=== PATIENT | male | born 1960 | race Caucasian/White ===

== ENCOUNTER 2019-06-16 17:49 | Emergency (ER) | payer MEDICAID, SELFPAY ==
[2019-06-16] VITALS (8 sets, daily range): BP systolic 119–148; BP diastolic 68–80; PULSE 65–87; RESP 16–18; TEMP 36.7; O2SAT 94–98; BMI 56.0
--- NOTE | 2019-06-16 17:57 | NURSING ---
NO OLD EKGS
--- NOTE | 2019-06-16 18:21 | EKG12_ITS ---
Test Reason : CP Blood Pressure : / mmHG Vent. Rate : 081 BPM Atrial Rate : 081 BPM P-R Int : 136 ms QRS Dur : 074 ms QT Int : 376 ms P-R-T Axes : 019 025 054 degrees QTc Int : 436 ms Sinus rhythm with Premature atrial complexes with Aberrant conduction Otherwise normal ECG Confirmed by KAVITHA LUCERO, MADELINE ([id number]), editor & co founder ELIEL DUMONT ([id number]) on 06/18/2019 10:07:57 AM Referred By: Satya Boyce Confirmed By:DARCY PLUMMER MD
--- NOTE | 2019-06-16 18:30 | RAD_ITS ---
STUDY: X-RAY CHEST REASON FOR EXAM: Male, 59 years old. Chest pain TECHNIQUE: Frontal view of the chest COMPARISON: None. FINDINGS: Pulmonary vascular prominence is present. There is no dipti edema or consolidation. There are no pleural effusions. There is no pneumothorax. The heart is enlarged. The visualized osseous structures are within normal limits. RAD/Chest 1 View (Portable) IMPRESSION: Pulmonary vascular prominence without dipti edema or consolidation. Cardiomegaly. Electronically Signed: Cayetano Steward, at 19:26 EST Tel , Service support ,
[2019-06-16] MEDS: Nitroglycerin SL (ED/IMG/CATH) 0.4 MG TABLET SUBLINGUAL ×3 (18:37→18:55)
[2019-06-16 18:39] LABS: Absolute Lymphocyte Count 2.32 X10^3/uL (0.83-4.51); Basophil# 0.06 X10^3/uL; Basophil% 0.6 % (0-1); Eosinophil# 0.19 X10^3/uL; Eosinophils% 1.9 % (0-5); Hemoglobin 10.3 g/dL (13.0-16.5); Lymphocyte # 2.32 X10^3/ul (4.0); Lymphocyte % 22.9 % (19-41); Mean Corp Hgb Conc 30.3 g/dL (32-36); Mean Corpuscular Hgb 27.4 pg (27.0-32.0); Mean Corpuscular Volume 90.4 fL (80-94); Mean Platelet Vol. 10.1 fl (6.2-12.0); Monocyte# 0.47 X10^3/uL; Monocyte% 4.6 % (0-10); NRBC Flagged by Analyzer 0 % (0-5); Neutrophil # 7.02 X10^3/uL (2.7-7.7); Neutrophil % 69.5 % (47-70); Platelet Count 250 K/mm3 (150-450); RBC Distribution Width CV 15.6 % (11.6-14.6); RBC Distribution Width SD 50.8 fl (35.1-43.9); Red Blood Count 3.76 M/mm3 (4.6-6.2); White Blood Count 10.1 K/mm3 (4.4-11.0)
[2019-06-16 19:15] LABS: Anion Gap 3 (5-15); BUN 11 mg/dL (7-18); BUN/Creat Ratio 12.1 RATIO (10-20); Chloride 109 mmol/L (98-107); Creatinine, Serum 0.91 mg/dL (0.70-1.30); EST Glomerular Filtration Rate 91 mL/min (>60); Est Glom Filt Rate - Afr Amer 111 mL/min (>60); Estimated Creatinine Clearance 77.91 ml/min; Glucose 85 mg/dL (74-106); Potassium 4.1 mmol/L (3.5-5.1); Sodium Level 139 mmol/L (136-145)
--- NOTE | 2019-06-16 22:17 | ED.DCSUM_ITS ---
- ER Visit Summary Date of Service: 06/16/19 Chief Complaint: Chest pain History of Present Illness: The patient is a 59 M who presents with chest pain that began today. Patient states he was walking when the pain began. Patient states the pain is over the left chest. Patient states he did take a sublingual nitroglycerin which did help however his pain returned after this. Patient states nothing makes it worse. Patient admits to nausea but denies any vomiting. Patient denies any diaphoresis. Patient denies any shortness of breath. Patient does admit to some palpitations. Patient denies any cough or fevers. Patient has a history of hypertension, hypercholesterolemia and coronary artery disease. Patient also has a family history of coronary artery disease. Physical Examination: Vital signs are stable. Patient is afebrile. Patient is in no acute distress. Oral mucosa is pink and moist. Neck is supple. Trachea is midline. There is no JVD noted. Heart was regular rate and rhythm. Lungs are clear and equal bilaterally. Abdomen is soft. Bowel sounds are normal. There is no tenderness. There is no rebound or guarding noted. Skin is warm dry. Cranial nerves II through XII are intact. There are no focal motor or sensory deficits noted. Extremities are intact. There is no calf tenderness or edema. Test Results: EKG showed normal sinus rhythm with a rate of 81. There is occasional PAC and PVC. There are no acute ST or T wave changes. CBC and basic metabolic profile were within normal limits. Troponin was normal. Portable chest x-ray shows mild pulmonary vascular congestion but no acute cardiopulmonary process. A delta troponin was obtained and was normal. Emergency Department Course and Treatment: Patient was advised that this is low risk for acute cardiac event. Patient was instructed to follow-up with his primary care physician and 5 to 7 days. Patient understood and was agreeable with the plan. All questions were answered. Disposition: Discharge home Impression: Chest pain of uncertain etiology This note was generated with [employer] dictation software. It may contain incorrect words, spelling, and punctuation that were not noted in review of the chart prior to signing ED Disposition - Plan for ED Patient: Disposition: Home or Assisted Living Diagnosis: Chest pain of uncertain etiology Instructions: CHEST PAIN, Uncertain Cause Referrals: Satya Boyce DO [Primary Care Provider] - 5-7 Days
== END 2019-06-16 22:47 | disposition home or self-care (01) ==
PROVIDERS: Emergency Provider Emergency Medicine; PCP Family Medicine; Referring Provider Family Medicine
DX: R07.9 Chest pain, unspecified (principal); R11.0 Nausea; I49.1 Atrial premature depolarization; I49.3 Ventricular premature depolarization; E66.9 Obesity, unspecified; I11.0 Hypertensive heart disease with heart failure; I50.9 Heart failure, unspecified; E78.00 Pure hypercholesterolemia, unspecified; I25.10 Atherosclerotic heart disease of native coronary artery without angina pectoris; K57.90 Diverticulosis of intestine, part unspecified, without perforation or abscess without bleeding; Z86.73 Personal history of transient ischemic attack (TIA), and cerebral infarction without residual deficits; Z86.711 Personal history of pulmonary embolism; Z79.82 Long term (current) use of aspirin; Z79.02 Long term (current) use of antithrombotics/antiplatelets; Z79.899 Other long term (current) drug therapy
CPT/HCPCS: 36415; 71045; 80048; 84484; 85025; 93005; 99284; A4216

== ENCOUNTER → 2022-10-24 | Outpatient (REF) | payer MEDICAID, SELFPAY ==
[2022-10-24 09:31] LABS: Erythrocyte Sedimentation Rate 42 mm/hr (0-20)
[2022-10-24 09:33] LABS: Hematocrit 35.1 % (40-54); Hemoglobin 10.5 g/dL (13.0-16.5); Mean Corp Hgb Conc 29.9 g/dL (32-36); Mean Corpuscular Hgb 28.5 pg (27.0-32.0); Mean Corpuscular Volume 95.4 fL (80-94); Mean Platelet Vol. 9.8 fl (6.2-12.0); Platelet Count 274 K/mm3 (150-450); RBC Distribution Width CV 13.6 % (11.6-14.6); RBC Distribution Width SD 47.8 fl (35.1-43.9); Red Blood Count 3.68 M/mm3 (4.6-6.2); White Blood Count 10.2 K/mm3 (4.4-11.0)
[2022-10-24 09:35] LABS: ALB/GLOB Ratio 0.7 RATIO (0.9-2.4); AST(SGOT) 13 U/L (15-37); Alanine Aminotransfer ALT/SGPT 10 U/L (16-61); Albumin, Serum 2.7 g/dL (3.2-5.0); Alkaline Phosphatase 176 U/L (45-117); Anion Gap 6 (5-15); BUN 17 mg/dL (7-18); BUN/Creat Ratio 17.8 RATIO (10-20); Calcium,Total 8.8 mg/dL (8.5-10.1); Chloride 108 mmol/L (98-107); Cholesterol 88 mg/dL (200); Creatinine, Serum 0.96 mg/dL (0.70-1.30); EST Glomerular Filtration Rate 85 mL/min (>60); Est Glom Filt Rate - Afr Amer 103 mL/min (>60); Globulin 4.1 g/dL (2.2-4.2); Glucose 146 mg/dL (74-106); High Density Lipoprotein 36 mg/dL; PSA,Total - Annual Screen 0.29 ng/mL (0.00-4.00); Potassium 4.7 mmol/L (3.5-5.1); Protein, Total 6.8 g/dL (6.4-8.2); Sodium Level 140 mmol/L (136-145); Thyroid Stim Hormone (TSH) 4.23 uIU/mL (0.358-3.74); Triglycerides 127 mg/dL; Very Low Density Lipoprotein 25 mg/dL (5-40)
[2022-10-24 09:43] LABS: Hemoglobin A1c 5.9 % (3.8-5.6)
== END | disposition home or self-care (01) ==
LOC: OLS.ACW300 05:00
PROVIDERS: PCP Family Medicine; Visit Provider Family Medicine
DX: E11.9 Type 2 diabetes mellitus without complications (principal); M54.50 Low back pain, unspecified; R27.9 Unspecified lack of coordination; E78.00 Pure hypercholesterolemia, unspecified; I67.2 Cerebral atherosclerosis; E03.9 Hypothyroidism, unspecified
CPT/HCPCS: 36415; 80053; 80061; 83036; 84153; 84443; 85027; 85652; G0103

== ENCOUNTER → 2023-04-04 | Outpatient (REF) | payer MEDICAID, SELFPAY ==
[2023-04-04 10:36] LABS: T3 Total - Triiodothyronine 0.88 ng/mL (0.6-1.81)
[2023-04-04 10:57] LABS: Thyroid Stim Hormone (TSH) 2.55 uIU/mL (0.358-3.74)
== END | disposition home or self-care (01) ==
LOC: OLS.ACW300 05:00
PROVIDERS: PCP Family Medicine; Visit Provider Family Medicine
DX: E03.9 Hypothyroidism, unspecified (principal)
CPT/HCPCS: 36415; 84436; 84443; 84480

== ENCOUNTER → 2023-08-28 | Outpatient (REF) | payer MEDICAID, SELFPAY ==
[2023-08-28 08:23] LABS: Hematocrit 37.5 % (40-54); Hemoglobin 11.9 g/dL (13.0-16.5); Mean Corp Hgb Conc 31.7 g/dL (32-36); Mean Corpuscular Hgb 30.4 pg (27.0-32.0); Mean Corpuscular Volume 95.9 fL (80-94); Mean Platelet Vol. 9.9 fl (6.2-12.0); Platelet Count 275 K/mm3 (150-450); RBC Distribution Width CV 13.1 % (11.6-14.6); Red Blood Count 3.91 M/mm3 (4.6-6.2); White Blood Count 9.3 K/mm3 (4.4-11.0)
[2023-08-28 08:41] LABS: Vitamin D,25 Hydroxy 11.8 ng/mL
[2023-08-28 09:11] LABS: ALB/GLOB Ratio 0.8 RATIO (0.9-2.4); AST(SGOT) 15 U/L (15-37); Alanine Aminotransfer ALT/SGPT 10 U/L (16-61); Albumin, Serum 3.5 g/dL (3.2-5.0); Alkaline Phosphatase 163 U/L (45-117); Anion Gap 5 (5-15); BUN 12 mg/dL (7-18); BUN/Creat Ratio 11.3 RATIO (10-20); Calcium,Total 9.1 mg/dL (8.5-10.1); Chloride 107 mmol/L (98-107); Cholesterol 102 mg/dL (200); Creatinine, Serum 1.06 mg/dL (0.70-1.30); EST Glomerular Filtration Rate 75 mL/min (>60); Est Glom Filt Rate - Afr Amer 91 mL/min (>60); Globulin 4.4 g/dL (2.2-4.2); Glucose 104 mg/dL (74-106); High Density Lipoprotein 38 mg/dL; Magnesium 2.4 mg/dL (1.6-2.6); Potassium 4.1 mmol/L (3.5-5.1); Protein, Total 7.9 g/dL (6.4-8.2); Sodium Level 138 mmol/L (136-145); Thyroid Stim Hormone (TSH) 3.03 uIU/mL (0.358-3.74); Triglycerides 122 mg/dL; Very Low Density Lipoprotein 24 mg/dL (5-40)
[2023-08-28 09:26] LABS: Hemoglobin A1c 5.3 % (3.8-5.6)
== END | disposition home or self-care (01) ==
LOC: OLS.ACW300 05:00
PROVIDERS: PCP Family Medicine; Visit Provider Family Medicine
DX: E11.9 Type 2 diabetes mellitus without complications (principal); R27.9 Unspecified lack of coordination; E78.00 Pure hypercholesterolemia, unspecified; E03.9 Hypothyroidism, unspecified; I67.2 Cerebral atherosclerosis
CPT/HCPCS: 36415; 80053; 80061; 82306; 83036; 83735; 84443; 85027

== ENCOUNTER → 2023-10-01 | Outpatient (REF) | payer MEDICAID, SELFPAY ==
[2023-10-01 07:59] LABS: T3 Total - Triiodothyronine 1.04 ng/mL (0.6-1.81)
[2023-10-01 08:12] LABS: T4 Total, Thyroxin 7.8 ug/dL (4.5-12.1); Thyroid Stim Hormone (TSH) 3.64 uIU/mL (0.358-3.74)
== END | disposition home or self-care (01) ==
LOC: OLS.ACW300 05:00
PROVIDERS: PCP Family Medicine; Visit Provider Family Medicine
DX: E03.9 Hypothyroidism, unspecified (principal)
CPT/HCPCS: 36415; 84436; 84443; 84480

== ENCOUNTER → 2024-01-05 | Outpatient (REF) | payer MEDICAID, SELFPAY ==
[2024-01-05 10:08] LABS: Thyroid Stim Hormone (TSH) 2.52 uIU/mL (0.358-3.74)
[2024-01-05 11:24] LABS: Hemoglobin A1c 5.4 % (3.8-5.6)
== END | disposition home or self-care (01) ==
LOC: OLS.ACW300 05:00
PROVIDERS: PCP Family Medicine; Visit Provider Family Medicine
DX: E11.9 Type 2 diabetes mellitus without complications (principal); Z79.899 Other long term (current) drug therapy
CPT/HCPCS: 36415; 83036; 84443

== ENCOUNTER → 2024-04-06 | Outpatient (REF) | payer MEDICAID, SELFPAY ==
[2024-04-06 11:17] LABS: Hemoglobin A1c 5.7 % (3.8-5.6)
== END | disposition home or self-care (01) ==
LOC: OLS.ACW300 04:00
PROVIDERS: PCP Family Medicine; Referring Provider Family Medicine; Visit Provider Family Medicine
DX: E11.9 Type 2 diabetes mellitus without complications (principal); Z79.899 Other long term (current) drug therapy
CPT/HCPCS: 36415; 83036

== ENCOUNTER → 2024-05-03 | Outpatient (REF) | payer MEDICAID, SELFPAY ==
[2024-05-03 08:18] LABS: Hematocrit 34.7 % (40-54); Hemoglobin 10.6 g/dL (13.0-16.5); Mean Corp Hgb Conc 30.5 g/dL (32-36); Mean Corpuscular Volume 95.1 fL (80-94); Platelet Count 246 K/mm3 (150-450); RBC Distribution Width CV 13.1 % (11.6-14.6); RBC Distribution Width SD 45.5 fl (35.1-43.9); Red Blood Count 3.65 M/mm3 (4.6-6.2); White Blood Count 8.8 K/mm3 (4.4-11.0)
[2024-05-03 08:59] LABS: T3 Total - Triiodothyronine 1.04 ng/mL (0.6-1.81)
[2024-05-03 09:01] LABS: Anion Gap 7 (5-15); BUN 17 mg/dL (7-18); BUN/Creat Ratio 16.7 RATIO (10-20); Calcium,Total 9.3 mg/dL (8.5-10.1); Chloride 107 mmol/L (98-107); Cholesterol 89 mg/dL (200); Creatinine, Serum 1.02 mg/dL (0.70-1.30); EST Glomerular Filtration Rate 79 mL/min (>60); Est Glom Filt Rate - Afr Amer 95 mL/min (>60); Glucose 121 mg/dL (74-106); High Density Lipoprotein 32 mg/dL; Potassium 4.4 mmol/L (3.5-5.1); Sodium Level 139 mmol/L (136-145); T4 Total, Thyroxin 9.3 ug/dL (4.5-12.1); Triglycerides 151 mg/dL; Very Low Density Lipoprotein 30 mg/dL (5-40)
[2024-05-03 10:00] LABS: Hemoglobin A1c 5.6 % (3.8-5.6)
== END | disposition home or self-care (01) ==
LOC: OLS.ACW300 05:00
PROVIDERS: PCP Family Medicine; Visit Provider Family Medicine
DX: E03.9 Hypothyroidism, unspecified (principal); E11.9 Type 2 diabetes mellitus without complications; R27.9 Unspecified lack of coordination; E78.00 Pure hypercholesterolemia, unspecified; I67.2 Cerebral atherosclerosis; E66.01 Morbid (severe) obesity due to excess calories
CPT/HCPCS: 36415; 80048; 80061; 83036; 84436; 84443; 84480; 85027

== ENCOUNTER → 2024-07-07 05:00 | Outpatient (REF) | payer MEDICAID, SELFPAY ==
[2024-07-07 08:33] LABS: Hemoglobin A1c 5.3 % (3.8-5.6)
== END ==
LOC: OLS.ACW300 05:00
PROVIDERS: PCP Family Medicine; Visit Provider Family Medicine
DX: E11.9 Type 2 diabetes mellitus without complications (principal); R27.9 Unspecified lack of coordination; E78.00 Pure hypercholesterolemia, unspecified; I67.2 Cerebral atherosclerosis; E03.9 Hypothyroidism, unspecified; E66.01 Morbid (severe) obesity due to excess calories
CPT/HCPCS: 36415; 83036

== ENCOUNTER → 2024-07-14 04:00 | Outpatient (REF) | payer MEDICAID, SELFPAY ==
[2024-07-14 07:53] LABS: Hemoglobin A1c 5.6 % (3.8-5.6)
== END ==
LOC: OLS.ACW300 04:00
PROVIDERS: PCP Family Medicine; Referring Provider Family Medicine; Visit Provider Family Medicine
DX: E11.9 Type 2 diabetes mellitus without complications (principal); R27.9 Unspecified lack of coordination; E78.00 Pure hypercholesterolemia, unspecified; I67.2 Cerebral atherosclerosis; E03.9 Hypothyroidism, unspecified; E66.01 Morbid (severe) obesity due to excess calories
CPT/HCPCS: 36415; 83036

== ENCOUNTER → 2024-08-27 | Outpatient (REF) | payer MEDICAID, SELFPAY ==
[2024-08-27 08:48] LABS: Vitamin D,25 Hydroxy 10.8 ng/mL (30-100)
== END | disposition home or self-care (01) ==
LOC: OLS.ACW300 05:00
PROVIDERS: PCP Family Medicine; Visit Provider Family Medicine
DX: Z79.899 Other long term (current) drug therapy (principal); E11.9 Type 2 diabetes mellitus without complications; E03.9 Hypothyroidism, unspecified; E78.00 Pure hypercholesterolemia, unspecified
CPT/HCPCS: 36415; 82306

== ENCOUNTER → 2024-10-04 | Outpatient (REF) | payer MEDICAID, SELFPAY ==
[2024-10-04 10:29] LABS: Hemoglobin A1c 5.7 % (<=5.6)
== END | disposition home or self-care (01) ==
LOC: OLS.ACW100 04:00
PROVIDERS: PCP Family Medicine; Referring Provider Family Medicine; Visit Provider Family Medicine
DX: E11.9 Type 2 diabetes mellitus without complications (principal); Z79.899 Other long term (current) drug therapy
CPT/HCPCS: 36415; 83036

== ENCOUNTER → 2024-11-01 05:00 | Outpatient (REF) | payer MEDICAID, SELFPAY ==
[2024-11-01 08:40] LABS: Hematocrit 37.1 % (40-54); Hemoglobin 11.2 g/dL (13.0-16.5); Mean Corp Hgb Conc 30.2 g/dL (32-36); Mean Corpuscular Hgb 28.7 pg (27.0-32.0); Mean Corpuscular Volume 95.1 fL (80-94); Mean Platelet Vol. 9.9 fl (6.2-12.0); Platelet Count 250 K/mm3 (150-450); RBC Distribution Width CV 13.3 % (11.6-14.6); RBC Distribution Width SD 46.6 fl (35.1-43.9); White Blood Count 9.1 K/mm3 (4.4-11.0)
[2024-11-01 09:34] LABS: Hemoglobin A1c 5.8 % (<=5.6)
[2024-11-01 10:23] LABS: Anion Gap 13 (5-15); BUN 14 mg/dL (4-19); BUN/Creat Ratio 17.1 RATIO (10-20); Calcium,Total 9.4 mg/dL (7.6-11.0); Carbon Dioxide 22.7 mmol/L (21.0-32.0); Chloride 104 mmol/L (98-108); Cholesterol 132 mg/dL (<=200); Creatinine, Serum 0.82 mg/dL (0.70-1.20); EST Glomerular Filtration Rate 99 (>60); Glucose 99 mg/dL (70-99); High Density Lipoprotein 36 mg/dL; Low Density Lipoprotein Calc. 65 mg/dL; Potassium 4.3 mmol/L (3.3-5.1); Sodium Level 140 mmol/L (133-145); T3 Total - Triiodothyronine 0.81 ng/mL (0.80-2.00); Triglycerides 156 mg/dL; Very Low Density Lipoprotein 31 mg/dL (5-40); cholesterol:hdl ratio screen 3.71
== END ==
LOC: OLS.ACW200 05:00
PROVIDERS: PCP Family Medicine; Visit Provider Family Medicine
DX: E11.9 Type 2 diabetes mellitus without complications (principal); E03.9 Hypothyroidism, unspecified; E78.00 Pure hypercholesterolemia, unspecified; E66.01 Morbid (severe) obesity due to excess calories; I67.2 Cerebral atherosclerosis
CPT/HCPCS: 36415; 80048; 80061; 83036; 84436; 84443; 84480; 85027

== ENCOUNTER → 2024-12-06 04:00 | Outpatient (REF) | payer MEDICAID, SELFPAY ==
--- OUTSIDE RECORDS SUMMARY | 2024-12-06 03:38 | XMS RPT_ITS | CCD ---
Author Organization [facility] Care Team Providers Care Curriculum Coordinator Name Role Phone Stecyk, Orest Unavailable Unavailable Stecyk, Orest Unavailable Unavailable Medina, Neelesh Unavailable Unavailable Do Hernandez Unavailable Unavailable Madhun, Zuhayr Unavailable Unavailable Ramirez Trotter Unavailable Unavailable BONYO, HERNADEZ S Unavailable Unavailable ODEBODE, MOJIBADE Unavailable Unavailable ODEBODE, MOJIBADE Unavailable Unavailable TOPARLI, CHARMAINE Unavailable Unavailable BOZORGI, ELENA Unavailable Unavailable HICKEY, RAFY O Unavailable Unavailable SUJEY, KHALEEL Unavailable Unavailable SUJEY, KHALEEL Unavailable Unavailable CECY RICHARDSON Unavailable Unavailable GODALE, LISA Unavailable Unavailable BONYO, HERNADEZ S Unavailable Unavailable Bonyo, Hernadez S Primary Care Provider [phone] BONYO, HERNADEZ S Primary Care Unavailable ESTRELLA HERNANDEZ Admitting Unavailable ESTRELLA HERNANDEZ Attending Unavailable Bonyo, Hernadez S Primary Care Provider [phone] KAR STRICKLAND Attending Unavailable PROVIDER, UNKNOWN Admitting Unavailable ALBERTO HUMPHREYS Primary Care Unavailable Carli DOSatya Primary Care Provider [phone] Satya Boyce DO Primary Care Provider Bonyo, Hernadez S Unavailable Bonyo DO, Satya Criss Primary Care Provider [phone] Bonyo DO, Satya Criss Primary Care Provider BONYO, HERNADEZ CRISS Primary Care Unavailable BONYO, HERNADEZ CRISS Primary Care Unavailable Bonyo DO, Satya Criss Primary Care Provider Bonyo DO, Hernadez S Primary Care Provider [phone] Bonyo DO, Dr. Hernadez Primary Care Provider [phone] Chuy Mariee Attending Provider Unavailabl e Chuy Mariee Referring Provider Unavailfer e Chuy Mariee Attending Unavailable Bonyo, Hernadez Primary Care Unavailable Chuy Mariee Attending Unavailable Bonyo, Hernadez Primary Care Unavailable Chuy Mariee Attending Unavailable Bonyo, Hernadez Primary Care Unavailable Chuy Mariee Referring Unavailable Chuy Mariee Attending Unavailable Bonyo, Hernadez Primary Care Unavailable Chuy Mariee Attending Unavailable Bonyo, Hernadez Primary Care Unavailable Chuy Mariee Referring Unavailable Chuy Mariee Attending Unavailable Bonyo, Hernadez Primary Care Unavailable Chuy Mariee Attending Unavailable Bonyo, Hernadez Primary Care Unavailable Chuy Mariee Attending Unavailable Bonyo, Hernadez Primary Care Unavailable Chuy Mariee Referring Unavailable Allergies Allergy Classification Reported Allergen(s) Allergy Type Date of Onset Reaction(s) Facility (2 sources) ketorolac Drug Allergy 7 [facility] Repository (1 source) nalbuphine Drug Allergy 7 [facility] Repository (3 sources) nalbuphine; Translations: [NALBUPHINE] Drug Allergy 6 [facility] Repository (13 sources) Fish derivative; Translations: [FISH DERIVED] Propensity to adverse reactions to drug (disorder) 7 [facility] Repository (20 sources) Ketorolac; Translations: [KETOROLAC TROMETHAMINE] Drug Allergy 0 [facility] Repository (20 sources) Nalbuphine; Translations: [NALBUPHINE HCL] Drug Allergy 6 Other: See Comments [facility] Other [place] Repository (8 sources) Fish-Derived Products; Translations: [FISH-DERIVED PRODUCTS] Propensity to adverse reactions to drug 6 [facility] [place], [place] (1 source) Ketorolac Drug Allergy [facility] Repository (1 source) Nalbuphine Drug Allergy [facility] Repository (4 sources) Ketorolac Drug Allergy 0 Unknown [place] (4 sources) Nalbuphine Drug Allergy 0 Unknown [place] Medications Current Medications Medication Drug Class(es) Dates Sig (Normalized) Sig (Original) acetaminophen 325 mg oral tablet (20 sources) Start: 06-17-2019 take 650 mg by mouth every four hours as needed for pain, then take 4000 mg by mouth every twenty-four hours as needed for pain 650 mg, Oral, EVERY 4 HOURS PRN, Pain Mild (1-3), Fever, pain, Starting Pauline 06/17/19 at 2307 Maximum dose of acetaminophen is 4000 mg from all sources in 24 hours. Start: 05-07-2019 take 650 mg by mouth every four hours as needed for pain, then take 4000 mg by mouth every twenty-four hours as needed for pain 650 mg, Oral, EVERY 4 HOURS PRN, Pain Mild (1-3), Starting 05/07/19 at 0633 Maximum dose of acetaminophen is 4000 mg from all sources in 24 hours. Start: 03-20-2019 take 650 mg by mouth every four hours as needed for pain, then take 4000 mg by mouth every twenty-four hours as needed for pain 650 mg, Oral, EVERY 4 HOURS PRN, Pain Moderate (4-6), Starting 03/20/19 at 1048 Maximum dose of acetaminophen is 4000 mg from all sources in 24 hours. Start: 03-09-2019 take 650 mg by mouth every four hours as needed for pain, then take 4000 mg by mouth every twenty-four hours as needed for pain 650 mg, Oral, EVERY 4 HOURS PRN, Pain Mild (1-3), Pain Moderate (4-6), Starting 03/09/19 at 0102 Maximum dose of acetaminophen is 4000 mg from all sources in 24 hours. take 2 tablets by [facility] every six hours as needed acetaminophen (TYLENOL) 325 mg tablet Take 650 mg by mouth every 6 hours as needed for Pain or Fever. 0 Active End: 01-27-2020 take 2 tablets by mouth every four hours as needed for pain acetaminophen (TYLENOL) 325 MG tablet Take 650 mg by mouth every 4 hours as needed for Pain 0 01/27/2020 Discontinued (Therapy completed) Comment on above: Take 650 mg by mouth every 6 hours as needed for Pain or Fever. acetaminophen 325 mg / HYDROcodone bitartrate 5 mg oral tablet (4 sources) Opioid Agonist take 1 tablet by mouth every eight hours as needed HYDROcodone-acet aminophen (NORCO) 5-325 mg per tablet Take 1 tablet by mouth every 8 hours as needed for pain. 0 Active Comment on above: Take 1 tablet by elzbieta th every 8 hours as needed for pain. amphetamine aspartate 5 mg / amphetamine sulfate 5 mg / dextroamphetamine saccharate 5 mg / dextroamphetamine sulfate 5 mg oral tablet (20 sources) Central Nervous System Stimulant Start: 9 End: 0 take 1 tablet by mouth twice daily Dextroamphetamin e-Amphetamine 20 MG tablet Active 20 mg PO TWICE A DAY June 16, 2019 1:00am Start: 05-19-2018 End: 2019 take 1 tablet by mouth once daily amphetamine-dextroamphetamine (ADDERALL) 20 MG tablet Indications: Mood disorder (HCC) Take 1 tablet by mouth daily for 7 days.. 7 tablet 0 05/19/2018 2019 Discontinued (LIST CLEANUP) Comment on above: Take 1 tablet by elzbieta th twice daily for 7 days. Take 1 tablet by elzbieta th twice daily for 5 days. aspirin 81 mg chewable tablet (20 sources) Platelet Aggregation Inhibitor, Nonsteroidal Anti-inflammatory Drug Start: 06-18-2019 take 81 mg by mouth once daily 81 mg, Oral, DAILY, First dose on Fri06/18/19 at 0900 Start: 06-16-2019 take 1 tablet by elzbieta th once daily Aspirin 81 MG tablet,chewable Active 81 mg PO DAILY@0800 June 16, 2019 1:00am Start: 05-07-2019 take 81 mg by mouth once daily 81 mg, Oral, DAILY, First dose on Fri05/07/19 at 0900 Start: 03-20-2019 take 81 mg by mouth once daily 81 mg, Oral, DAILY, First dose on 03/20/19 at 1115 Start: 03-09-2019 take 81 mg by mouth once daily 81 mg, Oral, DAILY, First dose on Fri03/09/19 at 0900 Start: 03-08-2019 End: 03-08-2019 aspirin EC tablet 325 mg take 1 tablet by elzbieta th once daily aspirin 81 MG tablet Take 81 mg by mouth daily. 0 Active Comment on above: Take 1 tablet by elzbieta th once daily. Pain;Safety Deficits;Decreased ActivityTolerance;Decreased Strength;Functional Mobility ImpairmentPatient /Caregiver Goals: Go To RehabGoals for Plan of Care:Transfer sit to/from stand with: Modified IndependentAmbulate with: Modified IndependentDistance: 150'Device: Wheeled WalkerAmbulate up and down steps with: Minimal AssistanceNumber of steps: 7Device: Rail;CaneRehab Potential: FairPLAN:Treatment Frequency (times per week): 3 Current admissionTreatment Interventions: Education;Functional MobilityTraining;Strengtheni ngPlan of Care developed with: PatientTREATMENT INTERVENTIONS:Therapy Diagnosis: Ataxic gaitInterventions Provided: Evaluation$ Evaluation-Moderate (35431) Billed Units: 1 unitTotal Treatment Time (minutes): 20FUNCTIONAL G CODE:PT 6 Clicks Score: 19 (06/08/18 1000)Mobility: Walking and Moving Around Current Status (G8978): CK ()Mobility: Walking and Moving Around Goal Status (G8979): CJ ()Based on clinical assessment and the score on the 6 Clicks FunctionalAssessment Tool, the G code and corresponding severity modifiers aredocumented above.SUBJECTIVE:Current Hospital Course: Chart reviewed; Patient admitted s/p fall inwhich his L LE gave out due to pain.Reason for Physical Therapy Consult : fallRelevant Past Medical History: chronic LBP, L SEAMUS, AVN of R hip, CHF, CAD,OK, obesity, HTN, back sxPatient Report: "I had one back surgery and I don't want another. Thefirst one didn't work."Home EnvironmentPatient Lives With: Self/AloneAssistance Available: NoneEntry To Home: Stairs;With RailNumber Of Stairs Into Home: 7Number Of Stairs To Bed/Bath: FlightStairs to Bed/Bath with: Unilateral RailTub/Shower Type: Tub showerLaundry: Go[facility] to [facility] Owned: Cane;Sock Aide;Shower ChairPrior Functional Level: Within Functional LimitsOBJECTIVE:CURRENT FUNCTIONAL STATUS:Current Functional Mobility Assist Level Additional InformationRolling IndependentSupine to Sit IndependentSit to Supine IndependentScooting IndependentSit to Stand Stand By AssistanceStand to Sit Stand By AssistanceBed to ChairToilet/CommodeGait Minimal Assistance Gait Device: Wheeled Walker Gait Distance (feet): 5 stepsStairsCurb StepCar TransferGait Deviations Right Lower Extremity: Step length decreasedGait Deviations Left Lower Extremity: Weight bearing decreased;Stance timedecreased;Heel strike during initial stance decreased;Push-off duringterminal stance decreasedGeneral Gait Deviations: Cecy decreasedActivity Tolerance: Standing ActivityStanding Activity: Walking and transfersStanding Activity Tolerance (in minutes): 1JH-HLM: 5: Standing (1 or more minutes)Please see discipline specific clinical documentation flowsheet forcomplete details for this therapy evaluation/treatment.SUNNY RE: Maryana Wooten PT PATIENT NAME: Natalie Botello SucciDATE: June 08, 2018 : 10:31 AM [facility] CBC and Differentialon 06-07 Abs Baso <0.03 Normal <0.11 [facility] Comment on above: Performed By: #### C BCJUANJOSE BRIONES, MG1 ####[place] [id number] [address] Abs [place] 0.18 k/uL Normal <0.87 [facility] Comment on above: Performed By: #### C BCSADEF CMP, MG1 ####[facility] [phone] Abs Neut 8.80 k/uL High 1.45-7.50 [facility] Comment on above: Performed By: #### C BCANALI, CMP, MG1 ####[place] [address] [address] [phone] Basophils/100 WBC Auto (Bld) 0.1 % [facility] Comment on above: Performed By: #### C BCDIF, CMP, MG1 ####[place] [id number] Eosinophils Auto #/vol (Bld) 10*3/uL Normal <0.46 [facility] Comment on above: Performed By: #### C BCDIF, CMP, MG1 ####[place] [id number] Eosinophils/100 WBC Auto (Bld) 0.0 % Normal [facility] Comment on above: Performed By: #### C BCDIF, CMP, MG1 ####[place] [id number] Erythrocyte distribution width Auto Ratio (RBC) 14.4 % Normal 11.5-15.0 [facility] Comment on above: Performed By: #### C BCDIF, CMP, MG1 ####[place] [id number] Hematocrit Auto Volume Fraction (Bld) 37.9 % Low 39.0-51.0 [facility] Comment on above: Performed By: #### C BCDIF, CMP, MG1 ####[place] [id number] Hemoglobin mass conc (Bld) 12.1 g/dL Low 13.0-17.0 [facility] Comment on above: Performed By: #### C BCDIF, CMP, MG1 ####[place] [id number] Lymphocytes Auto #/vol (Bld) 0.73 10*3/uL Low 1.00-4.00 [facility] Comment on above: Performed By: #### C BCDIF, CMP, MG1 ####[place] [id number] Lymphocytes/100 WBC Auto (Bld) 7.5 % Normal [facility] Comment on above: Performed By: #### C BCDIF, CMP, MG1 ####[place] [id number] MCH Auto Entitic mass (RBC) 28.2 pG Normal 26.0-34.0 [facility] Comment on above: Performed By: #### C BCDIF CMP, MG1 ####[place] [id number] MCHC Auto mass conc (RBC) 31.9 g/dL Normal 30.5-36.0 [facility] Comment on above: Performed By: #### C BCDIF, CMP, MG1 ####[place] [id number] MCV Auto Entitic volume (RBC) 88.3 fL Normal 80.0-100.0 [facility] Comment on above: Performed By: #### C BCDIF CMP, MG1 ####[place] [id number] Monocytes/100 WBC Auto (Bld) 1.9 % Normal [facility] Comment on above: Performed By: #### C BCDIF, CMP, MG1 ####[place] [id number] Neutrophils/100 WBC Auto (Bld) 90.5 % Normal [facility] Comment on above: Performed By: #### C BCDIF, CMP, MG1 ####[place] [id number] NRBCs 0.0 /100 WBC Normal 0 [facility] Comment on above: Performed By: #### C BCDIF, CMP, MG1 ####[place] [id number] Platelet mean volume Auto Entitic volume (Bld) 9.8 fL Normal 9.0-12.7 [facility] Comment on above: Performed By: #### C BCDIF, CMP, MG1 ####[place] [id number] Platelets Auto #/vol (Bld) 326 10*3/uL Normal 150-400 [facility] Comment on above: Performed By: #### C BCDIF, CMP, MG1 ####[address] RBC Auto #/vol (Bld) 4.29 10*6/uL Normal 4.20-6.00 [facility] Comment on above: Performed By: #### C BCDIF, CMP, MG1 ####[place] [id number] WBC Auto #/vol (Bld) 9.72 10*3/uL Normal 3.70-11.00 [facility] Comment on above: Performed By: #### C BCDIF, CMP, MG1 ####[place] [id number] Comp Metabolic Panelon 06-07 Albumin mass conc 4.2 g/dL Normal 3.9-4.9 [facility] Comment on above: Performed By: #### C BCDIF, CMP, MG1 ####[place] [id number] ALP enzyme act/vol 177 U/L High 38-113 [facility] Comment on above: Performed By: #### C BCDIF, CMP, MG1 ####[place] [id number] ALT enzyme act/vol 9 U/L Low 10-54 [facility] Comment on above: Performed By: #### C BCDIF, CMP, MG1 ####[place] [id number] Anion gap 3 molar conc 18 mmol/L Normal 9-18 [facility] Comment on above: Performed By: #### C BCDIF, CMP, MG1 ####[place] [id number] AST enzyme act/vol 18 U/L Normal 14-40 [facility] Comment on above: Performed By: #### C BCDIF, CMP, MG1 ####[place] [id number] Bilirubin mass conc 0.5 mg/dL Normal 0.2-1.3 [facility] Comment on above: Performed By: #### C BCDIF, CMP, MG1 ####[place] [address] [place] [id number] Calcium mass conc 9.4 mg/dL Normal 8.5-10.2 [facility] Comment on above: Performed By: #### C BCDIF, CMP, MG1 ####[place] [address] [place] [id number] Chloride molar conc 99 mmol/L Normal 97-105 [facility] Comment on above: Performed By: #### C BCDIF, CMP, MG1 ####[place] [address] [place] [id number] CO2 molar conc 24 mmol/L Normal 22-30 [facility] Comment on above: Performed By: #### C BCDIF, CMP, MG1 ####[place] [id number] Creatinine mass conc 0.74 mg/dL Normal 0.73-1.22 [facility] Comment on above: Performed By: #### C BCDIF, CMP, MG1 ####[place] [id number] eGFR- Amer. >60 Normal >60 [facility] Comment on above: Performed By: #### C BCDIF, CMP, MG1 ####[place] [id number] GFR/1.73 sq M predicted among non-blacks MDRD vol rate/area (S/P/Bld) mL/min/{1.73_m2} Normal >60 [facility] Comment on above: Result Comment: eGFR (Estimated GFR) Units of measure: mL/min/1.73 meters squaredeGFR is derived from the reexpressed MDRD Study equation using the following parameters: serum creatinine, age, gender and race. The creatinine assay has been calibrated to be traceable to IDMS.An eGFR <60 mL/min/1.73m2 for >3 months is consistent with chronic kidney disease. Refer to KDOQI guidelines for clinical interpretation.In patients with unstable renal function, e.g. those with acute kidney injury, the eGFR may not accurately reflect actual GFR. Performed By: #### C JUANJOSE STEELE, MG1 ####[place] [id number] Glucose mass conc 133 mg/dL High 74-99 [facility] Comment on above: Performed By: #### C BCJUANJOSE BRIONES, MG1 ####[place] [id number] Potassium molar conc 4.6 mmol/L Normal 3.7-5.1 [facility] Comment on above: Performed By: #### C JUANJOSE STEELE, MG1 ####[place] [id number] Protein mass conc 8.0 g/dL Normal 6.3-8.0 [facility] Comment on above: Performed By: #### C BCANALI CMP, MG1 ####[place] [id number] Sodium molar conc 141 mmol/L Normal 136-144 [facility] Comment on above: Performed By: #### C IVETTE CMP, MG1 ####[place] [id number] Urea nitrogen mass conc 18 mg/dL Normal 9-24 [facility] Comment on above: Performed By: #### C BCSADEF, CMP, MG1 ####[place] [id number] ED NOTEon 06-07-2018 ED NOTE HNO ID: [id number] Author: Faith ClearyRn) PIA Rodriguez Service: (none) Author Type: Registered Nurse Type: ED Notes Filed: 06/07/2018 3:08 PM Note Text: Report called to 4D rn all questions answered., pt to be sent upstairs with medics and belongings. [facility] ED NOTE HNO ID: [id number] Author: Faith ClearyRn) Michael RN Service: (none) Author Type: Registered Nurse Type: ED Notes Filed: 06/07/2018 2:59 PM Note Text: Labs were drawn and sent. [facility] ED NOTE HNO ID: [id number] Author: Faith ClearyRn) PIA Rodriguez Service: (none) Author Type: Registered Nurse Type: ED Notes Filed: 06/07/2018 2:59 PM Note Text: Pt refused walker [facility] ED NOTE HNO ID: [id number] thor: Cecily ClearyRn) ARBEN Edmondervice: (none)Author Type: Registered NurseType: ED NotesFiled: 06/07/2018 2:01 PMNote Text:Patient attempted to ambulate with walker. Patient able to stand butstates that he cannot take any steps. Patient states "I don't want thepain to come back". PA notified. [facility] ED NOTE HNO ID: [id number] thor: Anastasiia ClearyRn) Kathy Johnsonice: Emergency MedicineAuthor Type: Registered NurseType: ED NotesFiled: 06/07/2018 1:17 PMNote Text: Pt educated on medication and medicated per MAR. No complaints at thistime. No distress noted, safety maintained. Will continue to monitor. [facility] ED NOTE HNO ID: [id number] thor: Anastasiia Kyle) ARBEN Johnsonervice: Emergency MedicineAuthor Type: Registered NurseType: ED NotesFiled: 06/07/2018 12:09 PMNote Text:Pt arrived via EMS after falling at [facility] and hurting his back. Stateshis leg gave out and now he has shooting pain down his leg. Reportsfalling on his side and then hitting his head after falling. Deniesheadache and head pain just reporting severe back pain. [facility] ED PROV NOTEon 06-07-2018 Protein mass conc HNO ID: [id number] thor: Sky Ramirezice: Emergency MedicineAuthor Type: PhysicianType: ED Provider NotesFiled: 06/08/2018 1:54 PMNote Text:ED Provider NotePatient Name: Natalie NietoGemRN: [id number] DATE: 06/07/18HistoryPatient presents with:Back [id number] white male that presents to the emergency room via [facility] for sciatic pain. The patient states that he has chronic left sciaticpain and [facility] G[facility] out and hefell. The patient states that he did not get injured in the fall. He didstrike his head but there was no loss consciousness. He has no headacheor neck pain. The patient states that he has chronic pain from his leftsciatica and has had to be admitted in the past and sent to rehabilitationfor this. The patient also states that he has avascular necrosis to hisright hip. His left hip is artificial. Pain scale 6/10. Review of systemswere reviewed and patient denies fever, chills, headache, visual changes,neck pain or stiffness, chest pain, shortness of breath, cough, abdominalpain, nausea, vomiting, or diarrhea. Patient denies genitourinarysymptoms, skin rash or neuro deficits. Symptoms not improved with home orOTC medications. No other medical complaints or injuries. No otheraggravating or alleviating symptoms other than described as above.History provided by: Patient and EMS personnelLanguage utility locate technician used: NoPAST MEDICAL HISTORYDiagnosis Date- Arthritis- Chronic lower back pain- Congestive heart failure (HCC)- Coronary artery disease- Depression- Dyslipidemia- Heart attack (HCC) 2006- Obesity- Unspecified essential hypertensionPAST SURGICAL HISTORYProcedure Laterality Date- BACK SURGERY HX- CARDIAC CATHETERIZATION HX- CHOLECYSTECTOMY HX- HERNIA REPAIR HX- JOINT REPLACEMENT HX hip- ORTHOPEDICS SURGERY HX total hip replacement- PAST SURGICAL HISTORY OF 2004 total hip replacement leftFAMILY HISTORYProblem Relation Age of Onset- Ischemic Heart Disease Mother- Ischemic Heart Disease SisterSocial HistorySocial History Main Topics- Smoking status: Never Smoker- Smokeless tobacco: Never Used- Alcohol use No Comment: Sober for 14 yrs- Drug use: No Comment: recovered- Sexual activity: Not CurrentlyALLERGIESAllergen Reactions- Fish Derived Hives- Nubain [Nalbuphine * Feels like hes climbing acosta" per pt- Toradol [Ketorolac * Hives Pt states that he tolerates aspirinReview of SystemsHENT: Negative.Eyes: Negative.Respiratory: Negative.Cardiovascular: Negative.Gastrointestinal: Negative.Genitourinary: Negative.Musculoskeletal: Negative.Skin: Negative.Neurological: Negative.Physical ExamBP 150/74 Pulse 100 Temp (Src) 98.2 (Oral) Resp 20 Ht 5' 5"(1.65m) Wt 311 lb (141.1kg) BMI 51.75 kg/(m2).Physical ExamConstitutional: He is oriented to person, place, and time. Vital signs arenormal. He appears well-developed and well-nourished. He is active.Non-toxic appearance. He does not have a sickly appearance. He does notappear ill. He appears distressed.Morbidly obeseHENT:Head: Normocephalic and atraumatic.Nose: Nose normal.Mouth/Throat: Oropharynx is clear and moist.Eyes: Pupils are equal, round, and reactive to light. Conjunctivae and EOMare normal.Neck: Normal range of motion. Neck supple.Cardiovascular: Normal rate, regular rhythm and normal heart sounds.Pulmonary/Chest: Effort normal and breath sounds normal.Abdominal: Soft. Bowel sounds are normal.Musculoskeletal: Lumbar back: He exhibits decreased range of motion, tenderness (overleft SI joint), pain and spasm. He exhibits no bony tenderness, noswelling, no edema, no deformity, no laceration and normal pulse.Neurological: He is alert and oriented to person, place, and time. Nocranial nerve deficit.Skin: Skin is warm and dry.Psychiatric: He has a normal mood and affect.Nursing note and vitals reviewed.Diagnostic TestingED Labs Ordered and ReviewedCBC + AUTO DIFF (AK,AV,EU,FV,HL,JEFFREY,MM,SP) - Abnormal; Notable for thefollowing: Result Value Ref Range Hemoglobin 12.1 (*) 13.0 - 17.0 g/dL Hematocrit 37.9 (*) 39.0 - 51.0 % Abs Neut (ANC) 8.80 (*) 1.45 - 7.50 k/uL Abs Lymph 0.73 (*) 1.00 - 4.00 k/uL All other components within normal limitsURINALYSIS WITH MICROSCOPIC (AK,AV,EU,FV,HL,JEFFREY,MM,SP)Pro ceduresED Course / Clinical ImpressionMedicationslidocai ne 5 % 2 Patch (LIDODERM) (2 Patches TRANSDERMAL Given 06/07/18 1253)lidocaine patch - REMOVE (not administered)lidocaine - VERIFY PATCH (not administered)diazePAM 5 mg tab(s) (VALIUM) (5 mg ORAL Given 06/07/18 1253)meperidine (PF) 75 mg injection (DEMEROL) (75 mg INTRAMUSCULAR Given06/07/18 1310)NaCl 0.9% 1,000 mL iv bolus (1,000 mL INTRAVENOUS Transferred from ED06/07/18 1600)Sxs improved with the above meds but pt was unwilling to try and ambulatebecause "I don't want the pain to go back up to a ten. You need to admitme, so [facility] can [facility]."Clinical Impressions as of Jun 07 1614Sciatica of left sideIntractable painGait instabilityMorbid obesity (HCC)Elevated alkaline phosphatase levelHyperglycemiaAnemia, unspecified typeMDM / Disposition / PlanCase was discussed with Dr Jonathan Rubio in the ED, Dr Cleary for admission.Sciatica, Avasuclar Necrosis right hip, Chronic Pain, Inability toambulate, Metabolic Abnl considered as differential diagnoses. Managementdecisions include Admit.DispositionThe patient was admitted.Admitted to Regular Nursing Floor.Condition at disposition is stable and improved.SIGNATURE: Dru Oneal (Tori) Kljmhup61/06/19 1621Attending NoteI have personally performed a face to face assessment of the patient andhave reviewed the PA/FILTERS ASSEMBLER note. My rubin findings include:History is 58-year-old male presents via EMS for evaluation of left-sidedsciatica after fall. Patient states his left leg gave out and he fell.Significant injury with fall. Now has left-sided low back pain radiatingdown the posterior thigh.Exam is Heart regular. Lungs clear. Abdomen soft. Left low back painradiating down left posterior thigh. Neurovascularly intact to left lowerextremity.Assessment/Pl an are Pain improved after treatment, but patient will notput weight on his left foot. He is unable to ambulate with a walker.Fall risk. Morbidly obese. Unsteady gait. Discussed medicine.Hospitalized for further evaluation and management of left-sided sciaticawith intractable pain and gait instability with plans for PT evaluationand possible placement to intermediate facility in stable condition.Other additions or changes: NoneSignature: Oswaldo Tiago Rubio, DODate: 06/08/2018Time: 1:51 PMBenelizabethfrench Ordoñez Jimbolauren, DO06/08/18 1354 [facility] HISTORY PHYSICALon 9 HISTORY PHYSICAL HNO ID: [id number] thor: Sandhya Lockwood) CrossService: Critical CareAuthor Type: Nurse PractitionerType: HANDPFiled: 06/07/2018 5:05 PMNote Text:HISTORY AND PHYSICAL EXAMINATION *SERVICE DATE: 06/07/2018SERVICE TIME: 4:17 [facility] CARE PHYSICIAN: Boby Johnston COMPLAINT: S/p fall with back painHPI: This is a 58 year old male who [facility] [employer] Patient states his leg gave out causing him to fall onto hisside. He denies any injuries from his fall. Patient states that he hasconstant sciatic pain on the right that fluctuates in intensity. Today'jovani was so bad that he was unable to bear weight on his right sidecausing him to fall. Patient was unable to walk with walker while in theED and was therefore admitted for PT/OT evaluation and possible SNFplacement. Patient to be admitted to [facility] under Dr. Cleary.PAST MEDICAL HISTORYDiagnosis Date- Arthritis- Chronic lower back pain- Congestive heart failure (HCC)- Coronary artery disease- Depression- Dyslipidemia- Heart attack (HCC) 2006- Obesity- Unspecified essential hypertensionPAST SURGICAL HISTORYProcedure Laterality Date- BACK SURGERY HX- CARDIAC CATHETERIZATION HX- CHOLECYSTECTOMY HX- HERNIA REPAIR HX- JOINT REPLACEMENT HX hip- ORTHOPEDICS SURGERY HX total hip replacement- PAST SURGICAL HISTORY OF 2004 total hip replacement leftFamily History Reviewed Including Cardiac Diseases, Psychiatric Diseases,AND Substance AbuseProblem Relation Age of Onset- Ischemic Heart Disease Mother- Ischemic Heart Disease SisterSocial HistorySubstance Use Topics- Smoking status: Never Smoker- Smokeless tobacco: Never Used- Alcohol use No Comment: Sober for 14 yrsMEDICATIONS: Prior to Admission MedicationsPrescriptions Prior to Admission:atorvastatin (LIPITOR) 40 mg tablet Take 40 mg by mouth once daily. Disp:Rfl: 06/07/2018 at Unknown timenabumetone (RELAFEN) 500 mg tablet Take 500 mg by mouth once daily. Disp:Rfl: 06/07/2018 at Unknown timemelatonin 3 mg tablet Take 5 mg by mouth daily at bedtime. Disp: Rfl:06/06/2018 at Unknown timesenna (SENOKOT) 8.6 mg tab Take 8.6 mg by mouth once daily as needed.Disp: Rfl: 06/06/2018 at Unknown timecholecalciferol (VITAMIN D-3) 2,000 unit tablet Take 2,000 Units by mouthonce daily. Disp: Rfl: 06/07/2018 at Unknown timeDocusate Sodium 100 mg tab Take 100 mg by mouth once daily as needed.Disp: Rfl: 06/07/2018 at Unknown timeclopidogrel (PLAVIX) 75 mg tablet Take 75 mg by mouth once daily. Disp:Rfl: 06/07/2018 at Unknown timelevothyroxine (SYNTHROID) 50 mcg tablet Take 1 tablet by mouth DAILY (6AM). Disp: 90 tablet Rfl: 0 06/07/2018 at Unknown timeesomeprazole (NEXIUM) 40 mg capsule Take 40 mg by mouth once daily. Disp:Rfl: 06/07/2018 at Unknown timeQUEtiapine (SEROQUEL) 100 mg tablet Take 100 mg by mouth daily at bedtime.Disp: Rfl: 06/06/2018 at Unknown timecarvedilol (COREG) 6.25 mg tablet Take 1 tablet by mouth daily withbreakfast Disp: Rfl: 06/07/2018 at Unknown timeaspirin 81 mg chewable tablet Take 1 tablet by mouth once daily. Disp:Rfl: 0 06/07/2018 at Unknown timefurosemide (LASIX) 20 mg tablet Take 1 tablet by mouth once daily. Disp:30 tablet Rfl: 0 06/07/2018 at Unknown timelisinopril 10 mg tablet Take 1 tablet by mouth once daily. Disp: 30 tabletRfl: 0 06/07/2018 at Unknown timecitalopram (CELEXA) 20 mg tablet Take 20 mg by mouth. Disp: Rfl:traMADol (ULTRAM) 50 mg tablet Take 100 mg by mouth. Disp: Rfl:dextroamphetamine-amphet amine (ADDERALL) 20 mg tablet Take 1 tablet bymouth once daily for 30 days. Disp: 30 tablet Rfl: 0pantoprazole DR (PROTONIX) 40 mg tablet Take 1 tablet by mouth DAILY (6AM). Disp: 30 tablet Rfl: 0nitroglycerin sublingual (NITROQUICK) 0.4 mg SL tablet Dissolve 0.4 mgunder the tongue every 5 minutes as needed. Disp: Rfl: 07/18/2016 atJose timeALLERGIESAllergen Reactions- Fish Derived Hives- Nubain [Nalbuphine * Feels like hes climbing acosta" per pt- Toradol [Ketorolac * Hives Pt states that he tolerates aspirinCOMPLETE REVIEW OF SYSTEMS:GENERAL: Negative for fever.SKIN: No rashes.HEENT: No recent change in vision or hearing.NECK: Negative for pain.RESPIRATORY: Negative for cough, wheezing or shortness of breathCARDIOVASCULAR: Negative for chest pain, leg swelling or palpitations.GI: No recent nausea, vomiting or diarrhea.: Negative for incontinence and dysuria.MUSCULOSKELETAL: see HPIPSYCH: Negative for mood disorder.ENDOCRINE: Negative for goiter.NEURO: Negative for tremors or paralysis.ObjectivePHYSICAL EXAM:Patient Vitals for the past 24 hrs: BP Temp Temp src Pulse Resp SpO2 Height Koleik64/06/19 1501 120/67 36.8 ?C (98.2 ?F) Oral 90 18 98 % 165.1 cm (5' 5")(!) 141.1 kg (311 lb)06/07/18 1500 148/76 - - (!) 91 17 98 % - -06/07/18 1146 150/74 36.8 ?C (98.2 ?F) Oral (!) 100 20 97 % 165.1 cm (5'5") (!) 141.1 kg (311 lb)Body mass index is 51.75 kg/m?.PAIN: 6/10 pain to right hip down lateral right legGENERAL: Alert, cooperative.SKIN: small abrasions and scratches throughout bodyHEENT: PERRL, nasal mucosa moist, oropharynx negative.NECK: Supple, no carotid bruit.LUNGS: Clear to auscultation bilaterally.CARDIAC: RRR, normal S1 and S2.ABDOMEN: Soft, nontender, bowel sounds present.EXTREMITIES: No edema. Moves all extremities times 4.PULSES: Radial pulses 2+, DP pulses 2+.NEURO: Alert and oriented x 3, no focal deficits.DATA:Diagnostic tests reviewed for today's visit:Most recent labs and imaging results.Assessment/PlanBack pain- sciatic pain to right hip- unable to walk with walkerPlan:- admit to [facility]- lidoderm patch, tramadol, demerol for pain- consult to PT/OTHTN/ HLD/ hypothyroidism/ CHF/depression/ CAD- continue home medicationsMedication and Non-Pharmacologic VTE Prophylaxis/AnticoagulantsVT E Prophylaxis: VTE prophylaxis appropriateI personally spent 40 minutes directly supervising and providing Level 2Care exclusive of any other billable procedure.SIGNATURE: Sandhya Bashir APRN.CNP PATIENT NAME: Natalie Botello SucciDATE: June 07, 2018 : 4:16 PM PAGER: Normal [facility] HISTORY PHYSICAL HNO ID: [id number] thor: Jt ClearySer: General Internal MedicineAuthor Type: PhysicianType: HANDPFiled: 06/07/2018 7:11 PMNote Text:[facility] - History and PhysicalSUCCNATALIE German HDOB: 1960 AGE: 58 SEX: MMRN: [id number] CSN: [id number] [place] [facility] LOCATION: [address] [place] [address] PHYSICIAN: Jt Cleary M.D.ADMIT DATE: 06/07/2018CHIEF COMPLAINT: Inability to walk.HISTORY OF PRESENT ILLNESS: The patient has morbid obesity and sciaticaand disk disease and he noticed in the last few days, severe painespecially on the right side in the legs without radiation and he isunable to walk by any mean, so he was admitted for that. This happenedat time before at least.CURRENT MEDICATIONS:1. Aspirin 81 daily.2. Lipitor 40 mg daily.3. Coreg 6.25 b.i.d.4. Vitamin D3 of 2000 daily.5. Celexa 20 mg daily.6. Plavix 75 daily.7. Adderall 20 mg daily.8. Lasix 20 mg daily.9. Nexium 40 mg daily.10.Synthroid 50 mcg daily.11.Lisinopril 10 daily.12.Relafen 500 b.i.d.13.Melatonin 5 mg at bedtime.14.Protonix instead of the Nexium, if not available 40 mg daily.15.Seroquel 100 mg at bedtime.16.Tramadol 50 camilo 6 hours p.r.n.PAST MEDICAL AND PAST SURGICAL HISTORY: Morbid obesity, CVA, PE, DVT,CAD, [place], hypertension, hyperlipidemia, sleep apnea, depression,multilevel disk disease of the lumbar spine status post decompression,left hip replacement and other left leg surgery, and hypothyroidism.HABITS: Nonsmoker, no alcohol, no drugs.ALLERGIES: Tramadol and Nubain. He is allergic to fish also.FAMILY HISTORY: Noncontributory.REVIEW OF SYSTEMS: No visual complaints. No hearing complaints.No skin complaints. No chest pain. No shortness of breath. He haschronic back pain, right leg pain, difficulty walking, some edema onand off. No dysuria. The rest of the review of systems is basicallynegative except for depressed mood.PHYSICAL EXAMINATION: The patient is alert, in no acute distress. He ismorbidly obese. His BMI is 51. His vital signs are normal. Neck: Nothyromegaly, color normal. Lungs: Clear. Heart: Regular S1 and S2. Abdomen: Soft, nontender. Extremities: No edema. Neurologic isnonfocal. He has poor balance. He cannot walk, very poor range ofmotion of the lower back.LABORATORY DATA: Hematocrit and hemoglobin are slightly diminished. TheCMP is unremarkable. The most recent A1c is 5.6. The most recent TSHis normal. The urinalysis is unremarkable. The most recent lipidprofile shows slight elevation of the triglycerides.ASSESSMENT:1. Morbid obesity.2. Multilevel degenerative disk disease of the lumbar spine.3. Difficulty walking.4. Sciatica on the right.5. Coronary artery disease, stable.6. History of cerebrovascular accident, stable.PLAN: At this point in time, we will consult the PT/OT and the socialworker and control the pain and consult the bariatric surgery because heis open to the idea.Jt Cleary M.D.[facility] CrawfordsvilleKD:[id number]: 06/07/2018 17:52:51T: 06/07/2018 18:22:10Job #: [id number] [facility] Magnesiumon 06-07-2018 Magnesium mass conc 2.2 mg/dL Normal 1.7-2.3 [facility] Comment on above: Performed By: #### C BCDIF, CMP, MG1 ####[facility] [phone] NURSING PROGon 06-07-2018 Protein mass conc HNO ID: [id number] thor: Tierra (Rn) Harvey, RNService: (none)Author Type: Registered NurseType: Nursing Progress NoteFiled: 06/07/2018 11:05 PMNote Text: Nursing Progress NotePatient Name: Natalie Del ValleRN: [id number] Location: [facility]/[id number]____ Daily Note:1923: Pt refused telemetry, stated he does not want a roommate." Pt. Refused SCD's.This note was completed by: Tierra Gabriel RN [facility] PROGRESSon 06-07-2018 Protein mass conc HNO ID: [id number] Author: Jt Cleary Service: General Internal Medicine Author Type: Physician Type: Progress Notes Filed: 06/07/2018 5:53 PM Note Text: [id number] [facility] SPINE LUMBAR WO CONTRASTon 0 06-07-2018 SPINE LUMBAR WO CONTRAST *FINAL Date of Service: 06/07/2018 02:09 Adm #: [id number] Reading Dr:SHANNAN HILL Signoff Dr: SHANNAN HILL PROCEDURE: SPINE LUMBAR WO CONTRAST - T 3015 REASON FOR EXAM: low back pain RESULT: SPINE LUMBAR WO CONTRAST: 06/07/2018 2:09 AM CLINICAL INDICATION: Low back pain for one day with history of spinal fusion. COMPARISON: None. TECHNIQUE: CT axial images through the lumbar spine without contrast. Post processing sagittal and coronal reconstruction images were also performed. PATIENT RADIATION EXPOSURE DATA: CTDI (mGy): 64.00 mGy DLP (mGy/cm): 1910 mGycm FINDINGS: There is no acute fracture or bony destruction demonstrated. There is anterior wedging of the 11th thoracic vertebral body unchanged when compared with plain films of the lumbosacral spine done on 08/22/2016. Both the L3-4 and the L4-5 disc spaces are decreased in height with vacuum disc phenomenon at both levels, more pronounced at the L4-5 level. The remaining lumbar disc spaces are maintained. A grade 1 spondylolisthesis of L4 on L5 is seen with bilateral spondylolysis at this level noted. There is post operative change consisting of decompressive laminectomy at the L3-4 and the L4-5 levels. There is vacuum disc phenomenon at the T11-12 level. Anterior osteophytes are seen. There is no disc herniation, or canal or foraminal stenosis at this level. At T12-L1, anterior osteophytes are present. At L1-2, there are small anterior osteophytes noted. At L2-3, small anterior osteophytes are present. There is mild bulge of the disc with mild hypertrophy of ligamentum flavum producing mild central canal stenosis. No disc herniation is evident. At L3-4 level, decompressive laminectomy is seen. There is posterior osteophytic lipping of the endplates at this level with degenerative spondyloarthropathy noted bilaterally. The AP diameter of the thecal sac is normal but there is some decrease in the transverse diameter of the thecal sac due to the facet arthrosis and hypertrophy. Right foraminal stenosis is present. At L4-5, the transverse diameter of the thecal sac is quite narrowed due to degenerative spondyloarthropathy. There is also bilateral foraminal stenosis at this level. Bulging of the disc is seen. There has been decompressive laminectomy with the AP dimension of the thecal sac within normal limits. At the L5-S1 level, bilateral foraminal stenosis is present. There is degenerative spondyloarthropathy bilaterally. No central canal stenosis at this level is observed. IMPRESSION: Degenerative disc disease at the L3-4 and L4-5 levels with grade 1 spondylolisthesis of L4 on L5 secondary to bilateral spondylolysis. Status post decompressive laminectomy at L3-4 and L4-5 levels. Bilateral foraminal stenosis at L4-5 and L5-S1 levels with right foraminal stenosis at L3-4. Borderline to mild spinal stenosis at L2-3. There is mild stenosis with decrease in the transverse diameter of the thecal sac at the L3-4 level. There is rather pronounced spinal stenosis at the L4-5 level despite decompressive laminectomy. Bulging of the L4-5 disc is observed. No acute fracture. Preliminary interpretation provided by virtual radiologic. This report has been produced using speech recognition. This exam is available in DICOM format to non-affiliated healthcare facilities on a secure media free searchable basis with prior patient authorization. The patient exposure is reported to a radiation dose index registry. All CT examinations are performed with one or more of the following dose reduction techniques: Automated Exposure Control, Adjustment of mA and/or KV according to patient size, or use of iterative reconstruction techniques. Original Interpreting Physician: SHANNAN HILL M.D. Original Transcribed by/Date: PSCB Jun 07 2018 8:10A Original Electronically Signed by/Date: SHANNAN HILL M.D. Jun 07 2018 8:10A Addendum Interpreting Physician: Addendum Transcribed by/Date: NO ADDENDUM Addendum Electronically Signed by/Date: [facility] Urinalysis with Microscopico n 06-07-2018 Bacteria Present Critically abnormal 0 [facility] Comment on above: Performed By: #### U AWMIC ####[place] [id number] Bilirubin, Urine Small Critically abnormal Negative [facility] Comment on above: Result Comment: Sugg est correlation with clinical findings and serum bilirubin if clinically indicated. Performed By: #### U AWMIC ####[place] [id number] Cast SEE COMMENT Normal 0 [facility] Comment on above: Result Comment: 0 Performed By: #### U AWMIC ####[place] [id number] Clarity Clear Normal Clear [facility] Comment on above: Performed By: #### U AWMIC ####[place] [id number] Color Yellow Normal Yellow [facility] Comment on above: Performed By: #### U AWMIC ####[place] [id number] Glucose Ql (U) Negative Normal Negative [facility] Comment on above: Performed By: #### U AWMIC ####[place] [id number] Hemoglobin/Blood,Ur Negative Normal Negative [facility] Comment on above: Performed By: #### U AWMIC ####[place] [id number] INR Coag RelTime (Bld) 5-10 Critically abnormal 0-3 [facility] Comment on above: Performed By: #### U AWMIC ####[place] [id number] Ketones Ql (U) Trace Critically abnormal Negative [facility] Comment on above: Performed By: #### U AWMIC ####[place] [id number] Leukest Negative Normal [facility] Comment on above: Performed By: #### U AWMIC ####[place] [id number] Mucus Many Normal [facility] Comment on above: Performed By: #### U AWMIC ####[place] [id number] Nitrites Negative Normal [facility] Comment on above: Performed By: #### U AWMIC ####[place] [id number] pH 5.5 Normal 4.5-8.0 [facility] Comment on above: Performed By: #### U AWMIC ####[place] [id number] Protein, Urine Trace Critically abnormal [facility] Comment on above: Performed By: #### U AWMIC ####[place] [id number] Specific [place], Ur >=1.030 Normal 1.005-1 .03 0 [facility] Comment on above: Performed By: #### U AWMIC ####[place] [id number] Urobilinogen 0.2 Normal 0.2-1.0 [facility] Comment on above: Performed By: #### U AWMIC ####[facility] [phone] WBC 0-5 Normal 0-5 [facility] Comment on above: Performed By: #### U AWMIC ####[facility] [phone] MRA HEAD WO CONTRASTon 05-18 MRA HEAD WO CONTRAST Patient 18DOB: 1960ge: 58 yearsGender: MaleOrder Date: 05/16/2018 1:30 AMEXAM: MRA HEAD WO CONTRASTTECHNIQUE: MRA head without contrast. 211 images.INDICATION: Patient is a 58-year-old gentleman with history of CAD,hypertension, hyperlipidemia, STROKE COMPARISON: CTA head May 15, 2018FINDINGS: Superior cervical, petrous, cavernous, and supraclinoidsegments of internal carotid arteries are unremarkable. A1 and D5aohwuuup of anterior cerebral arteries and the anterior communicatingartery are unremarkable. M1 and M2 segments of middle cerebralarteries are unremarkable. Basilar artery, anterior inferior cerebellar arteries, superiorcerebellar arteries, and P1 and P2 segments of posterior cerebralarteries are unremarkable. No aneurysm, tight stenosis, or vascularmalformation.IMPRESS ION: 1. No aneurysm, tight stenosis, or vascular malformation.Interpreted by:KIKO Aponteigned by:Mireya Alex MD05/18/18inal result Normal [facility] MRI BRAIN WO CONTRASTon 05-02 MRI BRAIN WO CONTRAST Patient 816DOB: 1960ge: 58 yearsGender: MaleOrder Date: 05/16/2018 1:30 AMEXAM: MRI BRAIN WO CONTRASTNUMBER OF IMAGES: 198INDICATION: Patient is a 58-year-old gentleman with history of CAD,hypertension, hyperlipidemia, STROKE TECHNIQUE: Multiplanar, multi sequential images of the brain wereobtained without gadolinium administration. COMPARISON: CT head May 15, 2018FINDINGS: The ventricular system appears to be normal in size andconfiguration for patient's age. There are moderate periventricularand deep subcortical white matter T2 FLAIR hyperintensities with nocorresponding diffusion restriction most likely representing chronicmicrovascular ischemic disease. Small old lacunar infarct in the rightcerebellar hemisphere. No intracranial mass lesions are identified.There is no evidence of restricted diffusion to suggest acute/earlysubacute ischemic infarction. The posterior fossa contents and brainstem are unremarkable. The orbital structures, paranasal sinuses, and mastoid air cells areunremarkable.Patent flow-voids are noted within the intracranial vessels and duralvenous sinuses. The calvarium is intact.IMPRESSION: IMPRESSION:1. No evidence for acute intracranial ischemic infarct or hemorrhage.2. Mild to moderate diffuse age-related cerebral atrophy and chronicmicrovascular ischemic disease.3. Small old lacunar infarct of the right cerebellar hemisphere.Interpreted by:KIKO Aponteigned by:Mireya Alex MD05/18/18inal result Normal [facility] Basic Metabolic Panelon - Anion gap 3 molar conc 15 mmol/L Normal 7-16 [facility] Calcium mass conc 9.1 mg/dL Normal 8.6-10.2 [facility] Chloride molar conc 100 mmol/L Normal 98-107 [facility] CO2 molar conc 23 mmol/L Normal 22-29 [facility] Creatinine mass conc 0.7 mg/dL Normal 0.7-1.2 [facility] GFR/1.73 sq M predicted among blacks MDRD vol rate/area (S/P/Bld) mL/min/{1.73_m2} Normal [facility] GFR/1.73 sq M predicted among non-blacks MDRD vol rate/area (S/P/Bld) mL/min/{1.73_m2} Normal >=60 [facility] Comment on above: Result Comment: Manager Interventional amos Kidney Disease: less than 60 ml/min/1.73 sq.m. Kidney Failure: less than 15 ml/min/1.73 sq.m.Results valid for patients 18 years and older. Glucose mass conc 95 mg/dL Normal 74-99 [facility] Potassium molar conc 4.5 mmol/L Normal 3.5-5.0 [facility] Sodium molar conc 138 mmol/L Normal 132-146 [facility] Urea nitrogen mass conc 11 mg/dL Normal 6-20 [facility] Hgb A1Con 05-17-2018 Hemoglobin A1c/Hemoglobin.total mass fraction (Bld) 5.5 % Normal 4.0-5.6 [facility] Basic Metabolic Panelon 05-02 Anion gap 3 molar conc 12 mmol/L Normal 7-16 [facility] Calcium mass conc 9.0 mg/dL Normal 8.6-10.2 [facility] Chloride molar conc 101 mmol/L Normal 98-107 [facility] CO2 molar conc 24 mmol/L Normal 22-29 [facility] Creatinine mass conc 0.7 mg/dL Normal 0.7-1.2 [facility] GFR/1.73 sq M predicted among blacks MDRD vol rate/area (S/P/Bld) mL/min/{1.73_m2} Normal [facility] GFR/1.73 sq M predicted among non-blacks MDRD vol rate/area (S/P/Bld) mL/min/{1.73_m2} Normal >=60 [facility] Comment on above: Result Comment: Manager Interventional amos Kidney Disease: less than 60 ml/min/1.73 sq.m. Kidney Failure: less than 15 ml/min/1.73 sq.m.Results valid for patients 18 years and older. Glucose mass conc 129 mg/dL High 74-99 [facility] Potassium molar conc 4.1 mmol/L Normal 3.5-5.0 [facility] Sodium molar conc 137 mmol/L Normal 132-146 [facility] Urea nitrogen mass conc 10 mg/dL Normal 6-20 [facility] CBC With Platelet and Differ entialon 05-16-2018 Abs Imm Granulocytes 0.04 E9/L Normal [facility] Basophils Auto #/vol (Bld) 0.04 E9/L Normal 0.00-0.20 [facility] Basophils/100 WBC Auto (Bld) 0.5 % Normal 0.0-2.0 [facility] Eosinophils Auto #/vol (Bld) 0.13 E9/L Normal 0.05-0.50 [facility] Eosinophils/100 WBC Auto (Bld) 1.5 % Normal 0.0-6.0 [facility] Erythrocyte distribution width Auto Ratio (RBC) 14.6 fL Normal 11.5-15.0 [facility] Hematocrit Auto Volume Fraction (Bld) 38.9 % Normal 37.0-54.0 [facility] Hemoglobin mass conc (Bld) 11.8 g/dL Low 12.5-16.5 [facility] Imm Granulocytes 0.5 % Normal 0.0-5.0 [facility] Lymphocytes Auto #/vol (Bld) 1.68 E9/L Normal 1.50-4.00 [facility] Lymphocytes/100 WBC Auto (Bld) 19.1 % Low 20.0-42.0 [facility] MCH Auto Entitic mass (RBC) 28.1 pg Normal 26.0-35.0 [facility] MCHC Auto mass conc (RBC) 30.3 % Low 32.0-34.5 [facility] MCV Auto Entitic volume (RBC) 92.6 fL Normal 80.0-99.9 [facility] Monocytes Auto #/vol (Bld) 0.41 E9/L Normal 0.10-0.95 [facility] Monocytes/100 WBC Auto (Bld) 4.7 % Normal 2.0-12.0 [facility] Neutrophils Auto #/vol (Bld) 6.50 E9/L Normal 1.80-7.30 [facility] Neutrophils/100 WBC Auto (Bld) 73.7 % Normal 43.0-80.0 [facility] Platelet mean volume Auto Entitic volume (Bld) 10.2 fL Normal 7.0-12.0 [facility] Platelets Auto #/vol (Bld) 216 E9/L Normal 130-450 [facility] RBC Auto #/vol (Bld) 4.20 E12/L Normal 3.80-5.80 [facility] WBC Auto #/vol (Bld) 8.8 E9/L Normal 4.5-11.5 [facility] Lipid Panelon 05-16-2018 Cholesterol in HDL mass conc 38 mg/dL Normal >40 [facility] Cholesterol in LDL mass conc 53 mg/dL Normal 0-99 [facility] Cholesterol mass conc 115 mg/dL Normal 0-199 [facility] Triglyceride mass conc 122 mg/dL Normal 0-149 [facility] VLDL Cholesterol (Calculated) 24 mg/dL Normal [facility] Urinalysis, with microscopic on 05-16-2018 Bacteria LM.HPF #/area (Urine sed) NONE Normal [facility] RBC Test strip #/vol (U) NONE Normal 0-2 [facility] WBC #/vol (U) NONE Normal 0-5 [facility] Bilirubin Ql (U) Negative Normal Negative [facility] Clarity Nom (U) Clear Normal Clear [facility] Color Nom (U) Yellow Normal Straw/Reynolds ow [facility] Glucose Ql (U) Negative Normal Negative [facility] Hemoglobin Test strip Ql (U) Negative Normal Negative [facility] Ketones Ql (U) Negative Normal Negative [facility] Leukocyte esterase Test strip Ql (U) Negative Normal Negative [facility] Nitrite Test strip Ql (U) Negative Normal Negative [facility] pH Test strip (U) 6.0 [pH] Normal 5.0-9.0 [facility] Protein Test strip Ql (U) Negative Normal Negative [facility] Specific gravity Relative Density (U) 1.015 Normal 1.005-1.03 0 [facility] Urobilinogen Test strip Qn (U) 0.2 {Kalee'U}/dL Normal < 2.0 [facility] CBC With Platelet No Differe ntialon 05-15-2018 Erythrocyte distribution width Auto Ratio (RBC) 14.5 fL Normal 11.5-15.0 [facility] Hematocrit Auto Volume Fraction (Bld) 38.5 % Normal 37.0-54.0 [facility] Hemoglobin mass conc (Bld) 11.8 g/dL Low 12.5-16.5 [facility] MCH Auto Entitic mass (RBC) 27.6 pg Normal 26.0-35.0 [facility] MCHC Auto mass conc (RBC) 30.6 % Low 32.0-34.5 [facility] MCV Auto Entitic volume (RBC) 90.0 fL Normal 80.0-99.9 [facility] Platelet mean volume Auto Entitic volume (Bld) 10.0 fL Normal 7.0-12.0 [facility] Platelets Auto #/vol (Bld) 262 E9/L Normal 130-450 [facility] RBC Auto #/vol (Bld) 4.28 E12/L Normal 3.80-5.80 [facility] WBC Auto #/vol (Bld) 12.4 E9/L High 4.5-11.[address] [facility] [address] BRAIN PERFUSIONon 05-15- 018 CT BRAIN PERFUSION Patient 6DOB: 2Age: 58 yearsGender: MaleOrder Date: 05/15/2018 8:15 PMEXAM: CT BRAIN PERFUSIONTECHNIQUE: After IV contrast administration sequential axial imageswere obtained with continuous acquisition of the areas of interest ofthe brain for generation of color map images for MTT, CBF and CBV andalso for tissue characterization. The study was performed on a CT scanwith dose reduction technique. Low-dose CT acquisition techniqueincluded one of following options; 1 . Automated exposure control, 2.Adjustment of MA and or KV according to patient's size or 3. Use ofiterative reconstruction.INDICATION: Patient is a 58-year-old gentleman with FOCAL NEURODEFICIT, NEW, FIXED OR WORSENING, LESS THAN 3 HOURS COMPARISON: NoneFINDINGS: There is fairly uniform and symmetric mean transit time ,cerebral blood flow and cerebral blood volume of the cerebral andcerebellar hemispheres. No identifiable findings to support ischemiaor infarct.IMPRESSION: 1. No significant findings to indicate ischemia or infarct.Interpreted by:KIKO Aponteigned by:Mireya Alex MD05/15/18Final result Normal [facility] CT HEAD WO CONTRASTon 2017 CT HEAD WO CONTRAST Patient 6DOB: 1960ge: 58 yearsGender: MaleOrder Date: 05/15/2018 8:15 PMEXAM: CT HEAD WO CONTRASTNUMBER OF IMAGES: 33 INDICATION: Patient is a 58-year-old gentleman with history of focalneuro deficit, cva COMPARISON: CT head October 20, 2013TECHNIQUE: Multiple axial images were obtained from base of the skullto the vertex without administration of IV contrast. Sagittal andcoronal reconstructions were performed. The study was performed on [employer] with dose reduction technique. Low-dose CT acquisitiontechnique included one of following options; 1 . Automated exposurecontrol, 2. Adjustment of MA and or KV according to patient's size or3. Use of iterative reconstruction.FINDINGS: The ventricular system is normal in size and shape forpatient's age. Small old lacunar infarct in the right cerebellarhemisphere posteriorly. No intraventricular or intraparenchymal bleed. No abnormal extra-axial fluid collection is seen. There is noevidence for mass or mass effect. Basilar cisterns are patent. Nomidline shift is identified.Visualized orbital structures and paranasal sinuses are grosslyunremarkable. No evidence of an acute osseous injury is identified.IMPRESSION: 1. No identifiable acute intracranial process.Interpreted by:KIKO Aponteigned by:Mireya Alex MD05/15/18inal result Normal [facility] CTA HEAD W CONTRASTon 2017 CTA HEAD W CONTRAST Patient 6DOB: 2Age: 58 yearsGender: MaleOrder Date: 05/15/2018 8:15 PMEXAM: CTA HEADNUMBER OF IMAGES: [id number]: Patient is a 58-year-old gentleman with history of neurodiffusely, concern for STROKE COMPARISON: NoneTECHNIQUE: Contiguous axial images of the head were obtained followingintravenous contrast using standard CT angiographic protocol. Sagittal and coronal 2D images were reconstructed from the axialacquisition. Additional MIP reconstructions were presented to aid inthe interpretation of this exam. This study was performed on [employer] with dose reduction technique. Low-dose CT acquisitiontechnique included one of following options; 1 . Automated exposurecontrol, 2. Adjustment of MA and or KV according to patient's size or3. Use of iterative reconstruction.FINDINGS: Superior cervical, petrous, cavernous, and supraclinoidsegments of internal carotid arteries are unremarkable. A1 and [id number] of anterior cerebral arteries and the anterior communicatingartery are unremarkable. M1 and M2 segments of middle cerebral arteries are unremarkable. Basilar artery, anterior inferior cerebellar arteries, superiorcerebellar arteries, and P1 and P2 segments of posterior cerebralarteries are unremarkable. No aneurysm, tight stenosis, or vascularmalformation.Superio r and inferior sagittal sinuses, transverse and sigmoid sinusesare patent.Non contrast images of the brain show no acute intracranial process.IMPRESSION: 1. No aneurysm, tight stenosis, or vascular malformation.Interpreted by:KIKO Aponteigned by:Mireya Alex MD05/15/18inal result Normal [facility] CTA NECK W CONTRASTon 2017 CTA NECK W CONTRAST Patient 6DOB: 2Age: 58 yearsGender: MaleOrder Date: 05/15/2018 8:15 PMEXAM: CTA NECK W CONTRASTNUMBER OF IMAGES: [id number]: Patient is a 58-year-old gentleman with neuro diffusely,?STROKE COMPARISON: NoneTECHNIQUE: Multiple axial images of the neck were obtained with bolusadministration of IV contrast. Sagittal and coronal 2D reconstructionswere performed. Maximum intensity projections and 3-D surface renderedreconstructions were performed for angiographic evaluation. The studywas performed on a CT scanner with dose reduction technique. Low-doseCT acquisition technique included one of following options; 1 .Automated exposure control, 2. Adjustment of MA and or KV according topatient's size or 3. Use of iterative reconstruction.FINDINGS: Visualized aortic arch and supra-aortic great arteries areunremarkable. Both common carotid arteries are patent with nosignificant plaque deposition, aneurysm or stenosis.Both carotid bifurcation are well demonstrated. Mild to moderateatherosclerotic soft and calcified plaque deposition on the right. Nosignificant plaque deposition on the left.Both internal carotid arteries are patent with no significantstenosis, aneurysm or dissection.Both vertebral arteries are patent. There are symmetric in size. Nosignificant plaque deposition, aneurysm or stenosis.IMPRESSION: CT angiography of the neck showing no evidence of significant stenosisof the major cervical arteries.Interpreted by:KIKO Aponteigned by:Mireya Alex MD05/15/18Final result Normal [facility] Comprehensive Metabolic Pane yoni 05-15-2018 Albumin mass conc 3.9 g/dL Normal 3.5-5.2 [facility] ALP enzyme act/vol 170 U/L High 40-129 [facility] ALT enzyme act/vol 9 U/L Normal 0-40 [facility] Anion gap 3 molar conc 12 mmol/L Normal 7-16 [facility] AST enzyme act/vol 13 U/L Normal 0-39 [facility] Bilirubin mass conc 0.3 mg/dL Normal 0.0-1.2 [facility] Calcium mass conc 8.9 mg/dL Normal 8.6-10.2 [facility] Chloride molar conc 99 mmol/L Normal 98-107 [facility] CO2 molar conc 24 mmol/L Normal 22-29 [facility] Creatinine mass conc 0.7 mg/dL Normal 0.7-1.2 [facility] GFR/1.73 sq M predicted among blacks MDRD vol rate/area (S/P/Bld) mL/min/{1.73_m2} Normal [facility] GFR/1.73 sq M predicted among non-blacks MDRD vol rate/area (S/P/Bld) mL/min/{1.73_m2} Normal >=60 [facility] Comment on above: Result Comment: Manager Interventional amos Kidney Disease: less than 60 ml/min/1.73 sq.m. Kidney Failure: less than 15 ml/min/1.73 sq.m.Results valid for patients 18 years and older. Glucose mass conc 117 mg/dL High 74-99 [facility] Potassium molar conc 4.2 mmol/L Normal 3.5-5.0 [facility] Protein mass conc 7.2 g/dL Normal 6.4-8.3 [facility] Sodium molar conc 135 mmol/L Normal 132-146 [facility] Urea nitrogen mass conc 11 mg/dL Normal 6-20 [facility] METER GLUCOSEon 05-15-2018 Glucose mass conc 102 mg/dL High 74-99 [facility] Partial Thromboplastin Timeo n 05-15-2018 aPTT Coag time (Bld) 29.8 s Normal 24.5-35.1 [facility] Prothrombin Timeon 8 INR Coag RelTime (PPP) 0.9 {INR} Normal [facility] Prothrombin time (PT) Coag time (PPP) 10.9 s Normal 9.3-12.4 [facility] Troponinon 05-15-2018 Troponin I.cardiac mass conc ng/mL Normal 0.00-0.03 [facility] Comment on above: Result Comment: TROP ONIN T BLOOD LEVELS: 0.03 ng/mL Upper Reference Limit0.04 - 0.09 ng/mL Possible myocardial injury >= 0.10 ng/mL Myocardial injury XR CHEST PORTABLEon 05-15-20 18 XR CHEST PORTABLE EXAMINATION: CHEST RADIOGRAPH (SINGLE VIEW AP OR PA)Patient : 1960ge: 58 yearsGender: MaleOrder Date: 05/15/2018 8:45 PMEXAM: XR CHEST PORTABLENUMBER OF IMAGES \\ views: 1INDICATION: stroke like symptoms stroke like symptomsCOMPARISON: 07/24/2014 RESULT: See IMPRESSION. IMPRESSION: Lines, tubes, and devices: None.Lungs and pleura: Bibasilar atelectasis. No consolidation. No lungmass. No pleural effusion. Cardiomediastinal silhouette: Unchanged cardiomediastinal silhouette.Other:Interpreted by:Michael Swanson, DOSigned by:Michael Swanson, DO18Final result Normal [facility] General Medical Progress Not clovis 03-04-2018 Protein mass conc [facility] Patient: NATALIE GERBER [address] MR#: [id number] [place], [place] [address] : 1960 [address] [place]: Dept: PDOC [place] [facility] [id number] General Medical Progress Note Service Dt: 03/04/18 Report#: [id number] Adm Dt: 02/24/18 Dis Dt: General-Medical Progress Note - Patient Visit Reason Visit Reason: PARESTHESIA, DYSPNEA - Chief Complaint Chief Complaint: LUE and facial numbness - Subjective Narrative HPI/ROS: right shoulder pain - Review of Systems All systems: 10 point review of systems negative except for what is stated in HPI - I O/Vital Signs I O/VS: Vital Signs Temp 36.5 C 03/04/18 05:29 Pulse 64 03/04/18 08:44 Resp 16 03/04/18 05:29 BP 142/78 H 03/04/18 08:44 Pulse Ox 97 03/04/18 05:29 Intake Output 03/03/18 03/03/18 03/04/18 11:59 23:59 11:59 Intake Total 260 640 400 Balance 260 640 400 Intake: Oral 260 640 400 - Patient Exam General appearance: alert Limitations: Positive: no limitations Head: Positive: normal inspection Eyes: Positive: normal appearance Pupils: Positive: equal and reactive ENT: Positive: normal exam Neck: Positive: normal inspection Respiratory: Positive: normal lung sounds bilaterally Cardiovascular: Positive: regular rate, normal rhythm, normal heart sounds GI/Abdominal: Positive: soft, nontender, normal bowel sounds Extremities: Positive: negative jordan's sign bilaterally Neurological: Positive: alert Integumentary: Positive: no rash - Lab Diagnostic Data Diagrams: 02/25/18 07:10 02/25/18 07:10 Chemistry: Chemistry (Last 24hrs) 03/04/18 03/03/18 03/03/18 07:39 16:07 11:06 POC Glucose 113 H 105 93 - Medications Meds: Current Medications Acetaminophen (Tylenol) 650 mg PO Q4 PRN PRN Reason: Pain (mild)/Temp above 38.3 C Alprazolam (Xanax) 0.25 mg PO TID PRN PRN Reason: Anxiety Last Admin: 03/03/18 21:31 Dose: 0.25 mg Aspirin (Aspirin, "Baby" (Chewable)) 81 mg PO DAILY [facility] Last Admin: 03/04/18 08:44 Dose: 81 mg Carvedilol (Coreg) 6.25 mg PO DAILY [facility] Last Admin: 03/04/18 08:43 Dose: 6.25 mg Clopidogrel Bisulfate (Plavix) 75 mg PO DAILY [facility] Last Admin: 03/04/18 08:44 Dose: 75 mg Cyanocobalamin (Vitamin B-12) 1,000 mcg PO DAILY [facility] Last Admin: 03/04/18 08:45 Dose: 1,000 mcg Dextrose (Dextrose Syringe) 25 ml IV Q15M PRN PRN Reason: Hypoglycemia Dextrose (Dextrose Syringe) 50 ml IV Q15M PRN PRN Reason: Hypoglycemia Dextrose (Instant Glucose) 37.5 g PO Q15M PRN PRN Reason: Hypoglycemia Enoxaparin Sodium (Lovenox) 40 mg SC DAILY [facility] Last Admin: 03/04/18 08:45 Dose: 40 mg Furosemide (Lasix) 20 mg PO DAILY [facility] Last Admin: 03/04/18 08:45 Dose: 20 mg Gabapentin (Neurontin) 400 mg PO DAILY [facility] Last Admin: 03/04/18 08:49 Dose: 400 mg Glucagon (Glucagon) 1 mg IM Q15M PRN PRN Reason: Hypoglycemia Levothyroxine Sodium (Synthroid) 50 mcg PO QDSYNTH [facility] Last Admin: 03/04/18 05:27 Dose: 50 mcg Lisinopril (Zestril/Prinivil) 5 mg PO DAILY [facility] Last Admin: 03/04/18 08:44 Dose: 5 mg Melatonin (Melatonin) 3 mg PO QHS [facility] Last Admin: 03/03/18 21:30 Dose: 3 mg Metformin HCl (Glucophage Xr) 500 mg PO 0800,1700 [facility] Last Admin: 03/04/18 08:42 Dose: Not Given Methylphenidate HCl (Ritalin) 40 mg PO DAILY [facility] Last Admin: 03/04/18 08:43 Dose: 40 mg Nitroglycerin (Nitrostat) 400 mcg SL Q5M PRN PRN Reason: Chest Pain Ondansetron HCl (Zofran Odt) 4 mg PO Q6 PRN PRN Reason: Nausea/vomiting Oxycodone/Acetaminophen (Percocet) 2 tab PO Q6 PRN PRN Reason: Pain-moderate (4-6/10) Last Admin: 03/04/18 09:35 Dose: 2 tab Pantoprazole Sodium (Protonix) 40 mg PO DAILY [facility] Last Admin: 03/04/18 08:45 Dose: 40 mg Quetiapine Fumarate (Seroquel) 100 mg PO QHS [facility] Last Admin: 03/03/18 21:30 Dose: 100 mg Senna/Docusate Sodium (Senokot-S) 1 tab PO DAILY [facility] Last Admin: 03/04/18 08:45 Dose: 1 tab Simvastatin (Zocor) 40 mg PO QHS [facility] Last Admin: 03/03/18 21:30 Dose: 40 mg Vitamin D (Vitamin D) 2,000 units.intl PO DAILY [facility] Last Admin: 03/04/18 08:44 Dose: 2,000 units.intl Allergies/Adv: Allergies Allergy/AdvReac Type Severity Reaction Status Date / Time ketorolac Allergy Severe Hives Verified 08/02/16 23:25 nalbuphine Allergy Severe Shortness Verified 08/02/16 23:25 of Breath nalbuphine HCl * Allergy Unknown Verified 10/08/16 21:16 [facility] - Assessment/Plan (1) Facial paresthesia Status: Acute (2) Arm paresthesia, left Status: Acute (3) DVT prophylaxis Status: Acute (4) Dyspnea Status: Acute (5) Morbid obesity Status: Acute (6) Diabetes Status: Chronic Qualifiers: Diabetes mellitus type: type 2 Diabetes mellitus prison insulin use: without prison use (7) CHF exacerbation Status: Suspected Qualifiers: Heart failure type: unspecified Qualified Code(s): I50.9 - Heart failure, unspecified (8) Chronic back pain Status: Chronic Qualifiers: Back pain location: back pain in unspecified location Back pain laterality: midline Qualified Code(s): M54.9 - Dorsalgia, unspecified (9) GERD (gastroesophageal reflux disease) Status: Chronic Qualifiers: Esophagitis presence: esophagitis presence not specified Qualified Code(s): K21.9 - Gastro-esophageal reflux disease without esophagitis (10) HLD (hyperlipidemia) Status: Chronic Qualifiers: Hyperlipidemia type: unspecified Qualified Code(s): E78.5 - Hyperlipidemia, unspecified (11) Hypothyroidism Status: Chronic Qualifiers: Hypothyroidism type: acquired Qualified Code(s): E03.9 - Hypothyroidism, unspecified (12) Shoulder pain, right Status: Acute (13) Rotator cuff arthropathy Status: Acute - Comments Impression: 02/24/18 16:38 Parasthesias, etiology uncertain. Many co-morbidities. See orders for 4rx plan. 02/25/18 11:25 Consults appreciated, w/u continues 02/27/18 08:44 Waiting for insurance approval for ecf, discharge delayed for this reason. 02/28/18 09:06 waiting for insurance approval 03/01/18 07:57 Waiting for ecf approval 03/02/18 08:34 xray and Orthopedic consult for right shoulder pain. 03/04/18 10:24 discharge to home, f/u as outpt in [place], [place] - Patient Time (minutes) Time Spent w/Patient: 31 Normal [facility] Glucose, Point of Careon Glucose mass conc 113 mg/dL High 80-110 [facility] Comment on above: Performed By: #### C BC, BMP, TROP, BNP, TSH ####[facility] [place] [address] Glucose mass conc 113 mg/dL High 80-110 [facility] Comment on above: Performed By: #### C BC, BMP, TROP, BNP, TSH ####[facility] [place] [id number] Orthopedic Progress Noteon 1 Protein mass conc [facility] Patient: NATALIE GERBER [address] [facility] MR#: [id number] [place], [place] [address] : 1960 Ord. : Dept: PDOC [place] [facility] [id number] Orthopedic Progress Note Service Dt: 03/04/18 Report#: [id number] Adm Dt: 02/24/18 Dis Dt: Orthopedic Progress Note - Patient Visit Reason Visit Reason: PARESTHESIA, DYSPNEA - Chief Complaint Chief Complaint: LUE and facial numbness - Lab Diagnostic Data Diagrams: 02/25/18 07:10 02/25/18 07:10 Chemistry: Chemistry (Last 24hrs) 03/03/18 03/03/18 16:07 11:06 POC Glucose 105 93 - Medications Meds: Current Medications Acetaminophen (Tylenol) 650 mg PO Q4 PRN PRN Reason: Pain (mild)/Temp above 38.3 C Alprazolam (Xanax) 0.25 mg PO TID PRN PRN Reason: Anxiety Last Admin: 03/03/18 21:31 Dose: 0.25 mg Aspirin (Aspirin, "Baby" (Chewable)) 81 mg PO DAILY [facility] Last Admin: 03/03/18 08:58 Dose: 81 mg Carvedilol (Coreg) 6.25 mg PO DAILY [facility] Last Admin: 03/03/18 08:58 Dose: 6.25 mg Clopidogrel Bisulfate (Plavix) 75 mg PO DAILY [facility] Last Admin: 03/03/18 08:55 Dose: 75 mg Cyanocobalamin (Vitamin B-12) 1,000 mcg PO DAILY [facility] Last Admin: 03/03/18 08:58 Dose: 1,000 mcg Dextrose (Dextrose Syringe) 25 ml IV Q15M PRN PRN Reason: Hypoglycemia Dextrose (Dextrose Syringe) 50 ml IV Q15M PRN PRN Reason: Hypoglycemia Dextrose (Instant Glucose) 37.5 g PO Q15M PRN PRN Reason: Hypoglycemia Enoxaparin Sodium (Lovenox) 40 mg SC DAILY [facility] Last Admin: 03/03/18 08:58 Dose: 40 mg Furosemide (Lasix) 20 mg PO DAILY [facility] Last Admin: 03/03/18 08:58 Dose: 20 mg Gabapentin (Neurontin) 400 mg PO DAILY [facility] Last Admin: 03/03/18 08:55 Dose: 400 mg Glucagon (Glucagon) 1 mg IM Q15M PRN PRN Reason: Hypoglycemia Levothyroxine Sodium (Synthroid) 50 mcg PO QDSYNTH [facility] Last Admin: 03/04/18 05:27 Dose: 50 mcg Lisinopril (Zestril/Prinivil) 5 mg PO DAILY [facility] Last Admin: 03/03/18 09:10 Dose: 5 mg Melatonin (Melatonin) 3 mg PO QHS [facility] Last Admin: 03/03/18 21:30 Dose: 3 mg Metformin HCl (Glucophage Xr) 500 mg PO 0800,1700 [facility] Last Admin: 03/03/18 16:38 Dose: Not Given Methylphenidate HCl (Ritalin) 40 mg PO DAILY [facility] Last Admin: 03/03/18 10:12 Dose: 40 mg Nitroglycerin (Nitrostat) 400 mcg SL Q5M PRN PRN Reason: Chest Pain Ondansetron HCl (Zofran Odt) 4 mg PO Q6 PRN PRN Reason: Nausea/vomiting Oxycodone/Acetaminophen (Percocet) 2 tab PO Q6 PRN PRN Reason: Pain-moderate (4-6/10) Last Admin: 03/04/18 03:24 Dose: 2 tab Pantoprazole Sodium (Protonix) 40 mg PO DAILY [facility] Last Admin: 03/03/18 08:55 Dose: 40 mg Quetiapine Fumarate (Seroquel) 100 mg PO QHS [facility] Last Admin: 03/03/18 21:30 Dose: 100 mg Senna/Docusate Sodium (Senokot-S) 1 tab PO DAILY [facility] Last Admin: 03/03/18 08:58 Dose: 1 tab Simvastatin (Zocor) 40 mg PO QHS [facility] Last Admin: 03/03/18 21:30 Dose: 40 mg Vitamin D (Vitamin D) 2,000 units.intl PO DAILY [facility] Last Admin: 03/03/18 08:56 Dose: 2,000 units.intl Allergies/Adv: Allergies Allergy/AdvReac Type Severity Reaction Status Date / Time ketorolac Allergy Severe Hives Verified 08/02/16 23:25 nalbuphine Allergy Severe Shortness Verified 08/02/16 23:25 of Breath nalbuphine HCl * Allergy Unknown Verified 10/08/16 21:16 [From [facility]] - Comments Impression Comments: 03/04/18 07:31 Patient's complaints regarding her right shoulder unchanged. Pain and stiffness continue. Active and assisted elevation about 90?. Arthrogram consistent with adhesive capsulitis and possibly a small rotator cuff tear. Arthrogram findings reviewed. Recommend against surgical management at this time. Instead, patient would benefit from aggressive physical therapy for treatment of the adhesive capsulitis. Once he regains adequate motion and if pain persists, then one might consider repair of the rotator cuff. I suspect that once the capsulitis is resolved, symptoms will subside and surgery won't be necessary. Plan for discharge soon. Physical therapy as outpatient. Orthopedic follow-up as needed. Normal [facility] Arthrogram Shoulder Righton 03-03-2018 Arthrogram Shoulder [facility] Patient: NATALIE GERBER [address] [facility] MR#: [id number] [place], [place] [address] : 1960 Ord. : Thierno Thakkar MD Dept: Diagnostic Imaging [place] [facility] [id number] DI REPORT Service Dt:03/03/18 Report#: [id number] Adm Dt: 02/24/18 Dis Dt: Comments: STUDY: CR Arthrogram Shoulder Right; 03/03/2018 3:10 pm INDICATION: rotator cuff tear;adhessive capsulitis/tendinitis. COMPARISON: None. ACCESSION NUMBER(S): [id number] ORDERING CLINICIAN: Thierno Thakkar TECHNIQUE: Right shoulder arthrogram. The procedure was explained to the patient in written, informed consent was obtained. Patient was placed supine on the fluoroscopic table. The skin along the anterior aspect of the right shoulder was cleansed with alcohol and locally anesthetized with lidocaine. Order fluoroscopic guidance, a 20 gauge needle was placed into the right glenohumeral joint. Approximately 8 cc of Conray was injected. Following this, the needle was removed. Patient tolerated the procedure without any complication. FINDINGS: There is contrast in the right glenohumeral joint. There are multiple linear channels to the subacromial space consistent with a rotator cuff tear of the supraspinatus tendon. Also note is made of irregularity and deformity of the capsule consistent with adhesive capsulitis. IMPRESSION: 1. Rotator cuff tear with extension of contrast superior to the supraspinatus tendon. 2. Adhesive capsulitis. Dictated by: Mely Chi Electronically Signed by: Mely Chi 03/03/2018 4:02 PM Normal [facility] General Medical Progress Not clovis 03-03-2018 Protein mass conc [facility] Patient: NATALIE GERBER [address] MR#: [id number] [place], [place] [address] : 1960 Ord. : Dept: [place]OC [place] [facility] [id number] General Medical Progress Note Service Dt: 03/03/18 Report#: [id number] Adm Dt: 02/24/18 Dis Dt: 03/04/18 General-Medical Progress Note - Patient Visit Reason Visit Reason: PARESTHESIA, DYSPNEA - Chief Complaint Chief Complaint: LUE and facial numbness - I O/Vital Signs I O/VS: Vital Signs Temp 36.3 C L 03/02/18 22:00 Pulse 66 03/02/18 22:00 Resp 18 03/02/18 22:00 BP 99/55 L 03/02/18 22:00 Pulse Ox 100 03/02/18 22:00 Intake Output 03/02/18 03/02/18 03/03/18 11:59 23:59 11:59 Intake Total 740 Balance 740 Weight 146.5 kg Intake: Oral 740 Other: Height 1.65 m - Lab Diagnostic Data Diagrams: 02/25/18 07:10 02/25/18 07:10 Chemistry: Chemistry (Last 24hrs) 03/02/18 03/02/18 16:16 11:44 POC Glucose 92 91 - Medications Meds: Current Medications Acetaminophen (Tylenol) 650 mg PO Q4 PRN PRN Reason: Pain (mild)/Temp above 38.3 C Alprazolam (Xanax) 0.25 mg PO TID PRN PRN Reason: Anxiety Last Admin: 03/02/18 12:55 Dose: 0.25 mg Aspirin (Aspirin, "Baby" (Chewable)) 81 mg PO DAILY [facility] Last Admin: 03/02/18 08:18 Dose: 81 mg Carvedilol (Coreg) 6.25 mg PO DAILY [facility] Last Admin: 03/02/18 08:18 Dose: 6.25 mg Clopidogrel Bisulfate (Plavix) 75 mg PO DAILY [facility] Last Admin: 03/02/18 08:18 Dose: 75 mg Cyanocobalamin (Vitamin B-12) 1,000 mcg PO DAILY [facility] Last Admin: 03/02/18 08:18 Dose: 1,000 mcg Dextrose (Dextrose Syringe) 25 ml IV Q15M PRN PRN Reason: Hypoglycemia Dextrose (Dextrose Syringe) 50 ml IV Q15M PRN PRN Reason: Hypoglycemia Dextrose (Instant Glucose) 37.5 g PO Q15M PRN PRN Reason: Hypoglycemia Enoxaparin Sodium (Lovenox) 40 mg SC DAILY [facility] Last Admin: 03/02/18 08:18 Dose: 40 mg Furosemide (Lasix) 20 mg PO DAILY [facility] Last Admin: 03/02/18 08:18 Dose: 20 mg Gabapentin (Neurontin) 400 mg PO DAILY [facility] Last Admin: 03/02/18 08:16 Dose: 400 mg Glucagon (Glucagon) 1 mg IM Q15M PRN PRN Reason: Hypoglycemia Levothyroxine Sodium (Synthroid) 50 mcg PO QDSYNTH [facility] Last Admin: 03/02/18 05:19 Dose: 50 mcg Lisinopril (Zestril/Prinivil) 5 mg PO DAILY [facility] Last Admin: 03/02/18 08:24 Dose: 5 mg Melatonin (Melatonin) 3 mg PO QHS [facility] Last Admin: 03/02/18 20:20 Dose: 3 mg Metformin HCl (Glucophage Xr) 500 mg PO 0800,1700 [facility] Last Admin: 03/02/18 17:15 Dose: Not Given Methylphenidate HCl (Ritalin) 40 mg PO DAILY [facility] Last Admin: 03/02/18 10:22 Dose: 40 mg Nitroglycerin (Nitrostat) 400 mcg SL Q5M PRN PRN Reason: Chest Pain Oxycodone/Acetaminophen (Percocet) 2 tab PO Q6 PRN PRN Reason: Pain-moderate (4-6/10) Last Admin: 03/03/18 02:25 Dose: 2 tab Pantoprazole Sodium (Protonix) 40 mg PO DAILY [facility] Last Admin: 03/02/18 08:18 Dose: 40 mg Quetiapine Fumarate (Seroquel) 100 mg PO QHS [facility] Last Admin: 03/02/18 20:20 Dose: 100 mg Senna/Docusate Sodium (Senokot-S) 1 tab PO DAILY [facility] Last Admin: 03/02/18 08:18 Dose: 1 tab Simvastatin (Zocor) 40 mg PO QHS [facility] Last Admin: 03/02/18 20:20 Dose: 40 mg Vitamin D (Vitamin D) 2,000 units.intl PO DAILY [facility] Last Admin: 03/02/18 08:18 Dose: 2,000 units.intl Allergies/Adv: Allergies Allergy/AdvReac Type Severity Reaction Status Date / Time ketorolac Allergy Severe Hives Verified 08/02/16 23:25 nalbuphine Allergy Severe Shortness Verified 08/02/16 23:25 of Breath nalbuphine HCl * Allergy Unknown Verified 10/08/16 21:16 [facility] - Assessment/Plan (1) Shoulder pain, right Status: Acute (2) Diabetes Status: Chronic Qualifiers: Diabetes mellitus type: type 2 Diabetes mellitus prison insulin use: without prison use (3) Paresthesia and pain of left extremity Status: Acute - Comments Impression: 03/03/18 05:42 stable doing well MRI pending today further Tx per MRI results possible discharge see orders Normal [facility] Protein mass conc [facility] Patient: NATALIE GERBER [address] MR#: [id number] [place], [place] [address] : 1960 Ord[address] : Dept: PDOC [place] [facility] [id number] General Medical Progress Note Service Dt: 03/03/18 Report#: [id number] Adm Dt: 02/24/18 Dis Dt: General-Medical Progress Note - Patient Visit Reason Visit Reason: PARESTHESIA, DYSPNEA - Chief Complaint Chief Complaint: LUE and facial numbness - Subjective Narrative HPI/ROS: pt seen chart reviewed talked with RN pt still with shoulder pain percocet helping no new problems MRI ordered by DR THAKKAR pending today - Review of Systems Respiratory: Reports: no symptoms reported. Denies: shortness of breath, SOB with exertion Cardiovascular: Reports: no symptoms, orthopnea. Denies: chest pain, palpitations, dyspnea on exertion Gastrointestinal: Reports: no symptoms (shoulder mildly tender to palpation) Genitourinary: Reports: no symptoms Musculoskeletal: Reports: other (shoulder pain) - I O/Vital Signs I O/VS: Vital Signs Temp 36.3 C L 03/02/18 22:00 Pulse 66 03/02/18 22:00 Resp 18 03/02/18 22:00 BP 99/55 L 03/02/18 22:00 Pulse Ox 100 03/02/18 22:00 Intake Output 03/02/18 03/02/18 03/03/18 11:59 23:59 11:59 Intake Total 740 Balance 740 Weight 146.5 kg Intake: Oral 740 Other: Height 1.65 m - Lab Diagnostic Data Diagrams: 02/25/18 07:10 02/25/18 07:10 Chemistry: Chemistry (Last 24hrs) 03/02/18 03/02/18 16:16 11:44 POC Glucose 92 91 - Medications Meds: Current Medications Acetaminophen (Tylenol) 650 mg PO Q4 PRN PRN Reason: Pain (mild)/Temp above 38.3 C Alprazolam (Xanax) 0.25 mg PO TID PRN PRN Reason: Anxiety Last Admin: 03/02/18 12:55 Dose: 0.25 mg Aspirin (Aspirin, "Baby" (Chewable)) 81 mg PO DAILY [facility] Last Admin: 03/02/18 08:18 Dose: 81 mg Carvedilol (Coreg) 6.25 mg PO DAILY [facility] Last Admin: 03/02/18 08:18 Dose: 6.25 mg Clopidogrel Bisulfate (Plavix) 75 mg PO DAILY [facility] Last Admin: 03/02/18 08:18 Dose: 75 mg Cyanocobalamin (Vitamin B-12) 1,000 mcg PO DAILY [facility] Last Admin: 03/02/18 08:18 Dose: 1,000 mcg Dextrose (Dextrose Syringe) 25 ml IV Q15M PRN PRN Reason: Hypoglycemia Dextrose (Dextrose Syringe) 50 ml IV Q15M PRN PRN Reason: Hypoglycemia Dextrose (Instant Glucose) 37.5 g PO Q15M PRN PRN Reason: Hypoglycemia Enoxaparin Sodium (Lovenox) 40 mg SC DAILY [facility] Last Admin: 03/02/18 08:18 Dose: 40 mg Furosemide (Lasix) 20 mg PO DAILY [facility] Last Admin: 03/02/18 08:18 Dose: 20 mg Gabapentin (Neurontin) 400 mg PO DAILY [facility] Last Admin: 03/02/18 08:16 Dose: 400 mg Glucagon (Glucagon) 1 mg IM Q15M PRN PRN Reason: Hypoglycemia Levothyroxine Sodium (Synthroid) 50 mcg PO QDSYNTH [facility] Last Admin: 03/02/18 05:19 Dose: 50 mcg Lisinopril (Zestril/Prinivil) 5 mg PO DAILY [facility] Last Admin: 03/02/18 08:24 Dose: 5 mg Melatonin (Melatonin) 3 mg PO QHS [facility] Last Admin: 03/02/18 20:20 Dose: 3 mg Metformin HCl (Glucophage Xr) 500 mg PO 0800,1700 [facility] Last Admin: 03/02/18 17:15 Dose: Not Given Methylphenidate HCl (Ritalin) 40 mg PO DAILY [facility] Last Admin: 03/02/18 10:22 Dose: 40 mg Nitroglycerin (Nitrostat) 400 mcg SL Q5M PRN PRN Reason: Chest Pain Oxycodone/Acetaminophen (Percocet) 2 tab PO Q6 PRN PRN Reason: Pain-moderate (4-6/10) Last Admin: 03/03/18 02:25 Dose: 2 tab Pantoprazole Sodium (Protonix) 40 mg PO DAILY [facility] Last Admin: 03/02/18 08:18 Dose: 40 mg Quetiapine Fumarate (Seroquel) 100 mg PO QHS [facility] Last Admin: 03/02/18 20:20 Dose: 100 mg Senna/Docusate Sodium (Senokot-S) 1 tab PO DAILY [facility] Last Admin: 03/02/18 08:18 Dose: 1 tab Simvastatin (Zocor) 40 mg PO QHS [facility] Last Admin: 03/02/18 20:20 Dose: 40 mg Vitamin D (Vitamin D) 2,000 units.intl PO DAILY [facility] Last Admin: 03/02/18 08:18 Dose: 2,000 units.intl Allergies/Adv: Allergies Allergy/AdvReac Type Severity Reaction Status Date / Time ketorolac Allergy Severe Hives Verified 08/02/16 23:25 nalbuphine Allergy Severe Shortness Verified 08/02/16 23:25 of Breath nalbuphine HCl * Allergy Unknown Verified 10/08/16 21:16 [From [facility]] - Assessment/Plan (1) Shoulder pain, right Status: Acute (2) Diabetes Status: Chronic Qualifiers: Diabetes mellitus type: type 2 Diabetes mellitus prison insulin use: without 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 (3) Paresthesia and pain of left extremity Status: Acute - Comments Impression: 03/03/18 05:42 stable doing well MRI pending today further Tx per MRI results possible discharge see orders Normal [facility] Glucose, Point of Careon Glucose mass conc 105 mg/dL Normal 80-110 [facility] Comment on above: Performed By: #### C BC, BMP, TROP, BNP, TSH ####[facility] [place] [address] Glucose mass conc 93 mg/dL Normal 80-110 [facility] Comment on above: Performed By: #### C BC, BMP, TROP, BNP, TSH ####[facility] [place] [address] Consultation Reporton 2017 Consultation Report [facility] Patient: NATALIE GERBER [address] [facility] MR#: [id number] [place], [place] [address] : 1960 Ord[place]: Dept: PDOC [place] [facility] [place] [facility] Consultation Service Dt: 03/02/18 Report#: [id number] Adm Dt: 02/24/18 Dis Dt: Initial Physician Consultation - Consultation Requesting Physician: Filiberto Michel - PCP/Chief Complaint Primary Care Physician: Filiberto Michel Chief Complaint: LUE and facial numbness - Past Medical History Neurological: CVA/Stroke, TIA/Transient Ischemic Attack(s) Other Neurological Hx: TPA 3 TIMES ADMINISTERED ENT/Eye: Eye problem Other ENT/Eye Hx: wears glassess Cardiac: Angioplasty, Coronary Artery Disease/CAD, Cardiac Cath, CHF, Heart Attack ([place]), High Cholesterol, HTN Respiratory: Pulmonary Embolism/PE, Pneumonia Other Respiratory HX: PE in 1998 GI: Abdominal Surgery, Diverticulitis, Gall Bladder Disease, GERD Other GI HX: hernia repair , Male: Enlarged Prostate Musculoskeletal: Arthritis, Back surgery, Degenerative Disc Disease, Degenerative Joint Disease, Hip replacement, left, Osteoarthritis Other Musculoskelatal Hx: laminectomy, L5,L4,L3 FUSED TOGETHER Endocrine: Hypothyroidism Hematologic: Anemia, Clotting Problems Infectious/Other Disease: MRSA Other Infectious or Other Hx: MRSA-1999 - Social History Smoking Status: Never smoker Does Patient Dip or Chew Tobacco: No Alcohol Use: No Use of Substances/Recreational Drugs: No Comment: Lives in [place] [facility] with his . 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 - Family Health History Father Family Member Hx: Stroke, Heart Disease Mother Family Member Hx: Stroke, Heart Disease Sister Family Member Hx: Heart Disease - Allergies Allergies/Adverse Reactions: Allergies ketorolac Allergy (Severe, Verified 08/02/16 23:25) Hives nalbuphine Allergy (Severe, Verified 08/02/16 23:25) Shortness of Breath nalbuphine HCl * [From [facility]] Allergy (Verified 10/08/16 21:16) Unknown - Medications Home Medications: Aspirin [Aspirin, "Baby" (CHEWABLE)] 81 mg PO DAILY 07/14/14 [History Last Taken 08/04/16 10:05 81mg] Carvedilol [Coreg] 6.25 mg PO DAILY 07/14/14 [History Last Taken 08/04/16 10:05 6.25mg] Clopidogrel Bisulfate [Plavix] 75 mg PO DAILY 07/14/14 [History Last Taken 08/04/16 10:05 75mg] Simvastatin [Zocor] 40 mg PO QHS 07/20/15 [History Last Taken 08/03/16 20:30 40mg] Esomeprazole Magnesium [Nexium] 40 mg PO DAILY 07/19/16 [History Last Taken Unknown] Lisinopril [Zestril/Prinivil] 5 mg PO DAILY 08/02/16 [History Last Taken 08/04/16 10:05 10mg] Furosemide 20 mg PO DAILY 11/14/16 [History Last Taken Unknown] Levothyroxine Sodium 50 mcg PO DAILY 11/14/16 [History Last Taken Unknown] Melatonin 3 mg PO QHS 11/14/16 [History Last Taken Unknown] Nitroglycerin 0.4 mg SL Q5M PRN 11/14/16 [History Last Taken Unknown] ALPRAZolam [Xanax] 0.25 mg PO TID PRN 02/24/18 [History Last Taken Unknown] Cholecalciferol (Vitamin D3) [Vitamin D3] 1 cap PO DAILY 02/24/18 [History Last Taken Unknown] Cyanocobalamin [Vitamin B-12] 1,000 mcg PO DAILY 02/24/18 [History Last Taken Unknown] Dextroamphetamine/Amphetamin e [Adderall 20 mg Tablet] 20 mg PO DAILY 02/24/18 [History Last Taken Unknown] Gabapentin 400 mg PO DAILY 02/24/18 [History Last Taken Unknown] Oxycodone HCl/Acetaminophen [Percocet 5-325 mg Tablet] 2 each PO Q6 PRN 02/24/18 [History Last Taken Unknown] QUEtiapine FUMARATE [SEROquel] 100 mg PO QHS 02/24/18 [History Last Taken 02/24/18 20:00] Sennosides/Docusate Sodium [Senna Laxative Tablet] 1 each PO DAILY 02/24/18 [History Last Taken Unknown] Current Medications: Current Medications Acetaminophen (Tylenol) 650 mg PO Q4 PRN PRN Reason: Pain (mild)/Temp above 38.3 C Alprazolam (Xanax) 0.25 mg PO TID PRN PRN Reason: Anxiety Last Admin: 03/01/18 21:05 Dose: 0.25 mg Aspirin (Aspirin, "Baby" (Chewable)) 81 mg PO DAILY [facility] Last Admin: 03/02/18 08:18 Dose: 81 mg Carvedilol (Coreg) 6.25 mg PO DAILY [facility] Last Admin: 03/02/18 08:18 Dose: 6.25 mg Clopidogrel Bisulfate (Plavix) 75 mg PO DAILY [facility] Last Admin: 03/02/18 08:18 Dose: 75 mg Cyanocobalamin (Vitamin B-12) 1,000 mcg PO DAILY [facility] Last Admin: 03/02/18 08:18 Dose: 1,000 mcg Dextrose (Dextrose Syringe) 25 ml IV Q15M PRN PRN Reason: Hypoglycemia Dextrose (Dextrose Syringe) 50 ml IV Q15M PRN PRN Reason: Hypoglycemia Dextrose (Instant Glucose) 37.5 g PO Q15M PRN PRN Reason: Hypoglycemia Enoxaparin Sodium (Lovenox) 40 mg SC DAILY [facility] Last Admin: 03/02/18 08:18 Dose: 40 mg Furosemide (Lasix) 20 mg PO DAILY [facility] Last Admin: 03/02/18 08:18 Dose: 20 mg Gabapentin (Neurontin) 400 mg PO DAILY [facility] Last Admin: 03/02/18 08:16 Dose: 400 mg Glucagon (Glucagon) 1 mg IM Q15M PRN PRN Reason: Hypoglycemia Levothyroxine Sodium (Synthroid) 50 mcg PO QDSYNTH [facility] Last Admin: 03/02/18 05:19 Dose: 50 mcg Lisinopril (Zestril/Prinivil) 5 mg PO DAILY [facility] Last Admin: 03/02/18 08:24 Dose: 5 mg Melatonin (Melatonin) 3 mg PO QHS [facility] Last Admin: 03/01/18 21:09 Dose: 3 mg Metformin HCl (Glucophage Xr) 500 mg PO 0800,1700 [facility] Last Admin: 03/02/18 08:04 Dose: Not Given Methylphenidate HCl (Ritalin) 40 mg PO DAILY [facility] Last Admin: 03/02/18 10:22 Dose: 40 mg Nitroglycerin (Nitrostat) 400 mcg SL Q5M PRN PRN Reason: Chest Pain Oxycodone/Acetaminophen (Percocet) 2 tab PO Q6 PRN PRN Reason: Pain-moderate (4-6/10) Last Admin: 03/02/18 08:16 Dose: 2 tab Pantoprazole Sodium (Protonix) 40 mg PO DAILY [facility] Last Admin: 03/02/18 08:18 Dose: 40 mg Quetiapine Fumarate (Seroquel) 100 mg PO QHS [facility] Last Admin: 03/01/18 21:01 Dose: Not Given Senna/Docusate Sodium (Senokot-S) 1 tab PO DAILY [facility] Last Admin: 03/02/18 08:18 Dose: 1 tab Simvastatin (Zocor) 40 mg PO QHS [facility] Last Admin: 03/01/18 21:01 Dose: 40 mg Vitamin D (Vitamin D) 2,000 units.intl PO DAILY [facility] Last Admin: 03/02/18 08:18 Dose: 2,000 units.intl - Diagnostic Studies Lab Data: Labs (last 24 hrs) 03/01/18 03/01/18 03/01/18 19:36 16:42 11:19 POC Glucose 102 96 82 - Subjective Narrative ROS: Review of Systems completed. - I O/Vital Signs I O/VS: Intake/Output/Wt 02/27/18 02/28/18 03/01/18 03/02/18 23:59 23:59 23:59 23:59 Intake Total 1086 1040 1320 Balance 1086 1040 1320 Weight 146.5 kg Intake: Oral 1086 1040 1320 Other: Height 1.65 m Vital Signs (last 24 hrs) Temp Pulse Resp BP Pulse Ox 03/02/18 08:24 65 127/57 L 03/02/18 08:18 65 127/57 L 03/02/18 05:21 36.8 C 66 18 116/70 93 03/01/18 21:23 70 03/01/18 21:13 36.6 C 68 20 142/92 H 99 03/01/18 14:00 36.2 C L 68 20 107/62 97 Oxygen: Oxygen O2 Sat by Pulse Oximetry 93 Oxygen Delivery Method Room Air - Comments Impression Comments: 03/02/18 11:19 Patient here for evaluation of left arm numbness weakness or dysesthesias radiating all the way up to his face. He has been evaluated for neurologic and vascular issues on that left side. We've been asked to see the patient in regard to right shoulder pain. Patient relates a gradual onset of severe symptoms over the past several months. He believes it began after he fell July 2017 sustaining a right wrist fracture injury. Unclear regard to timing of when shoulder symptoms began. Currently has constant shoulder pain it is worse at night it is worse with movement and he feels very weak. Because of history of stroke and weakness undoubtedly exacerbated by obesity patient has been residing in a nursing facility for approximately 18 months. He has been doing physical therapy for his arm there recently and he describes that as painful denies numbness or tingling in the right hand. He has had no evaluation by an orthopedic surgeon. A neurosurgeon who saw him in [place] so that a CT scan presumably done for his neck showed findings suggestive of a right rotator cuff tear I do not have any information or verification of that. On exam patient is seems comfortable at rest but when he has to move the shoulder immediately winces in pain and holds the right shoulder with his left hand. When distracted he actually will move the arm better than when asked to do specific motions or maneuvers. With the assistance one can flex and abduct 90? with discomfort. External rotation 45?. Patient is able to maintain antigravity flexion abduction and for very brief period of time and even sustain resistance in all planes. Difficult to assess impingement tests are wrist pain with any movement of the shoulder. X-rays 3 views reviewed unremarkable right shoulder. Impression right shoulder pain appears to be 3-6 months duration and per patient getting worse. Patient appears convinced he has a rotator cuff tear he quite possibly could have a small cuff tear but I am doubtful that he has a large tear would recommend MRI for further evaluation of this right shoulder. In the interim motion exercises are encouraged. Based on MRI findings additional recommendations would be made. Happy to see the patient when necessary. From an orthopedic perspective additional evaluation can be done at any time Normal [facility] General Medical Progress Not clovis 03-02-2018 Protein mass conc [facility] Patient: NATALIE GERBER [address] [facility] MR#: [id number] [place], [place] [address] : 1960 Ord. : Dept: PDOC [place] [facility] [id number] General Medical Progress Note Service Dt: 03/02/18 Report#: [id number] Adm Dt: 02/24/18 Dis Dt: General-Medical Progress Note - Patient Visit Reason Visit Reason: PARESTHESIA, DYSPNEA - Chief Complaint Chief Complaint: LUE and facial numbness - Subjective Narrative HPI/ROS: right shoulder pain - Review of Systems All systems: 10 point review of systems negative except for what is stated in HPI - I O/Vital Signs I O/VS: Vital Signs Temp 36.8 C 03/02/18 05:21 Pulse 65 03/02/18 08:24 Resp 18 03/02/18 05:21 BP 127/57 L 03/02/18 08:24 Pulse Ox 93 03/02/18 05:21 Intake Output 03/01/18 03/01/18 03/02/18 11:59 23:59 11:59 Intake Total 360 960 Balance 360 960 Weight 146.5 kg Intake: Oral 360 960 Other: Height 1.65 m - Patient Exam General appearance: obese Limitations: Positive: physical limitation Head: Positive: atraumatic Eyes: Positive: normal appearance Pupils: Positive: equal and reactive ENT: Positive: normal exam Neck: Positive: supple Respiratory: Positive: normal lung sounds bilaterally Cardiovascular: Positive: regular rate, normal rhythm, normal heart sounds GI/Abdominal: Positive: soft, nontender, normal bowel sounds Extremities: Positive: tenderness Neurological: Positive: alert, oriented X3 Integumentary: Positive: no rash - Lab Diagnostic Data Diagrams: 02/25/18 07:10 02/25/18 07:10 Chemistry: Chemistry (Last 24hrs) 03/01/18 03/01/18 03/01/18 19:36 16:42 11:19 POC Glucose 102 96 82 - Medications Meds: Current Medications Acetaminophen (Tylenol) 650 mg PO Q4 PRN PRN Reason: Pain (mild)/Temp above 38.3 C Alprazolam (Xanax) 0.25 mg PO TID PRN PRN Reason: Anxiety Last Admin: 03/01/18 21:05 Dose: 0.25 mg Aspirin (Aspirin, "Baby" (Chewable)) 81 mg PO DAILY [facility] Last Admin: 03/02/18 08:18 Dose: 81 mg Carvedilol (Coreg) 6.25 mg PO DAILY [facility] Last Admin: 03/02/18 08:18 Dose: 6.25 mg Clopidogrel Bisulfate (Plavix) 75 mg PO DAILY [facility] Last Admin: 03/02/18 08:18 Dose: 75 mg Cyanocobalamin (Vitamin B-12) 1,000 mcg PO DAILY [facility] Last Admin: 03/02/18 08:18 Dose: 1,000 mcg Dextrose (Dextrose Syringe) 25 ml IV Q15M PRN PRN Reason: Hypoglycemia Dextrose (Dextrose Syringe) 50 ml IV Q15M PRN PRN Reason: Hypoglycemia Dextrose (Instant Glucose) 37.5 g PO Q15M PRN PRN Reason: Hypoglycemia Enoxaparin Sodium (Lovenox) 40 mg SC DAILY [facility] Last Admin: 03/02/18 08:18 Dose: 40 mg Furosemide (Lasix) 20 mg PO DAILY [facility] Last Admin: 03/02/18 08:18 Dose: 20 mg Gabapentin (Neurontin) 400 mg PO DAILY [facility] Last Admin: 03/02/18 08:16 Dose: 400 mg Glucagon (Glucagon) 1 mg IM Q15M PRN PRN Reason: Hypoglycemia Levothyroxine Sodium (Synthroid) 50 mcg PO QDSYNTH [facility] Last Admin: 03/02/18 05:19 Dose: 50 mcg Lisinopril (Zestril/Prinivil) 5 mg PO DAILY [facility] Last Admin: 03/02/18 08:24 Dose: 5 mg Melatonin (Melatonin) 3 mg PO QHS [facility] Last Admin: 03/01/18 21:09 Dose: 3 mg Metformin HCl (Glucophage Xr) 500 mg PO 0800,1700 [facility] Last Admin: 03/02/18 08:04 Dose: Not Given Methylphenidate HCl (Ritalin) 40 mg PO DAILY [facility] Last Admin: 03/01/18 07:57 Dose: 40 mg Nitroglycerin (Nitrostat) 400 mcg SL Q5M PRN PRN Reason: Chest Pain Oxycodone/Acetaminophen (Percocet) 2 tab PO Q6 PRN PRN Reason: Pain-moderate (4-6/10) Last Admin: 03/02/18 08:16 Dose: 2 tab Pantoprazole Sodium (Protonix) 40 mg PO DAILY [facility] Last Admin: 03/02/18 08:18 Dose: 40 mg Quetiapine Fumarate (Seroquel) 100 mg PO QHS [facility] Last Admin: 03/01/18 21:01 Dose: Not Given Senna/Docusate Sodium (Senokot-S) 1 tab PO DAILY [facility] Last Admin: 03/02/18 08:18 Dose: 1 tab Simvastatin (Zocor) 40 mg PO QHS [facility] Last Admin: 03/01/18 21:01 Dose: 40 mg Vitamin D (Vitamin D) 2,000 units.intl PO DAILY [facility] Last Admin: 03/02/18 08:18 Dose: 2,000 units.intl Allergies/Adv: Allergies Allergy/AdvReac Type Severity Reaction Status Date / Time ketorolac Allergy Severe Hives Verified 08/02/16 23:25 nalbuphine Allergy Severe Shortness Verified 08/02/16 23:25 of Breath nalbuphine HCl * Allergy Unknown Verified 10/08/16 21:16 [From [facility]] - Assessment/Plan (1) Facial paresthesia Status: Acute (2) Arm paresthesia, left Status: Acute (3) DVT prophylaxis Status: Acute (4) Dyspnea Status: Acute (5) Morbid obesity Status: Acute (6) Diabetes Status: Chronic Qualifiers: Diabetes mellitus type: type 2 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: without 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 (7) CHF exacerbation Status: Suspected Qualifiers: Heart failure type: unspecified Qualified Code(s): I50.9 - Heart failure, unspecified (8) Chronic back pain Status: Chronic Qualifiers: Back pain location: back pain in unspecified location Back pain laterality: midline Qualified Code(s): M54.9 - Dorsalgia, unspecified (9) GERD (gastroesophageal reflux disease) Status: Chronic Qualifiers: Esophagitis presence: esophagitis presence not specified Qualified Code(s): K21.9 - Gastro-esophageal reflux disease without esophagitis (10) HLD (hyperlipidemia) Status: Chronic Qualifiers: Hyperlipidemia type: unspecified Qualified Code(s): E78.5 - Hyperlipidemia, unspecified (11) Hypothyroidism Status: Chronic Qualifiers: Hypothyroidism type: acquired Qualified Code(s): E03.9 - Hypothyroidism, unspecified (12) Shoulder pain, right Status: Acute - Comments Impression: 02/24/18 16:38 Parasthesias, etiology uncertain. Many co-morbidities. See orders for 4rx plan. 02/25/18 11:25 Consults appreciated, w/u continues 02/27/18 08:44 Waiting for insurance approval for ecf, discharge delayed for this reason. 02/28/18 09:06 waiting for insurance approval 03/01/18 07:57 Waiting for ecf approval 03/02/18 08:34 xray and Orthopedic consult for right shoulder pain. - Patient Time (minutes) Time Spent w/Patient: 31 Normal [facility] [place] Glucose, Point of Careon Glucose mass conc 92 mg/dL Normal 80-110 [facility] Comment on above: Performed By: #### C BC, BMP, TROP, BNP, TSH ####[facility] [place] [place], [place] [id number] Glucose mass conc 91 mg/dL Normal 80-110 [facility] [place] Comment on above: Performed By: #### C BC, BMP, TROP, BNP, TSH ####[address] [address] Shoulder Right -Min 2 Viewso n 03-02-2018 Shoulder Right -Min 2 Views [facility] Patient: NATALIE GERBER [address] [facility] MR#: [id number] [place], [place] [address] : [address] Filibreto Michel MD Dept: Diagnostic Imaging [place] [facility] [id number] DI REPORT Service Dt:03/02/18 Report#: [id number] Adm Dt: 02/24/18 Dis Dt: Comments: STUDY: CR Shoulder Right -Min 2 Views; 03/02/2018 10:45 am INDICATION: pain. COMPARISON: None. ACCESSION NUMBER(S): [id number] ORDERING CLINICIAN: Filiberto Michel FINDINGS: There are moderate degenerative changes in the glenohumeral joint and mild degenerative changes in the acromioclavicular joint. There is spurring from the inferior acromion. There is no acute fracture or dislocation. No definite aggressive osteolytic or osteoblastic lesion is seen. IMPRESSION: No definite acute findings. See discussion above Dictated by: Miguel Angel Gray Electronically Signed by: Miguel Angel Gray 03/02/2018 1:24 PM Normal [facility] Endocrinology Progress Noteo n 03-01-2018 Protein mass conc [facility] Patient: NATALIE GERBER [address] MR#: [id number] [place], [place] [address] : 1960 [address] .: Dept: PDOC [place] [facility] [place] [facility]- Endocrinology Progress Note Service Dt: 03/01/18 Report#: [id number] Adm Dt: 02/24/18 Dis Dt: Endocrine Progress Note - Patient Visit Reason Visit Reason: PARESTHESIA, DYSPNEA - Chief Complaint Chief Complaint: LUE and facial numbness - Subjective Narrative HPI/ROS: d/w RN pt has been declining the intake of metformin He understands that this is to reduce his insulin resistance and prevent diabetes. He keeps thinking that it will cause him DM. Yet he is asking for a regular diet!!! I will sign off. - I O/Vital Signs I O/VS: Vital Signs Temp 36.0 C L 03/01/18 05:28 Pulse 69 03/01/18 05:28 Resp 20 03/01/18 05:28 BP 107/72 03/01/18 05:28 Pulse Ox 97 03/01/18 05:28 Intake Output 02/28/18 02/28/18 03/01/18 11:59 23:59 11:59 Intake Total 240 800 Balance 240 800 Intake: Oral 240 800 - Lab Diagnostic Data Diagrams: 02/25/18 07:10 02/25/18 07:10 Chemistry: Chemistry (Last 24hrs) 02/28/18 16:48 POC Glucose 95 - Medications Meds: Current Medications Acetaminophen (Tylenol) 650 mg PO Q4 PRN PRN Reason: Pain (mild)/Temp above 38.3 C Alprazolam (Xanax) 0.25 mg PO TID PRN PRN Reason: Anxiety Last Admin: 02/28/18 11:50 Dose: 0.25 mg Aspirin (Aspirin, "Baby" (Chewable)) 81 mg PO DAILY [facility] Last Admin: 02/28/18 08:51 Dose: 81 mg Carvedilol (Coreg) 6.25 mg PO DAILY [facility] Last Admin: 02/28/18 08:31 Dose: Not Given Clopidogrel Bisulfate (Plavix) 75 mg PO DAILY [facility] Last Admin: 02/28/18 08:51 Dose: 75 mg Cyanocobalamin (Vitamin B-12) 1,000 mcg PO DAILY [facility] Last Admin: 02/28/18 08:51 Dose: 1,000 mcg Dextrose (Dextrose Syringe) 25 ml IV Q15M PRN PRN Reason: Hypoglycemia Dextrose (Dextrose Syringe) 50 ml IV Q15M PRN PRN Reason: Hypoglycemia Dextrose (Instant Glucose) 37.5 g PO Q15M PRN PRN Reason: Hypoglycemia Enoxaparin Sodium (Lovenox) 40 mg SC DAILY [facility] Last Admin: 02/28/18 08:49 Dose: 40 mg Furosemide (Lasix) 20 mg PO DAILY [facility] Last Admin: 02/28/18 08:50 Dose: 20 mg Gabapentin (Neurontin) 400 mg PO DAILY [facility] Last Admin: 02/28/18 08:51 Dose: 400 mg Glucagon (Glucagon) 1 mg IM Q15M PRN PRN Reason: Hypoglycemia Levothyroxine Sodium (Synthroid) 50 mcg PO QDSYNTH [facility] Last Admin: 03/01/18 05:22 Dose: 50 mcg Lisinopril (Zestril/Prinivil) 5 mg PO DAILY [facility] Last Admin: 02/28/18 08:32 Dose: Not Given Melatonin (Melatonin) 3 mg PO QHS [facility] Last Admin: 02/28/18 21:22 Dose: 3 mg Metformin HCl (Glucophage Xr) 500 mg PO 0800,1700 [facility] Last Admin: 02/28/18 15:06 Dose: Not Given Methylphenidate HCl (Ritalin) 40 mg PO DAILY [facility] Last Admin: 02/28/18 09:13 Dose: 40 mg Nitroglycerin (Nitrostat) 400 mcg SL Q5M PRN PRN Reason: Chest Pain Oxycodone/Acetaminophen (Percocet) 2 tab PO Q6 PRN PRN Reason: Pain-moderate (4-6/10) Last Admin: 03/01/18 05:22 Dose: 2 tab Pantoprazole Sodium (Protonix) 40 mg PO DAILY [facility] Last Admin: 09/29/18 08:50 Dose: 40 mg Quetiapine Fumarate (Seroquel) 100 mg PO QHS [facility] Last Admin: 02/28/18 21:22 Dose: 100 mg Senna/Docusate Sodium (Senokot-S) 1 tab PO DAILY [facility] Last Admin: 02/28/18 08:50 Dose: 1 tab Simvastatin (Zocor) 40 mg PO QHS [facility] Last Admin: 02/28/18 21:22 Dose: 40 mg Vitamin D (Vitamin D) 2,000 units.intl PO DAILY [facility] Last Admin: 02/28/18 08:50 Dose: 2,000 units.intl Allergies/Adv: Allergies Allergy/AdvReac Type Severity Reaction Status Date / Time ketorolac Allergy Severe Hives Verified 08/02/16 23:25 nalbuphine Allergy Severe Shortness Verified 08/02/16 23:25 of Breath nalbuphine HCl * Allergy Unknown Verified 10/08/16 21:16 [From Carisa] - Comments Impression Comments: 02/25/18 13:08 patient was probably have metabolic syndrome. although i doubt that he has dipti diabetes but he does have insulin resistance due to his truncal obesity. we will do a c-peptide level. we will see when was the last time he had an a1c done. we will continue to monitor his glucose levels via blood draws. he is very much objecting to the fact that i asked him if he has diabetes possible new [id number] of old cva. neurology service will be on consult. thyroid disease. this will be monitored and will do levels to detect adequacy. congestive heart failure and-coronary artery disease. hyperlipidemia. patient is on a statin. hypertension. patient is radha inhibitor and beta-alpha blockade. vitamin d deficiency. will ascertain the adequacy of treatment mental health problems. vitamin b12 deficiency on oral replacement. high bmi. patient was too sensitive to discuss this at this point. intake of PPI. will monitor magnesium levels. 02/26/18 07:48 Prediabetes. Patient C-peptide is pending. A1c is 6.1%. Any A1c between 6.5% and 6.0% is considered to be prediabetes. Will start patient on metformin. hyperlipidemia. patient is on a statin. hypertension. patient is radha inhibitor and beta-alpha blockade. vitamin d deficiency. will ascertain the adequacy of treatment mental health problems. vitamin b12 deficiency on oral replacement. high bmi. patient was too sensitive to discuss this at this point. intake of PPI. will monitor magnesium levels. 02/27/18 06:54 Patient is tolerating metformin well. C-peptide came back, upper normal, consistent with a diagnosis of insulin resistance-metabolic syndrome 02/28/18 06:58 Please see PI for counseling No AE's from metformin Hyperlipidemia, High BMI Insulin resistance. High normal C-peptide. Normal [facility] General Medical Progress Not clovis 03-01-2018 Protein mass conc [facility] Patient: NATALIE GERBER [address] MR#: [id number] [place], [place] [address] : 1960 [address] : Dept: PDOC [place] [facility] [place] [facility] General Medical Progress Note Service Dt: 03/01/18 Report#: [id number] Adm Dt: 02/24/18 Dis Dt: General-Medical Progress Note - Patient Visit Reason Visit Reason: PARESTHESIA, DYSPNEA - Chief Complaint Chief Complaint: LUE and facial numbness - Subjective Narrative HPI/ROS: waiting for ecf - Review of Systems All systems: 10 point review of systems negative except for what is stated in HPI - I O/Vital Signs I O/VS: Vital Signs Temp 36.0 C L 03/01/18 05:28 Pulse 69 03/01/18 05:28 Resp 20 03/01/18 05:28 BP 107/72 03/01/18 05:28 Pulse Ox 97 03/01/18 05:28 Intake Output 02/28/18 02/28/18 03/01/18 11:59 23:59 11:59 Intake Total 240 800 Balance 240 800 Intake: Oral 240 800 - Patient Exam General appearance: anxious, obese Limitations: Positive: no limitations Head: Positive: atraumatic Eyes: Positive: normal appearance Pupils: Positive: equal and reactive ENT: Positive: normal exam Neck: Positive: normal inspection Respiratory: Positive: normal lung sounds bilaterally Cardiovascular: Positive: regular rate, normal rhythm GI/Abdominal: Positive: soft, nontender Extremities: Positive: negative jordan's sign bilaterally, leg edema Neurological: Positive: alert, oriented X3 Integumentary: Positive: no rash - Lab Diagnostic Data Diagrams: 02/25/18 07:10 02/25/18 07:10 Chemistry: Chemistry (Last 24hrs) 02/28/18 16:48 POC Glucose 95 - Medications Meds: Current Medications Acetaminophen (Tylenol) 650 mg PO Q4 PRN PRN Reason: Pain (mild)/Temp above 38.3 C Alprazolam (Xanax) 0.25 mg PO TID PRN PRN Reason: Anxiety Last Admin: 02/28/18 11:50 Dose: 0.25 mg Aspirin (Aspirin, "Baby" (Chewable)) 81 mg PO DAILY [facility] Last Admin: 02/28/18 08:51 Dose: 81 mg Carvedilol (Coreg) 6.25 mg PO DAILY [facility] Last Admin: 02/28/18 08:31 Dose: Not Given Clopidogrel Bisulfate (Plavix) 75 mg PO DAILY [facility] Last Admin: 02/28/18 08:51 Dose: 75 mg Cyanocobalamin (Vitamin B-12) 1,000 mcg PO DAILY [facility] Last Admin: 02/28/18 08:51 Dose: 1,000 mcg Dextrose (Dextrose Syringe) 25 ml IV Q15M PRN PRN Reason: Hypoglycemia Dextrose (Dextrose Syringe) 50 ml IV Q15M PRN PRN Reason: Hypoglycemia Dextrose (Instant Glucose) 37.5 g PO Q15M PRN PRN Reason: Hypoglycemia Enoxaparin Sodium (Lovenox) 40 mg SC DAILY [facility] Last Admin: 02/28/18 08:49 Dose: 40 mg Furosemide (Lasix) 20 mg PO DAILY [facility] Last Admin: 02/28/18 08:50 Dose: 20 mg Gabapentin (Neurontin) 400 mg PO DAILY [facility] Last Admin: 02/28/18 08:51 Dose: 400 mg Glucagon (Glucagon) 1 mg IM Q15M PRN PRN Reason: Hypoglycemia Levothyroxine Sodium (Synthroid) 50 mcg PO QDSYNTH [facility] Last Admin: 03/01/18 05:22 Dose: 50 mcg Lisinopril (Zestril/Prinivil) 5 mg PO DAILY [facility] Last Admin: 02/28/18 08:32 Dose: Not Given Melatonin (Melatonin) 3 mg PO QHS [facility] Last Admin: 02/28/18 21:22 Dose: 3 mg Metformin HCl (Glucophage Xr) 500 mg PO 0800,1700 [facility] Last Admin: 02/28/18 15:06 Dose: Not Given Methylphenidate HCl (Ritalin) 40 mg PO DAILY [facility] Last Admin: 02/28/18 09:13 Dose: 40 mg Nitroglycerin (Nitrostat) 400 mcg SL Q5M PRN PRN Reason: Chest Pain Oxycodone/Acetaminophen (Percocet) 2 tab PO Q6 PRN PRN Reason: Pain-moderate (4-6/10) Last Admin: 03/01/18 05:22 Dose: 2 tab Pantoprazole Sodium (Protonix) 40 mg PO DAILY [facility] Last Admin: 02/28/18 08:50 Dose: 40 mg Quetiapine Fumarate (Seroquel) 100 mg PO QHS [facility] Last Admin: 02/28/18 21:22 Dose: 100 mg Senna/Docusate Sodium (Senokot-S) 1 tab PO DAILY [facility] Last Admin: 02/28/18 08:50 Dose: 1 tab Simvastatin (Zocor) 40 mg PO QHS [facility] Last Admin: 02/28/18 21:22 Dose: 40 mg Vitamin D (Vitamin D) 2,000 units.intl PO DAILY [facility] Last Admin: 02/28/18 08:50 Dose: 2,000 units.intl Allergies/Adv: Allergies Allergy/AdvReac Type Severity Reaction Status Date / Time ketorolac Allergy Severe Hives Verified 08/02/16 23:25 nalbuphine Allergy Severe Shortness Verified 08/02/16 23:25 of Breath nalbuphine HCl * Allergy Unknown Verified 10/08/16 21:16 [From Nubain] - Assessment/Plan (1) Facial paresthesia Status: Acute (2) Arm paresthesia, left Status: Acute (3) DVT prophylaxis Status: Acute (4) Dyspnea Status: Acute (5) Morbid obesity Status: Acute (6) Diabetes Status: Chronic Qualifiers: Diabetes mellitus type: type 2 Diabetes mellitus prison insulin use: without prison use (7) CHF exacerbation Status: Suspected Qualifiers: Heart failure type: unspecified Qualified Code(s): I50.9 - Heart failure, unspecified (8) Chronic back pain Status: Chronic Qualifiers: Back pain location: back pain in unspecified location Back pain laterality: midline Qualified Code(s): M54.9 - Dorsalgia, unspecified (9) GERD (gastroesophageal reflux disease) Status: Chronic Qualifiers: Esophagitis presence: esophagitis presence not specified Qualified Code(s): K21.9 - Gastro-esophageal reflux disease without esophagitis (10) HLD (hyperlipidemia) Status: Chronic Qualifiers: Hyperlipidemia type: unspecified Qualified Code(s): E78.5 - Hyperlipidemia, unspecified (11) Hypothyroidism Status: Chronic Qualifiers: Hypothyroidism type: acquired Qualified Code(s): E03.9 - Hypothyroidism, unspecified - Comments Impression: 02/24/18 16:38 Parasthesias, etiology uncertain. Many co-morbidities. See orders for 4rx plan. 02/25/18 11:25 Consults appreciated, w/u continues 02/27/18 08:44 Waiting for insurance approval for ecf, discharge delayed for this reason. 02/28/18 09:06 waiting for insurance approval 03/01/18 07:57 Waiting for ecf approval Normal [facility] Glucose, Point of Careon Glucose mass conc 102 mg/dL Normal 80-110 [facility] Comment on above: Result Comment: RN/L PN NOTIFIED Performed By: #### C BC, BMP, TROP, BNP, TSH ####[address] [address] Glucose mass conc 96 mg/dL Normal 80-110 [facility] Comment on above: Performed By: #### C BC, BMP, TROP, BNP, TSH ####[address] [address] Glucose mass conc 82 mg/dL Normal 80-110 [facility] Comment on above: Performed By: #### C BC, BMP, TROP, BNP, TSH ####[address] [address] Endocrinology Progress Noteo n 02-28-2018 Protein mass conc [facility] Patient: NATALIE GERBER [address] [facility] MR#: [id number] [place], [place] [address] : 1960 [address]: Dept: PDOC [place] [facility] [place] [id number] Endocrinology Progress Note Service Dt: 02/28/18 Report#: [id number] Adm Dt: 02/24/18 Dis Dt: Endocrine Progress Note - Patient Visit Reason Visit Reason: PARESTHESIA, DYSPNEA - Chief Complaint Chief Complaint: LUE and facial numbness - Subjective Narrative HPI/ROS: Pt feels that we ar enot giving him enough food. I expalined to him that he will need on weight reducing diet so he can prevcet future macrovascular disease events and progressing into diabetes. He continued to ask for food - I O/Vital Signs I O/VS: Vital Signs Temp 36.4 C L 02/28/18 04:53 Pulse 74 02/28/18 04:53 Resp 16 02/28/18 04:53 BP 96/50 L 02/28/18 04:53 Pulse Ox 95 02/28/18 04:53 Intake Output 02/27/18 02/27/18 02/28/18 11:59 23:59 11:59 Intake Total 1086 240 Balance 1086 240 Intake: Oral 1086 240 - Patient Exam General appearance: Positive: alert, in no apparent distress, obese HEENT: Positive: head normal inspection, EOMI Neck: Positive: Supple Respiratory: Negative: wheezes Cardiovascular: Positive: regular rate, normal rhythm, normal heart sounds GI/Abdominal: Positive: nondistended Extremities: Positive: normal inspection Neurological: Positive: alert, oriented X3, right hemiplegia (hemiparesis) Integumentary: Positive: warm Psychiatric exam: Positive: anxious - Lab Diagnostic Data Diagrams: 02/25/18 07:10 02/25/18 07:10 Chemistry: Chemistry (Last 24hrs) 02/27/18 11:59 POC Glucose 91 - Medications Meds: Current Medications Acetaminophen (Tylenol) 650 mg PO Q4 PRN PRN Reason: Pain (mild)/Temp above 38.3 C Alprazolam (Xanax) 0.25 mg PO TID PRN PRN Reason: Anxiety Last Admin: 02/27/18 17:54 Dose: 0.25 mg Aspirin (Aspirin, "Baby" (Chewable)) 81 mg PO DAILY [facility] Last Admin: 02/27/18 09:57 Dose: 81 mg Carvedilol (Coreg) 6.25 mg PO DAILY [facility] Last Admin: 02/27/18 12:28 Dose: Not Given Clopidogrel Bisulfate (Plavix) 75 mg PO DAILY [facility] Last Admin: 02/27/18 09:57 Dose: 75 mg Cyanocobalamin (Vitamin B-12) 1,000 mcg PO DAILY [facility] Last Admin: 02/27/18 09:57 Dose: 1,000 mcg Dextrose (Dextrose Syringe) 25 ml IV Q15M PRN PRN Reason: Hypoglycemia Dextrose (Dextrose Syringe) 50 ml IV Q15M PRN PRN Reason: Hypoglycemia Dextrose (Instant Glucose) 37.5 g PO Q15M PRN PRN Reason: Hypoglycemia Enoxaparin Sodium (Lovenox) 40 mg SC DAILY [facility] Last Admin: 02/27/18 09:55 Dose: 40 mg Furosemide (Lasix) 20 mg PO DAILY [facility] Last Admin: 02/27/18 09:57 Dose: 20 mg Gabapentin (Neurontin) 400 mg PO DAILY [facility] Last Admin: 02/27/18 09:55 Dose: 400 mg Glucagon (Glucagon) 1 mg IM Q15M PRN PRN Reason: Hypoglycemia Levothyroxine Sodium (Synthroid) 50 mcg PO QDSYNTH [facility] Last Admin: 02/28/18 04:50 Dose: 50 mcg Lisinopril (Zestril/Prinivil) 5 mg PO DAILY [facility] Last Admin: 02/27/18 12:28 Dose: Not Given Melatonin (Melatonin) 3 mg PO QHS [facility] Last Admin: 02/27/18 22:35 Dose: 3 mg Metformin HCl (Glucophage Xr) 500 mg PO 0800,1700 [facility] Last Admin: 02/27/18 16:32 Dose: Not Given Methylphenidate HCl (Ritalin) 40 mg PO DAILY [facility] Last Admin: 02/27/18 09:55 Dose: 40 mg Nitroglycerin (Nitrostat) 400 mcg SL Q5M PRN PRN Reason: Chest Pain Oxycodone/Acetaminophen (Percocet) 2 tab PO Q6 PRN PRN Reason: Pain-moderate (4-6/10) Last Admin: 02/28/18 04:49 Dose: 2 tab Pantoprazole Sodium (Protonix) 40 mg PO DAILY [facility] Last Admin: 02/27/18 09:56 Dose: 40 mg Quetiapine Fumarate (Seroquel) 100 mg PO QHS [facility] Last Admin: 02/27/18 22:36 Dose: 100 mg Senna/Docusate Sodium (Senokot-S) 1 tab PO DAILY [facility] Last Admin: 02/27/18 09:56 Dose: 1 tab Simvastatin (Zocor) 40 mg PO QHS [facility] Last Admin: 02/27/18 22:36 Dose: 40 mg Vitamin D (Vitamin D) 2,000 units.intl PO DAILY [facility] Last Admin: 02/27/18 09:57 Dose: 2,000 units.intl Allergies/Adv: Allergies Allergy/AdvReac Type Severity Reaction Status Date / Time ketorolac Allergy Severe Hives Verified 08/02/16 23:25 nalbuphine Allergy Severe Shortness Verified 08/02/16 23:25 of Breath nalbuphine HCl * Allergy Unknown Verified 10/08/16 21:16 [From Carisa] - Comments Impression Comments: 02/25/18 13:08 patient was probably have metabolic syndrome. although i doubt that he has dipti diabetes but he does have insulin resistance due to his truncal obesity. we will do a c-peptide level. we will see when was the last time he had an a1c done. we will continue to monitor his glucose levels via blood draws. he is very much objecting to the fact that i asked him if he has diabetes possible new hga-osryogfxoj-ptayeiinoflb of old cva. neurology service will be on consult. thyroid disease. this will be monitored and will do levels to detect adequacy. congestive heart failure and-coronary artery disease. hyperlipidemia. patient is on a statin. hypertension. patient is radha inhibitor and beta-alpha blockade. vitamin d deficiency. will ascertain the adequacy of treatment mental health problems. vitamin b12 deficiency on oral replacement. high bmi. patient was too sensitive to discuss this at this point. intake of PPI. will monitor magnesium levels. 02/26/18 07:48 Prediabetes. Patient C-peptide is pending. A1c is 6.1%. Any A1c between 6.5% and 6.0% is considered to be prediabetes. Will start patient on metformin. hyperlipidemia. patient is on a statin. hypertension. patient is radha inhibitor and beta-alpha blockade. vitamin d deficiency. will ascertain the adequacy of treatment mental health problems. vitamin b12 deficiency on oral replacement. high bmi. patient was too sensitive to discuss this at this point. intake of PPI. will monitor magnesium levels. 02/27/18 06:54 Patient is tolerating metformin well. C-peptide came back, upper normal, consistent with a diagnosis of insulin resistance-metabolic syndrome 02/28/18 06:58 Please see PI for counseling No AE's from metformin Hyperlipidemia, High BMI Insulin resistance. High normal C-peptide. Normal [facility] General Medical Progress Not clovis 02-28-2018 Protein mass conc [facility] Patient: NATALIE GERBER [address] MR#: [id number] [place], [place] [address] : 1960 [address] .: Dept: PDOC Loc: 9 [id number] General Medical Progress Note Service Dt: 02/28/18 Report#: [id number] Adm Dt: 02/24/18 Dis Dt: General-Medical Progress Note - Patient Visit Reason Visit Reason: PARESTHESIA, DYSPNEA - Chief Complaint Chief Complaint: LUE and facial numbness - Subjective Narrative HPI/ROS: no new c/o - Review of Systems All systems: 10 point review of systems negative except for what is stated in HPI - I O/Vital Signs I O/VS: Vital Signs Temp 36.4 C L 02/28/18 04:53 Pulse 74 02/28/18 08:32 Resp 16 02/28/18 04:53 BP 96/50 L 02/28/18 08:32 Pulse Ox 95 02/28/18 04:53 Intake Output 02/27/18 02/27/18 02/28/18 11:59 23:59 11:59 Intake Total 1086 240 Balance 1086 240 Intake: Oral 1086 240 - Patient Exam General appearance: alert Limitations: Positive: no limitations Head: Positive: normal inspection Eyes: Positive: normal appearance Pupils: Positive: equal and reactive ENT: Positive: normal exam Neck: Positive: supple Respiratory: Positive: normal lung sounds bilaterally Cardiovascular: Positive: regular rate GI/Abdominal: Positive: soft Extremities: Positive: negative jordan's sign bilaterally Neurological: Positive: alert Integumentary: Positive: no rash - Lab Diagnostic Data Diagrams: 02/25/18 07:10 02/25/18 07:10 Chemistry: Chemistry (Last 24hrs) 02/27/18 11:59 POC Glucose 91 - Medications Meds: Current Medications Acetaminophen (Tylenol) 650 mg PO Q4 PRN PRN Reason: Pain (mild)/Temp above 38.3 C Alprazolam (Xanax) 0.25 mg PO TID PRN PRN Reason: Anxiety Last Admin: 02/27/18 17:54 Dose: 0.25 mg Aspirin (Aspirin, "Baby" (Chewable)) 81 mg PO DAILY [facility] Last Admin: 02/28/18 08:51 Dose: 81 mg Carvedilol (Coreg) 6.25 mg PO DAILY [facility] Last Admin: 02/28/18 08:31 Dose: Not Given Clopidogrel Bisulfate (Plavix) 75 mg PO DAILY [facility] Last Admin: 02/28/18 08:51 Dose: 75 mg Cyanocobalamin (Vitamin B-12) 1,000 mcg PO DAILY [facility] Last Admin: 02/28/18 08:51 Dose: 1,000 mcg Dextrose (Dextrose Syringe) 25 ml IV Q15M PRN PRN Reason: Hypoglycemia Dextrose (Dextrose Syringe) 50 ml IV Q15M PRN PRN Reason: Hypoglycemia Dextrose (Instant Glucose) 37.5 g PO Q15M PRN PRN Reason: Hypoglycemia Enoxaparin Sodium (Lovenox) 40 mg SC DAILY [facility] Last Admin: 02/28/18 08:49 Dose: 40 mg Furosemide (Lasix) 20 mg PO DAILY [facility] Last Admin: 02/28/18 08:50 Dose: 20 mg Gabapentin (Neurontin) 400 mg PO DAILY [facility] Last Admin: 02/28/18 08:51 Dose: 400 mg Glucagon (Glucagon) 1 mg IM Q15M PRN PRN Reason: Hypoglycemia Levothyroxine Sodium (Synthroid) 50 mcg PO QDSYNTH [facility] Last Admin: 02/28/18 04:50 Dose: 50 mcg Lisinopril (Zestril/Prinivil) 5 mg PO DAILY [facility] Last Admin: 02/28/18 08:32 Dose: Not Given Melatonin (Melatonin) 3 mg PO QHS [facility] Last Admin: 02/27/18 22:35 Dose: 3 mg Metformin HCl (Glucophage Xr) 500 mg PO 0800,1700 [facility] Last Admin: 02/28/18 08:51 Dose: Not Given Methylphenidate HCl (Ritalin) 40 mg PO DAILY [facility] Last Admin: 02/27/18 09:55 Dose: 40 mg Nitroglycerin (Nitrostat) 400 mcg SL Q5M PRN PRN Reason: Chest Pain Oxycodone/Acetaminophen (Percocet) 2 tab PO Q6 PRN PRN Reason: Pain-moderate (4-6/10) Last Admin: 02/28/18 04:49 Dose: 2 tab Pantoprazole Sodium (Protonix) 40 mg PO DAILY [facility] Last Admin: 02/28/18 08:50 Dose: 40 mg Quetiapine Fumarate (Seroquel) 100 mg PO QHS [facility] Last Admin: 02/27/18 22:36 Dose: 100 mg Senna/Docusate Sodium (Senokot-S) 1 tab PO DAILY [facility] Last Admin: 02/28/18 08:50 Dose: 1 tab Simvastatin (Zocor) 40 mg PO QHS [facility] Last Admin: 02/27/18 22:36 Dose: 40 mg Vitamin D (Vitamin D) 2,000 units.intl PO DAILY [facility] Last Admin: 02/28/18 08:50 Dose: 2,000 units.intl Allergies/Adv: Allergies Allergy/AdvReac Type Severity Reaction Status Date / Time ketorolac Allergy Severe Hives Verified 08/02/16 23:25 nalbuphine Allergy Severe Shortness Verified 08/02/16 23:25 of Breath nalbuphine HCl * Allergy Unknown Verified 10/08/16 21:16 [From [facility]] - Assessment/Plan (1) Facial paresthesia Status: Acute (2) Arm paresthesia, left Status: Acute (3) DVT prophylaxis Status: Acute (4) Dyspnea Status: Acute (5) Morbid obesity Status: Acute (6) Diabetes Status: Chronic Qualifiers: Diabetes mellitus type: type 2 Diabetes mellitus prison insulin use: without prison use (7) CHF exacerbation Status: Suspected Qualifiers: Heart failure type: unspecified Qualified Code(s): I50.9 - Heart failure, unspecified (8) Chronic back pain Status: Chronic Qualifiers: Back pain location: back pain in unspecified location Back pain laterality: midline Qualified Code(s): M54.9 - Dorsalgia, unspecified (9) GERD (gastroesophageal reflux disease) Status: Chronic Qualifiers: Esophagitis presence: esophagitis presence not specified Qualified Code(s): K21.9 - Gastro-esophageal reflux disease without esophagitis (10) HLD (hyperlipidemia) Status: Chronic Qualifiers: Hyperlipidemia type: unspecified Qualified Code(s): E78.5 - Hyperlipidemia, unspecified (11) Hypothyroidism Status: Chronic Qualifiers: Hypothyroidism type: acquired Qualified Code(s): E03.9 - Hypothyroidism, unspecified - Comments Impression: 02/24/18 16:38 Parasthesias, etiology uncertain. Many co-morbidities. See orders for 4rx plan. 02/25/18 11:25 Consults appreciated, w/u continues 02/27/18 08:44 Waiting for insurance approval for ecf, discharge delayed for this reason. 02/28/18 09:06 waiting for insurance approval - Patient Time (minutes) Time Spent w/Patient: 31 Normal [facility] Glucose, Point of Careon Glucose mass conc 95 mg/dL Normal 80-110 [facility] Comment on above: Performed By: #### C BC, BMP, TROP, BNP, TSH ####[facility] [place] [place], [place] [id number] Endocrinology Progress Noteo n 02-27-2018 Protein mass conc [facility] Patient: NATALIE GERBER [address] [facility] MR#: [id number] [place], [place] [address] : 1960 Ord. : Dept: PDOC Loc: [address] [place] [address] Endocrinology Progress Note Service Dt: 02/27/18 Report#: [id number] Adm Dt: 02/24/18 Dis Dt: Endocrine Progress Note - Patient Visit Reason Visit Reason: PARESTHESIA, DYSPNEA - Chief Complaint Chief Complaint: LUE and facial numbness - Subjective Narrative HPI/ROS: Patient is resting - I O/Vital Signs I O/VS: Vital Signs Temp 36.0 C L 02/26/18 21:41 Pulse 75 02/26/18 21:41 Resp 20 02/26/18 21:41 BP 92/42 L 02/26/18 21:41 Pulse Ox 98 02/26/18 21:41 Intake Output 02/26/18 02/26/18 02/27/18 11:59 23:59 11:59 Intake Total 920 Balance 920 Weight 146.5 kg Intake: Oral 920 - Patient Exam General appearance: Positive: in no apparent distress, obese GI/Abdominal: Positive: other (Protuberant abdomen) - Lab Diagnostic Data Diagrams: 02/25/18 07:10 02/25/18 07:10 Chemistry: Chemistry (Last 24hrs) 02/25/18 11:02 C-Peptide 4.8 - Medications Meds: Current Medications Acetaminophen (Tylenol) 650 mg PO Q4 PRN PRN Reason: Pain (mild)/Temp above 38.3 C Alprazolam (Xanax) 0.25 mg PO TID PRN PRN Reason: Anxiety Last Admin: 02/24/18 21:01 Dose: 0.25 mg Aspirin (Aspirin, "Baby" (Chewable)) 81 mg PO DAILY [facility] Last Admin: 02/26/18 09:08 Dose: 81 mg Carvedilol (Coreg) 6.25 mg PO DAILY [facility] Last Admin: 02/26/18 09:08 Dose: 6.25 mg Clopidogrel Bisulfate (Plavix) 75 mg PO DAILY [facility] Last Admin: 02/26/18 09:09 Dose: 75 mg Cyanocobalamin (Vitamin B-12) 1,000 mcg PO DAILY [facility] Last Admin: 02/26/18 09:09 Dose: 1,000 mcg Dextrose (Dextrose Syringe) 25 ml IV Q15M PRN PRN Reason: Hypoglycemia Dextrose (Dextrose Syringe) 50 ml IV Q15M PRN PRN Reason: Hypoglycemia Dextrose (Instant Glucose) 37.5 g PO Q15M PRN PRN Reason: Hypoglycemia Enoxaparin Sodium (Lovenox) 40 mg SC DAILY [facility] Last Admin: 02/26/18 09:09 Dose: 40 mg Furosemide (Lasix) 20 mg PO DAILY [facility] Last Admin: 02/26/18 09:08 Dose: 20 mg Gabapentin (Neurontin) 400 mg PO DAILY [facility] Last Admin: 02/26/18 09:08 Dose: 400 mg Glucagon (Glucagon) 1 mg IM Q15M PRN PRN Reason: Hypoglycemia Levothyroxine Sodium (Synthroid) 50 mcg PO QDSYNTH [facility] Last Admin: 02/26/18 05:03 Dose: 50 mcg Lisinopril (Zestril/Prinivil) 5 mg PO DAILY [facility] Last Admin: 02/26/18 09:08 Dose: 5 mg Melatonin (Melatonin) 3 mg PO QHS [facility] Last Admin: 02/26/18 21:33 Dose: 3 mg Metformin HCl (Glucophage Xr) 500 mg PO 0800,1700 [facility] Last Admin: 02/26/18 17:21 Dose: 500 mg Methylphenidate HCl (Ritalin) 40 mg PO DAILY [facility] Last Admin: 02/26/18 09:08 Dose: 40 mg Nitroglycerin (Nitrostat) 400 mcg SL Q5M PRN PRN Reason: Chest Pain Oxycodone/Acetaminophen (Percocet) 2 tab PO Q6 PRN PRN Reason: Pain-moderate (4-6/10) Last Admin: 02/27/18 04:00 Dose: 2 tab Pantoprazole Sodium (Protonix) 40 mg PO DAILY [facility] Last Admin: 02/26/18 09:08 Dose: 40 mg Quetiapine Fumarate (Seroquel) 100 mg PO DAILY [facility] Last Admin: 02/26/18 09:09 Dose: 100 mg Senna/Docusate Sodium (Senokot-S) 1 tab PO DAILY [facility] Last Admin: 02/26/18 09:09 Dose: 1 tab Simvastatin (Zocor) 40 mg PO QHS [facility] Last Admin: 02/26/18 21:33 Dose: 40 mg Vitamin D (Vitamin D) 2,000 units.intl PO DAILY [facility] Last Admin: 02/26/18 09:09 Dose: 2,000 units.intl Allergies/Adv: Allergies Allergy/AdvReac Type Severity Reaction Status Date / Time ketorolac Allergy Severe Hives Verified 08/02/16 23:25 nalbuphine Allergy Severe Shortness Verified 08/02/16 23:25 of Breath nalbuphine HCl * Allergy Unknown Verified 10/08/16 21:16 [From [facility]] - Comments Impression Comments: 02/25/18 13:08 patient was probably have metabolic syndrome. although i doubt that he has dipti diabetes but he does have insulin resistance due to his truncal obesity. we will do a c-peptide level. we will see when was the last time he had an a1c done. we will continue to monitor his glucose levels via blood draws. he is very much objecting to the fact that i asked him if he has diabetes possible new [id number] of old cva. neurology service will be on consult. thyroid disease. this will be monitored and will do levels to detect adequacy. congestive heart failure and-coronary artery disease. hyperlipidemia. patient is on a statin. hypertension. patient is radha inhibitor and beta-alpha blockade. vitamin d deficiency. will ascertain the adequacy of treatment mental health problems. vitamin b12 deficiency on oral replacement. high bmi. patient was too sensitive to discuss this at this point. intake of PPI. will monitor magnesium levels. 02/26/18 07:48 Prediabetes. Patient C-peptide is pending. A1c is 6.1%. Any A1c between 6.5% and 6.0% is considered to be prediabetes. Will start patient on metformin. hyperlipidemia. patient is on a statin. hypertension. patient is radha inhibitor and beta-alpha blockade. vitamin d deficiency. will ascertain the adequacy of treatment mental health problems. vitamin b12 deficiency on oral replacement. high bmi. patient was too sensitive to discuss this at this point. intake of PPI. will monitor magnesium levels. 02/27/18 06:54 Patient is tolerating metformin well. C-peptide came back, upper normal, consistent with a diagnosis of insulin resistance-metabolic syndrome Normal [facility] General Medical Progress Not clov[place] 02-27-2018 Protein mass conc [facility] Patient: NATALIE GERBER [address] [facility] MR#: [id number] [place], [place] [address] : 1960 Ord[address] Murray: Dept: PDOC Loc: 9W 934-1 General Medical Progress Note Service Dt: 02/27/18 Report#: [id number] Adm Dt: 02/24/18 Dis Dt: General-Medical Progress Note - Patient Visit Reason Visit Reason: PARESTHESIA, DYSPNEA - Chief Complaint Chief Complaint: LUE and facial numbness - Review of Systems All systems: 10 point review of systems negative except for what is stated in HPI - I O/Vital Signs I O/VS: Vital Signs Temp 36.0 C L 02/26/18 21:41 Pulse 75 02/26/18 21:41 Resp 20 02/26/18 21:41 BP 92/42 L 02/26/18 21:41 Pulse Ox 98 02/26/18 21:41 Intake Output 02/26/18 02/26/18 02/27/18 11:59 23:59 11:59 Intake Total 920 Balance 920 Weight 146.5 kg Intake: Oral 920 - Patient Exam General appearance: alert, obese Limitations: Positive: no limitations Head: Positive: atraumatic Eyes: Positive: normal appearance Pupils: Positive: equal and reactive ENT: Positive: normal exam Neck: Positive: supple Respiratory: Positive: normal lung sounds bilaterally Cardiovascular: Positive: regular rate, normal rhythm, normal heart sounds GI/Abdominal: Positive: soft, nontender Extremities: Positive: negative jordan's sign bilaterally Neurological: Positive: alert Integumentary: Positive: no rash - Lab Diagnostic Data Diagrams: 02/25/18 07:10 02/25/18 07:10 Chemistry: Chemistry (Last 24hrs) 02/25/18 11:02 C-Peptide 4.8 - Medications Meds: Current Medications Acetaminophen (Tylenol) 650 mg PO Q4 PRN PRN Reason: Pain (mild)/Temp above 38.3 C Alprazolam (Xanax) 0.25 mg PO TID PRN PRN Reason: Anxiety Last Admin: 02/24/18 21:01 Dose: 0.25 mg Aspirin (Aspirin, "Baby" (Chewable)) 81 mg PO DAILY [facility] Last Admin: 02/26/18 09:08 Dose: 81 mg Carvedilol (Coreg) 6.25 mg PO DAILY [facility] Last Admin: 02/26/18 09:08 Dose: 6.25 mg Clopidogrel Bisulfate (Plavix) 75 mg PO DAILY [facility] Last Admin: 02/26/18 09:09 Dose: 75 mg Cyanocobalamin (Vitamin B-12) 1,000 mcg PO DAILY [facility] Last Admin: 02/26/18 09:09 Dose: 1,000 mcg Dextrose (Dextrose Syringe) 25 ml IV Q15M PRN PRN Reason: Hypoglycemia Dextrose (Dextrose Syringe) 50 ml IV Q15M PRN PRN Reason: Hypoglycemia Dextrose (Instant Glucose) 37.5 g PO Q15M PRN PRN Reason: Hypoglycemia Enoxaparin Sodium (Lovenox) 40 mg SC DAILY [facility] Last Admin: 02/26/18 09:09 Dose: 40 mg Furosemide (Lasix) 20 mg PO DAILY [facility] Last Admin: 02/26/18 09:08 Dose: 20 mg Gabapentin (Neurontin) 400 mg PO DAILY [facility] Last Admin: 02/26/18 09:08 Dose: 400 mg Glucagon (Glucagon) 1 mg IM Q15M PRN PRN Reason: Hypoglycemia Levothyroxine Sodium (Synthroid) 50 mcg PO QDSYNTH [facility] Last Admin: 02/26/18 05:03 Dose: 50 mcg Lisinopril (Zestril/Prinivil) 5 mg PO DAILY [facility] Last Admin: 02/26/18 09:08 Dose: 5 mg Melatonin (Melatonin) 3 mg PO QHS [facility] Last Admin: 02/26/18 21:33 Dose: 3 mg Metformin HCl (Glucophage Xr) 500 mg PO 0800,1700 [facility] Last Admin: 02/26/18 17:21 Dose: 500 mg Methylphenidate HCl (Ritalin) 40 mg PO DAILY [facility] Last Admin: 02/26/18 09:08 Dose: 40 mg Nitroglycerin (Nitrostat) 400 mcg SL Q5M PRN PRN Reason: Chest Pain Oxycodone/Acetaminophen (Percocet) 2 tab PO Q6 PRN PRN Reason: Pain-moderate (4-6/10) Last Admin: 02/27/18 04:00 Dose: 2 tab Pantoprazole Sodium (Protonix) 40 mg PO DAILY [facility] Last Admin: 02/26/18 09:08 Dose: 40 mg Quetiapine Fumarate (Seroquel) 100 mg PO DAILY [facility] Last Admin: 02/26/18 09:09 Dose: 100 mg Senna/Docusate Sodium (Senokot-S) 1 tab PO DAILY [facility] Last Admin: 02/26/18 09:09 Dose: 1 tab Simvastatin (Zocor) 40 mg PO QHS [facility] Last Admin: 02/26/18 21:33 Dose: 40 mg Vitamin D (Vitamin D) 2,000 units.intl PO DAILY [facility] Last Admin: 02/26/18 09:09 Dose: 2,000 units.intl Allergies/Adv: Allergies Allergy/AdvReac Type Severity Reaction Status Date / Time ketorolac Allergy Severe Hives Verified 08/02/16 23:25 nalbuphine Allergy Severe Shortness Verified 08/02/16 23:25 of Breath nalbuphine HCl * Allergy Unknown Verified 10/08/16 21:16 [From [facility]] - Assessment/Plan (1) Facial paresthesia Status: Acute (2) Arm paresthesia, left Status: Acute (3) DVT prophylaxis Status: Acute (4) Dyspnea Status: Acute (5) Morbid obesity Status: Acute (6) Diabetes Status: Chronic Qualifiers: Diabetes mellitus type: type 2 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: without 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 (7) CHF exacerbation Status: Suspected Qualifiers: Heart failure type: unspecified Qualified Code(s): I50.9 - Heart failure, unspecified (8) Chronic back pain Status: Chronic Qualifiers: Back pain location: back pain in unspecified location Back pain laterality: midline Qualified Code(s): M54.9 - Dorsalgia, unspecified (9) GERD (gastroesophageal reflux disease) Status: Chronic Qualifiers: Esophagitis presence: esophagitis presence not specified Qualified Code(s): K21.9 - Gastro-esophageal reflux disease without esophagitis (10) HLD (hyperlipidemia) Status: Chronic Qualifiers: Hyperlipidemia type: unspecified Qualified Code(s): E78.5 - Hyperlipidemia, unspecified (11) Hypothyroidism Status: Chronic Qualifiers: Hypothyroidism type: acquired Qualified Code(s): E03.9 - Hypothyroidism, unspecified - Comments Impression: 02/24/18 16:38 Parasthesias, etiology uncertain. Many co-morbidities. See orders for 4rx plan. 02/25/18 11:25 Consults appreciated, w/u continues 02/27/18 08:44 Waiting for insurance approval for ecf, discharge delayed for this reason. - Patient Time (minutes) Time Spent w/Patient: 31 Normal [facility] Glucose, Point of Careon Glucose mass conc 91 mg/dL Normal 80-110 [facility] Comment on above: Performed By: #### C BC, BMP, TROP, BNP, TSH ####[facility] [place] [address] C-Peptideon 02-26-2018 C-Peptide 4.8 ng/mL Normal 1.1-5.0 [facility] Comment on above: Result Comment: [facility] Site: [place] [address] [place] [address] Performed By: #### C BC, BMP, TROP, BNP, TSH ####[facility] [place] [address] Endocrinology Progress Noteo n 02-26-2018 Protein mass conc [facility] Patient: NATALIE GERBER [address] [facility] MR#: [id number] [place], [place] [address] : 1960 Ord[place] Murray: Dept: PDOC Loc: [facility] Endocrinology Progress Note Service Dt: 02/26/18 Report#: [id number] Adm Dt: 02/24/18 Dis Dt: Endocrine Progress Note - Patient Visit Reason Visit Reason: PARESTHESIA, DYSPNEA - Chief Complaint Chief Complaint: LUE and facial numbness - Subjective Narrative HPI/ROS: Feels better. Has had no complaints today. - I O/Vital Signs I O/VS: Vital Signs Temp 36.0 C L 02/26/18 06:00 Pulse 75 02/26/18 06:00 Resp 18 02/26/18 06:00 BP 108/54 L 02/26/18 06:00 Pulse Ox 97 02/26/18 06:00 Intake Output 02/25/18 02/25/18 02/26/18 11:59 23:59 11:59 Intake Total 830 1490 Balance 830 1490 Weight 146.5 kg Intake: Intake 900 Oral 830 590 - Patient Exam General appearance: Positive: alert, in no apparent distress, obese HEENT: Positive: head normal inspection, EOMI Neck: Positive: Supple Respiratory: Positive: normal lung sounds bilaterally Cardiovascular: Positive: regular rate, normal rhythm GI/Abdominal: Positive: soft, nontender, normal bowel sounds Extremities: Positive: normal inspection Neurological: Positive: alert, oriented X3, right hemiplegia Integumentary: Positive: warm, dry - Lab Diagnostic Data Diagrams: 02/25/18 07:10 02/25/18 07:10 Chemistry: Chemistry (Last 24hrs) 02/25/18 02/25/18 02/25/18 11:02 11:02 07:10 Sodium 140 Potassium 4.3 Chloride 106 Carbon Dioxide 27 Anion Gap 11.3 BUN 13 Creatinine 0.62 Estim Creat Clear Calc 91 L Est GFR ( Amer) >60 Est GFR (Non-Af Amer) >60 Fasting Glucose 105 H Hemoglobin A1c 6.1 Calcium 8.6 Total Bilirubin 0.4 AST 15 ALT 8 Alkaline Phosphatase 109 Total Protein 5.8 L Albumin 3.3 L Triglycerides 266 Cholesterol 131 LDL Cholesterol 50.9 HDL Cholesterol 27.1 Cholesterol/HDL Ratio 4.83 Vitamin B12 Free T4 0.8 Free T3 pg/mL 3.1 02/24/18 11:53 Sodium Potassium Chloride Carbon Dioxide Anion Gap BUN Creatinine Estim Creat Clear Calc Est GFR ( Amer) Est GFR (Non-Af Amer) Fasting Glucose Hemoglobin A1c Calcium Total Bilirubin AST ALT Alkaline Phosphatase Total Protein Albumin Triglycerides Cholesterol LDL Cholesterol HDL Cholesterol Cholesterol/HDL Ratio Vitamin B12 361 Free T4 Free T3 pg/mL - Medications Meds: Current Medications Acetaminophen (Tylenol) 650 mg PO Q4 PRN PRN Reason: Pain (mild)/Temp above 38.3 C Alprazolam (Xanax) 0.25 mg PO TID PRN PRN Reason: Anxiety Last Admin: 02/24/18 21:01 Dose: 0.25 mg Aspirin (Aspirin, "Baby" (Chewable)) 81 mg PO DAILY [facility] Last Admin: 02/25/18 10:39 Dose: 81 mg Carvedilol (Coreg) 6.25 mg PO DAILY [facility] Last Admin: 02/25/18 10:38 Dose: 6.25 mg Clopidogrel Bisulfate (Plavix) 75 mg PO DAILY [facility] Last Admin: 02/25/18 10:39 Dose: 75 mg Cyanocobalamin (Vitamin B-12) 1,000 mcg PO DAILY [facility] Last Admin: 02/25/18 10:38 Dose: 1,000 mcg Dextrose (Dextrose Syringe) 25 ml IV Q15M PRN PRN Reason: Hypoglycemia Dextrose (Dextrose Syringe) 50 ml IV Q15M PRN PRN Reason: Hypoglycemia Dextrose (Instant Glucose) 37.5 g PO Q15M PRN PRN Reason: Hypoglycemia Enoxaparin Sodium (Lovenox) 40 mg SC DAILY [facility] Last Admin: 02/25/18 10:39 Dose: 40 mg Furosemide (Lasix) 20 mg PO DAILY [facility] Last Admin: 02/25/18 10:38 Dose: 20 mg Gabapentin (Neurontin) 400 mg PO DAILY [facility] Last Admin: 02/25/18 10:45 Dose: 400 mg Glucagon (Glucagon) 1 mg IM Q15M PRN PRN Reason: Hypoglycemia Levothyroxine Sodium (Synthroid) 50 mcg PO QDSYNTH [facility] Last Admin: 02/26/18 05:03 Dose: 50 mcg Lisinopril (Zestril/Prinivil) 5 mg PO DAILY [facility] Last Admin: 02/25/18 10:39 Dose: 5 mg Melatonin (Melatonin) 3 mg PO QHS [facility] Last Admin: 02/25/18 21:26 Dose: Not Given Methylphenidate HCl (Ritalin) 40 mg PO DAILY [facility] Last Admin: 02/25/18 10:40 Dose: 40 mg Nitroglycerin (Nitrostat) 400 mcg SL Q5M PRN PRN Reason: Chest Pain Oxycodone/Acetaminophen (Percocet) 2 tab PO Q6 PRN PRN Reason: Pain-moderate (4-6/10) Last Admin: 02/26/18 03:27 Dose: 2 tab Pantoprazole Sodium (Protonix) 40 mg PO DAILY [facility] Last Admin: 02/25/18 10:39 Dose: 40 mg Quetiapine Fumarate (Seroquel) 100 mg PO DAILY [facility] Last Admin: 02/25/18 10:38 Dose: 100 mg Senna/Docusate Sodium (Senokot-S) 1 tab PO DAILY [facility] Last Admin: 02/25/18 10:38 Dose: 1 tab Simvastatin (Zocor) 40 mg PO QHS [facility] Last Admin: 02/25/18 21:29 Dose: 40 mg Vitamin D (Vitamin D) 2,000 units.intl PO DAILY [facility] Last Admin: 02/25/18 10:39 Dose: 2,000 units.intl Allergies/Adv: Allergies Allergy/AdvReac Type Severity Reaction Status Date / Time ketorolac Allergy Severe Hives Verified 08/02/16 23:25 nalbuphine Allergy Severe Shortness Verified 08/02/16 23:25 of Breath nalbuphine HCl * Allergy Unknown Verified 10/08/16 21:16 [From [facility]] - Comments Impression Comments: 02/25/18 13:08 patient was probably have metabolic syndrome. although i doubt that he has dipti diabetes but he does have insulin resistance due to his truncal obesity. we will do a c-peptide level. we will see when was the last time he had an a1c done. we will continue to monitor his glucose levels via blood draws. he is very much objecting to the fact that i asked him if he has diabetes possible new gbm-kwwtxswfgr-[id number] of old cva. neurology service will be on consult. thyroid disease. this will be monitored and will do levels to detect adequacy. congestive heart failure and-coronary artery disease. hyperlipidemia. patient is on a statin. hypertension. patient is radha inhibitor and beta-alpha blockade. vitamin d deficiency. will ascertain the adequacy of treatment mental health problems. vitamin b12 deficiency on oral replacement. high bmi. patient was too sensitive to discuss this at this point. intake of PPI. will monitor magnesium levels. 02/26/18 07:48 Prediabetes. Patient C-peptide is pending. A1c is 6.1%. Any A1c between 6.5% to be considered such. Will start patient on metformin. hyperlipidemia. patient is on a statin. hypertension. patient is radha inhibitor and beta-alpha blockade. vitamin d deficiency. will ascertain the adequacy of treatment mental health problems. vitamin b12 deficiency on oral replacement. high bmi. patient was too sensitive to discuss this at this point. intake of PPI. will monitor magnesium levels. Normal [facility] Neurology Progress Noteon Protein mass conc [facility] Patient: NATALIE GERBER [address] MR#: [id number] [place], [place] [address] : 1960 Ord[address] : Dept: PDOC Loc: 934- Neurology Progress Note Service Dt: 02/26/18 Report#: [id number] Adm Dt: 02/24/18 Dis Dt: Neurology Progress Note - Patient Visit Reason Visit Reason: PARESTHESIA, DYSPNEA - Chief Complaint Chief Complaint: LUE and facial numbness - Subjective Narrative HPI/ROS: Patient seen at bedside. Reports some improvement in the symptoms in his arm and face. Has not been walking much so has not gotten the headache with ambulation. - Review of Systems Constitutional: Reports: no symptoms Eyes: Reports: no symptoms ENT: Reports: no symptoms Respiratory: Reports: no symptoms reported Cardiovascular: Reports: dyspnea on exertion Gastrointestinal: Reports: no symptoms Genitourinary: Reports: no symptoms Integumentary: Reports: no symptoms Neurological: Reports: headache, weakness, numbness Psychiatric: Reports: no symptoms - I O/Vital Signs I O/VS: Intake/Output/Wt 02/23/18 02/24/18 02/25/18 02/26/18 23:59 23:59 23:59 23:59 Intake Total 720 2320 440 Balance 720 2320 440 Weight 146.4 kg 146.5 kg Intake: Intake 900 Oral 720 1420 440 Other: Height 1.65 m Vital Signs (last 24 hrs) Temp Pulse Resp BP Pulse Ox 02/26/18 13:28 36.0 C L 69 18 109/67 95 02/26/18 10:00 35.8 C L 63 16 127/66 98 02/26/18 09:08 75 108/54 L 02/26/18 06:00 36.0 C L 75 18 108/54 L 97 02/25/18 22:00 36.0 C L 75 20 102/48 L 96 02/25/18 16:36 36.5 C 69 20 115/74 99 - Lab Diagnostic Data Diagrams: 02/25/18 07:10 02/25/18 07:10 Labs: Chemistry (last 24 hrs) 02/25/18 02/25/18 11:02 11:02 C-Peptide 4.8 Free T3 pg/mL 3.1 Urines (last 24 hrs) 02/25/18 14:40 Ur Random Creatinine 48.8 Random Alb/Creat Ratio 10.000 Ur Random Microalbumin < 5.0 - Medications Meds: Current Medications Acetaminophen (Tylenol) 650 mg PO Q4 PRN PRN Reason: Pain (mild)/Temp above 38.3 C Alprazolam (Xanax) 0.25 mg PO TID PRN PRN Reason: Anxiety Last Admin: 02/24/18 21:01 Dose: 0.25 mg Aspirin (Aspirin, "Baby" (Chewable)) 81 mg PO DAILY [facility] Last Admin: 02/26/18 09:08 Dose: 81 mg Carvedilol (Coreg) 6.25 mg PO DAILY [facility] Last Admin: 02/26/18 09:08 Dose: 6.25 mg Clopidogrel Bisulfate (Plavix) 75 mg PO DAILY [facility] Last Admin: 02/26/18 09:09 Dose: 75 mg Cyanocobalamin (Vitamin B-12) 1,000 mcg PO DAILY [facility] Last Admin: 02/26/18 09:09 Dose: 1,000 mcg Dextrose (Dextrose Syringe) 25 ml IV Q15M PRN PRN Reason: Hypoglycemia Dextrose (Dextrose Syringe) 50 ml IV Q15M PRN PRN Reason: Hypoglycemia Dextrose (Instant Glucose) 37.5 g PO Q15M PRN PRN Reason: Hypoglycemia Enoxaparin Sodium (Lovenox) 40 mg SC DAILY [facility] Last Admin: 02/26/18 09:09 Dose: 40 mg Furosemide (Lasix) 20 mg PO DAILY [facility] Last Admin: 02/26/18 09:08 Dose: 20 mg Gabapentin (Neurontin) 400 mg PO DAILY [facility] Last Admin: 02/26/18 09:08 Dose: 400 mg Glucagon (Glucagon) 1 mg IM Q15M PRN PRN Reason: Hypoglycemia Levothyroxine Sodium (Synthroid) 50 mcg PO QDSYNTH [facility] Last Admin: 02/26/18 05:03 Dose: 50 mcg Lisinopril (Zestril/Prinivil) 5 mg PO DAILY [facility] Last Admin: 02/26/18 09:08 Dose: 5 mg Melatonin (Melatonin) 3 mg PO QHS [facility] Last Admin: 02/25/18 21:26 Dose: Not Given Metformin HCl (Glucophage Xr) 500 mg PO 0800,1700 [facility] Last Admin: 02/26/18 09:09 Dose: 500 mg Methylphenidate HCl (Ritalin) 40 mg PO DAILY [facility] Last Admin: 02/26/18 09:08 Dose: 40 mg Nitroglycerin (Nitrostat) 400 mcg SL Q5M PRN PRN Reason: Chest Pain Oxycodone/Acetaminophen (Percocet) 2 tab PO Q6 PRN PRN Reason: Pain-moderate (4-6/10) Last Admin: 02/26/18 15:30 Dose: 2 tab Pantoprazole Sodium (Protonix) 40 mg PO DAILY [facility] Last Admin: 02/26/18 09:08 Dose: 40 mg Quetiapine Fumarate (Seroquel) 100 mg PO DAILY [facility] Last Admin: 02/26/18 09:09 Dose: 100 mg Senna/Docusate Sodium (Senokot-S) 1 tab PO DAILY [facility] Last Admin: 02/26/18 09:09 Dose: 1 tab Simvastatin (Zocor) 40 mg PO QHS [facility] Last Admin: 02/25/18 21:29 Dose: 40 mg Vitamin D (Vitamin D) 2,000 units.intl PO DAILY [facility] Last Admin: 02/26/18 09:09 Dose: 2,000 units.intl Allergies/Adv: Allergies Allergy/AdvReac Type Severity Reaction Status Date / Time ketorolac Allergy Severe Hives Verified 08/02/16 23:25 nalbuphine Allergy Severe Shortness Verified 08/02/16 23:25 of Breath nalbuphine HCl * Allergy Unknown Verified 10/08/16 21:16 [From Nubain] - Assessment/Plan (1) Paresthesia Status: Acute Plan: Mr. Gerber is a 57 year old man with multiple vascular risk factors including obesity, HTN, HLD who presented to the hospital with a 1 month history of left arm numbness followed by a 2 week history of left facial numbness and a few day history of episodes of sudden quick headaches and shortness of breath/lightheadedness with exertion. The slow progression of the symptoms is very atypical for stroke and I do not suspect a vascular etiology. The patient has had an extensive work up in the past with multiple hospital admission for previous symptoms (always on the left, typically following a "pop" in his head). The patient does feel this episode is different and the step alicea occurrence of the symptoms is different than previously described. There has been a high suspicion for conversion disorder in the past due to functional elements seen on his exam with negative imaging. However an evaluation for MS had previously been recommended however the patient had refused. Again there are function elements on his exam (spitting of vibration in the forehead, giveway weakness in the arm with direct muscle testing however no pronator drift and normal finger to nose). Given the prior recommendation will obtain the following to complete his work up. Recommendations: -MRI brain w/wo contrast -MRA head w/o contrast -MRI C spine w/wo contrast. Can hold off on the rest of the stroke work up for now. Continue aspirin and plavix. Will continue to follow. Thank you for the consult. 02/24/18 16:09 02/25/18 14:29 No significant change in the symptoms. Awaiting MRI to be performed - recommend for it to be performed as an inpatient if possible. 02/26/18 15:38 Personally reviewed the images of his MRI brain, MRI C spine and MRA head. Discussed results with the patient. Similar to his prior hospitalizations with neurologic symptoms there is no obvious cause for the symptoms. Would have to consider conversion disorder however the patient denies any stressor that may be triggering these episodes. Discussed with the patient that he does have atypical white matter changes on his MRI. There is no obvious white matter change seen on his MRI C spine. Discussed that he could consider seeing an MS specialist to determine if further work up including an LP is indicated. He has refused an LP in the past during prior admissions. He was provided with the names of the two MS specialists in the system. Lastly, his MRI C spine does show moderate canal stenosis at C5-6 and C6-7 which could be part of the reason for the numbness in the left arm. Could consider further evaluation with an EMG of the left upper extremity as an outpatient if the symptoms continue. Ok for discharge. 02/26/18 15:41 - Comments Impression Comments: Mr. Gerber is a 57 year old man with multiple vascular risk factors including obesity, HTN, HLD who presented to the hospital with a 1 month history of left arm numbness followed by a 2 week history of left facial numbness and a few day history of episodes of sudden quick headaches and shortness of breath/lightheadedness with exertion. The slow progression of the symptoms is very atypical for stroke and I do not suspect a vascular etiology. The patient has had an extensive work up in the past with multiple hospital admission for previous symptoms (always on the left, typically following a "pop" in his head). The patient does feel this episode is different and the step alicea occurrence of the symptoms is different than previously described. There has been a high suspicion for conversion disorder in the past due to functional elements seen on his exam with negative imaging. However an evaluation for MS had previously been recommended however the patient had refused. Again there are function elements on his exam (spitting of vibration in the forehead, giveway weakness in the arm with direct muscle testing however no pronator drift and normal finger to nose). Given the prior recommendation will obtain the following to complete his work up. Recommendations: -MRI brain w/wo contrast -MRA head w/o contrast -MRI C spine w/wo contrast. Can hold off on the rest of the stroke work up for now. Continue aspirin and plavix. Will continue to follow. Thank you for the consult. 02/24/18 16:09 - Patient Time (minutes) Time Spent w/Patient: 30 Normal [facility] [place] Albumin/Creatinine Ratio, Ur on 02-25-2018 Albumin/Creatinine Ratio 10.000 mg/g Normal [facility] Comment on above: Order Comment: Comme nt please do today Performed By: #### C BC, BMP, TROP, BNP, TSH ####[facility] [place] [place] [address] Creatinine, Urine Random $ 48.8 mg/dL Normal [facility] [place] Comment on above: Order Comment: Comme nt please do today Performed By: #### C BC, BMP, TROP, BNP, TSH ####[facility] [place] [place] [address] Ur Microalbumin, Random < 5.0 Normal [facility] [place] Comment on above: Order Comment: Comme nt please do today Performed By: #### C BC, BMP, TROP, BNP, TSH ####[facility] [place] [place] [address] Carotid Duplex Scanon 2017 Carotid Duplex Scan [facility] , [address] [place] [address] and Vascular Lab Report Carotid Artery Duplex Ultrasound Patient Name: NATALIE GERBER Study Date: 02/25/2018 Reading Physician: ROSLYN Acuna D.O. MRN/PID: [id number] Referring Physician: JOSE Oakes Accession/Order#: [id number] PCP: Date of : 1960 CC Report to: Do Hernandez DO Gender: M Technologist: Joan Lam Admission Status: Inpatient Technologist 2: Facility Performed: [facility] Location Performed: [facility] Diagnosis/ICD: G45.9 - Transient cerebral ischemic attack, unspecified Indication: Hemiparesis, Hemiplegia Procedure/CPT: 80420 - Cerebrovacular Carotid Duplex scan complete Patient History: Pertinent History: CAD, CVA, Dyspnea, LE Edema and Obesity. CONCLUSIONS: Right Carotid: Findings are consistent with less than 50% stenosis of the right ICA. Right external carotid artery appears patent with no evidence of stenosis. The right vertebral artery is patent with antegrade flow. Right subclavian not interrogated. Left Carotid: Findings are consistent with less than 50% stenosis of the left ICA. Left external carotid artery appears patent with no evidence of stenosis. The left vertebral artery is patent with antegrade flow. Left subclavian not interrogated. Right Plaque Morph: The proximal right internal carotid artery demonstrates intimal thickening and calcified plaque. Left Plaque Morph: The proximal left internal carotid artery demonstrates intimal thickening plaque. Right Left PSV EDV PSV EDV 100 cm/s 18 cm/s CCA P 122 cm/s 30 cm/s 81 cm/s 17 cm/s CCA D 80 cm/s 20 cm/s 69 cm/s 22 cm/s ICA P 74 cm/s 32 cm/s 62 cm/s 21 cm/s ICA D 77 cm/s 26 cm/s 115 cm/s ECA 102 cm/s 79 cm/s Vertebral 64 cm/s Right Left ICA/CCA Ratio 0.9 0.9 ROSLYN Acuna D.O. Final Normal [facility] [place] Complete Blood Count w/diff $$on 02-25-2018 Basophils Auto #/vol (Bld) 0.0 10 /uL Low 0.04-0.9 [facility] Comment on above: Performed By: #### C BC, BMP, TROP, BNP, TSH ####[place] [address] Basophils/100 WBC Auto (Bld) 1 % Normal 0-1 [facility] Comment on above: Performed By: #### C BC, BMP, TROP, BNP, TSH ####[address] [address] Eosinophils Auto #/vol (Bld) 0.2 10 3/uL Normal 0.03-0.6 [facility] Comment on above: Performed By: #### C BC, BMP, TROP, BNP, TSH ####[place] [id number] Eosinophils/100 WBC Auto (Bld) 2 % Normal 0-3 [facility] Comment on above: Performed By: #### C BC, BMP, TROP, BNP, TSH ####[address] [address] Erythrocyte distribution width Auto Ratio (RBC) 14.0 % Normal 11.5-14.5 [facility] Comment on above: Performed By: #### C BC, BMP, TROP, BNP, TSH ####[address] [address] Hematocrit Auto Volume Fraction (Bld) 33.9 % Low 39-50 [facility] [place] Comment on above: Performed By: #### C BC, BMP, TROP, BNP, TSH ####[address] [address] Hemoglobin mass conc (Bld) 10.5 g/dL Low 13.0-17.3 [facility] [place] Comment on above: Performed By: #### C BC, BMP, TROP, BNP, TSH ####[address] [address] Immature Gran# (Auto) 0.1 10 3/uL Normal [facility] Comment on above: Performed By: #### C BC, BMP, TROP, BNP, TSH ####[address] [address] Immature granulocytes #/vol (Bld) 0.9 % Normal 0.0-1.2 [facility] [place] Comment on above: Performed By: #### C BC, BMP, TROP, BNP, TSH ####[address] [address] Lymphocytes Auto #/vol (Bld) 1.4 10 3/uL Normal 1-3.5 [facility] [place] Comment on above: Performed By: #### C BC, BMP, TROP, BNP, TSH ####[address] [address] Lymphocytes/100 WBC Auto (Bld) 22 % Low 24-44 [facility] [place] Comment on above: Performed By: #### C BC, BMP, TROP, BNP, TSH ####[address] [address] MCH Auto Entitic mass (RBC) 27.9 pg Normal 27-34 [facility] [place] Comment on above: Performed By: #### C BC, BMP, TROP, BNP, TSH ####[address] [address] MCH Auto Entitic mass (RBC) 31.0 g/dL Low 33-37 [facility] [place] Comment on above: Performed By: #### C BC, BMP, TROP, BNP, TSH ####[address] [address] MCV Auto Entitic volume (RBC) 89.9 fL Normal 80-100 [facility] [place] Comment on above: Performed By: #### C BC, BMP, TROP, BNP, TSH ####[address] [address] Monocytes Auto #/vol (Bld) 0.4 10 3/uL Normal 0.04-0.9 [facility] Comment on above: Performed By: #### C BC, BMP, TROP, BNP, TSH ####[address] [address] Monocytes/100 WBC Auto (Bld) 7 % Normal 1-8 [facility] [place] Comment on above: Performed By: #### C BC, BMP, TROP, BNP, TSH ####[address] [address] Neutrophils Auto #/vol (Bld) 4.3 10 3/uL Normal 1.8-7.0 [facility] [place] Comment on above: Performed By: #### C BC, BMP, TROP, BNP, TSH ####[address] [address] Neutrophils/100 WBC Auto (Bld) 67 % Normal 42-76 [facility] [place] Comment on above: Performed By: #### C BC, BMP, TROP, BNP, TSH ####[address] [address] Nucleated RBC/100 WBC Ratio (Bld) 0.0 % Normal 0.0-0.2 [facility] [place] Comment on above: Performed By: #### C BC, BMP, TROP, BNP, TSH ####[address] [address] Platelet mean volume Auto Entitic volume (Bld) 9.6 fL Normal 7.4-10.4 [facility] [place] Comment on above: Performed By: #### C BC, BMP, TROP, BNP, TSH ####[address] [address] Platelets Auto #/vol (Bld) 187 10 3/uL Normal 150-400 [facility] [place] Comment on above: Performed By: #### C BC, BMP, TROP, BNP, TSH ####[address] [address] RBC Auto #/vol (Bld) 3.77 10 6/uL Low 4.5-6.0 [facility] Comment on above: Performed By: #### C BC, BMP, TROP, BNP, TSH ####[address] [address] WBC Auto #/vol (Bld) 6.4 10 3/uL Normal 4.0-11.0 [facility] Comment on above: Performed By: #### C BC, BMP, TROP, BNP, TSH ####[address] [address] Comprehensive Metabolic Pane yoni 02-25-2018 Albumin mass conc 3.3 g/dL Low 3.4-5.0 [facility] Comment on above: Performed By: #### C BC, BMP, TROP, BNP, TSH ####[address] [address] ALP enzyme act/vol 109 U/L Normal 33-120 [facility] Comment on above: Result Comment: Plea se note new reference range as of September. Performed By: #### C BC, BMP, TROP, BNP, TSH ####[facility] [place] [place] [address] ALT enzyme act/vol 8 U/L Normal 4-52 [facility] Comment on above: Result Comment: Plea se note new reference range as of September. Performed By: #### C BC, BMP, TROP, BNP, TSH ####[address] [address] Anion gap 3 molar conc 11.3 mmol/L Normal 10-20 [facility] Comment on above: Performed By: #### C BC, BMP, TROP, BNP, TSH ####[address] [address] AST enzyme act/vol 15 U/L Normal 9-39 [facility] Comment on above: Result Comment: Plea se note new reference range as of September. Performed By: #### C BC, BMP, TROP, BNP, TSH ####[facility] [place] [place] [address] Bilirubin Ql (U) 0.4 mg/dL Normal 0.0-1.2 [facility] Comment on above: Performed By: #### C BC, BMP, TROP, BNP, TSH ####[address] [address] Calcium mass conc 8.6 mg/dL Normal 8.6-10.3 [facility] Comment on above: Result Comment: Plea se note new reference range as of September. Performed By: #### C BC, BMP, TROP, BNP, TSH ####[facility] [place] [place] [address] Chloride molar conc 106 mmol/L Normal 98-107 [facility] Comment on above: Performed By: #### C BC, BMP, TROP, BNP, TSH ####[facility] [place] [place] [address] CO2 molar conc 27 mmol/L Normal 21-32 [facility] Comment on above: Performed By: #### C BC, BMP, TROP, BNP, TSH ####[facility] [place] [place] [address] Creatinine mass conc 0.62 mg/dL Normal 0.50-1.30 [facility] Comment on above: Result Comment: Spring burns note new reference range as of September. Performed By: #### C BC, BMP, TROP, BNP, TSH ####[facility] [place] [place] [address] Estimated Creatinine Clearance 91 mL/min Low 94-145 [facility] Comment on above: Performed By: #### C BC, BMP, TROP, BNP, TSH ####[address] [address] GFR () >60 Normal [facility] Comment on above: Performed By: #### C BC, BMP, TROP, BNP, TSH ####[facility] [place] [place] [address] GFR (Non ) >60 Normal [facility] Comment on above: Result Comment: eGFR Units of measure: mL/min/1.73 m 2 Performed By: #### C BC, BMP, TROP, BNP, TSH ####[facility] [place] [place] [address] Glucose mass conc 105 mg/dL High 74-99 [facility] Comment on above: Performed By: #### C BC, BMP, TROP, BNP, TSH ####[facility] [place] [place] [address] Potassium molar conc 4.3 mmol/L Normal 3.5-5.3 [facility] Comment on above: Performed By: #### C BC, BMP, TROP, BNP, TSH ####[facility] [place] [place] [address] Protein mass conc 5.8 g/dL Low 6.4-8.2 [facility] Comment on above: Performed By: #### C BC, BMP, TROP, BNP, TSH ####[address] [address] Sodium molar conc 140 mmol/L Normal 136-145 [facility] Comment on above: Performed By: #### C BC, BMP, TROP, BNP, TSH ####[address] [address] Urea nitrogen mass conc (Bld) 13 mg/dL Normal 6-23 [facility] Comment on above: Result Comment: Spring burns note new reference range as of September. Performed By: #### C BC, BMP, TROP, BNP, TSH ####[address] [address] Consultation Reporton 2017 Consultation Report [facility] Patient: NATALIE GERBER [address] [facility] MR#: [id number] [place], [place] [address] : 1960 [address]: Dept: [facility] Loc: 9W 934-1 Consultation Service Dt: 02/25/18 Report#: [id number] Adm Dt: 02/24/18 Dis Dt: Initial Physician Consultation - Consulting Specialty Consulting Specialty: Cardiology - Consultation Date of Consultation: 02/25/18 Requesting Physician: Filiberto Michel Reason for Consult: LE swelling and MAGAÑA - PCP/Chief Complaint Primary Care Physician: Filiberto Michel Chief Complaint: LUE and facial numbness - History of Present Illness HPI: Lesia is a 57 year old male with super morbid obesity, CAD w/ history of angioplasty, HTN, HLD, Hypothyroidism that presented due to numbness and tingling in his left arm. Primary team and neurology is evaluating the patient for TIA vs stroke. Cardiology is being consulted due to patient complaining of shortness of breath and lightheadedness with ambulation. The patient states he walks 30-40 feet, becomes lightheaded and feels short of breath. He denies chest pain or palpitations. He is not sure when he started to feel this MAGAÑA. He also complains of swelling in his legs, in the morning when he wakes up his legs will be flat but after a few hours they begin to swell up. The swelling always goes down after a couple hours of elevation. The patient also reports an increase in weight overnight from 317 pounds to 322 pounds. - Past Medical History Neurological: CVA/Stroke, TIA/Transient Ischemic Attack(s) Other Neurological Hx: TPA 3 TIMES ADMINISTERED ENT/Eye: Eye problem Other ENT/Eye Hx: wears glassess Cardiac: Angioplasty, Coronary Artery Disease/CAD, Cardiac Cath, CHF, Heart Attack ([place]), High Cholesterol, HTN Respiratory: Pulmonary Embolism/PE, Pneumonia Other Respiratory HX: PE in 1998 GI: Abdominal Surgery, Diverticulitis, Gall Bladder Disease, GERD Other GI HX: hernia repair , Male: Enlarged Prostate Musculoskeletal: Arthritis, Back surgery, Degenerative Disc Disease, Degenerative Joint Disease, Hip replacement, left, Osteoarthritis Other Musculoskelatal Hx: laminectomy, L5,L4,L3 FUSED TOGETHER Endocrine: Hypothyroidism Hematologic: Anemia, Clotting Problems Infectious/Other Disease: MRSA Other Infectious or Other Hx: MRSA-1999 - Social History Smoking Status: Never smoker Does Patient Dip or Chew Tobacco: No Alcohol Use: No Use of Substances/Recreational Drugs: No Comment: Lives [place] with his . 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 - Family Health History Father Family Member Hx: Stroke, Heart Disease Mother Family Member Hx: Stroke, Heart Disease Sister Family Member Hx: Heart Disease - Allergies Allergies/Adverse Reactions: Allergies ketorolac Allergy (Severe, Verified 08/02/16 23:25) Hives nalbuphine Allergy (Severe, Verified 08/02/16 23:25) Shortness of Breath nalbuphine HCl * [From Nubain] Allergy (Verified 10/08/16 21:16) Unknown - Medications Home Medications: Aspirin [Aspirin, "Baby" (CHEWABLE)] 81 mg PO DAILY 07/14/14 [History Last Taken 08/04/16 10:05 81mg] Carvedilol [Coreg] 6.25 mg PO DAILY 07/14/14 [History Last Taken 08/04/16 10:05 6.25mg] Clopidogrel Bisulfate [Plavix] 75 mg PO DAILY 07/14/14 [History Last Taken 08/04/16 10:05 75mg] Simvastatin [Zocor] 40 mg PO QHS 07/20/15 [History Last Taken 08/03/16 20:30 40mg] Esomeprazole Magnesium [Nexium] 40 mg PO DAILY 07/19/16 [History Last Taken Unknown] Lisinopril [Zestril/Prinivil] 5 mg PO DAILY 08/02/16 [History Last Taken 08/04/16 10:05 10mg] Furosemide 20 mg PO DAILY 11/14/16 [History Last Taken Unknown] Levothyroxine Sodium 50 mcg PO DAILY 11/14/16 [History Last Taken Unknown] Melatonin 3 mg PO QHS 11/14/16 [History Last Taken Unknown] Nitroglycerin 0.4 mg SL Q5M PRN 11/14/16 [History Last Taken Unknown] ALPRAZolam [Xanax] 0.25 mg PO TID PRN 02/24/18 [History Last Taken Unknown] Cholecalciferol (Vitamin D3) [Vitamin D3] 1 cap PO DAILY 02/24/18 [History Last Taken Unknown] Cyanocobalamin [Vitamin B-12] 1,000 mcg PO DAILY 02/24/18 [History Last Taken Unknown] Dextroamphetamine/Amphetamin e [Adderall 20 mg Tablet] 20 mg PO DAILY 02/24/18 [History Last Taken Unknown] Gabapentin 400 mg PO DAILY 02/24/18 [History Last Taken Unknown] Oxycodone HCl/Acetaminophen [Percocet 5-325 mg Tablet] 2 each PO Q6 PRN 02/24/18 [History Last Taken Unknown] QUEtiapine FUMARATE [SEROquel] 100 mg PO QHS 02/24/18 [History Last Taken 02/24/18 20:00] Sennosides/Docusate Sodium [Senna Laxative Tablet] 1 each PO DAILY 02/24/18 [History Last Taken Unknown] Aspirin [Aspirin, "Baby" (CHEWABLE)] 81 mg PO DAILY 07/14/14 [History Last Taken 08/04/16 10:05 81mg] Carvedilol [Coreg] 6.25 mg PO DAILY 07/14/14 [History Last Taken 08/04/16 10:05 6.25mg] Clopidogrel Bisulfate [Plavix] 75 mg PO DAILY 07/14/14 [History Last Taken 08/04/16 10:05 75mg] Simvastatin [Zocor] 40 mg PO QHS 07/20/15 [History Last Taken 08/03/16 20:30 40mg] Esomeprazole Magnesium [Nexium] 40 mg PO DAILY 07/19/16 [History Last Taken Unknown] Lisinopril [Zestril/Prinivil] 5 mg PO DAILY 08/02/16 [History Last Taken 08/04/16 10:05 10mg] Furosemide 20 mg PO DAILY 11/14/16 [History Last Taken Unknown] Levothyroxine Sodium 50 mcg PO DAILY 11/14/16 [History Last Taken Unknown] Melatonin 3 mg PO QHS 11/14/16 [History Last Taken Unknown] Nitroglycerin 0.4 mg SL Q5M PRN 11/14/16 [History Last Taken Unknown] ALPRAZolam [Xanax] 0.25 mg PO TID PRN 02/24/18 [History Last Taken Unknown] Cholecalciferol (Vitamin D3) [Vitamin D3] 1 cap PO DAILY 02/24/18 [History Last Taken Unknown] Cyanocobalamin [Vitamin B-12] 1,000 mcg PO DAILY 02/24/18 [History Last Taken Unknown] Dextroamphetamine/Amphetamin e [Adderall 20 mg Tablet] 20 mg PO DAILY 02/24/18 [History Last Taken Unknown] Gabapentin 400 mg PO DAILY 02/24/18 [History Last Taken Unknown] Oxycodone HCl/Acetaminophen [Percocet 5-325 mg Tablet] 2 each PO Q6 PRN 02/24/18 [History Last Taken Unknown] QUEtiapine FUMARATE [SEROquel] 100 mg PO DAILY 02/24/18 [History Last Taken Unknown] Sennosides/Docusate Sodium [Senna Laxative Tablet] 1 each PO DAILY 02/24/18 [History Last Taken Unknown] Current Medications: Current Medications Acetaminophen (Tylenol) 650 mg PO Q4 PRN PRN Reason: Pain (mild)/Temp above 38.3 C Alprazolam (Xanax) 0.25 mg PO TID PRN PRN Reason: Anxiety Last Admin: 02/24/18 21:01 Dose: 0.25 mg Aspirin (Aspirin, "Baby" (Chewable)) 81 mg PO DAILY [facility] Last Admin: 02/27/18 09:57 Dose: 81 mg Carvedilol (Coreg) 6.25 mg PO DAILY [facility] Last Admin: 02/27/18 12:28 Dose: Not Given Clopidogrel Bisulfate (Plavix) 75 mg PO DAILY [facility] Last Admin: 02/27/18 09:57 Dose: 75 mg Cyanocobalamin (Vitamin B-12) 1,000 mcg PO DAILY [facility] Last Admin: 02/27/18 09:57 Dose: 1,000 mcg Dextrose (Dextrose Syringe) 25 ml IV Q15M PRN PRN Reason: Hypoglycemia Dextrose (Dextrose Syringe) 50 ml IV Q15M PRN PRN Reason: Hypoglycemia Dextrose (Instant Glucose) 37.5 g PO Q15M PRN PRN Reason: Hypoglycemia Enoxaparin Sodium (Lovenox) 40 mg SC DAILY [facility] Last Admin: 02/27/18 09:55 Dose: 40 mg Furosemide (Lasix) 20 mg PO DAILY [facility] Last Admin: 02/27/18 09:57 Dose: 20 mg Gabapentin (Neurontin) 400 mg PO DAILY [facility] Last Admin: 02/27/18 09:55 Dose: 400 mg Glucagon (Glucagon) 1 mg IM Q15M PRN PRN Reason: Hypoglycemia Levothyroxine Sodium (Synthroid) 50 mcg PO QDSYNTH [facility] Last Admin: 02/27/18 09:57 Dose: 50 mcg Lisinopril (Zestril/Prinivil) 5 mg PO DAILY [facility] Last Admin: 02/27/18 12:28 Dose: Not Given Melatonin (Melatonin) 3 mg PO QHS [facility] Last Admin: 02/26/18 21:33 Dose: 3 mg Metformin HCl (Glucophage Xr) 500 mg PO 0800,1700 [facility] Last Admin: 02/27/18 09:57 Dose: Not Given Methylphenidate HCl (Ritalin) 40 mg PO DAILY [facility] Last Admin: 02/27/18 09:55 Dose: 40 mg Nitroglycerin (Nitrostat) 400 mcg SL Q5M PRN PRN Reason: Chest Pain Oxycodone/Acetaminophen (Percocet) 2 tab PO Q6 PRN PRN Reason: Pain-moderate (4-6/10) Last Admin: 02/27/18 10:00 Dose: 2 tab Pantoprazole Sodium (Protonix) 40 mg PO DAILY [facility] Last Admin: 02/27/18 09:56 Dose: 40 mg Quetiapine Fumarate (Seroquel) 100 mg PO DAILY [facility] Last Admin: 02/27/18 09:53 Dose: Not Given Senna/Docusate Sodium (Senokot-S) 1 tab PO DAILY [facility] Last Admin: 02/27/18 09:56 Dose: 1 tab Simvastatin (Zocor) 40 mg PO QHS [facility] Last Admin: 02/26/18 21:33 Dose: 40 mg Vitamin D (Vitamin D) 2,000 units.intl PO DAILY [facility] Last Admin: 02/27/18 09:57 Dose: 2,000 units.intl Current Medications Acetaminophen (Tylenol) 650 mg PO Q4 PRN PRN Reason: Pain (mild)/Temp above 38.3 C Alprazolam (Xanax) 0.25 mg PO TID PRN PRN Reason: Anxiety Last Admin: 02/24/18 21:01 Dose: 0.25 mg Aspirin (Aspirin, "Baby" (Chewable)) 81 mg PO DAILY [facility] Last Admin: 02/25/18 10:39 Dose: 81 mg Carvedilol (Coreg) 6.25 mg PO DAILY [facility] Last Admin: 02/25/18 10:38 Dose: 6.25 mg Clopidogrel Bisulfate (Plavix) 75 mg PO DAILY [facility] Last Admin: 02/25/18 10:39 Dose: 75 mg Cyanocobalamin (Vitamin B-12) 1,000 mcg PO DAILY [facility] Last Admin: 02/25/18 10:38 Dose: 1,000 mcg Dextrose (Dextrose Syringe) 25 ml IV Q15M PRN PRN Reason: Hypoglycemia Dextrose (Dextrose Syringe) 50 ml IV Q15M PRN PRN Reason: Hypoglycemia Dextrose (Instant Glucose) 37.5 g PO Q15M PRN PRN Reason: Hypoglycemia Enoxaparin Sodium (Lovenox) 40 mg SC DAILY [facility] Last Admin: 02/25/18 10:39 Dose: 40 mg Furosemide (Lasix) 20 mg PO DAILY [facility] Last Admin: 02/25/18 10:38 Dose: 20 mg Gabapentin (Neurontin) 400 mg PO DAILY [facility] Last Admin: 02/25/18 10:45 Dose: 400 mg Glucagon (Glucagon) 1 mg IM Q15M PRN PRN Reason: Hypoglycemia Levothyroxine Sodium (Synthroid) 50 mcg PO QDSYNTH [facility] Last Admin: 02/25/18 05:47 Dose: 50 mcg Lisinopril (Zestril/Prinivil) 5 mg PO DAILY [facility] Last Admin: 02/25/18 10:39 Dose: 5 mg Melatonin (Melatonin) 3 mg PO QHS [facility] Last Admin: 02/24/18 21:01 Dose: 3 mg Methylphenidate HCl (Ritalin) 40 mg PO DAILY [facility] Last Admin: 02/25/18 10:40 Dose: 40 mg Nitroglycerin (Nitrostat) 400 mcg SL Q5M PRN PRN Reason: Chest Pain Oxycodone/Acetaminophen (Percocet) 2 tab PO Q6 PRN PRN Reason: Pain-moderate (4-6/10) Last Admin: 02/25/18 06:12 Dose: 2 tab Pantoprazole Sodium (Protonix) 40 mg PO DAILY [facility] Last Admin: 02/25/18 10:39 Dose: 40 mg Quetiapine Fumarate (Seroquel) 100 mg PO DAILY [facility] Last Admin: 02/25/18 10:38 Dose: 100 mg Senna/Docusate Sodium (Senokot-S) 1 tab PO DAILY [facility] Last Admin: 02/25/18 10:38 Dose: 1 tab Simvastatin (Zocor) 40 mg PO QHS [facility] Last Admin: 02/24/18 21:01 Dose: 40 mg Vitamin D (Vitamin D) 2,000 units.intl PO DAILY [facility] Last Admin: 02/25/18 10:39 Dose: 2,000 units.intl - Diagnostic Studies Lab Data: Labs (last 24 hrs) 02/27/18 11:59 POC Glucose 91 Labs (last 24 hrs) 02/25/18 02/25/18 02/24/18 11:02 07:10 16:40 WBC 6.4 RBC 3.77 L Hgb 10.5 L Hct 33.9 L MCV 89.9 MCH 27.9 MCHC 31.0 L RDW 14.0 Plt Count 187 MPV 9.6 Immature Gran % (Auto) 0.9 Neut % (Auto) 67 Lymph % (Auto) 22 L [place] % (Auto) 7 Eos % (Auto) 2 Baso % (Auto) 1 Nucleat RBC Rel Count 0.0 Immature Gran # (Auto) 0.1 Neut # (Auto) 4.3 Lymph # (Auto) 1.4 Hays # (Auto) 0.4 Eos # (Auto) 0.2 Baso # (Auto) 0.0 L Differential Method Sodium 140 Potassium 4.3 Chloride 106 Carbon Dioxide 27 Anion Gap 11.3 BUN 13 Creatinine 0.62 Estim Creat Clear Calc 91 L Est GFR ( Amer) >60 Est GFR (Non-Af Amer) >60 POC Glucose 112 H Fasting Glucose 105 H Hemoglobin A1c 6.1 Calcium 8.6 Total Bilirubin 0.4 AST 15 ALT 8 Alkaline Phosphatase 109 Troponin I B-Natriuretic Peptide Total Protein 5.8 L Albumin 3.3 L Triglycerides 266 Cholesterol 131 LDL Cholesterol 50.9 HDL Cholesterol 27.1 Cholesterol/HDL Ratio 4.83 TSH Free T4 0.8 Urine Color Urine Clarity Urine pH Ur Specific [place] Urine Protein Urine Glucose (UA) Urine Ketones Urine Blood Urine Nitrate Urine Bilirubin Urine Urobilinogen Ur Leukocyte Esterase Urine WBC Hyaline Casts Urine Mucus 02/24/18 02/24/18 02/24/18 12:25 11:35 11:35 WBC 6.8 RBC 3.91 L Hgb 10.8 L Hct 35.0 L MCV 89.5 MCH 27.6 MCHC 30.9 L RDW 13.9 Plt Count 193 MPV 9.3 Immature Gran % (Auto) Neut % (Auto) Lymph % (Auto) [place] % (Auto) Eos % (Auto) Baso % (Auto) Nucleat RBC Rel Count Immature Gran # (Auto) Neut # (Auto) Lymph # (Auto) [place] # (Auto) Eos # (Auto) Baso # (Auto) Differential Method Manual Sodium 139 Potassium 4.5 Chloride 106 Carbon Dioxide 29 Anion Gap 8.5 L BUN 15 Creatinine 0.75 Estim Creat Clear Calc No Ht and/or Wt Est GFR ( Amer) >60 Est GFR (Non-Af Amer) >60 POC Glucose Fasting Glucose 91 Hemoglobin A1c Calcium 8.6 Total Bilirubin AST ALT Alkaline Phosphatase Troponin I < 0.020 B-Natriuretic Peptide 35 Total Protein Albumin Triglycerides Cholesterol LDL Cholesterol HDL Cholesterol Cholesterol/HDL Ratio TSH 1.77 Free T4 Urine Color Yellow Urine Clarity Clear Urine pH 5.0 Ur Specific [place] 1.010 Urine Protein Negative Urine Glucose (UA) Negative Urine Ketones Negative Urine Blood Negative Urine Nitrate Negative Urine Bilirubin Negative Urine Urobilinogen Normal Ur Leukocyte Esterase Negative Urine WBC 0 Hyaline Casts 0-5 Urine Mucus Rare - Subjective Narrative ROS: Review of Systems completed. Review of Systems completed. - Review of Systems Constitutional: Denies: chills, fever Respiratory: Reports: shortness of breath, SOB with exertion. Denies: cough, orthopnea, wheezing Cardiovascular: Denies: chest pain, palpitations Gastrointestinal: Denies: abdominal pain, nausea, vomiting Genitourinary Exam M/F: Reports: no symptoms Musculoskeletal: Reports: no symptoms Integumentary: Reports: no symptoms Neurological: Reports: headache, weakness, numbness Psychiatric: Reports: no symptoms Endocrine: Reports: no symptoms reported Hematological/Lymphatic: Reports: no symptoms - I O/Vital Signs I O/VS: Intake/Output/Wt 02/24/18 02/25/18 02/26/18 02/27/18 23:59 23:59 23:59 23:59 Intake Total 720 2320 920 850 Balance 720 2320 920 850 Weight 146.4 kg 146.5 kg Intake: Intake 900 Oral 720 1420 920 850 Other: Height 1.65 m Vital Signs (last 24 hrs) Temp Pulse Resp BP Pulse Ox 02/27/18 14:00 36.0 C L 65 16 131/64 99 02/27/18 10:00 36.1 C L 66 16 96/46 L 98 02/26/18 21:41 36.0 C L 74 20 92/42 L 98 Intake/Output/Wt 02/22/18 02/23/18 02/24/18 02/25/18 23:59 23:59 23:59 23:59 Intake Total 720 830 Balance 720 830 Weight 146.4 kg Intake: Oral 720 830 Other: Height 1.65 m Vital Signs (last 24 hrs) Temp Pulse Resp BP Pulse Ox 02/25/18 10:38 36.3 C L 69 18 121/71 98 02/25/18 10:00 61 02/25/18 06:00 36 C L 69 20 151/80 H 97 02/25/18 02:00 36 C L 67 20 111/68 96 02/24/18 21:57 69 09/25/18 21:44 35.5 C L 68 18 107/60 96 02/24/18 18:00 36.5 C 76 20 113/56 L 98 02/24/18 15:51 36.3 C L 71 18 98 02/24/18 15:00 78 18 124/64 96 02/24/18 14:06 74 18 133/61 96 02/24/18 12:31 72 20 130/68 95 Oxygen: Oxygen O2 Sat by Pulse Oximetry 99 Oxygen Delivery Method Room Air Oxygen O2 Sat by Pulse Oximetry 98 Oxygen Delivery Method Room Air - Physical Exam Constitutional: Positive: alert, in no apparent distress, obese, other HEENT: Positive: head normal inspection, PERRL, EOMI Neck: Positive: Supple, no JVD Respiratory: Positive: other (lung exam limited by obesity but no wheezing, rhonchi or rales were auscultated) Cardiovascular: Positive: regular rate, normal rhythm, other (heart exam is limited by obesity but no murmurs rubs or gallops were auscultated) GI/Abdominal: Positive: soft, nontender, nondistended : Positive: deferred Extremities: Positive: no cellulitis, bilateral pulses positive, negative jordan's sign bilaterally, other (1+ pitting edema mid way to knee bilaterally) Neurological: Positive: alert, oriented X3, CN II-XII intact Integumentary: Positive: warm, dry, intact, normal color Psychiatric: Positive: normal affect, normal mood - Assessment and Plan (1) Hx TIA/stroke w/o resid Status: Chronic (2) HLD (hyperlipidemia) Status: Chronic QualifierTitle: Hyperlipidemia type: unspecified Qualified Code(s): E78.5 - Hyperlipidemia, unspecified (3) Diabetes Status: Chronic QualifierTitle: Diabetes mellitus type: type 2 Diabetes mellitus prison insulin use: without prison use (4) BMI 50.0-59.9, adult Status: Chronic - Comments Impression Comments: 02/25/18 15:18 Patient is a 57 year old with super morbid obesity presents due to numbness and tingling in his left arm and face suspected to be due to TIA vs stroke. Neuro workup in process. Cardiology is on consultation for swelling in legs and [place]. ECHO was done which showed preserved EF of 600-65% and no pericardial effusion. There is slightly elevated RVSP at 40.8 but echo otherwise unremarkable. Patient's swelling is likely dependent edema and his shortness of breath is likely due to obesity and deconditioning and BNP, CXR and echo are negative for heart failure exacerbation. Patient does have early pulmonary hypertension. Recommend sleep study evaluation and patient may benefit from cpap or bipap per pulmonary recommendations. #TIA vs CVA CT of head did show remote R cerebellar infarct MRI/MRA head ordered but patient is unable to fit in the machine carotid ultrasound ordered Neuro on and managing #Super morbid obesity BMI 53.7 likely cause of shortness of breath #Pulmonary hypertension RVSP is 40.8 urged weight loss and recommend pulmonary evaluation for LISA and obesity hypoventilation syndrome #HTN continue home dosed lisinopril, coreg #HLD continue home dosed Zocor LDL is at goal at 51 Consult Note Co-Signature - Attestation Attestation: Saw Patient Agree Additionally: I have seen and evaluated this patient, I personally obtained the rubin critical portions of the consult, I reviewed resident's documentation discussed Pt with resident, I agree with resident's medical decision making as documented in note Patient evaluation date: 02/25/18 Critical Diagnosis (required for teaching note): 02/27/18 14:33 1.) Multifactorial peripheral edema from aobesity, predominantly withou evidence of CHF 2.) Morbid obesity Normal [facility] [place] Consultation Report [facility] Patient: NATALIE GERBER [address] [facility] MR#: [id number] [place], [place] [address] : 1960 Ord. : Dept: [facility]OC [place] [facility] [id number] Consultation Service Dt: 02/25/18 Report#: [id number] Adm Dt: 02/24/18 Dis Dt: Initial Physician Consultation - Consulting Specialty Consulting Specialty: Endocrinology - Consultation Date of Consultation: 02/25/18 Requesting Physician: Filiberto Michel Reason for Consult: possible diabetes or thyroid disease. - PCP/Chief Complaint Primary Care Physician: Filiberto Michel Chief Complaint: LUE and facial numbness - History of Present Illness HPI: the patient has been seen and examined at around 8;00 in the morning. the patient's 57-year-old who is a prison rather than 5 from [place]. the patient has been admitted with worsening of his left facial numbness and left upper extremity numbness as well as weakness. the patient has been complaining of dizziness and easy fatigability over the last 2 or 3 days. he has had headaches. he reports stroke that happened to him what he needed to have tpa. he denies any chest pain. denies shortness of breath. when i asked him if he had diabetes or not he mentioned that he did not have a good workup at [facility] and he was told that he does not have diabetes. actually he was surprised that i have been talking to him about that. past medical history coronary artery [id number] heart failure. hyperlipidemia hypertension history of cva-stroke with tpa and history of pulmonary embolus diverticulitis gallbladder disease gerd history of hernia repair bph arthritis surgery djd status post laminectomy l3-l5 hypothyroidism history also MRSA anemia Family history denies any diabetes in the family. dad of stroke review of systems head denies headaches Eyes denies negative for double vision EN throat negative pulmonary denies shortness of breath cardiovascular denies chest pain gi negative gu negative musculoskeletal positive arthritis neurologic see present illness concerning numbness and weakness. endocrine positive thyroid disease but denies diabetes. skin negative constitutional positive weight gain. social history patient lives at prison. apparently his is also at the same prison. - Past Medical History Neurological: CVA/Stroke, TIA/Transient Ischemic Attack(s) Other Neurological Hx: TPA 3 TIMES ADMINISTERED ENT/Eye: Eye problem Other ENT/Eye Hx: wears glassess Cardiac: Angioplasty, Coronary Artery Disease/CAD, Cardiac Cath, CHF, Heart Attack ([place]), High Cholesterol, HTN Respiratory: Pulmonary Embolism/PE, Pneumonia Other Respiratory HX: PE in 1998 GI: Abdominal Surgery, Diverticulitis, Gall Bladder Disease, GERD Other GI HX: hernia repair , Male: Enlarged Prostate Musculoskeletal: Arthritis, Back surgery, Degenerative Disc Disease, Degenerative Joint Disease, Hip replacement, left, Osteoarthritis Other Musculoskelatal Hx: laminectomy, L5,L4,L3 FUSED TOGETHER Endocrine: Hypothyroidism Hematologic: Anemia, Clotting Problems Infectious/Other Disease: MRSA Other Infectious or Other Hx: MRSA-1999 - Social History Smoking Status: Never smoker Does Patient Dip or Chew Tobacco: No Alcohol Use: No Use of Substances/Recreational Drugs: No Comment: Lives in [facility] with his . 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 - Family Health History Father Family Member Hx: Stroke, Heart Disease Mother Family Member Hx: Stroke, Heart Disease Sister Family Member Hx: Heart Disease - Allergies Allergies/Adverse Reactions: Allergies ketorolac Allergy (Severe, Verified 08/02/16 23:25) Hives nalbuphine Allergy (Severe, Verified 08/02/16 23:25) Shortness of Breath nalbuphine HCl * [From [facility]] Allergy (Verified 10/08/16 21:16) Unknown - Medications Home Medications: Aspirin [Aspirin, "Baby" (CHEWABLE)] 81 mg PO DAILY 07/14/14 [History Last Taken 08/04/16 10:05 81mg] Carvedilol [Coreg] 6.25 mg PO DAILY 07/14/14 [History Last Taken 08/04/16 10:05 6.25mg] Clopidogrel Bisulfate [Plavix] 75 mg PO DAILY 07/14/14 [History Last Taken 08/04/16 10:05 75mg] Simvastatin [Zocor] 40 mg PO QHS 07/20/15 [History Last Taken 08/03/16 20:30 40mg] Esomeprazole Magnesium [Nexium] 40 mg PO DAILY 07/19/16 [History Last Taken Unknown] Lisinopril [Zestril/Prinivil] 5 mg PO DAILY 08/02/16 [History Last Taken 08/04/16 10:05 10mg] Furosemide 20 mg PO DAILY 11/14/16 [History Last Taken Unknown] Levothyroxine Sodium 50 mcg PO DAILY 11/14/16 [History Last Taken Unknown] Melatonin 3 mg PO QHS 11/14/16 [History Last Taken Unknown] Nitroglycerin 0.4 mg SL Q5M PRN 11/14/16 [History Last Taken Unknown] ALPRAZolam [Xanax] 0.25 mg PO TID PRN 02/24/18 [History Last Taken Unknown] Cholecalciferol (Vitamin D3) [Vitamin D3] 1 cap PO DAILY 02/24/18 [History Last Taken Unknown] Cyanocobalamin [Vitamin B-12] 1,000 mcg PO DAILY 02/24/18 [History Last Taken Unknown] Dextroamphetamine/Amphetamin e [Adderall 20 mg Tablet] 20 mg PO DAILY 02/24/18 [History Last Taken Unknown] Gabapentin 400 mg PO DAILY 02/24/18 [History Last Taken Unknown] Oxycodone HCl/Acetaminophen [Percocet 5-325 mg Tablet] 2 each PO Q6 PRN 02/24/18 [History Last Taken Unknown] QUEtiapine FUMARATE [SEROquel] 100 mg PO DAILY 02/24/18 [History Last Taken Unknown] Sennosides/Docusate Sodium [Senna Laxative Tablet] 1 each PO DAILY 02/24/18 [History Last Taken Unknown] Current Medications: Current Medications Acetaminophen (Tylenol) 650 mg PO Q4 PRN PRN Reason: Pain (mild)/Temp above 38.3 C Alprazolam (Xanax) 0.25 mg PO TID PRN PRN Reason: Anxiety Last Admin: 02/24/18 21:01 Dose: 0.25 mg Aspirin (Aspirin, "Baby" (Chewable)) 81 mg PO DAILY [facility] Carvedilol (Coreg) 6.25 mg PO DAILY [facility] Clopidogrel Bisulfate (Plavix) 75 mg PO DAILY [facility] Cyanocobalamin (Vitamin B-12) 1,000 mcg PO DAILY [facility] Dextrose (Dextrose Syringe) 25 ml IV Q15M PRN PRN Reason: Hypoglycemia Dextrose (Dextrose Syringe) 50 ml IV Q15M PRN PRN Reason: Hypoglycemia Dextrose (Instant Glucose) 37.5 g PO Q15M PRN PRN Reason: Hypoglycemia Enoxaparin Sodium (Lovenox) 40 mg SC DAILY [facility] Furosemide (Lasix) 20 mg PO DAILY [facility] Gabapentin (Neurontin) 400 mg PO DAILY [facility] Glucagon (Glucagon) 1 mg IM Q15M PRN PRN Reason: Hypoglycemia Levothyroxine Sodium (Synthroid) 50 mcg PO QDSPENDING SALE TO [facility] Last Admin: 02/25/18 05:47 Dose: 50 mcg Lisinopril (Zestril/Prinivil) 5 mg PO DAILY [facility] Melatonin (Melatonin) 3 mg PO QHS [facility] Last Admin: 02/24/18 21:01 Dose: 3 mg Nitroglycerin (Nitrostat) 400 mcg SL Q5M PRN PRN Reason: Chest Pain Non-Formulary Medication (Dextroamphetamine/Amphetami ne [Adderall 20 Mg Tablet]) 20 mg PO DAILY [facility] Oxycodone/Acetaminophen (Percocet) 2 tab PO Q6 PRN PRN Reason: Pain-moderate (4-6/10) Last Admin: 02/25/18 06:12 Dose: 2 tab Pantoprazole Sodium (Protonix) 40 mg PO DAILY [facility] Quetiapine Fumarate (Seroquel) 100 mg PO DAILY [facility] Senna/Docusate Sodium (Senokot-S) 1 tab PO DAILY [facility] Simvastatin (Zocor) 40 mg PO QHS [facility] Last Admin: 02/24/18 21:01 Dose: 40 mg Vitamin D (Vitamin D) 2,000 units.intl PO DAILY [facility] - Diagnostic Studies Lab Data: Labs (last 24 hrs) 02/25/18 02/24/18 02/24/18 07:10 16:40 12:25 WBC 6.4 RBC 3.77 L Hgb 10.5 L Hct 33.9 L MCV 89.9 MCH 27.9 MCHC 31.0 L RDW 14.0 Plt Count 187 MPV 9.6 Immature Gran % (Auto) 0.9 Neut % (Auto) 67 Lymph % (Auto) 22 L [place] % (Auto) 7 Eos % (Auto) 2 Baso % (Auto) 1 Nucleat RBC Rel Count 0.0 Immature Gran # (Auto) 0.1 Neut # (Auto) 4.3 Lymph # (Auto) 1.4 [place] # (Auto) 0.4 Eos # (Auto) 0.2 Baso # (Auto) 0.0 L Differential Method Sodium 140 Potassium 4.3 Chloride 106 Carbon Dioxide 27 Anion Gap 11.3 BUN 13 Creatinine 0.62 Estim Creat Clear Calc 91 L Est GFR ( Amer) >60 Est GFR (Non-Af Amer) >60 POC Glucose 112 H Fasting Glucose 105 H Calcium 8.6 Total Bilirubin 0.4 AST 15 ALT 8 Alkaline Phosphatase 109 Troponin I B-Natriuretic Peptide Total Protein 5.8 L Albumin 3.3 L Triglycerides 266 Cholesterol 131 LDL Cholesterol 50.9 HDL Cholesterol 27.1 Cholesterol/HDL Ratio 4.83 TSH Urine Color Yellow Urine Clarity Clear Urine pH 5.0 Ur Specific [place] 1.010 Urine Protein Negative Urine Glucose (UA) Negative Urine Ketones Negative Urine Blood Negative Urine Nitrate Negative Urine Bilirubin Negative Urine Urobilinogen Normal Ur Leukocyte Esterase Negative Urine WBC 0 Hyaline Casts 0-5 Urine Mucus Rare 02/24/18 02/24/18 11:35 11:35 WBC 6.8 RBC 3.91 L Hgb 10.8 L Hct 35.0 L MCV 89.5 MCH 27.6 MCHC 30.9 L RDW 13.9 Plt Count 193 MPV 9.3 Immature Gran % (Auto) Neut % (Auto) Lymph % (Auto) [place] % (Auto) Eos % (Auto) Baso % (Auto) Nucleat RBC Rel Count Immature Gran # (Auto) Neut # (Auto) Lymph # (Auto) [place] # (Auto) Eos # (Auto) Baso # (Auto) Differential Method Manual Sodium 139 Potassium 4.5 Chloride 106 Carbon Dioxide 29 Anion Gap 8.5 L BUN 15 Creatinine 0.75 Estim Creat Clear Calc No Ht and/or Wt Est GFR ( Amer) >60 Est GFR (Non-Af Amer) >60 POC Glucose Fasting Glucose 91 Calcium 8.6 Total Bilirubin AST ALT Alkaline Phosphatase Troponin I < 0.020 B-Natriuretic Peptide 35 Total Protein Albumin Triglycerides Cholesterol LDL Cholesterol HDL Cholesterol Cholesterol/HDL Ratio TSH 1.77 Urine Color Urine Clarity Urine pH Ur Specific [place] Urine Protein Urine Glucose (UA) Urine Ketones Urine Blood Urine Nitrate Urine Bilirubin Urine Urobilinogen Ur Leukocyte Esterase Urine WBC Hyaline Casts Urine Mucus - Subjective Narrative ROS: Review of Systems completed. - I O/Vital Signs I O/VS: Intake/Output/Wt 02/22/18 02/23/18 02/24/18 02/25/18 23:59 23:59 23:59 23:59 Intake Total 720 Balance 720 Weight 146.4 kg Intake: Oral 720 Other: Height 1.65 m Vital Signs (last 24 hrs) Temp Pulse Resp BP Pulse Ox 02/25/18 06:00 36 C L 69 20 151/80 H 97 02/25/18 02:00 36 C L 67 20 111/68 96 02/24/18 21:57 69 02/24/18 21:44 35.5 C L 68 18 107/60 96 02/24/18 18:00 36.5 C 76 20 113/56 L 98 02/24/18 15:51 36.3 C L 71 18 98 02/24/18 15:00 78 18 124/64 96 02/24/18 14:06 74 18 133/61 96 02/24/18 12:31 72 20 130/68 95 02/24/18 11:05 36.8 C 72 18 159/90 H 100 Oxygen: Oxygen O2 Sat by Pulse Oximetry 97 Oxygen Delivery Method Room Air - Physical Exam Constitutional: Positive: alert HEENT: Positive: head normal inspection Neck: Positive: no thyromegaly, no bruit Respiratory: Positive: normal lung sounds bilaterally Cardiovascular: Positive: +S1, +S2 GI/Abdominal: Positive: soft, nontender, nondistended Extremities: Positive: leg edema Neurological: Positive: alert, oriented X3, right hemiplegia Integumentary: Positive: warm, dry, no rash Psychiatric: Positive: depressed - Comments Impression Comments: 02/25/18 13:08 patient was probably have metabolic syndrome. although i doubt that he has dipti diabetes but he does have insulin resistance due to his truncal obesity. we will do a c-peptide level. we will see when was the last time he had an a1c done. we will continue to monitor his glucose levels via blood draws. he is very much objecting to the fact that i asked him if he has diabetes possible new akk-vallfitrkx-rvraymedokeu of old cva. neurology service will be on consult. thyroid disease. this will be monitored and will do levels to detect adequacy. congestive heart failure and-coronary artery disease. hyperlipidemia. patient is on a statin. hypertension. patient is radha inhibitor and beta-alpha blockade. vitamin d deficiency. will ascertain the adequacy of treatment mental health problems. vitamin b12 deficiency on oral replacement. high bmi. patient was too sensitive to discuss this at this point. intake of PPI. will monitor magnesium levels. Normal [facility] Free T3on 02-25-2018 T3 free mass conc 3.1 pg/mL Normal 1.8-4.2 [facility] Comment on above: Result Comment: Debra [facility] Site: [facility] - [id number] [place] [address] Performed By: #### C BC, BMP, TROP, BNP, TSH ####[facility] [place] [address] Free T4on 02-25-2018 T4 free mass conc 0.8 ng/dL Normal 0.78-1.48 [facility] Comment on above: Performed By: #### C BC, BMP, TROP, BNP, TSH ####[facility] [place] [place] [address] General Medical Progress Not clovis 02-25-2018 Protein mass conc [facility] Patient: NATALIE GERBER [address] MR#: [id number] [place], [place] [address] : 1960 [address]: Dept: PDOC Loc: [id number] General Medical Progress Note Service Dt: 02/25/18 Report#: [id number] Adm Dt: 02/24/18 Dis Dt: General-Medical Progress Note - Patient Visit Reason Visit Reason: PARESTHESIA, DYSPNEA - Chief Complaint Chief Complaint: LUE and facial numbness - Subjective Narrative HPI/ROS: facial and llu parasthesias, leg edema persists. No new symptoms. - Review of Systems All systems: 10 point review of systems negative except for what is stated in HPI - I O/Vital Signs I O/VS: Vital Signs Temp 36.3 C L 02/25/18 10:38 Pulse 69 02/25/18 10:38 Resp 18 02/25/18 10:38 BP 121/71 02/25/18 10:38 Pulse Ox 98 02/25/18 10:38 Intake Output 02/24/18 02/24/18 02/25/18 11:59 23:59 11:59 Intake Total 720 830 Balance 720 830 Weight 146.4 kg Intake: Oral 720 830 Other: Height 1.65 m 1.65 m - Patient Exam General appearance: anxious, obese Head: Positive: atraumatic Eyes: Positive: normal appearance Pupils: Positive: equal and reactive ENT: Positive: normal exam Neck: Positive: supple Respiratory: Positive: normal lung sounds bilaterally Cardiovascular: Positive: regular rate, normal rhythm, normal heart sounds GI/Abdominal: Positive: soft, nontender, normal bowel sounds Extremities: Positive: negative jordan's sign bilaterally, leg edema Neurological: Positive: alert, oriented X3 Integumentary: Positive: no rash - Lab Diagnostic Data Diagrams: 02/25/18 07:10 02/25/18 07:10 Chemistry: Chemistry (Last 24hrs) 02/25/18 02/24/18 02/24/18 07:10 16:40 11:35 Sodium 140 Potassium 4.3 Chloride 106 Carbon Dioxide 27 Anion Gap 11.3 BUN 13 Creatinine 0.62 Estim Creat Clear Calc 91 L Est GFR ( Amer) >60 Est GFR (Non-Af Amer) >60 POC Glucose 112 H Fasting Glucose 105 H Calcium 8.6 Total Bilirubin 0.4 AST 15 ALT 8 Alkaline Phosphatase 109 Troponin I B-Natriuretic Peptide 35 Total Protein 5.8 L Albumin 3.3 L Triglycerides 266 Cholesterol 131 LDL Cholesterol 50.9 HDL Cholesterol 27.1 Cholesterol/HDL Ratio 4.83 TSH 02/24/18 11:35 Sodium 139 Potassium 4.5 Chloride 106 Carbon Dioxide 29 Anion Gap 8.5 L BUN 15 Creatinine 0.75 Estim Creat Clear Calc No Ht and/or Wt Est GFR ( Amer) >60 Est GFR (Non-Af Amer) >60 POC Glucose Fasting Glucose 91 Calcium 8.6 Total Bilirubin AST ALT Alkaline Phosphatase Troponin I < 0.020 B-Natriuretic Peptide Total Protein Albumin Triglycerides Cholesterol LDL Cholesterol HDL Cholesterol Cholesterol/HDL Ratio TSH 1.77 - Medications Meds: Current Medications Acetaminophen (Tylenol) 650 mg PO Q4 PRN PRN Reason: Pain (mild)/Temp above 38.3 C Alprazolam (Xanax) 0.25 mg PO TID PRN PRN Reason: Anxiety Last Admin: 02/24/18 21:01 Dose: 0.25 mg Aspirin (Aspirin, "Baby" (Chewable)) 81 mg PO DAILY [facility] Last Admin: 02/25/18 10:39 Dose: 81 mg Carvedilol (Coreg) 6.25 mg PO DAILY [facility] Last Admin: 02/25/18 10:38 Dose: 6.25 mg Clopidogrel Bisulfate (Plavix) 75 mg PO DAILY [facility] Last Admin: 02/25/18 10:39 Dose: 75 mg Cyanocobalamin (Vitamin B-12) 1,000 mcg PO DAILY [facility] Last Admin: 02/25/18 10:38 Dose: 1,000 mcg Dextrose (Dextrose Syringe) 25 ml IV Q15M PRN PRN Reason: Hypoglycemia Dextrose (Dextrose Syringe) 50 ml IV Q15M PRN PRN Reason: Hypoglycemia Dextrose (Instant Glucose) 37.5 g PO Q15M PRN PRN Reason: Hypoglycemia Enoxaparin Sodium (Lovenox) 40 mg SC DAILY [facility] Last Admin: 02/25/18 10:39 Dose: 40 mg Furosemide (Lasix) 20 mg PO DAILY [facility] Last Admin: 02/25/18 10:38 Dose: 20 mg Gabapentin (Neurontin) 400 mg PO DAILY [facility] Last Admin: 02/25/18 10:45 Dose: 400 mg Glucagon (Glucagon) 1 mg IM Q15M PRN PRN Reason: Hypoglycemia Levothyroxine Sodium (Synthroid) 50 mcg PO QDSYNTH [facility] Last Admin: 02/25/18 05:47 Dose: 50 mcg Lisinopril (Zestril/Prinivil) 5 mg PO DAILY [facility] Last Admin: 02/25/18 10:39 Dose: 5 mg Melatonin (Melatonin) 3 mg PO QHS [facility] Last Admin: 02/24/18 21:01 Dose: 3 mg Methylphenidate HCl (Ritalin) 40 mg PO DAILY [facility] Last Admin: 02/25/18 10:40 Dose: 40 mg Nitroglycerin (Nitrostat) 400 mcg SL Q5M PRN PRN Reason: Chest Pain Oxycodone/Acetaminophen (Percocet) 2 tab PO Q6 PRN PRN Reason: Pain-moderate (4-6/10) Last Admin: 02/25/18 06:12 Dose: 2 tab Pantoprazole Sodium (Protonix) 40 mg PO DAILY [facility] Last Admin: 02/25/18 10:39 Dose: 40 mg Quetiapine Fumarate (Seroquel) 100 mg PO DAILY [facility] Last Admin: 02/25/18 10:38 Dose: 100 mg Senna/Docusate Sodium (Senokot-S) 1 tab PO DAILY [facility] Last Admin: 02/25/18 10:38 Dose: 1 tab Simvastatin (Zocor) 40 mg PO QHS [facility] Last Admin: 02/24/18 21:01 Dose: 40 mg Vitamin D (Vitamin D) 2,000 units.intl PO DAILY [facility] Last Admin: 02/25/18 10:39 Dose: 2,000 units.intl Allergies/Adv: Allergies Allergy/AdvReac Type Severity Reaction Status Date / Time ketorolac Allergy Severe Hives Verified 08/02/16 23:25 nalbuphine Allergy Severe Shortness Verified 08/02/16 23:25 of Breath nalbuphine HCl * Allergy Unknown Verified 10/08/16 21:16 [From Nubain] - Assessment/Plan (1) Facial paresthesia Status: Acute (2) Arm paresthesia, left Status: Acute (3) DVT prophylaxis Status: Acute (4) Dyspnea Status: Acute (5) Morbid obesity Status: Acute (6) Diabetes Status: Chronic Qualifiers: Diabetes mellitus type: type 2 Diabetes mellitus prison insulin use: without prison use (7) CHF exacerbation Status: Suspected Qualifiers: Heart failure type: unspecified Qualified Code(s): I50.9 - Heart failure, unspecified (8) Chronic back pain Status: Chronic Qualifiers: Back pain location: back pain in unspecified location Back pain laterality: midline Qualified Code(s): M54.9 - Dorsalgia, unspecified (9) GERD (gastroesophageal reflux disease) Status: Chronic Qualifiers: Esophagitis presence: esophagitis presence not specified Qualified Code(s): K21.9 - Gastro-esophageal reflux disease without esophagitis (10) HLD (hyperlipidemia) Status: Chronic Qualifiers: Hyperlipidemia type: unspecified Qualified Code(s): E78.5 - Hyperlipidemia, unspecified (11) Hypothyroidism Status: Chronic Qualifiers: Hypothyroidism type: acquired Qualified Code(s): E03.9 - Hypothyroidism, unspecified - Comments Impression: 02/24/18 16:38 Parasthesias, etiology uncertain. Many co-morbidities. See orders for 4rx plan. 02/25/18 11:25 Consults appreciated, w/u continues - Patient Time (minutes) Time Spent w/Patient: 31 Normal [facility] Hemoglobin A1con 02-25-2018 Hemoglobin A1c/Hemoglobin.total mass fraction (Bld) 6.1 % Normal 4.4-6.3 [facility] Comment on above: Performed By: #### C BC, BMP, TROP, BNP, TSH ####[facility] [place] [address] Lipid Profileon 02-25-2018 Cholesterol in HDL mass conc 27.1 mg/dL Normal 39-96 [facility] Comment on above: Result Comment: Refdianne stahl ranges:Age Very Low Low Normal High0-19y: <35 <40 40-4520-24y: <40 >45>24y: <40 40-60 >60 Performed By: #### C BC, BMP, TROP, BNP, TSH ####[facility] [place] [address] Cholesterol in LDL mass conc 50.9 mg/dL Normal 0-130 [facility] Comment on above: Performed By: #### C BC, BMP, TROP, BNP, TSH ####[facility] [place], [place] [id number] Cholesterol mass conc 131 mg/dL Normal 0-200 [facility] Comment on above: Result Comment: Refe favio range:Age: Desirable Borderline High High0-19y: 0-169 170-199 >=49800-72b: 0-189 190-224 >=225>24y: 0-199 200-239 >=240All ranges based on fasting samples Performed By: #### C BC, BMP, TROP, BNP, TSH ####[facility] [place] [address] Cholesterol.total/Cho lesterol in HDL mass ratio 4.83 {ratio} Normal 0-6.9 [facility] Comment on above: Performed By: #### C BC, BMP, TROP, BNP, TSH ####[facility] [place] [place] [address] Triglycerides, Serum 266 mg/dL Normal 30-150 [facility] Comment on above: Result Comment: Refe favio range:Age Desirable Borderline High Very Hemn1t-49z: 05-33119j-0z: 0-74 75-99 >=76333-53h: 0-89 90-129 >=31049-51w: 0-114 115-149 >=150>24y: 0-149 150-199 200-499 >=500 Performed By: #### C BC, BMP, TROP, BNP, TSH ####[facility] [place] [place] [address] NR MR CERVICAL WO/W CONTRAST on 02-25-2018 NR MR CERVICAL WO/W CONTRAST Patient Name: NATALIE GERBER STUDY: NR MR CERVICAL WO/W CONTRAST; 02/25/2018 8:10 pm INDICATION: stroke. COMPARISON: None. ACCESSION NUMBER(S): [id number] ORDERING CLINICIAN: OREST STECYK TECHNIQUE: Sagittal T1, T2, STIR, axial T1 and axial T2 weighted images were acquired through the cervical spine. Axial and sagittal post-contrast T1 weighted images were also acquired. The patient received 20 mL of MultiHance. FINDINGS: The images are degraded by patient motion. Alignment: There is straightening of the normal cervical lordosis with subtle, grade 1 anterolisthesis of C3 on C4 and retrolisthesis of C5 on C6 and C6 on C7. Vertebrae/Intervertebral Discs: The vertebral bodies demonstrate expected height. There are degenerative endplate signal changes at C5/6 and C6/7 in particular. Loss of disc height and endplate spurring are also most pronounced at C5/6 and C6/7. Cord: The cervical cord is degraded by artifact and patient motion. Within these limitations, there is no definite intrinsic signal abnormality or abnormal enhancement of the cervical cord. C1-C2: The cervicomedullary junction appears unremarkable. There is no central canal stenosis. C2-C3: There is no posterior disc contour abnormality. Facet and uncovertebral joint hypertrophy are demonstrated on the left and there is at least moderate associated neural foraminal stenosis. C3-C4: There is minimal disc bulging with partial effacement of the ventral subarachnoid space. Left greater than right facet and uncovertebral joint hypertrophy contribute to severe left and mild right neural foraminal stenosis. C4-C5: There is subtle disc bulging without significant central canal stenosis. Facet and uncovertebral joint hypertrophy contribute to at least mild neural foraminal stenosis. C5-C6: There is a posterior disc/osteophyte complex effacing the ventral subarachnoid space and contributing to mild central canal stenosis. There is severe neural foraminal stenosis, right greater than left secondary to facet and uncovertebral joint hypertrophy. C6-C7: There is a posterior disc/osteophyte complex contributing to effacement of the ventral subarachnoid space and flattening of the ventral cord as it is draped over its posterior margin. There is moderate central canal stenosis. Facet and uncovertebral joint hypertrophy are demonstrated and there is likely at least moderate, left greater than right neural foraminal narrowing. C7-T1: There is minimal disc bulging without significant central canal stenosis. Uncovertebral joint and facet hypertrophy contribute to moderate neural foraminal narrowing. There is mild disc bulging at T1-2 and T2-3. There is also partial effacement of the posterior right subarachnoid space at T1-2 secondary to facet hypertrophy. The prevertebral and posterior paraspinous soft tissues are within normal limits. IMPRESSION: 1. Limited, motion degraded examination. 2. Multilevel degenerative changes of the cervical spine. Associated central canal stenosis is most pronounced at C6-7 and C5-6. There is also multilevel facet and uncovertebral joint hypertrophy, most pronounced on the left at C2-3 and C3-4. Electronically signed by: DO Teagan CARLTON [facility] ([facility]3] NR MRA HEAD W/O Con 02-26-20 NR MRA HEAD W/O C Patient Name: NATALIE GERBER STUDY: NR MRI BRAIN W/WO CONTRAST; NR MRA HEAD W/O C; 02/25/2018 8:07 pm INDICATION: stroke. MS workup. COMPARISON: Head CT February 24, 2018 and MRI of the brain October 07, 2016. ACCESSION NUMBER(S): [id number]; [id number] ORDERING CLINICIAN: FILIBERTO MICHEL TECHNIQUE: Axial T2, FLAIR, DWI, gradient echo T2 and T1 weighted images of brain were acquired. Post contrast T1 weighted images were acquired after administration of 20 mL MultiHance intravenous contrast administration. Volumetric FLAIR images were also acquired and multiplanar reformats were submitted for review. [id number] MRA of the head was performed. The images were reviewed as source images and maximum intensity projections. FINDINGS: Brain: CSF Spaces: The ventricles, sulci and basal cisterns are within normal limits. Parenchyma: There is no diffusion restriction abnormality to suggest acute infarct. There is again a focus of encephalomalacia in the right cerebellum. There are nonspecific hyperintensities on FLAIR and T2 weighted imaging in the subcortical and periventricular white matter. Overall, allowing for differences in slice positioning, partial volume averaging, and patient motion, the pattern and distribution are similar from the previous examination. There is no mass effect or midline shift. There is no abnormal parenchymal enhancement. Paranasal Sinuses and Mastoids: Visualized paranasal sinuses and mastoid air cells are unremarkable. MRA of head: The images are degraded by patient motion. Anterior circulation: There is expected flow signal in bilateral intracranial internal carotid arteries, bilateral carotid terminals, bilateral proximal anterior and middle cerebral arteries. Posterior circulation: The tiny fenestration previously demonstrated within the proximal basilar artery is less well visualized on this examination due to mild patient motion. Bilateral intracranial vertebral arteries, vertebrobasilar junction, basilar artery and proximal posterior cerebral arteries demonstrate expected flow signal. IMPRESSION: MRI Brain: 1. Redemonstration of nonspecific subcortical and periventricular white matter changes which may be seen with small vessel ischemic disease, demyelinating processes, vasculitis, among others. There is no evidence of acute ischemic injury. There is no enhancement suggestive of active areas of demyelination. 2. Focus of encephalomalacia in the right cerebellum, likely related to remote ischemic injury. MRA: No evidence of major vessel cutoff or significant stenosis on MRA head. Electronically signed by: DO Teagan CARLTON [facility] ([facility]3] NR MRI BRAIN W/WO CONTRASTon 02-25-2018 NR MRI BRAIN W/WO CONTRAST Patient Name: NATALIE GERBER STUDY: NR MRI BRAIN W/WO CONTRAST; NR MRA HEAD W/O C; 02/25/2018 8:07 pm INDICATION: stroke. MS workup. COMPARISON: Head CT February 24, 2018 and MRI of the brain October 07, 2016. ACCESSION NUMBER(S): [id number]; [id number] ORDERING CLINICIAN: FILIBERTO MICHEL TECHNIQUE: Axial T2, FLAIR, DWI, gradient echo T2 and T1 weighted images of brain were acquired. Post contrast T1 weighted images were acquired after administration of 20 mL MultiHance intravenous contrast administration. Volumetric FLAIR images were also acquired and multiplanar reformats were submitted for review. [id number] MRA of the head was performed. The images were reviewed as source images and maximum intensity projections. FINDINGS: Brain: CSF Spaces: The ventricles, sulci and basal cisterns are within normal limits. Parenchyma: There is no diffusion restriction abnormality to suggest acute infarct. There is again a focus of encephalomalacia in the right cerebellum. There are nonspecific hyperintensities on FLAIR and T2 weighted imaging in the subcortical and periventricular white matter. Overall, allowing for differences in slice positioning, partial volume averaging, and patient motion, the pattern and distribution are similar from the previous examination. There is no mass effect or midline shift. There is no abnormal parenchymal enhancement. Paranasal Sinuses and Mastoids: Visualized paranasal sinuses and mastoid air cells are unremarkable. MRA of head: The images are degraded by patient motion. Anterior circulation: There is expected flow signal in bilateral intracranial internal carotid arteries, bilateral carotid terminals, bilateral proximal anterior and middle cerebral arteries. Posterior circulation: The tiny fenestration previously demonstrated within the proximal basilar artery is less well visualized on this examination due to mild patient motion. Bilateral intracranial vertebral arteries, vertebrobasilar junction, basilar artery and proximal posterior cerebral arteries demonstrate expected flow signal. IMPRESSION: MRI Brain: 1. Redemonstration of nonspecific subcortical and periventricular white matter changes which may be seen with small vessel ischemic disease, demyelinating processes, vasculitis, among others. There is no evidence of acute ischemic injury. There is no enhancement suggestive of active areas of demyelination. 2. Focus of encephalomalacia in the right cerebellum, likely related to remote ischemic injury. MRA: No evidence of major vessel cutoff or significant stenosis on MRA head. Electronically signed by: VICKIE MILES, DO Normal [facility]3] Neurology Progress Noteon Protein mass [facility] [place] [facility] Patient: NATALIE GERBER [address] MR#: [id number] [place], [place] [address] : 1960 [address] : Dept: PDOC Loc: 9 [id number] Neurology Progress Note Service Dt: 02/25/18 Report#: [id number] Adm Dt: 02/24/18 Dis Dt: Neurology Progress Note - Patient Visit Reason Visit Reason: PARESTHESIA, DYSPNEA - Chief Complaint Chief Complaint: LUE and facial numbness - Subjective Narrative HPI/ROS: Reports that his symptoms are unchanged. Would like to have his imaging performed as an inpatient however he was unable to fit into the machine. - I O/Vital Signs I O/VS: Intake/Output/Wt 02/22/18 02/23/18 02/24/18 02/25/18 23:59 23:59 23:59 23:59 Intake Total 720 830 Balance 720 830 Weight 146.4 kg Intake: Oral 720 830 Other: Height 1.65 m Vital Signs (last 24 hrs) Temp Pulse Resp BP Pulse Ox 02/25/18 10:38 36.3 C L 69 18 121/71 98 02/25/18 10:00 61 02/25/18 06:00 36 C L 69 20 151/80 H 97 02/25/18 02:00 36 C L 67 20 111/68 96 02/24/18 21:57 69 09/25/18 21:44 35.5 C L 68 18 107/60 96 02/24/18 18:00 36.5 C 76 20 113/56 L 98 02/24/18 15:51 36.3 C L 71 18 98 02/24/18 15:00 78 18 124/64 96 - Objective Narrative Patient Exam: alert, oriented x3, speech fluent, EOMI, no facial asymmetry, no focal weakness. - Lab Diagnostic Data Diagrams: 02/25/18 07:10 02/25/18 07:10 Labs: Hematology (last 24 hrs) 02/25/18 02/24/18 07:10 11:35 WBC 6.4 6.8 RBC 3.77 L 3.91 L Hgb 10.5 L 10.8 L Hct 33.9 L 35.0 L MCV 89.9 89.5 MCH 27.9 27.6 MCHC 31.0 L 30.9 L RDW 14.0 13.9 Plt Count 187 193 MPV 9.6 9.3 Immature Gran % (Auto) 0.9 Neut % (Auto) 67 Lymph % (Auto) 22 L Hays % (Auto) 7 Eos % (Auto) 2 Baso % (Auto) 1 Nucleat RBC Rel Count 0.0 Immature Gran # (Auto) 0.1 Neut # (Auto) 4.3 Lymph # (Auto) 1.4 Hays # (Auto) 0.4 Eos # (Auto) 0.2 Baso # (Auto) 0.0 L Differential Method Manual Chemistry (last 24 hrs) 02/24/18 02/24/18 02/24/18 11:35 11:53 16:40 Sodium 139 Potassium 4.5 Chloride 106 Carbon Dioxide 29 Anion Gap 8.5 L BUN 15 Creatinine 0.75 Estim Creat Clear Calc Est GFR ( Amer) >60 Est GFR (Non-Af Amer) >60 POC Glucose 112 H Fasting Glucose 91 Hemoglobin A1c Calcium 8.6 Total Bilirubin AST ALT Alkaline Phosphatase Troponin I < 0.020 Total Protein Albumin Triglycerides Cholesterol LDL Cholesterol HDL Cholesterol Cholesterol/HDL Ratio Vitamin B12 361 TSH 1.77 Free T4 02/25/18 02/25/18 07:10 11:02 Sodium 140 Potassium 4.3 Chloride 106 Carbon Dioxide 27 Anion Gap 11.3 BUN 13 Creatinine 0.62 Estim Creat Clear Calc 91 L Est GFR ( Amer) >60 Est GFR (Non-Af Amer) >60 POC Glucose Fasting Glucose 105 H Hemoglobin A1c 6.1 Calcium 8.6 Total Bilirubin 0.4 AST 15 ALT 8 Alkaline Phosphatase 109 Troponin I Total Protein 5.8 L Albumin 3.3 L Triglycerides 266 Cholesterol 131 LDL Cholesterol 50.9 HDL Cholesterol 27.1 Cholesterol/HDL Ratio 4.83 Vitamin B12 TSH Free T4 0.8 - Medications Meds: Current Medications Acetaminophen (Tylenol) 650 mg PO Q4 PRN PRN Reason: Pain (mild)/Temp above 38.3 C Alprazolam (Xanax) 0.25 mg PO TID PRN PRN Reason: Anxiety Last Admin: 02/24/18 21:01 Dose: 0.25 mg Aspirin (Aspirin, "Baby" (Chewable)) 81 mg PO DAILY [facility] Last Admin: 02/25/18 10:39 Dose: 81 mg Carvedilol (Coreg) 6.25 mg PO DAILY [facility] Last Admin: 02/25/18 10:38 Dose: 6.25 mg Clopidogrel Bisulfate (Plavix) 75 mg PO DAILY [facility] Last Admin: 02/25/18 10:39 Dose: 75 mg Cyanocobalamin (Vitamin B-12) 1,000 mcg PO DAILY [facility] Last Admin: 02/25/18 10:38 Dose: 1,000 mcg Dextrose (Dextrose Syringe) 25 ml IV Q15M PRN PRN Reason: Hypoglycemia Dextrose (Dextrose Syringe) 50 ml IV Q15M PRN PRN Reason: Hypoglycemia Dextrose (Instant Glucose) 37.5 g PO Q15M PRN PRN Reason: Hypoglycemia Enoxaparin Sodium (Lovenox) 40 mg SC DAILY [facility] Last Admin: 02/25/18 10:39 Dose: 40 mg Furosemide (Lasix) 20 mg PO DAILY [facility] Last Admin: 02/25/18 10:38 Dose: 20 mg Gabapentin (Neurontin) 400 mg PO DAILY [facility] Last Admin: 02/25/18 10:45 Dose: 400 mg Glucagon (Glucagon) 1 mg IM Q15M PRN PRN Reason: Hypoglycemia Levothyroxine Sodium (Synthroid) 50 mcg PO QDSYNTH [facility] Last Admin: 02/25/18 05:47 Dose: 50 mcg Lisinopril (Zestril/Prinivil) 5 mg PO DAILY [facility] Last Admin: 02/25/18 10:39 Dose: 5 mg Melatonin (Melatonin) 3 mg PO QHS [facility] Last Admin: 02/24/18 21:01 Dose: 3 mg Methylphenidate HCl (Ritalin) 40 mg PO DAILY [facility] Last Admin: 02/25/18 10:40 Dose: 40 mg Nitroglycerin (Nitrostat) 400 mcg SL Q5M PRN PRN Reason: Chest Pain Oxycodone/Acetaminophen (Percocet) 2 tab PO Q6 PRN PRN Reason: Pain-moderate (4-6/10) Last Admin: 02/25/18 12:18 Dose: 2 tab Pantoprazole Sodium (Protonix) 40 mg PO DAILY [facility] Last Admin: 02/25/18 10:39 Dose: 40 mg Quetiapine Fumarate (Seroquel) 100 mg PO DAILY [facility] Last Admin: 02/25/18 10:38 Dose: 100 mg Senna/Docusate Sodium (Senokot-S) 1 tab PO DAILY [facility] Last Admin: 02/25/18 10:38 Dose: 1 tab Simvastatin (Zocor) 40 mg PO QHS [facility] Last Admin: 02/24/18 21:01 Dose: 40 mg Vitamin D (Vitamin D) 2,000 units.intl PO DAILY [facility] Last Admin: 02/25/18 10:39 Dose: 2,000 units.intl Allergies/Adv: Allergies Allergy/AdvReac Type Severity Reaction Status Date / Time ketorolac Allergy Severe Hives Verified 08/02/16 23:25 nalbuphine Allergy Severe Shortness Verified 08/02/16 23:25 of Breath nalbuphine HCl * Allergy Unknown Verified 10/08/16 21:16 [From [facility]] - Assessment/Plan (1) Paresthesia Status: Acute Plan: Mr. Gerber is a 57 year old man with multiple vascular risk factors including obesity, HTN, HLD who presented to the hospital with a 1 month history of left arm numbness followed by a 2 week history of left facial numbness and a few day history of episodes of sudden quick headaches and shortness of breath/lightheadedness with exertion. The slow progression of the symptoms is very atypical for stroke and I do not suspect a vascular etiology. The patient has had an extensive work up in the past with multiple hospital admission for previous symptoms (always on the left, typically following a "pop" in his head). The patient does feel this episode is different and the step alicea occurrence of the symptoms is different than previously described. There has been a high suspicion for conversion disorder in the past due to functional elements seen on his exam with negative imaging. However an evaluation for MS had previously been recommended however the patient had refused. Again there are function elements on his exam (spitting of vibration in the forehead, giveway weakness in the arm with direct muscle testing however no pronator drift and normal finger to nose). Given the prior recommendation will obtain the following to complete his work up. Recommendations: -MRI brain w/wo contrast -MRA head w/o contrast -MRI C spine w/wo contrast. Can hold off on the rest of the stroke work up for now. Continue aspirin and plavix. Will continue to follow. Thank you for the consult. 02/24/18 16:09 02/25/18 14:29 No significant change in the symptoms. Awaiting MRI to be performed - recommend for it to be performed as an inpatient if possible. Normal [facility] Vitamin B12on 02-25-2018 Cobalamin (Vitamin B12) mass conc 361 pg/mL Normal 211-911 [facility] Comment on above: Result Comment: Perf [facility] Site: [facility] [id number] [place] [address] Performed By: #### C BC, BMP, TROP, BNP, TSH ####[facility] [place] [address] B-type Natriuretic Peptideon 02-24-2018 Natriuretic peptide B mass conc (Bld) 35 pg/mL Normal 0-100 [facility] Comment on above: Result Comment: Refe rence Intervals:<100 pg/mL - Heart failure [id number] pg/mL - Intermediate probability of acute heartfailure exacerbation. Correlate with clinical context andpatient history.>=300 pg/mL - Heart failure likely. Correlate with clinicalcontext and patient history. Performed By: #### C BC, BMP, TROP, BNP, TSH ####[facility] [place], [place] [id number] Basic Metabolic Panel $$$on 02-24-2018 Anion gap 3 molar conc 8.5 mmol/L Low 10-20 [facility] Comment on above: Performed By: #### C BC, BMP, TROP, BNP, TSH ####[facility] [place] [address] Calcium mass conc 8.6 mg/dL Normal 8.6-10.3 [facility] Comment on above: Result Comment: Spring burns note new reference range as of September. Performed By: #### C BC, BMP, TROP, BNP, TSH ####[address] [address] Chloride molar conc 106 mmol/L Normal 98-107 [facility] Comment on above: Performed By: #### C BC, BMP, TROP, BNP, TSH ####[address] [address] CO2 molar conc 29 mmol/L Normal 21-32 [facility] Comment on above: Performed By: #### C BC, BMP, TROP, BNP, TSH ####[address] [address] Creatinine mass conc 0.75 mg/dL Normal 0.50-1.30 [facility] Comment on above: Result Comment: Spring burns note new reference range as of September. Performed By: #### C BC, BMP, TROP, BNP, TSH ####[facility] [place] [address] GFR () >60 Normal [facility] Comment on above: Performed By: #### C BC, BMP, TROP, BNP, TSH ####[address] [place] [address] GFR (Non ) >60 Normal [facility] Comment on above: Result Comment: eGFR Units of measure: mL/min/1.73 m 2 Performed By: #### C BC, BMP, TROP, BNP, TSH ####[facility] [place] [address] Glucose mass conc 91 mg/dL Normal 74-99 [facility] Comment on above: Performed By: #### C BC, BMP, TROP, BNP, TSH ####[facility] [place] [address] Potassium molar conc 4.5 mmol/L Normal 3.5-5.3 [facility] Comment on above: Performed By: #### C BC, BMP, TROP, BNP, TSH ####[address] [address] Sodium molar conc 139 mmol/L Normal 136-145 [facility] Comment on above: Performed By: #### C BC, BMP, TROP, BNP, TSH ####[address] [address] Urea nitrogen mass conc (Bld) 15 mg/dL Normal 6-23 [facility] Comment on above: Result Comment: Spring burns note new reference range as of September. Performed By: #### C BC, BMP, TROP, BNP, TSH ####[address] [address] Brain or Head without Contra ston 02-24-2018 Brain or Head without Contrast [facility] Patient: NATALIE GERBER [address] [facility] MR#: [id number] [place], [place] [address] : 1960 [address] Koko Whitt MD Dept: Diagnostic Imaging Loc: 1EDA DI REPORT Service Dt:02/24/18 Report#: [id number] Adm Dt: 02/24/18 Dis Dt: Comments: STUDY: CT Brain or Head without Contrast; 02/24/2018 11:30 am INDICATION: altered mental status. COMPARISON: 10/07/2016 ACCESSION NUMBER(S): [id number] ORDERING CLINICIAN: Koko Whitt TECHNIQUE: Noncontrast axial CT scan of head was performed. Angled reformats in brain and bone windows were generated. The images were reviewed in bone, brain, blood and soft tissue windows. FINDINGS: BRAIN PARENCHYMA: The alston-white matter differentiation is preserved. No masses or mass effect seen. Small area of encephalomalacia is seen in the right cerebellar hemisphere, which is unchanged most likely is related to remote infarct. HEMORRHAGE: There is no evidence for hemorrhage. VENTRICLES and EXTRA-AXIAL SPACES: The ventricles, sulci and cisterns are normal in size.. INTRACRANIAL VESSELS: Atherosclerotic calcification. EXTRACRANIAL SOFT TISSUES: Within normal limits. PARANASAL SINUSES/MASTOIDS: Within normal limits. CALVARIUM: No destructive lesion or depressed skull fracture. IMPRESSION: No CT evidence of acute hemorrhage or acute cortical infarct. 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 Dictated by: Luisa Arevalo Electronically Signed by: Luisa Arevalo 02/24/2018 11:49 AM Normal [facility] Chest Single Xray 1 viewon 0 02-24-2018 Chest Single Xray 1 view [facility] Patient: NATALIE GERBER [address] MR#: [id number] [place], [place] [address] : 1960 [address] Koko Whitt MD Dept: Diagnostic Imaging Loc: 1EDA DI REPORT Service Dt:02/24/18 Report#: [id number] Adm Dt: 02/24/18 Dis Dt: Comments: STUDY: CR Chest Single Xray 1 view; 02/24/2018 11:45 am INDICATION: Heart Failure. COMPARISON: 11/14/2016 ACCESSION NUMBER(S): [id number] ORDERING CLINICIAN: Koko Whitt FINDINGS: A single AP portable radiograph of the chest was obtained. The study is limited by the patient's large body habitus and portable x-ray technique. Multiple cardiac monitoring leads are seen over the chest. No focal infiltrate, pleural effusion or pneumothorax is identified. The cardiac silhouette is enlarged. IMPRESSION: No focal infiltrate or pneumothorax is identified. Dictated by: Chuck Arellano Electronically Signed by: Chuck Arellano 02/24/2018 12:52 PM Normal [facility] Complete Blood Count w/diff $$on 02-24-2018 Diff Type Manual Normal [facility] Comment on above: Performed By: #### C BC, BMP, TROP, BNP, TSH ####[address] [address] Erythrocyte distribution width Auto Ratio (RBC) 13.9 % Normal 11.5-14.5 [facility] Comment on above: Performed By: #### C BC, BMP, TROP, BNP, TSH ####[address] [address] Hematocrit Auto Volume Fraction (Bld) 35.0 % Low 39-50 [facility] Comment on above: Performed By: #### C BC, BMP, TROP, BNP, TSH ####[address] [address] Hemoglobin mass conc (Bld) 10.8 g/dL Low 13.0-17.3 [facility] Comment on above: Performed By: #### C BC, BMP, TROP, BNP, TSH ####[address] [address] MCH Auto Entitic mass (RBC) 30.9 g/dL Low 33-37 [facility] Comment on above: Performed By: #### C BC, BMP, TROP, BNP, TSH ####[address] [address] MCH Auto Entitic mass (RBC) 27.6 pg Normal 27-34 [facility] Comment on above: Performed By: #### C BC, BMP, TROP, BNP, TSH ####[address] [address] MCV Auto Entitic volume (RBC) 89.5 fL Normal 80-100 [facility] Comment on above: Performed By: #### C BC, BMP, TROP, BNP, TSH ####[address] [address] Platelet mean volume Auto Entitic volume (Bld) 9.3 fL Normal 7.4-10.4 [facility] Comment on above: Performed By: #### C BC, BMP, TROP, BNP, TSH ####[facility] [place] [address] Platelets Auto #/vol (Bld) 193 10 3/uL Normal 150-400 [facility] Comment on above: Performed By: #### C BC, BMP, TROP, BNP, TSH ####[facility] [place] [address] RBC Auto #/vol (Bld) 3.91 10 6/uL Low 4.5-6.0 [facility] Comment on above: Performed By: #### C BC, BMP, TROP, BNP, TSH ####[address] [address] WBC Auto #/vol (Bld) 6.8 10 3/uL Normal 4.0-11.0 [facility] Comment on above: Performed By: #### C BC, BMP, TROP, BNP, TSH ####[address] [address] Consultation Reporton 2017 Consultation Report [facility] Patient: NATALIE GERBER [address] [facility] MR#: [id number] [place], [place] [address] : 1960 [address]: Dept: PDOC Loc: 9W 934-1 Consultation Service Dt: 02/24/18 Report#: [id number] Adm Dt: 02/24/18 Dis Dt: Initial Physician Consultation - Consulting Specialty Consulting Specialty: Neurology - Consultation Date of Consultation: 02/24/18 Requesting Physician: Filiberto Michel Reason for Consult: Left sided numbness - PCP/Chief Complaint Primary Care Physician: Filiberto Michel Chief Complaint: LUE and facial numbness - History of Present Illness HPI: Mr. Gerber is a 57 year old man with a history of prior episodes of neurologic symptoms of unclear etiology who presented to the ER with multiple complaints. The patient reports that about one month ago he develop numbness in the entire left arm which is a pins and needle type sensation. Then about 2 weeks ago it started to move up his shoulder into his face, V2-3 area. Then he noticed significant itching in the lower part of the face. Then for the last few days every time he walks about 30 feet he will get a sudden sharp pain in his left side of his head followed by shortness of breath and lightheadedness. These symptoms only last seconds and then resolve without him having to sit down. However if he walks another 30 feet then it happens again. He is currently living in a rehab facility due to the need for a rotator cuff surgery on his right shoulder. Reviewed his extensive medical chart. Had has been admitted to the hospital at least once a year and often more than than over the last 5 years for recurrent episodes of left side numbness and/or weakness. These episodes have been described in a similar fashion with a sudden "pop in his head" followed by the left sided numbness/weakness. He has been given TPA twice. Everytime his work up has been negative for stroke. At one point an evaluation for MS with an MRI w/wo contrast was recommend and possiblity an LP however the patient refused. Of note, during these hospitalization there have been functional elements seen on his exam such as splitting of vibration in the forehead and inconsistent weakness. He has been kept on aspirin/plavix since no other etiology has been found. He currently denies any stressful event that could have triggered this current episode. - Past Medical History Neurological: CVA/Stroke, TIA/Transient Ischemic Attack(s) Other Neurological Hx: TPA 3 TIMES ADMINISTERED Other ENT/Eye Hx: wears glassess Cardiac: Angioplasty, Coronary Artery Disease/CAD, Cardiac Cath, CHF, Heart Attack ([place]), High Cholesterol, HTN Respiratory: Pulmonary Embolism/PE, Pneumonia Other Respiratory HX: PE in 1998 GI: Abdominal Surgery, Diverticulitis, Gall Bladder Disease, GERD Other GI HX: hernia repair , Male: Enlarged Prostate Musculoskeletal: Arthritis, Back surgery, Degenerative Disc Disease, Degenerative Joint Disease, Hip replacement, left, Osteoarthritis Other Musculoskelatal Hx: laminectomy, L5,L4,L3 FUSED TOGETHER Endocrine: Hypothyroidism Hematologic: Anemia, Clotting Problems Infectious/Other Disease: MRSA Other Infectious or Other Hx: MRSA-1999 - Social History Smoking Status: Never smoker Does Patient Dip or Chew Tobacco: No Alcohol Use: No Use of Substances/Recreational Drugs: No Comment: Lives in [facility] with his . 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 - Family Health History Father Family Member Hx: Stroke, Heart Disease Mother Family Member Hx: Stroke, Heart Disease Sister Family Member Hx: Heart Disease - Allergies Allergies/Adverse Reactions: Allergies ketorolac Allergy (Severe, Verified 08/02/16 23:25) Hives nalbuphine Allergy (Severe, Verified 08/02/16 23:25) Shortness of Breath nalbuphine HCl * [From [facility]] Allergy (Verified 10/08/16 21:16) Unknown - Medications Home Medications: Aspirin [Aspirin, "Baby" (CHEWABLE)] 81 mg PO DAILY 07/14/14 [History Last Taken 08/04/16 10:05 81mg] Carvedilol [Coreg] 6.25 mg PO DAILY 07/14/14 [History Last Taken 08/04/16 10:05 6.25mg] Clopidogrel Bisulfate [Plavix] 75 mg PO DAILY 07/14/14 [History Last Taken 08/04/16 10:05 75mg] Simvastatin [Zocor] 40 mg PO QHS 07/20/15 [History Last Taken 08/03/16 20:30 40mg] Esomeprazole Magnesium [Nexium] 40 mg PO DAILY 07/19/16 [History Last Taken Unknown] Lisinopril [Zestril/Prinivil] 5 mg PO DAILY 08/02/16 [History Last Taken 08/04/16 10:05 10mg] Furosemide 20 mg PO DAILY 11/14/16 [History Last Taken Unknown] Levothyroxine Sodium 50 mcg PO DAILY 11/14/16 [History Last Taken Unknown] Melatonin 3 mg PO QHS 11/14/16 [History Last Taken Unknown] Nitroglycerin 0.4 mg SL Q5M PRN 11/14/16 [History Last Taken Unknown] ALPRAZolam [Xanax] 0.25 mg PO TID PRN 02/24/18 [History Last Taken Unknown] Cholecalciferol (Vitamin D3) [Vitamin D3] 1 cap PO DAILY 02/24/18 [History Last Taken Unknown] Cyanocobalamin [Vitamin B-12] 1,000 mcg PO DAILY 02/24/18 [History Last Taken Unknown] Dextroamphetamine/Amphetamin e [Adderall 20 mg Tablet] 20 mg PO DAILY 02/24/18 [History Last Taken Unknown] Gabapentin 400 mg PO DAILY 02/24/18 [History Last Taken Unknown] Oxycodone HCl/Acetaminophen [Percocet 5-325 mg Tablet] 2 each PO Q6 PRN 02/24/18 [History Last Taken Unknown] QUEtiapine FUMARATE [SEROquel] 100 mg PO DAILY 02/24/18 [History Last Taken Unknown] Sennosides/Docusate Sodium [Senna Laxative Tablet] 1 each PO DAILY 02/24/18 [History Last Taken Unknown] Current Medications: Current Medications Acetaminophen (Tylenol) 650 mg PO Q4 PRN PRN Reason: Pain (mild)/Temp above 38.3 C Alprazolam (Xanax) 0.25 mg PO TID PRN PRN Reason: Anxiety Aspirin (Aspirin, "Baby" (Chewable)) 81 mg PO DAILY [facility] Carvedilol (Coreg) 6.25 mg PO DAILY [facility] Clopidogrel Bisulfate (Plavix) 75 mg PO DAILY [facility] Cyanocobalamin (Vitamin B-12) 1,000 mcg PO DAILY [facility] Dextrose (Dextrose Syringe) 25 ml IV Q15M PRN PRN Reason: Hypoglycemia Dextrose (Dextrose Syringe) 50 ml IV Q15M PRN PRN Reason: Hypoglycemia Dextrose (Instant Glucose) 37.5 g PO Q15M PRN PRN Reason: Hypoglycemia Enoxaparin Sodium (Lovenox) 40 mg SC DAILY [facility] Furosemide (Lasix) 20 mg PO DAILY [facility] Gabapentin (Neurontin) 400 mg PO DAILY [facility] Glucagon (Glucagon) 1 mg IM Q15M PRN PRN Reason: Hypoglycemia Sodium Chloride (Sodium Chloride 0.9%) 1,000 mls @ 30 mls/hr IV .[id number] [facility] Last Admin: 02/24/18 12:13 Dose: 30 mls/hr Insulin Human Regular (Humulin R (Bkc)) 0 units SC AC [facility] PRN Reason: Protocol Levothyroxine Sodium (Synthroid) 50 mcg PO QDSYNTH [facility] Lisinopril (Zestril/Prinivil) 5 mg PO DAILY [facility] Melatonin (Melatonin) 3 mg PO QHS [facility] Nitroglycerin (Nitrostat) 400 mcg SL Q5M PRN PRN Reason: Chest Pain Non-Formulary Medication (Dextroamphetamine/Amphetami ne [Adderall 20 Mg Tablet]) 20 mg PO DAILY [facility] Non-Formulary Medication (Esomeprazole Magnesium [Nexium]) 40 mg PO DAILY [facility] Ondansetron HCl (Zofran) 4 mg IV Q6 PRN PRN Reason: Nausea Oxycodone/Acetaminophen (Percocet) 2 tab PO Q6 PRN PRN Reason: Pain-moderate (4-6/10) Quetiapine Fumarate (Seroquel) 100 mg PO DAILY [facility] Senna/Docusate Sodium (Senokot-S) 1 tab PO DAILY [facility] Simvastatin (Zocor) 40 mg PO QHS [facility] Vitamin D (Vitamin D) 2,000 units.intl PO DAILY [facility] - Diagnostic Studies Lab Data: Labs (last 24 hrs) 02/24/18 02/24/18 02/24/18 12:25 11:35 11:35 WBC 6.8 RBC 3.91 L Hgb 10.8 L Hct 35.0 L MCV 89.5 MCH 27.6 MCHC 30.9 L RDW 13.9 Plt Count 193 MPV 9.3 Differential Method Manual Sodium 139 Potassium 4.5 Chloride 106 Carbon Dioxide 29 Anion Gap 8.5 L BUN 15 Creatinine 0.75 Estim Creat Clear Calc No Ht and/or Wt Est GFR ( Amer) >60 Est GFR (Non-Af Amer) >60 Fasting Glucose 91 Calcium 8.6 Troponin I < 0.020 B-Natriuretic Peptide 35 Urine Color Yellow Urine Clarity Clear Urine pH 5.0 Ur Specific [place] 1.010 Urine Protein Negative Urine Glucose (UA) Negative Urine Ketones Negative Urine Blood Negative Urine Nitrate Negative Urine Bilirubin Negative Urine Urobilinogen Normal Ur Leukocyte Esterase Negative Urine WBC 0 Hyaline Casts 0-5 Urine Mucus Rare Radiology: I personally reviewed the images of his prior MRI brain, MRA head/neck from 2017. His MRI brain does show subcortical white matter changes a few that are perpendicular to the ventricle and slightly atypical for his age and small white changes from small vessel ischemic disease. 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 - Subjective Narrative ROS: Review of Systems completed. - Review of Systems Constitutional: Reports: no symptoms Eyes: Reports: no symptoms ENT: Reports: no symptoms Respiratory: Reports: shortness of breath, SOB with exertion Cardiovascular: Reports: dyspnea on exertion, edema Gastrointestinal: Reports: no symptoms Genitourinary Exam M/F: Reports: no symptoms Musculoskeletal: Reports: no symptoms Integumentary: Reports: no symptoms Neurological: Reports: headache, numbness, paresthesias Psychiatric: Reports: no symptoms Endocrine: Reports: no symptoms reported Hematological/Lymphatic: Reports: no symptoms Allergic/Immunologic: Reports: no symptoms - I O/Vital Signs I O/VS: Intake/Output/Wt 02/21/18 02/22/18 02/23/18 02/24/18 23:59 23:59 23:59 23:59 Other: Height 1.65 m Vital Signs (last 24 hrs) Temp Pulse Resp BP Pulse Ox 02/24/18 15:00 78 18 124/64 96 02/24/18 14:06 74 18 133/61 96 02/24/18 12:31 72 20 130/68 95 02/24/18 11:05 36.8 C 72 18 159/90 H 100 Oxygen: Oxygen O2 Sat by Pulse Oximetry 96 Oxygen Delivery Method Room Air - Objective Narrative Patient Exam: On general examination, the patient appears well in no acute distress. Heart is regular, rate and rhythm. Lungs are clear to auscultation bilaterally. There is 2+ pitting edema in his legs bilaterally. Normal pedal pulses bilaterally. No carotid bruits. On neurologic examination, the mental status is unremarkable to informal testing. The history is related in quite good detail with no obvious deficit of attention, memory or language. Fund of knowledge is adequate. Orientation is intact to person, place and time. Spontaneous speech is fluent with no paraphasic or aphasic errors. On cranial nerve exam, the pupils are equal, round and reactive to light. Extraocular movements are full, without nystagmus. Visual herring are full to confrontation. The fundi are benign with normal sharp disc margins. There is no bulbofacial weakness or ptosis. The tongue is midline with no wasting or fasciculations. The palate elevates symmetrically. Facial sensations is decreased 50% to light touch and pinprick on the left compared to the right, however there is spitting of vibratory sensation in the forehead (left reported as less than right). Hearing is intact to finger rub bilaterally. Shoulder shrug is 5/5 bilaterally. Neck flexion and extension have full strength. Motor examination reveals normal tone and bulk in the upper and lower extremities bilaterally. There are no fasciculations. There is some give away weakness in the left arm otherwise there is full strength in the proximal and distal muscles of the upper and lower extremities bilaterally. There is no pronator drift seen. Deep tendon reflexes are 2/4 and symmetric throughout the upper and lower extremities bilaterally, including the ankle jerks. Plantar responses are flexor bilaterally. Fine finger movements and rapid alternating movements are done well in both hands. There is no tremor. On coordination testing, dqenqw-irdt-noewne and grsd-fpaq-glny testing are done well bilaterally. Sensory examination reveals decreased pinprick in the left arm compared to the right, normal in the legs. Gait is normal. NIH 1 - Assessment and Plan (1) Paresthesia Status: Acute Plan: Mr. Gerber is a 57 year old man with multiple vascular risk factors including obesity, HTN, HLD who presented to the hospital with a 1 month history of left arm numbness followed by a 2 week history of left facial numbness and a few day history of episodes of sudden quick headaches and shortness of breath/lightheadedness with exertion. The slow progression of the symptoms is very atypical for stroke and I do not suspect a vascular etiology. The patient has had an extensive work up in the past with multiple hospital admission for previous symptoms (always on the left, typically following a "pop" in his head). The patient does feel this episode is different and the step alicea occurrence of the symptoms is different than previously described. There has been a high suspicion for conversion disorder in the past due to functional elements seen on his exam with negative imaging. However an evaluation for MS had previously been recommended however the patient had refused. Again there are function elements on his exam (spitting of vibration in the forehead, giveway weakness in the arm with direct muscle testing however no pronator drift and normal finger to nose). Given the prior recommendation will obtain the following to complete his work up. Recommendations: -MRI brain w/wo contrast -MRA head w/o contrast -MRI C spine w/wo contrast. Can hold off on the rest of the stroke work up for now. Continue aspirin and plavix. Will continue to follow. Thank you for the consult. 02/24/18 16:09 Normal [facility] ED Visit Summaryon 8 ED Visit Summary [facility] Patient: NATALIE GERBER [address] [facility] MR#: [id number] [place] [id number] : 1960 Ord. : Dept: Emergency Department Loc: 1EDA ER Physician Documentation Service Dt: 02/24/18 Report#: [id number] Adm Dt: 02/24/18 Dis Dt: Patient Information - Chief Complaint Initial Complaint: HEADACHE, LIGHT HEADED Chief Complaint: Numbness, Face - Nursing Triage Note Nursing Triage Note: per patient he has had left arm numbness for the past 1.5 months with left facial numbness and itching over the last 2 days and lightheadedness when he walks more than 30 feet for the last day, history of a CVA - Allergies Allergies/Adverse Rxn: Allergies ketorolac Allergy (Severe, Verified 08/02/16 23:25) Hives nalbuphine Allergy (Severe, Verified 08/02/16 23:25) Shortness of Breath nalbuphine HCl * [From Nubain] Allergy (Verified 10/08/16 21:16) Unknown - Narrative HPI/ROS/Exam: 02/24/18 11:40 Patient is a 57-year-old male who's had numbness, tingling and pruritus of his left face for about one week. Last night he noticed some numbness and tingling his left arm as well. He has increasing shortness of breath and reports a 6 pound weight gain and increasing pedal edema. He has a history of congestive heart failure. He denies any chest pain fever chills or cough. He reports decreased exercise tolerance to get short of breath after walking only 40 feet for the past week. Patient reports a mild headache is present now since early this morning. The pain is in the center of his head without radiation. He denies fever chills or neck pain or rash. He's had no recent cough or cold symptoms. Patient has history of remote stroke. He is currently living at the [facility] with his . He is being treated for a right rotator cuff issue. He denies any recent change in medication or diet. - Review of Systems Constitutional: Positive: diaphoresis, fatigue EENTM: Positive: no symptoms reported, see HPI Respiratory: Positive: shortness of breath, SOB with exertion Cardiac (ROS): Positive: see HPI ABD/GI: Positive: no symptoms reported : Positive: no symptoms reported Musculoskeletal: Positive: see HPI Skin: Positive: see HPI Neurological: Positive: see HPI, numbness Endocrine: Positive: no symptoms reported Hematologic/Lymphatic: Positive: no symptoms reported. Negative: easy bleeding, easy bruising Psychiatric: Positive: no symptoms - Physical Exam General appearance: Positive: alert, in no apparent distress HEENT: Positive: head normal inspection, PERRL, EOMI, normal nose exam, mucous membranes moist Neck: Positive: Supple, +2 carotid pulse wo bruit, no thyromegaly, no lymphadenopathy, JVD Respiratory: Positive: normal lung sounds bilaterally, rales. Negative: rhonchi, tachypnea, wheezes Cardiovascular: Positive: regular rate, normal rhythm, normal heart sounds. Negative: +S3 GI/Abdominal: Positive: soft, nontender, distention. Negative: tenderness, guarding, rebound Genitourinary: Positive: deferred Extremities: Positive: normal inspection, full ROM, normal capillary refill, no edema Neurological: Positive: alert, oriented X3, other (Patient reports numbness to the left side of his face from the forehead down to the jaw. He also reports itching in the same area. He reports numbness and tingling which is new in the left arm from the shoulder to the fingers since last night. Patient reports the sensation is decreased when compared to the right side of his face and right arm. No strength deficit, no change in speech, no change in vision, no lack of coordination) Integumentary: Positive: warm, dry, intact Psychiatric: Positive: normal affect, normal mood, other (Normal mentation without memory loss) - Social Medical History Smoking Status: Never smoker Alcohol Use: No Drug Use: No Involved in Unsafe/Hurtful Relationship: No Is Patient Being Hurt at Home or Feeling Unsafe: No Neurological Hx: CVA/Stroke, TIA/Transient Ischemic Attack(s) Other Neuro Hx: TPA 3 TIMES ADMINISTERED Cardiac Hx: Angioplasty, Coronary Artery Disease/CAD, Cardiac Cath, CHF, Heart Attack (OK), High Cholesterol, HTN Hx Heart Failure? How Many Times?: Yes (1 hospitalization this year) Respiratory Hx: Pulmonary Embolism/PE, Pneumonia Other Respiratory Hx: PE in 1998 GI Hx: Abdominal Surgery, Diverticulitis, Gall Bladder Disease, GERD Other GI Hx: hernia repair , Male Hx: Enlarged Prostate Musculoskeletal Hx: Arthritis, Back surgery, Degenerative Disc Disease, Degenerative Joint Disease, Hip replacement, left, Osteoarthritis Other Musculoskelatal Hx: laminectomy, L5,L4,L3 FUSED TOGETHER Endocrine: Hypothyroidism Hematologic Hx: Anemia, Clotting Problems Infectious/Other Disease Hx: MRSA Other Infectious Disease or Other Disease Hx: MRSA-1999 Psych Hx: Depression - Family History Father Family Hx: Stroke, Heart Disease Mother Family Hx: Stroke, Heart Disease Sister Family Hx: Heart Disease - Vital Signs Vitals: Vital Signs Temp Pulse Resp BP Pulse Ox 02/24/18 11:05 36.8 C 72 18 159/90 H 100 - MDM/Admission Progress Note MDM Note: 02/24/18 14:29 A stroke alert was not called. Patient has been symptomatic for more than 18 hours. His stroke score is 0. I've consulted Dr. oliverio bennett and arranged for observation care the further evaluate the causes paresthesias and dyspnea. - Critical Care Time Total Critical Care Time (min): 0 - Radiology Data Radiology results: report reviewed, image reviewed Interpreted by Me: Yes Radiology Impressions: 02/24/18 13:03 CT head IMPRESSION: 1. No CT evidence of acute hemorrhage or acute cortical infarct. 2. Probable remote right cerebellar infarct. Dictated by: Luisa Arevalo Electronically Signed by: Luisa Arevalo 02/24/2018 11:49 AM CXR IMPRESSION: 1. No focal infiltrate or pneumothorax is identified. Dictated by: Chuck Arellano Electronically Signed by: Chuck Arellano 02/24/2018 12:52 PM - EKG Information EKG: EKG Interpreted by Me (SR at 71 bpm, nl axis, nl intervals, no acute ST changes.) ED Physician Disposition - Clinical Impression Clinical Impression: Paresthesia, Dyspnea, Morbid obesity - Disposition Disposition: ADMIT THROUGH THE ED - Discharge Referrals: Filiberto Michel MD [Primary Care Provider] - Normal [facility] Glucose, Point of Careon Glucose mass conc 112 mg/dL High 80-110 [facility] Comment on above: Performed By: #### C BC, BMP, TROP, BNP, TSH ####[facility] [place] [address] History AND Physicalon 02-24 History AND Physical [facility] Patient: NATALIE GERBER [address] MR#: [id number] [place], [place] [address] : 1960 Ord[address] [place]: Dept: PDOC Loc: 9W 934-1 History Physical Service Dt: 02/24/18 Report#: [id number] Adm Dt: 02/24/18 Dis Dt: History and Physical - Admit Order Information Status/Length of Stay: Full Admit, Anticipated Length of Stay >2 Midnights Location: Telemetry Floor - Date of Service Date of Service: 02/24/18 - PCP/Chief Complaint Primary Care Physician: Filiberto Michel Chief Complaint: LUE and facial numbness - Patient Information HPI/ROS/Exam: 57 yo obese male ecf dweller admitted through the ed for left sided facial and left arm parasthesias of [id number] etiology. Symptoms worse today. Also recently has had dyspnea and light headedness associated with ambulation in the ecf. Has many co-morbidities, and is morbidly obese Cardiac: Angioplasty, Coronary Artery Disease/CAD, Cardiac Cath, CHF, Heart Attack (OK), High Cholesterol, HTN Neurological: CVA/Stroke, TIA/Transient Ischemic Attack(s) Other Neurological Hx: TPA 3 TIMES ADMINISTERED ENT/Eye: Eye problem Other ENT/Eye Hx: wears glassess Respiratory: Pulmonary Embolism/PE, Pneumonia Other Respiratory HX: PE in 1998 GI: Abdominal Surgery, Diverticulitis, Gall Bladder Disease, GERD Other GI HX: hernia repair , Male: Enlarged Prostate Musculoskeletal: Arthritis, Back surgery, Degenerative Disc Disease, Degenerative Joint Disease, Hip replacement, left, Osteoarthritis Other Musculoskelatal Hx: laminectomy, L5,L4,L3 FUSED TOGETHER Endocrine: Hypothyroidism Hematologic: Anemia, Clotting Problems Infectious/Other Disease: MRSA Other Infectious or Other Hx: MRSA-1999 - Social History Smoking Status: Never smoker Does Patient Dip or Chew Tobacco: No Alcohol Use: No Use of Substances/Recreational Drugs: No Comment: Lives in [facility] with his . 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 - Family Health History Father Family Member Hx: Stroke, Heart Disease Mother Family Member Hx: Stroke, Heart Disease Sister Family Member Hx: Heart Disease - Allergies Allergies/Adverse Reactions: Allergies ketorolac Allergy (Severe, Verified 08/02/16 23:25) Hives nalbuphine Allergy (Severe, Verified 08/02/16 23:25) Shortness of Breath nalbuphine HCl * [From Nubain] Allergy (Verified 10/08/16 21:16) Unknown - Medications Home Medications: Aspirin [Aspirin, "Baby" (CHEWABLE)] 81 mg PO DAILY 07/14/14 [History Last Taken 08/04/16 10:05 81mg] Carvedilol [Coreg] 6.25 mg PO DAILY 07/14/14 [History Last Taken 08/04/16 10:05 6.25mg] Clopidogrel Bisulfate [Plavix] 75 mg PO DAILY 07/14/14 [History Last Taken 08/04/16 10:05 75mg] Simvastatin [Zocor] 40 mg PO QHS 07/20/15 [History Last Taken 08/03/16 20:30 40mg] Esomeprazole Magnesium [Nexium] 40 mg PO DAILY 07/19/16 [History Last Taken Unknown] Lisinopril [Zestril/Prinivil] 5 mg PO DAILY 08/02/16 [History Last Taken 08/04/16 10:05 10mg] Furosemide 20 mg PO DAILY 11/14/16 [History Last Taken Unknown] Levothyroxine Sodium 50 mcg PO DAILY 11/14/16 [History Last Taken Unknown] Melatonin 3 mg PO QHS 11/14/16 [History Last Taken Unknown] Nitroglycerin 0.4 mg SL Q5M PRN 11/14/16 [History Last Taken Unknown] ALPRAZolam [Xanax] 0.25 mg PO TID PRN 02/24/18 [History Last Taken Unknown] Cholecalciferol (Vitamin D3) [Vitamin D3] 1 cap PO DAILY 02/24/18 [History Last Taken Unknown] Cyanocobalamin [Vitamin B-12] 1,000 mcg PO DAILY 02/24/18 [History Last Taken Unknown] Dextroamphetamine/Amphetamin e [Adderall 20 mg Tablet] 20 mg PO DAILY 02/24/18 [History Last Taken Unknown] Gabapentin 400 mg PO DAILY 02/24/18 [History Last Taken Unknown] Oxycodone HCl/Acetaminophen [Percocet 5-325 mg Tablet] 2 each PO Q6 PRN 02/24/18 [History Last Taken Unknown] QUEtiapine FUMARATE [SEROquel] 100 mg PO DAILY 02/24/18 [History Last Taken Unknown] Sennosides/Docusate Sodium [Senna Laxative Tablet] 1 each PO DAILY 02/24/18 [History Last Taken Unknown] - Diagnostic Studies Lab Data: Labs (last 24 hrs) 02/24/18 02/24/18 02/24/18 12:25 11:35 11:35 WBC 6.8 RBC 3.91 L Hgb 10.8 L Hct 35.0 L MCV 89.5 MCH 27.6 MCHC 30.9 L RDW 13.9 Plt Count 193 MPV 9.3 Differential Method Manual Sodium 139 Potassium 4.5 Chloride 106 Carbon Dioxide 29 Anion Gap 8.5 L BUN 15 Creatinine 0.75 Estim Creat Clear Calc No Ht and/or Wt Est GFR ( Amer) >60 Est GFR (Non-Af Amer) >60 Fasting Glucose 91 Calcium 8.6 Troponin I < 0.020 B-Natriuretic Peptide 35 TSH 1.77 Urine Color Yellow Urine Clarity Clear Urine pH 5.0 Ur Specific [place] 1.010 Urine Protein Negative Urine Glucose (UA) Negative Urine Ketones Negative Urine Blood Negative Urine Nitrate Negative Urine Bilirubin Negative Urine Urobilinogen Normal Ur Leukocyte Esterase Negative Urine WBC 0 Hyaline Casts 0-5 Urine Mucus Rare - Subjective Narrative ROS: Review of Systems completed. - Review of Systems All systems: 10 point review of systems negative except for what is stated in HPI - Vital Signs Vitals: Vital Signs (last response) Temperature 36.3 C L 02/24/18 15:51 Pulse/Heart Rate 71 02/24/18 15:51 Respiratory Rate 18 02/24/18 15:51 Blood Pressure 124/64 02/24/18 15:00 O2 Sat by Pulse Oximetry 98 02/24/18 15:51 - Physical Exam Constitutional: Positive: alert, anxious, obese HEENT: Positive: head normal inspection Neck: Positive: Supple Adenopathy: Positive: No Regional Adenopathy Respiratory: Positive: normal lung sounds bilaterally Cardiovascular: Positive: regular rate, normal rhythm, normal heart sounds GI/Abdominal: Positive: soft, nontender, normal bowel sounds : Positive: deferred Extremities: Positive: negative jordan's sign bilaterally, leg edema Neurological: Positive: alert, oriented X3 Integumentary: Positive: no rash Psychiatric: Positive: anxious - Assessment and Plan (1) Facial paresthesia Status: Acute (2) Arm paresthesia, left Status: Acute (3) DVT prophylaxis Status: Acute (4) Dyspnea Status: Acute (5) Morbid obesity Status: Acute (6) Diabetes Status: Chronic Qualifiers: Diabetes mellitus type: type 2 Diabetes mellitus prison insulin use: without 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 (7) CHF exacerbation Status: Suspected Qualifiers: Heart failure type: unspecified Qualified Code(s): I50.9 - Heart failure, unspecified (8) Chronic back pain Status: Chronic Qualifiers: Back pain location: back pain in unspecified location Back pain laterality: midline Qualified Code(s): M54.9 - Dorsalgia, unspecified (9) GERD (gastroesophageal reflux disease) Status: Chronic Qualifiers: Esophagitis presence: esophagitis presence not specified Qualified Code(s): K21.9 - Gastro-esophageal reflux disease without esophagitis (10) HLD (hyperlipidemia) Status: Chronic Qualifiers: Hyperlipidemia type: unspecified Qualified Code(s): E78.5 - Hyperlipidemia, unspecified (11) Hypothyroidism Status: Chronic Qualifiers: Hypothyroidism type: acquired Qualified Code(s): E03.9 - Hypothyroidism, unspecified - Comments Impression Comments: 02/24/18 16:38 Parasthesias, etiology uncertain. Many co-morbidities. See orders for 4rx plan. - Time Spent With Patient Time With Patient: 62 Review and update is required if H P is greater than twenty-four hours. The patient was examined, the H P was reviewed. __ No Changes __ Changes noted below: Date/Time Attending Physician Normal [facility] History AND Physical [facility] Patient: NATALIE GERBER [address] [facility] MR#: [id number] [place], [place] [address] : 1960 Ord[address] [place]: Dept: PDOC Loc: 9 934-1 History Physical Service Dt: 02/24/18 Report#: [id number] Adm Dt: 02/24/18 Dis Dt: History and Physical - Admit Order Information Status/Length of Stay: Observation <2 Midnights, Place Pt in Routine Location: Telemetry Floor - Date of Service Date of Service: 02/24/18 (0786) - PCP/Chief Complaint Primary Care Physician: Filiberto Michel Chief Complaint: LUE and facial numbness - Patient Information HPI/ROS/Exam: This is a 57-year-old male with a past medical history of hypertension, hyperlipidemia, CAD with OK and angioplasty, CHF, CVA, PE, and hypothyroidism who presents today with left-sided numbness. Patient reports that over the past month he is noted numbness and tingling in his left arm. He reports approximately 2 weeks ago been numbness and tingling started to affect his face and he developed facial itching. Then, over the last 2 days, the patient has developed headache and lightheadedness after walking approximately 30-40 feet. He reports the headache is located at the top of his head to the left side and is 4 out of 10 when it comes on. He reports the headache and light headedness lasts for one minute, then it passes, then he is able to ambulate another 30-40 feet when it happens again. He reports the headache and lightheadedness did not happen at rest. He denies any associated vision changes, unsteadiness, speech difficulties, or weakness. He notes that his chronic shortness of breath with exertion seems to be worse recently and that over the past month he has had increasing bilateral lower extremity edema. He denies any associated chest pain, diaphoresis, or nausea. He reports there has been no change in his chronic back pain. He reports a healthy appetite. He reports he has been voiding and defecating per his norm. He denies any cough or cold symptoms. He denies any medication changes. He reports he has a history of a stroke that he needed life flighted to [facility] for and he received TPA. He denies having a neurologist. He reports he saw commercial decorator in [place], however since he has moved to [facility], he would like to see a new commercial decorator. In the ED lab work, EKG, chest x-ray, and CT head/orbits was performed. Labs revealed chronic anemia with red blood cell count 3.91, hemoglobin 10.8, and hematocrit 35, chemistry essentially negative, urinalysis negative. EKG revealed sinus rhythm, rate 71, nonspecific T-wave changes in lead one and aVL. Chest x-ray and CT head/orbits were negative for any acute process. Patient was given Percocet and IV fluids. He reports he took his aspirin this morning. He is sitting up in bed in no distress. Patient will be admitted to Dr. Michel, who will be following with his care. I was asked to do the initial orders and history and physical exam. Consults have been placed to cardiology and neurology. Cardiac: Angioplasty, Coronary Artery Disease/CAD, Cardiac Cath, CHF, Heart Attack (OK), High Cholesterol, HTN Neurological: CVA/Stroke, TIA/Transient Ischemic Attack(s) Other Neurological Hx: TPA 3 TIMES ADMINISTERED Other ENT/Eye Hx: wears glassess Respiratory: Pulmonary Embolism/PE, Pneumonia Other Respiratory HX: PE in 1998 GI: Abdominal Surgery, Diverticulitis, Gall Bladder Disease, GERD Other GI HX: hernia repair , Male: Enlarged Prostate Musculoskeletal: Arthritis, Back surgery, Degenerative Disc Disease, Degenerative Joint Disease, Hip replacement, left, Osteoarthritis Other Musculoskelatal Hx: laminectomy, L5,L4,L3 FUSED TOGETHER Endocrine: Hypothyroidism Hematologic: Anemia, Clotting Problems Infectious/Other Disease: MRSA Other Infectious or Other Hx: MRSA-1999 - Social History Smoking Status: Never smoker Does Patient Dip or Chew Tobacco: No Alcohol Use: No Use of Substances/Recreational Drugs: No Comment: Lives in [facility] with his . 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 - Family Health History Father Family Member Hx: Stroke, Heart Disease Mother Family Member Hx: Stroke, Heart Disease Sister Family Member Hx: Heart Disease - Allergies Allergies/Adverse Reactions: Allergies ketorolac Allergy (Severe, Verified 08/02/16 23:25) Hives nalbuphine Allergy (Severe, Verified 08/02/16 23:25) Shortness of Breath nalbuphine HCl * [From Nubain] Allergy (Verified 10/08/16 21:16) Unknown - Medications Home Medications: Aspirin [Aspirin, "Baby" (CHEWABLE)] 81 mg PO DAILY 07/14/14 [History Last Taken 08/04/16 10:05 81mg] Carvedilol [Coreg] 6.25 mg PO DAILY 07/14/14 [History Last Taken 08/04/16 10:05 6.25mg] Clopidogrel Bisulfate [Plavix] 75 mg PO DAILY 07/14/14 [History Last Taken 08/04/16 10:05 75mg] Simvastatin [Zocor] 40 mg PO QHS 07/20/15 [History Last Taken 08/03/16 20:30 40mg] Esomeprazole Magnesium [Nexium] 40 mg PO DAILY 07/19/16 [History Last Taken Unknown] Lisinopril [Zestril/Prinivil] 5 mg PO DAILY 08/02/16 [History Last Taken 08/04/16 10:05 10mg] Furosemide 20 mg PO DAILY 11/14/16 [History Last Taken Unknown] Levothyroxine Sodium 50 mcg PO DAILY 11/14/16 [History Last Taken Unknown] Melatonin 3 mg PO QHS 11/14/16 [History Last Taken Unknown] Nitroglycerin 0.4 mg SL Q5M PRN 11/14/16 [History Last Taken Unknown] ALPRAZolam [Xanax] 0.25 mg PO TID PRN 02/24/18 [History Last Taken Unknown] Cholecalciferol (Vitamin D3) [Vitamin D3] 1 cap PO DAILY 02/24/18 [History Last Taken Unknown] Cyanocobalamin [Vitamin B-12] 1,000 mcg PO DAILY 02/24/18 [History Last Taken Unknown] Dextroamphetamine/Amphetamin e [Adderall 20 mg Tablet] 20 mg PO DAILY 02/24/18 [History Last Taken Unknown] Gabapentin 400 mg PO DAILY 02/24/18 [History Last Taken Unknown] Oxycodone HCl/Acetaminophen [Percocet 5-325 mg Tablet] 2 each PO Q6 PRN 02/24/18 [History Last Taken Unknown] QUEtiapine FUMARATE [SEROquel] 100 mg PO DAILY 02/24/18 [History Last Taken Unknown] Sennosides/Docusate Sodium [Senna Laxative Tablet] 1 each PO DAILY 02/24/18 [History Last Taken Unknown] - Diagnostic Studies Lab Data: Labs (last 24 hrs) 02/24/18 02/24/18 02/24/18 12:25 11:35 11:35 WBC 6.8 RBC 3.91 L Hgb 10.8 L Hct 35.0 L MCV 89.5 MCH 27.6 MCHC 30.9 L RDW 13.9 Plt Count 193 MPV 9.3 Differential Method Manual Sodium 139 Potassium 4.5 Chloride 106 Carbon Dioxide 29 Anion Gap 8.5 L BUN 15 Creatinine 0.75 Estim Creat Clear Calc No Ht and/or Wt Est GFR ( Amer) >60 Est GFR (Non-Af Amer) >60 Fasting Glucose 91 Calcium 8.6 Troponin I < 0.020 B-Natriuretic Peptide 35 Urine Color Yellow Urine Clarity Clear Urine pH 5.0 Ur Specific [place] 1.010 Urine Protein Negative Urine Glucose (UA) Negative Urine Ketones Negative Urine Blood Negative Urine Nitrate Negative Urine Bilirubin Negative Urine Urobilinogen Normal Ur Leukocyte Esterase Negative Urine WBC 0 Hyaline Casts 0-5 Urine Mucus Rare EKG: EKG revealed sinus rhythm, rate 71, nonspecific T-wave changes in lead one and aVL. Radiology: CT head/orbits, per radiology impression: No CT evidence of acute hemorrhage or acute cortical infarct. Probable remote right cerebellar and heart. Chest x-ray, per radiology impression: No focal infiltrate or pneumothorax is identified. - Subjective Narrative ROS: Review of Systems completed. - Review of Systems All systems: 10 point review of systems negative except for what is stated in HPI - Vital Signs Vitals: Vital Signs (last response) Temperature 36.8 C 02/24/18 11:05 Pulse/Heart Rate 74 02/24/18 14:06 Respiratory Rate 18 02/24/18 14:06 Blood Pressure 133/61 02/24/18 14:06 O2 Sat by Pulse Oximetry 96 02/24/18 14:06 - Physical Exam Constitutional: Positive: alert, in no apparent distress, obese HEENT: Positive: head normal inspection, EOMI, mucous membranes moist Neck: Positive: no bruit Respiratory: Positive: rales (LLL) Cardiovascular: Positive: regular rate, normal rhythm, normal heart sounds GI/Abdominal: Positive: soft, nontender, nondistended, hypoactive bowel sounds : Positive: deferred Extremities: Positive: no cellulitis, bilateral pulses positive, leg edema (+2 pitting ble), decreased strength (L hand grasp) Neurological: Positive: alert, oriented X3. Negative: right hemiplegia Integumentary: Positive: warm, dry, normal color, rash (small, left cheeck), no pallor or jaundice. Negative: cyanosis, diaphoresis, erythema Psychiatric: Positive: normal affect, normal mood - Assessment and Plan (1) CVA (cerebral vascular accident) Status: Suspected Qualifiers: CVA mechanism: unspecified Qualified Code(s): I63.9 - Cerebral infarction, unspecified Plan: admit to tele obs neuro consult, appreciate recs neuro checks MRI/MRA brain/head echo carotid lipids HgbA1c continue home asa and plavix PT/OT/SS referrals (2) CHF exacerbation Status: Suspected Qualifiers: Heart failure type: unspecified Qualified Code(s): I50.9 - Heart failure, unspecified Plan: appreciate cards recs continue home lasix echo (3) DVT prophylaxis Status: Acute Plan: early and aggressive mobilization scds lovenox NIH Stroke Scale - NIHSS Assessment Time Time Performed: 14:30 - NIH Stroke Scale Level of Consciousness: 0- Alert, Keenly Responsive Ask Month and Patient Age- Must Be Exactly Right: 0- Answers Both Correctly Ask Pt to Open/Close Eyes then Printing Assistant/Release Non-paretic Hand: 0- Performs Both Tasks Correctly Best Gaze- Only Horizontal Movements Tested: 0- Normal Visual Herring Tested by Confrontation: 0- No Visual Loss Facial Palsy- Ask Pt. to Smile Close Eyes/Grimace Symmetry: 0- Normal Symmetrical Movement Rt Arm Motor- Extend Rt Arm Palm Down: 0- No Drift- Holds for Full 10 Seconds Lt Arm Motor- Extend Lt Arm Palm Down: 0- No Drift- Holds for Full 10 Seconds Rt Leg Motor- Extend Rt Leg and Flex at Hip to 30 Degrees: 0- No Drift- Holds for Full 5 Seconds Lt Leg Motor- Extend Lt Leg and Flex at Hip to 30 Degrees: 0- No Drift- Holds for Full 5 Seconds Limb Ataxia-Finger/Nose Heel/Carty Done on Both Sides: 0- Absent Sensory to Pinprick: 1- Pinprick Less Sharp/Dull on Affected Side Best Language-Using Pictures, Naming Items, Reading Sentence: 0- No Aphasia Dysarthia- If not Previously Present, Have Patient Read: 0- Normal Extinction/Inattention: 0- No Abnormality - Total Score NIH Stroke Scale Total Score: 1 Review and update is required if H P is greater than twenty-four hours. The patient was examined, the H P was reviewed. __ No Changes __ Changes noted below: Date/Time Attending Physician [facility] Protime INRon 02-24-2018 INR Coag RelTime (PPP) 0.9 {INR} Normal 0.9-1.1 [facility] [place] Comment on above: Result Comment: Spring burns note new reference range OF 07/01/2017 Performed By: #### P TINR, UR ####[address] [address] Protein mass conc 10.6 sec Normal 9.8-12.7 [facility] [place] Comment on above: Result Comment: Spring burns note new reference range OF 07/01/2017 Performed By: #### P TINR, UR ####[address] [address] Thyroid Stimulating Hormoneo n 02-24-2018 Thyrotropin Qn 1.77 m[IU]/L Normal 0.44-3.98 [facility] [place] Comment on above: Performed By: #### C BC, BMP, TROP, BNP, TSH ####[address] [address] Thyrotropin Qn Normal 0.358-3.74 [facility] [place] Comment on above: Order Comment: Added by laboratory to previous specimen. AT [id number] on to today's blood, if available? Y Performed By: #### C BC, BMP, TROP, BNP, TSH ####[address] [address] Troponin Ion 02-24-2018 Troponin I.cardiac mass conc ng/mL Normal 0.00-0.040 [facility] [place] Comment on above: Performed By: #### C BC, BMP, TROP, BNP, TSH ####[address] [address] Urinalysison 02-24-2018 Bilirubin, Urine Negative Normal Negative [facility] [place] Comment on above: Performed By: #### P TINR, UR ####[address] [address] Clarity Nom (U) Clear Normal [facility] [place] Comment on above: Performed By: #### P TINR, UR ####[address] [address] Color Nom (U) Yellow Normal [facility] [place] Comment on above: Performed By: #### P TINR, UR ####[address] [address] Glucose Ql (U) Negative Normal Negative [facility] [place] Comment on above: Performed By: #### P TINR, UR ####[address] [address] Hemoglobin Test strip Ql (U) Negative Normal Negative [facility] [place] Comment on above: Performed By: #### P TINR, UR ####[address] [address] Hyaline Casts, Urine 0-5 Normal [facility] Comment on above: Performed By: #### P TINR, UR ####[address] [address] Ketones Ql (U) Negative Normal Negative [facility] [place] Comment on above: Performed By: #### P TINR, UR ####[address] [address] Leukocyte esterase Test strip Ql (U) Negative Normal Negative [facility] [place] Comment on above: Performed By: #### P TINR, UR ####[address] [address] Mucus, Urine Rare Normal [facility] [place] Comment on above: Performed By: #### P TINR, UR ####[address] [address] Nitrates, Urine Negative Normal Negative [facility] [place] Comment on above: Performed By: #### P TINR, UR ####[address] [address] pH Test strip (U) 5.0 [pH] Normal 5.0-9.0 [facility] [place] Comment on above: Performed By: #### P TINR, UR ####[facility] [place] [place] [address] Protein, Urine Negative Normal Negative [facility] [place] Comment on above: Performed By: #### P TINR, UR ####[facility] [place] [place] [address] Specific [place], Urine 1.010 Normal 1.000-1.03 0 [facility] [place] Comment on above: Performed By: #### P TINR, UR ####[facility] [place] [place] [address] Urobilinogen, Urine Normal Normal <2.0 [facility] [place] Comment on above: Performed By: #### P TINR, UR ####[facility] [place] [place] [address] WBC, Urine 0 /HPF Normal 0-2 [facility] [place] Comment on above: Performed By: #### P TINR, UR ####[facility] [place] [place] [address] Vital Signs Date Time Vital Sign Value Performing Clinician Facility 01-17-2023 08:50-0400 Body height 165.1 cm [facility] Work Phone: [facility] 01-17-2023 08:50-0400 Body weight 134.26 kg [facility] Work Phone: [facility] 01-17-2023 08:50-0400 Respiratory rate 16 /min [facility] Work Phone: [facility] 01-31-2020 11:33-0400 Body Temperature 96.01 [degF] [facility], [place] 01-31-2020 11:33-0400 BP Diastolic 70 mm[Hg] [facility] , [place] 01-31-2020 11:33-0400 BP Systolic 128 mm[Hg] [facility] , [place] 01-31-2020 11:33-0400 Pulse (Heart Rate) 65 /min [facility] [place] 01-31-2020 11:33-0400 Pulse Oximetry 99 % [facility] [place] 01-31-2020 11:33-0400 Respiratory Rate 17 /min Adrian Bird [facility], [place] 01-27-2020 02:07-0400 BMI (Body Mass Index) 54.78 kg/m2 Adrian Bird [facility], [place] 01-27-2020 02:07-0400 Body weight 149.32 kg [facility] , [place] 01-27-2020 02:07-0400 Height 165.1 cm [facility] , [place] 06-24-2019 07:27-0500 Body temperature 96.6 [degF] [facility] Work Phone: 06-24-2019 07:27-0500 Diastolic blood pressure 76 mm[Hg] Sonia Sweeney MD Work Phone: [facility] Work Phone: 06-24-2019 07:27-0500 Heart rate 73 /min Sonia Sweeney MD Work Phone: [facility] Work Phone: 06-24-2019 07:27-0500 Respiratory rate 20 /min Sonia Sweeney MD Work Phone: [facility] Work Phone: 06-24-2019 07:27-0500 SaO2% (BldA) [Mass fraction] 96 % Sonia Sweeney MD Work Phone: [facility] Work Phone: 06-24-2019 07:27-0500 Systolic blood pressure 147 mm[Hg] Sonai Sweeney MD Work Phone: [facility] Work Phone: 06-17-2019 22:22-0500 Body mass index (BMI) [Ratio] 54.2 kg/m2 Sonia Sweeney MD Work Phone: [facility] Work Phone: 06-17-2019 22:22-0500 Body weight 147.74 kg Sonia Sweeney MD Work Phone: [facility] Work Phone: 06-17-2019 19:15-0500 Body height 165.1 cm S[facility] Sweeney MD [facility] Work Phone: 05-08-2019 11:43-0500 Body Temperature 97.7 [degF] [place] 05-08-2019 11:43-0500 BP Diastolic 50 mm[Hg] [place], [place] 05-08-2019 11:43-0500 BP Systolic 120 mm[Hg] [place] 05-08-2019 11:43-0500 Pulse (Heart Rate) 81 /min [place], [place] 05-08-2019 11:43-0500 Pulse Oximetry 95 % [place] 05-08-2019 11:43-0500 Respiratory Rate 20 /min [place] 05-07-2019 04:49-0500 BMI (Body Mass Index) 52.35 kg/m2 [place] 05-07-2019 04:49-0500 Body weight 142.7 kg [place] 05-06-2019 20:21-0500 Height 165.1 cm [place] 03-25-2019 19:31-0400 Body Temperature 96.91 [degF] [facility] 03-25-2019 19:31-0400 BP Diastolic 91 mm[Hg] [facility] , [place] 03-25-2019 19:31-0400 BP Systolic 146 mm[Hg] [facility] , [place] 03-25-2019 19:31-0400 Pulse (Heart Rate) 72 /min [facility] [place] 03-25-2019 19:31-0400 Pulse Oximetry 98 % [facility] [place] 03-25-2019 19:31-0400 Respiratory Rate 20 /min [facility] [place] 03-20-2019 02:47-0400 BMI (Body Mass Index) 52.59 kg/m2 Adrian Bird [facility], [place] 03-20-2019 02:47-0400 Body weight 143.34 kg [facility] , [place] 03-20-2019 02:47-0400 Height 165.1 cm [facility] , [place] 03-11-2019 16:40-0400 Body Temperature 98.4 [degF] [facility] [place] 03-11-2019 16:40-0400 BP Diastolic 62 mm[Hg] [facility] , [place] 03-11-2019 16:40-0400 BP Systolic 101 mm[Hg] [facility] , [place] 03-11-2019 16:40-0400 Pulse (Heart Rate) 65 /min [facility] 03-11-2019 16:40-0400 Pulse Oximetry 97 % [facility] , [place] 03-11-2019 16:40-0400 Respiratory Rate 16 /min [facility], [place] 03-11-2019 06:04-0400 BMI (Body Mass Index) 53.98 kg/m2 [facility], [place] 03-11-2019 06:04-0400 Body weight 147.14 kg [facility] , [place] 03-08-2019 19:25-0400 Height 165.1 cm [facility] , [place] 02-17-2019 14:06-0400 BP Diastolic 92 mm[Hg] [facility] [place] 02-17-2019 14:06-0400 BP Systolic 146 mm[Hg] [facility] [place] 02-17-2019 14:06-0400 Pulse (Heart Rate) 84 /min [facility] [place] 02-17-2019 14:06-0400 Pulse Oximetry 96 % Brandon Dahl [facility] , [place] 02-17-2019 14:06-0400 Respiratory Rate 20 /min [facility] [place] 02-17-2019 11:02-0400 Body Temperature 97.9 [degF] Brandon [facility], [place] 01-13-2019 07:51-0400 Body Temperature 97.9 [degF] [facility] [place] 01-13-2019 07:51-0400 BP Diastolic 50 mm[Hg] [facility] , [place] 01-13-2019 07:51-0400 BP Systolic 113 mm[Hg] [place], [place] 01-13-2019 07:51-0400 Pulse (Heart Rate) 80 /min [facility], [place] 01-13-2019 07:51-0400 Pulse Oximetry 95 % [facility] , [place] 01-13-2019 07:51-0400 Respiratory Rate 20 /min [facility], [place] 01-12-2019 21:25-0400 BMI (Body Mass Index) 51.92 kg/m2 [facility], [place] 01-12-2019 21:25-0400 Body weight 141.52 kg [place], [place] 01-12-2019 21:25-0400 Height 165.1 cm [place] Encounters Encounter Date Encounter Type Care Provider Facility Start: 11-01-2024 ambulatory Chuy Garcia ity:[place] Start: 11-01-2024 Registered Referred Chyu Ross - [address] Start: 10-04-2024 End: 10-04-[address] Satya Boyce DO Work Phone: [place] Work Phone: Start: 10-04-2024 End: 10-04-2024 Departed Referred Chuy Galeano -[facility] - [address] Start: 10-04-2024 End: 10-04-2024 ambulatory Chuy Josephneema العلي Facility:[place] Start: 08-27-2024 End: 08-27-[address] Satya Boyce DO Work Phone: [place] Work Phone: Start: 08-27-2024 End: 08-27-2024 Departed Referred Chuy Galeano -[facility] - [address] Start: 08-27-2024 End: 08-27-2024 ambulatory Chuy Josephneeam العلي Facility:[place] Start: 07-14-2024 ambulatory Chuy العلي Facil ity:[place] Start: 07-14-2024 Registered Referred Chuy Galeano -[facility] [address] Start: 07-07-2024 ambulatory Chuy Waleska SEVERIANO Facil ity:[place] Start: 07-07-2024 Registered Referred Chuy Galeano -[facility] - [address] Start: 05-03-2024 End: 05-11-2024 Telephone encounter Sami Vance MD Work Phone: [facility] Comment on above: Referral Start: 05-03-2024 End: 05-03-2024 ambulatory Chuy العلي Facility:[place] Start: 04-06-2024 End: 04-06-2024 ambulatory Chuy Josepher SEVERIANO Facility:[place] Start: 01-05-2024 End: 01-05-2024 ambulatory Chuy Waleska العلي Facility:[place] Start: 12-09-2023 Telephone encounter Bibi Wells MD Work Phone: [facility] Comment on above: Appointment Start: 08-28-2023 End: 08-28-2023 ambulatory [place] Work Phone: Start: 08-28-2023 End: 08-28-2023 Departed Referred [place]-[facility] - [address] Start: 04-04-2023 End: 04-04-2023 ambulatory [place] Work Phone: Start: 04-04-2023 End: 04-04-2023 Departed Referred [place] - [address] Start: 01-17-2023 End: 01-17-2023 ambulatory [facility] Facility[facility] Start: 01-17-2023 End: 01-17-2023 Patient encounter procedure [facility] Work Phone: [facility] Comment on above: Chronic left shoulde r pain (Primary Dx) Start: 11-22-2022 Telephone encounter [facility] Work Phone: [facility] Comment on above: Appointment (No Show on 11/22) Start: 11-20-2022 Telephone encounter [facility] Work Phone: [facility] Comment on above: Appointment (11/22 ap pointment reminder) Start: 08-23-2022 End: 08-23-2022 ambulatory HERNADEZ CRISS BONYO Facility:[facility] Start: 08-21-2022 Telephone encounter [facility] Work Phone: [facility] Comment on above: Appointment (08/23 ap pointment reminder) Start: 08-02-2022 Telephone encounter [facility] Work Phone: [facility] Comment on above: Appointment (Schedul e appointment for Lt shoulder referral) Start: 04-12-2022 Telephone encounter Bibi Wells MD Work Phone: [facility] Comment on above: Missed appt letter r eturned Start: 02-26-2022 Chart abstracting Bibi Wells MD Work Phone: [facility] Start: 12-31-2021 Chart Update Hernadez S Bonyo Work Phone: [facility] Work Phone: Start: 12-29-2021 Chart abstracting Lisa solis MA [facility] Start: 12-13-2021 ambulatory Cayetano Fraire er RT(R) [facility] Comment on above: Radiology [place] Start: 12-13-2021 Patient encounter procedure Cayetano Braun RT(R) [facility] Start: 01-26-2020 End: 01-31-2020 Emergency department patient visit Adrina Bird Work Phone: [facility] Comment on above: Chest pain, unspecif ied type (Primary Dx) Start: 06-17-2019 End: 06-24-2019 Emergency department patient visit Sonia Sweeney MD Work Phone: [facility] Comment on above: Sciatica of left patrick e (Primary Dx); Recurrent falls; Mood disorder (HCC) Start: 05-06-2019 End: 05-08-2019 Emergency department patient visit Asha Ochoa Work Phone: [facility] Comment on above: Chest pain, unspecif ied type (Primary Dx) Start: 05-06-2019 End: 05-06-2019 Emergency department patient visit [facility] Start: 03-20-2019 End: 03-26-2019 Emergency department patient visit Adrian Bird Work Phone: [facility] Comment on above: Acute exacerbation o f chronic low back pain (Primary Dx); Left leg pain; Left leg weakness; Frequent falls; Elevated erythrocyte sedimentation rate; Elevated C-reactive protein (CRP) Start: 03-08-2019 End: 03-11-2019 Evaluation and management of inpatient Ja Olguin Work Phone: [facility] Comment on above: 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 (Primary Dx); Chest pain, unspecified type Start: 02-17-2019 End: 02-17-2019 Emergency department patient visit Brandon Dahl Work Phone: [facility] Comment on above: Sciatica of left patrick e (Primary Dx) Start: 01-12-2019 End: 01-13-2019 Emergency department patient visit Erlin Og Work Phone: [facility] Emergency Dept Comment on above: Dyspnea, unspecified type (Primary Dx); Peripheral edema; Suicidal ideation; Depression, unspecified depression type Start: 06-07-2018 End: 06-09-2018 Patient encounter procedure [facility] Start: 06-07-2018 End: 06-07-2018 Patient encounter procedure LISA RODRÍGUEZ Facility:UNKNOWN Start: 05-15-2018 End: 05-19-2018 Patient encounter procedure SATYA BOYCE [facility] Start: 02-24-2018 End: 03-04-2018 Evaluation and management of inpatient Filiberto Michel Facility:[facility] Start: 11-16-2016 End: 11-17-2016 Emergency department patient visit [facility]AR STRICKLAND [facility] Procedures Date Procedure Procedure Detail Performing Clinician Start: 08-27-2024 Vitamin D, 25-hydrox y measurement Dr. Satya Boyce DO Work Phone: Comment on above: Vitamin D StatusDefi ciency: <20 ng/mL (50nmol/L)Insufficiency: 20-30 ng/mL (50-75 nmol/L)Sufficiency: 30-100 ng/mL (75-250 nmol/L)Toxicity: >100 ng/mL (>250 nmol/L) Start: 01-28-2020 Ecg routine ecg w/le ast 12 lds w/i&r Phoo Pwint Nandar Work Phone: Start: 01-28-2020 Blood count complete auto&auto difrntl wbc Hernadezlulu Boyce Work Phone: Start: 01-28-2020 Comprehensive metabolic panel Hernadez Maryam Boyce Work Phone: Start: 01-27-2020 COVID-19 Satya S B onyo Work Phone: Start: 01-27-2020 Assay of troponin quantitative Satya Boyce Work Phone: Start: 01-27-2020 Assay of troponin quantitative Satya Boyce Work Phone: Start: 01-26-2020 Ct angiography chest w/contrast/noncontrast Sofía Miramontes Work Phone: Start: 01-26-2020 Radiologic exam ches t single view Sofía Miramontes Work Phone: Start: 01-26-2020 Fibrin dgradj produc ts d-dimer quantitative Sofía Miramontes Work Phone: Start: 01-26-2020 Assay of troponin quantitative Sofía Miramontes Work Phone: Start: 01-26-2020 Basic metabolic pane l calcium total Sofía Miramontes Work Phone: Start: 01-26-2020 Blood count complete auto&auto difrntl wbc Sofía Miramontes Work Phone: Start: 01-26-2020 Natriuretic peptide Alec Miramontes Work Phone: Start: 01-26-2020 Ecg routine ecg w/le ast 12 lds w/i&r Sofía Miramontes Work Phone: Start: 10-09-2019 Echocardiography Start: 10-09-2019 Lipid 1996 panel - S josephine or Plasma Bibi Wells MD Work Phone: Start: 06-21-2019 Comprehensive metabolic panel Hernadez S Bonyo DO Work Phone: Start: 06-19-2019 Comprehensive metabolic panel Hernadez S Bonyo DO Work Phone: Start: 06-17-2019 Ct cervical spine w/ o contrast material Sonia Sweeney MD Work Phone: Start: 06-17-2019 Ct head/brain w/o co ntrast material Sonia Sweeney MD Work Phone: Start: 06-17-2019 Basic metabolic pane l calcium total Sonia Sweeney MD Work Phone: Start: 05-09-2019 Adult depression scr eening assessment Cayetano Braun RT(R) Start: 05-08-2019 Basic metabolic pane l calcium total Chimezie Amanambu Work Phone: Start: 05-08-2019 Blood count complete auto&auto difrntl wbc Elida Zuluaga Work Phone: Start: 05-07-2019 Assay of troponin quantitative Elida Zuluaga Work Phone: Start: 05-07-2019 Blood count complete automated Elida Zuluaga Work Phone: Start: 05-06-2019 Assay of troponin quantitative Asha Ochoa Work Phone: Start: 05-06-2019 Basic metabolic pane l calcium total Asha Ochoa Work Phone: Start: 05-06-2019 Blood count complete auto&auto difrntl wbc Asha Ochoa Work Phone: Start: 05-06-2019 Hepatic function panel Asha Oteroneema Work Phone: Start: 05-06-2019 Natriuretic peptide Huong ayala Shannaneema Work Phone: Start: 05-06-2019 Ecg routine ecg w/le ast 12 lds w/i&r Asha Ochoa Work Phone: Start: 05-06-2019 Radiologic exam ches t single view Asha Oteroneema Work Phone: Start: 05-04-2019 Electrocardiogram Start: 2019 Mri spinal canal lum bar w/o & w/contr matrl Rey Kevan Work Phone: Start: 2019 Blood count complete auto&auto difrntl wbc Satya Boyce Work Phone: Start: 2019 Comprehensive metabolic panel Satya Boyce Work Phone: Start: 03-21-2019 Blood count complete auto&auto difrntl wbc Satya Boyce Work Phone: Start: 03-21-2019 Comprehensive metabolic panel Satya Boyce Work Phone: Start: 03-21-2019 Drug screen class list a Satya Boyce Work Phone: Start: 03-20-2019 Blood count complete automated Adrian Bird Work Phone: Start: 03-20-2019 Sedimentation rate r bc automated Adrian Bird Work Phone: Start: 03-20-2019 Basic metabolic pane l calcium total Adrian Bird Work Phone: Start: 03-20-2019 C-reactive protein Kevandres Bird Work Phone: Start: 03-09-2019 Assay of troponin quantitative Satya Boyce Work Phone: Start: 03-09-2019 Assay of troponin quantitative Satya Boyce Work Phone: Start: 03-09-2019 Blood count complete auto&auto difrntl wbc Satya Boyce Work Phone: Start: 03-09-2019 Comprehensive metabolic panel Satya Boyce Work Phone: Start: 03-09-2019 Creatine kinase total B darlene Boyce Work Phone: Start: 03-08-2019 Assay of lipase Nav Gomes Work Phone: Start: 03-08-2019 Assay of troponin quantitative Nav Gomes Work Phone: Start: 03-08-2019 Basic metabolic pane l calcium total Nav Gomes Work Phone: Start: 03-08-2019 Blood count complete automated Nav Gomes Work Phone: Start: 03-08-2019 Fibrin dgradj produc ts d-dimer quantitative Nav Gomes Work Phone: Start: 03-08-2019 Natriuretic peptide Alfredo Gomes Work Phone: Start: 03-08-2019 Radiologic exam ches t single view Nav Gomes Work Phone: Start: 03-08-2019 Ecg routine ecg w/le ast 12 lds w/i&r Ja A Gombash Work Phone: Start: 01-13-2019 CANNABINOID, URINE, SCREENING, CRITICAL CARE Lisa Rodríguez Work Phone: Start: 01-13-2019 Drug screen class list a Lisa Rodríguez Work Phone: Start: 01-13-2019 Ct angiography chest w/contrast/noncontrast Lisa Rodríguez Work Phone: Start: 01-12-2019 Radiologic exam ches t single view Erlin R Lenka Work Phone: Start: 01-12-2019 ADD ON LAB TEST Erlin R Lenka Work Phone: Start: 01-12-2019 Assay of ethanol Quenti n R [facility] Work Phone: Start: 01-12-2019 Assay of troponin quantitative Erlin R [employer] Phone: Start: 01-12-2019 Basic metabolic pane l calcium total Erlin R [facility] Work Phone: Start: 01-12-2019 Blood count complete automated Erlin R Lenka Work Phone: Start: 01-12-2019 Fibrin dgradj produc ts d-dimer quantitative Erlin R [facility] Work Phone: Start: 01-12-2019 Natriuretic peptide Que ntin R [facility] Work Phone: Start: 05-20-2018 INITIATE OXYGEN THER APY PROTOCOL HERNADEZ BONYO Start: 05-19-2018 NURSING COMMUNICATION B DARLENE VASQUEZO Start: 05-19-2018 DISCHARGE PATIENT TONIA N BONYO Start: 05-19-2018 Ndl emg 1 xtr w/wo r elated paraspinal areas HERNADEZ BONYO Start: 05-19-2018 INITIATE OXYGEN THER APY PROTOCOL HERNADEZ BONYO Start: 05-18-2018 SUPPLY REQUEST SATYA SIFUENTES Start: 05-18-2018 IP CONSULT TO NEUROLOGY SATYA BONYO Start: 05-18-2018 TRANSFER PATIENT SATYA BONYO Start: 05-18-2018 Mra head w/o contrst material HERNADEZ BONYO Start: 05-18-2018 Mri brain brain stem w/o contrast material SATYA BONYO Start: 05-18-2018 INITIATE OXYGEN THER APY PROTOCOL HERNADEZ BONYO Start: 05-17-2018 INITIATE OXYGEN THER APY PROTOCOL SATYA BONYO Start: 05-17-2018 Basic metabolic pane l calcium total SATYA BONYO Start: 05-17-2018 Hemoglobin glycosylated a1c HERNADEZ BONYO Start: 05-17-2018 SUPPLY REQUEST SATYA LUTZYO Start: 05-16-2018 Complete tthrc echo congenital cardiac anomaly SATYA BONYO Start: 05-16-2018 INITIATE OXYGEN THER APY PROTOCOL HERNADEZ BONYO Start: 05-16-2018 Basic metabolic pane l calcium total SATYA BONYO Start: 05-16-2018 Blood count complete auto&auto difrntl wbc SATYA BONYO Start: 05-16-2018 Lipid panel SATYA BAUTISTA YO Start: 05-16-2018 ELEVATE HEELS OFF OF BED HERNADEZ BONYO Start: 05-16-2018 HEAD OF BED 60 DEGRE ES OR LESS HERNADEZ BONYO Start: 05-16-2018 NURSING COMMUNICATION B DARLENE BONYO Start: 05-16-2018 TURN PATIENT SATYA BAUTISTA YO Start: 05-16-2018 Urnls dip stick/tabl et reagent auto microscopy HERNADEZ BONYO Start: 05-16-2018 DIET CARDIAC SATYA BAUTISTA YO Start: 05-16-2018 INITIATE OXYGEN THER APY PROTOCOL SATYA BONYO Start: 05-16-2018 IP CONSULT TO NEUROLOGY HERNADEZ PEDROO Start: 05-16-2018 Mra neck w/o &w/cont rast material HERNADEZ BONYO Start: 05-16-2018 NEURO CHECKS SATYA BAUTISTA YO Start: 05-16-2018 NURSING SWALLOW ASSESSMENT HERNADEZLULU VASQUEZO Start: 05-16-2018 OT EVAL AND TREAT BENSO N BONYO Start: 05-16-2018 PROVIDE PATIENT EDUC ATION MATERIALS HERNADEZLULU VASQUEZO Start: 05-16-2018 PT EVAL AND TREAT BENSO N BONYO Start: 05-16-2018 REASON FOR NOT SELEC TING ANTILIPEMIC HERNADEZ BONYO Start: 05-16-2018 VITAL SIGNS HERNADEZ MICHELE YO Start: 05-16-2018 VITAL SIGNS - NOTIFY MD SATYA BOYCE Start: 05-16-2018 PATIENT STATUS (FROM ED OR OR/PROCEDURAL) SATYA VASQUEZO Start: 05-16-2018 TELEMETRY MONITORING BE NSON PEDROO Start: 05-15-2018 Ct angiography head w/contrast/noncontrast SATYA BOYCE Start: 05-15-2018 Ct angiography neck w/contrast/noncontrast SATYA BOYCE Start: 05-15-2018 Ct head/brain w/o co ntrast material SATYA BOYCE Start: 05-15-2018 Ct perfusion w/contrast cbf SATYA BOYCE Start: 05-15-2018 IP CONSULT TO CERTIFIED HISTOLOGIC TECHNICIAN AL MEDICINE SATYA BOYCE Start: 05-15-2018 EKG 12-LEAD SATYA BAUTISTA YO Start: 05-15-2018 Radiologic exam ches t single view SATYA BOYCE Start: 05-15-2018 Blood count complete automated SATYA BOYCE Start: 05-15-2018 Comprehensive metabolic panel SATYA BOYCE Start: 05-15-2018 Prothrombin time SATYA BOYCE Start: 05-15-2018 Thromboplastin time partial plasma/whole blood SATYA BOYCE Start: 05-15-2018 TROPONIN SATYA BAUTISTA YO Start: 05-15-2018 POCT GLUCOSE SATYA BAUTISTA YO Start: 05-15-2018 SALINE LOCK IV SATYA Baker ONYO Start: 02-25-2018 Echocardiography Filiberto Orentabatha Start: 11-16-2016 APPLY CONTINUOUS CARDIORESPIRATORY MONITOR KAR STRICKLAND Start: 11-16-2016 Assay of troponin quantitative KAR LAKHWINDERUSEMarsha Start: 11-16-2016 Basic metabolic pane l calcium total KAR LAKHWINDERUSER Start: 11-16-2016 Blood count complete auto&auto difrntl wbc KAR LAKHWINDERUSEMarsha Start: 11-16-2016 Chest x-ray KAR KEY Start: 11-16-2016 DELIVER OXYGEN VIA N KARLA CANNULA KAR KEANEUSER Start: 11-16-2016 Ecg routine ecg w/le ast 12 lds trcg only w/o i&r KAR LAKHWINDERUSER Start: 11-16-2016 Fibrin dgradj produc ts d-dimer qual/semiquan KAR LAKHWINDERUSER Start: 11-16-2016 Hereditary retinal d srdrs gen seq analys 15 gen KAR LAKHWINDERUSER Start: 11-16-2016 INSERT PERIPHERAL IV ACCESS KAR KEANEUSER Start: 09-26-2009 Colonoscopy Cayetano Co oper RT(R) Plan of Treatment Date Care Activity Detail Author Start: 2027 Pneumococcal vaccination Pneum ococcal Vaccine (3 of 3 - PPSV23 or PCV20) [facility] Start: 03-07-2025 DIABETES SCREEN DIABETES SCREEN [facility] Start: 03-07-2025 Diabetes Screening Diabetes Screenin g [facility] Start: 02-26-2025 DIABETES SCREEN DIABETES SCREEN [facility] Start: 12-12-2024 DIABETES SCREEN DIABETES SCREEN [facility] Start: 10-08-2024 Lipid panel [facility] Start: 08-10-2024 LIPID SCREEN LIPID SCREEN [facility] Start: 02-01-2024 COVID-19 Vaccine ( season) COVID-19 Vaccine ( season) [facility] Start: 02-01-2024 Influenza vaccination Influenza Vacc ine (#1) [facility] Start: 06-02-2023 Behavioral Health Screening Behavioral Health Screening [facility] Start: 05-16-2023 Lipid screen [facility] [place] Start: 02-01-2023 Diabetes mellitus screening Diabetes Screening [facility] Start: 01-31-2023 Covid-19 Vaccine ( season) Covid-19 Vaccine ( season) [facility] Start: 01-31-2023 Influenza vaccination C [facility] Start: 06-02-2022 [facility] Start: 2022 RSV Immunization for Adults (1 - Risk 60-74 years 1-dose series) RSV Immunization for Adults (1 - Risk 60-74 years 1-dose series) [facility] Start: 2022 RSV Vaccine (1 - 1-d ose 60+ series) RSV Vaccine (1 - 1-dose 60+ series) [facility] Start: 01-31-2022 Influenza vaccination INFLUENZA (#1) [facility] Start: 07-23-2021 COVID-19 VACCINE (4 - Booster for Pfizer series) COVID-19 VACCINE (4 - Booster for Pfizer series) [facility] Start: 06-02-2021 DEPRESSION ASSESSMENT [facility] Start: 05-17-2021 COVID-19 VACCINE (4 - Booster for Pfizer series) COVID-19 VACCINE (4 - Booster for Pfizer series) [facility] Start: 05-17-2021 Diabetes screen Diabetes screen [facility] [place], Start: 01-27-2021 Creatinine measurement Creatinine Le gina [facility] Start: 01-27-2021 Potassium measurement Potassium Leve l [facility] Search to Phone Start: 11-08-2020 Creatinine measurement Creatinine mo nitoring [place] Start: 11-08-2020 Potassium monitoring Potassium monit [place] Start: 10-08-2020 Hepatitis B surface antibody level LDL Cholesterol [facility] Start: 08-10-2020 Hepatitis B surface antibody level LDL CHOLESTEROL [facility] Start: 06-21-2020 Creatinine monitoring Creatinine mon [facility] Work Phone: Start: 06-21-2020 Potassium monitoring Potassium monit [facility] Work Phone: Start: 05-09-2020 Adult depression scr eening assessment DEPRESSION SCREENING [facility] Start: 05-06-2020 Creatinine monitoring Creatinine mon [place], [place] Start: 05-06-2020 Potassium monitoring Potassium monit [place] Start: 2020 Creatinine monitoring Creatinine mon [place] Start: 2020 Potassium monitoring Pot[place] monit [place] Start: 03-09-2020 Creatinine monitoring Creatinine mon [place] Start: 03-09-2020 Potassium monitoring Pot[place] monit [place] Start: 02-01-2020 Influenza vaccination Flu vaccine (# 1) [place] Start: 01-13-2020 Creatinine monitoring Creatinine mon [place] Start: 01-13-2020 Potassium monitoring Potassium monit [place] Start: 05-16-2019 Lipid panel Lipid screen [place] Start: 05-16-2019 Lipid screen Lipid [place] Start: 01-31-2019 Influenza vaccination Flu vaccine (# 1) [place] Start: 11-17-2017 TSH Qn TSH testing [place] Start: 11-17-2017 TSH testing TSH testing [place] Start: 2017 PROSTATE CANCER SCRE ENING DISCUSSION PROSTATE CANCER SCREENING DISCUSSION [facility] Start: 2017 Prostate specific an tigen measurement Prostate Cancer Screening Discussion [facility] Start: 02-28-2017 PNEUMOCOCCAL (2 - PCV) PNEUMOCOCCAL (2 - PCV) [facility] Start: 02-28-2017 Pneumococcal Vaccine : 50+ Years (2 of 2 - PCV) Pneumococcal Vaccine: 50+ Years (2 of 2 - PCV) [facility] Start: 10-17-2014 COLORECTAL CANCER SCREENING COLORECTAL CANCER SCREENING [facility] Start: 10-17-2014 FECAL OCCULT BLOOD FECAL OCCULT BLOO D [facility] Start: 10-17-2014 Screening for malign ant neoplasm of colon [facility] Start: 2012 Colon cancer screen colonoscopy Colon cancer screen colonoscopy [place] Start: 2012 Screening for malign ant neoplasm of colon Colon cancer screen colonoscopy [place] Start: 2012 Shingles Vaccine (1 of 2) Carty gles Vaccine (1 of 2) [place] Start: 2012 SHINGRIX VACCINE (1 of 2) CARTY GRIX VACCINE (1 of 2) [facility] Start: 2012 Zoster Vaccines (1 of 2) Zoste r Vaccines (1 of 2) [facility] Start: 09-26-2010 Colonoscopy COLONOSCOPY [facility] Start: 09-26-2010 Screening for malign ant neoplasm of colon Colonoscopy [facility] Start: 2007 COLOGUARD (FIT-DNA) COLOGUARD (FIT-D NA) [facility] Start: [address] COLONOGRAPHY [facility] Start: 2007 Screening for malign ant neoplasm of colon [facility] Start: 2007 SIGMOIDOSCOPY SIGMOIDOSCOPY [facility] Start: 1981 DTaP/Tdap/Td vaccine (1 - Tdap) DTaP/Tdap/Td vaccine (1 - Tdap) [place] Start: 1981 DTaP/Tdap/Td Vaccine s (1 - Tdap) DTaP/Tdap/Td Vaccines (1 - Tdap) [facility] Start: 1981 Urine microalbumin profile [facility] Start: 1980 ANNUAL PCP TEAM HYDROPULPER AMOS DISEASE VISIT ANNUAL PCP TEAM CHRONIC DISEASE VISIT [facility] Start: 1980 BP CONTROLLED (<130/80) BP CONTROLLE D (<130/80) [facility] Start: 1980 HEPATITIS C SCREENING [facility] Start: 1980 Hepatitis C screening Hepatitis C [facility] Start: 1980 HIV SCREENING [facility] SCRE[facility]ING [facility] Start: 1980 HIV screening [facility] Screening [facility] Start: 1977 HIV screen [facility] screen [facility] [place] [place] Start: 1977 HIV screening HIV screen [facility] [place] Start: 1974 Depression Monitoring Depression Mon [facility] Start: 1973 DTaP/Tdap/Td vaccine (1 - Tdap) DTaP/Tdap/Td vaccine (1 - Tdap) [place] Start: 1963 MMR Vaccines (1 of 1 - Standard series) MMR Vaccines (1 of 1 - Standard series) [facility] Start: 1962 Echocardiography Echocardiogram [facility] Start: 1962 Hepatitis C screen Hepatitis C scree n [place] Start: 1962 Hepatitis C screening Hepatitis C cherelle noa [place] Start: 1962 HIV screening HIV Screening [facility] Start: 1962 Screening for malign ant neoplasm of colon [facility] Start: 1962 Thyroid stimulating hormone measurement TSH Level [facility] End: 01-13-2019 Add On Lab Test Add On Lab Test Lab Add-On One Time for 1 Occurrences starting 01/13/2019 until 01/13/2019 [place] Comment on above: One Time for 1 Occur rences starting 01/13/2019 until 01/13/2019 End: 05-07-2019 Cardiac Stress Test- W Pharm Cardiac Stress Test- W Pharm Cardiac Services Routine One Time for 1 Occurrences starting 05/07/2019 until 05/07/2019 [place] Comment on above: One Time for 1 Occur rences starting 05/07/2019 until 05/07/2019 End: 01-29-2020 CBC Auto Differential CBC Auto Differential Lab Routine Daily for 2 Days starting 01/28/2020 until 01/29/2020 [place] Comment on above: Daily for 2 Days sta rting 01/28/2020 until 01/29/2020 End: 01-30-2020 CBC Auto Differential CBC Auto Differential Lab Routine Daily for 2 Days starting 01/29/2020 until 01/30/2020 [facility] Comment on above: Daily for 2 Days sta rting 01/29/2020 until 01/30/2020 CBC Auto Differential [facility] [place] Comment on above: Daily until disconti nued starting 06/18/2019, 2 completed End: 03-23-2019 CBC Auto Differential CBC Auto Differential Lab Routine Daily for 2 Days starting 2019 until 03/23/2019 [facility] Comment on above: Daily for 2 Days sta rting 2019 until 03/23/2019 End: 06-22-2019 CBC W Auto Differential panel - Blood CBC Auto Differential Lab Routine Daily for 2 Days starting 06/21/2019 until 06/22/2019 [facility] Work Phone: Comment on above: Daily for 2 Days sta rting 06/21/2019 until 06/22/2019 End: 01-28-2020 Comprehensive metabolic 2000 panel Comprehensive Metabolic Panel Lab Routine Tomorrow AM for 1 Occurrences starting 01/28/2020 until 01/28/2020 [facility] Comment on above: Tomorrow AM for 1 Oc currences starting 01/28/2020 until 01/28/2020 End: 01-29-2020 Comprehensive metabolic 2000 panel Comprehensive Metabolic Panel Lab Routine Tomorrow AM for 1 Occurrences starting 01/29/2020 until 01/29/2020 [facility] Comment on above: Tomorrow AM for 1 Oc currences starting 01/29/2020 until 01/29/2020 Comprehensive metabo lic 2000 panel [facility] Work Phone: Comment on above: Daily until disconti nued starting 06/18/2019, 2 completed End: 06-21-2019 Comprehensive metabolic 2000 panel - Serum or Plasma Comprehensive Metabolic Panel Lab Routine Tomorrow AM for 1 Occurrences starting 06/21/2019 until 06/21/2019 [facility] Work Phone: Comment on above: Tomorrow AM for 1 Oc currences starting 06/21/2019 until 06/21/2019 EKG 12 Lead - Chest Pain EKG 12 Lead - Chest Pain ECG STAT 01/12/2019 9:25 PM EDT [facility] [place] End: 05-07-2019 Nasal Cannula Oxygen Nasal Cannula Oxygen Respiratory Care Routine As Needed until discontinued starting 05/07/2019 [facility] Comment on above: As Needed until disc ontinued starting 05/07/2019 End: 05-07-2019 Troponin x1 Troponin x1 Lab STAT One Time for 1 Occurrences starting 05/07/2019 until 05/07/2019 [facility] Comment on above: One Time for 1 Occur rences starting 05/07/2019 until 05/07/2019 Troponin x1 Troponin x1 Lab STAT 05/07/2019 7:02 AM EST [facility] XR SHOULDER 3V AP/Y VIEW/AXILLARY LEFT (AK) XR SHOULDER 3V AP/Y VIEW/AXILLARY LEFT (AK) Radiology Routine Chronic left shoulder pain Ordered: 01/14/2023 [facility] Work Phone: Comment on above: Ordered: 01/14/2023 [facility] Immunizations Immunization Date Immunization Notes Care Provider Chaz marie 03-08-2019 influenza virus vacc ine, unspecified formulation [facility] 02-29-2016 influenza, high dose seasonal, preservative-free Cayetano Braun RT(R) [facility] 02-29-2016 pneumococcal polysaccharide vaccine, 23 valent Cayetano Branu RT(R) [facility] 02-01-2012 influenza virus vacc ine, whole virus Cayetano Braun RT(R) [facility] Work Phone: 01-31-2011 influenza, seasonal, injectable Cayetano Braun RT(R) [facility] Work Phone: 01-31-2009 influenza virus vacc ine, whole virus Cayetano Braun RT(R) [facility] 01-31-2009 pneumococcal polysaccharide vaccine, 23 valent Cayetano Braun RT(R) [facility] Payers Date Payer Category Payer Self-pay [id number] 2022 Medicaid HMO [facility] MEDICAID ODM [id number] 2021 Medicaid UHC MEDICAID [employer] MEDICAID [id number] 2021-Present [phone] [address] [place] [address] Medicaid [id number] 2021 Medicaid [id number] 2016 Unknown [facility]NA[facility] MEDICAID xxxxxxxxxxx 2016-Present [phone] CLAIMS DEPARTMENT [address] [place] [address] xxxxxxxxxxx [id number] 2016 Medicaid [id number] 1962 Unknown [id number] 1962 Unknown [id number] 1962 Unknown [id number] 1962 Unknown [id number] 1959 Unknown [id number] Unknown [id number] Unknown Unknown [id number] Unknown [id number] Unknown [id number] Unknown [id number] Unknown [id number] Unknown [id number] Unknown [id number] Unknown [id number] Social History Date Type Detail Facility Start: 05-17-2018 End: 06-16-2019 Tobacco smoking status NHIS Never smoker [facility] Start: 05-17-2018 End: 05-21-2022 Alcohol intake No [facility] Work Phone: Start: 12-22-2015 Alcohol Comment [place] Start: 1960 Sex Assigned At Not on file [place] Start: 05-07-2019 End: 05-21-2022 Alcohol intake Current non-drinker of alcohol (finding) [place] Start: 01-30-2020 End: 02-26-2022 Tobacco use and exposure Never used [place] Start: 12-02-2021 End: 12-12-2021 Exposure to SARS-CoV-2 (event) Not sure [place] Start: 12-17-2019 History SDOH Financial 5 [facility] Start: 12-17-2019 History SDOH Food Worry 1 [facility] Start: 12-17-2019 History SDOH Transpo rt Med 2 [facility] Start: 02-26-2022 Tobacco smoking stat us TXIS Ex-smoker [facility] End: 06-02-2000 History of tobacco use Current smoker [facility] End: 06-02-2000 History of tobacco use Cigarette Smoker [facility] Start: 02-26-2022 End: 06-24-2023 Alcohol intake Ex-drinker (finding) [facility] Start: 05-21-2022 End: 01-17-2023 History of Social function [facility] Work Phone: How hard is it for y ou to pay for the very basics like food, housing, medical care, and heating Not hard at all [facility] Work Phone: (I/We) worried whezoie er (my/our) food would run out before (I/we) got money to buy more. Never true [facility] Work Phone: Start: 06-16-2019 End: 06-16-2019 Tobacco smoking status NHIS Unknown if ever smoked [place] Start: 1960 Sex Assigned At Male W [facility] Start: 12-31-2021 End: 09-21-2024 Sex Male (finding) [facility] Clinical Notes 06-22-2019 to 05-18-2024 Telephone Encounter - Inga Garcia MA - 05/18/2024 2:12 PM ESTTelephone Encounter - Inga Garcia MA - 05/18/2024 2:12 PM ESTTelephone Encounter - Inga Garcia MA - 05/11/2024 3:04 PM EST Note Date & Type Note [facility] 05-18-2024 Note Anni called back in. Patient's referral is considered external. We would not be able to schedule him for at least 6 months. Can refer to another GI office. [facility] 05-18-2024 Telephone encounter Note Anni called back in. Patient's referral is considered external. We would not be able to schedule him for at least 6 months. Can refer to another GI office. [facility] 05-18-2024 Miscellaneous Notes Anni called back in. Patient's referral is considered external. We would not be able to schedule him for at least 6 months. Can refer to another GI office. Called and spoke with Anni. I advised her we do not have the referral still. She will update Maria Elena. Message released to patient as written. Patient's further questions if applicable: Maria Elena (Benedicto Sabrina) returned call to check the status of referral for patient. Informed Maria Elena that referral not yet in patient's chart for scheduling. Maria Elena can be reached at [phone] at [address] upon confirmation of referral received. Please advise. Were all questions from office addressed or relayed to the patient from encounter: Yes Name of caller: Maria Elena Contact phone number: [phone] Relationship to Patient: Benedicto Ross- [address] Provider: N/A Practice: [facility]: Chief Complaint/Reason for Call: Maria Elena states that a referral was sent for the patient a week ago from either Dr. Galeano or AFIA Canales and she has been trying to schedule an appointment for him since. Maria Elena states that the would like to receive a call back to discuss the referral and scheduling. Maria Elena states that when you call ask for the 300 [address]. Please advise. Best time of day caller can be reached: Any Patient advised that office/PCP has 24-48 business hours to return their call: No documented in this encounter [facility] 05-11-2024 Note Called and spoke wit ayan Hutton. I advised her we do not have the referral still. She will update Maria Elena. [facility] 05-11-2024 Telephone encounter Note Called and spoke with Anni. I advised her we do not have the referral still. She will update Maria Elena. [facility] 05-10-2024 Telephone encounter Note Message released to patient as written. Patient's further questions if applicable: Maria Elena (Benedicto Ross) returned call to check the status of referral for patient. Informed Maria Elena that referral not yet in patient's chart for scheduling. Maria Elena can be reached at [phone] at [address] upon confirmation of referral received. Please advise. Were all questions from office addressed or relayed to the patient from encounter: Yes [facility] [employer] Search to Phone 05-03-2024 Telephone encounter Note Name of caller: Maria Elena Contact phone number: [phone] Relationship to Patient: Benedicto Ross- [address] Provider: N/A Practice: [facility] [place] [facility]: Chief Complaint/Reason for Call: Maria Elena states that a referral was sent for the patient a week ago from either Dr. Galeano or AFIA Canales and she has been trying to schedule an appointment for him since. Maria Elena states that the would like to receive a call back to discuss the referral and scheduling. Maria Elena states that when you call ask for the 300 unit. Please advise. Best time of day caller can be reached: Any Patient advised that office/PCP has 24-48 business hours to return their call: No [facility] [employer] Search to Phone 12-10-2023 Telephone encounter Note The number listed is ringing in as a fax #. Loraine Song [facility] 12-10-2023 Miscellaneous Notes The number listed is ringing in as a fax #. Loraine Song Annamaria from Central Scheduling left voicemail stating patient would like to schedule appointment. Please call patient at [phone] to schedule appointment. documented in this encounter [facility] 12-09-2023 Telephone encounter Note Annamaria from [facility] left voicemail stating patient would like to schedule appointment. Please call patient at [phone] to schedule appointment. [facility] 11-22-2022 Miscellaneous Notes Called patient about their No Show appointment with the clinic on 11/22. Patient requested to reschedule their appointment. Rescheduled patient to 12/13. documented in this encounter [facility] 11-20-2022 Miscellaneous Notes Called patient to remind them about their appointment with the clinic on 11/22 . Patient confirmed appointment. documented in this encounter [facility] 08-26-2022 Note HNO ID: [id number] Author: Mainor Francisco MD Service: ? Author Type: Physician Type: Progress Notes Filed: 08/26/2022 3:26 PM Note Text: ?I was the supervising attending for this patient at today's clinic.? Mainor Francisco MD [facility] 08-23-2022 Note HNO ID: [id number] Author: Hemanth Kennedy MD Service: ? Author Type: Resident Type: Progress Notes Filed: 08/23/2022 1:01 PM Note Text: Chief complaint: Left rotator cuff tear Natalie Gerber is a 62 year old male who presents for the above. Patient reports a mechanical fall in November 2021. Was admitted to the hospital for cardiac reasons at that time. Has seen orthopedics at the time of admission. MRI was obtained which demonstrated a left supraspinatus tear. Patient lives in a nursing facility and has worked with physical therapy for this rotator cuff tear there. States that it has been a while since he has done physical therapy at his facility. He struggles with pain and limited mobility with his left shoulder. Is prescribed Russell and tramadol by his nursing facility. Pain ranges from 7/10 to 4/10 daily. Reviewed nursing note and current pain scale. PAST MEDICAL HISTORY Diagnosis Date Arthritis Chest pain Chronic lower back pain Congestive heart failure (HCC) Coronary artery disease Depression Dyslipidemia Heart attack (HCC) 2006 Obesity Unspecified essential hypertension PAST SURGICAL HISTORY Procedure Laterality Date BACK SURGERY HX CARDIAC CATHETERIZATION HX CHOLECYSTECTOMY HX HERNIA REPAIR HX JOINT REPLACEMENT HX hip ORTHOPEDICS SURGERY HX total hip replacement PAST SURGICAL HISTORY OF 2005 total hip replacement left FAMILY HISTORY Problem Relation Age of Onset Heart Attack Mother Ischemic Heart Disease Mother Aneurysm Mother Stroke Father Heart Attack Father Heart Attack Sister Ischemic Heart Disease Sister Social History Tobacco Use Smoking status: Former Types: Cigarettes Quit date: 2000 Years since quittin.2 Smokeless tobacco: Never Substance Use Topics Alcohol use: Not Currently Comment: Sober for 14 yrs Drug use: Not Currently Types: Cocaine Comment: Quit 2000 - Rehababilitation Medications: Current Outpatient Medications Medication Sig spironolactone (ALDACTONE) 25 mg tablet Take 25 mg by mouth once daily. lidocaine-menthol 4-1 % ptmd Apply to affected area. tamsulosin (FLOMAX) 0.4 mg Take 0.4 mg by mouth once daily. QUEtiapine (SEROQUEL) 25 mg tablet Take 25 mg by mouth. 3 25mg tablets at bedtime HYDROcodone-acetaminophen (NORCO) 5-325 mg per tablet Take 1 tablet by mouth every 8 hours as needed for pain. Ibuprofen 200 mg cap Take by mouth every 6 hours as needed. carvedilol (COREG) 12.5 mg tablet Take 1 tablet by mouth twice daily with meals for 20 days. dextroamphetamine-amphetamine (ADDERALL) 20 mg tablet Take 1 tablet by mouth twice daily for 5 days. metFORMIN (GLUCOPHAGE) 1,000 mg tablet Take 1 tablet by mouth twice daily with meals for 20 days. senna-docusate (SENNA-S) 8.6-50 mg per tablet Take 1 tablet by mouth twice daily. furosemide (LASIX) 20 mg tablet Take 1 tablet by mouth once daily. clopidogrel (PLAVIX) 75 mg tablet Take 1 tablet by mouth once daily. aspirin 81 mg chewable tablet Take 1 tablet by mouth once daily. pantoprazole DR (PROTONIX) 40 mg tablet Take 1 tablet by mouth DAILY (6 AM). acetaminophen (TYLENOL) 325 mg tablet Take 650 mg by mouth every 6 hours as needed for Pain or Fever. bisacodyl (DULCOLAX) 10 mg supp 10 mg by RECTAL route once daily as needed for Constipation. magnesium hydroxide (MOM) 400 mg/5 mL suspension Take by mouth once daily as needed for Constipation. atorvastatin (LIPITOR) 20 mg tablet Take 1 tablet by mouth once daily. citalopram (CELEXA) 20 mg tablet Take 1 tablet by mouth once daily. isosorbide mononitrate ER (IMDUR) 30 mg 24 hr tablet Take 1 tablet by mouth once daily. levothyroxine (SYNTHROID) 25 mcg tablet Take 1 tablet by mouth DAILY (6 AM). nitroglycerin sublingual (NITROQUICK) 0.4 mg SL tablet Dissolve 0.4 mg under the tongue every 5 minutes as needed. warfarin (COUMADIN) 5 mg tablet Take 1 tablet by mouth daily as directed. (Patient not taking: Reported on 08/23/2022) mineral oil (FLEET MINERAL OIL ENEMA) enema 133 mL by RECTAL route once daily as needed for Constipation. (Patient not taking: Reported on 08/23/2022) QUEtiapine (SEROQUEL) 100 mg tablet Take 1 tablet by mouth daily at bedtime. No current facility-administered medications for this visit. Allergies: ALLERGIES Allergen Reactions Fish Derived Hives Nubain [Nalbuphine * Other: See Comments Feels like hes climbing acosta per pt Toradol [Ketorolac * Hives Pt states that he tolerates aspirin Physical Examination: Resp 20 Ht 5' 5" (1.65m) Wt 296 lb 3.2 oz (134.4kg) BMI 49.29 kg/(m2). Left upper extremity: Left shoulder is atraumatic. No swelling, superficial abrasions, or erythema about the older. Active range of motion limited to 90 degrees of abduction and forward elevation. Pain and weakness with supraspinatus empty can testing. Pain with external rotation against resistance. Pain with passive range of motion past 90 degr (more content not included)... [facility] 08-21-2022 Miscellaneous Notes Called patient to remind them about their appointment with the Clinic on 08/23. Patient confirmed appointment. documented in this encounter [facility] 08-02-2022 Miscellaneous Notes Called patient to schedule an appointment for a left shoulder referral. Scheduled patient for 08/23. documented in this encounter [facility] 04-12-2022 Miscellaneous Notes OK thank you. Lorenza Cooper RN Missed appt letter returned regarding 03/04/2022 appt. Post Office states "Attempted, Return to Sender - Unable to Forward". Also called pt to leave message but phone number not in service. documented in this encounter [facility] 12-13-2021 History of Presen t illness Narrative RADIOLOGY SERVICE PROGRESS NOTE DATE OF SERVICE: December 13, 2021 TIME OF SERVICE: 06:55 EVENT: EXAM/PROCEDURE NOT COMPLETED - DUE TO PT BODY HABITUS UNABLE TO IMAGE FOR STRESS TEST; INJECTED NOT SCANNED ADDITIONAL EVENT DETAILS: 16.5 mCi TC [facility] LAC @06:55 AM SIGNATURE: RT Fredy(R) PATIENT NAME: Natalie Gerber DATE: December 13, 2021 TIME: 7:57 AM PAGER/CONTACT #: documented in this encounter [facility] 12-11-2019 History of Past i llness Narrative Problem Noted Date Resolved Date DERREK (acute kidney injury) 12/11/20192019 CAP (community acquired pneumonia) 12/11/2019 12/14/2019 Chest pain 03/19/2019 03/19/2019 Chest pain 08/08/2014 01/12/2019 Overview: - atypical, negative enzymes, no concerning EKG findings - in setting of appropriately managed CAD by history - previous cath and stress negative - Will go for nuclear scan this am and then can D/C home if Scan is OK MDD (major depressive disord er), recurrent severe, without psychosis 07/30/2013 11/29/2013 Drug overdose 07/09/2013 11/29/2013 Overview: Tramadol 20 tablets Recurrent major depression 06/25/201311/29 Chest pain at rest 07/20/2012 11/29/2013 Suicidal ideation 11/08/2011 11/29/2013 Depression 11/08/2011 11/29/2013 HTN (hypertension) 11/08/2011 11/29/2013 Hypothyroidism 11/08/2011 11/29/2013 Postlaminectomy syndrome, lumbar region 09/04/19 10 11/29/2013 Pain in Joint, Lower Leg, right knee 09/03/2009 11/29/2013 Pain in joint, pelvic region and thigh 6 11/29/2013 documented as of this encounter (statuses as of 12/13/2021) [facility] History of Past illness Narrative* Problem Noted Date Resolved Date DERREK (acute kidney injury) 12/11/20192019 CAP (community acquired pneumonia) 12/11/2019 12/14/2019 Chest pain 03/19/2019 03/19/2019 Chest pain 08/08/2014 01/12/2019 Overview: - atypical, negative enzymes, no concerning EKG findings - in setting of appropriately managed CAD by history - previous cath and stress negative - Will go for nuclear scan this am and then can D/C home if Scan is OK MDD (major depressive disord er), recurrent severe, without psychosis 07/30/2013 11/29/2013 Drug overdose 07/09/2013 11/29/2013 Overview: Tramadol 20 tablets Recurrent major depression 06/25/201311/29 Chest pain at rest 07/20/2012 11/29/2013 Suicidal ideation 11/08/2011 11/29/2013 Depression 11/08/2011 11/29/2013 HTN (hypertension) 11/08/2011 11/29/2013 Hypothyroidism 11/08/2011 11/29/2013 Postlaminectomy syndrome, lumbar region 09/04/19 10 11/29/2013 Pain in Joint, Lower Leg, right knee 09/03/2009 11/29/2013 Pain in joint, pelvic region and thigh 6 11/29/2013 documented as of this encounter (statuses as of 02/26/2022) [facility] History of Past illness Narrative* Problem Noted Date Resolved Date DERREK (acute kidney injury) 12/11/20192019 CAP (community acquired pneumonia) 12/11/2019 12/14/2019 Chest pain 03/19/2019 03/19/2019 Chest pain 08/08/2014 01/12/2019 Overview: - atypical, negative enzymes, no concerning EKG findings - in setting of appropriately managed CAD by history - previous cath and stress negative - Will go for nuclear scan this am and then can D/C home if Scan is OK MDD (major depressive disord er), recurrent severe, without psychosis 07/30/2013 11/29/2013 Drug overdose 07/09/2013 11/29/2013 Overview: Tramadol 20 tablets Recurrent major depression 06/25/201311/29 Chest pain at rest 07/20/2012 11/29/2013 Suicidal ideation 11/08/2011 11/29/2013 Depression 11/08/2011 11/29/2013 HTN (hypertension) 11/08/2011 11/29/2013 Hypothyroidism 11/08/2011 11/29/2013 Postlaminectomy syndrome, lumbar region 09/04/19 10 11/29/2013 Pain in Joint, Lower Leg, right knee 09/03/2009 11/29/2013 Pain in joint, pelvic region and thigh 6 11/29/2013 documented as of this encounter (statuses as of 02/27/2022) [facility] History of Past illness Narrative* Problem Noted Date Resolved Date DERREK (acute kidney injury) 12/11/20192019 CAP (community acquired pneumonia) 12/11/2019 12/14/2019 Chest pain 03/19/2019 03/19/2019 Chest pain 08/08/2014 01/12/2019 Overview: - atypical, negative enzymes, no concerning EKG findings - in setting of appropriately managed CAD by history - previous cath and stress negative - Will go for nuclear scan this am and then can D/C home if Scan is OK MDD (major depressive disord er), recurrent severe, without psychosis 07/30/2013 11/29/2013 Drug overdose 07/09/2013 11/29/2013 Overview: Tramadol 20 tablets Recurrent major depression 06/25/201311/29 Chest pain at rest 07/20/2012 11/29/2013 Suicidal ideation 11/08/2011 11/29/2013 Depression 11/08/2011 11/29/2013 HTN (hypertension) 11/08/2011 11/29/2013 Hypothyroidism 11/08/2011 11/29/2013 Postlaminectomy syndrome, lumbar region 09/04/19 10 11/29/2013 Pain in Joint, Lower Leg, right knee 09/03/2009 11/29/2013 Pain in joint, pelvic region and thigh 6 11/29/2013 documented as of this encounter (statuses as of 04/12/2022) [facility] History of Past illness Narrative* Problem Noted Date Resolved Date DERREK (acute kidney injury) 12/11/20192019 CAP (community acquired pneumonia) 12/11/2019 12/14/2019 Chest pain 03/19/2019 03/19/2019 Chest pain 08/08/2014 01/12/2019 Overview: - atypical, negative enzymes, no concerning EKG findings - in setting of appropriately managed CAD by history - previous cath and stress negative - Will go for nuclear scan this am and then can D/C home if Scan is OK MDD (major depressive disord er), recurrent severe, without psychosis 07/30/2013 11/29/2013 Drug overdose 07/09/2013 11/29/2013 Overview: Tramadol 20 tablets Recurrent major depression 06/25/201311/29 Chest pain at rest 07/20/2012 11/29/2013 Suicidal ideation 11/08/2011 11/29/2013 Depression 11/08/2011 11/29/2013 HTN (hypertension) 11/08/2011 11/29/2013 Hypothyroidism 11/08/2011 11/29/2013 Postlaminectomy syndrome, lumbar region 09/04/19 10 11/29/2013 Pain in Joint, Lower Leg, right knee 09/03/2009 11/29/2013 Pain in joint, pelvic region and thigh 6 11/29/2013 documented as of this encounter (statuses as of 08/02/2022) [facility] History of Past illness Narrative* Problem Noted Date Resolved Date DERREK (acute kidney injury) 12/11/20192019 CAP (community acquired pneumonia) 12/11/2019 12/14/2019 Chest pain 03/19/2019 03/19/2019 Chest pain 08/08/2014 01/12/2019 Overview: - atypical, negative enzymes, no concerning EKG findings - in setting of appropriately managed CAD by history - previous cath and stress negative - Will go for nuclear scan this am and then can D/C home if Scan is OK MDD (major depressive disord er), recurrent severe, without psychosis 07/30/2013 11/29/2013 Drug overdose 07/09/2013 11/29/2013 Overview: Tramadol 20 tablets Recurrent major depression 06/25/201311/29 Chest pain at rest 07/20/2012 11/29/2013 Suicidal ideation 11/08/2011 11/29/2013 Depression 11/08/2011 11/29/2013 HTN (hypertension) 11/08/2011 11/29/2013 Hypothyroidism 11/08/2011 11/29/2013 Postlaminectomy syndrome, lumbar region 09/04/19 10 11/29/2013 Pain in Joint, Lower Leg, right knee 09/03/2009 11/29/2013 Pain in joint, pelvic region and thigh 6 11/29/2013 documented as of this encounter (statuses as of 08/21/2022) [facility] History of Past illness Narrative* Problem Noted Date Resolved Date DERREK (acute kidney injury) 12/11/20192019 CAP (community acquired pneumonia) 12/11/2019 12/14/2019 Chest pain 03/19/2019 03/19/2019 Chest pain 08/08/2014 01/12/2019 Overview: - atypical, negative enzymes, no concerning EKG findings - in setting of appropriately managed CAD by history - previous cath and stress negative - Will go for nuclear scan this am and then can D/C home if Scan is OK MDD (major depressive disord er), recurrent severe, without psychosis 07/30/2013 11/29/2013 Drug overdose 07/09/2013 11/29/2013 Overview: Tramadol 20 tablets Recurrent major depression 06/25/201311/29 Chest pain at rest 07/20/2012 11/29/2013 Suicidal ideation 11/08/2011 11/29/2013 Depression 11/08/2011 11/29/2013 HTN (hypertension) 11/08/2011 11/29/2013 Hypothyroidism 11/08/2011 11/29/2013 Postlaminectomy syndrome, lumbar region 09/04/19 10 11/29/2013 Pain in Joint, Lower Leg, right knee 09/03/2009 11/29/2013 Pain in joint, pelvic region and thigh 6 11/29/2013 documented as of this encounter (statuses as of 11/20/2022) [facility] History of Past illness Narrative* Problem Noted Date Resolved Date DERREK (acute kidney injury) 12/11/20192019 CAP (community acquired pneumonia) 12/11/2019 12/14/2019 Chest pain 03/19/2019 03/19/2019 Chest pain 08/08/2014 01/12/2019 Overview: - atypical, negative enzymes, no concerning EKG findings - in setting of appropriately managed CAD by history - previous cath and stress negative - Will go for nuclear scan this am and then can D/C home if Scan is OK MDD (major depressive disord er), recurrent severe, without psychosis 07/30/2013 11/29/2013 Drug overdose 07/09/2013 11/29/2013 Overview: Tramadol 20 tablets Recurrent major depression 06/25/201311/29 Chest pain at rest 07/20/2012 11/29/2013 Suicidal ideation 11/08/2011 11/29/2013 Depression 11/08/2011 11/29/2013 HTN (hypertension) 11/08/2011 11/29/2013 Hypothyroidism 11/08/2011 11/29/2013 Postlaminectomy syndrome, lumbar region 09/04/19 10 11/29/2013 Pain in Joint, Lower Leg, right knee 09/03/2009 11/29/2013 Pain in joint, pelvic region and thigh 6 11/29/2013 documented as of this encounter (statuses as of 11/22/2022) [facility] History of Past illness Narrative* Problem Noted Date Diagnosed Date Resolved Date DERREK (acute kidney injury) 12/11/2019 CAP (community acquired pneumonia) 12/11/2019 12/14/2019 Chest pain 03/19/2019 03/19/2019 Chest pain 08/08/2014 01/12/2019 Overview: - atypical, negative enzymes, no concerning EKG findings - in setting of appropriately managed CAD by history - previous cath and stress negative - Will go for nuclear scan this am and then can D/C home if Scan is OK MDD (major depressive disord er), recurrent severe, without psychosis 07/30/2013 11/29/2013 Drug overdose 07/09/2013 11/29/2013 Overview: Tramadol 20 tablets Recurrent major depression 06/25/2013 0 11/29/2013 Chest pain at rest 07/20/2012 4 Suicidal ideation 11/08/2011 11/29/2013 Depression 11/08/2011 11/29/2013 HTN (hypertension) 11/08/2011 4 Hypothyroidism 11/08/2011 11/29/2013 Postlaminectomy syndrome, lumbar region 09/03/2009 11/29/2013 Pain in Joint, Lower Leg, right knee 09/03/2009 11/29/2013 Pain in joint, pelvic region and thigh 10/17/2005 11/29/2013 documented as of this encounter (statuses as of 01/21/2023) [facility] History of Present illness Narrative* Lisa Calero MA - 08/15/2019 1:50 PM EDTSummary: old cardiac testing from [facility] Lexiscan EKG Study Date: 08/11/19 Summary: Stress test EKG portion report: Reason for study: Chest pain, TIA 2012, coronary artery disease with OK 2005, pulmonary embolus, hypertension, hyperlipidemia, anemia, chronic pain syndrome, CVA 2016. Stress Protocol: Lexiscan stress protocol: caffeine free at least 12 hours prior to stress. Patient can not walk on treadmill due to poor exercise tolerance . Injected withLexiscan 0.4 mg bolus IV followed by rapid saline bolus then radio pharmaceutical injection IV followed by second rapid saline bolus. Patient was monitored for 3 minutes. Reason for termination of test: End of protocol. No chest pain noted. Transient flushing sensation and shortness of breath due to medication side effect were noted Analysis of stress test data: Rest: Heart rate 97 bpm. Blood pressure mm of Hg EKG: NSR 90 bpm with with nonspecific T wave abnormalities in anterolateral leads. Stress: Peak heart rate 105 bpm, 64 % MPHR, without any significant change in blood pressure Patient remained hemodynamically stable during chemical stress test . EKG: sinus rhythm with no significant ST-T abnormalities. No any significant cardiac arrthymias were noted. Impression: 1. No chest pain noted during chemical stress. 2. EKG is non diagnostic and not helpful for evaluation of ischemia due to sub maximal heart rate response 3. No any significant cardiac arrthymias noted. 5. Please see separate report of nuclear stress test portion. Disclaimer This dictation was created using voice recognition software. Phonetic and/or minor grammatical errors may exist. eSign Date and Time Dhiraj Monae MD Verified/Reviewed by 08/15/19 0542 Lexiscan EKG Study Date: 08/11/19 Summary: Stress test EKG portion report: Reason for study: Chest pain, TIA 2012, coronary artery disease with OK 2005, pulmonary embolus, hypertension, hyperlipidemia, anemia, chronic pain syndrome, CVA 2016. Stress Protocol: Lexiscan stress protocol: caffeine free at least 12 hours prior to stress. Patient can not walk on treadmill due to poor exercise tolerance . Injected withLexiscan 0.4 mg bolus IV followed by rapid saline bolus then radio pharmaceutical injection IV followed by second rapid saline bolus. Patient was monitored for 3 minutes. Reason for termination of test: End of protocol. No chest pain noted. Transient flushing sensation and shortness of breath due to medication side effect were noted Analysis of stress test data: Rest: Heart rate 97 bpm. Blood pressure mm of Hg EKG: NSR 90 bpm with with nonspecific T wave abnormalities in anterolateral leads. Stress: Peak heart rate 105 bpm, 64 % MPHR, without any significant change in blood pressure Patient remained hemodynamically stable during chemical stress test . EKG: sinus rhythm with no significant ST-T abnormalities. No any significant cardiac arrthymias were noted. Impression: 1. No chest pain noted during chemical stress. 2. EKG is non diagnostic and not helpful for evaluation of ischemia due to sub maximal heart rate response 3. No any significant cardiac arrthymias noted. 5. Please see separate report of nuclear stress test portion. Disclaimer This dictation was created using voice recognition software. Phonetic and/or minor grammatical errors may exist. eSign Date and Time Dhiraj Monae MD Verified/Reviewed by 08/15/19 0542 Adult Echocardiogram Report Name: NATALIE GERBER Study Date: 08/11/2019 10:08 Reason For Study: CHEST PAIN, PRESS/TIGHTNESS BSA: 2.4 m2 History: CHF,Chest Pain,Hypertension,CVA or TIA,Pulmonary emboli,CAD Interpretation Summary TECHNICALLY DIFFICULT STUDY D/T PT BODY HABITUS. LVEF 60 to 65% with normal LV diastolic function for patient's age. Echo contrast Definity was used for technically difficult study. Right ventricle is not well visualized. Reduced TAPSE suggests mild to moderate right ventricular dysfunction. No hemodynamically significant valvular aortic stenosis. No aortic regurgitation is present. There is trace mitral regurgitation. There is trace tricuspid regurgitation. Right ventricular systolic pressure is normal. Trace pulmonic valvular regurgitation. There is no pericardial effusion. Left Ventricle: The left ventricle is normal in size. There is normal left ventricular wall thickness. LVEF 60 to 65% with normal LV diastolic function for patient's age. Echo contrast Definity was used for technically difficult study. Left ventricular systolic function is normal. The left ventricular wall motion is normal. Left Atrium/Atrial Septum: The left atrium is borderline dilated. Right Atrium: The right atrium is mildly dilated. Right Ventricle: The right ventricle is not well visualized. Right ventricle is not well visualized. Reduced TAPSE suggests mild to moderate right ventricular dysfunction. Aortic Valve: There is trivial aortic sclerosis.;. The aortic valve is trileaflet. No hemodynamically significant valvular aortic stenosis. No aortic regurgitation is present. Mitral Valve: The mitral valve is grossly normal. There is no mitral valve stenosis. There is trace mitral regurgitation. Tricuspid Valve: The tricuspid valve is not well visualized, but is grossly normal. There is trace tricuspid regurgitation. Right ventricular systolic pressure is normal. Pulmonic Valve: The pulmonic valve is not well visualized. Grossly normal pulmonic valve. Trace pulmonic valvular regurgitation. Arteries: The aortic root is normal size. The pulmonary is not well visualized. Venous: The inferior vena cava is normal in size, with a normal collapsibility index. Pericardium/Pleura: There is no pericardial effusion. MMode/2D Measurements & Calculations MV excursion: Ao root diam: LA/Ao: 1.5 EF (MOD-sp4): 1.6 cm 3.0 cm LVOT diam: 60.6 % Ao root area: 2.2 cm 7.3 cm2 ACS: 2.0 cm LA dimension: 4.4 cm Time Measurements Aortic R-R: 0.69 sec Aortic HR: 87.1 BPM Doppler Measurements & Calculations MV E max gina: MV max PG: MV dec Ao V2 max: 96.2 cm/sec 4.6 mmHg time: 135.0 cm/sec MV A max gina: MV mean P.18 sec Ao max P.0 cm/sec 2.6 mmHg 7.3 mmHg MV E/A: 0.88 MVA(VTI): Ao max PG (full): 2.6 cm2 4.3 mmHg Ao mean P.9 mmHg Ao mean PG (full): 2.0 mmHg Ao V2 VTI: 23.8 cm CLARI(I,A): 2.6 cm2 CLARI(I,D): 2.6 cm2 CLARI(V,A): 2.4 cm2 CLARI(V,D): 2.4 cm2 LV V1 max: CO(Ao): PA max PG: TR max gina: 86.5 cm/sec 15.0 l/min 8.2 mmHg 113.1 cm/sec LV V1 mean: CI(Ao): TR max P.1 cm/sec 6.2 l/min/m2 5.1 mmHg LV V1 VTI: SV(Ao): RVSP(TR): 16.9 cm 172.7 ml 15.1 mmHg SI(Ao): 71.1 ml/m2 CO(LVOT): 5.4 l/min CI(LVOT): 2.2 l/min/m2 SI(LVOT): 25.6 ml/m2 RAP systole: 10.0 mmHg Reviewed/Verified By: Dhiraj Monae 08/11/2019 03:26 PM Ordering Physician: Cecy Harrison Referring Physician: NO PCP GIVEN Performed By: [facility] PATIENT NAME: NATALIE GERBER [address] [place] MEDICAL REC #: [id number] [place] [address] ADMIT DATE: 08/10/19 DISCHARGE DATE: ATTENDING PHY: Lisa Montez DO ECHOCARDIOGRAM [facility] Narrative * Satya Boyce DO - 06/24/2019 10:03 AM EST Addendum dictated documented in this encounterSUM[facility] Work Phone: [phone] History of Present illness Narrative* Dominga Villela DTR - 06/24/2019 7:22 AM EST Nutrition update completed. Chart reviewed. Patient to be monitored and followed by the diet physical therapy technician. * Melvin Hardin RN - 06/24/2019 1:07 AM EST Pt refused lab work. Dr. Boyce notified * Abdoulaye Ricks PT - 06/23/2019 11:47 AM EST Physical Therapy Facility/Department: [facility] Daily Treatment Note NAME: Natalie Gerber : 1960 Date of Service: 06/23/2019 Discharge Recommendations: Subacute/Intermediate Facility Assessment Body structures, Functions, Activity limitations: Decreased functional mobility ;Decreased balance;Decreased strength;Increased pain;Decreased endurance Assessment: pt cooperative and pleasant; amb lmited by pain; pt agreeable and compliant with performing exercises in the chair; pt at high risk for falls; recommend SNF level therapies post acute care. Prognosis: Fair Decision Making: Low Complexity REQUIRES PT FOLLOW UP: Yes Activity Tolerance Activity Tolerance: Patient limited by pain;Patient limited by fatigue;Patient limited by endurance Patient Diagnosis(es): The primary encounter diagnosis was Sciatica of left side. A diagnosis of Recurrent falls was also pertinent to this visit. has a past medical history of Anemia, Anemia, Arthritis, CAD (coronary artery disease), CAD (coronary artery disease), CHF (congestive heart failure) ([facility]), Depression, Diverticulitis, Diverticulosis, GERD (gastroesophageal reflux disease), History of pulmonary embolus (PE), Hyperlipidemia, Hypertension, OK, old, Myocardial infarct (HCC), myocardial infarction, LISA on CPAP, Pain, Pneumonia, Suicide ([facility]), Thyroid disease, and Unspecified cerebral artery occlusion with cerebral infarction. has a past surgical history that includes hip surgery; back surgery; hernia repair; ECHO Compl W Dop Color Flow (02/04/2012); Cardiac catheterization; Cardiac catheterization (05/12/2013); orthopedic surgery; Knee arthroscopy; back surgery; hernia repair; Cholecystectomy; and joint replacement. Restrictions Restrictions/Precautions Restrictions/Precautions: Fall Risk Subjective General Chart Reviewed: Yes Subjective Subjective: pt up in chair; pleasant and cooperative; states he slept in chair due to back pain Pain Screening Patient Currently in Pain: Yes Pain Assessment Patient's Stated Pain Goal: 6 Pain Location: Back;Leg Pain Orientation: Left Vital Signs Patient Currently in Pain: Yes Orientation Orientation Overall Orientation Status: Within Normal Limits Cognition Objective Transfers Sit to Stand: Supervision Stand to sit: Supervision Comment: unable to bear full weight on LLE due to pain Ambulation Ambulation?: Yes Ambulation 1 Surface: level tile Device: Rolling Walker Assistance: Minimal assistance Gait Deviations: Slow Cecy;Decreased step length Distance: 6 steps Comments: decreased stance on LLE due to pain; pt leans with elbows on ww due to LBP Balance Posture: Fair Sitting - Static: Good Sitting - Dynamic: Good Standing - Dynamic: Fair Exercises Hip Flexion: seated flexion Edmundo x10 reps Knee Long Arc Quad: Edmundo x10 reps Ankle Pumps: and ankle circles both directions Edmundo x10 reps Upper Extremity: shoulder flexion and arm circles both directions Edmundo x10 reps AM-PAC Score AM-PAC Inpatient Mobility Raw Score : 16 (06/23/191136) AM-PAC Inpatient T-Scale Score : 40.78 (06/23/191136) Mobility Inpatient CMS 0-100% Score: 54.16 (06/23/191136) Mobility Inpatient CMS G-Code Modifier : CK (06/23/191136) Goals Short term goals Time Frame for Short term goals: 2 weeks Short term goal 1: Bed mobility Indep - NOT ADDRESSED Short term goal 2: Transfers Indep - PROGRESSING Short term goal 3: Gait 50 feet with ww and mod Indep - NOT MET Short term goal 4: 7 steps with rail and supervision - NOT ADDRESSED Patient Goals Patient goals : None given Plan Plan Times per week: 5x/week Plan weeks: 2 weeks Current Treatment Recommendations: Strengthening, Transfer Training, Endurance Training, Balance Training, Gait Training, Home Exercise Program, Safety Education & Training, Functional Mobility Training, Stair training Safety Devices Type of devices: All fall risk precautions in place, Patient at risk for falls, Call light within reach, Gait belt, Left in chair Therapy Time Individual Concurrent Group Co-treatment Time In 1122 Time Out 1132 Minutes 10 Timed Code Treatment Minutes: 10 Minutes(Treatment procedure) Abdoulaye Ricks PT * Satya Boyce DO - 06/22/2019 8:23 AM EST Hospitalist Progress Note Subjective: Admit Date: PCP: SATYA BOYCE DO Advance Directive: No Order Interval History: Chart reviewed and d./w staff Pain remains his main issues Appetite is better Refused labs today DIET GENERAL: Intake/Output Summary (Last 24 hours) at 06/22/2019 0824 Last data filed at 06/21/2019 2207 Gross per 24 hour Intake 740 ml Output 1125 ml Net -385 ml Intake/Output Summary (Last 24 hours) Medications: Current Facility-Administered Medications Medication Dose Route Frequency Provider Last Rate Last Dose methylphenidate (RITALIN) tablet 20 mg 20 mg Oral BID WC Radha Lujan, RN 20 mg at 06/21/19 1710 sodium chloride flush 0.9 % injection 3 mL 3 mL Intravenous Q8H Sonia Sweeney MD 3 mL at 06/22/19 0432 aspirin EC tablet 81 mg 81 mg Oral Daily Hernadez S Bonyo, DO 81 mg at 06/21/19 0836 atorvastatin (LIPITOR) tablet 20 mg 20 mg Oral Nightly Hernadez S Bonyo, DO 20 mg at 06/21/192027 acetaminophen (TYLENOL) tablet 650 mg 650 mg Oral Q4H PRN Hernadez S Bonyo, DO carvedilol (COREG) tablet 6.25 mg 6.25 mg Oral Daily Hernadez S Bonyo, DO 6.25 mg at 06/21/19 0836 citalopram (CELEXA) tablet 20 mg 20 mg Oral Daily Hernadez S Bonyo, DO 20 mg at 06/21/19 0836 clopidogrel (PLAVIX) tablet 75 mg 75 mg Oral Daily Hernadez S Bonyo, DO 75 mg at 06/21/19 0836 furosemide (LASIX) tablet 20 mg 20 mg Oral Daily Hernadez S Bonyo, DO 20 mg at 06/21/19 0837 levothyroxine (SYNTHROID) tablet 25 mcg 25 mcg Oral Daily Hernadez S Bonyo, DO 25 mcg at 06/22/19 0610 pantoprazole (PROTONIX) tablet 40 mg 40 mg Oral QAM AC Hernadez S Bonyo, DO 40 mg at 06/22/19 0437 oxyCODONE (ROXICODONE) immediate release tablet 5 mg 5 mg Oral Q6H PRN Hernadez S Bonyo, DO 5 mg at 06/22/19 0433 QUEtiapine (SEROQUEL) tablet 100 mg 100 mg Oral Nightly Hernadez S Bonyo, DO 100 mg at 06/21/192027 enoxaparin (LOVENOX) injection 40 mg 40 mg Subcutaneous Daily Hernadez S Bonyo, DO 40 mg at 06/21/19 0836 promethazine (PHENERGAN) injection 12.5 mg 12.5 mg Intravenous Q4H PRN Hernadez S Bonyo, DO melatonin tablet 3 mg 3 mg Oral Nightly PRN Hernadez S Bonyo, DO diphenhydrAMINE (BENADRYL) tablet 25 mg 25 mg Oral Q6H PRN Hernadez S Bonyo, DO LABS: CBC with Differential: Lab Results Component Value Date WBC 6.0 06/21/2019 WBC 8.8 05/16/2018 RBC 3.89 06/21/2019 HGB 10.8 06/21/2019 HCT 33.3 06/21/2019 PLT 212 06/21/2019 MCV 85.7 06/21/2019 MCH 27.7 06/21/2019 MCHC 32.3 06/21/2019 RDW 16.3 06/21/2019 NRBC 6 01/06/2013 SEGSPCT 76.7% 09/18/2015 BANDSPCT 1 01/06/2013 METASPCT 3 01/06/2013 LYMPHOPCT 29.4 06/21/2019 MONOPCT 5.1 06/21/2019 MONOPCT 4.7 05/16/2018 BASOPCT 0.8 06/21/2019 BASOPCT 0.5 05/16/2018 MONOSABS 0.3 06/21/2019 MONOSABS 0.41 05/16/2018 LYMPHSABS 1.8 06/21/2019 LYMPHSABS 1.68 05/16/2018 EOSABS 0.2 06/21/2019 EOSABS 0.13 05/16/2018 BASOSABS 0.1 06/21/2019 BASOSABS 0.04 05/16/2018 DIFFTYPE NOT REPORTED 11/30/2013 CMP: Lab Results Component Value Date NA 140 06/21/2019 K 3.6 06/21/2019 CL 106 06/21/2019 CO2 26 06/21/2019 BUN 7 06/21/2019 CREATININE 0.66 06/21/2019 GFRAA >60 05/17/2018 AGRATIO 0.8 09/18/2015 LABGLOM >60 05/17/2018 GLUCOSE 139 06/21/2019 PROT 6.8 06/21/2019 LABALBU 3.4 06/21/2019 LABALBU 3.9 05/15/2018 CALCIUM 8.9 06/21/2019 BILITOT 0.3 06/21/2019 ALKPHOS 154 06/21/2019 AST 22 06/21/2019 ALT 16 06/21/2019 Objective: Vitals: Vitals: 06/22/19 0700 BP: Pulse: 63 Resp: Temp: SpO2: General appearance: alert and cooperative with exam HEENT: PERRL, mucous membranes are moist, neck supple Lungs: Lungs have adv sounds Heart:: Regular rate and rhythm with no murmurs or gallops Abdomen: Soft, non-tender with no guarding or rebound, no palpable masses Extremities: Good ROM all 4 extremities, no edema, distal pulses intact Neurologic: No obvious focal neurologic deficits. Psychologic: Alert and Oriented to Person, Place, and Time Skin: No rashes Assessment: Active Problems: Patient Active Problem List Diagnosis GERD (gastroesophageal reflux disease) Hypertension Osteoarthritis Acute left-sided weakness Hypothyroidism Dyslipidemia Morbid obesity (HCC) Mood disorder (HCC) Chronic back pain Chest pain HTN (hypertension) HLD (hyperlipidemia) Obesity Tobacco abuse MDD (major depressive disorder) Meralgia paresthetica of left side Stroke-like symptoms Anemia Leukocytosis History of stroke AVN (avascular necrosis of bone) (HCC) Back pain Recurrent falls Plan: Depression WITH?SI: patient denies any thoughts of hurting himself or anyone. He was apparently very depressed when his mother in 1994/that is when he ?attemped. IN MY PROFESSION OPINION:PAT IS NOT SUICIDAL Continue current RX Discharge planning: In progress SATYA BOYCE DO * Deb Garay RN - 06/22/2019 4:15 AM EST Pt refused blood draws. * Radha Mathur - 06/21/2019 11:51 AM EST Occupational Therapy Occupational Therapy Initial Assessment Date: 06/21/2019 Patient Name: Natalie Gerber : 1960 Date of Service: 06/21/2019 Discharge Recommendations: Subacute/Intermediate Facility Assessment Performance deficits / Impairments: Decreased functional mobility ;Decreased ADL status;Decreased safe awareness;Decreased balance;Decreased posture;Decreased sensation;Decreased high-level IADLs;Decreased endurance Assessment: OT eval complete, deficits as above. Pt unable to put weight through L LE due to pain, not currently at baseline. Recommend upon d/c to SNF for further therapy to increase independence w/functional tasks and improve safety. Prognosis: Good Decision Making: Low Complexity OT Education: OT Role;Plan of Care;Transfer Training Barriers to Learning: adamant on performing transfer his way, would not allow therapist to move table to position rollator directly in front of pt. REQUIRES OT FOLLOW UP: Yes Activity Tolerance Activity Tolerance: Patient limited by pain Activity Tolerance: unable to bear weight through L LE Safety Devices Safety Devices in place: Yes Type of devices: Gait belt;Call light within reach;Left in bed(seated EOB w/ tray table in front ) Patient Diagnosis(es): The primary encounter diagnosis was Sciatica of left side. A diagnosis of Recurrent falls was also pertinent to this visit. has a past medical history of Anemia, Anemia, Arthritis, CAD (coronary artery disease), CAD (coronary artery disease), CHF (congestive heart failure) ([facility]), Depression, Diverticulitis, Diverticulosis, GERD (gastroesophageal reflux disease), History of pulmonary embolus (PE), Hyperlipidemia, Hypertension, OK, old, Myocardial infarct (HCC), myocardial infarction, LISA on CPAP, Pain, Pneumonia, Suicide ([facility]), Thyroid disease, and Unspecified cerebral artery occlusion with cerebral infarction. has a past surgical history that includes hip surgery; back surgery; hernia repair; ECHO Compl W Dop Color Flow (02/04/2012); Cardiac catheterization; Cardiac catheterization (05/12/2013); orthopedic surgery; Knee arthroscopy; back surgery; hernia repair; Cholecystectomy; and joint replacement. Restrictions Restrictions/Precautions Restrictions/Precautions: Fall Risk Subjective General Chart Reviewed: Yes Patient assessed for rehabilitation services?: Yes Additional Pertinent Hx: CAD, CHF, Obesity, depression, suicide attempt Family / Caregiver Present: No Diagnosis: Pt admitted for recurrent falls. Pt recently d/c from SNF on 06/16/2019, fell in parkinglot of [employer] after L LE giving out on him and hit his head. CT of head and spine (-) for acuteprocess. Subjective Subjective: Pt seated EOB, flat affect, agreable to OT eval. Pt adamant on performing sit to stand his way. Patient Currently in Pain: Yes(5/10 pain in lower back, L butocks, and L LE) Social/Functional History Social/Functional History Lives With: Alone Type of Home: House Home Layout: Two level, Bed/Bath upstairs(4 steps between each floor) Home Access: Stairs to enter with rails Entrance Stairs - Number of Steps: 3 Bathroom Shower/Tub: Tub/Shower unit, Shower chair with back Bathroom Toilet: Standard Home Equipment: 4 wheeled walker(rollator) Receives Help From: Family ADL Assistance: Independent Homemaking Assistance: Independent Homemaking Responsibilities: No Ambulation Assistance: Independent(w/ rollator) Transfer Assistance: Independent Additional Comments: Recently d/c from SNF, have had 2 falls, poor ability to manage at home since d/c. Objective Vision: ((+) badge, (+) clock) Vision Exceptions: Wears glasses at all times Hearing: Within functional limits Orientation Overall Orientation Status: Within Functional Limits Observation/Palpation Posture: Fair Observation: flexes trunk and props forearms on rollator when standing Balance Sitting Balance: Supervision Standing Balance: Stand by assistance(w/ rollator, was unable to put weight through L LE) ADL UE Dressing: Stand by assistance(anticipate) LE Dressing: Stand by assistance(fixed socks seated EOB, Figure 4 to fix R sock, flexed at trunk tofix L sock ) Tone RUE RUE Tone: Normotonic Tone LUE LUE Tone: Normotonic Coordination Movements Are Fluid And Coordinated: Yes((+) serial opposition) Bed mobility Scooting: Supervision(scooted sideways on bed) Comment: not formally assessed, seated EOB Transfers Sit to stand: Stand by assistance(w/ Rollator) Stand to sit: Stand by assistance(w/ Rollator) Transfer Comments: scooted to end of bed and performed sit to stand w/ rollator close but on side. Adamant on doing this way and not letting SOT move tray table out of the way to get rollator in front. Cognition Overall Cognitive Status: WFL((+) president, (+) 911) Perception Overall Perceptual Status: WFL((+) finger to nose) Sensation Overall Sensation Status: Impaired(tingling in L LE per pt chronic issue but worse today then has been) LUE AROM (degrees) LUE AROM : WFL RUE AROM (degrees) RUE AROM : WFL LUE Strength Gross LUE Strength: WNL L Shoulder Flex: 5/5 L Hand General: 4+/5 RUE Strength Gross RUE Strength: WNL R Shoulder Flex: 5/5 R Hand General: 4+/5 Plan Plan Times per week: 3-5x/week Plan weeks: 2 weeks Current Treatment Recommendations: Balance Training, Functional Mobility Training, Endurance Training, Home Management Training, Self-Care / ADL, Patient/Caregiver Education & Training, Safety Education & Training, Strengthening, Pain Management Patient's Occupational Therapy Plan of Care [facility]. Goals and/or treatment plan was established in collaboration with patient/family/other representatives. Plan to be activated only if the patient is admitted or for assessing discharge needs. OutComes Score AM-PAC Daily Activity Inpatient How much help for putting on and taking off regular lower body clothing?: A Little How much help for Bathing?: A Little How much help for Toileting?: A Little How much help for putting on and taking off regular upper body clothing?: A Little How much help for taking care of personal grooming?: A Little How much help for eating meals?: None AM-PAC Inpatient Daily Activity Raw Score: 19 AM-PAC Inpatient ADL T-Scale Score : 40.22 ADL Inpatient CMS 0-100% Score: 42.8 ADL Inpatient CMS G-Code Modifier : CK AM-PAC Score AM-PAC Inpatient Daily Activity Raw Score: 19 (06/21/191131) AM-PAC Inpatient ADL T-Scale Score : 40.22 (06/21/19 113) ADL Inpatient CMS 0-100% Score: 42.8 (06/21/19 113) ADL Inpatient CMS G-Code Modifier : CK (06/21/191131) Goals Short term goals Time Frame for Short term goals: 2 weeks Short term goal 1: Pt will complete grooming task standing at sink w/ modified independent. Short term goal 2: Pt will complete LB dressing w/ modified independent. Short term goal 3: Pt will complete functional transfers w/ modified independent and good safety. Patient Goals Patient goals : none stated Therapy Time Individual Concurrent Group Co-treatment Time In 1048 Time Out 1100 Minutes 12 ESTEFANIA Enamorado * Satya Boyce DO - 06/21/2019 8:37 AM EST Hospitalist Progress Note Subjective: Admit Date: PCP: SATYA BOYCE DO Advance Directive: No Order Interval History: Chart reviewed and d./w staff Pain remains his main issues DIET GENERAL: reg Intake/Output Summary (Last 24 hours) Intake/Output Summary (Last 24 hours) at 06/21/2019 0838 Last data filed at 06/21/2019 0327 Gross per 24 hour Intake 640 ml Output 1875 ml Net -1235 ml Medications: Current Facility-Administered Medications Medication Dose Route Frequency Provider Last Rate Last Dose methylphenidate (RITALIN) tablet 20 mg 20 mg Oral BID Radha Lujan, RN 20 mg at 06/20/19 1636 sodium chloride flush 0.9 % injection 3 mL 3 mL Intravenous Q8H Sonia Sweeney MD 3 mL at 06/20/192143 aspirin EC tablet 81 mg 81 mg Oral Daily Hernadez S Bonyo, DO 81 mg at 06/20/19912 atorvastatin (LIPITOR) tablet 20 mg 20 mg Oral Nightly Hernadez S Bonyo, DO 20 mg at 06/20/192143 acetaminophen (TYLENOL) tablet 650 mg 650 mg Oral Q4H PRN Hernadez S Bonyo, DO carvedilol (COREG) tablet 6.25 mg 6.25 mg Oral Daily Hernadez S Bonyo, DO 6.25 mg at 06/20/19912 citalopram (CELEXA) tablet 20 mg 20 mg Oral Daily Hernadez S Bonyo, DO 20 mg at 06/20/19912 clopidogrel (PLAVIX) tablet 75 mg 75 mg Oral Daily Hernadez S Bonyo, DO 75 mg at 06/20/19912 furosemide (LASIX) tablet 20 mg 20 mg Oral Daily Hernadez S Bonyo, DO 20 mg at 06/20/19912 levothyroxine (SYNTHROID) tablet 25 mcg 25 mcg Oral Daily Hernadez S Bonyo, DO 25 mcg at 06/20/19 045 pantoprazole (PROTONIX) tablet 40 mg 40 mg Oral QAM AC Hernadez S Bonyo, DO 40 mg at 06/20/19 045 oxyCODONE (ROXICODONE) immediate release tablet 5 mg 5 mg Oral Q6H PRN Hernadez S Bonyo, DO 5 mg at 06/21/19 035 QUEtiapine (SEROQUEL) tablet 100 mg 100 mg Oral Nightly Hernadez S Bonyo, DO 100 mg at 06/19/192025 enoxaparin (LOVENOX) injection 40 mg 40 mg Subcutaneous Daily Hernadez S Bonyo, DO 40 mg at 06/20/19912 promethazine (PHENERGAN) injection 12.5 mg 12.5 mg Intravenous Q4H PRN Hernadez S Bonyo, DO melatonin tablet 3 mg 3 mg Oral Nightly PRN Hernadez S Bonyo, DO diphenhydrAMINE (BENADRYL) tablet 25 mg 25 mg Oral Q6H PRN Satya Boyce, DO LABS: CBC with Differential: Lab Results Component Value Date WBC 6.0 06/21/2019 WBC 8.8 05/16/2018 RBC 3.89 06/21/2019 HGB 10.8 06/21/2019 HCT 33.3 06/21/2019 PLT 212 06/21/2019 MCV 85.7 06/21/2019 MCH 27.7 06/21/2019 MCHC 32.3 06/21/2019 RDW 16.3 06/21/2019 NRBC 6 01/06/2013 SEGSPCT 76.7% 09/18/2015 BANDSPCT 1 01/06/2013 METASPCT 3 01/06/2013 LYMPHOPCT 29.4 06/21/2019 MONOPCT 5.1 06/21/2019 MONOPCT 4.7 05/16/2018 BASOPCT 0.8 06/21/2019 BASOPCT 0.5 05/16/2018 MONOSABS 0.3 06/21/2019 MONOSABS 0.41 05/16/2018 LYMPHSABS 1.8 06/21/2019 LYMPHSABS 1.68 05/16/2018 EOSABS 0.2 06/21/2019 EOSABS 0.13 05/16/2018 BASOSABS 0.1 06/21/2019 BASOSABS 0.04 05/16/2018 DIFFTYPE NOT REPORTED 11/30/2013 CMP: Lab Results Component Value Date NA 140 06/21/2019 K 3.6 06/21/2019 CL 106 06/21/2019 CO2 26 06/21/2019 BUN 7 06/21/2019 CREATININE 0.66 06/21/2019 GFRAA >60 05/17/2018 AGRATIO 0.8 09/18/2015 LABGLOM >60 05/17/2018 GLUCOSE 139 06/21/2019 PROT 6.8 06/21/2019 LABALBU 3.4 06/21/2019 LABALBU 3.9 05/15/2018 CALCIUM 8.9 06/21/2019 BILITOT 0.3 06/21/2019 ALKPHOS 154 06/21/2019 AST 22 06/21/2019 ALT 16 06/21/2019 Objective: Vitals: Vitals: 06/21/19 0743 BP: (!) 154/81 Pulse: 71 Resp: 16 Temp: 96.8 F (36 C) SpO2: 96% General appearance: alert and cooperative with exam HEENT: PERRL, mucous membranes are moist, neck supple Lungs: Lungs have adv sounds Heart:: Regular rate and rhythm with no murmurs or gallops Abdomen: Soft, non-tender with no guarding or rebound, no palpable masses Extremities: Good ROM all 4 extremities, no edema, distal pulses intact Neurologic: No obvious focal neurologic deficits. Psychologic: Alert and Oriented to Person, Place, and Time Skin: No rashes Assessment: Active Problems: Patient Active Problem List Diagnosis GERD (gastroesophageal reflux disease) Hypertension Osteoarthritis Acute left-sided weakness Hypothyroidism Dyslipidemia Morbid obesity (HCC) Mood disorder (HCC) Chronic back pain Chest pain HTN (hypertension) HLD (hyperlipidemia) Obesity Tobacco abuse MDD (major depressive disorder) Meralgia paresthetica of left side Stroke-like symptoms Anemia Leukocytosis History of stroke AVN (avascular necrosis of bone) (HCC) Back pain Recurrent falls Plan: Continue current RX Discharge planning: Pending/wants to go to a new facility SATYA BOYCE DO * Deb Garay RN - 06/21/2019 4:06 AM EST Pt refused me change his IV site. He told me his IVs have to be placed by Ultrasound. * Satya Boyce DO - 06/20/2019 11:46 AM EST Hospitalist Progress Note Subjective: Admit Date: PCP: SATYA BOYCE DO Advance Directive: No Order Interval History: Admitted s/p fall at [facility] [address] Chart reviewed and d/w staff Pain/weakness remain his main concerns Refused labs this am DIET GENERAL: reg Intake/Output Summary (Last 24 hours) Intake/Output Summary (Last 24 hours) at 06/20/2019 1147 Last data filed at 06/20/2019 1045 Gross per 24 hour Intake 740 ml Output 1250 ml Net -510 ml Medications: Current Facility-Administered Medications Medication Dose Route Frequency Provider Last Rate Last Dose methylphenidate (RITALIN) tablet 20 mg 20 mg Oral BID Radha Lujan RN 20 mg at 06/20/19912 sodium chloride flush 0.9 % injection 3 mL 3 mL Intravenous Q8H Sonia Sweeney MD 3 mL at 06/19/192026 aspirin EC tablet 81 mg 81 mg Oral Daily Hernadez S Bonyo, DO 81 mg at 06/20/19912 atorvastatin (LIPITOR) tablet 20 mg 20 mg Oral Nightly Hernadez S Bonyo, DO 20 mg at 06/19/192026 acetaminophen (TYLENOL) tablet 650 mg 650 mg Oral Q4H PRN Hernadez S Bonyo, DO carvedilol (COREG) tablet 6.25 mg 6.25 mg Oral Daily Hernadez S Bonyo, DO 6.25 mg at 06/20/19912 citalopram (CELEXA) tablet 20 mg 20 mg Oral Daily Hernadez S Bonyo, DO 20 mg at 06/20/19912 clopidogrel (PLAVIX) tablet 75 mg 75 mg Oral Daily Hernadez S Bonyo, DO 75 mg at 06/20/19912 furosemide (LASIX) tablet 20 mg 20 mg Oral Daily Hernadez S Bonyo, DO 20 mg at 06/20/19912 levothyroxine (SYNTHROID) tablet 25 mcg 25 mcg Oral Daily Hernadez S Bonyo, DO 25 mcg at 06/20/19449 pantoprazole (PROTONIX) tablet 40 mg 40 mg Oral QAM AC Hernadez S Bonyo, DO 40 mg at 06/20/19449 oxyCODONE (ROXICODONE) immediate release tablet 5 mg 5 mg Oral Q6H PRN Hernadez S Bonyo, DO 5 mg at 06/20/19914 QUEtiapine (SEROQUEL) tablet 100 mg 100 mg Oral Nightly Hernadez S Bonyo, DO 100 mg at 06/19/192025 enoxaparin (LOVENOX) injection 40 mg 40 mg Subcutaneous Daily Hernadez S Bonyo, DO 40 mg at 06/20/19912 promethazine (PHENERGAN) injection 12.5 mg 12.5 mg Intravenous Q4H PRN Hernadez S Bonyo, DO melatonin tablet 3 mg 3 mg Oral Nightly PRN Hernadez S Bonyo, DO diphenhydrAMINE (BENADRYL) tablet 25 mg 25 mg Oral Q6H PRN Hernadez S Bonyo, DO LABS: CBC with Differential: Lab Results Component Value Date WBC 5.2 06/19/2019 WBC 8.8 05/16/2018 RBC 3.86 06/19/2019 HGB 10.6 06/19/2019 HCT 33.5 06/19/2019 PLT 217 06/19/2019 MCV 86.8 06/19/2019 MCH 27.6 06/19/2019 MCHC 31.8 06/19/2019 RDW 16.5 06/19/2019 NRBC 6 01/06/2013 SEGSPCT 76.7% 09/18/2015 BANDSPCT 1 01/06/2013 METASPCT 3 01/06/2013 LYMPHOPCT 29.0 06/19/2019 MONOPCT 5.7 06/19/2019 MONOPCT 4.7 05/16/2018 BASOPCT 0.6 06/19/2019 BASOPCT 0.5 05/16/2018 MONOSABS 0.3 06/19/2019 MONOSABS 0.41 05/16/2018 LYMPHSABS 1.5 06/19/2019 LYMPHSABS 1.68 05/16/2018 EOSABS 0.1 06/19/2019 EOSABS 0.13 05/16/2018 BASOSABS 0.0 06/19/2019 BASOSABS 0.04 05/16/2018 DIFFTYPE NOT REPORTED 11/30/2013 CMP: Lab Results Component Value Date NA 139 06/19/2019 K 3.9 06/19/2019 CL 105 06/19/2019 CO2 26 06/19/2019 BUN 9 06/19/2019 CREATININE 0.74 06/19/2019 GFRAA >60 05/17/2018 AGRATIO 0.8 09/18/2015 LABGLOM >60 05/17/2018 GLUCOSE 124 06/19/2019 PROT 7.0 06/19/2019 LABALBU 3.6 06/19/2019 LABALBU 3.9 05/15/2018 CALCIUM 8.4 06/19/2019 BILITOT 0.3 06/19/2019 ALKPHOS 153 06/19/2019 AST 26 06/19/2019 ALT 19 06/19/2019 Objective: Vitals: Vitals: 06/20/19 1137 BP: (!) 151/84 Pulse: 63 Resp: Temp: SpO2: General appearance: alert and cooperative with exam HEENT: PERRL, mucous membranes are moist, neck supple Lungs: Lungs have adv sounds Heart:: Regular rate and rhythm with no murmurs or gallops Abdomen: Soft, non-tender with no guarding or rebound, no palpable masses Extremities: Good ROM all 4 extremities, no edema, distal pulses intact Neurologic: No obvious focal neurologic deficits. Psychologic: Alert and Oriented to Person, Place, and Time Skin: No rashes Assessment: Active Problems: Patient Active Problem List Diagnosis GERD (gastroesophageal reflux disease) Hypertension Osteoarthritis Acute left-sided weakness Hypothyroidism Dyslipidemia Morbid obesity (HCC) Mood disorder (HCC) Chronic back pain Chest pain HTN (hypertension) HLD (hyperlipidemia) Obesity Tobacco abuse MDD (major depressive disorder) Meralgia paresthetica of left side Stroke-like symptoms Anemia Leukocytosis History of stroke AVN (avascular necrosis of bone) (HCC) Back pain Recurrent falls Plan: Continue current RX Discharge planning: Next 24 to 48 hours SATYA BOYCE DO * Deb Garay RN - 06/20/2019 5:12 AM EST Pt refused blood lab draws this morning. * Laura Curry DTR - 06/19/2019 11:36 AM EST Nutrition rescreen completed. Chart reviewed. Patient to be monitored and followed by the diet physical therapy technician. * Satya Boyce DO - 06/19/2019 8:30 AM EST Hospitalist Progress Note Subjective: Admit Date: PCP: SATYA BOYCE DO Advance Directive: No Order Interval History: Admitted s/p fall at [facility] [address] Chart reviewed and d/w staff Continues to c/o 03/11 pain/weakness/inability to walk DIET GENERAL: Intake/Output Summary (Last 24 hours) at 06/19/2019 0832 Last data filed at 06/19/2019 0744 Gross per 24 hour Intake 0 ml Output 1100 ml Net -1100 ml Intake/Output Summary (Last 24 hours) Medications: Current Facility-Administered Medications Medication Dose Route Frequency Provider Last Rate Last Dose methylphenidate (RITALIN) tablet 20 mg 20 mg Oral BID WC Radha Lujan, RN 20 mg at 06/18/19 1613 sodium chloride flush 0.9 % injection 3 mL 3 mL Intravenous Q8H Sonia Sweeney MD 3 mL at 06/18/19 1255 aspirin EC tablet 81 mg 81 mg Oral Daily Hernadez S Bonyo, DO 81 mg at 06/18/19905 atorvastatin (LIPITOR) tablet 20 mg 20 mg Oral Nightly Hernadez S Bonyo, DO 20 mg at 06/18/192050 acetaminophen (TYLENOL) tablet 650 mg 650 mg Oral Q4H PRN Hernadez S Bonyo, DO carvedilol (COREG) tablet 6.25 mg 6.25 mg Oral Daily Hernadez S Bonyo, DO 6.25 mg at 06/18/19905 citalopram (CELEXA) tablet 20 mg 20 mg Oral Daily Hernadez S Bonyo, DO 20 mg at 06/18/19905 clopidogrel (PLAVIX) tablet 75 mg 75 mg Oral Daily Hernadez S Bonyo, DO 75 mg at 06/18/19905 furosemide (LASIX) tablet 20 mg 20 mg Oral Daily Hernadez S Bonyo, DO 20 mg at 06/18/19905 levothyroxine (SYNTHROID) tablet 25 mcg 25 mcg Oral Daily Hernadez S Bonyo, DO 25 mcg at 06/19/19651 pantoprazole (PROTONIX) tablet 40 mg 40 mg Oral QAM AC Hernadez S Bonyo, DO 40 mg at 06/19/19651 oxyCODONE (ROXICODONE) immediate release tablet 5 mg 5 mg Oral Q6H PRN Hernadez S Bonyo, DO 5 mg at 06/19/19 0138 QUEtiapine (SEROQUEL) tablet 100 mg 100 mg Oral Nightly Hernadez S Bonyo, DO 100 mg at 06/18/192050 enoxaparin (LOVENOX) injection 40 mg 40 mg Subcutaneous Daily Hernadez S Bonyo, DO 40 mg at 06/18/19905 promethazine (PHENERGAN) injection 12.5 mg 12.5 mg Intravenous Q4H PRN Hernadez S Bonyo, DO melatonin tablet 3 mg 3 mg Oral Nightly PRN Hernadez S Bonyo, DO diphenhydrAMINE (BENADRYL) tablet 25 mg 25 mg Oral Q6H PRN Satya Boyce, LABS: CBC with Differential: Lab Results Component Value Date WBC 5.2 06/19/2019 WBC 8.8 05/16/2018 RBC 3.86 06/19/2019 HGB 10.6 06/19/2019 HCT 33.5 06/19/2019 PLT 217 06/19/2019 MCV 86.8 06/19/2019 MCH 27.6 06/19/2019 MCHC 31.8 06/19/2019 RDW 16.5 06/19/2019 NRBC 6 01/06/2013 SEGSPCT 76.7% 09/18/2015 BANDSPCT 1 01/06/2013 METASPCT 3 01/06/2013 LYMPHOPCT 29.0 06/19/2019 MONOPCT 5.7 06/19/2019 MONOPCT 4.7 05/16/2018 BASOPCT 0.6 06/19/2019 BASOPCT 0.5 05/16/2018 MONOSABS 0.3 06/19/2019 MONOSABS 0.41 05/16/2018 LYMPHSABS 1.5 06/19/2019 LYMPHSABS 1.68 05/16/2018 EOSABS 0.1 06/19/2019 EOSABS 0.13 05/16/2018 BASOSABS 0.0 06/19/2019 BASOSABS 0.04 05/16/2018 DIFFTYPE NOT REPORTED 11/30/2013 CMP: Lab Results Component Value Date NA 139 06/19/2019 K 3.9 06/19/2019 CL 105 06/19/2019 CO2 26 06/19/2019 BUN 9 06/19/2019 CREATININE 0.74 06/19/2019 GFRAA >60 05/17/2018 AGRATIO 0.8 09/18/2015 LABGLOM >60 05/17/2018 GLUCOSE 124 06/19/2019 PROT 7.0 06/19/2019 LABALBU 3.6 06/19/2019 LABALBU 3.9 05/15/2018 CALCIUM 8.4 06/19/2019 BILITOT 0.3 06/19/2019 ALKPHOS 153 06/19/2019 AST 26 06/19/2019 ALT 19 06/19/2019 Objective: Vitals: Vitals: 06/19/19 0744 BP: 129/60 Pulse: 68 Resp: 16 Temp: 97 F (36.1 C) SpO2: 97% General appearance: alert and cooperative with exam HEENT: PERRL, mucous membranes are moist, neck supple Lungs: Lungs have adv sounds Heart:: Regular rate and rhythm with no murmurs or gallops Abdomen: Soft, non-tender with no guarding or rebound, no palpable masses Extremities: exam limited sec to PAIN Neurologic: No obvious focal neurologic deficits. Psychologic: Alert and Oriented to Person, Place, and Time Skin: No rashes Assessment: Active Problems: Patient Active Problem List Diagnosis GERD (gastroesophageal reflux disease) Hypertension Osteoarthritis Acute left-sided weakness Hypothyroidism Dyslipidemia Morbid obesity (HCC) Mood disorder (HCC) Chronic back pain Chest pain HTN (hypertension) HLD (hyperlipidemia) Obesity Tobacco abuse MDD (major depressive disorder) Meralgia paresthetica of left side Stroke-like symptoms Anemia Leukocytosis History of stroke AVN (avascular necrosis of bone) (HCC) Back pain Recurrent falls Plan: Continue current RX Pain control/increase activity Discharge planning: Pending/complicated SATYA BOYCE DO * Abdoulaye Hill RN - 06/18/2019 10:34 AM EST Pt placed call light; this RN answered as bed alarm was activated. Upon entering room patient stated "turn my bed alarm off" this RN stated he will. Patient stated RN taking too long approximately 5 seconds later as this RN walking around to bed controls. This RN turned bed alarm off, placed alarm back on high setting. Patient stated "turn this damn thing off" became aggressive towards this RN. This RN stated he will contact patients nurse to discuss further with patient, patient became verbally aggressive again. This RN stated he did not appreciate the patients tone and it was not acceptable. Will continue to monitor. * Abdoulaye Ricks PT - 06/18/2019 9:45 AM EST Physical Therapy Facility/Department: [facility] Initial Assessment NAME: Natalie Gerber : 1960 Date of Service: 06/18/2019 Discharge Recommendations: Subacute/Intermediate Facility Assessment Body structures, Functions, Activity limitations: Decreased functional mobility ;Decreased balance;Decreased strength;Increased pain;Decreased endurance Assessment: pt presents with the deficits listed above; pt needs assist with transfers, amb limitedby back and LLE pain; pt with recent frequent falls; pt at high risk for falls; recommend SNF leveltherapies post acute care. Prognosis: Fair Decision Making: Low Complexity REQUIRES PT FOLLOW UP: Yes Activity Tolerance Activity Tolerance: Patient limited by pain;Patient limited by fatigue;Patient limited by endurance Patient Diagnosis(es): The primary encounter diagnosis was Sciatica of left side. A diagnosis of Recurrent falls was also pertinent to this visit. has a past medical history of Anemia, Anemia, Arthritis, CAD (coronary artery disease), CAD (coronary artery disease), CHF (congestive heart failure) ([facility]), Depression, Diverticulitis, Diverticulosis, GERD (gastroesophageal reflux disease), History of pulmonary embolus (PE), Hyperlipidemia, Hypertension, OK, old, Myocardial infarct ([facility]), myocardial infarction, LISA on CPAP, Pain, Pneumonia, Suicide ([facility]), Thyroid disease, and Unspecified cerebral artery occlusion with cerebral infarction. has a past surgical history that includes hip surgery; back surgery; hernia repair; ECHO Compl W Dop Color Flow (02/04/2012); Cardiac catheterization; Cardiac catheterization (05/12/2013); orthopedic surgery; Knee arthroscopy; back surgery; hernia repair; Cholecystectomy; and joint replacement. Restrictions Restrictions/Precautions Restrictions/Precautions: Fall Risk(+bed alarm) Vision/Hearing Subjective General Chart Reviewed: Yes Patient assessed for rehabilitation services?: Yes Diagnosis: Recurrent falls Follows Commands: Within Functional Limits Other (Comment): pt was disch from SNF 06/16 after 6 weeks; pt admitted after falling 2x since disch; c/o LLE sciatica and states his LLE gives out Subjective Subjective: pleasant and cooperative Pain Screening Patient Currently in Pain: Yes Pain Assessment Pain Level: 6 Pain Type: Chronic pain Pain Location: Back;Leg Pain Orientation: Left Vital Signs Patient Currently in Pain: Yes Orientation Orientation Overall Orientation Status: Within Normal Limits Social/Functional History Social/Functional History Lives With: Alone Type of Home: House Home Layout: Two level, Bed/Bath upstairs Home Access: Stairs to enter with rails Entrance Stairs - Number of Steps: 7 Home Equipment: Cane(rollator) ADL Assistance: Independent Homemaking Assistance: Independent Ambulation Assistance: Independent Transfer Assistance: Independent Additional Comments: amb with rollator although has fallen 2x since Wed; states he struggles with ADLs Cognition Objective PROM RLE (degrees) RLE PROM: WFL AROM RLE (degrees) RLE AROM: WFL PROM LLE (degrees) LLE General PROM: Lt knee ext -20 deg in sitting (limited by pain) AROM LLE (degrees) LLE General AROM: Lt knee ext -20 deg in sitting (limited by pain); hip flexion 75% in sitting Strength RLE Strength RLE: WNL Strength LLE Strength LLE: Exception L Hip Flexion: 3-/5 L Knee Extension: 3-/5 L Ankle Dorsiflexion: 4/5 Bed mobility Rolling to Left: Supervision Rolling to Right: Supervision Supine to Sit: Supervision Sit to Supine: Supervision Scooting: Supervision Transfers Sit to Stand: Minimal Assistance Stand to sit: Minimal Assistance Lateral Transfers: Minimal Assistance(2-3 steps toward HOB with rollator) Comment: unable to bear full weight on LLE due to pain Balance Posture: Fair Sitting - Static: Good Sitting - Dynamic: Good Standing - Static: Fair Standing - Dynamic: Fair Plan Plan Times per week: 5x/week Plan weeks: 2 weeks Current Treatment Recommendations: Strengthening, Transfer Training, Endurance Training, Balance Training, Gait Training, Home Exercise Program, Safety Education & Training, Functional Mobility Training, Stair training Safety Devices Type of devices: All fall risk precautions in place, Patient at risk for falls, Left in bed, Bed alarm in place, Call light within reach, Gait belt AM-PAC Score AM-[facility] Inpatient Mobility Raw Score : 13 (06/18/19932) AM-[facility] Inpatient T-Scale Score : 36.74 (06/18/19932) Mobility Inpatient CMS 0-100% Score: 64.91 (06/18/19932) Mobility Inpatient CMS G-Code Modifier : CL (06/18/19932) Goals Short term goals Time Frame for Short term goals: 2 weeks Short term goal 1: Bed mobility Indep Short term goal 2: Transfers Indep Short term goal 3: Gait 50 feet with ww and mod Indep Short term goal 4: 7 steps with rail and supervision Patient Goals Patient goals : None given Therapy Time Individual Concurrent Group Co-treatment Time In 0918 Time Out 0930 Minutes 12 Patient s Physical Therapy Plan of Care supervision is transferred to [facility] Rehab Department Physical Therapist. Abdoulaye Ricks, PT * Radha Lujan, RN - 06/18/2019 4:26 AM EST This RN called to pt's room for pain medications. This RN notified pt that oxycodone is not available to be given until 06 but that tylenol is an available option for pain at this time. This RN informed pt that blood was needed for morning lab work. Pt states "take it from my IV, I cant take this anymore." Pt's IV does not allow blood return and pt informed the blood must be drawn from another site. Pt then states " he needs to up these medications to actually do something." Pt refused blood work this am. Pt informed that Dr. Boyce will be rounding this AM and that he should discuss his concerns with the physician. documented in this encounterSUMMA Work Phone: [phone] Hospital Discharge instructions* Discharge Instr - EDUARDO* Daniela Bowling RN - 06/22/2019 8:23 AM EST Continuity of Care Form Patient Name: Natalie Gerber : 1960 Admit date: 06/17/2019 Discharge date: 06-24-2019 Code Status Order: Prior Advance Directives: Advance Care Flowsheet Documentation Date/Time Healthcare Directive Type of Healthcare Directive Copy in Chart Healthcare Agent Appointed Healthcare Agent's Name Healthcare Agent's Phone Number 06/17/19 [phone] No, patient does not have an advance directive for healthcare treatment -- -- -- -- -- Admitting Physician: Satya Boyce DO PCP: SATYA BOYCE DO Discharging Nurse: Daniela Bowling Discharging Hospital Unit/Room#: 1506/559416 Discharging Unit Emergency Contact: Extended Emergency Contact Information Primary Emergency Contact: Taryn Gerber Address: [address] [place] [address] Relation: Spouse Past Surgical History: Past Surgical History: Procedure Laterality Date BACK SURGERY BACK SURGERY l5,l4,l3 fusion CARDIAC CATHETERIZATION 2006 CARDIAC CATHETERIZATION 05/12/2013 ef 62 CHOLECYSTECTOMY ECHO COMPL W DOP COLOR FLOW 02/04/2012 HERNIA REPAIR HERNIA REPAIR double hernia repair HIP SURGERY left hip replacement JOINT REPLACEMENT lt hip KNEE ARTHROSCOPY ORTHOPEDIC SURGERY Immunization History: Immunization History Administered Date(s) Administered Influenza Virus Vaccine 03/08/2019 Active Problems: Patient Active Problem List Diagnosis Code GERD (gastroesophageal reflux disease) K21.9 Hypertension I10 Osteoarthritis M19.90 Acute left-sided weakness R53.1 Hypothyroidism E03.9 Dyslipidemia E78.5 Morbid obesity (HCC) E66.01 Mood disorder (HCC) F39 Chronic back pain M54.9, G89.29 Chest pain R07.9 HTN (hypertension) I10 HLD (hyperlipidemia) E78.5 Obesity E66.9 Tobacco abuse Z72.0 MDD (major depressive disorder) F32.9 Meralgia paresthetica of left side G57.12 Stroke-like symptoms R29.90 Anemia D64.9 Leukocytosis D72.829 History of stroke Z86.73 AVN (avascular necrosis of bone) (HCC) M87.00 Back pain M54.9 Recurrent falls R29.6 Isolation/Infection: Isolation No Isolation Patient Infection Status None to display Nurse Assessment: Last Vital Signs: BP (!) 147/76 Pulse 73 Temp 96.6 F (35.9 C) (Temporal) Resp 20 Ht 5' 5" (1.651 m) Wt (!) 325 lb 11.2 oz (147.7 kg) SpO2 96% BMI 54.20 kg/m Last documented pain score (0-10 scale): Pain Level: 7 Last Weight: Wt Readings from Last 1 Encounters: 06/17/19 (!) 325 lb 11.2 oz (147.7 kg) Mental Status: alert IV Access: - None Nursing Mobility/ADLs: Walking Assisted Transfer Assisted Bathing Independent Dressing Independent Toileting Independent Feeding Independent Orchid Hand Assisted Med Delivery whole Wound Care Documentation and Therapy: none Elimination: Continence: Bowel: Yes Bladder: Yes Urinary Catheter: None Colostomy/Ileostomy/Ileal Conduit: No Date of Last BM: 06-24-19 Intake/Output Summary (Last 24 hours) at 06/24/2019 1131 Last data filed at 06/24/2019 0527 Gross per 24 hour Intake Output 450 ml Net -450 ml I/O last 3 completed shifts: In: - Out: 450 [Urine:450] Safety Concerns: History of Falls (last 30 days) Impairments/Disabilities: None Nutrition Therapy: Current Nutrition Therapy: - Oral Diet: General Routes of Feeding: Oral Liquids: Thin Liquids Daily Fluid Restriction: no Last Modified Barium Swallow with Video (Video Swallowing Test): not done Treatments at the Time of Hospital Discharge: Respiratory Treatments: none Oxygen Therapy: is not on home oxygen therapy. Ventilator: - No ventilator support Rehab Therapies: Physical Therapy Weight Bearing Status/Restrictions: No weight bearing restirctions Other Medical Equipment (for information only, NOT a DME order): walker Other Treatments: none Patient's personal belongings (please select all that are sent with patient): walker, clotheswalker, clothes RN SIGNATURE: MANAGEMENT/SOCIAL WORK SECTION Inpatient Status Date: OBS Readmission Risk Assessment Score: Readmission Risk Risk of Unplanned Readmission: 20 Discharging to Facility/ Agency Name: [facility] Address:[address] [place] [address] Dialysis Facility (if applicable) Name: Address: Dialysis Schedule: Phone: Fax: Concierge/Migrant Leader signature: ICIAN SECTION Prognosis: fair Condition at Discharge: stable Rehab Potential (if transferring to Rehab): fair Recommended Labs or Other Treatments After Discharge: cbc/cmp Physician Certification: I certify the above information and transfer of Natalie Gerber is necessary for the continuing treatment of the diagnosis listed and that he requires Intermediate Nursing Care for less 30 days. Update Admission H&P: no PHYSICIAN SIGNATURE: documented in this encounterSUMMA Work Phone: Evaluation note* Diagnosis Sciatica of left side- Primary Sciatica Recurrent falls Personal history of fall Mood disorder (HCC) Unspecified episodic mood disorder documented in this encounter [facility] Work Phone: Evaluation note* Diagnosis Chronic left shoulder pain- Primary Pain in joint, shoulder region documented in this encounter [facility] noteNo assessment information availableWMercy Health [facility] Work Phone: Reason for referral (narrative)* Diagnostic Procedure Only (Routine) - Pending Review Specialty Diagnoses / Procedures Referred By Contac t Referred To Contact XR IMAGING Diagnoses Chronic left shoulder pain Procedures XR SHOULDER 3V AP/Y VIEW/AXILLARY LEFT (AK) RADEX SHOULDER COMPLETE MINIMUM 2 VIEWS Chris Burton MD [address] [place] [address] [place] [address] Referral ID Status Reason Start Date Expiration Date Visits Requested Visits Authorized [id number] Pending Review Auto-Generat ed Referral 01/14/2023 02/13/2024 1 1 [facility] for referral (narrative)No reason for referral information availableWMercy Health [facility] Work Phone: Summary Purpose Family History No Family History Records FoundNo Family History Records FoundNo Family History Records FoundNo Family History Records FoundNo Family History Records FoundNo Family History Records FoundNo Family History Records FoundNo Family History Records FoundNo Family History Records FoundNo Family History Records FoundNo Family History Records FoundNo Family History Records FoundNo Family History Records FoundNo Family History Records FoundNo Family History Records FoundNo Family History Records FoundNo Family History Records FoundNo Family History Records Found Advance Directives Documents on File Type Date Recorded Patient Director Of Materials Expl anation Advance Directives and Livin g Will Advance Directives and Livin g Will 09/25/2012 10:39 AM Advance Directives and Livin g Will 10/02/2012 10:47 AM Advance Directives and Livin g Will 02/11/2013 3:20 PM Advance Directives and Livin g Will 02/20/2013 6:43 PM Advance Directives and Livin g Will 02/21/2013 11:14 AM Power of Key Account Executive Latest Code Status on File Code Status Date Activated Date Inactivated Comments Full Code 11/17/2016 3:42 PM 11/20/2016 10:42 PM Full Code 11/17/2016 3:03 PM 11/17/2016 3:42 PM Full Code 09/24/2016 9:24 PM 09/26/2016 2:53 PM Full Code 11/10/2015 1:30 AM 11/13/2015 12:28 PM Full Code 05/23/2014 11:46 PM 05/24/2014 4:14 PM Documents on File Type Date Recorded Patient Director Of Materials Expl anation ACP-Advance Directive ACP-Advance Directive 09/25/2012 10:39 AM ACP-Advance Directive 10/02/2012 10:47 AM ACP-Advance Directive 02/11/2013 3:20 PM ACP-Advance Directive 02/20/2013 6:43 PM ACP-Advance Directive 02/21/2013 11:14 AM ACP-Power of Key Account Executive Documents on File Type Date Recorded Patient Director Of Materials Expl anation Advance Directive(s) Advance Directive(s) 12/11/2021 4:28 PM Advance Directive(s) 12/09/2019 12:52 AM Advance Directive(s) 12/09/2019 10:58 AM Advance Directive(s) 05/09/2019 5:35 PM Advance Directive(s) 05/05/2019 2:41 PM Advance Directive(s) 03/18/2019 9:47 PM Advance Directive(s) 02/17/2019 7:25 PM Advance Directive(s) 01/11/2019 5:03 PM Advance Directive(s) 12/03/2018 2:01 PM Advance Directive(s) 04/22/2018 7:47 PM Advance Directive(s) 01/30/2018 4:22 PM Advance Directive(s) 07/05/2017 8:01 PM Advance Directive(s) 11/15/2016 7:09 PM Advance Directive(s) 07/17/2016 9:22 PM Latest Code Status on File Code Status Date Activated Date Inactivated Comments Full Code 12/11/2021 9:25 PM Full Code Order Discussed With: Patient Full Code 01/11/2019 9:05 PM 01/12/2019 6:55 PM Full Code 12/03/2018 5:28 PM 12/10/2018 7:38 PM Latest Code Status on File Code Status Date Activated Date Inactivated Comments Full Code 12/11/2021 9:25 PM 12/29/2021 9:32 PM Latest Code Status on File Code Status Date Activated Date Inactivated Comments Full Code 12/11/2021 9:25 PM 12/29/2021 9:32 PM Question Answer Comments Full Code Order Discussed With: Patient Code Status History Code Status Date Activated Date Inactivated Comments Full Code 01/11/2019 9:05 PM 01/12/2019 6:55 PM Question Answer Comments Full Code Order Discussed With: Patient Full Code 12/03/2018 5:28 PM 12/10/2018 7:38 PM Question Answer Comments Full Code Order Discussed With: Patient Advance Directive Response Recorded Date/ Time Living Will No June 16 6:14pm Power of Key Account Executive No June 16, 2019 6:14pm Advance Directive Response Recorded Date/ Time Living Will No June 16 7:14pm Power of Key Account Executive No June 16, 2019 7:14pm Date Activated Date Inactivated Comments 12/11/2021 9:25 PM 12/29/2021 9:32 PM Question Answer Comments Full Code Order Discussed With: Patient Date Activated Date Inactivated Comments 01/11/2019 9:05 PM 01/12/2019 6:55 PM Question Answer Comments Full Code Order Discussed With: Patient Date Activated Date Inactivated Comments 12/03/2018 5:28 PM 12/10/2018 7:38 PM Question Answer Comments Full Code Order Discussed With: Patient Hospital Course Note [facility] Patient: NATALIE GERBER [address] MR#: [id number] [place], [place] [address] : 1960 Ord. : Dept: PDOC Loc: 9W 934-1 Discharge Summary Service Dt: 02/26/18 Report#: [id number] Adm Dt: 02/24/18 Dis Dt: Discharge Summary - Principal/Other Diagnoses (1) Facial paresthesia Status: Acute (2) Arm paresthesia, left Status: Acute (3) DVT prophylaxis Status: Acute (4) Dyspnea Status: Acute (5) Morbid obesity Status: Acute (6) Diabetes Status: Chronic Qualifiers: Diabetes mellitus type: type 2 Diabetes mellitus prison insulin use: without 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 (7) CHF exacerbation Status: Suspected Qualifiers: Heart failure type: unspecified Qualified Code(s): I50.9 - Heart failure, unspecified (8) Chronic back pain Status: Chronic Qualifiers: Back pain location: back pain in unspecified location Back pain laterality: midline Qualified Code(s): M54.9 - Dorsalgia, unspecified (9) GERD (gastroesophageal reflux dis (more content not included)... Note HNO ID: [id number]: [facility] General Internal MedicineAuthor Type: Nurse PractitionerType: Discharge SummariesFiled: 06/09/2018 2:23 PMNote Text: DISCHARGE SUMMARYPATIENT NAME: Natalie Gerber Code Status: Not on fileMRN: [id number] Readmission Risk Score: 15 The 30 day readmissions risk score is derived from an internallyvalidated risk model which evaluates patient level characteristics,utilization history, medication orders and lab results up until the day ofdischarge. Patients with a score of 40 or above are considered highestrisk for readmission. Specific patient level drivers will be listed at thebottom of the summary.Admission Information Admission Information ADMIT DATE: 06/07/2018DISCHARGE DATE: 06/09/18[facility] DOCT[facility] AND MEDICAL TEAM:[facility] Doctor: Jt Helton Care Provider: Demetra Johnston Medical Team Members: Treatment Team:Attending Provider: Jt ClearyConsulting: Cecy Rendon CONDITION AT DISCHARGE: StableREASON I WAS (more content not included)... Note Send Summary: Discharge Summ goodwin Providers: Provider RoleProvider Name ReferringFrate, Marquis Brianna Fuentes Benson S Note Recipients: Satya Boyce MD - [id number] [] Discharge: Summary: Admission Date: .12-Dec-2018 16:39:00 Discharge Date: 18-Dec-2018 Admission Reason: back pain, inability to ambulate(1) Final Discharge Diagnoses: Benign essential hypertension, Coronary artery disease, H/O spinal fusion, History of total left hip replacement, Morbid obesity with BMI of 50.0-59.9, adult, Stroke, Procedures: none Condition at Discharge: stable Disposition at Discharge: [facility] Vital Signs: T PRBPSpO2 [id number]/6897% Date/Time12/18 6: 6: 6: 6:007/19 6:00 Range(36C - 36.3C ) (69 - 75 ) (18 - 18 ) (101 - 116 )/ (65 - 68 ) (95% - 97% ) Hospital Course: Mr. Gerber is a 58 y/o with PMH of multilevel Spondylosis, CAD last [facility] 12/01/2018 (clean) hx of [place], hx of PE 99, ADHD, CVA s/p TPA 2013, PE, CHF, GERD, presented to [facility] with worsening Back pain. he (more content not included)... Note Patient: NATALIE GERBER MR N: [id number] Age: 58 years Sex: Male : 1960 Associated Diagnoses: None Author: JUSTIN LUCERO, CONCETTA Hospital Course Hospital Course Admitted from: from home. She was admitted to telemetry. he had he underwent cardiac cath. Cardiac cath showed no significant coronary disease. Patient was a stable condition. He was discharged home. Physical Examination VS/Measurements Vital Signs (last 24 hrs) Last Charted Temp Oral 36.5 degC (DEC 02 04:00) Heart Rate Peripheral 97 bpm (DEC 01 15:00) Resp Rate 20 br/min (DEC 02 04:00) SBP H 149mmHg (DEC 02 06:00) DBP 82 mmHg (DEC 02 06:00) General: Alert and oriented. Respiratory: Lungs are clear to auscultation, Respirations are non-labored, Breath sounds are equal, Symmetrical chest wall expansion. Cardiovascular: Normal rate, Regular rhythm, Good pulses equal in all extremities, No edema. Gastrointestinal: Soft, Non-tender, Non-distended, Normal bowel sounds. Genitourinary: No costov (more content not included)... Note Patient: NATALIE GERBER MR N: [id number] Age: 59 years Sex: Male : 1960 Associated Diagnoses: None Author: ALLEGRA LUCERO CAIO Hospital Course Hospital Course 59-year-old male with inability to ambulate and severe pain on his chronic back. Unclear what causes acute exacerbation. Discussed with patient and it operations analyst. [place] filled out and we are waiting for transfer to intermediate Discharge disposition : ECF Discharge diagnosis : Acute sciatica Chronic lumbar degenerative disease ADHD, super morbid obesity, hypertension, dyslipidemia, degenerative joint disease, hypothyroidism, GERD Associated medical problem : Discharge medications : Home Medications (16) Active amphetamine- dextroamphetamine 10 mg oral tablet 20 mg = 2 tabs, ORAL, BIDWM aspirin 81 mg oral tablet 81 mg = 1 tabs, ORAL, DAILY WITH BREAKFAST CeleXA 20 mg oral tablet 20 mg = 1 tabs, ORAL, DAILY Coreg 6.25 mg oral tablet 6.25 mg = 1 tabs, ORAL, DAILY Lasix 20 mg oral tablet 1 caps, ORAL, SHARRI (more content not included)... Note Send Summary: Discharge [facility] Providers: Provider RoleProvider Name [facility]uy [facility] Satya Alvarado Note Recipients: Satya Boyce MD - [id number] [] Discharge: Summary: Admission Date: .26-Mar-2019 20:58:00 Discharge Date: 27-Mar-2019 Attending Physician at Discharge: Chuy Mc Admission Reason: chest pain Final Discharge Diagnoses: Anemia, Chest pain, Morbid obesity with BMI of 50.0-59.9, adult, Procedures: Low risk cardiac protocol Condition at Discharge: Satisfactory Disposition at Discharge: .Home Vital Signs: T PRBPSpO2 [id number]/7296% Date/Time03/27 8: 8: 8: 8: 8:00 Range(36C - 36.9C ) (69 - 87 ) (16 - 20 ) (116 - 156 )/ (54 - 74 ) (95% - 97% ) Highest temp of 36.9 C was recorded at 03/26 21:00 Hospital Course: Patient admitted for chest pain and ruled out for cardiac causes including cardiac enzymes as well as EKGs and a cardiology consultation. Patient was pain-free and discharge to home. Immuniz (more content not included)... Note Send Summary: Discharge [facility] Providers: Provider RoleProvider Name Servando Becker [facility], Satya Herrera Note Recipients: Satya Boyce MD - [id number] [] Servando Hernández MD Discharge: Summary: Admission Date: .08-Oct-2019 13:30:00 Discharge Date: 12-Oct-2019 Attending Physician at Discharge: Chuy Mc Admission Reason: Chest pain(1) Final Discharge Diagnoses: Benign essential hypertension, Chest pain, Coronary artery disease, H/O spinal fusion, History of cholecystectomy, Morbid obesity with BMI of 50.0-59.9, adult, Potential for self care deficit, Pulmonary embolism, Procedures: none Condition at Discharge: Fair Disposition at Discharge: Intermediate Facility Vital Signs: T PRBPSpO2 [id number]/6597% Date/Time10/11 16: 16: 16: 16: 16:00 Range(36.1C - 36.8C ) (70 - 88 ) (18 - 20 ) (134 - 183 )/ (61 - 80 ) (94% - 97% ) Hospital Course: History of Present Illness: Admission Re (more content not included)... Note PATIENT: NATALIE GERBER SC DICAL RECORD #: [id number] ADMISSION DATE: 01/27/2020 DISCHARGE DATE: 01/31/2020 DATE OF : 1960 AGE: 59 ADMITTING PHYSICIAN: Satya Boyce D.O. ATTENDING PHYSICIAN: Satya Boyce D.O. DICTATING PHYSICIAN: Satya Boyce D.O. DISCHARGE SUMMARY Reason for Admission and Hospital Course: This is a 59-year-old white male with multiple complicated medical problems including chronic back pain secondary to spinal stenosis, who presented from the prison or he is not very clear where he came from with acute onset chest pain. The patient describes chest pain as a pressure like an elephant sitting on his chest. In the ER, cardiac workup was initiated. Because of the patient's comorbidities, the patient was brought to telemetry for further monitoring. We consulted Cardiology. Cardiac enzymes were negative. Cardiology did not think this was cardiac chest pain. The patient, however, remains weak, requiring a placement. We (more content not included)... Discharge Instructions * Instructions* Lisa Rodríguez MD - 01/13/2019 Increase Lasix from 20 mg once daily to 20 mg twice daily for the next 5 days. After 5 days resume usual 20 mg daily dose and instructed otherwise by her family doctor. Continue all other home medications as previously prescribed. Call your doctor in the morning but office staff know you were in the emergency department and did need to be rechecked in the next 1-2 days and person. If worsening or changing shortness of breath, chest pain, dizziness, fever, or any other new or concerning symptoms please return immediately here. * Attachments The following attachments cannot be sent through Care Everywhere. * Edema: Leg and Ankle ([facility]) documented in this encounter* Instructions* Brandon Dahl MD - 02/17/2019 Use your pain medications at home as needed. Expect slow but steady improvement. Call your doctor today to make follow-up appointment. * Attachments The following attachments cannot be sent through Care Everywhere. * Sciatica ([facility]) documented in this encounter* Discharge Instr - Diet* Satya Boyce DO - 03/10/2019 7:55 AM EDT ? Good nutrition is important when healing from an illness, injury, or surgery. Follow any nutrition recommendations given to you during your hospital stay. ? If you were given an oral nutrition supplement while in the hospital, continue to take this supplement at home. You can take it with meals, in-between meals, and/or before bedtime. These supplements can be purchased at most local grocery stores, pharmacies, and chain [employer]-stores. ? If you have any questions about your diet or nutrition, call the hospital and ask for the dietitian. * Discharge Instr - EDUARDO* Yoselin Max RN - 03/10/2019 7:54 AM EDT Continuity of Care Form Patient Name: Natalie Gerber : 1960 Admit date: 03/08/2019 Discharge date: 03/11/2019 Code Status Order: Prior Advance Directives: Advance Care Flowsheet Documentation Date/Time Healthcare Directive Type of Healthcare Directive Copy in Chart Healthcare Agent Appointed Healthcare Agent's Name Healthcare Agent's Phone Number 03/09/19 0018 No, patient does not have an advance directive for healthcare treatment -- -- -- -- -- Admitting Physician: Satya Boyce DO PCP: SATYA BOYCE DO Discharging Nurse: Renetta Max RN Discharging Hospital Unit/Room#: [id number] Discharging Unit Emergency Contact: Extended Emergency Contact Information Primary Emergency Contact: Taryn Gerber Address: [address] [place], [place] [id number] Relation: Spouse Past Surgical History: Past Surgical History: Procedure Laterality Date BACK SURGERY BACK SURGERY l5,l4,l3 fusion CARDIAC CATHETERIZATION 2005 CARDIAC CATHETERIZATION 05/12/2013 ef 62 CHOLECYSTECTOMY ECHO COMPL W DOP COLOR FLOW 02/04/2012 HERNIA REPAIR HERNIA REPAIR double hernia repair HIP SURGERY left hip replacement JOINT REPLACEMENT lt hip KNEE ARTHROSCOPY ORTHOPEDIC SURGERY Immunization History: Immunization History Administered Date(s) Administered Influenza Virus Vaccine 03/08/2019 Active Problems: Patient Active Problem List Diagnosis Code GERD (gastroesophageal reflux disease) K21.9 Hypertension I10 Osteoarthritis M19.90 Acute left-sided weakness R53.1 Hypothyroidism E03.9 Dyslipidemia E78.5 Morbid obesity (HCC) E66.01 Mood disorder (HCC) F39 Chronic back pain M54.9, G89.29 Chest pain R07.9 HTN (hypertension) I10 HLD (hyperlipidemia) E78.5 Obesity E66.9 Tobacco abuse Z72.0 MDD (major depressive disorder) F32.9 Meralgia paresthetica of left side G57.12 Stroke-like symptoms R29.90 Anemia D64.9 Leukocytosis D72.829 History of stroke Z86.73 AVN (avascular necrosis of bone) (HCC) M87.00 Isolation/Infection: Isolation No Isolation Nurse Assessment: Last Vital Signs: BP 113/76 Pulse 73 Temp 97.1 F (36.2 C) (Temporal) Resp 16 Ht 5' 5" (1.651 m) Wt (!) 323 lb 6.2 oz (146.7 kg) SpO2 98% BMI 53.81 kg/m Last documented pain score (0-10 scale): Pain Level: 8 Last Weight: Wt Readings from Last 1 Encounters: 03/10/19 (!) 323 lb 6.2 oz (146.7 kg) Mental Status: oriented and alert IV Access: - None Nursing Mobility/ADLs: Walking Assisted Transfer Assisted Bathing Assisted Dressing Assisted Toileting Assisted Feeding Independent Orchid Hand Independent Med Delivery none Wound Care Documentation and Therapy: Elimination: Continence: Bowel: Yes Bladder: Yes Urinary Catheter: None Colostomy/Ileostomy/Ileal Conduit: No Date of Last BM: 03/11/2019 Intake/Output Summary (Last 24 hours) at 03/10/2019 0754 Last data filed at 03/10/2019 0242 Gross per 24 hour Intake 1080 ml Output 875 ml Net 205 ml I/O last 3 completed shifts: In: 1440 [P.O.:1440] Out: 875 [Urine:875] Safety Concerns: None Impairments/Disabilities: None Nutrition Therapy: Current Nutrition Therapy: - Oral Diet: Cardiac Routes of Feeding: Oral Liquids: Thin Liquids Daily Fluid Restriction: no Last Modified Barium Swallow with Video (Video Swallowing Test): not done Treatments at the Time of Hospital Discharge: Respiratory Treatments: none Oxygen Therapy: is not on home oxygen therapy. Ventilator: - No ventilator support Rehab Therapies: Physical Therapy and Occupational Therapy Weight Bearing Status/Restrictions: No weight bearing restirctions Other Medical Equipment (for information only, NOT a DME order): walker Other Treatments: none Patient's personal belongings (please select all that are sent with patient): Arthur RN SIGNATURE: MANAGEMENT/SOCIAL WORK SECTION Inpatient Status Date: 03/08/2019 Readmission Risk Assessment Score: Readmission Risk Risk of Unplanned Readmission: 14 Discharging to Facility/ Agency Name: [facility] Address:[address] [place] [address] Dialysis Facility (if applicable) Name: Address: Dialysis Schedule: Phone: Fax: Concierge/Migrant Leader signature: ICIAN SECTION Prognosis: fair Condition at Discharge: stable Rehab Potential (if transferring to Rehab): fair Recommended Labs or Other Treatments After Discharge: cbc/cmp Physician Certification: I certify the above information and transfer of Natalie Gerber is necessary for the continuing treatment of the diagnosis listed and that he requires Intermediate Facility for less 30 days. Update Admission H&P: no PHYSICIAN SIGNATURE: documented in this encounter* Discharge Instr - Activity* Satya Boyce DO - 01/31/2020 8:37 AM EDT As tolerated * Discharge Instr - Diet* Satya Boyce DO - 01/31/2020 8:37 AM EDT ? Good nutrition is important when healing from an illness, injury, or surgery. Follow any nutrition recommendations given to you during your hospital stay. ? If you were given an oral nutrition supplement while in the hospital, continue to take this supplement at home. You can take it with meals, in-between meals, and/or before bedtime. These supplements can be purchased at most local grocery stores, pharmacies, and [employer]stores. ? If you have any questions about your diet or nutrition, call the hospital and ask for the dietitian. * Discharge Instr - EDUARDO* Raina Ferro RN - 01/26/2020 8:18 PM EDT Continuity of Care Form Patient Name: Natalie Gerber : 1960 Admit date: 01/26/2020 Discharge date: 01/31/2020 Code Status Order: Prior Advance Directives: Admitting Physician: No admitting provider for patient encounter. PCP: SATYA BOYCE DO Discharging Nurse: Discharging Hospital Unit/Room#: Discharging Unit Emergency Contact: Extended Emergency Contact Information Primary Emergency Contact: Taryn Gerber Address: [address] [place] [address] Relation: Spouse Past Surgical History: Past Surgical History: Procedure Laterality Date BACK SURGERY BACK SURGERY l5,l4,l3 fusion CARDIAC CATHETERIZATION 2005 CARDIAC CATHETERIZATION 05/12/2013 ef 62 CHOLECYSTECTOMY ECHO COMPL W DOP COLOR FLOW 02/04/2012 HERNIA REPAIR HERNIA REPAIR double hernia repair HIP SURGERY left hip replacement JOINT REPLACEMENT lt hip KNEE ARTHROSCOPY ORTHOPEDIC SURGERY Immunization History: Immunization History Administered Date(s) Administered Influenza Virus Vaccine 03/08/2019 Active Problems: Patient Active Problem List Diagnosis Code GERD (gastroesophageal reflux disease) K21.9 Hypertension I10 Osteoarthritis M19.90 Acute left-sided weakness R53.1 Hypothyroidism E03.9 Dyslipidemia E78.5 Morbid obesity (HCC) E66.01 Mood disorder ([facility]) F39 Chronic back pain M54.9, G89.29 Chest pain R07.9 HTN (hypertension) I10 HLD (hyperlipidemia) E78.5 Obesity E66.9 Tobacco abuse Z72.0 MDD (major depressive disorder) F32.9 Meralgia paresthetica of left side G57.12 Stroke-like symptoms R29.90 Anemia D64.9 Leukocytosis D72.829 History of stroke Z86.73 AVN (avascular necrosis of bone) ([facility]) M87.00 Back pain M54.9 Recurrent falls R29.6 Isolation/Infection: Isolation No Isolation Patient Infection Status None to display Nurse Assessment: Last Vital Signs: BP 123/76 Pulse 111 Temp 97.5 F (36.4 C) (Oral) Resp 16 Ht 5' 5" (1.651 m) Wt (!) 142.9 kg (315 lb) SpO2 96% BMI 52.42 kg/m Last documented pain score (0-10 scale): Pain Level: 3 Last Weight: Wt Readings from Last 1 Encounters: 01/26/20 (!) 142.9 kg (315 lb) Mental Status: oriented, alert, coherent, logical, thought processes intact and able to concentrateand follow conversation IV Access: - None Nursing Mobility/ADLs: Walking Assisted Transfer Independent Bathing Independent Dressing Independent Toileting Independent Feeding Independent Orchid Hand Independent Med Delivery whole Wound Care Documentation and Therapy: Elimination: Continence: Bowel: No Bladder: No Urinary Catheter: None Colostomy/Ileostomy/Ileal Conduit: No Date of Last BM: No intake or output data in the 24 hours ending 01/26/20 7765 No intake/output data recorded. Safety Concerns: At Risk for Falls Impairments/Disabilities: None Nutrition Therapy: Current Nutrition Therapy: - Oral Diet: Cardiac Routes of Feeding: Oral Liquids: No Restrictions Daily Fluid Restriction: no Last Modified Barium Swallow with Video (Video Swallowing Test): not done Treatments at the Time of Hospital Discharge: Respiratory Treatments: n/a Oxygen Therapy: is not on home oxygen therapy. Ventilator: - No ventilator support Rehab Therapies: Physical Therapy and Occupational Therapy Weight Bearing Status/Restrictions: No weight bearing restirctions Other Medical Equipment (for information only, NOT a DME order): wheelchair Other Treatments: PT Patient's personal belongings (please select all that are sent with patient): Glasses, Jewelry, cell phone, pants, shirt, shoes, art supplies RN SIGNATURE: CASE MANAGEMENT/SOCIAL WORK SECTION Inpatient Status Date: obs Readmission Risk Assessment Score: Readmission Risk Risk of Unplanned Readmission: 0 Discharging to Facility/ Agency Name: [facility]. Address: [address] [place] [address] [place] [address] Dialysis Facility (if applicable) Name: Address: Dialysis Schedule: Phone: Fax: Concierge/Migrant Leader signature: PHYSICIAN SECTION Prognosis: Fair Condition at Discharge: Stable Rehab Potential (if transferring to Rehab): fair Recommended Labs or Other Treatments After Discharge: cbc/cmp in 5 days Physician Certification: I certify the above information and transfer of Natalie Gerber is necessary for the continuing treatment of the diagnosis listed and that he requires Intermediate Facility for greater 30 days. Update Admission H&P: no PHYSICIAN SIGNATURE: documented in this encounter* Discharge Instr - EDUARDO* Elida Zuluaga MD - 2019 1:49 PM EDT Continuity of Care Form Patient Name: Natalie Gerber : 1960 Admit date: 03/20/2019 Discharge date: Code Status Order: Prior Advance Directives: Advance Care Flowsheet Documentation Date/Time Healthcare Directive Type of Healthcare Directive Copy in Chart Healthcare Agent Appointed Healthcare Agent's Name Healthcare Agent's Phone Number 03/21/19 0255 No, patient does not have an advance directive for healthcare treatment -- -- -- -- -- Admitting Physician: Satya Boyce DO PCP: SATYA BOYCE DO Discharging Nurse: Discharging Hospital Unit/Room#: [id number]/1745B Discharging Unit Phone Number: Emergency Contact: Extended Emergency Contact Information Primary Emergency Contact: Taryn Gerber Address: [address] [place] [address] Relation: Spouse Past Surgical History: Past Surgical History: Procedure Laterality Date BACK SURGERY BACK SURGERY l5,l4,l3 fusion CARDIAC CATHETERIZATION 2005 CARDIAC CATHETERIZATION 05/12/2013 ef 62 CHOLECYSTECTOMY ECHO COMPL W DOP COLOR FLOW 02/04/2012 HERNIA REPAIR HERNIA REPAIR double hernia repair HIP SURGERY left hip replacement JOINT REPLACEMENT lt hip KNEE ARTHROSCOPY ORTHOPEDIC SURGERY Immunization History: Immunization History Administered Date(s) Administered Influenza Virus Vaccine 03/08/2019 Active Problems: Patient Active Problem List Diagnosis Code GERD (gastroesophageal reflux disease) K21.9 Hypertension I10 Osteoarthritis M19.90 Acute left-sided weakness R53.1 Hypothyroidism E03.9 Dyslipidemia E78.5 Morbid obesity (HCC) E66.01 Mood disorder (HCC) F39 Chronic back pain M54.9, G89.29 Chest pain R07.9 HTN (hypertension) I10 HLD (hyperlipidemia) E78.5 Obesity E66.9 Tobacco abuse Z72.0 MDD (major depressive disorder) F32.9 Meralgia paresthetica of left side G57.12 Stroke-like symptoms R29.90 Anemia D64.9 Leukocytosis D72.829 History of stroke Z86.73 AVN (avascular necrosis of bone) (HCC) M87.00 Back pain M54.9 Isolation/Infection: Isolation No Isolation Nurse Assessment: Last Vital Signs: BP 100/68 Pulse 80 Temp 97.1 F (36.2 C) (Temporal) Resp 18 Ht 5' 5" (1.651 m) Wt (!) 316 lb (143.3 kg) SpO2 96% BMI 52.59 kg/m Last documented pain score (0-10 scale): Pain Level: 7 Last Weight: Wt Readings from Last 1 Encounters: 03/20/19 (!) 316 lb (143.3 kg) Mental Status: {IP PT MENTAL STATUS:} IV Access: { EDUARDO IV ACCESS:858559995} Nursing Mobility/ADLs: Walking {CHP DME ADLs:235973360} Transfer {CHP DME ADLs:471375834} Bathing {CHP DME ADLs:781997286} Dressing {CHP DME ADLs:572747825} Toileting {CHP DME ADLs:173774085} Feeding {CHP DME ADLs:587646032} Orchid Hand {CHP DME ADLs:795084885} Med Delivery { EDUARDO MED Delivery:488484150} Wound Care Documentation and Therapy: Elimination: Continence: Bowel: {YES / NO:} Bladder: {YES / NO:} Urinary Catheter: {Urinary Catheter:675712345} Colostomy/Ileostomy/Ileal Conduit: {YES / NO:} Date of Last BM: No intake or output data in the 24 hours ending 03/22/19 1346 No intake/output data recorded. Safety Concerns: { EDUARDO Safety Concerns:943652439} Impairments/Disabilities: { EDUARDO Impairments/Disabilities:341171817} Nutrition Therapy: Current Nutrition Therapy: {[facility] [place] List:146026197} Routes of Feeding: {[facility] DME Other Feedings:076737156} Liquids: {[facility] liquid thickness:08579} Daily Fluid Restriction: {CHP DME Yes amt example:613830671} Last Modified Barium Swallow with Video (Video Swallowing Test): {Done Not Done Date:} Treatments at the Time of Hospital Discharge: Respiratory Treatments: Oxygen Therapy: {Therapy; copd oxygen:81883} Ventilator: { CC Vent List:464177606} Rehab Therapies: {THERAPEUTIC INTERVENTION:9517975014} Weight Bearing Status/Restrictions: {[facility] Weight Bearin} Other Medical Equipment (for information only, NOT a DME order): {EQUIPMENT:907331264} Other Treatments: Patient's personal belongings (please select all that are sent with patient): {[facility] DME Belongings:026603373} RN SIGNATURE: {Esignature:326655667} CASE MANAGEMENT/SOCIAL WORK SECTION Inpatient Status Date: observation Readmission Risk Assessment Score: Readmission Risk Risk of Unplanned Readmission: 19 Discharging to Facility/ Agency Name: [facility] Address:[address] [place] [place] [address] Dialysis Facility (if applicable) Name: Address: Dialysis Schedule: Phone: Fax: Concierge/Migrant Leader signature: at1:47 PM PHYSICIAN SECTION Prognosis: fair Condition at Discharge: stable Rehab Potential (if transferring to Rehab): fair Recommended Labs or Other Treatments After Discharge: cbc/cmp in 5 days Physician Certification: I certify the above information and transfer of Natalie Gerber is necessary for the continuing treatment of the diagnosis listed and that he requires Intermediate Facility for less 30 days. Update Admission H&P: no PHYSICIAN SIGNATURE: * Additional Instructions* Rey Mathur MD - 03/20/2019 documented in this encounter Assessments Diagnosis Dyspnea, unspecified type- Primary Peripheral edema Edema Suicidal ideation Depression, unspecified depression type Diagnosis Sciatica of left side- Primary Sciatica Diagnosis Chronic left-sided low back pain with left-sided sciatica- Primary Chest pain, unspecified type HTN (hypertension) Unspecified essential hypertension Chronic back pain Backache, unspecified HLD (hyperlipidemia) Other and unspecified hyperlipidemia Obesity Obesity, unspecified Tobacco abuse Tobacco use disorder Diagnosis Chest pain, unspecified type- Primary Diagnosis Chest pain, unspecified type Atherosclerosis Generalized and unspecified atherosclerosis Diagnosis Acute exacerbation of chronic low back pain- Primary Left leg pain Pain in limb Left leg weakness Other musculoskeletal symptoms referable to limbs Frequent falls Personal history of fall Elevated erythrocyte sedimentation rate Elevated sedimentation rate Elevated C-reactive protein (CRP) History of Present Illness * Darion Humphrey MD - 03/11/2019 12:10 PM EDT Natalie Gerber is a 58 y.o. male patient. Current Facility-Administered Medications Medication Dose Route Frequency Provider Last Rate Last Dose acetaminophen (TYLENOL) tablet 650 mg 650 mg Oral Q4H PRN Satya Boyce DO amphetamine-dextroamphetamine (ADDERALL) tablet 20 mg 20 mg Oral BID Hernadez S Bonyo, DO Stopped at 03/09/192002 aspirin chewable tablet 81 mg 81 mg Oral Daily Hernadez S Bonyo, DO 81 mg at 03/11/19 0843 atorvastatin (LIPITOR) tablet 20 mg 20 mg Oral Daily Hernadez S Bonyo, DO 20 mg at 03/11/19 0843 citalopram (CELEXA) tablet 20 mg 20 mg Oral Daily Hernadez S Bonyo, DO 20 mg at 03/11/19 0844 clopidogrel (PLAVIX) tablet 75 mg 75 mg Oral BID Hernadez S Bonyo, DO 75 mg at 03/11/19 0843 furosemide (LASIX) tablet 20 mg 20 mg Oral Daily Hernadez S Bonyo, DO 20 mg at 03/11/19 08 levothyroxine (SYNTHROID) tablet 25 mcg 25 mcg Oral Daily Hernadez S Bonyo, DO 25 mcg at 03/10/19 0616 lisinopril (PRINIVIL;ZESTRIL) tablet 2.5 mg 2.5 mg Oral Daily Hernadez S Bonyo, DO 2.5 mg at 844 nitroGLYCERIN (NITROSTAT) SL tablet 0.4 mg 0.4 mg Sublingual Q5 Min PRN Hernadez S Bonyo, DO pantoprazole (PROTONIX) tablet 40 mg 40 mg Oral QAM AC Satya Francisco Bonyo, DO 40 mg at 03/11/19 0844 oxyCODONE (ROXICODONE) immediate release tablet 5 mg 5 mg Oral Q6H PRN Satya Vasquezo, DO 5 mg at 03/11/19 0309 enoxaparin (LOVENOX) injection 40 mg 40 mg Subcutaneous Daily Hernadez S Bonyo, DO 40 mg at 03/11/19 0843 methylphenidate (RITALIN) tablet 10 mg 10 mg Oral BID WC Satya Francisco Bonyo, DO 10 mg at 03/11/19 0843 carvedilol (COREG) tablet 12.5 mg 12.5 mg Oral Daily Darion Humphrey MD 12.5 mg at 03/11/19 0843 Allergies Allergen Reactions Fish-Derived Products Ketorolac Tromethamine Nubain [Nalbuphine Hcl] Nubain [Nalbuphine Hcl] Date 03/11/19 0000 - 03/11/19 2359 Shift [id number] 6011-1735 2249-1825 24 Hour Total INTAKE P.O.(mL/kg/hr) 300(0.3) 0 300 Shift Total(mL/kg) 300(2) 0(0) 300(2) OUTPUT Urine(mL/kg/hr) 300(0.3) 0 300 Shift Total(mL/kg) 300(2) 0(0) 300(2) Weight (kg) 147.1 147.1 147.1 147.1 Subjective: Symptoms: Stable. Diet: Adequate intake. Activity level: Returning to normal. Pain: He reports no pain. Objective: General Appearance: Comfortable and well-appearing. Vital signs: (most recent): Blood pressure (!) 159/86, pulse 70, temperature 97.6 F (36.4 C), temperature source Temporal, resp. rate 18, height 5' 5" (1.651 m), weight (!) 324 lb 6.2 oz (147.1 kg), SpO2 96 %. Vital signs are normal. Output: Producing urine. HEENT: Normal HEENT exam. Lungs: Normal effort and normal respiratory rate. There are decreased breath sounds and rhonchi. Lita. Heart: Normal rate. Regular rhythm. S1 normal and S2 normal. Positive for murmur. No gallop or friction rub. Abdomen: Abdomen is soft. Bowel sounds are normal. There is no abdominal tenderness. There is no mass. Extremities: Decreased range of motion. Pulses: Distal pulses are intact. Neurological: Patient is alert and oriented to person, place and time. Pupils: Pupils are equal, round, and reactive to light. Skin: Warm and dry. Assessment: Condition: In stable condition. Improving. (Active Problems: Chest pain>>Non Cardiac HTN (hypertension)>>Meds HLD (hyperlipidemia)>>>Meds Chronic back pain Obesity Tobacco abuse). Plan: Start/continue incentive spirometry and continue respiratory treatments. Advance diet as tolerated and restricted diet. Administer medications as ordered. (Specialty Problems Cardiology Problems Hypertension >>Meds Reevaluate). SIGNATURE: Darion Humphrey MD,FACC,FASNC,CCDS;[facility] PATIENT NAME: Natalie Gerber DATE: 03/11/2019 PAGER: [phone] * Yoselin Max RN - 03/11/2019 9:20 AM EDT Pt requested prn pain medication. Upon handing medication to the pt, he states " why do all the other nurses give me a white pill and everytime You give it to me its orange?" " I take immediate release oxycodone and this is the long acting." This nurse explained to pt that we have white and orange oxy IR pills. That different manufacturers have different colors. Showed pt the wrapper of the medication and he stated " no, you're giving me the wrong medication" I again tried to explain to the pt its the same medication and he continued to talk over me. Pt stated again " your the only person that has given me an orange pill" . This nurse asked pt to give me the pill back and I would have the pharmacist return with me to verify that I am giving him the correct medication. Pt said "no, Im going to take it". I instructed the pt that if he believes it is the wrong medication he shouldn't take it and I will return with pharmacist.Pt stated " I need to take it because I'm in pain and proceededto swallow the pill.This nurse left the room to seek out pharmacist who was not on unit at this time. Liz PALACIO accompanied me with the package of white and orange pills to show pt the labels and that they are provided by different manufacturers. Pt is satisfied at this time. * Darion Humphrey MD - 03/10/2019 10:02 AM EDT Natalie Gerber is a 58 y.o. male patient. Current Facility-Administered Medications Medication Dose Route Frequency Provider Last Rate Last Dose acetaminophen (TYLENOL) tablet 650 mg 650 mg Oral Q4H PRN Hernadez S Bonyo, DO amphetamine-dextroamphetamine (ADDERALL) tablet 20 mg 20 mg Oral BID Hernadez S Bonyo, DO Stopped at 03/09/192002 aspirin chewable tablet 81 mg 81 mg Oral Daily Hernadez S Bonyo, DO 81 mg at 03/10/19 0850 atorvastatin (LIPITOR) tablet 20 mg 20 mg Oral Daily Satya Francisco Bonyo, DO 20 mg at 03/10/19 0849 citalopram (CELEXA) tablet 20 mg 20 mg Oral Daily Satya Francisco Bonyo, DO 20 mg at 03/10/19 0849 clopidogrel (PLAVIX) tablet 75 mg 75 mg Oral BID Satya Francisco Bonyo, DO 75 mg at 03/10/19 0849 furosemide (LASIX) tablet 20 mg 20 mg Oral Daily Satya Francisco Bonyo, DO 20 mg at 03/10/19 0849 levothyroxine (SYNTHROID) tablet 25 mcg 25 mcg Oral Daily Satya Vasquezo, DO 25 mcg at 03/10/19 0616 lisinopril (PRINIVIL;ZESTRIL) tablet 2.5 mg 2.5 mg Oral Daily Satya Vasquezo, DO 2.5 mg at 849 nitroGLYCERIN (NITROSTAT) SL tablet 0.4 mg 0.4 mg Sublingual Q5 Min PRN Satya Vasquezo, DO pantoprazole (PROTONIX) tablet 40 mg 40 mg Oral QAM AC Satya Vasquezo, DO 40 mg at 03/10/19 0613 oxyCODONE (ROXICODONE) immediate release tablet 5 mg 5 mg Oral Q6H PRN Satya Vasquezo, DO 5 mg at 03/10/19 0848 enoxaparin (LOVENOX) injection 40 mg 40 mg Subcutaneous Daily Satya Vasquezo, DO 40 mg at 03/09/19 0150 methylphenidate (RITALIN) tablet 10 mg 10 mg Oral BID WC Satya Vasquezo, DO 10 mg at 03/10/19 0848 carvedilol (COREG) tablet 12.5 mg 12.5 mg Oral Daily Darion Humphrey MD 12.5 mg at 03/10/19 0850 Allergies Allergen Reactions Fish-Derived Products Ketorolac Tromethamine Nubain [Nalbuphine Hcl] Nubain [Nalbuphine Hcl] Date 03/10/19 0000 - 03/10/192358 Shift [id number] 0790-0595 3266-5715 24 Hour Total INTAKE Shift Total(mL/kg) OUTPUT Urine(mL/kg/hr) 300(0.3) 300 Shift Total(mL/kg) 300(2) 300(2) Weight (kg) 146.7 146.7 146.7 146.7 Subjective: Symptoms: Stable. Diet: Adequate intake. Activity level: Returning to normal. Pain: He reports no pain. Objective: General Appearance: Comfortable and well-appearing. Vital signs: (most recent): Blood pressure 123/64, pulse 69, temperature 97.1 F (36.2 C), temperature source Temporal, resp. rate 20, height 5' 5" (1.651 m), weight (!) 323 lb 6.2 oz (146.7 kg), [id number] %. Vital signs are normal. Output: Producing urine. HEENT: Normal HEENT exam. Lungs: Normal effort and normal respiratory rate. There are decreased breath sounds and rhonchi. Lita. Heart: Normal rate. Regular rhythm. S1 normal and S2 normal. Positive for murmur. No gallop or friction rub. Abdomen: Abdomen is soft. Bowel sounds are normal. There is no abdominal tenderness. There is no mass. Extremities: Decreased range of motion. Pulses: Distal pulses are intact. Neurological: Patient is alert and oriented to person, place and time. Pupils: Pupils are equal, round, and reactive to light. Skin: Warm and dry. Assessment: Condition: In stable condition. Improving. (Active Problems: Chest pain>>Non Cardiac HTN (hypertension)>>Meds HLD (hyperlipidemia)>>>Meds Chronic back pain Obesity Tobacco abuse). Plan: Start/continue incentive spirometry and continue respiratory treatments. Advance diet as tolerated and restricted diet. Administer medications as ordered. (Specialty Problems Cardiology Problems Hypertension >>Meds Reevaluate). SIGNATURE: Darion Humphrey MD,FACC,FASNC,CCDS;[facility] PATIENT NAME: Natalie Gerber DATE: 03/10/2019 PAGER: [phone] * Dominga Villela DTR - 03/10/2019 8:59 AM EDT Nutrition rescreen completed. Chart reviewed. Patient to be monitored and followed by the diet physical therapy technician. * Jyotsna Copeland - 03/09/2019 2:19 PM EDT Physical Therapy Facility/Department: [facility] Initial Assessment NAME: Natalie Gerber : 1960 Date of Service: 03/09/2019 Discharge Recommendations: Continue to assess pending progress, Subacute/Intermediate Facility Assessment Body structures, Functions, Activity limitations: Decreased functional mobility ;Decreased strength;Decreased balance;Increased pain Assessment: Pt presents with increased chronic back pain, which limits functional mobility. Pt requires SBA for bed mobility and Roger for transfers and ambulation. Pt reports increased pain with activity, which decreases participation level. Pt demonstrates good safety awareness. Pending pt progress, recommend further physical therapy at SNF. Pt unable to tolerate 15 hours of therapy per week. Treatment Diagnosis: decreased functional mobility Prognosis: Good Decision Making: Low Complexity REQUIRES PT FOLLOW UP: Yes Activity Tolerance Activity Tolerance: Patient Tolerated treatment well;Patient limited by pain Patient Diagnosis(es): The encounter diagnosis was Chest pain, unspecified type. has a past medical history of Anemia, Anemia, Arthritis, CAD (coronary artery disease), CAD (coronary artery disease), CHF (congestive heart failure) (HCC), Depression, Diverticulitis, Diverticulosis, GERD (gastroesophageal reflux disease), History of pulmonary embolus (PE), Hyperlipidemia, Hypertension, OK, old, Myocardial infarct (HCC), myocardial infarction, LISA on CPAP, Pain, Pneumonia, Suicide (HCC), Thyroid disease, and Unspecified cerebral artery occlusion with cerebral infarction. has a past surgical history that includes hip surgery; back surgery; hernia repair; ECHO Compl W Dop Color Flow (02/04/2012); Cardiac catheterization; Cardiac catheterization (05/12/2013); orthopedic surgery; Knee arthroscopy; back surgery; hernia repair; Cholecystectomy; and joint replacement. Restrictions Restrictions/Precautions Restrictions/Precautions: Fall Risk Required Braces or Orthoses?: No Vision/Hearing Subjective General Chart Reviewed: Yes Patient assessed for rehabilitation services?: Yes Family / Caregiver Present: No Diagnosis: Chest pain Follows Commands: Within Functional Limits Subjective Subjective: Pt found lying in bed, agreeable to PT. Nursing notified. Pain Screening Patient Currently in Pain: Yes Pain Assessment Pain Level: 6 Pain Type: Chronic pain Pain Location: Back Vital Signs Patient Currently in Pain: Yes Orientation Orientation Overall Orientation Status: Within Normal Limits Social/Functional History Social/Functional History Lives With: Alone, Family(homeless- but can stay with uncle- but has no where to sleep) Type of Home: House Home Layout: Two level, Bed/Bath upstairs Home Access: Stairs to enter with rails Bathroom Shower/Tub: Tub/Shower unit Bathroom Toilet: Standard Bathroom Equipment: Grab bars in shower Bathroom Accessibility: Accessible Home Equipment: Rolling walker, Roll About Receives Help From: Family, Other (comment) ADL Assistance: Needs assistance Homemaking Assistance: Needs assistance Meal Prep: Maximal Laundry: Maximal Vacuuming: Maximal Cleaning: Total Gardening: Total Driving: Total Shopping: Other (comment) Transportation Job Titles: Other (comment) Homemaking Responsibilities: No Ambulation Assistance: Needs assistance Transfer Assistance: Needs assistance Active Solder Cream Maker: No Patient's Solder Cream Maker Info: INSURANCE OR FAMILY Education: NA Occupation: On disability Type of occupation: NA Leisure & Hobbies: NA IADL Comments: NEEDS ASSIST WITH ADLS- IADLS- Additional Comments: is ECF but at [facility]- currently as patient - to go to [facility]- he has HARVEY vance Cognition Objective AROM RLE (degrees) RLE AROM: WFL AROM LLE (degrees) LLE AROM : WFL Strength RLE Comment: at least 3/5 grossly Strength LLE Comment: at least 3/5 grossly Tone RLE RLE Tone: (NT) Tone LLE LLE Tone: (NT) Motor Control Gross Motor?: (NT) Sensation Overall Sensation Status: (NT) Bed mobility Rolling to Right: Independent Supine to Sit: Stand by assistance Transfers Sit to Stand: Minimal Assistance Stand to sit: Minimal Assistance Ambulation Ambulation?: Yes More Ambulation?: No Ambulation 1 Surface: level tile Device: Rolling Walker Assistance: Minimal assistance Quality of Gait: antalgic gait pattern Gait Deviations: Slow Cecy;Decreased step length Distance: 15' Stairs/Curb Stairs?: No Balance Sitting - Static: Good Sitting - Dynamic: Good;- Standing - Static: Fair Standing - Dynamic: Fair Exercises Comments: No exercises performed. Plan Plan Times per week: 5 Plan weeks: 2 Current Treatment Recommendations: Strengthening, Gait Training, Stair training, Balance Training, Functional Mobility Training, Endurance Training, Transfer Training Safety Devices Type of devices: Call light within reach, Gait belt, Patient at risk for falls, Left in bed, Nurse notified Restraints Initially in place: No G-Code OutComes Score AM-PAC Score AM-PAC Inpatient Mobility Raw Score : 15 (03/09/191408) AM-PAC Inpatient T-Scale Score : 39.45 (03/09/191408) Mobility Inpatient CMS 0-100% Score: 57.7 (03/09/191408) Mobility Inpatient [facility] G-Code Modifier : CK (03/09/191408) Goals Short term goals Time Frame for Short term goals: 2 weeks Short term goal 1: Independently perform all bed mobility. Short term goal 2: Independently perform all transfers. Short term goal 3: Independently ambulate 30' with least restrictive device. Short term goal 4: Negotiate 5 steps with supervision. Short term goal 5: Independently garbage pick up man object from ground while standing. Patient Goals Patient goals : To go home. Therapy Time Individual Concurrent Group Co-treatment Time In 1357 Time Out 1409 Minutes 12 Patient s Physical Therapy Plan of Care supervision is transferred to [facility] Rehab Department Physical Therapist. Goals and/or treatment plan was established in collaboration with patient/family/other representatives. Jyotsna Copeland, SPT documented in this encounter* Laura Curry DTR - 05/08/2019 11:30 AM EST Nutrition rescreen completed. Chart reviewed. Patient NPO for a procedure. Patient to be monitored and followed by the diet physical therapy technician. * Elida Zuluaga MD - 05/08/2019 10:00 AM EST Hospitalist Progress Note 05/08/2019 10:00 AM Subjective: Admit Date: 05/06/2019 PCP: SATYA BOYCE DO Advance Directive: Prior Interval History: No chest pain. He refused his stress test and wants to go home Diet NPO, After Midnight Intake/Output Summary (Last 24 hours) at 05/08/2019 1000 Last data filed at 05/07/20192051 Gross per 24 hour Intake 310 ml Output 450 ml Net -140 ml Medications: Fish-derived products; Ketorolac tromethamine; Nubain [nalbuphine hcl]; and Nubain [nalbuphine hcl] Current Facility-Administered Medications: sodium chloride flush 0.9 % injection 10 mL, 10 mL, Intravenous, PRN, Elida Zuluaga MD 0.9 % sodium chloride infusion, 500 mL, Intravenous, Continuous PRN, Elida Zuluaga MD albuterol sulfate HFA 108 (90 Base) MCG/ACT inhaler 2 puff, 2 puff, Inhalation, PRN, Elida Zuluaga MD atropine injection 0.5 mg, 0.5 mg, Intravenous, Q5 Min PRN, Elida Zuluaga MD nitroGLYCERIN (NITROSTAT) SL tablet 0.4 mg, 0.4 mg, Sublingual, Q5 Min PRN, Elida Zuluaga MD metoprolol (LOPRESSOR) injection 5 mg, 5 mg, Intravenous, Q5 Min PRN, Eliad Zuluaga MD aminophylline injection 50 mg, 50 mg, Intravenous, PRN, Elida Zuluaga MD acetaminophen (TYLENOL) tablet 650 mg, 650 mg, Oral, Q4H PRN, Elida Zuluaga MD aspirin chewable tablet 81 mg, 81 mg, Oral, Daily, Elida Zuluaga MD, 81 mg at 05/08/19 09 atorvastatin (LIPITOR) tablet 20 mg, 20 mg, Oral, Daily, Elida Zuluaga MD, 20 mg at 05/08/19 09 citalopram (CELEXA) tablet 20 mg, 20 mg, Oral, Daily, Elida Zuluaga MD, 20 mg at 05/08/19908 clopidogrel (PLAVIX) tablet 75 mg, 75 mg, Oral, Daily, Elida Zuluaga MD, 75 mg at 05/08/19908 furosemide (LASIX) tablet 20 mg, 20 mg, Oral, Daily, Elida Zuluaga MD, 20 mg at 05/08/19 09 levothyroxine (SYNTHROID) tablet 25 mcg, 25 mcg, Oral, Daily, Elida Zuluaga MD, 25 mcg at 05/08/19 0614 lisinopril (PRINIVIL;ZESTRIL) tablet 2.5 mg, 2.5 mg, Oral, Daily, Elida Zuluaga MD, 2.5 mg at 05/08/19 09 nitroGLYCERIN (NITROSTAT) SL tablet 0.4 mg, 0.4 mg, Sublingual, Q5 Min PRN, Elida Zuluaga MD pantoprazole (PROTONIX) tablet 40 mg, 40 mg, Oral, QAM AC, Elida Zuluaga MD, 40 mg at 4 oxyCODONE (ROXICODONE) immediate release tablet 5 mg, 5 mg, Oral, Q6H PRN, Elida Zuluaga MD, 5mg at 05/08/19 06 QUEtiapine (SEROQUEL) tablet 100 mg, 100 mg, Oral, Nightly, Elida Zuluaga MD, 100 mg at 05/07/192121 regadenoson (LEXISCAN) injection 0.4 mg, 0.4 mg, Intravenous, ONCE PRN, Elida Zuluaga MD methylphenidate (RITALIN) tablet 20 mg, 20 mg, Oral, BID , Elida Zuluaga MD, 20 mg at 05/08/19 09 carvedilol (COREG) tablet 6.25 mg, 6.25 mg, Oral, BID , Elida Zuluaga MD, 6.25 mg at 05/08/19 09 ondansetron (ZOFRAN) tablet 4 mg, 4 mg, Oral, Q8H PRN, Elida Zuluaga MD, 4 mg at 05/07/19 180 [COMPLETED] Saline lock IV, , , Continuous AND sodium chloride flush 0.9 % injection 3 mL, 3 mL, Intravenous, Q8H, Asha Ochoa DO, 3 mL at 05/07/192121 nitroglycerin (NITRO-BID) 2 % ointment 0.5 inch, 0.5 inch, Topical, 4 times per day, Asha Ochoa DO, 0.5 inch at 05/08/19 0614 LABS: Recent Labs 05/07/19 0705/08/19 0621 WBC 12.2* 10.0 HGB 10.6* 10.5* PLT 240 234 Recent Labs 05/06/19203905/08/19 0621 NA 141 138 K 4.3 4.0 CL 104 106 CO2 26 24 BUN 13 16 CREATININE 0.75 0.82 GLUCOSE 108* 101* No results for input(s): INR in the last 72 hours. Invalid input(s): PT Recent Labs 05/06/19203905/07/19 0702 TROPONINI <0.012 <0.012 Objective: Vitals: Vitals: 05/07/19 1740 05/07/19 1940 05/07/19 2259 05/08/19 0847 BP: 123/79 (!) 143/89 (!) 118/51 Pulse: 83 79 85 77 Resp: 18 18 22 Temp: 97 F (36.1 C) 97.1 F (36.2 C) 97.2 F (36.2 C) TempSrc: Temporal Temporal Temporal SpO2: 97% 97% 95% Weight: Height: General appearance: alert and cooperative with exam HEENT: PERRL, mucous membranes are moist, neck supple Lungs: Lungs are clear with good air exchange bilaterally Heart:: Regular rate and rhythm with no murmurs or gallops Abdomen: Soft, non-tender with no guarding or rebound, no palpable masses Extremities: Good ROM all 4 extremities, no edema, distal pulses intact Neurologic: No obvious focal neurologic deficits. Psychologic: Alert and Oriented to Person, Place, and Time Skin: No rashes Assessment: Active Problems: Chest pain Resolved Problems: * No resolved hospital problems. * Plan: Discharge. Stress test as outpatient Discharge planning: home today ELIDA ZUULAGA MD 05/08/2019 * Stephanie Gayle RN - 05/08/2019 9:40 AM EST Noted pt's transport to department cancelled. [facility] called. Per RN patient is refusing NST. * Jflilliana Yandy Marnie, PT - 05/07/2019 11:09 AM EST Physical Therapy Facility/Department: [facility] Initial Assessment NAME: Natalie Gerber : 1960 Date of Service: 05/07/2019 Discharge Recommendations: Subacute/Intermediate Facility Assessment Body structures, Functions, Activity limitations: Decreased functional mobility ;Decreased strength Assessment: Pt's functional mobility significantly limited by his current pain; unable to ambulate further than 15ft with min assist, likely unable to negotiate stairs for safe homegoing. Pt unsafe to return home alone at this time, rec SNF at disch. Prognosis: Good Decision Making: Low Complexity REQUIRES PT FOLLOW UP: Yes Activity Tolerance Activity Tolerance: Patient limited by pain Patient Diagnosis(es): The encounter diagnosis was Chest pain, unspecified type. has a past medical history of Anemia, Anemia, Arthritis, CAD (coronary artery disease), CAD (coronary artery disease), CHF (congestive heart failure) (HCC), Depression, Diverticulitis, Diverticulosis, GERD (gastroesophageal reflux disease), History of pulmonary embolus (PE), Hyperlipidemia, Hypertension, [place], old, Myocardial infarct (HCC), myocardial infarction, LISA on CPAP, Pain, Pneumonia, Suicide (HCC), Thyroid disease, and Unspecified cerebral artery occlusion with cerebral infarction. has a past surgical history that includes hip surgery; back surgery; hernia repair; ECHO Compl W Dop Color Flow (02/04/2012); Cardiac catheterization; Cardiac catheterization (05/12/2013); orthopedic surgery; Knee arthroscopy; back surgery; hernia repair; Cholecystectomy; and joint replacement. Restrictions Restrictions/Precautions Restrictions/Precautions: Fall Risk Position Activity Restriction Other position/activity restrictions: No bed alarm on at start of eval Vision/Hearing Subjective General Chart Reviewed: Yes Patient assessed for rehabilitation services?: Yes Family / Caregiver Present: No Diagnosis: chest pain Follows Commands: Within Functional Limits Subjective Subjective: Pt sitting up at EOB upon PT arrival. Pt reports he just got discharged from prison without his pain meds and developed increased back pain & chest pain. Pain Screening Patient Currently in Pain: Yes Pain Assessment Pain Assessment: 0-10 Pain Level: 7 Pain Type: Chronic pain Pain Location: Back Vital Signs Patient Currently in Pain: Yes Orientation Orientation Overall Orientation Status: Within Normal Limits Social/Functional History Social/Functional History Lives With: Alone Type of Home: House Home Layout: Two level, Bed/Bath upstairs Home Access: Stairs to enter with rails Entrance Stairs - Number of Steps: 7 Entrance Stairs - Rails: Both Bathroom Shower/Tub: Tub/Shower unit, Shower chair with back Bathroom Equipment: Grab bars in shower Bathroom Accessibility: Accessible Home Equipment: Cane, Sock aid, 4 wheeled walker Receives Help From: Family, Friend(s) ADL Assistance: Needs assistance Homemaking Assistance: Needs assistance Homemaking Responsibilities: Yes Ambulation Assistance: Needs assistance Transfer Assistance: Independent Active Solder Cream Maker: No Patient's Solder Cream Maker Info: Family or insurance provides rides Mode of Transportation: Car, Bus, Van, Family Occupation: On disability Additional Comments: currently at SNF Cognition Objective PROM RLE (degrees) RLE PROM: WFL AROM RLE (degrees) RLE AROM: WNL PROM LLE (degrees) LLE PROM: WFL AROM LLE (degrees) LLE AROM : WNL Strength RLE Comment: functionally 4-/5 Strength LLE Comment: functionally 4-/5 Transfers Stand to sit: Contact guard assistance Bed to Chair: Contact guard assistance Comment: Pt utilizes momentum for sit-->stand transfers Ambulation Ambulation?: Yes Ambulation 1 Surface: level tile Device: Rolling Walker Assistance: Minimal assistance Quality of Gait: hard steppage gait LLE Gait Deviations: Decreased step height;Decreased step length;Slow Cecy Distance: 15ft Comments: Pt utilizes shopping cart style posture, leaning on his forearms on his rollator Balance Posture: Fair Sitting - Static: Good Sitting - Dynamic: Good;- Standing - Static: Fair;+ Standing - Dynamic: Fair Plan Plan Times per week: 2-3 Plan weeks: 2 Current Treatment Recommendations: Strengthening, Functional Mobility Training, Gait Training, Transfer Training Safety Devices Type of devices: All fall risk precautions in place, Gait belt, Patient at risk for falls, Left in bed, Call light within reach(Pt left sitting EOB) G-Code OutComes Score AM-PAC Score AM-PAC Inpatient Mobility Raw Score : 18 (05/07/19 1101) AM-PAC Inpatient T-Scale Score : 43.63 (05/07/19 1101) Mobility Inpatient CMS 0-100% Score: 46.58 (05/07/19 1101) Mobility Inpatient CMS G-Code Modifier : CK (05/07/19 110) Goals Short term goals Time Frame for Short term goals: 2wks Short term goal 1: modif indep with bed mobility Short term goal 2: modif indep with transfers Short term goal 3: Amb x 50ft with device/modif indep Patient Goals Patient goals : To get my pain under control Therapy Time Individual Concurrent Group Co-treatment Time In 1030 Time Out 1047 Minutes 17 Patient s Physical Therapy Plan of Care supervision is transferred to [facility] Rehab Department Physical Therapist. Goals and/or treatment plan was established in collaboration with patient/family/other representatives. Plan to be activated only if patient is admitted or for assessing discharge needs. Yandy Marroquin, PT * Charlotte Sanchez RN - 05/07/2019 7:12 AM EST Patient informed me that he had a fall at home and hit his head and has had a headache since. Dr. Zuluaga notified. * Charlotte Sanchez RN - 05/07/2019 6:[address] Zuluaga for question re Stress Test * Charlotte Sanchez RN - 05/07/2019 5:13 AM EST Left message with Dr. Zuluaga for admission orders. Waiting for call back. documented in this encounter* Debora Santizo RN - 01/31/2020 3:04 PM EDT Pt medicated for c/o pain to low back radiating down L.buttocks/L.leg. pt in no apparent distress. Sitting on edge of bed watching TV. Primary RN Raina Toure RN * Raina Ferro RN - 01/31/2020 1:32 PM EDT Report called to Shy PALACIO at [facility]. Patient to be transferred at 1700. * Raina Ferro RN - 01/31/2020 12:02 PM EDT Attempted to call [facility] to give report. Was placed on hold for an extended period of time. Will attempt again. * Raina Ferro RN - 01/31/2020 11:[address] Boyce patient to be transferred to [facility] today at 1430. He stated to have them call him when he gets there. * Raina Ferro RN - 01/31/2020 9:[address] Boyce patient requesting hard copies of his prescriptions for oxycodone and Ritalin. Patient stated if he waits until he gets to the facility he is going to it will take three days for the doctor to give it to him there. Dr Boyce told this RN that when he gets approval to call and let him know and he will call over there and take care of it. Will notify patient. * Raina Ferro RN - 01/31/2020 7:[address] Boyce on floor to see patient. Notified him that patient had refused his morning labs yesterday,had no morning labs for today scheduled. No new orders received. * Sheyla Merchant PT - 01/30/2020 2:21 PM EDT Physical Therapy Facility/Department[facility] Daily Treatment Note NAME: Natalie Gerber : 1960 Date of Service: 01/30/2020 *N95 mask, goggles, gown and gloves worn by this PT throughout pt encounter* Discharge Recommendations: Subacute/Intermediate Facility Assessment Body structures, Functions, Activity limitations: Decreased functional mobility ;Decreased ADL status;Decreased endurance;Decreased strength;Decreased balance;Increased pain Assessment: pt w/ antalgic gait. Limited by back/LLE pain as well as endurance to activity. High fall risk. Rec SNF. Treatment Diagnosis: chest pain Prognosis: Fair REQUIRES PT FOLLOW UP: Yes Activity Tolerance Activity Tolerance: Patient limited by pain Patient Diagnosis(es): The encounter diagnosis was Chest pain, unspecified type. has a past medical history of Anemia, Anemia, Arthritis, CAD (coronary artery disease), CAD (coronary artery disease), CHF (congestive heart failure) ([facility]), Depression, Diverticulitis, Diverticulosis, GERD (gastroesophageal reflux disease), History of pulmonary embolus (PE), Hyperlipidemia, Hypertension, OK, old, Myocardial infarct ([facility]), myocardial infarction, LISA on CPAP, Pain, Pneumonia, Suicide ([facility]), Thyroid disease, and Unspecified cerebral artery occlusion with cerebral infarction. has a past surgical history that includes hip surgery; back surgery; hernia repair; ECHO Compl W Dop Color Flow (02/04/2012); Cardiac catheterization; Cardiac catheterization (05/12/2013); orthopedic surgery; Knee arthroscopy; back surgery; hernia repair; Cholecystectomy; and joint replacement. Restrictions Restrictions/Precautions Restrictions/Precautions: Fall Risk Required Braces or Orthoses?: No Lower Extremity Weight Bearing Restrictions Right Lower Extremity Weight Bearing: Weight Bearing As Tolerated Left Lower Extremity Weight Bearing: Weight Bearing As Tolerated Subjective General Chart Reviewed: Yes Family / Caregiver Present: No Subjective Subjective: pt seated in chair, agrees to PT. General Comment Comments: Requested for see today per RN Pain Screening Patient Currently in Pain: Yes(11/09 low back to LLE) Vital Signs Patient Currently in Pain: Yes(11/09 low back to LLE) Cognition Cognition Overall Cognitive Status: WFL Objective Transfers Sit to Stand: Contact guard assistance Stand to sit: Minimal Assistance Ambulation Ambulation?: Yes More Ambulation?: No Ambulation 1 Surface: level tile Device: Rollator Assistance: Minimal assistance Quality of Gait: Antalgic gait LLE, forward flexed posture Gait Deviations: Slow Cecy;Decreased step length;Decreased step height Distance: 30' Stairs/Curb Stairs?: No Balance Posture: Fair Sitting - Static: Good Sitting - Dynamic: Good Standing - Static: Fair;+ Standing - Dynamic: Fair AM-PAC Score AM-PAC Inpatient Mobility Raw Score : 13 (01/30/201419) AM-PAC Inpatient T-Scale Score : 36.74 (01/30/201419) Mobility Inpatient CMS 0-100% Score: 64.91 (01/30/201419) Mobility Inpatient CMS G-Code Modifier : CL (01/30/201419) Goals Short term goals Time Frame for Short term goals: 2 Short term goal 1: transfers modified independent - PROGRESSING Short term goal 2: ambulate 150 ft, rollator walker, modified independent - SLOWLY PROGRESSING Patient Goals Patient goals : To be able to walk. Plan Plan Times per week: 3-5x/wk Plan weeks: 2 Current Treatment Recommendations: Strengthening, Transfer Training, Balance Training, Gait Training, Functional Mobility Training, Home Exercise Program Safety Devices Type of devices: All fall risk precautions in place, Call light within reach, Patient at risk for falls, Left in chair, Nurse notified Restraints Initially in place: No Therapy Time Individual Concurrent Group Co-treatment Time In 1402 Time Out 1413 Minutes 11 Sheyla Merchant PT * Elida Zuluaga MD - 01/30/2020 12:57 PM EDT Hospitalist Progress Note 01/30/2020 12:57 PM Subjective: Admit Date: 01/26/2020 PCP: SATYA BOYCE DO Advance Directive: Prior Interval History: No CP. He is awaiting ECF transfer. No new issues DIET CARDIAC; No intake or output data in the 24 hours ending 01/30/20 1257 Medications: Fish-derived products; Ketorolac tromethamine; Nubain [nalbuphine hcl]; and Nubain [nalbuphine hcl] Current Facility-Administered Medications: atorvastatin (LIPITOR) tablet 80 mg, 80 mg, Oral, Nightly, Paulo Sanderson MD, 80 mg at promethazine (PHENERGAN) injection 25 mg, 25 mg, Intramuscular, Once, Hernadez S Bonyo, DO oxyCODONE (ROXICODONE) immediate release tablet 5 mg, 5 mg, Oral, Q4H PRN, Hernadez S Bonyo, DO, 5 mgat 01/30/20 09 nitroGLYCERIN (NITROSTAT) SL tablet 0.4 mg, 0.4 mg, Sublingual, Q5 Min PRN, Hernadez S Bonyo, DO aspirin chewable tablet 81 mg, 81 mg, Oral, Daily, Hernadez S Bonyo, DO, 81 mg at 01/30/20732 clopidogrel (PLAVIX) tablet 75 mg, 75 mg, Oral, Daily, Hernadez S Bonyo, DO, 75 mg at 01/30/20732 citalopram (CELEXA) tablet 20 mg, 20 mg, Oral, Daily, Hernadez S Bonyo, DO, 20 mg at 01/30/20733 levothyroxine (SYNTHROID) tablet 25 mcg, 25 mcg, Oral, Daily, Hernadez S Bonyo, DO, 25 mcg at 01/30/20551 QUEtiapine (SEROQUEL) tablet 100 mg, 100 mg, Oral, Nightly, Hernadez S Bonyo, DO, 100 mg at 01/29/202104 carvedilol (COREG) tablet 25 mg, 25 mg, Oral, BID WC, Hernadez S Bonyo, DO, 25 mg at 01/30/20732 lisinopril (PRINIVIL;ZESTRIL) tablet 20 mg, 20 mg, Oral, Daily, Hernadez S Bonyo, DO, 20 mg at 01/30/20732 furosemide (LASIX) tablet 20 mg, 20 mg, Oral, BID, Hernadez S Bonyo, DO, 20 mg at 01/30/20552 tamsulosin (FLOMAX) capsule 0.4 mg, 0.4 mg, Oral, Nightly, Hernadez S Bonyo, DO, 0.4 mg at 01/29/202104 ibuprofen (ADVIL;MOTRIN) tablet 400 mg, 400 mg, Oral, BID, Hernadez S Bonyo, DO, 400 mg at 01/30/20732 enoxaparin (LOVENOX) injection 40 mg, 40 mg, Subcutaneous, Daily, Hernadez S Bonyo, DO, 40 mg at 01/30/20 0733 pantoprazole (PROTONIX) tablet 40 mg, 40 mg, Oral, QAM AC, Satya Francisco Bonyo, DO, 40 mg at 01/30/20 0552 methylphenidate (RITALIN) tablet 20 mg, 20 mg, Oral, BID WC, Satya Francisco Bonyo, DO, 20 mg at 01/30/20 0733 promethazine (PHENERGAN) injection 12.5 mg, 12.5 mg, Intravenous, Q6H PRN, Satya Francisco Bonyo, DO, 12.5mg at 01/27/20 2100 [COMPLETED] Saline lock IV, , , Continuous AND sodium chloride flush 0.9 % injection 3 mL, 3 mL, Intravenous, Q8H, Satya Francisco Bonyo, DO, 3 mL at 01/30/20 0445 LABS: Recent Labs 01/28/20 0855 WBC 9.7 HGB 10.9* PLT 243 Recent Labs 01/28/20 0853 NA 136 K 3.8 CL 102 CO2 26 BUN 14 CREATININE 0.62 GLUCOSE 127* No results for input(s): INR in the last 72 hours. Invalid input(s): PT No results for input(s): TROPONINI in the last 72 hours. Objective: Vitals: Vitals: 01/29/20 2306 01/30/20 0307 01/30/20 0731 01/30/20 1027 BP: 120/63 (!) 109/55 127/62 120/72 Pulse: 85 73 70 90 Resp: 18 18 15 23 Temp: 98.6 F (37 C) 97.9 F (36.6 C) 97.8 F (36.6 C) 96.5 F (35.8 C) TempSrc: Temporal Temporal Temporal Temporal SpO2: 96% 97% 99% 97% Weight: Height: General appearance: alert and cooperative with exam HEENT: PERRL, mucous membranes are moist, neck supple Lungs: Lungs are clear with good air exchange bilaterally Heart:: Regular rate and rhythm with no murmurs or gallops Abdomen: Soft, non-tender with no guarding or rebound, no palpable masses Extremities: Good ROM all 4 extremities, no edema, distal pulses intact Neurologic: No obvious focal neurologic deficits. Psychologic: Alert and Oriented to Person, Place, and Time Skin: No rashes Assessment: Active Problems: Atherosclerosis Chest pain Resolved Problems: * No resolved hospital problems. * Plan: Discharge planning: pending ELIDA ZULUAGA MD 01/30/2020 * Shayla Hoskins, OT - 01/30/2020 10:44 AM EDT Occupational Therapy Occupational Therapy Initial Assessment Date: 01/30/2020 Patient Name: Natalie Gerber : 1960 Date of Service: 01/30/2020 Discharge Recommendations: Subacute/Intermediate Facility Assessment Performance deficits / Impairments: Decreased functional mobility ;Decreased safe awareness;Decreased balance;Decreased ADL status;Decreased posture;Decreased endurance;Decreased high-level IADLs;Decreased strength Assessment: Pt presents with the above deficits and requires CGA with transfers, min assist with functional mobility, and ADL's. Pt would benefit from continued therapies to maximize potential. Recommend SNF level therapies at discharge. Prognosis: Good Decision Making: Low Complexity REQUIRES OT FOLLOW UP: Yes Activity Tolerance Activity Tolerance: Patient limited by fatigue;Patient limited by pain Safety Devices Safety Devices in place: Yes Type of devices: All fall risk precautions in place;Call light within reach;Gait belt;Patient at risk for falls;Nurse notified;Left in chair Patient Diagnosis(es): The encounter diagnosis was Chest pain, unspecified type. has a past medical history of Anemia, Anemia, Arthritis, CAD (coronary artery disease), CAD (coronary artery disease), CHF (congestive heart failure) ([facility]), Depression, Diverticulitis, Diverticulosis, GERD (gastroesophageal reflux disease), History of pulmonary embolus (PE), Hyperlipidemia, Hypertension, [place], old, Myocardial infarct (HCC), myocardial infarction, LISA on CPAP, Pain, Pneumonia, Suicide (HCC), Thyroid disease, and Unspecified cerebral artery occlusion with cerebral infarction. has a past surgical history that includes hip surgery; back surgery; hernia repair; ECHO Compl W Dop Color Flow (02/04/2012); Cardiac catheterization; Cardiac catheterization (05/12/2013); orthopedic surgery; Knee arthroscopy; back surgery; hernia repair; Cholecystectomy; and joint replacement. Restrictions Restrictions/Precautions Restrictions/Precautions: Fall Risk Required Braces or Orthoses?: No Subjective General Chart Reviewed: Yes Patient assessed for rehabilitation services?: Yes Family / Caregiver Present: No Diagnosis: Chest Pain Subjective Subjective: Pt sitting in chair. Agreeable to OT. General Comment Comments: Pt presents after being d/c'd from [facility] one day prior to admit to [facility]. Patient Currently in Pain: Yes(low back and radiates down Left LE (especially when weight bearing) 3-09/09) Social/Functional History Social/Functional History Lives With: Spouse Type of Home: (Recent d/c from [facility].....states back in May he was staying with his 's uncle who is 80+ y/o and pt doesn't want to stay there bc there are steps he can't do.) Home Equipment: Roll About ADL Assistance: Independent Homemaking Assistance: Needs assistance Meal Prep: Maximal Laundry: Total Vacuuming: Total Cleaning: Total Gardening: Total Yard Work: Total Driving: Total Shopping: Total Ambulation Assistance: Needs assistance(uses rolator) Transfer Assistance: Needs assistance Active Solder Cream Maker: No Occupation: On disability Additional Comments: Per pt, at [facility] he was supervision with ADL's, supervision with transfers and amb with a rollator. Pt states his is a long time resident of [place] x 9 years. (They don'ttake the pt's insurance or he would go there.) Objective Orientation Overall Orientation Status: Within Functional Limits Balance Sitting Balance: Supervision(good) Standing Balance: Minimal assistance(fair -) Standing Balance Comment: Static standing balance while leaning on bilateral forearms on armrests of rollator. Pt stated he used to be able to hold onto the rollator with his hands back in Dec, but his back and left LE have gotten so much worse that he can't stand that straight anymore and has no choice but to leanon his arms. Functional Mobility Functional Mobility Comments: Functional mobility with use of rollator while leaning onto/through bilateral forearms for ambulation with min assist. ADL LE Dressing: (Doff/don bilateral tennis shoes (doesn't tie laces) with supervision.) Tone RUE RUE Tone: Normotonic Tone LUE LUE Tone: Normotonic Transfers Stand Step Transfers: Minimal assistance Sit to stand: Contact guard assistance Stand to sit: Contact guard assistance Transfer Comments: Verbal cues for correct placement of bilateral hands when performing transfers, sequencing, and safety awareness. Pt performed sit to stand transfer from chair as well as from EOB,both with CGA and verbal cues. Vision - Basic Assessment Prior Vision: (Pt wears glasses all the time.) Cognition Overall Cognitive Status: WFL Sensation Overall Sensation Status: ((+) numbness & tingling in bilateral hands, but can detect light touch even though he states it is dull.) LUE AROM (degrees) LUE AROM : WFL RUE AROM (degrees) RUE AROM : WFL LUE Strength Gross LUE Strength: (4/5) RUE Strength Gross RUE Strength: (4/5) Plan Plan Times per week: 3-5x/wk Plan weeks: 2 weeks Current Treatment Recommendations: Strengthening, Endurance Training, Patient/Caregiver Education & Training, Self-Care / ADL, Balance Training, Home Management Training, Functional Mobility Training, Safety Education & Training OutComes Score AM-[facility] Daily Activity Inpatient How much help for putting on and taking off regular lower body clothing?: A Little How much help for Bathing?: A Little How much help for Toileting?: A Little How much help for putting on and taking off regular upper body clothing?: A Little How much help for taking care of personal grooming?: A Little How much help for eating meals?: A Little AM-[facility] Inpatient Daily Activity Raw Score: 18 AM-[facility] Inpatient ADL T-Scale Score : 38.66 ADL Inpatient CMS 0-100% Score: 46.65 ADL Inpatient CMS G-Code Modifier : CK AM-PAC Score AM-[facility] Inpatient Daily Activity Raw Score: 18 (01/30/20 104) AM-[facility] Inpatient ADL T-Scale Score : 38.66 (01/30/201043) ADL Inpatient CMS 0-100% Score: 46.65 (01/30/20 104) ADL Inpatient CMS G-Code Modifier : CK (01/30/201043) Goals Short term goals Time Frame for Short term goals: 2 weeks Short term goal 1: LE dressing with modif indep. Short term goal 2: Toilet transfer with modif indep. Short term goal 3: Static standing balance during bilateral UE task x 3-5 mins with modif indep andgood safety awareness. Short term goal 4: Simulated kitchen mobility with 3-4 item retrieval with modif indep and good safety awareness. Patient Goals Patient goals : None stated. Therapy Time Individual Concurrent Group Co-treatment Time In 1013 Time Out 1027 Minutes 14 Goals and/or treatment plan was established in collaboration with patient/family/other representatives. Patient's Occupational Therapy Plan of Care [facility] This provider wore an N95, face shield, and gloves for the duration of the session with this pt. Shayla Hoskins MS, OTR/L * Raina Ferro RN - 01/30/2020 9:46 AM EDT Patient again refusing morning labs. Refused for this RN to have [facility] come draw his labs with the ultrasound. * Raina Ferro RN - 01/30/2020 7:39 AM EDT Patient refused morning labs to this RN. Stated he is a hard poke and does not want his labs drawn. * Elida Zuluaga MD - 01/29/2020 12:15 PM EDT Hospitalist Progress Note 01/29/2020 12:15 PM Subjective: Admit Date: 01/26/2020 PCP: SATYA BOYCE DO Advance Directive: Prior Interval History: No CP. He is awaiting ECF transfer DIET CARDIAC; Intake/Output Summary (Last 24 hours) at 01/29/2020 1215 Last data filed at 01/28/2020 1349 Gross per 24 hour Intake 100 ml Output Net 100 ml Medications: Fish-derived products; Ketorolac tromethamine; Nubain [nalbuphine hcl]; and Nubain [nalbuphine hcl] Current Facility-Administered Medications: atorvastatin (LIPITOR) tablet 80 mg, 80 mg, Oral, Nightly, Paulo Sanderson MD promethazine (PHENERGAN) injection 25 mg, 25 mg, Intramuscular, Once, Satya Boyce DO oxyCODONE (ROXICODONE) immediate release tablet 5 mg, 5 mg, Oral, Q4H PRN, Hernadez S Bonyo, DO, 5 mgat 01/29/20 0858 nitroGLYCERIN (NITROSTAT) SL tablet 0.4 mg, 0.4 mg, Sublingual, Q5 Min PRN, Hernadez S Bonyo, DO aspirin chewable tablet 81 mg, 81 mg, Oral, Daily, Hernadez S Bonyo, DO, 81 mg at 01/29/20901 clopidogrel (PLAVIX) tablet 75 mg, 75 mg, Oral, Daily, Hernadez S Bonyo, DO, 75 mg at 01/29/20907 citalopram (CELEXA) tablet 20 mg, 20 mg, Oral, Daily, Hernadez S Bonyo, DO, 20 mg at 01/29/20904 levothyroxine (SYNTHROID) tablet 25 mcg, 25 mcg, Oral, Daily, Hernadez S Bonyo, DO, 25 mcg at 01/28/20626 QUEtiapine (SEROQUEL) tablet 100 mg, 100 mg, Oral, Nightly, Hernadez S Bonyo, DO, 100 mg at 01/27/202050 carvedilol (COREG) tablet 25 mg, 25 mg, Oral, BID WC, Hernadez S Bonyo, DO, 25 mg at 01/29/20904 lisinopril (PRINIVIL;ZESTRIL) tablet 20 mg, 20 mg, Oral, Daily, Hernadez S Bonyo, DO, 20 mg at 01/29/20908 furosemide (LASIX) tablet 20 mg, 20 mg, Oral, BID, Hernadez S Bonyo, DO, 20 mg at 01/29/20904 tamsulosin (FLOMAX) capsule 0.4 mg, 0.4 mg, Oral, Nightly, Hernadez S Bonyo, DO, 0.4 mg at 01/29/20907 ibuprofen (ADVIL;MOTRIN) tablet 400 mg, 400 mg, Oral, BID, Hernadez S Bonyo, DO, 400 mg at 01/29/20902 enoxaparin (LOVENOX) injection 40 mg, 40 mg, Subcutaneous, Daily, Hernadez S Bonyo, DO, 40 mg at 01/29/20907 pantoprazole (PROTONIX) tablet 40 mg, 40 mg, Oral, QAM AC, Hernadez S Bonyo, DO, 40 mg at 01/29/20 0905 methylphenidate (RITALIN) tablet 20 mg, 20 mg, Oral, BID WC, Hernadez S Bonyo, DO, 20 mg at 01/29/20 0903 promethazine (PHENERGAN) injection 12.5 mg, 12.5 mg, Intravenous, Q6H PRN, Hernadez S Bonyo, DO, 12.5mg at 01/27/20 2100 [COMPLETED] Saline lock IV, , , Continuous AND sodium chloride flush 0.9 % injection 3 mL, 3 mL, Intravenous, Q8H, Hernadez S Bonyo, DO, 3 mL at 01/29/20 0914 LABS: Recent Labs 01/26/20 21001/28/20 0855 WBC 10.2 9.7 HGB 11.2* 10.9* PLT 286 243 Recent Labs 01/26/20 21001/28/20 0853 NA 138 136 K 3.7 3.8 CL 102 102 CO2 27 26 BUN 11 14 CREATININE 0.60 0.62 GLUCOSE 112* 127* No results for input(s): INR in the last 72 hours. Invalid input(s): PT Recent Labs 01/27/20 0321 01/27/20 0601 TROPONINI <0.012 <0.012 Objective: Vitals: Vitals: 01/28/20 1959 01/28/20 2249 01/29/20 0300 01/29/20 0924 BP: 123/76 112/70 119/65 (!) 144/80 Pulse: 91 79 79 78 Resp: 18 16 18 Temp: 97.3 F (36.3 C) 98.6 F (37 C) 97.9 F (36.6 C) 96.5 F (35.8 C) TempSrc: Temporal Temporal Temporal Temporal SpO2: 96% 99% 99% 98% Weight: Height: General appearance: alert and cooperative with exam HEENT: PERRL, mucous membranes are moist, neck supple Lungs: Lungs are clear with good air exchange bilaterally Heart:: Regular rate and rhythm with no murmurs or gallops Abdomen: Soft, non-tender with no guarding or rebound, no palpable masses Extremities: Good ROM all 4 extremities, no edema, distal pulses intact Neurologic: No obvious focal neurologic deficits. Psychologic: Alert and Oriented to Person, Place, and Time Skin: No rashes Assessment: Active Problems: Atherosclerosis Chest pain Resolved Problems: * No resolved hospital problems. * Plan: Discharge planning: pending ELIDA ZULUAGA MD 01/29/2020 * Raina Ferro RN - 01/28/2020 1:[address] Sanderson patients Heart cath from [facility] from 10/11/19 is on chart. * Raina Ferro RN - 01/28/2020 12:53 PM EDT Left message for Liza the airport utility worker that PT is recommending SNF at discharge. [phone] * Radha Nobles, PT - 01/28/2020 12:46 PM EDT Physical Therapy Facility[facility] Initial Assessment NAME: Natalie Gerber : 1960 Date of Service: 01/28/2020 Discharge Recommendations: Subacute/Intermediate Facility PT Equipment Recommendations Equipment Needed: No Assessment Body structures, Functions, Activity limitations: Decreased functional mobility ;Decreased ADL status;Decreased endurance;Decreased strength;Decreased balance Assessment: Pt. present with impaired mobility. Noted generalized weakness and decreased activity tolerance. Impaired balance and difficulty walking. Fall risk and pt reported multipe falls. Recommend SNF at discharge. Treatment Diagnosis: weakness Prognosis: Fair Decision Making: Low Complexity PT Education: Goals;PT Role;Plan of Care REQUIRES PT FOLLOW UP: Yes Activity Tolerance Activity Tolerance: Patient limited by pain;Patient limited by endurance;Patient limited by fatigue Patient Diagnosis(es): The encounter diagnosis was Chest pain, unspecified type. has a past medical history of Anemia, Anemia, Arthritis, CAD (coronary artery disease), CAD (coronary artery disease), CHF (congestive heart failure) (HCC), Depression, Diverticulitis, Diverticulosis, GERD (gastroesophageal reflux disease), History of pulmonary embolus (PE), Hyperlipidemia, Hypertension, [place], old, Myocardial infarct (HCC), myocardial infarction, LISA on CPAP, Pain, Pneumonia, Suicide (HCC), Thyroid disease, and Unspecified cerebral artery occlusion with cerebral infarction. has a past surgical history that includes hip surgery; back surgery; hernia repair; ECHO Compl W Dop Color Flow (02/04/2012); Cardiac catheterization; Cardiac catheterization (05/12/2013); orthopedic surgery; Knee arthroscopy; back surgery; hernia repair; Cholecystectomy; and joint replacement. Restrictions Restrictions/Precautions Restrictions/Precautions: Fall Risk, Weight Bearing Lower Extremity Weight Bearing Restrictions Right Lower Extremity Weight Bearing: Weight Bearing As Tolerated Left Lower Extremity Weight Bearing: Weight Bearing As Tolerated Vision/Hearing Vision: Within Functional Limits Hearing: Within functional limits Subjective General Chart Reviewed: Yes Patient assessed for rehabilitation services?: Yes Family / Caregiver Present: No Diagnosis: chest pain Follows Commands: Within Functional Limits General Comment Comments: Chest pain, per pt. pain on LLE, limiting his gait. Subjective Subjective: Pt. sitting at EOB, agree with PT treatment. Pain Screening Patient Currently in Pain: Yes Pain Assessment Pain Assessment: 0-10 Pain Level: 7 Pain Location: Leg Pain Orientation: Left Functional Pain Assessment: Prevents or interferes some active activities and ADLs Non-Pharmaceutical Pain Intervention(s): Ambulation/Increased Activity Orientation Orientation Overall Orientation Status: Within Normal Limits Social/Functional History Social/Functional History Lives With: Spouse Type of Home: (States can brianna at uncles but has stairs and he can not do stairs) Home Equipment: Roll About ADL Assistance: Independent Homemaking Assistance: Needs assistance Meal Prep: Maximal Laundry: Total Vacuuming: Total Cleaning: Total Gardening: Total Yard Work: Total Driving: Total Shopping: Total Ambulation Assistance: Needs assistance(uses rolator) Transfer Assistance: Needs assistance Active Solder Cream Maker: No Occupation: On disability Additional Comments: Per pt from SNF, ambulating with supervision with rollator walker. Cognition Cognition Overall Cognitive Status: WNL Objective Observation/Palpation Posture: Fair AROM RLE (degrees) RLE AROM: WFL AROM LLE (degrees) LLE AROM : WFL Strength RLE Comment: 4/5 Strength LLE Comment: 4/5 Tone RLE RLE Tone: Normotonic Motor Control Gross Motor?: WNL Sensation Overall Sensation Status: WFL Bed mobility Comment: NT- pt sitting at EOB Transfers Sit to Stand: Minimal Assistance Stand to sit: Minimal Assistance Comment: from EOB, toilet transfer Ambulation Ambulation?: Yes WB Status: No restriction More Ambulation?: Yes Ambulation 1 Surface: level tile Device: Rollator Assistance: Minimal assistance Quality of Gait: Antalgic gait Gait Deviations: Slow Cecy;Decreased step length;Decreased step height Distance: 25 ft Ambulation 2 Surface - 2: level tile Device 2: Rollator Assistance 2: Minimal assistance Gait Deviations: Slow Cecy;Decreased step length;Decreased step height Distance: 25 ft Stairs/Curb Stairs?: No Balance Posture: Fair Sitting - Static: Good Sitting - Dynamic: Good Standing - Static: Fair;+ Standing - Dynamic: Fair Plan Plan Times per week: 3-5x/wk Plan weeks: 2 Current Treatment Recommendations: Strengthening, Transfer Training, Balance Training, Gait Training, Functional Mobility Training, Home Exercise Program Safety Devices Type of devices: Call light within reach, Gait belt, Left in bed, Nurse notified Restraints Initially in place: No G-Code OutComes Score AM-[facility] Score AM-[facility] Inpatient Mobility Raw Score : 19 (01/28/20 124) [facility] Inpatient T-Scale Score : 45.44 (01/28/20 124) Mobility Inpatient CMS 0-100% Score: 41.77 (01/28/20 124) Mobility Inpatient [facility] G-Code Modifier : CK (01/28/20 124) Goals Short term goals Time Frame for Short term goals: 2 Short term goal 1: transfers modified independent Short term goal 2: ambulate 150 ft, rollator walker, modified independent Patient Goals Patient goals : To be able to walk. Patient s Physical Therapy Plan of Care supervision is transferred to [facility] Rehab Department Physical Therapist. Plan to be activated only if patient is admitted or for assessing discharge needs. Therapy Time Individual Concurrent Group Co-treatment Time In 0847 Time Out 0910 Minutes 23 Timed Code Treatment Minutes: 8 Minutes(FA) Radha Nobles PT,GCS * Raina Ferro, RN - 01/28/2020 10:48 AM EDT 22g left forearm discontinued at this time, was not flushing. * Raina Ferro RN - 01/28/2020 10:02 AM EDT Faxed release of information to [facility] for cath report at this time. * Satya Boyce DO - 01/28/2020 8:08 AM EDT Hospitalist Progress Note Subjective: Admit Date: PCP: SATYA BOYCE DO Advance Directive: No Order Interval History: Data reviewed and discussed with staff. No new acute issues overnight. Patient is complaining of chest pain but only about 2 out of 10. Most of his pains are from his back which is chronic. DIET GENERAL: Regular diet Intake/Output Summary (Last 24 hours) No intake or output data in the 24 hours ending 01/28/20 0809 Medications: Current Facility-Administered Medications Medication Dose Route Frequency Provider Last Rate Last Dose promethazine (PHENERGAN) injection 25 mg 25 mg Intramuscular Once Satya Vasquezo, DO oxyCODONE (ROXICODONE) immediate release tablet 5 mg 5 mg Oral Q4H PRN Satya Francisco Bonyo, DO 5 mg at 01/28/20 0315 nitroGLYCERIN (NITROSTAT) SL tablet 0.4 mg 0.4 mg Sublingual Q5 Min PRN Satya Francisco Bonyo, DO aspirin chewable tablet 81 mg 81 mg Oral Daily Hernadez S Bonyo, DO 81 mg at 01/27/20 1010 clopidogrel (PLAVIX) tablet 75 mg 75 mg Oral Daily Hernadez S Bonyo, DO 75 mg at 01/27/20 1010 citalopram (CELEXA) tablet 20 mg 20 mg Oral Daily Hernadez S Bonyo, DO 20 mg at 01/27/20 1232 levothyroxine (SYNTHROID) tablet 25 mcg 25 mcg Oral Daily Hernadez S Bonyo, DO 25 mcg at 01/28/20 0627 QUEtiapine (SEROQUEL) tablet 100 mg 100 mg Oral Nightly Hernadez S Bonyo, DO 100 mg at 01/27/202050 atorvastatin (LIPITOR) tablet 10 mg 10 mg Oral Daily Hernadez S Bonyo, DO 10 mg at 01/27/202049 carvedilol (COREG) tablet 25 mg 25 mg Oral BID WC Hernadez S Bonyo, DO 25 mg at 01/27/20 1720 lisinopril (PRINIVIL;ZESTRIL) tablet 20 mg 20 mg Oral Daily Hernadez S Bonyo, DO 20 mg at 01/27/20 1010 furosemide (LASIX) tablet 20 mg 20 mg Oral BID Hernadez S Bonyo, DO 20 mg at 01/28/20626 tamsulosin (FLOMAX) capsule 0.4 mg 0.4 mg Oral Nightly Hernadez S Bonyo, DO 0.4 mg at 01/27/202050 ibuprofen (ADVIL;MOTRIN) tablet 400 mg 400 mg Oral BID Hernadez S Bonyo, DO 400 mg at 01/27/202049 enoxaparin (LOVENOX) injection 40 mg 40 mg Subcutaneous Daily Satya Francisco Bonyo, DO 40 mg at 01/27/20 101 pantoprazole (PROTONIX) tablet 40 mg 40 mg Oral QAM AC Hernadez S Bonyo, DO 40 mg at 01/28/20626 methylphenidate (RITALIN) tablet 20 mg 20 mg Oral BID Hernadez S Bonyo, DO 20 mg at 01/27/20 185 promethazine (PHENERGAN) injection 12.5 mg 12.5 mg Intravenous Q6H PRN Satya S Bonyo, DO 12.5 mg at 01/27/20 2100 sodium chloride flush 0.9 % injection 3 mL 3 mL Intravenous Q8H Satya Francisco Bonyo, DO 3 mL at 01/28/200445 LABS: CBC with Differential: Lab Results Component Value Date WBC 10.2 01/26/2020 WBC 8.8 05/16/2018 RBC 4.05 01/26/2020 HGB 11.2 01/26/2020 HCT 34.5 01/26/2020 PLT 286 01/26/2020 MCV 85.2 01/26/2020 MCH 27.8 01/26/2020 MCHC 32.6 01/26/2020 RDW 15.4 01/26/2020 NRBC 6 01/06/2013 SEGSPCT 76.7% 09/18/2015 BANDSPCT 1 01/06/2013 METASPCT 3 01/06/2013 LYMPHOPCT 22.7 01/26/2020 MONOPCT 4.3 01/26/2020 MONOPCT 4.7 05/16/2018 BASOPCT 0.6 01/26/2020 BASOPCT 0.5 05/16/2018 MONOSABS 0.4 01/26/2020 MONOSABS 0.41 05/16/2018 LYMPHSABS 2.3 01/26/2020 LYMPHSABS 1.68 05/16/2018 EOSABS 0.2 01/26/2020 EOSABS 0.13 05/16/2018 BASOSABS 0.1 01/26/2020 BASOSABS 0.04 05/16/2018 DIFFTYPE NOT REPORTED 11/30/2013 CMP: Lab Results Component Value Date NA 138 01/26/2020 K 3.7 01/26/2020 CL 102 01/26/2020 CO2 27 01/26/2020 BUN 11 01/26/2020 CREATININE 0.60 01/26/2020 GFRAA 121 11/09/2019 AGRATIO 1.3 11/09/2019 LABGLOM 100 11/09/2019 GLUCOSE 112 01/26/2020 GLUCOSE 148 11/09/2019 PROT 6.3 11/09/2019 LABALBU 3.6 11/09/2019 CALCIUM 9.0 01/26/2020 BILITOT 0.3 11/09/2019 ALKPHOS 150 11/09/2019 AST 13 11/09/2019 ALT 7 11/09/2019 Objective: Vitals: Vitals: 01/28/20 0645 BP: 118/75 Pulse: 81 Resp: 15 Temp: 97.6 F (36.4 C) SpO2: 96% General appearance: alert and cooperative with exam HEENT: PERRL, mucous membranes are moist, neck supple Lungs: Lungs have adv sounds Heart:: Regular rate and rhythm with no murmurs or gallops Abdomen: Soft, non-tender with no guarding or rebound, no palpable masses Extremities: Good ROM all 4 extremities, no edema, distal pulses intact Neurologic: No obvious focal neurologic deficits. Psychologic: Alert and Oriented to Person, Place, and Time Skin: No rashes Assessment: Active Problems: Patient Active Problem List Diagnosis GERD (gastroesophageal reflux disease) Hypertension Osteoarthritis Acute left-sided weakness Hypothyroidism Dyslipidemia Morbid obesity (HCC) Mood disorder (HCC) Chronic back pain Chest pain HTN (hypertension) HLD (hyperlipidemia) Obesity Tobacco abuse MDD (major depressive disorder) Meralgia paresthetica of left side Stroke-like symptoms Anemia Leukocytosis History of stroke AVN (avascular necrosis of bone) (HCC) Back pain Recurrent falls Plan: Continue current RX Chest pain/awaiting cardiology eval. Severe physical debility/awaiting PT OT. Patient would like to go to a prison in [place]. Discharge planning: Pending/in progress SATYA BOYCE DO * Raina Ferro RN - 01/28/2020 7:52 AM EDT Cardiology consult sent at this time via makeena. * Raina Ferro RN - 01/28/2020 7:48 AM EDT This RN assumed care of patient at 0700. During report, this RN overheard Peggy RN notify Dr Avelar still needs morning labs. Patient a hard poke. Rapid RN requested to come do blood draw. * Debora Santizo RN - 01/27/2020 1:30 PM EDT [facility] Elizabeth ricks * Debora Santizo RN - 01/27/2020 1:22 PM EDT Pt medicated for c/o nausea. No emesis currently. Pt sitting on bedside watching TV. Pt in no apparent distress. Resps nonlabored. Skin pink/warm/dry. Call light in reach documented in this encounter* Elida Zuluaga MD - 03/26/2019 6:24 AM EDT Hospitalist Progress Note 03/26/2019 6:24 AM Subjective: Admit Date: 03/20/2019 PCP: SATYA BOYEC DO Advance Directive: PriorInterval History: No new complaints. He is awaiting [facility] to [facility] DIET GENERAL; No intake or output data in the 24 hours ending 03/26/19 0624 Medications: Fish-derived products; Ketorolac tromethamine; Nubain [nalbuphine hcl]; and Nubain [nalbuphine hcl] Current Facility-Administered Medications: oxyCODONE (ROXICODONE) immediate release tablet 5 mg, 5 mg, Oral, Q6H PRN, Elida Zuluaga MD, 5mg at 03/26/19 0056 methylphenidate (RITALIN) tablet 20 mg, 20 mg, Oral, BID WC, Elida Zuluaga MD, 20 mg at 03/25/19 1710 HYDROmorphone (DILAUDID) injection 1 mg, 1 mg, Intravenous, Once, Juan Jose Arizmendi MD clopidogrel (PLAVIX) tablet 75 mg, 75 mg, Oral, Daily, Hernadez S Bonyo, DO, 75 mg at 03/25/19 0940 nitroGLYCERIN (NITROSTAT) SL tablet 0.4 mg, 0.4 mg, Sublingual, Q5 Min PRN, Hernadez S Bonyo, DO aspirin chewable tablet 81 mg, 81 mg, Oral, Daily, Hernadez S Bonyo, DO, 81 mg at 03/25/19 0941 carvedilol (COREG) tablet 6.25 mg, 6.25 mg, Oral, BID, Hernadez S Bonyo, DO, 6.25 mg at 03/25/192004 furosemide (LASIX) tablet 20 mg, 20 mg, Oral, Daily, Hernadez S Bonyo, DO, 20 mg at 03/25/19 1114 citalopram (CELEXA) tablet 20 mg, 20 mg, Oral, Daily, Hernadez S Bonyo, DO, 20 mg at 03/25/19 0940 atorvastatin (LIPITOR) tablet 20 mg, 20 mg, Oral, Daily, Hernadez S Bonyo, DO, 20 mg at 03/25/192004 levothyroxine (SYNTHROID) tablet 25 mcg, 25 mcg, Oral, Daily, Hernadez S Bonyo, DO, 25 mcg at 03/25/19 0654 lisinopril (PRINIVIL;ZESTRIL) tablet 2.5 mg, 2.5 mg, Oral, Daily, Hernadez S Bonyo, DO, 2.5 mg at 03/25/19 1114 pantoprazole (PROTONIX) tablet 40 mg, 40 mg, Oral, QAM AC, Satya Francisco Bonyo, DO, 40 mg at 03/25/19 0654 acetaminophen (TYLENOL) tablet 650 mg, 650 mg, Oral, Q4H PRN, Satya Francisco Bonyo, DO enoxaparin (LOVENOX) injection 40 mg, 40 mg, Subcutaneous, Daily, Satya Vasquezo DO, 40 mg at 03/20/19 1356 QUEtiapine (SEROQUEL) tablet 100 mg, 100 mg, Oral, Nightly, Satya Vasquezo, DO, 100 mg at 03/25/192004 LABS: No results for input(s): WBC, HGB, PLT in the last 72 hours. No results for input(s): NA, K, CL, CO2, BUN, CREATININE, GLUCOSE in the last 72 hours. No results for input(s): INR in the last 72 hours. Invalid input(s): PT No results for input(s): TROPONINI in the last 72 hours. Objective: Vitals: Vitals: 03/24/19 1945 03/25/19 0938 03/25/19 1059 03/25/19 1931 BP: (!) 114/59 134/87 (!) 146/91 Pulse: 89 77 72 Resp: 20 Temp: 98.2 F (36.8 C) 96.3 F (35.7 C) 96.9 F (36.1 C) TempSrc: Temporal Temporal Temporal SpO2: 95% 98% Weight: Height: General appearance: alert and cooperative with exam HEENT: PERRL, mucous membranes are moist, neck supple Lungs: Lungs are clear with good air exchange bilaterally Heart:: Regular rate and rhythm with no murmurs or gallops Abdomen: Soft, non-tender with no guarding or rebound, no palpable masses Extremities: Good ROM all 4 extremities, no edema, distal pulses intact Neurologic: No obvious focal neurologic deficits. Psychologic: Alert and Oriented to Person, Place, and Time Skin: No rashes Assessment: Active Problems: Back pain Resolved Problems: * No resolved hospital problems. * Plan: Discharge planning: home ELIDA ZULUAGA MD 03/26/2019 * Elida Zuluaga MD - 03/25/2019 7:11 AM EDT Hospitalist Progress Note 03/25/2019 7:11 AM Subjective: Admit Date: 03/20/2019 PCP: SATYA BOYCE DO Advance Directive: PriorInterval History: No new complaints. He is going home with daughter but refusing to leave until he gets a rx for adderral DIET GENERAL; No intake or output data in the 24 hours ending 03/25/19 0711 Medications: Fish-derived products; Ketorolac tromethamine; Nubain [nalbuphine hcl]; and Nubain [nalbuphine hcl] Current Facility-Administered Medications: HYDROmorphone (DILAUDID) injection 1 mg, 1 mg, Intravenous, Once, Juan Jose Arizmendi MD clopidogrel (PLAVIX) tablet 75 mg, 75 mg, Oral, Daily, Satya Boyce DO, 75 mg at 03/24/19 1016 nitroGLYCERIN (NITROSTAT) SL tablet 0.4 mg, 0.4 mg, Sublingual, Q5 Min PRN, Satya Boyce DO aspirin chewable tablet 81 mg, 81 mg, Oral, Daily, Satya Boyce DO, 81 mg at 03/24/19 1016 carvedilol (COREG) tablet 6.25 mg, 6.25 mg, Oral, BID, Satya Boyce, DO, 6.25 mg at 03/24/191950 furosemide (LASIX) tablet 20 mg, 20 mg, Oral, Daily, Satya Boyce DO, 20 mg at 03/24/19 1017 citalopram (CELEXA) tablet 20 mg, 20 mg, Oral, Daily, Satya Boyce DO, 20 mg at 03/24/19 1017 atorvastatin (LIPITOR) tablet 20 mg, 20 mg, Oral, Daily, Satya Boyce DO, 20 mg at 03/24/191950 levothyroxine (SYNTHROID) tablet 25 mcg, 25 mcg, Oral, Daily, Satya Boyce DO, 25 mcg at 03/25/19 0654 lisinopril (PRINIVIL;ZESTRIL) tablet 2.5 mg, 2.5 mg, Oral, Daily, Hernadez S Bonyo, DO, 2.5 mg at 03/24/19 1016 pantoprazole (PROTONIX) tablet 40 mg, 40 mg, Oral, QAM AC, Hernadez S Bonyo, DO, 40 mg at 03/25/19 0654 oxyCODONE (ROXICODONE) immediate release tablet 5 mg, 5 mg, Oral, Q6H PRN, Hernadez S Bonyo, DO, 5 mgat 03/25/19 0655 acetaminophen (TYLENOL) tablet 650 mg, 650 mg, Oral, Q4H PRN, Hernadez S Bonyo, DO enoxaparin (LOVENOX) injection 40 mg, 40 mg, Subcutaneous, Daily, Hernadez S Bonyo, DO, 40 mg at 03/20/19 1356 methylphenidate (RITALIN) tablet 20 mg, 20 mg, Oral, BID WC, Hernadez S Bonyo, DO, 20 mg at 03/24/19 1653 QUEtiapine (SEROQUEL) tablet 100 mg, 100 mg, Oral, Nightly, Hernadez S Bonyo, DO, 100 mg at 03/24/191950 LABS: No results for input(s): WBC, HGB, PLT in the last 72 hours. No results for input(s): NA, K, CL, CO2, BUN, CREATININE, GLUCOSE in the last 72 hours. No results for input(s): INR in the last 72 hours. Invalid input(s): PT No results for input(s): TROPONINI in the last 72 hours. Objective: Vitals: Vitals: 03/23/19 1825 03/23/19 19203/24/19 19303/24/191944 BP: (!) 152/76 124/81 (!) 142/77 Pulse: 77 80 73 Resp: 18 16 Temp: 96.5 F (35.8 C) 97 F (36.1 C) 95.1 F (35.1 C) 98.2 F (36.8 C) TempSrc: Temporal Temporal Temporal SpO2: 95% 95% 97% Weight: Height: General appearance: alert and cooperative with exam HEENT: PERRL, mucous membranes are moist, neck supple Lungs: Lungs are clear with good air exchange bilaterally Heart:: Regular rate and rhythm with no murmurs or gallops Abdomen: Soft, non-tender with no guarding or rebound, no palpable masses Extremities: Good ROM all 4 extremities, no edema, distal pulses intact Neurologic: No obvious focal neurologic deficits. Psychologic: Alert and Oriented to Person, Place, and Time Skin: No rashes Assessment: Active Problems: Back pain Resolved Problems: * No resolved hospital problems. * Plan: Discharge planning: home ELIDA ZULUAGA MD 03/25/2019 * Jessica Ramey, PT - 03/24/2019 11:20 AM EDT Physical Therapy Facility/Department: [facility] Daily Treatment Note NAME: Natalie Gerber : 1960 Date of Service: 03/24/2019 Discharge Recommendations: Continue to assess pending progress, IP Rehab Assessment Body structures, Functions, Activity limitations: Decreased functional mobility ;Decreased strength;Decreased endurance;Decreased safe awareness;Decreased balance Assessment: Pt. has increased pain and his back pain "acts up" after ambulation. His LLE gives him pain as well. Safety is less than optimal with his elbows leaning on the rollator during ambulation,but he is insistent that this is the only way he can get around. He is at risk for falls. He would benefit from IP therapy at discharge. He is not able to navigate the stairs at home, has had multiple falls, and his bed and bath are on the second floor, requiring a total of 19 steps. His resides in a prison. Prognosis: Good;Fair PT Education: PT Role;Plan of Care;Energy Conservation Activity Tolerance Activity Tolerance: Patient limited by pain;Patient limited by fatigue;Patient limited by endurance Patient Diagnosis(es): The primary encounter diagnosis was Acute exacerbation of chronic low back pain. Diagnoses of Left leg pain, Left leg weakness, Frequent falls, Elevated erythrocyte sedimentation rate, and Elevated C-reactive protein (CRP) were also pertinent to this visit. has a past medical history of Anemia, Anemia, Arthritis, CAD (coronary artery disease), CAD (coronary artery disease), CHF (congestive heart failure) (HCC), Depression, Diverticulitis, Diverticulosis, GERD (gastroesophageal reflux disease), History of pulmonary embolus (PE), Hyperlipidemia, Hypertension, [place], old, Myocardial infarct (HCC), myocardial infarction, LISA on CPAP, Pain, Pneumonia, Suicide (HCC), Thyroid disease, and Unspecified cerebral artery occlusion with cerebral infarction. has a past surgical history that includes hip surgery; back surgery; hernia repair; ECHO Compl W Dop Color Flow (02/04/2012); Cardiac catheterization; Cardiac catheterization (05/12/2013); orthopedic surgery; Knee arthroscopy; back surgery; hernia repair; Cholecystectomy; and joint replacement. Restrictions Restrictions/Precautions Restrictions/Precautions: Fall Risk Required Braces or Orthoses?: No Position Activity Restriction Spinal Precautions: No Bending, No Lifting, No Twisting Other position/activity restrictions: unable to stand up tall or lean down and garbage pick up man items due toback pain. He had back surgery in January, but the neurologist wanted a second opinion first. He is going to get that second opinion next month. Subjective General Chart Reviewed: Yes Response To Previous Treatment: Patient with no complaints from previous session. Family / Caregiver Present: No Subjective Subjective: Pt sitting on EOB, awake, alert, and agreeable to PT eval at this time. Pt pleasant affect. General Comment Comments: Willing to ambulate with his rollator with PT. He is not able to ambulate long distances without excruciating back pain. He states he has been unable to navigate the 7 steps to enter his home or the 12 steps to get to his bedroom and bathroom.; Pain Screening Patient Currently in Pain: Yes Pain Assessment Pain Type: Chronic pain Pain Location: Back Pain Orientation: Lower Vital Signs Patient Currently in Pain: Yes Orientation Orientation Overall Orientation Status: Within Normal Limits Cognition Objective Bed mobility Supine to Sit: Supervision Comment: He uses momentum to move around Transfers Sit to Stand: Contact guard assistance Stand to sit: Contact guard assistance Comment: Use of momentum Ambulation Ambulation?: Yes More Ambulation?: No Ambulation 1 Surface: level tile Device: Rollator Assistance: Contact guard assistance Quality of Gait: Fair - Distance: 22 feet x 2 Comments: Bilateral elbows on arms of rollator with hips flexed forward and shoulders flexed forward. He states that his left LE goes out from under him sometimes and he can't control that at all. Hehurries back to the bed to be done with the task, not able to go any farther. During ambulation he sways left and right with each step. Stairs/Curb Stairs?: No AROM RLE (degrees) RLE General AROM: Limited due to pain in back AROM LLE (degrees) LLE General AROM: Limited due to pain in back G-Code OutComes Score AM-PAC Score Goals Short term goals Time Frame for Short term goals: 2 weeks Short term goal 1: Complete transfers mod indep MET Short term goal 2: Complete 100 feet supv ww NOT MET Short term goal 3: Complete 7 steps with supv NOT ATTEMPTED Short term goal 4: Complete dynamic standing balance x 20 seconds supv NOT MET Patient Goals Patient goals : To get stronger Plan Plan Times per week: 3-5 Plan weeks: 2 Current Treatment Recommendations: Strengthening, Functional Mobility Training, IADL Training, Wheelchair Mobility Training, ROM, Transfer Training, Balance Training, Stair training, Endurance Training, Home Exercise Program Safety Devices Type of devices: (sitting at the edge of the bed at end of session. ) Restraints Initially in place: No Therapy Time Individual Concurrent Group Co-treatment Time In 1055 Time Out 1115 Minutes 20 Timed Code Treatment Minutes: 20 Minutes(GT) Jessica Ramey PT * Elida Zuluaga MD - 03/24/2019 6:43 AM EDT Hospitalist Progress Note 03/24/2019 6:43 AM Subjective: Admit Date: 03/20/2019 PCP: SATYA BOYCE DO Advance Directive: PriorInterval History: No new complaints. He is going home with daughter DIET GENERAL; No intake or output data in the 24 hours ending 03/24/19 0643 Medications: Fish-derived products; Ketorolac tromethamine; Nubain [nalbuphine hcl]; and Nubain [nalbuphine hcl] Current Facility-Administered Medications: HYDROmorphone (DILAUDID) injection 1 mg, 1 mg, Intravenous, Once, Juan Jose Arizmendi MD clopidogrel (PLAVIX) tablet 75 mg, 75 mg, Oral, Daily, Satya Boyce DO, 75 mg at 03/23/19 0835 nitroGLYCERIN (NITROSTAT) SL tablet 0.4 mg, 0.4 mg, Sublingual, Q5 Min PRN, Hernadez S Bonyo, DO aspirin chewable tablet 81 mg, 81 mg, Oral, Daily, Hernadez S Bonyo, DO, 81 mg at 03/23/19834 carvedilol (COREG) tablet 6.25 mg, 6.25 mg, Oral, BID, Hernadez S Bonyo, DO, 6.25 mg at 03/23/192055 furosemide (LASIX) tablet 20 mg, 20 mg, Oral, Daily, Hernadez S Bonyo, DO, 20 mg at 03/23/19834 citalopram (CELEXA) tablet 20 mg, 20 mg, Oral, Daily, Hernadez S Bonyo, DO, 20 mg at 03/23/19834 atorvastatin (LIPITOR) tablet 20 mg, 20 mg, Oral, Daily, Hernadez S Bonyo, DO, 20 mg at 03/23/192055 levothyroxine (SYNTHROID) tablet 25 mcg, 25 mcg, Oral, Daily, Hernadez S Bonyo, DO, 25 mcg at 03/23/19626 lisinopril (PRINIVIL;ZESTRIL) tablet 2.5 mg, 2.5 mg, Oral, Daily, Hernadez S Bonyo, DO, 2.5 mg at 03/23/19 0837 pantoprazole (PROTONIX) tablet 40 mg, 40 mg, Oral, QAM AC, Hernadez S Bonyo, DO, 40 mg at 03/23/19 06 oxyCODONE (ROXICODONE) immediate release tablet 5 mg, 5 mg, Oral, Q6H PRN, Hernadez S Bonyo, DO, 5 mgat 03/24/19 0040 acetaminophen (TYLENOL) tablet 650 mg, 650 mg, Oral, Q4H PRN, Hernadez S Bonyo, DO enoxaparin (LOVENOX) injection 40 mg, 40 mg, Subcutaneous, Daily, Hernadez S Bonyo, DO, 40 mg at 03/20/19 1356 methylphenidate (RITALIN) tablet 20 mg, 20 mg, Oral, BID WC, Hernadez S Bonyo, DO, 20 mg at 03/23/19 1601 QUEtiapine (SEROQUEL) tablet 100 mg, 100 mg, Oral, Nightly, Satya Vasquezo, DO, 100 mg at 03/23/192055 LABS: Recent Labs 03/22/19 0603 WBC 7.0 HGB 10.7* PLT 241 Recent Labs 03/22/19 0603 NA 139 K 3.9 CL 107 CO2 26 BUN 8 CREATININE 0.66 GLUCOSE 115* No results for input(s): INR in the last 72 hours. Invalid input(s): PT No results for input(s): TROPONINI in the last 72 hours. Objective: Vitals: Vitals: 03/22/19195703/23/19 0809 03/23/19182403/23/191920 BP: 134/70 (!) 147/67 (!) 152/76 124/81 Pulse: 82 68 77 80 Resp: Temp: 97 F (36.1 C) 96.8 F (36 C) 96.5 F (35.8 C) 97 F (36.1 C) TempSrc: Temporal Temporal Temporal Temporal SpO2: 96% 97% 95% 95% Weight: Height: General appearance: alert and cooperative with exam HEENT: PERRL, mucous membranes are moist, neck supple Lungs: Lungs are clear with good air exchange bilaterally Heart:: Regular rate and rhythm with no murmurs or gallops Abdomen: Soft, non-tender with no guarding or rebound, no palpable masses Extremities: Good ROM all 4 extremities, no edema, distal pulses intact Neurologic: No obvious focal neurologic deficits. Psychologic: Alert and Oriented to Person, Place, and Time Skin: No rashes Assessment: Active Problems: Back pain Resolved Problems: * No resolved hospital problems. * Plan: Discharge planning: home ELIDA ZULUAGA MD 03/24/2019 * Celine Johnston, OT - 03/23/2019 11:36 AM EDT Occupational Therapy Occupational Therapy Initial Assessment Date: 03/23/2019 Patient Name: Natalie Gerber : 1960 Date of Service: 03/23/2019 Discharge Recommendations: Subacute/Intermediate Facility Assessment Performance deficits / Impairments: Decreased functional mobility ;Decreased balance;Decreased ADL status;Decreased endurance;Decreased strength;Decreased posture Assessment: OT eval completed. Pt currently transfers with supv and requires min to moderate assistfor lower body ADLs. Pt with recent discharge home from SNF where he reports he was unable to care for himself and manage the stairs. Pt also admits to falls at home. Recommend SNF level of therapiesat discharge. Prognosis: Good Decision Making: Low Complexity REQUIRES OT FOLLOW UP: Yes Activity Tolerance Activity Tolerance: Patient limited by fatigue Safety Devices Safety Devices in place: Yes Type of devices: All fall risk precautions in place;Gait belt;Patient at risk for falls;Call light within reach(left sitting edge of bed) Restraints Initially in place: No Patient Diagnosis(es): The primary encounter diagnosis was Acute exacerbation of chronic low back pain. Diagnoses of Left leg pain, Left leg weakness, Frequent falls, Elevated erythrocyte sedimentation rate, and Elevated C-reactive protein (CRP) were also pertinent to this visit. has a past medical history of Anemia, Anemia, Arthritis, CAD (coronary artery disease), CAD (coronary artery disease), CHF (congestive heart failure) ([facility]), Depression, Diverticulitis, Diverticulosis, GERD (gastroesophageal reflux disease), History of pulmonary embolus (PE), Hyperlipidemia, Hypertension, OK, old, Myocardial infarct (HCC), myocardial infarction, LISA on CPAP, Pain, Pneumonia, Suicide (HCC), Thyroid disease, and Unspecified cerebral artery occlusion with cerebral infarction. has a past surgical history that includes hip surgery; back surgery; hernia repair; ECHO Compl W Dop Color Flow (02/04/2012); Cardiac catheterization; Cardiac catheterization (05/12/2013); orthopedic surgery; Knee arthroscopy; back surgery; hernia repair; Cholecystectomy; and joint replacement. Restrictions Restrictions/Precautions Restrictions/Precautions: Fall Risk(Pt reports multiple falls at home) Required Braces or Orthoses?: No Subjective General Chart Reviewed: Yes Patient assessed for rehabilitation services?: Yes Family / Caregiver Present: No Diagnosis: Pt admitted with acute on chronic back pain Subjective Subjective: Pt sitting edge of bed. Agreeable to OT. Reports he was recently discharged from SNF but was unable to manage the stairs in his home and was unable to care for himself. Patient Currently in Pain: Yes Pain Assessment Pain Level: 8 Pain Type: Chronic pain Pain Location: Back Pain Orientation: Lower Vital Signs Patient Currently in Pain: Yes Social/Functional History Social/Functional History Lives With: Alone Type of Home: House Home Layout: Two level, Bed/Bath upstairs Home Access: Stairs to enter with rails Entrance Stairs - Number of Steps: 7 Bathroom Shower/Tub: Tub/Shower unit, Shower chair with back Bathroom Toilet: Standard Bathroom Equipment: Shower chair Bathroom Accessibility: Accessible Home Equipment: Cane, Sock aid(Rollator) ADL Assistance: Independent Homemaking Assistance: Independent Homemaking Responsibilities: Yes Ambulation Assistance: Independent Transfer Assistance: Independent Active Solder Cream Maker: No Mode of Transportation: Bus Occupation: Unemployed Additional Comments: Pt notes resides in apartment, 11 steps to access bedroom and bathroom, 7 steps to enter apartment. Pt notes he keeps rollator on first level and cane on second level- notes two falls recently with cane on second level. Notes LLE give out Objective Vision: Within Functional Limits Hearing: Within functional limits Orientation Overall Orientation Status: Within Normal Limits Observation/Palpation Posture: Fair Observation: Flexed forward posture Balance Sitting Balance: Modified independent Standing Balance: Supervision Functional Mobility Functional - Mobility Device: Rolling Walker Activity: To/from bathroom Assist Level: Supervision Functional Mobility Comments: Pt ambulating with bilateral elbows on rollator arms, flexed forward posture, wide base of support, Toilet Transfers Equipment Used: Standard toilet Toilet Transfer: Supervision ADL LE Dressing: Moderate assistance(to don socks) Toileting: Supervision Tone RUE RUE Tone: Normotonic Tone LUE LUE Tone: Normotonic Coordination Movements Are Fluid And Coordinated: Yes Transfers Sit to stand: Supervision Stand to sit: Supervision Cognition Overall Cognitive Status: WNL Sensation Overall Sensation Status: Impaired(Pt reports numbness L hand secondary to previous stroke) LUE AROM (degrees) LUE AROM : WFL RUE AROM (degrees) RUE AROM : WFL LUE Strength LUE Strength Comment: grossly 4-/5 RUE Strength RUE Strength Comment: grossly 4-/5 Plan Plan Times per week: 3-5 times per week Plan weeks: 2 weeks Current Treatment Recommendations: Strengthening, Endurance Training, Patient/Caregiver Education & Training, Self-Care / ADL, Equipment Evaluation, Education, & procurement, Balance Training, Functional Mobility Training, Safety Education & Training [facility] Score [facility] Inpatient Daily Activity Raw Score: 21 (03/23/19 112) AM-[facility] Inpatient ADL T-Scale Score : 44.27 (03/23/19 112) ADL Inpatient CMS 0-100% Score: 32.79 (03/23/191127) ADL Inpatient [facility] G-Code Modifier : CJ (03/23/191127) Goals Short term goals Time Frame for Short term goals: 2 weeks Short term goal 1: Toilet transfer modified indep level Short term goal 2: Lower body ADLs at modified indep level Short term goal 3: Dynamic standing balance X 2-3 mins during functional task at modified indep level Patient Goals Patient goals : pt wants to return to SNF Therapy Time Individual Concurrent Group Co-treatment Time In 1104 Time Out 1119 Minutes 15 Patient's Occupational Therapy Plan of Care supervision is transferred to [facility] Occupational Therapist. Goals and/or treatment plan was established in collaboration with patient/family/other representatives. Celine Johnston OTR/L * Chau Trejo, PIA - 03/23/2019 6:28 AM EDT Pt. Refused blood draw this morning and claimed it was just going to show the same things it alwaysdone. Dr. Boyce notified. Will continue to monitor. * Rey Mathur MD - 2019 7:21 PM EDT Patient apparently refused cervical MRI, which is not needed during this admission and is not urgent. Can be obtained out patient if needed. Patient also stated he does not want any surgery, which isreasonable. Lumbar MRI shows multi-level stenosis in setting of previous surgical decompression. No infection. Patient is working with PT. During our encounter, patient was already improving with pain mgmt and conservative care. A/P: Acute on chronic LBP and radiculopathy in setting of lumbar stenosis: - out patient follow up - PT - pain control - ortho signing off Call or reconsult if needed. Rey Mathur PGY4 * Laura Curry DTR - 2019 10:00 AM EDT Nutrition rescreen completed. Chart reviewed. Patient to be monitored and followed by the diet physical therapy technician. * Juan Jose Arizmendi MD - 2019 9:00 AM EDT At bedside to discuss MRI plans. Patient states that he will cooperate and lie flat for MRI if he receives 1mg dilaudid about 15 min before scan. Currently is on the MRI schedule to be completed today. Will proceed with plans for MRI and re-evaluate plan based on results. Juan Jose Arizmendi MD PGY-1 Orthopaedic Surgery [id number] 2019 .9:02 AM * Satya Boyce DO - 2019 7:10 AM EDT Hospitalist Progress Note Subjective: Admit Date: PCP: SATYA BOYCE DO Advance Directive: No Order Interval History: Chart reviewed and discussed with staff No new acute issues over.sleeping easily aroused. Pain remains the patient's main issues.remains high fall risk DIET GENERAL: reg Intake/Output Summary (Last 24 hours) No intake or output data in the 24 hours ending 03/22/19 0711 Medications: Current Facility-Administered Medications Medication Dose Route Frequency Provider Last Rate Last Dose nitroGLYCERIN (NITROSTAT) SL tablet 0.4 mg 0.4 mg Sublingual Q5 Min PRN Satya Boyce, DO aspirin chewable tablet 81 mg 81 mg Oral Daily Hernadez S Pedroo, DO 81 mg at 03/21/19 09 clopidogrel (PLAVIX) tablet 75 mg 75 mg Oral BID Hernadez S Pedroo, DO 75 mg at 03/21/191955 carvedilol (COREG) tablet 6.25 mg 6.25 mg Oral BID Hernadez S Bonyo, DO 6.25 mg at 03/21/191954 furosemide (LASIX) tablet 20 mg 20 mg Oral Daily Hernadez S Bonyo, DO 20 mg at 03/21/19906 citalopram (CELEXA) tablet 20 mg 20 mg Oral Daily Hernadez S Bonyo, DO 20 mg at 10/20/19 0907 atorvastatin (LIPITOR) tablet 20 mg 20 mg Oral Daily Satya Francisco Bonyo, DO 20 mg at 03/21/191954 levothyroxine (SYNTHROID) tablet 25 mcg 25 mcg Oral Daily Hernadez S Bonyo, DO 25 mcg at 03/22/19 0555 lisinopril (PRINIVIL;ZESTRIL) tablet 2.5 mg 2.5 mg Oral Daily Satya rFancisco Bonyo, DO 2.5 mg at 907 pantoprazole (PROTONIX) tablet 40 mg 40 mg Oral QAM AC Satya Francisco Bonyo, DO 40 mg at 03/22/19 0555 oxyCODONE (ROXICODONE) immediate release tablet 5 mg 5 mg Oral Q6H PRN Satya Vasquezo, DO 5 mg at 03/22/19 0636 acetaminophen (TYLENOL) tablet 650 mg 650 mg Oral Q4H PRN Satya Francisco Bonyo, DO enoxaparin (LOVENOX) injection 40 mg 40 mg Subcutaneous Daily Satya Vasquezo, DO 40 mg at 03/20/19 1356 methylphenidate (RITALIN) tablet 20 mg 20 mg Oral BID WC Satya Francisco Bonyo, DO 20 mg at 03/21/19 1707 QUEtiapine (SEROQUEL) tablet 100 mg 100 mg Oral Nightly Satya Francisco Bonyo, DO 100 mg at 03/21/191955 LABS: CBC with Differential: Lab Results Component Value Date WBC 7.0 2019 WBC 8.8 05/16/2018 RBC 3.81 2019 HGB 10.7 2019 HCT 32.7 2019 PLT 241 2019 MCV 85.9 2019 MCH 28.0 2019 MCHC 32.6 2019 RDW 15.2 2019 NRBC 6 01/06/2013 SEGSPCT 76.7% 09/18/2015 BANDSPCT 1 01/06/2013 METASPCT 3 01/06/2013 LYMPHOPCT 25.8 2019 MONOPCT 5.1 2019 MONOPCT 4.7 05/16/2018 BASOPCT 0.8 2019 BASOPCT 0.5 05/16/2018 MONOSABS 0.4 2019 MONOSABS 0.41 05/16/2018 LYMPHSABS 1.8 2019 LYMPHSABS 1.68 05/16/2018 EOSABS 0.1 2019 EOSABS 0.13 05/16/2018 BASOSABS 0.1 2019 BASOSABS 0.04 05/16/2018 DIFFTYPE NOT REPORTED 11/30/2013 CMP: Lab Results Component Value Date NA 139 03/21/2019 K 4.0 03/21/2019 CL 105 03/21/2019 CO2 25 03/21/2019 BUN 14 03/21/2019 CREATININE 0.71 03/21/2019 GFRAA >60 05/17/2018 AGRATIO 0.8 09/18/2015 LABGLOM >60 05/17/2018 GLUCOSE 102 03/21/2019 PROT 7.1 03/21/2019 LABALBU 3.7 03/21/2019 LABALBU 3.9 05/15/2018 CALCIUM 8.9 03/21/2019 BILITOT 0.4 03/21/2019 ALKPHOS 158 03/21/2019 AST 20 03/21/2019 ALT 17 03/21/2019 Objective: Vitals: Vitals: 03/21/192006 BP: 100/68 Pulse: 80 Resp: 18 Temp: 97.1 F (36.2 C) SpO2: 96% General appearance: alert and cooperative with exam HEENT: PERRL, mucous membranes are moist, neck supple Lungs: Lungs have adv sounds Heart:: Regular rate and rhythm with no murmurs or gallops Abdomen: Soft, non-tender with no guarding or rebound, no palpable masses Extremities: exam limited sec to pain, no edema, distal pulses intact Neurologic: No obvious focal neurologic deficits. Psychologic: Alert and Oriented to Person, Place, and Time Skin: No rashes Assessment: Active Problems: Patient Active Problem List Diagnosis GERD (gastroesophageal reflux disease) Hypertension Osteoarthritis Acute left-sided weakness Hypothyroidism Dyslipidemia Morbid obesity (HCC) Mood disorder (HCC) Chronic back pain Chest pain HTN (hypertension) HLD (hyperlipidemia) Obesity Tobacco abuse MDD (major depressive disorder) Meralgia paresthetica of left side Stroke-like symptoms Anemia Leukocytosis History of stroke AVN (avascular necrosis of bone) (HCC) Back pain Plan: We appreciate ortho inputs Awaiting MRI PT OT Pain control Continue current RX Pending ortho/PT/OT RECOMMENDATIONS Discharge planning: SATYA BOYCE DO * CaseLisa, PT - 03/21/2019 2:32 PM EDT Physical Therapy Facility/Department: [facility] Initial Assessment NAME: Natalie Gerber : 1960 Date of Service: 03/21/2019 Discharge Recommendations: Continue to assess pending progress, IP Rehab PT Equipment Recommendations Equipment Needed: Yes Other: Pt has rollator Assessment Body structures, Functions, Activity limitations: Decreased functional mobility ;Decreased strength;Decreased endurance;Decreased safe awareness;Decreased balance Assessment: Pt tolerated PT eval fair due to pain and weakness. Pt notes back pain and LLE weakness. Pt comleted functional mobility with CGA, use of rollator and demonstrating decrease safety awareness resulting in high fall risk. Implement acute care PT, recommend IP REHAB upon discharge- pt unsafe to return home with multiple falls and unable to access second level with bedroom and bathroom Prognosis: Good Decision Making: Low Complexity PT Education: PT Role;Plan of Care;Energy Conservation REQUIRES PT FOLLOW UP: Yes Activity Tolerance Activity Tolerance: Patient limited by pain;Patient limited by fatigue;Patient limited by endurance Patient Diagnosis(es): The primary encounter diagnosis was Acute exacerbation of chronic low back pain. Diagnoses of Left leg pain, Left leg weakness, Frequent falls, Elevated erythrocyte sedimentation rate, and Elevated C-reactive protein (CRP) were also pertinent to this visit. has a past medical history of Anemia, Anemia, Arthritis, CAD (coronary artery disease), CAD (coronary artery disease), CHF (congestive heart failure) ([facility]), Depression, Diverticulitis, Diverticulosis, GERD (gastroesophageal reflux disease), History of pulmonary embolus (PE), Hyperlipidemia, Hypertension, OK, old, Myocardial infarct (HCC), myocardial infarction, LISA on CPAP, Pain, Pneumonia, Suicide ([facility]), Thyroid disease, and Unspecified cerebral artery occlusion with cerebral infarction. has a past surgical history that includes hip surgery; back surgery; hernia repair; ECHO Compl W Dop Color Flow (02/04/2012); Cardiac catheterization; Cardiac catheterization (05/12/2013); orthopedic surgery; Knee arthroscopy; back surgery; hernia repair; Cholecystectomy; and joint replacement. Restrictions Restrictions/Precautions Restrictions/Precautions: Fall Risk Required Braces or Orthoses?: No Vision/Hearing Vision: Within Functional Limits Hearing: Within functional limits Subjective General Chart Reviewed: Yes Patient assessed for rehabilitation services?: Yes Response To Previous Treatment: Patient with no complaints from previous session. Family / Caregiver Present: No Diagnosis: Back pain, weakness, 2 falls recently at home Follows Commands: Within Functional Limits Other (Comment): Pt rollator present in room General Comment Comments: Pleasant affect Subjective Subjective: Pt sitting on EOB, awake, alert, and agreeable to PT eval at this time. Pt pleasant affect. Pain Screening Patient Currently in Pain: Yes Pain Assessment Pain Assessment: 0-10 Pain Level: 5 Orientation Orientation Overall Orientation Status: Within Normal Limits Social/Functional History Social/Functional History Lives With: Alone Additional Comments: Pt notes resides in apartment, 11 steps to access bedroom and bathroom, 7 steps to enter apartment. Pt notes he keeps rollator on first level and cane on second level- notes two falls recently with cane on second level. Notes LLE give out Objective Observation/Palpation Posture: Fair Observation: Flexed forward posture, AROM RLE (degrees) RLE General AROM: Limited due to pain in back AROM LLE (degrees) LLE General AROM: Limited due to pain in back Tone RLE RLE Tone: Normotonic Tone LLE LLE Tone: Normotonic Sensation Overall Sensation Status: Impaired Bed mobility Rolling to Right: Supervision Supine to Sit: Supervision Sit to Supine: Supervision Comment: Use of momentum Transfers Sit to Stand: Contact guard assistance Stand to sit: Contact guard assistance Comment: Use of momentum Ambulation Ambulation?: Yes More Ambulation?: No Ambulation 1 Surface: level tile Device: Rollator Assistance: Contact guard assistance Quality of Gait: Fair - Distance: 20 feet x 2 Comments: Pt ambulating with bilat elbows on rollator arms, flexed forward posture, wide base of support, reciprocal gait pattern, unsteady, increase lateral translation, pt notes LLE weakness and giving out upon completion Stairs/Curb Stairs?: No Balance Posture: Good Sitting - Static: Good Sitting - Dynamic: Good Standing - Static: Fair Standing - Dynamic: Fair Exercises Comments: Pt educated on benefits of mobility Plan Plan Times per week: 3-5 Plan weeks: 2 Current Treatment Recommendations: Strengthening, Functional Mobility Training, IADL Training, Wheelchair Mobility Training, ROM, Transfer Training, Balance Training, Stair training, Endurance Training, Home Exercise Program Safety Devices Type of devices: Left in bed, Call light within reach Restraints Initially in place: No Goals Short term goals Time Frame for Short term goals: 2 weeks Short term goal 1: Complete transfers mod indep Short term goal 2: Complete 100 feet supv ww Short term goal 3: Complete 7 steps with supv Short term goal 4: Complete dynamic standing balance x 20 seconds supv Patient Goals Patient goals : To get stronger Therapy Time Individual Concurrent Group Co-treatment Time In 1403 Time Out 1423 Minutes 20 Patient s Physical Therapy Plan of Care supervision is transferred to [facility] Re[facility] Department Physical Therapist. Plan to be activated only if patient is admitted or for assessing discharge needs. Lisa Arias PT * Satya Boyce DO - 03/21/2019 12:46 PM EDT Hospitalist Progress Note Subjective: Admit Date: PCP: SATYA BOYCE DO Advance Directive: No Order Interval History: Chart reviewed and discussed with staff No new acute issues over. Pain remains the patient's main issues.remains high fall risk DIET GENERAL: Regular diet Intake/Output Summary (Last 24 hours) No intake or output data in the 24 hours ending 03/21/19 1249 Medications: Current Facility-Administered Medications Medication Dose Route Frequency Provider Last Rate Last Dose nitroGLYCERIN (NITROSTAT) SL tablet 0.4 mg 0.4 mg Sublingual Q5 Min PRN Satya Boyce DO aspirin chewable tablet 81 mg 81 mg Oral Daily Satya Boyce, DO 81 mg at 03/21/19 0906 clopidogrel (PLAVIX) tablet 75 mg 75 mg Oral BID Satya Boyce, DO 75 mg at 03/21/19 0907 carvedilol (COREG) tablet 6.25 mg 6.25 mg Oral BID Hernadez Maryam Boyce, DO 6.25 mg at 03/21/19 0907 furosemide (LASIX) tablet 20 mg 20 mg Oral Daily Satya Boyce, DO 20 mg at 03/21/19 0907 citalopram (CELEXA) tablet 20 mg 20 mg Oral Daily Hernadez S Bonyo, DO 20 mg at 03/21/19 0907 atorvastatin (LIPITOR) tablet 20 mg 20 mg Oral Daily Hernadez S Bonyo, DO 20 mg at 03/20/192005 levothyroxine (SYNTHROID) tablet 25 mcg 25 mcg Oral Daily Hernadez S Bonyo, DO 25 mcg at 03/21/19 0538 lisinopril (PRINIVIL;ZESTRIL) tablet 2.5 mg 2.5 mg Oral Daily Hernadez S Bonyo, DO 2.5 mg at 907 pantoprazole (PROTONIX) tablet 40 mg 40 mg Oral QAM AC Hernadez S Bonyo, DO 40 mg at 03/21/19 0538 oxyCODONE (ROXICODONE) immediate release tablet 5 mg 5 mg Oral Q6H PRN Hernadez S Bonyo, DO 5 mg at 03/21/19 1135 acetaminophen (TYLENOL) tablet 650 mg 650 mg Oral Q4H PRN Hernadez S Bonyo, DO enoxaparin (LOVENOX) injection 40 mg 40 mg Subcutaneous Daily Hernadez S Bonyo, DO 40 mg at 03/20/19 1356 methylphenidate (RITALIN) tablet 20 mg 20 mg Oral BID WC Hernadez S Bonyo, DO 20 mg at 03/21/19 0906 QUEtiapine (SEROQUEL) tablet 100 mg 100 mg Oral Nightly Hernadez S Bonyo, DO 100 mg at 03/20/19 6547 LABS: CBC with Differential: Lab Results Component Value Date WBC 8.8 03/21/2019 WBC 8.8 05/16/2018 RBC 3.93 03/21/2019 HGB 11.0 03/21/2019 HCT 33.5 03/21/2019 PLT 250 03/21/2019 MCV 85.2 03/21/2019 MCH 28.0 03/21/2019 MCHC 32.9 03/21/2019 RDW 15.1 03/21/2019 NRBC 6 01/06/2013 SEGSPCT 76.7% 09/18/2015 BANDSPCT 1 01/06/2013 METASPCT 3 01/06/2013 LYMPHOPCT 20.7 03/21/2019 MONOPCT 5.9 03/21/2019 MONOPCT 4.7 05/16/2018 BASOPCT 0.9 03/21/2019 BASOPCT 0.5 05/16/2018 MONOSABS 0.5 03/21/2019 MONOSABS 0.41 05/16/2018 LYMPHSABS 1.8 03/21/2019 LYMPHSABS 1.68 05/16/2018 EOSABS 0.2 03/21/2019 EOSABS 0.13 05/16/2018 BASOSABS 0.1 03/21/2019 BASOSABS 0.04 05/16/2018 DIFFTYPE NOT REPORTED 11/30/2013 CMP: Lab Results Component Value Date NA 139 03/21/2019 K 4.0 03/21/2019 CL 105 03/21/2019 CO2 25 03/21/2019 BUN 14 03/21/2019 CREATININE 0.71 03/21/2019 GFRAA >60 05/17/2018 AGRATIO 0.8 09/18/2015 LABGLOM >60 05/17/2018 GLUCOSE 102 03/21/2019 PROT 7.1 03/21/2019 LABALBU 3.7 03/21/2019 LABALBU 3.9 05/15/2018 CALCIUM 8.9 03/21/2019 BILITOT 0.4 03/21/2019 ALKPHOS 158 03/21/2019 AST 20 03/21/2019 ALT 17 03/21/2019 Objective: Vitals: Vitals: 03/21/19 0808 BP: (!) 123/55 Pulse: 85 Resp: 20 Temp: 97.1 F (36.2 C) SpO2: 100% General appearance: alert and cooperative with exam HEENT: PERRL, mucous membranes are moist, neck supple Lungs: Lungs have adv sounds Heart:: Regular rate and rhythm with no murmurs or gallops Abdomen: Soft, non-tender with no guarding or rebound, no palpable masses Extremities:limited secondary to pain no edema, distal pulses intact Neurologic: No obvious focal neurologic deficits. Psychologic: Alert and Oriented to Person, Place, and Time Skin: No rashes Assessment: Active Problems: Patient Active Problem List Diagnosis GERD (gastroesophageal reflux disease) Hypertension Osteoarthritis Acute left-sided weakness Hypothyroidism Dyslipidemia Morbid obesity (HCC) Mood disorder (HCC) Chronic back pain Chest pain HTN (hypertension) HLD (hyperlipidemia) Obesity Tobacco abuse MDD (major depressive disorder) Meralgia paresthetica of left side Stroke-like symptoms Anemia Leukocytosis History of stroke AVN (avascular necrosis of bone) (HCC) Back pain Plan: Continue current RX We appreciate although inputs Awaiting MRI PT OT Pain control Discharge planning: pending SATYA BOYCE DO documented in this encounter Health Concerns Infection Onset Date Last Indicated Resolved Time COVID-19 Rule-Out 12/29/2021 12/29/2021 12/29/2021 10:38 AM EDT Chief Complaint and Reason for Visit Chief Complaint LABWORK Chief Complaint PENITENTIARY LAB WOR K Chief Complaint Admit Date PENITENTIARY LAB WORK July 07, 2024 5:00am PENITENTIARY LAB WORK July 14 4:00am PENITENTIARY LAB WORK August 27, 2024 5 :00am Chief Complaint Admit Date PENITENTIARY LAB WORK July 07, 2024 5:00am PENITENTIARY LAB WORK July 14 4:00am PENITENTIARY LAB WORK August 27, 2024 5 :00am PENITENTIARY LAB WORK October 04, 2024 4:00 am Additional Source Comments (unrecognized sect ion and content) No Status Records FoundNo Status Records FoundNo Status Records FoundNo Status Records FoundNo Status Records FoundNo Status Records FoundNo Status Records FoundNo Status Records FoundNo Status Records FoundNo Status Records FoundNo Status Records FoundNo Status Records FoundNo Status Records FoundNo Status Records FoundNo Status Records FoundNo Status Records FoundNo Status Records FoundNo Status Records Found INFORMATION SOURCE (unrecogn ized section and content) DATE CREATED AUTHOR 04/02/2018 [facility] DATE CREATED AUTHOR AUTHOR'S ORGANIZ ATION 05/24/2018 [facility] DATE CREATED AUTHOR AUTHOR'S ORGANIZ ATION 06/11/2018 [facility] DATE CREATED AUTHOR AUTHOR'S ORGANIZ ATION 06/12/2018 [facility] [employer] [facility] DATE CREATED AUTHOR AUTHOR'S ORGANIZ ATION 12/25/2018 [facility] DATE CREATED AUTHOR AUTHOR'S ORGANIZ ATION 03/31/2019 [facility] DATE CREATED AUTHOR AUTHOR'S ORGANIZ ATION 05/07/2019 [facility] DATE CREATED AUTHOR AUTHOR'S ORGANIZ ATION 05/11/2019 [facility] DATE CREATED AUTHOR AUTHOR'S ORGANIZ ATION 08/14/2019 [facility] DATE CREATED AUTHOR AUTHOR'S ORGANIZ ATION 10/18/2019 [facility] DATE CREATED AUTHOR AUTHOR'S ORGANIZ ATION 12/24/2019 [facility] DATE CREATED AUTHOR AUTHOR'S ORGANIZ ATION 01/28/2020 [facility] DATE CREATED AUTHOR AUTHOR'S ORGANIZ ATION 03/18/2020 [facility] DATE CREATED AUTHOR AUTHOR'S ORGANIZ ATION 06/25/2020 [facility] DATE CREATED AUTHOR AUTHOR'S ORGANIZ ATION 01/21/2023 [facility] DATE CREATED AUTHOR AUTHOR'S ORGANIZ ATION 01/06/2024 [facility] DATE CREATED AUTHOR AUTHOR'S ORGANIZ ATION 05/22/2024 [facility] DATE CREATED AUTHOR AUTHOR'S ORGANIZ ATION 11/15/2024 [facility] Reason for Visit (unrecogniz ed section and content) Reason Comments Shortness of Breath patient complains of having SOB while at [facility] today. patinet states that he is normally SOB on exertion but today it was worse. patient took nitro at [facility] but it did not work. patient has hx of CHF and HTN. Reason Comments Back Pain Leg Pain Reason Comments Chest Pain L sided pressure sta rting this afternoon, hx OK. denies SOB/ took three nitro at home which helped briefly but pain is back. Reason Comments Chest Pain pt s/o heavy midster nal CP since yesterday. seen at [facility]. pain was worse today so he came here. pt took 3 nitro at home with relief after #3 with pain from 8 to 6. 324 ASA and 1 additional nitro given en route Reason Comments Chest Pain Patient states mid-s ternal chest pain and left arm pain started around 1 hour ago, patient had taken 3 of his own nitro, patient given 324 baby aspirin in route by squad. Reason Comments Back Pain chronic back pain, h ome pain meds not working. states 12/10 pain Reason Comments Back Pain Pt presents to ED vi a EMS C/O pain d/t sciatica. Pt was at [employer] and fell in the parking lot, pt did strike his head and has small abrasion noted to the top of his head. Denies LOC. Pt takes plavix and ASA. Pt states that he was released from an [facility]CF yesterday where he was using a wheelchair and was DC'ed with walker. Pt states that he wants to return to ECF and does not feel he was ready for DC. Fall Reason Comments Radiology [place] Reason Comments Missed appt letter returned Reason Comments Appointment Schedule appointment for Lt shoulder referral Reason Comments Appointment 08/23 appointment rem evy Reason Comments Appointment 11/22 appointment rem evy Reason Comments Appointment No Show on 11/22 Reason Comments Established Patient Follow Up Pain Reason Comments Appointment Reason Onset Date Comments Referral 05/03/2024 Source Comments (unrecognize d section and content) In the event this informatio n is protected by the Federal Confidentiality of Alcohol and Drug Abuse Patient Records regulations: The Federal rules restrict any use of the information to criminally investigate or prosecute any alcohol or drug abuse patient.[facility] the event this information is protected by the Federal Confidentiality of Alcohol and Drug Abuse Patient Records regulations: The Federal rules restrict any use of the information to criminally investigate or prosecute any alcohol or drug abuse patient.[facility] the event this information is protected by the Federal Confidentiality of Alcohol and Drug Abuse Patient Records regulations: The Federal rules restrict any use of the information to criminally investigate or prosecute any alcohol or drug abuse patient.[facility] the event this information is protected by the Federal Confidentiality of Alcohol and Drug Abuse Patient Records regulations: The Federal rules restrict any use of the information to criminally investigate or prosecute any alcohol or drug abuse patient.[facility] the event this information is protected by the Federal Confidentiality of Alcohol and Drug Abuse Patient Records regulations: The Federal rules restrict any use of the information to criminally investigate or prosecute any alcohol or drug abuse patient.[facility] the event this information is protected by the Federal Confidentiality of Alcohol and Drug Abuse Patient Records regulations: The Federal rules restrict any use of the information to criminally investigate or prosecute any alcohol or drug abuse patient.[facility] the event this information is protected by the Federal Confidentiality of Alcohol and Drug Abuse Patient Records regulations: The Federal rules restrict any use of the information to criminally investigate or prosecute any alcohol or drug abuse patient.[facility] the event this information is protected by the Federal Confidentiality of Alcohol and Drug Abuse Patient Records regulations: The Federal rules restrict any use of the information to criminally investigate or prosecute any alcohol or drug abuse patient.[facility] the event this information is protected by the Federal Confidentiality of Alcohol and Drug Abuse Patient Records regulations: The Federal rules restrict any use of the information to criminally investigate or prosecute any alcohol or drug abuse patient.[facility] the event this information is protected by the Federal Confidentiality of Alcohol and Drug Abuse Patient Records regulations: The Federal rules restrict any use of the information to criminally investigate or prosecute any alcohol or drug abuse patient.[facility] the event this information is protected by the Federal Confidentiality of Alcohol and Drug Abuse Patient Records regulations: The Federal rules restrict any use of the information to criminally investigate or prosecute any alcohol or drug abuse patient.[facility] Care Teams (unrecognized sec tion and content) Team Status: Active Member Role Status Dates Dr. Satya Boyce DO Primary Care Provider Active Team Status: Active Member Role Status Dates Dr. Satya Boyce DO Primary Care Provider Active Start: July 07, 2024 Chuy العلي Attending Provider Active Star t: July 07, 2024 Team Status: Active Member Role Status Dates Dr. Satya Boyce DO Primary Care Provider Active Start: July 14, 2024 Chuy العلي Attending Provider Active Star t: July 14, 2024 Chuy العلي Referring Provider Active Star t: July 14, 2024 Team Status: Inactive Member Role Status Dates Dr. Satya Boyce DO Primary Care Provider Active Start: August 27, 2024 End: August 27, 2024 Chuy العلي Attending Provider Active Star t: August 27, 2024 End: August 27, 2024 Curriculum Coordinator Relationship Specialty Start Date End Date Satya Boyce DO [address] [place] [address] PCP - General Family Practice 04/22/18 Curriculum Coordinator Relationship Specialty Start Date End Date Satya Boyce DO [address] [place] [id number] PCP - General Family Medicine 04/22/18 Curriculum Coordinator Relationship Specialty Start Date End Date Satya Boyce DO [address] [place] [id number] PCP - General Family Medicine 04/22/18 Curriculum Coordinator Relationship Specialty Start Date End Date Satya Boyce DO [address] [place] [address] PCP - General Family Medicine 04/22/18 Curriculum Coordinator Relationship Specialty Start Date End Date Satya Boyce DO [address] [place] [address] PCP - General Family Medicine 04/22/18 Curriculum Coordinator Relationship Specialty Start Date End Date Satya Boyce DO [address] [place] [address] PCP - General Family Medicine 04/22/18 Team Status: Inactive Member Role Status Dates Dr. Satya Boyce DO Primary Care Provider Active Chuy العلي Attending Provider Active Curriculum Coordinator Relationship Specialty Start Date End Date Satya Boyce DO [address] [facility] [address] [place] [address] PCP - General Family Medicine 04/22/18 Curriculum Coordinator Relationship Specialty Start Date End Date Satya Boyce DO [address] [place] [address] PCP - General 04/18/18 Team Status: Inactive Member Role Status Dates Dr. Satya Boyce DO Primary Care Provider Active Start: October 04, 2024 End: October 04, 2024 Chuy العلي Attending Provider Active Star t: October 04, 2024 End: October 04, 2024 Chuy العلي Referring Provider Active Star t: October 04, 2024 End: October 04, 2024 Team Status: Active Member Role Status Dates Dr. Satya Boyce DO Primary Care Provider Active Start: November 01, 2024 Chuy العلي Attending Provider Active Star t: November 01, 2024 Goals (unrecognized section and content) Goals may be documented in a n alternate sectionGoals may be documented in an alternate sectionGoals may be documented in an alternate sectionGoals may be documented in an alternate section FOR RECORDS PERTAINING TO PATIENTS WHO ARE OR HAVE BEEN ENROLLED IN A CHEMICAL DEPENDENCY/SUBSTANCEABUSE PROGRAM, SOME INFORMATION MAY BE OMITTED. This clinical summary was aggregated from multiple sources. Caution should be exercised in using it in the provision of clinical care. This summary normalizes information from multiple sources, and as a consequence, information in this document may materially change the coding, format and clinical context of patient data. In addition, data may be omitted in some cases. CLINICAL DECISIONS SHOULD BE BASED ON THE PRIMARY CLINICAL RECORDS. [facility]. provides no warranty or guarantee of the accuracy or completeness of information in this document.
[2024-12-06 09:45] LABS: Vitamin D,25 Hydroxy 20.6 ng/mL (30-100)
== END ==
LOC: OLS.ACW100 04:00
PROVIDERS: PCP Family Medicine; Referring Provider Family Medicine; Visit Provider Family Medicine
DX: E11.9 Type 2 diabetes mellitus without complications (principal); E78.00 Pure hypercholesterolemia, unspecified; R27.9 Unspecified lack of coordination; I67.2 Cerebral atherosclerosis; E03.9 Hypothyroidism, unspecified; E66.01 Morbid (severe) obesity due to excess calories
CPT/HCPCS: 36415; 82306

== ENCOUNTER → 2025-01-04 05:00 | Outpatient (REF) | payer MEDICAID, SELFPAY ==
--- OUTSIDE RECORDS SUMMARY | 2025-01-04 04:29 | XMS RPT_ITS | CCD ---
Author Organization [facility] Care Team Providers Care Turntable Man Name Role Phone Stecyk, Orest Unavailable Unavailable Stecyk, Orest Unavailable Unavailable Medina, Neelesh Unavailable Unavailable Do Hernandez Unavailable Unavailable Madhun, Zuhayr Unavailable Unavailable Ramirez Trotter Unavailable Unavailable BONYO, HERNADEZ S Unavailable Unavailable ODEBODE, MOJIBADE Unavailable Unavailable ODEBODE, MOJIBADE Unavailable Unavailable TOPARLI, CHARMAINE Unavailable Unavailable BOZORGI, ELENA Unavailable Unavailable HICKEY, RAFY O Unavailable Unavailable SUJEY, KHALEEL Unavailable Unavailable SUJEY, KHALEEL Unavailable Unavailable FLORENCIO HERNANDEZ Unavailable Unavailable GODALE, LISA Unavailable Unavailable BONYO, HERNADEZ S Unavailable Unavailable Bonyo, Hernadez S Primary Care Provider [phone] BONYO, HERNADEZ S Primary Care Unavailable ESTRELLA HERNANDEZ Admitting Unavailable ESTRELLA HERNANDEZ Attending Unavailable Bonyo, Hernadez S Primary Care Provider KAR STRICKLAND Attending Unavailable PROVIDER, UNKNOWN Admitting Unavailable ALBERTO MARQUIS Primary Care Unavailable Carli DOSatya Primary Care Provider [phone] Satya Boyce DO Primary Care Provider Bonyo, Hernadez S Unavailable Bonyo DO, Hernadez Toribio Primary Care Provider Bonyo DO, Hernadez Toribio Primary Care Provider BONYO, HERNADEZ TORIBIO Primary Care Unavailable BONYO, HERNADEZ TORIBIO Primary Care Unavailable Bonyo DO, Hernadez Toribio Primary Care Provider Bonyo DO, Hernadez S Primary Care Provider Bonyo DO, Dr. Hernadez Primary Care Provider Chuy Mariee Attending Provider Unavailabl e Chuy Mariee Referring Provider Unavailabl e Chuy Mariee Attending Unavailable Bonyo, Hernadez Primary Care Unavailable Bonyo, Hernadez Primary Care Unavailable Chuy Mariee Referring Unavailable Chuy Mariee Attending Unavailable Bonyo, Hernadez Primary Care Unavailable Chuy Mariee Attending Unavailable Chuy Mariee Referring Unavailable Bonyo, Hernadez Primary Care Unavailable Chuy Mariee Attending Unavailable Bonyo, Hernadez Primary Care Unavailable Chuy Mariee Attending Unavailable Chuy Mariee Attending Unavailable Chuy Mariee Referring Unavailable Bonyo, Hernadez Primary Care Unavailable Bonyo, Hernadez Primary Care Unavailable Chuy Mariee Attending Unavailable Bonyo, Hernadez Primary Care Unavailable Chuy Mariee Attending Unavailable Bonyo, Hernadez Primary Care Unavailable Chuy Mariee Attending Unavailable Chuy Mariee Referring Unavailable Allergies Allergy Classification Reported Allergen(s) Allergy Type Date of Onset Reaction(s) Facility (2 sources) ketorolac Drug Allergy 7 [facility] Repository (1 source) nalbuphine Drug Allergy 7 [facility] Repository (3 sources) nalbuphine; Translations: [NALBUPHINE] Drug Allergy 6 [facility] Repository (13 sources) Fish derivative; Translations: [FISH DERIVED] Propensity to adverse reactions to drug (disorder) 7 [facility] Repository (20 sources) Ketorolac; Translations: [KETOROLAC TROMETHAMINE] Drug Allergy 0 Hives [facility] Repository (20 sources) Nalbuphine; Translations: [NALBUPHINE HCL] Drug Allergy 6 Other: See Comments [facility] Repository (8 sources) Fish-Derived Products; Translations: [FISH-DERIVED PRODUCTS] Propensity to adverse reactions to drug 6 [place] (1 source) Ketorolac Drug Allergy [facility] [place] Repository (1 source) Nalbuphine Drug Allergy [facility] Repository (4 sources) Ketorolac Drug Allergy 0 Unknown [facility] (4 sources) Nalbuphine Drug Allergy 0 Unknown [facility] Medications Current Medications Medication Drug Class(es) Dates [...] in 24 hours. [facility] 2 [facility] six hours as needed acetaminophen [...] on above: Take 1 tablet by elzbieta every 8 hours as needed for pain. [...] on above: Take 1 tablet by elzbieta twice daily for 7 days. Take 1 tablet by elzbieta twice daily for 5 days. aspirin 81 mg chewable tablet (20 sources) Platelet Aggregation Inhibitor, Nonsteroidal Anti-inflammatory Drug Start: 06-18-2019 take 81 mg by mouth once daily 81 mg, Oral, DAILY, First dose on Fri06/18/19 at 0900 Start: 06-16-2019 take 1 tablet by elzbieta once daily Aspirin 81 MG tablet,chewable Active [...] 81 mg, Oral, DAILY, First dose on 03/09/19 at 0900 Start: 03-08-2019 End: 03-08-2019 aspirin EC tablet 325 mg take 1 tablet by elzbieta th once daily aspirin 81 MG tablet Take 81 mg by mouth daily. 0 Active Comment on above: Take 1 tablet by elzbieta th once daily. atorvastatin 80 mg oral tablet (20 sources) HMG-CoA Reductase Inhibitor Start: 01-28-2020 atorvastatin (LIPITOR) tablet 80 mg Start: 01-27-2020 End: 01-28-2020 take 10 mg by mouth once daily 10 mg, Oral, DAILY, Fir st dose on Pauline 01/27/20 at 1015 Substituted for Simvastatin (ZOCOR). Start: 03-09-2019 End: 01-27-2020 take 1 tablet by mouth once daily atorvastatin (LIPITOR) 20 mg tablet Take 1 tablet by mouth once daily. 30 tablet 0 05/11/2019 Active atorvastatin (LI PITOR) 40 MG tablet Take 20 mg by mouth daily 0 Active take 1 tablet by elzbieta th once daily atorvastatin (LIPITOR) 40 MG tablet Take 40 mg by mouth daily 0 Active Comment on above: Take 1 tablet by elzbieta th once daily. bisacodyl 10 mg rectal suppository (11 sources) Stimulant Laxative take 10 mg rectal route once daily as needed for constipation bisacodyl (DULCOLAX) 10 mg supp 10 mg by RECTAL route once daily as needed for Constipation. 0 Active Comment on above: 10 mg [address] RECTAL rout e once daily as needed for Constipation. citalopram 20 mg oral tablet (20 sources) Serotonin Reuptake Inhibitor Start: 03-09-20 take 1 tablet by mouth once daily Citalopram 20 MG tablet Active 20 mg PO DAILY June 16, 2019 1:00am Comment on above: Take 1 tablet by elzbieta th once daily. clopidogrel 75 mg oral tablet (20 sources) P2Y12 Platelet Inhibitor Start: 03-23-20 take 1 tablet by mouth once daily Clopidogrel 75 MG tablet Active 75 mg PO DAILY June 16, 2019 1:00am Start: 03-20-2019 End: 2019 take 75 mg by mouth twice daily 75 mg, Oral, 2 TIMES D AILY, First dose on 03/20/19 at 1115 Start: 03-09-2019 take 75 mg by mouth twice dinesh y 75 mg, Oral, 2 TIMES DAILY, First dose on Fri03/09/19 at 0130 Comment on above: Take 1 tablet by [facility] once daily. diphenhydrAMINE hydrochloride 25 mg oral tablet (1 source) Histamine-1 Receptor Antagonist Start: 06-17-19 take 25 mg by mouth every six hours as needed 25 mg, Oral, EVERY 6 HOURS PRN, Itching, Starting Pauline 06/17/19 at 2318 docusate sodium 50 mg / sennosides, alf 8.6 mg oral tablet (11 sources) Start: 12-17-19 20 take 1 tablet by mouth twice daily senna-docusate (SENNA-S) 8.6-50 mg per tablet Take 1 tablet by mouth twice daily. 0 12/17/2019 Active Comment on above: Take 1 tablet by [facility] twice daily. 0.4 ml enoxaparin sodium 100 mg/ml prefilled syringe (4 sources) Low Molecular Weight Heparin Start: 01-27-20 inject 40 mg by subcutaneous injection once daily 40 mg, Subcutaneous, DAILY, First dose on Fri01/27/20 at 1015 Start: 06-18-2019 inject 40 mg by subc utaneous injection once daily 40 mg, Subcutaneous, DAILY, First dose on Fri06/18/19 at 0900 Start: 03-20-2019 inject 40 mg by subc utaneous injection once daily 40 mg, Subcutaneous, DAILY, First dose on 03/20/19 at 1115 Start: 03-09-2019 enoxaparin (LO VENOX) injection 40 mg esomeprazole 40 mg delayed release oral capsule (7 sources) Proton Pump Inhibitor Start: 06-16-2019 take 1 capsule by mouth once daily Esomeprazole Magnesium 40 MG capsule Active 40 mg PO DAILY June 16, 2019 1:00am take 40 mg by mouth once daily e someprazole Magnesium (NEXIUM) 40 MG PACK Take 40 mg by mouth daily 0 Active End: 02-17-2019 take 1 capsule by mouth once daily esomeprazole (NEXIUM) 40 MG capsule Take 40 mg by mouth daily. 0 02/17/2019 Discontinued furosemide 40 mg oral tablet (20 sources) Loop Diuretic Start: 01-27-2020 take 20 mg by mouth twice daily 20 mg, Oral, 2 TIMES DAILY, First dose on Pauline 01/27/20 at 1015 Start: 05-07-2019 take 20 mg by mouth once daily 20 mg, Oral, DAILY, First dose on Fri05/07/19 at 0900 Start: 03-20-2019 End: 01-27-2020 take 1 tablet by mouth once daily Furosemide 20 MG tablet Active 20 mg PO DAILY June 16, 2019 1:00am Start: 03-09-2019 take 20 mg by mouth once daily 20 mg, Oral, DAILY, First dose on Fri03/09/19 at 0900 Start: 01-13-2019 End: 01-13-2019 furosemide (LASIX) injection 20 mg take 1 tablet by elzbieta th twice daily furosemide (LASIX) 20 MG tablet Take 20 mg by mouth 2 times daily 0 Active Comment on above: Take 1 tablet by elzbieta th once daily. ibuprofen 200 mg oral tablet (7 sources) Nonsteroidal Anti-inflammatory Drug Start: 01-27-2020 take 400 mg by mouth twice daily 400 mg, Oral, 2 TIMES DAILY, First dose on Pauline 01/27/20 at 1015 Do not crush or chew. Ibuprofen 200 mg cap Take by mouth every 6 hours as needed. 0 Active take 1 tablet by elzbieta th every twelve hours as needed ibuprofen (MOTRIN) 200 mg tablet Take 20 0 mg by mouth twice daily as needed for Pain. 0 Suspended take 1 tablet by mouth twice allyn ly ibuprofen (ADVIL;MOTRIN) 400 MG tablet Take 400 mg by mouth 2 times daily 0 Active Comment on above: Take 200 mg by mouth twice daily as needed for Pain. Take by mouth every 6 hours as needed. levothyroxine sodium 0.025 mg oral tablet (20 sources) l-Thyroxine Start: 03-09-20 take 1 tablet by mouth once daily Levothyroxine 25 MCG tablet Active 25 ug PO DAILY June 16, 2019 1:00am Comment on above: Take 1 tablet by elzbieta th DAILY (6 AM). lidocaine 0.04 mg/mg / menthol 0.01 mg/mg medicated patch (4 sources) Antiarrhythmic, Amide Local Anesthetic lidocaine-menthol 4- 1 % ptmd Apply to affected area. 0 Active Comment on above: Apply to affected ar ea. lisinopril 20 mg oral tablet (16 sources) Angiotensin Converting Enzyme Inhibitor Start: 01-27-20 20 take 20 mg by mouth once daily 20 mg, Oral, DAILY, First dose on Pauline 01/27/20 at 1015 Start: 06-16-2019 End: 01-27-2020 take 1 tablet by mouth once daily Lisinopril 10 MG tablet Active 10 mg PO DAILY June 16, 2019 1:00am Start: 05-07-2019 take 2.5 mg by mouth once dinesh y 2.5 mg, Oral, DAILY, First dose on 05/07/19 at 0900 Start: 03-20-2019 take 2.5 mg by mouth once dinesh y 2.5 mg, Oral, DAILY, First dose on 03/20/19 at 1115 Start: 03-09-2019 take 2.5 mg by mouth once dinesh y 2.5 mg, Oral, DAILY, First dose on 03/09/19 at 0900 take 2.5 mg by mouth once daily lisinopril (PRINIVIL;ZESTRIL) 10 MG tablet Take 2.5 mg by mouth daily 0 Active Comment on above: Take 20 mg by mouth once daily. magnesium hydroxide 80 mg/ml oral suspension (11 sources) magnesium hydrox tereza (MOM) 400 mg/5 mL suspension Take by mouth once daily as needed for Constipation. 0 Active Comment on above: Take by mouth once d aily as needed for Constipation. melatonin 3 mg oral tablet (3 sources) Start: 06-18-2019 take 3 mg by mouth once daily as needed for sleep 3 mg, Oral, NIGHTLY PRN, Sleep, Starting Fri06/18/19 at 2100 End: 02-17-2019 take 1 tablet by mouth once daily melatonin 5 MG TABS tablet Take 5 mg by mouth daily 0 02/17/2019 Discontinued methylphenidate hydrochloride 5 mg oral tablet (8 sources) Central Nervous System Stimulant Start: 01-27-2020 methylphenidate (RITALIN) tablet 20 mg Start: 06-18-2019 methylphenidat e (RITALIN) tablet 20 mg Start: 05-07-2019 methylphenidat e (RITALIN) tablet 20 mg Start: 03-20-2019 End: 03-25-2019 methylphenidate (RITALIN) ta blet 20 mg Start: 03-20-2019 End: 03-20-2019 methylphenidate (RITALIN) ta blet 10 mg Start: 03-09-2019 methylphenidat e (RITALIN) tablet 10 mg mineral oil 1000 mg/ml enema (11 sources) take 133 mL rectal route once daily as needed for constipation mineral oil (FLEET MINERAL OIL ENEMA) enema 133 mL by RECTAL route once daily as needed for constipation. 0 Active Comment on above: 133 mL by RECTAL rou te once daily as needed for Constipation. nitroglycerin 0.4 mg sublingual tablet (20 sources) Nitrate Vasodilator Start: 020 nitroglycerin (NITRO-BID) 2 % ointment 0.5 inch Start: 05-07-2019 nitroglycerin (NITRO-BID) 2 % ointment 0.5 inch Start: 03-09-2019 0.4 mg, Sublin gual, EVERY 5 MIN PRN, Chest pain, Starting Pauline 01/27/[address] 1 tablet under tongue upon chest pain, wait 5 minutes and may repeat up to 3 doses in 15 minutes. Do not crush or break. Comment on above: Dissolve 0.4 mg unde r the tongue every 5 minutes as needed. oxyCODONE hydrochloride 5 mg oral tablet (19 sources) Opioid Agonist Start: 01-26-2020 End: 01-26-2020 oxyCODONE (ROXICODONE) immediate release tablet 5 mg Start: 06-17-2019 End: 07-01-2019 take 1 tablet by mouth every six hours as needed for pain oxyCODONE (ROXICODONE) 5 MG immediate release tablet Indications: Sciatica of left side Take 1 tablet by mouth every 6 hours as needed for Pain for up to 7 days. 28 tablet 0 06/24/2019 07/01/2019 Active Start: 06-16-2019 End: 01-27-2020 take 1 tablet by mouth once daily Oxycodone 5 MG tablet Active 5 mg PO DAILY June 16, 2019 1:00am Start: 03-09-2019 End: 05-07-2019 take 5 mg by mouth every six hours as needed for pain 5 mg, Oral, EVERY 6 HOURS PRN, Pain Moderate (4-6), Starting 03/20/19 at 1048 take 1 tablet by [facility] every four hours as needed for pain oxyCODONE (ROXICODONE) 5 MG immediate release tablet Take 5 mg by mouth every 4 hours as needed for Pain. 0 Active pantoprazole 40 mg delayed release oral tablet (16 sources) Proton Pump Inhibitor Start: 12-18-2019 take 1 tablet by mouth once daily, then take 6 tablets by mouth in the morning pantoprazole DR (PROTONIX) 40 mg tablet Take 1 tablet by mouth DAILY (6 AM). 0 12/18/2019 Active Start: 06-18-2019 take 40 mg by mouth once daily before breakfast 40 mg, Oral, DAILY BEFORE BREAKFAST, First dose on Fri06/18/19 at 0700 Do not crush or break. Substituted for Omeprazole (PRILOSEC). Start: 05-07-2019 take 40 mg by mouth once daily before breakfast 40 mg, Oral, DAILY BEFORE BREAKFAST, First dose on Fri05/07/19 at 0800 Do not crush or break. Substituted for Omeprazole (PRILOSEC). Start: 03-21-2019 take 40 mg by mouth once daily before breakfast 40 mg, Oral, DAILY BEFORE BREAKFAST, First dose on Fri03/21/19 at 0700 Do not crush or break. Substituted for Omeprazole (PRILOSEC). Start: 03-09-2019 take 40 mg by mouth once daily before breakfast 40 mg, Oral, DAILY BEFORE BREAKFAST, First dose on Fri03/09/19 at 0700 Do not crush or break. Substituted for Omeprazole (PRILOSEC). Comment on above: Take 1 tablet by elzbieta th DAILY (6 AM). 1 ml promethazine hydrochloride 25 mg/ml injection (2 sources) Phenothiazine Start: 01-27-2020 promethazine (PHENERGAN) injection 12.5 mg Start: 06-17-2019 inject 12.5 mg by in tramuscular injection every four hours as needed for nausea 12.5 mg, Intravenous, EVERY 4 HOURS PRN, Nausea, Vomiting, Starting Pauline 06/17/19 at 2315 Recommended route is IM. For IV administration, dilute to 10ml with normal saline. Must be administered over at least 10 minutes. QUEtiapine 100 mg oral tablet (20 sources) Atypical Antipsychotic Start: 03-20-2019 take 1 tablet by mouth at bedtime Quetiapine 100 MG tablet Active 100 mg PO AT BEDTIME June 16, 2019 1:00am QUEtiapine (SERO QUEL) 25 mg tablet Take 25 mg by mouth. 3 25mg tablets at bedtime 0 Active End: 03-09-2019 take 1 tablet by mouth once daily QUEtiapine (SEROQUEL) 100 MG tablet Take 100 mg by mouth nightly 0 03/09/2019 Discontinued Comment on above: Take 1 tablet by elzbieta th daily at bedtime. Take 25 mg by mouth. 3 25mg tablets at bedtime regadenoson (LEXISCAN) injection 0.4 mg (1 source) Start: 9 regadenoson (LEXISCAN) injection 0.4 mg simvastatin 20 mg oral tablet (5 sources) HMG-CoA Reductase Inhibitor Start: 0 take 1 tablet by mouth at bedtime Simvastatin 20 MG tablet Active 20 mg PO AT BEDTIME June 16, 2019 1:00am take 1 tablet by mouth once dinesh y simvastatin (ZOCOR) 40 MG tablet Take 40 mg by mouth nightly 0 Active sodium chloride flush 0.9 % injection 3 mL (3 sources) Start: 01-26-2020 sodium chlorid e flush 0.9 % injection 3 mL Start: 05-06-2019 sodium chlorid e flush 0.9 % injection 3 mL Start: 02-17-2019 sodium chlorid e flush 0.9 % injection 3 mL spironolactone 25 mg oral tablet (4 sources) Aldosterone Antagonist take 1 tablet by mouth once daily spironolactone (ALDACTONE) 25 mg tablet Take 25 mg by mouth once daily. 0 Active Comment on above: Take 25 mg by mouth once daily. tamsulosin hydrochloride 0.4 mg oral capsule (6 sources) alpha-Adrenergic Heidi Start: 01-27-20 20 take 0.4 mg by mouth once daily 0.4 mg, Oral, NIGHTLY, First dose on Pauline 01/27/20 at 2100 Do not crush or break. Comment on above: Take 0.4 mg by mouth once daily. warfarin sodium 5 mg oral tablet (10 sources) Vitamin K Antagonist Start: 12-30-19 22 take 1 tablet by mouth once daily warfarin (COUMADIN) 5 mg tablet Take 1 tablet by mouth daily as directed. 20 tablet 0 12/29/2021 Active Comment on above: Take 1 tablet by elzbieta th daily as directed. Completed/Discontinued Medications Medication Drug Class(es) Dates Sig (Normalized) Sig (Original) acetaminophen 325 mg / oxyCODONE hydrochloride 5 mg oral tablet (3 sources) Opioid Agonist Start: 01-12-2019 End: 01-12-2019 oxyCODONE-acetamin ophen (PERCOCET) 5-325 MG per tablet 1 tablet End: 03-09-2019 take 1 tablet by mouth every four hours as needed for pain oxyCODONE-acetaminophen (PERCOCET) 5-325 MG per tablet Take 1 tablet by mouth every 4 hours as needed for Pain. 0 03/09/2019 Discontinued (LIST CLEANUP) carvedilol 12.5 mg oral tablet (20 sources) alpha-Adrenergic Heidi, beta-Adrenergic Heidi Start: 12-29-2021 take 1 tablet by mouth twice daily at mealtime carvedilol (COREG) 12.5 mg tablet Take 1 tablet by mouth twice daily with meals for 20 days. 40 tablet 0 12/29/2021 Active Start: 01-27-2020 take 25 mg by mouth twice daily at mealtime 25 mg, Oral, 2 TIMES DAILY WITH MEALS, First dose on Pauline 01/27/20 at 1015 Administer with food to minimize the risk of orthostatic hypotension Start: 03-10-2019 carvedilol (CO REG) tablet 12.5 mg Start: 03-09-2019 End: 01-27-2020 take 1 tablet by mouth once daily Carvedilol 6.25 MG tablet Active 6.25 mg PO DAILY June 16, 2019 1:00am Start: 05-10-2013 End: 2019 take 6.25 mg by mouth twice daily at mealtime 6.25 mg, Oral, 2 TIMES DAILY, First dose on 03/20/19 at 1115 Administer with food to minimize the risk of orthostatic hypotension Comment on above: Take 25 mg by mouth twice daily with meals. Take 1 tablet by elzbieta twice daily with meals for 20 days. dexamethasone phosphate 10 mg/ml injectable solution (1 source) Corticosteroid Start: 02-17-2019 End: 02-17-2019 dexamethasone (DECADRON) injection 10 mg diazePAM 5 mg oral tablet (1 source) Benzodiazepine Start: 06-17-2019 End: 06-17-2019 diazepam (VALIUM) tablet 5 mg gadobenate dimeglumine (MULTIHANCE) injection 20 mL (1 source) Start: 2019 End: 2019 gadobenate dimeglumine (MULTIHANCE) injection 20 mL 1 ml HYDROmorphone hydrochloride 1 mg/ml cartridge (4 sources) Opioid Agonist Start: 06-17-2019 End: 06-17-2019 HYDROmorphone (DILAUDID) injection 0.5 mg Start: 2019 End: 2019 HYDROmorphone (DILAUDID) inj ection 1 mg Start: 03-20-2019 End: 03-20-2019 HYDROmorphone (DILAUDID) inj ection 1 mg 24 hr isosorbide mononitrate 30 mg extended release oral tablet (9 sources) Nitrate Vasodilator Start: 05-11-2019 take 1 tablet by mouth once daily isosorbide mononitrate ER (IMDUR) 30 mg 24 hr tablet Take 1 tablet by mouth once daily. 30 tablet 0 05/11/2019 Active Comment on above: Take 1 tablet by elzbieta once daily. metFORMIN hydrochloride 1000 mg oral tablet (9 sources) Biguanide Start: 12-29-2021 take 1 tablet by mouth twice daily at mealtime metFORMIN (GLUCOPHAGE) 1,000 mg tablet Take 1 tablet by mouth twice daily with meals for 20 days. 40 tablet 0 12/29/2021 Active Comment on above: Take 1 tablet by elzbieta twice daily with meals for 20 days. 1 ml morphine sulfate 10 mg/ml injection (5 sources) Opioid Agonist Start: 01-26-2020 End: 01-26-2020 morphine injection 4 mg Start: 06-17-2019 End: 06-17-2019 morphine (PF) injection 4 mg Start: 03-08-2019 End: 03-08-2019 morphine (PF) injection 2 mg Start: 02-17-2019 End: 02-17-2019 morphine injection 4 mg Start: 02-17-2019 End: 02-17-2019 morphine injection 4 mg nabumetone 500 mg oral tablet (2 sources) Nonsteroidal Anti-inflammatory Drug End: 02-17-2019 take 1 tablet by mouth once daily nabumetone (RELAFEN) 500 MG tablet Take 500 mg by mouth daily 0 02/17/2019 Discontinued omeprazole 20 mg delayed release oral capsule (6 sources) Proton Pump Inhibitor End: 01-27-2020 take 2 capsules by mouth once daily omeprazole (PRILOSEC) 20 MG delayed release capsule Take 40 mg by mouth daily 0 01/27/2020 Discontinued (Therapy completed) 2 ml ondansetron 2 mg/ml injection (4 sources) Serotonin-3 Receptor Antagonist Start: 01-26-2020 End: 01-26-2020 ondansetron (ZOFRAN) injection 4 mg Start: 05-07-2019 ondansetron (Z OFRAN) tablet 4 mg Start: 05-07-2019 End: 05-07-2019 ondansetron (ZOFRAN) injecti on 4 mg Start: 01-12-2019 End: 01-12-2019 ondansetron (ZOFRAN) injecti on 4 mg traMADol hydrochloride 50 mg oral tablet (6 sources) Opioid Agonist Start: 03-11-2019 End: 04-10-2019 take 2 tablets by mouth every six hours as needed for pain traMADol (ULTRAM) 50 MG tablet Indications: Chronic left-sided low back pain with left-sided sciatica Take 2 tablets by mouth every 6 hours as needed for Pain for up to 30 days. 120 tablet 0 03/11/2019 2019 Discontinued (LIST CLEANUP) End: 06-24-2019 take 1 tablet by mouth every six hours as needed for pain traMADol (ULTRAM) 50 MG tablet Take 50 mg by mouth every 6 hours as needed for Pain. Breakthrough pain 0 06/24/2019 Discontinued (Stop Taking at Discharge) End: 03-09-2019 take 2 tablets by mouth every six hours as needed for pain traMADol (ULTRAM) 50 MG tablet Take 100 mg by mouth every 6 hours as needed for Pain. 0 03/09/2019 Discontinued (LIST CLEANUP) 24 hr verapamil hydrochloride 120 mg extended release oral capsule (2 sources) Calcium Channel Heidi End: 05-07-2019 take 1 capsule by mouth twice daily verapamil (VERELAN) 120 MG extended release capsule Take 120 mg by mouth 2 times daily 0 05/07/2019 Discontinued (LIST CLEANUP) Problems Active Problems Problem Classification Problem Date Documented Date Episodic/Chronic Congestive heart failure; nonhypertensive (12 sources) Heart failure, unspecified; Translations: [Congestive heart failure] Onset: 03-19-2019 12-13-2019 Chronic Coronary atherosclerosis and other heart disease (20 sources) Coronary arteriosclerosis in [place] artery; Translations: [Old myocardial infarction] Onset: 11-08-2011 Resolved: 03-09-2019 05-16-2018 Chronic Deficiency and other anemia (2 sources) Anemia, unspecified; Translations: [Anemia, unspecified] Onset: 06-07-2018 Episodic Diabetes mellitus without complication (2 sources) Type 2 diabetes mellitus without complications; Translations: [Type 2 diabetes mellitus without complications] Onset: 11-03-2024 Chronic Diabetes mellitus without complication (1 source) Hyperglycemia, unspecified; Translations: [Hyperglycemia, unspecified] Onset: 06-07-2018 Episodic Diseases of white blood cells (8 sources) Leukocytosis; Translations: [Elevated white blood cell count, unspecified] Onset: 05-16-2018 05-16-2018 Chronic Disorders of lipid metabolism (20 sources) Hyperlipidemia; Translations: [Dyslipidemia] Onset: 05-12-2013 05-16-2018 Chronic Esophageal disorders (8 sources) Gastroesophageal reflux disease; Translations: [Gastro-esophageal reflux disease without esophagitis] Onset: 11-10-2015 05-16-2018 Chronic Essential hypertension (20 sources) Hypertensive disorder; Translations: [Essential (primary) hypertension] Onset: 11-08-2011 Resolved: 11-29-2013 05-16-2018 Chronic Miscellaneous mental health disorders (20 sources) Factitious disorder; Translations: [Factitious disorder imposed on self, unspecified] Onset: 12-07-2015 12-07-2015 Chronic Mood disorders (20 sources) Unspecified mood [affective] disorder; Translations: [Major depressive disorder] Onset: 11-08-2011 Resolved: 11-29-2013 05-16-2018 Chronic Nonspecific chest pain (20 sources) Chest pain; Translations: [Chest pain, unspecified] Onset: 07-20-2012 Resolved: 03-19-2019 04-20-2018 Episodic Osteoarthritis (8 sources) Osteoarthritis; Translations: [Unspecified osteoarthritis, unspecified site] Onset: 11-10-2015 05-16-2018 Chronic Other aftercare (1 source) [facility]PC (current) use of antithrombotics/antipl atelets; Translations: [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/ANTIPLATL ETS] Onset: 05-11-2019 Episodic Other aftercare (1 source) 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; Translations: [ASSISTED CURRENT USE OF ASPIRIN] Onset: 05-11-2019 Episodic Other aftercare (1 source) 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; Translations: [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 CURRENT DRUG THERAPY] Onset: 05-11-2019 Episodic Other and ill-defined cerebrovascular disease (2 sources) Cerebral atherosclerosis; Translations: [Cerebral atherosclerosis] Onset: 11-03-2024 Chronic Other bone disease and musculoskeletal deformities (8 sources) Avascular necrosis of bone; Translations: [Idiopathic aseptic necrosis of unspecified bone] Onset: 05-16-2018 05-16-2018 Chronic Other circulatory disease (1 source) Personal history of transient ischemic attack (TIA), and cerebral infarction without residual deficits; Translations: [PERS HX TIA AND CI NO RESID DEFICIT] Onset: 05-11-2019 Episodic Other connective tissue disease (1 source) Unspecified symptoms and signs involving the nervous system; Translations: [Unspecified symptoms and signs involving the nervous system] Onset: 05-16-2018 Episodic Other connective tissue disease (2 sources) Recurrent falls ; Translations: [Recurrent falls] Onset: 06-17-2019 06-17-2019 Other liver diseases (1 source) Abnormal levels of other serum enzymes; Translations: [Abnormal levels of other serum enzymes] Onset: 06-07-2018 Episodic Other lower respiratory disease (1 source) Dyspnea; Translations: [Dyspnea, unspecified type] Episodic Other nervous system disorders (2 sources) Other chronic pain; Translations: [Other chronic pain] Onset: 05-16-2018 Chronic Other nervous system disorders (2 sources) Meralgia paresthetica of left leg; Translations: [Meralgia paresthetica, left lower limb] Onset: 11-17-2016 11-17-2016 Chronic Other nervous system disorders (11 sources) Chronic pain; Translations: [Other chronic pain] Onset: 08-08-2014 05-12-2019 Chronic Other nervous system disorders (20 sources) Unable to walk; Translations: [Difficulty in walking, not elsewhere classified] Onset: 06-09-2018 06-09-2018 Chronic Other nervous system disorders (1 source) Unsteadiness on feet; Translations: [Unsteadiness on feet] Onset: 06-07-2018 Episodic Other nervous system disorders (2 sources) Unspecified lack of coordination; Translations: [Unspecified lack of coordination] Onset: 11-03-2024 Episodic Other nervous system disorders (6 sources) Meralgia paresthetica of left leg; Translations: [Meralgia paresthetica of left side] Onset: 11-17-2016 11-17-2016 Other non-traumatic joint disorders (1 source) Chronic pain of left upper limb; Translations: [Pain in left shoulder] 01-14-2023 Episodic Other non-traumatic joint disorders (1 source) Pain in left shoulder; Translations: [Chronic left shoulder pain] Onset: 01-17-2023 Episodic Other nutritional; endocrine; and metabolic disorders (4 sources) Morbid (severe) obesity due to excess calories; Translations: [Morbid (severe) obesity due to excess calories] Onset: 06-07-2018 Chronic Other nutritional; endocrine; and metabolic disorders (8 sources) Morbid obesity; Translations: [Morbid (severe) obesity due to excess calories] Onset: 09-24-2016 05-16-2018 Chronic Other nutritional; endocrine; and metabolic disorders (9 sources) Obesity; Translations: [Obesity, unspecified] Onset: 05-12-2013 03-09-2019 Chronic Other nutritional; endocrine; and metabolic disorders (11 sources) Body mass index 40+ - severely obese; Translations: [Morbid (severe) obesity due to excess calories] Onset: 07-12-2017 12-13-2019 Chronic Other screening for suspected conditions (not mental disorders or infectious disease) (1 source) Elevated C-reactive protein; Translations: [Elevated C-reactive protein (CRP)] Paralysis (2 sources) Left hemiparesis; Translations: [Acute left-sided weakness] Onset: 09-24-2016 05-16-2018 Chronic Paralysis (1 source) Weakness of left leg; Translations: [Left leg weakness] Peripheral and visceral atherosclerosis (3 sources) Arteriosclerotic vascular disease; Translations: [Unspecified atherosclerosis] Onset: 01-28-2020 01-28-2020 Chronic Residual codes; unclassified (7 sources) Tobacco user; Translations: [Tobacco abuse] Onset: 05-12-2013 03-09-2019 Chronic Residual codes; unclassified (1 source) Peripheral edema; Translations: [Peripheral edema] Episodic Residual codes; unclassified (1 source) Pain, unspecified; Translations: [Pain, unspecified] Onset: 06-07-2018 Substance-related disorders (11 sources) Continuous opioid dependence; Translations: [Opioid dependence, uncomplicated] Onset: 08-08-2014 05-12-2019 Chronic Thyroid disorders (20 sources) Hypothyroidism; Translations: [Hypothyroidism, unspecified] Onset: 11-08-2011 Resolved: 11-29-2013 05-16-2018 Chronic Transient cerebral ischemia (11 sources) Transient cerebral ischemia; Translations: [Transient cerebral ischemic attack, unspecified] Onset: 05-09-2019 12-17-2019 Chronic Unclassified (3 sources) Low back pain / M54.5(ICD-10) Onset: 06-07-2018 Unclassified (1 source) Other chronic pain / G89.29(ICD-10) Onset: 06-07-2018 Unclassified (1 source) Other problems related to lifestyle / Z72.89(ICD-10) Onset: 06-07-2018 Unclassified (1 source) Established Patient Onset: 08-23-2022 Past or Other Problems Problem Classification Problem Date Documented Date Episodic/Chronic Acute and unspecified renal failure (11 sources) Acute renal failure syndrome; Translations: [Acute kidney failure, unspecified] Onset: 12-11-2019 Resolved: 12-13-2019 12-15-2021 Episodic Deficiency and other anemia (8 sources) Anemia; Translations: [Anemia, unspecified] Onset: 05-16-2018 05-16-2018 Episodic Fracture of upper limb (11 sources) Closed Colles' fracture; Translations: [Colles' fracture of right radius, initial encounter for closed fracture] Onset: 07-11-2017 07-11-2017 Episodic Malaise and fatigue (11 sources) Asthenia; Translations: [Weakness] Onset: 02-17-2019 02-22-2019 Episodic Other aftercare (1 source) Encounter for therapeutic drug level monitoring; Translations: [Encounter for therapeutic drug level monitoring] Onset: 04-28-2024 Episodic Other circulatory disease (8 sources) History of cerebrovascular accident; Translations: [Personal history of transient ischemic attack (TIA), and cerebral infarction without residual deficits] Onset: 05-16-2018 05-16-2018 Episodic Other connective tissue disease (8 sources) Neurological symptom; Translations: [Unspecified symptoms and signs involving the nervous system] Onset: 05-15-2018 05-15-2018 Episodic Other connective tissue disease (6 sources) Muscle weakness; Translations: [Weakness] Onset: 09-24-2016 05-16-2018 Episodic Other connective tissue disease (1 source) Pain in left lower limb; Translations: [Left leg pain] Episodic Other connective tissue disease (3 sources) Recurrent falls ; Translations: [Repeated falls] Onset: 06-17-2019 Episodic Other hematologic conditions (1 source) ESR raised; Translations: [Elevated erythrocyte sedimentation rate] Episodic Other nervous system disorders (11 sources) Paresthesia; Translations: [Paresthesia of skin] Onset: 09-01-2016 09-01-2016 Episodic Other nervous system disorders (11 sources) Numbness of upper limb; Translations: [Anesthesia of skin] Onset: 01-29-2018 01-30-2018 Episodic Other non-traumatic joint disorders (1 source) Arthralgia of the pelvic region and thigh; Translations: [Pain in unspecified hip] Onset: 10-17-2005 Resolved: 11-29-2013 11-29-2013 Episodic Other non-traumatic joint disorders (1 source) Pain in lower limb; Translations: [Pain in unspecified knee] Onset: 09-03-2009 Resolved: 11-29-2013 11-29-2013 Episodic Pneumonia (except that caused by tuberculosis or sexually transmitted disease) (1 source) Community acquired pneumonia; Translations: [Pneumonia, unspecified organism] Onset: 12-11-2019 Resolved: 12-14-2019 12-14-2019 Episodic Poisoning by other medications and drugs (1 source) Poisoning by unspecified drugs, medicaments and biological substances, accidental (unintentional), initial encounter; Translations: [Poisoning by unspecified drug or medicinal substance] Onset: 07-09-2013 Resolved: 11-29-2013 05-28-2021 Episodic Residual codes; unclassified (8 sources) Chronic back pain ; Translations: [Chronic back pain] Onset: 05-10-2013 05-16-2018 Episodic Residual codes; unclassified (2 sources) Tobacco user; Translations: [Tobacco use] Onset: 05-12-2013 03-09-2019 Episodic Skin and subcutaneous tissue infections (11 sources) Cellulitis; Translations: [Cellulitis, unspecified] Onset: 12-11-2019 12-14-2019 Episodic Spondylosis; intervertebral disc disorders; other back problems (1 source) Lumbar post-laminectomy syndrome; Translations: [Postlaminectomy syndrome, not elsewhere classified] Onset: 09-03-2009 Resolved: 11-29-2013 11-29-2013 Chronic Spondylosis; intervertebral disc disorders; other back problems (20 sources) Lumbago with sciatica, left side; Translations: [Sciatica, left side] Onset: 07-20-2012 03-20-2019 Episodic Suicide and intentional self-inflicted injury (2 sources) Suicidal thoughts; Translations: [Suicidal ideations] Onset: 11-08-2011 Resolved: 11-29-2013 11-29-2013 Episodic Viral infection (11 sources) Disease caused by 2019-nCoV; Translations: [COVID-19] Onset: 12-10-2019 12-14-2019 Episodic Results Test Name Value Interpretation Reference Range Facility Anion gap in Serum or Plasma Ordered By: Chuy Galeano on 11-01-2024 Anion gap [Moles/Vol] 13 mmol/L 5-15 [facility] BUN/creatinine ratioOrdered By: Chuy Galeano on 11-01-2024 Urea nitrogen/Creatinine [Mass ratio] 17.1 mg/mg 10- [facility] Calculated very low density lipoprotein (VLDL) cholesterol measurementOrdered By: Chuy Galeano on 11-01-2024 Calculated very low density lipoprotein (VLDL) cholesterol measurement 31 mg/dL -40 [facility] Carbon dioxide, total [Moles /volume] in Central venous bloodOrdered By: Chuy Galeano on 11-01-2024 CO2 [Moles/Vol] 22.7 mmol/L 21.0-32.0 [facility] Chloride assayOrdered By: Pavan Galeano on 11-01-2024 Chloride [Moles/Vol] 104 mmol/L 98-108 [facility] [place] Erythrocyte distribution wid th ratioOrdered By: Chuy Galeano on 11-01-2024 Erythrocyte distribution width (RBC) [Ratio] 13.3 % 11.6-14.6 [facility] Erythrocyte distribution wid th standard deviationOrdered By: Chuy Galeano on 11-01-2024 Erythrocyte distribution width (RBC) [Ratio] 46.6 fl High 35.1-43.9 [facility] Glomerular filtration rate ( GFR) estimation/1.73 sq m using serum, plasma, or whole bOrdered By: Chuy Galeano on 11-01-2024 GFR/1.73 sq M.predicted among non-blacks MDRD (S/P/Bld) [Vol rate/Area] 99 mL/min/{1.73_m2} >60 [facility] Comment on above: mL/min/1.73m2 CKD-EP I Creatinine Equation (2020) Hematocrit Auto (Bld) [Volum e fraction]Ordered By: Chuy Galeano on 11-01-2024 Hematocrit (Bld) [Volume fraction] 37.1 % Low 40-54 [facility] Hemoglobin A1c percentageOrd ered By: Chuy Galeano on 11-01-2024 HbA1c (Bld) [Mass fraction] 5.8 % High <5.7 [facility] Comment on above: Normal < 5.7 % Predi abetic 5.7 - 6.4 % Diabetic >or= 6.5 % Please note range changes. Hemoglobin measurementOrdere d By: Chuy Galeano on 11-01-2024 Hemoglobin (Bld) [Mass/Vol] 11.2 g/dL Low 13.0-16.5 [facility] LDL calc ser/plasOrdered By: Chuy Galeano on 11-01-2024 Cholesterol in LDL [Mass/Vol] 65 mg/dL [facility] Comment on above: Pbmptkwyvf=791-629 m g/dL & Higher Oaap=643 mg/dL or greater MCV (mean corpuscular volume ) determinationOrdered By: Chuy Galeano on 11-01-2024 MCV (RBC) [Entitic vol] 95.1 fL High 80-94 [facility] Mean corpuscular hemoglobin (MCH) determinationOrdered By: Chuy Galeano on 11-01-2024 MCH (RBC) [Entitic mass] 28.7 pg 27.0-32.0 [facility] Mean corpuscular hemoglobin concentration (MCHC) determinationOrdered By: Chuy Galeano on 11-01-2024 MCHC (RBC) [Mass/Vol] 30.2 g/dL Low 32-36 [facility] Mean platelet volume determi nationOrdered By: Chuy Galeano on 11-01-2024 Platelet mean volume (Bld) [Entitic vol] 9.9 fL 6.2-12.0 [facility] Platelet countOrdered By: Pavan Galeano on 11-01-2024 Platelets (Bld) [#/Vol] 250 10*3/uL 150-450 [facility] Potassium measurement (mass/ volume)Ordered By: Chuy Galeano on 11-01-2024 Potassium (Unsp spec) [Mass/Vol] 4.3 mmol/L 3.3-5.1 [facility] RBC Auto (Bld) [#/Vol]Ordere d By: Chuy Galeano on 11-01-2024 RBC (Bld) [#/Vol] 3.90 10*6/uL Low 4.6-6.2 [facility] Screening total cholesterol/ high density lipoprotein (HDL) cholesterol ratioOrdered By: Chuy Galeano on 11-01-2024 Cholesterol.total/Cho lesterol in HDL [Mass ratio] 3.71 {ratio} [facility] Serum creatinine measurement (mass/volume)Ordered By: Chuy Galeano on 11-01-2024 Creatinine [Mass/Vol] 0.82 mg/dL 0.70-1.20 [facility] Serum glucose measurement (m ass/volume)Ordered By: Chuy Galeano on 11-01-2024 Glucose [Mass/Vol] 99 mg/dL 70-99 [facility] Serum or plasma calcium douglas urement (mass/volume)Ordered By: Chuy Galeano on 11-01-2024 Calcium [Mass/Vol] 9.4 mg/dL 7.6-11.0 [facility] Serum or plasma cholesterol in HDL measurement (mass/volume)Ordered By: Chuy Galeano on 11-01-2024 Cholesterol in HDL [Mass/Vol] 36 mg/dL Low >40 [facility] Comment on above: National Cholesterol Education Program (NCEP) guidelines:<40 mg/dL: Low HDL-cholesterol (major risk factor for CHD)>= 60 mg/dL: High HDL-cholesterol (negative risk factor for CHD)HDL-cholesterol is affected by a number of factors, e.g. smoking, exercise, hormones, sex and age. Serum or plasma cholesterol measurement (mass/volume)Ordered By: Chuy Galeano on 11-01-2024 Cholesterol [Mass/Vol] 132 mg/dL <201 [facility] Comment on above: Cholesterol level, D esirable <200 mg/dLBorderline high cholesterol 200-239 mg/dLHigh cholesterol >=240 mg/dLRecommendations of the NCEP Adult Treatment Panel for the following risk-cutoff thresholds for the [place] population. Serum or plasma triiodothyro nine (T3) measurement (mass/volume)Ordered By: Chuy Galeano on 11-01-2024 T3 [Mass/Vol] 0.81 ng/mL 0.80-2.00 [facility] Serum or plasma urea nitroge n measurement (mass/volume)Ordered By: Chuy Galeano on 11-01-2024 Urea nitrogen [Mass/Vol] 14 mg/dL 4-19 [facility] Sodium levelOrdered By: Taras Galeano on 11-01-2024 Sodium [Moles/Vol] 140 mmol/L 133-145 [facility] TSH DL <= 0.005 mIU/L QnOrde red By: Chuy Galeano on 11-01-2024 TSH Qn 2.430 uIU/mL 0.300-4.20 0 [facility] ThyroxineOrdered By: Chuy Galeano on 11-01-2024 T4 [Mass/Vol] 7.0 ug/dL 4.5-12.1 [facility] Triglycerides measurementOrd ered By: Chuy Galeano on 11-01-2024 Triglyceride [Mass/Vol] 156 mg/dL <199 [facility] Comment on above: The drugs N-Acetylcy steine and Metamizole may falsely depress this assay. Normal range: <150 mg/dLBorderline High: 150-199 mg/dLHigh: 200-499 mg/dLVery High: >500 mg/dL White blood cell (WBC) count Ordered By: Chuy Galeano on 11-01-2024 WBC (Bld) [#/Vol] 9.1 10*3/uL 4.4-11.0 [facility] Hemoglobin A1c percentageOrd ered By: Chuy Galeano on 10-04-2024 HbA1c (Bld) [Mass fraction] 5.7 % <5.7 [facility] Comment on above: Normal < 5.7 % Predi abetic 5.7 - 6.4 % Diabetic >or= 6.5 % Please note range changes. Vitamin D, 25-hydroxyOrdered By: Chuy Galeano on 08-27-2024 Vitamin D 25-Hydroxy 10.8 ng/mL Low 30-100 [facility] Comment on above: Vitamin D StatusDefi ciency: <20 ng/mL (50nmol/L)Insufficiency: 20-30 ng/mL (50-75 nmol/L)Sufficiency: 30-100 ng/mL (75-250 nmol/L)Toxicity: >100 ng/mL (>250 nmol/L) Hemoglobin A1c percentageOrd ered By: Chuy Galeano on 07-14-2024 HbA1c (Bld) [Mass fraction] 5.6 % 3.8-5.6 [facility] Comment on above: Normal < 5.7 % Predi abetic 5.7 - 6.4 % Diabetic >or= 6.5 % Please note range changes. Hemoglobin A1c percentageOrd ered By: Chuy Galeano on 07-07-2024 HbA1c (Bld) [Mass fraction] 5.3 % 3.8-5.6 [facility] Comment on above: Normal < 5.7 % Predi abetic 5.7 - 6.4 % Diabetic >or= 6.5 % Please note range changes. 05-10-2024 36 Message released to patient as written. Patient's further questions if applicable: Maria Elena (Benedicto Ross) returned call to check the status of referral for patient. Informed Maria Elena that referral not yet in patient's chart for scheduling. Maria Elena can be reached at [phone] at [address] upon confirmation of referral received. Please advise. Were all questions from office addressed or relayed to the patient from encounter: Yes [facility] 3605-03-2024 36 Name of caller: Micah trujillo Contact phone number: [phone] Relationship to Patient: Benedicto Ross- [address] Provider: N/A [place] [facility] [place] Chief Complaint/Reason for Call: Marai Elena states that a referral was sent [...] business hours to return their call: No [facility] (CARMO[facility]) CLINTNATALIE German ([id number]) 1960 Date Time Provider Department 12/09/23 BIBI STEELE CARPOLLY During your visit today, we recorded the following information about you: Rita Estrada 12/09/2023 8:24 AM Signed Annamaria from [facility] left voicemail stating patient would like to schedule appointment. Please call patient at [phone] to schedule appointment. Loraine Song 12/10/2023 10:44 AM Signed The number listed is ringing in as a fax #. Vivien Ramos 12/26/2023 3:04 PM Signed Anni from [facility] called to schedule patient appt. Please call [phone] to schedule. Jeanine Bowling 12/26/2023 3:18 PM Signed I called [facility] back and they sent me to [address] and no one answered, she said to try back.Shaina Pyle 01/05/2024 8:10 AM Signed Called Anni, no answer Loraine Bernabe 01/06/2024 8:10 AM Signed No answer! Loraine Song Allergies As of Date: 12/09/2023 Noted Allergy Reaction FISH DERIVED 08/31/2016 4 - Hives NUBAIN (NALBUPHINE HCL) 12/09/2005 14 - Other: See Comments Comments: "Feels like hes climbing acosta" per pt TORADOL (KETOROLAC TROMETHAMINE) 06/08/2009 4 - Shakila Comments: Pt states that he tolerates aspirin Date Reviewed: 01/17/2023 Reviewed by: Dennis Laureano Tech - Fully Assessed Reason for Visit: Appointment [[id number]] Prescriptions as of 01/06/2024 - spironolactone (ALDACTONE) 25 mg tablet Take 25 mg by mouth once daily. - lidocaine-menthol 4-1 % ptmd Apply to affected area. - tamsulosin (FLOMAX) 0.4 mg Take 0.4 mg by mouth once daily. - QUEtiapine (SEROQUEL) 25 mg tablet Take 25 mg by mouth. 3 25mg tablets at bedtime - HYDROcodone-acetaminophen (NORCO) 5-325 mg per tablet Take 1 tablet by mouth every 8 hours as needed for pain. - Ibuprofen 200 mg cap Take by mouth every 6 hours as needed. - carvedilol (COREG) 12.5 mg tablet Take 1 tablet by mouth twice daily with meals for 20 days. - dextroamphetamine-amphetamin e (ADDERALL) 20 mg tablet Take 1 tablet by mouth twice daily for 5 days. - warfarin (COUMADIN) 5 mg tablet Take 1 tablet by mouth daily as directed. - metFORMIN (GLUCOPHAGE) 1,000 mg tablet Take 1 tablet by mouth twice daily with meals for 20 days. - senna-docusate (SENNA-S) 8.6-50 mg per tablet Take 1 tablet by mouth twice daily. - furosemide (LASIX) 20 mg tablet Take 1 tablet by mouth once daily. - clopidogrel (PLAVIX) 75 mg tablet Take 1 tablet by mouth once daily. - aspirin 81 mg chewable tablet Take 1 tablet by mouth once daily. - pantoprazole DR (PROTONIX) 40 mg tablet Take 1 tablet by mouth DAILY (6 AM). - acetaminophen (TYLENOL) 325 mg tablet Take 650 mg by mouth every 6 hours as needed for Pain or Fever. - bisacodyl (DULCOLAX) 10 mg supp 10 mg by RECTAL route once daily as needed for Constipation. - magnesium hydroxide (MOM) 400 mg/5 mL suspension Take by mouth once daily as needed for Constipation. - mineral oil (FLEET MINERAL OIL ENEMA) enema 133 mL by RECTAL route once daily as needed for constipation. - atorvastatin (LIPITOR) 20 mg tablet Take 1 tablet by mouth once daily. - citalopram (CELEXA) 20 mg tablet Take 1 tablet by mouth once daily. - isosorbide mononitrate ER (IMDUR) 30 mg 24 hr tablet Take 1 tablet by mouth once daily. - QUEtiapine (SEROQUEL) 100 mg tablet Take 1 tablet by mouth daily at bedtime. - levothyroxine (SYNTHROID) 25 mcg tablet Take 1 tablet by mouth DAILY (6 AM). - nitroglycerin sublingual (NITROQUICK) 0.4 mg SL tablet Dissolve 0.4 mg under the tongue every 5 minutes as needed. Meds Comments as of 01/16/2018: Patient uses pharmacy at the facility. Problem List As Of Date 12/09/2023 Noted Resolved Pain in joint, pelvic region and thigh [M25.559]10/17/2005 11/29/2013 Postlaminectomy syndrome, lumbar region [M96.1] 09/03/2009 11/29/2013 Pain in Joint, Lower Leg, right knee [M25.569] 09/03/2009 11/29/2013 Suicidal ideation [R45.851] 11/08/2011 11/29/2013 Depression [F32.A] 11/08/2011 11/29/2013 HTN (hypertension) [I10] 11/08/2011 11/29/2013 Hypothyroidism [E03.9] 11/08/2011 11/29/2013 CAD (coronary artery disease) [I25.10] 11/08/2011 Chest pain at rest [R07.9] 07/20/2012 11/29/2013 Back pain [M54.9] 07/20/2012 Recurrent major depression (HCC) [F33.9] 06/25/2013 11/29/2013 Drug overdose [T50.901A] 07/09/2013 11/29/2013 MDD (major depressive disorder), recurrent eryn*07/30/2013 11/29/2013 Chest pain [R07.9] 08/08/2014 01/12/2019 HTN (hypertension) [I10] 08/08/2014 Hypothyroid [E03.9] 08/08/2014 Chronic pain [G89.29] 08/08/2014 Opiate dependence, continuous (HCC) [F11.20] 08/08/2014 Factitious disorder [F68.10] 12/07/2015 Mixed hyperlipidemia [E78.2] 07/13/2016 Paresthesia of left arm and leg [R20.2] 09/01/2016 Fracture, Colles, right, closed [S52.531A] 07/11/2017 (more content not included)... Normal [facility] Basophil percentageOrdered B y: Chuy Galeano on 08-28-2023 Bilirubin [Mass/Vol] 0.30 mg/dL 0.20-1.00 [facility] Comment on above: For patients on eltr ombopag therapy, use of [facility] [place] TBIL is not recommended. Chloride [Moles/Vol] 107 mmol/L 98-107 [facility] Cholesterol [Mass/Vol] 102 mg/dL <200 [facility] Comment on above: <200 mg/dL Desirable 200-240 mg/dL Borderline >240 mg/dL High Risk Glucose [Mass/Vol] 104 mg/dL 74-106 [facility] Comment on above: Fasting Glucose resu lt from 100 to 125 mg/dL suggests IMPAIRED HOMEOSTASIS per A.D.A. criteria. Hemoglobin (Bld) [Mass/Vol] 11.9 g/dL 13.0-16.5 [facility] Potassium [Moles/Vol] 4.1 mmol/L 3.5-5.1 [facility] Protein [Mass/Vol] 7.9 g/dL 6.4-8.2 [facility] Sodium [Moles/Vol] 138 mmol/L 136-145 [facility] Triglyceride [Mass/Vol] 122 mg/dL <199 [facility] Comment on above: The drugs N-Acetylcy steine and Metamizole may falsely depress this assay.Serum Triglycerides Reference Interval Normal <150 mg/dL Borderline high 150 - 199 mg/dL High 200 - 499 mg/dL Very High > or = 500 mg/dL WBC (Bld) [#/Vol] 9.3 10*3/uL 4.4-11.0 [facility] Determination of erythrocyte mean corpuscular volume (MCV)Ordered By: Chuy Galeano on 08-28-2023 MCV (RBC) [Entitic vol] 95.9 fL 80-94 [facility] Erythrocyte distribution wid th ratioOrdered By: Chuy Galeano on 08-28-2023 Erythrocyte distribution width (RBC) [Ratio] 13.1 % 11.6-14.6 [facility] Erythrocyte distribution wid th standard deviationOrdered By: Chuy Galeano on 08-28-2023 Erythrocyte distribution width (RBC) [Entitic vol] 46.0 fL 35.1-43.9 [facility] Hematocrit Auto (Bld) [Volum e fraction]Ordered By: Chuy Galeano on 08-28-2023 Hematocrit (Bld) [Volume fraction] 37.5 % 40-54 [facility] - Chemistry and C hemistry - challengeOrdered By: Chuy Galeano on 08-28-2023 Albumin/Globulin [Mass ratio] 0.8 {ratio} 0.9-2.4 [facility] ALP [Catalytic activity/Vol] 163 U/L 45-117 [facility] ALT [Catalytic activity/Vol] 10 U/L 16-61 [facility] Cholesterol in HDL [Mass/Vol] 38 mg/dL >40 [facility] Comment on above: The drugs N-Acetylcy steine and Metamizole may falsely depress this assay. Reference Range HDL <40 mg/dL Low HDL Cholesterol HDL >or= 60 mg/dL High HDL Cholesterol Cholesterol in LDL [Mass/Vol] 40 mg/dL 0-130 [facility] CO2 [Moles/Vol] 26.0 mmol/L 21.0-32.0 [facility] Globulin (S) [Mass/Vol] 4.4 g/dL 2.2-4.2 [facility] Magnesium [Mass/Vol] 2.4 mg/dL 1.6-2.6 [facility] Urea nitrogen/Creatinine [Mass ratio] 11.3 mg/mg 10-20 [facility] - Hematology and Cell countsOrdered By: Chuy Galeano on 08-28-2023 MCH (RBC) [Entitic mass] 30.4 pg 27.0-32.0 [facility] MCHC (RBC) [Mass/Vol] 31.7 g/dL 32-36 [facility] Platelet mean volume (Bld) [Entitic vol] 9.9 fL 6.2-12.0 [facility] Platelets (Bld) [#/Vol] 275 10*3/uL 150-450 [facility] No Panel InformationOrdered By: Chuy Gaelano on 08-28-2023 Estimated GFR (MDRD) Amer 91 mL/min >60 [facility] Comment on above: GFR Calc Estimated GFR (MDRD) Non-Af Amer 75 mL/min >60 [facility] Comment on above: Non- GFR Calc Vitamin D 25-Hydroxy 11.8 ng/mL [facility] Comment on above: Vitamin D 25(OH) Sta tus Range Deficiency <20 ng/mL (50nmol/L) Insufficiency 20 - 30 ng/mL (50 - 75 nmol/L) Sufficiency 30 - 100 ng/mL (75 - 250 nmol/L) Toxicity >100 ng/mL (>250 nmol/L) VLDL Cholesterol 24 mg/dL 5-40 [facility] RBC Auto (Bld) [#/Vol]Ordere d By: Chuy Galeano on 08-28-2023 RBC (Bld) [#/Vol] 3.91 10*6/uL 4.6-6.2 [facility] Serum or plasma calcium douglas urement (mass/volume)Ordered By: Chuy Galeano on 08-28-2023 Calcium [Mass/Vol] 9.1 mg/dL 8.5-10.1 [facility] Serum or plasma creatinine m easurement (mass/volume)Ordered By: Chuy Galeano on 08-28-2023 Creatinine [Mass/Vol] 1.06 mg/dL 0.70-1.30 [facility] Comment on above: The validity of the calculated GFR & GFRAA in patients over 70 years has not been determined. Clinical correlation is essential. Serum or plasma thyroid stim ulating hormone (TSH) measurement (units/volume)Ordered By: Chuy Galeano on 08-28-2023 TSH Qn 3.03 uIU/mL 0.358-3.74 [facility] Serum or plasma urea nitroge n measurement (mass/volume)Ordered By: Chuy Galeano on 08-28-2023 Urea nitrogen [Mass/Vol] 12 mg/dL 7-18 [facility] Thin prep Papanicolaou smear with manual screeningOrdered By: Chuy Galeano on 08-28-2023 Thin prep Papanicolaou smear with manual screening 3.5 g/dL 3.2-5.0 [facility] Thin prep Papanicolaou smear with manual screening 15 U/L 15-37 [facility] Thin prep Papanicolaou smear with manual screening 5 5-15 [facility] Whole blood hemoglobin A1c/t otal hemoglobin ratio (mass fraction)Ordered By: Chuy Galeano on 08-28-2023 HbA1c (Bld) [Mass fraction] 5.3 % 3.8-5.6 [facility] Comment on above: Normal < 5.7 % Predi abetic 5.7 - 6.4 % Diabetic >or= 6.5 % Please note range changes. Laboratory - Chemistry and C hemistry - challengeOrdered By: Chuy Galeano on 04-04-2023 T4 [Mass/Vol] 8.0 ug/dL 4.5-12.1 [facility] No Panel InformationOrdered By: Chuy Galeano on 04-04-2023 Thyroid Stimulating Hormone (TSH) 2.55 uIU/mL 0.358-3.74 [facility] Total Triiodothyronine 0.88 ng/mL 0.6-1.81 [facility] CNOVon 01-17-2023 CNOV Office Visit ([facility] ) NATALIE GERBER ([id number]) 1960 M Date Time Provider Department 01/17/23 9:15 AM [facility] During your visit today, we recorded the following information about you: Respiration Weight Height 16/minute 134.3 kg 1.651 m Referring Provider: SELF [200] Allergies As of Date: 01/17/2023 Noted Allergy Reaction FISH DERIVED 08/31/2016 4 - Hives NUBAIN (NALBUPHINE HCL) 12/09/2005 14 - Other: See Comments Comments: "Feels like hes climbing acosta" per pt TORADOL (KETOROLAC TROMETHAMINE) 06/08/2009 4 - Hives Comments: Pt states that he tolerates aspirin Date Reviewed: 01/17/2023 Reviewed by: Dennis Laureano Tech - Fully Assessed Reason for Visit: Established Patient [175] Follow Up [171] Pain [78] Primary Visit Diagnosis:Chronic left shoulder pain [M25.512, G89.29] Order(s):XR SHOULDER 3V AP/Y VIEW/AXILLARY LEFT (AK) [[id number]] Order #: [id number] Prescriptions as of 01/21/2023 - spironolactone (ALDACTONE) 25 mg tablet Take 25 mg by mouth once daily. - lidocaine-menthol 4-1 % ptmd Apply to affected area. - tamsulosin (FLOMAX) 0.4 mg Take 0.4 mg by mouth once daily. - QUEtiapine (SEROQUEL) 25 mg tablet Take 25 mg by mouth. 3 25mg tablets at bedtime - HYDROcodone-acetaminophen (NORCO) 5-325 mg per tablet Take 1 tablet by mouth every 8 hours as needed for pain. - Ibuprofen 200 mg cap Take by mouth every 6 hours as needed. - carvedilol (COREG) 12.5 mg tablet Take 1 tablet by mouth twice daily with meals for 20 days. - dextroamphetamine-amphetamin e (ADDERALL) 20 mg tablet Take 1 tablet by mouth twice daily for 5 days. - warfarin (COUMADIN) 5 mg tablet Take 1 tablet by mouth daily as directed. - metFORMIN (GLUCOPHAGE) 1,000 mg tablet Take 1 tablet by mouth twice daily with meals for 20 days. - senna-docusate (SENNA-S) 8.6-50 mg per tablet Take 1 tablet by mouth twice daily. - furosemide (LASIX) 20 mg tablet Take 1 tablet by mouth once daily. - clopidogrel (PLAVIX) 75 mg tablet Take 1 tablet by mouth once daily. - aspirin 81 mg chewable tablet Take 1 tablet by mouth once daily. - pantoprazole DR (PROTONIX) 40 mg tablet Take 1 tablet by mouth DAILY (6 AM). - acetaminophen (TYLENOL) 325 mg tablet Take 650 mg by mouth every 6 hours as needed for Pain or Fever. - bisacodyl (DULCOLAX) 10 mg supp 10 mg by RECTAL route once daily as needed for Constipation. - magnesium hydroxide (MOM) 400 mg/5 mL suspension Take by mouth once daily as needed for Constipation. - mineral oil (FLEET MINERAL OIL ENEMA) enema 133 mL by RECTAL route once daily as needed for constipation. - atorvastatin (LIPITOR) 20 mg tablet Take 1 tablet by mouth once daily. - citalopram (CELEXA) 20 mg tablet Take 1 tablet by mouth once daily. - isosorbide mononitrate ER (IMDUR) 30 mg 24 hr tablet Take 1 tablet by mouth once daily. - QUEtiapine (SEROQUEL) 100 mg tablet Take 1 tablet by mouth daily at bedtime. - levothyroxine (SYNTHROID) 25 mcg tablet Take 1 tablet by mouth DAILY (6 AM). - nitroglycerin sublingual (NITROQUICK) 0.4 mg SL tablet Dissolve 0.4 mg under the tongue every 5 minutes as needed. Meds Comments as of 01/16/2018: Patient uses pharmacy at the facility. Problem List As Of Date 01/17/2023 Noted Resolved Pain in joint, pelvic region and thigh [M25.559]10/17/2005 11/29/2013 Postlaminectomy syndrome, lumbar region [M96.1] 09/03/2009 11/29/2013 Pain in Joint, Lower Leg, right knee [M25.569] 09/03/2009 11/29/2013 Suicidal ideation [R45.851] 11/08/2011 11/29/2013 Depression [F32.A] 11/08/2011 11/29/2013 HTN (hypertension) [I10] 11/08/2011 11/29/2013 Hypothyroidism [E03.9] 11/08/2011 11/29/2013 CAD (coronary artery disease) [I25.10] 11/08/2011 Chest pain at rest [R07.9] 07/20/2012 11/29/2013 Back pain [M54.9] 07/20/2012 Recurrent major depression (HCC) [F33.9] 06/25/2013 11/29/2013 Drug overdose [T50.901A] 07/09/2013 11/29/2013 MDD (major depressive disorder), recurrent eryn*07/30/2013 11/29/2013 Chest pain [R07.9] 08/08/2014 01/12/2019 HTN (hypertension) [I10] 08/08/2014 Hypothyroid [E03.9] 08/08/2014 Chronic pain [G89.29] 08/08/2014 Opiate dependence, continuous (HCC) [F11.20] 08/08/2014 Factitious disorder [F68.10] 12/07/2015 Mixed hyperlipidemia [E78.2] 07/13/2016 Paresthesia of left arm and leg [R20.2] 09/01/2016 Fracture, Colles, right, closed [S52.531A] 07/11/2017 Obesity, Class III, BMI >= 40 (morbid obesity) *07/12/2017 Left arm numbness [R20.0] 01/29/2018 Sciatica [M54.30] 06/07/2018 Inability to ambulate due to multiple joints [R*06/09/2018 Inability to ambulate due to hip [R26.2] 12/03/2018 Weakness [R53.1] 02/17/2019 Congestive heart failure (HCC) [I50.9] 03/19/2019 Chest pain [R07.9] 03/19/2019 03/19/2019 TIA (transient ischemic attack) [G45.9] 05/09/2019 Conversion disorder [F44.9] 05/10/2019 COVID-19 [U07.1] (more content not included)... Normal [facility] 11-22-2022 [facility] ([facility]) NATALIE GERBER ([id number]) 1960 M Date Time Provider Department 11/22/22 [facility] During your visit today, we recorded the following information about you: Lg Chinchilla 11/22/2022 1:02 PM Signed Called patient about their No Show appointment with the clinic on 11/22. Patient requested to reschedule their appointment. Rescheduled patient to 12/13. Allergies As of Date: 11/22/2022 Noted Allergy Reaction FISH DERIVED 08/31/2016 4 - Hivvenkata NUBAIN (NALBUPHINE HCL) 12/09/2005 14 - Other: See Comments Comments: "Feels like hes climbing acosta" per pt TORADOL (KETOROLAC TROMETHAMINE) 06/08/2009 4 - Shakila Comments: Pt states that he tolerates aspirin Date Reviewed: 08/23/2022 Reviewed by: Hemanth Kennedy MD - Fully Assessed Reason for Visit: Appointment [186] Cmt: No Show on 11/22 Prescriptions as of 11/22/2022 - spironolactone (ALDACTONE) 25 mg tablet Take 25 mg by mouth once daily. - lidocaine-menthol 4-1 % ptmd Apply to affected area. - tamsulosin (FLOMAX) 0.4 mg Take 0.4 mg by mouth once daily. - QUEtiapine (SEROQUEL) 25 mg tablet Take 25 mg by mouth. 3 25mg tablets at bedtime - HYDROcodone-acetaminophen (NORCO) 5-325 mg per tablet Take 1 tablet by mouth every 8 hours as needed for pain. - Ibuprofen 200 mg cap Take by mouth every 6 hours as needed. - carvedilol (COREG) 12.5 mg tablet Take 1 tablet by mouth twice daily with meals for 20 days. - dextroamphetamine-amphetamin e (ADDERALL) 20 mg tablet Take 1 tablet by mouth twice daily for 5 days. - warfarin (COUMADIN) 5 mg tablet Take 1 tablet by mouth daily as directed. - metFORMIN (GLUCOPHAGE) 1,000 mg tablet Take 1 tablet by mouth twice daily with meals for 20 days. - senna-docusate (SENNA-S) 8.6-50 mg per tablet Take 1 tablet by mouth twice daily. - furosemide (LASIX) 20 mg tablet Take 1 tablet by mouth once daily. - clopidogrel (PLAVIX) 75 mg tablet Take 1 tablet by mouth once daily. - aspirin 81 mg chewable tablet Take 1 tablet by mouth once daily. - pantoprazole DR (PROTONIX) 40 mg tablet Take 1 tablet by mouth DAILY (6 AM). - acetaminophen (TYLENOL) 325 mg tablet Take 650 mg by mouth every 6 hours as needed for Pain or Fever. - bisacodyl (DULCOLAX) 10 mg supp 10 mg by RECTAL route once daily as needed for Constipation. - magnesium hydroxide (MOM) 400 mg/5 mL suspension Take by mouth once daily as needed for Constipation. - mineral oil (FLEET MINERAL OIL ENEMA) enema 133 mL by RECTAL route once daily as needed for Constipation. - atorvastatin (LIPITOR) 20 mg tablet Take 1 tablet by mouth once daily. - citalopram (CELEXA) 20 mg tablet Take 1 tablet by mouth once daily. - isosorbide mononitrate ER (IMDUR) 30 mg 24 hr tablet Take 1 tablet by mouth once daily. - QUEtiapine (SEROQUEL) 100 mg tablet Take 1 tablet by mouth daily at bedtime. - levothyroxine (SYNTHROID) 25 mcg tablet Take 1 tablet by mouth DAILY (6 AM). - nitroglycerin sublingual (NITROQUICK) 0.4 mg SL tablet Dissolve 0.4 mg under the tongue every 5 minutes as needed. Meds Comments as of 01/16/2018: Patient uses pharmacy at the facility. Problem List As Of Date 11/22/2022 Noted Resolved Pain in joint, pelvic region and thigh [M25.559]10/17/2005 11/29/2013 Postlaminectomy syndrome, lumbar region [M96.1] 09/03/2009 11/29/2013 Pain in Joint, Lower Leg, right knee [M25.569] 09/03/2009 11/29/2013 Suicidal ideation [R45.851] 11/08/2011 11/29/2013 Depression [F32.A] 11/08/2011 11/29/2013 HTN (hypertension) [I10] 11/08/2011 11/29/2013 Hypothyroidism [E03.9] 11/08/2011 11/29/2013 CAD (coronary artery disease) [I25.10] 11/08/2011 Chest pain at rest [R07.9] 07/20/2012 11/29/2013 Back pain [M54.9] 07/20/2012 Recurrent major depression (HCC) [F33.9] 06/25/2013 11/29/2013 Drug overdose [T50.901A] 07/09/2013 11/29/2013 MDD (major depressive disorder), recurrent eryn*07/30/2013 11/29/2013 Chest pain [R07.9] 08/08/2014 01/12/2019 HTN (hypertension) [I10] 08/08/2014 Hypothyroid [E03.9] 08/08/2014 Chronic pain [G89.29] 08/08/2014 Opiate dependence, continuous (HCC) [F11.20] 08/08/2014 Factitious disorder [F68.10] 12/07/2015 Mixed hyperlipidemia [E78.2] 07/13/2016 Paresthesia of left arm and leg [R20.2] 09/01/2016 Fracture, Colles, right, closed [S52.531A] 07/11/2017 Obesity, Class III, BMI >= 40 (morbid obesity) *07/12/2017 Left arm numbness [R20.0] 01/29/2018 Sciatica [M54.30] 06/07/2018 Inability to ambulate due to multiple joints [R*06/09/2018 Inability to ambulate due to hip [R26.2] 12/03/2018 Weakness [R53.1] 02/17/2019 Congestive heart failure (HCC) [I50.9] 03/19/2019 Chest pain [R07.9] 03/19/2019 03/19/2019 TIA (transient ischemic attack) [G45.9] 05/09/2019 Conversion disorder [F44.9] 05/10/2019 COVID-19 [U07.1] 12/10/2019 DERREK (acute kidney injury) (HCC) [N17.9] 12/11/2019 (more content not included)... Normal [facility] CNPNon 11-20-2022 [facility] Telephone ([facility]) NATALIE GERBER ([id number]) 1960 M Date Time Provider Department 11/20/22 [facility] During your visit today, we recorded the following information about you: Lg Chinchilla 11/20/2022 2:07 PM Signed Called patient to remind them about their appointment with the clinic on 11/22 . Patient confirmed appointment. Allergies As of Date: 11/20/2022 Noted Allergy Reaction FISH DERIVED 08/31/2016 4 - Hives NUBAIN (NALBUPHINE HCL) 12/09/2005 14 - Other: See Comments Comments: "Feels like hes climbing acosta" per pt TORADOL (KETOROLAC TROMETHAMINE) 06/08/2009 4 - Hives Comments: Pt states that he tolerates aspirin Date Reviewed: 08/23/2022 Reviewed by: Hemanth Kennedy MD - Fully Assessed Reason for Visit: Appointment [186] Cmt: 11/22 appointment reminder Prescriptions as of 11/20/2022 - spironolactone (ALDACTONE) 25 mg tablet Take 25 mg by mouth once daily. - lidocaine-menthol 4-1 % ptmd Apply to affected area. - tamsulosin (FLOMAX) 0.4 mg Take 0.4 mg by mouth once daily. - QUEtiapine (SEROQUEL) 25 mg tablet Take 25 mg by mouth. 3 25mg tablets at bedtime - HYDROcodone-acetaminophen (NORCO) 5-325 mg per tablet Take 1 tablet by mouth every 8 hours as needed for pain. - Ibuprofen 200 mg cap Take by mouth every 6 hours as needed. - carvedilol (COREG) 12.5 mg tablet Take 1 tablet by mouth twice daily with meals for 20 days. - dextroamphetamine-amphetamin e (ADDERALL) 20 mg tablet Take 1 tablet by mouth twice daily for 5 days. - warfarin (COUMADIN) 5 mg tablet Take 1 tablet by mouth daily as directed. - metFORMIN (GLUCOPHAGE) 1,000 mg tablet Take 1 tablet by mouth twice daily with meals for 20 days. - senna-docusate (SENNA-S) 8.6-50 mg per tablet Take 1 tablet by mouth twice daily. - furosemide (LASIX) 20 mg tablet Take 1 tablet by mouth once daily. - clopidogrel (PLAVIX) 75 mg tablet Take 1 tablet by mouth once daily. - aspirin 81 mg chewable tablet Take 1 tablet by mouth once daily. - pantoprazole DR (PROTONIX) 40 mg tablet Take 1 tablet by mouth DAILY (6 AM). - acetaminophen (TYLENOL) 325 mg tablet Take 650 mg by mouth every 6 hours as needed for Pain or Fever. - bisacodyl (DULCOLAX) 10 mg supp 10 mg by RECTAL route once daily as needed for Constipation. - magnesium hydroxide (MOM) 400 mg/5 mL suspension Take by mouth once daily as needed for Constipation. - mineral oil (FLEET MINERAL OIL ENEMA) enema 133 mL by RECTAL route once daily as needed for Constipation. - atorvastatin (LIPITOR) 20 mg tablet Take 1 tablet by mouth once daily. - citalopram (CELEXA) 20 mg tablet Take 1 tablet by mouth once daily. - isosorbide mononitrate ER (IMDUR) 30 mg 24 hr tablet Take 1 tablet by mouth once daily. - QUEtiapine (SEROQUEL) 100 mg tablet Take 1 tablet by mouth daily at bedtime. - levothyroxine (SYNTHROID) 25 mcg tablet Take 1 tablet by mouth DAILY (6 AM). - nitroglycerin sublingual (NITROQUICK) 0.4 mg SL tablet Dissolve 0.4 mg under the tongue every 5 minutes as needed. Meds Comments as of 01/16/2018: Patient uses pharmacy at the facility. Problem List As Of Date 11/20/2022 Noted Resolved Pain in joint, pelvic region and thigh [M25.559]10/17/2005 11/29/2013 Postlaminectomy syndrome, lumbar region [M96.1] 09/03/2009 11/29/2013 Pain in Joint, Lower Leg, right knee [M25.569] 09/03/2009 11/29/2013 Suicidal ideation [R45.851] 11/08/2011 11/29/2013 Depression [F32.A] 11/08/2011 11/29/2013 HTN (hypertension) [I10] 11/08/2011 11/29/2013 Hypothyroidism [E03.9] 11/08/2011 11/29/2013 CAD (coronary artery disease) [I25.10] 11/08/2011 Chest pain at rest [R07.9] 07/20/2012 11/29/2013 Back pain [M54.9] 07/20/2012 Recurrent major depression (HCC) [F33.9] 06/25/2013 11/29/2013 Drug overdose [T50.901A] 07/09/2013 11/29/2013 MDD (major depressive disorder), recurrent eryn*07/30/2013 11/29/2013 Chest pain [R07.9] 08/08/2014 01/12/2019 HTN (hypertension) [I10] 08/08/2014 Hypothyroid [E03.9] 08/08/2014 Chronic pain [G89.29] 08/08/2014 Opiate dependence, continuous (HCC) [F11.20] 08/08/2014 Factitious disorder [F68.10] 12/07/2015 Mixed hyperlipidemia [E78.2] 07/13/2016 Paresthesia of left arm and leg [R20.2] 09/01/2016 Fracture, Colles, right, closed [S52.531A] 07/11/2017 Obesity, Class III, BMI >= 40 (morbid obesity) *07/12/2017 Left arm numbness [R20.0] 01/29/2018 Sciatica [M54.30] 06/07/2018 Inability to ambulate due to multiple joints [R*06/09/2018 Inability to ambulate due to hip [R26.2] 12/03/2018 Weakness [R53.1] 02/17/2019 Congestive heart failure (HCC) [I50.9] 03/19/2019 Chest pain [R07.9] 03/19/2019 03/19/2019 TIA (transient ischemic attack) [G45.9] 05/09/2019 Conversion disorder [F44.9] 05/10/2019 COVID-19 [U07.1] 12/10/2019 DERREK (acute kidney injury) (HCC) [N17.9] 12/11/2019 12/13/2019 Cellulitis [L03.90] (more content not included)... Normal [facility] CNOVon 08-23-2022 CNOV Office Visit ([facility] ) CLINTNATALIE German ([id number]) 1960 M Date Time Provider Department 08/23/22 9:15 AM [facility] During your visit today, we recorded the following information about you: Respiration Weight Height 20/minute 134.4 kg 1.651 m Hemanth Kennedy MD 08/23/2022 1:01 PM Signed Chief complaint: Left rotator cuff tear Natalie [...] mobility with his left shoulder. Is prescribed [place] and tramadol by his nursing facility. Pain [...] total hip replacement PAST SURGICAL HISTORY OF 2004 total hip replacement left FAMILY HISTORY Problem [...] twice daily with meals for 20 days. dextroamphetamine-amphetamin e (ADDERALL) 20 mg tablet Take 1 tablet [...] Other: See Comments Feels like hes climbing acosta" per pt Toradol [Ketorolac * Hives Pt states that he tolerates aspirin Physical Examination: Resp 20 Ht 5' 5" (1.65m) Wt 296 lb 3.2 oz (134.4kg) BMI 49.29 kg/(m2). Left upper extremity: Left shoulder is atraumatic. No swelling, superficial abrasions, or erythema about t (more content not included)... Normal [facility] CNPNon 08-21-2022 CNPN Telephone ([facility]) NATALIE GERBER ([id number]) 1960 M Date Time Provider Department 08/21/22 [facility] During your visit today, we recorded the following information about you: Lg Chinchilla 08/21/2022 1:17 PM Signed Called patient to remind them about their appointment with the Clinic on 08/23. Patient confirmed appointment. Allergies As of Date: 08/21/2022 Noted Allergy Reaction FISH DERIVED 08/31/2016 4 - Kadiees NUBAIN (NALBUPHINE HCL) 12/09/2005 14 - Other: See Comments Comments: "Feels like hes climbing acosta" per pt TORADOL (KETOROLAC TROMETHAMINE) 06/08/2009 4 - Shakila Comments: Pt states that he tolerates aspirin Date Reviewed: 12/29/2021 Reviewed by: Charbel Medrano RN - Fully Assessed Reason for Visit: Appointment [186] Cmt: 08/23 appointment reminder Prescriptions as of 08/21/2022 - carvedilol (COREG) 12.5 mg tablet Take 1 tablet by mouth twice daily with meals for 20 days. - dextroamphetamine-amphetamin e (ADDERALL) 20 mg tablet Take 1 tablet by mouth twice daily for 5 days. - warfarin (COUMADIN) 5 mg tablet Take 1 tablet by mouth daily as directed. - metFORMIN (GLUCOPHAGE) 1,000 mg tablet Take 1 tablet by mouth twice daily with meals for 20 days. - senna-docusate (SENNA-S) 8.6-50 mg per tablet Take 1 tablet by mouth twice daily. - furosemide (LASIX) 20 mg tablet Take 1 tablet by mouth once daily. - clopidogrel (PLAVIX) 75 mg tablet Take 1 tablet by mouth once daily. - aspirin 81 mg chewable tablet Take 1 tablet by mouth once daily. - pantoprazole DR (PROTONIX) 40 mg tablet Take 1 tablet by mouth DAILY (6 AM). - acetaminophen (TYLENOL) 325 mg tablet Take 650 mg by mouth every 6 hours as needed for Pain or Fever. - bisacodyl (DULCOLAX) 10 mg supp 10 mg by RECTAL route once daily as needed for Constipation. - magnesium hydroxide (FROST MILK OF MAGNESIA) 400 mg/5 mL suspension Take by mouth once daily as needed for Constipation. - mineral oil (FLEET MINERAL OIL ENEMA) enema 133 mL by RECTAL route once daily as needed for Constipation. - atorvastatin (LIPITOR) 20 mg tablet Take 1 tablet by mouth once daily. - citalopram (CELEXA) 20 mg tablet Take 1 tablet by mouth once daily. - isosorbide mononitrate ER (IMDUR) 30 mg 24 hr tablet Take 1 tablet by mouth once daily. - QUEtiapine (SEROQUEL) 100 mg tablet Take 1 tablet by mouth daily at bedtime. - levothyroxine (SYNTHROID) 25 mcg tablet Take 1 tablet by mouth DAILY (6 AM). - nitroglycerin sublingual (NITROQUICK) 0.4 mg SL tablet Dissolve 0.4 mg under the tongue every 5 minutes as needed. Meds Comments as of 01/16/2018: Patient uses pharmacy at the facility. Problem List As Of Date 08/21/2022 Noted Resolved Pain in joint, pelvic region and thigh [M25.559]10/17/2005 11/29/2013 Postlaminectomy syndrome, lumbar region [M96.1] 09/03/2009 11/29/2013 Pain in Joint, Lower Leg, right knee [M25.569] 09/03/2009 11/29/2013 Suicidal ideation [R45.851] 11/08/2011 11/29/2013 Depression [F32.A] 11/08/2011 11/29/2013 HTN (hypertension) [I10] 11/08/2011 11/29/2013 Hypothyroidism [E03.9] 11/08/2011 11/29/2013 CAD (coronary artery disease) [I25.10] 11/08/2011 Chest pain at rest [R07.9] 07/20/2012 11/29/2013 Back pain [M54.9] 07/20/2012 Recurrent major depression (HCC) [F33.9] 06/25/2013 11/29/2013 Drug overdose [T50.901A] 07/09/2013 11/29/2013 MDD (major depressive disorder), recurrent eryn*07/30/2013 11/29/2013 Chest pain [R07.9] 08/08/2014 01/12/2019 HTN (hypertension) [I10] 08/08/2014 Hypothyroid [E03.9] 08/08/2014 Chronic pain [G89.29] 08/08/2014 Opiate dependence, continuous (HCC) [F11.20] 08/08/2014 Factitious disorder [F68.10] 12/07/2015 Mixed hyperlipidemia [E78.2] 07/13/2016 Paresthesia of left arm and leg [R20.2] 09/01/2016 Fracture, Colles, right, closed [S52.531A] 07/11/2017 Obesity, Class III, BMI >= 40 (morbid obesity) *07/12/2017 Left arm numbness [R20.0] 01/29/2018 Sciatica [M54.30] 06/07/2018 Inability to ambulate due to multiple joints [R*06/09/2018 Inability to ambulate due to hip [R26.2] 12/03/2018 Weakness [R53.1] 02/17/2019 Congestive heart failure (HCC) [I50.9] 03/19/2019 Chest pain [R07.9] 03/19/2019 03/19/2019 TIA (transient ischemic attack) [G45.9] 05/09/2019 Conversion disorder [F44.9] 05/10/2019 COVID-19 [U07.1] 12/10/2019 DERREK (acute kidney injury) (HCC) [N17.9] 12/11/2019 12/13/2019 Cellulitis [L03.90] 12/11/2019 CAP (community acquired pneumonia) [J18.9] 12/11/2019 12/14/2019 Chest pain [R07.9] 12/11/2021 Acute renal failure (ARF) (HCC) [N17.9] 12/15/2021 Encounter Status:Closed by LG CHINCHILLA on 08/21/22 [facility]ricel 08-02-2022 CNPN Telephone ([facility]) NATALIE GERBER ([id number]) 1960 M Date Time Provider Department 08/02/22 [facility] During your visit today, we recorded the following information about you: Lg Chinchilla 08/02/2022 2:11 PM Signed Called patient to schedule an appointment for a left shoulder referral. Scheduled patient for 08/23. Allergies As of Date: 08/02/2022 Noted Allergy Reaction FISH DERIVED 08/31/2016 4 - Kadiees NUBAIN (NALBUPHINE HCL) 12/09/2005 14 - Other: See Comments Comments: "Feels like hes climbing acosta" per pt TORADOL (KETOROLAC TROMETHAMINE) 06/08/2009 4 - Shakila Comments: Pt states that he tolerates aspirin Date Reviewed: 12/29/2021 Reviewed by: Charbel Medrano, RN - Fully Assessed Reason for Visit: Appointment [186] Cmt: Schedule appointment for Lt shoulder referral Prescriptions as of 08/02/2022 - carvedilol (COREG) 12.5 mg tablet Take 1 tablet by mouth twice daily with meals for 20 days. - dextroamphetamine-amphetamin e (ADDERALL) 20 mg tablet Take 1 tablet by mouth twice daily for 5 days. - warfarin (COUMADIN) 5 mg tablet Take 1 tablet by mouth daily as directed. - metFORMIN (GLUCOPHAGE) 1,000 mg tablet Take 1 tablet by mouth twice daily with meals for 20 days. - senna-docusate (SENNA-S) 8.6-50 mg per tablet Take 1 tablet by mouth twice daily. - furosemide (LASIX) 20 mg tablet Take 1 tablet by mouth once daily. - clopidogrel (PLAVIX) 75 mg tablet Take 1 tablet by mouth once daily. - aspirin 81 mg chewable tablet Take 1 tablet by mouth once daily. - pantoprazole DR (PROTONIX) 40 mg tablet Take 1 tablet by mouth DAILY (6 AM). - acetaminophen (TYLENOL) 325 mg tablet Take 650 mg by mouth every 6 hours as needed for Pain or Fever. - bisacodyl (DULCOLAX) 10 mg supp 10 mg by RECTAL route once daily as needed for Constipation. - magnesium hydroxide (FROST MILK OF MAGNESIA) 400 mg/5 mL suspension Take by mouth once daily as needed for Constipation. - mineral oil (FLEET MINERAL OIL ENEMA) enema 133 mL by RECTAL route once daily as needed for Constipation. - atorvastatin (LIPITOR) 20 mg tablet Take 1 tablet by mouth once daily. - citalopram (CELEXA) 20 mg tablet Take 1 tablet by mouth once daily. - isosorbide mononitrate ER (IMDUR) 30 mg 24 hr tablet Take 1 tablet by mouth once daily. - QUEtiapine (SEROQUEL) 100 mg tablet Take 1 tablet by mouth daily at bedtime. - levothyroxine (SYNTHROID) 25 mcg tablet Take 1 tablet by mouth DAILY (6 AM). - nitroglycerin sublingual (NITROQUICK) 0.4 mg SL tablet Dissolve 0.4 mg under the tongue every 5 minutes as needed. Meds Comments as of 01/16/2018: Patient uses pharmacy at the facility. Problem List As Of Date 08/02/2022 Noted Resolved Pain in joint, pelvic region and thigh [M25.559]10/17/2005 11/29/2013 Postlaminectomy syndrome, lumbar region [M96.1] 09/03/2009 11/29/2013 Pain in Joint, Lower Leg, right knee [M25.569] 09/03/2009 11/29/2013 Suicidal ideation [R45.851] 11/08/2011 11/29/2013 Depression [F32.A] 11/08/2011 11/29/2013 HTN (hypertension) [I10] 11/08/2011 11/29/2013 Hypothyroidism [E03.9] 11/08/2011 11/29/2013 CAD (coronary artery disease) [I25.10] 11/08/2011 Chest pain at rest [R07.9] 07/20/2012 11/29/2013 Back pain [M54.9] 07/20/2012 Recurrent major depression (HCC) [F33.9] 06/25/2013 11/29/2013 Drug overdose [T50.901A] 07/09/2013 11/29/2013 MDD (major depressive disorder), recurrent eryn*07/30/2013 11/29/2013 Chest pain [R07.9] 08/08/2014 01/12/2019 HTN (hypertension) [I10] 08/08/2014 Hypothyroid [E03.9] 08/08/2014 Chronic pain [G89.29] 08/08/2014 Opiate dependence, continuous (HCC) [F11.20] 08/08/2014 Factitious disorder [F68.10] 12/07/2015 Mixed hyperlipidemia [E78.2] 07/13/2016 Paresthesia of left arm and leg [R20.2] 09/01/2016 Fracture, Colles, right, closed [S52.851A] 07/11/2017 Obesity, Class III, BMI >= 40 (morbid obesity) *07/12/2017 Left arm numbness [R20.0] 01/29/2018 Sciatica [M54.30] 06/07/2018 Inability to ambulate due to multiple joints [R*06/09/2018 Inability to ambulate due to hip [R26.2] 12/03/2018 Weakness [R53.1] 02/17/2019 Congestive heart failure (HCC) [I50.9] 03/19/2019 Chest pain [R07.9] 03/19/2019 03/19/2019 TIA (transient ischemic attack) [G45.9] 05/09/2019 Conversion disorder [F44.9] 05/10/2019 COVID-19 [U07.1] 12/10/2019 DERREK (acute kidney injury) (HCC) [N17.9] 12/11/2019 12/13/2019 Cellulitis [L03.90] 12/11/2019 CAP (community acquired pneumonia) [J18.9] 12/11/2019 12/14/2019 Chest pain [R07.9] 12/11/2021 Acute renal failure (ARF) (HCC) [N17.9] 12/15/2021 Encounter Status:Closed by LG CHINCHILLA on 08/02/22 [facility] Laboratory - Microbiology an d Antimicrobial susceptibilityon 12-29-2021 SARS-CoV-2 (COVID-19) RNA TESSA+probe Ql (Unsp spec) [facility] Work Phone: EKG 12 [place] 01-29-2020 Kenny, [facility] Incoming Cardiology Results From [facility] - 01/29/2020 11:54 AM EDT [facility] Test Date: 2020-01-28 Pat Name: Natalie Gerber Department: 1ACDU Room: Gender: M Director Epidemiology: AT : 1960 Requested By: DANIELLE SANDERSON Order Number: [id number] Reading MD: Dc Cohen Measurements Intervals [place] Rate: 84 P: 37 ND: 137 QRS: 39 QRSD: 88 T: 89 QT: 383 QTc: 453 Interpretive Statements Sinus rhythm Borderline T wave abnormalities Electronically Signed On 01-29-2020 11:53:34 EDT by Dc Cohen [facility] Test Date: 2020-01-28 Pat Name: Natalie Gerber Department: 1ACDU Room: Gender: M Director Epidemiology: AT : 1960 Requested By: DANIELLE SANDERSON Order Number: [id number] Reading MD: Dc Reid Intervals [place] Rate: 84 P: 37 ND: 137 QRS: 39 QRSD: 88 T: 89 QT: 383 QTc: 453 Interpretive Statements Sinus rhythm Borderline T wave abnormalities Electronically Signed On 01-29-2020 11:53:34 EDT by Dc Cohen [place] CBC Auto Differentialon 01-01 Absolute Baso # 0.1 10*3/uL 0 - 0.2 10*3/uL [place] Absolute Neut # 7.4 10*3/uL High 1.8 - 7 10*3/uL [place] Basophils/100 WBC (Bld) 0.6 % 0 - 2 % [place] Eosinophils (Bld) [#/Vol] 0.1 10*3/uL 0 - 0.5 10*3/uL [place] Eosinophils/100 WBC (Bld) 1.5 % 1 - 6 % [place] Erythrocyte distribution width (RBC) [Ratio] 15.8 % High 11.5 - 14.5 % [place] Granulocytes/100 WBC (Bld) 75.8 % 40 - 80 % [place] Hematocrit (Bld) [Volume fraction] 33.5 % Low 40 - 52 % [place] Hemoglobin (Bld) [Mass/Vol] 10.9 g/dL Low 13 - 18 g/dL [place] Interpretation and review of laboratory results Abnormal [place] Lymphocytes (Bld) [#/Vol] 1.7 10*3/uL 1 - 4.3 10*3/uL [place] Lymphocytes/100 WBC (Bld) 17.7 % Low 20 - 40 % [place] MCH (RBC) [Entitic mass] 27.6 pg 26 - 34 pg [place] MCHC (RBC) [Mass/Vol] 32.6 % 32 - 36 % [place] MCV (RBC) [Entitic vol] 84.8 fL 80 - 98 fL [place] Monocytes (Bld) [#/Vol] 0.4 10*3/uL 0 - 0.8 10*3/uL [place] Monocytes/100 WBC (Bld) 4.4 % 2 - 10 % [place] Platelet mean volume (Bld) [Entitic vol] 7.6 fL 7.4 - 10.4 fL [place] Platelets (Bld) [#/Vol] 243 10*3/uL 140 - 440 10*3/uL [place] RBC (Bld) [#/Vol] 3.94 10*6/uL Low 4.4 - 5.9 10*6/uL [place] WBC (Bld) [#/Vol] 9.7 10*3/uL 3.6 - 10.7 10*3/uL [place] Test Performed by [facility], [address] [place] [id number] [place] Comp Metabolic Panelon 01-27 ALP [Catalytic activity/Vol] 154 U/L High 38-126 [facility] Comment on above: Performed By: #### H EMOG, DDI2, BMP3, LIPA4, TROPN, BNP3 #### [address] [place], [place] ALT [Catalytic activity/Vol] 11 U/L Normal 0-49 [facility] Comment on above: Result Comment: The ALT test is performed by an updated assay method. Please note that the reference intervals have been changed and are now sex specific. Performed By: #### H EMOG, DDI2, BMP3, LIPA4, TROPN, BNP3 #### [address] [place], [place] Anion gap [Moles/Vol] 9 Normal [facility] Comment on above: Performed By: #### H EMOG, DDI2, BMP3, LIPA4, TROPN, BNP3 #### [address] [place], [place] AST [Catalytic activity/Vol] 25 U/L Normal 15-46 [facility] Comment on above: Performed By: #### H EMOG, DDI2, BMP3, LIPA4, TROPN, BNP3 #### [address] [place], [place] Bilirubin [Mass/Vol] 0.4 mg/dL Normal 0.2-1.3 [facility] Comment on above: Performed By: #### H EMOG, DDI2, BMP3, LIPA4, TROPN, BNP3 #### [address] [place], [place] Calcium [Mass/Vol] 8.9 mg/dL Normal 8.4-10.4 [facility] Comment on above: Performed By: #### H EMOG, DDI2, BMP3, LIPA4, TROPN, BNP3 #### [address] [place], [place] CO2 [Moles/Vol] 26 mmol/L Normal 22-30 [facility] Comment on above: Performed By: #### H EMOG, DDI2, BMP3, LIPA4, TROPN, BNP3 #### [address] [place], [place] Creatinine [Mass/Vol] 0.62 mg/dL Normal 0.52-1.25 [facility] Comment on above: Performed By: #### H EMOG, DDI2, BMP3, LIPA4, TROPN, BNP3 #### [facility] [address] [place] [address] GFR/1.73 sq M predicted among blacks MDRD (S/P/Bld) [Vol rate/Area] mL/min/{1.73_m2} Normal >60 [facility] Comment on above: Performed By: #### H EMOG, DDI2, BMP3, LIPA4, TROPN, BNP3 #### [facility] [address] [place] [address] GFR/1.73 sq M predicted among non-blacks MDRD (S/P/Bld) [Vol rate/Area] mL/min/{1.73_m2} Normal >60 [facility] Comment on above: Result Comment: KDIG O guidelines provide the following GFR categories: Stage GFR(ml/min/1.73 m2) Terms G1 >=90 Normal or high G2 60-89 Mildly decreased* G3a 45-59 Mildly to moderately decreased G3b 30-44 Moderately to severely decreased G4 15-29 Severely decreased G5 <15 Kidney failure *Relative to young adult level. In the absence of evidence of kidney damage, neither GFR category G1 nor G2 fulfill the criteria for CKD. The CKD-EPI equation is validated in individuals 18 years of age and older. Currently the best equation for estimating glomerular filtration rate (GFR) from serum creatinine in children is the Bedside Mack equation. It is less accurate in patients with extremes of muscle mass, restriction of dietary protein, ingestion of creatine, extra-renal metabolism of creatinine, or treatment with medications that affect renal tubular creatinine secretion. Performed By: #### H EMOG, DDI2, BMP3, LIPA4, TROPN, BNP3 #### [facility] [address] [place] [address] Glucose [Mass/Vol] 127 mg/dL High 70-100 [facility] Comment on above: Performed By: #### H EMOG, DDI2, BMP3, LIPA4, TROPN, BNP3 #### [facility] [address] [place] [address] Protein [Mass/Vol] 7.4 g/dL Normal 6.3-8.2 [facility] Comment on above: Performed By: #### H EMOG, DDI2, BMP3, LIPA4, TROPN, BNP3 #### [address] [place], [place] Urea nitrogen [Mass/Vol] 14 mg/dL Normal 7-20 [facility] Comment on above: Performed By: #### H EMOG, DDI2, BMP3, LIPA4, TROPN, BNP3 #### [address] [place], [place] Potassium [Moles/Vol] 3.8 mmol/L Normal 3.5-5.1 [facility] Comment on above: Performed By: #### H EMOG, DDI2, BMP3, LIPA4, TROPN, BNP3 #### [address] [place], [place] Albumin [Mass/Vol] 3.9 g/dL Normal 3.5-5.0 [facility] Comment on above: Performed By: #### H EMOG, DDI2, BMP3, LIPA4, TROPN, BNP3 #### [address] [place], [place] Chloride [Moles/Vol] 102 mmol/L Normal 98-107 [facility] Comment on above: Performed By: #### H EMOG, DDI2, BMP3, LIPA4, TROPN, BNP3 #### [address] [place], [place] Sodium [Moles/Vol] 136 mmol/L Normal 135-145 [facility] Comment on above: Performed By: #### H EMOG, DDI2, BMP3, LIPA4, TROPN, BNP3 #### [address] [place], [place] Comprehensive Metabolic Pane [place] 01-28-2020 Albumin [Mass/Vol] 3.9 g/dL 3.5 - 5 g/dL [place] ALP [Catalytic activity/Vol] 154 U/L High 38 - 126 U/L [place] ALT [Catalytic activity/Vol] 11 U/L 0 - 49 U/L [place] Comment on above: The ALT test is perf ormed by an updated assay method. Please note that the reference intervals have been changed and are now sex specific. Anion gap [Moles/Vol] 9 mmol/L [place] AST [Catalytic activity/Vol] 25 U/L 15 - 46 U/L [place] Bilirubin Ql (U) 0.4 mg/dL 0.2 - 1.3 mg/dL [place] Calcium [Mass/Vol] 8.9 mg/dL 8.4 - 10. 4 mg/dL [place] Chloride [Moles/Vol] 102 mmol/L 98 - 10 7 mmol/L [place] CO2 [Moles/Vol] 26 mmol/L 22 - 30 mmol/L [place] Creatinine [Mass/Vol] 0.62 mg/dL 0.52 - 1.25 mg/dL [place] EGFR IF NonAfrican [place] >90.0 >60 mL/min [place] Comment on above: KDIGO guidelines pro vide the following GFR categories: Stage GFR(ml/min/1.73 m2) Terms G1 >=90 Normal or high G2 60-89 Mildly decreased* G3a 45-59 Mildly to moderately decreased G3b 30-44 Moderately to severely decreased G4 15-29 Severely decreased G5 <15 Kidney failure *Relative to young adult level. In the absence of evidence of kidney damage, neither GFR category G1 nor G2 fulfill the criteria for CKD. The CKD-EPI equation is validated in individuals 18 years of age and older. Currently the best equation for estimating glomerular filtration rate (GFR) from serum creatinine in children is the Bedside Mack equation. It is less accurate in patients with extremes of muscle mass, restriction of dietary protein, ingestion of creatine, extra-renal metabolism of creatinine, or treatment with medications that affect renal tubular creatinine secretion. GFR/1.73 sq M predicted among blacks MDRD (S/P/Bld) [Vol rate/Area] mL/min/{1.73_m2} >60 mL/min [place] Glucose [Mass/Vol] 127 mg/dL High 70 - 100 mg/dL [place] Interpretation and review of laboratory results Abnormal [place] Potassium [Moles/Vol] 3.8 mmol/L 3.5 - 5.1 mmol/L [place] Protein [Mass/Vol] 7.4 g/dL 6.3 - 8.2 g/dL [place] Sodium [Moles/Vol] 136 mmol/L 135 - 145 mmol/L [place] Urea nitrogen [Mass/Vol] 14 mg/dL 7 - 20 mg/dL [place] Test Performed by [id number] [place] [address] Hemogram w/ Autodiffon 01-27 Abs Baso Cnt 0.1 10*3/uL Normal 0.0-0.2 [facility] Comment on above: Performed By: #### H EMOG, DDI2, BMP3, LIPA4, TROPN, BNP3 #### [address] Abs Neutrophile Cnt 7.4 10*3/uL High 1.8-7.0 [facility] Comment on above: Performed By: #### H EMOG, DDI2, BMP3, LIPA4, TROPN, BNP3 #### [address] Basophils/100 WBC (Bld) 0.6 % Normal 0.0-2.0 [facility] Comment on above: Performed By: #### H EMOG, DDI2, BMP3, LIPA4, TROPN, BNP3 #### [address] Eosinophils (Bld) [#/Vol] 0.1 10*3/uL Normal 0.0-0.5 [facility] Comment on above: Performed By: #### H EMOG, DDI2, BMP3, LIPA4, TROPN, BNP3 #### [address] Eosinophils/100 WBC (Bld) 1.5 % Normal 1.0-6.0 [facility] Comment on above: Performed By: #### H EMOG, DDI2, BMP3, LIPA4, TROPN, BNP3 #### [address] [place], [place] Erythrocyte distribution width (RBC) [Ratio] 15.8 % High 11.5-14.5 [facility] Comment on above: Performed By: #### H EMOG, DDI2, BMP3, LIPA4, TROPN, BNP3 #### [address] [address] [place], [place] Granulocytes/100 WBC (Bld) 75.8 % Normal 40.0-80.0 [facility] Comment on above: Performed By: #### H EMOG, DDI2, BMP3, LIPA4, TROPN, BNP3 #### [address] [address] [place], [place] Hematocrit (Bld) [Volume fraction] 33.5 % Low 40.0-52.0 [facility] Comment on above: Performed By: #### H EMOG, DDI2, BMP3, LIPA4, TROPN, BNP3 #### [address] [place] Hemoglobin (Bld) [Mass/Vol] 10.9 g/dL Low 13.0-18.0 [facility] Comment on above: Performed By: #### H EMOG, DDI2, BMP3, LIPA4, TROPN, BNP3 #### [address] [place], [place] Lymphocytes (Bld) [#/Vol] 1.7 10*3/uL Normal 1.0-4.3 [facility] Comment on above: Performed By: #### H EMOG, DDI2, BMP3, LIPA4, TROPN, BNP3 #### [address] Lymphocytes/100 WBC (Bld) 17.7 % Low 20.0-40.0 [facility] Comment on above: Performed By: #### H EMOG, DDI2, BMP3, LIPA4, TROPN, BNP3 #### [address] MCH (RBC) [Entitic mass] 27.6 pg Normal 26.0-34.0 [facility] Comment on above: Performed By: #### H EMOG, DDI2, BMP3, LIPA4, TROPN, BNP3 #### [address] MCHC (RBC) [Mass/Vol] 32.6 % Normal 32.0-36.0 [facility] Comment on above: Performed By: #### H EMOG, DDI2, BMP3, LIPA4, TROPN, BNP3 #### [address] MCV (RBC) [Entitic vol] 84.8 fL Normal 80.0-98.0 [facility] Comment on above: Performed By: #### H EMOG, DDI2, BMP3, LIPA4, TROPN, BNP3 #### [address] Monocytes (Bld) [#/Vol] 0.4 10*3/uL Normal 0.0-0.8 [facility] Comment on above: Performed By: #### H EMOG, DDI2, BMP3, LIPA4, TROPN, BNP3 #### [address] Monocytes/100 WBC (Bld) 4.4 % Normal 2.0-10.0 [facility] Comment on above: Performed By: #### H EMOG, DDI2, BMP3, LIPA4, TROPN, BNP3 #### [address] Platelet mean volume (Bld) [Entitic vol] 7.6 fL Normal 7.4-10.4 [facility] Comment on above: Performed By: #### H EMOG, DDI2, BMP3, LIPA4, TROPN, BNP3 #### [address] Platelets (Bld) [#/Vol] 243 10*3/uL Normal 140-440 [facility] Comment on above: Performed By: #### H EMOG, DDI2, BMP3, LIPA4, TROPN, BNP3 #### [facility] [address] [place], [place] RBC (Bld) [#/Vol] 3.94 10*6/uL Low 4.40-5.90 [facility] Comment on above: Performed By: #### H EMOG, DDI2, BMP3, LIPA4, TROPN, BNP3 #### [address] [place], [place] WBC (Bld) [#/Vol] 9.7 10*3/uL Normal 3.6-10.7 [facility] Comment on above: Performed By: #### H EMOG, DDI2, BMP3, LIPA4, TROPN, BNP3 #### [address] [place], [place] COVID-19on 01-27-2020 SARS-CoV-2 Not Detected Expected Result: Not Detected _ Real-time, RT-PCR performed on the AG&P System by the [facility] Micro[facility] Service. Negative results do not preclude SARS-CoV-2 infection and should not be used as the sole basis for treatment or other patient management decisions. This assay was developed by [employer] and distributed under an Emergency Use Authorization (EUA) granted by the FDA for the qualitative detection of SARS-CoV-2 nucleic acid. Results were determined from a pool consisting of specimens from additional patients. This test was modified, and its performance characteristics, showing minimal loss of sensitivity, have been validated by the [facility]biology Service. Approval is pending review by the U. S. Food and Drug Administration. If symptoms are severe and persist, testing a new specimen may be warranted. Additionally, IgG testing may be considered for patients more than 7-10 days post onset of symptoms. [employer] Test Performed by [facility], [facility] [place] [address] Specimen Source Comment:Nasopharyngeal Swab [facility] LEIGH ANN CTA Chest W WO (PE study)on 01-27-2020 Patient Name: NATALIE GERBER ---CT--- Exam Date/Time 01/27/2020 00:08:34 EDT Exam CTA Chest w/ + w/o Contrast Ordering Physician DAVID ZULETA Accession Number [id number] CPT4 Codes 29743 (), Q9967 (CT ISOVUE 370MG/[id number]) Reason For Exam chest pain, SOB, hx of PE Report Clinical indication: Prior history of pulmonary embolism. Chest pain and shortness of breath. Atrial fibrillation. COMPARISON: 01/13/2019, 10/03/2016 and 08/16/2014 Contrast: 75 mL Isovue-370 intravenously Radiation dose: DLP [address] was performed with rapid bolus intravenous administration of contrast material. Axial and coronal reformatted images were evaluated. I performed 3-D reconstruction at the workstation. Pulmonary arterial opacification density is less than ideal but is similar to the most recent previous exam. There are no focal filling defects noted within the central opacified pulmonary arterial system. Evaluation of the more peripheral branches is limited by the suboptimal pulmonary arterial density. No pathologically enlarged mediastinal or hilar lymph nodes are identified. No mediastinal masses are identified. Aorta is normal in size and the lumen enhances uniformly. Heart is not enlarged. There is no pericardial effusion. The lungs contain no focal pulmonary infiltrates. No pleural effusions are present. No focal masses are identified within the visualized portions of the liver and spleen and the visualized portions of the adrenal glands appear normal in size. Multilevel bridging endplate osteophytes are noted in the spine. Impression: No CT evidence of pulmonary embolism. Report Dictated on --- Final --- Dictated: 01/27/2020 0:51 am Dictating Physician: MD GLASS DIANE Signed Date and Time: 01/27/2020 0:59 am Signed by: MD GLASS DIANE Transcribed Date and Time: 01/27/2020 0:51 [place] [facility], [facility] In[facility] Results From [facility] - 01/27/2020 1:00 AM EDT Patient Name: NATALIE GERBER ---CT--- Exam Date/Time 01/27/2020 00:08:34 EDT Exam CTA Chest w/ + w/o Contrast Ordering Physician DAVID ZULETA Accession Number [id number] CPT4 Codes 03506 (), Q9967 (CT ISOVUE 370MG/[id number]) Reason For Exam chest pain, SOB, hx of PE Report Clinical indication: Prior history of pulmonary embolism. Chest pain and shortness of breath. Atrial fibrillation. COMPARISON: 01/13/2019, 10/03/2016 and 08/16/2014 Contrast: 75 mL Isovue-370 intravenously Radiation dose: DLP [address] was performed with rapid bolus intravenous administration of contrast material. Axial and coronal reformatted images were evaluated. I performed 3-D reconstruction at the workstation. Pulmonary arterial opacification density is less than ideal but is similar to the most recent previous exam. There are no focal filling defects noted within the central opacified pulmonary arterial system. Evaluation of the more peripheral branches is limited by the suboptimal pulmonary arterial density. No pathologically enlarged mediastinal or hilar lymph nodes are identified. No mediastinal masses are identified. Aorta is normal in size and the lumen enhances uniformly. Heart is not enlarged. There is no pericardial effusion. The lungs contain no focal pulmonary infiltrates. No pleural effusions are present. No focal masses are identified within the visualized portions of the liver and spleen and the visualized portions of the adrenal glands appear normal in size. Multilevel bridging endplate osteophytes are noted in the spine. Impression: No CT evidence of pulmonary embolism. Report Dictated on --- Final --- Dictated: 01/27/2020 0:51 am Dictating Physician: MD GLASS DIANE Signed Date and Time: 01/27/2020 0:59 am Signed by: MD GLASS DIANE Transcribed Date and Time: 01/27/2020 0:51 [place] CTA Chest w/ + w/o Contrasto n 01-27-2020 CTA Chest w/ + w/o Contrast Patient Name: NATALIE GERBER [facility]: [id number] CT Exam Date/Time 01/27/2020 00:08:34 EDT Exam CTA Chest w/ + w/o Contrast Ordering Physician DAVID ZULETA Accession Number [id number] CPT4 Codes 75129 (), Q9967 (CT ISOVUE [id number]) Reason For Exam chest pain, SOB, hx of PE Report Clinical indication: Prior history of pulmonary embolism. Chest pain and shortness of breath. Atrial fibrillation. COMPARISON: 01/13/2019, 10/03/2016 and 08/16/2014 Contrast: 75 mL Isovue-370 intravenously Radiation dose: DLP [address] was performed with rapid bolus intravenous administration of contrast material. Axial and coronal reformatted images were evaluated. I performed 3-D reconstruction at the workstation. Pulmonary arterial opacification density is less than ideal but is similar to the most recent previous exam. There are no focal filling defects noted within the central opacified pulmonary arterial system. Evaluation of the more peripheral branches is limited by the suboptimal pulmonary arterial density. No pathologically enlarged mediastinal or hilar lymph nodes are identified. No mediastinal masses are identified. Aorta is normal in size and the lumen enhances uniformly. Heart is not enlarged. There is no pericardial effusion. The lungs contain no focal pulmonary infiltrates. No pleural effusions are present. No focal masses are identified within the visualized portions of the liver and spleen and the visualized portions of the adrenal glands appear normal in size. Multilevel bridging endplate osteophytes are noted in the spine. Impression: No CT evidence of pulmonary embolism. Report Dictated on Final Dictated: 01/27/2020 0:51 am Dictating Physician: MD GLASS DIANE Signed Date and Time: 01/27/2020 0:59 am Signed by: MD GLASS DIANE Transcribed Date and Time: 01/27/2020 0:51 Normal [facility] EKG 12 Lead - Chest Painon 0 01-27-2020 [facility] Test Date: 2020-01-26 Pat Name: Natalie Gerber Department: [facility] [place]: [facility] Gender: M Director Epidemiology: NIKOLAS : 1960 Requested By: DAVID ZULETA Order Number: [id number] Reading MD: Phan Quijano Measurements Intervals [place] Rate: 90 P: 30 ND: 149 QRS: 23 QRSD: 85 T: 80 QT: 366 QTc: 448 Interpretive Statements Sinus rhythm Multiple premature complexes, vent & supraven Abnormal R-wave progression, early transition Nonspecific T abnormalities, lateral leads Electronically Signed On 01-27-2020 10:23:06 EDT by [facility] From [facility] - 01/27/2020 10:24 AM EDT [facility] Test Date: 2020-01-26 Pat Name: Natalie Gerber Department: [facility] [place]: [facility] Gender: M Director Epidemiology: NIKOLAS : 1960 Requested By: DAVID ZULETA Order Number: [id number] Reading MD: Phan Quijano Measurements Intervals [place] Rate: 90 P: 30 ND: 149 QRS: 23 QRSD: 85 T: 80 QT: 366 QTc: 448 Interpretive Statements Sinus rhythm Multiple premature complexes, vent & supraven Abnormal R-wave progression, early transition Nonspecific T abnormalities, lateral leads Electronically Signed On 01-27-2020 10:23:06 EDT by Phan Quijano [facility] [id number] 01-27-2020 SARS-CoV-2 SARS-CoV-2 --> Statu s: F Not Detected Expected Result: Not Detected _ Real-time, RT-PCR performed on the AG&P System by the [facility] Microbiology Service. Negative results do not preclude SARS-CoV-2 infection and should not be used as the sole basis for treatment or other patient management decisions. This assay was developed by [employer] and distributed under an Emergency Use Authorization (EUA) granted by the FDA for the qualitative detection of SARS-CoV-2 nucleic acid. Results were determined from a pool consisting of specimens from additional patients. This test was modified, and its performance characteristics, showing minimal loss of sensitivity, have been validated by the [facility] Microbiology Service. Approval is pending review by the U. S. Food and Drug Administration. If symptoms are severe and persist, testing a new specimen may be warranted. Additionally, IgG testing may be considered for patients more than 7-10 days post onset of symptoms. Expected Result: Not Detected _ Real-time, RT-PCR performed on the AG&P System by the [facility] Microbiology Service. Negative results do not preclude SARS-CoV-2 infection and should not be used as the sole basis for treatment or other patient management decisions. This assay was developed by [employer] and distributed under an Emergency Use Authorization (EUA) granted by the FDA for the qualitative detection of SARS-CoV-2 nucleic acid. Results were determined from a pool consisting of specimens from additional patients. This test was modified, and its performance characteristics, showing minimal loss of sensitivity, have been validated by the [facility] Microbiology Service. Approval is pending review by the U. S. Food and Drug Administration. If symptoms are severe and persist, testing a new specimen may be warranted. Additionally, IgG testing may be considered for patients more than 7-10 days post onset of symptoms. Normal [facility] Comment on above: Order Comment: Speci men Source Comment:Nasopharyngeal Swab Performed By: #### H EMOG, DDI2, BMP3, LIPA4, TROPN, BNP3 #### [address] [place], [place] Troponinon 01-27-2020 Troponin I.cardiac [Mass/Vol] ng/mL 0 - 0.034 ng/mL [place], [place] Comment on above: . Test Performed by [facility], [address] [place] [address] Troponin I.cardiac [Mass/Vol] ng/mL 0 - 0.034 ng/mL [place], [place] Comment on above: . Test Performed by [id number] [place] [address] Troponin Ion 01-27-2020 Troponin I.cardiac [Mass/Vol] ng/mL Normal 0.000-0.03 4 [facility] Comment on above: Result Comment: . Performed By: #### H EMOG, DDI2, BMP3, LIPA4, TROPN, BNP3 #### [address] [place], [place] Basic Metabolic Panelon - Urea nitrogen [Mass/Vol] 11 mg/dL Normal 7-20 [facility] Comment on above: Performed By: #### H EMOG, DDI2, BMP3, LIPA4, TROPN, BNP3 #### [address] [address] [place], [place] Anion gap [Moles/Vol] 9 Normal [facility] Comment on above: Performed By: #### H EMOG, DDI2, BMP3, LIPA4, TROPN, BNP3 #### [address] [place], [place] Calcium [Mass/Vol] 9.0 mg/dL Normal 8.4-10.4 [facility] Comment on above: Performed By: #### H EMOG, DDI2, BMP3, LIPA4, TROPN, BNP3 #### [address] [place], [place] CO2 [Moles/Vol] 27 mmol/L Normal 22-30 [facility] Comment on above: Performed By: #### H EMOG, DDI2, BMP3, LIPA4, TROPN, BNP3 #### [address] [address] [place], [place] Glucose [Mass/Vol] 112 mg/dL High 70-100 [facility] Comment on above: Performed By: #### H EMOG, DDI2, BMP3, LIPA4, TROPN, BNP3 #### [address] [place], [place] Creatinine [Mass/Vol] 0.60 mg/dL Normal 0.52-1.25 [facility] Comment on above: Performed By: #### H EMOG, DDI2, BMP3, LIPA4, TROPN, BNP3 #### [address] [place], [place] GFR/1.73 sq M predicted among blacks MDRD (S/P/Bld) [Vol rate/Area] mL/min/{1.73_m2} Normal >60 [facility] Comment on above: Performed By: #### H EMOG, DDI2, BMP3, LIPA4, TROPN, BNP3 #### [address] [address] [place], [place] GFR/1.73 sq M predicted among non-blacks MDRD (S/P/Bld) [Vol rate/Area] mL/min/{1.73_m2} Normal >60 [facility] Comment on above: Result Comment: KDIG O guidelines provide the following GFR categories: Stage GFR(ml/min/1.73 m2) Terms G1 >=90 Normal or high G2 60-89 Mildly decreased* G3a 45-59 Mildly to moderately decreased G3b 30-44 Moderately to severely decreased G4 15-29 Severely decreased G5 <15 Kidney failure *Relative to young adult level. In the absence of evidence of kidney damage, neither GFR category G1 nor G2 fulfill the criteria for CKD. The CKD-EPI equation is validated in individuals 18 years of age and older. Currently the best equation for estimating glomerular filtration rate (GFR) from serum creatinine in children is the Bedside Mack equation. It is less accurate in patients with extremes of muscle mass, restriction of dietary protein, ingestion of creatine, extra-renal metabolism of creatinine, or treatment with medications that affect renal tubular creatinine secretion. Performed By: #### H EMOG, DDI2, BMP3, LIPA4, TROPN, BNP3 #### [address] Chloride [Moles/Vol] 102 mmol/L Normal 98-107 [facility] Comment on above: Performed By: #### H EMOG, DDI2, BMP3, LIPA4, TROPN, BNP3 #### [address] [address] [place], [place] Potassium [Moles/Vol] 3.7 mmol/L Normal 3.5-5.1 [facility] Comment on above: Performed By: #### H EMOG, DDI2, BMP3, LIPA4, TROPN, BNP3 #### [address] Sodium [Moles/Vol] 138 mmol/L Normal 135-145 [facility] Comment on above: Performed By: #### H EMOG, DDI2, BMP3, LIPA4, TROPN, BNP3 #### [address] Anion gap [Moles/Vol] 9 mmol/L [facility], [place] Calcium [Mass/Vol] 9.0 mg/dL 8.4 - 10. 4 mg/dL [facility], [place] Chloride [Moles/Vol] 102 mmol/L 98 - 10 7 mmol/L [facility], [place] CO2 [Moles/Vol] 27 mmol/L 22 - 30 mmol/L [place], [place] Creatinine [Mass/Vol] 0.6 mg/dL 0.52 - 1.25 mg/dL [place], [place] EGFR IF NonAfrican Djib[place]ian >90.0 >60 mL/min [place], [place] Comment on above: KDIGO guidelines pro vide the following GFR categories: Stage GFR(ml/min/1.73 m2) Terms G1 >=90 Normal or high G2 60-89 Mildly decreased* G3a 45-59 Mildly to moderately decreased G3b 30-44 Moderately to severely decreased G4 15-29 Severely decreased G5 <15 Kidney failure *Relative to young adult level. In the absence of evidence of kidney damage, neither GFR category G1 nor G2 fulfill the criteria for CKD. The CKD-EPI equation is validated in individuals 18 years of age and older. Currently the best equation for estimating glomerular filtration rate (GFR) from serum creatinine in children is the Bedside Mack equation. It is less accurate in patients with extremes of muscle mass, restriction of dietary protein, ingestion of creatine, extra-renal metabolism of creatinine, or treatment with medications that affect renal tubular creatinine secretion. GFR/1.73 sq M predicted among blacks MDRD (S/P/Bld) [Vol rate/Area] mL/min/{1.73_m2} >60 mL/min [place], [place] Glucose [Mass/Vol] 112 mg/dL High 70 - 100 mg/dL [place] Potassium [Moles/Vol] 3.7 mmol/L 3.5 - 5.1 mmol/L [place] Sodium [Moles/Vol] 138 mmol/L 135 - 145 mmol/L [place] Urea nitrogen [Mass/Vol] 11 mg/dL 7 - 20 mg/dL [place] Brain Natriuretic Peptideon 01-26-2020 Natriuretic peptide B (Bld) [Mass/Vol] 160 pg/mL High 0 - 125 pg/mL [place], [place] CR Chest Portableon 01-26-20 20 CR Chest Portable Patient Name: NATALIE GERBER Diagnostic Radiology Exam Date/Time 01/26/2020 22:10:39 EDT Exam CR Chest Portable Ordering Physician DAVID ZULETA Accession Number [id number] CPT4 Codes 62246 () Reason For Exam SOB Report CHEST X-RAY AP CLINICAL INDICATION: Shortness of breath AP radiograph of the chest was obtained. COMPARISON: 05/06/2019 FINDINGS: The cardiac silhouette is enlarged with pulmonary venous congestion. There is calcific atheromatous disease of the thoracic aorta. Hazy alveolar opacification and smooth interstitial thickening most consistent with pulmonary edema. Otherwise no focal consolidation or opacification is seen within the lungs. No pleural effusion or pneumothorax is identified. Degenerative changes of the thoracic spine are noted. IMPRESSION: Findings suggestive of pulmonary edema/fluid overload. Report Dictated on Final Dictated: 01/26/2020 9:56 pm Dictating Physician: MD HAND JASON Signed Date and Time: 01/26/2020 9:57 pm Signed by: MD HAND JASON Transcribed Date and Time: 01/26/2020 9:56 Normal [facility] D-Dimer, Innovanceon 020 D-Dimer, Innovance 0.94 mg/L High 0.00-0.50 [facility] Comment on above: Result Comment: Inno aguiar D-Dimer values of <0.50 mg/L FEU can be used in combination with a pre-test probability model (e.g. Well's) to exclude pulmonary embolism (PE) disease, as well as an aid in the diagnosis of deep vein thrombosis (DVT). Performed By: #### H EMOG, DDI2, BMP3, LIPA4, TROPN, BNP3 #### [address] [id number] D-Dimer, Quantitativeon 01-01 D-Dimer, Quant 0.94 mg/L High 0 - 0.5 mg/L [facility] Comment on above: Innovance D-Dimer va lues of <0.50 mg/L FEU can be used in combination with a pre-test probability model (e.g. Well's) to exclude pulmonary embolism (PE) disease, as well as an aid in the diagnosis of deep vein thrombosis (DVT). Interpretation and review of laboratory results Abnormal [facility] [facility] Test Performed by [facility], [address] [place] [id number] [facility], [place] ED Provider Noteon 0 ED Provider Note I independently perf ormed a history and physical on Natalie Gerber. All diagnostic, treatment, and disposition decisions were made by myself in conjunction with the advanced practice provider/resident. Brief History of Present Illness: Patient presented for evaluation of chest pain. Started in the middle of his chest. It states that is similar to his previous experience with chest pain. Usually treated with nitroglycerin by himself. Was helped a little bit but usually it causes the pain to go away but the pain persisted. The patient came to the hospital for further evaluation. EMS gave the patient aspirin 81 mg ?4. The patient denies any nausea vomiting, abdominal pain, leg pain, leg redness, leg swelling. Notes that he previous had leg swelling but it is improving. He had some shortness of breath associated with his chest pain as well. Focused Physical Examination: Triage vitals signs indicate no hypotension, tachycardia, tachypnea, hypoxia, or fever. Regular rate and rythm without murmur. Lungs clear to auscultation bilaterally without increased work of breathing. abdomen is soft. Mildly obese abdomen. Nonpitting edema lower extremities. Emergency Department Course and Medical Decision Making: Patient presents for evaluation of chest pain. The patient was treated with nitroglycerin paste, Zofran and pain medicine. Interpretation of Diagnostic Laboratory Studies and Tests: troponin negative. BNP normal. CBC anemia 11.2. BMP had normal range Na, K, Cl, CO2, Anion Gap, and Ca. Glucose hyperglycemic. Renal function normal BUN and Cr. d-dimer 0.94. Chest x-ray showed possible vascular overload. CT chest performed for d-dimer chest pain showed no acute abnormality. No pulmonary embolism. Interpretation twelve-lead EKG 2045 regular rhythm at 90 bpm. Premature ventricular complex noted.ND interval normal. QRS complex narrow. QTC normal. No ST segment elevations or depressions. Flat T waves anterior and lateral leads. Good R-wave progression through precordial leads. Interpretation of this EKG myself in the absence of a mobile ui designer is normal sinus rhythm with premature ventricular complexes with ST-T wave abnormalities concerning for possible anterior lateral ischemia. Given his complaint of chest pain the patient will be admitted to hospital for further cardiac monitoring and workup. For further details of Natalie Gerber's emergency department encounter, please see documentation by advanced practice provider/resident David Zuleta NP. Comment: Please note this report has been produced using speech recognition software and may contain errors related to that system including errors in grammar, punctuation, and spelling, as well as words and phrases that may be inappropriate. If there are any questions or concerns please feel free to contact the dictating provider for clarification. Matilda Bird MD 01/27/20 0141 [facility] ED Provider Note [facility] Patient: Natalie Gerber : 1960 Date of Evaluation: 01/26/2020 ED Provider: David Zuleta APRN - JENNIFER Chief Complaint Chief Complaint Patient presents with ? Chest Pain Patient states mid-sternal chest pain and left arm pain started around 1 hour ago, patient had taken 3 of his own nitro, patient given 324 baby aspirin in route by squad. WADE Gerber is a 59 y.o. male who presents to the emergency department for evaluation of midsternal chest pain that radiates down his left arm. Patient states this pain is constant. It started approximately 1 hour prior to arrival. States he took nitroglycerin and between each nitroglycerin had intermittent relief. After his third nitroglycerin when the pain returned there was a train starter nearby so he walked to their truck and asked them to bring him to the emergency room. He states that he was given 324 mg baby aspirin. Patient states that he has a history of myocardial infarction. States this feels similar to his previous myocardial infarctions. He describes this pain as a sharp, heavy, pressure. Denies any exertional component. Denies any other aggravating factors. Does endorse shortness of breath. Patient denies fevers, chills, cough, hemoptysis, nausea, vomiting, diarrhea, dysuria, hematuria, blood in stool. States chronically edematous lower extremities. ROS: REVIEW OF SYSTEMS GENERAL: Negative weakness, negative fatigue, te-moak malaise, negative chills, negative fever, negative night sweats, negative allergies. INTEGUMENTARY: Negative rash, negative jaundice. NEUROLOGIC: Negative headaches, negative syncope, negative seizures, negative weakness, negative tremor, negative light headed, negative dizziness. EYES: Negative visual changes, negative diplopia, negative impaired vision. EARS: Negative tinnitus, negative hearing changes, negative ear pain, negative drainage. NOSE AND THROAT: Negative postnasal drip, negative sore throat. CARDIOVASCULAR: Positive chest pain, endorse this dyspnea on exertion, negative palpitations, negative edema. RESPIRATORY:Negative wheezing, Stridor, cough, chest tightness, endorses shortness of breath. GASTROINTESTINAL: Negative nausea, negative vomiting, negative hematemesis, negative abdominal pain, negative diarrhea, negative constipation. GENITOURINARY: Negative frequency, negative urgency, negative dysuria, negative incontinence, negative difficult urination, negative hematuria. MUSCULOSKELETAL: Negative myalgia, negative joint pain, negative stiffness, negative weakness, negative back pain, negative neck pain. At least 8 systems reviewed and otherwise acutely negative except as in the OSAGE. Past History Past Medical History: Diagnosis Date ? Anemia ? Anemia ? Arthritis ? CAD (coronary artery disease) Cath 05/2013 No disease, EF 60% ? CAD (coronary artery disease) ? CHF (congestive heart failure) (HCC) ? Depression ? Diverticulitis ? Diverticulosis ? GERD (gastroesophageal reflux disease) ? History of pulmonary embolus (PE) ? Hyperlipidemia ? Hypertension ? WI, old 2005, no stent placement ? Myocardial infarct (HCC) 2005 ? myocardial infarction ? LISA on CPAP diagnosed in 09/2013 ? Pain ? Pneumonia ? Suicide (HCC) attempted in 2007- hospitalized ? Thyroid disease ? Unspecified cerebral artery occlusion with cerebral infarction Past Surgical History: Procedure Laterality Date ? BACK SURGERY ? BACK SURGERY l5,l4,l3 fusion ? CARDIAC CATHETERIZATION 2005 ? CARDIAC CATHETERIZATION 05/12/2013 ef 60 ? CHOLECYSTECTOMY ? ECHO COMPL W DOP COLOR FLOW 02/04/2012 ? HERNIA REPAIR ? HERNIA REPAIR double hernia repair ? HIP SURGERY left hip replacement ? JOINT REPLACEMENT lt hip ? KNEE ARTHROSCOPY ? ORTHOPEDIC SURGERY Social History Socioeconomic History ? Marital status: Spouse name: None ? Number of children: None ? Years of education: None ? Highest education level: None Occupational History ? None Social Needs ? Financial resource strain: None ? Food insecurity Worry: None Inability: None ? Transportation needs Medical: None Non-medical: None Tobacco Use ? Smoking status: Never Smoker ? Smokeless tobacco: Never Used Substance and Sexual Activity ? Alcohol use: No Comment: sober 17 yrs ? Drug use: No ? Sexual activity: Never Lifestyle ? Physical activity Days per week: None Minutes per session: None ? Stress: None Relationships ? Social connections Talks on phone: None Gets together: None Attends protestant service: None Active member of club or organization: None Attends meetings of clubs or organizations: None Relationship status: None ? Intimate partner violence Fear of current or ex partner: None Emotionally abused: None Physically abused: None Forced sexual activity: None Other Topics Concern ? None Social History Narrative Merged History Encounter Medications/Allergies Current Discharge Medication List CONTINUE these medications which have NOT CHANGED Details oxyCODONE (ROXICODONE) 5 MG immediate release tablet Take 5 mg by mouth every 4 hours as needed for Pain. simvastatin (ZOCOR) 40 MG tablet Take 40 mg by mouth nightly carvedilol (COREG) 25 MG tablet Take 25 mg by mouth 2 times daily (with meals) lisinopril (PRINIVIL;ZESTRIL) 20 MG tablet Take 20 mg by mouth daily furosemide (LASIX) 20 MG tablet Take 20 mg by mouth 2 times daily esomeprazole Magnesium (NEXIUM) 40 MG PACK Take 40 mg by mouth daily tamsulosin (FLOMAX) 0.4 MG capsule Take 0.4 mg by mouth nightly ibuprofen (ADVIL;MOTRIN) 400 MG tablet Take 400 mg by mouth 2 times daily QUEtiapine (SEROQUEL) 100 MG tablet Take 1 tablet by mouth nightly Qty: 60 tablet, Refills: 3 levothyroxine (SYNTHROID) 25 MCG tablet Take 25 mcg by mouth Daily citalopram (CELEXA) 20 MG tablet Take 20 mg by mouth daily clopidogrel (PLAVIX) 75 MG tablet Take 75 mg by mouth daily aspirin 81 MG tablet Take 81 mg by mouth daily. nitroGLYCERIN (NITROSTAT) 0.[address] 0.4 mg under the tongue every 5 minutes as needed. Allergies Allergen Reactions ? Fish-Derived Products ? Ketorolac Tromethamine ? Nubain [Nalbuphine Hcl] ? Nubain [Nalbuphine Hcl] Physical Exam ED Triage Vitals [01/26/202033] BP Temp Temp Source Pulse Resp SpO2 Height Weight 124/80 97.5 ?F (36.4 ?C) Oral 75 16 96 % 5' 5" (1.651 m) (!) 315 lb (142.9 kg) GENERAL APPEARANCE: Awake and alert. Cooperative. No acute distress. Nontoxic in appearance. HEAD: Normocephalic. Atraumatic. EYES: Sclera anicteric. ENT: Tolerates saliva. No trismus. NECK: Supple. Trachea midline. CARDIO: Tachycardic but regular rhythm.. Radial pulse 2+. LUNGS: Respirations unlabored. CTAB. ABDOMEN: Soft. Non-distended. Non-tender. EXTREMITIES: No acute deformities. SKIN: Warm and dry. NEUROLOGICAL: No gross facial drooping. Moves all 4 extremities spontaneously. PSYCHIATRIC: Normal mood. Diagnostics Labs: Results for orders placed or performed during the hospital encounter of 01/26/20 Basic Metabolic Panel Result Value Ref Range Sodium 138 135 - 145 mmol/L Potassium 3.7 3.5 - 5.1 mmol/L Chloride 102 98 - 107 mmol/L CO2 27 22 - 30 mmol/L Anion Gap 9 NA Glucose 112 (H) 70 - 100 mg/dL BUN 11 7 - 20 mg/dL CREATININE 0.60 0.52 - 1.25 mg/dL eGFR >90.0 >60 mL/min EGFR IF NonAfrican Djiboutian >90.0 >60 mL/min Calcium 9.0 8.4 - 10.4 mg/dL Brain Natriuretic Peptide Result Value Ref Range NT Pro-BNP 160 (H) 0 - 125 pg/mL Hemogram (CBC) w/Auto Diff Result Value Ref Range WBC 10.2 3.6 - 10.7 10*3/uL RBC 4.05 (L) 4.40 - 5.90 10*6/uL Hemoglobin 11.2 (L) 13.0 - 18.0 g/dL Hematocrit 34.5 (L) 40.0 - 52.0 % MCV 85.2 80.0 - 98.0 fL MCH 27.8 26.0 - 34.0 pg MCHC 32.6 32.0 - 36.0 % RDW 15.4 (H) 11.5 - 14.5 % Platelets 286 140 - 440 10*3/uL MPV 8.0 7.4 - 10.4 fL Granulocytes % 70.7 40.0 - 80.0 % Lymphocyte % 22.7 20.0 - 40.0 % Monocytes 4.3 2.0 - 10.0 % Eosinophils 1.7 1.0 - 6.0 % Basophils 0.6 0.0 - 2.0 % Absolute Neut # 7.2 (H) 1.8 - 7.0 10*3/uL Absolute Lymph # 2.3 1.0 - 4.3 10*3/uL Absolute Lamb # 0.4 0.0 - 0.8 10*3/uL Absolute Eos # 0.2 0.0 - 0.5 10*3/uL Absolute Baso # 0.1 0.0 - 0.2 10*3/uL Troponin x1 Result Value Ref Range Troponin I <0.012 0.000 - 0.034 ng/mL D-Dimer, Quantitative Result Value Ref Range D-Dimer, Quant 0.94 (H) 0.00 - 0.50 mg/L Troponin Result Value Ref Range Troponin I <0.012 0.000 - 0.034 ng/mL Radiographs: Cta Chest W Wo (pe Study) Result Date: 01/27/2020 Patient Name: NATALIE GERBER ---CT--- Exam Date/Time 01/27/2020 00:08:34 EDT Exam CTA Chest w/ + w/o Contrast Ordering Physician DAVID ZULETA Accession Number [id number] CPT4 Codes 05276 (), Q9967 (CT ISOVUE 370MG/ML&[id number]&ML&1) Reason For Exam chest pain, SOB, hx of PE Report Clinical indication: Prior history of pulmonary embolism. Chest pain and shortness of breath. Atrial fibrillation. COMPARISON: 01/13/2019, 10/03/2016 and 08/16/2014 Contrast: 75 mL Isovue-370 intravenously Radiation dose: DLP [address] was performed with rapid bolus intravenous administration of contrast material. Axial and coronal reformatted images were evaluated. I performed 3-D reconstruction at the workstation. Pulmonary arterial opacification density is less than ideal but is similar to the most recent previous exam. There are no focal filling defects noted within the central opacified pulmonary arterial system. Evaluation of the more peripheral branches is limited by the suboptimal pulmonary arterial density. No pathologically enlarged mediastinal or hilar lymph nodes are identified. No mediastinal massesare identified. Aorta is normal in size and the lumen enhances uniformly.Heart is not enlarged. There is no pericardial effusion. The lungs contain no focal pulmonary infiltrates. No pleural effusions are present. No focal masses are identified within the visualized portions of the liver and spleen and the visualized portions of the adrenal glands appear normal in size. Multilevel bridging endplate osteophytes are noted in the spine. Impression: No CT evidence of pulmonary embolism. Report Dictated on --- Final --- Dictated: 01/27/2020 0:51 am Dictating Physician: MD GLASS DIANE Signed Date and Time: 01/27/2020 0:59 am Signed by: MD GLASS DIANE Transcribed Date and Time: 01/27/2020 0:51 Xr Chest Portable Result Date: 01/26/2020 Patient Name: NATALIE GERBER ---Diagnostic Radiology--- Exam Date/Time 01/26/2020 22:10:39 EDT Exam CR Chest Portable Ordering Physician DAVID ZULETA Accession Number [id number] CPT4 Codes 80326 () Reason For Exam SOB Report CHEST X-RAY AP CLINICAL INDICATION: Shortness of breath AP radiograph of the chest was obtained. COMPARISON: 05/06/2019 FINDINGS: The cardiac silhouette is enlarged with pulmonary venous congestion. There is calcific atheromatous disease of the thoracic aorta. Hazy alveolar opacificationand smooth interstitial thickening most consistent with pulmonary edema. Otherwise no focal consolidation or opacification is seen within the lungs. No pleural effusion or pneumothorax is identified. Degenerative changes of the thoracic spine are noted. IMPRESSION: Findings suggestive of pulmonary edema/fluid overload. Report Dictated on --- Final --- Dictated: 01/26/2020 9:56 pm Dictating Physician: MD HAND JASON Signed Date and Time: 01/26/2020 9:57 pm Signed by: MD HAND JASON Transcribed Date and Time: 01/26/2020 9:56 Heart Score for chest pain patients: History: [] Slightly suspicious 0 [] Moderately suspicious +1 [x] Highly suspicious +2 ? Middle or left-sided ? Heaviness ? Initiated by exertion, emotion, or cold ? Radiation ? Relief of symptoms with Nitroglycerin 0 = 0 of the risk factors +1 = 1 or 2 of the risk factors +2 = 3 or more of risk factors EKG: [x] Normal 0 [] Non-specific disturbance +1 [] Significant ST deviation +2 Age: [] <45 = 0 [x] 45-65 = +1 [] >65 = +2 Risk factors: DM, Hyperlipidemia, HTN, Obesity, CAD, HIV, Smoking, Cocaine, Family History, [] No risk factors 0 [] 1 or 2 risk factors +1 [x] 3+ risk factors +2 Troponin: [x] Normal 0 [] 1-3X normal +1 [] >3X normal +2 HEART SCORE TOTAL = 5 Scores 0-3: 0.9-1.7% risk of adverse cardiac event. Scores 4-6: 12-16.6% risk of adverse cardiac event. Scores ?7: 50-65% risk of adverse cardiac event. A MACE (Major Adverse Cardiac Event) was defined as all-cause mortality, myocardial infarction, or coronary revascularization. ED Course and MDM In brief, Natalie Gerber is a 59 y.o. male who presented to the emergency department With the above mentioned concerns. Nursing notes have been reviewed. Reviewed and are note that patient's last provocative testing was May 2018. Had an echo with bubble study. Ejection fraction of 65%. No wall motion abnormalities noted. Patient does have a history of pulmonary embolism and is not on anticoagulation. Given his shortness of breath and tachycardia with chest pain and a have considered pulmonary embolism in my differential as well as ACS, congestive heart failure, ammonia, aortic pathology. I will obtain a d-dimer to determine further workup regarding patient's tachycardia and shortness of breath. Upon arrival patient was placed on the cardiac cath lab radiology technologist and an EKG was obtained. Please see the attending not for interpretation of the EKG. Chest x-ray results: IMPRESSION: Findings suggestive of pulmonary edema/fluid overload. All imaging was interpreted by radiology. Labs: Significant for a glucose of 112. BNP of 160. No leukocytosis. Red blood cell of 4.05. Hemoglobin of 11.2 and hematocrit of 34.5. Normal platelets. Normal troponin. D-dimer of 0.94. Given the elevated d-dimer I obtained a CTA PE study. Results as follows: Impression: No CT evidence of pulmonary embolism. Impression: No CT evidence of pulmonary embolism. The patients pain/nausea was treated with Zofran, Phenergan, morphine and oxycodone. Reevaluation improved. All test results were discussed with the patient and questions were answered. Heart Score of: 5 Discussed the risks below with patient. Scores 0-3: 0.9-1.7% risk of adverse cardiac event. Scores 4-6: 12-16.6% risk of adverse cardiac event. Scores ?7: 50-65% risk of adverse cardiac event. A MACE (Major Adverse Cardiac Event) was defined as all-cause mortality, myocardial infarction, or coronary revascularization. Given patient's heart score of 5 with no recent provocative testing and ongoing chest pain and shortness of breath do feel that patient will require admission for further cardiac workup. Patient is agreeable to this. Patient's PCP excess patient for admission. ED Medication Orders (From admission, onward) Start Ordered Status Ordering Provider 01/27/20 0130 01/27/20 0126 promethazine (PHENERGAN) injection 25 mg ONCE Last JUL action: Not Given - by ROXANNE CRESPO on 01/27/20 at 0142 MATILDA BIRD-ZULMA 01/26/20 2330 01/26/20 2315 oxyCODONE (ROXICODONE) immediate release tablet 5 mg ONCE Last JUL action: Given - by ROXANNE CRESPO on 01/26/20 at 2327 DAVID ZULETA 01/26/20204401/26/202038 sodium chloride flush 0.9 % injection 3 mL EVERY 8 HOURS Last JUL action: Given - by ROXANNE CRESPO on 01/26/20 at 2108 DAVID ZULETA 01/26/20204401/26/202038 nitroglycerin (NITRO-BID) 2 % ointment 0.5 inch ONCE Last JUL action: Given - by ROXANNE CRESPO on 01/26/20 at 2106 DAVID ZULETA 01/26/20204401/26/202038 morphine injection 4 mg ONCE Last JUL action: Given - by ROXANNE CRESPO on 01/26/20 at 2105 DAVID ZULETA 01/26/20204401/26/202038 ondansetron (ZOFRAN) injection 4 mg ONCE Last JUL action: Given - by ROXANNE CRESPO on 01/26/20 at 2105 DAVID ZULETA Final Impression 1. Chest pain, unspecified type DISPOSITION Admitted 01/27/2020 12:59:22 AM (Please note that portions of this note may have been completed with a voice recognition program. Efforts were made to edit the dictations but occasionally words are mis-transcribed.) David Zuleta, [employer] DEVEL[employer] David Zuleta, [employer] - [employer] DEVELOPER 01/27/20 0450 Normal [facility] Hemogram (CBC) w/Auto Diffon 01-26-2020 Absolute Baso # 0.1 10*3/uL 0 - 0.2 10*3/uL [place] Absolute Neut # 7.2 10*3/uL High 1.8 - 7 10*3/uL [place] Basophils/100 WBC (Bld) 0.6 % 0 - 2 % [place] Eosinophils (Bld) [#/Vol] 0.2 10*3/uL 0 - 0.5 10*3/uL [place] Eosinophils/100 WBC (Bld) 1.7 % 1 - 6 % [place] Erythrocyte distribution width (RBC) [Ratio] 15.4 % High 11.5 - 14.5 % [place] Granulocytes/100 WBC (Bld) 70.7 % 40 - 80 % [place] Hematocrit (Bld) [Volume fraction] 34.5 % Low 40 - 52 % [place] Hemoglobin (Bld) [Mass/Vol] 11.2 g/dL Low 13 - 18 g/dL [place] Interpretation and review of laboratory results Abnormal [place] Lymphocytes (Bld) [#/Vol] 2.3 10*3/uL 1 - 4.3 10*3/uL [place] Lymphocytes/100 WBC (Bld) 22.7 % 20 - 40 % [place] MCH (RBC) [Entitic mass] 27.8 pg 26 - 34 pg [place] MCHC (RBC) [Mass/Vol] 32.6 % 32 - 36 % [place] MCV (RBC) [Entitic vol] 85.2 fL 80 - 98 fL [place] Monocytes (Bld) [#/Vol] 0.4 10*3/uL 0 - 0.8 10*3/uL [place] Monocytes/100 WBC (Bld) 4.3 % 2 - 10 % [place] Platelet mean volume (Bld) [Entitic vol] 8.0 fL 7.4 - 10.4 fL [place] Platelets (Bld) [#/Vol] 286 10*3/uL 140 - 440 10*3/uL [place] RBC (Bld) [#/Vol] 4.05 10*6/uL Low 4.4 - 5.9 10*6/uL [place] WBC (Bld) [#/Vol] 10.2 10*3/uL 3.6 - 10.7 10*3/uL [place] Test Performed by [facility], [address] [place] [id number] [place] [address] Hemogram w/ Autodiffon 01-25 Abs Baso Cnt 0.1 10*3/uL Normal 0.0-0.2 [facility] Comment on above: Performed By: #### H EMOG, DDI2, BMP3, LIPA4, TROPN, BNP3 #### [address] [id number] Abs Neutrophile Cnt 7.2 10*3/uL High 1.8-7.0 [facility] Comment on above: Performed By: #### H EMOG, DDI2, BMP3, LIPA4, TROPN, BNP3 #### [address] [address] Basophils/100 WBC (Bld) 0.6 % Normal 0.0-2.0 [facility] Comment on above: Performed By: #### H EMOG, DDI2, BMP3, LIPA4, TROPN, BNP3 #### [address] [address] Eosinophils (Bld) [#/Vol] 0.2 10*3/uL Normal 0.0-0.5 [facility] Comment on above: Performed By: #### H EMOG, DDI2, BMP3, LIPA4, TROPN, BNP3 #### [address] Eosinophils/100 WBC (Bld) 1.7 % Normal 1.0-6.0 [facility] Comment on above: Performed By: #### H EMOG, DDI2, BMP3, LIPA4, TROPN, BNP3 #### [address] Erythrocyte distribution width (RBC) [Ratio] 15.4 % High 11.5-14.5 [facility] Comment on above: Performed By: #### H EMOG, DDI2, BMP3, LIPA4, TROPN, BNP3 #### [address] Granulocytes/100 WBC (Bld) 70.7 % Normal 40.0-80.0 [facility] Comment on above: Performed By: #### H EMOG, DDI2, BMP3, LIPA4, TROPN, BNP3 #### [address] Hematocrit (Bld) [Volume fraction] 34.5 % Low 40.0-52.0 [facility] Comment on above: Performed By: #### H EMOG, DDI2, BMP3, LIPA4, TROPN, BNP3 #### [address] Hemoglobin (Bld) [Mass/Vol] 11.2 g/dL Low 13.0-18.0 [facility] Comment on above: Performed By: #### H EMOG, DDI2, BMP3, LIPA4, TROPN, BNP3 #### [address] Lymphocytes (Bld) [#/Vol] 2.3 10*3/uL Normal 1.0-4.3 [facility] Comment on above: Performed By: #### H EMOG, DDI2, BMP3, LIPA4, TROPN, BNP3 #### [address] Lymphocytes/100 WBC (Bld) 22.7 % Normal 20.0-40.0 [facility] Comment on above: Performed By: #### H EMOG, DDI2, BMP3, LIPA4, TROPN, BNP3 #### [address] MCH (RBC) [Entitic mass] 27.8 pg Normal 26.0-34.0 [facility] Comment on above: Performed By: #### H EMOG, DDI2, BMP3, LIPA4, TROPN, BNP3 #### [address] MCHC (RBC) [Mass/Vol] 32.6 % Normal 32.0-36.0 [facility] Comment on above: Performed By: #### H EMOG, DDI2, BMP3, LIPA4, TROPN, BNP3 #### [address] MCV (RBC) [Entitic vol] 85.2 fL Normal 80.0-98.0 [facility] Comment on above: Performed By: #### H EMOG, DDI2, BMP3, LIPA4, TROPN, BNP3 #### [address] Monocytes (Bld) [#/Vol] 0.4 10*3/uL Normal 0.0-0.8 [facility] Comment on above: Performed By: #### H EMOG, DDI2, BMP3, LIPA4, TROPN, BNP3 #### [address] Monocytes/100 WBC (Bld) 4.3 % Normal 2.0-10.0 [facility] Comment on above: Performed By: #### H EMOG, DDI2, BMP3, LIPA4, TROPN, BNP3 #### [address] Platelet mean volume (Bld) [Entitic vol] 8.0 fL Normal 7.4-10.4 [facility] Comment on above: Performed By: #### H EMOG, DDI2, BMP3, LIPA4, TROPN, BNP3 #### [place] [address] [address] [place], [place] Platelets (Bld) [#/Vol] 286 10*3/uL Normal 140-440 [facility] Comment on above: Performed By: #### H EMOG, DDI2, BMP3, LIPA4, TROPN, BNP3 #### [place] [address] [place], [place] RBC (Bld) [#/Vol] 4.05 10*6/uL Low 4.40-5.90 [facility] Comment on above: Performed By: #### H EMOG, DDI2, BMP3, LIPA4, TROPN, BNP3 #### [address] WBC (Bld) [#/Vol] 10.2 10*3/uL Normal 3.6-10.7 [facility] Comment on above: Performed By: #### H EMOG, DDI2, BMP3, LIPA4, TROPN, BNP3 #### [place] [address] [place], [place] NT pro BNPon 01-26-2020 Natriuretic peptide B (Bld) [Mass/Vol] 160 pg/mL High 0-125 [facility] Comment on above: Performed By: #### H EMOG, DDI2, BMP3, LIPA4, TROPN, BNP3 #### [place] [address] [place], [place] Otheron 01-26-2020 Interpretation and review of laboratory results Abnormal [place] Test Performed by [facility], [address] [place] [address] [place] Troponin Ion 01-26-2020 Troponin I.cardiac [Mass/Vol] ng/mL Normal 0.000-0.03 4 [facility] Comment on above: Result Comment: . Performed By: #### H EMOG, DDI2, BMP3, LIPA4, TROPN, BNP3 #### [place] [address] [place] [address] Troponin x1on 01-26-2020 Troponin I.cardiac [Mass/Vol] ng/mL 0 - 0.034 ng/mL [place] Comment on above: . XR CHEST PORTABLEon 01-26-20 Patient Name: NATALIE GERBER ---Diagnostic Radiology--- Exam Date/Time 01/26/2020 22:10:39 EDT Exam CR Chest Portable Ordering Physician DAVID ZULETA Accession Number [id number] CPT4 Codes 30965 () Reason For Exam SOB Report CHEST X-RAY AP CLINICAL INDICATION: Shortness of breath AP radiograph of the chest was obtained. COMPARISON: 05/06/2019 FINDINGS: The cardiac silhouette is enlarged with pulmonary venous congestion. There is calcific atheromatous disease of the thoracic aorta. Hazy alveolar opacification and smooth interstitial thickening most consistent with pulmonary edema. Otherwise no focal consolidation or opacification is seen within the lungs. No pleural effusion or pneumothorax is identified. Degenerative changes of the thoracic spine are noted. IMPRESSION: Findings suggestive of pulmonary edema/fluid overload. Report Dictated on --- Final --- Dictated: 01/26/2020 9:56 pm Dictating Physician: MD HAND JASON Signed Date and Time: 01/26/2020 9:57 pm Signed by: MD HAND JASON Transcribed Date and Time: 01/26/2020 9:56 [place] Incoming Radiology Results From [facility] - 01/26/2020 10:10 PM EDT Patient Name: NATALIE GERBER ---Diagnostic Radiology--- Exam Date/Time 01/26/2020 22:10:39 EDT Exam CR Chest Portable Ordering Physician DAVID ZULETA Accession Number [id number] CPT4 Codes 38554 () Reason For Exam SOB Report CHEST X-RAY AP CLINICAL INDICATION: Shortness of breath AP radiograph of the chest was obtained. COMPARISON: 05/06/2019 FINDINGS: The cardiac silhouette is enlarged with pulmonary venous congestion. There is calcific atheromatous disease of the thoracic aorta. Hazy alveolar opacification and smooth interstitial thickening most consistent with pulmonary edema. Otherwise no focal consolidation or opacification is seen within the lungs. No pleural effusion or pneumothorax is identified. Degenerative changes of the thoracic spine are noted. IMPRESSION: Findings suggestive of pulmonary edema/fluid overload. Report Dictated on --- Final --- Dictated: 01/26/2020 9:56 pm Dictating Physician: MD HAND JASON Signed Date and Time: 01/26/2020 9:57 pm Signed by: MD HAND JASON Transcribed Date and Time: 01/26/2020 9:56 [place] CRPon 12-11-2019 CRP [Mass/Vol] 16.8 mg/dL High 0.0-0.8 [facility] Comment on above: Performed By: #### T ROP #### [place] [address] Comprehensive Metabolic Pane [place] 12-11-2019 Albumin [Mass/Vol] 3.3 g/dL Low 3.9-4.9 [facility] Comment on above: Performed By: #### T ROP #### [place] [address] ALP [Catalytic activity/Vol] 124 U/L High 38-113 [facility] Comment on above: Performed By: #### T ROP #### [place] [address] ALT [Catalytic activity/Vol] 37 U/L Normal 10-54 [facility] Comment on above: Performed By: #### T ROP #### [place] [address] Anion gap [Moles/Vol] 10 mmol/L Normal 9-18 [facility] Comment on above: Performed By: #### T ROP #### [place] [address] AST [Catalytic activity/Vol] 115 U/L High 14-40 [facility] Comment on above: Performed By: #### T ROP #### [place] [address] Bilirubin [Mass/Vol] 0.3 mg/dL Normal 0.2-1.3 [facility] Comment on above: Performed By: #### T ROP #### [facility] [address] [place], [place] [address] Calcium [Mass/Vol] 8.0 mg/dL Low 8.5-10.2 [facility] Comment on above: Performed By: #### T ROP #### [facility] [address] [place], [place] [address] Chloride [Moles/Vol] 103 mmol/L Normal 97-105 [facility] Comment on above: Performed By: #### T ROP #### [facility] [address] [place], [place] [address] CO2 Blood 24 mmol/L Normal 22-30 [facility] Comment on above: Performed By: #### T ROP #### [facility] [address] [place] [address] Creatinine [Mass/Vol] 0.53 mg/dL Low 0.73-1.22 [facility] Comment on above: Performed By: #### T ROP #### [facility] [address] [place] [address] Glucose [Mass/Vol] 125 mg/dL High 74-99 [facility] Comment on above: Result Comment: The [place] Diabetes Association (ADA) provides guidance for cutoff values for fasting glucose and random glucose. The ADA defines fasting as no caloric intake for at least 8 hours.Fasting plasma glucose results between 100 to 125 mg/dL indicate increased risk for diabetes (prediabetes). Fasting plasma glucose results greater than or equal to 126 mg/dL meet the criteria for diagnosis of diabetes. In the absence of unequivocal hyperglycemia, results should be confirmed by repeat testing. In a patient with classic symptoms of hyperglycemia or hyperglycemic crisis, random plasma glucose results greater than or equal to 200 mg/dL meet the criteria for diagnosis of diabetes. Reference: Standards of Medical Care in Diabetes 2016; [place] [employer]. Diabetes Care. 2016;39(Suppl 1). Performed By: #### T ROP #### [facility] [address] [place], [place] [address] Potassium [Moles/Vol] 4.4 mmol/L Normal 3.7-5.1 [facility] Comment on above: Performed By: #### T ROP #### [facility] [address] [place], [place] [address] Protein [Mass/Vol] 5.9 g/dL Low 6.3-8.0 [facility] Comment on above: Performed By: #### T ROP #### [facility] [address] [place], [place] [address] Sodium [Moles/Vol] 137 mmol/L Normal 136-144 [facility] Comment on above: Performed By: #### T ROP #### [address] [address] Urea nitrogen [Mass/Vol] 20 mg/dL Normal 9-24 [facility] Comment on above: Performed By: #### T ROP #### [place] [id number] Legionella Ag, Urineon 12-10 Legionella Ag, Urine Test performed at [facility] Presumptive negative for L. pneumophilia serogroup 1 antigen in urine, suggesting no recent or current infection. Infection due to Legionella cannot be ruled out since other serogroups and species may cause disease, antigen may not be present in urine in early infection, and the level of antigen present in the urine may be below the detection limit of the test. Normal [facility] Comment on above: Performed By: #### G LMET #### [place] [id number] MDRD GFRon 12-11-2019 GFR/1.73 sq M predicted among non-blacks MDRD (S/P/Bld) [Vol rate/Area] mL/min/{1.73_m2} Normal >60mL/min/ 1.73m2 [facility] Comment on above: Result Comment: If t he patient is , multiply the result by 1.210. Performed By: #### U RIN2 #### [address] [address] Procalcitoninon 12-11-2019 Procalcitonin 0.40 ng/mL High 0.00-0.08 [facility] Comment on above: Result Comment: Used as an aid in the diagnosis and management of severe sepsis and septic shock. Based on studies in ICU patients, procalcitonin levels > 2.00 ng/mL represent an elevated risk of severe sepsis and/or septic shock, while levels <0.50 ng/mL represent a low risk of severe sepsis and/or septic shock. However, levels < 0.50 ng/mL do not exclude infection, as localized infections or systemic infections in early stages (<6 hours) can be associated with low concentrations. Levels between 0.50 and 2.00 ng/mL should be interpreted in the clinical context of the patient, as a variety of non-infectious conditions such as bob, trauma, surgery, and severe cardiogenic shock can cause procalcitonin elevations. Performed By: #### T ROP #### [place] [address] Basic Metabolic Panelon 07- 0-2020 Anion gap [Moles/Vol] 18 mmol/L Normal 9-18 [facility] Comment on above: Performed By: #### E RTRP #### [place] [address] Calcium [Mass/Vol] 8.1 mg/dL Low 8.5-10.2 [facility] Comment on above: Performed By: #### E RTRP #### [facility] [address] [place] [address] Chloride [Moles/Vol] 98 mmol/L Normal 97-105 [facility] Comment on above: Performed By: #### E RTRP #### [facility] [address] [place] [address] CO2 Blood 19 mmol/L Low 22-30 [facility] Comment on above: Performed By: #### E RTRP #### [facility] [address] [place] [address] Creatinine [Mass/Vol] 1.97 mg/dL High 0.73-1.22 [facility] Comment on above: Performed By: #### E RTRP #### [facility] [address] [place] [address] Glucose [Mass/Vol] 117 mg/dL High 74-99 [facility] Comment on above: Result Comment: The [place] Diabetes Association (ADA) provides guidance for cutoff values for fasting glucose and random glucose. The ADA defines fasting as no caloric intake for at least 8 hours.Fasting plasma glucose results between 100 to 125 mg/dL indicate increased risk for diabetes (prediabetes). Fasting plasma glucose results greater than or equal to 126 mg/dL meet the criteria for diagnosis of diabetes. In the absence of unequivocal hyperglycemia, results should be confirmed by repeat testing. In a patient with classic symptoms of hyperglycemia or hyperglycemic crisis, random plasma glucose results greater than or equal to 200 mg/dL meet the criteria for diagnosis of diabetes. Reference: Standards of Medical Care in Diabetes 2016; [place] [employer]. Diabetes Care. 2016;39(Suppl 1). Performed By: #### E RTRP #### [address] [address] Potassium [Moles/Vol] 4.8 mmol/L Normal 3.7-5.1 [facility] Comment on above: Performed By: #### E RTRP #### [address] [address] Sodium [Moles/Vol] 135 mmol/L Low 136-144 [facility] Comment on above: Performed By: #### E RTRP #### [address] [address] Urea nitrogen [Mass/Vol] 46 mg/dL High 9-24 [facility] Comment on above: Performed By: #### E RTRP #### [address] [address] CPKon 12-10-2019 CK [Catalytic activity/Vol] 5117 U/L High 51-298 [facility] Comment on above: Performed By: #### T ROP #### [address] [address] CK [Catalytic activity/Vol] 7809 U/L High 51-298 [facility] Comment on above: Performed By: #### T ROP #### [address] [address] Creatinine, Urineon 12-10-19 20 Creatinine, Urine 107.4 mg/dL Normal 46.8-314.5 [facility] Comment on above: Performed By: #### T ROP #### [address] [address] Creatinine, Urine 193.3 mg/dL Normal 46.8-314.5 [facility] Comment on above: Performed By: #### E RTRP #### [facility] [address] [place], [place] [address] Cult Bloodon 12-10-2019 Cult Blood Test performed at [facility] No growth Normal [facility] Comment on above: Performed By: #### G LMET #### [facility] [address] [id number] D-Dimer Quantitativeon 12-09 D-Dimer, Quant. 1140 ng/mL(FEU) Critically high <500 [facility] Comment on above: Result Comment: 500 ng/mL FEU is the D-dimer cutoff to exclude DVT (deep vein thrombosis)and PE (pulmonary embolism)in patients with a low pre-test probability. Supplemental Comment: In patients over 50 years with a low Pre-test probability for DVT and/or PE, an age-adjusted D-dimer cutoff can be calculated as [age X 10] ng/mL FEU. For example, a patient of 88 years would have an age-adjusted D-dimer of 880 ng/mL FEU. For patients with a suspected DVT, a D-dimer level below 500 ng/mL FEU has a negative predictive value of >=99.0%, a sensitivity of >=97.0% and a specificity of >=35.8%. Performed By: #### E RTRP #### [address] [address] Ferritinon 12-10-2019 Ferritin [Mass/Vol] 193.0 ng/mL Normal 30.3-565.7 [facility] Comment on above: Result Comment: Susan ents taking a biotin dose of up to 5 mg/day should refrain from taking biotin for 4 hours prior to sample collection. Patients taking a biotin dose of 5 to 10 mg/day should refrain from taking biotin for 8 hours prior to sample collection. Patients taking a biotin dose > 10 mg/day should consult with their physician or the laboratory prior to having a sample taken. Clinicians should consider biotin interference as a source of error, when clinically suspicious of the laboratory result. Performed By: #### T ROP #### [address] [place], [place] [address] Hemogramon 12-10-2019 Erythrocyte distribution width (RBC) [Ratio] 14.5 % High 11.6-14.4 [facility] Comment on above: Performed By: #### E RTRP #### [facility] [address] [place] [address] Hematocrit (Bld) [Volume fraction] 30.3 % Low 40.1-51.0 [facility] Comment on above: Performed By: #### E RTRP #### [facility] [address] [place] [address] Hemoglobin (Bld) [Mass/Vol] 9.5 g/dL Low 13.7-17.5 [facility] Comment on above: Performed By: #### E RTRP #### [facility] [address] [place] [address] MCH (RBC) [Entitic mass] 28.2 pg Normal 25.7-32.2 [facility] Comment on above: Performed By: #### E RTRP #### [facility] [address] [place] [address] MCHC (RBC) [Mass/Vol] 31.4 % Low 32.3-36.5 [facility] Comment on above: Performed By: #### E RTRP #### [facility] [address] [place] [address] MCV (RBC) [Entitic vol] 89.9 fL Normal 83.2-95.6 [facility] Comment on above: Performed By: #### E RTRP #### [facility] [address] [place] [address] Platelet mean volume (Bld) [Entitic vol] 10.1 fL Normal 8.7-12.0 [facility] Comment on above: Performed By: #### E RTRP #### [facility] [address] [place] [address] Platelets (Bld) [#/Vol] 227 thou/cmm Normal 141-365 [facility] Comment on above: Performed By: #### E RTRP #### [facility] [address] [place] [address] RBC (Bld) [#/Vol] 3.37 mil/cmm Low 4.63-6.08 [facility] Comment on above: Performed By: #### E RTRP #### [facility] [address] [place] [address] RDW SD 47.3 fl High 36.1-45.8 [facility] Comment on above: Performed By: #### E RTRP #### [place] [address] WBC (Bld) [#/Vol] 15.94 thou/cmm High 4.23-9.07 [facility] Comment on above: Performed By: #### E RTRP #### [place] [address] Lactic Acidon 12-10-2019 Lactate [Moles/Vol] 1.3 mmol/L Normal 0.5-2.2 [facility] Comment on above: Performed By: #### E RTRP #### [place] [address] MRSA Screenon 12-10-2019 MRSA DNA TESSA+probe Ql (Unsp spec) Test performed at [facility] ORGANISM: *Methicillin Resist S.aureus (ID: 1) MRSA Nasal Colonization Present Normal [facility] Comment on above: Performed By: #### G LMET #### [place] [address] Sodium,Urineon 12-10-2019 Sodium (U) [Moles/Vol] 36.0 mmol/L Normal 14.0-216.0 [facility] Comment on above: Performed By: #### T ROP #### [place] [address] Sodium (U) [Moles/Vol] 49.0 mmol/L Normal 14.0-216.0 [facility] Comment on above: Performed By: #### E RTRP #### [place] [address] Strep pneumoniae Agon 2019 Strep pneumoniae Ag Test performed at [facility] Negative for Streptococcus pneumoniae antigen. Presumptive negative for pneumococcal pneumonia, suggesting no current or recent pneumococcal infection. Infection due to S. pneumoniae cannot be ruled out since the antigen present in the sample may be below the detection limit of the test. Normal [facility] Comment on above: Performed By: #### G LMET #### [facility] [address] [place], [place] [address] Triglyceride Bloodon 020 Triglyceride [Mass/Vol] 443 mg/dL High 0-149 [facility] Comment on above: Result Comment: Trig lycerides < 150 mg/dL, Normal Triglycerides 150 to 199 mg/dL, Borderline high Triglycerides 200 to 499 mg/dL, High Triglycerides > 499 mg/dL, Very high Performed By: #### T ROP #### [address] [address] Activated PTTon 12-09-2019 aPTT Coag (Bld) [Time] 25.2 s Normal 23.0-32.4 [facility] Comment on above: Result Comment: Unfr actionated Heparin Therapeutic Ranges: Standard Heparin Nomogram: 53 to 78 seconds (anti-Xa level of 0.3 to 0.7 U/mL) Low Dose/ACS Nomogram: 49 to 67 seconds (anti-Xa level of 0.2 to 0.5 U/mL) Stroke Treatment Nomogram: 49 to 67 seconds (anti-Xa level of 0.2 to 0.5 U/mL) Note: The APTT therapeutic range has been determined for the current lot of laboratory APTT reagent in use throughout the [facility]. Performed By: #### U RIN2 #### [facility] [address] [place], [place] [address] Blood Gas Arterialon 020 Base Excess -6.5 mmol/L Low -3.0-3.0 [facility] Comment on above: Performed By: #### E RTRP #### [facility] [address] [place], [place] [address] HCO3 (Bld) [Moles/Vol] 20.9 mmol/L Low 21.0-28.0 [facility] Comment on above: Performed By: #### E RTRP #### [address] [place] [address] PCO2 Arterial 53.5 mm Hg High 35.0-45.0 [facility] Comment on above: Performed By: #### E RTRP #### [facility] [address] [place], [place] [address] pH Arterial 7.216 Low 7.350-7.45 0 [facility] Comment on above: Performed By: #### E RTRP #### [facility] [address] [place], [place] [address] PO2 Arterial 75.9 mm Hg Low 83.0-108.0 [facility] Comment on above: Performed By: #### E RTRP #### [facility] [address] [place] [address] CPKon 12-09-2019 CK [Catalytic activity/Vol] 4221 U/L High 51-298 [facility] Comment on above: Performed By: #### U RIN2 #### [facility] [address] [place] [address] [address] ABD/PEL WO IVCONon 2019 CT ABD/PEL WO IVCON Final Report DATE OF EXAM: Dec 09 2019 9:15PM [facility] 0531 - CT ABD/PEL WO IVCON / PROCEDURE REASON: Infection, abdomen-pelvis Physician Interpretation CT OF ABDOMEN AND PELVIS WITHOUT CONTRAST CLINICAL HISTORY: Infection, abdomen-pelvis, Nausea, vomiting, ABD PAIN TECHNIQUE: Routine helical scanning of the abdomen and pelvis. Contrast: IV contrast: None. Oral: None. CT Radiation dose: Integrated Dose-length product (DLP) for this visit = [address] Dose Reduction Employed: Automatic exposure control. COMPARISON: 04/22/2018 CT of abdomen and pelvis RESULT: Lower chest: Moderate dependent atelectasis/infiltrates with air bronchograms at the bilateral lung bases. No significant pleural effusion. Peritoneum/mesentery: There is no free intraperitoneal air or significant free fluid. Liver: Normal. Biliary: Cholecystectomy changes. Spleen: Normal. Pancreas: Normal. Kidneys/urinary: Normal. Adrenals: Normal. GI tract: NG tube in place with distal segment within the proximal stomach. Mild sigmoid colonic diverticulosis without acute diverticulitis. No dilated bowel or bowel wall inflammatory changes. Normal appendix in the right lower quadrant. Lymph nodes: No adenopathy. Vasculature: Minimal atherosclerotic changes involving the distal aorta and bilateral iliac artery branches. Pelvis: No mass or fluid collection. Mildly dilated urinary bladder. Bones/soft tissue: Small fat-containing ventral hernia slightly superior to the umbilicus and slightly left of midline. No bowel loop involvement or inflammatory change. In retrospect this can be faintly seen on the 04/22/2018 CT scan. Edematous changes now noted in the subcutaneous fatty tissues of the left lateral abdominal wall. No fluid collection or gas bubble in this area. Degenerative changes at multiple lumbar disc levels. Left total hip prosthesis. IMPRESSION: 1. Moderate bibasilar airspace opacities with air bronchograms concerning for multifocal infection. These infiltrates are difficult to visualize on the earlier portable chest x-ray secondary to patient's large body habitus. 2. Minimal colonic diverticulosis without acute inflammation. 3. No acute findings in the abdomen and pelvis. 4. Edematous changes within the partially included left lateral abdominal wall subcutaneous fatty tissues. This could be related to cellulitis. The skin surface was not completely included for evaluation. Gill Box Fixer[facility] Transcribe Date/Time: Dec 09 2019 9:18P Dictated by : JAYDEN MORENO MD This examination was interpreted and the report reviewed and electronically signed by: JAYDEN MORENO MD on Dec 09 2019 9:29PM EST Normal [facility] CT BRAIN WO IVCONon 12-09-19 CT BRAIN WO IVCON Final Report DATE OF EXAM: Dec 09 2019 9:09PM [facility] 0504 - CT BRAIN WO IVCON / PROCEDURE REASON: Ataxia, stroke suspected Physician Interpretation EXAMINATION: CT BRAIN WO IVCON CLINICAL HISTORY: Ataxia, stroke suspected TECHNIQUE: Routine CT of the brain without IV contrast. CT Dose-Length Product (DLP): [address] Dose Reduction Employed: Automated exposure control(AEC) and iterative recon COMPARISON: 05/09/2019 RESULT: Parenchyma: Scattered small foci of low attenuation are present within white matter which is a nonspecific finding but likely represents mild microvascular ischemia. 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 No evidence of large territory acute infarction, acute intraparenchymal hemorrhage, or parenchymal mass lesion. Extra-axial: The ventricles are within normal limits of size and configuration for age. No evidence of acute extra-axial hemorrhage, other extra-axial fluid collection, or extra-axial mass lesion. Mass Effect: No significant mass effect. Other: The calvarium is intact. The visualized portions of the paranasal sinuses and mastoid air cells are clear. The visualized portions of the orbits are within normal limits. The patient is intubated. IMPRESSION: No evidence of an acute intracranial process. Chronic changes as above, unchanged from prior exam. Gill Box Fixer: [facility] Transcribe Date/Time: Dec 09 2019 9:16P Dictated by : DC ALCANTARA MD This examination was interpreted and the report reviewed and electronically signed by: DC ALCANTARA MD on Dec 09 2019 9:23PM EST Normal [facility] Comprehensive Metabolic Pane wilton 12-09-2019 Albumin [Mass/Vol] 4.2 g/dL Normal 3.9-4.9 [facility] Comment on above: Performed By: #### U RIN2 #### [address] [address] ALP [Catalytic activity/Vol] 144 U/L High 38-113 [facility] Comment on above: Performed By: #### U RIN2 #### [facility] [address] [place], [place] [address] ALT [Catalytic activity/Vol] 13 U/L Normal 10-54 [facility] Comment on above: Performed By: #### U RIN2 #### [facility] [address] [place], [place] [address] Anion gap [Moles/Vol] 19 mmol/L High 9-18 [facility] Comment on above: Performed By: #### U RIN2 #### [facility] [address] [place], [place] [address] AST [Catalytic activity/Vol] 52 U/L High 14-40 [facility] Comment on above: Performed By: #### U RIN2 #### [address] [address] Bilirubin [Mass/Vol] 0.7 mg/dL Normal 0.2-1.3 [facility] Comment on above: Performed By: #### U RIN2 #### [address] [address] Calcium [Mass/Vol] 8.8 mg/dL Normal 8.5-10.2 [facility] Comment on above: Performed By: #### U RIN2 #### [facility] [address] [place], [place] [address] Chloride [Moles/Vol] 99 mmol/L Normal 97-105 [facility] Comment on above: Performed By: #### U RIN2 #### [facility] [address] [place], [place] [address] CO2 Blood 21 mmol/L Low 22-30 [facility] Comment on above: Performed By: #### U RIN2 #### [facility] [address] [place], [place] [address] Creatinine [Mass/Vol] 3.28 mg/dL High 0.73-1.22 [facility] Comment on above: Performed By: #### U RIN2 #### [facility] [address] [place], [place] [address] Glucose [Mass/Vol] 127 mg/dL High 74-99 [facility] Comment on above: Result Comment: The [place] Diabetes Association (ADA) provides guidance for cutoff values for fasting glucose and random glucose. The ADA defines fasting as no caloric intake for at least 8 hours.Fasting plasma glucose results between 100 to 125 mg/dL indicate increased risk for diabetes (prediabetes). Fasting plasma glucose results greater than or equal to 126 mg/dL meet the criteria for diagnosis of diabetes. In the absence of unequivocal hyperglycemia, results should be confirmed by repeat testing. In a patient with classic symptoms of hyperglycemia or hyperglycemic crisis, random plasma glucose results greater than or equal to 200 mg/dL meet the criteria for diagnosis of diabetes. Reference: Standards of Medical Care in Diabetes 2016; [place] [employer] Association. Diabetes Care. 2016;39(Suppl 1). Performed By: #### U RIN2 #### [facility] [address] [place], [place] [address] Potassium [Moles/Vol] 5.0 mmol/L Normal 3.7-5.1 [facility] Comment on above: Performed By: #### U RIN2 #### [facility] [address] [place], [place] [address] Protein [Mass/Vol] 7.3 g/dL Normal 6.3-8.0 [facility] Comment on above: Performed By: #### U RIN2 #### [facility] [address] [place] [address] Sodium [Moles/Vol] 139 mmol/L Normal 136-144 [facility] Comment on above: Performed By: #### U RIN2 #### [facility] [address] [place] [address] Urea nitrogen [Mass/Vol] 38 mg/dL High 9-24 [facility] Comment on above: Performed By: #### U RIN2 #### [place] [address] Cult and Smr Respiratoryon 0 12-09-2019 Cult and Smr Respiratory Test performed at [facility] Normal oropharyngeal brett present. No organisms seen Moderate Polymorphonuclear leukocytes Few Mononuclear cells Normal [facility] Comment on above: Performed By: #### T ROP #### [place] [address] Glucose Meteron 12-09-2019 Glucose [Mass/Vol] 135 mg/dL High 70-99 [facility] Comment on above: Performed By: #### E RTRP #### [place] [address] Hemogram/Diffon 12-09-2019 Abs Immature Grans 0.12 thou/cmm High 0.00-0.05 [facility] Comment on above: Performed By: #### E RTRP #### [place] [address] Abs Neut (ANC) 15.53 thou/cmm High 1.78-5.38 [facility] Comment on above: Performed By: #### E RTRP #### [place] [address] Abs. Baso 0.03 thou/cmm Normal 0.01-0.08 [facility] Comment on above: Result Comment: Smea r scanned; tech agrees with automated differential Performed By: #### E RTRP #### [place] [address] Abs. Lamb 0.85 thou/cmm High 0.30-0.82 [facility] Comment on above: Performed By: #### E RTRP #### [facility] [address] [place], [place] [address] Basophils/100 WBC (Bld) 0.2 % Normal [facility] Comment on above: Performed By: #### E RTRP #### [facility] [address] [place], [place] [address] Eosinophils (Bld) [#/Vol] 0.00 thou/cmm Low 0.04-0.54 [facility] Comment on above: Performed By: #### E RTRP #### [facility] [address] [place], [place] [address] Eosinophils/100 WBC (Bld) 0.0 % Normal [facility] Comment on above: Performed By: #### E RTRP #### [address] [address] Immature Grans 0.70 % Normal [facility] Comment on above: Performed By: #### E RTRP #### [facility] [address] [place], [place] [address] Lymphocytes (Bld) [#/Vol] 0.87 thou/cmm Normal 0.84-2.85 [facility] Comment on above: Performed By: #### E RTRP #### [facility] [address] [place], [place] [address] Lymphocytes/100 WBC (Bld) 5.0 % Normal [facility] Comment on above: Performed By: #### E RTRP #### [facility] [address] [place], [place] [address] Monocytes/100 WBC (Bld) 4.9 % Normal [facility] Comment on above: Performed By: #### E RTRP #### [facility] [address] [place], [place] [address] Seg Neutrophil 89.2 % Normal [facility] Comment on above: Performed By: #### E RTRP #### [facility] [address] [place], [place] [address] Erythrocyte distribution width (RBC) [Ratio] 14.5 % High 11.6-14.4 [facility] Comment on above: Performed By: #### E RTRP #### [facility] [address] [place], [place] [address] Hematocrit (Bld) [Volume fraction] 31.4 % Low 40.1-51.0 [facility] Comment on above: Performed By: #### E RTRP #### [facility] [address] [place], [place] [address] Hemoglobin (Bld) [Mass/Vol] 9.6 g/dL Low 13.7-17.5 [facility] Comment on above: Performed By: #### E RTRP #### [facility] [address] [place] [address] MCH (RBC) [Entitic mass] 27.4 pg Normal 25.7-32.2 [facility] Comment on above: Performed By: #### E RTRP #### [facility] [address] [place] [address] MCHC (RBC) [Mass/Vol] 30.6 % Low 32.3-36.5 [facility] Comment on above: Performed By: #### E RTRP #### [facility] [address] [place] [address] MCV (RBC) [Entitic vol] 89.5 fL Normal 83.2-95.6 [facility] Comment on above: Performed By: #### E RTRP #### [facility] [address] [place] [address] Platelet mean volume (Bld) [Entitic vol] 10.3 fL Normal 8.7-12.0 [facility] Comment on above: Performed By: #### E RTRP #### [facility] [address] [place], [place] [address] Platelets (Bld) [#/Vol] 276 thou/cmm Normal 141-365 [facility] Comment on above: Performed By: #### E RTRP #### [facility] [address] [place], [place] [address] RBC (Bld) [#/Vol] 3.51 mil/cmm Low 4.63-6.08 [facility] Comment on above: Performed By: #### E RTRP #### [facility] [address] [place] [address] RDW SD 46.0 fl High 36.1-45.8 [facility] Comment on above: Performed By: #### E RTRP #### [facility] [address] [place], [place] [address] WBC (Bld) [#/Vol] 17.41 thou/cmm High 4.23-9.07 [facility] Comment on above: Performed By: #### E RTRP #### [facility] [address] [place] [address] Lactic Acidon 12-09-2019 Lactate [Moles/Vol] 3.2 mmol/L High 0.5-2.2 [facility] Comment on above: Performed By: #### E RTRP #### [facility] [address] [place] [address] Lipase Bloodon 12-09-2019 Lipase Blood 7 U/L Low 16-61 [facility] Comment on above: Performed By: #### U RIN2 #### [facility] [address] [place], [place] [address] Magnesium Bloodon 12-09-2019 Magnesium [Mass/Vol] 2.2 mg/dL Normal 1.7-2.3 [facility] Comment on above: Performed By: #### U RIN2 #### [facility] [address] [place] [address] Protimeon 12-09-2019 INR Coag (PPP) [Relative time] 0.98 {INR} Normal 0.90-1.30 [facility] Comment on above: Result Comment: Michelle min K Antagonist (VKA) Therapeutic Range: INR 2 to 3 (Target INR of 2.5) Note: For patients treated with VKA drugs, such as warfarin, the [place] [employer] 2012 Guideline recommends a therapeutic INR range of 2 to 3 (target INR of 2.5). This recommendation includes high-risk patients with antiphospholipid syndrome with previous arterial or venous thromboembolism, current-generation mechanical or bioprosthetic aortic heart valve replacement. Note: Patients with mechanical aortic valve replacement and additional risk factors for thromboembolic events (atrial fibrillation, previous thromboembolism, LV dysfunction, hypercoagulable conditions) or an older generation mechanical AVR (i.e., ball in-Cage) or any mechanical MVR should have a INR therapeutic range of 2.5 to 3.5 target INR of 3). Aida GLASGOW, et al. Chest 2012; 141:7S-47S Hayder CASTRO et al. [facility] 2017; 70: 252-289 Performed By: #### E RTRP #### [address] [address] PT Coag (PPP) [Time] 10.6 s Normal 9.7-13.0 [facility] Comment on above: Performed By: #### E RTRP #### [address] [address] Rapid, COVID 19on 12-09-2019 Rapid, COVID 19 Positive Abnormal Negative [facility] Comment on above: Result Comment: This test has been authorized by the FDA under an Emergency Use Authorization (EUA). Performed By: #### E RTRP #### [address] [address] Troponin T, High Sens.on Troponin T, High Sens. 30 ng/L High 0-11 [facility] Comment on above: Result Comment: Susan ents taking a biotin dose of up to 5 mg/day should refrain from taking biotin for 4 hours prior to sample collection. Patients taking a biotin dose of 5 to 10 mg/day should refrain from taking biotin for 8 hours prior to sample collection. Patients taking a biotin dose > 10 mg/day should consult with their physician or the laboratory prior to having a sample taken. Clinicians should consider biotin interference as a source of error, when clinically suspicious of the laboratory result. Performed By: #### U RIN2 #### [address] [address] Troponin T, High Sens. 29 ng/L High 0-11 [facility] Comment on above: Result Comment: Susan ents taking a biotin dose of up to 5 mg/day should refrain from taking biotin for 4 hours prior to sample collection. Patients taking a biotin dose of 5 to 10 mg/day should refrain from taking biotin for 8 hours prior to sample collection. Patients taking a biotin dose > 10 mg/day should consult with their physician or the laboratory prior to having a sample taken. Clinicians should consider biotin interference as a source of error, when clinically suspicious of the laboratory result. Performed By: #### E RTRP #### [facility] [address] [place] [address] Urinalysis Routineon 020 Bacteria LM.HPF (Urine sed) [#/Area] NONE Normal None [facility] Comment on above: Performed By: #### E RTRP #### [facility] [address] [place] [address] Ep Cells Urine 0.1 /hpf Normal 0.0-5.0 [facility] Comment on above: Performed By: #### E RTRP #### [place] [address] Hyaline Cast 0.3 /lpf Normal 0.0-1.0 [facility] Comment on above: Performed By: #### E RTRP #### [facility] [address] [place] [address] RBC LM.HPF (Urine sed) [#/Area] 1.8 /[HPF] Normal 0.0-5.0 [facility] Comment on above: Performed By: #### E RTRP #### [place] [address] WBC LM.HPF (Urine sed) [#/Area] 0.1 /[HPF] Normal 0.0-5.0 [facility] Comment on above: Performed By: #### E RTRP #### [facility] [address] [place] [address] Appearance (U) CLEAR Normal [facility] Comment on above: Performed By: #### E RTRP #### [facility] [address] [place] [address] Bilirubin (U) [Mass/Vol] Negative Normal Negative [facility] Comment on above: Performed By: #### E RTRP #### [facility] [address] [place] [address] Color (U) YELLOW Normal [facility] Comment on above: Performed By: #### E RTRP #### [facility] [address] [place], [place] [address] Glucose Ql (U) Negative Normal Negative [facility] Comment on above: Performed By: #### E RTRP #### [facility] [address] [place], [place] [address] Hemoglobin,Urine Negative Normal Negative [facility] Comment on above: Performed By: #### E RTRP #### [facility] [address] [place] [address] Ketone Urine Negative Normal Negative [facility] Comment on above: Performed By: #### E RTRP #### [facility] [address] [place] [address] Leukocytes Esterase Negative Normal Negative [facility] Comment on above: Performed By: #### E RTRP #### [place] [address] Nitrites Urine Negative Normal Negative [facility] Comment on above: Performed By: #### E RTRP #### [facility] [address] [place] [address] pH (U) 6.0 [pH] Normal 5.0-8.0 [facility] Comment on above: Performed By: #### E RTRP #### [facility] [address] [place] [address] Protein (U) [Mass/Vol] Negative Normal Negative [facility] Comment on above: Performed By: #### E RTRP #### [place] [address] Specific [place], Ur 1.004 Normal 1.005-1 .03 0 [facility] Comment on above: Performed By: #### E RTRP #### [facility] [address] [place] [address] Urobilinogen,Ur 0.2 EU/dL Normal 0.2-1.0 [facility] Comment on above: Performed By: #### E RTRP #### [facility] [address] [place] [address] Urine Drug Screenon 12-09-19 20 Urine Alcohol <11 Normal 0-11 [facility] Comment on above: Performed By: #### U RIN2 #### [facility] [address] [place], [place] [address] Urine Amphetamine Negative Normal NEGATIVE [facility] Comment on above: Performed By: #### U RIN2 #### [facility] [address] [place], [place] [address] Urine Barbiturates Negative Normal NEGATIVE [facility] Comment on above: Performed By: #### U RIN2 #### [facility] [address] [place], [place] [address] Urine Benzodiazepine Negative Normal NEGATIVE [facility] Comment on above: Performed By: #### U RIN2 #### [facility] [address] [place], [place] [address] Urine Cocaine Metab Negative Normal NEGATIVE [facility] Comment on above: Performed By: #### U RIN2 #### [facility] [address] [place], [place] [address] Urine Opiates Negative Normal NEGATIVE [facility] Comment on above: Performed By: #### U RIN2 #### [facility] [address] [place], [place] [address] Urine Oxycodone Negative Normal NEGATIVE [facility] Comment on above: Performed By: #### U RIN2 #### [facility] [address] [place], [place] [address] Urine PCP Negative Normal NEGATIVE [facility] Comment on above: Result Comment: Test Cutoff Unit Amphetamines 1000 ng/mL Barbiturates 200 ng/mL Benzodiazepines 200 ng/mL Cannabinoids 50 ng/mL Cocaine 300 ng/mL Opiates 300 ng/mL Oxycodone 100 ng/mL Phencyclidine 25 ng/mL Reference Range: Negative at cutoff threshold Immunoassay screen only. Cross reactivity with other substances can occur with immunoassay screening. Detection of any drug(s) in this urine toxicology panel is presumptive only. These tests are for medical purposes only and should not be used for compliance monitoring, legal, or forensic use. In clinical settings, confirmatory testing is at the practitioner?s discretion.1 If clinically indicated, confirmation by high specificity, quantitative methodology may be requested on the same specimen through the laboratory at ([phone]) if contacted within 48 hours of initial 1. Substance Abuse and Mental Health Services Administration (2012). Clinical Drug Testing in Primary Care Technical Assistance Publication Series 32. Department of Health and Human Services, [place], p.10. Performed By: #### U RIN2 #### [facility] [address] [place], [place] [address] Urine THC Negative Normal NEGATIVE [facility] Comment on above: Performed By: #### U RIN2 #### [facility] [address] [place], [place] [address] Venous Blood Gason 0 Base Excess -5.6 mEq/L Low -3.0-3.0 [facility] Comment on above: Performed By: #### E RTRP #### [facility] [address] [place] [address] HCO3 (Bld) [Moles/Vol] 20.8 mmol/L Low 21.0-30.0 [facility] Comment on above: Performed By: #### E RTRP #### [facility] [address] [place] [address] PCO2 Venous 48.1 mm Hg Normal 40.6-60.0 [facility] Comment on above: Performed By: #### E RTRP #### [facility] [address] [place] [address] pH Venous 7.260 Low 7.320-7.43 0 [facility] Comment on above: Performed By: #### E RTRP #### [facility] [address] [place], [place] [address] PO2 Venous 44.6 mm Hg High 15.9-37.5 [facility] Comment on above: Performed By: #### E RTRP #### [facility] [address] [place] [address] XR CHEST 1V FRONTALon 2019 XR CHEST 1V FRONTAL Final Report DATE OF EXAM: Dec 09 2019 8:49PM [id number] - XR CHEST 1V FRONTAL / PROCEDURE REASON: Shortness of breath Physician Interpretation EXAMINATION: CHEST RADIOGRAPH (SINGLE VIEW AP OR PA) CLINICAL HISTORY: Shortness of breath MQ: XC1_5 Comparison: 12/09/2019 at 11:40 AM RESULT: Lines, tubes, and devices: There has been placement of an endotracheal tube whose tip is 5 cm above the deondre. There has been placement of a esophagogastric tube whose tip is below the left hemidiaphragm. Lungs and pleura: There has been development of diffuse pulmonary edema since the previous exam. Cardiomediastinal silhouette: Stable Other: . IMPRESSION: New diffuse pulmonary edema. Support lines as discussed. Gill Box Fixer: SHIRA Transcribe Date/Time: Dec 09 2019 8:50P Dictated by : SAKSHI DUARTE MD This examination was interpreted and the report reviewed and electronically signed by: SAKSHI DUARTE MD on Dec 09 2019 8:51PM EST Normal [facility] XR CHEST 1V FRONTAL PORTon 0 12-09-2019 XR CHEST 1V FRONTAL PORT Final Report DATE OF EXAM: Dec 09 2019 1:55PM [id number] - XR CHEST 1V FRONTAL PORT / PROCEDURE REASON: Shortness of breath Physician Interpretation EXAMINATION: CHEST RADIOGRAPH (PORTABLE SINGLE VIEW AP) Exam Date/Time: 12/09/2019 1:55 PM CLINICAL HISTORY: Shortness of breath MQ: XCPR_5 Comparison: 03/18/2019 RESULT: Lines, tubes, and devices: None. Lungs and pleura: Lungs are clear of active infiltrates. Cardiomediastinal silhouette: Stable cardiomediastinal silhouette. Other: . IMPRESSION: No acute process is seen. Gill Box Fixer: SHIRA Transcribe Date/Time: Dec 09 2019 1:57P Dictated by : SAKSHI DUARTE MD This examination was interpreted and the report reviewed and electronically signed by: SAKSHI DUARTE MD on Dec 09 2019 1:58PM EST Normal [facility] Daily Progress Note-Cardiolo gyon 10-12-2019 Daily Progress Note-Cardiology Service: Cardiology Subjective Data: NATALIE GERBER is a 59 year old Male who is Hospital Day # 5. Additional Information: He feels okay this morning. His chest pain has resolved. Objective Data: Objective Information: T PRBPSpO2 [id number]/6695% Date/Time10/11 4:005 4: 4:005 4: 4:00 Range(35.7C - 36.6C ) (63 - 77 ) (17 - 20 ) (128 - 178 )/ (60 - 89 ) (94% - 98% ) Pain reported at 10/10 20:00: 4 = Moderate Physical Exam: Constitutional: Well developed, awake/alert/oriented Eyes: Conjunctiva normal Head/Neck: No carotid bruits, no thyromegaly Respiratory/Thorax: Lungs are clear to auscultation Cardiovascular: Regular, rate and rhythm, no murmurs present. No S3 or S4. Gastrointestinal: Markedly obese. No apparent tenderness. Genitourinary: Deferred Extremities: Right pedal pulse present right groin site looks fine with no significant hematoma. Neurological: No focal deficits Psychological: Mood is normal Skin: Warm and dry, no lesions, no rashes Radiology Results: Results: Conclusion: CONCLUSIONS: 1. Luminal irregularities in left main Luminal irregularities in LAD Luminal irregularities in left circumflex Luminal irregularitiesin small nondominant RCA Left dominant coronary artery system LVEDP 25 mmHg with no significant gradient across aortic valve EF 65% based on echocardiogram. ____ CPT Codes: Left Heart Cath Coronary angio w/wo ventriculography (LHC)-31369; Moderate Sedation Services initial 15 minutes patient >5 years-41085; Moderate Sedation Services 1st additional 15 minutes patient >5 years-459[address]; Moderate Sedation Services 2nd additional 15 minutes patient >5 years-10893; Moderate Sedation Services 3rd additional 15 minutes patient >5 years-25391; Moderate Sedation Services 4th additional 15 minutes patient >5 years-57487; Moderate Sedation Services 5th additional 15 minutes patient >5 years-83273; Complicated/Unusual Procedure-MOD22 ICD 10 Codes: I20.0-Unstable angina [id number] Servando Hernández MD Performing Physician cc Report to: [id number] Amrit Sullivan MD, [facility] cc Report to: x cc Report to: x Final Cardiac Catheterization Lab Procedures [Oct 11 2019 3:18PM] Assessment and Plan: Assessment: 1. Chest pain. Cardiac catheterization showed essentially normal coronary arteries. The patient is cleared for discharge for outpatient evaluation and follow-up. His groin site looks fine with no significant hematoma. Electronic Signatures: Amrit Sullivan) (Signed 12-Oct-2019 07:39) Authored: Service, Subjective Data, Objective Data, Assessment and Plan, Signature/Cosignature/Attest ation Last Updated: 12-Oct-2019 07:39 by Amrit Sullivan) Normal [facility] Daily Progress Note-General Internal Medicineon 10-11-2019 Daily Progress Note-General Internal Medicine Service: General Internal Medicine Subjective Data: NATALIE GERBER is a 59 year old Male who is Hospital Day # 4. Objective Data: Objective Information: T PRBPSpO2 [id number]/8194% Date/Time10/10 12: 12: 12: 12: 12:00 Range(35.7C - 36.4C ) (63 - 79 ) (17 - 20 ) (120 - 154 )/ (56 - 81 ) (94% - 97% ) Pain reported at 10/10 10:42: 4 = Moderate T PRBPSpO2 [id number]/8194% Date/Time10/10 12: 12: 12: 12: 12:00 Range(35.7C - 36.4C ) (63 - 79 ) (17 - 20 ) (120 - 154 )/ (56 - 81 ) (94% - 97% ) Physical Exam: Constitutional: Obese, awake/alert/oriented x3, no distress, alert and cooperative Eyes: PERRL, EOMI, clear sclera ENMT: mucous membranes moist, no apparent injury, no lesions seen Head/Neck: Neck supple, no apparent injury, thyroid without mass or tenderness, No JVD, trachea midline, no bruits Respiratory/Thorax: CTAB, no wheeze or rhonchi Cardiovascular: Regular rate and rhythm Gastrointestinal: Nondistended, soft, non-tender, no rebound tenderness or guarding, no masses palpable, no organomegaly, +BS, no bruits Genitourinary: Deferred Musculoskeletal: ROM intact, no joint swelling, normal strength Extremities: +1 dependent edema bilaterally Neurological: alert and oriented x3, intact senses, motor, response and reflexes, normal strength Breast: No masses, tenderness, no discharge or discoloration Lymphatic: No significant lymphadenopathy Psychological: Appropriate mood and behavior Skin: Warm and dry, no lesions, no rashes Medication: Medications: Continuous Medications ---- No continuous medications are active Scheduled Medications ---- 1. Aspirin Enteric Coated: 81 mg Oral Daily 2. Carvedilol: 12.5 mg Oral 2 Times a Day 3. Citalopram (CELEXA): 20 mg Oral Daily 4. Clopidogrel: 75 mg Oral Daily 5. Furosemide: 20 mg Oral Daily 6. Levothyroxine: 25 microgram(s) Oral Daily 7. Lisinopril: 10 mg Oral Daily 8. Methylphenidate: 20 mg Oral 2 Times a Day 9. Pantoprazole: 40 mg Oral Daily 10. Perflutren Lipid Microsphere (Activated) 1.3 mL / NaCL 0.9% T.V. 10 mL Injectable: 0.5 mL IntraVenous Push Once 11. QUEtiapine: 100 mg Oral At Bedtime 12. Simvastatin: 40 mg Oral At Bedtime PRN Medications ---- 1. Acetaminophen: 650 mg Oral Every 4 Hours 2. hydrALAZINE (APRESOLINE) Injectable: 10 mg IntraVenous Push Every 6 Hours 3. Morphine Injectable: 4 mg IntraVenous Push Every 5 Minutes 4. Nitroglycerin SubLingual: 0.4 mg SubLingual Every 5 Minutes 5. oxyCODONE Immediate Release: 5 mg Oral Every 6 Hours Conditional Medication Orders ---- 1. Perflutren Lipid Microsphere (Activated) 1.3 mL / NaCL 0.9% T.V. 10 mL Injectable: 0.5 mL IntraVenous Push Once Recent Lab Results: Results: CBC: 10/08/2019 14:24 \\ Hgb / \\ 11.4 L / WBC Plt 9.8 267 / Hct \\ / 38.0 L \\ RBC: 4.18 L MCV: 91 Neutrophil %: 73.9 BMP: 10/08/2019 13:56 NA+ Cl- BUN / 136 101 15 / ---- Glucose 112 H K+ HCO3- Creat \\ 4.1 26 0.64 \\ Calcium : 9.7 Anion Gap : 13 Coagulation: 10/08/2019 13:56 PT / 10.7 / -------< INR < 1.0 PTT\\ \\ I have reviewed these laboratory results: Lipid Panel 09-Oct-2019 05:25:00 ResultValue Cholesterol, Serum 130 . AGE DESIRABLE BORDERLINE HIGH HIGH 0-19 Y 0 - 169 170 - 199 >/= 200 20-24 Y 0 - 189 190 - 224 >/= 225 >24 Y 0 - 199 200 - 239 >/= 240 All ranges are based on fasting samp HDL Cholesterol, Serum 31.8 . AGE VERY LOW LOW NORMAL HIGH 0-19 Y < 35 < 40 40-45 ---- 20-24 Y ---- < 40 >45 ---- >24 Y ---- < 40 40-60 >60 . A Cholesterol/HDL Ratio 4.1 REF VALUES DESIRABLE < 3.4 HIGH RISK > 5.0 LDL, Level 73 . NEAR BORD AGE DESIRABLE OPTIMAL HIGH HIGH VERY HIGH 0-19 Y 0 - 109 --- 110-129 >/= 130 ---- 20-24 Y 0 - 119 --- 120-159 >/= 160 ---- >24 Y 0 - VLDL, Serum 25 Triglycerides, Serum 124 . AGE DESIRABLE BORDERLINE HIGH HIGH VERY HIGH 0 D-90 D 19 - 174 ---- ---- ---- 91 D- 9 Y 0 - 74 75 - 99 >/= 100 ---- 10-19 Y 0 - 89 90 - 129 >/= 130 ---- Hemoglobin A1C, Level 09-Oct-2019 05:25:00 ResultValue Estimated Average Glucose 131 Hemoglobin A1C, Level 6.2 Diagnosis of Diabetes-Adults Non-Diabetic: < or = 5.6% Increased risk for developing diabetes: 5.7-6.4% Diagnostic of diabetes: > or = 6.5% . Monitoring of Diabetes Age (y) Therapeutic Goal (%) Adults: >1 Troponin I, Serum Trending View [id number] 19:53:00 08-Oct-2019 16:45:00 Troponin I, Serum<0.02 <0.02 Coronavirus 2019 by PCR 08-Oct-2019 17:20:00 ResultValue Lab Comment: Called- RB to [facility], 10/08/2019 18:51 Fluid Source Nasal, Nasopharyngeal Coronavirus 2019,PCR NOT DETECTED Reference Range: Not Detected This assay is designed to detect the RdRp gene of SARS-CoV-2 via nucleic acid amplification. A Not Detected result does not preclude COVID-19 infection since the adequacy of sample collection and/or lo I have reviewed these laboratory results: Complete Blood Count 10-Oct-2019 10:57:00 ResultValue Lab Comment: pt refused morning labs White Blood Cell Count 8.2 Nucleated Erythrocyte Count 0.0 Red Blood Cell Count 4.13 L HGB 11.2 L HCT 37.8 L MCV 92 MCHC 29.6 L PLT 229 RDW-CV 14.9 H Comprehensive Metabolic Panel 10-Oct-2019 10:57:00 ResultValue Lab Comment: pt refused morning labs Glucose, Serum 133 H NA 138 K 4.2 CL 108 H Bicarbonate, Serum 27 Anion Gap, Serum 7 L BUN 10 CREAT 0.62 GFR-Non >60 GFR- >60 Calcium, Serum 8.8 ALB 3.8 ALKP 145 H T Pro 6.6 T Bili 0.4 Alanine Aminotransferase, Serum 8 L Aspartate Transaminase, Serum 12 Lipid Panel 09-Oct-2019 05:25:00 ResultValue Cholesterol, Serum 130 . AGE DESIRABLE BORDERLINE HIGH HIGH 0-19 Y 0 - 169 170 - 199 >/= 200 20-24 Y 0 - 189 190 - 224 >/= 225 >24 Y 0 - 199 200 - 239 >/= 240 All ranges are based on fasting samp HDL Cholesterol, Serum 31.8 . AGE VERY LOW LOW NORMAL HIGH 0-19 Y < 35 < 40 40-45 ---- 20-24 Y ---- < 40 >45 ---- >24 Y ---- < 40 40-60 >60 . A Cholesterol/HDL Ratio 4.1 REF VALUES DESIRABLE < 3.4 HIGH RISK > 5.0 LDL, Level 73 . NEAR BORD AGE DESIRABLE OPTIMAL HIGH HIGH VERY HIGH 0-19 Y 0 - 109 --- 110-129 >/= 130 ---- 20-24 Y 0 - 119 --- 120-159 >/= 160 ---- >24 Y 0 - VLDL, Serum 25 Triglycerides, Serum 124 . AGE DESIRABLE BORDERLINE HIGH HIGH VERY HIGH 0 D-90 D 19 - 174 ---- ---- ---- 91 D- 9 Y 0 - 74 75 - 99 >/= 100 ---- 10-19 Y 0 - 89 90 - 129 >/= 130 ---- Hemoglobin A1C, Level 09-Oct-2019 05:25:00 ResultValue Estimated Average Glucose 131 Hemoglobin A1C, Level 6.2 Diagnosis of Diabetes-Adults Non-Diabetic: < or = 5.6% Increased risk for developing diabetes: 5.7-6.4% Diagnostic of diabetes: > or = 6.5% . Monitoring of Diabetes Age (y) Therapeutic Goal (%) Adults: >1 I have reviewed these laboratory results: Complete Blood Count 10-Oct-2019 10:57:00 ResultValue Lab Comment: pt refused morning labs White Blood Cell Count 8.2 Nucleated Erythrocyte Count 0.0 Red Blood Cell Count 4.13 L HGB 11.2 L HCT 37.8 L MCV 92 MCHC 29.6 L PLT 229 RDW-CV 14.9 H Comprehensive Metabolic Panel 10-Oct-2019 10:57:00 ResultValue Lab Comment: pt refused morning labs Glucose, Serum 133 H NA 138 K 4.2 CL 108 H Bicarbonate, Serum 27 Anion Gap, Serum 7 L BUN 10 CREAT 0.62 GFR-Non >60 GFR- >60 Calcium, Serum 8.8 ALB 3.8 ALKP 145 H T Pro 6.6 T Bili 0.4 Alanine Aminotransferase, Serum 8 L Aspartate Transaminase, Serum 12 Assessment and Plan: Additional Dx: Chest pain: Entered Date: 06-Jun-2018 14:15 Chest pain: Entered Date: 29-Dec-2015 04:55 Stroke-like episode: Entered Date: 13-Jul-2015 22:21 History of cholecystectomy: Entered Date: 12-Jul-2015 01:19 Status post bilateral hernia repair: Entered Date: 12-Jul-2015 01:18 History of total left hip replacement: Entered Date: 12-Jul-2015 01:18 H/O spinal fusion: Entered Date: 12-Jul-2015 01:18 Potential for self care deficit: Entered Date: 12-Jul-2015 00:21 Morbid obesity with BMI of 50.0-59.9, adult: Entered Date: 12-Jul-2015 00:20 Chest pain: Entered Date: 06-Aug-2013 14:53 Medical History: Benign essential hypertension: Entered Date: 06-Jun-2018 11:32 Stroke: Entered Date: 15-Nov-2015 16:06 Coronary artery disease: Entered Date: 15-Nov-2015 16:05 Diverticulitis: Entered Date: 15-Nov-2015 16:04 Anemia: Entered Date: 15-Nov-2015 16:04 Pulmonary embolism: Entered Date: 15-Nov-2015 16:04 Surg History: H/O spinal fusion: Entered Date: 12-Jul-2015 01:20 Status post bilateral hernia repair: Entered Date: 12-Jul-2015 01:20 S/P right knee arthroscopy: Entered Date: 12-Jul-2015 01:20 History of total left hip arthroplasty: Entered Date: 12-Jul-2015 01:19 History of cholecystectomy: Entered Date: 12-Jul-2015 01:19 Chronic: Cellulitis of leg: Entered Date: 17-May-2010 21:20 Other Dx/Proc: Stroke: Entered Date: 19-Nov-2011 13:52 Abdominal pain: Entered Date: 03-Oct-2011 11:46 Left heart catheterization: Entered Date: 10-Aug-2009 11:31 Unstable angina/chest pain: Entered Date: 08-Aug-2009 21:29 Chest pain: Entered Date: 08-Aug-2009 17:35 Assessment: 59 year old male with lengthy medical history including [place], CVA, PE, uncontrolled hypertension, obesity; presents to ER with reported chest pain. Review of record patient with cardiac catheterization at [facility] in November 2018, no stents placed. He was discharged from a SNF yesterday due to lack of insurance coverage. Admits since being discharged he has had to move about and care for himself more, likely exacerbating his chest discomfort. Impression 1: Chest Pain Plan for Impression 1: Cardiology Consult, appreciate input Trend Troponin & EKG ASA 324mg given in ED ASA 81mg QD & Plavix Echocardiogram Lipid & HA1c in am Impression 2: Hypertension Plan for Impression 2: Resume home regimen: - Lisinopril 10mg QD - Coreg 6.25mg QD Hydralazine 10mg IV as needed Impression 3: Dyslipidemia Plan for Impression 3: Lipid panel in am Continue Simvastatin 40mg QD Impression 4: Hx of CVA Plan for Impression 4: Resume Plavix 75mg QD Impression 5: Chronic Back Pain Plan for Impression 5: Resume home Percocet Impression 6: Decreased Ambulation Plan for Impression 6: Utilizes rollator PT/OT Reports was scheduled for Lumbar surgery, postponed due to Covid19 Social Work consult for discharge planning Impression 7: Recent SNF Exposure Plan for Impression 7: Covid-19 pending Covid Precautions Plan for Impression 8: Patient fully evaluated on October 08. Patient having symptoms consistent with possible angina. Coreg has been increased from 6.25-12 and half milligrams twice daily because of chest pain and hypertension. Cardiology consultation is pending. Patient is significant deconditioned and will probably require further snf. Plan for Impression 9: Patient fully evaluated on October 09. Still having intermittent chest pain despite medication adjustments. Cardiac catheterization is planned for tomorrow. Plan for Impression 10: Patient fully evaluated on October 10. Patient status post cardiac catheterization without significant need for angioplasty. Continue to monitor overnight with possible discharge to rehab tomorrow. Chest pain is improved Electronic Signatures: Chuy Mc) (Signed 11-Oct-2019 17:12) Authored: Service, Subjective Data, Objective Data, Assessment and Plan, Signature/Cosignature/Attest ation Last Updated: 11-Oct-2019 17:12 by Chuy Mc) Normal [facility] Left Heart Catheterizationon 10-11-2019 Left Heart Catheterization [facility], [facility], [address], [place], [place] [address] Cardiovascular Catheterization Report Patient Name: NATALIE Bah [id number] [facility] Betty GERBER Physician: Study Date: 10/11/2019 Verifying Physician: [id number] Servando Hernández MD MRN/PID: [id number] Marine Drafter: Accession/Order#: [id number] Fellow: Date of : 1960 Fellow: Gender: M Referring Physician: Amrit Sullivan MD, [facility] Admit Date: Referring Physician: rahul Surgeon: Referring Physician: x Study: Left Heart Catheterization Indications: NATALIE GERBER is a 60 year old male who presents with dyslipidemia, hypertension and obesity. New onset angina <=2 months, with a chest pain assessment of typical angina. Study performed as an urgent cath procedure. Appropriate Use Criteria: Unstable angina with high risk score; AUC score = 9. Medical History: Stress test performed: No. CTA performed: No. Agatston accessed: No. LVEF Assessed: Yes. LVEF = 65%. Procedure Description Comments: Informed consent was obtained. Patient was brought to the [facility] and prepped and draped in usual fashion. Under moderate sedation and after giving 2% local lidocaine, will try to obtain a right radial access. However, given by the use of ultrasound because of the very small size of the radial artery, we had to switch approach to right femoral. 2% local lidocaine was given in the right groin and using micropuncture technique we obtain access in the right femoral artery. Using 5 [place] JL4 and JR4 catheters, coronary angiography and left heart catheterization were performed. Manual pressure was used to obtain hemostasis in the right groin access site. Report was given to Dr. Sullivan Patient tolerated the procedure well and transferred to the recovery area for further care and monitoring. Coronary Angiography: The coronary circulation is left dominant. Coronary Angiography Comments: Luminal irregularities in left main Luminal irregularities in LAD Luminal irregularities in left circumflex Luminal irregularities in small nondominant RCA Left dominant coronary artery system LVEDP 25 mmHg with no significant gradient across aortic valve EF 65% based on echocardiogram. Coronary Interventions: Hemo Personnel: + +--- + Name Duty + +--- + Servando Hernández MD PROC 1 + +--- + Margarette Schwarz RN PROC SCRUB 1 + +--- + Gerard Perdomo RN PROC CIRC 1 + +--- + Van Sanford RN PROC RECORD 1 + +--- + Sedation Time: + +-- + Sedation Start/End Times Time + +-- + Start 10/11/2019 14:06:10 + +-- + End 10/11/2019 14:47:17 + +-- + Equipment Used: + +------ + Date/Time Description + +------ + 10/11/2019 2:00:54 PM {Diag Wire} [facility] Inire J Wire 0.035" 210 cm - Qty: 1 Each Part #: [id number] + +------ + 10/11/2019 2:00:59 PM {6 Namibian Sheaths} [employer]o 6F cherry gutiérrez (C-[id number]) - Qty: 1 Each Part #: [id number] + +------ + 10/11/2019 2:15:48 PM {Misc} [employer] Femoral Angio Pack 0 - Qty: 1 Each Part #: [id number] + +------ + 10/11/2019 2:15:51 PM {Misc} [employer] Adult Nasal O2 Cannula w/ capnography - Qty: 1 Each Part #: [id number] + +------ + 10/11/2019 2:32:05 PM {5 [place]ian Sheaths} [employer] [place] 5F sheath 10 cm ( L-[id number]) - Qty: 1 Each Part #: [id number] + +------ + 10/11/2019 2:32:10 PM {Misc} [employer] Micropuncture kit 4 FR - Qty: 1 Each Part #: [id number] + +------ + 10/11/2019 2:46:35 PM {5F Expo} Sc[employer]ed EXPO 5F FL4 - Qty: 1 Each Part #: [id number] + +------ + 10/11/2019 2:46:47 PM {5F Expo} Sc[employer]ed EXPO 5F FR4 - Qty: 1 Each Part #: [id number] + +------ + Fluoroscopy Time: + + --------+ X-Ray Summary Fluoro Time: 2.40 min + + --------+ +---------+--------+ Contrast: Dose: +---------+--------+ Isovue: 40.00 ml +---------+--------+ Hemodynamic Pressures: +----+ +-- -------+ +------- ------+------+---------+ Site Date Time Phase Systolic Diastolic ED Mean mmHg Name mmHg mmHg mmHg +----+ +-- -------+ +------- ------+------+---------+ LV 10/11/2019 2:39:04 O2 REST 130 9 25 PM +----+ +-- -------+ +------- ------+------+---------+ LV 10/11/2019 2:39:13 O2 REST 123 10 25 PM +----+ +-- -------+ +------- ------+------+---------+ LVp 10/11/2019 2:39:23 O2 REST 117 18 28 PM +----+ +-- -------+ +------- ------+------+---------+ AOp 10/11/2019 2:39:29 O2 REST 131 83 104 PM +----+ +-- -------+ +------- ------+------+---------+ AO 10/11/2019 2:39:31 O2 REST 137 84 108 PM +----+ +-- -------+ +------- ------+------+---------+ Oxygen Saturation %: + + + Sample Site HB (g/100ml) + + + SYS ART 11.2 + + + SYS CLAIRE 11.2 + + + PUL ART 11.2 + + + PUL CLAIRE 11.2 + + + Complications: No in-lab complications observed. Cardiac Cath Transition of Care Summary: Post Procedure Diagnosis: Nonobstructive coronary artery disease. Blood Loss: Estimated blood loss during the procedure was 5 cc mls. Specimens Removed: Number of specimen(s) removed: none. Recommendations: Maximize medical therapy. Agressive risk factor modification efforts. Lipid lowering agent or Statin therapy. Medical management of coronary artery disease. Aspirin therapy. CONCLUSIONS: 1. Luminal irregularities in left main Luminal irregularities in LAD Luminal irregularities in left circumflex Luminal irregularities in small nondominant RCA Left dominant coronary artery system LVEDP 25 mmHg with no significant gradient across aortic valve EF 65% based on echocardiogram. CPT Codes: Left Heart Cath Coronary angio w/wo ventriculography (LHC)-50762; Moderate Sedation Services initial 15 minutes patient >5 years-20220; Moderate Sedation Services 1st additional 15 minutes patient >5 years-67815; Moderate Sedation Services 2nd additional 15 minutes patient >5 years-66792; Moderate Sedation Services 3rd additional 15 minutes patient >5 years-06204; Moderate Sedation Services 4th additional 15 minutes patient >5 years-39910; Moderate Sedation Services 5th additional 15 minutes patient >5 years-47091; Complicated/Unusual Procedure-MOD22 ICD 10 Codes: I20.0-Unstable angina [id number] Servando Hernández MD Performing Physician cc Report to: [id number] Amrit Sullivan MD, [facility] cc Report to: x cc Report to: x Final Normal [facility] CBCon 10-10-2019 Erythrocyte distribution width (RBC) [Ratio] 14.9 % High 11.5 - 14.5 [facility] Comment on above: Order Comment: pt re fused morning labs Performed By: #### C BC ####[facility] [place] [address] Hematocrit (Bld) [Volume fraction] 37.8 % Low 41.0 - 52.0 [facility] Comment on above: Order Comment: pt re fused morning labs Performed By: #### C BC ####[facility] [place] [address] Hemoglobin (Bld) [Mass/Vol] 11.2 g/dL Low 13.5 - 17.5 [facility] Comment on above: Order Comment: pt re fused morning labs Performed By: #### C BC ####[facility] [place] [address] MCHC (RBC) [Mass/Vol] 29.6 g/dL Low 32.0 - 36.0 [facility] Comment on above: Order Comment: pt re fused morning labs Performed By: #### C BC ####[facility] [place] [address] MCV (RBC) [Entitic vol] 92 fL Normal 80 - 100 [facility] Comment on above: Order Comment: pt re fused morning labs Performed By: #### C BC ####[facility] [place] [address] Nucleated RBC/100 WBC (Bld) [Ratio] 0.0 /100 WBC Normal 0.0 - 0.0 [facility] Comment on above: Order Comment: pt re fused morning labs Performed By: #### C BC ####[facility] [place] [address] Platelets (Bld) [#/Vol] 229 10*3/uL Normal 150 - 450 [facility] Comment on above: Order Comment: pt re fused morning labs Performed By: #### C BC ####[facility] [place] [address] RBC (Bld) [#/Vol] 4.13 x10E12/L Low 4.50 - 5.90 [facility] Comment on above: Order Comment: pt re fused morning labs Performed By: #### C BC ####[facility] [place] [address] WBC (Bld) [#/Vol] 8.2 10*3/uL Normal 4.4 - 11.3 [facility] Comment on above: Order Comment: pt re fused morning labs Performed By: #### C BC ####[address] [address] COMPREHENSIVE PANELon 2019 Albumin [Mass/Vol] 3.8 g/dL Normal 3.4 - 5.0 [facility] Comment on above: Order Comment: pt re fused morning labs Performed By: #### C MP ####[facility] [place] [address] ALP [Catalytic activity/Vol] 145 U/L High 33 - 120 [facility] Comment on above: Order Comment: pt re fused morning labs Performed By: #### C MP ####[facility] [place] [address] ALT [Catalytic activity/Vol] 8 U/L Low 10 - 52 [facility] Comment on above: Order Comment: pt re fused morning labs Result Comment: Susan ents treated with Sulfasalazine may generate falsely decreased results for ALT. Performed By: #### C MP ####[facility] [place] [address] Anion gap [Moles/Vol] 7 mmol/L Low 10 - 20 [facility] Comment on above: Order Comment: pt re fused morning labs Performed By: #### C MP ####[facility] [place] [address] AST [Catalytic activity/Vol] 12 U/L Normal 9 - 39 [facility] Comment on above: Order Comment: pt re fused morning labs Performed By: #### C MP ####[address] [place] [address] Bilirubin [Mass/Vol] 0.4 mg/dL Normal 0.0 - 1.2 [facility] Comment on above: Order Comment: pt re fused morning labs Performed By: #### C MP ####[address] [place] [address] Calcium [Mass/Vol] 8.8 mg/dL Normal 8.6 - 10.3 [facility] Comment on above: Order Comment: pt re fused morning labs Performed By: #### C MP ####[address] [place] [address] Chloride [Moles/Vol] 108 mmol/L High 98 - 107 [facility] Comment on above: Order Comment: pt re fused morning labs Performed By: #### C MP ####[address] [address] Creatinine [Mass/Vol] 0.62 mg/dL Normal 0.50 - 1.30 [facility] Comment on above: Order Comment: pt re fused morning labs Performed By: #### C MP ####[address] [place] [address] GFR- AM. >60 Normal >60 [facility] Comment on above: Order Comment: pt re fused morning labs Result Comment: CALC ULATIONS OF ESTIMATED GFR ARE PERFORMED USING THE MDRD STUDY EQUATION FOR THE IDMS-TRACEABLE CREATININE METHODS. CLIN CHEM 2007;53:766-72 Performed By: #### C MP ####[address] [place] [address] GFR-NON AM. >60 Normal >60 [facility] Comment on above: Order Comment: pt re fused morning labs Performed By: #### C MP ####[address] [place] [address] Glucose [Mass/Vol] 133 mg/dL High 74 - 99 [facility] Comment on above: Order Comment: pt re fused morning labs Performed By: #### C MP ####[address] [place] [address] HCO3 (Bld) [Moles/Vol] 27 mmol/L Normal 21 - 32 [facility] Comment on above: Order Comment: pt re fused morning labs Performed By: #### C MP ####[facility] [place] [address] Potassium [Moles/Vol] 4.2 mmol/L Normal 3.5 - 5.3 [facility] Comment on above: Order Comment: pt re fused morning labs Performed By: #### C MP ####[address] [address] Protein [Mass/Vol] 6.6 g/dL Normal 6.4 - 8.2 [facility] Comment on above: Order Comment: pt re fused morning labs Performed By: #### C MP ####[address] [address] Sodium [Moles/Vol] 138 mmol/L Normal 136 - 145 [facility] Comment on above: Order Comment: pt re fused morning labs Performed By: #### C MP ####[address] [address] Urea nitrogen [Mass/Vol] 10 mg/dL Normal 6 - 23 [facility] Comment on above: Order Comment: pt re fused morning labs Performed By: #### C MP ####[address] [address] Consult-Cardiologyon 020 Consult-Cardiology Service: Service: Cardiology Consult: Consult requested by (Attending Name): Dr. Uziel Mc Reason: chest pain History of Present Illness: HPI: NATALIE GERBER is a 59 year old Male who presents for chest pain. The patient's chest discomfort as a constant pressure-like sensation over the left anterior chest area. Initially it was associated with shortness of breath. It does not radiate. It is not positional. It is not pleuritic. He has cardiac history according to the patient is significant that he presented 2008 to [facility] with a myocardial infarction. He had cardiac catheterization. It was recommended that he have medical therapy. He underwent cardiac catheterization here at [facility] in 2014. At that time he was noted to have mild coronary artery disease. He did have a 50% stenosis in a nondominant right coronary artery. There was mild disease in the left system. He has had multiple evaluations in other hospitals. However at this time we cannot access the system to review all the records. Cardiac risk factors include a history of hypertension. He denies history of diabetes. No smoking history. Strong family history of premature coronary artery disease involving multiple family members including mother father and sister. He reports high cholesterol levels and takes cholesterol medications. He has had a cholecystectomy. He has chronic back pain. Recently discharged from a rehab center. He tells me he is scheduled for back surgery. Review Family/Social History and ROS: Social History: Smoking Status: never smoker Constitutional: POSITIVE: Malaise Eyes: NEGATIVE: Vision Loss/ Change ENMT: NEGATIVE: Nasal Discharge Respiratory: POSITIVE: Shortness of Breath Cardiac: POSITIVE: Chest Pain, Dyspnea on Exertion; NEGATIVE: Orthopnea, Palpitations, Syncope Gastrointestinal: NEGATIVE: Nausea, Vomiting Genitourinary: NEGATIVE: Hematuria Musculoskeletal: COMMENTS: Chronic back pain Neurological: NEGATIVE: Dizziness, Confusion Psychiatric: POSITIVE: Anxiety; NEGATIVE: Mood Changes Skin: NEGATIVE: Rash All Other Systems: All other systems reviewed and are negative Allergies: Nubain: Anxiety, Hives/Urticaria Toradol IV/IM: Hives/Urticaria Fish: Hives/Urticaria Objective: Objective Information: T PRBPSpO2 [id number]/7096% Date/Time10/09 8: 8: 8: 8: 8:00 Range(35.8C - 36.9C ) (75 - 91 ) (18 - 20 ) (95 - 178 )/ (57 - 93 ) (96% - 98% ) Highest temp of 36.9 C was recorded at 10/09 0:00 Physical Exam: Constitutional: Well developed, awake/alert/oriented Eyes: Conjunctiva normal Head/Neck: No carotid bruits, no thyromegaly Respiratory/Thorax: Lungs are clear to auscultation Cardiovascular: Regular, rate and rhythm, no murmurs present. No S3 or S4. Gastrointestinal: Markedly obese. No apparent tenderness. Genitourinary: Deferred Extremities: Neurolyse edema. Pulses are difficult to palpate. Neurological: No focal deficits Psychological: Mood is normal Skin: Warm and dry, no lesions, no rashes Medications: Medications: Continuous Medications ---- No continuous medications are active Scheduled Medications ---- 1. Aspirin Enteric Coated: 81 mg Oral Daily 2. Carvedilol: 12.5 mg Oral 2 Times a Day 3. Citalopram (CELEXA): 20 mg Oral Daily 4. Clopidogrel: 75 mg Oral Daily 5. Furosemide: 20 mg Oral Daily 6. Levothyroxine: 25 microgram(s) Oral Daily 7. Lisinopril: 10 mg Oral Daily 8. Methylphenidate: 20 mg Oral 2 Times a Day 9. Pantoprazole: 40 mg Oral Daily 10. Perflutren Lipid Microsphere (Activated) 1.3 mL / NaCL 0.9% T.V. 10 mL Injectable: 0.5 mL IntraVenous Push Once 11. QUEtiapine: 100 mg Oral At Bedtime 12. Simvastatin: 40 mg Oral At Bedtime PRN Medications ---- 1. Acetaminophen: 650 mg Oral Every 4 Hours 2. hydrALAZINE (APRESOLINE) Injectable: 10 mg IntraVenous Push Every 6 Hours 3. Morphine Injectable: 4 mg IntraVenous Push Every 5 Minutes 4. Nitroglycerin SubLingual: 0.4 mg SubLingual Every 5 Minutes 5. oxyCODONE Immediate Release: 5 mg Oral Every 6 Hours Conditional Medication Orders ---- 1. Perflutren Lipid Microsphere (Activated) 1.3 mL / NaCL 0.9% T.V. 10 mL Injectable: 0.5 mL IntraVenous Push Once Recent Lab Results: Results: I have reviewed these laboratory results: Lipid Panel 09-Oct-2019 05:25:00 ResultValue Cholesterol, Serum 130 . AGE DESIRABLE BORDERLINE HIGH HIGH 0-19 Y 0 - 169 170 - 199 >/= 200 20-24 Y 0 - 189 190 - 224 >/= 225 >24 Y 0 - 199 200 - 239 >/= 240 All ranges are based on [facility] HDL Cholesterol, Serum 31.8 . AGE VERY LOW LOW NORMAL HIGH 0-19 Y < 35 < 40 40-45 ---- 20-24 Y ---- < 40 >45 ---- >24 Y ---- < 40 40-60 >60 . A Cholesterol/HDL Ratio 4.1 REF VALUES DESIRABLE < 3.4 HIGH RISK > 5.0 LDL, Level 73 . NEAR BORD AGE DESIRABLE OPTIMAL HIGH HIGH VERY HIGH 0-19 Y 0 - 109 --- 110-129 >/= 130 ---- 20-24 Y 0 - 119 --- 120-159 >/= 160 ---- >24 Y 0 - VLDL, Serum 25 Triglycerides, Serum 124 . AGE DESIRABLE BORDERLINE HIGH HIGH VERY HIGH 0 D-90 D 19 - 174 ---- ---- ---- 91 D- 9 Y 0 - 74 75 - 99 >/= 100 ---- 10-19 Y 0 - 89 90 - 129 >/= 130 ---- Troponin I, Serum Trending View [id number] 19:53:00 08-Oct-2019 16:45:00 08-Oct-2019 13:56:00 Troponin I, Serum<0.02 <0.02 <0.02 Complete Blood Count + Differential 08-Oct-2019 14:24:00 ResultValue White Blood Cell Count 9.8 Nucleated Erythrocyte Count 0.0 Red Blood Cell Count 4.18 L HGB 11.4 L HCT 38.0 L MCV 91 MCHC 30.0 L PLT 267 RDW-CV 14.7 H Neutrophil % 73.9 Immature Granulocytes % 0.7 Lymphocyte % 18.4 Monocyte % 4.7 Eosinophil % 1.8 Basophil % 0.5 Neutrophil Count 7.24 Lymphocyte Count 1.80 Monocyte Count 0.46 Eosinophil Count 0.18 Basophil Count 0.05 Brain Natriuretic Peptide 08-Oct-2019 14:24:00 ResultValue Brain Natriuretic Peptide 19 Basic Metabolic Panel 08-Oct-2019 13:56:00 ResultValue Glucose, Serum 112 H NA 136 K 4.1 CL 101 Bicarbonate, Serum 26 Anion Gap, Serum 13 BUN 15 CREAT 0.64 GFR-Non >60 GFR- >60 Calcium, Serum 9.7 Radiology Results: Results: Conclusion: CONCLUSIONS: 1. The left ventricular systolic function is normal with a 65-70% estimated ejection fraction. 2. Spectral Doppler shows an abnormal pattern of left ventricular diastolic filling. 3. Mild left ventricular hypertrophy. 4. Mild diastolic dysfunction. 5. Mild thickening of the pericardium. 6. Definity study confirms normal left ventricular function without wall motion abnormalities. QUANTITATIVE DATA SUMMARY: 2D MEASUREMENTS: Normal Ranges: LAs: 4.31 cm (2.7-4.0cm) IVSd: 1.20 cm (0.6-1.1cm) LVPWd: 0.93 cm (0.6-1.1cm) LVIDd: 4.95 cm (3.9-5.9cm) LVIDs: 3.18 cm LV Mass Index: 80.1 g/m2 LV % FS 35.8 % M-MODE MEASUREMENTS: Normal Ranges: Ao Root: 2.80 cm (2.0-3.7cm) LAs: 4.88 cm (2.7-4.0cm) LV SYSTOLIC FUNCTION BY 2D PLANIMETRY (MOD): Normal Ranges: EF-A4C View: 83.1 % (>55%) EF-A2C View: 75.6 % EF-Biplane: 78.6 % LV DIASTOLIC FUNCTION: Normal Ranges: MV Peak E: 0.70 m/s (0.7-1.2 m/s) MV Peak A: 0.83 m/s (0.42-0.7 m/s) E/A Ratio: 0.84 (1.0-2.2) MV e' 0.06 m/s (>8.0) MV A Dur: 80.74 msec E/e' Ratio: 10.80 (<8.0) MV DT: 189 msec (150-240 msec) MITRAL VALVE: Normal Ranges: MV DT: 189 msec (150-240msec) AORTIC VALVE: Normal Ranges: AoV Vmax: 1.42 m/s (<1.7m/s) AoV Peak P.1 mmHg (<20mmHg) LVOT Max Gina: 0.99 m/s (<1.1m/s) LVOT VTI: 18.59 cm LVOT Diameter: 2.26 cm (1.8-2.4cm) AoV Area,Vmax: 2.80 cm2 (2.5-4.5cm2) RIGHT VENTRICLE: RV s' 0.13 m/s PULMONIC VALVE: Normal Ranges: PV Max Gina: 1.3 m/s (0.6-0.9m/s) PV Max P.0 mmHg [id number] Amrit Sullivan MD, [facility] Electronically signed on 10/10/2019 at 8:32:43 AM Final Echocardiogram [Oct 10 2019 8:32AM] Assessment: 1. Chest pain. Unclear etiology. Coronary artery disease documented by cardiac catheterization in 2015. And ongoing chest pain. We will plan cardiac catheterization tomorrow since imaging studies may be very difficult on this patient. 2. Hypertension. Blood pressures are improved on current medical therapy. Consult Signoff: Consult Order ID: [id number] Electronic Signatures: Amrit Sullivan () (Signed 10-Oct-2019 08:56) Authored: Service, History of Present Illness, Review Family/Social History and ROS, Allergies, Objective, Assessment/Recommendations, Signature/Cosignature/Attest ation Last Updated: 10-Oct-2019 08:56 by Amrit Sullivan) [facility] Daily Progress Note-General Internal Medicineon 10-10-2019 Daily Progress Note-General Internal Medicine Service: General Internal Medicine Subjective Data: NATALIE GERBER is a 59 year old Male who is Hospital Day # 3. Objective Data: Objective Information: T PRBPSpO2 [id number]/7997% Date/Time10/10 11: 12: 12 12: 12:00 Range(35.6C - 36.9C ) (67 - 91 ) (18 - 20 ) (95 - 178 )/ (57 - 93 ) (96% - 98% ) Highest temp of 36.9 C was recorded at 10/09 0:00 Pain reported at 10/09 15:06: 8 = Severe T PRBPSpO2 [id number]/7997% Date/Time10/10 11: 12: 12: 12: 12:00 Range(35.6C - 36.9C ) (67 - 91 ) (18 - 20 ) (95 - 178 )/ (57 - 93 ) (96% - 98% ) Highest temp of 36.9 C was recorded at 10/09 0:00 Physical Exam: Constitutional: Obese, awake/alert/oriented x3, no distress, alert and cooperative Eyes: PERRL, EOMI, clear sclera ENMT: mucous membranes moist, no apparent injury, no lesions seen Head/Neck: Neck supple, no apparent injury, thyroid without mass or tenderness, No JVD, trachea midline, no bruits Respiratory/Thorax: CTAB, no wheeze or rhonchi Cardiovascular: Regular rate and rhythm Genitourinary: Deferred Musculoskeletal: ROM intact, no joint swelling, normal strength Extremities: +1 dependent edema bilaterally Skin: Warm and dry, no lesions, no rashes Medication: Medications: Continuous Medications ---- No continuous medications are active Scheduled Medications ---- 1. Aspirin Enteric Coated: 81 mg Oral Daily 2. Carvedilol: 12.5 mg Oral 2 Times a Day 3. Citalopram (CELEXA): 20 mg Oral Daily 4. Clopidogrel: 75 mg Oral Daily 5. Furosemide: 20 mg Oral Daily 6. Levothyroxine: 25 microgram(s) Oral Daily 7. Lisinopril: 10 mg Oral Daily 8. Methylphenidate: 20 mg Oral 2 Times a Day 9. Pantoprazole: 40 mg Oral Daily 10. Perflutren Lipid Microsphere (Activated) 1.3 mL / NaCL 0.9% T.V. 10 mL Injectable: 0.5 mL IntraVenous Push Once 11. QUEtiapine: 100 mg Oral At Bedtime 12. Simvastatin: 40 mg Oral At Bedtime PRN Medications ---- 1. Acetaminophen: 650 mg Oral Every 4 Hours 2. hydrALAZINE (APRESOLINE) Injectable: 10 mg IntraVenous Push Every 6 Hours 3. Morphine Injectable: 4 mg IntraVenous Push Every 5 Minutes 4. Nitroglycerin SubLingual: 0.4 mg SubLingual Every 5 Minutes 5. oxyCODONE Immediate Release: 5 mg Oral Every 6 Hours Conditional Medication Orders ---- 1. Perflutren Lipid Microsphere (Activated) 1.3 mL / NaCL 0.9% T.V. 10 mL Injectable: 0.5 mL IntraVenous Push Once Recent Lab Results: Results: CBC: 10/08/2019 14:24 \\ Hgb / \\ 11.4 L / WBC Plt 9.8 267 / Hct \\ / 38.0 L \\ RBC: 4.18 L MCV: 91 Neutrophil %: 73.9 BMP: 10/08/2019 13:56 NA+ Cl- BUN / 136 101 15 / ---- Glucose 112 H K+ HCO3- Creat \\ 4.1 26 0.64 \\ Calcium : 9.7 Anion Gap : 13 Coagulation: 10/08/2019 13:56 PT / 10.7 / -------< INR < 1.0 PTT\\ \\ I have reviewed these laboratory results: Lipid Panel 09-Oct-2019 05:25:00 ResultValue Cholesterol, Serum 130 . AGE DESIRABLE BORDERLINE HIGH HIGH 0-19 Y 0 - 169 170 - 199 >/= 200 20-24 Y 0 - 189 190 - 224 >/= 225 >24 Y 0 - 199 200 - 239 >/= 240 All ranges are based on fasting [facility] HDL Cholesterol, Serum 31.8 . AGE VERY LOW LOW NORMAL HIGH 0-19 Y < 35 < 40 40-45 ---- 20-24 Y ---- < 40 >45 ---- >24 Y ---- < 40 40-60 >60 . A Cholesterol/HDL Ratio 4.1 REF VALUES DESIRABLE < 3.4 HIGH RISK > 5.0 LDL, Level 73 . NEAR BORD AGE DESIRABLE OPTIMAL HIGH HIGH VERY HIGH 0-19 Y 0 - 109 --- 110-129 >/= 130 ---- 20-24 Y 0 - 119 --- 120-159 >/= 160 ---- >24 Y 0 - VLDL, Serum 25 Triglycerides, Serum 124 . AGE DESIRABLE BORDERLINE HIGH HIGH VERY HIGH 0 D-90 D 19 - 174 ---- ---- ---- 91 D- 9 Y 0 - 74 75 - 99 >/= 100 ---- 10-19 Y 0 - 89 90 - 129 >/= 130 ---- Hemoglobin A1C, Level 09-Oct-2019 05:25:00 ResultValue Estimated Average Glucose 131 Hemoglobin A1C, Level 6.2 Diagnosis of Diabetes-Adults Non-Diabetic: < or = 5.6% Increased risk for developing diabetes: 5.7-6.4% Diagnostic of diabetes: > or = 6.5% . Monitoring of Diabetes Age (y) Therapeutic Goal (%) Adults: >1 Troponin I, Serum Trending View [id number] 19:53:00 08-Oct-2019 16:45:00 Troponin I, Serum<0.02 <0.02 Coronavirus 2019 by PCR 08-Oct-2019 17:20:00 ResultValue Lab Comment: Called- RB to [place] [id number], 10/08/2019 18:51 Fluid Source Nasal, Nasopharyngeal Coronavirus 2019,PCR NOT DETECTED Reference Range: Not Detected This assay is designed to detect the RdRp gene of SARS-CoV-2 via nucleic acid amplification. A Not Detected result does not preclude COVID-19 infection since the adequacy of sample collection and/or lo I have reviewed these laboratory results: Complete Blood Count 10-Oct-2019 10:57:00 ResultValue Lab Comment: pt refused morning labs White Blood Cell Count 8.2 Nucleated Erythrocyte Count 0.0 Red Blood Cell Count 4.13 L HGB 11.2 L HCT 37.8 L MCV 92 MCHC 29.6 L PLT 229 RDW-CV 14.9 H Comprehensive Metabolic Panel 10-Oct-2019 10:57:00 ResultValue Lab Comment: pt refused morning labs Glucose, Serum 133 H NA 138 K 4.2 CL 108 H Bicarbonate, Serum 27 Anion Gap, Serum 7 L BUN 10 CREAT 0.62 GFR-Non >60 GFR- >60 Calcium, Serum 8.8 ALB 3.8 ALKP 145 H T Pro 6.6 T Bili 0.4 Alanine Aminotransferase, Serum 8 L Aspartate Transaminase, Serum 12 Lipid Panel 09-Oct-2019 05:25:00 ResultValue Cholesterol, Serum 130 . AGE DESIRABLE BORDERLINE HIGH HIGH 0-19 Y 0 - 169 170 - 199 >/= 200 20-24 Y 0 - 189 190 - 224 >/= 225 >24 Y 0 - 199 200 - 239 >/= 240 All ranges are based on [facility] HDL Cholesterol, Serum 31.8 . AGE VERY LOW LOW NORMAL HIGH 0-19 Y < 35 < 40 40-45 ---- 20-24 Y ---- < 40 >45 ---- >24 Y ---- < 40 40-60 >60 . A Cholesterol/HDL Ratio 4.1 REF VALUES DESIRABLE < 3.4 HIGH RISK > 5.0 LDL, Level 73 . NEAR BORD AGE DESIRABLE OPTIMAL HIGH HIGH VERY HIGH 0-19 Y 0 - 109 --- 110-129 >/= 130 ---- 20-24 Y 0 - 119 --- 120-159 >/= 160 ---- >24 Y 0 - VLDL, Serum 25 Triglycerides, Serum 124 . AGE DESIRABLE BORDERLINE HIGH HIGH VERY HIGH 0 D-90 D 19 - 174 ---- ---- ---- 91 D- 9 Y 0 - 74 75 - 99 >/= 100 ---- 10-19 Y 0 - 89 90 - 129 >/= 130 ---- Hemoglobin A1C, Level 09-Oct-2019 05:25:00 ResultValue Estimated Average Glucose 131 Hemoglobin A1C, Level 6.2 Diagnosis of Diabetes-Adults Non-Diabetic: < or = 5.6% Increased risk for developing diabetes: 5.7-6.4% Diagnostic of diabetes: > or = 6.5% . Monitoring of Diabetes Age (y) Therapeutic Goal (%) Adults: >1 Assessment and Plan: Additional Dx: Chest pain: Entered Date: 06-Jun-2018 14:15 Chest pain: Entered Date: 29-Dec-2015 04:55 Stroke-like episode: Entered Date: 13-Jul-2015 22:21 History of cholecystectomy: Entered Date: 12-Jul-2015 01:19 Status post bilateral hernia repair: Entered Date: 12-Jul-2015 01:18 History of total left hip replacement: Entered Date: 12-Jul-2015 01:18 H/O spinal fusion: Entered Date: 12-Jul-2015 01:18 Potential for self care deficit: Entered Date: 12-Jul-2015 00:21 Morbid obesity with BMI of 50.0-59.9, adult: Entered Date: 12-Jul-2015 00:20 Chest pain: Entered Date: 06-Aug-2013 14:53 Medical History: Benign essential hypertension: Entered Date: 06-Jun-2018 11:32 Stroke: Entered Date: 15-Nov-2015 16:06 Coronary artery disease: Entered Date: 15-Nov-2015 16:05 Diverticulitis: Entered Date: 15-Nov-2015 16:04 Anemia: Entered Date: 15-Nov-2015 16:04 Pulmonary embolism: Entered Date: 15-Nov-2015 16:04 Surg History: H/O spinal fusion: Entered Date: 12-Jul-2015 01:20 Status post bilateral hernia repair: Entered Date: 12-Jul-2015 01:20 S/P right knee arthroscopy: Entered Date: 12-Jul-2015 01:20 History of total left hip arthroplasty: Entered Date: 12-Jul-2015 01:19 History of cholecystectomy: Entered Date: 12-Jul-2015 01:19 Chronic: Cellulitis of leg: Entered Date: 17-May-2010 21:20 Other Dx/Proc: Stroke: Entered Date: 19-Nov-2011 13:52 Abdominal pain: Entered Date: 03-Oct-2011 11:46 Left heart catheterization: Entered Date: 10-Aug-2009 11:31 Unstable angina/chest pain: Entered Date: 08-Aug-2009 21:29 Chest pain: Entered Date: 08-Aug-2009 17:35 Assessment: 59 year old male with lengthy medical history including WI, CVA, PE, uncontrolled hypertension, obesity; presents to ER with reported chest pain. Review of record patient with cardiac catheterization at [facility] in November 2018, no stents placed. He was discharged from a SNF yesterday due to lack of insurance coverage. Admits since being discharged he has had to move about and care for himself more, likely exacerbating his chest discomfort. Impression 1: Chest Pain Plan for Impression 1: Cardiology Consult, appreciate input Trend Troponin & EKG ASA 324mg given in ED ASA 81mg QD & Plavix Echocardiogram Lipid & HA1c in am Impression 2: Hypertension Plan for Impression 2: Resume home regimen: - Lisinopril 10mg QD - Coreg 6.25mg QD Hydralazine 10mg IV as needed Impression 3: Dyslipidemia Plan for Impression 3: Lipid panel in am Continue Simvastatin 40mg QD Impression 4: Hx of CVA Plan for Impression 4: Resume Plavix 75mg QD Impression 5: Chronic Back Pain Plan for Impression 5: Resume home Percocet Impression 6: Decreased Ambulation Plan for Impression 6: Utilizes rollator PT/OT Reports was scheduled for Lumbar surgery, postponed due to Covid19 Social Work consult for discharge planning Impression 7: Recent SNF Exposure Plan for Impression 7: Covid-19 pending Covid Precautions Plan for Impression 8: Patient fully evaluated on October 08. Patient having symptoms consistent with possible angina. Coreg has been increased from 6.25-12 and half milligrams twice daily because of chest pain and hypertension. Cardiology consultation is pending. Patient is significant deconditioned and will probably require further snf. Plan for Impression 9: Patient fully evaluated on October 09. Still having intermittent chest pain despite medication adjustments. Cardiac catheterization is planned for tomorrow. Electronic Signatures: Chuy Mc) (Signed 10-Oct-2019 15:55) Authored: Service, Subjective Data, Objective Data, Assessment and Plan, Signature/Cosignature/Attest ation Last Updated: 10-Oct-2019 15:55 by Chuy Mc) Normal [facility] Daily Progress Note-General Internal Medicineon 10-09-2019 Daily Progress Note-General Internal Medicine Service: General Internal Medicine Subjective Data: NATALIE GERBER is a 59 year old Male who is Hospital Day # 2. Objective Data: Objective Information: T PRBPSpO2 [id number]% Date/Time10/08 16: 16: 16: 16: 16:00 Range(35.8C - 36.7C ) (86 - 136 ) (18 - 21 ) (111 - 225 )/ (56 - 89 ) (95% - 98% ) Pain reported at 10/08 14:05: 7 = Severe T PRBPSpO2 [id number]/8997% Date/Time10/08 16: 16: 16:005 16:005 16:00 Range(35.8C - 36.7C ) (86 - 136 ) (18 - 21 ) (111 - 225 )/ (56 - 89 ) (95% - 98% ) Weights 10/07 20:52: Weight in kg (Weight (kg)) 147.5 10/07 20:52: Weight in lbs ((lbs)) 325.1 10/07 20:52: BMI (kg/m2) (BMI (kg/m2)) 54.112 Physical Exam: Constitutional: Obese, awake/alert/oriented x3, no distress, alert and cooperative Eyes: PERRL, EOMI, clear sclera ENMT: mucous membranes moist, no apparent injury, no lesions seen Head/Neck: Neck supple, no apparent injury, thyroid without mass or tenderness, No JVD, trachea midline, no bruits Respiratory/Thorax: CTAB, no wheeze or rhonchi Cardiovascular: Regular rate and rhythm Genitourinary: Deferred Musculoskeletal: ROM intact, no joint swelling, normal strength Extremities: +1 dependent edema bilaterally Skin: Warm and dry, no lesions, no rashes Medication: Medications: Continuous Medications ---- No continuous medications are active Scheduled Medications ---- 1. Aspirin Enteric Coated: 81 mg Oral Daily 2. Carvedilol: 12.5 mg Oral 2 Times a Day 3. Citalopram (CELEXA): 20 mg Oral Daily 4. Clopidogrel: 75 mg Oral Daily 5. Furosemide: 20 mg Oral Daily 6. Levothyroxine: 25 microgram(s) Oral Daily 7. Lisinopril: 10 mg Oral Daily 8. Methylphenidate: 20 mg Oral 2 Times a Day 9. Pantoprazole: 40 mg Oral Daily 10. Perflutren Lipid Microsphere (Activated) 1.3 mL / NaCL 0.9% T.V. 10 mL Injectable: 0.5 mL IntraVenous Push Once 11. QUEtiapine: 100 mg Oral At Bedtime 12. Simvastatin: 40 mg Oral At Bedtime PRN Medications ---- 1. Acetaminophen: 650 mg Oral Every 4 Hours 2. hydrALAZINE (APRESOLINE) Injectable: 10 mg IntraVenous Push Every 6 Hours 3. Morphine Injectable: 4 mg IntraVenous Push Every 5 Minutes 4. Nitroglycerin SubLingual: 0.4 mg SubLingual Every 5 Minutes 5. oxyCODONE Immediate Release: 5 mg Oral Every 6 Hours Conditional Medication Orders ---- 1. Perflutren Lipid Microsphere (Activated) 1.3 mL / NaCL 0.9% T.V. 10 mL Injectable: 0.5 mL IntraVenous Push Once Recent Lab Results: Results: CBC: 10/08/2019 14:24 \\ Hgb / \\ 11.4 L / WBC Plt 9.8 267 / Hct \\ / 38.0 L \\ RBC: 4.18 L MCV: 91 Neutrophil %: 73.9 BMP: 10/08/2019 13:56 NA+ Cl- BUN / 136 101 15 / ---- Glucose 112 H K+ HCO3- Creat \\ 4.1 26 0.64 \\ Calcium : 9.7 Anion Gap : 13 Coagulation: 10/08/2019 13:56 PT / 10.7 / -------< INR < 1.0 PTT\\ \\ I have reviewed these laboratory results: Lipid Panel 09-Oct-2019 05:25:00 ResultValue Cholesterol, Serum 130 . AGE DESIRABLE BORDERLINE HIGH HIGH 0-19 Y 0 - 169 170 - 199 >/= 200 20-24 Y 0 - 189 190 - 224 >/= 225 >24 Y 0 - 199 200 - 239 >/= 240 All ranges are based on fasting [facility] HDL Cholesterol, Serum 31.8 . AGE VERY LOW LOW NORMAL HIGH 0-19 Y < 35 < 40 40-45 ---- 20-24 Y ---- < 40 >45 ---- >24 Y ---- < 40 40-60 >60 . A Cholesterol/HDL Ratio 4.1 REF VALUES DESIRABLE < 3.4 HIGH RISK > 5.0 LDL, Level 73 . NEAR BORD AGE DESIRABLE OPTIMAL HIGH HIGH VERY HIGH 0-19 Y 0 - 109 --- 110-129 >/= 130 ---- 20-24 Y 0 - 119 --- 120-159 >/= 160 ---- >24 Y 0 - VLDL, Serum 25 Triglycerides, Serum 124 . AGE DESIRABLE BORDERLINE HIGH HIGH VERY HIGH 0 D-90 D 19 - 174 ---- ---- ---- 91 D- 9 Y 0 - 74 75 - 99 >/= 100 ---- 10-19 Y 0 - 89 90 - 129 >/= 130 ---- Hemoglobin A1C, Level 09-Oct-2019 05:25:00 ResultValue Estimated Average Glucose 131 Hemoglobin A1C, Level 6.2 Diagnosis of Diabetes-Adults Non-Diabetic: < or = 5.6% Increased risk for developing diabetes: 5.7-6.4% Diagnostic of diabetes: > or = 6.5% . Monitoring of Diabetes Age (y) Therapeutic Goal (%) Adults: >1 Troponin I, Serum Trending View [id number] 19:53:00 08-Oct-2019 16:45:00 Troponin I, Serum<0.02 <0.02 Coronavirus 2019 by PCR 08-Oct-2019 17:20:00 ResultValue Lab Comment: Called- RB to [facility], 10/08/2019 18:51 Fluid Source Nasal, Nasopharyngeal Coronavirus 2019,PCR NOT DETECTED Reference Range: Not Detected This assay is designed to detect the RdRp gene of SARS-CoV-2 via nucleic acid amplification. A Not Detected result does not preclude COVID-19 infection since the adequacy of sample collection and/or lo Assessment and Plan: Additional Dx: Chest pain: Entered Date: 06-Jun-2018 14:15 Chest pain: Entered Date: 29-Dec-2015 04:55 Stroke-like episode: Entered Date: 13-Jul-2015 22:21 History of cholecystectomy: Entered Date: 12-Jul-2015 01:19 Status post bilateral hernia repair: Entered Date: 12-Jul-2015 01:18 History of total left hip replacement: Entered Date: 12-Jul-2015 01:18 H/O spinal fusion: Entered Date: 12-Jul-2015 01:18 Potential for self care deficit: Entered Date: 12-Jul-2015 00:21 Morbid obesity with BMI of 50.0-59.9, adult: Entered Date: 12-Jul-2015 00:20 Chest pain: Entered Date: 06-Aug-2013 14:53 Medical History: Benign essential hypertension: Entered Date: 06-Jun-2018 11:32 Stroke: Entered Date: 15-Nov-2015 16:06 Coronary artery disease: Entered Date: 15-Nov-2015 16:05 Diverticulitis: Entered Date: 15-Nov-2015 16:04 Anemia: Entered Date: 15-Nov-2015 16:04 Pulmonary embolism: Entered Date: 15-Nov-2015 16:04 Surg History: H/O spinal fusion: Entered Date: 12-Jul-2015 01:20 Status post bilateral hernia repair: Entered Date: 12-Jul-2015 01:20 S/P right knee arthroscopy: Entered Date: 12-Jul-2015 01:20 History of total left hip arthroplasty: Entered Date: 12-Jul-2015 01:19 History of cholecystectomy: Entered Date: 12-Jul-2015 01:19 Chronic: Cellulitis of leg: Entered Date: 17-May-2010 21:20 Other Dx/Proc: Stroke: Entered Date: 19-Nov-2011 13:52 Abdominal pain: Entered Date: 03-Oct-2011 11:46 Left heart catheterization: Entered Date: 10-Aug-2009 11:31 Unstable angina/chest pain: Entered Date: 08-Aug-2009 21:29 Chest pain: Entered Date: 08-Aug-2009 17:35 Assessment: 59 year old male with lengthy medical history including WI, CVA, PE, uncontrolled hypertension, obesity; presents to ER with reported chest pain. Review of record patient with cardiac catheterization at [facility] in November 2018, no stents placed. He was discharged from a SNF yesterday due to lack of insurance coverage. Admits since being discharged he has had to move about and care for himself more, likely exacerbating his chest discomfort. Impression 1: Chest Pain Plan for Impression 1: Cardiology Consult, appreciate input Trend Troponin & EKG ASA 324mg given in ED ASA 81mg QD & Plavix Echocardiogram Lipid & HA1c in am Impression 2: Hypertension Plan for Impression 2: Resume home regimen: - Lisinopril 10mg QD - Coreg 6.25mg QD Hydralazine 10mg IV as needed Impression 3: Dyslipidemia Plan for Impression 3: Lipid panel in am Continue Simvastatin 40mg QD Impression 4: Hx of CVA Plan for Impression 4: Resume Plavix 75mg QD Impression 5: Chronic Back Pain Plan for Impression 5: Resume home Percocet Impression 6: Decreased Ambulation Plan for Impression 6: Utilizes rollator PT/OT Reports was scheduled for Lumbar surgery, postponed due to Covid19 Social Work consult for discharge planning Impression 7: Recent SNF Exposure Plan for Impression 7: Covid-19 pending Covid Precautions Plan for Impression 8: Patient fully evaluated on October 08. Patient having symptoms consistent with possible angina. Coreg has been increased from 6.25-12 and half milligrams twice daily because of chest pain and hypertension. Cardiology consultation is pending. Patient is significant deconditioned and will probably require further snf. Electronic Signatures: Chuy Mc) (Signed 09-Oct-2019 17:07) Authored: Service, Subjective Data, Objective Data, Assessment and Plan, Signature/Cosignature/Attest ation Last Updated: 09-Oct-2019 17:07 by Chuy Mc) [facility] Discharge Planning [id number] 0 10-09-2019 Discharge Planning Note2 Discharge Planning: Needs Prior to Discharge (ex. Home Care Orders, IV/O2 prescriptions) none at this time Discharge Barriers (ex. 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 Reviewed demographics, phone number, insurance, and RX coverage. Pt lives with his daughter and states his is in a detention. Pt denies the uses rollator and cane. Pt is not able to drive that his daughter takes him as needed where he needs to go. Pt not utilizing any [facility] agencies. Pt is able to obtain his home meds without difficulty and denies any questions. Pt states his daughter will take him home when discharged. Pt will make his own f/u appointment. Pt feels he will have the help he needs after discharge at home. Denies home oxygen. States he was just discharged from [facility] in [place] and had to leave d/t insurance wouldn't pay anymore. Pt states he needs to have back surgery but d/t the covid restriction with elective surgery it was placed on hold. Jesi MAJOR, RN, [facility] 10/12/2019 1048 PCN: Met with patient to discuss SNF preferences. His preferences are 1. [facility] 2. [facility] 3. [facility]. Requested DEVELOPMENT REPRESENTATIVE to make referrals in allscripts. Waiting on acceptance. MONI Galvan update: Per response in allscripts, [facility] is reviewing because patient was issued a 30 day notice for non-payment from their [facility] facility. Met with patient to get other preferences. DEVELOPMENT REPRESENTATIVE sending referrals to: 1. [facility] 2. [facility] 3. [facility] Waiting on responses. MONI Galvan 10/12/19 1100 DEVELOPMENT REPRESENTATIVE: sent referral to [facility], [facility], and [facility]. Gabbi [facility] Navigation Specialist 1320: sent referral to [facility] emergency department in [place], [facility] 10/12/2019 SOCIAL WORK NOTE SW met with pt appears to be a difficult placement. Pt came to hospital from his dtr's home, tells sw that he had to come in as his dtr works and he has had to take care of himself and he has much back pain which cause his chest pain. Prior to going to dtr's, pt was at a detention called [facility] while waiting for back surgery at [facility]. The surgery was cancelled due to Covid, so pt stayed at [facility] over the skilled time and his [employer] declined payment for two weeks as the detention only had skilled auth and the ecf did not tell pt. Pt has a bill there which he can not pay so cannot return there. Pt could go to dtrs but feels he will return due to the same situation of having to do everything for himself. GRISEL explains that many facilities have declined, possible due to non payment at [facility]. Sw explained he may need to go to anywhere we can find a bed. Pt's is at [facility], , when asked, pt said he tried to get in there in the past but was declined. SW informed that we would try again, pt agreed. SW called their admissions to discuss, admissions is gone for the day and will not get the referral until tomorrow. SW left a call back name and number requesting a call back. Pt denies any criminal history or problem with drugs or alcohol. SW to follow to assist in placment. Rose Marie Nelson ELEMENT SETTER, SPEECH PATHOLOGIST ASSISTANT-S 10/12/2019 1600 PCN: Per SW, patient's is at [facility]. Referral sent in allscripts. Waiting on response. MONI Galvan update: [facility] can accept. They are starting precert. [facility] has not waived prior authorization. MONI Galvan 844 PCN: Precert expedited to [facility]. MONI Galvan 10/13/19 1529 DEVELOPMENT REPRESENTATIVE: [facility] has precert. Alcon Velázquez Specialist 10/13/2019 1554 PCN: DC written and 1730 transport scheduled for patient to go to [facility]. Facility notified by DEVELOPMENT REPRESENTATIVE in allscripts MONI Galvan 10/13/19 1609 DEVELOPMENT REPRESENTATIVE: 7000 is complete and gold form is attached. Alcon Velázquez Specialist Assessment: Discharge Planning Assessment [id number] Primary Contact Name and Numberjamel [phone](1) Stated Reason for Admissionchest pain(1) [place] (1) Lives Withadult child(ce); daughter in daughter's home(2) Living Arrangementshouse(2) Resource/Environmental Concernsnone(1) Anticipated Transition [place](1) Services Anticipated at Transitionnon(1) Discharge Documentation: Discharge/Transfer Date/[id number] 18:05 Discharge Modewheelchair Discharged Accompanied ByPhysician flight attendant/inflight manager Transportation [facility]ulance Phsysician's ambulette attendant Valuables/Medications/Belong ings Returnedyes Belongings Commentsent with patient [facility] Electronic Signatures: Estrella Peoples (PCN) (Signed 13-Oct-2019 15:55) Authored: Discharge Planning Note2 Jesi Vazquez (RN) (Signed 09-Oct-2019 18:12) Authored: Discharge Planning Note2 Gabbi Boyer (COOR) (Signed 13-Oct-2019 16:09) Authored: Discharge Planning Note2 Joan Myers (RN) (Signed 13-Oct-2019 18:55) Authored: Discharge Planning Note2 Rose Marie Nelson (GRISEL) (Signed 12-Oct-2019 15:56) Authored: Discharge Planning Note2 Last Updated: 13-Oct-2019 18:55 by Joan Myers (RN) References: 1. Data Referenced From Patient Profile - Adult v2 08-Oct-2019 20:52 2. Data Referenced From "OT Evaluation v2-occupational therapy" 09-Oct-2019 13:30 Normal [facility] Discharge [id number] Discharge Profile2 Discharge Orders: Anticipated Discharge Date: Anticipated Discharge [id number] Problem List: Additional Dx: Chest pain: Catalog Name: Chest pain, unspecified Chest pain: Catalog Name: Chest pain, unspecified Stroke-like episode: Catalog Name: Cerebral infarction, unspecified History of cholecystectomy: Catalog Name: Acquired absence of other specified parts of digestive tract Status post bilateral hernia repair: Catalog Name: Status post ventricular assist device History of total left hip replacement: Catalog Name: Presence of left artificial hip joint H/O spinal fusion: Catalog Name: Arthrodesis status Potential for self care deficit: Catalog Name: Other specified personal risk factors, not elsewhere classified Morbid obesity with BMI of 50.0-59.9, adult: Catalog Name: Morbid (severe) obesity due to excess calories Chest pain: Catalog Name: Chest pain Medical History: Benign essential hypertension: Catalog Name: Essential (primary) hypertension Stroke: Catalog Name: Cerebral infarction, unspecified Coronary artery disease: Catalog Name: Atherosclerotic heart disease of [place] coronary artery without angina pectoris Diverticulitis: Catalog Name: Diverticulitis of intestine, part unspecified, without perforation or abscess without bleeding Anemia: Catalog Name: Anemia, unspecified Pulmonary embolism: Catalog Name: Other pulmonary embolism without acute cor pulmonale Surg History: H/O spinal fusion: Catalog Name: Arthrodesis status Status post bilateral hernia repair: Catalog Name: Status post ventricular assist device S/P right knee arthroscopy: Catalog Name: Status post ventricular assist device History of total left hip arthroplasty: Catalog Name: Presence of left artificial hip joint History of cholecystectomy: Catalog Name: Acquired absence of other specified parts of digestive tract Prelim Disch Dx: Abnormal sensation of upper extremity: Catalog Name: Unspecified disturbances of skin sensation Abnormal sensation of lower extremity: Catalog Name: Unspecified disturbances of skin sensation Chest pain: Catalog Name: Chest pain, unspecified Stroke: Catalog Name: Cerebral infarction, unspecified Depression: Catalog Name: Major depressive disorder, single episode, unspecified Chronic back pain: Catalog Name: Dorsalgia, unspecified Hypertension: Catalog Name: Essential (primary) hypertension Atypical chest pain: Catalog Name: Atypical chest pain Chest pain: Catalog Name: Chest pain Syncope (disorder): Catalog Name: Syncope Chronic: Cellulitis of leg: Catalog Name: Cellulitis of leg Other Dx/Proc: Stroke: Catalog Name: Stroke, Description: Stroke Abdominal pain: Catalog Name: Abdominal pain, Description: Abdominal pain Left heart catheterization: Catalog Name: Left heart catheterization, Description: Left heart catheterization Unstable angina/chest pain: Catalog Name: Unstable angina/chest pain, Description: Unstable angina/chest pain Chest pain: Catalog Name: Chest pain, Description: Chest pain Significant Events: Left Knee: Past Surgical History hernia surgery: Past Surgical History back surgery, left hip surgery, gallbladder: Past Surgical History TIA: Past Medical History CVA w/ TPA: Past Medical History diverticulitis: Past Medical History TIA: Past Medical History Mild CAD, but no h/o WI: Past Medical History Diastolic CHF: Past Medical History diverticulitis: Past Medical History cellulitis of both lower legs: Past Medical History chf, htn, mi,, bph: Past Medical History total hip left: Past Medical History mi: Past Medical History Hypertension (HTN): Past Medical History, CHF., Back Surgery., Vascular Necrosis., High chol., Asthma., Depression Family spokesperson: Other, NONE PROVIDED pneumo vac: Immunizations flu shot 2016: Immunizations Contact Information: Contacts, [facility] Providers: Provider RoleProvider Name Amrit Serrano Benson S AttendingMandat, Thomas DNAR: DNAR Statusnone Activity: activity as tolerated. May shower. May return to school/work Instructions: May drive. Diet: Dietlow cholesterol Heart Failure: Patient Instructions: - CALL 911 IF YOU HAVE ANY OF THE SIGNS AND SYMPTOMS OF HEART FAILURE: 1. Chest pain 2. Significant Shortness of breath 3. Fainting. - Notify your physician immediately if you have shortness of breath; weight gain of 3 lbs. or more; fatigue and loss of energy; swelling of lower extremities or abdomen; dizziness or fainting; change of appetite; and frequent coughing. - Patient received Living With Heart Failure book. - Daily weight on the same scale, same time after voiding and before eating. - Maintain daily weight log. Activity: - Balance activity with rest, gradually increase your activity as tolerated. - Exercise as prescribed by your physician. LVEF % at Discharge: Left Ventricular Ejection Fraction %[facility] Heart Failure Appointment: Follow up phone call will be placed to patient on: 09-Oct-2019 (Call must be placed within 72 hours of discharge). Provider follow up with on: 09-Oct-2019. Gold Form Orders: Care Recommendation: I recommend that INPATIENT care is required at:Skilled Estimated StayConvalescent stay < 30 days PrognosisGood Rehab Potential/FunctionImprove Provider CertificationI certify that inpatient care is required at the level recommended above. To the best of my knowledge, all information provided about the individual is a true and accurate reflection of the individual's condition. Therapy Orders: Occupational Therapy OrdersEval and Treat ([facility]) Physical Therapy OrdersEval and Treat ([facility]) Provider Follow Up: Physician To Follow at Skilled/RehabAttending Physician at Skilled/Rehab Provider FINAL REVIEW of Orders: Final Review: Final Review of Medication Reconciliation and Orders Completedby Physician Reviewing ProviderChuy Mc MD at 12-Oct-2019 09:06:08 Gold Form - Nursing Summary: Special Treatments/Procedures (in past 14 days): Chemotherapyno Dialysisno IV Medicationno Oxygen Therapyno Transfusionsno Feverno Radiationno Ventilatorno Tracheostomyno Suctioningno Nutrition: Nutritional Statusfeeds self Sensory/Comfort: Visionadequate Hearingadequate Speechclear Elimination: Bladdercontinent Bowelcontinent Last Bowel [id number] Toiletingindependent Safety: Siderailsyes Siderails Number/Reasonx2 for mobility Restraintsno Sitterno Fall Riskweakness, severe sciatica Medication/Hygiene/Mobility: Medication Administrationassist Bathingindependent Dressingsupervision only Bed Mobilityassist Wheelchairindependent Transferssupervision only Ambulationpersons/equipment Skin comment: Skin commentright groin cath dressing dry and intact Electronic Signatures: Lucia, Joan (RN) (Signed 13-Oct-2019 16:45) Authored: Gold Form - Nursing Summary Chuy Mc) (Signed 12-Oct-2019 09:06) Authored: Discharge Orders, Heart Failure, Gold Form Orders, Provider FINAL REVIEW of Orders, Gold Form - Data Center Architect Summary Last Updated: 13-Oct-2019 16:45 by Joan Myers (GABO) Normal [facility] HEMOGLOBIN A1Con 10-09-2019 HbA1c (Bld) [Mass fraction] 6.2 % Normal [facility] Comment on above: Result Comment: Diag nosis of Diabetes-Adults Non-Diabetic: < or = 5.6% Increased risk for developing diabetes: 5.7-6.4% Diagnostic of diabetes: > or = 6.5% . Monitoring of Diabetes Age (y) Therapeutic Goal (%) Adults: >18 <7.0 Pediatrics: 13-18 <7.5 7-12 <8.0 0- 6 7.5-8.5 [place] [employer]. Diabetes Care 33(S1), Jun 2009. Performed By: #### H BA1E ####[facility] [place] [address] HbA1c (Bld) [Mass fraction] 131 MG/DL Normal [facility] Comment on above: Performed By: #### H BA1E ####[facility] [place] [address] LIPID PANEL (CORONARY RISK 2 )on 10-09-2019 Cholesterol [Mass/Vol] 130 mg/dL Normal 0 - 199 [facility] Comment on above: Result Comment: . AGE DESIRABLE BORDERLINE HIGH HIGH 0-19 Y 0 - 169 170 - 199 >/= 200 20-24 Y 0 - 189 190 - 224 >/= 225 >24 Y 0 - 199 200 - 239 >/= 240 All ranges are based on fasting samples. Specific therapeutic targets will vary based on patient-specific cardiac risk. . Pediatric guidelines reference:Pediatrics 2011, 128(S5). Adult guidelines reference: NCEP ATPIII Guidelines, JUDI 2001, 258:2486-97 . Venipuncture immediately after or during the administration of Metamizole may lead to falsely low results. Testing should be performed immediately prior to Metamizole dosing. Performed By: #### L IPID ####[facility] [place] [address] Cholesterol in HDL [Mass/Vol] 31.8 mg/dL Abnormal [facility] Comment on above: Result Comment: . AGE VERY LOW LOW NORMAL HIGH 0-19 Y < 35 < 40 40-45 ---- 20-24 Y ---- < 40 >45 ---- >24 Y ---- < 40 40-60 >60 . Performed By: #### L IPID ####[facility] [place] [address] Cholesterol in LDL [Mass/Vol] 73 mg/dL Normal 0 - 99 [facility] Comment on above: Result Comment: . NEAR BORD AGE DESIRABLE OPTIMAL HIGH HIGH VERY HIGH 0-19 Y 0 - 109 --- 110-129 >/= 130 ---- 20-24 Y 0 - 119 --- 120-159 >/= 160 ---- >24 Y 0 - 99 100-129 130-159 160-189 >/=190 . Performed By: #### L IPID ####[facility] [place] [address] Cholesterol in VLDL [Mass/Vol] 25 mg/dL Normal 0 - 40 [facility] Comment on above: Performed By: #### L IPID ####[facility] [place] [address] Cholesterol.total/Cho lesterol in HDL [Mass ratio] 4.1 {ratio} Normal [facility] Comment on above: Result Comment: REF VALUES DESIRABLE < 3.4 HIGH RISK > 5.0 Performed By: #### L IPID ####[facility] [place] [address] Triglyceride [Mass/Vol] 124 mg/dL Normal 0 - 149 [facility] Comment on above: Result Comment: . AGE DESIRABLE BORDERLINE HIGH HIGH VERY HIGH 0 D-90 D 19 - 174 ---- ---- ---- 91 D- 9 Y 0 - 74 75 - 99 >/= 100 ---- 10-19 Y 0 - 89 90 - 129 >/= 130 ---- 20-24 Y 0 - 114 115 - 149 >/= 150 ---- >24 Y 0 - 149 150 - 199 200- 499 >/= 500 . Venipuncture immediately after or during the administration of Metamizole may lead to falsely low results. Testing should be performed immediately prior to Metamizole dosing. Performed By: #### L IPID ####[facility] [place] [address] Admission Risk Screen - Adul ton 10-08-2019 Admission Risk Screen - Adult Allergies: Allergies: Nubain: Anxiety, Hives/Urticaria Toradol IV/IM: Hives/Urticaria Fish: Hives/Urticaria Patient Verification: New W ID Band Applied in my Departmentyes Patient Identity Verified Bypatient ID Band FULL Name, include Middle, spelling matches patient's ID used for verificationyes ID Band Matches Patient ID used for Verficationyes ID Band MRN Matches EMR MRNyes Visitor Restriction: Coronavirus Visitor Restriction: Reasonable restrictions to in-person visitors will be observed due to current coronavirus pandemic. Travel History: COVID-19 Screening Completedno exposure or symptoms(1) Advance Directive: Advance Directive/DNRno (2) Advance Directive Information Givenpatient/family declined Falls Screen: Type of Assessmentadmission Moderate Risk Factorspatient care equipment (scds, ivs, chest tubes, schulte, etc), nursing judgment (specify) High Risk Factorsrecent falls Risk for Injury Associated with Fallnone Fall Risk Conclusionhigh falls risk with low risk for associated injury [place] Safety InterventionsWDL *orient to call system *instruct to call for assistance before getting out of bed *non-slip footwear when patient is out of bed *call st in reach *personal items and telephone in reach *physically safe environment (no spills or clutter) *bed in lowest position with wheels locked *appropriate side rails in place *room/bathroom lighting operational, light cord in reach *appropriate signage on door Fall and Injury Risk Interventionssupervised toileting (mandatory for all high risk patients), exit (bed/chair) alarms (mandatory for all high risk patients), educate patient/family for risk for injury (fractures and bleeding) Family Violence Screen: Are you or have you been threatened or abused physically, emotionally, or sexually by anyoneno Has anyone ever threatened to hurt your family or your petsno Does anyone try to keep you from having/contacting other friends or doing things outside your homeno Do you feel UNSAFE going back to the place where you are livingno Do you feel anyone has exploited or taken advantage of you financially or of your personal propertyno Clinical assessment: Are there any apparent signs of injuries/behaviors that could be related to abuse/neglectno Social Service Consult for abuse/neglect needed this visitno Functional Screen: Functional Screen: In the recent/past 2-4 weeks, patient or family have noticedno issues that require a speech/language consult at this time [facility]- Basic Mobility/Daily Activity: Patient baseline bedboundno Turning from your back to your side while in a flat bed without using bedrailsa little Moving from lying on your back to sitting on the side of a flat bed without using bedrailsnone Moving to and from bed to chair (including a wheelchair)none Standing up from a chair using your arms (e.g. wheelchair or bedside chair) none To walk in hospital roomnone Climbing 3-5 steps with railingtotal [facility] Basic Mobility- Total Score20 Putting on and taking off regular lower body clothingnone Bathing (including washing, rinsing, drying)none Putting on and taking off regular upper body clothingnone Toileting, which includes using toilet, bedpan or urinalnone Taking care of personal grooming such as brushing teethnone Eating Mealsnone [facility] Daily Activity- Total Score24 Learning Assessment (Patient): Patient is Able to be Assessed for Learningyes Factors Influencing Readiness to Learninterest in learning Factors that Impact Ability to Learnvisual problems Devices/Methods Used to Communicateglasses Learning Preferencesverbal instruction Cultural Considerationsnone Developmental Considerationsnone Jehovah'S Witness Considerationsnone Learning Assessment (Other Learner): Other learner availableno Suicide/Depression Screen: During the past month, have you often been bothered by feeling down, depressed or hopelessno During the past month, have you often had little interest or pleasure in doing thingsno Have you had any thoughts of harming yourselfno Have you had any thoughts of harming anyone elseno (1) Adult Nutrition Screen: Have you recently lost weight without tryingno Have you been eating poorly because of a decreased appetiteno Malnutrition Screening Tool Score0 Malnutrition Screening Tool RiskMST = 0 or 1 Not at risk. Eating well with little or no weight loss Nutrition Consult needed this visitno Can Patient Participate in Room Serviceyes Patient requires Paper Dishes/Plastic Utensilsno Pain Screen: Pain Scalenumerical 0-10 Pain Scale Educationteaching provided Current Pain Level6 = Moderate Acceptable Pain Level0 = None Expression of Pain (nonverbal)none Chronic Painyes Usual Pain Rating at Rest3 Usual Pain Rating with Activity3 Chronic Back pain locationback Factors that Relieve Painmedications... Medications that Relieve Painoxycodone compounds (eg Percocet, Percodan) Spiritual Screen: Are there any cultural, spiritual, protestant practices/values/needs that are important for us to knowno Do you want a visit/item from [facility] Would you like your Charter Coach Driver/Mail Carrier And Clerk notifiedno CAGE: Is this an injured patient at a Trauma Center ([facility]/[place]): no (2) Vaccinations: Vaccination - Influenza Vaccination Screen: Is it flu season (between and September 12)No Vaccination - Pneumonia Vaccination Screen: Patient has received a previous pneumonia vaccine:yes Martin: Skin - Martin Scale: Martin: Sensory Perception (response to environment)(4) no impairment Martin: Moisture (degree skin exposed to moisture)(3) occasionally moist Martin: Activity (ability to walk)(3) walks occasionally Martin: Mobility (amount/control of body movement)(3) slightly limited Martin: Nutrition (quality of food intake)(4) excellent Martin: Friction and Shear(3) no apparent problem Martin: Score20 Significant Indicatiors: Significant Indicators: Complete Pressure Injury: Pressure Injury Present on Admissionno Electronic Signatures: Akanksha Garzon) (Signed 08-Oct-2019 20:52) Authored: Admission Risk Screens, Vaccinations, Martin, Pressure Injury Last Updated: 08-Oct-2019 20:52 by Akanksha Garzon (ICNDY) References: 1. Data Referenced From "Triage - ED" 08-Oct-2019 13:41 2. Data Referenced From Risk Screen - Adult Emergency" 08-Oct-2019 16:41 Normal [facility] BASIC METABOLIC PANELon 05-0 Anion gap [Moles/Vol] 13 mmol/L Normal 10 - 20 [facility] Comment on above: Performed By: #### B MP ####[facility] [place] [address] Calcium [Mass/Vol] 9.7 mg/dL Normal 8.6 - 10.3 [facility] Comment on above: Performed By: #### B MP ####[id number] [place] [address] Chloride [Moles/Vol] 101 mmol/L Normal 98 - 107 [facility] Comment on above: Performed By: #### B MP ####[address] [address] Creatinine [Mass/Vol] 0.64 mg/dL Normal 0.50 - 1.30 [facility] Comment on above: Performed By: #### B MP ####[address] [address] GFR- AM. >60 Normal >60 [facility] Comment on above: Result Comment: CALC ULATIONS OF ESTIMATED GFR ARE PERFORMED USING THE MDRD STUDY EQUATION FOR THE IDMS-TRACEABLE CREATININE METHODS. CLIN CHEM 2007;53:766-72 Performed By: #### B MP ####[address] [address] GFR-NON AM. >60 Normal >60 [facility] Comment on above: Performed By: #### B MP ####[facility] [place] [address] Glucose [Mass/Vol] 112 mg/dL High 74 - 99 [facility] Comment on above: Performed By: #### B MP ####[address] [address] HCO3 (Bld) [Moles/Vol] 26 mmol/L Normal 21 - 32 [facility] Comment on above: Performed By: #### B MP ####[address] [address] Potassium [Moles/Vol] 4.1 mmol/L Normal 3.5 - 5.3 [facility] Comment on above: Result Comment: MILD HEMOLYSIS DETECTED. The result may be falsely elevated due to hemolysis or other interferents. Clinical correlation is recommended. Repeat testing may be considered. Performed By: #### B MP ####[id number] [place] [address] Sodium [Moles/Vol] 136 mmol/L Normal 136 - 145 [facility] Comment on above: Performed By: #### B MP ####[facility] [place] [id number] Urea nitrogen [Mass/Vol] 15 mg/dL Normal 6 - 23 [facility] Comment on above: Performed By: #### B MP ####[address] [address] BNPon 10-08-2019 Natriuretic peptide B (Bld) [Mass/Vol] 19 pg/mL Normal 0 - 99 [facility] Comment on above: Result Comment: . <1 00 pg/mL - Heart failure unlikely 100-299 pg/mL - Intermediate probability of acute heart . failure exacerbation. Correlate with clinical . context and patient history. >=300 pg/mL - Heart Failure likely. Correlate with clinical . context and patient history. BNP testing is performed using different testing methodology at [facility] than at other [facility]. Direct result comparisons should only be made within the same method. Performed By: #### B NP2 ####[facility] [place], [place] [id number] Natriuretic peptide B (Bld) [Mass/Vol] Canceled Normal [facility] Comment on above: Order Comment: TEST BNP WAS CANCELLED, 10/08/2019 14:15 SPECIMEN CLOTTED.PLEASE RESUBMIT. Result Comment: . <1 00 pg/mL - Heart failure unlikely 100-299 pg/mL - Intermediate probability of acute heart . failure exacerbation. Correlate with clinical . context and patient history. >=300 pg/mL - Heart Failure likely. Correlate with clinical . context and patient history. BNP testing is performed using different testing methodology at [facility] than at other [facility]. Direct result comparisons should only be made within the same method. Performed By: #### B NP2 ####[facility] [place] [address] CBC AND DIFFERENTIALon 10-07 % AUTOMATED IMMATURE GRAN 0.7 % Normal 0.0 - 0.9 [facility] Comment on above: Result Comment: Lina ture Granulocyte Count (IG) includes promyelocytes, myelocytes and metamyelocytes but does not include bands. Percent differential counts (%) should be interpreted in the context of the absolute cell counts (cells/L). Performed By: #### C BCDF ####[address] [address] Basophils (Bld) [#/Vol] 0.05 10*3/uL Normal 0.00 - 0.10 [facility] Comment on above: Performed By: #### C BCDF ####[address] [address] Basophils/100 WBC (Bld) 0.5 % Normal 0.0 - 2.0 [facility] Comment on above: Performed By: #### C BCDF ####[address] [address] Eosinophils (Bld) [#/Vol] 0.18 10*3/uL Normal 0.00 - 0.70 [facility] Comment on above: Performed By: #### C BCDF ####[address] [address] Eosinophils/100 WBC (Bld) 1.8 % Normal 0.0 - 6.0 [facility] Comment on above: Performed By: #### C BCDF ####[address] [address] Erythrocyte distribution width (RBC) [Ratio] 14.7 % High 11.5 - 14.5 [facility] Comment on above: Performed By: #### C BCDF ####[address] [address] Hematocrit (Bld) [Volume fraction] 38.0 % Low 41.0 - 52.0 [facility] Comment on above: Performed By: #### C BCDF ####[address] [address] Hemoglobin (Bld) [Mass/Vol] 11.4 g/dL Low 13.5 - 17.5 [facility] Comment on above: Performed By: #### C BCDF ####[address] [address] Lymphocytes (Bld) [#/Vol] 1.80 10*3/uL Normal 1.20 - 4.80 [facility] Comment on above: Performed By: #### C BCDF ####[facility] [place], [place] [address], [place] [address] Lymphocytes/100 WBC (Bld) 18.4 % Normal 13.0 - 44.0 [facility] Comment on above: Performed By: #### C BCDF ####[address] [place] [address] MCHC (RBC) [Mass/Vol] 30.0 g/dL Low 32.0 - 36.0 [facility] Comment on above: Performed By: #### C BCDF ####[address] [place] [address] MCV (RBC) [Entitic vol] 91 fL Normal 80 - 100 [facility] Comment on above: Performed By: #### C BCDF ####[address] [place] [address] Monocytes (Bld) [#/Vol] 0.46 10*3/uL Normal 0.10 - 1.00 [facility] Comment on above: Performed By: #### C BCDF ####[address] [place] [address] Monocytes/100 WBC (Bld) 4.7 % Normal 2.0 - 10.0 [facility] Comment on above: Performed By: #### C BCDF ####[address] [place] [address] Neutrophils (Bld) [#/Vol] 7.24 10*3/uL Normal 1.20 - 7.70 [facility] Comment on above: Performed By: #### C BCDF ####[address] [place] [address] Neutrophils/100 WBC (Bld) 73.9 % Normal 40.0 - 80.0 [facility] Comment on above: Performed By: #### C BCDF ####[address] [place] [address] Nucleated RBC/100 WBC (Bld) [Ratio] 0.0 /100 WBC Normal 0.0 - 0.0 [facility] Comment on above: Performed By: #### C BCDF ####[facility] [place] [address], [place] [address] Platelets (Bld) [#/Vol] 267 10*3/uL Normal 150 - 450 [facility] Comment on above: Performed By: #### C BCDF ####[address] [place] [address] RBC (Bld) [#/Vol] 4.18 x10E12/L Low 4.50 - 5.90 [facility] Comment on above: Performed By: #### C BCDF ####[address] [place] [address] WBC (Bld) [#/Vol] 9.8 10*3/uL Normal 4.4 - 11.3 [facility] Comment on above: Performed By: #### C BCDF ####[address] [place] [address] % AUTOMATED IMMATURE GRAN Canceled Normal [facility] Comment on above: Order Comment: TEST CBC AND DIFFERENTIAL WAS CANCELLED, 10/08/2019 14:13 SPECIMENCLOTTED.PLEASE RESUBMIT. Result Comment: Lina ture Granulocyte Count (IG) includes promyelocytes, myelocytes and metamyelocytes but does not include bands. Percent differential counts (%) should be interpreted in the context of the absolute cell counts (cells/L). Performed By: #### C BCDF ####[address] [place] [address] Basophils (Bld) [#/Vol] Canceled Normal [facility] Comment on above: Order Comment: TEST CBC AND DIFFERENTIAL WAS CANCELLED, 10/08/2019 14:13 SPECIMENCLOTTED.PLEASE RESUBMIT. Performed By: #### C BCDF ####[address] [place] [address] Basophils/100 WBC (Bld) Canceled Normal [facility] Comment on above: Order Comment: TEST CBC AND DIFFERENTIAL WAS CANCELLED, 10/08/2019 14:13 SPECIMENCLOTTED.PLEASE RESUBMIT. Performed By: #### C BCDF ####[address] [place] [address] DIFFERENTIAL Canceled Normal [facility] Comment on above: Order Comment: TEST CBC AND DIFFERENTIAL WAS CANCELLED, 10/08/2019 14:13 SPECIMENCLOTTED.PLEASE RESUBMIT. Performed By: #### C BCDF ####[address] [place] [address] Eosinophils (Bld) [#/Vol] Canceled Normal [facility] Comment on above: Order Comment: TEST CBC AND DIFFERENTIAL WAS CANCELLED, 10/08/2019 14:13 SPECIMENCLOTTED.PLEASE RESUBMIT. Performed By: #### C BCDF ####[address] [place] [address] Eosinophils/100 WBC (Bld) Canceled Normal [facility] Comment on above: Order Comment: TEST CBC AND DIFFERENTIAL WAS CANCELLED, 10/08/2019 14:13 SPECIMENCLOTTED.PLEASE RESUBMIT. Performed By: #### C BCDF ####[address] [place] [address] Erythrocyte distribution width (RBC) [Ratio] Canceled Normal [facility] Comment on above: Order Comment: TEST CBC AND DIFFERENTIAL WAS CANCELLED, 10/08/2019 14:13 SPECIMENCLOTTED.PLEASE RESUBMIT. Performed By: #### C BCDF ####[address] [place] [address] Hematocrit (Bld) [Volume fraction] Canceled Normal [facility] Comment on above: Order Comment: TEST CBC AND DIFFERENTIAL WAS CANCELLED, 10/08/2019 14:13 SPECIMENCLOTTED.PLEASE RESUBMIT. Performed By: #### C BCDF ####[address] [place] [address] Hemoglobin (Bld) [Mass/Vol] Canceled Normal [facility] Comment on above: Order Comment: TEST CBC AND DIFFERENTIAL WAS CANCELLED, 10/08/2019 14:13 SPECIMENCLOTTED.PLEASE RESUBMIT. Performed By: #### C BCDF ####[address] [place] [address] Lymphocytes (Bld) [#/Vol] Canceled Normal [facility] Comment on above: Order Comment: TEST CBC AND DIFFERENTIAL WAS CANCELLED, 10/08/2019 14:13 SPECIMENCLOTTED.PLEASE RESUBMIT. Performed By: #### C BCDF ####[address] [address] MCHC (RBC) [Mass/Vol] Canceled Normal [facility] Comment on above: Order Comment: TEST CBC AND DIFFERENTIAL WAS CANCELLED, 10/08/2019 14:13 SPECIMENCLOTTED.PLEASE RESUBMIT. Performed By: #### C BCDF ####[address] [address] MCV (RBC) [Entitic vol] Canceled Normal [facility] Comment on above: Order Comment: TEST CBC AND DIFFERENTIAL WAS CANCELLED, 10/08/2019 14:13 SPECIMENCLOTTED.PLEASE RESUBMIT. Performed By: #### C BCDF ####[address] [address] Monocytes (Bld) [#/Vol] Canceled Normal [facility] Comment on above: Order Comment: TEST CBC AND DIFFERENTIAL WAS CANCELLED, 10/08/2019 14:13 SPECIMENCLOTTED.PLEASE RESUBMIT. Performed By: #### C BCDF ####[address] [address] Neutrophils (Bld) [#/Vol] Canceled Normal [facility] Comment on above: Order Comment: TEST CBC AND DIFFERENTIAL WAS CANCELLED, 10/08/2019 14:13 SPECIMENCLOTTED.PLEASE RESUBMIT. Performed By: #### C BCDF ####[address] [address] Neutrophils/100 WBC (Bld) Canceled Normal [facility] Comment on above: Order Comment: TEST CBC AND DIFFERENTIAL WAS CANCELLED, 10/08/2019 14:13 SPECIMENCLOTTED.PLEASE RESUBMIT. Performed By: #### C BCDF ####[address] [address] Nucleated RBC/100 WBC (Bld) [Ratio] Canceled Normal [facility] Comment on above: Order Comment: TEST CBC AND DIFFERENTIAL WAS CANCELLED, 10/08/2019 14:13 SPECIMENCLOTTED.PLEASE RESUBMIT. Performed By: #### C BCDF ####[facility] [place] [address] Platelets (Bld) [#/Vol] Canceled Normal [facility] Comment on above: Order Comment: TEST CBC AND DIFFERENTIAL WAS CANCELLED, 10/08/2019 14:13 SPECIMENCLOTTED.PLEASE RESUBMIT. Performed By: #### C BCDF ####[facility] [place] [address] RBC (Bld) [#/Vol] Canceled Normal [facility] Comment on above: Order Comment: TEST CBC AND DIFFERENTIAL WAS CANCELLED, 10/08/2019 14:13 SPECIMENCLOTTED.PLEASE RESUBMIT. Performed By: #### C BCDF ####[facility] [place] [address], [place] [address] WBC (Bld) [#/Vol] Canceled Normal [facility] Comment on above: Order Comment: TEST CBC AND DIFFERENTIAL WAS CANCELLED, 10/08/2019 14:13 SPECIMENCLOTTED.PLEASE RESUBMIT. Performed By: #### C BCDF ####[facility] [place] [address] CHEST 1 VIEWon 10-08-2019 CHEST 1 VIEW Patient Name: NATALIE GERBER STUDY: CHEST 1 VIEW; 10/08/2019 2:10 pm INDICATION: Chest Pain. COMPARISON: 03/26/2019 ACCESSION NUMBER(S): [id number] ORDERING CLINICIAN: VERONICA SAMSON FINDINGS: The heart and mediastinum are normal. The lungs are clear. No infiltrates or pleural effusion. No congestive heart failure or pneumothorax. IMPRESSION: Negative examination. Electronically signed by: JORGE NAVA MD Normal [facility] CORONAVIRUS 2019 BY PCRon CORONAVIRUS 2019,PCR NOT DETECTED Normal Not Detected [facility] Comment on above: Order Comment: Bruna PLASCENCIA to BARNHO1, 10/08/2019 18:51 Result Comment: This assay is designed to detect the RdRp gene of SARS-CoV-2 via nucleic acid amplification. A Not Detected result does not preclude COVID-19 infection since the adequacy of sample collection and/or low viral burden may result in presence of viral nucleic acids below the clinical sensitivity of this test method. Fact sheet for providers: www.fda.gov/media/277776/download Fact sheet for patients: www.fda.gov/media/871912/download This test has received FDA Emergency Use Authorization (EUA) and has been verified by [facility]. This test is only authorized for the duration of time that circumstances exist to justify the authorization of the emergency use of in vitro diagnostic tests for the detection of SARS-CoV-2 virus and/or diagnosis of COVID-19 infection under section 564(b)(1) of the Act, 21 U.S.C. 360bbb-3(b)(1), unless the authorization is terminated or revoked sooner. [facility] is certified under CLIA-88 as qualified to perform high complexity testing. Testing is performed in the [facility] laboratory located at [address] [place] [address]. Latosha [place]IA [place] [address], 10/08/2019 18:51 Performed By: #### C OV19 ####[place] [address] Lab Specimen Source Nasal, Nasopharyngeal Normal [facility] Comment on above: Order Comment: Bruna [place]ASCENCIA to [place] [address], 10/08/2019 18:51 Performed By: #### C OV19 ####[place] [address] Clinical Event Noteon 2019 Clinical Event Note Event: Details: Patient fully evaluated in the emergency room. Patient having chest pain that she says is similar to his prior heart attack. Cardiology consultation is obtained and cardiology risk orders are present. Patient did have recent exposure to a facility added where there was COVID 19 patients. And patient to have COVID testing performed. Patient to have COVID isolation. Electronic Signatures: Chuy Mc) (Signed 08-Oct-2019 17:19) Authored: Event Last Updated: 08-Oct-2019 17:19 by Chuy Mc) Normal [facility] History and Physicalon 10-07 History and Physical History of Present Illness: Admission Reason: Chest pain HPI: NATALIE GERBER is a 59 year old Male presenting to the ER with chest pain. Reports earlier this morning he developed left sided chest, left upper arm numbness and diaphoresis. He took 2 nitro at home which he states usually helps his chest pain. His discomfort was unchanged, thus he took a 3rd nitro. His pain persisted and he was prompted to ED. In the ED, BP uncontrolled 215/88. Labs grossly normal, Troponin negative. Chest xray negative for acute He was treated with ASA 324mg, Nitro, Hydralazine, Morphine and Zofran. He had mild improvement in hypertension and chest discomfort. EKG unavailable in ED. On exam, patient appears comfortable but reports still with chest pain and feels 'off'. He reports he was discharged from [facility] ([place] yesterday. Patient reports Covid-19 spread throughout the facility but he tested negative a few weeks ago. Covid-19 test result currently pending. He stayed at his daughters home last night. He admits he has had to exert himself much more since discharge than he is accustomed to. He suggests his chest pain started this morning because he was walking about the house more than his normal. He utilizes a rollator. Also reports markedly worse lower extremity edema. Past Medical History - CAD - CVA with TPA - Pulmonary Embolism - HTN - HLD - Anemia - Obesity - Hypothyroidism Past Surgical History - Left Total Hip Replacement - Left Knee Arthroscopy - Cholecystectomy - Lumbar Fusion Comorbidities: Comorbid Conditionshypertension Allergies: Nubain: Anxiety, Hives/Urticaria Toradol IV/IM: Hives/Urticaria Fish: Hives/Urticaria Medications Prior to Admission: Home meds have been reviewed, but review is not yet complete aspirin 81 mg oral delayed release tablet: 1 tab(s) orally once a day Lasix 20 mg oral tablet: 1 tab(s) orally once a day Plavix 75 mg oral tablet: 1 tab(s) orally once a day nitroglycerin: 0.4 milligram(s) sublingual every 5 minutes, As Needed Seroquel 100 mg oral tablet: 1 tab(s) orally once a day (at bedtime) Nexium 40 mg oral delayed release capsule: 1 cap(s) orally 2 times a day Celexa 20 mg oral tablet: 1 tab(s) orally once a day lisinopril 10 mg oral tablet: 1 tab(s) orally once a day carvedilol 6.25 mg oral tablet: 1 tab(s) orally once a day simvastatin 40 mg oral tablet: 1 tab(s) orally once (at bedtime) levothyroxine 25 mcg (0.025 mg) oral tablet: 1 tab(s) orally once a day Adderall 20 mg oral tablet: 1 tab(s) orally 2 times a day oxyCODONE 5 mg oral tablet: 1 tab(s) orally every 6 hours. Review of Systems: Constitutional: NEGATIVE: Fever, Chills, Anorexia, Weight Loss, Malaise Eyes: NEGATIVE: Blurry Vision, Drainage, Diploplia, Redness, Vision Loss/ Change ENMT: NEGATIVE: Nasal Discharge, Nasal Congestion, Ear Pain, Mouth Pain, Throat Pain Respiratory: POSITIVE: Shortness of Breath; NEGATIVE: Dry Cough, Productive Cough, Hemoptysis, Wheezing Cardiac: POSITIVE: Chest Pain, Dyspnea on Exertion; NEGATIVE: Orthopnea, Palpitations, Syncope Gastrointestinal: NEGATIVE: Nausea, Vomiting, Diarrhea, Constipation, Abdominal Pain Genitourinary: NEGATIVE: Discharge, Dysuria, Flank Pain, Frequency, Hematuria Musculoskeletal: POSITIVE: Swelling; NEGATIVE: Decreased ROM, Pain Neurological: NEGATIVE: Dizziness, Confusion, Headache, Seizures, Syncope Skin: NEGATIVE: Mass, Pain, Pruritus, Rash, Ulcer Objective: Objective Information: T PRBPSpO2 [id number]% Date/Time10/07 16: 16: 16: 16: 16:52 Range(36.2C - 36.8C ) (92 - 95 ) (18 - 22 ) (101 - 215 )/ (77 - 104 ) (96% - 97% ) Pain reported at 10/07 16:52: 3 = Mild Physical Exam Constitutional: Obese, awake/alert/oriented x3, no distress, alert and cooperative Respiratory/Thorax: CTAB, no wheeze or rhonchi Cardiovascular: Regular rate and rhythm Genitourinary: Deferred Musculoskeletal: ROM intact, no joint swelling, normal strength Extremities: +1 dependent edema bilaterally Skin: Warm and dry, no lesions, no rashes Medications Medications: Continuous Medications ---- No continuous medications are active Scheduled Medications ---- No scheduled medications are active PRN Medications ---- 1. Acetaminophen: 650 mg Oral Every 4 Hours 2. Morphine Injectable: 4 mg IntraVenous Push Every 5 Minutes 3. Nitroglycerin SubLingual: 0.4 mg SubLingual Every 5 Minutes Conditional Medication Orders ---- 1. Perflutren Lipid Microsphere (Activated) 1.3 mL / NaCL 0.9% T.V. 10 mL Injectable: 0.5 mL IntraVenous Push Once Recent Lab Results Results: CBC: 10/08/2019 14:24 \\ Hgb / \\ 11.4 L / WBC Plt 9.8 267 / Hct \\ / 38.0 L \\ RBC: 4.18 L MCV: 91 Neutrophil %: 73.9 BMP: 10/08/2019 13:56 NA+ Cl- BUN / 136 101 15 / ---- Glucose 112 H K+ HCO3- Creat \\ 4.1 26 0.64 \\ Calcium : 9.7 Anion Gap : 13 Coagulation: 10/08/2019 13:56 PT / 10.7 / -------< INR < 1.0 PTT\\ \\ Radiology Results Results: Impression: Negative examination. Xray Chest 1 View [Oct 08 2019 2:15PM] Assessment and Plan: Assessment: 59 year old male with lengthy medical history including WI, CVA, PE, uncontrolled hypertension, obesity; presents to ER with reported chest pain. Review of record patient with cardiac catheterization at [facility] in November 2018, no stents placed. He was discharged from a SNF yesterday due to lack of insurance coverage. Admits since being discharged he has had to move about and care for himself more, likely exacerbating his chest discomfort. Impression 1: Chest Pain Plan for Impression 1: Cardiology Consult, appreciate input Trend Troponin & EKG ASA 324mg given in ED ASA 81mg QD & Plavix Echocardiogram Lipid & HA1c in am Impression 2: Hypertension Plan for Impression 2: Resume home regimen: - Lisinopril 10mg QD - Coreg 6.25mg QD Hydralazine 10mg IV as needed Impression 3: Dyslipidemia Plan for Impression 3: Lipid panel in am Continue Simvastatin 40mg QD Impression 4: Hx of CVA Plan for Impression 4: Resume Plavix 75mg QD Impression 5: Chronic Back Pain Plan for Impression 5: Resume home Percocet Impression 6: Decreased Ambulation Plan for Impression 6: Utilizes rollator PT/OT Reports was scheduled for Lumbar surgery, postponed due to Covid19 Social Work consult for discharge planning Impression 7: Recent SNF Exposure Plan for Impression 7: Covid-19 pending Covid Precautions Signatures/Attestation/Certi fication: Note Completion Attending Provider Inpatient Certification StatementObservation patient/other outpatient visits Electronic Signatures for Addendum Section: Chuy Mc) (Signed Addendum 09-Oct-2019 17:02) Patient fully evaluated on October 07. Patient with unstable angina cardiac work-up in progress. Cardiology consult and echocardiogram ordered. Patient significant deconditioned and physical Occupational Therapy assessments. Electronic Signatures: Haley Miller (PAC) (Signed 08-Oct-2019 17:52) Authored: History of Present Illness, Comorbidities, Allergies, Medications Prior to Admission, Review of Systems, Objective, Assessment and Plan, Signatures/Attestation/Certi fication Last Updated: 09-Oct-2019 17:02 by Chuy Mc) Normal [facility] PT/INRon 10-08-2019 INR Coag (PPP) [Relative time] 1.0 {INR} Normal 0.9 - 1.1 [facility] Comment on above: Performed By: #### P TINR ####[facility] [place] [address] PT Coag (PPP) [Time] 10.7 s Normal 9.7 - 12.7 [facility] Comment on above: Performed By: #### P TINR ####[facility] [place] [address] Patient Profile - Adult v2on 10-08-2019 Patient Profile - Adult v2 Profile: Initial Info: How to be AddressedGucho(1) Spoken Language PreferredEnglish (1) Source of Informationpatient Are you currently using the Personal Electronic Health Record or MYUHCAREno (1) Are you interested in learning more about MYCARE for the management of your healthdeclined Stated Reason for Admissionchest pain Primary Contact Name and Numberdebbie [phone] Limitations on Visitors/Phone Callsnone Wants Family/Rep Notified of Admissionyes, primary contact Notify PCPnotify PCP Informed of Patient Visiting Rightsyes Temporary Family Living Arrangements (While Hospitalized)none needed Arrived From[facility] Employment Statusretired Current or Previous Servicenone Patient Belongingsremains with patient Patient Belongings Remaining with [employer]/credit card; cell phone/electronics; 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; 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 aids; clothing Medications Brought to Hospitalno History of MDROno General Health: Weight in kg147.5 kilogram(s) Weight in evs144.1 pound(s) Height in feet5 feet Height in inches5 inch(es) Height in cm165.1 centimeter(s) BMI (kg/m2)54.112 square meter Weight Methodactual (measured) Scale Typestanding Height Methodstated RSP Based Care: How would you like to participate in your careget back pain ;under control What is the number one concern for you during this hospitalizationchest pain and back pain stop hurting What is the most important thing we can do to support you during this hospitalizationpain control Is there anything we need to know to best care for youno Major Change/Loss/Stressor/Fearsde nies Substance: Current or Former Substance Use never: Cigarette/Tobacco(2), e-Cigarette/Vaping(2) YES: Alcohol(2), Street Drugs(2) Health Mgmt: Symptoms/Conditions Managed at Homecardiovascular; chronic pain; neurological; respiratory; musculoskeletal; gastrointestinal Cardiovascular Symptoms/Conditionsmyocardia l infarction Cardiovascular Management Strategiesmedication therapy Cardiovascular Managementmanaged Gastrointestinal Management Strategiesmedication therapy Gastrointestinal Managementmanaged Gastrointestinal Symptoms/Conditions Commentdouble hernia repair Musculoskeletal Symptoms/Conditionsmobility limited Musculoskeletal Management Strategiesmedication therapy; 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 Musculoskeletal Managementmanaged Musculoskeletal Symptoms/Conditions CommentL4-L5 laminectomy, chronic back pain Neurological Symptoms/Conditionsstroke Neurological Management Strategiesmedication therapy Neurological Managementmanaged Neurological Symptoms/Conditions Commenttia Chronic Pain Locationback Chronic Pain Aggravating Factorsmovement Chronic Pain Management Strategiesmedication therapy Chronic Pain Managementmanaged Chronic Pain Symptoms/Conditions Commentneeds surgery Respiratory Management Strategiesmedication therapy Respiratory Managementmanaged Respiratory Symptoms/Conditions CommentPE, pneumonia Barriers to Managing Healthnone Relationship/Environ: Primary Source of Support/Comfortspouse; child(ce) Lives Withspouse Living Arrangementshouse Significant Exposurenone Resource/Environmental Concernsnone Anticipated Transition [place] Services Anticipated at Transitionnone Significant IndicatorsComplete Information Review: Allergies, Home Meds and Significant Events have been Reviewed and Verified with Patient/Familyyes ALLERGY, INTOLERANCE, ADVERSE EVENT: Allergies: Nubain: Drug, Anxiety, Hives/Urticaria, Active Toradol IV/IM: Drug, Hives/Urticaria, Active Fish: Food, Hives/Urticaria, Active Electronic Signatures: Akanksha Garzon) (Signed 08-Oct-2019 22:08) Authored: Profile, Additional Information Last Updated: 08-Oct-2019 22:08 by Akanksha Garzon (CINDY) References: 1. Data Referenced From Patient Profile - Adult v2 27-Mar-2019 00:09 2. Data Referenced From Risk Screen - Adult Emergency" 08-Oct-2019 16:41 Normal [facility] Provider Note - ED v2on 05-0 Provider Note - ED v2 Provider Note - ED v2: Chart Review: ED NOTES ED NOTES: Patient is a 59-year-old male with multiple comorbidities including CHF, coronary artery disease, hypertension, stroke and remote history of PE in 1998 presenting with chest pain. Patient states around 8 AM this morning started to have some discomfort in his chest and aching in his left arm. About an hour prior to arrival the symptoms significantly worsen so he came to the emergency room. He does not have associated shortness of breath. Patient describes the discomfort as aching and pressure. Patient took 3 nitroglycerin at home with some minor relief after the third tablet. Patient is on Plavix and daily 81 mg aspirin. He does have chronic dyspnea on exertion but states this is unchanged. He is chronic peripheral edema which is also unchanged. Patient is minimally ambulatory at baseline and uses a Rollator. He denies any associated vomiting but has reported nausea. No diaphoresis. No other complaints at this time. Gen.: No weight loss, fatigue, anorexia, insomnia, fever. Eyes: No vision loss, double vision, drainage, eye pain. ENT: No pharyngitis, dry mouth. Cardiac: + chest pain, No palpitations, syncope, near syncope. Pulmonary: No shortness of breath, cough, hemoptysis. Heme/lymph: No swollen glands, fever, bleeding. GI: + Nausea No abdominal pain, change in bowel habits, melena, hematemesis, hematochezia, vomiting, diarrhea. : No discharge, dysuria, frequency, urgency, hematuria. Musculoskeletal: + peripheral edema No limb pain, joint pain, joint swelling. Skin: No rashes. Psych: No depression, anxiety, suicidality, homicidality. Review of systems is otherwise negative unless stated above or in history of present illness. Physical Exam: Appearance: Alert, oriented , cooperative, in no acute distress. Well nourished & well hydrated. Skin: Intact, dry skin, no lesions, rash, petechiae or purpura. Eyes: PERRLA, EOMs intact, Conjunctiva pink with no redness or exudates. Cornea & anterior chamber are clear, Eyelids without lesions. No scleral icterus. ENT: Hearing grossly intact. External auditory canals patent, Nares patent, mucus membranes moist. Dentition without lesions. Pharynx clear, uvula midline. Neck: Supple, without meningismus. Thyroid not palpable. Trachea at midline. No lymphadenopathy. Pulmonary: Clear bilaterally with good chest wall excursion. Breath sounds are diminished secondary to body habitus. No rales, rhonchi or wheezing. No accessory muscle use or stridor. No crackles appreciated Cardiac: Normal S1, S2 without murmur, rub, gallop or extrasystole. No JVD, Carotids without bruits. Abdomen: Soft, nontender, active bowel sounds. No palpable organomegaly. No rebound or guarding. No CVA tenderness. Genitourinary: Exam deferred. Musculoskeletal: Full range of motion. no pain, edema, or deformity. Pulses full and equal. No cyanosis, clubbing,. 2+ bilateral pitting edema of the lower extremities up to the mid tibia. Neurological: Cranial nerves II through XII are grossly intact, finger-nose touch is normal, normal sensation, no weakness, no focal findings identified. Psychiatric: Appropriate mood and affect. Anxious EKG Normal sinus rhythm at a rate of 99 Normal axis Normal intervals Normal ST segments Repeat EKG at 1647 Continue normal sinus rhythm with no dynamic changes HISTORY OF PRESENTING ILLNESS NATALIE is a 59 year old Male and was seen by me at 08-Oct-2019 13:40 for a chief complaint of chest pain (Pt presents to ED via [facility] with CC of CP. Per pt, CP began while at rest at 0800 today, Pt took 3 SL nitro without relief at home. CP radiates to LUE, described as pressure, ache. Pt with hx of WI without stents, is on plavix/ ASA. Pt with associated nausea. Pt [facility] from [facility] to room 31 where EKG perofrmed)(1). Triage Information: Most recent Vital Sign Value Date Temp (F): 98.2 10-08-2019 13:41 Temp (C): 36.8 10-08-2019 13:41 Heart Rate (beats/min): 95 10-08-2019 13:41 Respirations (breaths/min): 20 10-08-2019 13:41 SpO2 (%): 97 10-08-2019 13:41 BP Systolic (mm Hg): 101 10-08-2019 13:41 BP Diastolic (mm Hg): 77 10-08-2019 13:41 PAST MEDICAL HISTORY ATTESTATION: I have reviewed and confirmed nurse's/medic's notes for patient's medications, allergies, medical history, and surgical history ALLERGIES/INTOLERANCES: Allergy Allergen: Nubain Type: Drug Reaction: Anxiety Hives/Urticaria Allergen: Toradol IV/IM Type: Drug Reaction: Hives/Urticaria Allergen: Fish Type: Food Reaction: Hives/Urticaria HEALTH HISTORY: Medical History Name:Pulmonary embolism Code:I26.99 Name:Anemia Code:D64.9 Name:Diverticulitis Code:K57.92 Name:Coronary artery disease Code:I25.10 Name:Stroke Code:I63.9 Name:Benign essential hypertension Code:I10 Social History Name:Malingering Code:Z76.5 OUTPATIENT MEDICATIONS: Home Medications Review Status for Reconciliation: Incomplete Med Status: Incomplete Medication History Drug Name: aspirin 81 mg oral delayed release tablet Instructions: 1 tab(s) orally once a day Drug Name: Lasix 20 mg oral tablet Instructions: 1 tab(s) orally once a day Drug Name: Plavix 75 mg oral tablet Instructions: 1 tab(s) orally once a day Drug Name: nitroglycerin Instructions: 0.4 milligram(s) sublingual every 5 minutes, As Needed Drug Name: Seroquel 100 mg oral tablet Instructions: 1 tab(s) orally once a day (at bedtime) Drug Name: Nexium 40 mg oral delayed release capsule Instructions: 1 cap(s) orally 2 times a day Drug Name: Celexa 20 mg oral tablet Instructions: 1 tab(s) orally once a day Drug Name: lisinopril 10 mg oral tablet Instructions: 1 tab(s) orally once a day Drug Name: carvedilol 6.25 mg oral tablet Instructions: 1 tab(s) orally once a day Drug Name: simvastatin 40 mg oral tablet Instructions: 1 tab(s) orally once (at bedtime) Drug Name: levothyroxine 25 mcg (0.025 mg) oral tablet Instructions: 1 tab(s) orally once a day Drug Name: Adderall 20 mg oral tablet Instructions: 1 tab(s) orally 2 times a day Drug Name: oxyCODONE 5 mg oral tablet Instructions: 1 tab(s) orally every 6 hours SIGNIFICANT EVENTS: Clinical Events Description:Surgical Procedure Additional Notes:EGD Description:Surgical Procedure Additional Notes:EGD with bx Immunizations Description:flu shot 2015 Description:pneumo vac Other Description:Family spokesperson Additional Notes:NONE PROVIDED Past Medical History Description:Hypertension (HTN) Additional Notes:CHF., Back Surgery., Vascular Necrosis., High chol., Asthma., Depression Description:mi Description:total hip left Description:chf, htn, mi,, bph Description:cellulitis of both lower legs Description:diverticulitis Description:Diastolic CHF Description:Mild CAD, but no h/o WI Description:TIA Description:diverticulitis Description:CVA w/ TPA Description:TIA Past Surgical History Description:back surgery, left hip surgery, gallbladder Description:hernia surgery Description:Left Knee RESULTS/VITAL SIGNS RESULTS: Recent Lab Results: I have reviewed these laboratory results: Complete Blood Count + Differential 08-Oct-2019 14:24:00 ResultValue White Blood Cell Count 9.8 Nucleated Erythrocyte Count 0.0 Red Blood Cell Count 4.18 L HGB 11.4 L HCT 38.0 L MCV 91 MCHC 30.0 L PLT 267 RDW-CV 14.7 H Neutrophil % 73.9 Immature Granulocytes % 0.7 Lymphocyte % 18.4 Monocyte % 4.7 Eosinophil % 1.8 Basophil % 0.5 Neutrophil Count 7.24 Lymphocyte Count 1.80 Monocyte Count 0.46 Eosinophil Count 0.18 Basophil Count 0.05 Brain Natriuretic Peptide 08-Oct-2019 14:24:00 ResultValue Brain Natriuretic Peptide 19 Basic Metabolic Panel 08-Oct-2019 13:56:00 ResultValue Glucose, Serum 112 H NA 136 K 4.1 CL 101 Bicarbonate, Serum 26 Anion Gap, Serum 13 BUN 15 CREAT 0.64 GFR-Non >60 GFR- >60 Calcium, Serum 9.7 PT + INR, Plasma 08-Oct-2019 13:56:00 ResultValue Prothrombin Time, Plasma 10.7 International Normalized Ratio, Plasma 1.0 Troponin I, Serum 08-Oct-2019 13:56:00 ResultValue Troponin I, Serum <0.02 Radiology Results: Impression: Negative examination. Xray Chest 1 View [Oct 08 2019 2:15PM] VITAL SIGNS: T PRBP SpO2O2(LPM) %FiO2 Method 08-Oct-2019 17:29:[id number] 97 room air, no respiratory support 08-Oct-2019 16:52:[id number]/92 96 room air, no respiratory support 08-Oct-2019 16:19:[id number]/78 97 room air, no respiratory support 08-Oct-2019 15:10:00-6209106/96 08-Oct-2019 14:58:00-7206410/88 97 room air, no respiratory support 08-Oct-2019 14:28:00-82886/97 08-Oct-2019 14:19:00-2560077/104 97 room air, no respiratory support 08-Oct-2019 13:41:[id number]/77 97 room air, no respiratory support 08-Oct-2019 13:35:[id number]/77 97 room air, no respiratory support MEDICAL DECISION MAKING/ED COURSE MDM/ED COURSE: Patient is evaluated for chest pain. He is given nitro trial and his pain goes down from an 8 to a 3 after the 3 nitro. He is significantly hypertensive in the emergency room and we did order hydralazine for that. He does have multiple cardiac risk factors and history of coronary artery disease. Patient be admitted for further chest pain evaluation and trending of troponins. He does not have any dynamic process on his chest x-ray and a normal proBNP. His troponin is negative in the emergency room. Does not have a significant electrolyte abnormalities. He does have a very slight anemia of 11.4. Dr. Mc'maryam discussed the patient realized that he was recently discharged from nursing facility with known coronavirus cases. He did request that patient be tested for coronavirus and admitted to [facility] floor. He is concerned that the patient shortness of breath might be COVID infection. Patient is agreeable this plan. He is hemodynamically stable in the emergency room. CLINICAL IMPRESSION Diagnosis/Annotation: ED Dx Name:Chest pain Code:R07.9 Name:Hypertension Code:I10 Dispostion: hospitalized Admit to: Telemetry. Admitting Considerations: ATTESTATION CRITICAL CARE TIME Is this a critically ill patient: no Electronic Signatures: Veronica Samson) (Signed 08-Oct-2019 17:38) Authored: Provider Note - ED v2 Last Updated: 08-Oct-2019 17:38 by Veronica Samson) References: 1. Data Referenced From "Triage - ED" 08-Oct-2019 13:41 Normal [facility] Risk Screen - Adult Emergenc yon 10-08-2019 Risk Screen - Adult Emergency Preferred Language: Preferred Language: Preferred Language for Discussing Health Care (patient/designee)[place] Advanced Directives: Advance Directive/DNRno Family Violence Adult: Abuse Screen: Are you or have you been threatened or abused physically, emotionally, or sexually by anyoneno Learning Assessment (Patient): Learning Assessment (Patient): Patient is Able to be Assessed for Learningyes Factors Influencing Readiness to Learninterest in learning Factors that Impact Ability to Learnnone Devices/Methods Used to Communicateglasses Learning Preferencesindividual instruction Cultural Considerationsnone Developmental Considerationsnone Jehovah'S Witness ConsiderationsChristian Learning Assessment (Other Learner): Learning Assessment (Other Learner): Other learner availableno Pressure Injury/TB/Substance: Pressure Injury: Pressure Injury Present on Admissionno Do you have a coughno Substance Use Current or Former Historynever: Cigarette/Tobacco, e-Cigarette/Vaping YES: Alcohol, Street Drugs Alcohol Usehistory of abuse 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 Drug Usehistory of abuse Street Drug/Medication/ Inhalant Use 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 Admission Risk Screen: Significant IndicatorsComplete CAGE: CAGE: Is this an injured patient at a Trauma Center ([facility]/[place]): no Electronic Signatures: Jewell López (RN) (Signed 08-Oct-2019 16:42) Authored: Preferred Language, Advanced Directives, Family Violence Adult, Learning Assessment (Patient), Learning Assessment (Other Learner), Pressure Injury/TB/Substance, CAGE Last Updated: 08-Oct-2019 16:42 by Jewell López (RN) Normal [facility] TROPONIN Ion 10-08-2019 Troponin I.cardiac [Mass/Vol] ng/mL Normal 0.00 - 0.03 [facility] Comment on above: Result Comment: LESS THAN 0.04 NG/ML: NEGATIVE REPEAT TESTING IN THREE TO SIX HOURS IF CLINICALLY INDICATED. 0.04 - 0.5 NG/ML: CONSISTENT WITH POSSIBLE CARDIAC DAMAGE AND POSSIBLE INCREASED CLINICAL RISK. SERIAL MEASUREMENTS MAY HELP ASSESS EXTENT OF MYOCARDIAL DAMAGE. >0.5 NG/ML: CONSISTENT WITH CARDIAC DAMAGE, INCREASED CLINICAL RISK AND MYOCARDIAL INFARCTION. SERIAL MEASUREMENTS MAY HELP ASSESS EXTENT OF MYOCARDIAL DAMAGE. . Note: Troponin I testing is performed using different testing methodology at [facility] than at other [facility]. Direct result comparisons should only be made within the same method. Performed By: #### T ROP2 ####[facility] [place] [address] Troponin I.cardiac [Mass/Vol] ng/mL Normal 0.00 - 0.03 [facility] Comment on above: Result Comment: LESS THAN 0.04 NG/ML: NEGATIVE REPEAT TESTING IN THREE TO SIX HOURS IF CLINICALLY INDICATED. 0.04 - 0.5 NG/ML: CONSISTENT WITH POSSIBLE CARDIAC DAMAGE AND POSSIBLE INCREASED CLINICAL RISK. SERIAL MEASUREMENTS MAY HELP ASSESS EXTENT OF MYOCARDIAL DAMAGE. >0.5 NG/ML: CONSISTENT WITH CARDIAC DAMAGE, INCREASED CLINICAL RISK AND MYOCARDIAL INFARCTION. SERIAL MEASUREMENTS MAY HELP ASSESS EXTENT OF MYOCARDIAL DAMAGE. . Note: Troponin I testing is performed using different testing methodology at [facility] than at other [facility]. Direct result comparisons should only be made within the same method. Performed By: #### T ROP2 ####[facility] [place] [address] Troponin I.cardiac [Mass/Vol] ng/mL Normal 0.00 - 0.03 [facility] Comment on above: Result Comment: LESS THAN 0.04 NG/ML: NEGATIVE REPEAT TESTING IN THREE TO SIX HOURS IF CLINICALLY INDICATED. 0.04 - 0.5 NG/ML: CONSISTENT WITH POSSIBLE CARDIAC DAMAGE AND POSSIBLE INCREASED CLINICAL RISK. SERIAL MEASUREMENTS MAY HELP ASSESS EXTENT OF MYOCARDIAL DAMAGE. >0.5 NG/ML: CONSISTENT WITH CARDIAC DAMAGE, INCREASED CLINICAL RISK AND MYOCARDIAL INFARCTION. SERIAL MEASUREMENTS MAY HELP ASSESS EXTENT OF MYOCARDIAL DAMAGE. . Note: Troponin I testing is performed using different testing methodology at [facility] than at other [facility]. Direct result comparisons should only be made within the same method. Performed By: #### T ROP2 ####[facility] [place] [address] Triage - EDon 10-08-2019 Triage - ED Chart Review: CHIEF COMPLAINT NATALIE GERBER is a Male patient with a chief complaint of chest pain (Pt presents to ED via hospital lobby with CC of CP. Per pt, CP began while at rest at 0800 today, Pt took 3 SL nitro without relief at home. CP radiates to LUE, described as pressure, ache. Pt with hx of WI without stents, is on plavix/ ASA. Pt with associated nausea. Pt wheeled from hospital lobby to room 31 where EKG perofrmed). Triage Date/Time: 08-Oct-2019 13:41 Pain Rating (0-10): 8 = Severe Pain location: L chest/LUE Vital Signs: Temperature: 98.2F ( 36.8C) Blood Pressure: 101/77 Mean: Heart Rate: 95 Respiratory Rate: 20 Pulse Oximetry: 97% on room air, no respiratory support. Height: 5 feet 5.00 inches. 165.1 CM Weight: 313.7 pounds. Calculated 142.3 kg. Calculated BMI (kg/m2): 52.204 Calculated BSA (m2) 2.55 [place] Coma Scale: Best Eye Response: (E4) spontaneous Best Motor Response: (M6) obeys commands Best Verbal Response: (V5) oriented Celia Score: 15 Mask applied: no Patient has homicidal thoughts: no BRI: 2 Risk Screens Suicide Risk Screen In the Past Month: Have you wished you were or wished you could go to sleep and not wake up no In the Past Month: Have you had any actual thoughts of killing yourself no In Your Lifetime: Have you ever done anything, started to do anything, or prepared to do anything to end your life no Ascencio Fall Scale Screening Has the patient fallen before (or is the patient in the ED as a result of a fall) has not had a fall Does the patient have an impaired gait does not have impaired gait Is the patient cognitively impaired not cognitively impaired Interventions: Ascencio Fall Interventions: *patient oriented to surroundings and call system, * patient/family falls education completed and documented, *patients fall status communicated during bedside handoff, *whiteboard updated, *mode of toileting discussed with patient, *bed in low position with brakes locked, *call light in reach, * non-skid footwear PAIN Pain Scale Used: CHEY Pain Rating (0-10): 8 = Severe ARRIVAL INFORMATION Means of Arrival: wheelchair Mode of Arrival: private vehicle Arrival From: home Accompanied By: self PRIMARY ASSESSMENT ABCD Normal Findings: airway open and patent, breathing normal, circulation normal and alert and oriented PAST MEDICAL HISTORY Immunization History: Last Known Tetanus Immunization: Unknown TRAVEL HISTORY Travel History Coronavirus Screening: no exposure or symptoms Travel Exposure History: NO travel to International locations in the past 30 days Past Medical History: Past Medical History Reviewedyes Electronic Signatures: Jewell López (GABO) (Signed 08-Oct-2019 13:47) Authored: Triage, Past Medical History Last Updated: 08-Oct-2019 13:47 by Jewell López (GABO) Normal [facility] CT HEAD OR BRAIN W/O CONTRAS Ton 08-13-2019 CT HEAD OR BRAIN W/O CONTRAST ORIGINAL CT HEAD OR BRAIN W/O CONTRAST Clinical Statement: pain; trauma patient/headache/injury to occipital area, on blood thinners; history of TIA and stroke in 2017. TECHNIQUE: Axial CT images from skull base to vertex without IV contrast. This exam was performed according to our departmental dose optimization program, and includes the following measures where applicable: automated exposure control, adjustment of the mAs and/or kVp according to patient size and/or exam, and an iterative reconstruction algorithm. COMPARISON: 09/14/2016 FINDINGS: There is no intracranial hemorrhage, mass, mass effect or abnormal extra-axial fluid collection. No CT evidence for acute infarction. The density in the larger dural venous sinuses is grossly normal. The ventricles are not significantly enlarged. Patchy white matter changes visualized. There is a chronic lacunar type infarct in the RIGHT cerebellum, unchanged Atherosclerotic calcifications are present in the cavernous carotid arteries. The skull base and calvarium demonstrate no abnormality. The included paranasal sinuses and mastoid air cells are clear. IMPRESSION: 1. No intracranial hemorrhage. No mass effect. 2. Mild microvascular angiopathy I have personally reviewed the images of this examination and agree with the resident's findings and interpretation. Interpreted By: Phan Adams MD Preliminary Report By: Radha Giang MD Electronically Signed By: Phan Adams MD Dictated Date: 08/12/2019 10:57:48 PM Prelim Date: 08/12/2019 11:01:42 PM Sign Date: 08/12/2019 11:13:24 PM Ordering Provider:[facility] [place] [place] BNP (POC)on 08-10-2019 Natriuretic peptide B (Bld) [Mass/Vol] 2 pg/mL [facility] [place] Comment on above: Performed By: #### B NPPOC #### [facility] [address] [place], [place] [address] Natriuretic peptide B (Bld) [Mass/Vol] 12 pg/mL Normal <=99 [facility] [place] Comment on above: Performed By: #### B NPPOC #### [facility] [address] [place], [place] [address] CBC (POC)on 08-10-2019 Basophils (Bld) [#/Vol] 0.02 10 3/mcL Normal 0.00-0.27 [facility]) Comment on above: Performed By: #### C MP, GFR #### [address] [address] Basophils/100 WBC (Bld) 0.2 % Normal 0.0-2.5 [facility] [place] Comment on above: Performed By: #### C MP, GFR #### [address] [address] Eosinophils (Bld) [#/Vol] 0.13 10 3/mcL Normal 0.00-0.65 [facility] [place] Comment on above: Performed By: #### C MP, GFR #### [address] [address] Eosinophils/100 WBC (Bld) 1.5 % Normal 0.0-6.0 [facility] [place] Comment on above: Performed By: #### C MP, GFR #### [address] [address] Erythrocyte distribution width (RBC) [Ratio] 14.5 % Normal 11.5-15.5 [facility] [place] Comment on above: Performed By: #### C MP, GFR #### [address] [address] Hematocrit (Bld) [Volume fraction] 35.6 % Low 40.0-52.0 [facility] [place] Comment on above: Performed By: #### C MP, GFR #### [address] [address] Hemoglobin (Bld) [Mass/Vol] 11.1 G/dL Low 13.0-17.5 [facility] [place] Comment on above: Performed By: #### C MP, GFR #### [address] [address] Imm Granulocyte, Absolute (POC) 0.02 10 3/mcL [facility] [place] Comment on above: Performed By: #### C MP, GFR #### [address] [address] Immature granulocytes (Bld) [#/Vol] 0.2 % Normal [facility] [place] Comment on above: Performed By: #### C MP, GFR #### [address] [address] Lymphocytes (Bld) [#/Vol] 1.98 10 3/mcL Normal 0.90-4.32 [facility] [place] Comment on above: Performed By: #### C MP, GFR #### [address] [address] Lymphocytes/100 WBC (Bld) 22.1 % Normal 20.0-40.0 [facility] [place] Comment on above: Performed By: #### C MP, GFR #### [address] [address] MCH (RBC) [Entitic mass] 26.9 pg Low 27.0-33.0 [facility] [place] Comment on above: Performed By: #### C MP, GFR #### [address] [address] MCHC (RBC) [Mass/Vol] 31.2 G/dL Low 32.0-36.0 [facility] ([place]) Comment on above: Performed By: #### C MP, GFR #### [address] [address] MCV (RBC) [Entitic vol] 86.4 fL Normal 81.0-100.0 [facility] [place] Comment on above: Performed By: #### C MP, GFR #### [address] [address] Monocytes (Bld) [#/Vol] 0.39 10 3/mcL Normal 0.09-1.40 [facility] [place] Comment on above: Performed By: #### C MP, GFR #### [address] [address] Monocytes/100 WBC (Bld) 4.4 % Normal 2.0-13.0 [facility] [place] Comment on above: Performed By: #### C MP, GFR #### [address] [address] Neutrophils (Bld) [#/Vol] 6.41 10 3/mcL Normal 2.25-8.10 [facility] [place] Comment on above: Performed By: #### C MP, GFR #### [address] [address] Neutrophils/100 WBC (Bld) 71.6 % Normal 50.0-75.0 [facility] [place]) Comment on above: Performed By: #### C MP, GFR #### [address] [address] Performing Instrument - POCT SYSMEX [facility] [place] Comment on above: Performed By: #### C MP, GFR #### [address] [address] Platelet mean volume (Bld) [Entitic vol] 9.1 fL Normal 6.4-10.5 [facility] [place] Comment on above: Performed By: #### C MP, GFR #### [address] [address] Platelets (Bld) [#/Vol] 246 10 3/mcL Normal 150-450 [facility] [place] Comment on above: Performed By: #### C MP, GFR #### [place] [phone] RBC (Bld) [#/Vol] 4.12 10 6/mcL Low 4.50-6.00 [facility] ([place]) Comment on above: Performed By: #### C MP, GFR #### [address] [address] WBC (Bld) [#/Vol] 8.95 10 3/mcL Normal 4.50-10.80 [facility] ([place]) Comment on above: Performed By: #### C MP, GFR #### [place] [id number] PRO (POC)on 08-10-2019 Performing Instrument - POCT SIG ELITE [facility] ([place] Comment on above: Performed By: #### P ROPOC #### [facility] [address] [place], [place] [address] PT Coag (PPP) [Time] s Low 9.0-14.6 [facility] ([place]) Comment on above: Result Comment: Prot ann results may be affected by some antibiotics (i.e. Ciprofloxacin, Azithromycin, Bactrim) which may potentiate the action of oral anticoagulants, with further increases in Protime/INR. Performed By: #### P ROPOC #### [facility] [address] [place], [place] [address] PT International Ratio (POC) <0.9 [facility] ([place]) Comment on above: Result Comment: The [place] [employer] (CHEST, 1991, 102:312S-25S) recommended therapeutic range for oral anticoagulant therapy is: LOW RISK: Prophylaxis of venous thrombosis INR: 2.0-3.0 Treatment of pulmonary embolism 2.0-3.0 Prevention of systemic embolism 2.0-3.0 HIGH RISK: Mechanical prosthetic valves 2.5-3.5 Performed By: #### P ROPOC #### [facility] [address] [place], [place] [address] RENAL12 (POC)on 08-10-2019 Albumin [Mass/Vol] 3.7 G/dL Normal 3.2-4.8 [facility] ([place]) Comment on above: Performed By: #### C MP, GFR #### [address] [address] Calcium [Mass/Vol] 9.0 mg/dL Normal 8.4-10.1 [facility] ([place]) Comment on above: Performed By: #### C MP, GFR #### [address] [address] Chloride [Moles/Vol] 104 mmol/L Normal 98-110 [facility] ([place]) Comment on above: Performed By: #### C MP, GFR #### [address] [address] CO2 [Moles/Vol] 28 mmol/L Normal 22-32 [facility] ([place]) Comment on above: Performed By: #### C MP, GFR #### [address] [address] Creatinine [Mass/Vol] 0.90 mg/dL Normal 0.60-1.40 [facility] ([place]) Comment on above: Performed By: #### C MP, GFR #### [address] [address] Est GFR (POC) >60 [facility] ([place] Comment on above: Result Comment: Chronic Kidney Disease: Less than 60 mL/min/1.73 square meters End Stage Renal Disease: Less than 15 mL/min/1.73 square meters Performed By: #### C MP, GFR #### [address] [address] Est GFR Non- (POC) >60 [facility] ([place]) Comment on above: Result Comment: Chronic Kidney Disease: Less than 60 mL/min/1.73 square meters End Stage Renal Disease: Less than 15 mL/min/1.73 square meters Performed By: #### C MP, GFR #### [place] [address] Glucose [Mass/Vol] 101 mg/dL Normal 70-110 [facility] ([place]) Comment on above: Performed By: #### C MP, GFR #### [place] [phone] Lactate [Moles/Vol] 2.1 mmol/L High 0.2-2.0 [facility] ([place]) Comment on above: Performed By: #### C MP, GFR #### [place] [phone] Magnesium [Mass/Vol] 2.0 mg/dL Normal 1.6-2.4 [facility] ([place]) Comment on above: Performed By: #### C MP, GFR #### [place] [address] Performing Instrument - POCT CARLINE Normal [facility] ([place]) Comment on above: Performed By: #### C MP, GFR #### [address] [address] Phosphorus Level (POC) 3.3 mg/dL Normal 2.5-4.5 [facility] ([place]) Comment on above: Performed By: #### C MP, GFR #### [address] [address] Potassium [Moles/Vol] 4.0 mmol/L Normal 3.5-5.0 [facility] ([place]) Comment on above: Performed By: #### C MP, GFR #### [address] [address] Sodium [Moles/Vol] 138 mmol/L Normal 136-145 [facility] ([place]) Comment on above: Performed By: #### C MP, GFR #### [address] [address] Urea nitrogen [Mass/Vol] 10.0 mg/dL Normal 8.0-22.0 [facility] ([place]) Comment on above: Performed By: #### C MP, GFR #### [address] [address] TROP (POC)on 08-10-2019 Performing Instrument - POCT TRIAGE1 [facility] ([place]) Comment on above: Performed By: #### T ROPPOC #### [facility] [address] [place], [place] [address] Troponin I.cardiac [Mass/Vol] ng/mL Normal <=0.05 [facility] ([place]) Comment on above: Result Comment: Trop onin I reference ranges: <0.05 ng/mL Negative and non-diagnostic. >=0.05 ng/mL Consistent with cardiac damage, increased clinical risk and possibility of myocardial infarction. Serial measurements, a rise & fall in test results, clinical history, appropriate symptoms and/or ECG changes may help assess possibility of WI. *Other non-acute coronary syndrome conditions such as CHF, myocarditis, pulmonary emboli, sepsis and cardiac surgery could result in myocardial damage and increased troponin levels. Performed By: #### T ROPPOC #### [facility] [address] [place], [place] [address] XR CHEST 1 VIEWon 08-10-2019 XR CHEST 1 VIEW ORIGINAL XR CHEST 1 VIEW CLINICAL STATEMENT: chest pain COMPARISON: 09/30/2016 FINDINGS: Evaluation is to created secondary to patient's lordotic positioning, portable technique and patient body habitus. The cardiomediastinal contours are normal when accounting for portable technique and positioning. Visualization of the lower lobes is obscured secondary to positioning. There is no visualized consolidation, vascular congestion, large pleural effusion, or pneumothorax. Osseous structures demonstrate no acute abnormalities. IMPRESSION: No acute radiographic findings. Suboptimally visualized lung bases. If there is concern for a lower lobe consolidation. 2 view chest radiograph is recommended. I have personally reviewed the images of this examination and agree with the resident's findings and interpretation. Interpreted By: Phan Adams MD Preliminary Report By: Radha Giang MD Electronically Signed By: Phan Adams MD Dictated Date: 08/10/2019 9:16:55 PM Prelim Date: 08/10/2019 9:20:19 PM Sign Date: 08/10/2019 9:27:31 PM Ordering Provider:Wenceslao Greene [facility] ([place]) CBC Auto DifferentialOrdered By: Satya Boyce on 06-21-2019 Absolute Baso # 0.1 10*3/uL 0 - 0.2 10*3/uL [facility] Work Phone: [phone] Absolute Neut # 3.7 10*3/uL 1.8 - 7 10*3/uL [facility] Work Phone: [phone] Basophils/100 WBC (Bld) 0.8 % 0 - 2 % [facility] Work Phone: [phone] Eosinophils (Bld) [#/Vol] 0.2 10*3/uL 0 - 0.5 10*3/uL [facility] Work Phone: [phone] Eosinophils/100 WBC (Bld) 2.6 % 1 - 6 % [facility] Work Phone: [phone] Erythrocyte distribution width (RBC) [Ratio] 16.3 % High 11.5 - 14.5 % [facility] Work Phone: ) 222 Granulocytes/100 WBC (Bld) 62.1 % 40 - 80 % [facility] Work Phone: [phone] 222 Hematocrit (Bld) [Volume fraction] 33.3 % Low 40 - 52 % [facility] Work Phone: [phone] Hemoglobin (Bld) [Mass/Vol] 10.8 g/dL Low 13 - 18 g/dL [facility] Work Phone: [phone] Interpretation and review of laboratory results Abnormal [facility] Work Phone: [phone] 222 Lymphocytes (Bld) [#/Vol] 1.8 10*3/uL 1 - 4.3 10*3/uL [facility] Work Phone: [phone] Lymphocytes/100 WBC (Bld) 29.4 % 20 - 40 % [facility] Work Phone: [phone] MCH (RBC) [Entitic mass] 27.7 pg 26 - 34 pg [facility] Work Phone: [phone] MCHC 32.3 % 32 - 36 % [facility] Work Phone: [phone] MCV (RBC) [Entitic vol] 85.7 fL 80 - 98 fL [facility] Work Phone: [phone] Monocytes (Bld) [#/Vol] 0.3 10*3/uL 0 - 0.8 10*3/uL [facility] Work Phone: [phone] Monocytes/100 WBC (Bld) 5.1 % 2 - 10 % [facility] Work Phone: [phone] Platelet mean volume (Bld) [Entitic vol] 8.0 fL 7.4 - 10.4 fL [facility] Work Phone: [phone] Platelets (Bld) [#/Vol] 212 10*3/uL 140 - 440 10*3/uL [facility] Work Phone: [phone] RBC (Bld) [#/Vol] 3.89 10*6/uL Low 4.4 - 5.9 10*6/uL [facility] Work Phone: [phone] WBC (Bld) [#/Vol] 6.0 10*3/uL 3.6 - 10.7 10*3/uL [facility] Work Phone: [phone] Test Performed by [facility], [address] [place] [address] [id number] [address] [facility] Work Phone: [phone] Comp Metabolic Panelon 06-21 ALP [Catalytic activity/Vol] 154 U/L High 38-126 [facility] Comment on above: Performed By: #### H EMOG, DDI2, BMP3, LIPA4, TROPN, BNP3 #### [facility] [place] [address] [place] [phone] ALT [Catalytic activity/Vol] 16 U/L Normal 13-69 [facility] Comment on above: Performed By: #### H EMOG, DDI2, BMP3, LIPA4, TROPN, BNP3 #### [place] [address] [place], [place] Calcium [Mass/Vol] 8.9 mg/dL Normal 8.4-10.4 [facility] Comment on above: Performed By: #### H EMOG, DDI2, BMP3, LIPA4, TROPN, BNP3 #### [place] [address] [place], [place] Glucose [Mass/Vol] 139 mg/dL High 70-100 [facility] Comment on above: Performed By: #### H EMOG, DDI2, BMP3, LIPA4, TROPN, BNP3 #### [place] [address] [place], [place] Protein [Mass/Vol] 6.8 g/dL Normal 6.3-8.2 [facility] Comment on above: Performed By: #### H EMOG, DDI2, BMP3, LIPA4, TROPN, BNP3 #### [place] [address] [place], [place] Urea nitrogen [Mass/Vol] 7 mg/dL Normal 7-20 [facility] Comment on above: Performed By: #### H EMOG, DDI2, BMP3, LIPA4, TROPN, BNP3 #### [address] Anion gap [Moles/Vol] 9 Normal [facility] Comment on above: Performed By: #### H EMOG, DDI2, BMP3, LIPA4, TROPN, BNP3 #### [place] [address] [place], [place] GFR/1.73 sq M predicted among non-blacks MDRD (S/P/Bld) [Vol rate/Area] mL/min/{1.73_m2} Normal >60 [facility] Comment on above: Result Comment: Sour ce- MDRD equation with creatinine calibration to IDMS(NKDEP) eGFR not recommended for drug dose adjustment Performed By: #### H EMOG, DDI2, BMP3, LIPA4, TROPN, BNP3 #### [place] [address] [place], [place] Chloride [Moles/Vol] 106 mmol/L Normal 98-107 [facility] Comment on above: Performed By: #### H EMOG, DDI2, BMP3, LIPA4, TROPN, BNP3 #### [place] [address] [place], [place] Potassium [Moles/Vol] 3.6 mmol/L Normal 3.5-5.1 [facility] Comment on above: Performed By: #### H EMOG, DDI2, BMP3, LIPA4, TROPN, BNP3 #### [place] [address] [place], [place] Sodium [Moles/Vol] 140 mmol/L Normal 135-145 [facility] Comment on above: Performed By: #### H EMOG, DDI2, BMP3, LIPA4, TROPN, BNP3 #### [place] [address] [place], [place] Albumin [Mass/Vol] 3.4 g/dL Low 3.5-5.0 [facility] Comment on above: Performed By: #### H EMOG, DDI2, BMP3, LIPA4, TROPN, BNP3 #### [place] [address] [place], [place] Comp Metabolic PanelOrdered By: Satya Boyce on 06-21-2019 AST [Catalytic activity/Vol] 22 U/L Normal 15-46 [facility] Work Phone: Comment on above: Performed By: #### H EMOG, DDI2, BMP3, LIPA4, TROPN, BNP3 #### [place] [address] [place], [place] Bilirubin [Mass/Vol] 0.3 mg/dL Normal 0.2-1.3 [facility] Work Phone: Comment on above: Performed By: #### H EMOG, DDI2, BMP3, LIPA4, TROPN, BNP3 #### [place] [address] [place], [place] CO2 [Moles/Vol] 26 mmol/L Normal 22-30 [facility] Work Phone: [phone] Comment on above: Performed By: #### H EMOG, DDI2, BMP3, LIPA4, TROPN, BNP3 #### [facility] [address] [place] [phone] Creatinine [Mass/Vol] 0.66 mg/dL Normal 0.52-1.25 [facility] Work Phone: [phone] Comment on above: Performed By: #### H EMOG, DDI2, BMP3, LIPA4, TROPN, BNP3 #### [facility] [place] [address] GFR/1.73 sq M.predicted among blacks MDRD (S/P/Bld) [Vol rate/Area] mL/min/{1.73_m2} Normal >[facility] Work Phone: [phone] Comment on above: Performed By: #### H EMOG, DDI2, BMP3, LIPA4, TROPN, BNP3 #### [facility] [address] [place] [phone] Comprehensive Metabolic Pane lOrdered By: Satya Boyce on 06-21-2019 Albumin [Mass/Vol] 3.4 g/dL Low 3.5 - 5 g/dL [facility] [facility] Work Phone: [phone] ALP [Catalytic activity/Vol] 154 U/L High 38 - 126 U/L [facility] Work Phone: [phone] ALT [Catalytic activity/Vol] 16 U/L 13 - 69 U/L [facility] Work Phone: [phone] Anion gap [Moles/Vol] 9 mmol/L [facility] Work Phone: [phone] Calcium [Mass/Vol] 8.9 mg/dL 8.4 - 10. 4 mg/dL [facility] Work Phone: [phone] Chloride [Moles/Vol] 106 mmol/L 98 - 10 7 mmol/L [facility] Work Phone: [phone] EGFR IF NonAfrican Djib[place]ian >60.0 >60 mL/min [facility] Work Phone: [phone] Comment on above: Source- MDRD equatio n with creatinine calibration to IDMS(NKDEP) eGFR not recommended for drug dose adjustment Glucose [Mass/Vol] 139 mg/dL High 70 - 100 mg/dL [facility] Work Phone: Interpretation and review of laboratory results Abnormal [facility] Work Phone: Potassium [Moles/Vol] 3.6 mmol/L 3.5 - 5.1 mmol/L [facility] Work Phone: Protein [Mass/Vol] 6.8 g/dL 6.3 - 8.2 g/dL [facility] Work Phone: Sodium [Moles/Vol] 140 mmol/L 135 - 145 mmol/L [facility] Work Phone: Urea nitrogen [Mass/Vol] 7 mg/dL 7 - 20 mg/dL [facility] Work Phone: Test Performed by [facility], [address] [place] [id number] [facility] Work Phone: Hemogram w/ Autodiffon 06-21 Abs Baso Cnt 0.1 10*3/uL Normal 0.0-0.2 [facility] Comment on above: Performed By: #### H EMOG, DDI2, BMP3, LIPA4, TROPN, BNP3 #### [address] [id number] Abs Neutrophile Cnt 3.7 10*3/uL Normal 1.8-7.0 [facility] Comment on above: Performed By: #### H EMOG, DDI2, BMP3, LIPA4, TROPN, BNP3 #### [address] [id number] Basophils/100 WBC (Bld) 0.8 % Normal 0.0-2.0 [facility] Comment on above: Performed By: #### H EMOG, DDI2, BMP3, LIPA4, TROPN, BNP3 #### [address] [id number] Eosinophils (Bld) [#/Vol] 0.2 10*3/uL Normal 0.0-0.5 [facility] Comment on above: Performed By: #### H EMOG, DDI2, BMP3, LIPA4, TROPN, BNP3 #### [address] Eosinophils/100 WBC (Bld) 2.6 % Normal 1.0-6.0 [facility] Comment on above: Performed By: #### H EMOG, DDI2, BMP3, LIPA4, TROPN, BNP3 #### [address] Erythrocyte distribution width (RBC) [Ratio] 16.3 % High 11.5-14.5 [facility] Comment on above: Performed By: #### H EMOG, DDI2, BMP3, LIPA4, TROPN, BNP3 #### [address] Granulocytes/100 WBC (Bld) 62.1 % Normal 40.0-80.0 [facility] Comment on above: Performed By: #### H EMOG, DDI2, BMP3, LIPA4, TROPN, BNP3 #### [address] Hematocrit (Bld) [Volume fraction] 33.3 % Low 40.0-52.0 [facility] Comment on above: Performed By: #### H EMOG, DDI2, BMP3, LIPA4, TROPN, BNP3 #### [address] [address] [place], [place] Hemoglobin (Bld) [Mass/Vol] 10.8 g/dL Low 13.0-18.0 [facility] Comment on above: Performed By: #### H EMOG, DDI2, BMP3, LIPA4, TROPN, BNP3 #### [address] Lymphocytes (Bld) [#/Vol] 1.8 10*3/uL Normal 1.0-4.3 [facility] Comment on above: Performed By: #### H EMOG, DDI2, BMP3, LIPA4, TROPN, BNP3 #### [address] Lymphocytes/100 WBC (Bld) 29.4 % Normal 20.0-40.0 [facility] Comment on above: Performed By: #### H EMOG, DDI2, BMP3, LIPA4, TROPN, BNP3 #### [address] MCH (RBC) [Entitic mass] 27.7 pg Normal 26.0-34.0 [facility] Comment on above: Performed By: #### H EMOG, DDI2, BMP3, LIPA4, TROPN, BNP3 #### [address] MCHC (RBC) [Mass/Vol] 32.3 % Normal 32.0-36.0 [facility] Comment on above: Performed By: #### H EMOG, DDI2, BMP3, LIPA4, TROPN, BNP3 #### [address] MCV (RBC) [Entitic vol] 85.7 fL Normal 80.0-98.0 [facility] Comment on above: Performed By: #### H EMOG, DDI2, BMP3, LIPA4, TROPN, BNP3 #### [address] Monocytes (Bld) [#/Vol] 0.3 10*3/uL Normal 0.0-0.8 [facility] Comment on above: Performed By: #### H EMOG, DDI2, BMP3, LIPA4, TROPN, BNP3 #### [address] Monocytes/100 WBC (Bld) 5.1 % Normal 2.0-10.0 [facility] Comment on above: Performed By: #### H EMOG, DDI2, BMP3, LIPA4, TROPN, BNP3 #### [address] Platelet mean volume (Bld) [Entitic vol] 8.0 fL Normal 7.4-10.4 [facility] Comment on above: Performed By: #### H EMOG, DDI2, BMP3, LIPA4, TROPN, BNP3 #### [address] [address] [place], [place] Platelets (Bld) [#/Vol] 212 10*3/uL Normal 140-440 [facility] Comment on above: Performed By: #### H EMOG, DDI2, BMP3, LIPA4, TROPN, BNP3 #### [facility] [address] [place], [place] RBC (Bld) [#/Vol] 3.89 10*6/uL Low 4.40-5.90 [facility] Comment on above: Performed By: #### H EMOG, DDI2, BMP3, LIPA4, TROPN, BNP3 #### [address] [address] [place], [place] WBC (Bld) [#/Vol] 6.0 10*3/uL Normal 3.6-10.7 [facility] Comment on above: Performed By: #### H EMOG, DDI2, BMP3, LIPA4, TROPN, BNP3 #### [address] [address] [place], [place] CBC Auto DifferentialOrdered By: Satya Boyce on 06-19-2019 Absolute Baso # 0.0 10*3/uL 0 - 0.2 10*3/uL [facility] Work Phone: Absolute Neut # 3.3 10*3/uL 1.8 - 7 10*3/uL [facility] Work Phone: Basophils/100 WBC (Bld) 0.6 % 0 - 2 % [facility] Work Phone: Eosinophils (Bld) [#/Vol] 0.1 10*3/uL 0 - 0.5 10*3/uL [facility] Work Phone: Eosinophils/100 WBC (Bld) 2.1 % 1 - 6 % [facility] Work Phone: Erythrocyte distribution width (RBC) [Ratio] 16.5 % High 11.5 - 14.5 % [facility] Work Phone: [phone] Granulocytes/100 WBC (Bld) 62.6 % 40 - 80 % [facility] Work Phone: [phone] Hematocrit (Bld) [Volume fraction] 33.5 % Low 40 - 52 % [facility] Work Phone: [phone] Hemoglobin (Bld) [Mass/Vol] 10.6 g/dL Low 13 - 18 g/dL [facility] Work Phone: [phone] Interpretation and review of laboratory results Abnormal [facility] Work Phone: [phone] Lymphocytes (Bld) [#/Vol] 1.5 10*3/uL 1 - 4.3 10*3/uL [facility] Work Phone: [phone] Lymphocytes/100 WBC (Bld) 29.0 % 20 - 40 % [facility] Work Phone: [phone] MCH (RBC) [Entitic mass] 27.6 pg 26 - 34 pg [facility] Work Phone: [phone] MCHC 31.8 % Low 32 - 36 % [facility] Work Phone: [phone] MCV (RBC) [Entitic vol] 86.8 fL 80 - 98 fL [facility] Work Phone: [phone] Monocytes (Bld) [#/Vol] 0.3 10*3/uL 0 - 0.8 10*3/uL [facility] Work Phone: [phone] Monocytes/100 WBC (Bld) 5.7 % 2 - 10 % [facility] Work Phone: [phone] Platelet mean volume (Bld) [Entitic vol] 8.1 fL 7.4 - 10.4 fL [facility] Work Phone: [phone] Platelets (Bld) [#/Vol] 217 10*3/uL 140 - 440 10*3/uL [facility] Work Phone: [phone] RBC (Bld) [#/Vol] 3.86 10*6/uL Low 4.4 - 5.9 10*6/uL [facility] Work Phone: [phone] WBC (Bld) [#/Vol] 5.2 10*3/uL 3.6 - 10.7 10*3/uL [facility] Work Phone: Test Performed by [facility], [address] [place] [address] [facility] Work Phone: Comp Metabolic Panelon 06-19 ALP [Catalytic activity/Vol] 153 U/L High 38-126 [facility] Comment on above: Performed By: #### H EMOG, DDI2, BMP3, LIPA4, TROPN, BNP3 #### [address] [address] [address], [place] ALT [Catalytic activity/Vol] 19 U/L Normal 13-69 [facility] Comment on above: Performed By: #### H EMOG, DDI2, BMP3, LIPA4, TROPN, BNP3 #### [address] AST [Catalytic activity/Vol] 26 U/L Normal 15-46 [facility] Comment on above: Performed By: #### H EMOG, DDI2, BMP3, LIPA4, TROPN, BNP3 #### [address] [address] [place], [place] Bilirubin [Mass/Vol] 0.3 mg/dL Normal 0.2-1.3 [facility] Comment on above: Performed By: #### H EMOG, DDI2, BMP3, LIPA4, TROPN, BNP3 #### [address] [address] [place], [place] Calcium [Mass/Vol] 8.4 mg/dL Normal 8.4-10.4 [facility] Comment on above: Performed By: #### H EMOG, DDI2, BMP3, LIPA4, TROPN, BNP3 #### [address] [address] [place], [place] Glucose [Mass/Vol] 124 mg/dL High 70-100 [facility] Comment on above: Performed By: #### H EMOG, DDI2, BMP3, LIPA4, TROPN, BNP3 #### [address] [address] [place], [place] Protein [Mass/Vol] 7.0 g/dL Normal 6.3-8.2 [facility] Comment on above: Performed By: #### H EMOG, DDI2, BMP3, LIPA4, TROPN, BNP3 #### [address] [address] [place], [place] Urea nitrogen [Mass/Vol] 9 mg/dL Normal 7-20 [facility] Comment on above: Performed By: #### H EMOG, DDI2, BMP3, LIPA4, TROPN, BNP3 #### [address] [address] [place], [place] Anion gap [Moles/Vol] 8 Normal [facility] Comment on above: Performed By: #### H EMOG, DDI2, BMP3, LIPA4, TROPN, BNP3 #### [address] [address] [place], [place] CO2 [Moles/Vol] 26 mmol/L Normal 22-30 [facility] Comment on above: Performed By: #### H EMOG, DDI2, BMP3, LIPA4, TROPN, BNP3 #### [address] [address] [place], [place] Creatinine [Mass/Vol] 0.74 mg/dL Normal 0.52-1.25 [facility] Comment on above: Performed By: #### H EMOG, DDI2, BMP3, LIPA4, TROPN, BNP3 #### [address] [address] [place], [place] GFR/1.73 sq M predicted among blacks MDRD (S/P/Bld) [Vol rate/Area] mL/min/{1.73_m2} Normal >60 [facility] Comment on above: Performed By: #### H EMOG, DDI2, BMP3, LIPA4, TROPN, BNP3 #### [address] [address] [place], [place] GFR/1.73 sq M predicted among non-blacks MDRD (S/P/Bld) [Vol rate/Area] mL/min/{1.73_m2} Normal >60 [facility] Comment on above: Result Comment: Sour ce- MDRD equation with creatinine calibration to IDMS(NKDEP) eGFR not recommended for drug dose adjustment Performed By: #### H EMOG, DDI2, BMP3, LIPA4, TROPN, BNP3 #### [address] [address] [place], [place] Albumin [Mass/Vol] 3.6 g/dL Normal 3.5-5.0 [facility] Comment on above: Performed By: #### H EMOG, DDI2, BMP3, LIPA4, TROPN, BNP3 #### [address] [address] [place], [place] Potassium [Moles/Vol] 3.9 mmol/L Normal 3.5-5.1 [facility] Comment on above: Performed By: #### H EMOG, DDI2, BMP3, LIPA4, TROPN, BNP3 #### [address] [address] [place], [place] Sodium [Moles/Vol] 139 mmol/L Normal 135-145 [facility] Comment on above: Performed By: #### H EMOG, DDI2, BMP3, LIPA4, TROPN, BNP3 #### [address] [address] [place], [place] Chloride [Moles/Vol] 105 mmol/L Normal 98-107 [facility] Comment on above: Performed By: #### H EMOG, DDI2, BMP3, LIPA4, TROPN, BNP3 #### [address] [address] [place], [place] Comprehensive Metabolic Pane lOrdered By: Satya Boyce on 06-19-2019 Albumin [Mass/Vol] 3.6 g/dL 3.5 - 5 g/dL [facility] Work Phone: ALP [Catalytic activity/Vol] 153 U/L High 38 - 126 U/L [facility] Work Phone: ALT [Catalytic activity/Vol] 19 U/L 13 - 69 U/L [facility] Work Phone: Anion gap [Moles/Vol] 8 mmol/L [facility] Work Phone: AST [Catalytic activity/Vol] 26 U/L 15 - 46 U/L [facility] Work Phone: [phone] Bilirubin [Mass/Vol] 0.3 mg/dL 0.2 - 1 .3 mg/dL [facility] Work Phone: [phone] Calcium [Mass/Vol] 8.4 mg/dL 8.4 - 10. 4 mg/dL [facility] Work Phone: [phone] Chloride [Moles/Vol] 105 mmol/L 98 - 10 7 mmol/L [facility] Work Phone: [phone] CO2 [Moles/Vol] 26 mmol/L 22 - 30 mmol/L [facility] Work Phone: [phone] Creatinine [Mass/Vol] 0.74 mg/dL 0.52 - 1.25 mg/dL [facility] Work Phone: [phone] EGFR IF NonAfrican [place]iboutian >60.0 >60 mL/min [facility] Work Phone: [phone] Comment on above: Source- MDRD equatio n with creatinine calibration to IDMS(NKDEP) eGFR not recommended for drug dose adjustment GFR/1.73 sq M.predicted among blacks MDRD (S/P/Bld) [Vol rate/Area] mL/min/{1.73_m2} >60 mL/min [facility] Work Phone: [phone] Glucose [Mass/Vol] 124 mg/dL High 70 - 100 mg/dL [facility] Work Phone: [phone] Interpretation and review of laboratory results Abnormal [facility] Work Phone: [phone] Potassium [Moles/Vol] 3.9 mmol/L 3.5 - 5.1 mmol/L [facility] Work Phone: [phone] Protein [Mass/Vol] 7.0 g/dL 6.3 - 8.2 g/dL [facility] Work Phone: [phone] Sodium [Moles/Vol] 139 mmol/L 135 - 145 mmol/L [facility] Work Phone: [phone] Urea nitrogen [Mass/Vol] 9 mg/dL 7 - 20 mg/dL [facility] Work Phone: [phone] Test Performed by [facility], [address] [place] [id number] [facility] Work Phone: Hemogram w/ Autodiffon 06-19 Abs Baso Cnt 0.0 10*3/uL Normal 0.0-0.2 [facility] Comment on above: Performed By: #### H EMOG, DDI2, BMP3, LIPA4, TROPN, BNP3 #### [address] [address] [place], [place] Abs Neutrophile Cnt 3.3 10*3/uL Normal 1.8-7.0 [facility] Comment on above: Performed By: #### H EMOG, DDI2, BMP3, LIPA4, TROPN, BNP3 #### [address] [address] [place], [place] Basophils/100 WBC (Bld) 0.6 % Normal 0.0-2.0 [facility] Comment on above: Performed By: #### H EMOG, DDI2, BMP3, LIPA4, TROPN, BNP3 #### [address] [address] [place], [place] Eosinophils (Bld) [#/Vol] 0.1 10*3/uL Normal 0.0-0.5 [facility] Comment on above: Performed By: #### H EMOG, DDI2, BMP3, LIPA4, TROPN, BNP3 #### [address] [address] [place], [place] Eosinophils/100 WBC (Bld) 2.1 % Normal 1.0-6.0 [facility] Comment on above: Performed By: #### H EMOG, DDI2, BMP3, LIPA4, TROPN, BNP3 #### [address] Erythrocyte distribution width (RBC) [Ratio] 16.5 % High 11.5-14.5 [facility] Comment on above: Performed By: #### H EMOG, DDI2, BMP3, LIPA4, TROPN, BNP3 #### [address] Granulocytes/100 WBC (Bld) 62.6 % Normal 40.0-80.0 [facility] Comment on above: Performed By: #### H EMOG, DDI2, BMP3, LIPA4, TROPN, BNP3 #### [address] Hematocrit (Bld) [Volume fraction] 33.5 % Low 40.0-52.0 [facility] Comment on above: Performed By: #### H EMOG, DDI2, BMP3, LIPA4, TROPN, BNP3 #### [address] Hemoglobin (Bld) [Mass/Vol] 10.6 g/dL Low 13.0-18.0 [facility] Comment on above: Performed By: #### H EMOG, DDI2, BMP3, LIPA4, TROPN, BNP3 #### [address] Lymphocytes (Bld) [#/Vol] 1.5 10*3/uL Normal 1.0-4.3 [facility] Comment on above: Performed By: #### H EMOG, DDI2, BMP3, LIPA4, TROPN, BNP3 #### [address] Lymphocytes/100 WBC (Bld) 29.0 % Normal 20.0-40.0 [facility] Comment on above: Performed By: #### H EMOG, DDI2, BMP3, LIPA4, TROPN, BNP3 #### [address] MCH (RBC) [Entitic mass] 27.6 pg Normal 26.0-34.0 [facility] Comment on above: Performed By: #### H EMOG, DDI2, BMP3, LIPA4, TROPN, BNP3 #### [address] MCHC (RBC) [Mass/Vol] 31.8 % Low 32.0-36.0 [facility] Comment on above: Performed By: #### H EMOG, DDI2, BMP3, LIPA4, TROPN, BNP3 #### [address] [address] [place], [place] MCV (RBC) [Entitic vol] 86.8 fL Normal 80.0-98.0 [facility] Comment on above: Performed By: #### H EMOG, DDI2, BMP3, LIPA4, TROPN, BNP3 #### [address] [address] [place], [place] Monocytes (Bld) [#/Vol] 0.3 10*3/uL Normal 0.0-0.8 [facility] Comment on above: Performed By: #### H EMOG, DDI2, BMP3, LIPA4, TROPN, BNP3 #### [address] [address] [place], [place] Monocytes/100 WBC (Bld) 5.7 % Normal 2.0-10.0 [facility] Comment on above: Performed By: #### H EMOG, DDI2, BMP3, LIPA4, TROPN, BNP3 #### [address] [address] [place], [place] Platelet mean volume (Bld) [Entitic vol] 8.1 fL Normal 7.4-10.4 [facility] Comment on above: Performed By: #### H EMOG, DDI2, BMP3, LIPA4, TROPN, BNP3 #### [address] [address] [place], [place] Platelets (Bld) [#/Vol] 217 10*3/uL Normal 140-440 [facility] Comment on above: Performed By: #### H EMOG, DDI2, BMP3, LIPA4, TROPN, BNP3 #### [address] [address] [place], [place] RBC (Bld) [#/Vol] 3.86 10*6/uL Low 4.40-5.90 [facility] Comment on above: Performed By: #### H EMOG, DDI2, BMP3, LIPA4, TROPN, BNP3 #### [address] [address] [place], [place] WBC (Bld) [#/Vol] 5.2 10*3/uL Normal 3.6-10.7 [facility] Comment on above: Performed By: #### H EMOG, DDI2, BMP3, LIPA4, TROPN, BNP3 #### [address] APTTon 06-17-2019 aPTT Coag (Bld) [Time] 25.9 s Normal 20.0-30.5 [facility] Comment on above: Result Comment: NOTE : The therapeutic time for Heparin anticoagulation, based on Xa activity inhibition, is an APTT of 46-80 seconds. Performed By: #### H EMOG, DDI2, BMP3, LIPA4, TROPN, BNP3 #### [address] APTTOrdered By: Arian ernst on 06-17-2019 aPTT Coag (Bld) [Time] 25.9 s 20 - 30.5 s [facility] Work Phone: Comment on above: NOTE: The therapeuti c time for Heparin anticoagulation, based on Xa activity inhibition, is an APTT of 46-80 seconds. Test Performed by [facility], [address] [place] [address] [facility] Work Phone: Basic Metabolic Panelon 06-02 Anion gap [Moles/Vol] 8 Normal [facility] Comment on above: Performed By: #### H EMOG, DDI2, BMP3, LIPA4, TROPN, BNP3 #### [address] [address] [place], [place] Calcium [Mass/Vol] 8.9 mg/dL Normal 8.4-10.4 [facility] Comment on above: Performed By: #### H EMOG, DDI2, BMP3, LIPA4, TROPN, BNP3 #### [address] CO2 [Moles/Vol] 25 mmol/L Normal 22-30 [facility] Comment on above: Performed By: #### H EMOG, DDI2, BMP3, LIPA4, TROPN, BNP3 #### [address] Creatinine [Mass/Vol] 0.67 mg/dL Normal 0.52-1.25 [facility] Comment on above: Performed By: #### H EMOG, DDI2, BMP3, LIPA4, TROPN, BNP3 #### [address] GFR/1.73 sq M predicted among blacks MDRD (S/P/Bld) [Vol rate/Area] mL/min/{1.73_m2} Normal >60 [facility] Comment on above: Performed By: #### H EMOG, DDI2, BMP3, LIPA4, TROPN, BNP3 #### [address] GFR/1.73 sq M predicted among non-blacks MDRD (S/P/Bld) [Vol rate/Area] mL/min/{1.73_m2} Normal >60 [facility] Comment on above: Result Comment: Sour ce- MDRD equation with creatinine calibration to IDMS(NKDEP) eGFR not recommended for drug dose adjustment Performed By: #### H EMOG, DDI2, BMP3, LIPA4, TROPN, BNP3 #### [address] Glucose [Mass/Vol] 101 mg/dL High 70-100 [facility] Comment on above: Performed By: #### H EMOG, DDI2, BMP3, LIPA4, TROPN, BNP3 #### [address] Urea nitrogen [Mass/Vol] 9 mg/dL Normal 7-20 [facility] Comment on above: Performed By: #### H EMOG, DDI2, BMP3, LIPA4, TROPN, BNP3 #### [address] Chloride [Moles/Vol] 103 mmol/L Normal 98-107 [facility] Comment on above: Performed By: #### H EMOG, DDI2, BMP3, LIPA4, TROPN, BNP3 #### [facility] [address] [place], [place] Potassium [Moles/Vol] 4.0 mmol/L Normal 3.5-5.1 [facility] Comment on above: Performed By: #### H EMOG, DDI2, BMP3, LIPA4, TROPN, BNP3 #### [facility] [address] [place], [place] Sodium [Moles/Vol] 136 mmol/L Normal 135-145 [facility] Comment on above: Performed By: #### H EMOG, DDI2, BMP3, LIPA4, TROPN, BNP3 #### [facility] [address] [place], [place] Basic Metabolic PanelOrdered By: Arian Dimas on 06-17-2019 Anion gap [Moles/Vol] 8 mmol/L [facility] Work Phone: Calcium [Mass/Vol] 8.9 mg/dL 8.4 - 10. 4 mg/dL [facility] Work Phone: Chloride [Moles/Vol] 103 mmol/L 98 - 10 7 mmol/L [facility] Work Phone: CO2 [Moles/Vol] 25 mmol/L 22 - 30 mmol/L [facility] Work Phone: Creatinine [Mass/Vol] 0.67 mg/dL 0.52 - 1.25 mg/dL [facility] Work Phone: EGFR IF NonAfrican [place]ib[place]ian >60.0 >60 mL/min [facility] Work Phone: Comment on above: Source- MDRD equatio n with creatinine calibration to IDMS(NKDEP) eGFR not recommended for drug dose adjustment GFR/1.73 sq M.predicted among blacks MDRD (S/P/Bld) [Vol rate/Area] mL/min/{1.73_m2} >60 mL/min [facility] Work Phone: Glucose [Mass/Vol] 101 mg/dL High 70 - 100 mg/dL [facility] Work Phone: Interpretation and review of laboratory results Abnormal [facility] Work Phone: Potassium [Moles/Vol] 4.0 mmol/L 3.5 - 5.1 mmol/L [facility] Work Phone: Sodium [Moles/Vol] 136 mmol/L 135 - 145 mmol/L [facility] Work Phone: Urea nitrogen [Mass/Vol] 9 mg/dL 7 - 20 mg/dL [facility] Work Phone: Test Performed by [address] [address] [facility] Work Phone: CT Cervical Spine WO Contras tOrdered By: Arian Dimas on 06-17-2019 Patient Name: NATALIE GERBER ---CT--- Exam Date/Time 06/17/2019 20:40:[address] Spine Cervical w/o Contrast Ordering Physician MD DIMAS KIMBERLY Accession Number [id number] CPT4 Codes 22375 () Reason For Exam fall Report CT CERVICAL SPINE WITHOUT CONTRAST: INDICATION: Neck pain after fall COMPARISON: None. Axial scans of the cervical spine performed from the skull base to the thoracic inlet, with sagittal and coronal reconstructions. On the sagittal reconstruction images, there is straightening of the cervical lordosis. Multilevel disc space narrowing is present, most notably at C5-6 and C6-7 with marginal spurring and bilateral foraminal encroachment without nerve root impingement at C5-C6. There is no evidence of fracture or subluxation in the cervical spine. The prevertebral soft-tissues are normal. The craniocervical junction and C1-2 junction appear normal. The odontoid is intact. 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 Report Dictated on --- Final --- Dictated: 06/17/2019 8:45 pm Dictating Physician: DO COLEMAN ALFRED Signed Date and Time: 06/17/2019 8:47 pm Signed by: DO COLEMAN ALFRED Transcribed Date and Time: 06/17/2019 8:45 [facility] Work Phone: [place], [facility] Incoming Radiology Results From [facility] - 06/17/2019 8:48 PM EST Patient Name: NATALIE GERBER ---CT--- Exam Date/Time 06/17/2019 20:40:[address] Spine Cervical w/o Contrast Ordering Physician MD DIMAS KIMBERLY Accession Number [id number] CPT4 Codes 44735 () Reason For Exam fall Report CT CERVICAL SPINE WITHOUT CONTRAST: INDICATION: Neck pain after fall COMPARISON: None. Axial scans of the cervical spine performed from the skull base to the thoracic inlet, with sagittal and coronal reconstructions. On the sagittal reconstruction images, there is straightening of the cervical lordosis. Multilevel disc space narrowing is present, most notably at C5-6 and C6-7 with marginal spurring and bilateral foraminal encroachment without nerve root impingement at C5-C6. There is no evidence of fracture or subluxation in the cervical spine. The prevertebral soft-tissues are normal. The craniocervical junction and C1-2 junction appear normal. The odontoid is intact. 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 Report Dictated on --- Final --- Dictated: 06/17/2019 8:45 pm Dictating Physician: DO COLEMAN ALFRED Signed Date and Time: 06/17/2019 8:47 pm Signed by: DO COLEMAN ALFRED Transcribed Date and Time: 06/17/2019 8:45 [facility] Work Phone: CT Head WO ContrastOrdered B y: Arian Dimas on 06-17-2019 Patient Name: NATALIE GERBER ---CT--- Exam Date/Time 06/17/2019 20:39:[address] Head or Brain w/o Contrast Ordering Physician MD DIMAS KIMBERLY Accession Number [id number] CPT4 Codes 11909 () Reason For Exam head trauma, +plavix Report CT HEAD WITHOUT CONTRAST: INDICATION: Fall, striking head, transient alteration of awareness COMPARISON: None. Unenhanced CT images of the head from skull base to vertex were obtained. The images are reviewed in the axial, sagittal and coronal planes. The ventricles and sulci are within normal limits for the patient's age. There is no evidence of hemorrhage, mass or large acute infarct. There is no mass or significant shift of the midline structures. There are no extraaxial or posterior fossa masses or fluid collections. The hypothalamic and parasellar regions are unremarkable. The paranasal sinuses are clear. IMPRESSION: Negative CT examination of the brain. Report Dictated on --- Final --- Dictated: 06/17/2019 8:43 pm Dictating Physician: DO COLEMAN ALFRED Signed Date and Time: 06/17/2019 8:44 pm Signed by: DO COLEMAN ALFRED Transcribed Date and Time: 06/17/2019 8:43 [facility] Work Phone: [facility] From [facility] - 06/17/2019 8:46 PM EST Patient Name: NATALIE GERBER ---CT--- Exam Date/Time 06/17/2019 20:39:[address] Head or Brain w/o Contrast Ordering Physician MD WING ARIAN Accession Number [id number] CPT4 Codes 21769 () Reason For Exam head trauma, +plavix Report CT HEAD WITHOUT CONTRAST: INDICATION: Fall, striking head, transient alteration of awareness COMPARISON: None. Unenhanced CT images of the head from skull base to vertex were obtained. The images are reviewed in the axial, sagittal and coronal planes. The ventricles and sulci are within normal limits for the patient's age. There is no evidence of hemorrhage, mass or large acute infarct. There is no mass or significant shift of the midline structures. There are no extraaxial or posterior fossa masses or fluid collections. The hypothalamic and parasellar regions are unremarkable. The paranasal sinuses are clear. IMPRESSION: Negative CT examination of the brain. Report Dictated on --- Final --- Dictated: 06/17/2019 8:43 pm Dictating Physician: DO COLEMAN ALFRED Signed Date and Time: 06/17/2019 8:44 pm Signed by: DO COLEMAN ALFRED Transcribed Date and Time: 06/17/2019 8:43 [facility] Work Phone: CT Head or Brain w/o Contras ton 06-17-2019 CT Head or Brain w/o Contrast Patient Name: NATALIE GERBER CT Exam Date/Time 06/17/2019 20:39:[address] Head or Brain w/o Contrast Ordering Physician MD DIMAS KIMBERLY Accession Number [id number] CPT4 Codes 41549 () Reason For Exam head trauma, +plavix Report CT HEAD WITHOUT CONTRAST: INDICATION: Fall, striking head, transient alteration of awareness COMPARISON: None. Unenhanced CT images of the head from skull base to vertex were obtained. The images are reviewed in the axial, sagittal and coronal planes. The ventricles and sulci are within normal limits for the patient's age. There is no evidence of hemorrhage, mass or large acute infarct. There is no mass or significant shift of the midline structures. There are no extraaxial or posterior fossa masses or fluid collections. The hypothalamic and parasellar regions are unremarkable. The paranasal sinuses are clear. IMPRESSION: Negative CT examination of the brain. Report Dictated on Final Dictated: 06/17/2019 8:43 pm Dictating Physician: DO COLEMAN ALFRED Signed Date and Time: 06/17/2019 8:44 pm Signed by: DO COLEMAN ALFRED Transcribed Date and Time: 06/17/2019 8:43 Normal [facility] CT Spine Cervical w/o Contra ston 06-17-2019 CT Spine Cervical w/o Contrast Patient Name: NATALIE GERBER CT Exam Date/Time 06/17/2019 20:40:[address] Spine Cervical w/o Contrast Ordering Physician MD DIMAS KIMBERLY Accession Number [id number] CPT4 Codes 88215 () Reason For Exam fall Report CT CERVICAL SPINE WITHOUT CONTRAST: INDICATION: Neck pain after fall COMPARISON: None. Axial scans of the cervical spine performed from the skull base to the thoracic inlet, with sagittal and coronal reconstructions. On the sagittal reconstruction images, there is straightening of the cervical lordosis. Multilevel disc space narrowing is present, most notably at C5-6 and C6-7 with marginal spurring and bilateral foraminal encroachment without nerve root impingement at C5-C6. There is no evidence of fracture or subluxation in the cervical spine. The prevertebral soft-tissues are normal. The craniocervical junction and C1-2 junction appear normal. The odontoid is intact. 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 Report Dictated on Final Dictated: 06/17/2019 8:45 pm Dictating Physician: DO COLEMAN ALFRED Signed Date and Time: 06/17/2019 8:47 pm Signed by: DO COLEMAN ALFRED Transcribed Date and Time: 06/17/2019 8:45 Normal [facility] Hemogramon 06-17-2019 Erythrocyte distribution width (RBC) [Ratio] 16.6 % High 11.5-14.5 [facility] Comment on above: Performed By: #### H EMOG, DDI2, BMP3, LIPA4, TROPN, BNP3 #### [address] Hematocrit (Bld) [Volume fraction] 33.4 % Low 40.0-52.0 [facility] Comment on above: Performed By: #### H EMOG, DDI2, BMP3, LIPA4, TROPN, BNP3 #### [address] Hemoglobin (Bld) [Mass/Vol] 10.6 g/dL Low 13.0-18.0 [facility] Comment on above: Performed By: #### H EMOG, DDI2, BMP3, LIPA4, TROPN, BNP3 #### [address] MCH (RBC) [Entitic mass] 27.2 pg Normal 26.0-34.0 [facility] Comment on above: Performed By: #### H EMOG, DDI2, BMP3, LIPA4, TROPN, BNP3 #### [address] MCHC (RBC) [Mass/Vol] 31.8 % Low 32.0-36.0 [facility] Comment on above: Performed By: #### H EMOG, DDI2, BMP3, LIPA4, TROPN, BNP3 #### [address] MCV (RBC) [Entitic vol] 85.6 fL Normal 80.0-98.0 [facility] Comment on above: Performed By: #### H EMOG, DDI2, BMP3, LIPA4, TROPN, BNP3 #### [address] Platelet mean volume (Bld) [Entitic vol] 7.8 fL Normal 7.4-10.4 [facility] Comment on above: Performed By: #### H EMOG, DDI2, BMP3, LIPA4, TROPN, BNP3 #### [address] Platelets (Bld) [#/Vol] 242 10*3/uL Normal 140-440 [facility] Comment on above: Performed By: #### H EMOG, DDI2, BMP3, LIPA4, TROPN, BNP3 #### [address] RBC (Bld) [#/Vol] 3.91 10*6/uL Low 4.40-5.90 [facility] Comment on above: Performed By: #### H EMOG, DDI2, BMP3, LIPA4, TROPN, BNP3 #### [address] WBC (Bld) [#/Vol] 8.0 10*3/uL Normal 3.6-10.7 [facility] Comment on above: Performed By: #### H EMOG, DDI2, BMP3, LIPA4, TROPN, BNP3 #### [address] [place] [address] Hemogram (CBC)Ordered By: Sloan Dimas on 06-17-2019 Erythrocyte distribution width (RBC) [Ratio] 16.6 % High 11.5 - 14.5 % [facility] Work Phone: [phone] Hematocrit (Bld) [Volume fraction] 33.4 % Low 40 - 52 % [facility] Work Phone: [phone] Hemoglobin (Bld) [Mass/Vol] 10.6 g/dL Low 13 - 18 g/dL [facility] Work Phone: [phone] Interpretation and review of laboratory results Abnormal [facility] Work Phone: [phone] MCH (RBC) [Entitic mass] 27.2 pg 26 - 34 pg [facility] Work Phone: [phone] MCHC 31.8 % Low 32 - 36 % [facility] Work Phone: [phone] MCV (RBC) [Entitic vol] 85.6 fL 80 - 98 fL [facility] Work Phone: [phone] Platelet mean volume (Bld) [Entitic vol] 7.8 fL 7.4 - 10.4 fL [facility] Work Phone: [phone] Platelets (Bld) [#/Vol] 242 10*3/uL 140 - 440 10*3/uL [facility] Work Phone: [phone] RBC (Bld) [#/Vol] 3.91 10*6/uL Low 4.4 - 5.9 10*6/uL [facility] Work Phone: [phone] WBC (Bld) [#/Vol] 8.0 10*3/uL 3.6 - 10.7 10*3/uL [facility] Work Phone: [phone] Test Performed by [facility] [place], [address] [place] [id number] [address] Work Phone: [phone] Prothrombin Timeon 0 INR Coag (PPP) [Relative time] 1.0 Normal 0.9-1.1 [facility] [place] Comment on above: Result Comment: Doe mmended Anticoagulant Therapy: SEE BELOW ----- INR of 2.0 - 3.0 : - Prophylaxis of Venous Thrombosis (high-risk surgery) - Treatment of Venous Thrombosis - Treatment of Pulmonary Embolism (Includes tissue heart valves, Acute Myocardial Infarction to prevent systemic embolism, Valvular Heart Disease, and Atrial Fibrillation) ----- INR of 2.5 - 3.5 : - Mechanical Prosthetic Valves (high risk) - If oral anticoagulant therapy is used to prevent Myocardial Infarction Performed By: #### H EMOG, DDI2, BMP3, LIPA4, TROPN, BNP3 #### [address] [id number] PT Coag (PPP) [Time] 10.2 s Normal 9.0-12.0 [facility] Comment on above: Result Comment: . Performed By: #### H EMOG, DDI2, BMP3, LIPA4, TROPN, BNP3 #### [address] [id number] Protime-INROrdered By: Sonya Dimas on 06-17-2019 INR Coag (PPP) [Relative time] 1.0 {INR} [facility] Work Phone: Comment on above: Recommended Anticoag ulant Therapy: SEE BELOW ----- INR of 2.0 - 3.0 : - Prophylaxis of Venous Thrombosis (high-risk surgery) - Treatment of Venous Thrombosis - Treatment of Pulmonary Embolism (Includes tissue heart valves, Acute Myocardial Infarction to prevent systemic embolism, Valvular Heart Disease, and Atrial Fibrillation) ----- INR of 2.5 - 3.5 : - Mechanical Prosthetic Valves (high risk) - If oral anticoagulant therapy is used to prevent Myocardial Infarction PT Coag (PPP) [Time] 10.2 s 9 - [address] [facility] Work Phone: Comment on above: . Test Performed by [facility], [address] [place] [address] [facility] Work Phone: Glucose Meteron 05-10-2019 Glucose [Mass/Vol] 124 mg/dL High 70-99 [facility] Comment on above: Result Comment: GABO Trujillo OTIFIED Performed By: #### G FR #### [address] [address] Activated PTTon 05-09-2019 aPTT Coag (Bld) [Time] 26.9 s Normal 23.0-32.4 [facility] Comment on above: Result Comment: Unfr actionated Heparin Therapeutic Ranges: Standard Heparin Nomogram: 53 to 78 seconds (anti-Xa level of 0.3 to 0.7 U/mL) Low Dose/ACS Nomogram: 49 to 67 seconds (anti-Xa level of 0.2 to 0.5 U/mL) Stroke Treatment Nomogram: 49 to 67 seconds (anti-Xa level of 0.2 to 0.5 U/mL) Note: The APTT therapeutic range has been determined for the current lot of laboratory APTT reagent in use throughout the [facility]. Performed By: #### E RTRP #### [address] [address] Basic Panelon 05-09-2019 Creatinine [Mass/Vol] 0.61 mg/dL Low 0.67-1.17 [facility] Comment on above: Performed By: #### G FR #### [address] [address] Glucose [Mass/Vol] 103 mg/dL High 70-99 [facility] Comment on above: Performed By: #### G FR #### [address] [address] Anion gap [Moles/Vol] 8 mmol/L Normal 8-16 [facility] Comment on above: Performed By: #### G FR #### [address] [address] Calcium [Mass/Vol] 8.6 mg/dL Normal 8.5-10.1 [facility] Comment on above: Performed By: #### G FR #### [address] [address] CO2 [Moles/Vol] 29 mmol/L Normal 21-32 [facility] Comment on above: Performed By: #### G FR #### [address] [address] Urea nitrogen [Mass/Vol] 8 mg/dL Normal 7-18 [facility] Comment on above: Performed By: #### G FR #### [facility] [address] [place], [place] [address] Chloride [Moles/Vol] 104 mmol/L Normal 98-107 [facility] Comment on above: Performed By: #### G FR #### [facility] [address] [place], [place] [address] Potassium [Moles/Vol] 4.1 mmol/L Normal 3.5-5.1 [facility] Comment on above: Performed By: #### G FR #### [facility] [address] [place], [place] [address] Sodium [Moles/Vol] 137 mmol/L Normal 136-145 [facility] Comment on above: Performed By: #### G FR #### [facility] [address] [place], [place] [address] CT BRAIN ATTACK WO IVCONon 1 07-10-2018 CT BRAIN ATTACK WO IVCON * * *Final Report* * * DATE OF EXAM: May 09 2019 4:25PM [facility] 0502 - CT BRAIN ATTACK WO IVCON / PROCEDURE REASON: Focal neuro deficit, new, fixed, or worsening, 4.5 to 24 hours, NIHSS < 6, strok * * * * Physician Interpretation * * * * EXAMINATION: CT BRAIN ATTACK WO IVCON CLINICAL HISTORY: Left-sided weakness Brain attack. TECHNIQUE: Routine CT of the brain without IV contrast. MQ: CTBA_4 CT Dose-Length Product (DLP): 846 mGy*cm CT Dose Reduction Employed: Iterative recon COMPARISON: CT brain 02/17/2019 RESULT: Acute ischemic change: None. ASPECT Score = 10 Hemorrhage: No evidence of acute intracranial hemorrhage. ECASS Hemorrhagic Transformation Score = Not Applicable Mass Lesion / Mass Effect: There is no evidence of an intracranial mass or extraaxial fluid collection. No significant mass effect. Chronic change: Scattered patchy foci of low attenuation are present within white matter which is a nonspecific finding but likely represents mild microvascular ischemia. Small remote infarct right cerebellar hemisphere. Parenchyma: There is no significant volume loss. The brain parenchyma is otherwise within normal limits for age. Ventricles: Normal caliber and morphology. Other: The visualized calvarium, skull base, orbits and extracranial soft tissues are normal. IMPRESSION: 1. No acute intracranial abnormality is seen. No evidence of acute territorial infarct or hemorrhage. 2. Mild chronic changes as above CRITICAL TEST/RESULTS: Notification initiated at [address] Cunha on 05/09/2019 at 1632 hours. CR_1 Gill Box Fixer: SHIRA Transcribe Date/Time: May 09 2019 4:29P Dictated by : DMITRY LUCIA MD This examination was interpreted and the report reviewed and electronically signed by: DMITRY LUCIA MD on May 09 2019 4:34PM EST CRITICAL!! Critically high [facility] CTA HEAD W IVCONon 9 CTA HEAD W IVCON * * *Final Report* * * DATE OF EXAM: May 09 2019 6:57PM [facility] 0022 - CTA HEAD W IVCON / PROCEDURE REASON: Focal neuro deficit, new, fixed, or worsening, 4.5 to 24 hours, NIHSS < 6, strok * * * * Physician Interpretation * * * * EXAMINATION: CTA HEAD W IVCON, CTA NECK W IVCON CLINICAL HISTORY: Left-sided weakness; possible stroke TECHNIQUE: Spiral high resolution axial images were obtained through the head, neck and superior mediastinum following bolus administration of intravenous contrast for CT angiography. 3D maximum intensity projection images were created, reviewed and archived . MQ: CTAHN_4 Contrast: 100 mL Omnipaque 350 IV Dose-Length Product (DLP): 632 mGy*cm. CT Dose Reduction Employed: Automated exposure control(AEC) and iterative recon COMPARISON: CT brain done earlier today RESULT: The study is somewhat degraded by patient body habitus. In particular the origin of the great vessels and the proximal carotids and vertebrals are obscured by very large body habitus. BRAIN: Evaluation of the individual slices of the CTA demonstrates no evidence of an acute stroke. ASPECT Score = 10 Hemorrhage: No evidence of acute intracranial hemorrhage. ECASS hemorrhagic transformation score: Not Applicable Spot Sign Presence: Not Applicable Spot Sign Number: Not Applicable NECK: Soft tissues: The soft tissue planes are maintained throughout. No evidence of a soft tissue mass in the neck or superior mediastinum. No significant lymphadenopathy is seen. Spine: Alignment is normal. Moderate degenerative changes are present. Lung apices: The visualized lung apices are clear. CT ARTERIOGRAM: Extracranial Circulation: Aortic Arch: There is a normal branching pattern from the aortic arch.. There is no significant stenosis in the proximal brachiocephalic vessels. Carotid Stenosis: Right Common: No significant stenosis. Right Internal Carotid Plaque: No significant plaque formation. Right Internal Carotid Stenosis (% by NASCET Criteria): 0% There is a medialized/retropharyngeal course of the right internal carotid artery. Left Common: No significant stenosis. Left Internal Carotid Plaque: No significant plaque formation. Left Internal Carotid Stenosis (% by NASCET Criteria): 0% There is a medial/retropharyngeal course of the left internal carotid artery. Cervical Vertebral Arteries: Patency: Bilateral Dominance: Codominant Intracranial Circulation: Anterior Circulation: The distal internal carotid arteries, bilateral MCA and ISIS vessels are patent and unremarkable. No evidence of aneurysm or AV malformation. The major dural venous sinuses appear to be patent. No enhancing abnormalities are seen within the brain parenchyma. Vertebrobasilar Circulation: Distal vertebral arteries and the basilar artery are patent and unremarkable. Bilateral posterior cerebral arteries arise normally and are patent. IMPRESSION: CT ANGIOGRAPHY OF THE BRAIN: 1. Unremarkable [place]. No high-grade stenosis or proximal occlusion CT ANGIOGRAPHY OF THE NECK: 1. No flow-limiting stenosis is seen of the carotids or vertebrals. Incidental findings as above. [facility] Transcribe Date/Time: May 09 2019 7:10P Dictated by : DMITRY LUCIA MD This examination was interpreted and the report reviewed and electronically signed by: DMITRY LUCIA MD on May 09 2019 7:23PM EST Normal [facility] CTA NECK W IVCONon 12-08-201 9 CTA NECK W IVCON * * *Final Report* * * DATE OF EXAM: May 09 2019 6:57PM [facility] 0024 - CTA NECK W IVCON / PROCEDURE REASON: Focal neuro deficit, new, fixed, or worsening, 4.5 to 24 hours, NIHSS < 6, strok * * * * Physician Interpretation * * * * EXAMINATION: CTA HEAD W IVCON, CTA NECK W IVCON CLINICAL HISTORY: Left-sided weakness; possible stroke TECHNIQUE: Spiral high resolution axial images were obtained through the head, neck and superior mediastinum following bolus administration of intravenous contrast for CT angiography. 3D maximum intensity projection images were created, reviewed and archived . MQ: CTAHN_4 Contrast: 100 mL Omnipaque 350 IV Dose-Length Product (DLP): 632 mGy*cm. CT Dose Reduction Employed: Automated exposure control(AEC) and iterative recon COMPARISON: CT brain done earlier today RESULT: The study is somewhat degraded by patient body habitus. In particular the origin of the great vessels and the proximal carotids and vertebrals are obscured by very large body habitus. BRAIN: Evaluation of the individual slices of the CTA demonstrates no evidence of an acute stroke. ASPECT Score = 10 Hemorrhage: No evidence of acute intracranial hemorrhage. ECASS hemorrhagic transformation score: Not Applicable Spot Sign Presence: Not Applicable Spot Sign Number: Not Applicable NECK: Soft tissues: The soft tissue planes are maintained throughout. No evidence of a soft tissue mass in the neck or superior mediastinum. No significant lymphadenopathy is seen. Spine: Alignment is normal. Moderate degenerative changes are present. Lung apices: The visualized lung apices are clear. CT ARTERIOGRAM: Extracranial Circulation: Aortic Arch: There is a normal branching pattern from the aortic arch.. There is no significant stenosis in the proximal brachiocephalic vessels. Carotid Stenosis: Right Common: No significant stenosis. Right Internal Carotid Plaque: No significant plaque formation. Right Internal Carotid Stenosis (% by NASCET Criteria): 0% There is a medialized/retropharyngeal course of the right internal carotid artery. Left Common: No significant stenosis. Left Internal Carotid Plaque: No significant plaque formation. Left Internal Carotid Stenosis (% by NASCET Criteria): 0% There is a medial/retropharyngeal course of the left internal carotid artery. Cervical Vertebral Arteries: Patency: Bilateral Dominance: Codominant Intracranial Circulation: Anterior Circulation: The distal internal carotid arteries, bilateral MCA and ISIS vessels are patent and unremarkable. No evidence of aneurysm or AV malformation. The major dural venous sinuses appear to be patent. No enhancing abnormalities are seen within the brain parenchyma. Vertebrobasilar Circulation: Distal vertebral arteries and the basilar artery are patent and unremarkable. Bilateral posterior cerebral arteries arise normally and are patent. IMPRESSION: CT ANGIOGRAPHY OF THE BRAIN: 1. Unremarkable [place]. No high-grade stenosis or proximal occlusion CT ANGIOGRAPHY OF THE NECK: 1. No flow-limiting stenosis is seen of the carotids or vertebrals. Incidental findings as above. Gill Box Fixer: SHIRA Transcribe Date/Time: May 09 2019 7:10P Dictated by : DMITRY LUCIA MD This examination was interpreted and the report reviewed and electronically signed by: DMITRY LUCIA MD on May 09 2019 7:23PM EST Normal [facility] Troponin Ion 05-09-2019 Troponin I.cardiac [Mass/Vol] ng/mL Normal 0.015-0.04 5 [facility] Comment on above: Performed By: #### G FR #### [place] [address] Hemogramon 05-09-2019 Erythrocyte distribution width (RBC) [Ratio] see below Normal 11.6-14.4 [facility] Comment on above: Result Comment: DISR EGARD RESULTS- SAMPLE INTEGRITY QUESTIONABLE CORRECTED: Previous result = 14.6, verified at 16:27 on 05/09/19. Performed By: #### G FR #### [place] [address] Hematocrit (Bld) [Volume fraction] see below Normal 40.1-51.0 [facility] Comment on above: Result Comment: DISR EGARD RESULTS- SAMPLE INTEGRITY QUESTIONABLE CORRECTED: Previous result = 35.1, verified at 16:27 on 05/09/19. Performed By: #### G FR #### [place] [address] Hemoglobin (Bld) [Mass/Vol] see below Normal 13.7-17.5 [facility] Comment on above: Result Comment: DISR EGARD RESULTS- SAMPLE INTEGRITY QUESTIONABLE CORRECTED: Previous result = 10.9, verified at 16:27 on 05/09/19. Performed By: #### G FR #### [place] [address] MCH (RBC) [Entitic mass] see below Normal 25.7-32.2 [facility] Comment on above: Result Comment: DISR EGARD RESULTS- SAMPLE INTEGRITY QUESTIONABLE CORRECTED: Previous result = 27.9, verified at 16:27 on 05/09/19. Performed By: #### G FR #### [place] [address] MCHC (RBC) [Mass/Vol] see below Normal 32.3-36.5 [facility] Comment on above: Result Comment: DISR EGARD RESULTS- SAMPLE INTEGRITY QUESTIONABLE CORRECTED: Previous result = 31.1, verified at 16:27 on 05/09/19. Performed By: #### G FR #### [facility] [address] [place] [address] MCV (RBC) [Entitic vol] see below Normal 83.2-95.6 [facility] Comment on above: Result Comment: DISR EGARD RESULTS- SAMPLE INTEGRITY QUESTIONABLE CORRECTED: Previous result = 89.8, verified at 16:27 on 05/09/19. Performed By: #### G FR #### [facility] [address] [place] [id number] Platelet mean volume (Bld) [Entitic vol] see below Normal 8.7-12.0 [facility] Comment on above: Result Comment: DISR EGARD RESULTS- SAMPLE INTEGRITY QUESTIONABLE CORRECTED: Previous result = 10.6, verified at 16:27 on 05/09/19. Performed By: #### G FR #### [place] [address] Platelets (Bld) [#/Vol] see below Normal 141-365 [facility] Comment on above: Result Comment: DISR EGARD RESULTS- SAMPLE INTEGRITY QUESTIONABLE CORRECTED: Previous result = 218, verified at 16:27 on 05/09/19. Performed By: #### G FR #### [place] [id number] RBC (Bld) [#/Vol] see below Normal 4.63-6.08 [facility] Comment on above: Result Comment: DISR EGARD RESULTS- SAMPLE INTEGRITY QUESTIONABLE CORRECTED: Previous result = 3.91, verified at 16:27 on 05/09/19. Performed By: #### G FR #### [address] [address] RDW SD see below Normal 36.1-45.8 [facility] Comment on above: Result Comment: DISR EGARD RESULTS- SAMPLE INTEGRITY QUESTIONABLE CORRECTED: Previous result = 47.7, verified at 16:27 on 05/09/19. Performed By: #### G FR #### [place] [id number] WBC (Bld) [#/Vol] see below Normal 4.23-9.07 [facility] Comment on above: Result Comment: DISR EGARD RESULTS- SAMPLE INTEGRITY QUESTIONABLE CORRECTED: Previous result = 8.73, verified at 16:27 on 05/09/19. Performed By: #### G FR #### [place] [address] Hemogram/Diffon 05-09-2019 Abs Immature Grans 0.05 thou/cmm Normal 0.00-0.05 [facility] Comment on above: Performed By: #### E RTRP #### [place] [address] Abs Neut (ANC) 5.92 thou/cmm High 1.78-5.38 [facility] Comment on above: Performed By: #### E RTRP #### [place] [place] [address] Abs. Baso 0.03 thou/cmm Normal 0.01-0.08 [facility] Comment on above: Performed By: #### E RTRP #### [place] [address] Abs. Lamb 0.42 thou/cmm Normal 0.30-0.82 [facility] Comment on above: Performed By: #### E RTRP #### [place] [address] Basophils/100 WBC (Bld) 0.4 % Normal [facility] Comment on above: Performed By: #### E RTRP #### [place] [address] Eosinophils (Bld) [#/Vol] 0.21 thou/cmm Normal 0.04-0.54 [facility] Comment on above: Performed By: #### E RTRP #### [place] [address] Eosinophils/100 WBC (Bld) 2.6 % Normal [facility] Comment on above: Performed By: #### E RTRP #### [place] [address] Erythrocyte distribution width (RBC) [Ratio] 14.6 % High 11.6-14.4 [facility] Comment on above: Performed By: #### E RTRP #### [facility] [address] [place] [address] Hematocrit (Bld) [Volume fraction] 33.6 % Low 40.1-51.0 [facility] Comment on above: Performed By: #### E RTRP #### [facility] [address] [place] [address] Hemoglobin (Bld) [Mass/Vol] 10.0 g/dL Low 13.7-17.5 [facility] Comment on above: Performed By: #### E RTRP #### [facility] [address] [place] [address] Immature Grans 0.60 % Normal [facility] Comment on above: Performed By: #### E RTRP #### [place] [address] Lymphocytes (Bld) [#/Vol] 1.47 thou/cmm Normal 0.84-2.85 [facility] Comment on above: Performed By: #### E RTRP #### [place] [address] Lymphocytes/100 WBC (Bld) 18.1 % Normal [facility] Comment on above: Performed By: #### E RTRP #### [facility] [address] [place] [address] MCH (RBC) [Entitic mass] 26.5 pg Normal 25.7-32.2 [facility] Comment on above: Performed By: #### E RTRP #### [facility] [address] [place] [address] MCHC (RBC) [Mass/Vol] 29.8 % Low 32.3-36.5 [facility] Comment on above: Performed By: #### E RTRP #### [place] [address] MCV (RBC) [Entitic vol] 89.1 fL Normal 83.2-95.6 [facility] Comment on above: Performed By: #### E RTRP #### [facility] [address] [place], [place] [address] Monocytes/100 WBC (Bld) 5.2 % Normal [facility] Comment on above: Performed By: #### E RTRP #### [facility] [address] [place], [place] [address] Platelet mean volume (Bld) [Entitic vol] 9.4 fL Normal 8.7-12.0 [facility] Comment on above: Performed By: #### E RTRP #### [facility] [address] [place], [place] [address] Platelets (Bld) [#/Vol] 235 thou/cmm Normal 141-365 [facility] Comment on above: Performed By: #### E RTRP #### [facility] [address] [place], [place] [address] RBC (Bld) [#/Vol] 3.77 mil/cmm Low 4.63-6.08 [facility] Comment on above: Performed By: #### E RTRP #### [facility] [address] [place], [place] [address] RDW SD 47.0 fl High 36.1-45.8 [facility] Comment on above: Performed By: #### E RTRP #### [facility] [address] [place], [place] [address] Seg Neutrophil 73.1 % Normal [facility] Comment on above: Performed By: #### E RTRP #### [facility] [address] [place], [place] [address] WBC (Bld) [#/Vol] 8.10 thou/cmm Normal 4.23-9.07 [facility] Comment on above: Performed By: #### E RTRP #### [facility] [address] [place], [place] [address] MDRD GFRon 05-09-2019 GFR/1.73 sq M predicted among non-blacks MDRD (S/P/Bld) [Vol rate/Area] mL/min/{1.73_m2} Normal >60mL/min/ 1.73m2 [facility] Comment on above: Result Comment: If t he patient is , multiply the result by 1.210. Performed By: #### G FR #### [facility] [address] [place], [place] [address] Protimeon 05-09-2019 INR Coag (PPP) [Relative time] 0.95 {INR} Normal 0.90-1.30 [facility] Comment on above: Result Comment: Michelle min K Antagonist (VKA) Therapeutic Range: INR 2 to 3 (Target INR of 2.5) Note: For patients treated with VKA drugs, such as warfarin, the [place] [employer] 2012 Guideline recommends a therapeutic INR range of 2 to 3 (target INR of 2.5). This recommendation includes high-risk patients with antiphospholipid syndrome with previous arterial or venous thromboembolism, current-generation mechanical or bioprosthetic aortic heart valve replacement. Note: Patients with mechanical aortic valve replacement and additional risk factors for thromboembolic events (atrial fibrillation, previous thromboembolism, LV dysfunction, hypercoagulable conditions) or an older generation mechanical AVR (i.e., ball in-Cage) or any mechanical MVR should have a INR therapeutic range of 2.5 to 3.5 target INR of 3). Aida GH, et al. Chest 2012; 141:7S-47S Hayder RA, et al. [facility] 2017; 70: 252-289 Performed By: #### E RTRP #### [facility] [address] [place], [place] [address] PT Coag (PPP) [Time] 10.3 s Normal 9.7-13.0 [facility] Comment on above: Performed By: #### E RTRP #### [facility] [address] [place], [place] [address] INR Coag (PPP) [Relative time] see below Normal 0.90-1.30 [facility] Comment on above: Result Comment: DISR EGARD RESULTS- SAMPLE INTEGRITY QUESTIONABLE CORRECTED: Previous result = 1.03, verified at 17:05 on 05/09/19. Vitamin K Antagonist (VKA) Therapeutic Range: INR 2 to 3 (Target INR of 2.5) Note: For patients treated with VKA drugs, such as warfarin, the [place] [employer] 2012 Guideline recommends a therapeutic INR range of 2 to 3 (target INR of 2.5). This recommendation includes high-risk patients with antiphospholipid syndrome with previous arterial or venous thromboembolism, current-generation mechanical or bioprosthetic aortic heart valve replacement. Note: Patients with mechanical aortic valve replacement and additional risk factors for thromboembolic events (atrial fibrillation, previous thromboembolism, LV dysfunction, hypercoagulable conditions) or an older generation mechanical AVR (i.e., ball in-Cage) or any mechanical MVR should have a INR therapeutic range of 2.5 to 3.5 target INR of 3). Aida GH, et al. Chest 2012; 141:7S-47S Hayder RA et al. [facility] 2017; 70: 252-289 Performed By: #### G FR #### [place] [address] PT Coag (PPP) [Time] see below Normal 9.7-13.0 [facility] Comment on above: Result Comment: DISR MAGDI RESULTS- SAMPLE INTEGRITY QUESTIONABLE CORRECTED: Previous result = 11.1, verified at 17:05 on 05/09/19. Performed By: #### G FR #### [place] [address] Basic Metabolic Panelon 12-0 Anion gap [Moles/Vol] 8 Normal [facility] Comment on above: Performed By: #### H EMOG, DDI2, BMP3, LIPA4, TROPN, BNP3 #### [address] Calcium [Mass/Vol] 8.5 mg/dL Normal 8.4-10.4 [facility] Comment on above: Performed By: #### H EMOG, DDI2, BMP3, LIPA4, TROPN, BNP3 #### [facility] [address] [place], [place] CO2 [Moles/Vol] 24 mmol/L Normal 22-30 [facility] Comment on above: Performed By: #### H EMOG, DDI2, BMP3, LIPA4, TROPN, BNP3 #### [facility] [address] [place] [address] Creatinine [Mass/Vol] 0.82 mg/dL Normal 0.52-1.25 [facility] Comment on above: Performed By: #### H EMOG, DDI2, BMP3, LIPA4, TROPN, BNP3 #### [facility] [address] [place] [address] GFR/1.73 sq M predicted among blacks MDRD (S/P/Bld) [Vol rate/Area] mL/min/{1.73_m2} Normal >60 [facility] Comment on above: Performed By: #### H EMOG, DDI2, BMP3, LIPA4, TROPN, BNP3 #### [place] [address] [place], [place] GFR/1.73 sq M predicted among non-blacks MDRD (S/P/Bld) [Vol rate/Area] mL/min/{1.73_m2} Normal >60 [facility] Comment on above: Result Comment: Sour ce- MDRD equation with creatinine calibration to IDMS(NKDEP) eGFR not recommended for drug dose adjustment Performed By: #### H EMOG, DDI2, BMP3, LIPA4, TROPN, BNP3 #### [address] Glucose [Mass/Vol] 101 mg/dL High 70-100 [facility] Comment on above: Performed By: #### H EMOG, DDI2, BMP3, LIPA4, TROPN, BNP3 #### [place] [address] [place], [place] Urea nitrogen [Mass/Vol] 16 mg/dL Normal 7-20 [facility] Comment on above: Performed By: #### H EMOG, DDI2, BMP3, LIPA4, TROPN, BNP3 #### [place] [address] [place], [place] Chloride [Moles/Vol] 106 mmol/L Normal 98-107 [facility] Comment on above: Performed By: #### H EMOG, DDI2, BMP3, LIPA4, TROPN, BNP3 #### [address] Potassium [Moles/Vol] 4.0 mmol/L Normal 3.5-5.1 [facility] Comment on above: Performed By: #### H EMOG, DDI2, BMP3, LIPA4, TROPN, BNP3 #### [address] [address] Sodium [Moles/Vol] 138 mmol/L Normal 135-145 [facility] Comment on above: Performed By: #### H EMOG, DDI2, BMP3, LIPA4, TROPN, BNP3 #### [facility] [address] [place] [address] Anion gap [Moles/Vol] 8 mmol/L [place], [place] Calcium [Mass/Vol] 8.5 mg/dL 8.4 - 10. 4 mg/dL [place] Chloride [Moles/Vol] 106 mmol/L 98 - 10 7 mmol/L [place] CO2 [Moles/Vol] 24 mmol/L 22 - 30 mmol/L [place] Creatinine [Mass/Vol] 0.82 mg/dL 0.52 - 1.25 mg/dL [place] EGFR IF NonAfrican [place] >60.0 >60 mL/min [place] Comment on above: Source- MDRD equatio n with creatinine calibration to IDMS(NKDEP) eGFR not recommended for drug dose adjustment GFR/1.73 sq M predicted among blacks MDRD (S/P/Bld) [Vol rate/Area] mL/min/{1.73_m2} >60 mL/min [place] Glucose [Mass/Vol] 101 mg/dL High 70 - 100 mg/dL [place] Interpretation and review of laboratory results Abnormal [place] Potassium [Moles/Vol] 4.0 mmol/L 3.5 - 5.1 mmol/L [facility], [place] Sodium [Moles/Vol] 138 mmol/L 135 - 145 mmol/L [place] Urea nitrogen [Mass/Vol] 16 mg/dL 7 - 20 mg/dL [place] Test Performed by [facility], [address] [place] [address] [place] CBC Auto Differentialon 12-0 Absolute Baso # 0.1 10*3/uL 0 - 0.2 10*3/uL [place] Absolute Neut # 7.8 10*3/uL High 1.8 - 7 10*3/uL [place] Basophils/100 WBC (Bld) 0.5 % 0 - 2 % [place] Eosinophils (Bld) [#/Vol] 0.2 10*3/uL 0 - 0.5 10*3/uL [place] Eosinophils/100 WBC (Bld) 2.0 % 1 - 6 % [place] Erythrocyte distribution width (RBC) [Ratio] 15.1 % High 11.5 - 14.5 % [place] Granulocytes/100 WBC (Bld) 77.9 % 40 - 80 % [place] Hematocrit (Bld) [Volume fraction] 32.3 % Low 40 - 52 % [place] Hemoglobin (Bld) [Mass/Vol] 10.5 g/dL Low 13 - 18 g/dL [place] Interpretation and review of laboratory results Abnormal [place] Lymphocytes (Bld) [#/Vol] 1.4 10*3/uL 1 - 4.3 10*3/uL [place] Lymphocytes/100 WBC (Bld) 13.9 % Low 20 - 40 % [place] MCH (RBC) [Entitic mass] 27.2 pg 26 - 34 pg [place] MCHC (RBC) [Mass/Vol] 32.4 % 32 - 36 % [place] MCV (RBC) [Entitic vol] 84.0 fL 80 - 98 fL [place] Monocytes (Bld) [#/Vol] 0.6 10*3/uL 0 - 0.8 10*3/uL [place] Monocytes/100 WBC (Bld) 5.7 % 2 - 10 % [place] Platelet mean volume (Bld) [Entitic vol] 7.3 fL Low 7.4 - 10.4 fL [place] Platelets (Bld) [#/Vol] 234 10*3/uL 140 - 440 10*3/uL [place] RBC (Bld) [#/Vol] 3.85 10*6/uL Low 4.4 - 5.9 10*6/uL [place] WBC (Bld) [#/Vol] 10.0 10*3/uL 3.6 - 10.7 10*3/uL [place] Test Performed by [facility], [address] [place] [id number] [place] [address] Hemogram w/ Autodiffon 05-08 Abs Baso Cnt 0.1 10*3/uL Normal 0.0-0.2 [facility] Comment on above: Performed By: #### H EMOG, DDI2, BMP3, LIPA4, TROPN, BNP3 #### [address] Abs Neutrophile Cnt 7.8 10*3/uL High 1.8-7.0 [facility] Comment on above: Performed By: #### H EMOG, DDI2, BMP3, LIPA4, TROPN, BNP3 #### [address] [address] Basophils/100 WBC (Bld) 0.5 % Normal 0.0-2.0 [facility] Comment on above: Performed By: #### H EMOG, DDI2, BMP3, LIPA4, TROPN, BNP3 #### [address] [address] Eosinophils (Bld) [#/Vol] 0.2 10*3/uL Normal 0.0-0.5 [facility] Comment on above: Performed By: #### H EMOG, DDI2, BMP3, LIPA4, TROPN, BNP3 #### [address] [address] Eosinophils/100 WBC (Bld) 2.0 % Normal 1.0-6.0 [facility] Comment on above: Performed By: #### H EMOG, DDI2, BMP3, LIPA4, TROPN, BNP3 #### [address] [place], [place] Erythrocyte distribution width (RBC) [Ratio] 15.1 % High 11.5-14.5 [facility] Comment on above: Performed By: #### H EMOG, DDI2, BMP3, LIPA4, TROPN, BNP3 #### [address] Granulocytes/100 WBC (Bld) 77.9 % Normal 40.0-80.0 [facility] Comment on above: Performed By: #### H EMOG, DDI2, BMP3, LIPA4, TROPN, BNP3 #### [address] Hematocrit (Bld) [Volume fraction] 32.3 % Low 40.0-52.0 [facility] Comment on above: Performed By: #### H EMOG, DDI2, BMP3, LIPA4, TROPN, BNP3 #### [address] Hemoglobin (Bld) [Mass/Vol] 10.5 g/dL Low 13.0-18.0 [facility] Comment on above: Performed By: #### H EMOG, DDI2, BMP3, LIPA4, TROPN, BNP3 #### [address] Lymphocytes (Bld) [#/Vol] 1.4 10*3/uL Normal 1.0-4.3 [facility] Comment on above: Performed By: #### H EMOG, DDI2, BMP3, LIPA4, TROPN, BNP3 #### [address] Lymphocytes/100 WBC (Bld) 13.9 % Low 20.0-40.0 [facility] Comment on above: Performed By: #### H EMOG, DDI2, BMP3, LIPA4, TROPN, BNP3 #### [address] MCH (RBC) [Entitic mass] 27.2 pg Normal 26.0-34.0 [facility] Comment on above: Performed By: #### H EMOG, DDI2, BMP3, LIPA4, TROPN, BNP3 #### [address] MCHC (RBC) [Mass/Vol] 32.4 % Normal 32.0-36.0 [facility] Comment on above: Performed By: #### H EMOG, DDI2, BMP3, LIPA4, TROPN, BNP3 #### [address] MCV (RBC) [Entitic vol] 84.0 fL Normal 80.0-98.0 [facility] Comment on above: Performed By: #### H EMOG, DDI2, BMP3, LIPA4, TROPN, BNP3 #### [address] Monocytes (Bld) [#/Vol] 0.6 10*3/uL Normal 0.0-0.8 [facility] Comment on above: Performed By: #### H EMOG, DDI2, BMP3, LIPA4, TROPN, BNP3 #### [address] Monocytes/100 WBC (Bld) 5.7 % Normal 2.0-10.0 [facility] Comment on above: Performed By: #### H EMOG, DDI2, BMP3, LIPA4, TROPN, BNP3 #### [address] Platelet mean volume (Bld) [Entitic vol] 7.3 fL Low 7.4-10.4 [facility] Comment on above: Performed By: #### H EMOG, DDI2, BMP3, LIPA4, TROPN, BNP3 #### [address] Platelets (Bld) [#/Vol] 234 10*3/uL Normal 140-440 [facility] Comment on above: Performed By: #### H EMOG, DDI2, BMP3, LIPA4, TROPN, BNP3 #### [facility] [address] [place], [place] RBC (Bld) [#/Vol] 3.85 10*6/uL Low 4.40-5.90 [facility] Comment on above: Performed By: #### H EMOG, DDI2, BMP3, LIPA4, TROPN, BNP3 #### [place] [address] [address] [place], [place] WBC (Bld) [#/Vol] 10.0 10*3/uL Normal 3.6-10.7 [facility] Comment on above: Performed By: #### H EMOG, DDI2, BMP3, LIPA4, TROPN, BNP3 #### [place] [address] [address] [place], [place] Basic Metabolic Panelon Anion gap [Moles/Vol] 11 Normal [facility] Comment on above: Performed By: #### H EMOG, DDI2, BMP3, LIPA4, TROPN, BNP3 #### [place] [address] [address] [place], [place] GFR/1.73 sq M predicted among non-blacks MDRD (S/P/Bld) [Vol rate/Area] mL/min/{1.73_m2} Normal >60 [facility] Comment on above: Result Comment: Sour ce- MDRD equation with creatinine calibration to IDMS(NKDEP) eGFR not recommended for drug dose adjustment Performed By: #### H EMOG, DDI2, BMP3, LIPA4, TROPN, BNP3 #### [facility] [address] [place], [place] CBCon 05-07-2019 Erythrocyte distribution width (RBC) [Ratio] 15.8 % High 11.5 - 14.5 % [place] Hematocrit (Bld) [Volume fraction] 33.1 % Low 40 - 52 % [place] Hemoglobin (Bld) [Mass/Vol] 10.6 g/dL Low 13 - 18 g/dL [place] Interpretation and review of laboratory results Abnormal [place] MCH (RBC) [Entitic mass] 26.9 pg 26 - 34 pg [place] MCHC (RBC) [Mass/Vol] 32.1 % 32 - 36 % [place] MCV (RBC) [Entitic vol] 83.9 fL 80 - 98 fL [place] Platelet mean volume (Bld) [Entitic vol] 7.7 fL 7.4 - 10.4 fL [place] Platelets (Bld) [#/Vol] 240 10*3/uL 140 - 440 10*3/uL [place] RBC (Bld) [#/Vol] 3.94 10*6/uL Low 4.4 - 5.9 10*6/uL [place] WBC (Bld) [#/Vol] 12.2 10*3/uL High 3.6 - 10.7 10*3/uL [place] Test Performed by [facility], [address] [place] [id number] [place] [address] EKG 12 Lead - Chest Painon 1 07-08-2018 [facility] Incoming Cardiology Results From [facility] - 05/07/2019 9:33 AM EST [facility] Test Date: 2019-05-06 Pat Name: Natalie Buzz Department: [facility] Room: [facility] Gender: M Director Epidemiology: JOSE R/YUMI : 1960 Requested By: ASHA SINGH Order Number: [id number] Reading MD: Miguel Angel Omer Measurements Intervals [place] Rate: 71 P: 27 ND: 155 QRS: 23 QRSD: 85 T: 88 QT: 409 QTc: 445 Interpretive Statements Sinus rhythm Low voltage, precordial leads Abnormal R-wave progression, early transition Electronically Signed On 05-07-2019 9:32:55 EST by Miguel Angel Omer [facility] Test Date: 2019-05-06 Pat Name: Natalie Buzz Department: [facility] Room: 1522 Gender: M Director Epidemiology: JOSE R/YUMI : 1960 Requested By: ASHA SINGH Order Number: [id number] Reading MD: Miguel Angel Omer Measurements Intervals [place] Rate: 71 P: 27 ND: 155 QRS: 23 QRSD: 85 T: 88 QT: 409 QTc: 445 Interpretive Statements Sinus rhythm Low voltage, precordial leads Abnormal R-wave progression, early transition Electronically Signed On 05-07-2019 9:32:55 EST by Miguel Angel Omer [facility] [place], [place] Hemogramon 05-07-2019 Erythrocyte distribution width (RBC) [Ratio] 15.8 % High 11.5-14.5 [facility] Comment on above: Performed By: #### H EMOG, DDI2, BMP3, LIPA4, TROPN, BNP3 #### [address] Hematocrit (Bld) [Volume fraction] 33.1 % Low 40.0-52.0 [facility] Comment on above: Performed By: #### H EMOG, DDI2, BMP3, LIPA4, TROPN, BNP3 #### [address] Hemoglobin (Bld) [Mass/Vol] 10.6 g/dL Low 13.0-18.0 [facility] Comment on above: Performed By: #### H EMOG, DDI2, BMP3, LIPA4, TROPN, BNP3 #### [address] MCH (RBC) [Entitic mass] 26.9 pg Normal 26.0-34.0 [facility] Comment on above: Performed By: #### H EMOG, DDI2, BMP3, LIPA4, TROPN, BNP3 #### [address] MCHC (RBC) [Mass/Vol] 32.1 % Normal 32.0-36.0 [facility] Comment on above: Performed By: #### H EMOG, DDI2, BMP3, LIPA4, TROPN, BNP3 #### [address] MCV (RBC) [Entitic vol] 83.9 fL Normal 80.0-98.0 [facility] Comment on above: Performed By: #### H EMOG, DDI2, BMP3, LIPA4, TROPN, BNP3 #### [address] Platelet mean volume (Bld) [Entitic vol] 7.7 fL Normal 7.4-10.4 [facility] Comment on above: Performed By: #### H EMOG, DDI2, BMP3, LIPA4, TROPN, BNP3 #### [place] [address] [place], [place] Platelets (Bld) [#/Vol] 240 10*3/uL Normal 140-440 [facility] Comment on above: Performed By: #### H EMOG, DDI2, BMP3, LIPA4, TROPN, BNP3 #### [address] RBC (Bld) [#/Vol] 3.94 10*6/uL Low 4.40-5.90 [facility] Comment on above: Performed By: #### H EMOG, DDI2, BMP3, LIPA4, TROPN, BNP3 #### [address] WBC (Bld) [#/Vol] 12.2 10*3/uL High 3.6-10.7 [facility] Comment on above: Performed By: #### H EMOG, DDI2, BMP3, LIPA4, TROPN, BNP3 #### [place] [address] [place], [place] Hepatic Functionon 9 Bilirubin [Mass/Vol] 0.7 mg/dL Normal 0.2-1.3 [facility] Comment on above: Performed By: #### H EMOG, DDI2, BMP3, LIPA4, TROPN, BNP3 #### [address] NT pro BNPon 05-07-2019 Natriuretic peptide B (Bld) [Mass/Vol] 51 pg/mL Normal 0-125 [facility] Comment on above: Performed By: #### H EMOG, DDI2, BMP3, LIPA4, TROPN, BNP3 #### [address] Troponinon 05-07-2019 Troponin I.cardiac [Mass/Vol] ng/mL 0 - 0.034 ng/mL [place] Comment on above: . Test Performed by [facility], [address] [place] [address] [place] Troponin Ion 05-07-2019 Troponin I.cardiac [Mass/Vol] ng/mL Normal 0.000-0.03 4 [facility] Comment on above: Result Comment: . Performed By: #### H EMOG, DDI2, BMP3, LIPA4, TROPN, BNP3 #### [address] Troponin I.cardiac [Mass/Vol] ng/mL Normal 0.000-0.03 4 [facility] Comment on above: Result Comment: . Performed By: #### H EMOG, DDI2, BMP3, LIPA4, TROPN, BNP3 #### [address] Basic Metabolic Panelon Potassium [Moles/Vol] 4.3 mmol/L Normal 3.5-5.1 [facility] Comment on above: Performed By: #### H EMOG, DDI2, BMP3, LIPA4, TROPN, BNP3 #### [address] Chloride [Moles/Vol] 104 mmol/L Normal 98-107 [facility] Comment on above: Performed By: #### H EMOG, DDI2, BMP3, LIPA4, TROPN, BNP3 #### [address] Sodium [Moles/Vol] 141 mmol/L Normal 135-145 [facility] Comment on above: Performed By: #### H EMOG, DDI2, BMP3, LIPA4, TROPN, BNP3 #### [address] Calcium [Mass/Vol] 9.4 mg/dL Normal 8.4-10.4 [place] Comment on above: Performed By: #### H EMOG, DDI2, BMP3, LIPA4, TROPN, BNP3 #### [place] [address] [place], [place] CO2 [Moles/Vol] 26 mmol/L Normal 22-30 [place] Comment on above: Performed By: #### H EMOG, DDI2, BMP3, LIPA4, TROPN, BNP3 #### [address] Creatinine [Mass/Vol] 0.75 mg/dL Normal 0.52-1.25 [place] Comment on above: Performed By: #### H EMOG, DDI2, BMP3, LIPA4, TROPN, BNP3 #### [address] GFR/1.73 sq M predicted among blacks MDRD (S/P/Bld) [Vol rate/Area] mL/min/{1.73_m2} Normal >60 [place] Comment on above: Performed By: #### H EMOG, DDI2, BMP3, LIPA4, TROPN, BNP3 #### [address] Glucose [Mass/Vol] 108 mg/dL High 70-100 [place] Comment on above: Performed By: #### H EMOG, DDI2, BMP3, LIPA4, TROPN, BNP3 #### [address] Urea nitrogen [Mass/Vol] 13 mg/dL Normal 7-20 [place] Comment on above: Performed By: #### H EMOG, DDI2, BMP3, LIPA4, TROPN, BNP3 #### [place] [address] [place], [place] Anion gap [Moles/Vol] 11 mmol/L [place] Chloride [Moles/Vol] 104 mmol/L 98 - 10 7 mmol/L [place] EGFR IF NonAfrican [place] >60.0 >60 mL/min [place] Comment on above: Source- MDRD equatio n with creatinine calibration to IDUT(NKDEP) eGFR not recommended for drug dose adjustment Potassium [Moles/Vol] 4.3 mmol/L 3.5 - 5.1 mmol/L [place] Sodium [Moles/Vol] 141 mmol/L 135 - 145 mmol/L [place] Brain Natriuretic Peptideon 05-06-2019 Natriuretic peptide B (Bld) [Mass/Vol] 51 pg/mL 0 - 125 pg/mL [place] CR Chest Portableon 05-06-20 19 CR Chest Portable Patient Name: NATALIE GERBER Diagnostic Radiology Exam Date/Time 05/06/2019 20:57:29 EST Exam CR Chest Portable Ordering Physician MD SAMANTHA, [facility] Accession Number [id number] CPT4 Codes 65917 () Reason For Exam CP Report CLINICAL INFORMATION: Chest pain. CHEST X-RAY, PORTABLE, 2025: An AP portable view is compared to the prior examination of 03/08/2019. The examination is underpenetrated secondary to body habitus. There is no abnormality of the mediastinum or cardiac silhouette. No pleural effusion, vascular congestion, focal consolidation or pneumothorax is seen. IMPRESSION: Underpenetrated examination. No evidence of acute cardiopulmonary process or significant interval change. Report Dictated on Final Dictated: 05/06/2019 9:12 pm Dictating Physician: MD SYLVESTER HARLAN Signed Date and Time: 05/06/2019 9:13 pm Signed by: MD SYLVESTER HARLAN Transcribed Date and Time: 05/06/2019 9:12 Normal [facility] Hemogram (CBC) w/Auto Diffon 05-06-2019 Absolute Baso # 0.1 10*3/uL 0 - 0.2 10*3/uL [place] Absolute Neut # 8.4 10*3/uL High 1.8 - 7 10*3/uL [place] Basophils/100 WBC (Bld) 1.2 % 0 - 2 % [place] Eosinophils (Bld) [#/Vol] 0.2 10*3/uL 0 - 0.5 10*3/uL [place] Eosinophils/100 WBC (Bld) 1.4 % 1 - 6 % [place] Erythrocyte distribution width (RBC) [Ratio] 15.6 % High 11.5 - 14.5 % [place] Granulocytes/100 WBC (Bld) 75.0 % 40 - 80 % [place] Hematocrit (Bld) [Volume fraction] 35.9 % Low 40 - 52 % [place] Hemoglobin (Bld) [Mass/Vol] 11.5 g/dL Low 13 - 18 g/dL [place] Interpretation and review of laboratory results Abnormal [place] Lymphocytes (Bld) [#/Vol] 2.0 10*3/uL 1 - 4.3 10*3/uL [place] Lymphocytes/100 WBC (Bld) 17.6 % Low 20 - 40 % [place] MCH (RBC) [Entitic mass] 27.2 pg 26 - 34 pg [place] MCHC (RBC) [Mass/Vol] 32.1 % 32 - 36 % [place] MCV (RBC) [Entitic vol] 84.8 fL 80 - 98 fL [place] Monocytes (Bld) [#/Vol] 0.5 10*3/uL 0 - 0.8 10*3/uL [place] Monocytes/100 WBC (Bld) 4.8 % 2 - 10 % [place] Platelet mean volume (Bld) [Entitic vol] 7.7 fL 7.4 - 10.4 fL [place] Platelets (Bld) [#/Vol] 286 10*3/uL 140 - 440 10*3/uL [place] RBC (Bld) [#/Vol] 4.24 10*6/uL Low 4.4 - 5.9 10*6/uL [place] WBC (Bld) [#/Vol] 11.1 10*3/uL High 3.6 - 10.7 10*3/uL [place] Test Performed by [facility], [address] [place] [id number] [place] [address] Hemogram w/ Autodiffon 05-06 Abs Baso Cnt 0.1 10*3/uL Normal 0.0-0.2 [facility] Comment on above: Performed By: #### H EMOG, DDI2, BMP3, LIPA4, TROPN, BNP3 #### [address] Abs Neutrophile Cnt 8.4 10*3/uL High 1.8-7.0 [facility] Comment on above: Performed By: #### H EMOG, DDI2, BMP3, LIPA4, TROPN, BNP3 #### [address] Basophils/100 WBC (Bld) 1.2 % Normal 0.0-2.0 [facility] Comment on above: Performed By: #### H EMOG, DDI2, BMP3, LIPA4, TROPN, BNP3 #### [address] Eosinophils (Bld) [#/Vol] 0.2 10*3/uL Normal 0.0-0.5 [facility] Comment on above: Performed By: #### H EMOG, DDI2, BMP3, LIPA4, TROPN, BNP3 #### [address] Eosinophils/100 WBC (Bld) 1.4 % Normal 1.0-6.0 [facility] Comment on above: Performed By: #### H EMOG, DDI2, BMP3, LIPA4, TROPN, BNP3 #### [address] Erythrocyte distribution width (RBC) [Ratio] 15.6 % High 11.5-14.5 [facility] Comment on above: Performed By: #### H EMOG, DDI2, BMP3, LIPA4, TROPN, BNP3 #### [address] [place], [place] Granulocytes/100 WBC (Bld) 75.0 % Normal 40.0-80.0 [facility] Comment on above: Performed By: #### H EMOG, DDI2, BMP3, LIPA4, TROPN, BNP3 #### [address] Hematocrit (Bld) [Volume fraction] 35.9 % Low 40.0-52.0 [facility] Comment on above: Performed By: #### H EMOG, DDI2, BMP3, LIPA4, TROPN, BNP3 #### [address] Hemoglobin (Bld) [Mass/Vol] 11.5 g/dL Low 13.0-18.0 [facility] Comment on above: Performed By: #### H EMOG, DDI2, BMP3, LIPA4, TROPN, BNP3 #### [address] Lymphocytes (Bld) [#/Vol] 2.0 10*3/uL Normal 1.0-4.3 [facility] Comment on above: Performed By: #### H EMOG, DDI2, BMP3, LIPA4, TROPN, BNP3 #### [address] Lymphocytes/100 WBC (Bld) 17.6 % Low 20.0-40.0 [facility] Comment on above: Performed By: #### H EMOG, DDI2, BMP3, LIPA4, TROPN, BNP3 #### [address] MCH (RBC) [Entitic mass] 27.2 pg Normal 26.0-34.0 [facility] Comment on above: Performed By: #### H EMOG, DDI2, BMP3, LIPA4, TROPN, BNP3 #### [address] MCHC (RBC) [Mass/Vol] 32.1 % Normal 32.0-36.0 [facility] Comment on above: Performed By: #### H EMOG, DDI2, BMP3, LIPA4, TROPN, BNP3 #### [address] MCV (RBC) [Entitic vol] 84.8 fL Normal 80.0-98.0 [facility] Comment on above: Performed By: #### H EMOG, DDI2, BMP3, LIPA4, TROPN, BNP3 #### [address] Monocytes (Bld) [#/Vol] 0.5 10*3/uL Normal 0.0-0.8 [facility] Comment on above: Performed By: #### H EMOG, DDI2, BMP3, LIPA4, TROPN, BNP3 #### [address] Monocytes/100 WBC (Bld) 4.8 % Normal 2.0-10.0 [facility] Comment on above: Performed By: #### H EMOG, DDI2, BMP3, LIPA4, TROPN, BNP3 #### [address] Platelet mean volume (Bld) [Entitic vol] 7.7 fL Normal 7.4-10.4 [facility] Comment on above: Performed By: #### H EMOG, DDI2, BMP3, LIPA4, TROPN, BNP3 #### [address] Platelets (Bld) [#/Vol] 286 10*3/uL Normal 140-440 [facility] Comment on above: Performed By: #### H EMOG, DDI2, BMP3, LIPA4, TROPN, BNP3 #### [address] RBC (Bld) [#/Vol] 4.24 10*6/uL Low 4.40-5.90 [facility] Comment on above: Performed By: #### H EMOG, DDI2, BMP3, LIPA4, TROPN, BNP3 #### [address] [place], [place] WBC (Bld) [#/Vol] 11.1 10*3/uL High 3.6-10.7 [facility] Comment on above: Performed By: #### H EMOG, DDI2, BMP3, LIPA4, TROPN, BNP3 #### [address] Hepatic Functionon 9 Albumin [Mass/Vol] 4.4 g/dL Normal 3.5-5.0 [facility] Comment on above: Performed By: #### H EMOG, DDI2, BMP3, LIPA4, TROPN, BNP3 #### [address] [place], [place] ALP [Catalytic activity/Vol] 136 U/L High 38-126 [place] Comment on above: Performed By: #### H EMOG, DDI2, BMP3, LIPA4, TROPN, BNP3 #### [address] [place], [place] ALT [Catalytic activity/Vol] 15 U/L Normal 13-69 [place] Comment on above: Performed By: #### H EMOG, DDI2, BMP3, LIPA4, TROPN, BNP3 #### [address] [place], [place] AST [Catalytic activity/Vol] 34 U/L Normal 15-46 [place] Comment on above: Performed By: #### H EMOG, DDI2, BMP3, LIPA4, TROPN, BNP3 #### [address] [address] [place], [place] Bilirubin.direct [Mass/Vol] 0.0 mg/dL Normal 0.0-0.3 [place] Comment on above: Performed By: #### H EMOG, DDI2, BMP3, LIPA4, TROPN, BNP3 #### [address] [place] [address] Protein [Mass/Vol] 8.5 g/dL High 6.3-8.2 [place] Comment on above: Performed By: #### H EMOG, DDI2, BMP3, LIPA4, TROPN, BNP3 #### [address] [address] [place] [address] Hepatic Function Panelon Albumin [Mass/Vol] 4.4 g/dL 3.5 - 5 g/dL [place] Bilirubin Ql (U) 0.7 mg/dL 0.2 - 1.3 mg/dL [place] Otheron 05-06-2019 Test Performed by [id number] [place] [address] Interpretation and review of laboratory results Abnormal [place] Test Performed by [id number] [place] [address] Troponin x1on 05-06-2019 Troponin I.cardiac [Mass/Vol] ng/mL 0 - 0.034 ng/mL [place] Comment on above: . XR CHEST PORTABLEon 05-06-20 19 [facility] Incoming Radiology Results From [facility] - 05/06/2019 9:15 PM EST Patient Name: NATALIE GERBER ---Diagnostic Radiology--- Exam Date/Time 05/06/2019 20:57:29 EST Exam CR Chest Portable Ordering Physician MD SAMANTHA, [facility] Accession Number [id number] CPT4 Codes 02527 () Reason For Exam CP Report CLINICAL INFORMATION: Chest pain. CHEST X-RAY, PORTABLE, 2025: An AP portable view is compared to the prior examination of 03/08/2019. The examination is underpenetrated secondary to body habitus. There is no abnormality of the mediastinum or cardiac silhouette. No pleural effusion, vascular congestion, focal consolidation or pneumothorax is seen. IMPRESSION: Underpenetrated examination. No evidence of acute cardiopulmonary process or significant interval change. Report Dictated on --- Final --- Dictated: 05/06/2019 9:12 pm Dictating Physician: MD SYLVESTER HARLAN Signed Date and Time: 05/06/2019 9:13 pm Signed by: MD SYLVESTER HARLAN Transcribed Date and Time: 05/06/2019 9:12 [place] Patient Name: NATALIE GERBER ---Diagnostic Radiology--- Exam Date/Time 05/06/2019 20:57:29 EST Exam CR Chest Portable Ordering Physician MD SAMANTHA, [facility] Accession Number [id number] CPT4 Codes 32680 () Reason For Exam CP Report CLINICAL INFORMATION: Chest pain. CHEST X-RAY, PORTABLE, 2025: An AP portable view is compared to the prior examination of 03/08/2019. The examination is underpenetrated secondary to body habitus. There is no abnormality of the mediastinum or cardiac silhouette. No pleural effusion, vascular congestion, focal consolidation or pneumothorax is seen. IMPRESSION: Underpenetrated examination. No evidence of acute cardiopulmonary process or significant interval change. Report Dictated on --- Final --- Dictated: 05/06/2019 9:12 pm Dictating Physician: MD SYLVESTER HARLAN Signed Date and Time: 05/06/2019 9:13 pm Signed by: MD SYLVESTER HARLAN Transcribed Date and Time: 05/06/2019 9:12 [place] XR Chest 2 view-PA & LATon 1 07-07-2018 XR Chest 2 view-PA & LAT CHEST: CLINICAL INDICATION: Chest pain TECHNIQUE: PA and Lateral COMPARISON: 09/23/2016 FINDINGS: The heart demonstrates normal size. Calcification of the thoracic aorta is noted. The lungs are clear. There is no evidence for pleural effusion. Degenerative change of the thoracic spine is noted. IMPRESSION: No acute abnormality. Report Dictated on Authenticated by: Matilda Nash On: 05/06/2019 01:44 Read by: MATILDA NASH MD Date: 05/06/2019 01:44 Normal [facility] HS TROPONIN Ton 05-05-2019 Troponin T.cardiac [Mass/Vol] Normal 0-4 [facility] Comment on above: Result Comment: 6 LESS THAN Sex Specific Reference Range: Male (0-22), Female (0-14) Change(Delta) >=5 is significant Troponin Baseline and Serial elevation for significant change(delta)should be interpreted in conjunction with clinical presentation, history, signs and symptoms, ECG and biomarker concentrations. Troponin elevation can be seen in several other non-infarct conditions. Chronic troponin elevations can be detected in clinically stable patients with heart failure, cardiomyopathy, renal failure, diabetes, etc. Elevated troponin can also occur in myocarditis, heart contusion, PE, drug induced cardiotoxicity, etc. Samples should NOT be taken from patients receiving high dose biotin (> 5mg) doses until 8 hours following last biotin administration. Performed By: #### H STROP #### [address] [address] Result Comment: 0 Performed at [address] [address] CBC with Diffon 05-04-2019 AB IMMATURE NEUT 0.07 K/UL Normal 0.0-0.1 [facility] Comment on above: Performed By: #### C BCD #### [address] [address] ABS BASO 0.06 K/UL Normal 0.00-0.22 [facility] Comment on above: Performed By: #### C BCD #### [address] [address] ABS EOS 0.17 K/UL Normal 0-0.45 [facility] Comment on above: Performed By: #### C BCD #### [facility] [address] [address] ABS NEUTROPHILS 7.42 K/UL Normal 1.8-7.7 [facility] Comment on above: Performed By: #### C BCD #### [facility] [address] [address] ABS.NEUT.CALCULATED Normal [facility] Comment on above: Result Comment: 7.42 Performed at [address] [address] Performed By: #### C BCD #### [facility] [address] [address] Basophils/100 WBC (Bld) 0.60 % Normal 0-1 [facility] Comment on above: Performed By: #### C BCD #### [facility] [address] [place] [address] DIFF TYPE AUTO DIFF Normal [facility] Comment on above: Performed By: #### C BCD #### [address] [place] [address] Eosinophils/100 WBC (Bld) 1.60 % Normal 0-3 [facility] Comment on above: Performed By: #### C BCD #### [address] [address] [place] [address] Erythrocyte distribution width (RBC) [Ratio] 14.4 % Normal 11.7-15.0 [facility] Comment on above: Performed By: #### C BCD #### [address] [address] [place] [address] Hematocrit (Bld) [Volume fraction] 38.6 % Low 41-50 [facility] Comment on above: Performed By: #### C BCD #### [address] [address] [place] [address] Hemoglobin (Bld) [Mass/Vol] 11.8 g/dL Low 13.5-16.5 [facility] Comment on above: Performed By: #### C BCD #### [address] [place] [address] Lymphocytes (Bld) [#/Vol] 2.29 10*3/uL Normal 1.2-3.2 [facility] Comment on above: Performed By: #### C BCD #### [address] [address] [place] [address] Lymphocytes/100 WBC (Bld) 21.90 % Normal 20-40 [facility] Comment on above: Performed By: #### C BCD #### [address] [address] [place] [address] MCH (RBC) [Entitic mass] 27.1 pg Normal 26-34 [facility] Comment on above: Performed By: #### C BCD #### [address] [address] [place] [address] MCHC (RBC) [Mass/Vol] 30.6 % Low 31-37 [facility] Comment on above: Performed By: #### C BCD #### [facility] [address] [place] [address] MCV (RBC) [Entitic vol] 88.5 fL Normal 80-100 [facility] Comment on above: Performed By: #### C BCD #### [facility] [address] [place] [place] [address] MEAN PLT VOL 9.8 CU Normal 7.0-12.6 [facility] Comment on above: Performed By: #### C BCD #### [facility] [address] [address] [place] [address] Monocytes (Bld) [#/Vol] 0.46 10*3/uL Normal 0-0.8 [facility] Comment on above: Performed By: #### C BCD #### [address] [address] [place] [address] Monocytes/100 WBC (Bld) 4.40 % Normal 0-8 [facility] Comment on above: Performed By: #### C BCD #### [facility] [address] [place] [address] Neutrophils/100 WBC (Bld) 70.80 % High 50-70 [facility] Comment on above: Performed By: #### C BCD #### [address] [place] [address] Neutrophils/100 WBC (Bld) 0.70 % Normal 0.0-1.0 [facility] Comment on above: Performed By: #### C BCD #### [facility] [address] [place] [address] NRBC'S 0 /100 WBC Normal 0 [facility] Comment on above: Performed By: #### C BCD #### [facility] [address] [address] [place] [address] Platelets (Bld) [#/Vol] 272 10*3/uL Normal 150-450 [facility] Comment on above: Performed By: #### C BCD #### [facility] [address] [place] [address] RBC (Bld) [#/Vol] 4.36 M/UL Low 4.5-5.5 [facility] Comment on above: Performed By: #### C BCD #### [address] [address] [place] [address] RDW-SD 46.0 FL Normal 37.0-54.0 [facility] Comment on above: Performed By: #### C BCD #### [address] [address] WBC (Bld) [#/Vol] 10.5 10*3/uL Normal 4.5-11.0 [facility] Comment on above: Performed By: #### C BCD #### [address] [address] CHEST 2 VIEWon 05-04-2019 CHEST 2 VIEW *FINAL Date of Service: 05/04/2019 21:06 Adm #: [id number] Reading Dr:YULY JACKSON Signoff Dr: YULY JACKSON PROCEDURE: CHEST 2 VIEW - WXR 0020 REASON FOR EXAM: cp RESULT: Clinical Data: Chest pain. Number of films: Two-view radiographs of the chest were obtained . Comparison: None. The heart and mediastinum are normal. The lungs are clear. No pleural effusions are seen. Degenerative changes involve the thoracic spine. Impression: No cardiopulmonary disease. [id number] This report has been produced using speech recognition. Original Interpreting Physician: YULY JACKSON M.D. Original Transcribed [facility]/Date[facility] May 04 2019 9:22P Original Electronically Signed by/Date: YULY JACKSON M.D. May 04 2019 9:22P Addendum Interpreting Physician: Addendum Transcribed by/Date: NO ADDENDUM Addendum Electronically Signed by/Date: Normal [facility] COMPREHENSIVE METABOLIC PANE [place] 05-04-2019 Albumin [Mass/Vol] 4.2 g/dL Normal 3.5-5.0 [facility] Comment on above: Performed By: #### C DISTRICT SUPERVISOR #### [address] [address] Albumin/Globulin [Mass ratio] 1.1 {ratio} Low 1.5-3.0 [facility] Comment on above: Performed By: #### C DISTRICT SUPERVISOR #### [facility] [place] [address] [place] [address] ALP [Catalytic activity/Vol] 166 U/L High 35-125 [facility] Comment on above: Performed By: #### C DISTRICT SUPERVISOR #### Main Laboratory [facility] [place] [address] [place] [address] ALT [Catalytic activity/Vol] 5 U/L Normal 5-40 [facility] Comment on above: Performed By: #### C DISTRICT SUPERVISOR #### [facility] [place] [address] [place] [address] Anion gap [Moles/Vol] 14 mmol/L Normal 0-19 [facility] Comment on above: Performed By: #### C DISTRICT SUPERVISOR #### [facility] [place] [address] [place] [address] AST [Catalytic activity/Vol] 13 U/L Normal 5-40 [facility] Comment on above: Performed By: #### C DISTRICT SUPERVISOR #### [facility] [address] [place] [address] [place] [address] Bilirubin [Mass/Vol] 0.4 mg/dL Normal 0.1-1.2 [facility] Comment on above: Performed By: #### C DISTRICT SUPERVISOR #### [facility] [place] [address] [place] [address] Calcium [Mass/Vol] 9.4 mg/dL Normal 8.5-10.4 [facility] Comment on above: Performed By: #### C DISTRICT SUPERVISOR #### Main Laboratory [facility] [place], [facility] [address] [place] [address] Chloride [Moles/Vol] 96 mmol/L Low 97-107 [facility] Comment on above: Performed By: #### C DISTRICT SUPERVISOR #### Main Laboratory [facility] [place], [facility] [address] [place] [address] CO2 [Moles/Vol] 24 mmol/L Normal 24-31 [facility] Comment on above: Performed By: #### C DISTRICT SUPERVISOR #### Main Laboratory [facility] [place], [facility] [address] [place] [address] Creatinine [Mass/Vol] 0.8 mg/dL Normal 0.4-1.6 [facility] Comment on above: Performed By: #### C DISTRICT SUPERVISOR #### [address] [address] GFR/1.73 sq M.predicted MDRD (S/P/Bld) [Vol rate/Area] Normal [facility] Comment on above: Result Comment: 106 GFR ml/min/1.73m2 Stage ----- 90 1 60-89 2 30-59 3 15-29 4 <15 5 For -Americans, multiply EGFR result by 1.210 Calculation not validated for patients under 18 years of age. Performed at [address] [place] [address] Performed By: #### C DISTRICT SUPERVISOR #### [address] [address] Globulin (S) [Mass/Vol] 3.8 g/dL High 1.9-3.7 [facility] Comment on above: Performed By: #### C DISTRICT SUPERVISOR #### [address] [address] Glucose [Mass/Vol] 102 mg/dL High 65-99 [facility] Comment on above: Performed By: #### C DISTRICT SUPERVISOR #### [address] [address] Potassium [Moles/Vol] 3.8 mmol/L Normal 3.4-5.1 [facility] Comment on above: Performed By: #### C DISTRICT SUPERVISOR #### [address] [address] Protein [Mass/Vol] 8.0 g/dL High 5.9-7.9 [facility] Comment on above: Performed By: #### C DISTRICT SUPERVISOR #### [address] [address] Sodium [Moles/Vol] 134 mmol/L Normal 133-145 [facility] Comment on above: Performed By: #### C DISTRICT SUPERVISOR #### [address] [address] Urea nitrogen [Mass/Vol] 10 mg/dL Normal 8-25 [facility] Comment on above: Performed By: #### C DISTRICT SUPERVISOR #### [facility] [address] [address] Urea nitrogen/Creatinine [Mass ratio] 12.5 RATIO Normal 8-21 [facility] Comment on above: Performed By: #### C DISTRICT SUPERVISOR #### [facility] [address] [address] HS TROPONIN Ton 05-04-2019 Troponin T.cardiac [Mass/Vol] Normal <15 [facility] Comment on above: Result Comment: No p revious result Performed at [address] [address] Performed By: #### H STROP #### [facility] [address] [address] Result Comment: 6 LESS THAN Sex Specific Reference Range: Male (0-22), Female (0-14) Change(Delta) >=5 is significant Troponin Baseline and Serial elevation for significant change(delta)should be interpreted in conjunction with clinical presentation, history, signs and symptoms, ECG and biomarker concentrations. Troponin elevation can be seen in several other non-infarct conditions. Chronic troponin elevations can be detected in clinically stable patients with heart failure, cardiomyopathy, renal failure, diabetes, etc. Elevated troponin can also occur in myocarditis, heart contusion, PE, drug induced cardiotoxicity, etc. Samples should NOT be taken from patients receiving high dose biotin (> 5mg) doses until 8 hours following last biotin administration. LIPASE PSon 05-04-2019 LIPASE PS Low 16-63 [facility] Comment on above: Result Comment: 12 Performed at [address] [address] Performed By: #### L IPS #### [facility] [address] [address] [place]-Referral Informati onon 03-30-2019 [place]-Referral Information Patient: NATALIE GERBER Age: 59 years Sex: Male : 1960 Associated Diagnoses: None Author: ALLEGRA LUCERO, CAIO [place] - Referral Information Patient Information Pt referred to: Residential Facility Attending Physician Info: Dr. Barlow Observation Date: 03/27/19 Medical Information Principal Diagnosis: Intractable Back Pain Surgeries: na Most Recent Height/Length Measured: 165.10cm 03/27/2019 23:38 Height/Length Dosin.10cm 03/27/2019 23:38 Weight Measured: 142.1kg 03/27/2019 23:38 Weight Dosin.1kg 03/27/2019 23:38 BMI Measured: 52.13kg/m2 03/27/2019 23:38 Contributing Values Height/Length Measured: 165.10cm 03/27/2019 23:38 Weight Measured: 142.1kg 03/27/2019 23:38 Additional Orders (Note: Medication orders need to be entered by provider as electronic Rx) Diet at Discharge: House Diet Therapies and Treatment Physical Therapy: Yes Physical Therapy Frequency: Twice daily Weight Bearing Status Lower: Full Weight Bearing Left, Full Weight Bearing Right Weight Bearing Status Upper: Full Weight Bearing Left, Full Weight Bearing Right Occupational Therapy: Yes Occupational Therapy Frequency: Twice daily Speech Therapy: No Oxygen Orders: RA; O2@2-5LNC prn. Cultures, Skin, Wound Care No qualifying data available. Certification Certify inpatient required at: Skilled level Potential for returning to the community: Convalescent stay less than 30 days Prognosis: Fair Rehab Potential / Function: Improve Other Hospital/ECF Admissions past 60d: Yes Recent Admission Location: [facility] I certify that inpatient care is required at the level recommended. To the best of my knowledge, all information provided about the individual is a true and accurate reflection of the individual's condition. Normal [facility] Nursing Clinical Noteon 10-2 Nursing Clinical Note 1910:Bedside repor t received from day shift RN. Pt to be transported to [facility] in [facility] P/U scheduled for 1929. Will continue to monitor Normal [facility] Nursing Clinical Note 1500: absorbed pat ient from [place] patient is a&ox3 in stable condition patient complains of chronic back pain assessment complete lungs sounds clear, bowel sounds present patient will be discharged to [facility] safety maintained 1620: report called to GABO Arredondo at [facility] patient will be picked up at 1930. Normal [facility] Nursing Clinical Note 0845: Pt sitting u p at side of bed having breakfast. Pt awake and alert x3. Pt states he is in 12/09 pain to lower back and left hand and informed this nurse that his pain medications are due at 0915. Pt has no other complaints. Assessment completed at this time. Medications tolerated well. Call light in reach. Will monitor. 0936: Pt medicated per prn orders for pain at this time for back pain and left hand pain 12/09. Normal [facility] Utilization Review Noteon Utilization Review Note Pending authoriztion. awaiting for placement. Normal [facility] [place]-Referral Informati onon 03-29-2019 [place]-Referral Information Patient: NATALIE GERBER Age: 59 years Sex: Male : 1960 Associated Diagnoses: None Author: MALCOLM BARLOW MD [place] - Referral Information Patient InformationPt referred to: Residential Facility Attending Physician Info: Dr. Barlow Observation Date: 03/27/19 Medical InformationPrincipal Diagnosis: Intractable Back Pain Surgeries: na Most Recent Height/Length Measured: 165.10cm 03/27/2019 23:38 Height/Length Dosin.10cm 03/27/2019 23:38 Weight Measured: 142.1kg 03/27/2019 23:38 Weight Dosin.1kg 03/27/2019 23:38 BMI Measured: 52.13kg/m2 03/27/2019 23:38 Contributing Values Height/Length Measured: 165.10cm 03/27/2019 23:38 Weight Measured: 142.1kg 03/27/2019 23:38 Additional Orders (Note: Medication orders need to be entered by provider as electronic Rx)Diet at Discharge: House Diet Therapies and TreatmentPhysical Therapy: Yes Physical Therapy Frequency: Twice daily Weight Bearing Status Lower: Full Weight Bearing Left, Full Weight Bearing Right Weight Bearing Status Upper: Full Weight Bearing Left, Full Weight Bearing Right Occupational Therapy: Yes Occupational Therapy Frequency: Twice daily Speech Therapy: No Oxygen Orders: RA; O2@2-5LNC prn. Cultures, Skin, Wound CareNo qualifying data available. CertificationCertify inpatient required at: Skilled level Potential for returning to the community: Convalescent stay less than 30 days Prognosis: Fair Rehab Potential / Function: Improve Other Hospital/ECF Admissions past 60d: Yes [facility] is required at the level recommended. To the best of my knowledge, all information provided about the individual is a true and accurate reflection of the individual's condition. Normal [facility] Nursing Clinical Noteon 03-03 Nursing Clinical Note 1920: Bedside repo rt received from day shift RN. Pt sitting on side of bed watching TV. Pt c/o pain and discomfort, pt reminded when pain meds due. All other needs met at this time. Will continue to monitor. Normal [facility] PLATELET ONLYon 03-29-2019 DxH Actions See Notes Abnormal [facility] Comment on above: Order Comment: PLT c ount on Day 2 after initiation of Heparin or Lovenox, Notify Physician if PLT Count less than 100,000 Result Comment: Chec k for Clot. Scan Slide.Confirm WBC/PLT est. SNV Performed By: #### 1 69632, 701311, 000510, 888614, 412107, [id number] #### [facility] [address] [place], [place] [id number] Day Care Teacher: Duran Marcus MD Platelets (Bld) [#/Vol] 247 X 1000 Normal 150-450 [facility] Comment on above: Order Comment: PLT c ount on Day 2 after initiation of Heparin or Lovenox, Notify Physician if PLT Count less than 100,000 Performed By: #### 1 05455, 590439, 880321, 501981, 552978, 2681080 #### [facility] [address] [place], [place] [address] Day Care Teacher: Duran Marcus MD Progress Note-Physicianon Progress Note-Physician Patient: NATALIE GERBER Age: 59 years Sex: Male : 1960 Associated Diagnoses: None Author: MALCOLM BARLOW MD SUBJECTIVE: 59-year-old male with chronic back pain comes for an acute exacerbation. Patient states the pain is at 6 out of 10 but he sitting up. Doing a bit better with steroids and the current pain regimen VITAL SIGN: TEMPERATURE 36.4 BP 123/79 PULSE 78 PULSE OX 99 RESPIRATORY RATE GENERAL: alert and oriented, breathing comfortably CV: S1 S2 RRR, no murmur CHEST: clear to auscultation, no wheezing or adventicious lung sounds LOWER EXTREMITY : warm, dorsalis pedis pulses palpable ABDOMEN: soft,nontender, positive bowel sounds NEURO: cranial nerves intact, normal speech, using all four extremities LABS: k 4.0, cre 0.8, wbc 10, hb 12 RADIOLOGY: CT lumbar spine: IMPRESSION No acute compression deformity or malalignment. Diffuse degenerative spondylosis. There is multilevel degenerative disc disease and vacuum disc phenomenon. There is also bilateral facet arthropathy. ASSESSMENT/PLAN: 59-year-old male with inability to ambulate and severe pain on his chronic back. Unclear what causes acute exacerbation. Discussed with patient and dynamiter. We will continue patient on current pain regimen We will attempt to look for a place where he can stay until he can get his back looked at by neurosurgery and a final decision can be made about surgery. [place] filled out and we are waiting for transfer to snf DIAGNOSES: Acute sciatica Chronic lumbar degenerative disease ADHD, super morbid obesity, hypertension, dyslipidemia, degenerative joint disease, hypothyroidism, ]GERD Normal [facility] Utilization Review Noteon Utilization Review Note Patient admitted with back pain and difficulty ambulating. Has DJD of spine with siatica. Is scheduled for back surgery in April. Recently discharge from nursing facility in [place] and has been living with his brother in [place]. However, pt is having difficulty ambulating due to pain and would like to return to a nursing facility until surgery. Patient is on po pain meds for his pain. D/C plan at this time is possible d/c to nursing facility. PT/OT eval ordered. Barrier to d/c: Awaiting PT/OT evals. Patient remains only on PO meds for treatment - does not meet IP LOC. Cont to await PT/OT eval for further POC. CONTINUE TO WAIT FOR PRECERT FROM [facility] IN [place]. DOES NOT MEET IN PT CRITERIA - REMAIN OBS. Normal [facility] AUTO DIFFon 03-28-2019 Basophils (Bld) [#/Vol] 0.07 x1000 Normal 0.00-0.20 [facility] Comment on above: Performed By: #### 1 94167, 788693, 361098, 794859, 535588, 0295853 #### [facility] [address] [place] [address] Day Care Teacher: Duran Marcus MD Basos % 0.7 % Normal [facility] Comment on above: Performed By: #### 1 89294, 437866, 904907, 399901, 465179, 3711685 #### [facility] [address] [place] [address] Day Care Teacher: Duran Marcus MD Eos Count 0.17 x1000 Normal 0.00-0.50 [facility] Comment on above: Performed By: #### 1 45277, 387849, 257744, 363700, 385913, 3147909 #### [facility] [address] [place] [address] Day Care Teacher: Duran Marcus MD Eosinophils/100 WBC (Bld) 1.8 % Normal [facility] Comment on above: Performed By: #### 1 69860, 011590, 401598, 155950, 089559, 4777723 #### [facility] [address] [place] [address] Day Care Teacher: Duran Marcus MD Lymphocytes (Bld) [#/Vol] 2.14 x1000 Normal 1.20-4.80 [facility] Comment on above: Performed By: #### 1 84083, 019030, 807352, 242360, 129013, 3219163 #### [facility] [address] [place] [address] Day Care Teacher: Duran Marcus MD Lymphocytes/100 WBC (Bld) 21.9 % Normal [facility] Comment on above: Performed By: #### 1 17759, 863228, 480782, 633038, 759980, 9716362 #### [facility] [address] [place] [address] Day Care Teacher: Duran Marcus MD Lamb Count 0.50 x1000 Normal 0.10-1.00 [facility] Comment on above: Performed By: #### 1 19100, 079226, 138627, 315836, 541662, 9608558 #### [facility] [address] [place] [address] Day Care Teacher: Duran Marcus MD Monocytes/100 WBC (Bld) 5.1 % Normal [facility] Comment on above: Performed By: #### 1 40255, 365337, 951439, 985834, 157348, 5115557 #### [facility] [address] [place] [address] Day Care Teacher: Duran Marcus MD Neutrophils (Bld) [#/Vol] 6.89 x1000 Normal 1.40-8.80 [facility] Comment on above: Performed By: #### 1 04429, 108642, 041154, 934091, 564703, 5837786 #### [facility] [address] [place] [address] Day Care Teacher: Duran Marucs MD Neutrophils/100 WBC (Bld) 70.6 % Normal [facility] Comment on above: Performed By: #### 1 39619, 024685, 302741, 306290, 739232, 1875404 #### [facility] [address] [place] [address] Day Care Teacher: Duran Marcus MD BASIC METABOLIC PANELon 03-03 Anion gap [Moles/Vol] Canceled Normal [facility] Comment on above: Order Comment: TEST BASIC METABOLIC PANEL WAS CANCELLED, 03/28/2019 04:30 ?Cancel Reason:Patient Discharged. Performed By: #### B MP ####[facility] [place] [address], [place] [address] Calcium [Mass/Vol] Canceled Normal [facility] Comment on above: Order Comment: TEST BASIC METABOLIC PANEL WAS CANCELLED, 03/28/2019 04:30 ?Cancel Reason:Patient Discharged. Performed By: #### B MP ####[address] [place] [address] Chloride [Moles/Vol] Canceled Normal [facility] Comment on above: Order Comment: TEST BASIC METABOLIC PANEL WAS CANCELLED, 03/28/2019 04:30 ?Cancel Reason:Patient Discharged. Performed By: #### B MP ####[address] [place] [address] Creatinine [Mass/Vol] Canceled Normal [facility] Comment on above: Order Comment: TEST BASIC METABOLIC PANEL WAS CANCELLED, 03/28/2019 04:30 ?Cancel Reason:Patient Discharged. Performed By: #### B MP ####[address] [place] [address] GFR- AM. Canceled Normal [facility] Comment on above: Order Comment: TEST BASIC METABOLIC PANEL WAS CANCELLED, 03/28/2019 04:30 ?Cancel Reason:Patient Discharged. Result Comment: CALC ULATIONS OF ESTIMATED GFR ARE PERFORMED USING THE MDRD STUDY EQUATION FOR THE IDMS-TRACEABLE CREATININE METHODS. CLIN CHEM 2007;53:766-72 Performed By: #### B MP ####[address] [place] [address] GFR-NON AM. Canceled Normal [facility] Comment on above: Order Comment: TEST BASIC METABOLIC PANEL WAS CANCELLED, 03/28/2019 04:30 ?Cancel Reason:Patient Discharged. Performed By: #### B MP ####[address] [place] [address] Glucose [Mass/Vol] Canceled Normal [facility] Comment on above: Order Comment: TEST BASIC METABOLIC PANEL WAS CANCELLED, 03/28/2019 04:30 ?Cancel Reason:Patient Discharged. Performed By: #### B MP ####[id number] [place] [address] HCO3 (Bld) [Moles/Vol] Canceled Normal [facility] Comment on above: Order Comment: TEST BASIC METABOLIC PANEL WAS CANCELLED, 03/28/2019 04:30 ?Cancel Reason:Patient Discharged. Performed By: #### B MP ####[facility] [place] [address] Potassium [Moles/Vol] Canceled Normal [facility] Comment on above: Order Comment: TEST BASIC METABOLIC PANEL WAS CANCELLED, 03/28/2019 04:30 ?Cancel Reason:Patient Discharged. Performed By: #### B MP ####[address] [place] [address] Sodium [Moles/Vol] Canceled Normal [facility] Comment on above: Order Comment: TEST BASIC METABOLIC PANEL WAS CANCELLED, 03/28/2019 04:30 ?Cancel Reason:Patient Discharged. Performed By: #### B MP ####[address] [place] [address] Urea nitrogen [Mass/Vol] Canceled Normal [facility] Comment on above: Order Comment: TEST BASIC METABOLIC PANEL WAS CANCELLED, 03/28/2019 04:30 ?Cancel Reason:Patient Discharged. Performed By: #### B MP ####[address] [place] [address] CBCon 03-28-2019 Erythrocyte distribution width (RBC) [Ratio] Canceled Normal [facility] Comment on above: Order Comment: TEST CBC WAS CANCELLED, 03/28/2019 04:30 ?Cancel Reason: Patient Discharged. Performed By: #### C BC ####[address] [place] [address] Hematocrit (Bld) [Volume fraction] Canceled Normal [facility] Comment on above: Order Comment: TEST CBC WAS CANCELLED, 03/28/2019 04:30 ?Cancel Reason: Patient Discharged. Performed By: #### C BC ####[facility] [place] [address] [place] [address] Hemoglobin (Bld) [Mass/Vol] Canceled Normal [facility] Comment on above: Order Comment: TEST CBC WAS CANCELLED, 03/28/2019 04:30 ?Cancel Reason: Patient Discharged. Performed By: #### C BC ####[address] [address] MCHC (RBC) [Mass/Vol] Canceled Normal [facility] Comment on above: Order Comment: TEST CBC WAS CANCELLED, 03/28/2019 04:30 ?Cancel Reason: Patient Discharged. Performed By: #### C BC ####[address] [address] MCV (RBC) [Entitic vol] Canceled Normal [facility] Comment on above: Order Comment: TEST CBC WAS CANCELLED, 03/28/2019 04:30 ?Cancel Reason: Patient Discharged. Performed By: #### C BC ####[address] [address] Nucleated RBC/100 WBC (Bld) [Ratio] Canceled Normal [facility] Comment on above: Order Comment: TEST CBC WAS CANCELLED, 03/28/2019 04:30 ?Cancel Reason: Patient Discharged. Performed By: #### C BC ####[address] [address] Platelets (Bld) [#/Vol] Canceled Normal [facility] Comment on above: Order Comment: TEST CBC WAS CANCELLED, 03/28/2019 04:30 ?Cancel Reason: Patient Discharged. Performed By: #### C BC ####[address] [address] RBC (Bld) [#/Vol] Canceled Normal [facility] Comment on above: Order Comment: TEST CBC WAS CANCELLED, 03/28/2019 04:30 ?Cancel Reason: Patient Discharged. Performed By: #### C BC ####[address] [address] WBC (Bld) [#/Vol] Canceled Normal [facility] Comment on above: Order Comment: TEST CBC WAS CANCELLED, 03/28/2019 04:30 ?Cancel Reason: Patient Discharged. Performed By: #### C BC ####[address] [place] [address] COMPMETAon 03-28-2019 Albumin/Globulin [Mass ratio] 0.7 {ratio} Normal [facility] Comment on above: Performed By: #### 1 92111, 403707, 480883, 636622, 932565, 3561394 #### [facility] [address] [place] [address] Day Care Teacher: Duran Marcus MD GFR AA >60 Normal [facility] Comment on above: Result Comment: Afri can [place] GFR Calc Medical judgement is necessary to interpret GFR. The calculated GFR may not accurately reflect renal status in patients >70 years, women, acutely ill hospitalized patients and patients with acute renal failure or known renal disease. The MDRD GFR formula is valid only for adults greater than 18 years of age. Note: Creatinine clearance (not GFR) should be used for drug dosing. Performed By: #### 1 72377, 341944, 634223, 393354, 711745, 6124630 #### [facility] [address] [place] [id number] Day Care Teacher: Duran Marcus MD GFR/1.73 sq M predicted among non-blacks MDRD (S/P/Bld) [Vol rate/Area] mL/min/{1.73_m2} Normal [facility] Comment on above: Result Comment: Non GFR Calc Medical judgement is necessary to interpret GFR. The calculated GFR may not accurately reflect renal status in patients >70 years, women, acutely ill hospitalized patients and patients with acute renal failure or known renal disease. The MDRD GFR formula is valid only for adults greater than 18 years of age. Note: Creatinine clearance (not GFR) should be used for drug dosing. Performed By: #### 1 91708, 528285, 366950, 205765, 102278, 2699468 #### [facility] [address] [place] [address] Day Care Teacher: Duran Marcus MD Osmolality [Osmolality] 276 mOsm/kg Normal 275-295 [facility] Comment on above: Performed By: #### 1 90325, 182359, 529732, 673761, 348308, 2805622 #### [facility] [address] [place] [address] Day Care Teacher: Duran Marcus MD Urea nitrogen/Creatinine [Mass ratio] 15.2 mg/mg Normal [facility] Comment on above: Performed By: #### 1 25557, 983287, 407431, 285413, 245838, 2696278 #### [facility] [address] [place] [address] Day Care Teacher: Duran Marcus MD Albumin [Mass/Vol] 3.2 g/dL Low 3.4-5.0 [facility] Comment on above: Performed By: #### 1 52956, 879268, 962355, 921044, 538966, 3462135 #### [facility] [address] [place] [address] Day Care Teacher: Duran Marcus MD Alk Phos 152 unit/L High 45-117 [facility] Comment on above: Performed By: #### 1 25379, 075207, 503082, 468959, 627569, 3406945 #### [facility] [address] [place] [address] Day Care Teacher: Duran Marcus MD Bilirubin [Mass/Vol] 0.46 mg/dL Normal 0.20-1.00 [facility] Comment on above: Performed By: #### 1 22312, 326069, 456206, 306529, 752167, 0156807 #### [facility] [address] [place] [address] Day Care Teacher: Duran Marcus MD Calcium [Mass/Vol] 9.0 mg/dL Normal 8.5-10.5 [facility] Comment on above: Performed By: #### 1 19533, 326440, 032969, 639462, 407719, 5617275 #### [facility] [address] [place] [address] Day Care Teacher: Duran Marcus MD Chloride [Moles/Vol] 104 mmol/L Normal 100-109 [facility] Comment on above: Performed By: #### 1 87590, 095440, 448962, 253432, 831033, 3461939 #### [facility] [address] [place] [address] Day Care Teacher: Duran Marcus MD CO2, venous 27.3 mmol/L Normal 21.0-32.0 [facility] Comment on above: Performed By: #### 1 70629, 587523, 796391, 573143, 284309, 7308002 #### [facility] [address] [place] [address] Day Care Teacher: Duran Marcus MD Creatinine [Mass/Vol] 0.9 mg/dL Normal 0.7-1.3 [facility] Comment on above: Performed By: #### 1 30615, 726078, 072891, 775242, 282769, 2055485 #### [facility] [address] [place] [address] Day Care Teacher: Duran Marcus MD Globulin (S) [Mass/Vol] 4.4 g/dL Normal [facility] Comment on above: Performed By: #### 1 45936, 156641, 063797, 920406, 220432, 7604081 #### [facility] [address] [place] [address] Day Care Teacher: Duran Marcus MD Glucose [Mass/Vol] 95 mg/dL Normal 72-100 [facility] Comment on above: Result Comment: Stacie puncture should occur prior to sulfasalazine administration due to the potential for falsely depressed results. Venipuncture should occur prior to sulfapyridine administration due to the potential falsely elevated results. Baseline assay values before administration of sulfasalazine and sulfapyridine therapy would not be affected. Performed By: #### 1 75627, 323369, 586077, 456602, 597595, 2994311 #### [facility] [address] [place] [address] Day Care Teacher: Duran Marcus MD GOT 14 unit/L Low 15-37 [facility] Comment on above: Result Comment: Stacie puncture should occur prior to sulfasalazine and/or sulfapyridine administration due to the potential for falsely depressed results. Baseline assay values before administration of sulfasalazine and sulfapyridine therapy would not be affected. Performed By: #### 1 55477, 032294, 211637, 045869, 767476, 3670738 #### [facility] [address] [place], [place] [address] Day Care Teacher: Duran Marcus MD GPT 12 unit/L Low 16-61 [facility] Comment on above: Result Comment: Stacie puncture should occur prior to sulfasalazine and/or sulfapyridine administration due to the potential for falsely depressed results. Baseline assay values before administration of sulfasalazine and sulfapyridine therapy would not be affected. Performed By: #### 1 89570, 642266, 483430, 328986, 613287, 5849810 #### [facility] [address] [place] [address] Day Care Teacher: Duran Macrus MD Potassium [Moles/Vol] 4.0 mmol/L Normal 3.5-5.1 [facility] Comment on above: Performed By: #### 1 48479, 100146, 982076, 671770, 735893, 4195715 #### [facility] [address] [place] [address] Day Care Teacher: Duran Marcus MD Protein [Mass/Vol] 7.6 g/dL Normal 6.0-8.5 [facility] Comment on above: Performed By: #### 1 29086, 657082, 789709, 934115, 028503, 7359862 #### [facility] [address] [place] [address] Day Care Teacher: Duran Marcus MD Sodium [Moles/Vol] 138 mmol/L Normal 135-145 [facility] Comment on above: Performed By: #### 1 79234, 256555, 203659, 776793, 739828, 1588525 #### [facility] [address] [place] [address] Day Care Teacher: Duran Marcus MD Urea nitrogen [Mass/Vol] 13 mg/dL Normal 10-20 [facility] Comment on above: Performed By: #### 1 99112, 652939, 359754, 603089, 313618, 6806585 #### [facility] [address] [place] [address] Day Care Teacher: Duran Marcus MD ED Physician Reporton 2018 ED Physician Report Patient: SHIV GERBER Age: 59 years Sex: Male : 1960 Associated Diagnoses: Sciatica; Intractable back pain; Chronic back pain Author: GREG EDWARD MD Basic Information Time seen: Immediately upon arrival. History source: Patient. Arrival mode: Private vehicle. History limitation: None. History of Present Illness The patient presents with lumbar pain. The onset was just prior to arrival. The course/duration of symptoms is constant. Type of injury:. The location where the incident occurred was at home. Radiating pain: left lower extremity. The character of symptoms is sharp. The degree at onset was severe. The degree at present is severe. There are exacerbating factors including movement and bending over. The relieving factor is none. Prior episodes: frequent. Therapy today: none. Associated symptoms: none. Pt with chronic back pain presents to ED complaining of left lower back pain radiating down left leg consistent with his previous symptoms. Pt states he has been unable to walk today d/t the pain in his left leg. He states he fell 3 times up the stairs and injured his left shoulder as a result. The patient states the only thing that works for him is 2mg of dilaudid. He denies any other complaints. He is requesting to go back to his [facility] home in [place].. Review of Systems Constitutional symptoms: No fever, no chills. Skin symptoms: No jaundice, no rash. Eye symptoms: No recent vision problems, no pain, no blurred vision. ENMT symptoms: No ear pain, no sore throat, no nasal congestion. Respiratory symptoms: No shortness of breath, no orthopnea, no cough. Cardiovascular symptoms: No chest pain, no palpitations, no syncope. Gastrointestinal symptoms: No abdominal pain, no nausea, no vomiting, no diarrhea, no constipation. Genitourinary symptoms: No dysuria, no hematuria. Musculoskeletal symptoms: Back pain, Muscle pain, Joint pain. Psychiatric symptoms: No anxiety, no depression. Neurologic symptoms No headache, no dizziness, no altered level of consciousness. Health Status Allergies: Allergic Reactions (All) Severity Not Documented Fish Oil- No reactions were documented. Nubain- No reactions were documented. Toradol- No reactions were documented.. Past Medical/ Family/ Social History Medical history: Past medical history reviewed.. Surgical history: Reviewed as documented in chart. Family history: Reviewed as documented in chart. Social history: Not significant. Physical Examination Vital Signs Vital Signs 03/27/2019 19:28 EDT Temperature Oral 36.6 degC NORMAL Peripheral Pulse Rate 84 bpm NORMAL Respiratory Rate 18 br/min NORMAL Systolic Blood Pressure 133 mmHg NORMAL Diastolic Blood Pressure 50 mmHg LOW SpO2 97 % NORMAL Oxygen Therapy Room air Weight Measured Type of Scale Patient Stated Weight Height/Length Dosing 165.10 cm Patient Stated Weight 140.9 kg . General: Alert. Skin: Warm, dry, no rash. Head: Normocephalic, atraumatic. Neck: Supple, trachea midline. Eye: Pupils are equal, round and reactive to light, extraocular movements are intact. Ears, nose, mouth and throat: Oral mucosa moist. Cardiovascular: Regular rate and rhythm, No murmur, No edema. Respiratory: Lungs are clear to auscultation, respirations are non-labored, breath sounds are equal. Gastrointestinal: Soft, Nontender, Non distended, Normal bowel sounds. Back: decreased ROM 2/2 pain. Tenderness to lumbar paraspinal region on left. No midline vertebral tenderness. Good circulation/senation/movemen t distal b/l lower extremities. Pt would not let me assess straight leg raise.. Musculoskeletal: Normal ROM, normal strength. Psychiatric: Cooperative. Neurological Alert and oriented to person, place, time, and situation, No focal neurological deficit observed, normal sensory observed, normal motor observed, normal speech observed. Medical Decision Making Notes: CT LUMBAR W/O CONTRAST 03/27/19 20:31:00 CT LUMBAR SPINE WITHOUT IV CONTRAST CLINICAL STATEMENT: TRAUMA. TECHNOLOGIST NOTES: WHAT SYMPTOMS ARE YOU EXPERIENCING? - LEFT LEG PAIN, BACK PAIN TECHNIQUE: Multiple-row detector helical CT examination of the lumbar spine without IV contrast. Axial, sagittal, and coronal reconstructed images. This exam was performed according to our departmental dose optimization program, and includes the following measures where applicable: automated exposure control, adjustment of the mAs and/or kVp according to patient size and/or exam, and an iterative reconstruction algorithm. COMPARISON: None. FINDINGS: There is no evidence of acute fracture or subluxation. There is a slight left convex curvature of the lumbar spine.. Vertebral body heights are maintained. No aggressive osseous lesions are identified. There is multilevel degenerative disc disease and vacuum disc phenomenon. There is also bilateral facet arthropathy. There are L4 laminectomies. There is no significant abnormality visible within the spinal canal. The paraspinal soft tissues and retroperitoneal structures demonstrate no acute abnormality. There is a left hip arthroplasty. IMPRESSION No acute compression deformity or malalignment. Diffuse degenerative spondylosis. There is multilevel degenerative disc disease and vacuum disc phenomenon. There is also bilateral facet arthropathy. Electronically signed by: Hitesh Mario MD 03/27/2019 8:22 PM CDT Signed By: HITESH MARIO MD SHOULDER LEFT 2 VIEWS 03/27/19 20:32:00 CLINICAL INDICATION: INJURY. Shoulder pain post trauma. TECHNIQUE: 3 view(s) were obtained of the left shoulder. COMPARISON: None. FINDINGS: No acute displaced fracture is identified of the shoulder. Alignment appears anatomic. Osteoarthritis. Surrounding soft tissues are unremarkable. IMPRESSION: No evidence of acute bony injury to the shoulder. Electronically signed by: Dc Hood MD 03/27/2019 8:02 PM CDT Signed By: DC HOOD MD. Reexamination/ Reevaluation Time: 03/28/2019 22:30:00 . Notes: Pt states he feels only a little better (Pain is 7/10). He was resting comfortably and did not appear to be in any distress. I discussed with pt continuing outpatient care, though he states he cannot go back as he feels the pain is debihiltating and he cannot take care of himself. The patient states he feels he needs to go back to detention. The will be placed under observation with case management evaluation in the AM. The patient agrees with this plan. The patient had acute exacerbation of his chronic radicular lumbar pain. The CT showed his chronic disease. He had no red flags for acute cord compression.. Impression and Plan Diagnosis Sciatica (FIR73-NW M54.30, Working, Medical) Intractable back pain (WTV74-BZ M54.9, Working, Medical) Chronic back pain (EQU19-LU M54.9, Working, Medical) Plan Condition: Improved. Disposition: Admit time 03/27/2019 22:31:00, Place in Observation Unit, MEGAN MONROE MD. Counseled: Patient, Regarding diagnosis, Regarding diagnostic results, Regarding treatment plan, Regarding prescription, Patient indicated understanding of instructions. Normal [facility] ED Progress Noteon 9 ED Progress Note pt. presents to RA 3 with complaints of left hip pain that travels into his leg. pt. states that he has a history of sciatica ojn the left side and is supposed to see a surgeon about taking care of his chronic pain. pt. states that his percocet weren't working at home and he usually gets dilaudid and muscle relaxers. pt. VSS. Will continue to monitor. 2307-report called to Sylvie on 1d. pt. left in stable condition via wheelchair. safety maintained. Normal [facility] HEMOon 03-28-2019 DIFF? No [facility] Comment on above: Performed By: #### 1 [id number], 659288, 697795, 179558, 895814, [id number] #### [facility] [address] [place] [address] Day Care Teacher: Duran Marcus MD Erythrocyte distribution width (RBC) [Ratio] 15.5 % High 11.5-14.5 [facility] Comment on above: Performed By: #### 1 83595, 470873, 259240, 357685, 888884, [id number] #### [facility] [address] [place] [address] Day Care Teacher: Duran Marcus MD Hematocrit (Bld) [Volume fraction] 35.2 % Low 41.0-52.0 [facility] Comment on above: Performed By: #### 1 69541, 473959, 188626, 837642, 015985, [id number] #### [facility] [address] [place] [address] Day Care Teacher: Duran Marcus MD Hemoglobin (Bld) [Mass/Vol] 11.4 g/dL Low 13.5-17.5 [facility] Comment on above: Performed By: #### 1 23979, 584835, 114612, 370165, 901773, [id number] #### [facility] [address] [place] [address] Day Care Teacher: Duran Marcus MD MCH (RBC) [Entitic mass] 27.8 pg Normal 27.0-34.0 [facility] Comment on above: Performed By: #### 1 18116, 914697, 970531, 837169, 964326, [id number] #### [facility] [address] [place] [address] Day Care Teacher: Duran Marcus MD MCHC (RBC) [Mass/Vol] 32.5 g/dL Normal 32.0-37.0 [facility] Comment on above: Performed By: #### 1 17071, 694014, 911992, 092856, 986454, [id number] #### [facility] [address] [place] [address] Day Care Teacher: Duran Marcus MD MCV (RBC) [Entitic vol] 85.5 fL Normal 80.0-100.0 [facility] Comment on above: Performed By: #### 1 00409, 262243, 855446, 089525, 464803, [id number] #### [facility] [address] [place] [address] Day Care Teacher: Duran Marcus MD Nucleated RBC (Bld) [#/Vol] 0 /100WBC Normal [facility] Comment on above: Performed By: #### 1 02861, 398911, 008784, 598120, 768627, 2733983 #### [facility] [address] [place] [address] Day Care Teacher: Duran Marcus MD Platelet mean volume (Bld) [Entitic vol] 7.3 fL Low 7.4-10.4 [facility] Comment on above: Performed By: #### 1 78265, 859143, 265222, 309625, 123888, [id number] #### [facility] [address] [place] [address] Day Care Teacher: Duran Marcus MD Platelets (Bld) [#/Vol] 275 x1000 Normal 150-450 [facility] Comment on above: Performed By: #### 1 38210, 249139, 053859, 421705, 683189, 4735370 #### [facility] [address] [place] [address] Day Care Teacher: Duran Marcus MD RBC (Bld) [#/Vol] 4.12 x10 Low 4.70-6.[address] [facility] Comment on above: Result Comment: Note : RBC morphology is normal unless otherwise stated. Evaluation performed only if differential is requested. Performed By: #### 1 22652, 754044, 559046, 828808, 354736, [id number] #### [facility] [address] [place] [address] Day Care Teacher: Duran Marcus MD WBC (Bld) [#/Vol] 9.8 10*3/uL Normal [facility] Comment on above: Performed By: #### 1 36652, 882978, 905389, 022331, 457352, 9083212 #### [facility] [address] [place] [address] Day Care Teacher: Duran Marcus MD WBC (Bld) [#/Vol] 9.8 x10 Normal 4.5-11.[address] [facility] Comment on above: Performed By: #### 1 42673, 969329, 651132, 735353, 320772, [id number] #### [facility] [address] [place] [address] Day Care Teacher: Duran Marcus MD History and Physicalon 03-28 History and Physical Patient: VICKI GERBER Age: 59 years Sex: Male : 1960 Associated Diagnoses: None Author: MABEL LUCERO, [facility] Chief Complaint Inability to walk History of Present Illness This is a 59-year-old male presented to the emergency room for evaluation of back pain and inability to walk. The patient resides at the detention in [place], he is morbidly obese. He presented for evaluation of worsening low back pain and left lower leg pain sharp severe limiting his movement, pain worse with movement and bending over. Denies any fever chills nausea vomiting dizziness or diarrhea. The patient was staying at the detention in [place] but was discharged about a week ago, came to stay with his brother here in [place]. He is awaiting back surgery at the end of April and the hope that it would improve his condition. However, it has been difficult for him to manage unassisted. He would like to go back to the detention until he gets his surgery done Histories Past Medical History: ADHD, super morbid obesity, hypertension, dyslipidemia, degenerative joint disease, hypothyroidism, GERD Family History: Father: Stroke.. Mother: Aneurysm....; Stroke.. Sister: Heart attack.... Social History Social & Psychosocial Habits Alcohol 11/30/2015 Risk Assessment: Denies Alcohol Use Home/Environment 08/06/2016 Lives with: Alone *Living Situation Prior to Admission Home/Independent Home equipment: Walker/Cane Monitoring Equipment in home None *Special Services and Community Resources Prior to Admission None *Mobility Assistance Prior to Admission Total A Home Barriers None *Will patient require additional/new services upon discharge No Nutrition/Health 08/06/2016 Type of diet: Low carbohydrate, Low cholesterol, Low fat Appetite Good Feeding Assistance Independent *Unintentional weight change > 15 lbs in the last 2 months No Substance Abuse 08/05/2016 Risk Assessment: Denies Substance Abuse Tobacco 11/30/2015 Use: Never smoker Domestic Concerns 08/06/2016 Feels highly stressed: No *Requesting to speak to someone regarding stress No Emotional Support Available No . Health Status Allergies (3) Active Reaction Fish Oil None Documented Nubain None Documented Toradol None Documented .Current medications: Home Meds (ST) Home Medications (16) Active Adderall 20 mg oral tablet 20 mg = 1 tabs, ORAL, DAILY aspirin 81 mg oral tablet 81 mg = 1 tabs, ORAL, DAILY WITH BREAKFAST CeleXA 20 mg oral tablet 20 mg = 1 tabs, ORAL, DAILY Coreg 6.25 mg oral tablet 6.25 mg = 1 tabs, ORAL, DAILY Lasix 20 mg oral tablet 1 caps, ORAL, DAILY levothyroxine 25 mcg (0.025 mg) oral tablet 25 mcg = 1 tabs, ORAL, DAILY Lidoderm 5% topical film 1 patches, Topical, DAILY Lipitor 20 mg oral tablet 20 mg = 1 tabs, ORAL, QHS Nitrostat 0.4 mg sublingual tablet 0.4 mg = 1 tabs, PRN, Sublingual, Q5MIN omeprazole 40 mg oral delayed release capsule 40 mg = 1 caps, ORAL, DAILY oxyCODONE 5 mg oral tablet (IR) 5 mg = 1 tabs, PRN, ORAL, [id number] Plavix 75 mg oral tablet 75 mg = 1 tabs, ORAL, DAILY SEROquel 100 mg oral tablet 100 mg = 1 tabs, ORAL, QHS Ultram 50 mg oral tablet 50 mg = 1 tabs, PRN, ORAL, [id number] verapamil 120 mg/12 hours oral tablet, extended release 120 mg = 1 tabs, ORAL, BID Zestril 2.5 mg oral tablet 2.5 mg = 1 tabs, ORAL, DAILY Review of Systems Constitutional: Negative except as documented in history of present illness. Eye: Negative except as documented in history of present illness. Ear/Nose/Mouth/Throat: Negative except as documented in history of present illness. Respiratory: Negative except as documented in history of present illness. Cardiovascular: Negative except as documented in history of present illness. Gastrointestinal: Negative except as documented in history of present illness. Genitourinary: Negative except as documented in history of present illness. Hematology/Lymphatics: Negative except as documented in history of present illness. Endocrine: Negative except as documented in history of present illness. Immunologic: Negative except as documented in history of present illness. Musculoskeletal: Negative except as documented in history of present illness. Integumentary: Negative except as documented in history of present illness. Neurologic: Negative except as documented in history of present illness. Psychiatric: Negative except as documented in history of present illness. All Other ROS: ROS reviewed as documented in chart. Physical Examination VS/Measurements Vital Signs (last 24 hrs) Last Charted Temp Oral 36.6 degC (MAR 27 19:28) Heart Rate Peripheral 75 bpm (MAR 27 23:00) Resp Rate 16 br/min (MAR 27:) SBP 128 mmHg (MAR 27:00) DBP 65 mmHg (MAR 27:) General: Alert and oriented, Super morbidly obese. Eye: Pupils are equal, round and reactive to light, Extraocular movements are intact. HENT: Normocephalic. Neck: Supple. Respiratory: Lungs are clear to auscultation, Respirations are non-labored, Breath sounds are equal, Symmetrical chest wall expansion. Cardiovascular: Normal rate, Regular rhythm. Gastrointestinal: Soft, Non-tender, Non-distended, Normal bowel sounds. Genitourinary: No costovertebral angle tenderness. Lymphatics: No lymphadenopathy neck, axilla, groin. Musculoskeletal: Normal range of motion, Normal strength, No tenderness, No swelling. Integumentary: Warm, Dry. Neurologic: Alert, Oriented, Normal sensory, Normal motor function, No focal deficits, Cranial Nerves II-XII are grossly intact. Cognition and Speech: Oriented, Speech clear and coherent. Psychiatric: Cooperative, Appropriate mood & affect, Normal judgment, Non-suicidal. Review / Management Results review: General Labs () CBCWD WBC: 9.8 x10 RBC: 4.12 x10 HGB: 11.4 g/dL Low (03/27/19) HCT: 35.2 % Low (03/27/19) MCV: 85.5 fL (03/27/19) MCH: 27.8 pg (03/27/19) MCHC: 32.5 g/dL (03/27/19) RDW: 15.5 High (03/27/19) Platelet: 275 x1000 (03/27/19) MPV: 7.3 fL Low (03/27/19) CMP BUN: 13 mg/dL (03/27/19) Na: 138 mmol/L (03/27/19) K: 4 mmol/L (03/27/19) Chloride: 104 mmol/L (03/27/19) CO2, venous: 27.3 mmol/L (03/27/19) Glucose: 95 mg/dL (03/27/19) Creatinine: 0.9 mg/dL (03/27/19) Total Protein: 7.6 g/dL (03/27/19) Calcium: 9 mg/dL (03/27/19) Bilirubin, Total: 0.46 mg/dL (03/27/19) Alk Phos: 152 unit/L High (03/27/19) GOT: 14 unit/L Low (03/27/19) GPT: 12 unit/L Low (03/27/19) ALB: 3.2 g/dL Low (03/27/19). Impression and Plan Degenerative joint disease with sciatica of the left leg and ambulatory dysfunction ADHD, super morbid obesity, hypertension, dyslipidemia, degenerative joint disease, hypothyroidism, GERD Plan: Patient will be admitted to the hospital I will order Tylenol and continue his oxycodone and Ultram for pain PT OT evaluation and treatment, the patient will need to go back to his detention until he receives back surgery at the end of April, will consult social service/case management Lovenox and SCDs for DVT prophylaxis Normal [facility] Nursing Clinical Noteon 10-2 7-2019 Nursing Clinical Note 1015: Pt safe and stable at this time. head to toe assessment completed and charted in iview. morning medications administered. awaiting further orders. will continue to monitor and maintain safety precautions. Normal [facility] Progress Note-Physicianon Progress Note-Physician Patient: NATALIE GERBER Age: 59 years Sex: Male : 1960 Associated Diagnoses: None Author: MALCOLM BARLOW MD SUBJECTIVE: 59-year-old male with chronic back pain comes for an acute exacerbation. Patient states the pain is at 6 out of 10 but he sitting up. He does not have an IV. He has multiple medical problems and a long history of back problems and is scheduled for another opinion at [facility] in a week or 2 VITAL SIGN: TEMPERATURE 36.4 BP 118/72 PULSE 74 PULSE OX 99 RESPIRATORY RATE GENERAL: alert and oriented, breathing comfortably CV: S1 S2 RRR, no murmur CHEST: clear to auscultation, no wheezing or adventicious lung sounds LOWER EXTREMITY : warm, dorsalis pedis pulses palpable ABDOMEN: soft,nontender, positive bowel sounds NEURO: cranial nerves intact, normal speech, using all four extremities LABS: k 4.0, cre 0.8, wbc 10, hb 12 RADIOLOGY: CT lumbar spine: IMPRESSION No acute compression deformity or malalignment. Diffuse degenerative spondylosis. There is multilevel degenerative disc disease and vacuum disc phenomenon. There is also bilateral facet arthropathy. ASSESSMENT/PLAN: 59-year-old male with inability to ambulate and severe pain on his chronic back. Unclear what causes acute exacerbation. Discussed with patient and dynamiter. Will increase pain meds add steroids and muscle relaxers. We will attempt to look for a place where he can stay until he can get his back looked at by neurosurgery and a final decision can be made about surgery. DIAGNOSES: Acute sciatica Chronic lumbar degenerative disease ADHD, super morbid obesity, hypertension, dyslipidemia, degenerative joint disease, hypothyroidism, ]GERD Normal [facility] Admission Risk Screen - Adul ton 03-27-2019 Admission Risk Screen - Adult Allergies: Allergies: Nubain: Anxiety, Hives/Urticaria Toradol IV/IM: Hives/Urticaria Fish: Hives/Urticaria Patient Verification: New W ID Band Applied in my Departmentno Type of ID Patient is WearingW wristband, but not applied here Patient Transferred from Other Facility ([facility], [facility],etc)no Patient Identity Verified Bypatient ID Band FULL Name, include Middle, spelling matches patient's ID used for verificationyes ID Band Matches Patient ID used for Verficationyes ID Band MRN Matches EMR MRNyes Advance Directive: Advance Directive/DNRno (1) Advance Directive Information Givenpatient/family declined Falls Screen: Type of Assessmentadmission Moderate Risk Factorspatient care equipment (scds, ivs, chest tubes, schulte, etc) High Risk Factorsrecent falls Risk for Injury Associated with Fallcoagulation blood thinners (Coumadin, heparin gtt), coagulopathy Fall Risk Conclusionhigh falls risk with risk for associated injury [place] Safety InterventionsWDL *orient to call system *instruct to call for assistance before getting out of bed *non-slip footwear when patient is out of bed *call st in reach *personal items and telephone in reach *physically safe environment (no spills or clutter) *bed in lowest position with wheels locked *appropriate side rails in place *room/bathroom lighting operational, light cord in reach *appropriate signage on door Fall and Injury Risk Interventionssupervised toileting (mandatory for all high risk patients), exit (bed/chair) alarms (mandatory for all high risk patients), bed alarm - zero scale to ensure bed alarm operation, chair alarm, collaborate with team for PT/OT consult/ambulatory aids, educate pt/family, educate patient/family for risk for injury (fractures and bleeding), do not leave patient unattended while in the bathroom Family Violence Screen: Are you or have you been threatened or abused physically, emotionally, or sexually by anyoneno Do you feel UNSAFE going back to the place where you are livingno Clinical assessment: Are there any apparent signs of injuries/behaviors that could be related to abuse/neglectno Social Service Consult for abuse/neglect needed this visitno Functional Screen: Functional Screen: In the recent/past 2-4 weeks, patient or family have noticedno issues that require a speech/language consult at this time AM-PAC- Basic Mobility/Daily Activity: Patient baseline bedboundno Turning from your back to your side while in a flat bed without using bedrailsnone Moving from lying on your back to sitting on the side of a flat bed without using bedrailsnone Moving to and from bed to chair (including a wheelchair)none Standing up from a chair using your arms (e.g. wheelchair or bedside chair) none To walk in hospital roomnone Climbing 3-5 steps with railinga derrek AM-[facility] Basic Mobility- Total Score23 Putting on and taking off regular lower body clothingnone Bathing (including washing, rinsing, drying)none Putting on and taking off regular upper body clothingnone Toileting, which includes using toilet, bedpan or urinalnone Taking care of personal grooming such as brushing teethnone Eating Mealsnone AM-[facility] Daily Activity- Total Score24 Learning Assessment (Patient): Patient is Able to be Assessed for Learningyes Factors Influencing Readiness to Learnacuteness of illness Factors that Impact Ability to Learnnone Devices/Methods Used to Communicateglasses Learning Preferencesverbal instruction Cultural Considerationsnone Developmental Considerationsnone Jehovah'S Witness Considerationsnone Learning Assessment (Other Learner): Other learner availableno Suicide/Depression Screen: During the past month, have you often been bothered by feeling down, depressed or hopelessno During the past month, have you often had little interest or pleasure in doing thingsno Have you had any thoughts of harming yourselfno Have you had any thoughts of harming anyone elseno (2) Adult Nutrition Screen: Have you recently lost weight without tryingno Have you been eating poorly because of a decreased appetiteno Malnutrition Screening Tool Score0 Malnutrition Screening Tool RiskMST = 0 or 1 Not at risk. Eating well with little or no weight loss Nutrition Consult needed this visitno Can Patient Participate in Room Serviceyes Patient requires Paper Dishes/Plastic Utensilsno Pain Screen: Pain Scalenumerical 0-10 Pain Scale Educationteaching provided Current Pain Level4 = Moderate Acceptable Pain Level0 = None Expression of Pain (nonverbal)verbalization Chronic Painno Spiritual Screen: Are there any cultural, spiritual, protestant practices/values/needs that are important for us to knowno Do you want a visit/item from [facility] Would you like your Charter Coach Driver/Mail Carrier And Clerk notifiedno CAGE: Is this an injured patient at a Trauma Center ([facility]/[place]): no (1) Vaccinations: Vaccination - Influenza Vaccination Screen: Is it flu season (between and September 29)Yes Screening for identified contraindications to influenza vaccinationpatient already received vaccine this season Vaccination - Pneumonia Vaccination Screen: Patient has received a previous pneumonia vaccine:yes Martin: Skin - Martin Scale: Martin: Sensory Perception (response to environment)(4) no impairment Martin: Moisture (degree skin exposed to moisture)(4) rarely moist Martin: Activity (ability to walk)(4) walks frequently Martin: Mobility (amount/control of body movement)(4) no limitation Martin: Nutrition (quality of food intake)(3) adequate Martin: Friction and Shear(3) no apparent problem Martin: Score22 Significant Indicatiors: Significant Indicators: Complete Pressure Injury: Pressure Injury Present on Admissionno Electronic Signatures: Stephanie Valente (RN) (Signed 27-Mar-2019 00:09) Authored: Admission Risk Screens, Vaccinations, Martin, Pressure Injury Last Updated: 27-Mar-2019 00:09 by Stephanie Valente (RN) References: 1. Data Referenced From Risk Screen - Adult Emergency" 26-Mar-2019 23:47 2. Data Referenced From "Triage - ED" 26-Mar-2019 21:37 Normal [facility] BASIC METABOLIC PANELon 10- Anion gap [Moles/Vol] 14 mmol/L Normal 10 - 20 [facility] Comment on above: Performed By: #### B MP ####[facility] [place] [address] Calcium [Mass/Vol] 9.0 mg/dL Normal 8.6 - 10.3 [facility] Comment on above: Performed By: #### B MP ####[facility] [place] [address] Chloride [Moles/Vol] 104 mmol/L Normal 98 - 107 [facility] Comment on above: Performed By: #### B MP ####[facility] [place] [address] Creatinine [Mass/Vol] 0.76 mg/dL Normal 0.50 - 1.30 [facility] Comment on above: Performed By: #### B MP ####[address] [address] GFR- AM. >60 Normal >60 [facility] Comment on above: Result Comment: CALC ULATIONS OF ESTIMATED GFR ARE PERFORMED USING THE MDRD STUDY EQUATION FOR THE IDMS-TRACEABLE CREATININE METHODS. CLIN CHEM 2007;53:766-72 Performed By: #### B MP ####[address] [address] GFR-NON AM. >60 Normal >60 [facility] Comment on above: Performed By: #### B MP ####[address] [address] Glucose [Mass/Vol] 100 mg/dL High 74 - 99 [facility] Comment on above: Performed By: #### B MP ####[address] [address] HCO3 (Bld) [Moles/Vol] 24 mmol/L Normal 21 - 32 [facility] Comment on above: Performed By: #### B MP ####[address] [address] Potassium [Moles/Vol] 4.2 mmol/L Normal 3.5 - 5.3 [facility] Comment on above: Performed By: #### B MP ####[address] [address] Sodium [Moles/Vol] 138 mmol/L Normal 136 - 145 [facility] Comment on above: Performed By: #### B MP ####[address] [address] Urea nitrogen [Mass/Vol] 10 mg/dL Normal 6 - 23 [facility] Comment on above: Performed By: #### B MP ####[address] [address] BNPon 03-27-2019 Natriuretic peptide B (Bld) [Mass/Vol] 20 pg/mL Normal 0 - 99 [facility] Comment on above: Result Comment: . <1 00 pg/mL - Heart failure unlikely 100-299 pg/mL - Intermediate probability of acute heart . failure exacerbation. Correlate with clinical . context and patient history. >=300 pg/mL - Heart Failure likely. Correlate with clinical . context and patient history. BNP testing is performed using different testing methodology at [facility] than at other [facility]. Direct result comparisons should only be made within the same method. Performed By: #### B NP2 ####[address] [address] CBCon 03-27-2019 Erythrocyte distribution width (RBC) [Ratio] 14.5 % Normal 11.5 - 14.5 [facility] Comment on above: Performed By: #### C BC ####[address] [address] Hematocrit (Bld) [Volume fraction] 35.4 % Low 41.0 - 52.0 [facility] Comment on above: Performed By: #### C BC ####[address] [address] Hemoglobin (Bld) [Mass/Vol] 10.3 g/dL Low 13.5 - 17.5 [facility] Comment on above: Performed By: #### C BC ####[address] [address] MCHC (RBC) [Mass/Vol] 29.1 g/dL Low 32.0 - 36.0 [facility] Comment on above: Performed By: #### C BC ####[address] [address] MCV (RBC) [Entitic vol] 93 fL Normal 80 - 100 [facility] Comment on above: Performed By: #### C BC ####[address] [address] Nucleated RBC/100 WBC (Bld) [Ratio] 0.0 /100 WBC Normal 0.0 - 0.0 [facility] Comment on above: Performed By: #### C BC ####[address] [address] Platelets (Bld) [#/Vol] 255 10*3/uL Normal 150 - 450 [facility] Comment on above: Performed By: #### C BC ####[address] [address] RBC (Bld) [#/Vol] 3.81 x10E12/L Low 4.50 - 5.90 [facility] Comment on above: Performed By: #### C BC ####[address] [address] WBC (Bld) [#/Vol] 9.2 10*3/uL Normal 4.4 - 11.3 [facility] Comment on above: Performed By: #### C BC ####[address] [address] COMPREHENSIVE PANELon 2018 Albumin [Mass/Vol] 4.1 g/dL Normal 3.4 - 5.0 [facility] Comment on above: Performed By: #### C MP ####[address] [address] ALP [Catalytic activity/Vol] 135 U/L High 33 - 120 [facility] Comment on above: Performed By: #### C MP ####[address] [address] ALT [Catalytic activity/Vol] 8 U/L Low 10 - 52 [facility] Comment on above: Result Comment: Susan ents treated with Sulfasalazine may generate falsely decreased results for ALT. Performed By: #### C MP ####[address] [address] Anion gap [Moles/Vol] 12 mmol/L Normal 10 - 20 [facility] Comment on above: Performed By: #### C MP ####[address] [address] AST [Catalytic activity/Vol] 19 U/L Normal 9 - 39 [facility] Comment on above: Result Comment: MILD HEMOLYSIS DETECTED. The result may be falsely elevated due to hemolysis or other interferents. Clinical correlation is recommended. Repeat testing may be considered. Performed By: #### C MP ####[address] [address] Bilirubin [Mass/Vol] 0.5 mg/dL Normal 0.0 - 1.2 [facility] Comment on above: Performed By: #### C MP ####[address] [address] Calcium [Mass/Vol] 8.8 mg/dL Normal 8.6 - 10.3 [facility] Comment on above: Performed By: #### C MP ####[address] [address] Chloride [Moles/Vol] 103 mmol/L Normal 98 - 107 [facility] Comment on above: Performed By: #### C MP ####[address] [address] Creatinine [Mass/Vol] 0.77 mg/dL Normal 0.50 - 1.30 [facility] Comment on above: Performed By: #### C MP ####[address] [address] GFR- AM. >60 Normal >60 [facility] Comment on above: Result Comment: CALC ULATIONS OF ESTIMATED GFR ARE PERFORMED USING THE MDRD STUDY EQUATION FOR THE IDMS-TRACEABLE CREATININE METHODS. CLIN CHEM 2007;53:766-72 Performed By: #### C MP ####[address] [address] GFR-NON AM. >60 Normal >60 [facility] Comment on above: Performed By: #### C MP ####[address] [address] Glucose [Mass/Vol] 100 mg/dL High 74 - 99 [facility] Comment on above: Performed By: #### C MP ####[address] [address] HCO3 (Bld) [Moles/Vol] 24 mmol/L Normal 21 - 32 [facility] Comment on above: Performed By: #### C MP ####[address] [address] Potassium [Moles/Vol] 4.9 mmol/L Normal 3.5 - 5.3 [facility] Comment on above: Result Comment: MILD HEMOLYSIS DETECTED. The result may be falsely elevated due to hemolysis or other interferents. Clinical correlation is recommended. Repeat testing may be considered. Performed By: #### C MP ####[address] [place] [address] Protein [Mass/Vol] 7.5 g/dL Normal 6.4 - 8.2 [facility] Comment on above: Performed By: #### C MP ####[facility] [place] [address] Sodium [Moles/Vol] 134 mmol/L Low 136 - 145 [facility] Comment on above: Performed By: #### C MP ####[facility] [place] [address] Urea nitrogen [Mass/Vol] 9 mg/dL Normal 6 - 23 [facility] Comment on above: Performed By: #### C MP ####[facility] [place] [address] LUMBAR WO CONTRASTon 03-03 CT LUMBAR WO CONTRAST CT LUMBAR SPINE WI THOUT IV CONTRAST CLINICAL STATEMENT: TRAUMA. TECHNOLOGIST NOTES: WHAT SYMPTOMS ARE YOU EXPERIENCING? - LEFT LEG PAIN, BACK PAIN TECHNIQUE: Multiple-row detector helical CT examination of the lumbar spine without IV contrast. Axial, sagittal, and coronal reconstructed images. This exam was performed according to our departmental dose optimization program, and includes the following measures where applicable: automated exposure control, adjustment of the mAs and/or kVp according to patient size and/or exam, and an iterative reconstruction algorithm. COMPARISON: None. FINDINGS: There is no evidence of acute fracture or subluxation. There is a slight left convex curvature of the lumbar spine.. Vertebral body heights are maintained. No aggressive osseous lesions are identified. There is multilevel degenerative disc disease and vacuum disc phenomenon. There is also bilateral facet arthropathy. There are L4 laminectomies. There is no significant abnormality visible within the spinal canal. The paraspinal soft tissues and retroperitoneal structures demonstrate no acute abnormality. There is a left hip arthroplasty. IMPRESSION No acute compression deformity or malalignment. Diffuse degenerative spondylosis. There is multilevel degenerative disc disease and vacuum disc phenomenon. There is also bilateral facet arthropathy. Electronically signed by: Hitesh Mario MD 03/27/2019 8:22 PM CDT Technologist: BUCK OCHOA Dictated By: HITESH MARIO MD Signed By: HITESH MARIO MD Signed Out: 03/27/19 21:22:48 Normal [facility] Consult-Cardiologyon 019 Consult-Cardiology Service: Service: Cardiology Consult: Reason: Chest pain History of Present Illness: HPI: NATALIE GERBER is a 59 year old Male admitted with chest pain which developed while riding on his scooter at the store. He is currently not interested in talking to me at all about the symptoms he presented with actually. He is extermely irate about the fact that he has not received his usual Adderall or Ritalin for rx of his ADD. He states he has to take his medication in a timely manner. Objectively, his presenting ECG did not show any acute ST-T changes. Troponin was negative. He has no h/o CAD. In fact, he has had 3 normal cardiac catheterizations. Most recently, in early November of this year, he was admitted at [facility] and underwent a cath with Dr. Ferrer which again showed normal coronary arteries. His PMH is significant for HTN, HLD, CVA in 2016, PE in 1998, hypothyroidism, chronic back pain, anemia, and ADD. Past Medical/Surgical History: Medical History: Benign essential hypertension: Stroke: Diverticulitis: Anemia: Pulmonary embolism: Surg History: H/O spinal fusion: Status post bilateral hernia repair: S/P right knee arthroscopy: History of total left hip arthroplasty: History of cholecystectomy: Review Family/Social History and ROS: Constitutional: NEGATIVE: Fever, Chills, Weight Loss Eyes: NEGATIVE: Blurry Vision, Diploplia ENMT: NEGATIVE: Nasal Congestion Respiratory: NEGATIVE: Productive Cough, Hemoptysis, Wheezing Cardiac: NEGATIVE: Orthopnea, Syncope Gastrointestinal: NEGATIVE: Nausea, Vomiting, Diarrhea Musculoskeletal: NEGATIVE: Swelling, Weakness Hematologic/Lymph: NEGATIVE: Bruising, Easy Bleeding Allergies: Nubain: Anxiety, Hives/Urticaria Toradol IV/IM: Hives/Urticaria Fish: Hives/Urticaria Objective: Objective Information: T PRBPSpO2 [id number]/5496% Date/Time03/27 4: 4: 4: 4: 4:00 Range(36.5C - 36.9C ) (69 - 87 ) (16 - 20 ) (116 - 153 )/ (54 - 74 ) (95% - 97% ) Highest temp of 36.9 C was recorded at 03/26 21:00 Physical Exam: Constitutional: Well developed, awake/alert/oriented x3, agitated, upset Eyes: PERRL, EOMI, clear sclera ENMT: mucous membranes moist, no apparent injury, no lesions seen Head/Neck: Neck supple, no apparent injury, thyroid without mass or tenderness, No JVD, trachea midline, no bruits Respiratory/Thorax: Patent airways, CTAB, normal breath sounds with good chest expansion, thorax symmetric Cardiovascular: Regular, rate and rhythm, no murmurs, normal S 1and S 2 Gastrointestinal: Nondistended, soft, non-tender, no rebound tenderness or guarding, no masses palpable, no organomegaly, +BS, no bruits Extremities: no cyanosis edema, contusions or wounds, no clubbing Skin: Warm and dry, no lesions, no rashes Medications: Medications: ALTERNATIVE MEDICINES: 1. Melatonin: 5 mg Oral At Bedtime PRN CARDIOVASCULAR AGENTS: 1. Lisinopril: 10 mg Oral Daily 2. Carvedilol: 6.25 mg Oral 2 Times a Day 3. Furosemide: 20 mg Oral Daily CENTRAL NERVOUS SYSTEM AGENTS: 1. Acetaminophen: 650 mg Oral Every 4 Hours PRN 2. Aspirin Enteric Coated: 81 mg Oral Daily 3. oxyCODONE Immediate Release: 5 mg Oral Every 6 Hours PRN 4. traMADol: 50 mg Oral Every 6 Hours PRN 5. Ondansetron Injectable: 4 mg IntraVenous Push Every 6 Hours PRN 6. Methylphenidate: 20 mg Oral 2 Times a Day COAGULATION MODIFIERS: 1. Heparin SubCutaneous: 7500 unit(s) SubCutaneous Every 8 Hours 2. Clopidogrel: 75 mg Oral Daily GASTROINTESTINAL AGENTS: 1. Pantoprazole: 40 mg Oral 2 Times a Day HORMONES/HORMONE MODIFIERS: 1. Levothyroxine: 25 microgram(s) Oral Daily METABOLIC AGENTS: 1. Simvastatin: 40 mg Oral At Bedtime PSYCHOTHERAPEUTIC AGENTS: 1. Citalopram (CELEXA): 20 mg Oral Daily 2. QUEtiapine: 100 mg Oral At Bedtime Recent Lab Results: Results: I have reviewed these laboratory results: Troponin I, Serum Trending View [id number] 04:45:00 27-Mar-2019 01:25:00 26-Mar-2019 21:33:00 Troponin I, Serum<0.02 <0.02 <0.02 Complete Blood Count + Differential 26-Mar-2019 21:33:00 ResultValue White Blood Cell Count 11.3 Nucleated Erythrocyte Count 0.0 Red Blood Cell Count 4.02 L HGB 10.9 L HCT 36.4 L MCV 91 MCHC 29.9 L PLT 294 RDW-CV 14.4 Neutrophil % 75.9 Immature Granulocytes % 0.6 Lymphocyte % 17.4 Monocyte % 3.9 Eosinophil % 1.8 Basophil % 0.4 Neutrophil Count 8.58 H Lymphocyte Count 1.97 Monocyte Count 0.44 Eosinophil Count 0.20 Basophil Count 0.04 Comprehensive Metabolic Panel 26-Mar-2019 21:33:00 ResultValue Glucose, Serum 100 H NA 134 L K 4.9 CL 103 Bicarbonate, Serum 24 Anion Gap, Serum 12 BUN 9 CREAT 0.77 GFR-Non >60 GFR- >60 Calcium, Serum 8.8 ALB 4.1 ALKP 135 H T Pro 7.5 T Bili 0.5 Alanine Aminotransferase, Serum 8 L Aspartate Transaminase, Serum 19 Brain Natriuretic Peptide 26-Mar-2019 00:28:00 ResultValue Brain Natriuretic Peptide 20 Radiology Results: Results: 59 year old male admitted with chest pain which is atypical for angina. He has multiple cardiac risk factors but has had 3 cardiac catheterizations in the past, including November 2018 with normal coronaries. His cardiac w/u here is negative, including normal troponins x 3. At present, the patient is very upset about the fact that he is not receiving his Adderall since being in the hospital and that is his primary concern and will be passed on to the primary team. Certainly from my standpoint it would be ok for him to resume it. No further cardiac w/u planned at this time. Electronic Signatures: Zee Ayala) (Signed 27-Mar-2019 09:33) Authored: Service, History of Present Illness, Past Medical/Surgical History, Review Family/Social History and ROS, Allergies, Objective, Signature/Cosignature/Attest ation Last Updated: 27-Mar-2019 09:33 by Zee Ayala) Normal [facility] Discharge [id number] 10-26-2 019 Discharge Profile2 Discharge Orders: Anticipated Discharge Date: Anticipated Discharge [id number] Problem List: Additional Dx: Chest pain: Catalog Name: Chest pain, unspecified Chest pain: Catalog Name: Chest pain, unspecified Stroke-like episode: Catalog Name: Cerebral infarction, unspecified History of cholecystectomy: Catalog Name: Acquired absence of other specified parts of digestive tract Status post bilateral hernia repair: Catalog Name: Status post ventricular assist device History of total left hip replacement: Catalog Name: Presence of left artificial hip joint H/O spinal fusion: Catalog Name: Arthrodesis status Potential for self care deficit: Catalog Name: Other specified personal risk factors, not elsewhere classified Morbid obesity with BMI of 50.0-59.9, adult: Catalog Name: Morbid (severe) obesity due to excess calories Chest pain: Catalog Name: Chest pain Medical History: Benign essential hypertension: Catalog Name: Essential (primary) hypertension Stroke: Catalog Name: Cerebral infarction, unspecified Coronary artery disease: Catalog Name: Atherosclerotic heart disease of [place] coronary artery without angina pectoris Diverticulitis: Catalog Name: Diverticulitis of intestine, part unspecified, without perforation or abscess without bleeding Anemia: Catalog Name: Anemia, unspecified Pulmonary embolism: Catalog Name: Other pulmonary embolism without acute cor pulmonale Surg History: H/O spinal fusion: Catalog Name: Arthrodesis status Status post bilateral hernia repair: Catalog Name: Status post ventricular assist device S/P right knee arthroscopy: Catalog Name: Status post ventricular assist device History of total left hip arthroplasty: Catalog Name: Presence of left artificial hip joint History of cholecystectomy: Catalog Name: Acquired absence of other specified parts of digestive tract Prelim Disch Dx: Abnormal sensation of upper extremity: Catalog Name: Unspecified disturbances of skin sensation Abnormal sensation of lower extremity: Catalog Name: Unspecified disturbances of skin sensation Chest pain: Catalog Name: Chest pain, unspecified Stroke: Catalog Name: Cerebral infarction, unspecified Depression: Catalog Name: Major depressive disorder, single episode, unspecified Chronic back pain: Catalog Name: Dorsalgia, unspecified Hypertension: Catalog Name: Essential (primary) hypertension Atypical chest pain: Catalog Name: Atypical chest pain Chest pain: Catalog Name: Chest pain Syncope (disorder): Catalog Name: Syncope Chronic: Cellulitis of leg: Catalog Name: Cellulitis of leg Other Dx/Proc: Stroke: Catalog Name: Stroke, Description: Stroke Abdominal pain: Catalog Name: Abdominal pain, Description: Abdominal pain Left heart catheterization: Catalog Name: Left heart catheterization, Description: Left heart catheterization Unstable angina/chest pain: Catalog Name: Unstable angina/chest pain, Description: Unstable angina/chest pain Chest pain: Catalog Name: Chest pain, Description: Chest pain Heart Failure: Patient Instructions: - CALL 911 IF YOU HAVE ANY OF THE SIGNS AND SYMPTOMS OF HEART FAILURE: 1. Chest pain 2. Significant Shortness of breath 3. Fainting. - Notify your physician immediately if you have shortness of breath; weight gain of 3 lbs. or more; fatigue and loss of energy; swelling of lower extremities or abdomen; dizziness or fainting; change of appetite; and frequent coughing. - Patient received Living With Heart Failure book. - Daily weight on the same scale, same time after voiding and before eating. - Maintain daily weight log. Activity: - Balance activity with rest, gradually increase your activity as tolerated. - Exercise as prescribed by your physician. LVEF % at Discharge: Left Ventricular Ejection Fraction %[id number] Heart Failure Appointment: Follow up phone call will be placed to patient on: 27-Mar-2019 (Call must be placed within 72 hours of discharge). Provider follow up with on: 27-Mar-2019. Provider FINAL REVIEW of Orders: Final Review: Final Review of Medication Reconciliation and Orders Completedby Physician Reviewing ProviderThomas MD Alexandro at 27-Mar-2019 12:38:45 Electronic Signatures: Chuy Mc) (Signed 27-Mar-2019 12:38) Authored: Discharge Orders, Heart Failure, Provider FINAL REVIEW of Orders, Gold Form - Data Center Architect Summary Last Updated: 27-Mar-2019 12:38 by Chuy Mc) Normal [facility] EMR ADDONon 03-27-2019 ADDON CONFIRMATION REQUEST REC'D Normal [facility] Comment on above: Performed By: #### E MRAD ####[facility] [place] [address] HEMOGLOBIN A1Con 03-27-2019 HbA1c (d) [Mass fraction] 6.1 % Normal [facility] Comment on above: Result Comment: Diag nosis of Diabetes-Adults Non-Diabetic: < or = 5.6% Increased risk for developing diabetes: 5.7-6.4% Diagnostic of diabetes: > or = 6.5% . Monitoring of Diabetes Age (y) Therapeutic Goal (%) Adults: >18 <7.0 Pediatrics: 13-18 <7.5 7-12 <8.0 0- 6 7.5-8.5 [place] [employer]. Diabetes Care 33(S1), Jun 2009. Performed By: #### H BA1E ####[facility] [place] [address] HbA1c (Bld) [Mass fraction] 128 MG/DL Normal [facility] Comment on above: Performed By: #### H BA1E ####[facility] [place] [address] History and Physicalon 03-27 History and Physical History of Present Illness: HPI: NATALIE Botello is a 59 year old Male with PMH of HTN, HLD, multiple Cardiac Caths (most recent 12/01/18 without stenosis), CHF (EF 60-65%), PE (1998), CVA (2016), anemia, chronic back pain, depression, hypothyroidism, ADHD, and GERD who presented with chest pain. The pain started on Friday afternoon when he was on a scooter at [facility]. His chest pain was 8/10 and improved to 5.5/10 after 3 NTG. The pain radiates down his left arm and he feels like spiders are crawling down his left arm. The chest pain was associated with nausea and diaphoresis. He also complains of SOB with b/l leg swelling for the last 2 days. He states he has had a prior [place] before but has never had stenting or open heart surgery. He denies weight gain, fever, and hematuria. A 10 point ROS was performed with the patient denying any complaints at this time aside from those listed in the HPI above. In the ER he was afebrile, HR 87, RR 20, 153/74, and 95% on room air. Hgb 10.9, alk phos 135, Trop < 0.02. CXR showed cardiomegaly with mild pulm venous congestion. EKG showed no acute changes. Comorbidities: Comorbid Conditionshypertension Allergies: Nubain: Anxiety, Hives/Urticaria Toradol IV/IM: Hives/Urticaria Fish: Hives/Urticaria Medications Prior to Admission: aspirin 81 mg oral delayed release tablet: 1 tab(s) orally once a day Lasix 20 mg oral tablet: 1 tab(s) orally once a day Plavix 75 mg oral tablet: 1 tab(s) orally once a day nitroglycerin: 0.4 milligram(s) sublingual every 5 minutes, As Needed Seroquel 100 mg oral tablet: 1 tab(s) orally once a day (at bedtime) Nexium 40 mg oral delayed release capsule: 1 cap(s) orally 2 times a day Celexa 20 mg oral tablet: 1 tab(s) orally once a day lisinopril 10 mg oral tablet: 1 tab(s) orally once a day carvedilol 6.25 mg oral tablet: 1 tab(s) orally once a day simvastatin 40 mg oral tablet: 1 tab(s) orally once (at bedtime) levothyroxine 25 mcg (0.025 mg) oral tablet: 1 tab(s) orally once a day Adderall 20 mg oral tablet: 1 tab(s) orally 2 times a day oxyCODONE 5 mg oral tablet: 1 tab(s) orally every 4 hours, As needed, Pain - Severe (7-10) traMADol 50 mg oral tablet: 2 tab(s) orally every 6 hours, As Needed - Use as Directed 3 times a day (with meals) per Corrective Scale (Mild) - for pain. Objective: Objective Information: T PRBPSpO2 [id number]/6595% Date/Time03/26 21: 22: 22: 22: 22:00 Range(36.9C - 36.9C ) (81 - 87 ) (18 - 20 ) (138 - 153 )/ (65 - 74 ) (95% - 95% ) Highest temp of 36.9 C was recorded at 03/26 21:00 Pain reported at 03/26 21:37: 5 = Moderate Physical Exam: GENERAL: Alert, oriented, and in no distress. Obese HEAD: Normocephalic, atraumatic. EYES: Extraocular muscles intact. ENT: No nasal discharge, mucous membranes moist and pink. NECK: Atraumatic, no meningismus. CARDIOVASCULAR: Chest pain is not reproducible. Regular rate and rhythm, no murmur, gallop or rubs. RESPIRATORY: Lungs are clear with good air exchange in all lung alonso, no wheezes, rales, or rhonchi. ABDOMEN: Soft, nontender, nondistended, no hepatosplenomegaly, no masses, no pulsations. Bowels sounds are normoactive. EXTREMITIES: No peripheral edema, no calf tenderness. SKIN: Warm and dry with no rash or lesions. NEUROLOGICAL: Cranial nerves intact, no gross motor or sensory deficits Medications: Medications: Continuous Medications ---- No continuous medications are active Scheduled Medications ---- 1. Aspirin Enteric Coated: 81 mg Oral Daily 2. Carvedilol: 6.25 mg Oral 2 Times a Day 3. Citalopram (CELEXA): 20 mg Oral Daily 4. Clopidogrel: 75 mg Oral Daily 5. Furosemide: 20 mg Oral Daily 6. Levothyroxine: 25 microgram(s) Oral Daily 7. Lisinopril: 10 mg Oral Daily 8. Methylphenidate: 5 mg Oral 2 Times a Day 9. Pantoprazole: 40 mg Oral 2 Times a Day 10. QUEtiapine: 100 mg Oral At Bedtime 11. Simvastatin: 40 mg Oral At Bedtime PRN Medications ---- 1. oxyCODONE Immediate Release: 5 mg Oral Every 6 Hours 2. traMADol: 50 mg Oral Every 6 Hours Recent Lab Results: Results: I have reviewed these laboratory results: Complete Blood Count + Differential 26-Mar-2019 21:33:00 ResultValue White Blood Cell Count 11.3 Nucleated Erythrocyte Count 0.0 Red Blood Cell Count 4.02 L HGB 10.9 L HCT 36.4 L MCV 91 MCHC 29.9 L PLT 294 RDW-CV 14.4 Neutrophil % 75.9 Immature Granulocytes % 0.6 Lymphocyte % 17.4 Monocyte % 3.9 Eosinophil % 1.8 Basophil % 0.4 Neutrophil Count 8.58 H Lymphocyte Count 1.97 Monocyte Count 0.44 Eosinophil Count 0.20 Basophil Count 0.04 Comprehensive Metabolic Panel 26-Mar-2019 21:33:00 ResultValue Glucose, Serum 100 H NA 134 L K 4.9 CL 103 Bicarbonate, Serum 24 Anion Gap, Serum 12 BUN 9 CREAT 0.77 GFR-Non >60 GFR- >60 Calcium, Serum 8.8 ALB 4.1 ALKP 135 H T Pro 7.5 T Bili 0.5 Alanine Aminotransferase, Serum 8 L Aspartate Transaminase, Serum 19 PT + INR, Plasma 26-Mar-2019 21:33:00 ResultValue Prothrombin Time, Plasma 11.2 International Normalized Ratio, Plasma 1.0 Troponin I, Serum 26-Mar-2019 21:33:00 ResultValue Troponin I, Serum <0.02 Brain Natriuretic Peptide 26-Mar-2019 00:28:00 ResultValue Brain Natriuretic Peptide 20 Radiology Results: Results: Impression: Cardiomegaly with mild pulmonary venous congestion Xray Chest 2 View PA + Lateral [Mar 26 2019 9:57PM] Assessment and Plan: Assessment: NATALIE Botello is a 59 year old Male with PMH of HTN, HLD, multiple Cardiac Caths (most recent 12/01/18 without stenosis), CHF (EF 60-65%), PE (1998), CVA (2016), anemia, chronic back pain, depression, hypothyroidism, ADHD, and GERD who was admitted for chest pain. Cardio on consult. #Chest pain, R/O ACS #Diastolic CHF exacerbation #HLD #HTN #Prior CVA -Unlikely to represent ACS with negative cardiac cath on 12/01/18 -Cardio on consult, pt requesting Dr. Ferrer who did his last cath -Trops and EKG trended -CXR showed cardiomegaly with mild pulm venous congestion -Last ECHO 02/25/18 EF 60-65% -BNP normal -Lipids 02/25/18 TG 266, TC 131, LDL 50.9, HDL 27.1 -Hemoglobin A1C ordered -Resuming home Aspirin, Plavix, Coreg, Lisinopril 10, Zocor 40, Lasix 20 QD -Unsure why pt is on both aspirin and plavix, likely related to TIA and CVA -NPO after midnight #Hypothyroidism -Resuming home Synthroid 25 mcg #Depression/Anxiety -Resuming home Seroquel, Celexa #Anemia -2013 workup suggested iron deficiency anemia #GERD -Resuming home PPI #Chronic back pain #H/O malingering -Resuming home Ultram and Oxy #ADHD -Pt requesting Ritalin since we don't carry adderall #DVT prophylaxis -Heparin SQ Signatures/Attestation/Certi fication: Note Completion: Attending AttestationI saw and evaluated the patient. I personally obtained the rubin and critical portions of the history and physical exam or was physically present for rubin and critical portions performed by the resident/fellow. I reviewed the resident/fellows documentation and discussed the patient with the resident/fellow. I agree with the resident/fellows medical decision making as documented in the note. I personally evaluated the patient [id number] Comments/ Additional Findings Patient fully evaluated with resident team. Agree with resident note. Attending Provider Inpatient Certification StatementI certify this patients need for inpatient care based on the above documentation including; the order to admit as inpatient, the anticipated length of stay, diagnosis, problem list and plan of care, and discharge plan. Electronic Signatures: Dashawn Fierro (DO (Resident)) (Signed 27-Mar-2019 01:21) Authored: History of Present Illness, Comorbidities, Allergies, Medications Prior to Admission, Objective, Assessment and Plan, Signatures/Attestation/Certi fication Chuy Mc) (Signed 27-Mar-2019 12:17) Authored: Signatures/Attestation/Certi fication Co-Signer: History of Present Illness, Comorbidities, Allergies, Medications Prior to Admission, Objective, Assessment and Plan, Signatures/Attestation/Certi fication Last Updated: 27-Mar-2019 12:17 by Chuy Mc) Normal [facility] PT/INRon 03-27-2019 INR Coag (PPP) [Relative time] 1.0 {INR} Normal 0.9 - 1.1 [facility] Comment on above: Performed By: #### P TINR #### [facility] [address] [place] [address] PT Coag (PPP) [Time] 11.2 s Normal 9.7 - 12.7 [facility] Comment on above: Performed By: #### P TINR #### [facility] [address] [place] [address] Patient Profile - Adult v2on 03-27-2019 Patient Profile - Adult v2 Profile: Initial Info: How to be AddressedGucho(1) Spoken Language PreferredEnglish (2) Are you currently using the Personal Electronic Health Record or Pie DigitalNanigansno (1) Are you interested in learning more about [facility] for the management of your healthdeclined Stated Reason for Admissionchest pain Wants Family/Rep Notified of Admissionno Notify PCPdo not notify PCP Informed of Patient Visiting Rightsyes [facility] Patient Belongingsremains with patient Patient Belongings Remaining with Patientclothing; medication(s); antunez/credit card; vision aids Medications Brought to Hospitalyes Medication Dispositionbedside General Health: Weight in kg141.8 kilogram(s) Weight in zek127.7 pound(s) Height in feet5 feet Height in inches0.5 inch(es) Height in cm153.6 centimeter(s) BMI (kg/m2)60.102 square meter Weight Methodactual (measured) Scale Typestanding Height Methodstated Equipment Currently Used at [place], quad/straight RSP Based Care: How would you like to participate in your mick/a What is the number one concern for you during this hospitalizationchest pain relief What is the most important thing we can do to support you during this hospitalizationn/a Is there anything we need to know to best care for youno Substance: Current or Former Substance Use never: Cigarette/Tobacco(1), e-Cigarette/Vaping(1), Alcohol(1), Street Drugs(1) Health Mgmt: Symptoms/Conditions Managed at [place] Relationship/Environ: Primary Source of Support/Comfortfriend Lives Withalone Living Arrangementsapartment Resource/Environmental Concernsnone Anticipated Transition [place] Services Anticipated at Transitionnone Significant IndicatorsComplete Information Review: Allergies, Home Meds and Significant Events have been Reviewed and Verified with Patient/Familyyes ALLERGY, INTOLERANCE, ADVERSE EVENT: Allergies: Nubain: Drug, Anxiety, Hives/Urticaria, Active Toradol IV/IM: Drug, Hives/Urticaria, Active Fish: Food, Hives/Urticaria, Active Electronic Signatures: Stephanie Valente (GABO) (Signed 27-Mar-2019 00:15) Authored: Profile, Additional Information Last Updated: 27-Mar-2019 00:15 by Stephanie Valente (GABO) References: 1. Data Referenced From Patient Profile - Adult v2 13-Dec-2018 03:09 2. Data Referenced From "Triage - ED" 26-Mar-2019 21:37 Normal [facility] Risk Screen - Adult Emergenc yon 03-27-2019 Risk Screen - Adult Emergency Preferred Language: Preferred Language: Preferred Language for Discussing Health Care (patient/designee)[place] Advanced Directives: Advance Directive/DNRno Family Violence Adult: Abuse Screen: Are you or have you been threatened or abused physically, emotionally, or sexually by anyoneno Learning Assessment (Patient): Learning Assessment (Patient): Patient is Able to be Assessed for Learningyes Factors Influencing Readiness to Learnpain Factors that Impact Ability to Learnnone Devices/Methods Used to Communicatenone Learning Preferencesverbal instruction Cultural Considerationsnone Developmental Considerationsnone Jehovah'S Witness Considerationsnone Learning Assessment (Other Learner): Learning Assessment (Other Learner): Other learner availableno Pressure Injury/TB/Substance: Pressure Injury: Do you have a coughno Admission Risk Screen: Significant IndicatorsComplete CAGE: CAGE: Is this an injured patient at a Trauma Center ([facility]/[place]): no Electronic Signatures: Kevin Patton (GABO) (Signed 26-Mar-2019 23:50) Authored: Preferred Language, Advanced Directives, Family Violence Adult, Learning Assessment (Patient), Learning Assessment (Other Learner), Pressure Injury/TB/Substance, CAGE Last Updated: 26-Mar-2019 23:50 by Kevin Patton (GABO) Normal [facility] TROPONIN Ion 03-27-2019 Troponin I.cardiac [Mass/Vol] ng/mL Normal 0.00 - 0.03 [facility] Comment on above: Result Comment: LESS THAN 0.04 NG/ML: NEGATIVE REPEAT TESTING IN THREE TO SIX HOURS IF CLINICALLY INDICATED. 0.04 - 0.5 NG/ML: CONSISTENT WITH POSSIBLE CARDIAC DAMAGE AND POSSIBLE INCREASED CLINICAL RISK. SERIAL MEASUREMENTS MAY HELP ASSESS EXTENT OF MYOCARDIAL DAMAGE. >0.5 NG/ML: CONSISTENT WITH CARDIAC DAMAGE, INCREASED CLINICAL RISK AND MYOCARDIAL INFARCTION. SERIAL MEASUREMENTS MAY HELP ASSESS EXTENT OF MYOCARDIAL DAMAGE. . Note: Troponin I testing is performed using different testing methodology at [facility] than at other [facility]. Direct result comparisons should only be made within the same method. Performed By: #### T ROP2 ####[facility] [place] [address] Troponin I.cardiac [Mass/Vol] ng/mL Normal 0.00 - 0.03 [facility] Comment on above: Result Comment: LESS THAN 0.04 NG/ML: NEGATIVE REPEAT TESTING IN THREE TO SIX HOURS IF CLINICALLY INDICATED. 0.04 - 0.5 NG/ML: CONSISTENT WITH POSSIBLE CARDIAC DAMAGE AND POSSIBLE INCREASED CLINICAL RISK. SERIAL MEASUREMENTS MAY HELP ASSESS EXTENT OF MYOCARDIAL DAMAGE. >0.5 NG/ML: CONSISTENT WITH CARDIAC DAMAGE, INCREASED CLINICAL RISK AND MYOCARDIAL INFARCTION. SERIAL MEASUREMENTS MAY HELP ASSESS EXTENT OF MYOCARDIAL DAMAGE. . Note: Troponin I testing is performed using different testing methodology at [facility] than at other [facility]. Direct result comparisons should only be made within the same method. Performed By: #### T ROP2 ####[facility] [place] [id number] Troponin I.cardiac [Mass/Vol] Canceled Normal [facility] Comment on above: Order Comment: TEST TROPONIN I WAS CANCELLED, 03/26/2019 00:04 ?Cancel Reason: Cancelled. Result Comment: LESS THAN 0.04 NG/ML: NEGATIVE REPEAT TESTING IN THREE TO SIX HOURS IF CLINICALLY INDICATED. 0.04 - 0.5 NG/ML: CONSISTENT WITH POSSIBLE CARDIAC DAMAGE AND POSSIBLE INCREASED CLINICAL RISK. SERIAL MEASUREMENTS MAY HELP ASSESS EXTENT OF MYOCARDIAL DAMAGE. >0.5 NG/ML: CONSISTENT WITH CARDIAC DAMAGE, INCREASED CLINICAL RISK AND MYOCARDIAL INFARCTION. SERIAL MEASUREMENTS MAY HELP ASSESS EXTENT OF MYOCARDIAL DAMAGE. . Note: Troponin I testing is performed using different testing methodology at [facility] than at other [facility]. Direct result comparisons should only be made within the same method. Performed By: #### T ROP2 ####[facility] [place] [address] Order Comment: TEST TROPONIN I WAS CANCELLED, 03/26/2019 03:04 ?Cancel Reason: Cancelled. Troponin I.cardiac [Mass/Vol] ng/mL Normal 0.00 - 0.03 [facility] Comment on above: Result Comment: LESS THAN 0.04 NG/ML: NEGATIVE REPEAT TESTING IN THREE TO SIX HOURS IF CLINICALLY INDICATED. 0.04 - 0.5 NG/ML: CONSISTENT WITH POSSIBLE CARDIAC DAMAGE AND POSSIBLE INCREASED CLINICAL RISK. SERIAL MEASUREMENTS MAY HELP ASSESS EXTENT OF MYOCARDIAL DAMAGE. >0.5 NG/ML: CONSISTENT WITH CARDIAC DAMAGE, INCREASED CLINICAL RISK AND MYOCARDIAL INFARCTION. SERIAL MEASUREMENTS MAY HELP ASSESS EXTENT OF MYOCARDIAL DAMAGE. . Note: Troponin I testing is performed using different testing methodology at [facility] than at other [facility]. Direct result comparisons should only be made within the same method. Performed By: #### T ROP2 ####[address] [place] [address] URINALYSISon 03-27-2019 Appearance (U) CLEAR Normal CLEAR [facility] Comment on above: Performed By: #### U A ####[address] [place] [address] Bilirubin (U) [Mass/Vol] Negative Normal NEGATIVE [facility] Comment on above: Performed By: #### U A ####[address] [place] [address] BLOOD Negative Normal NEGATIVE [facility] Comment on above: Performed By: #### U A ####[address] [place] [address] Color (U) YELLOW Normal STRAW,YELL OW [facility] Comment on above: Performed By: #### U A ####[address] [place] [address] Glucose [Mass/Vol] Negative Normal NEGATIVE [facility] Comment on above: Performed By: #### U A ####[address] [place] [address] Ketones Ql (U) Negative Normal NEGATIVE [facility] Comment on above: Performed By: #### U A ####[address] [place] [address] Leukocyte esterase Test strip Ql (U) Negative Normal NEGATIVE [facility] Comment on above: Performed By: #### U A ####[address] [place] [address] Nitrite Ql (U) Negative Normal NEGATIVE [facility] Comment on above: Performed By: #### U A ####[address] [place] [address] pH (Bld) 5.0 Normal 5.0 - 8.0 [facility] Comment on above: Performed By: #### U A ####[address] [place] [address] Protein (U) [Mass/Vol] Negative Normal NEGATIVE [facility] Comment on above: Performed By: #### U A ####[facility] [place] [address] Specific gravity (U) [Rel density] 1.017 Normal 1.005 - 1.035 [facility] Comment on above: Performed By: #### U A ####[facility] [place] [address] Urobilinogen Qn (U) <2.0 Normal 0.0 - 1.9 [facility] Comment on above: Performed By: #### U A ####[facility] [place] [address] XR SHOULDER LEFT 2 VIEWSon 1 XR SHOULDER LEFT 2 VIEWS CLINICAL INDICATION: INJURY. Shoulder pain post trauma. TECHNIQUE: 3 view(s) were obtained of the left shoulder. COMPARISON: None. FINDINGS: No acute displaced fracture is identified of the shoulder. Alignment appears anatomic. Osteoarthritis. Surrounding soft tissues are unremarkable. IMPRESSION: No evidence of acute bony injury to the shoulder. Electronically signed by: Dc Hood MD 03/27/2019 8:02 PM CDT Technologist: AM Dictated By: DC HOOD MD Signed By: DC HOOD MD Signed Out: 03/27/19 21:02:55 Normal [facility] CBC AND DIFFERENTIALon 03-26 % AUTOMATED IMMATURE GRAN 0.6 % Normal 0.0 - 0.9 [facility] Comment on above: Result Comment: Perc ent differential counts (%) should be interpreted in the context of the absolute cell counts (cells/L). Performed By: #### C BCDF #### [facility] [address] [place] [address] Basophils (Bld) [#/Vol] 0.04 10*3/uL Normal 0.00 - 0.10 [facility] Comment on above: Performed By: #### C BCDF #### [facility] [address] [place] [address] Basophils/100 WBC (Bld) 0.4 % Normal 0.0 - 2.0 [facility] Comment on above: Performed By: #### C BCDF #### [facility] [address] [place] [address] Eosinophils (Bld) [#/Vol] 0.20 10*3/uL Normal 0.00 - 0.70 [facility] Comment on above: Performed By: #### C BCDF #### [facility] [address] [place] [address] Eosinophils/100 WBC (Bld) 1.8 % Normal 0.0 - 6.0 [facility] Comment on above: Performed By: #### C BCDF #### [address] [place] [address] Erythrocyte distribution width (RBC) [Ratio] 14.4 % Normal 11.5 - 14.5 [facility] Comment on above: Performed By: #### C BCDF #### [address] [place] [address] Hematocrit (Bld) [Volume fraction] 36.4 % Low 41.0 - 52.0 [facility] Comment on above: Performed By: #### C BCDF #### [address] [place] [address] Hemoglobin (Bld) [Mass/Vol] 10.9 g/dL Low 13.5 - 17.5 [facility] Comment on above: Performed By: #### C BCDF #### [address] [place] [address] Lymphocytes (Bld) [#/Vol] 1.97 10*3/uL Normal 1.20 - 4.80 [facility] Comment on above: Performed By: #### C BCDF #### [facility] [address] [place] [address] Lymphocytes/100 WBC (Bld) 17.4 % Normal 13.0 - 44.0 [facility] Comment on above: Performed By: #### C BCDF #### [facility] [address] [place] [address] MCHC (RBC) [Mass/Vol] 29.9 g/dL Low 32.0 - 36.0 [facility] Comment on above: Performed By: #### C BCDF #### [place] [address] [place] [address] MCV (RBC) [Entitic vol] 91 fL Normal 80 - 100 [facility] Comment on above: Performed By: #### C BCDF #### [address] [place] [address] Monocytes (Bld) [#/Vol] 0.44 10*3/uL Normal 0.10 - 1.00 [facility] Comment on above: Performed By: #### C BCDF #### [address] [place] [address] Monocytes/100 WBC (Bld) 3.9 % Normal 2.0 - 10.0 [facility] Comment on above: Performed By: #### C BCDF #### [address] [place] [address] Neutrophils (Bld) [#/Vol] 8.58 10*3/uL High 1.20 - 7.70 [facility] Comment on above: Performed By: #### C BCDF #### [address] [place] [address] Neutrophils/100 WBC (Bld) 75.9 % Normal 40.0 - 80.0 [facility] Comment on above: Performed By: #### C BCDF #### [address] [address] Nucleated RBC/100 WBC (Bld) [Ratio] 0.0 /100 WBC Normal 0.0 - 0.0 [facility] Comment on above: Performed By: #### C BCDF #### [address] [address] Platelets (Bld) [#/Vol] 294 10*3/uL Normal 150 - 450 [facility] Comment on above: Performed By: #### C BCDF #### [address] [place] [address] RBC (Bld) [#/Vol] 4.02 x10E12/L Low 4.50 - 5.90 [facility] Comment on above: Performed By: #### C BCDF #### [address] [address] WBC (Bld) [#/Vol] 11.3 10*3/uL Normal 4.4 - 11.3 [facility] Comment on above: Performed By: #### C BCDF #### [facility] [address] [place] [address] CHEST 2 VIEW PA AND LATon CHEST 2 VIEW PA AND LAT Patient Name: NATALIE GERBER STUDY: TH CHEST 2 VIEW PA AND LAT; 03/26/2019 9:51 pm INDICATION: chest pain. COMPARISON: 06/15/2018 ACCESSION NUMBER(S): [id number] ORDERING CLINICIAN: DULCE MEAD FINDINGS: CARDIOMEDIASTINAL SILHOUETTE: Cardiomediastinal silhouette is enlarged with mild pulmonary venous congestion LUNGS: Lungs are clear. There is no confluent airspace disease or effusion. ABDOMEN: No remarkable upper abdominal findings. BONES: No acute osseous changes. IMPRESSION: Cardiomegaly with mild pulmonary venous congestion Electronically signed by: SIMONA ALCANTARA MD Normal [facility] Provider Note - ED v2on 03-03 Provider Note - ED v2 Provider Note - ED v2: Chart Review: ED NOTES ED NOTES: HPI: The pt is a 59 y/o male presenting to the ED with chest pain. He admits to 5.5/10 current left sided chest pain with tingling in the left side of his jaw and left upper extremity for the last hour. He admits the pain began suddenly while he was on a scooter at [facility] this evening and admits to taking 3 NTG, bringing his pain down from an 8/10 to the current 5.5/10. He admits to a hx of this pain stating his last episode of chest pain was 4 months ago. He also admits to associated nausea and admits to increased SOB at rest with lower extremity swelling for the last 2 days. He denies any headaches, vision changes, neck pain, cough, back pain, abdominal pain, vomiting, bowel changes, fever or chills. PMH: HTN, HLD, CAD, [place] (2005), CHF, PE (1998), CVA (2017), TIA, anemia, chronic back pain PSH: Back surgery, left hip replacement, hernia repair Sochx: No drugs, tobacco, alcohol FamHx: Reviewed and noncontributory All: Allergies to Nubain, Toradol, Review of Systems: 10 point review of systems negative except pertinent positives and negatives as listed in HPI Physical Exam: Vital signs and nursing note reviewed General: Appears well, no acute distress, alert. Morbidly obese Head: Head atraumatic; normocephalic Eyes: Normal inspection; no icterus ENT: Mucosa moist without lesion Neck: Normal inspection, no meningeal signs Resp: Normal breath sounds, no wheezes or crackles; No respiratory distress Chest Wall: No chest wall tenderness or deformities Heart: Heart rate and rhythm regular; No Murmurs Abdomen: Soft, Non-tender; No distention, guarding, rigidity, or rebound MSK: Normal appearance; Moves all extremities; No LE edema Neuro: Alert; moves all extremities Psych: Mood and Affect normal Skin: Color appropriate; warm; Dry EKG shows sinus rhythm at 81 bpm. No axis deviation, T-wave inversions, or ectopy. MDM: Pt presents with chest pain. He admits to current 5.5/10 left sided chest pain radiating to the left side of his jaw and left upper extremity for the last hour. He admits to taking 3 NTG, bringing his pain down from an 8/10 to 5.5/10. On exam the pt was alert, oriented, in NAD, and was obese. There was no palpable chest wall tenderness. A cardiac workup was ordered including a CBC, CMP, PT/INR, delta troponin, and CXR to rule out cardiac process vs CHF flare. Pt agreeable with plan of care. Labs returned showing pt's HGB 10.9, HCT 36.4, and NA 134. Troponin was negative. CXR shows cardiomegaly with mild pulmonary venous congestion. HEART score of 4 was given for age and known CAD with a prior WI. On reevaluation, pt is resting in bed still complaining of chest pain. Pt was updated on findings and results. ADMIT: Given pt's presentation, hx of CAD with a prior WI, and sustained chest pain, pt will be admitted to the hospital. Case is discussed with Dr. Mc, who agreed to admit patient as an observation to floor. Pt updated and agreeable. HISTORY OF PRESENTING ILLNESS NATALIE is a 59 year old Male and was seen by me at 26-Mar-2019 21:02. Triage Information: Most recent Vital Sign Value Date Temp (F): 98.4 10-25-2019 21:37 Temp (C): 36.9 03-26-2019 21:37 Heart Rate (beats/min): 87 03-26-2019 21:37 Respirations (breaths/min): 20 03-26-2019 21:37 SpO2 (%): 95 03-26-2019 21:37 BP Systolic (mm Hg): 153 03-26-2019 21:37 BP Diastolic (mm Hg): 74 03-26-2019 21:37 PAST MEDICAL HISTORY ATTESTATION: I have reviewed and confirmed nurse's/medic's notes for patient's medications, allergies, medical history, and surgical history ALLERGIES/INTOLERANCES: Allergy Allergen: Nubain Type: Drug Reaction: Anxiety Hives/Urticaria Allergen: Toradol IV/IM Type: Drug Reaction: Hives/Urticaria Allergen: Fish Type: Food Reaction: Hives/Urticaria HEALTH HISTORY: Medical History Name:Pulmonary embolism Code:I26.99 Name:Anemia Code:D64.9 Name:Diverticulitis Code:K57.92 Name:Coronary artery disease Code:I25.10 Name:Stroke Code:I63.9 Name:Benign essential hypertension Code:I10 Social History Name:Malingering Code:Z76.5 OUTPATIENT MEDICATIONS: Home Medications Review Status for Reconciliation: Complete Med Status: Patient Currently Takes Medications Drug Name: aspirin 81 mg oral delayed release tablet Instructions: 1 tab(s) orally once a day Drug Name: Lasix 20 mg oral tablet Instructions: 1 tab(s) orally once a day Drug Name: Plavix 75 mg oral tablet Instructions: 1 tab(s) orally once a day Drug Name: nitroglycerin Instructions: 0.4 milligram(s) sublingual every 5 minutes, As Needed Drug Name: Seroquel 100 mg oral tablet Instructions: 1 tab(s) orally once a day (at bedtime) Drug Name: Nexium 40 mg oral delayed release capsule Instructions: 1 cap(s) orally 2 times a day Drug Name: Celexa 20 mg oral tablet Instructions: 1 tab(s) orally once a day Drug Name: lisinopril 10 mg oral tablet Instructions: 1 tab(s) orally once a day Drug Name: carvedilol 6.25 mg oral tablet Instructions: 1 tab(s) orally once a day Drug Name: simvastatin 40 mg oral tablet Instructions: 1 tab(s) orally once (at bedtime) Drug Name: levothyroxine 25 mcg (0.025 mg) oral tablet Instructions: 1 tab(s) orally once a day Drug Name: Adderall 20 mg oral tablet Instructions: 1 tab(s) orally 2 times a day Drug Name: oxyCODONE 5 mg oral tablet Instructions: 1 tab(s) orally every 4 hours, As needed, Pain - Severe (7-10) Drug Name: traMADol 50 mg oral tablet Instructions: 2 tab(s) orally every 6 hours, As Needed - Use as Directed 3 times a day (with meals) per Corrective Scale (Mild) - for pain SIGNIFICANT EVENTS: Clinical Events Description:Surgical Procedure Additional Notes:EGD Description:Surgical Procedure Additional Notes:EGD with bx Immunizations Description:flu shot 2015 Description:pneumo vac Other Description:Family spokesperson Additional Notes:NONE PROVIDED Past Medical History Description:Hypertension (HTN) Additional Notes:CHF., Back Surgery., Vascular Necrosis., High chol., Asthma., Depression Description:mi Description:total hip left Description:chf, htn, mi,, bph Description:cellulitis of both lower legs Description:diverticulitis Description:Diastolic CHF Description:Mild CAD, but no h/o WI Description:TIA Description:diverticulitis Description:CVA w/ TPA Description:TIA Past Surgical History Description:back surgery, left hip surgery, gallbladder Description:hernia surgery Description:Left Knee RESULTS/VITAL SIGNS RESULTS: Recent Lab Results: I have reviewed these laboratory results: Complete Blood Count + Differential 26-Mar-2019 21:33:00 ResultValue White Blood Cell Count 11.3 Nucleated Erythrocyte Count 0.0 Red Blood Cell Count 4.02 L HGB 10.9 L HCT 36.4 L MCV 91 MCHC 29.9 L PLT 294 RDW-CV 14.4 Neutrophil % 75.9 Immature Granulocytes % 0.6 Lymphocyte % 17.4 Monocyte % 3.9 Eosinophil % 1.8 Basophil % 0.4 Neutrophil Count 8.58 H Lymphocyte Count 1.97 Monocyte Count 0.44 Eosinophil Count 0.20 Basophil Count 0.04 Comprehensive Metabolic Panel 26-Mar-2019 21:33:00 ResultValue Glucose, Serum 100 H NA 134 L K 4.9 CL 103 Bicarbonate, Serum 24 Anion Gap, Serum 12 BUN 9 CREAT 0.77 GFR-Non >60 GFR- >60 Calcium, Serum 8.8 ALB 4.1 ALKP 135 H T Pro 7.5 T Bili 0.5 Alanine Aminotransferase, Serum 8 L Aspartate Transaminase, Serum 19 PT + INR, Plasma 26-Mar-2019 21:33:00 ResultValue Prothrombin Time, Plasma 11.2 International Normalized Ratio, Plasma 1.0 Troponin I, Serum 26-Mar-2019 21:33:00 ResultValue Troponin I, Serum <0.02 Radiology Results: Impression: Cardiomegaly with mild pulmonary venous congestion Xray Chest 2 View PA + Lateral [Mar 26 2019 9:57PM] VITAL SIGNS: T PRBP SpO2O2(LPM) %FiO2 Method 26-Mar-2019 21:37:[id number]/74 95 room air, no respiratory support 26-Mar-2019 21:00:[id number]/74 95 room air, no respiratory support CLINICAL DECISION SUPPORT HEART SCORE HEART History: Moderately suspicious HEART ECG: Normal HEART Age: > 45 and < 65 HEART Risk Factors: Greater than or = to 3 risk factors or history of atherosclerotic diease HEART Troponin: Less than or = 1x the normal limit TOTAL HEART SCORE: 4 CLINICAL IMPRESSION Diagnosis/Annotation: ED Dx Name:Chest pain Code:R07.9 Dispostion: hospitalized Admit to: Observation. Admitting Considerations: ATTESTATION Scribe Name: Uziel Paul Scribing on Behalf of: Dulce Mead ATTENDING SCRIBE ATTESTATION STATEMENT I, Dulce Mead DO, attests all medical record entries made by the scribe were under my direction and personally dictated by me. I have reviewed the chart and agree that the record accurately reflects my performance of the history, physical, and assessment plan. I have also personally directed, reviewed, and agree with disposition instructions. Comments/Additional Findings: Scribed by Uziel Paul This note is prepared by the scribe acting for Dulce Mead. All medical record entries made by the scribe were at my direction and personally dictated by me. I have reviewed the chart and agree that the record accurately reflects my personal performance of the history, physical exam, assessment, plan, and diagnosis. I have also personally directed, reviewed, and agree with the discharge instructions. Dulce Mead DO CRITICAL CARE TIME Is this a critically ill patient: no Electronic Signatures: Dulce Mead () (Signed 27-Mar-2019 01:19) Authored: Provider Note - ED v2 Dipti Paul (Rolandoibe) (Entered 26-Mar-2019 21:26) Entered: Provider Note - ED v2 Last Updated: 27-Mar-2019 01:19 by Dulce Mead () [facility] Triage - EDon 03-26-2019 Triage - ED Quick Triage: The patient and/or guardian verbally acknowledges placement for services into the following (when Urgent Care Service hours are operating):emergency department Chart Review: CHIEF COMPLAINT NATALIE GERBER is a Male patient with a chief complaint of chest pain (59 y/o male brought in by ems from [facility] with complaint of chest pain that started 1 hour prior to arrival. Patient states he was riding on a scooter through [facility] when pain started. Patient states he took 4 s/l ntg prior to es arrival with some relief. EMS initiated iv access, gave 324mg of asa prior to arrival. Patient c/o increasing sob, swelling to bilateral LE as well as tingling to left arm and mild nausea.). Onset of the Complaint: 26-Mar-2019 Triage Date/Time: 26-Mar-2019 21:00 Pain Rating (0-10): 5 = Moderate Acceptable Pain Level (0-10): 0 Pain location: chest Vital Signs: Temperature: 98.4F ( 36.9C) taken forehead Blood Pressure: 153/74 Mean: Heart Rate: 87 Respiratory Rate: 20 Pulse Oximetry: 95% on room air, no respiratory support. Height: 5 feet 5.00 inches. 165.1 CM Weight: 313.0 pounds. Calculated 141.9 kg. (stated) Calculated BMI (kg/m2): 52.058 Calculated BSA (m2) 2.55 [place] Coma Scale: Best Eye Response: (E4) spontaneous Best Motor Response: (M6) obeys commands Best Verbal Response: (V5) oriented Celia Score: 15 [place] Assessment Qualifiers: patient not sedated/intubated Cough lasting greater than 3 weeks: no Patient immunocompromised related to: N/A Travel outside of [facility]: no Allergies: yes Patient has homicidal thoughts: no BRI: 3 Symptoms Are POSITIVE For: dyspnea, nausea, numbness, pain and tingling Symptoms Are Negative For: anxiety, chills, diaphoresis, headache, loss of consciousness and weakness Activity At Onset: Physical activity Chest Pain Location-Left: upper chest Chest Pain Location-Right: upper chest Risk Screens Suicide Risk Screen In the Past Month: Have you wished you were or wished you could go to sleep and not wake up no In the Past Month: Have you had any actual thoughts of killing yourself no In Your Lifetime: Have you ever done anything, started to do anything, or prepared to do anything to end your life no Ascencio Fall Scale Screening Has the patient fallen before (or is the patient in the ED as a result of a fall) has had a fall Does the patient have an impaired gait has impaired gait Is the patient cognitively impaired not cognitively impaired Ascencio Fall Scale History of falling (immediate or previous) yes (25) Secondary Diagnosis yes (15) Intravenous Therapy/ Heparin/Saline Lock yes (20) Gait/Transferring normal/bedrest/wheelchair (0) Ambulatory Aids crutches/walker/cane (15) Mental Status oriented to own ability (0) Ascencio Fall Risk Score: 75 Interventions: High Risk > 45 interventions: bed in low position with brakes locked and side rails up, bedside table within reach, call light provided to patient, complete hourly rounding on patient for safety, patient oriented to surroundings, falls risk band applied to patient, if able, patient will ambulate with assistance, medications reviewed for potential side effects and care planning, mode of toileting discussed with patient, patients environment free of clutter and patient/family education completed PAIN Pain Scale Used: CHEY Pain Rating (0-10): 5 = Moderate Acceptable Pain Level (0-10): 0 ARRIVAL INFORMATION Means of Arrival: stretcher Mode of Arrival: ambulance Unit: 5 Agency: [facility] ([facility]) Accompanied By: property insurance agent Language: Spoken Language Preferred: Cook Islander Reading Language Preferred: [place] Islander Oncology Coordinator Requested: no cream dipper was requested MDRO: History of MDRO: no Present on Arrival: Device Present on Arrival to ED: yes Vascular Access Device: yes Type: peripheral IV Urine Device: none Peripheral IV WDL: WDL Peripheral IV Insertion Date: 26-Mar-2019 Peripheral IV Present on Admission: present on admission Peripheral IV Location: hand Peripheral IV Site Maintenance: transparent semipermeable dressing Peripheral IV Size: 20 gauge Peripheral IV Patency: blood return, able to obtain and flushed without difficulty TREATMENT PRIOR TO ARRIVAL Treatment Prior to Arrival: Prior to arrival in the Emergency Department NATALIE GERBER had treatment conducted by EMS which included the following; EKG, medications, saline lock and see ambulance record. EMS REPORTED VITAL SIGNS Blood Pressure: 140/78 Mean: Heart Rate: 84 Respiratory Rate: 20 Pulse Oximetry: 96% Medications Administrated: Aspirin 324 mg. Patient took 4 s/l ntg tabs prior to ems arrival. Patient states he was at the pharmacy at [facility] and the Pharmacist advised him to that the 4 tablet and he did so, . PRIMARY ASSESSMENT NATALIE GERBER's primary assessment is Within Normal Limits. The airway is open and patent. Breathing spontaneous and unlabored with clear breath sounds bilaterally. Circulation is normal with good peripheral pulses. Skin is warm and dry and color is normal for race. PAST MEDICAL HISTORY Immunization History: Last Known Tetanus Immunization: Unknown TRAVEL HISTORY Travel Exposure History: NO travel to International locations in the past 30 days Past Medical History: Past Medical History Reviewedyes Electronic Signatures: Kevin Patton (RN) (Signed 26-Mar-2019 23:47) Authored: Triage, Past Medical History Last Updated: 26-Mar-2019 23:47 by Kevin Patton (RN) Normal [facility] CBC Auto Differentialon 03-03 Absolute Baso # 0.1 10*3/uL 0 - 0.2 10*3/uL [place] Absolute Neut # 4.7 10*3/uL 1.8 - 7 10*3/uL [place] Basophils/100 WBC (Bld) 0.8 % 0 - 2 % [place] Eosinophils (Bld) [#/Vol] 0.1 10*3/uL 0 - 0.5 10*3/uL [place] Eosinophils/100 WBC (Bld) 1.9 % 1 - 6 % [place] Erythrocyte distribution width (RBC) [Ratio] 15.2 % High 11.5 - 14.5 % [place] Granulocytes/100 WBC (Bld) 66.4 % 40 - 80 % [place] Hematocrit (Bld) [Volume fraction] 32.7 % Low 40 - 52 % [place] Hemoglobin (Bld) [Mass/Vol] 10.7 g/dL Low 13 - 18 g/dL [place] Interpretation and review of laboratory results Abnormal [place] Lymphocytes (Bld) [#/Vol] 1.8 10*3/uL 1 - 4.3 10*3/uL [place] Lymphocytes/100 WBC (Bld) 25.8 % 20 - 40 % [place] MCH (RBC) [Entitic mass] 28.0 pg 26 - 34 pg [place] MCHC (RBC) [Mass/Vol] 32.6 % 32 - 36 % [place] MCV (RBC) [Entitic vol] 85.9 fL 80 - 98 fL [place] Monocytes (Bld) [#/Vol] 0.4 10*3/uL 0 - 0.8 10*3/uL [place] Monocytes/100 WBC (Bld) 5.1 % 2 - 10 % [place] Platelet mean volume (Bld) [Entitic vol] 7.9 fL 7.4 - 10.4 fL [place] Platelets (Bld) [#/Vol] 241 10*3/uL 140 - 440 10*3/uL [place] RBC (Bld) [#/Vol] 3.81 10*6/uL Low 4.4 - 5.9 10*6/uL [place] WBC (Bld) [#/Vol] 7.0 10*3/uL 3.6 - 10.7 10*3/uL [place] Test Performed by [facility], [address] [place] [id number] [place], [place] Comp Metabolic Panelon 03-22 ALP [Catalytic activity/Vol] 149 U/L High 38-126 [facility] Comment on above: Performed By: #### H EMOG, DDI2, BMP3, LIPA4, TROPN, BNP3 #### [facility] [address] [place] [address] ALT [Catalytic activity/Vol] 17 U/L Normal 13-69 [facility] Comment on above: Performed By: #### H EMOG, DDI2, BMP3, LIPA4, TROPN, BNP3 #### [facility] [address], [place] Anion gap [Moles/Vol] 6 Normal [facility] Comment on above: Performed By: #### H EMOG, DDI2, BMP3, LIPA4, TROPN, BNP3 #### [place] [address], [place] AST [Catalytic activity/Vol] 35 U/L Normal 15-46 [facility] Comment on above: Performed By: #### H EMOG, DDI2, BMP3, LIPA4, TROPN, BNP3 #### [place] [address] [place], [place] Bilirubin [Mass/Vol] 0.2 mg/dL Normal 0.2-1.3 [facility] Comment on above: Performed By: #### H EMOG, DDI2, BMP3, LIPA4, TROPN, BNP3 #### [place] [address], [place] Calcium [Mass/Vol] 8.9 mg/dL Normal 8.4-10.4 [facility] Comment on above: Performed By: #### H EMOG, DDI2, BMP3, LIPA4, TROPN, BNP3 #### [place] [address] [place], [place] CO2 [Moles/Vol] 26 mmol/L Normal 22-30 [facility] Comment on above: Performed By: #### H EMOG, DDI2, BMP3, LIPA4, TROPN, BNP3 #### [place] [address] [place], [place] Glucose [Mass/Vol] 115 mg/dL High 70-100 [facility] Comment on above: Performed By: #### H EMOG, DDI2, BMP3, LIPA4, TROPN, BNP3 #### [place] [address] [place], [place] Protein [Mass/Vol] 6.7 g/dL Normal 6.3-8.2 [facility] Comment on above: Performed By: #### H EMOG, DDI2, BMP3, LIPA4, TROPN, BNP3 #### [place] [address] [place], [place] Urea nitrogen [Mass/Vol] 8 mg/dL Normal 7-20 [facility] Comment on above: Performed By: #### H EMOG, DDI2, BMP3, LIPA4, TROPN, BNP3 #### [address] Creatinine [Mass/Vol] 0.66 mg/dL Normal 0.52-1.25 [facility] Comment on above: Performed By: #### H EMOG, DDI2, BMP3, LIPA4, TROPN, BNP3 #### [address] GFR/1.73 sq M predicted among blacks MDRD (S/P/Bld) [Vol rate/Area] mL/min/{1.73_m2} Normal >60 [facility] Comment on above: Performed By: #### H EMOG, DDI2, BMP3, LIPA4, TROPN, BNP3 #### [place] [address] [place], [place] GFR/1.73 sq M predicted among non-blacks MDRD (S/P/Bld) [Vol rate/Area] mL/min/{1.73_m2} Normal >60 [facility] Comment on above: Result Comment: Sour ce- MDRD equation with creatinine calibration to IDMS(NKDEP) eGFR not recommended for drug dose adjustment Performed By: #### H EMOG, DDI2, BMP3, LIPA4, TROPN, BNP3 #### [place] [address] [place], [place] Albumin [Mass/Vol] 3.4 g/dL Low 3.5-5.0 [facility] Comment on above: Performed By: #### H EMOG, DDI2, BMP3, LIPA4, TROPN, BNP3 #### [place] [address] [place], [place] Chloride [Moles/Vol] 107 mmol/L Normal 98-107 [facility] Comment on above: Performed By: #### H EMOG, DDI2, BMP3, LIPA4, TROPN, BNP3 #### [place] [address] [place] [address] Potassium [Moles/Vol] 3.9 mmol/L Normal 3.5-5.1 [facility] Comment on above: Performed By: #### H EMOG, DDI2, BMP3, LIPA4, TROPN, BNP3 #### [address] Sodium [Moles/Vol] 139 mmol/L Normal 135-145 [facility] Comment on above: Performed By: #### H EMOG, DDI2, BMP3, LIPA4, TROPN, BNP3 #### [place] [address] [place], [place] Comprehensive Metabolic Pane [place] 2019 Albumin [Mass/Vol] 3.4 g/dL Low 3.5 - 5 g/dL [place] ALP [Catalytic activity/Vol] 149 U/L High 38 - 126 U/L [place] ALT [Catalytic activity/Vol] 17 U/L 13 - 69 U/L [place] Anion gap [Moles/Vol] 6 mmol/L [place] AST [Catalytic activity/Vol] 35 U/L 15 - 46 U/L [place] Bilirubin Ql (U) 0.2 mg/dL 0.2 - 1.3 mg/dL [place] Calcium [Mass/Vol] 8.9 mg/dL 8.4 - 10. 4 mg/dL [place] Chloride [Moles/Vol] 107 mmol/L 98 - 10 7 mmol/L [place] CO2 [Moles/Vol] 26 mmol/L 22 - 30 mmol/L [place] Creatinine [Mass/Vol] 0.66 mg/dL 0.52 - 1.25 mg/dL [place] EGFR IF NonAfrican [place] >60.0 >60 mL/min [place] Comment on above: Source- MDRD equatio n with creatinine calibration to IDMS(NKDEP) eGFR not recommended for drug dose adjustment GFR/1.73 sq M predicted among blacks MDRD (S/P/Bld) [Vol rate/Area] mL/min/{1.73_m2} >60 mL/min [place] Glucose [Mass/Vol] 115 mg/dL High 70 - 100 mg/dL [place] Interpretation and review of laboratory results Abnormal [place] Potassium [Moles/Vol] 3.9 mmol/L 3.5 - 5.1 mmol/L [place] Protein [Mass/Vol] 6.7 g/dL 6.3 - 8.2 g/dL [place] Sodium [Moles/Vol] 139 mmol/L 135 - 145 mmol/L [place] Urea nitrogen [Mass/Vol] 8 mg/dL 7 - 20 mg/dL [place] Test Performed by [id number] [place] [address] Hemogram w/ Autodiffon 03-22 Abs Baso Cnt 0.1 10*3/uL Normal 0.0-0.2 [facility] Comment on above: Performed By: #### H EMOG, DDI2, BMP3, LIPA4, TROPN, BNP3 #### [address] [id number] Abs Neutrophile Cnt 4.7 10*3/uL Normal 1.8-7.0 [facility] Comment on above: Performed By: #### H EMOG, DDI2, BMP3, LIPA4, TROPN, BNP3 #### [address] [id number] Basophils/100 WBC (Bld) 0.8 % Normal 0.0-2.0 [facility] Comment on above: Performed By: #### H EMOG, DDI2, BMP3, LIPA4, TROPN, BNP3 #### [address] Eosinophils (Bld) [#/Vol] 0.1 10*3/uL Normal 0.0-0.5 [facility] Comment on above: Performed By: #### H EMOG, DDI2, BMP3, LIPA4, TROPN, BNP3 #### [address] Eosinophils/100 WBC (Bld) 1.9 % Normal 1.0-6.0 [facility] Comment on above: Performed By: #### H EMOG, DDI2, BMP3, LIPA4, TROPN, BNP3 #### [address] Erythrocyte distribution width (RBC) [Ratio] 15.2 % High 11.5-14.5 [facility] Comment on above: Performed By: #### H EMOG, DDI2, BMP3, LIPA4, TROPN, BNP3 #### [address] Granulocytes/100 WBC (Bld) 66.4 % Normal 40.0-80.0 [facility] Comment on above: Performed By: #### H EMOG, DDI2, BMP3, LIPA4, TROPN, BNP3 #### [address] Hematocrit (Bld) [Volume fraction] 32.7 % Low 40.0-52.0 [facility] Comment on above: Performed By: #### H EMOG, DDI2, BMP3, LIPA4, TROPN, BNP3 #### [address] Hemoglobin (Bld) [Mass/Vol] 10.7 g/dL Low 13.0-18.0 [facility] Comment on above: Performed By: #### H EMOG, DDI2, BMP3, LIPA4, TROPN, BNP3 #### [address] Lymphocytes (Bld) [#/Vol] 1.8 10*3/uL Normal 1.0-4.3 [facility] Comment on above: Performed By: #### H EMOG, DDI2, BMP3, LIPA4, TROPN, BNP3 #### [place] [address] [place], [place] Lymphocytes/100 WBC (Bld) 25.8 % Normal 20.0-40.0 [facility] Comment on above: Performed By: #### H EMOG, DDI2, BMP3, LIPA4, TROPN, BNP3 #### [address] MCH (RBC) [Entitic mass] 28.0 pg Normal 26.0-34.0 [facility] Comment on above: Performed By: #### H EMOG, DDI2, BMP3, LIPA4, TROPN, BNP3 #### [address] MCHC (RBC) [Mass/Vol] 32.6 % Normal 32.0-36.0 [facility] Comment on above: Performed By: #### H EMOG, DDI2, BMP3, LIPA4, TROPN, BNP3 #### [address] MCV (RBC) [Entitic vol] 85.9 fL Normal 80.0-98.0 [facility] Comment on above: Performed By: #### H EMOG, DDI2, BMP3, LIPA4, TROPN, BNP3 #### [address] Monocytes (Bld) [#/Vol] 0.4 10*3/uL Normal 0.0-0.8 [facility] Comment on above: Performed By: #### H EMOG, DDI2, BMP3, LIPA4, TROPN, BNP3 #### [address] Monocytes/100 WBC (Bld) 5.1 % Normal 2.0-10.0 [facility] Comment on above: Performed By: #### H EMOG, DDI2, BMP3, LIPA4, TROPN, BNP3 #### [address] Platelet mean volume (Bld) [Entitic vol] 7.9 fL Normal 7.4-10.4 [facility] Comment on above: Performed By: #### H EMOG, DDI2, BMP3, LIPA4, TROPN, BNP3 #### [facility] [address], [place] Platelets (Bld) [#/Vol] 241 10*3/uL Normal 140-440 [facility] Comment on above: Performed By: #### H EMOG, DDI2, BMP3, LIPA4, TROPN, BNP3 #### [facility] [address], [place] RBC (Bld) [#/Vol] 3.81 10*6/uL Low 4.40-5.90 [facility] Comment on above: Performed By: #### H EMOG, DDI2, BMP3, LIPA4, TROPN, BNP3 #### [place] [address] [place], [place] WBC (Bld) [#/Vol] 7.0 10*3/uL Normal 3.6-10.7 [facility] Comment on above: Performed By: #### H EMOG, DDI2, BMP3, LIPA4, TROPN, BNP3 #### [place] [address], [place] MRI LUMBAR SPINE W JERED [place] 2019 [facility], [facility] Incoming Radiology Results From [facility] - 2019 7:28 PM EDT Patient Name: NATALIE GERBER ---MRI--- Exam Date/Time 2019 16:30:29 EDT Exam MRI Spine Lumbar w/ + w/o Contrast Ordering Physician MD JACOB, SUNNY FERNÁNDEZ Accession Number [id number] CPT4 Codes 29061 () Reason For Exam left leg weakness, elevated esr/crp Report EXAM TYPE: MRI Spine Lumbar w/ + w/o Contrast EXAM DATE AND TIME: 2019 4:30 PM EDT INDICATION: Left leg weakness, elevated ESR and CRP, back pain COMPARISON: MRI lumbar spine on 02/27/2012 TECHNIQUE: MR imaging of the lumbar spine was performed with and without intravenous contrast (20 ml of Multihance). Multisequence sequences are motion degraded. FINDINGS: The last fully formed disc is considered L5-S1. Changes of posterior decompression with laminectomies at L3-L4 and L4-L5. Associated posterior paraspinal muscular atrophy and scarring. No associated posterior paraspinal fluid collection. There is normal lumbar lordosis. No subluxation. Vertebral body heights are maintained. Degenerative endplate changes are present throughout the lumbar spine, most significant at L3-L4 and L4-L5. There is fluid signal within the disc at L4-L5 and to a lesser degree posteriorly at L3-L4 without significant associated enhancement of this time. Mild edematous endplate changes are also present at L4-L5. Findings can be seen with both degenerative change and with osteomyelitis/discitis. Multilevel disc desiccation throughout the lumbar spine. Loss of disc height at L3-L4 and to a lesser degree at L4-L5. L1 hemangioma. The conus terminates at the L1 level. The distal cord is normal in size and signal characteristics. There is normal distribution of the nerve roots of the cauda equina. No abnormal cord or intrathecal enhancement. No definite visualized epidural fluid collection within the limits of motion artifact. T11-T12: No disc herniation. No spinal canal or foraminal narrowing. T12-L1: No disc herniation. No spinal canal or foraminal narrowing. L1-L2: No disc herniation. No spinal canal or foraminal narrowing. L2-L3: Mild disc osteophyte complex. Prominent dorsal epidural fat. Moderate spinal canal narrowing. Bilateral facet hypertrophy. Mild bilateral foraminal narrowing. Left foraminal disc protrusion. Findings have progressed since prior. L3-L4: Mild disc osteophyte complex. Bilateral facet hypertrophy. Narrowing of lateral recesses. Moderate spinal canal narrowing. Moderate to severe bilateral foraminal narrowing. Small right foraminal disc protrusion. Findings have progressed since prior. L4-L5: Mild disc osteophyte complex with central disc protrusion. Severe bilateral facet hypertrophy. Trefoil configuration of the spinal canal. Severe spinal canal narrowing. Effacement lateral recesses. Severe bilateral foraminal narrowing with bilateral foraminal disc extrusion. Findings have progressed since prior. L5-S1: No disc herniation. Severe bilateral facet hypertrophy. Narrowing of lateral recesses. Severe bilateral foraminal narrowing. IMPRESSION: 1. Surgical changes of posterior decompression at L3-L4 and L4-L5. 2. Fluid signal within the discs at L4-L5 and to a lesser degree at L3-L4. No associated enhancement. Mild edematous endplate changes at L4-L5. Findings are equivocal for early osteomyelitis/discitis versus degenerative changes. 3. Spinal canal narrowing at L4-L5.. Moderate spinal canal narrowing at L3-L4 and L2-L3. 4. Severe bilateral foraminal narrowing at L4-L5 and L5-S1. Moderate to severe bilateral foraminal narrowing at L3-L4. 5. Otherwise, multilevel degenerative changes of the lumbar spine as described. 6. No definite visualized epidural fluid collection within the limits of motion artifact. Report Dictated on --- Final --- Dictated: 2019 7:16 pm Dictating Physician: MD MEDEIROS NEIL Signed Date and Time: 2019 7:27 pm Signed by: MD MEDEIROS NEIL Transcribed Date and Time: 2019 7:16 [place], [place] Patient Name: NATALIE GERBER ---MRI--- Exam Date/Time 2019 16:30:29 EDT Exam MRI Spine Lumbar w/ + w/o Contrast Ordering Physician MD JACOB, SUNNY FERNÁNDEZ Accession Number [id number] CPT4 Codes 05137 () Reason For Exam left leg weakness, elevated esr/crp Report EXAM TYPE: MRI Spine Lumbar w/ + w/o Contrast EXAM DATE AND TIME: 2019 4:30 PM EDT INDICATION: Left leg weakness, elevated ESR and CRP, back pain COMPARISON: MRI lumbar spine on 02/27/2012 TECHNIQUE: MR imaging of the lumbar spine was performed with and without intravenous contrast (20 ml of Multihance). Multisequence sequences are motion degraded. FINDINGS: The last fully formed disc is considered L5-S1. Changes of posterior decompression with laminectomies at L3-L4 and L4-L5. Associated posterior paraspinal muscular atrophy and scarring. No associated posterior paraspinal fluid collection. There is normal lumbar lordosis. No subluxation. Vertebral body heights are maintained. Degenerative endplate changes are present throughout the lumbar spine, most significant at L3-L4 and L4-L5. There is fluid signal within the disc at L4-L5 and to a lesser degree posteriorly at L3-L4 without significant associated enhancement of this time. Mild edematous endplate changes are also present at L4-L5. Findings can be seen with both degenerative change and with osteomyelitis/discitis. Multilevel disc desiccation throughout the lumbar spine. Loss of disc height at L3-L4 and to a lesser degree at L4-L5. L1 hemangioma. The conus terminates at the L1 level. The distal cord is normal in size and signal characteristics. There is normal distribution of the nerve roots of the cauda equina. No abnormal cord or intrathecal enhancement. No definite visualized epidural fluid collection within the limits of motion artifact. T11-T12: No disc herniation. No spinal canal or foraminal narrowing. T12-L1: No disc herniation. No spinal canal or foraminal narrowing. L1-L2: No disc herniation. No spinal canal or foraminal narrowing. L2-L3: Mild disc osteophyte complex. Prominent dorsal epidural fat. Moderate spinal canal narrowing. Bilateral facet hypertrophy. Mild bilateral foraminal narrowing. Left foraminal disc protrusion. Findings have progressed since prior. L3-L4: Mild disc osteophyte complex. Bilateral facet hypertrophy. Narrowing of lateral recesses. Moderate spinal canal narrowing. Moderate to severe bilateral foraminal narrowing. Small right foraminal disc protrusion. Findings have progressed since prior. L4-L5: Mild disc osteophyte complex with central disc protrusion. Severe bilateral facet hypertrophy. Trefoil configuration of the spinal canal. Severe spinal canal narrowing. Effacement lateral recesses. Severe bilateral foraminal narrowing with bilateral foraminal disc extrusion. Findings have progressed since prior. L5-S1: No disc herniation. Severe bilateral facet hypertrophy. Narrowing of lateral recesses. Severe bilateral foraminal narrowing. IMPRESSION: 1. Surgical changes of posterior decompression at L3-L4 and L4-L5. 2. Fluid signal within the discs at L4-L5 and to a lesser degree at L3-L4. No associated enhancement. Mild edematous endplate changes at L4-L5. Findings are equivocal for early osteomyelitis/discitis versus degenerative changes. 3. Spinal canal narrowing at L4-L5.. Moderate spinal canal narrowing at L3-L4 and L2-L3. 4. Severe bilateral foraminal narrowing at L4-L5 and L5-S1. Moderate to severe bilateral foraminal narrowing at L3-L4. 5. Otherwise, multilevel degenerative changes of the lumbar spine as described. 6. No definite visualized epidural fluid collection within the limits of motion artifact. Report Dictated on --- Final --- Dictated: 2019 7:16 pm Dictating Physician: MD MEDEIROS NEIL Signed Date and Time: 2019 7:27 pm Signed by: MD MEDEIROS NEIL Transcribed Date and Time: 2019 7:16 [place] MRI Spine Lumbar w/ + w/o Co ntraston 2019 MRI Spine Lumbar w/ + w/o Contrast Patient Name: NATALIE GERBER MRI Exam Date/Time 2019 16:30:29 EDT Exam MRI Spine Lumbar w/ + w/o Contrast Ordering Physician MD JACOB, SUNNY FERNÁNDEZ Accession Number [id number] CPT4 Codes 63565 () Reason For Exam left leg weakness, elevated esr/crp Report EXAM TYPE: MRI Spine Lumbar w/ + w/o Contrast EXAM DATE AND TIME: 2019 4:30 PM EDT INDICATION: Left leg weakness, elevated ESR and CRP, back pain COMPARISON: MRI lumbar spine on 02/27/2012 TECHNIQUE: MR imaging of the lumbar spine was performed with and without intravenous contrast (20 ml of Multihance). Multisequence sequences are motion degraded. FINDINGS: The last fully formed disc is considered L5-S1. Changes of posterior decompression with laminectomies at L3-L4 and L4-L5. Associated posterior paraspinal muscular atrophy and scarring. No associated posterior paraspinal fluid collection. There is normal lumbar lordosis. No subluxation. Vertebral body heights are maintained. Degenerative endplate changes are present throughout the lumbar spine, most significant at L3-L4 and L4-L5. There is fluid signal within the disc at L4-L5 and to a lesser degree posteriorly at L3-L4 without significant associated enhancement of this time. Mild edematous endplate changes are also present at L4-L5. Findings can be seen with both degenerative change and with osteomyelitis/discitis. Multilevel disc desiccation throughout the lumbar spine. Loss of disc height at L3-L4 and to a lesser degree at L4-L5. L1 hemangioma. The conus terminates at the L1 level. The distal cord is normal in size and signal characteristics. There is normal distribution of the nerve roots of the cauda equina. No abnormal cord or intrathecal enhancement. No definite visualized epidural fluid collection within the limits of motion artifact. T11-T12: No disc herniation. No spinal canal or foraminal narrowing. T12-L1: No disc herniation. No spinal canal or foraminal narrowing. L1-L2: No disc herniation. No spinal canal or foraminal narrowing. L2-L3: Mild disc osteophyte complex. Prominent dorsal epidural fat. Moderate spinal canal narrowing. Bilateral facet hypertrophy. Mild bilateral foraminal narrowing. Left foraminal disc protrusion. Findings have progressed since prior. L3-L4: Mild disc osteophyte complex. Bilateral facet hypertrophy. Narrowing of lateral recesses. Moderate spinal canal narrowing. Moderate to severe bilateral foraminal narrowing. Small right foraminal disc protrusion. Findings have progressed since prior. L4-L5: Mild disc osteophyte complex with central disc protrusion. Severe bilateral facet hypertrophy. Trefoil configuration of the spinal canal. Severe spinal canal narrowing. Effacement lateral recesses. Severe bilateral foraminal narrowing with bilateral foraminal disc extrusion. Findings have progressed since prior. L5-S1: No disc herniation. Severe bilateral facet hypertrophy. Narrowing of lateral recesses. Severe bilateral foraminal narrowing. IMPRESSION: 1. Surgical changes of posterior decompression at L3-L4 and L4-L5. 2. Fluid signal within the discs at L4-L5 and to a lesser degree at L3-L4. No associated enhancement. Mild edematous endplate changes at L4-L5. Findings are equivocal for early osteomyelitis/discitis versus degenerative changes. 3. Spinal canal narrowing at L4-L5.. Moderate spinal canal narrowing at L3-L4 and L2-L3. 4. Severe bilateral foraminal narrowing at L4-L5 and L5-S1. Moderate to severe bilateral foraminal narrowing at L3-L4. 5. Otherwise, multilevel degenerative changes of the lumbar spine as described. 6. No definite visualized epidural fluid collection within the limits of motion artifact. Report Dictated on Final Dictated: 2019 7:16 pm Dictating Physician: MD MEDEIROS NEIL Signed Date and Time: 2019 7:27 pm Signed by: MD MEDEIROS NEIL Transcribed Date and Time: 2019 7:16 Normal [facility] CBC Auto Differentialon 10-2 Absolute Baso # 0.1 10*3/uL 0 - 0.2 10*3/uL [place] Absolute Neut # 6.2 10*3/uL 1.8 - 7 10*3/uL [place] Basophils/100 WBC (Bld) 0.9 % 0 - 2 % [place] Eosinophils (Bld) [#/Vol] 0.2 10*3/uL 0 - 0.5 10*3/uL [place] Eosinophils/100 WBC (Bld) 1.8 % 1 - 6 % [place] Erythrocyte distribution width (RBC) [Ratio] 15.1 % High 11.5 - 14.5 % [place] Granulocytes/100 WBC (Bld) 70.7 % 40 - 80 % [place] Hematocrit (Bld) [Volume fraction] 33.5 % Low 40 - 52 % [place] Hemoglobin (Bld) [Mass/Vol] 11.0 g/dL Low 13 - 18 g/dL [place] Interpretation and review of laboratory results Abnormal [place] Lymphocytes (Bld) [#/Vol] 1.8 10*3/uL 1 - 4.3 10*3/uL [place] Lymphocytes/100 WBC (Bld) 20.7 % 20 - 40 % [place] MCH (RBC) [Entitic mass] 28.0 pg 26 - 34 pg [place] MCHC (RBC) [Mass/Vol] 32.9 % 32 - 36 % [place] MCV (RBC) [Entitic vol] 85.2 fL 80 - 98 fL [place] Monocytes (Bld) [#/Vol] 0.5 10*3/uL 0 - 0.8 10*3/uL [place] Monocytes/100 WBC (Bld) 5.9 % 2 - 10 % [place] Platelet mean volume (Bld) [Entitic vol] 7.9 fL 7.4 - 10.4 fL [place] Platelets (Bld) [#/Vol] 250 10*3/uL 140 - 440 10*3/uL [place] RBC (Bld) [#/Vol] 3.93 10*6/uL Low 4.4 - 5.9 10*6/uL [place] WBC (Bld) [#/Vol] 8.8 10*3/uL 3.6 - 10.7 10*3/uL [place] Test Performed by [facility], [address] [place] [id number] [place] [address] Comp Metabolic Panelon 03-21 ALP [Catalytic activity/Vol] 158 U/L High 38-126 [facility] Comment on above: Performed By: #### H EMOG, DDI2, BMP3, LIPA4, TROPN, BNP3 #### [address] [address] [place] [id number] ALT [Catalytic activity/Vol] 17 U/L Normal 13-69 [facility] Comment on above: Performed By: #### H EMOG, DDI2, BMP3, LIPA4, TROPN, BNP3 #### [address] [phone] Calcium [Mass/Vol] 8.9 mg/dL Normal 8.4-10.4 [facility] Comment on above: Performed By: #### H EMOG, DDI2, BMP3, LIPA4, TROPN, BNP3 #### [address] [phone] Glucose [Mass/Vol] 102 mg/dL High 70-100 [facility] Comment on above: Performed By: #### H EMOG, DDI2, BMP3, LIPA4, TROPN, BNP3 #### [address] [phone] Protein [Mass/Vol] 7.1 g/dL Normal 6.3-8.2 [facility] Comment on above: Performed By: #### H EMOG, DDI2, BMP3, LIPA4, TROPN, BNP3 #### [address] [address] [place], [place] Urea nitrogen [Mass/Vol] 14 mg/dL Normal 7-20 [facility] Comment on above: Performed By: #### H EMOG, DDI2, BMP3, LIPA4, TROPN, BNP3 #### [address] [address] [address], [place] Anion gap [Moles/Vol] 9 Normal [facility] Comment on above: Performed By: #### H EMOG, DDI2, BMP3, LIPA4, TROPN, BNP3 #### [address] [address] [place], [place] AST [Catalytic activity/Vol] 20 U/L Normal 15-46 [facility] Comment on above: Performed By: #### H EMOG, DDI2, BMP3, LIPA4, TROPN, BNP3 #### [address] [address] [place], [place] Bilirubin [Mass/Vol] 0.4 mg/dL Normal 0.2-1.3 [facility] Comment on above: Performed By: #### H EMOG, DDI2, BMP3, LIPA4, TROPN, BNP3 #### [address] [address] [address], [place] CO2 [Moles/Vol] 25 mmol/L Normal 22-30 [facility] Comment on above: Performed By: #### H EMOG, DDI2, BMP3, LIPA4, TROPN, BNP3 #### [address] [address] [address], [place] Creatinine [Mass/Vol] 0.71 mg/dL Normal 0.52-1.25 [facility] Comment on above: Performed By: #### H EMOG, DDI2, BMP3, LIPA4, TROPN, BNP3 #### [address] [address] [place], [place] GFR/1.73 sq M predicted among blacks MDRD (S/P/Bld) [Vol rate/Area] mL/min/{1.73_m2} Normal >60 [facility] Comment on above: Performed By: #### H EMOG, DDI2, BMP3, LIPA4, TROPN, BNP3 #### [address] [address] [place], [place] GFR/1.73 sq M predicted among non-blacks MDRD (S/P/Bld) [Vol rate/Area] mL/min/{1.73_m2} Normal >60 [facility] Comment on above: Result Comment: Sour ce- MDRD equation with creatinine calibration to IDMS(NKDEP) eGFR not recommended for drug dose adjustment Performed By: #### H EMOG, DDI2, BMP3, LIPA4, TROPN, BNP3 #### [address] Chloride [Moles/Vol] 105 mmol/L Normal 98-107 [facility] Comment on above: Performed By: #### H EMOG, DDI2, BMP3, LIPA4, TROPN, BNP3 #### [address] Potassium [Moles/Vol] 4.0 mmol/L Normal 3.5-5.1 [facility] Comment on above: Performed By: #### H EMOG, DDI2, BMP3, LIPA4, TROPN, BNP3 #### [address] Sodium [Moles/Vol] 139 mmol/L Normal 135-145 [facility] Comment on above: Performed By: #### H EMOG, DDI2, BMP3, LIPA4, TROPN, BNP3 #### [address] Albumin [Mass/Vol] 3.7 g/dL Normal 3.5-5.0 [facility] Comment on above: Performed By: #### H EMOG, DDI2, BMP3, LIPA4, TROPN, BNP3 #### [address] Comprehensive Metabolic Pane [place] 03-21-2019 Albumin [Mass/Vol] 3.7 g/dL 3.5 - 5 g/dL [place] ALP [Catalytic activity/Vol] 158 U/L High 38 - 126 U/L [place] ALT [Catalytic activity/Vol] 17 U/L 13 - 69 U/L [place] Anion gap [Moles/Vol] 9 mmol/L [place] AST [Catalytic activity/Vol] 20 U/L 15 - 46 U/L [place] Bilirubin Ql (U) 0.4 mg/dL 0.2 - 1.3 mg/dL [place] Calcium [Mass/Vol] 8.9 mg/dL 8.4 - 10. 4 mg/dL [place] Chloride [Moles/Vol] 105 mmol/L 98 - 10 7 mmol/L [place] CO2 [Moles/Vol] 25 mmol/L 22 - 30 mmol/L [place] Creatinine [Mass/Vol] 0.71 mg/dL 0.52 - 1.25 mg/dL [place] EGFR IF NonAfrican [place] >60.0 >60 mL/min [place] Comment on above: Source- MDRD equatio n with creatinine calibration to IDMS(NKDEP) eGFR not recommended for drug dose adjustment GFR/1.73 sq M predicted among blacks MDRD (S/P/Bld) [Vol rate/Area] mL/min/{1.73_m2} >60 mL/min [place] Glucose [Mass/Vol] 102 mg/dL High 70 - 100 mg/dL [place] Interpretation and review of laboratory results Abnormal [place] Potassium [Moles/Vol] 4.0 mmol/L 3.5 - 5.1 mmol/L [place] Protein [Mass/Vol] 7.1 g/dL 6.3 - 8.2 g/dL [place] Sodium [Moles/Vol] 139 mmol/L 135 - 145 mmol/L [place] Urea nitrogen [Mass/Vol] 14 mg/dL 7 - 20 mg/dL [place] Test Performed by [facility], [address] [place] [id number] [place] Drugs of Abuseon 03-21-2019 Phencyclidine (PCP), Ur Negative Normal [facility] Comment on above: Result Comment: The expected value for all of the drugs listed above is Negative. The following drugs or drug groups have been screened for by Immunoassay at the following thresholds: Amphetamine class (1000 ng/mL), Barbiturates (200 ng/mL), Benzodiazepines (200 ng/mL), Cocaine (300 ng/mL), Methadone (300 ng/mL), Opiates (300 ng/mL), Oxycodone (100 ng/mL), and PCP (25 ng/mL). NOTE: These results are for medical treatment only. Analysis performed using non-forensic procedures. POSITIVE results are NOT confirmed by a more specific alternative method unless requested. If confirmation is needed, request confirmation under separate order. Performed By: #### H EMOG, DDI2, BMP3, LIPA4, TROPN, BNP3 #### [facility] [address] [place], [place] Cocaine, Ur Negative Normal [facility] Comment on above: Performed By: #### H EMOG, DDI2, BMP3, LIPA4, TROPN, BNP3 #### [facility] [address] [place], [place] Methadone, Ur Negative Normal [facility] Comment on above: Performed By: #### H EMOG, DDI2, BMP3, LIPA4, TROPN, BNP3 #### [facility] [address] [place], [place] Opiates, Ur Positive Normal [facility] Comment on above: Performed By: #### H EMOG, DDI2, BMP3, LIPA4, TROPN, BNP3 #### [facility] [address] [place], [place] Amphetamines, Ur Positive Normal [facility] Comment on above: Performed By: #### H EMOG, DDI2, BMP3, LIPA4, TROPN, BNP3 #### [facility] [address] [place], [place] Barbiturates, Ur Negative Normal [facility] Comment on above: Performed By: #### H EMOG, DDI2, BMP3, LIPA4, TROPN, BNP3 #### [address] [address] [address], [place] Benzodiazepines, Ur Negative Normal [facility] Comment on above: Performed By: #### H EMOG, DDI2, BMP3, LIPA4, TROPN, BNP3 #### [address] [address] [address], [place] Oxycodone/Oxymorphine ,Ur Positive Normal [facility] Comment on above: Performed By: #### H EMOG, DDI2, BMP3, LIPA4, TROPN, BNP3 #### [address] Hemogram w/ Autodiffon 03-21 Abs Baso Cnt 0.1 10*3/uL Normal 0.0-0.2 [facility] Comment on above: Performed By: #### H EMOG, DDI2, BMP3, LIPA4, TROPN, BNP3 #### [address] [address] [address] [place], [place] Abs Neutrophile Cnt 6.2 10*3/uL Normal 1.8-7.0 [facility] Comment on above: Performed By: #### H EMOG, DDI2, BMP3, LIPA4, TROPN, BNP3 #### [address] [address] [address], [place] Basophils/100 WBC (Bld) 0.9 % Normal 0.0-2.0 [facility] Comment on above: Performed By: #### H EMOG, DDI2, BMP3, LIPA4, TROPN, BNP3 #### [address] Eosinophils (Bld) [#/Vol] 0.2 10*3/uL Normal 0.0-0.5 [facility] Comment on above: Performed By: #### H EMOG, DDI2, BMP3, LIPA4, TROPN, BNP3 #### [address] Eosinophils/100 WBC (Bld) 1.8 % Normal 1.0-6.0 [facility] Comment on above: Performed By: #### H EMOG, DDI2, BMP3, LIPA4, TROPN, BNP3 #### [address] Erythrocyte distribution width (RBC) [Ratio] 15.1 % High 11.5-14.5 [facility] Comment on above: Performed By: #### H EMOG, DDI2, BMP3, LIPA4, TROPN, BNP3 #### [address] Granulocytes/100 WBC (Bld) 70.7 % Normal 40.0-80.0 [facility] Comment on above: Performed By: #### H EMOG, DDI2, BMP3, LIPA4, TROPN, BNP3 #### [address] Hematocrit (Bld) [Volume fraction] 33.5 % Low 40.0-52.0 [facility] Comment on above: Performed By: #### H EMOG, DDI2, BMP3, LIPA4, TROPN, BNP3 #### [address] Hemoglobin (Bld) [Mass/Vol] 11.0 g/dL Low 13.0-18.0 [facility] Comment on above: Performed By: #### H EMOG, DDI2, BMP3, LIPA4, TROPN, BNP3 #### [address] Lymphocytes (Bld) [#/Vol] 1.8 10*3/uL Normal 1.0-4.3 [facility] Comment on above: Performed By: #### H EMOG, DDI2, BMP3, LIPA4, TROPN, BNP3 #### [address] Lymphocytes/100 WBC (Bld) 20.7 % Normal 20.0-40.0 [facility] Comment on above: Performed By: #### H EMOG, DDI2, BMP3, LIPA4, TROPN, BNP3 #### [address] [address] [address], [place] MCH (RBC) [Entitic mass] 28.0 pg Normal 26.0-34.0 [facility] Comment on above: Performed By: #### H EMOG, DDI2, BMP3, LIPA4, TROPN, BNP3 #### [address] MCHC (RBC) [Mass/Vol] 32.9 % Normal 32.0-36.0 [facility] Comment on above: Performed By: #### H EMOG, DDI2, BMP3, LIPA4, TROPN, BNP3 #### [address] MCV (RBC) [Entitic vol] 85.2 fL Normal 80.0-98.0 [facility] Comment on above: Performed By: #### H EMOG, DDI2, BMP3, LIPA4, TROPN, BNP3 #### [address] Monocytes (Bld) [#/Vol] 0.5 10*3/uL Normal 0.0-0.8 [facility] Comment on above: Performed By: #### H EMOG, DDI2, BMP3, LIPA4, TROPN, BNP3 #### [address] Monocytes/100 WBC (Bld) 5.9 % Normal 2.0-10.0 [facility] Comment on above: Performed By: #### H EMOG, DDI2, BMP3, LIPA4, TROPN, BNP3 #### [address] Platelet mean volume (Bld) [Entitic vol] 7.9 fL Normal 7.4-10.4 [facility] Comment on above: Performed By: #### H EMOG, DDI2, BMP3, LIPA4, TROPN, BNP3 #### [address] Platelets (Bld) [#/Vol] 250 10*3/uL Normal 140-440 [facility] Comment on above: Performed By: #### H EMOG, DDI2, BMP3, LIPA4, TROPN, BNP3 #### [facility] [address] [place] [address] RBC (Bld) [#/Vol] 3.93 10*6/uL Low 4.40-5.90 [facility] Comment on above: Performed By: #### H EMOG, DDI2, BMP3, LIPA4, TROPN, BNP3 #### [facility] [address] [place] [address] WBC (Bld) [#/Vol] 8.8 10*3/uL Normal 3.6-10.7 [facility] Comment on above: Performed By: #### H EMOG, DDI2, BMP3, LIPA4, TROPN, BNP3 #### [address] [address] URINE DRUG SCREENon 03-21-20 19 Amphetamines, urine Positive [facility] [place] Barbit[place]ates, Ur Negative [facility] [place] Benzodiazepine Ur Qual Negative [facility] [place] Cocaine Metabolites, Ur Negative [facility] [place] Meth[place]one, Urine Negative [facility] [place] Opiates, Urine Positive [facility] [place] Oxy[place] Screen, Ur Positive [facility] [place] PCP, Urine Negative [facility] [place] Comment on above: The expected value f or all of the drugs listed above is Negative. The following drugs or drug groups have been screened for by Immunoassay at the following thresholds: Amphetamine class (1000 ng/mL), Barbiturates (200 ng/mL), Benzodiazepines (200 ng/mL), Cocaine (300 ng/mL), Methadone (300 ng/mL), Opiates (300 ng/mL), Oxycodone (100 ng/mL), and PCP (25 ng/mL). NOTE: These results are for medical treatment only. Analysis performed using non-forensic procedures. POSITIVE results are NOT confirmed by a more specific alternative method unless requested. If confirmation is needed, request confirmation under separate order. Test Performed by [facility], [address] [place], [place] [address] [address] [facility], [place] Basic Metabolic Panelon 10- Calcium [Mass/Vol] 8.2 mg/dL Low 8.4-10.4 [facility] Comment on above: Performed By: #### H EMOG, DDI2, BMP3, LIPA4, TROPN, BNP3 #### [facility] [address] [place], [place] Glucose [Mass/Vol] 100 mg/dL Normal 70-100 [facility] Comment on above: Performed By: #### H EMOG, DDI2, BMP3, LIPA4, TROPN, BNP3 #### [place] [address] [address] [place], [place] Anion gap [Moles/Vol] 7 Normal [facility] Comment on above: Performed By: #### H EMOG, DDI2, BMP3, LIPA4, TROPN, BNP3 #### [place] [address] [place], [place] CO2 [Moles/Vol] 24 mmol/L Normal 22-30 [facility] Comment on above: Performed By: #### H EMOG, DDI2, BMP3, LIPA4, TROPN, BNP3 #### [place] [place], [place] Creatinine [Mass/Vol] 0.62 mg/dL Normal 0.52-1.25 [facility] Comment on above: Performed By: #### H EMOG, DDI2, BMP3, LIPA4, TROPN, BNP3 #### [place] [address] [address] [place], [place] GFR/1.73 sq M predicted among blacks MDRD (S/P/Bld) [Vol rate/Area] mL/min/{1.73_m2} Normal >60 [facility] Comment on above: Performed By: #### H EMOG, DDI2, BMP3, LIPA4, TROPN, BNP3 #### [place] [address] [address] [place], [place] GFR/1.73 sq M predicted among non-blacks MDRD (S/P/Bld) [Vol rate/Area] mL/min/{1.73_m2} Normal >60 [facility] Comment on above: Result Comment: Sour ce- MDRD equation with creatinine calibration to IDMS(NKDEP) eGFR not recommended for drug dose adjustment Performed By: #### H EMOG, DDI2, BMP3, LIPA4, TROPN, BNP3 #### [place] [address] [address] [place], [place] Urea nitrogen [Mass/Vol] 11 mg/dL Normal 7-20 [facility] Comment on above: Performed By: #### H EMOG, DDI2, BMP3, LIPA4, TROPN, BNP3 #### [place] [place], [place] Chloride [Moles/Vol] 108 mmol/L High 98-107 [facility] Comment on above: Performed By: #### H EMOG, DDI2, BMP3, LIPA4, TROPN, BNP3 #### [place] [place], [place] Potassium [Moles/Vol] 3.3 mmol/L Low 3.5-5.1 [facility] Comment on above: Performed By: #### H EMOG, DDI2, BMP3, LIPA4, TROPN, BNP3 #### [place] [address] [place], [place] Sodium [Moles/Vol] 139 mmol/L Normal 135-145 [facility] Comment on above: Performed By: #### H EMOG, DDI2, BMP3, LIPA4, TROPN, BNP3 #### [place] [address] [place], [place] Anion gap [Moles/Vol] 7 mmol/L [facility], [place] Calcium [Mass/Vol] 8.2 mg/dL Low 8.4 - 10. 4 mg/dL [facility], [place] Chloride [Moles/Vol] 108 mmol/L High 98 - 10 7 mmol/L [place] CO2 [Moles/Vol] 24 mmol/L 22 - 30 mmol/L [place] Creatinine [Mass/Vol] 0.62 mg/dL 0.52 - 1.25 mg/dL [place] EGFR IF NonAfrican [place]ian >60.0 >60 mL/min [place] Comment on above: Source- MDRD equatio n with creatinine calibration to IDMS(NKDEP) eGFR not recommended for drug dose adjustment GFR/1.73 sq M predicted among blacks MDRD (S/P/Bld) [Vol rate/Area] mL/min/{1.73_m2} >60 mL/min [place] Glucose [Mass/Vol] 100 mg/dL 70 - 100 mg/dL [place] Potassium [Moles/Vol] 3.3 mmol/L Low 3.5 - 5.1 mmol/L [place] Sodium [Moles/Vol] 139 mmol/L 135 - 145 mmol/L [place] Urea nitrogen [Mass/Vol] 11 mg/dL 7 - 20 mg/dL [place] C-Reactive Proteinon CRP [Mass/Vol] 40.7 mg/L High 0.0-6.0 [facility] Comment on above: Result Comment: . Performed By: #### H EMOG, DDI2, BMP3, LIPA4, TROPN, BNP3 #### [facility] [address] [place], [place] CRP [Mass/Vol] 40.7 mg/L High 0 - 6 mg/L [place] Comment on above: . Hemogramon 03-20-2019 Erythrocyte distribution width (RBC) [Ratio] 15.5 % High 11.5-14.5 [facility] Comment on above: Performed By: #### H EMOG, DDI2, BMP3, LIPA4, TROPN, BNP3 #### [facility] [address] [place], [place] Hematocrit (Bld) [Volume fraction] 33.2 % Low 40.0-52.0 [facility] Comment on above: Performed By: #### H EMOG, DDI2, BMP3, LIPA4, TROPN, BNP3 #### [facility] [address] [place], [place] Hemoglobin (Bld) [Mass/Vol] 10.8 g/dL Low 13.0-18.0 [facility] Comment on above: Performed By: #### H EMOG, DDI2, BMP3, LIPA4, TROPN, BNP3 #### [address] MCH (RBC) [Entitic mass] 27.7 pg Normal 26.0-34.0 [facility] Comment on above: Performed By: #### H EMOG, DDI2, BMP3, LIPA4, TROPN, BNP3 #### [place] [address] [place], [place] MCHC (RBC) [Mass/Vol] 32.7 % Normal 32.0-36.0 [facility] Comment on above: Performed By: #### H EMOG, DDI2, BMP3, LIPA4, TROPN, BNP3 #### [address] MCV (RBC) [Entitic vol] 84.8 fL Normal 80.0-98.0 [facility] Comment on above: Performed By: #### H EMOG, DDI2, BMP3, LIPA4, TROPN, BNP3 #### [address] Platelet mean volume (Bld) [Entitic vol] 7.8 fL Normal 7.4-10.4 [facility] Comment on above: Performed By: #### H EMOG, DDI2, BMP3, LIPA4, TROPN, BNP3 #### [address] Platelets (Bld) [#/Vol] 269 10*3/uL Normal 140-440 [facility] Comment on above: Performed By: #### H EMOG, DDI2, BMP3, LIPA4, TROPN, BNP3 #### [address] RBC (Bld) [#/Vol] 3.91 10*6/uL Low 4.40-5.90 [facility] Comment on above: Performed By: #### H EMOG, DDI2, BMP3, LIPA4, TROPN, BNP3 #### [facility] [address] [place] [address] WBC (Bld) [#/Vol] 8.9 10*3/uL Normal 3.6-10.7 [facility] Comment on above: Performed By: #### H EMOG, DDI2, BMP3, LIPA4, TROPN, BNP3 #### [facility] [address] [place] [address] Hemogram (CBC)on 03-20-2019 Erythrocyte distribution width (RBC) [Ratio] 15.5 % High 11.5 - 14.5 % [place] Hematocrit (Bld) [Volume fraction] 33.2 % Low 40 - 52 % [place] Hemoglobin (Bld) [Mass/Vol] 10.8 g/dL Low 13 - 18 g/dL [place] Interpretation and review of laboratory results Abnormal [place] MCH (RBC) [Entitic mass] 27.7 pg 26 - 34 pg [place] MCHC (RBC) [Mass/Vol] 32.7 % 32 - 36 % [place] MCV (RBC) [Entitic vol] 84.8 fL 80 - 98 fL [place] Platelet mean volume (Bld) [Entitic vol] 7.8 fL 7.4 - 10.4 fL [place] Platelets (Bld) [#/Vol] 269 10*3/uL 140 - 440 10*3/uL [place] RBC (Bld) [#/Vol] 3.91 10*6/uL Low 4.4 - 5.9 10*6/uL [place] WBC (Bld) [#/Vol] 8.9 10*3/uL 3.6 - 10.7 10*3/uL [place] Test Performed by [facility], [address] [place] [address] [place] Otheron 03-20-2019 Interpretation and review of laboratory results Abnormal [place] Test Performed by [facility], [address] [place] [address] [place] Sed Rateon 03-20-2019 Sed Rate 45 mm/h High 0-10 [place] Comment on above: Performed By: #### H EMOG, DDI2, BMP3, LIPA4, TROPN, BNP3 #### [facility] [address] [place] [address] Sedimentation Rateon 019 Interpretation and review of laboratory results Abnormal [place] Test Performed by [facility], [address] [place] [address] [place] Comprehensive Panelon 2018 ALP [Catalytic activity/Vol] 177 U/L High 45-117 [facility] Comment on above: Performed By: #### P BNP #### [address] [address] Bilirubin [Mass/Vol] 0.4 mg/dL Normal 0.2-1.0 [facility] Comment on above: Performed By: #### P BNP #### [address] [address] Protein [Mass/Vol] 8.3 g/dL High 6.4-8.2 [facility] Comment on above: Performed By: #### P BNP #### [address] [address] ALT [Catalytic activity/Vol] 12 U/L Normal 12-78 [facility] Comment on above: Performed By: #### P BNP #### [address] [address] AST [Catalytic activity/Vol] 12 U/L Low 15-37 [facility] Comment on above: Performed By: #### P BNP #### [facility] [address] [place], [place] [address] Creatinine [Mass/Vol] 0.77 mg/dL Normal 0.67-1.17 [facility] Comment on above: Performed By: #### P BNP #### [address] [address] Albumin [Mass/Vol] 3.7 g/dL Normal 3.4-5.0 [facility] Comment on above: Performed By: #### P BNP #### [facility] [address] [place], [place] [address] Anion gap [Moles/Vol] 11 mmol/L Normal 8-16 [facility] Comment on above: Performed By: #### P BNP #### [facility] [address] [place], [place] [address] Calcium [Mass/Vol] 8.8 mg/dL Normal 8.5-10.1 [facility] Comment on above: Performed By: #### P BNP #### [facility] [address] [place], [place] [address] CO2 [Moles/Vol] 27 mmol/L Normal 21-32 [facility] Comment on above: Performed By: #### P BNP #### [facility] [address] [place], [place] [address] Glucose [Mass/Vol] 103 mg/dL High 70-99 [facility] Comment on above: Performed By: #### P BNP #### [facility] [address] [place], [place] [address] Urea nitrogen [Mass/Vol] 11 mg/dL Normal 7-18 [facility] Comment on above: Performed By: #### P BNP #### [facility] [address] [place], [place] [address] Chloride [Moles/Vol] 104 mmol/L Normal 98-107 [facility] Comment on above: Performed By: #### P BNP #### [facility] [address] [place], [place] [address] Potassium [Moles/Vol] 3.7 mmol/L Normal 3.5-5.1 [facility] Comment on above: Performed By: #### P BNP #### [facility] [address] [place], [place] [address] Sodium [Moles/Vol] 138 mmol/L Normal 136-145 [facility] Comment on above: Performed By: #### P BNP #### [address] [address] [facility] Troponin Ion 03-19-2019 Troponin I.cardiac [Mass/Vol] ng/mL Normal 0.015-0.04 5 [facility] Comment on above: Performed By: #### P BNP #### [facility] [address] [place] [address] MDRD GFRon 03-19-2019 GFR/1.73 sq M predicted among non-blacks MDRD (S/P/Bld) [Vol rate/Area] mL/min/{1.73_m2} Normal >60mL/min/ 1.73m2 [facility] Comment on above: Result Comment: If t he patient is , multiply the result by 1.210. Performed By: #### P BNP #### [place] [address] Magnesium Bloodon 03-19-2019 Magnesium [Mass/Vol] 2.1 mg/dL Normal 1.6-2.6 [facility] Comment on above: Performed By: #### P BNP #### [place] [address] Troponin Ion 03-19-2019 Troponin I.cardiac [Mass/Vol] ng/mL Normal 0.015-0.[address] [place] [address] Comment on above: Performed By: #### G FR #### [place] [address] Troponin I.cardiac [Mass/Vol] ng/mL Normal 0.015-0.[address] [place] [address] Comment on above: Performed By: #### P BNP #### [place] [address] XR CHEST 2V FRONTAL/LATon XR CHEST 2V FRONTAL/LAT * * *Final Report* * * DATE OF EXAM: Mar 18 2019 10:11PM AKX [id number] - XR CHEST 2V FRONTAL/LAT / PROCEDURE REASON: Chest pain * * * * Physician Interpretation * * * * EXAMINATION: CHEST RADIOGRAPH (2 VIEW FRONTAL & LATERAL) CLINICAL HISTORY: Chest pain MQ: XC2_5 Comparison: 01/11/2019 RESULT: Lines, tubes, and devices: None. Lungs and pleura: No consolidation. No lung mass. No pleural effusion. Cardiomediastinal silhouette: Normal cardiomediastinal silhouette. Other: Mild thoracic spondylosis. IMPRESSION: No acute radiographic abnormality. Gill Box Fixer: PSCB Transcribe Date/Time: Mar 18 2019 10:23P Dictated by : MAYRA COPE MD This examination was interpreted and the report reviewed and electronically signed by: MAYRA COPE MD on Mar 18 2019 10:23PM EST Normal [facility] Hemogramon 03-18-2019 Erythrocyte distribution width (RBC) [Ratio] 14.4 % Normal 11.6-14.4 [facility] Comment on above: Performed By: #### P BNP #### [facility] [address] [place] [address] Hematocrit (Bld) [Volume fraction] 38.5 % Low 40.1-51.0 [facility] Comment on above: Performed By: #### P BNP #### [place] [address] Hemoglobin (Bld) [Mass/Vol] 11.5 g/dL Low 13.7-17.5 [facility] Comment on above: Performed By: #### P BNP #### [place] [address] MCH (RBC) [Entitic mass] 27.2 pg Normal 25.7-32.2 [facility] Comment on above: Performed By: #### P BNP #### [place] [address] MCHC (RBC) [Mass/Vol] 29.9 % Low 32.3-36.5 [facility] Comment on above: Performed By: #### P BNP #### [place] [address] MCV (RBC) [Entitic vol] 91.0 fL Normal 83.2-95.6 [facility] Comment on above: Performed By: #### P BNP #### [place] [address] Platelet mean volume (Bld) [Entitic vol] 9.7 fL Normal 8.7-12.0 [facility] Comment on above: Performed By: #### P BNP #### [facility] [address] [place], [place] [address] Platelets (Bld) [#/Vol] 262 thou/cmm Normal 141-365 [facility] Comment on above: Performed By: #### P BNP #### [facility] [address] [place], [place] [address] RBC (Bld) [#/Vol] 4.23 mil/cmm Low 4.63-6.08 [facility] Comment on above: Performed By: #### P BNP #### [facility] [address] [place], [place] [address] RDW SD 47.8 fl High 36.1-45.8 [facility] Comment on above: Performed By: #### P BNP #### [facility] [address] [place], [place] [address] WBC (Bld) [#/Vol] 12.68 thou/cmm High 4.23-9.07 [facility] Comment on above: Performed By: #### P BNP #### [facility] [address] [place], [place] [address] CBC Auto Differentialon 10-0 Absolute Baso # 0.1 10*3/uL 0 - 0.2 10*3/uL [place] Absolute Neut # 5.3 10*3/uL 1.8 - 7 10*3/uL [place] Basophils/100 WBC (Bld) 1.3 % 0 - 2 % [place] Eosinophils (Bld) [#/Vol] 0.1 10*3/uL 0 - 0.5 10*3/uL [place] Eosinophils/100 WBC (Bld) 1.8 % 1 - 6 % [place] Erythrocyte distribution width (RBC) [Ratio] 15.0 % High 11.5 - 14.5 % [place] Granulocytes/100 WBC (Bld) 71.3 % 40 - 80 % [place] Hematocrit (Bld) [Volume fraction] 31.9 % Low 40 - 52 % [place] Hemoglobin (Bld) [Mass/Vol] 10.7 g/dL Low 13 - 18 g/dL [place] Lymphocytes (Bld) [#/Vol] 1.6 10*3/uL 1 - 4.3 10*3/uL [place] Lymphocytes/100 WBC (Bld) 21.6 % 20 - 40 % [place] MCH (RBC) [Entitic mass] 28.3 pg 26 - 34 pg [place] MCHC (RBC) [Mass/Vol] 33.5 % 32 - 36 % [place] MCV (RBC) [Entitic vol] 84.6 fL 80 - 98 fL [place] Monocytes (Bld) [#/Vol] 0.3 10*3/uL 0 - 0.8 10*3/uL [place] Monocytes/100 WBC (Bld) 4.0 % 2 - 10 % [place] Platelet mean volume (Bld) [Entitic vol] 7.6 fL 7.4 - 10.4 fL [place] Platelets (Bld) [#/Vol] 230 10*3/uL 140 - 440 10*3/uL [place] RBC (Bld) [#/Vol] 3.77 10*6/uL Low 4.4 - 5.9 10*6/uL [place] WBC (Bld) [#/Vol] 7.4 10*3/uL 3.6 - 10.7 10*3/uL [place] Test Performed by [facility], [address] [place] [address] [place] CKon 03-09-2019 CK [Catalytic activity/Vol] 138 U/L Normal 30-170 [facility] Comment on above: Performed By: #### H EMDF, CMP3, CK3, TROPN #### [address] [address] Total CK 138 U/L 30 - 170 U/L [place] Comp Metabolic Panelon 03-09 ALT [Catalytic activity/Vol] 14 U/L Normal 13-69 [place] Comment on above: Performed By: #### H EMDF, CMP3, CK3, TROPN #### [facility] [address] [place], [place] Calcium [Mass/Vol] 9.1 mg/dL Normal 8.4-10.4 [place] Comment on above: Performed By: #### H EMDF, CMP3, CK3, TROPN #### [place] [address] [place], [place] Glucose [Mass/Vol] 102 mg/dL High 70-100 [place] Comment on above: Performed By: #### H EMDF, CMP3, CK3, TROPN #### [place] [address] [place], [place] ALP [Catalytic activity/Vol] 164 U/L High 38-126 [place] Comment on above: Performed By: #### H EMDF, CMP3, CK3, TROPN #### [place] [address] [place], [place] Anion gap [Moles/Vol] 8 Normal [facility] Comment on above: Performed By: #### H EMDF, CMP3, CK3, TROPN #### [place] [address] [address] [place], [place] AST [Catalytic activity/Vol] 30 U/L Normal 15-46 [place] Comment on above: Performed By: #### H EMDF, CMP3, CK3, TROPN #### [place] [address] [place], [place] Bilirubin [Mass/Vol] 0.5 mg/dL Normal 0.2-1.3 [facility] Comment on above: Performed By: #### H EMDF, CMP3, CK3, TROPN #### [place] [address] [address] [place], [place] CO2 [Moles/Vol] 27 mmol/L Normal 22-30 [place] Comment on above: Performed By: #### H EMDF, CMP3, CK3, TROPN #### [place] [address] [place] [address] Creatinine [Mass/Vol] 0.76 mg/dL Normal 0.52-1.25 [place] Comment on above: Performed By: #### H EMDF, CMP3, CK3, TROPN #### [facility] [address] [place] [address] GFR/1.73 sq M predicted among blacks MDRD (S/P/Bld) [Vol rate/Area] mL/min/{1.73_m2} Normal >60 [place] Comment on above: Performed By: #### H EMDF, CMP3, CK3, TROPN #### [place] [address] [place] [address] GFR/1.73 sq M predicted among non-blacks MDRD (S/P/Bld) [Vol rate/Area] mL/min/{1.73_m2} Normal >60 [facility] Comment on above: Result Comment: Sour ce- MDRD equation with creatinine calibration to IDMS(NKDEP) eGFR not recommended for drug dose adjustment Performed By: #### H EMDF, CMP3, CK3, TROPN #### [place] [address] [place] [address] Protein [Mass/Vol] 7.1 g/dL Normal 6.3-8.2 [place] Comment on above: Performed By: #### H EMDF, CMP3, CK3, TROPN #### [place] [address] [place] [address] Urea nitrogen [Mass/Vol] 13 mg/dL Normal 7-20 [place] Comment on above: Performed By: #### H EMDF, CMP3, CK3, TROPN #### [facility] [place] [address] [place] [address] Chloride [Moles/Vol] 105 mmol/L Normal 98-107 [place] Comment on above: Performed By: #### H EMDF, CMP3, CK3, TROPN #### [place] [address] [place] [address] Potassium [Moles/Vol] 3.8 mmol/L Normal 3.5-5.1 [place] Comment on above: Performed By: #### H EMDF, CMP3, CK3, TROPN #### [facility] [address] [place], [place] Sodium [Moles/Vol] 141 mmol/L Normal 135-145 [place] Comment on above: Performed By: #### H EMDF, CMP3, CK3, TROPN #### [facility] [address] [place], [place] Albumin [Mass/Vol] 3.7 g/dL Normal 3.5-5.0 [place] Comment on above: Performed By: #### H EMDF, CMP3, CK3, TROPN #### [facility] [address] [place], [place] Comprehensive Metabolic Pane [place] 03-09-2019 Anion gap [Moles/Vol] 8 mmol/L [place] Bilirubin Ql (U) 0.5 mg/dL 0.2 - 1.3 mg/dL [place] EGFR IF NonAfrican [place] >60.0 >60 mL/min [place] Comment on above: Source- MDRD equatio n with creatinine calibration to IDMS(NKDEP) eGFR not recommended for drug dose adjustment EKG 12 Lead[place] 03-09-2019 Kenny, [facility] Incoming Cardiology Results From [facility] - 03/09/2019 6:48 PM EDT [facility] Test Date: 2019-03-08 Pat Name: Natalie Gerber Department: 01 Room: 1533 Gender: M Director Epidemiology: MJ : 1960 Requested By: Order Number: [id number] Dimas MD: Marcos Burgos Measurements Intervals [place] Rate: 92 P: 40 ND: 140 QRS: 40 QRSD: 89 T: 91 QT: 364 QTc: 451 Interpretive Statements Sinus rhythm Abnormal R-wave progression, early transition Borderline T wave abnormalities Electronically Signed On 03-09-2019 18:47:18 EDT by Marcos Burgos [facility] Test Date: 2019-03-08 Pat Name: Natalie Gerber Department: 01 Room: 1533 Gender: M Director Epidemiology: IVONNE : 1960 Requested By: Order Number: [id number] Dimas MD: Marcos Burgos Measurements Intervals [place] Rate: 92 P: 40 ND: 140 QRS: 40 QRSD: 89 T: 91 QT: 364 QTc: 451 Interpretive Statements Sinus rhythm Abnormal R-wave progression, early transition Borderline T wave abnormalities Electronically Signed On 03-09-2019 18:47:18 EDT by Marcos uBrgos [facility] [place], [place] Hemogram w/ Autodiffon 03-09 Abs Baso Cnt 0.1 10*3/uL Normal 0.0-0.2 [facility] Comment on above: Performed By: #### H EMDF, CMP3, CK3, TROPN #### [facility] [address] [place] [address] Abs Neutrophile Cnt 5.3 10*3/uL Normal 1.8-7.0 [facility] Comment on above: Performed By: #### H EMDF, CMP3, CK3, TROPN #### [facility] [address] [place] [address] Basophils/100 WBC (Bld) 1.3 % Normal 0.0-2.0 [facility] Comment on above: Performed By: #### H EMDF, CMP3, CK3, TROPN #### [facility] [address] [place] [address] Eosinophils (Bld) [#/Vol] 0.1 10*3/uL Normal 0.0-0.5 [facility] Comment on above: Performed By: #### H EMDF, CMP3, CK3, TROPN #### [facility] [address] [place] [address] Eosinophils/100 WBC (Bld) 1.8 % Normal 1.0-6.0 [facility] Comment on above: Performed By: #### H EMDF, CMP3, CK3, TROPN #### [place] [address] [place] [address] Erythrocyte distribution width (RBC) [Ratio] 15.0 % High 11.5-14.5 [facility] Comment on above: Performed By: #### H EMDF, CMP3, CK3, TROPN #### [place] [address] [address] [place], [place] Granulocytes/100 WBC (Bld) 71.3 % Normal 40.0-80.0 [facility] Comment on above: Performed By: #### H EMDF, CMP3, CK3, TROPN #### [place] [address] [address] [place], [place] Hematocrit (Bld) [Volume fraction] 31.9 % Low 40.0-52.0 [facility] Comment on above: Performed By: #### H EMDF, CMP3, CK3, TROPN #### [place] [address] [place], [place] Hemoglobin (Bld) [Mass/Vol] 10.7 g/dL Low 13.0-18.0 [facility] Comment on above: Performed By: #### H EMDF, CMP3, CK3, TROPN #### [place] [address] [address] [place] Lymphocytes (Bld) [#/Vol] 1.6 10*3/uL Normal 1.0-4.3 [facility] Comment on above: Performed By: #### H EMDF, CMP3, CK3, TROPN #### [address] Lymphocytes/100 WBC (Bld) 21.6 % Normal 20.0-40.0 [facility] Comment on above: Performed By: #### H EMDF, CMP3, CK3, TROPN #### [place] [address] [address] [place] MCH (RBC) [Entitic mass] 28.3 pg Normal 26.0-34.0 [facility] Comment on above: Performed By: #### H EMDF, CMP3, CK3, TROPN #### [address] [facility] (RBC) [Mass/Vol] 33.5 % Normal 32.0-36.0 [facility] Comment on above: Performed By: #### H EMDF, CMP3, CK3, TROPN #### [address] [address] [address] [place], [place] MCV (RBC) [Entitic vol] 84.6 fL Normal 80.0-98.0 [facility] Comment on above: Performed By: #### H EMDF, CMP3, CK3, TROPN #### [address] [address] [address] [place], [place] Monocytes (Bld) [#/Vol] 0.3 10*3/uL Normal 0.0-0.8 [facility] Comment on above: Performed By: #### H EMDF, CMP3, CK3, TROPN #### [address] [address] [address] [place], [place] Monocytes/100 WBC (Bld) 4.0 % Normal 2.0-10.0 [facility] Comment on above: Performed By: #### H EMDF, CMP3, CK3, TROPN #### [address] [address] [address] [place], [place] Platelet mean volume (Bld) [Entitic vol] 7.6 fL Normal 7.4-10.4 [facility] Comment on above: Performed By: #### H EMDF, CMP3, CK3, TROPN #### [address] [address] [address] [place], [place] Platelets (Bld) [#/Vol] 230 10*3/uL Normal 140-440 [facility] Comment on above: Performed By: #### H EMDF, CMP3, CK3, TROPN #### [address] [address] [address] [place], [place] RBC (Bld) [#/Vol] 3.77 10*6/uL Low 4.40-5.90 [facility] Comment on above: Performed By: #### H EMDF, CMP3, CK3, TROPN #### [address] [address] [place], [place] WBC (Bld) [#/Vol] 7.4 10*3/uL Normal 3.6-10.7 [facility] Comment on above: Performed By: #### H EMDF, CMP3, CK3, TROPN #### [address] Otheron 03-09-2019 Test Performed by [facility], [address] [place] [id number] [place] [address] Interpretation and review of laboratory results Abnormal [place] Troponinon 03-09-2019 Troponin I.cardiac [Mass/Vol] ng/mL 0 - 0.034 ng/mL [place] Comment on above: . Test Performed by [facility], [address] [place] [id number] [place] [address] Troponin I.cardiac [Mass/Vol] ng/mL 0 - 0.034 ng/mL [place] Comment on above: . Troponin Ion 03-09-2019 Troponin I.cardiac [Mass/Vol] ng/mL Normal 0.000-0.03 4 [facility] Comment on above: Result Comment: . Performed By: #### H EMOG, DDI2, BMP3, LIPA4, TROPN, BNP3 #### [address] Troponin I.cardiac [Mass/Vol] ng/mL Normal 0.000-0.03 4 [facility] Comment on above: Result Comment: . Performed By: #### H EMOG, DDI2, BMP3, LIPA4, TROPN, BNP3 #### [address] Basic Metabolic Panelon Calcium [Mass/Vol] 9.2 mg/dL Normal 8.4-10.4 [facility] Comment on above: Performed By: #### H EMOG, DDI2, BMP3, LIPA4, TROPN, BNP3 #### [address] Glucose [Mass/Vol] 118 mg/dL High 70-100 [facility] Comment on above: Performed By: #### H EMOG, DDI2, BMP3, LIPA4, TROPN, BNP3 #### [address] [address] [address] [place], [place] Urea nitrogen [Mass/Vol] 12 mg/dL Normal 7-20 [facility] Comment on above: Performed By: #### H EMOG, DDI2, BMP3, LIPA4, TROPN, BNP3 #### [address] [address] [place], [place] Anion gap [Moles/Vol] 10 Normal [facility] Comment on above: Performed By: #### H EMOG, DDI2, BMP3, LIPA4, TROPN, BNP3 #### [address] [address] [place], [place] CO2 [Moles/Vol] 24 mmol/L Normal 22-30 [facility] Comment on above: Performed By: #### H EMOG, DDI2, BMP3, LIPA4, TROPN, BNP3 #### [address] [address] [place], [place] Creatinine [Mass/Vol] 0.75 mg/dL Normal 0.52-1.25 [facility] Comment on above: Performed By: #### H EMOG, DDI2, BMP3, LIPA4, TROPN, BNP3 #### [address] [address] [place], [place] GFR/1.73 sq M predicted among blacks MDRD (S/P/Bld) [Vol rate/Area] mL/min/{1.73_m2} Normal >60 [facility] Comment on above: Performed By: #### H EMOG, DDI2, BMP3, LIPA4, TROPN, BNP3 #### [address] [address] [place], [place] GFR/1.73 sq M predicted among non-blacks MDRD (S/P/Bld) [Vol rate/Area] mL/min/{1.73_m2} Normal >60 [facility] Comment on above: Result Comment: Sour ce- MDRD equation with creatinine calibration to IDMS(NKDEP) eGFR not recommended for drug dose adjustment Performed By: #### H EMOG, DDI2, BMP3, LIPA4, TROPN, BNP3 #### [facility] [address] [place] [address] Potassium [Moles/Vol] 3.7 mmol/L Normal 3.5-5.1 [facility] Comment on above: Performed By: #### H EMOG, DDI2, BMP3, LIPA4, TROPN, BNP3 #### [facility] [address] [place] [address] Chloride [Moles/Vol] 105 mmol/L Normal 98-107 [facility] Comment on above: Performed By: #### H EMOG, DDI2, BMP3, LIPA4, TROPN, BNP3 #### [facility] [address] [place], [place] Sodium [Moles/Vol] 138 mmol/L Normal 135-145 [facility] Comment on above: Performed By: #### H EMOG, DDI2, BMP3, LIPA4, TROPN, BNP3 #### [facility] [address] [place], [place] Anion gap [Moles/Vol] 10 mmol/L [place], [place] Calcium [Mass/Vol] 9.2 mg/dL 8.4 - 10. 4 mg/dL [place] Chloride [Moles/Vol] 105 mmol/L 98 - 10 7 mmol/L [place] CO2 [Moles/Vol] 24 mmol/L 22 - 30 mmol/L [place] Creatinine [Mass/Vol] 0.75 mg/dL 0.52 - 1.25 mg/dL [place] EGFR IF NonAfrican [place] >60.0 >60 mL/min [place] Comment on above: Source- MDRD equatio n with creatinine calibration to IDMS(NKDEP) eGFR not recommended for drug dose adjustment GFR/1.73 sq M predicted among blacks MDRD (S/P/Bld) [Vol rate/Area] mL/min/{1.73_m2} >60 mL/min [place] Glucose [Mass/Vol] 118 mg/dL High 70 - 100 mg/dL [place] Interpretation and review of laboratory results Abnormal [place] Potassium [Moles/Vol] 3.7 mmol/L 3.5 - 5.1 mmol/L [place] Sodium [Moles/Vol] 138 mmol/L 135 - 145 mmol/L [place] Urea nitrogen [Mass/Vol] 12 mg/dL 7 - 20 mg/dL [place] Brain Natriuretic Peptideon 03-08-2019 Natriuretic peptide B (Bld) [Mass/Vol] 58 pg/mL 0 - 125 pg/mL [place] CR Chest Portableon 03-08-20 19 CR Chest Portable Patient Name: NATALIE GERBER Diagnostic Radiology Exam Date/Time 03/08/2019 20:35:26 EDT Exam CR Chest Portable Ordering Physician DO KUMAR DALJEET Accession Number [id number] CPT4 Codes 97565 () Reason For Exam chest pain Report SINGLE FRONTAL VIEW OF THE CHEST CLINICAL INDICATION: chest pain TECHNIQUE: Single frontal view of the chest COMPARISON: 01/12/2019 FINDINGS: Lungs are clear. No pleural effusion or pneumothorax. No vascular congestion. Heart size mildly enlarged. IMPRESSION: 1. No acute finding. Report Dictated on Final Dictated: 03/08/2019 8:25 pm Dictating Physician: MD VALENCIA JOHN R Signed Date and Time: 03/08/2019 8:25 pm Signed by: MD VALENCIA JOHN R Transcribed Date and Time: 03/08/2019 8:25 Normal [facility] D-Dimer, Innovanceon 019 D-Dimer, Innovance 0.50 mg/L Normal 0.00-0.50 [facility] Comment on above: Result Comment: Inno aguiar D-Dimer values of <0.50 mg/L FEU can be used in combination with a pre-test probability model (e.g. Well's) to exclude pulmonary embolism (PE) disease, as well as an aid in the diagnosis of deep vein thrombosis (DVT). Performed By: #### H EMOG, DDI2, BMP3, LIPA4, TROPN, BNP3 #### [address] D-Dimer, Quantitativeon D-Dimer, Quant 0.5 mg/L 0 - 0.5 mg/L [place] Comment on above: Innovance D-Dimer va lues of <0.50 mg/L FEU can be used in combination with a pre-test probability model (e.g. Well's) to exclude pulmonary embolism (PE) disease, as well as an aid in the diagnosis of deep vein thrombosis (DVT). Test Performed by [address] [address] [place] Hemogramon 03-08-2019 Erythrocyte distribution width (RBC) [Ratio] 15.3 % High 11.5-14.5 [facility] Comment on above: Performed By: #### H EMOG, DDI2, BMP3, LIPA4, TROPN, BNP3 #### [address] Hematocrit (Bld) [Volume fraction] 33.3 % Low 40.0-52.0 [facility] Comment on above: Performed By: #### H EMOG, DDI2, BMP3, LIPA4, TROPN, BNP3 #### [address] Hemoglobin (Bld) [Mass/Vol] 10.9 g/dL Low 13.0-18.0 [facility] Comment on above: Performed By: #### H EMOG, DDI2, BMP3, LIPA4, TROPN, BNP3 #### [address] MCH (RBC) [Entitic mass] 27.9 pg Normal 26.0-34.0 [facility] Comment on above: Performed By: #### H EMOG, DDI2, BMP3, LIPA4, TROPN, BNP3 #### [address] MCHC (RBC) [Mass/Vol] 32.9 % Normal 32.0-36.0 [facility] Comment on above: Performed By: #### H EMOG, DDI2, BMP3, LIPA4, TROPN, BNP3 #### [address] [address] [address] [place], [place] MCV (RBC) [Entitic vol] 84.8 fL Normal 80.0-98.0 [facility] Comment on above: Performed By: #### H EMOG, DDI2, BMP3, LIPA4, TROPN, BNP3 #### [address] [address] [place], [place] Platelet mean volume (Bld) [Entitic vol] 7.7 fL Normal 7.4-10.4 [facility] Comment on above: Performed By: #### H EMOG, DDI2, BMP3, LIPA4, TROPN, BNP3 #### [address] Platelets (Bld) [#/Vol] 244 10*3/uL Normal 140-440 [facility] Comment on above: Performed By: #### H EMOG, DDI2, BMP3, LIPA4, TROPN, BNP3 #### [address] [address] [place], [place] RBC (Bld) [#/Vol] 3.92 10*6/uL Low 4.40-5.90 [facility] Comment on above: Performed By: #### H EMOG, DDI2, BMP3, LIPA4, TROPN, BNP3 #### [address] [address] [place], [place] WBC (Bld) [#/Vol] 9.8 10*3/uL Normal 3.6-10.7 [facility] Comment on above: Performed By: #### H EMOG, DDI2, BMP3, LIPA4, TROPN, BNP3 #### [address] Hemogram (CBC)on 03-08-2019 Erythrocyte distribution width (RBC) [Ratio] 15.3 % High 11.5 - 14.5 % [place] Hematocrit (Bld) [Volume fraction] 33.3 % Low 40 - 52 % [place] Hemoglobin (Bld) [Mass/Vol] 10.9 g/dL Low 13 - 18 g/dL [place] Interpretation and review of laboratory results Abnormal [place] MCH (RBC) [Entitic mass] 27.9 pg 26 - 34 pg [place] MCHC (RBC) [Mass/Vol] 32.9 % 32 - 36 % [place], [place] MCV (RBC) [Entitic vol] 84.8 fL 80 - 98 fL [place] Platelet mean volume (Bld) [Entitic vol] 7.7 fL 7.4 - 10.4 fL [place] Platelets (Bld) [#/Vol] 244 10*3/uL 140 - 440 10*3/uL [place] RBC (Bld) [#/Vol] 3.92 10*6/uL Low 4.4 - 5.9 10*6/uL [place] WBC (Bld) [#/Vol] 9.8 10*3/uL 3.6 - 10.7 10*3/uL [place] Test Performed by [facility], [address] [place] [address] Lipaseon 03-08-2019 Lipase [Catalytic activity/Vol] 28 U/L Normal 23-300 [facility] Comment on above: Performed By: #### H EMOG, DDI2, BMP3, LIPA4, TROPN, BNP3 #### [address] [id number] Lipase [Catalytic activity/Vol] 28 U/L 23 - 300 U/L [place] NT pro BNPon 03-08-2019 Natriuretic peptide B (Bld) [Mass/Vol] 58 pg/mL Normal 0-125 [facility] Comment on above: Performed By: #### H EMOG, DDI2, BMP3, LIPA4, TROPN, BNP3 #### [facility] [address] [place] [address] Otheron 03-08-2019 Test Performed by [facility], [address] [place] [address] Test Performed by [facility], [address] [place] [address] [place] Troponin Ion 03-08-2019 Troponin I.cardiac [Mass/Vol] ng/mL Normal 0.000-0.03 4 [facility] Comment on above: Result Comment: . Performed By: #### H EMOG, DDI2, BMP3, LIPA4, TROPN, BNP3 #### [facility] [address] [place] [address] Troponin x1on 03-08-2019 Troponin I.cardiac [Mass/Vol] ng/mL 0 - 0.034 ng/mL [place] Comment on above: . XR CHEST PORTABLEon 03-08-20 19 [facility] Incoming Radiology Results From [facility] - 03/08/2019 8:36 PM EDT Patient Name: NATALIE GERBER ---Diagnostic Radiology--- Exam Date/Time 03/08/2019 20:35:26 EDT Exam CR Chest Portable Ordering Physician DO KUMAR DALJEET Accession Number [id number] CPT4 Codes 96881 () Reason For Exam chest pain Report SINGLE FRONTAL VIEW OF THE CHEST CLINICAL INDICATION: chest pain TECHNIQUE: Single frontal view of the chest COMPARISON: 01/12/2019 FINDINGS: Lungs are clear. No pleural effusion or pneumothorax. No vascular congestion. Heart size mildly enlarged. IMPRESSION: 1. No acute finding. Report Dictated on --- Final --- Dictated: 03/08/2019 8:25 pm Dictating Physician: MD VALENCIA JOHN R Signed Date and Time: 03/08/2019 8:25 pm Signed by: MD VALENCIA JOHN R Transcribed Date and Time: 03/08/2019 8:25 [place] Patient Name: NATALIE GERBER ---Diagnostic Radiology--- Exam Date/Time 03/08/2019 20:35:26 EDT Exam CR Chest Portable Ordering Physician DO KUMAR DALJEET Accession Number [id number] CPT4 Codes 93214 () Reason For Exam chest pain Report SINGLE FRONTAL VIEW OF THE CHEST CLINICAL INDICATION: chest pain TECHNIQUE: Single frontal view of the chest COMPARISON: 01/12/2019 FINDINGS: Lungs are clear. No pleural effusion or pneumothorax. No vascular congestion. Heart size mildly enlarged. IMPRESSION: 1. No acute finding. Report Dictated on --- Final --- Dictated: 03/08/2019 8:25 pm Dictating Physician: MD VALENCIA JOHN R Signed Date and Time: 03/08/2019 8:25 pm Signed by: MD VALENCIA JOHN R Transcribed Date and Time: 03/08/2019 8:25 [place] Hemogram/Diffon 02-20-2019 Abs Immature Grans 0.12 thou/cmm High 0.00-0.05 [facility] Comment on above: Performed By: #### P BNP #### [place] [address] Abs Neut (ANC) 6.57 thou/cmm High 1.78-5.38 [facility] Comment on above: Performed By: #### P BNP #### [place] [address] Abs. Baso 0.04 thou/cmm Normal 0.01-0.08 [facility] Comment on above: Performed By: #### P BNP #### [place] [address] Abs. Lamb 0.53 thou/cmm Normal 0.30-0.82 [facility] Comment on above: Performed By: #### P BNP #### [place] [address] Basophils/100 WBC (Bld) 0.4 % Normal [facility] Comment on above: Performed By: #### P BNP #### [place] [address] Eosinophils (Bld) [#/Vol] 0.10 thou/cmm Normal 0.04-0.54 [facility] Comment on above: Performed By: #### P BNP #### [place] [id number] Eosinophils/100 WBC (Bld) 1.0 % Normal [facility] Comment on above: Performed By: #### P BNP #### [facility] [address] [place] [address] Erythrocyte distribution width (RBC) [Ratio] 14.4 % Normal 11.6-14.4 [facility] Comment on above: Performed By: #### P BNP #### [facility] [address] [place] [address] Hematocrit (Bld) [Volume fraction] 36.9 % Low 40.1-51.0 [facility] Comment on above: Performed By: #### P BNP #### [facility] [address] [place] [address] Hemoglobin (Bld) [Mass/Vol] 11.1 g/dL Low 13.7-17.5 [facility] Comment on above: Performed By: #### P BNP #### [facility] [address] [place] [address] Immature Grans 1.20 % Normal [facility] Comment on above: Performed By: #### P BNP #### [place] [address] Lymphocytes (Bld) [#/Vol] 2.45 thou/cmm Normal 0.84-2.85 [facility] Comment on above: Performed By: #### P BNP #### [place] [address] Lymphocytes/100 WBC (Bld) 25.0 % Normal [facility] Comment on above: Performed By: #### P BNP #### [facility] [address] [place] [address] MCH (RBC) [Entitic mass] 27.5 pg Normal 25.7-32.2 [facility] Comment on above: Performed By: #### P BNP #### [facility] [address] [place] [address] MCHC (RBC) [Mass/Vol] 30.1 % Low 32.3-36.5 [facility] Comment on above: Performed By: #### P BNP #### [facility] [address] [place] [address] MCV (RBC) [Entitic vol] 91.3 fL Normal 83.2-95.6 [facility] Comment on above: Performed By: #### P BNP #### [facility] [address] [place] [address] Monocytes/100 WBC (Bld) 5.4 % Normal [facility] Comment on above: Performed By: #### P BNP #### [facility] [address] [place] [address] Platelet mean volume (Bld) [Entitic vol] 9.7 fL Normal 8.7-12.0 [facility] Comment on above: Performed By: #### P BNP #### [facility] [address] [place] [address] Platelets (Bld) [#/Vol] 276 thou/cmm Normal 141-365 [facility] Comment on above: Performed By: #### P BNP #### [facility] [address] [place] [address] RBC (Bld) [#/Vol] 4.04 mil/cmm Low 4.63-6.08 [facility] Comment on above: Performed By: #### P BNP #### [facility] [address] [place] [address] RDW SD 47.8 fl High 36.1-45.8 [facility] Comment on above: Performed By: #### P BNP #### [facility] [address] [place] [address] Seg Neutrophil 67.0 % Normal [facility] Comment on above: Performed By: #### P BNP #### [facility] [address] [place] [address] WBC (Bld) [#/Vol] 9.80 thou/cmm High 4.23-9.07 [facility] Comment on above: Performed By: #### P BNP #### [place] [address] Comprehensive Panelon 2018 ALP [Catalytic activity/Vol] 144 U/L High 45-117 [facility] Comment on above: Performed By: #### P 14 #### [facility] [address] [place], [place] [address] Protein [Mass/Vol] 6.8 g/dL Normal 6.4-8.2 [facility] Comment on above: Performed By: #### P 14 #### [facility] [address] [place], [place] [address] Bilirubin [Mass/Vol] 0.4 mg/dL Normal 0.2-1.0 [facility] Comment on above: Performed By: #### P 14 #### [facility] [address] [place], [place] [address] Creatinine [Mass/Vol] 0.54 mg/dL Low 0.67-1.17 [facility] Comment on above: Performed By: #### P 14 #### [facility] [address] [place], [place] [address] ALT [Catalytic activity/Vol] 13 U/L Normal 12-78 [facility] Comment on above: Performed By: #### P 14 #### [facility] [address] [place], [place] [address] AST [Catalytic activity/Vol] 17 U/L Normal 15-37 [facility] Comment on above: Performed By: #### P 14 #### [facility] [address] [place], [place] [address] Albumin [Mass/Vol] 2.8 g/dL Low 3.4-5.0 [facility] Comment on above: Performed By: #### P 14 #### [facility] [address] [place], [place] [address] Anion gap [Moles/Vol] 12 mmol/L Normal 8-16 [facility] Comment on above: Performed By: #### P 14 #### [facility] [address] [place], [place] [address] CO2 [Moles/Vol] 25 mmol/L Normal 21-32 [facility] Comment on above: Performed By: #### P 14 #### [facility] [address] [place], [place] [address] Glucose [Mass/Vol] 219 mg/dL High 70-99 [facility] Comment on above: Performed By: #### P 14 #### [facility] [address] [place], [place] [address] Urea nitrogen [Mass/Vol] 10 mg/dL Normal 7-18 [facility] Comment on above: Performed By: #### P 14 #### [facility] [address] [place], [place] [address] Calcium [Mass/Vol] 8.7 mg/dL Normal 8.5-10.1 [facility] Comment on above: Performed By: #### P 14 #### [facility] [address] [place], [place] [address] Chloride [Moles/Vol] 105 mmol/L Normal 98-107 [facility] Comment on above: Performed By: #### P 14 #### [facility] [address] [place], [place] [address] Potassium [Moles/Vol] 3.8 mmol/L Normal 3.5-5.1 [facility] Comment on above: Performed By: #### P 14 #### [facility] [address] [place], [place] [address] Sodium [Moles/Vol] 138 mmol/L Normal 136-145 [facility] Comment on above: Performed By: #### P 14 #### [facility] [address] [place], [place] [address] Glucose Meteron 02-18-2019 Glucose [Mass/Vol] 205 mg/dL High 70-99 [facility] Comment on above: Result Comment: GABO VERA Performed By: #### G LMET #### [facility] [address] [place], [place] [address] Hemogramon 02-18-2019 Erythrocyte distribution width (RBC) [Ratio] 13.8 % Normal 11.6-14.4 [facility] Comment on above: Performed By: #### P 14 #### [facility] [address] [place], [place] [address] Hematocrit (Bld) [Volume fraction] 34.1 % Low 40.1-51.0 [facility] Comment on above: Performed By: #### P 14 #### [facility] [address] [place] [address] Hemoglobin (Bld) [Mass/Vol] 10.5 g/dL Low 13.7-17.5 [facility] Comment on above: Performed By: #### P 14 #### [facility] [address] [place] [address] MCH (RBC) [Entitic mass] 27.9 pg Normal 25.7-32.2 [facility] Comment on above: Performed By: #### P 14 #### [facility] [address] [place] [address] MCHC (RBC) [Mass/Vol] 30.8 % Low 32.3-36.5 [facility] Comment on above: Performed By: #### P 14 #### [facility] [address] [place] [address] MCV (RBC) [Entitic vol] 90.7 fL Normal 83.2-95.6 [facility] Comment on above: Performed By: #### P 14 #### [facility] [address] [place] [address] Platelet mean volume (Bld) [Entitic vol] 9.6 fL Normal 8.7-12.0 [facility] Comment on above: Performed By: #### P 14 #### [facility] [address] [place] [address] Platelets (Bld) [#/Vol] 276 thou/cmm Normal 141-365 [facility] Comment on above: Performed By: #### P 14 #### [facility] [address] [place] [address] RBC (Bld) [#/Vol] 3.76 mil/cmm Low 4.63-6.08 [facility] Comment on above: Performed By: #### P 14 #### [facility] [address] [place] [address] RDW SD 45.9 fl High 36.1-45.8 [facility] Comment on above: Performed By: #### P 14 #### [facility] [address] [place] [address] WBC (Bld) [#/Vol] 13.44 thou/cmm High 4.23-9.07 [facility] Comment on above: Performed By: #### P 14 #### [facility] [address] [place], [place] [address] Hgb A1con 02-18-2019 HbA1c (Bld) [Mass fraction] 5.9 % Normal 4.2-6.3 [facility] Comment on above: Result Comment: Meth od is National Glycohemoglobin Standardization Program (NGSP) compliant. Performed By: #### P BNP #### [facility] [address] [place], [place] [address] HbA1c (Bld) [Mass fraction] 123 mg/dl Normal [facility] Comment on above: Performed By: #### P BNP #### [address] [address] Lipid Profileon 02-18-2019 Cholesterol in HDL [Mass/Vol] 40 mg/dL Normal >40 [facility] Comment on above: Performed By: #### P BNP #### [address] [address] Cholesterol in LDL [Mass/Vol] 55 mg/dL Normal [facility] Comment on above: Result Comment: No C AD and with fewer than 2 CAD risk factors <160 mg/dL No CAD but with 2 or more CAD risk factors <130 mg/dL Definite CAD or other atherosclerotic disease <100 mg/dL Performed By: #### P BNP #### [address] [address] Cholesterol in LDL/Cholesterol in HDL [Mass ratio] 1.4 Normal 1.1-4.8 [facility] Comment on above: Result Comment: LDL, VLDL,LDL/HDL, Invalid if Triglyceride >400 Performed By: #### P BNP #### [facility] [address] [place], [place] [address] Cholesterol.total/Cho lesterol in HDL [Mass ratio] 2.9 {ratio} Normal 2.1-7.3 [facility] Comment on above: Performed By: #### P BNP #### [address] [address] Cholesterol [Mass/Vol] 116 mg/dL Normal 0-199 [facility] Comment on above: Result Comment: <200 Desirable 200-240 Borderline >240 High Performed By: #### P BNP #### [facility] [address] [place] [address] Cholesterol in VLDL [Mass/Vol] 21 mg/dL Normal <50 Desired [facility] Comment on above: Performed By: #### P BNP #### [facility] [address] [place] [id number] Triglyceride [Mass/Vol] 104 mg/dL Normal 0-149 [facility] Comment on above: Result Comment: < 20 0 Desirable Result invalid if not a fasting specimen. Performed By: #### P BNP #### [facility] [address] [place] [id number] MDRD GFRon 02-18-2019 GFR/1.73 sq M predicted among non-blacks MDRD (S/P/Bld) [Vol rate/Area] mL/min/{1.73_m2} Normal >60mL/min/ 1.73m2 [facility] Comment on above: Result Comment: If t he patient is , multiply the result by 1.210. Performed By: #### P 14 #### [facility] [address] [place] [address] Magnesium Bloodon 02-18-2019 Magnesium [Mass/Vol] 2.2 mg/dL Normal 1.6-2.6 [facility] Comment on above: Performed By: #### P 14 #### [facility] [address] [place] [address] Phosphorus Bloodon 9 Phosphate [Mass/Vol] 2.4 mg/dL Low 2.5-4.9 [facility] [facility] Comment on above: Performed By: #### P 14 #### [facility] [address] [place] [address] Activated PTTon 02-17-2019 aPTT Coag (Bld) [Time] 26.2 s Normal 23.0-32.4 [facility] Comment on above: Result Comment: Unfr actionated Heparin Therapeutic Ranges: Standard Heparin Nomogram: 53 to 78 seconds (anti-Xa level of 0.3 to 0.7 U/mL) Low Dose/ACS Nomogram: 49 to 67 seconds (anti-Xa level of 0.2 to 0.5 U/mL) Stroke Treatment Nomogram: 49 to 67 seconds (anti-Xa level of 0.2 to 0.5 U/mL) Note: The APTT therapeutic range has been determined for the current lot of laboratory APTT reagent in use throughout the [facility]. Performed By: #### P 14 #### [facility] [address] [address] Basic Panelon 02-17-2019 Creatinine [Mass/Vol] 0.62 mg/dL Low 0.67-1.17 [facility] Comment on above: Performed By: #### P 14 #### [facility] [address] [address] Urea nitrogen [Mass/Vol] 9 mg/dL Normal 7-18 [facility] Comment on above: Performed By: #### P 14 #### [place] [address] Anion gap [Moles/Vol] 16 mmol/L Normal 8-16 [facility] Comment on above: Performed By: #### P 14 #### [place] [address] Calcium [Mass/Vol] 9.0 mg/dL Normal 8.5-10.1 [facility] Comment on above: Performed By: #### P 14 #### [place] [address] CO2 [Moles/Vol] 23 mmol/L Normal 21-32 [facility] Comment on above: Performed By: #### P 14 #### [facility] [address] [place], [place] [address] Glucose [Mass/Vol] 175 mg/dL High 70-99 [facility] Comment on above: Performed By: #### P 14 #### [facility] [address] [place], [place] [address] Chloride [Moles/Vol] 102 mmol/L Normal 98-107 [facility] Comment on above: Performed By: #### P 14 #### [place] [address] Potassium [Moles/Vol] 4.3 mmol/L Normal 3.5-5.1 [facility] Comment on above: Performed By: #### P 14 #### [facility] [address] [place], [place] [address] Sodium [Moles/Vol] 137 mmol/L Normal 136-145 [facility] Comment on above: Performed By: #### P 14 #### [facility] [address] [place], [place] [address] CT BRAIN ATTACK WO IVCONon 0 02-17-2019 CT BRAIN ATTACK WO IVCON * * *Final Report* * * DATE OF EXAM: Feb 17 2019 6:07PM [facility] 0502 - CT BRAIN ATTACK WO IVCON / PROCEDURE REASON: Focal neuro deficit, new, fixed, or worsening, 4.5 to 24 hours, NIHSS 6 or great * * * * Physician Interpretation * * * * EXAMINATION: CT BRAIN ATTACK WO IVCON CLINICAL HISTORY: The patient presents with acute onset of left-sided weakness. Brain attack. TECHNIQUE: Routine CT of the brain without IV contrast. MQ: CTBA_4 CT Dose-Length Product (DLP): 796 mGy*cm CT Dose Reduction Employed: Iterative recon COMPARISON: 01/28/2018 RESULT: Acute ischemic change: None. ASPECT Score = 10 Hemorrhage: No evidence of acute intracranial hemorrhage. ECASS Hemorrhagic Transformation Score = Not Applicable Mass Lesion / Mass Effect: There is no evidence of an intracranial mass or extraaxial fluid collection. No significant mass effect. Chronic change: Scattered patchy foci of low attenuation are present within white matter which is a nonspecific finding but likely represents mild microvascular ischemia. Small chronic right cerebellar infarct. Parenchyma: There is no significant volume loss. The brain parenchyma is otherwise within normal limits for age. Ventricles: Normal caliber and morphology. Other: The visualized calvarium, skull base, orbits and extracranial soft tissues are normal. IMPRESSION: Negative for intracranial hemorrhage. No CT features of acute or evolving territorial infarct at this time. Minimal chronic microvascular ischemic change throughout the supratentorial white matter Small chronic right cerebellar infarct. CRITICAL TEST/RESULTS: Notification initiated at [address] Banuelos on 02/17/2019 at 1816 hours. CR_1 Gill Box Fixer: SHIRA Transcribe Date/Time: Feb 17 2019 6:13P Dictated by : AUGUSTINE BUNN MD This examination was interpreted and the report reviewed and electronically signed by: AUGUSTINE BUNN MD on Feb 17 2019 6:20PM EST CRITICAL!! Normal [facility] Troponin Ion 02-17-2019 Troponin I.cardiac [Mass/Vol] ng/mL Normal 0.015-0.04 5 [facility] Comment on above: Performed By: #### P 14 #### [facility] [address] [place] [address] Hemogramon 02-17-2019 Erythrocyte distribution width (RBC) [Ratio] 14.2 % Normal 11.6-14.4 [facility] Comment on above: Performed By: #### P 14 #### [facility] [address] [place] [address] Hematocrit (Bld) [Volume fraction] 37.6 % Low 40.1-51.0 [facility] Comment on above: Performed By: #### P 14 #### [facility] [address] [place] [address] Hemoglobin (Bld) [Mass/Vol] 11.5 g/dL Low 13.7-17.5 [facility] Comment on above: Performed By: #### P 14 #### [facility] [address] [place] [address] MCH (RBC) [Entitic mass] 27.7 pg Normal 25.7-32.2 [facility] Comment on above: Performed By: #### P 14 #### [facility] [address] [place] [address] MCHC (RBC) [Mass/Vol] 30.6 % Low 32.3-36.5 [facility] Comment on above: Performed By: #### P 14 #### [facility] [address] [place] [address] MCV (RBC) [Entitic vol] 90.6 fL Normal 83.2-95.6 [facility] Comment on above: Performed By: #### P 14 #### [facility] [address] [place] [address] Platelet mean volume (Bld) [Entitic vol] 9.9 fL Normal 8.7-12.0 [facility] Comment on above: Performed By: #### P 14 #### [facility] [address] [place], [place] [address] Platelets (Bld) [#/Vol] 301 thou/cmm Normal 141-365 [facility] Comment on above: Performed By: #### P 14 #### [facility] [address] [place] [id number] RBC (Bld) [#/Vol] 4.15 mil/cmm Low 4.63-6.08 [facility] Comment on above: Performed By: #### P 14 #### [facility] [address] [place] [address] RDW SD 47.1 fl High 36.1-45.8 [facility] Comment on above: Performed By: #### P 14 #### [facility] [address] [place] [id number] WBC (Bld) [#/Vol] 11.84 thou/cmm High 4.23-9.07 [facility] Comment on above: Performed By: #### P 14 #### [facility] [address] [place] [address] Protimeon 02-17-2019 INR Coag (PPP) [Relative time] 0.94 {INR} Normal 0.90-1.30 [facility] Comment on above: Result Comment: Michelle min K Antagonist (VKA) Therapeutic Range: INR 2 to 3 (Target INR of 2.5) Note: For patients treated with VKA drugs, such as warfarin, the [place] [employer] 2012 Guideline recommends a therapeutic INR range of 2 to 3 (target INR of 2.5). This recommendation includes high-risk patients with antiphospholipid syndrome with previous arterial or venous thromboembolism, current-generation mechanical or bioprosthetic aortic heart valve replacement. VKA Therapeutic Range for some Mechanical Valve Replacement: INR 2.5 to 3.5 (Target INR of 3) Note: Patients with mechanical aortic valve replacement and additional risk factors for thromboembolic events (atrial fibrillation, previous thromboembolism, LV dysfunction, hypercoagulable conditions) or an older generation mechanical AVR (i.e., ball in-Cage) or any mechanical MVR should have a INR therapeutic range of 2.5 to 3.5 target INR of 3). Aida GH, et al. Chest 2012; 141:7S-47S Hayder RA et al. [facility] 2017; 70: 252-289 Performed By: #### P 14 #### [facility] [address] [place] [address] PT Coag (PPP) [Time] 10.2 s Normal 9.7-13.0 [facility] Comment on above: Performed By: #### P 14 #### [place] [address] .Auto Diffon 01-18-2019 Ammonia (P) [Mass/Vol] 0.30 10 3/mcL Normal 0.09-1.40 [facility] Comment on above: Performed By: #### C BC, ADIFF, ANEU, GFR, BMP #### [address] [address] Basophils (Bld) [#/Vol] 0.10 10 3/mcL Normal 0.00-0.27 [facility] Comment on above: Performed By: #### C BC, ADIFF, ANEU, GFR, BMP #### [address] [address] Basophils/100 WBC (Bld) 1.0 % Normal 0.0-2.5 [facility] Comment on above: Performed By: #### C BC, ADIFF, ANEU, GFR, BMP #### [address] [address] Eosinophils (Bld) [#/Vol] 0.10 10 3/mcL Normal 0.00-0.65 [facility] Comment on above: Performed By: #### C BC, ADIFF, ANEU, GFR, BMP #### [address] [address] Eosinophils/100 WBC (Bld) 2.2 % Normal 0.0-6.0 [facility] Comment on above: Performed By: #### C BC, ADIFF, ANEU, GFR, BMP #### [address] [address] Lymphocytes (Bld) [#/Vol] 1.50 10 3/mcL Normal 0.90-4.32 [facility] Comment on above: Performed By: #### C BC, ADIFF, ANEU, GFR, BMP #### [address] [address] Lymphocytes/100 WBC (Bld) 24.5 % Normal 20.0-40.0 [facility] Comment on above: Performed By: #### C BC, ADIFF, ANEU, GFR, BMP #### [address] [address] Monocytes/100 WBC (Bld) 5.3 % Normal 2.0-13.0 [facility] Comment on above: Performed By: #### C BC, ADIFF, ANEU, GFR, BMP #### [address] [address] Neutrophils/100 WBC (Bld) 67.0 % Normal 50.0-75.0 [facility] [place] Comment on above: Performed By: #### C BC, ADIFF, ANEU, GFR, BMP #### [address] [address] .GFRon 01-18-2019 GFR Non- >60 Normal [facility] [place] Comment on above: Result Comment: GFR Population mean for , Non- Americans Ages 20-29 = 116 mL/min/1.73 sq.m. Ages 30-39 = 107 mL/min/1.73 sq.m. Ages 40-49 = 99 mL/min/1.73 sq.m. Ages 50-59 = 93 mL/min/1.73 sq.m. Ages 60-69 = 85 mL/min/1.73 sq.m. Ages 70+ = 75 mL/min/1.73 sq.m. Chronic Kidney Disease: Less than 60 mL/min/1.73 square meters End Stage Renal Disease: Less than 15 mL/min/1.73 square meters Performed By: #### C BC, ADIFF, ANEU, GFR, BMP #### [address] [address] GFR >60 Normal [facility] ([place]) Comment on above: Result Comment: GFR Population mean for , Non- Americans Ages 20-29 = 116 mL/min/1.73 sq.m. Ages 30-39 = 107 mL/min/1.73 sq.m. Ages 40-49 = 99 mL/min/1.73 sq.m. Ages 50-59 = 93 mL/min/1.73 sq.m. Ages 60-69 = 85 mL/min/1.73 sq.m. Ages 70+ = 75 mL/min/1.73 sq.m. Chronic Kidney Disease: Less than 60 mL/min/1.73 square meters End Stage Renal Disease: Less than 15 mL/min/1.73 square meters Performed By: #### C BC, ADIFF, ANEU, GFR, BMP #### [address] [address] .NEUABSon 01-18-2019 Neutrophils (Bld) [#/Vol] 4.10 10 3/mcL Normal 2.25-8.10 [facility] [place] Comment on above: Performed By: #### C BC, ADIFF, ANEU, GFR, BMP #### [address] 01-18-2019 Potassium [Moles/Vol] 4.6 mmol/L Normal 3.5-5.0 [facility] ([place]) Comment on above: Result Comment: Spec imen slightly hemolyzed. Results may be falsely elevated. Performed By: #### C BC, ADIFF, ANEU, GFR, BMP #### [address] [address] Calcium [Mass/Vol] 8.9 mg/dL Normal 8.4-10.1 [facility] ([place]) Comment on above: Performed By: #### C BC, ADIFF, ANEU, GFR, BMP #### [address] [address] Chloride [Moles/Vol] 106 mmol/L Normal 98-110 [facility] ([place]) Comment on above: Performed By: #### C BC, ADIFF, ANEU, GFR, BMP #### [address] [address] CO2 [Moles/Vol] 26 mmol/L Normal 22-32 [facility] [place] Comment on above: Performed By: #### C BC, ADIFF, ANEU, GFR, BMP #### [address] [address] Creatinine [Mass/Vol] 0.69 mg/dL Normal 0.60-1.40 [facility] ([place]) Comment on above: Performed By: #### C BC, ADIFF, ANEU, GFR, BMP #### [place] [id number] Electrolyte Balance 9.0 mEq/L Normal 4.0-15.0 [facility] ([place]) Comment on above: Performed By: #### C BC, ADIFF, ANEU, GFR, BMP #### [place] [id number] Glucose [Mass/Vol] 101 mg/dL Normal 70-110 [facility] ([place]) Comment on above: Performed By: #### C BC, ADIFF, ANEU, GFR, BMP #### [place] [address] Sodium [Moles/Vol] 141 mmol/L Normal 136-145 [facility] ([place]) Comment on above: Performed By: #### C BC, ADIFF, ANEU, GFR, BMP #### [place] [id number] Urea nitrogen [Mass/Vol] 10.0 mg/dL Normal 8.0-22.0 [facility] [place] Comment on above: Performed By: #### C BC, ADIFF, ANEU, GFR, BMP #### [place] [phone] Urea nitrogen/Creatinine [Mass ratio] 14.5 ratio Normal 10.0-22.0 [facility] [place] Comment on above: Performed By: #### C BC, ADIFF, ANEU, GFR, BMP #### [address] [address] CBCon 08-19-2019 Erythrocyte distribution width (RBC) [Ratio] 14.7 % Normal 11.5-15.5 [facility] [place] Comment on above: Performed By: #### C BC, ADIFF, ANEU, GFR, BMP #### [place] [address] Hematocrit (Bld) [Volume fraction] 35.0 % Low 40.0-52.0 [facility] [place] Comment on above: Performed By: #### C BC, ADIFF, ANEU, GFR, BMP #### [place] [address] Hemoglobin (Bld) [Mass/Vol] 11.4 G/dL Low 13.0-17.5 [facility] [place] Comment on above: Performed By: #### C BC, ADIFF, ANEU, GFR, BMP #### [place] [address] MCH (RBC) [Entitic mass] 28.6 pg Normal 27.0-33.0 [facility] [place] Comment on above: Performed By: #### C BC, ADIFF, ANEU, GFR, BMP #### [place] [phone] MCHC (RBC) [Mass/Vol] 32.6 G/dL Normal 32.0-36.0 [facility] ([place]) Comment on above: Performed By: #### C BC, ADIFF, ANEU, GFR, BMP #### [place] [phone] MCV (RBC) [Entitic vol] 87.8 fL Normal 81.0-100.0 [facility] [place] Comment on above: Performed By: #### C BC, ADIFF, ANEU, GFR, BMP #### [place] [address] Platelet mean volume (Bld) [Entitic vol] 7.3 fL Normal 6.4-10.5 [facility] [place] Comment on above: Performed By: #### C BC, ADIFF, ANEU, GFR, BMP #### [address] [address] Platelets (Bld) [#/Vol] 214 10 3/mcL Normal 150-450 [facility] [place] Comment on above: Performed By: #### C BC, ADIFF, ANEU, GFR, BMP #### [place] [address] RBC (Bld) [#/Vol] 3.99 10 6/mcL Low 4.50-6.00 [facility] ([place]) Comment on above: Performed By: #### C BC, ADIFF, ANEU, GFR, BMP #### [address] [address] WBC (Bld) [#/Vol] 6.20 10 3/mcL Normal 4.50-10.80 [facility] ([place]) Comment on above: Performed By: #### C BC, ADIFF, ANEU, GFR, BMP #### [address] [address] .GFRon 01-17-2019 GFR >60 Normal [facility] ([place]) Comment on above: Result Comment: GFR Population mean for , Non- Americans Ages 20-29 = 116 mL/min/1.73 sq.m. Ages 30-39 = 107 mL/min/1.73 sq.m. Ages 40-49 = 99 mL/min/1.73 sq.m. Ages 50-59 = 93 mL/min/1.73 sq.m. Ages 60-69 = 85 mL/min/1.73 sq.m. Ages 70+ = 75 mL/min/1.73 sq.m. Chronic Kidney Disease: Less than 60 mL/min/1.73 square meters End Stage Renal Disease: Less than 15 mL/min/1.73 square meters Performed By: #### C MP, GFR #### [address] [address] GFR Non- >60 Normal [facility] [place] Comment on above: Result Comment: GFR Population mean for , Non- Americans Ages 20-29 = 116 mL/min/1.73 sq.m. Ages 30-39 = 107 mL/min/1.73 sq.m. Ages 40-49 = 99 mL/min/1.73 sq.m. Ages 50-59 = 93 mL/min/1.73 sq.m. Ages 60-69 = 85 mL/min/1.73 sq.m. Ages 70+ = 75 mL/min/1.73 sq.m. Chronic Kidney Disease: Less than 60 mL/min/1.73 square meters End Stage Renal Disease: Less than 15 mL/min/1.73 square meters Performed By: #### C MP, GFR #### [address] [address] [facility] Albumin/Globulin [Mass ratio] 0.8 {ratio} Low 0.9-1.6 [facility] [place] Comment on above: Performed By: #### C MP, GFR #### [address] [address] ALP [Catalytic activity/Vol] 164 U/L High 38-126 [facility] ([place] Comment on above: Performed By: #### C MP, GFR #### [address] [address] Bili Total 0.7 mg/dL Normal 0.2-1.2 [facility] [place] Comment on above: Performed By: #### C MP, GFR #### [address] [address] Creatinine [Mass/Vol] 0.67 mg/dL Normal 0.60-1.40 [facility] ([place]) Comment on above: Performed By: #### C MP, GFR #### [address] [address] Globulin (S) [Mass/Vol] 4.2 G/dL High 1.5-3.8 [facility] [place] Comment on above: Performed By: #### C MP, GFR #### [address] [address] Protein [Mass/Vol] 7.5 G/dL Normal 6.0-8.5 [facility] ([place]) Comment on above: Performed By: #### C MP, GFR #### [address] [address] Urea nitrogen/Creatinine [Mass ratio] 16.4 ratio Normal 10.0-22.0 [facility] [place] Comment on above: Performed By: #### C MP, GFR #### [address] [address] Albumin [Mass/Vol] 3.3 G/dL Normal 3.2-4.8 [facility] ([place]) Comment on above: Performed By: #### C MP, GFR #### [address] [address] ALT [Catalytic activity/Vol] 13 U/L Normal 12-55 [facility] [place] Comment on above: Performed By: #### C MP, GFR #### [place] [phone] AST [Catalytic activity/Vol] 14 U/L Normal 8-34 [facility] [place] Comment on above: Performed By: #### C MP, GFR #### [place] [id number] Calcium [Mass/Vol] 9.1 mg/dL Normal 8.4-10.1 [facility] ([place]) Comment on above: Performed By: #### C MP, GFR #### [address] [address] Chloride [Moles/Vol] 102 mmol/L Normal 98-110 [facility] ([place] Comment on above: Performed By: #### C MP, GFR #### [address] [address] CO2 [Moles/Vol] 31 mmol/L Normal 22-32 [facility] [place] Comment on above: Performed By: #### C MP, GFR #### [address] [address] Electrolyte Balance 5.0 mEq/L Normal 4.0-15.0 [facility] ([place]) Comment on above: Performed By: #### C MP, GFR #### [place] [phone] Glucose [Mass/Vol] 112 mg/dL High 70-110 [facility] ([place]) Comment on above: Performed By: #### C MP, GFR #### [address] [address] Potassium [Moles/Vol] 3.8 mmol/L Normal 3.5-5.0 [facility] ([place]) Comment on above: Performed By: #### C MP, GFR #### [address] [address] Sodium [Moles/Vol] 138 mmol/L Normal 136-145 [facility] ([place]) Comment on above: Performed By: #### C MP, GFR #### [address] [address] Urea nitrogen [Mass/Vol] 11.0 mg/dL Normal 8.0-22.0 [facility] [place] Comment on above: Performed By: #### C MP, GFR #### [address] [address] CTA Chest W WO (PE study)on 01-13-2019 Patient Name: NATALIE GERBER ---CT--- Exam Date/Time 01/13/2019 00:57:20 EDT Exam CTA Chest w/ + w/o Contrast Ordering Physician MD THOMPSON HEATHER ROSE Accession Number [id number] CPT4 Codes 40918 (), Q9967 (CT ISOVUE 370MG/[id number]&[id number]) Reason For Exam shortness of breath hx PE Report Clinical indication: Shortness of breath COMPARISON: CTA chest 10/03/2016 Contrast: 75 mL Isovue-370 intravenously Radiation dose: DLP [address] was performed with rapid bolus intravenous administration of contrast material. Axial and coronal reformatted images were evaluated. I performed 3-D reconstruction at the workstation. Bolus density and the pulmonary artery is marginally adequate. There are no focal filling defects noted within the opacified pulmonary arterial system. No abrupt termination is noted in the contrast column within the pulmonary arteries. No pathologically enlarged mediastinal or hilar lymph nodes are identified. No mediastinal masses are identified. Aorta is normal in size and the lumen enhances uniformly. The lungs contain no focal pulmonary infiltrates. No pleural effusions are present. No focal masses are identified within the visualized portions of the liver and spleen and the visualized portions of the adrenal glands appear normal in size. Multilevel bridging endplate osteophytes are noted through the thoracic spine. Impression: No CT evidence of pulmonary embolism. Report Dictated on Workstation: [id number] --- Final --- Dictated: 01/13/2019 1:02 am Dictating Physician: MD GLASS DIANE Signed Date and Time: 01/13/2019 1:07 am Signed by: MD GLASS DIANE Transcribed Date and Time: 01/13/2019 1:02 [place], [place] Incoming Radiology Results From [facility] - 01/13/2019 1:08 AM EDT Patient Name: NATALIE GERBER ---CT--- Exam Date/Time 01/13/2019 00:57:20 EDT Exam CTA Chest w/ + w/o Contrast Ordering Physician MD THOMPSON HEATHER ROSE Accession Number [id number] CPT4 Codes 69829 (), Q9967 (CT ISOVUE 370MG/ML&[id number]&[id number]) Reason For Exam shortness of breath hx PE Report Clinical indication: Shortness of breath COMPARISON: CTA chest 10/03/2016 Contrast: 75 mL Isovue-370 intravenously Radiation dose: DLP [address] was performed with rapid bolus intravenous administration of contrast material. Axial and coronal reformatted images were evaluated. I performed 3-D reconstruction at the workstation. Bolus density and the pulmonary artery is marginally adequate. There are no focal filling defects noted within the opacified pulmonary arterial system. No abrupt termination is noted in the contrast column within the pulmonary arteries. No pathologically enlarged mediastinal or hilar lymph nodes are identified. No mediastinal masses are identified. Aorta is normal in size and the lumen enhances uniformly. The lungs contain no focal pulmonary infiltrates. No pleural effusions are present. No focal masses are identified within the visualized portions of the liver and spleen and the visualized portions of the adrenal glands appear normal in size. Multilevel bridging endplate osteophytes are noted through the thoracic spine. Impression: No CT evidence of pulmonary embolism. Report Dictated on Workstation: [id number] --- Final --- Dictated: 01/13/2019 1:02 am Dictating Physician: MD GLASS DIANE Signed Date and Time: 01/13/2019 1:07 am Signed by: MD GLASS DIANE Transcribed Date and Time: 01/13/2019 1:02 [place] Cannabinoid, Urine, Screenin g, Critical Careon 01-13-2019 THC Negative [place], [place] Comment on above: Threshold= 50 ng/mL Test Performed by [facility], [address] [place] [address] D-Dimer, Quantitativeon 12-31 D-Dimer, Quant 0.7 mg/L High 0 - 0.5 mg/L [place] Comment on above: [employer] D-Dimer va lues of <0.50 mg/L FEU can be used in combination with a pre-test probability model (e.g. Well's) to exclude pulmonary embolism (PE) disease, as well as an aid in the diagnosis of deep vein thrombosis (DVT). Interpretation and review of laboratory results Abnormal [place] Test Performed by [facility], [address] [place] [id number] [place] [address] Ethanolon 01-13-2019 Ethanol Lvl <0.010 0 - 0.01 g/dL [place] Comment on above: NOTE: This result is for medical treatment only. Analysis performed using non-forensic procedures. Test Performed by [facility], [address] [place] [id number] Per resident [place], [place] Urine Drug Screenon 01-14-20 19 Amphetamines, urine Positive [facility], [place] Barbiturates, Ur Negative [facility] [place], [place] Benzodiazepine Ur Qual Negative [facility] [place] Cocaine Metabolites, Ur Negative [facility]- [place], [place] Methadone, Urine Negative [facility] [place] Opiates, Urine Positive [facility], [place] Oxycodone Screen, Ur Positive [facility] [place] PCP, Urine Negative [facility], [place] Comment on above: The expected value f or all of the drugs listed above is Negative. The following drugs or drug groups have been screened for by Immunoassay at the following thresholds: Amphetamine class (1000 ng/mL), Barbiturates (200 ng/mL), Benzodiazepines (200 ng/mL), Cocaine (300 ng/mL), Methadone (300 ng/mL), Opiates (300 ng/mL), Oxycodone (100 ng/mL), and PCP (25 ng/mL). NOTE: These results are for medical treatment only. Analysis performed using non-forensic procedures. POSITIVE results are NOT confirmed by a more specific alternative method unless requested. If confirmation is needed, request confirmation under separate order. Test Performed by [place] [address] [address] [place] [address] [place], [place] Add On Lab Teston 01-12-2019 Sodium [Moles/Vol] Accepted [place], [place] Comment on above: Specimen available & acceptable for analysis. Test Performed by [place] [address] [place] [address] [place] Basic Metabolic Panelon 12-31 Anion gap [Moles/Vol] 10 mmol/L [place] Calcium [Mass/Vol] 8.8 mg/dL 8.4 - 10. 4 mg/dL [place] Chloride [Moles/Vol] 102 mmol/L 98 - 10 7 mmol/L [place] CO2 [Moles/Vol] 29 mmol/L 22 - 30 mmol/L [place] Creatinine [Mass/Vol] 0.71 mg/dL 0.52 - 1.25 mg/dL [place] EGFR IF NonAfrican [place] >60.0 >60 mL/min [place] Comment on above: Source- MDRD equatio n with creatinine calibration to IDMS(NKDEP) eGFR not recommended for drug dose adjustment GFR/1.73 sq M predicted among blacks MDRD (S/P/Bld) [Vol rate/Area] mL/min/{1.73_m2} >60 mL/min [place] Glucose [Mass/Vol] 111 mg/dL High 70 - 100 mg/dL [place] Interpretation and review of laboratory results Abnormal [place] Potassium [Moles/Vol] 3.8 mmol/L 3.5 - 5.1 mmol/L [place] Sodium [Moles/Vol] 141 mmol/L 135 - 145 mmol/L [place] Urea nitrogen [Mass/Vol] 11 mg/dL 7 - 20 mg/dL [place] Test Performed by [facility], [facility] [place] [address] [place] Brain Natriuretic Peptideon 01-12-2019 Natriuretic peptide B (Bld) [Mass/Vol] 47 pg/mL 0 - 125 pg/mL [place] Hemogram (CBC)on 01-12-2019 Erythrocyte distribution width (RBC) [Ratio] 14.8 % High 11.5 - 14.5 % [place] Hematocrit (Bld) [Volume fraction] 33.7 % Low 40 - 52 % [place] Hemoglobin (Bld) [Mass/Vol] 11.3 g/dL Low 13 - 18 g/dL [place] Interpretation and review of laboratory results Abnormal [place] MCH (RBC) [Entitic mass] 29.2 pg 26 - 34 pg [place] MCHC (RBC) [Mass/Vol] 33.6 % 32 - 36 % [place] MCV (RBC) [Entitic vol] 87.0 fL 80 - 98 fL [place] Platelet mean volume (Bld) [Entitic vol] 7.6 fL 7.4 - 10.4 fL [place] Platelets (Bld) [#/Vol] 267 10*3/uL 140 - 440 10*3/uL [place] RBC (Bld) [#/Vol] 3.87 10*6/uL Low 4.4 - 5.9 10*6/uL [place] WBC (Bld) [#/Vol] 8.8 10*3/uL 3.6 - 10.7 10*3/uL [place] Test Performed by [address] [place] [address] [place] Otheron 01-12-2019 Test Performed by [facility], [address] [place] [address] [place] Troponin Ion 01-12-2019 Troponin I.cardiac [Mass/Vol] ng/mL Normal 0.015-0.04 5 [facility] Comment on above: Performed By: #### T ROP #### [facility] [address] [place], [place] [address] Troponin x1on 01-12-2019 Troponin I.cardiac [Mass/Vol] ng/mL 0 - 0.034 ng/mL [place] Comment on above: < 0.034 = negative 0.034 0.120 = indeterminate > 0.120 = positive XR CHEST PORTABLEon 01-13-20 19 [facility] Incoming Radiology Results From [facility] - 01/12/2019 10:16 PM EDT Patient Name: NATALIE GERBER ---Diagnostic Radiology--- Exam Date/Time 01/12/2019 22:08:51 EDT Exam CR Chest Portable Ordering Physician ASAF DURAN Accession Number [id number] CPT4 Codes 77123 () Reason For Exam SOB Report Clinical Indications: Shortness of breath Views: 1 Comparisons: 04/18/2018 Heart: Size within normal limits. Mediastinum: Unremarkable. Lungs: No evidence of infiltrate, effusion or acute interstitial process. Osseous and soft tissue structures: Generally intact. Impression: No radiographic evidence of active cardiopulmonary process. . Report Dictated on --- Final --- Dictated: 01/12/2019 10:14 pm Dictating Physician: MD MATA RUSSELL Signed Date and Time: 01/12/2019 10:15 pm Signed by: MD MATA RUSSELL Transcribed Date and Time: 01/12/2019 10:14 [place] Patient Name: NATALIE GERBER ---Diagnostic Radiology--- Exam Date/Time 01/12/2019 22:08:51 EDT Exam CR Chest Portable Ordering Physician ASAF DURAN Accession Number [id number] CPT4 Codes 59264 () Reason For Exam SOB Report Clinical Indications: Shortness of breath Views: 1 Comparisons: 04/18/2018 Heart: Size within normal limits. Mediastinum: Unremarkable. Lungs: No evidence of infiltrate, effusion or acute interstitial process. Osseous and soft tissue structures: Generally intact. Impression: No radiographic evidence of active cardiopulmonary process. . Report Dictated on --- Final --- Dictated: 01/12/2019 10:14 pm Dictating Physician: MD MATA RUSSELL Signed Date and Time: 01/12/2019 10:15 pm Signed by: MD MATA RUSSELL Transcribed Date and Time: 01/12/2019 10:14 [facility] Panel 2018 Creatinine [Mass/Vol] 0.65 mg/dL Low 0.67-1.17 [facility] Comment on above: Performed By: #### P 14 #### [facility] [address] [place], [place] [address] ALP [Catalytic activity/Vol] 170 U/L High 45-117 [facility] Comment on above: Performed By: #### P 14 #### [facility] [address] [place], [place] [address] Bilirubin [Mass/Vol] 0.3 mg/dL Normal 0.2-1.0 [facility] Comment on above: Performed By: #### P 14 #### [facility] [address] [place], [place] [address] Protein [Mass/Vol] 7.5 g/dL Normal 6.4-8.2 [facility] Comment on above: Performed By: #### P 14 #### [facility] [address] [place], [place] [address] ALT [Catalytic activity/Vol] 11 U/L Low 12-78 [facility] Comment on above: Performed By: #### P 14 #### [facility] [address] [place], [place] [address] AST [Catalytic activity/Vol] 11 U/L Low 15-37 [facility] Comment on above: Performed By: #### P 14 #### [facility] [address] [place], [place] [address] Glucose [Mass/Vol] 106 mg/dL High 70-99 [facility] Comment on above: Performed By: #### P 14 #### [facility] [address] [place], [place] [address] Albumin [Mass/Vol] 3.4 g/dL Normal 3.4-5.0 [facility] Comment on above: Performed By: #### P 14 #### [facility] [address] [place], [place] [address] Anion gap [Moles/Vol] 11 mmol/L Normal 8-16 [facility] Comment on above: Performed By: #### P 14 #### [facility] [address] [place], [place] [address] Calcium [Mass/Vol] 8.8 mg/dL Normal 8.5-10.1 [facility] Comment on above: Performed By: #### P 14 #### [facility] [address] [place], [place] [address] CO2 [Moles/Vol] 27 mmol/L Normal 21-32 [facility] Comment on above: Performed By: #### P 14 #### [facility] [address] [place], [place] [address] Urea nitrogen [Mass/Vol] 9 mg/dL Normal 7-18 [facility] Comment on above: Performed By: #### P 14 #### [facility] [address] [place], [place] [address] Chloride [Moles/Vol] 104 mmol/L Normal 98-107 [facility] Comment on above: Performed By: #### P 14 #### [facility] [address] [place], [place] [address] Potassium [Moles/Vol] 3.5 mmol/L Normal 3.5-5.1 [facility] Comment on above: Performed By: #### P 14 #### [facility] [address] [place], [place] [address] Sodium [Moles/Vol] 138 mmol/L Normal 136-145 [facility] Comment on above: Performed By: #### P 14 #### [facility] [address] [place], [place] [address] [facility]U Troponin Ion 01-11-2019 Troponin I.cardiac [Mass/Vol] ng/mL Normal 0.015-0.04 5 [facility] Comment on above: Performed By: #### E RTRP #### [facility] [address] [place] [address] Troponin I.cardiac [Mass/Vol] ng/mL Normal 0.015-0.04 5 [facility] Comment on above: Performed By: #### E RTRP #### [place] [address] Hemogram/Diffon 01-11-2019 Abs Immature Grans 0.06 thou/cmm High 0.00-0.05 [facility] Comment on above: Performed By: #### C BCD1 #### [place] [address] Abs Neut (ANC) 7.14 thou/cmm High 1.78-5.38 [facility] Comment on above: Performed By: #### C BCD1 #### [place] [address] Abs. Baso 0.05 thou/cmm Normal 0.01-0.08 [facility] Comment on above: Performed By: #### C BCD1 #### [place] [address] Abs. Lamb 0.34 thou/cmm Normal 0.30-0.82 [facility] Comment on above: Performed By: #### C BCD1 #### [place] [address] Basophils/100 WBC (Bld) 0.5 % Normal [facility] Comment on above: Performed By: #### C BCD1 #### [place] [address] Eosinophils (Bld) [#/Vol] 0.15 thou/cmm Normal 0.04-0.54 [facility] Comment on above: Performed By: #### C BCD1 #### [place] [address] Eosinophils/100 WBC (Bld) 1.6 % Normal [facility] Comment on above: Performed By: #### C BCD1 #### [facility] [address] [place] [address] Erythrocyte distribution width (RBC) [Ratio] 13.7 % Normal 11.6-14.4 [facility] Comment on above: Performed By: #### C BCD1 #### [facility] [address] [place] [address] Hematocrit (Bld) [Volume fraction] 35.9 % Low 40.1-51.0 [facility] Comment on above: Performed By: #### C BCD1 #### [facility] [address] [place] [address] Hemoglobin (Bld) [Mass/Vol] 11.0 g/dL Low 13.7-17.5 [facility] Comment on above: Performed By: #### C BCD1 #### [place] [address] Immature Grans 0.60 % Normal [facility] Comment on above: Performed By: #### C BCD1 #### [facility] [address] [place] [address] Lymphocytes (Bld) [#/Vol] 1.64 thou/cmm Normal 0.84-2.85 [facility] Comment on above: Performed By: #### C BCD1 #### [place] [address] Lymphocytes/100 WBC (Bld) 17.5 % Normal [facility] Comment on above: Performed By: #### C BCD1 #### [facility] [address] [place] [address] MCH (RBC) [Entitic mass] 27.8 pg Normal 25.7-32.2 [facility] Comment on above: Performed By: #### C BCD1 #### [facility] [address] [place] [address] MCHC (RBC) [Mass/Vol] 30.6 % Low 32.3-36.5 [facility] Comment on above: Performed By: #### C BCD1 #### [place] [address] MCV (RBC) [Entitic vol] 90.9 fL Normal 83.2-95.6 [facility] Comment on above: Performed By: #### C BCD1 #### [facility] [address] [place] [address] Monocytes/100 WBC (Bld) 3.6 % Normal [facility] Comment on above: Performed By: #### C BCD1 #### [facility] [address] [place] [address] Platelet mean volume (Bld) [Entitic vol] 9.8 fL Normal 8.7-12.0 [facility] Comment on above: Performed By: #### C BCD1 #### [facility] [address] [place] [address] Platelets (Bld) [#/Vol] 259 thou/cmm Normal 141-365 [facility] Comment on above: Performed By: #### C BCD1 #### [facility] [address] [place] [address] RBC (Bld) [#/Vol] 3.95 mil/cmm Low 4.63-6.08 [facility] Comment on above: Performed By: #### C BCD1 #### [facility] [address] [place] [address] RDW SD 45.1 fl Normal 36.1-45.8 [facility] Comment on above: Performed By: #### C BCD1 #### [facility] [address] [place] [address] Seg Neutrophil 76.2 % Normal [facility] Comment on above: Performed By: #### C BCD1 #### [facility] [address] [place] [address] WBC (Bld) [#/Vol] 9.37 thou/cmm High 4.23-9.07 [facility] Comment on above: Performed By: #### C BCD1 #### [facility] [address] [place] [address] MDRD GFRon 01-11-2019 GFR/1.73 sq M predicted among non-blacks MDRD (S/P/Bld) [Vol rate/Area] mL/min/{1.73_m2} Normal >60mL/min/ 1.73m2 [facility] Comment on above: Result Comment: If t he patient is , multiply the result by 1.210. Performed By: #### G FR #### [place] [address] N-terminal Pro-BNPon 019 Natriuretic peptide B (Bld) [Mass/Vol] 146 pg/mL Normal [facility] Comment on above: Result Comment: Note new reference range: Normal Reference Range: Patients <75 yrs old <125pg/ml Patients >=75 yrs old <450 pg/ml Performed By: #### P BNP #### [place] [address] Urinalysis Routineon 019 Hyaline Cast 0.0-2 Normal 0.0-1.0 [facility] Comment on above: Performed By: #### U RIN2 #### [place] [address] Mucus Threads FEW Abnormal None [facility] Comment on above: Performed By: #### U RIN2 #### [place] [address] Bacteria LM.HPF (Urine sed) [#/Area] NONE Normal None [facility] Comment on above: Performed By: #### U RIN2 #### [place] [address] Ep Cells Urine 3.7 /hpf Normal 0.0-5.0 [facility] Comment on above: Performed By: #### U RIN2 #### [place] [address] RBC LM.HPF (Urine sed) [#/Area] 0.8 /[HPF] Normal 0.0-5.0 [facility] Comment on above: Performed By: #### U RIN2 #### [place] [address] WBC LM.HPF (Urine sed) [#/Area] 1.2 /[HPF] Normal 0.0-5.0 [facility] Comment on above: Performed By: #### U RIN2 #### [facility] [address] [place] [address] Appearance (U) CLEAR Normal [facility] Comment on above: Performed By: #### U RIN2 #### [facility] [address] [place] [address] Bilirubin (U) [Mass/Vol] Negative Normal Negative [facility] Comment on above: Performed By: #### U RIN2 #### [facility] [address] [place] [address] Color (U) YELLOW Normal [facility] Comment on above: Performed By: #### U RIN2 #### [facility] [address] [place] [address] Glucose Ql (U) Negative Normal Negative [facility] Comment on above: Performed By: #### U RIN2 #### [place] [address] Hemoglobin,Urine Negative Normal Negative [facility] Comment on above: Performed By: #### U RIN2 #### [facility] [address] [place] [address] Ketone Urine Negative Normal Negative [facility] Comment on above: Performed By: #### U RIN2 #### [facility] [address] [place] [address] Leukocytes Esterase Negative Normal Negative [facility] Comment on above: Performed By: #### U RIN2 #### [facility] [address] [place] [address] Nitrites Urine Negative Normal Negative [facility] Comment on above: Performed By: #### U RIN2 #### [facility] [address] [place] [address] pH (U) 6.0 [pH] Normal 5.0-8.0 [facility] Comment on above: Performed By: #### U RIN2 #### [facility] [address] [place] [address] Protein (U) [Mass/Vol] TRACE Abnormal Negative [facility] Comment on above: Performed By: #### U RIN2 #### [facility] [address] [place], [place] [address] Specific [place], Ur 1.013 Normal 1.005-1 .03 0 [facility] Comment on above: Performed By: #### U RIN2 #### [facility] [address] [place], [place] [address] Urobilinogen,Ur 1.0 EU/dL Normal 0.2-1.0 [facility] Comment on above: Performed By: #### U RIN2 #### [facility] [address] [place], [place] [address] Daily Progress Note-Medicine on 12-18-2018 Daily Progress Note-Medicine Service: Medicine Subjective Data: NATALIE GERBER is a 58 year old Male who is Hospital Day # 7. Patient continues to have pain in his back. no other new complains appetite and bowel movements are ok waiting on precert for him to go to rehab. Objective Data: Objective Information: T PRBPSpO2 [id number]/6897% Date/Time12/18 6: 6: 6: 6: 6:00 Range(36C - 36.9C ) (69 - 75 ) (18 - 18 ) (101 - 116 )/ (65 - 74 ) (95% - 97% ) Highest temp of 36.9 C was recorded at 12/17 15:37 Pain reported at 12/18 9:19: 7 = Severe Pain reported at 12/18 9:19: 7 = Severe Physical Exam: Constitutional: General: Alert and oriented x 3. Skin: No rash or ulceration HEENT: no pallor, no icterus. no tonsillar enlargement Cardiac: Regular rate and rhythm. S1 + S2+ Lungs: clear to auscultation. good air entry, no use of accessory muscles, breath sounds normal. no rales no wheezing Abdomen: Soft, non-tender, non-distended, Bowel Sound present EXT: No lower extremity edema, pedal pulses 2 + bilateral. Neurologic: No focal deficits. CN 2 - 12 intact. Psych: Normal, no anxiety or depression. no delusions/ hallucination Medication: Medications: Continuous Medications ---- No continuous medications are active Scheduled Medications ---- 1. Amphetamine - Dextroamphetamine: 30 mg Oral Daily 2. Aspirin Enteric Coated: 81 mg Oral Daily 3. Carvedilol: 6.25 mg Oral Daily 4. Citalopram (CELEXA): 20 mg Oral Daily 5. Clopidogrel: 75 mg Oral Daily 6. Enoxaparin SubCutaneous: 60 mg SubCutaneous Every 12 Hours 7. Furosemide: 20 mg Oral Daily 8. Levothyroxine: 50 microgram(s) Oral Daily 9. Lisinopril: 20 mg Oral Daily 10. Pantoprazole: 40 mg Oral Daily 11. QUEtiapine: 100 mg Oral At Bedtime 12. Simvastatin: 40 mg Oral At Bedtime PRN Medications ---- 1. Acetaminophen: 650 mg Oral Every 4 Hours 2. Nitroglycerin SubLingual: 0.4 mg SubLingual Every 5 Minutes 3. oxyCODONE Immediate Release: 5 mg Oral Every 4 Hours 4. traMADol: 100 mg Oral Every 6 Hours Radiology Results: Results: Impression: 1. Mild-severe multilevel spondylosis which can be better evaluated with MRI as clinically indicated. 2. No evidence of traumatic malalignment or fracture. CT L Spine without Contrast [Dec 12 2018 9:32PM] Impression: 1. Mild-severe multilevel spondylosis which can be better evaluated with MRI as clinically indicated. 2. No evidence of traumatic malalignment or fracture. CT T Spine without Contrast [Dec 12 2018 9:32PM] Assessment and Plan: Assessment: Mr. Gerber is a 58 y/o with PMH of Spondylosis, CAD last [facility] 12/01/2018 (clean) hx of WI, hx of PE 99, ADHD, CVA s/p TPA 2014, PE, CHF, GERD, presented to [facility] with worsening Back pain. 1. MULTILEVEL SPONDYLOSIS, MILD TO SEVERE, worsening back pain -s/p three vertebrae fusion and laminectomy - plan for another surgery on 01/01 - PT/ OT - c/w pain medication - continues to have significant pain 2. Bipolar disorder - continue Seroquel 100 mg HS, Celexa 20 mg QD 4. CHF: - continue lasix 20 mg QD - c/w Lisinopril - no acute exacerbation - c/w coreg 5. ADHD- - continue adderall 30 mg QD - escitalopram and seroquel 6. GERD- - continue PPI 7. CAD: s/p remote WI, PE, and last [facility] was clean - c/w plavix, ASA and BB - c/w simvastatin 8. DVT prophylaxis- 60 mg Lovenox subcutaneous PPX DVT: on subcut heparin PPX GI: on PPI Disposition : PT/OT , waiting for precert before DC to [place] Code status: Full Code Electronic Signatures: Brianna Duncan) (Signed 18-Dec-2018 09:47) Authored: Service, Subjective Data, Objective Data, Assessment and Plan, Signature/Cosignature/Attest ation Last Updated: 18-Dec-2018 09:47 by Brianna Duncan) [facility] Daily Progress Note-Medicine on 12-17-2018 Daily Progress Note-Medicine Service: Medicine Subjective Data: NATALIE GERBER is a 58 year old Male who is Hospital Day # 6. @ doing well, awaiting placement. Objective Data: Objective Information: T PRBPSpO2 [id number]/7498% Date/Time12/17 6: 6: 6: 6: 6:10 Range(35.6C - 36.5C ) (74 - 82 ) (18 - 20 ) (104 - 134 )/ (62 - 74 ) (98% - 98% ) Pain reported at 12/16 18:00: 5 = Moderate Pain reported at 12/17 8:28: 7 = Severe Physical Exam: Constitutional: Constitutional: Well developed, awake/alert/oriented x3, no distress, alert and cooperative Eyes: PERRL, EOMI, clear sclera ENMT: mucous membranes moist, no apparent injury, no lesions seen Head/Neck: Neck supple, no apparent injury, thyroid without mass or tenderness, No JVD, trachea midline, no bruits Respiratory/Thorax: Patent airways, CTAB, normal breath sounds with good chest expansion, thorax symmetric Cardiovascular: heart sounds distant 2/2 body habitus Regular, rate and rhythm, no murmurs, 2+ equal pulses of the extremities Gastrointestinal: Nondistended, soft, non-tender, no rebound tenderness or guarding, no masses palpable, no organomegaly, +BS, no bruits Musculoskeletal: ROM intact, no joint swelling, normal strength Extremities: positive straight leg test in LLE Neurological: alert and oriented x3, intact senses, motor, response and reflexes, normal strength Psychological: Appropriate mood and behavior Skin: Warm and dry, no lesions, no rashes Assessment and Plan: Assessment: Mr. Gerber is a 58 y/o with PMH of HDL, CAD last [facility] 12/01/2018 (clean) hx of WI, hx of PE 99, ADD, CVA s/p TPA 2014, PE, HfpEF, GERD, presented to [facility] with worsening Back pain. 1. increase in chronic back pain: - follow up at [facility], had 3 fusion and scehduled to have another one on 01/01/2019. - no indication for MRI, - Spine floow, evaluate the images and his back is stable to work with PT. - continue home pain medication, - PT/OT eval, 2. Bipolar disorder- continue Seroquel 100 mg HS, celexa 20 mg QD 4. HFpEF: - continue lasix 20 mg QD - c/w Lisinopril - no acute exacerbation - c/w coreg 5. ADHD- continue adderall 30 mg QD escitalopram quitepine. 6. GERD- continue PPI 7. CAD: s/p remote WI, PE, and last LHC was clean - c/w plavix, ASA and BB - c/w simvastatin 8. DVT prophylaxis- 60 mg Lovenox subcutaneous PPX DVT: on subQ heparin PPX GI: on PPI Electrolytes: as needed Diet: Regular IVF: no IVF Access: PIV Dispo: PT/OT Code status: Full Code Shanon Fitzgerald M.D. General Internal Medicine [facility] (8a - 8p) p. [id number] (8p - 8a) Electronic Signatures: Shanon Fitzgerald) (Signed 17-Dec-2018 11:24) Authored: Service, Subjective Data, Objective Data, Assessment and Plan, Signature/Cosignature/Attest ation Last Updated: 17-Dec-2018 11:24 by Shanon Fitzgerald) [facility] 12-16-2018 Erythrocyte distribution width (RBC) [Ratio] Canceled [facility] Comment on above: Order Comment: TEST CBC WAS CANCELLED, 12/16/2018 20:39 NO SPECIMEN RECEIVED IN LAB. Performed By: #### C BC ####[id number] [place] [address] Hematocrit (Bld) [Volume fraction] Canceled [facility] Comment on above: Order Comment: TEST CBC WAS CANCELLED, 12/16/2018 20:39 NO SPECIMEN RECEIVED IN LAB. Performed By: #### C BC ####[id number] [place] [address] Hemoglobin (Bld) [Mass/Vol] Canceled [facility] Comment on above: Order Comment: TEST CBC WAS CANCELLED, 12/16/2018 20:39 NO SPECIMEN RECEIVED IN LAB. Performed By: #### C BC ####[id number] [place] [address] MCHC (RBC) [Mass/Vol] Canceled [facility] Comment on above: Order Comment: TEST CBC WAS CANCELLED, 12/16/2018 20:39 NO SPECIMEN RECEIVED IN LAB. Performed By: #### C BC ####[id number] [place] [address] MCV (RBC) [Entitic vol] Canceled [facility] Comment on above: Order Comment: TEST CBC WAS CANCELLED, 12/16/2018 20:39 NO SPECIMEN RECEIVED IN LAB. Performed By: #### C BC ####[id number] [place] [address] Nucleated RBC/100 WBC (Bld) [Ratio] Canceled [facility] Comment on above: Order Comment: TEST CBC WAS CANCELLED, 12/16/2018 20:39 NO SPECIMEN RECEIVED IN LAB. Performed By: #### C BC ####[id number] [place] [address] Platelets (Bld) [#/Vol] Canceled [facility] Comment on above: Order Comment: TEST CBC WAS CANCELLED, 12/16/2018 20:39 NO SPECIMEN RECEIVED IN LAB. Performed By: #### C BC ####[id number] [place] [address] RBC (Bld) [#/Vol] Canceled [facility] Comment on above: Order Comment: TEST CBC WAS CANCELLED, 12/16/2018 20:39 NO SPECIMEN RECEIVED IN LAB. Performed By: #### C BC ####[id number] [place] [address] WBC (Bld) [#/Vol] Canceled [facility] Comment on above: Order Comment: TEST CBC WAS CANCELLED, 12/16/2018 20:39 NO SPECIMEN RECEIVED IN LAB. Performed By: #### C BC ####[id number] [place] [address] Daily Progress Note-Medicine on 12-16-2018 Daily Progress Note-Medicine Service: Medicine Subjective Data: NATALIE GERBER is a 58 year old Male who is Hospital Day # 5. @ doing well, has no complaint @ awaiting placement. Objective Data: Objective Information: T PRBPSpO2 [id number]/6397% Date/Time12/16 6: 6: 6: 6: 6:15 Range(36.2C - 36.3C ) (73 - 82 ) (18 - 18 ) (102 - 127 )/ (63 - 76 ) (97% - 98% ) Pain reported at 12/16 3:35: sleeping Pain reported at 12/16 6:31: 6 = Moderate Physical Exam: Constitutional: Constitutional: Well developed, awake/alert/oriented x3, no distress, alert and cooperative Eyes: PERRL, EOMI, clear sclera ENMT: mucous membranes moist, no apparent injury, no lesions seen Head/Neck: Neck supple, no apparent injury, thyroid without mass or tenderness, No JVD, trachea midline, no bruits Respiratory/Thorax: Patent airways, CTAB, normal breath sounds with good chest expansion, thorax symmetric Cardiovascular: heart sounds distant 2/2 body habitus Regular, rate and rhythm, no murmurs, 2+ equal pulses of the extremities Gastrointestinal: Nondistended, soft, non-tender, no rebound tenderness or guarding, no masses palpable, no organomegaly, +BS, no bruits Musculoskeletal: ROM intact, no joint swelling, normal strength Extremities: positive straight leg test in LLE Neurological: alert and oriented x3, intact senses, motor, response and reflexes, normal strength Psychological: Appropriate mood and behavior Skin: Warm and dry, no lesions, no rashes Assessment and Plan: Assessment: Mr. Gerber is a 58 y/o with PMH of HDL, CAD last [facility] 12/01/2018 (clean) hx of WI, hx of PE 99, ADD, CVA s/p TPA 2014, PE, HfpEF, GERD, presented to [facility] with worsening Back pain. 1. increase in chronic back pain: - follow up at [facility], had 3 fusion and scehduled to have another one on 01/01/2019. - no indication for MRI, - Spine floow, evaluate the images and his back is stable to work with PT. - continue home pain medication, - PT/OT eval, 2. Bipolar disorder- continue Seroquel 100 mg HS, celexa 20 mg QD 4. HFpEF: - continue lasix 20 mg QD - c/w Lisinopril - no acute exacerbation - c/w coreg 5. ADHD- continue adderall 30 mg QD escitalopram quitepine. 6. GERD- continue PPI 7. CAD: s/p remote WI, PE, and last LHC was clean - c/w plavix, ASA and BB - c/w simvastatin 8. DVT prophylaxis- 60 mg Lovenox subcutaneous PPX DVT: on subQ heparin PPX GI: on PPI Electrolytes: as needed Diet: Regular IVF: no IVF Access: PIV Dispo: PT/OT Code status: Full Code Shanon Fitzgerald M.D. General Internal Medicine [facility] (8a - 8p) p. [phone] (8p - 8a) Electronic Signatures: Shanon Fitzgerald) (Signed 16-Dec-2018 09:02) Authored: Service, Subjective Data, Objective Data, Assessment and Plan, Signature/Cosignature/Attest ation Last Updated: 16-Dec-2018 09:02 by Shanon Fitzgerald) [facility] RENAL FUNCTION PANELon 12-16 Albumin [Mass/Vol] Canceled [facility] Comment on above: Order Comment: TEST RENAL FUNCTION PANEL WAS CANCELLED, 12/16/2018 20:39 NO SPECIMENRECEIVED IN LAB. Performed By: #### R ENAL ####[id number] [place] [address] Anion gap [Moles/Vol] Canceled [facility] Comment on above: Order Comment: TEST RENAL FUNCTION PANEL WAS CANCELLED, 12/16/2018 20:39 NO SPECIMENRECEIVED IN LAB. Performed By: #### R ENAL ####[id number] [place] [address] Calcium [Mass/Vol] Canceled [facility] Comment on above: Order Comment: TEST RENAL FUNCTION PANEL WAS CANCELLED, 12/16/2018 20:39 NO SPECIMENRECEIVED IN LAB. Performed By: #### R ENAL ####[id number] [place] [address] Chloride [Moles/Vol] Canceled [facility] Comment on above: Order Comment: TEST RENAL FUNCTION PANEL WAS CANCELLED, 12/16/2018 20:39 NO SPECIMENRECEIVED IN LAB. Performed By: #### R ENAL ####[id number] [place] [address] Creatinine [Mass/Vol] Canceled [facility] Comment on above: Order Comment: TEST RENAL FUNCTION PANEL WAS CANCELLED, 12/16/2018 20:39 NO SPECIMENRECEIVED IN LAB. Performed By: #### R ENAL ####[id number] [place] [address] GFR- AM. Canceled [facility] Comment on above: Order Comment: TEST RENAL FUNCTION PANEL WAS CANCELLED, 12/16/2018 20:39 NO SPECIMENRECEIVED IN LAB. Result Comment: CALC ULATIONS OF ESTIMATED GFR ARE PERFORMED USING THE MDRD STUDY EQUATION FOR THE IDMS-TRACEABLE CREATININE METHODS. CLIN CHEM 2007;53:766-72 Performed By: #### R ENAL ####[id number] [place] [address] GFR-NON AM. Canceled [facility] Comment on above: Order Comment: TEST RENAL FUNCTION PANEL WAS CANCELLED, 12/16/2018 20:39 NO SPECIMENRECEIVED IN LAB. Performed By: #### R ENAL ####[id number] [place] [address] Glucose [Mass/Vol] Canceled [facility] Comment on above: Order Comment: TEST RENAL FUNCTION PANEL WAS CANCELLED, 12/16/2018 20:39 NO SPECIMENRECEIVED IN LAB. Performed By: #### R ENAL ####[id number] [place] [address] HCO3 (Bld) [Moles/Vol] Canceled [facility] Comment on above: Order Comment: TEST RENAL FUNCTION PANEL WAS CANCELLED, 12/16/2018 20:39 NO SPECIMENRECEIVED IN LAB. Performed By: #### R ENAL ####[id number] [place] [address] Phosphate [Mass/Vol] Canceled [facility] Comment on above: Order Comment: TEST RENAL FUNCTION PANEL WAS CANCELLED, 12/16/2018 20:39 NO SPECIMENRECEIVED IN LAB. Result Comment: The performance characteristics of phosphorus testing in heparinized plasma have been validated by the individual laboratory site where testing is performed. Testing on heparinized plasma is not approved by the FDA; however, such approval is not necessary. Performed By: #### R ENAL ####[id number] [place] [address] Potassium [Moles/Vol] Canceled [facility] Comment on above: Order Comment: TEST RENAL FUNCTION PANEL WAS CANCELLED, 12/16/2018 20:39 NO SPECIMENRECEIVED IN LAB. Performed By: #### R ENAL ####[id number] [place] [address] Sodium [Moles/Vol] Canceled [facility] Comment on above: Order Comment: TEST RENAL FUNCTION PANEL WAS CANCELLED, 12/16/2018 20:39 NO SPECIMENRECEIVED IN LAB. Performed By: #### R ENAL ####[id number] [place] [address] Urea nitrogen [Mass/Vol] Canceled [facility] Comment on above: Order Comment: TEST RENAL FUNCTION PANEL WAS CANCELLED, 12/16/2018 20:39 NO SPECIMENRECEIVED IN LAB. Performed By: #### R ENAL ####[id number] [place] [address] Daily Progress Note-Medicine on 12-15-2018 Daily Progress Note-Medicine Service: Medicine Subjective Data: NATALIE GERBER is a 58 year old Male who is Hospital Day # 4. @ doing well has no complaint @ awaiting pt/ot. Objective Data: Objective Information: T PRBPSpO2 [id number]/6899% Date/Time12/15 6: 6: 6: 6: 6:10 Range(36.1C - 36.8C ) (73 - 83 ) (18 - 20 ) (112 - 135 )/ (60 - 83 ) (96% - 100% ) Pain reported at 12/14 18:00: 5 = Moderate Pain reported at 12/14 17:09: 7 = Severe Physical Exam: Constitutional: Constitutional: Well developed, awake/alert/oriented x3, no distress, alert and cooperative Eyes: PERRL, EOMI, clear sclera ENMT: mucous membranes moist, no apparent injury, no lesions seen Head/Neck: Neck supple, no apparent injury, thyroid without mass or tenderness, No JVD, trachea midline, no bruits Respiratory/Thorax: Patent airways, CTAB, normal breath sounds with good chest expansion, thorax symmetric Cardiovascular: heart sounds distant 2/2 body habitus Regular, rate and rhythm, no murmurs, 2+ equal pulses of the extremities Gastrointestinal: Nondistended, soft, non-tender, no rebound tenderness or guarding, no masses palpable, no organomegaly, +BS, no bruits Musculoskeletal: ROM intact, no joint swelling, normal strength Extremities: positive straight leg test in LLE Neurological: alert and oriented x3, intact senses, motor, response and reflexes, normal strength Psychological: Appropriate mood and behavior Skin: Warm and dry, no lesions, no rashes Assessment and Plan: Assessment: Mr. Gerber is a 58 y/o with PMH of HDL, CAD last LHC 12/01/2018 (clean) hx of WI, hx of PE 99, ADD, CVA s/p TPA 2014, PE, HfpEF, GERD, presented to [facility] with worsening Back pain. 1. increase in chronic back pain: - follow up at [facility], had 3 fusion and scehduled to have another one on 01/01/2019. - no indication for MRI, - continue home pain medication, - PT/OT eval, 2. Bipolar disorder- continue Seroquel 100 mg HS, celexa 20 mg QD 4. HFpEF: - continue lasix 20 mg QD - c/w Lisinopril - no acute exacerbation - c/w coreg 5. ADHD- continue adderall 30 mg QD escitalopram quitepine. 6. GERD- continue PPI 7. CAD: s/p remote WI, PE, and last LHC was clean - c/w plavix, ASA and BB - c/w simvastatin 8. DVT prophylaxis- 60 mg Lovenox subcutaneous PPX DVT: on subQ heparin PPX GI: on PPI Electrolytes: as needed Diet: Regular IVF: no IVF Access: PIV Dispo: PT/OT Code status: Full Code Shanon Fitzgerald M.D. [facility]. [phone] (8p - 8a) Electronic Signatures: Shanon Fitzgerald) (Signed 15-Dec-2018 07:25) Authored: Service, Subjective Data, Objective Data, Assessment and Plan, Signature/Cosignature/Attest ation Last Updated: 15-Dec-2018 07:25 by Shanon Fitzgerald) [facility] Discharge [id number] Discharge Profile2 Discharge Orders: Anticipated Discharge Date: Anticipated Discharge [id number] Anticipated Discharge Time11:46 Problem List: Additional Dx: H/O spinal fusion: Catalog Name: Arthrodesis status Potential for self care deficit: Catalog Name: Other specified personal risk factors, not elsewhere classified DNAR: DNAR Statusnone Activity: activity as tolerated. May shower. May return to school/work Instructions: May drive. Diet: Dietregular Call Provider If (Homegoing Patients): 3 or more loose, watery bowel movements in 24 hours (diarrhea). Heart Failure: Patient Instructions: - CALL 911 IF YOU HAVE ANY OF THE SIGNS AND SYMPTOMS OF HEART FAILURE: 1. Chest pain 2. Significant Shortness of breath 3. Fainting. - Notify your physician immediately if you have shortness of breath; weight gain of 3 lbs. or more; fatigue and loss of energy; swelling of lower extremities or abdomen; dizziness or fainting; change of appetite; and frequent coughing. - Patient received Living With Heart Failure book. - Daily weight on the same scale, same time after voiding and before eating. - Maintain daily weight log. Activity: - Balance activity with rest, gradually increase your activity as tolerated. - Exercise as prescribed by your physician. LVEF % at Discharge: Left Ventricular Ejection Fraction %normal in 07/2016 Heart Failure Appointment: Follow up phone call will be placed to patient on: 18-Dec-2018 (Call must be placed within 72 hours of discharge). Provider follow up with PCP on: 18-Dec-2018. Hospital Course (Home Care/Gold Form): Hospital Course: Hospital Course: include significant abnormal lab values This is a 58 year old male that presents to the ED for increase in chronic back pain and inability to ambulate at home as he has stairs and is not able to navigate the stairs at home. He was discharged from a SNF 2-3 weeks ago where he was getting rehab and using walker to ambulate. He was sent home with cane and does not feel the cane is sufficient. Patient complains of Sciatica in Left lower back that radiates down left buttock to calf. This is not new, however he states pain is worse and he cannot weight bear on LLE. Patient has ortho appointment 01/01/19 for evaluation of spinal surgery. He denies any recent trauma or fall, denies new numbness/tingling, difficulty urinating, constipation, chest pain, SOB, cough, fever, chills, or diarrhea . Infectious Disease: PPD Statusnot given MRSAno VREno C. Diffno Other Resistant Organismno Gold Form Orders: Care Recommendation: I recommend that INPATIENT care is required at:Skilled Estimated StayConvalescent stay < 30 days PrognosisGood Rehab Potential/FunctionImprove Provider CertificationI certify that inpatient care is required at the level recommended above. To the best of my knowledge, all information provided about the individual is a true and accurate reflection of the individual's condition. Therapy Orders: Occupational Therapy OrdersEval and Treat ([facility]) daily Physical Therapy OrdersEval and Treat ([facility]) daily Provider Follow Up: Physician To Follow at Skilled/RehabAttending Physician at Skilled/Rehab Brianna Duncan MD Provider FINAL REVIEW of Orders: Final Review: Final Review of Medication Reconciliation and Orders Completedby Physician Reviewing ProviderArjun Bernard MD at 18-Dec-2018 16:17:20 Gold Form - Nursing Summary: Special Treatments/Procedures (in past 14 days): Chemotherapyno Dialysisno IV Medicationno Oxygen Therapyno Transfusionsno Feverno Radiationno Ventilatorno Tracheostomyno Suctioningno Nutrition: Nutritional Statusfeeds self Sensory/Comfort: Visionadequate Hearingadequate Speechclear Elimination: Bladdercontinent Bowelcontinent Last Bowel [id number] Toiletingtoilet Safety: Siderailsno Restraintsno Sitterno Fall Riskprevious falls, weakness Medication/Hygiene/Mobility: Medication Administrationassist Bathingassist Dressingassist Bed Mobilityassist Wheelchairassist Transfersassist Ambulationassist Electronic Signatures: Arjun Bernard) (Signed 18-Dec-2018 16:19) Authored: Discharge Orders, Provider FINAL REVIEW of Orders Brianna Duncan) (Signed 18-Dec-2018 16:23) Authored: Discharge Orders, Heart Failure, Gold Form Orders, Provider FINAL REVIEW of Orders Shanon Fitzgerald) (Signed 15-Dec-2018 11:47) Authored: Discharge Orders, Hospital Course (Home Care/Gold Form), Gold Form Orders, Provider FINAL REVIEW of Orders, Gold Form - Data Center Architect Summary Jigna Vera (STAFF N) (Signed 18-Dec-2018 17:35) Authored: Discharge Orders, Gold Form - Nursing Summary Last Updated: 18-Dec-2018 17:35 by Jigna Vera (STAFF N) [facility] Daily Progress Note-Medicine on 12-14-2018 Daily Progress Note-Medicine Service: Medicine Subjective Data: NATALIE GERBER is a 58 year old Male who is Hospital Day # 3. @ doing about the same awaiting PT/OT. Objective Data: Objective Information: T PRBPSpO2 [id number]% Date/Time12/14 6: 8: 6: 8:15 6:12 Range(35.9C - 37C ) (78 - 86 ) (18 - 20 ) (88 - 119 )/ (45 - 83 ) (97% - 100% ) Highest temp of 37 C was recorded at 12/14 6:12 Pain reported at 12/14 9:30: 5 = Moderate Pain reported at 12/14 10:42: 6 = Moderate Physical Exam: Constitutional: Constitutional: Well developed, awake/alert/oriented x3, no distress, alert and cooperative Eyes: PERRL, EOMI, clear sclera ENMT: mucous membranes moist, no apparent injury, no lesions seen Head/Neck: Neck supple, no apparent injury, thyroid without mass or tenderness, No JVD, trachea midline, no bruits Respiratory/Thorax: Patent airways, CTAB, normal breath sounds with good chest expansion, thorax symmetric Cardiovascular: heart sounds distant 2/2 body habitus Regular, rate and rhythm, no murmurs, 2+ equal pulses of the extremities Gastrointestinal: Nondistended, soft, non-tender, no rebound tenderness or guarding, no masses palpable, no organomegaly, +BS, no bruits Musculoskeletal: ROM intact, no joint swelling, normal strength Extremities: positive straight leg test in LLE Neurological: alert and oriented x3, intact senses, motor, response and reflexes, normal strength Psychological: Appropriate mood and behavior Skin: Warm and dry, no lesions, no rashes Medication: Medications: Continuous Medications ---- No continuous medications are active Scheduled Medications ---- 1. Amphetamine - Dextroamphetamine: 30 mg Oral Daily 2. Aspirin Enteric Coated: 81 mg Oral Daily 3. Carvedilol: 6.25 mg Oral Daily 4. Citalopram (CELEXA): 20 mg Oral Daily 5. Clopidogrel: 75 mg Oral Daily 6. Enoxaparin SubCutaneous: 60 mg SubCutaneous Every 12 Hours 7. Furosemide: 20 mg Oral Daily 8. Levothyroxine: 50 microgram(s) Oral Daily 9. Lisinopril: 20 mg Oral Daily 10. Pantoprazole: 40 mg Oral Daily 11. QUEtiapine: 100 mg Oral At Bedtime 12. Simvastatin: 40 mg Oral At Bedtime PRN Medications ---- 1. Acetaminophen: 650 mg Oral Every 4 Hours 2. Nitroglycerin SubLingual: 0.4 mg SubLingual Every 5 Minutes 3. oxyCODONE Immediate Release: 5 mg Oral Every 4 Hours 4. traMADol: 100 mg Oral Every 6 Hours Recent Lab Results: Results: I have reviewed these laboratory results: Basic Metabolic Panel 13-Dec-2018 09:05:00 ResultValue Glucose, Serum 110 H NA 136 K 4.1 CL 102 Bicarbonate, Serum 24 Anion Gap, Serum 14 BUN 19 CREAT 0.66 GFR-Non >60 GFR- >60 Calcium, Serum 9.1 Complete Blood Count 13-Dec-2018 09:05:00 ResultValue White Blood Cell Count 8.2 Nucleated Erythrocyte Count 0.0 Red Blood Cell Count 4.20 L HGB 11.7 L HCT 39.9 L MCV 95 MCHC 29.3 L PLT 214 RDW-CV 13.9 Complete Blood Count + Differential 12-Dec-2018 19:51:00 ResultValue White Blood Cell Count 12.4 H Nucleated Erythrocyte Count 0.0 Red Blood Cell Count 4.31 L HGB 12.4 L HCT 37.0 L MCV 86 MCHC 33.5 PLT 268 RDW-CV 14.1 Neutrophil % 73.8 Immature Granulocytes % 0.6 Lymphocyte % 17.9 Monocyte % 6.4 Eosinophil % 1.0 Basophil % 0.3 Neutrophil Count 9.18 H Lymphocyte Count 2.22 Monocyte Count 0.80 Eosinophil Count 0.12 Basophil Count 0.04 Comprehensive Metabolic Panel 12-Dec-2018 18:11:00 ResultValue Glucose, Serum 122 H NA 136 K 4.4 CL 100 Bicarbonate, Serum 23 Anion Gap, Serum 17 BUN 24 H CREAT 1.03 GFR-Non >60 GFR- >60 Calcium, Serum 9.7 ALB 4.1 ALKP 143 H T Pro 7.2 T Bili 0.5 Alanine Aminotransferase, Serum 15 Aspartate Transaminase, Serum 15 Assessment and Plan: Assessment: Mr. Gerber is a 58 y/o with PMH of HDL, CAD last C 12/01/2018 (clean) hx of WI, hx of PE 99, ADD, CVA s/p TPA 2014, PE, HfpEF, GERD, presented to [facility] with worsening Back pain. 1. increase in chronic back pain: - follow up at [facility], had 3 fusion and scehduled to have another one on 01/01/2019. - no indication for MRI, - continue home pain medication, - PT/OT eval, 2. Bipolar disorder- continue Seroquel 100 mg HS, celexa 20 mg QD 4. HFpEF: - continue lasix 20 mg QD - c/w Lisinopril - no acute exacerbation - c/w coreg 5. ADHD- continue adderall 30 mg QD escitalopram quitepine. 6. GERD- continue PPI 7. CAD: s/p remote WI, PE, and last LHC was clean - c/w plavix, ASA and BB - c/w simvastatin 8. DVT prophylaxis- 60 mg Lovenox subcutaneous PPX DVT: on subQ heparin PPX GI: on PPI Electrolytes: as needed Diet: Regular IVF: no IVF Access: PIV Dispo: PT/OT Code status: Full Code Shanon Fitzgerald M.D. General Internal [facility] ([facility] - [facility]p) p. [phone] (8p - 8a) Electronic Signatures: Shanon Fitzgerald) (Signed 14-Dec-2018 11:01) Authored: Service, Subjective Data, Objective Data, Assessment and Plan, Signature/Cosignature/Attest ation Last Updated: 14-Dec-2018 11:01 by Shanon Fitzgerald) [facility] Admission Risk Screen - Adul ton 12-13-2018 Admission Risk Screen - Adult Allergies: Allergies: Nubain: Anxiety, Hives/Urticaria Toradol IV/IM: Hives/Urticaria Fish: Hives/Urticaria Patient Verification: New W ID Band Applied in my Departmentno Type of ID Patient is WearingW wristband, but not applied here Patient Transferred from Other Facility ([facility], [facility],etc)no from ED Patient Identity Verified Bypatient ID Band FULL Name, include Middle, spelling matches patient's ID used for verificationyes ID Band Matches Patient ID used for Verficationyes ID Band MRN Matches EMR MRNyes Advance Directive: Advance Directive Medicalno (1) Advance Directive Information Givenpatient/family declined (1) Falls Screen: Type of Assessmentadmission Moderate Risk Factorspatient care equipment (scds, ivs, chest tubes, schulte, etc) High Risk Factorsgait instability Risk for Injury Associated with Fallnone Fall Risk Conclusionhigh falls risk with low risk for associated injury [place] Safety InterventionsWDL *orient to call system *instruct to call for assistance before getting out of bed *non-slip footwear when patient is out of bed *call st in reach *personal items and telephone in reach *physically safe environment (no spills or clutter) *bed in lowest position with wheels locked *appropriate side rails in place *room/bathroom lighting operational, light cord in reach *appropriate signage on door Fall and Injury Risk Interventionssupervised toileting (mandatory for all high risk patients), exit (bed/chair) alarms (mandatory for all high risk patients) Family Violence Screen: Are you or have you been threatened or abused physically, emotionally, or sexually by anyoneno Do you feel UNSAFE going back to the place where you are livingno Clinical assessment: Are there any apparent signs of injuries/behaviors that could be related to abuse/neglectno Social Service Consult for abuse/neglect needed this visitno Functional screen: Functional Screen: In the recent/past 2-4 weeks, patient or family have noticedno issues that require a rehabilitation consult at this time Learning Assessment (Patient): Patient is Able to be Assessed for Learningyes Factors Influencing Readiness to Learnpain Factors that Impact Ability to Learnnone Devices/Methods Used to Communicateglasses Learning Preferencesverbal instruction Cultural Considerationsnone Developmental Considerationsnone Jehovah'S Witness Considerationsnone Learning Assessment (Other Learner): Other learner availableno Suicide/Depression Screen: During the past month, have you often been bothered by feeling down, depressed or hopelessno During the past month, have you often had little interest or pleasure in doing thingsno Have you had any thoughts of harming yourselfno Have you had any thoughts of harming anyone elseno (2) Adult Nutrition Screen: Have you recently lost weight without tryingno Have you been eating poorly because of a decreased appetiteno Malnutrition Screening Tool Score0 Malnutrition Screening Tool RiskMST = 0 or 1 Not at risk. Eating well with little or no weight loss Nutrition Consult needed this visitno Can Patient Participate in Room Serviceyes Patient requires Paper Dishes/Plastic Utensilsno Pain Screen: Pain Scalenumerical 0-10 Pain Scale Educationteaching provided Current Pain Level5 = Moderate Acceptable Pain Level3 = Mild Expression of Pain (nonverbal)verbalization Chronic Painyes Chronic Back pain locationback Spiritual Screen: Are there any cultural, spiritual, protestant practices/values/needs that are important for us to knowno CAGE: Is this an injured patient at a Trauma Center ([facility]/[place]): no (1) Vaccinations: Vaccination - Influenza Vaccination Screen: Is it flu season (between and September 29)No Vaccination - Pneumonia Vaccination Screen: Patient has received a previous pneumonia vaccine:no/unknown... Immunocompetent persons with underlying chronic conditions or reside in link trainer mechanic care facilitieschronic heart disease (excluding hypertension) Persons with Functional or Anatomic Asplenianone of these conditions Immunocompromised Personsnone of these conditions Pneumonia vaccine NOT indicated due to:patient/caregiver refusal at this time Martin: Skin - Martin Scale: Martin: Sensory Perception (response to environment)(4) no impairment Martin: Moisture (degree skin exposed to moisture)(4) rarely moist Martin: Activity (ability to walk)(1) bedfast Martin: Mobility (amount/control of body movement)(3) slightly limited Martin: Nutrition (quality of food intake)(3) adequate Martin: Friction and Shear(3) no apparent problem Martin: Score18 Skin Intervention Orders (Nursing orders will be generated)elevate heels, up in chair < 1 hr intervals, turn side to side every 2 hrs, assess for therapeutic equipment, assess pressure points, hygiene care, toilet/ADL every 2 hrs awake, toilet/ADL every 4 hrs asleep, educate prevent/treat pressure ulcer Significant Indicatiors: Significant Indicators: Complete Pressure Injury: Pressure Injury Present on Admissionno Electronic Signatures: Pilar Campuzano (RN) (Signed 13-Dec-2018 03:08) Authored: Admission Risk Screens, Vaccinations, Martin, Pressure Injury Last Updated: 13-Dec-2018 03:08 by Pilar Campuzano (RN) References: 1. Data Referenced From Risk Screen - Adult Emergency" 12/12/2018 4:54 PM 2. Data Referenced From "Triage - ED" 12/12/2018 4:47 PM [facility] BASIC METABOLIC PANELon 11-30 Anion gap [Moles/Vol] 14 mmol/L Normal 10 - 20 [facility] Comment on above: Performed By: #### B MP ####[id number] [place] [address] Calcium [Mass/Vol] 9.1 mg/dL Normal 8.6 - 10.6 [facility] Comment on above: Performed By: #### B MP ####[id number] [place] [address] Chloride [Moles/Vol] 102 mmol/L Normal 98 - 107 [facility] Comment on above: Performed By: #### B MP ####[id number] [place] [address] Creatinine [Mass/Vol] 0.66 mg/dL Normal 0.50 - 1.30 [facility] Comment on above: Performed By: #### B MP ####[id number] [place] [address] GFR- AM. >60 Normal >60 [facility] Comment on above: Result Comment: CALC ULATIONS OF ESTIMATED GFR ARE PERFORMED USING THE MDRD STUDY EQUATION FOR THE IDMS-TRACEABLE CREATININE METHODS. CLIN CHEM 2007;53:766-72 Performed By: #### B MP ####[id number] [place] [address] GFR-NON AM. >60 Normal >60 [facility] Comment on above: Performed By: #### B MP ####[id number] [place] [address] Glucose [Mass/Vol] 110 mg/dL High 74 - 99 [facility] Comment on above: Performed By: #### B MP ####[id number] [place] [address] HCO3 (Bld) [Moles/Vol] 24 mmol/L Normal 21 - 32 [facility] Comment on above: Performed By: #### B MP ####[id number] [place] [address] Potassium [Moles/Vol] 4.1 mmol/L Normal 3.5 - 5.3 [facility] Comment on above: Performed By: #### B MP ####[id number] [place] [address] Sodium [Moles/Vol] 136 mmol/L Normal 136 - 145 [facility] Comment on above: Performed By: #### B MP ####[id number] [place] [address] Urea nitrogen [Mass/Vol] 19 mg/dL Normal 6 - 23 [facility] Comment on above: Performed By: #### B MP ####[id number] [place] [address] CBCon 12-13-2018 Erythrocyte distribution width (RBC) [Ratio] 13.9 % Normal 11.5 - 14.5 [facility] Comment on above: Performed By: #### C BC ####[id number] [place] [address] Hematocrit (Bld) [Volume fraction] 39.9 % Low 41.0 - 52.0 [facility] Comment on above: Performed By: #### C BC ####[id number] [place] [address] Hemoglobin (Bld) [Mass/Vol] 11.7 g/dL Low 13.5 - 17.5 [facility] Comment on above: Performed By: #### C BC ####[id number] [place] [address] MCHC (RBC) [Mass/Vol] 29.3 g/dL Low 32.0 - 36.0 [facility] Comment on above: Performed By: #### C BC ####[id number] [place] [address] MCV (RBC) [Entitic vol] 95 fL Normal 80 - 100 [facility] Comment on above: Performed By: #### C BC ####[id number] [place] [address] Nucleated RBC/100 WBC (Bld) [Ratio] 0.0 /100 WBC Normal 0.0-0.0 [facility] Comment on above: Performed By: #### C BC ####[id number] [place] [address] Platelets (Bld) [#/Vol] 214 10*3/uL Normal 150 - 450 [facility] Comment on above: Performed By: #### C BC ####[id number] [place] [address] RBC (Bld) [#/Vol] 4.20 x10E12/L Low 4.50 - 5.90 [facility] Comment on above: Performed By: #### C BC ####[id number] [place] [address] WBC (Bld) [#/Vol] 8.2 10*3/uL Normal 4.4 - 11.3 [facility] Comment on above: Performed By: #### C BC ####[id number] [place] [address] Daily Progress Note-Medicine on 12-13-2018 Daily Progress Note-Medicine Service: Medicine Subjective Data: NATALIE GERBER is a 58 year old Male who is Hospital Day # 2. @ doing ok, has surgery scheduled on the . @ Pt/OT ordered. Objective Data: Objective Information: T PRBPSpO2 [id number]% Date/Time12/13 6: 6: 6: 6: 6:25 Range(36C - 36.6C ) (84 - 92 ) (18 - 20 ) (107 - 147 )/ (71 - 115 ) (92% - 97% ) Pain reported at 12/13 1:20: sleeping Pain reported at 12/13 10:17: 7 = Severe Physical Exam: Constitutional: Constitutional: Well developed, awake/alert/oriented x3, no distress, alert and cooperative Eyes: PERRL, EOMI, clear sclera ENMT: mucous membranes moist, no apparent injury, no lesions seen Head/Neck: Neck supple, no apparent injury, thyroid without mass or tenderness, No JVD, trachea midline, no bruits Respiratory/Thorax: Patent airways, CTAB, normal breath sounds with good chest expansion, thorax symmetric Cardiovascular: heart sounds distant 2/2 body habitus Regular, rate and rhythm, no murmurs, 2+ equal pulses of the extremities Gastrointestinal: Nondistended, soft, non-tender, no rebound tenderness or guarding, no masses palpable, no organomegaly, +BS, no bruits Musculoskeletal: ROM intact, no joint swelling, normal strength Extremities: positive straight leg test in LLE Neurological: alert and oriented x3, intact senses, motor, response and reflexes, normal strength Psychological: Appropriate mood and behavior Skin: Warm and dry, no lesions, no rashes Medication: Medications: Continuous Medications ---- No continuous medications are active Scheduled Medications ---- 1. Amphetamine - Dextroamphetamine: 30 mg Oral Daily 2. Aspirin Enteric Coated: 81 mg Oral Daily 3. Carvedilol: 6.25 mg Oral Daily 4. Citalopram (CELEXA): 20 mg Oral Daily 5. Clopidogrel: 75 mg Oral Daily 6. Enoxaparin SubCutaneous: 60 mg SubCutaneous Every 12 Hours 7. Furosemide: 20 mg Oral Daily 8. Levothyroxine: 50 microgram(s) Oral Daily 9. Lisinopril: 20 mg Oral Daily 10. Pantoprazole: 40 mg Oral Daily 11. QUEtiapine: 100 mg Oral At Bedtime 12. Simvastatin: 40 mg Oral At Bedtime PRN Medications ---- 1. Acetaminophen: 650 mg Oral Every 4 Hours 2. Nitroglycerin SubLingual: 0.4 mg SubLingual Every 5 Minutes 3. oxyCODONE Immediate Release: 5 mg Oral Every 4 Hours 4. traMADol: 100 mg Oral Every 6 Hours Recent Lab Results: Results: I have reviewed these laboratory results: Basic Metabolic Panel 13-Dec-2018 09:05:00 ResultValue Glucose, Serum 110 H NA 136 K 4.1 CL 102 Bicarbonate, Serum 24 Anion Gap, Serum 14 BUN 19 CREAT 0.66 GFR-Non >60 GFR- >60 Calcium, Serum 9.1 Complete Blood Count 13-Dec-2018 09:05:00 ResultValue White Blood Cell Count 8.2 Nucleated Erythrocyte Count 0.0 Red Blood Cell Count 4.20 L HGB 11.7 L HCT 39.9 L MCV 95 MCHC 29.3 L PLT 214 RDW-CV 13.9 Complete Blood Count + Differential 12-Dec-2018 19:51:00 ResultValue White Blood Cell Count 12.4 H Nucleated Erythrocyte Count 0.0 Red Blood Cell Count 4.31 L HGB 12.4 L HCT 37.0 L MCV 86 MCHC 33.5 PLT 268 RDW-CV 14.1 Neutrophil % 73.8 Immature Granulocytes % 0.6 Lymphocyte % 17.9 Monocyte % 6.4 Eosinophil % 1.0 Basophil % 0.3 Neutrophil Count 9.18 H Lymphocyte Count 2.22 Monocyte Count 0.80 Eosinophil Count 0.12 Basophil Count 0.04 Comprehensive Metabolic Panel 12-Dec-2018 18:11:00 ResultValue Glucose, Serum 122 H NA 136 K 4.4 CL 100 Bicarbonate, Serum 23 Anion Gap, Serum 17 BUN 24 H CREAT 1.03 GFR-Non >60 GFR- >60 Calcium, Serum 9.7 ALB 4.1 ALKP 143 H T Pro 7.2 T Bili 0.5 Alanine Aminotransferase, Serum 15 Aspartate Transaminase, Serum 15 Coagulation Screen 12-Dec-2018 18:11:00 ResultValue Prothrombin Time, Plasma 11.7 International Normalized Ratio, Plasma 1.1 Activated Partial Thromboplastin Time 32 Radiology Results: Results: Impression: 1. Mild-severe multilevel spondylosis which can be better evaluated with MRI as clinically indicated. 2. No evidence of traumatic malalignment or fracture. CT L Spine without Contrast [Dec 12 2018 9:32PM] Impression: 1. Mild-severe multilevel spondylosis which can be better evaluated with MRI as clinically indicated. 2. No evidence of traumatic malalignment or fracture. CT T Spine without Contrast [Dec 12 2018 9:32PM] Impression: [Multilevel discogenic degenerative change of the thoracolumbar spine, most significant over the L3-L4 and L4-L5 interspace. No evidence of traumatic malalignment or fracture.] CT L Spine without Contrast [Dec 12 2018 8:55PM] Impression: [Multilevel discogenic degenerative change of the thoracolumbar spine, most significant over the L3-L4 and L4-L5 interspace. No evidence of traumatic malalignment or fracture.] CT T Spine without Contrast [Dec 12 2018 8:55PM] Assessment and Plan: Assessment: Mr. Gerber is a 58 y/o with PMH of HDL, CAD last [facility] 12/01/2018 (clean) hx of WI, hx of PE 99, ADD, CVA s/p TPA 2014, PE, HfpEF, GERD, presented to [facility] with worsening Back pain. 1. increase in chronic back pain: - follow up at [facility], had 3 fusion and scehduled to have another one on 01/01/2019. - no indication for MRI, - continue home pain medication, - PT/OT eval, 2. Bipolar disorder- continue Seroquel 100 mg HS, celexa 20 mg QD 4. HFpEF: - continue lasix 20 mg QD - c/w Lisinopril - no acute exacerbation - c/w coreg 5. ADHD- continue adderall 30 mg QD escitalopram quitepine. 6. GERD- continue PPI 7. CAD: s/p remote WI, PE, and last [facility] was clean - c/w plavix, ASA and BB - c/w simvastatin 8. DVT prophylaxis- 60 mg Lovenox subcutaneous PPX DVT: on subQ heparin PPX GI: on PPI Electrolytes: as needed Diet: Regular IVF: no IVF Access: PIV Dispo: PT/OT Code status: Full Code Shanon Fitzgerald M.D. General Internal Medicine [facility] (8a - 8p) p. [id number] (8p - 8a) Electronic Signatures: Shanon Fitzgerald) (Signed 13-Dec-2018 11:55) Authored: Service, Subjective Data, Objective Data, Assessment and Plan, Signature/Cosignature/Attest ation Last Updated: 13-Dec-2018 11:55 by Shanon Fitzgerald) Normal [facility] Discharge Planning Noteon Discharge Planning Note Patient Learning: Factors that Impact Ability to Learnnone(1) Other Factors: Functional Screen: In the recent/past 2-4 weeks, patient or family have noticedno issues that require a rehabilitation consult at this time(1) Discharge Planning: Discharge Planning: Admission Note: 12/12/18 23:10 Pt comes from home after recent discharge from SNF. He was admitted with increased back pain and pain in his left leg. Pt has an appointment for spinal surgery work-up in December. He is c/o 5/10 pain a this time. VSS. Awaiting MD orders. Pilar Campuzano RN. 12/14/18 Supervisor Cell Maintenance Note Met with patient regarding discharge planning and home going needs. Per patient, they live at home with his brother. Patient states their primary support person during hospitalization is Jarrod Gerber [phone]. Patient states they are independent with ADL's and uses cane with ambulation. Denies a history of falls. Denies current home care, or need for home care. Patient states they feel safe at home. Denies transportation/social work/financial needs. Denies any spiritual/cultural/religous considerations regarding discharge planning. Denies supplemental home O2. Patient states they are able to afford/obtain medications. Patient uses [facility] for prescriptions. Patient's PCP is Dr. Boyce. Verified patient's address and contact information. Anticipate patient to go to [place] 01/01. patient pending PT /OT eval. Patient states if rec'd SNF he would like to go to [facility]. Will continue to follow and will update accordingly. Isidro Bergeron RNexhibit specialist Coordinator pager# [phone] 12/15/18 12:00pm Patient Community Engagement Leader Note: Navigator met with patient to discuss snf preference. [facility] and (any of the other [facility] facilities) has decline to allow patient to return d/t behavioral issues during last admission. Patient is aware and have preference 1. [facility] [place] 2. [facility] [place] 3. [facility] [place]. Pending review/acceptance. Navigator will continue to follow. (Katie Heaton, Patient Community Engagement Leader) 12/16/18 3:30pm Patient Community Engagement Leader Note: [facility] and [facility] have declined. [facility] will do onsite visit in AM(12/17) before making their final decision. Navigator will update and continue to follow. (Katie Heaton Patient Community Engagement Leader) 12/17/18 12:30pm Patient Community Engagement Leader Note: Navigator received message via [facility] facility([facility]) able to accept. Liaison will do onsite visit this afternoon. Navigator requested facility to begin precert process. Navigator will continue to follow. (Katie Heaton, Patient Community Engagement Leader) DC note 12-18-18 4515 Patient DC to [facility]. Report called to Noem[facility]. Patient given copy of DC instructions. Jigna Vera RN Final Disposition/Discharge: Disposition/Discharge Information: Discharge/Transfer Information: Discharge/Transfer Date/[id number] 17:50 Discharge Modewheelchair Transportation Methodtransportation service Valuables/Medications/Belong ings [facility] Electronic Signatures: Isidro Bergeron (RN) (Signed 14-Dec-2018 17:28) Authored: Discharge Planning Note Pilar Campuzano (RN) (Signed 13-Dec-2018 03:26) Authored: Discharge Planning Note Jigna Vera (STAFF N) (Signed 18-Dec-2018 18:06) Authored: Discharge Planning Note, Final Disposition/Discharge Katie Heaton (PCN) (Signed 17-Dec-2018 12:57) Authored: Discharge Planning Note Last Updated: 18-Dec-2018 18:06 by Jigna Vera (STAFF N) References: 1. Data Referenced From Admission Risk Screen - Adult" 12/13/2018 3:05 AM [facility] History and Physicalon 12-13 History and Physical History of Present Illness: Admission Reason: back pain, inability to ambulate HPI: This is a 58 year old male that presents to the ED for increase in chronic back pain and inability to ambulate at home as he has stairs and is not able to navigate the stairs at home. He was discharged from a SNF 2-3 weeks ago where he was getting rehab and using walker to ambulate. He was sent home with cane and does not feel the cane is sufficient. Patient complains of Sciatica in Left lower back that radiates down left buttock to calf. This is not new, however he states pain is worse and he cannot weight bear on LLE. Patient has ortho appointment 01/01/19 for evaluation of spinal surgery. He denies any recent trauma or fall, denies new numbness/tingling, difficulty urinating, constipation, chest pain, SOB, cough, fever, chills, or diarrhea . Medical History Chest pain s/p cardiac cath 12/01/18, History of CVA with TPA, GERD, Shoulder pain, Hypothyroidism, High blood pressure, Bipolar disorder, ADHD, Morbid obesity, PE Procedure history: Left Heart Catheterization, left ventriculogram. on 12/01/2018 Total Hip Replacement LEFT BACK SX 2010 HERNIA REPAIR. Cholecystectomy Home medications Adderall 30 mg oral tablet 30 mg = 1 tabs, ORAL, DAILY amphetamine-dextroamphetamin e 10 mg oral tablet 30 mg = 3 tabs, ORAL, DAILY aspirin 81 mg oral tablet 81 mg = 1 tabs, ORAL, DAILY WITH BREAKFAST CeleXA 20 mg oral tablet 20 mg = 1 tabs, ORAL, DAILY Coreg 6.25 mg oral tablet 12.5 mg = 2 tabs, ORAL, BIDWM Lasix 20 mg oral tablet 1 caps, ORAL, DAILY NexIUM 40 mg oral delayed release capsule 40 mg = 1 caps, ORAL, DAILY Nitrostat 0.4 mg sublingual tablet 0.4 mg = 1 tabs, PRN, Sublingual, Q5MIN Plavix 75 mg oral tablet 75 mg = 1 tabs, ORAL, DAILY SEROquel 100 mg oral tablet 100 mg = 1 tabs, ORAL, QHS simvastatin 40 mg oral tablet 40 mg = 1 tabs, ORAL, QHS Synthroid 50 mcg (0.05 mg) oral tablet 50 mcg = 1 tabs, ORAL, DAILY BEFORE traMADol 50 mg oral tablet 100 mg = 2 tabs, PRN, ORAL, [id number] Zestril 20 mg oral tablet 20 mg = 1 tabs, ORAL, DAILY Result Detail Heart & Vascular Studies: Cardiac Catheterization-Report Exam Date:12/01/2018 13:41:00Report Date:12/01/2018 13:43:00 [facility] Provider: Status:FInterpreting Physician: Cardiac Catheterization-Report - Freetext Note * Patient: NATALIE GERBER Age: 58 years Sex: Male : 1960 Associated Diagnoses: None Author: DEVYN FERRER MD Indication: 58-year-old man presenting with chest pain suspicious for angina. Urgent heart catheterization was therefore recommended. Procedure: After informed consent was obtained, patient was brought to the cardiac Edging Machine Feeder. He is prepped and draped in usual sterile fashion. We attempted to access the right radial artery. Unable to cannulate the right radial vessel. We therefore moved onto the femoral approach. 2% Xylocaine solution was infiltrated in the right femoral area. A 6 [place] vascular sheath was inserted into the right femoral artery using Seldinger technique with no difficulty. Diagnostic coronary angiography was performed using a JL 3.5 cath image the left coronary artery and a JR4 catheter to image the right coronary artery. The JR4 catheter was used to perform left heart catheterization. Patient tolerated the procedure well and there were no complications. Following the procedure, the vascular sheath was removed and hemostasis obtained using an Angio-Seal device. Patient was transferred to the recovery area in stable condition peer Findings: Left main normal LAD normal Circumflex large dominant and normal RCA small nondominant and angiographically normal Left heart catheterization densities an LVEDP of 27 mmHg. Left ventricular angiography shows normal LV function. No mitral regurgitation and no gradient across aortic valve upon pullback. Summary: 1. Angiographically normal coronary arteries. 2. Normal LV function. Comorbidities: Comorbid Conditionshypertension Allergies: Nubain: Anxiety, Hives/Urticaria Toradol IV/IM: Hives/Urticaria Fish: Hives/Urticaria Medications Prior to Admission: Outpatient Meds have been reviewed. listed below HPI. Review of Systems: Constitutional: NEGATIVE: Fever, Chills, Anorexia, Weight Loss, Malaise Eyes: NEGATIVE: Blurry Vision, Drainage, Diploplia, Redness, Vision Loss/ Change ENMT: NEGATIVE: Nasal Discharge, Nasal Congestion, Ear Pain, Mouth Pain, Throat Pain Respiratory: NEGATIVE: Dry Cough, Productive Cough, Hemoptysis, Wheezing, Shortness of Breath Cardiac: NEGATIVE: Chest Pain, Dyspnea on Exertion, Orthopnea, Palpitations, Syncope Gastrointestinal: NEGATIVE: Nausea, Vomiting, Diarrhea, Constipation, Abdominal Pain Genitourinary: NEGATIVE: Discharge, Dysuria, Flank Pain, Frequency, Hematuria Musculoskeletal: POSITIVE: Decreased ROM, Pain, Weakness; NEGATIVE: Swelling, Stiffness Neurological: NEGATIVE: Dizziness, Confusion, Headache, Seizures, Syncope Psychiatric: NEGATIVE: Mood Changes, Anxiety, Hallucinations, Sleep Changes, Suicidal Ideas Skin: NEGATIVE: Mass, Pain, Pruritus, Rash, Ulcer Endocrine: NEGATIVE: Heat Intolerance, Cold Intolerance, Sweat, Polyuria, Thirst Hematologic/Lymph: NEGATIVE: Anemia, Bruising, Easy Bleeding, Night Sweats, Petechiae Allergic/Immunologic: NEGATIVE: Anaphylaxis, Itchy/ Teary Eyes, Itching, Sneezing, Swelling Objective: Objective Information: T PRBPSpO2 [id number]% Date/Time12/12 21: 21: 21: 21: 21:30 Range(36.5C - 36.6C ) (84 - 90 ) (18 - 20 ) (107 - 147 )/ (77 - 115 ) (96% - 97% ) Pain reported at 12/12 19:57: 7 = Severe T PRBPSpO2 [id number]% Date/Time12/12 21: 21: 21: 21: 21:30 Range(36.5C - 36.6C ) (84 - 90 ) (18 - 20 ) (107 - 147 )/ (77 - 115 ) (96% - 97% ) Pain reported at 12/12 19:57: 7 = Severe Weights 12/12 16:47: Weight in lbs ((lbs)) 315 12/12 16:47: Weight in kg (Weight (kg)) 142.8 12/12 16:47: BMI (kg/m2) (BMI (kg/m2)) 52.388 Physical Exam: Constitutional: Well developed, awake/alert/oriented x3, no distress, alert and cooperative Eyes: PERRL, EOMI, clear sclera ENMT: mucous membranes moist, no apparent injury, no lesions seen Head/Neck: Neck supple, no apparent injury, thyroid without mass or tenderness, No JVD, trachea midline, no bruits Respiratory/Thorax: Patent airways, CTAB, normal breath sounds with good chest expansion, thorax symmetric Cardiovascular: heart sounds distant 2/2 body habitus Regular, rate and rhythm, no murmurs, 2+ equal pulses of the extremities Gastrointestinal: Nondistended, soft, non-tender, no rebound tenderness or guarding, no masses palpable, no organomegaly, +BS, no bruits Musculoskeletal: ROM intact, no joint swelling, normal strength Extremities: positive straight leg test in LLE Neurological: alert and oriented x3, intact senses, motor, response and reflexes, normal strength Psychological: Appropriate mood and behavior Skin: Warm and dry, no lesions, no rashes Medications: Medications: Continuous Medications ---- No continuous medications are active Scheduled Medications ---- 1. Amphetamine - Dextroamphetamine: 30 mg Oral Daily 2. Aspirin Enteric Coated: 81 mg Oral Daily 3. Carvedilol: 6.25 mg Oral Daily 4. Citalopram (CELEXA): 20 mg Oral Daily 5. Clopidogrel: 75 mg Oral Daily 6. Furosemide: 20 mg Oral Daily 7. Levothyroxine: 50 microgram(s) Oral Daily 8. Lisinopril: 20 mg Oral Daily 9. Pantoprazole: 40 mg Oral Daily 10. QUEtiapine: 100 mg Oral At Bedtime 11. Simvastatin: 40 mg Oral At Bedtime PRN Medications ---- 1. Nitroglycerin SubLingual: 0.4 mg SubLingual Every 5 Minutes 2. traMADol: 100 mg Oral Every 6 Hours Recent Lab Results: Results: CBC: 12/12/2018 19:51 \\ Hgb / \\ 12.4 L / WBC Plt 12.4 H 268 / Hct \\ / 37.0 L \\ RBC: 4.31 L MCV: 86 Neutrophil %: 73.8 CMP: 12/12/2018 18:11 NA+ Cl- BUN / 136 100 24 H / ---- Glucose 122 H K+ HCO3- Creat \\ 4.4 23 1.03 \\ \\ T Bili / \\ 0.5 / AST x ---- x ALT null x ---- x 15 / Alk P \\ / 143 H \\ Calcium : 9.7 Anion Gap : 17 Albumin : 4.1 T Protein : 7.2 Coagulation: 12/12/2018 18:11 PT / 11.7 / -------< INR < 1.1 PTT\\ 32 \\ I have reviewed these laboratory results: Complete Blood Count + Differential 12-Dec-2018 19:51:00 ResultValue White Blood Cell Count 12.4 H Nucleated Erythrocyte Count 0.0 Red Blood Cell Count 4.31 L HGB 12.4 L HCT 37.0 L MCV 86 MCHC 33.5 PLT 268 RDW-CV 14.1 Neutrophil % 73.8 Immature Granulocytes % 0.6 Lymphocyte % 17.9 Monocyte % 6.4 Eosinophil % 1.0 Basophil % 0.3 Neutrophil Count 9.18 H Lymphocyte Count 2.22 Monocyte Count 0.80 Eosinophil Count 0.12 Basophil Count 0.04 Comprehensive Metabolic Panel 12-Dec-2018 18:11:00 ResultValue Glucose, Serum 122 H NA 136 K 4.4 CL 100 Bicarbonate, Serum 23 Anion Gap, Serum 17 BUN 24 H CREAT 1.03 GFR-Non >60 GFR- >60 Calcium, Serum 9.7 ALB 4.1 ALKP 143 H T Pro 7.2 T Bili 0.5 Alanine Aminotransferase, Serum 15 Aspartate Transaminase, Serum 15 Coagulation Screen 12-Dec-2018 18:11:00 ResultValue Prothrombin Time, Plasma 11.7 International Normalized Ratio, Plasma 1.1 Activated Partial Thromboplastin Time 32 Radiology Results: Results: No Results have been selected. Please select Results from the Available Results list before marking as Reviewed. Impression: 1. Mild-severe multilevel spondylosis which can be better evaluated with MRI as clinically indicated. 2. No evidence of traumatic malalignment or fracture. CT L Spine without Contrast [Dec 12 2018 9:32PM] Impression: 1. Mild-severe multilevel spondylosis which can be better evaluated with MRI as clinically indicated. 2. No evidence of traumatic malalignment or fracture. CT T Spine without Contrast [Dec 12 2018 9:32PM] Impression: [Multilevel discogenic degenerative change of the thoracolumbar spine, most significant over the L3-L4 and L4-L5 interspace. No evidence of traumatic malalignment or fracture.] CT L Spine without Contrast [Dec 12 2018 8:55PM] Impression: [Multilevel discogenic degenerative change of the thoracolumbar spine, most significant over the L3-L4 and L4-L5 interspace. No evidence of traumatic malalignment or fracture.] CT T Spine without Contrast [Dec 12 2018 8:55PM] Assessment and Plan: Assessment: Assessment & Plan 1. increase in chronic back pain- ongoing, consider MRI, consider neuro vs ortho consult, continue home pain medication, PT/OT eval, consult SW for discharge planning may need to go to rehab 2. inability to ambulate- pt can walk but cannot navigate stairs at home, PT/OT eval 3. Bipolar disorder- continue Seroquel 100 mg HS, celexa 20 mg QD 4. HTN- continue lasix 20 mg QD 5. ADHD- continue adderall 30 mg QD 6. GERD- continue PPI 7. FEN- low sodium 8. DVT prophylaxis- 60 mg Lovenox subcutaneous Signatures/Attestation/Certi fication: Note Completion: Provider/Team Pager #[phone] Attending Only - Shared Visit with Advanced Practice ProviderThis is a shared visit. I have reviewed the Advanced Practice Providers encounter note, approve the Advanced Practice Providers documentation, and provide the following additional information from my personal encounter. Comments/ Additional Findings Discussed patient with BEN. Agree with plan of care. Briefly this is a 58 yo male that presents with essentially chronic back pain which has been gradually getting worse until presentation to this hospital. Discharged 2-3 weeks ago from a SNF and now has difficulty with ambulation. History of back surgery reported in 2009. Also as stated has an appointment to see an orthopedics or neurosurgeon for evaluation for future spinal surgery. Reviewed vitals, labs and imaging pertaining to this patient. Can consider MRI in AM non-emergently as well as either neurosurgery or orthopedic surgery (whoever is nascar pit crew person for spinal surgery coverage) to evaluate patient however doubt would recommend an inpatient procedure. PT/OT/SW/CC involved in patient care. As this is a worsening of a chronic condition, I have placed patient in observation status. May consider change if there is something acute that will be done to address patient's presenting problems. ADM Certification: Attending Provider Inpatient Certification StatementObservation patient/other outpatient visits Electronic Signatures: Mikey Desai (DO) (Signed 13-Dec-2018 02:52) Authored: Signatures/Attestation/Certi fication Nevaeh Thurman (CIVIL ENGINEERING DESIGN DRAFTSPERSON-PHP WORD[employer] DEVELOPER) (Signed 12-Dec-2018 23:31) Authored: History of Present Illness, Comorbidities, Allergies, Medications Prior to Admission, Review of Systems, Objective, Assessment and Plan, Signatures/Attestation/Certi fication Last Updated: 13-Dec-2018 02:52 by Mikey Desai () [facility] Patient Profile - Adult v2on 12-13-2018 Patient Profile - Adult v2 Profile: Initial Info: How to be AddressedGucho Spoken Language PreferredEnglish (1) Are you currently using the Personal Electronic Health Record or [employer] Wireless Internetno Stated Reason for Admissionmy left leg was hurting and I couldn't walk on it Arrived Fromemergency department Patient Belongingsremains with patient Patient Belongings Remaining with Patientclothing; cell phone/electronics Medications Brought to Hospitalno General Health: Weight in kg144.2 kilogram(s) Weight in tft628.9 pound(s) Height in cm165.1 centimeter(s) BMI (kg/m2)52.901 square meter Weight Methodactual (measured) Scale Typebed Height Methodstated [facility] Based Care: How would you like to participate in your carecommunication What is the number one concern for you during this hospitalizationgetting better What is the most important thing we can do to support you during this hospitalizationgetting better Is there anything we need to know to best care for youno Substance: Current or Former Substance Use never: Cigarette/Tobacco(2), e-Cigarette/Vaping(2), Alcohol(2), Street Drugs(2) Health Mgmt: Symptoms/Conditions Managed at Homecardiovascular Cardiovascular Symptoms/Conditionshypertens ion Cardiovascular Management Strategiesmedication therapy Cardiovascular Managementmanaged Relationship/Environ: Primary Source of Support/Comfortspouse Lives Withalone Living Arrangementshouse Resource/Environmental Concernsnone Anticipated Transition [place] with help/services Services Anticipated at Transitionrehabilitation services Significant IndicatorsComplete Information Review: Allergies, Home Meds and Significant Events have been Reviewed and Verified with Patient/Familyyes ALLERGY, INTOLERANCE, ADVERSE EVENT: Allergies: Nubain: Drug, Anxiety, Hives/Urticaria, Active Toradol IV/IM: Drug, Hives/Urticaria, Active Fish: Food, Hives/Urticaria, Active Electronic Signatures: Pilar Campuzano) (Signed 13-Dec-2018 03:19) Authored: Profile, Additional Information Last Updated: 13-Dec-2018 03:19 by Pilar Campuzano (GABO) References: 1. Data Referenced From "Triage - ED" 12/11/2018 8:55 PM 2. Data Referenced From Risk Screen - Adult Emergency" 12/12/2018 4:54 PM [facility] CBC AND DIFFERENTIALon 12-12 % AUTOMATED IMMATURE GRAN 0.6 % Normal 0.0 - 0.9 [facility] Comment on above: Result Comment: Perc ent differential counts (%) should be interpreted in the context of the absolute cell counts (cells/L). Performed By: #### C BCDF #### [facility] [address] [place] [address] Basophils (Bld) [#/Vol] 0.04 10*3/uL Normal 0.00 - 0.10 [facility] Comment on above: Performed By: #### C BCDF #### [facility] [address] [place] [address] Basophils/100 WBC (Bld) 0.3 % Normal 0.0 - 2.0 [facility] Comment on above: Performed By: #### C BCDF #### [facility] [address] [place] [address] Eosinophils (Bld) [#/Vol] 0.12 10*3/uL Normal 0.00 - 0.70 [facility] Comment on above: Performed By: #### C BCDF #### [facility] [address] [place] [address] Eosinophils/100 WBC (Bld) 1.0 % Normal 0.0 - 6.0 [facility] Comment on above: Performed By: #### C BCDF #### [facility] [address] [place] [address] Erythrocyte distribution width (RBC) [Ratio] 14.1 % Normal 11.5 - 14.5 [facility] Comment on above: Performed By: #### C BCDF #### [facility] [address] [place] [address] Hematocrit (Bld) [Volume fraction] 37.0 % Low 41.0 - 52.0 [facility] Comment on above: Performed By: #### C BCDF #### [facility] [address] [place] [address] Hemoglobin (Bld) [Mass/Vol] 12.4 g/dL Low 13.5 - 17.5 [facility] Comment on above: Performed By: #### C BCDF #### [facility] [address] [place] [address] Lymphocytes (Bld) [#/Vol] 2.22 10*3/uL Normal 1.20 - 4.80 [facility] Comment on above: Performed By: #### C BCDF #### [facility] [address] [place] [address] Lymphocytes/100 WBC (Bld) 17.9 % Normal 13.0 - 44.0 [facility] Comment on above: Performed By: #### C BCDF #### [facility] [address] [place] [address] MCHC (RBC) [Mass/Vol] 33.5 g/dL Normal 32.0 - 36.0 [facility] Comment on above: Performed By: #### C BCDF #### [facility] [address] [place] [address] MCV (RBC) [Entitic vol] 86 fL Normal 80 - 100 [facility] Comment on above: Performed By: #### C BCDF #### [facility] [address] [place] [address] Monocytes (Bld) [#/Vol] 0.80 10*3/uL Normal 0.10 - 1.00 [facility] Comment on above: Performed By: #### C BCDF #### [facility] [address] [place] [address] Monocytes/100 WBC (Bld) 6.4 % Normal 2.0 - 10.0 [facility] Comment on above: Performed By: #### C BCDF #### [facility] [address] [place] [address] Neutrophils (Bld) [#/Vol] 9.18 10*3/uL High 1.20 - 7.70 [facility] Comment on above: Performed By: #### C BCDF #### [facility] [address] [place] [address] Neutrophils/100 WBC (Bld) 73.8 % Normal 40.0 - 80.0 [facility] Comment on above: Performed By: #### C BCDF #### [facility] [address] [place] [address] Nucleated RBC/100 WBC (Bld) [Ratio] 0.0 /100 WBC Normal 0.0-0.0 [facility] Comment on above: Performed By: #### C BCDF #### [facility] [address] [place] [address] Platelets (Bld) [#/Vol] 268 10*3/uL Normal 150 - 450 [facility] Comment on above: Performed By: #### C BCDF #### [facility] [address] [place] [address] RBC (Bld) [#/Vol] 4.31 x10E12/L Low 4.50 - 5.90 [facility] Comment on above: Performed By: #### C BCDF #### [facility] [address] [place] [address] WBC (Bld) [#/Vol] 12.4 10*3/uL High 4.4 - 11.3 [facility] Comment on above: Performed By: #### C BCDF #### [facility] [address] [place] [address] % AUTOMATED IMMATURE GRAN Canceled [facility] Comment on above: Order Comment: TEST CBC AND DIFFERENTIAL WAS CANCELLED, 12/12/2018 18:52 SPECIMEN CLOTTED.PLEASE RESUBMIT. Result Comment: Perc ent differential counts (%) should be interpreted in the context of the absolute cell counts (cells/L). Performed By: #### C BCDF #### [facility] [address] [place] [address] Basophils (Bld) [#/Vol] Canceled [facility] Comment on above: Order Comment: TEST CBC AND DIFFERENTIAL WAS CANCELLED, 12/12/2018 18:52 SPECIMEN CLOTTED.PLEASE RESUBMIT. Performed By: #### C BCDF #### [facility] [address] [place] [address] Basophils/100 WBC (Bld) Canceled [facility] Comment on above: Order Comment: TEST CBC AND DIFFERENTIAL WAS CANCELLED, 12/12/2018 18:52 SPECIMEN CLOTTED.PLEASE RESUBMIT. Performed By: #### C BCDF #### [facility] [address] [place] [address] DIFFERENTIAL Canceled [facility] Comment on above: Order Comment: TEST CBC AND DIFFERENTIAL WAS CANCELLED, 12/12/2018 18:52 SPECIMEN CLOTTED.PLEASE RESUBMIT. Performed By: #### C BCDF #### [facility] [address] [place] [address] Eosinophils (Bld) [#/Vol] Canceled [facility] Comment on above: Order Comment: TEST CBC AND DIFFERENTIAL WAS CANCELLED, 12/12/2018 18:52 SPECIMEN CLOTTED.PLEASE RESUBMIT. Performed By: #### C BCDF #### [facility] [address] [place] [address] Eosinophils/100 WBC (Bld) Canceled [facility] Comment on above: Order Comment: TEST CBC AND DIFFERENTIAL WAS CANCELLED, 12/12/2018 18:52 SPECIMEN CLOTTED.PLEASE RESUBMIT. Performed By: #### C BCDF #### [facility] [address] [place] [address] Erythrocyte distribution width (RBC) [Ratio] Canceled [facility] Comment on above: Order Comment: TEST CBC AND DIFFERENTIAL WAS CANCELLED, 12/12/2018 18:52 SPECIMEN CLOTTED.PLEASE RESUBMIT. Performed By: #### C BCDF #### [facility] [address] [place] [address] Hematocrit (Bld) [Volume fraction] Canceled [facility] Comment on above: Order Comment: TEST CBC AND DIFFERENTIAL WAS CANCELLED, 12/12/2018 18:52 SPECIMEN CLOTTED.PLEASE RESUBMIT. Performed By: #### C BCDF #### [facility] [address] [place] [address] Hemoglobin (Bld) [Mass/Vol] Canceled [facility] Comment on above: Order Comment: TEST CBC AND DIFFERENTIAL WAS CANCELLED, 12/12/2018 18:52 SPECIMEN CLOTTED.PLEASE RESUBMIT. Performed By: #### C BCDF #### [facility] [address] [place] [address] Lymphocytes (Bld) [#/Vol] Canceled [facility] Comment on above: Order Comment: TEST CBC AND DIFFERENTIAL WAS CANCELLED, 12/12/2018 18:52 SPECIMEN CLOTTED.PLEASE RESUBMIT. Performed By: #### C BCDF #### [facility] [address] [place] [address] MCHC (RBC) [Mass/Vol] Canceled [facility] Comment on above: Order Comment: TEST CBC AND DIFFERENTIAL WAS CANCELLED, 12/12/2018 18:52 SPECIMEN CLOTTED.PLEASE RESUBMIT. Performed By: #### C BCDF #### [facility] [address] [place] [address] MCV (RBC) [Entitic vol] Canceled [facility] Comment on above: Order Comment: TEST CBC AND DIFFERENTIAL WAS CANCELLED, 12/12/2018 18:52 SPECIMEN CLOTTED.PLEASE RESUBMIT. Performed By: #### C BCDF #### [facility] [address] [place] [address] Monocytes (Bld) [#/Vol] Canceled [facility] Comment on above: Order Comment: TEST CBC AND DIFFERENTIAL WAS CANCELLED, 12/12/2018 18:52 SPECIMEN CLOTTED.PLEASE RESUBMIT. Performed By: #### C BCDF #### [facility] [address] [place] [address] Neutrophils (Bld) [#/Vol] Canceled [facility] Comment on above: Order Comment: TEST CBC AND DIFFERENTIAL WAS CANCELLED, 12/12/2018 18:52 SPECIMEN CLOTTED.PLEASE RESUBMIT. Performed By: #### C BCDF #### [facility] [address] [place] [address] Neutrophils/100 WBC (Bld) Canceled [facility] Comment on above: Order Comment: TEST CBC AND DIFFERENTIAL WAS CANCELLED, 12/12/2018 18:52 SPECIMEN CLOTTED.PLEASE RESUBMIT. Performed By: #### C BCDF #### [facility] [address] [place] [address] Nucleated RBC/100 WBC (Bld) [Ratio] Canceled [facility] Comment on above: Order Comment: TEST CBC AND DIFFERENTIAL WAS CANCELLED, 12/12/2018 18:52 SPECIMEN CLOTTED.PLEASE RESUBMIT. Performed By: #### C BCDF #### [facility] [address] [place] [address] Platelets (Bld) [#/Vol] Canceled [facility] Comment on above: Order Comment: TEST CBC AND DIFFERENTIAL WAS CANCELLED, 12/12/2018 18:52 SPECIMEN CLOTTED.PLEASE RESUBMIT. Performed By: #### C BCDF #### [facility] [address] [place] [address] RBC (Bld) [#/Vol] Canceled [facility] Comment on above: Order Comment: TEST CBC AND DIFFERENTIAL WAS CANCELLED, 12/12/2018 18:52 SPECIMEN CLOTTED.PLEASE RESUBMIT. Performed By: #### C BCDF #### [facility] [address] [place] [address] WBC (Bld) [#/Vol] Canceled [facility] Comment on above: Order Comment: TEST CBC AND DIFFERENTIAL WAS CANCELLED, 12/12/2018 18:52 SPECIMEN CLOTTED.PLEASE RESUBMIT. Performed By: #### C BCDF #### [facility] [address] [place] [address] COAGULATION SCREENon 019 aPTT Coag (Bld) [Time] 32 s Normal 28 - 38 [facility] Comment on above: Result Comment: THE APTT IS NO LONGER USED FOR MONITORING UNFRACTIONATED HEPARIN THERAPY. FOR MONITORING HEPARIN THERAPY, USE THE HEPARIN ASSAY. Performed By: #### C OAGS #### [facility] [address] [place] [address] INR Coag (PPP) [Relative time] 1.1 {INR} Normal 0.9 - 1.1 [facility] Comment on above: Performed By: #### C OAGS #### [facility] [address] [place] [address] PT Coag (PPP) [Time] 11.7 s Normal 9.7 - 12.7 [facility] Comment on above: Performed By: #### C OAGS #### [facility] [address] [place] [address] COMPREHENSIVE PANELon 2018 Albumin [Mass/Vol] 4.1 g/dL Normal 3.4 - 5.0 [facility] Comment on above: Performed By: #### C MP #### [facility] [address] [place] [address] ALP [Catalytic activity/Vol] 143 U/L High 33 - 120 [facility] Comment on above: Performed By: #### C MP #### [facility] [address] [place] [address] ALT [Catalytic activity/Vol] 15 U/L Normal 10 - 52 [facility] Comment on above: Result Comment: Susan ents treated with Sulfasalazine may generate falsely decreased results for ALT. Performed By: #### C MP #### [facility] [address] [place] [address] Anion gap [Moles/Vol] 17 mmol/L Normal 10 - 20 [facility] Comment on above: Performed By: #### C MP #### [facility] [address] [place] [address] AST [Catalytic activity/Vol] 15 U/L Normal 9 - 39 [facility] Comment on above: Performed By: #### C MP #### [facility] [address] [place] [address] Bilirubin [Mass/Vol] 0.5 mg/dL Normal 0.0 - 1.2 [facility] Comment on above: Performed By: #### C MP #### [facility] [address] [place] [address] Calcium [Mass/Vol] 9.7 mg/dL Normal 8.6 - 10.6 [facility] Comment on above: Performed By: #### C MP #### [facility] [address] [place] [address] Chloride [Moles/Vol] 100 mmol/L Normal 98 - 107 [facility] Comment on above: Performed By: #### C MP #### [facility] [address] [place] [address] Creatinine [Mass/Vol] 1.03 mg/dL Normal 0.50 - 1.30 [facility] Comment on above: Performed By: #### C MP #### [facility] [address] [place] [address] GFR- AM. >60 Normal >60 [facility] Comment on above: Result Comment: CALC ULATIONS OF ESTIMATED GFR ARE PERFORMED USING THE MDRD STUDY EQUATION FOR THE IDMS-TRACEABLE CREATININE METHODS. CLIN CHEM 2007;53:766-72 Performed By: #### C MP #### [facility] [address] [place] [address] GFR-NON AM. >60 Normal >60 [facility] Comment on above: Performed By: #### C MP #### [facility] [address] [place] [address] Glucose [Mass/Vol] 122 mg/dL High 74 - 99 [facility] Comment on above: Performed By: #### C MP #### [facility] [address] [place] [address] HCO3 (Bld) [Moles/Vol] 23 mmol/L Normal 21 - 32 [facility] Comment on above: Performed By: #### C MP #### [facility] [address] [place] [address] Potassium [Moles/Vol] 4.4 mmol/L Normal 3.5 - 5.3 [facility] Comment on above: Performed By: #### C MP #### [facility] [address] [place] [address] Protein [Mass/Vol] 7.2 g/dL Normal 6.4 - 8.2 [facility] Comment on above: Performed By: #### C MP #### [facility] [address] [place] [address] Sodium [Moles/Vol] 136 mmol/L Normal 136 - 145 [facility] Comment on above: Performed By: #### C MP #### [place] [address] [place] [address] Urea nitrogen [Mass/Vol] 24 mg/dL High 6 - 23 [facility] Comment on above: Performed By: #### C MP #### [facility] [address] [place] [address] L-SPINE WO CONTRASTon 12-12-[address] L-SPINE WO CONTRAST Patient Name: NATALIE GERBER STUDY: CT T-SPINE WO CONTRAST; CT L-SPINE WO CONTRAST; 12/12/2018 8:26 pm; 12/12/2018 8:38 pm INDICATION: severe back pain. can't walk. hx of spinal fusion from OSH. scheduled for repair of fusion in [place]: Yes. COMPARISON: None. ACCESSION NUMBER(S): [id number]; [id number] ORDERING CLINICIAN: JOHNIE AYALA TECHNIQUE: Axial CT images of the thoracic and lumbar spine are obtained. Axial, coronal and sagittal reconstructions are submitted for review. FINDINGS: Alignment: There is subtle dextroscoliosis of thoracic spine, bilateral L4 pars interarticularis defects with no significant no significant anterior spondylolisthesis of L4 on L5, and right hip arthroplasty. Vertebrae/Intervertebral Discs: There is mild-severe multilevel spondylosis most severe at L3-L4, L4-L5, and L5-S1. There is prior L4 laminectomy. The spondylosis can be better evaluated with MRI as clinically indicated. Otherwise: ALIGNMENT: Normal. VERTEBRAE: No acute fracture. PREVERTEBRAL SOFT TISSUES: No prevertebral soft tissue swelling. There is mild posterior subcutaneous stranding. IMPRESSION: 1. Mild-severe multilevel spondylosis which can be better evaluated with MRI as clinically indicated. 2. No evidence of traumatic malalignment or fracture. I personally reviewed the images/study and I agree with the findings as stated. This study was interpreted at [facility] [place], [place], [place]. Electronically signed by: KALIZZIE SANCHEZ MD [facility] NR CT T-SPINE WO CONTRASTon 12-12-[address] T-SPINE WO CONTRAST Patient Name: NATALIE GERBER STUDY: CT T-SPINE WO CONTRAST; CT L-SPINE WO CONTRAST; 12/12/2018 8:26 pm; 12/12/2018 8:38 pm INDICATION: severe back pain. can't walk. hx of spinal fusion from OSH. scheduled for repair of fusion in [place]: Yes. COMPARISON: None. ACCESSION NUMBER(S): [id number]; [id number] ORDERING CLINICIAN: JOHNIE AYALA TECHNIQUE: Axial CT images of the thoracic and lumbar spine are obtained. Axial, coronal and sagittal reconstructions are submitted for review. FINDINGS: Alignment: There is subtle dextroscoliosis of thoracic spine, bilateral L4 pars interarticularis defects with no significant no significant anterior spondylolisthesis of L4 on L5, and right hip arthroplasty. Vertebrae/Intervertebral Discs: There is mild-severe multilevel spondylosis most severe at L3-L4, L4-L5, and L5-S1. There is prior L4 laminectomy. The spondylosis can be better evaluated with MRI as clinically indicated. Otherwise: ALIGNMENT: Normal. VERTEBRAE: No acute fracture. PREVERTEBRAL SOFT TISSUES: No prevertebral soft tissue swelling. There is mild posterior subcutaneous stranding. IMPRESSION: 1. Mild-severe multilevel spondylosis which can be better evaluated with MRI as clinically indicated. 2. No evidence of traumatic malalignment or fracture. I personally reviewed the images/study and I agree with the findings as stated. This study was interpreted at [facility] [place], [place], [place]. Electronically signed by: MARY SANCHEZ MD [facility] Provider Note - ED Care Ni sitionon 12-12-2018 Provider Note - ED Care Transition ED Care Transition: Chart Review: ED NOTES ED NOTES: I received signout on this patient from a previous emergency medicine provider. The patient had CT scans of the T and L spine which did not show any acute changes. However, the patient is unable to ambulate given leg and back pain and would likely benefit from admission for physical therapy and possible placement in rehabilitation. He was accepted to the medicine service. CLINICAL IMPRESSION Diagnosis/Annotation: ED Dx Name:Unable to walk Code:R26.2 Name:Back pain Code:M54.9 Dispostion: hospitalized ATTESTATION Attestation: I saw and evaluated the patient. I personally obtained the rubin and critical portions of the history and physical exam or was physically present for rubin and critical portions performed by the resident/fellow. I reviewed the resident/fellows documentation and discussed the patient with the resident/fellow. I agree with the resident/fellows medical decision making as documented in the residents note Comments/Additional Findings: see my previous note for documentation agree with plan CRITICAL CARE TIME Is this a critically ill patient: no Electronic Signatures: Bobby Almanzar (Resident)) (Signed 12-Dec-2018 21:14) Authored: ED Care Transition Annamaria Terry) (Signed 16-Dec-2018 13:17) Authored: ED Care Transition Co-Signer: ED Care Transition Last Updated: 16-Dec-2018 13:17 by Annamaria Terry) [facility] Provider Note - ED v2on 11-30 Provider Note - ED v2 Provider Note - ED v2: Chart Review: ED NOTES ED NOTES: CC: Back pain/fall HPI: 58 yo man with pmh of CVA, STEMI, PE, CHF, and back pain s/p laminectomy with failed fusion presents today with 1 fall yesterday and 2 falls today 2/2 to pts back pain radiating down LLE with some weakness. Weakness of bilateral lower extremities, left more than right, secondary to his pain but able to ambulate with some difficulty. He denies any head injury, LOC, fever, chills, bowel/bladder incontinence, or saddle anesthesia. He does state that he has some nausea that is worsened with by his pain. He states that this same course of events happened roughly 4 months ago and ended with him admitted to detention for four months with discharge 3 weeks ago. States that he has a planned revision of his laminectomy and fusion on Jan [address] [place] [address] Sergio Marquis. ROS: No fever, chills, headache, CP, SOB, vomiting, diarrhea, Abd pain, dysuria, frequency, bowel/bladder incontinence, focal numbness. PMH: CVA, chronic back pain, STEMI, PE, CHF PSH: laminectomy, left hip arthroplasty, inguinal hernia repair, cholecystectomy Meds: reviewed pts list FH: noncontributory SH: lives at home alone. Denies etoh or recreational drug usage All: toradal, Nubain Vitals: 36.8C, 88HR, 20RR, 147/115 BP, 97% o2 Physical Exam: Gen: Obese man in NAD but uncomfortable appearing HEENT: NCAT with picked scabs on scalp, EOMI, PERRLA, anicteric sclera, MMM Neck: supple, full ROM Cardiac: distant heart sounds but RRR Pulm: distant sounds but sound clear to auscultation in anterior alonso GI: soft, obese, NTND, no guarding rebound Extrem: 2+ radial pulses bilaterally, 1+ peripheral edema pretibially and on bilateral upper forearms. Ecchymosis over left elbow without TTP, abrasions to bilateral knees without TTP Back: Pt unable to lean forward in bed to assess secondary to pain Neuro: alert and oriented x3, cn2-12 grossly intact, 5/5 strength in proximal and distal upper extremities. 5/5 dorsaflexion and plantar flexion in RLE. 4/5 dorsiflexion and plantar flexion in LLE. Proximal lower extrem strength not tested 2/2 to pts inability to tolerate pain. Symmetric and full sensation in extremities bilaterally. Psych: Appropriate mood and affect Assessment: 58 yo man with sig pmhx of back pain requiring surgical laminectomy and fusion which has failed who was recently admitted to detention 2/2 to his inability to care for himself with his back pain. Presenting today with same complaint. No red flags related to fever, focal weakness/numbness in lower extremities, bowel/bladder incontinence, or saddle anesthesia. Will perform imaging to rule out cauda equine or displacement of surgical equipment but unlikely to yield anything not found on previous imaging. Likely to need inpatient management 2/2 to inability to ambulate and care for himself. Will likely need neurosurg/ortho eval for whether surgical treatment is needed but will defer until after ED workup is completed and pt is admitted. Plan: - Coag, CBC, CMP -CT L/T spine w/o con -LR bolus -Dilaudid, Zofran, for pain and nausea -Lasix for pts CHF per his request Labs: Ordered per EMR. Significant values noted in ED COURSE / MDM. Imaging: Ordered per EMR. Radiologys impression reviewed prior to disposition. Patient was signed out to the [facility] ED resident for continued management. Final disposition is pending. Anticipate admission to medicine service for inability to ambulate at this time with surgical consult as needed. Johnie Ayala MD, MPH Emergency Medicine, PGY-3 [facility] Patient case was discussed with the attending physician, who also saw and evaluated the patient. Patient and/or patient access service representative was counseled regarding contents of "ED COURSE / MDM," impression and plan. All questions answered. If the patient was still in the ED as a patient when my ED shift ended the patient was turned over to the [facility] resident or attending physician. Portions of the note may have been dictated by speech recognition. HISTORY OF PRESENTING ILLNESS NATALIE is a 58 year old Male and was seen by me at 12-Dec-2018 16:48 for a chief complaint of (back pain , radiates to left leg, hist sciatica. lengthy pmhx includes mi, cvax2, chf, laminectomy. scheduled for december procedure on spine.)(1). Triage Information: Most recent Vital Sign Value Date Temp (F): 97.8 12-12-2018 16:47 Temp (C): 36.6 12-12-2018 16:47 Heart Rate (beats/min): 88 12-12-2018 16:47 Respirations (breaths/min): 20 12-12-2018 16:47 SpO2 (%): 97 12-12-2018 16:47 BP Systolic (mm Hg): 147 12-12-2018 16:47 BP Diastolic (mm Hg): 115 12-12-2018 16:47 PAST MEDICAL HISTORY ATTESTATION: I have reviewed and confirmed nurse's/medic's notes for patient's medications, allergies, medical history, and surgical history ALLERGIES/INTOLERANCES: Allergy Allergen: Nubain Type: Drug Reaction: Anxiety Hives/Urticaria Allergen: Toradol IV/IM Type: Drug Reaction: Hives/Urticaria Allergen: Fish Type: Food Reaction: Hives/Urticaria HEALTH HISTORY: Medical History Name:Pulmonary embolism Code:I26.99 Name:Anemia Code:D64.9 Name:Diverticulitis Code:K57.92 Name:Coronary artery disease Code:I25.10 Name:Stroke Code:I63.9 Name:Benign essential hypertension Code:I10 Social History Name:Malingering Code:Z76.5 OUTPATIENT MEDICATIONS: Home Medications Review Status for Reconciliation: Not Done Med Status: Patient Currently Takes Medications Drug Name: aspirin 81 mg oral delayed release tablet Instructions: 1 tab(s) orally once a day Drug Name: Lasix 20 mg oral tablet Instructions: 1 tab(s) orally once a day Drug Name: Plavix 75 mg oral tablet Instructions: 1 tab(s) orally once a day Drug Name: nitroglycerin Instructions: 0.4 milligram(s) sublingual every 5 minutes, As Needed Drug Name: Seroquel 100 mg oral tablet Instructions: 1 tab(s) orally once a day (at bedtime) Drug Name: Nexium 40 mg oral delayed release capsule Instructions: 1 cap(s) orally 2 times a day Drug Name: Adderall 20 mg oral tablet Instructions: 1 tab(s) orally 2 times a day Drug Name: Celexa 20 mg oral tablet Instructions: 1 tab(s) orally once a day Drug Name: lisinopril 10 mg oral tablet Instructions: 1 tab(s) orally once a day Drug Name: carvedilol 6.25 mg oral tablet Instructions: 1 tab(s) orally once a day Drug Name: traMADol 50 mg oral tablet Instructions: 2 tab(s) orally every 6 hours, As Needed - Use as Directed 3 times a day (with meals) per Corrective Scale (Mild) - for pain Drug Name: simvastatin 40 mg oral tablet Instructions: 1 tab(s) orally once (at bedtime) Drug Name: levothyroxine 25 mcg (0.025 mg) oral tablet Instructions: 1 tab(s) orally once a day SIGNIFICANT EVENTS: Clinical Events Description:Surgical Procedure Additional Notes:EGD Description:Surgical Procedure Additional Notes:EGD with bx Immunizations Description:flu shot 2015 Description:pneumo vac Other Description:Family spokesperson Additional Notes:NONE PROVIDED Past Medical History Description:Hypertension (HTN) Additional Notes:CHF., Back Surgery., Vascular Necrosis., High chol., Asthma., Depression Description:mi Description:total hip left Description:chf, htn, mi,, bph Description:cellulitis of both lower legs Description:diverticulitis Description:Diastolic CHF Description:Mild CAD, but no h/o [place] Description:TIA Description:diverticulitis Description:CVA w/ TPA Description:TIA Past Surgical History Description:back surgery, left hip surgery, gallbladder Description:hernia surgery Description:Left Knee RESULTS/VITAL SIGNS RESULTS: Recent Lab Results: I have reviewed these laboratory results: Complete Blood Count + Differential 12-Dec-2018 19:51:00 ResultValue White Blood Cell Count 12.4 H Nucleated Erythrocyte Count 0.0 Red Blood Cell Count 4.31 L HGB 12.4 L HCT 37.0 L MCV 86 MCHC 33.5 PLT 268 RDW-CV 14.1 Neutrophil % 73.8 Immature Granulocytes % 0.6 Lymphocyte % 17.9 Monocyte % 6.4 Eosinophil % 1.0 Basophil % 0.3 Neutrophil Count 9.18 H Lymphocyte Count 2.22 Monocyte Count 0.80 Eosinophil Count 0.12 Basophil Count 0.04 Comprehensive Metabolic Panel 12-Dec-2018 18:11:00 ResultValue Glucose, Serum 122 H NA 136 K 4.4 CL 100 Bicarbonate, Serum 23 Anion Gap, Serum 17 BUN 24 H CREAT 1.03 GFR-Non >60 GFR- >60 Calcium, Serum 9.7 ALB 4.1 ALKP 143 H T Pro 7.2 T Bili 0.5 Alanine Aminotransferase, Serum 15 Aspartate Transaminase, Serum 15 Coagulation Screen 12-Dec-2018 18:11:00 ResultValue Prothrombin Time, Plasma 11.7 International Normalized Ratio, Plasma 1.1 Activated Partial Thromboplastin Time 32 Radiology Results: Impression: 1. Mild-severe multilevel spondylosis which can be better evaluated with MRI as clinically indicated. 2. No evidence of traumatic malalignment or fracture. CT L Spine without Contrast [Dec 12 2018 9:32PM] Impression: 1. Mild-severe multilevel spondylosis which can be better evaluated with MRI as clinically indicated. 2. No evidence of traumatic malalignment or fracture. CT T Spine without Contrast [Dec 12 2018 9:32PM] Impression: [Multilevel discogenic degenerative change of the thoracolumbar spine, most significant over the L3-L4 and L4-L5 interspace. No evidence of traumatic malalignment or fracture.] CT L Spine without Contrast [Dec 12 2018 8:55PM] Impression: [Multilevel discogenic degenerative change of the thoracolumbar spine, most significant over the L3-L4 and L4-L5 interspace. No evidence of traumatic malalignment or fracture.] CT T Spine without Contrast [Dec 12 2018 8:55PM] VITAL SIGNS: T PRBP SpO2O2(LPM) %FiO2 Method 13-Dec-2018 06:25:[id number] 92 room air, no respiratory support 12-Dec-2018 23:46:[id number]/75 94 room air, no respiratory support 12-Dec-2018 21:30:[id number]/90 96 room air, no respiratory support 12-Dec-2018 18:24:[id number]/77 96 room air, no respiratory support 12-Dec-2018 16:47:[id number]/115 97 room air, no respiratory support CLINICAL IMPRESSION Diagnosis/Annotation: ED Dx Name:Unable to walk Code:R26.2 Name:Back pain Code:M54.9 Dispostion: HANDOFF Signed Out to Incoming Provider: resident Condition on Disposition: stable ATTESTATION Attestation: I saw and evaluated the patient. I personally obtained the rubin and critical portions of the history and physical exam or was physically present for rubin and critical portions performed by the resident/fellow. I reviewed the resident/fellows documentation and discussed the patient with the resident/fellow. I agree with the resident/fellows medical decision making as documented in the resident/fellows note with the exception/addition of the following Comments/Additional Findings: Patient with a history of spinal fusion has failed increasing symptoms scheduled for surgery in a few weeks I just cant wait that long now having increased falls - fell two times today - notes increased LLE weakness and numbness only able to ambulate short distances denies any head trauma with these falls no bowel or bladder complaints no fevers had a similar presentation several months ago - was admitted to a SNF for about 4 months just discharged about 3 weeks ago "but I cant manage" notes he has revision planned in [place] on Jan [address] Sergio Marquis PMHX: CVA, chronic back pain, CAD, history of PE Meds: not on blood thinners Soc Hx: lives independently currently PE awake alert appears uncomfortable but oriented x 3 PERRl supple nl respiratory effort RRR soft NT obese soft NT LUE with bruising over left elbow abrasions to bilateral knees +edema bilaterally, symmetric see resident neuro documentation Med Decision Making [] check CT of spine to see if any acute fractures/new hardware issues [] check basic labs [] analgesia for pain [] home medication Reassessment #1 [] no acute surgical findings on spine imaging but clearly he is failing at home will admit for case management, spine consult, PT CRITICAL CARE TIME Is this a critically ill patient: no Electronic Signatures: Johnie yAala (Resident)) (Signed 13-Dec-2018 09:40) Authored: Provider Note - ED v2 Annamaria Terry) (Signed 16-Dec-2018 12:47) Authored: Provider Note - ED v2 Co-Signer: Provider Note - ED v2 Last Updated: 16-Dec-2018 12:47 by Annamaria Terry) References: 1. Data Referenced From "Triage - ED" 12/12/2018 04:47 PM [facility] Risk Screen - Adult Emergenc yon 12-12-2018 Risk Screen - Adult Emergency Preferred Language: Preferred Language: Preferred Language for Discussing Health Care (patient/designee)[place] Advanced Directives: Advance Directive Medicalno Advance Directive Information Givenpatient/family declined Family Violence Adult: Abuse Screen: Are you or have you been threatened or abused physically, emotionally, or sexually by anyoneno Learning Assessment (Patient): Learning Assessment (Patient): Patient is Able to be Assessed for Learningyes Factors Influencing Readiness to Learnacuteness of illness Factors that Impact Ability to Learnnone Devices/Methods Used to Communicatenone Learning Preferencesaudio Cultural Considerationsnone Developmental Considerationsnone Jehovah'S Witness Considerationsnone Learning Assessment (Other Learner): Learning Assessment (Other Learner): Other learner availableno Pressure Injury/TB/Substance: Pressure Injury: Pressure Injury Present on Admissionno Do you have a coughno Substance Use Current or Former Historynever: Cigarette/Tobacco, e-Cigarette/Vaping, Alcohol, Street Drugs Admission Risk Screen: Significant IndicatorsComplete CAGE: CAGE: Is this an injured patient at a Trauma Center ([facility]/[place]): no Electronic Signatures: Nereida Atkinson (RN) (Signed 12-Dec-2018 16:55) Authored: Preferred Language, Advanced Directives, Family Violence Adult, Learning Assessment (Patient), Learning Assessment (Other Learner), Pressure Injury/TB/Substance, CAGE Last Updated: 12-Dec-2018 16:55 by Nereida Atkinson (RN) [facility] Triage - EDon 12-12-2018 Triage - ED Quick Triage: The patient and/or guardian verbally acknowledges placement for services into the following (when Urgent Care Service hours are operating):emergency department Risk Screens: Ascencio Fall Scale Scoring Reference [email or web address] Chart Review: CHIEF COMPLAINT NATALIE GERBER is a Male patient with a chief complaint of (back pain , radiates to left leg, hist sciatica. lengthy pmhx includes mi, cvax2, chf, laminectomy. scheduled for december procedure on spine.). Triage Date/Time: 12-Dec-2018 16:47 Pain Rating (0-10): 10 = Severe Pain location: back, left leg Vital Signs: Temperature: 97.8F ( 36.6C) taken temporal Blood Pressure: 147/115 Mean: Heart Rate: 88 Respiratory Rate: 20 Pulse Oximetry: 97% on room air, no respiratory support. Height: 5 feet 5.00 inches. 165.1 CM Weight: 315.0 pounds. Calculated 142.8 kg. Calculated BMI (kg/m2): 52.388 Calculated BSA (m2) 2.56 Cough lasting greater than 3 weeks: no Travel outside of [place]: no Allergies: yes Mask applied: no Patient has homicidal thoughts: no BRI: 3 Risk Screens Suicide Risk Screen In the Past Month: Have you wished you were or wished you could go to sleep and not wake up no In the Past Month: Have you had any actual thoughts of killing yourself no In Your Lifetime: Have you ever done anything, started to do anything, or prepared to do anything to end your life no Ascencio Fall Scale Screening Has the patient fallen before (or is the patient in the ED as a result of a fall) has had a fall Does the patient have an impaired gait has impaired gait Is the patient cognitively impaired not cognitively impaired Ascencio Fall Scale History of falling (immediate or previous) yes (25) Secondary Diagnosis yes (15) Intravenous Therapy/ Heparin/Saline Lock yes (20) Gait/Transferring normal/bedrest/wheelchair (0) Ambulatory Aids crutches/walker/cane (15) Mental Status oriented to own ability (0) Ascencio Fall Risk Score: 75 Interventions: High Risk > 45 interventions: bed in low position with brakes locked and side rails up, bedside table within reach, call light provided to patient, complete hourly rounding on patient for safety, patient oriented to surroundings, falls risk band applied to patient, if able, patient will ambulate with assistance, medications reviewed for potential side effects and care planning, patient/family education completed, patients fall status communicated during handoff, patient accompanied to diagnostic/treatment areas, nonslip footwear placed on patient, mode of toileting discussed with patient and patients environment free of clutter PAIN Pain Scale Used: CHEY Pain Rating (0-10): 10 = Severe Past Medical History: Past Medical History Reviewedyes Left Knee: Past Surgical History, Active hernia surgery: Past Surgical History, Active back surgery, left hip surgery, gallbladder: Past Surgical History, Active TIA: Past Medical History, Active CVA w/ TPA: Past Medical History, Active diverticulitis: Past Medical History, Active TIA: Past Medical History, Active Mild CAD, but no h/o [place]: Past Medical History, Active Diastolic CHF: Past Medical History, Active diverticulitis: Past Medical History, Active cellulitis of both lower legs: Past Medical History, Active chf, htn, mi,, bph: Past Medical History, Active total hip left: Past Medical History, Active mi: Past Medical History, Active Hypertension (HTN): Past Medical History, CHF., Back Surgery., Vascular Necrosis., High chol., Asthma., Depression, Active Family spokesperson: Other, NONE PROVIDED, Active pneumo vac: Immunizations, Active flu shot 2016: Immunizations, Active Electronic Signatures: Nereida Atkinson (GABO) (Signed 12-Dec-2018 16:52) Authored: Triage, Past Medical History Last Updated: 12-Dec-2018 16:52 by Nereida Atkinson) [facility] Provider Note - ED v2on 11-30 Provider Note - ED v2 Provider Note - ED v2: Chart Review: ED NOTES ED NOTES: This patient presents emergency department today with chief complaint of back pain. Patient states he has chronic back pain. He states he had an L34 and 5 fusion. He is currently scheduled for a redo of his back surgery as it has failed. This is scheduled in early December at [facility]. He states the pain tonight is going down his left leg and he is unable to bear weight. His home medication is tramadol. He is just asking for does some medicine here. The patient denies any incontinence. He denies any saddle numbness. HISTORY OF PRESENTING ILLNESS NATALIE is a 58 year old Male and was seen by me at 11-Dec-2018 21:12 for a chief complaint of back pain . Other complaints include: Pt has c/o low back pain, recurrent, which became worse @ 1999. Pt is scheduled for surgery soon, but was unable to take the pain. Pt states the pain radiates down his back into his left leg. Rates pain 10/10. VSS.(1). The historian is the patient. Triage Information: Most recent Vital Sign Value Date Temp (F): 97.7 12-11-2018 20:55 Temp (C): 36.5 12-11-2018 20:55 Heart Rate (beats/min): 108 12-11-2018 20:55 Respirations (breaths/min): 20 12-11-2018 20:55 SpO2 (%): 99 12-11-2018 20:55 BP Systolic (mm Hg): 172 12-11-2018 20:55 BP Diastolic (mm Hg): 87 12-11-2018 20:55 PAST MEDICAL HISTORY ATTESTATION: I have reviewed and confirmed nurse's/medic's notes for patient's medications, allergies, medical history, and surgical history PSYCHOSOCIAL SCREENING: NO: concerns for safety at home, feelings of depression, feels like hurting others and feels like hurting self CURRENT OR FORMER SUBSTANCE USE: NO: Cigarette/Tobacco, e-Cigarette/Vaping, Alcohol and Street Drugs ALLERGIES/INTOLERANCES: Allergy Allergen: Nubain Type: Drug Reaction: Anxiety Hives/Urticaria Allergen: Toradol IV/IM Type: Drug Reaction: Hives/Urticaria Allergen: Fish Type: Food Reaction: Hives/Urticaria HEALTH HISTORY: Medical History Name:Pulmonary embolism Code:I26.99 Name:Anemia Code:D64.9 Name:Diverticulitis Code:K57.92 Name:Coronary artery disease Code:I25.10 Name:Stroke Code:I63.9 Name:Benign essential hypertension Code:I10 Social History Name:Malingering Code:Z76.5 OUTPATIENT MEDICATIONS: Home Medications Review Status for Reconciliation: Complete Med Status: Patient Currently Takes Medications Drug Name: aspirin 81 mg oral delayed release tablet Instructions: 1 tab(s) orally once a day Drug Name: Lasix 20 mg oral tablet Instructions: 1 tab(s) orally once a day Drug Name: Plavix 75 mg oral tablet Instructions: 1 tab(s) orally once a day Drug Name: nitroglycerin Instructions: 0.4 milligram(s) sublingual every 5 minutes, As Needed Drug Name: Seroquel 100 mg oral tablet Instructions: 1 tab(s) orally once a day (at bedtime) Drug Name: fentaNYL 75 mcg/hr transdermal film, extended release Instructions: 1 patch transdermal every 72 hours Drug Name: Nexium 40 mg oral delayed release capsule Instructions: 1 cap(s) orally 2 times a day Drug Name: Adderall 20 mg oral tablet Instructions: 1 tab(s) orally 2 times a day Drug Name: Celexa 20 mg oral tablet Instructions: 1 tab(s) orally once a day Drug Name: lisinopril 10 mg oral tablet Instructions: 1 tab(s) orally once a day Drug Name: carvedilol 6.25 mg oral tablet Instructions: 1 tab(s) orally once a day Drug Name: traMADol 50 mg oral tablet Instructions: 2 tab(s) orally every 6 hours, As Needed - Use as Directed 3 times a day (with meals) per Corrective Scale (Mild) - for pain Drug Name: simvastatin 40 mg oral tablet Instructions: 1 tab(s) orally once (at bedtime) Drug Name: levothyroxine 25 mcg (0.025 mg) oral tablet Instructions: 1 tab(s) orally once a day Drug Name: Medrol Dosepak 4 mg oral tablet Instructions: As per dosepak directions Drug Name: tiZANidine 4 mg oral tablet Instructions: 1 tab(s) orally every 6 hours, As Needed muscle pain/spasm SIGNIFICANT EVENTS: Clinical Events Description:Surgical Procedure Additional Notes:EGD Description:Surgical Procedure Additional Notes:EGD with bx Immunizations Description:flu shot 2015 Description:pneumo vac Other Description:Family spokesperson Additional Notes:NONE PROVIDED Past Medical History Description:Hypertension (HTN) Additional Notes:CHF., Back Surgery., Vascular Necrosis., High chol., Asthma., Depression Description:mi Description:total hip left Description:chf, htn, mi,, bph Description:cellulitis of both lower legs Description:diverticulitis Description:Diastolic CHF Description:Mild CAD, but no h/o [place] Description:TIA Description:diverticulitis Description:CVA w/ TPA Description:TIA Past Surgical History Description:back surgery, left hip surgery, gallbladder Description:hernia surgery Description:Left Knee REVIEW OF SYSTEMS MUSCULOSKELETAL: POSITIVE for: back pain All other systems reviewed and are negative PHYSICAL EXAM CONSTITUTIONAL: Well appearing, well nourished, awake, alert, oriented to person, place, time/situation and in no apparent distress. CARDIOVASCULAR: Normal rate, regular rhythm. Heart sounds S1, S2. No murmurs, rubs or gallops. PMI non-displaced. RESPIRATORY: Breath sounds clear and equal bilaterally. MUSCULOSKELETAL: Pt has tenderness on palpation over lower lumbar paraspinous L>R. Pt was able to ambulate independently. NEUROLOGICAL: Alert and oriented, no focal deficits, no motor or sensory deficits. RESULTS/VITAL SIGNS VITAL SIGNS: T PRBP SpO2O2(LPM) %FiO2 Method 11-Dec-2018 21:51:[id number] 97 room air, no respiratory support 11-Dec-2018 20:55:[id number]/87 99 room air, no respiratory support 11-Dec-2018 20:49:[id number]/87 99 room air, no respiratory support MEDICAL DECISION MAKING/ED COURSE MDM/ED COURSE: This patient was interviewed and examined. The patient's OARRS report was reviewed. I discussed with the patient the plan of care for here in the emergency department, as well as home-going. I discussed the discharge plan. The patient's return to the emergency department for further problems or concerns. CLINICAL IMPRESSION Diagnosis/Annotation: ED Dx Name:Left lumbar radiculopathy Code:M54.16 Name:Acute exacerbation of chronic low back pain Code:M54.5 Dispostion: discharged Type: home Condition on Disposition: stable ATTESTATION Attestation: Supervising physician on site, available for consultation, non-participatory in the evaluation of the care of this patient. CRITICAL CARE TIME Is this a critically ill patient: no Electronic Signatures: Dulce Mead () (Signed 12-Dec-2018 04:39) Co-Signer: Provider Note - ED v2 Shara Mayen (PAC) (Signed 12-Dec-2018 02:32) Authored: Provider Note - ED v2 Last Updated: 12-Dec-2018 04:39 by Dulce Mead () [facility] Risk Screen - Adult Emergenc yon 12-11-2018 Risk Screen - Adult Emergency Preferred Language: Preferred Language: Preferred Language for Discussing Health Care (patient/designee)[place] Advanced Directives: Advance Directive Medicalno Advance Directive Information Givenpatient/family declined Family Violence Adult: Abuse Screen: Are you or have you been threatened or abused physically, emotionally, or sexually by anyoneno Learning Assessment (Patient): Learning Assessment (Patient): Patient is Able to be Assessed for Learningyes Factors Influencing Readiness to Learnacuteness of illness Factors that Impact Ability to Learnnone Devices/Methods Used to Communicatenone Learning Preferencesindividual instruction Cultural Considerationsnone Developmental Considerationsnone Jehovah'S Witness Considerationsnone Learning Assessment (Other Learner): Learning Assessment (Other Learner): Other learner availableno Pressure Injury/TB/Substance: Pressure Injury: Pressure Injury Present on Admissionno Do you have a coughno Substance Use Current or Former Historynever: Cigarette/Tobacco, e-Cigarette/Vaping, Alcohol, Street Drugs Admission Risk Screen: Significant IndicatorsComplete CAGE: CAGE: Is this an injured patient at a Trauma Center ([facility] [facility]/[place]): no Electronic Signatures: Reza Nicole (RN) (Signed 11-Dec-2018 21:10) Authored: Preferred Language, Advanced Directives, Family Violence Adult, Learning Assessment (Patient), Learning Assessment (Other Learner), Pressure Injury/TB/Substance, CAGE Last Updated: 11-Dec-2018 21:10 by Reza Nicole (GABO) Normal [facility] Triage - EDon 12-11-2018 Triage - ED Quick Triage: The patient and/or guardian verbally acknowledges placement for services into the following (when Urgent Care Service hours are operating):emergency department Chart Review: CHIEF COMPLAINT NATALIE GERBER is a Male patient with a chief complaint of back pain. Onset of the Complaint: 11-Dec-2018 20:00 Other Complaints: Pt has c/o low back pain, recurrent, which became worse @ 1999. Pt is scheduled for surgery soon, but was unable to take the pain. Pt states the pain radiates down his back into his left leg. Rates pain 10/10. VSS. Triage Date/Time: 11-Dec-2018 20:49 Pain Rating (0-10): 10 = Severe Acceptable Pain Level (0-10): 0 Pain location: low back Vital Signs: Temperature: 97.7F ( 36.5C) taken temporal Blood Pressure: 172/87 Mean: Heart Rate: 108 Respiratory Rate: 20 Pulse Oximetry: 99% on room air, no respiratory support. Height: 5 feet 5.00 inches. 165.1 CM Weight: 315.0 pounds. Calculated 142.8 kg. (stated) Calculated BMI (kg/m2): 52.388 Calculated BSA (m2) 2.56 Cough lasting greater than 3 weeks: no Patient immunocompromised related to: N/A Travel outside of [place]: no Allergies: yes Patient has homicidal thoughts: no BRI: 3 Symptom Notes: . Symptoms Are POSITIVE For: difficulty bending, difficulty walking, numbness and tingling. Symptoms Are Negative For: bruising, flank pain, headache, hematuria, muscle cramps and neck pain. Mechanism Of Pain/Injury: no known injury Risk Screens Suicide Risk Screen In the Past Month: Have you wished you were or wished you could go to sleep and not wake up no In the Past Month: Have you had any actual thoughts of killing yourself no In Your Lifetime: Have you ever done anything, started to do anything, or prepared to do anything to end your life no Ascencio Fall Scale Screening Has the patient fallen before (or is the patient in the ED as a result of a fall) has not had a fall Does the patient have an impaired gait has impaired gait Is the patient cognitively impaired not cognitively impaired Ascencio Fall Scale History of falling (immediate or previous) no (0) Secondary Diagnosis no (0) Intravenous Therapy/ Heparin/Saline Lock no (0 Gait/Transferring impaired (20) Ambulatory Aids crutches/walker/cane (15) Mental Status oriented to own ability (0) Ascencio Fall Risk Score: 35 Interventions: Moderate Risk 25 - 44 interventions: bed in low position with brakes locked and side rails up, bedside table within reach, call light provided to patient, complete hourly rounding on patient for safety, falls risk band applied to patient, medications reviewed for potential side effects and care planning, mode of toileting discussed with patient, nonslip footwear placed on patient, patient accompanied to diagnostic/treatment areas, patients environment free of clutter, patients fall status communicated during handoff, patient/family education completed and patient oriented to surroundings PAIN Pain Scale Used: CHEY Pain Assessment: lower, back, yes (down left leg) and sharp Pain Rating (0-10): 10 = Severe Acceptable Pain Level (0-10): 0 ARRIVAL INFORMATION Means of Arrival: stretcher Mode of Arrival: ambulance Unit: 5 Agency: [facility] ([facility]) Arrival From: home Accompanied By: self and property insurance agent Language: Spoken Language Preferred: [place] Islander Reading Language Preferred: [place] Oncology Coordinator Requested: no cream dipper was requested MDRO: History of MDRO: no Present on Arrival: Device Present on Arrival to ED: no Pressure Ulcer Present on Arrival to ED: no TREATMENT PRIOR TO ARRIVAL Treatment Prior to Arrival: Prior to arrival in the Emergency Department NATALIE GERBER had treatment conducted by EMS which included the following; see ambulance record. PRIMARY ASSESSMENT ABCD Normal Findings: airway open and patent, breathing normal, circulation normal and alert and oriented PAST MEDICAL HISTORY Immunization History: Last Known Tetanus Immunization: Unknown (flu+/pneumonia+) TRAVEL HISTORY Travel Exposure History: NO travel to International locations in the past 30 days Past Medical History: Past Medical History Reviewedyes Electronic Signatures: Reza Nicole) (Signed 11-Dec-2018 21:07) Authored: Triage, Past Medical History Last Updated: 11-Dec-2018 21:07 by Reza Nicole (RN) Normal [facility] Utilization Review Noteon Utilization Review Note OBS LOC 11/30. CARDIOLOGY PLANNING CARD CATH. PENDING CARD CATH RESULTS. PER LELA/HARVEY, CLEARED BY CARDIOLOGY. SHE ANTICIPATES NITRO GTT BE D/C'D, AND PT DISCHARGE TONIGHT. EMAIL TO ED CM TO F/U. Noted that staff nurse wrote change to INPT LOC. ED CM not involved in this decision. INPT LOC VALID Unable to notifiy thru the [employer] portal, faxed [employer] FAX: DENIED INPT ADMIT OF 12/01/18 ID# [id number]... P2P AVAIL PH# [phone] # [id number] [employer] FAX; APPRVED 1 INPT DAY POST P2P DENIAL OVERTURNED, D/C DATE NOTED AUTH# [id number] Normal [facility] Nursing Clinical Noteon Nursing Clinical Note Dr Mcelroy in to see patient, orders obtained for discharge and one dose of dilaudid. Intact IV removed after medications given. Patient unable to obtain ride. Call placed to [facility] provide a ride, closed for holiday. Lyft initiated with supervisor typesetting approval. Normal [facility] Nursing Clinical Note PT RETURNED FORM Kaleigh WHITLEY. PT UNABLE TO HAVE MRI DONE SECONDARY TO HIS SIZE. RIGHT GROIN CATH SITE HEIDI D/I NO HEMATOMA OR BLEEDING. Normal [facility] Progress Note-Physicianon Progress Note-Physician Patient: NATALIE GERBER Age: 58 years Sex: Male : 1960 Associated Diagnoses: None Author: YVROSE LUCERO, NEREIDA [facility] IMPRESSION: 1. Chest pain 2. CAD 3. Hx of CVA s/p tpa 4. Hypertension 5. Hx of PE 6. Obesity, morbid PLAN: 1. Reviewed cath results with patient; no significant blockage; no more chest pain 2. He continues to have left shoulder and neck discomfort; probably musculoskeletal or from cervical spine 3. Increase carvedilol and lisinopril for hypertension 4. OK to discharge from CV standpoint INTERVAL HISTORY: up in bed; still c/o neck and shoulder discomfort MEDS: reviewed from Provider Home Page PHYSICAL EXAM: Vital Signs (last 24 hrs) Last Charted Temp Oral 36.5 degC (DEC 02 04:00) Heart Rate Peripheral 97 bpm (DEC 01 15:00) Resp Rate 20 br/min (DEC 02:00) SBP H 149mmHg (DEC 02 06:00) DBP 82 mmHg (DEC 02:00) General: Stable, with no apparent distress. Neck: JVP 7cm @ 45deg. No carotid bruits. CV: RRR no MRG; Normal S1S2; non-sustained, non-displaced PMI. Lungs: CTAx2. Abdomen: Benign. Extremities: No clubbing, cyanosis, or edema. Intact peripheral pulses. I/O's and DAILY WEIGHTS Default ECG/Telemetry: NSR with nonspecific ST changes No qualifying data available. Electronically Co-Signed by: NEREIDA FRANCES MD on 12/02/2018 07:36 EDT Normal [facility] Provider Note - ED v2on 07-0 Provider Note - ED v2 Provider Note - ED v2: Chart Review: ED NOTES ED NOTES: CC: Back pain HPI: 58 year old male with history of chronic back pain presents to the ED with complaints of a flare of his usual back pain this evening. He states that he has a surgery scheduled for early December but he notes having pain that was not relieved as usual by his Tramadol prescription. Patient denies any new injury or exacerbation of his back; He also denies any numbness, tingling, abdominal pain, chest pain, or shortness of breath, however he reports that he has not had a bowel movement within the past 2 days. PMH/ PSH/ SocialHx/ FamHx reviewed in summary screen on EMR ROS: negative except as noted in HPI PHYSICAL EXAM Appearance: Alert and oriented, cooperative, in no acute distress. Obese, appears to be in mild discomfort Eyes: EOMs intact, pupils equal, conjunctiva pink with no redness or exudate. ENT: Mucus membranes moist. Pharynx clear. Uvula midline. Neck: Supple, without meningismus. No lymphadenopathy. Pulmonary: Clear bilaterally. No accessory muscle use or stridor. No respiratory distress. Symmetric chest rise. Cardiac: Regular rate and rhythm, no murmurs noted Abdomen: Soft, nontender. No rebound or guarding. No peritoneal signs. Musculoskeletal: nontender, full ROM, 2+ pulses, no edema noted Neurological: moves all 4 extremities spontaneously, no sensory deficits, CN grossly intact Skin: No rash. No diaphoresis. Psychiatric: Appropriate mood and affect. ED Course: The patient was seen and evaluated for complaints of exacerbation of his chronic lower back pain. He denies any new injury or symptoms. The patient was administered 1mg IV Dilaudid; patient reports relief of his symptoms. 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 The patient is well appearing on discharge, expresses understanding and is agreeable with plan for disposition. HISTORY OF PRESENTING ILLNESS NATALIE is a 58 year old Male and was seen by me at 02-Dec-2018 19:10 for a chief complaint of back pain (pt with chronic back problems scheduled for back surgery in December but today c/o intermittent left arm tingling and lower left back pain radiating down left leg)(1). Triage Information: Most recent Vital Sign Value Date Temp (F): 97.3 12-02-2018 18:09 Temp (C): 36.3 12-02-2018 18:09 Heart Rate (beats/min): 88 12-02-2018 18:09 Respirations (breaths/min): 20 12-02-2018 18:09 SpO2 (%): 98 12-02-2018 18:09 BP Systolic (mm Hg): 135 12-02-2018 18:09 BP Diastolic (mm Hg): 93 12-02-2018 18:09 PAST MEDICAL HISTORY ATTESTATION: I have reviewed and confirmed nurse's/medic's notes for patient's medications, allergies, medical history, and surgical history ALLERGIES/INTOLERANCES: Allergy Allergen: Nubain Type: Drug Reaction: Anxiety Hives/Urticaria Allergen: Toradol IV/IM Type: Drug Reaction: Hives/Urticaria Allergen: Fish Type: Food Reaction: Hives/Urticaria HEALTH HISTORY: Medical History Name:Pulmonary embolism Code:I26.99 Name:Anemia Code:D64.9 Name:Diverticulitis Code:K57.92 Name:Coronary artery disease Code:I25.10 Name:Stroke Code:I63.9 Name:Benign essential hypertension Code:I10 Social History Name:Malingering Code:Z76.5 OUTPATIENT MEDICATIONS: Home Medications Review Status for Reconciliation: N/A Med Status: Patient Currently Takes Medications Drug Name: aspirin 81 mg oral delayed release tablet Instructions: 1 tab(s) orally once a day Drug Name: Lasix 20 mg oral tablet Instructions: 1 tab(s) orally once a day Drug Name: Plavix 75 mg oral tablet Instructions: 1 tab(s) orally once a day Drug Name: nitroglycerin Instructions: 0.4 milligram(s) sublingual every 5 minutes, As Needed Drug Name: Seroquel 100 mg oral tablet Instructions: 1 tab(s) orally once a day (at bedtime) Drug Name: fentaNYL 75 mcg/hr transdermal film, extended release Instructions: 1 patch transdermal every 72 hours Drug Name: Nexium 40 mg oral delayed release capsule Instructions: 1 cap(s) orally 2 times a day Drug Name: Adderall 20 mg oral tablet Instructions: 1 tab(s) orally 2 times a day Drug Name: Celexa 20 mg oral tablet Instructions: 1 tab(s) orally once a day Drug Name: lisinopril 10 mg oral tablet Instructions: 1 tab(s) orally once a day Drug Name: carvedilol 6.25 mg oral tablet Instructions: 1 tab(s) orally once a day Drug Name: traMADol 50 mg oral tablet Instructions: 2 tab(s) orally every 6 hours, As Needed - Use as Directed 3 times a day (with meals) per Corrective Scale (Mild) - for pain Drug Name: simvastatin 40 mg oral tablet Instructions: 1 tab(s) orally once (at bedtime) Drug Name: levothyroxine 25 mcg (0.025 mg) oral tablet Instructions: 1 tab(s) orally once a day SIGNIFICANT EVENTS: Clinical Events Description:Surgical Procedure Additional Notes:EGD Description:Surgical Procedure Additional Notes:EGD with bx Immunizations Description:flu shot 2016 Description:pneumo vac Other Description:Family spokesperson Additional Notes:NONE PROVIDED Past Medical History Description:Hypertension (HTN) Additional Notes:CHF., Back Surgery., Vascular Necrosis., High chol., Asthma., Depression Description:mi Description:total hip left Description:chf, htn, mi,, bph Description:cellulitis of both lower legs Description:diverticulitis Description:Diastolic CHF Description:Mild CAD, but no h/o WI Description:TIA Description:diverticulitis Description:CVA w/ TPA Description:TIA Past Surgical History Description:back surgery, left hip surgery, gallbladder Description:hernia surgery Description:Left Knee RESULTS/VITAL SIGNS VITAL SIGNS: T PRBP SpO2O2(LPM) %FiO2 Method 02-Dec-2018 18:09:[id number]/93 98 room air, no respiratory support CLINICAL IMPRESSION Diagnosis/Annotation: ED Dx Name:Chronic back pain Code:M54.9 Dispostion: discharged Type: home Condition on Disposition: improved ATTESTATION Scribe Name: Junior Vera Scribing on Behalf of: Alberto Mendoza MD ATTENDING SCRIBE ATTESTATION STATEMENT I, Alberto Mendoza MD, attests all medical record entries made by the scribe were under my direction and personally dictated by me. I have reviewed the chart and agree that the record accurately reflects my performance of the history, physical, and assessment plan. I have also personally directed, reviewed, and agree with disposition instructions. Comments/Additional Findings: Scribed by Junior Vera This note is prepared by the scribe acting as Scribe for Alberto Mendoza All medical record entries made by the Scribe were at my direction and personally dictated by me. I have reviewed the chart and agree that the record accurately reflects my personal performance of the history, physical exam, assessment, plan, and diagnosis. I have also personally directed, reviewed, and agree with the discharge instructions. Alberto Mendoza CRITICAL CARE TIME Is this a critically ill patient: no Electronic Signatures: Rah Vera (Scribe) (Entered 02-Dec-2018 19:59) Entered: Provider Note - ED v2 Alberto Mendoza) (Signed 03-Dec-2018 03:39) Authored: Provider Note - ED v2 Last Updated: 03-Dec-2018 03:39 by Alberto Mendoza) References: 1. Data Referenced From "Triage - ED" 12/02/2018 06:09 PM Normal [facility] Risk Screen - Adult Emergenc yon 12-02-2018 Risk Screen - Adult Emergency Preferred Language: Preferred Language: Preferred Language for Discussing Health Care (patient/designee)[place]er Advanced Directives: Advance Directive Medicalno Family Violence Adult: Abuse Screen: Are you or have you been threatened or abused physically, emotionally, or sexually by anyoneno Learning Assessment (Patient): Learning Assessment (Patient): Patient is Able to be Assessed for Learningyes Factors Influencing Readiness to Learnacuteness of illness Factors that Impact Ability to Learnvisual problems Devices/Methods Used to Communicateglasses Learning Preferencesverbal instruction; written material Cultural Considerationsnone Developmental Considerationsnone Jehovah'S Witness Considerationsnone Learning Assessment (Other Learner): Learning Assessment (Other Learner): Other learner availableno Pressure Injury/TB/Substance: Pressure Injury: Pressure Injury Present on Admissionno Do you have a coughno Substance Use Current or Former Historynever: Cigarette/Tobacco, e-Cigarette/Vaping, Alcohol, Street Drugs Admission Risk Screen: Significant IndicatorsComplete CAGE: CAGE: Is this an injured patient at a Trauma Center ([facility]/[place]): no Electronic Signatures: Savanna Cameron (GABO) (Signed 02-Dec-2018 20:52) Authored: Preferred Language, Advanced Directives, Family Violence Adult, Learning Assessment (Patient), Learning Assessment (Other Learner), Pressure Injury/TB/Substance, CAGE Last Updated: 02-Dec-2018 20:52 by Savanna Cameron (GABO) Normal [facility] Triage - EDon 12-02-2018 Triage - ED Chart Review: CHIEF COMPLAINT NATALIE GERBER is a Male patient with a chief complaint of back pain (pt with chronic back problems scheduled for back surgery in December but today c/o intermittent left arm tingling and lower left back pain radiating down left leg). Triage Date/Time: 02-Dec-2018 18:09 Pain Rating (0-10): 10 = Severe Vital Signs: Temperature: 97.3F ( 36.3C) taken forehead Blood Pressure: 135/ Mean: Heart Rate: 88 Respiratory Rate: 20 Pulse Oximetry: 98% on room air, no respiratory support. Weight: 318.0 pounds. Calculated 144.2 kg. (stated) Cough lasting greater than 3 weeks: no Travel outside of [facility]: no Allergies: yes Mask applied: no Patient has homicidal thoughts: no BRI: 3 Symptom Notes: . Symptoms Are POSITIVE For: difficulty bending, difficulty walking, numbness and tingling. Symptoms Are Negative For: bruising, flank pain, headache, hematuria, muscle cramps and neck pain. Mechanism Of Pain/Injury: no known injury Risk Screens Suicide Risk Screen In the Past Month: Have you wished you were or wished you could go to sleep and not wake up no In the Past Month: Have you had any actual thoughts of killing yourself no In Your Lifetime: Have you ever done anything, started to do anything, or prepared to do anything to end your life no Ascencio Fall Scale Screening Has the patient fallen before (or is the patient in the ED as a result of a fall) has not had a fall Does the patient have an impaired gait has impaired gait Is the patient cognitively impaired not cognitively impaired Ascencio Fall Scale History of falling (immediate or previous) no (0) Secondary Diagnosis no (0) Intravenous Therapy/ Heparin/Saline Lock no (0 Gait/Transferring normal/bedrest/wheelchair (0) Ambulatory Aids none/bedrest/nurse assist (0) Mental Status oriented to own ability (0) Ascencio Fall Risk Score: 0 Interventions: Low Risk 0 - 24 interventions: bed in low position with brakes locked and side rails up PAIN Pain Scale Used: CHEY Pain Rating (0-10): 10 = Severe Past Medical History: Past Medical History Reviewedyes Electronic Signatures: Mary Molina (GABO) (Signed 02-Dec-2018 18:14) Authored: Triage, Past Medical History Last Updated: 02-Dec-2018 18:14 by Mary Molina (GABO) Normal [facility] AUTO DIFFon 12-01-2018 Basophils (Bld) [#/Vol] 0.05 x1000 Normal 0.00-0.20 [facility] Comment on above: Performed By: #### 1 [id number], [id number], [id number] ####[facility] [address] [place] [address] Medical Director: Duran Marcus MD Basos % 0.6 % Normal [facility] Comment on above: Performed By: #### 1 32474, [id number], [id number] ####[facility] [address] [place] [address] Medical Director: Duran Marcus MD Eos Count 0.11 x1000 Normal 0.00-0.50 [facility] Comment on above: Performed By: #### 1 74265, [id number], [id number] ####[facility] [address] [place] [address] Medical Director: Duran Marcus MD Eosinophils/100 WBC (Bld) 1.3 % Normal [facility] Comment on above: Performed By: #### 1 83036, [id number], [id number] ####[facility] [address] [place] [address] Medical Director: Duran Marcus MD Lymphocytes (Bld) [#/Vol] 2.43 x1000 Normal 1.20-4.80 [facility] Comment on above: Performed By: #### 1 96608, 159720, [id number] ####[facility] [address] [place] [address] Medical Director: Duran Marcus MD Lymphocytes/100 WBC (Bld) 27.2 % Normal [facility] Comment on above: Performed By: #### 1 26181, 615720, [id number] ####[facility] [address] [place] [address] Medical Director: Duran Marcus MD Lamb Count 0.47 x1000 Normal 0.10-1.00 [facility] Comment on above: Performed By: #### 1 49146, 827585, [id number] ####[facility] [address] [place] [address] Medical Director: Duran Marcus MD Monocytes/100 WBC (Bld) 5.2 % Normal [facility] Comment on above: Performed By: #### 1 51416, 412247, [id number] ####[facility] [address] [place] [address] Medical Director: Duran Marcus MD Neutrophils (Bld) [#/Vol] 5.88 x1000 Normal 1.40-8.80 [facility] Comment on above: Performed By: #### 1 71182, 047624, [id number] ####[facility] [address] [place] [address] Medical Director: Duran Marcus MD Neutrophils/100 WBC (Bld) 65.7 % Normal [facility] Comment on above: Performed By: #### 1 40691, 261889, [id number] ####[facility] [address] [place] [address] Medical Director: Duran Marcus MD BASICMETn 12-01-2018 GFR AA >60 Normal [facility] Comment on above: Result Comment: Afri can [place]ib[place]ian GFR Calc Medical judgement is necessary to interpret GFR. The calculated GFR may not accurately reflect renal status in patients >70 years, women, acutely ill hospitalized patients and patients with acute renal failure or known renal disease. The MDRD GFR formula is valid only for adults greater than 18 years of age. Note: Creatinine clearance (not GFR) should be used for drug dosing. Performed By: #### 1 69964, [id number], [id number] ####[facility] [address] [place], [place] [id number]) [phone] Director: Duran Marcus MD GFR/1.73 sq M predicted among non-blacks MDRD (S/P/Bld) [Vol rate/Area] mL/min/{1.73_m2} Normal [facility] Comment on above: Result Comment: Non GFR Calc Medical judgement is necessary to interpret GFR. The calculated GFR may not accurately reflect renal status in patients >70 years, women, acutely ill hospitalized patients and patients with acute renal failure or known renal disease. The MDRD GFR formula is valid only for adults greater than 18 years of age. Note: Creatinine clearance (not GFR) should be used for drug dosing. Performed By: #### 1 82724, 096189, [id number] ####[facility] [address] [place] [address] Medical Director: Duran Marcus MD Osmolality [Osmolality] 274 mOsm/kg Low 275-295 [facility] Comment on above: Performed By: #### 1 , [id number], [id number] ####[facility] [address] [place] [address] Medical Director: Duran Marcus MD Urea nitrogen/Creatinine [Mass ratio] 12.9 mg/mg Normal [facility] Comment on above: Performed By: #### 1 , 000896, [id number] ####[facility] [address] [place] [id number] Medical Director: Duran Marcus MD Calcium [Mass/Vol] 8.5 mg/dL Normal 8.5-10.5 [facility] Comment on above: Performed By: #### 1 64930, 404916, [id number] ####[facility] [address] [place] [address] Medical Director: Duran Marcus MD Chloride [Moles/Vol] 104 mmol/L Normal 100-109 [facility] Comment on above: Performed By: #### 1 03060, 756571, [id number] ####[facility] [address] [place] [address] Medical Director: Duran Marcus MD CO2, venous 29.0 mmol/L Normal 21.0-32.0 [facility] Comment on above: Performed By: #### 1 42530, 775551, [id number] ####[facility] [address] [place] [address] Medical Director: Duran Marcus MD Creatinine [Mass/Vol] 0.9 mg/dL Normal 0.7-1.3 [facility] Comment on above: Performed By: #### 1 28945, [id number], [id number] ####[facility] [address] [place] [address] Medical Director: Duran Marcus MD Glucose [Mass/Vol] 108 mg/dL High 72-100 [facility] Comment on above: Result Comment: Stacie puncture should occur prior to sulfasalazine administration due to the potential for falsely depressed results. Venipuncture should occur prior to sulfapyridine administration due to the potential falsely elevated results. Baseline assay values before administration of sulfasalazine and sulfapyridine therapy would not be affected. Performed By: #### 1 93744, 894100, [id number] ####[facility] [address] [place], [place] [id number]) [phone] Director: Duran Marcus MD Potassium [Moles/Vol] 3.7 mmol/L Normal 3.5-5.1 [facility] Comment on above: Performed By: #### 1 45006, [id number], [id number] ####[facility] [address] [place] [address] Medical Director: Duran Marcus MD Sodium [Moles/Vol] 137 mmol/L Normal 135-145 [facility] Comment on above: Performed By: #### 1 92647, [id number], [id number] ####[facility] [address] [place] [address] Medical Director: Duran Marcus MD Urea nitrogen [Mass/Vol] 11 mg/dL Normal 10-20 [facility] Comment on above: Performed By: #### 1 11999, [id number], [id number] ####[facility] [address] [place] [address] Medical Director: Duran Marcus MD Cardiac Catheterization-Repo rton 12-01-2018 Cardiac Catheterization-[facility] Patient: NATALIE GERBER Age: 58 years Sex: Male : 1960 Associated Diagnoses: None Author: DEVYN FERRER MD Indication: 58-year-old man presenting with chest pain suspicious for angina. Urgent heart catheterization was therefore recommended. Procedure: After informed consent was obtained, patient was brought to the cardiac Edging Machine Feeder. He is prepped and draped in usual sterile fashion. We attempted to access the right radial artery. Unable to cannulate the right radial vessel. We therefore moved onto the femoral approach. 2% Xylocaine solution was infiltrated in the right femoral area. A 6 [place]ian vascular sheath was inserted into the right femoral artery using Seldinger technique with no difficulty. Diagnostic coronary angiography was performed using a JL 3.5 cath image the left coronary artery and a JR4 catheter to image the right coronary artery. The JR4 catheter was used to perform left heart catheterization. Patient tolerated the procedure well and there were no complications. Following the procedure, the vascular sheath was removed and hemostasis obtained using an Angio-Seal device. Patient was transferred to the recovery area in stable condition peer Findings: Left main normal LAD normal Circumflex large dominant and normal RCA small nondominant and angiographically normal Left heart catheterization densities an LVEDP of 27 mmHg. Left ventricular angiography shows normal LV function. No mitral regurgitation and no gradient across aortic valve upon pullback. Summary: 1. Angiographically normal coronary arteries. 2. Normal LV function. Normal [facility] Consult Reporton 12-01-2018 Consult Report Patient: SHIV GERBER Age: 58 years Sex: Male : 1960 Associated Diagnoses: None Author: YVROSE LUCERO, [facility] IMPRESSION: 1. Unstable angina 2. CAD 3. Hx of CVA s/p tpa 4. Hypertension 5. Hx of PE 6. Obesity, morbid PLAN: 1. Sx concerning for angina; and has new ST depression in high lateral leads; still requiring IV nitro; recommend cardiac catheteriation; patient agreeable 2. ECHO CC: chest pain HPI: 58-year-old gentleman presents the ER for evaluation of substernal chest discomfort. [place] like a brick was on the center of his chest. It is a pressure tightness. Also some discomfort in his left shoulder and up the left side of his neck. He has no history of coronary artery disease. Heart catheterization many years ago [place]. He also has a history of stroke for which he got thrombolytics. He is a detention for 5 months due to his sciatica. He is . He does get out of the detention. [facility] and he started get this chest discomfort while walking around MEDS: reviewed from Provider Home Page PMH: As noted above FMH: Noncontributory SOCIAL: No tobacco or alcohol use ROS: Constitutional: Negative unless noted in HPI Eyes: Negative unless noted in HPI EMNT: Negative unless noted in HPI CV: As noted in HPI Pulm: Negative unless noted in HPI GI: Negative unless noted in HPI : Negative unless noted in HPI Heme: Negative unless noted in HPI Endo: Negative unless noted in HPI Neuro: Negative unless noted in HPI PHYSICAL EXAM: Vital Signs (last 24 hrs) Last Charted Temp Oral 36.6 degC (DEC 01 04:00) Heart Rate Peripheral 85 bpm (NOV 30 23:00) Resp Rate 15 br/min (DEC 01 06:00) SBP 137 mmHg (DEC 01:00) DBP 63 mmHg (DEC 01 06:00) Weight 140.8 kg (DEC 01 04:00) Height 165.10 cm (NOV 30 21:40) BMI 49.53 (NOV 30:40) General: Stable, with no apparent distress. Neck: JVP 7cm @ 45deg. No carotid bruits. CV: RRR no MRG; Normal S1S2; non-sustained, non-displaced PMI. Lungs: CTAx2. Abdomen: Benign. Extremities: No clubbing, cyanosis, or edema. Intact peripheral pulses. ECG/Telemetry: NSR with new ST depression Last 24 Hours Chemistry BUN 11 mg/dL 12/01/18 Na 137 mmol/L 12/01/18 K 3.7 mmol/L 12/01/18 Chloride 104 mmol/L 12/01/18 CO2, venous 29.0 mmol/L 12/01/18 Creatinine 0.9 mg/dL 12/01/18 Total Protein 7.7 g/dL 11/30/18 Calcium 8.5 mg/dL 12/01/18 Bilirubin, Total 0.36 mg/dL 11/30/18 Alk Phos 191 unit/L 11/30/18 GOT 14 unit/L 11/30/18 GPT 10 unit/L 11/30/18 BUN/Creat Ratio 12.9 12/01/18 Calculated Osmolality 274 mOsm/kg 12/01/18 Globulin 4.2 g/dL 11/30/18 A/G Ratio 0.8 11/30/18 ALB 3.5 g/dL 11/30/18 TROPONIN <0.015 ng/mL 12/01/18 B-type Natriuretic Peptide 7 pg/mL 11/30/18 Glomerular Filtration Rate >60 mL/min/1.73m? 12/01/18 Glucose 108 mg/dL 12/01/18 GFR AA >60 12/01/18 Estimated Creatinine Clearance 79.72 mL/min 12/01/18 Coagulation Protime Patient 11.4 seconds 11/30/18 INR 1.0 11/30/18 APTT Patient 26.9 seconds 11/30/18 Hematology WBC 8.9 x10 RBC 4.44 x10 HGB 12.6 g/dL 12/01/18 HCT 38.9 % 12/01/18 MCV 87.6 fL 12/01/18 MCH 28.5 pg 12/01/18 MCHC 32.5 g/dL 12/01/18 RDW 14.6 12/01/18 Platelet 264 x1000 12/01/18 MPV 7.4 fL 12/01/18 Lymph % 27.2 % 12/01/18 Lamb % 5.2 % 12/01/18 Neutrophil % 65.7 % 12/01/18 Eosin % 1.3 % 12/01/18 Basos % 0.6 % 12/01/18 Lymph Count 2.43 x1000 12/01/18 Lamb Count 0.47 x1000 12/01/18 Neutrophil Count (ANC) 5.88 x1000 12/01/18 Eos Count 0.11 x1000 12/01/18 Baso Count 0.05 x1000 12/01/18 Nucleated RBC 0 /100WBC 12/01/18 Normal [facility] ED Progress Noteon 9 ED Progress Note PT ARRIVES VIA [facility] TO EX 27 WITH C/O LEFT MIDSTERNAL CHEST PRESSURE RADIATING INTO LEFT ARM AND TINGLING INTO LEFT SHOULDER AND LEFT SIDE OF FACE. PT DENIES SOB. PT STATES HE WAS AT [employer] WHEN CHEST PAIN STARTED AND TOOK 2 OF HIS NITRO. PT ALSO C/O NAUSEA, DENIES VOMITING OR DIARRHEA. PT WITH HX OF WI. #20G IV LEFT AC ESTABLISHED BY SQUCOLLEEN. 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 EKG COMPLETE. WILL CONTINUE TO MONITOR. 1910 PT MEDICATED PER ORDER. WILL CONTINUE TO MONITOR. 2050 PT MEDICATED, NITRO GTT INITIATED PER ORDER. WILL CONTINUE TO MONITOR. 2119 REPORT CALLED TO G[facility]O [facility]. PT TO BE TRANSPORTED TO [facility] VIA CART. Normal [facility] HEMOon 12-01-2018 DIFF? No Normal [facility] Comment on above: Performed By: #### 1 79721, [id number], [id number] ####[facility] [address] [place] [address] Medical Director: Duran Marcus MD Erythrocyte distribution width (RBC) [Ratio] 14.6 % High 11.5-14.5 [facility] Comment on above: Performed By: #### 1 09117, 755293, [id number] ####[facility] [address] [place] [address] Medical Director: Duran Marcus MD Hematocrit (Bld) [Volume fraction] 38.9 % Low 41.0-52.0 [facility] Comment on above: Performed By: #### 1 38278, 892206, [id number] ####[facility] [address] [place] [address] Medical Director: Duran Marcus MD Hemoglobin (Bld) [Mass/Vol] 12.6 g/dL Low 13.5-17.5 [facility] Comment on above: Performed By: #### 1 , 673621, [id number] ####[facility] [address] [place] [address] Medical Director: Duran Marcus MD MCH (RBC) [Entitic mass] 28.5 pg Normal 27.0-34.0 [facility] Comment on above: Performed By: #### 1 , 227984, [id number] ####[facility] [address] [place], [place] [id number] Medical Director: Duran Marcus MD MCHC (RBC) [Mass/Vol] 32.5 g/dL Normal 32.0-37.0 [facility] Comment on above: Performed By: #### 1 , 834254, [id number] ####[facility] [address] [place] [address] Medical Director: Duran Marcus MD MCV (RBC) [Entitic vol] 87.6 fL Normal 80.0-100.0 [facility] Comment on above: Performed By: #### 1 , 136116, [id number] ####[facility] [address] [place] [address] Medical Director: Duran Marcus MD Nucleated RBC (Bld) [#/Vol] 0 /100WBC Normal [facility] Comment on above: Performed By: #### 1 , [id number], [id number] ####[facility] [address] [place] [address] Medical Director: Duran Marcus MD Platelet mean volume (Bld) [Entitic vol] 7.4 fL Normal 7.4-10.4 [facility] Comment on above: Performed By: #### 1 72757, [id number], [id number] ####[facility] [address] [place] [address] Medical Director: Duran Marcus MD Platelets (Bld) [#/Vol] 264 x1000 Normal 150-450 [facility] Comment on above: Performed By: #### 1 99976, 685988, [id number] ####[facility] [address] [place] [address] Medical Director: Duran Marcus MD RBC (Bld) [#/Vol] 4.44 x10 Low 4.70-6.[address] [facility] Comment on above: Result Comment: Note : RBC morphology is normal unless otherwise stated. Evaluation performed only if differential is requested. Performed By: #### 1 27335, 136430, [id number] ####[facility] [address] [place] [address] Medical Director: Duran Marcus MD WBC (Bld) [#/Vol] 8.9 10*3/uL Normal [facility] Comment on above: Performed By: #### 1 98859, 488453, [id number] ####[facility] [address] [place] [address] Medical Director: Duran Marcus MD WBC (Bld) [#/Vol] 8.9 x10 Normal 4.5-11.[address] [facility] Comment on above: Performed By: #### 1 18295, 945285, [id number] ####[facility] [address] [place] [address] Medical Director: Duran Marcus MD History and Physicalon 12-01 History and Physical Patient: VICKI GERBER Age: 58 years Sex: Male : 1960 Associated Diagnoses: None Author: JUSTIN LUCERO, [facility] Basic Information Source of history: Self. Present at bedside: Family member. Referral source: Self. History limitation: Clinical condition. Chief Complaint -chest pain History of Present Illness Review of Systems Constitutional: Negative except as documented in history of present illness. Eye: Negative except as documented in history of present illness. Ear/Nose/Mouth/Throat: Negative except as documented in history of present illness. Respiratory: No shortness of breath, No cough, No sputum production. Cardiovascular: Chest pain, No palpitations, No peripheral edema, No syncope. Gastrointestinal: No nausea, No vomiting, No diarrhea, No constipation, No heartburn, No abdominal pain. Genitourinary: No dysuria, No hematuria. Hematology/Lymphatics: No bruising tendency, No bleeding tendency. Endocrine: No excessive thirst, No cold intolerance. Immunologic: Not immunocompromised, No recurrent fevers, No recurrent infections. Integumentary: No rash, No abrasions, No breakdown, No dryness. Neurologic: Alert and oriented X4, No abnormal balance, No confusion. Psychiatric: No anxiety, No depression, No fritz, Not suicidal. Health Status Allergies (3) Active Reaction Fish Oil None Documented Nubain None Documented Toradol None Documented Histories Past Medical History: No qualifying data available Family History: Stroke.. Mother Father Aneurysm.... Mother Heart attack.... Sister Procedure history: Left Heart Catheterization, left ventriculogram. ([id number]) on 12/01/2018 at 58 Years. Total Hip Replacement. (13692). Comments: 11/30/2018 21:39 SREE Johnson RN, Lisa LEFT BACK SX. HERNIA REPAIR. Cholecystectomy; (48036). Social History Social & Psychosocial Habits Alcohol 11/30/2015 Risk Assessment: Denies Alcohol Use Home/Environment 08/06/2016 Lives with: Alone *Living Situation Prior to Admission Home/Independent Home equipment: Walker/Cane Monitoring Equipment in home None *Special Services and Community Resources Prior to Admission None *Mobility Assistance Prior to Admission Total A Home Barriers None *Will patient require additional/new services upon discharge No Nutrition/Health 08/06/2016 Type of diet: Low carbohydrate, Low cholesterol, Low fat Appetite Good Feeding Assistance Independent *Unintentional weight change > 15 lbs in the last 2 months No Substance Abuse 08/05/2016 Risk Assessment: Denies Substance Abuse Tobacco 11/30/2015 Use: Never smoker Domestic Concerns 08/06/2016 Feels highly stressed: No *Requesting to speak to someone regarding stress No Emotional Support Available No . Physical Examination VS/Measurements Vital Signs (last 24 hrs) Last Charted Temp Oral 37 degC (DEC 01 12:00) Heart Rate Peripheral 98 bpm (DEC 01 14:30) Resp Rate 18 br/min (DEC 01 14:30) SBP H 157mmHg (DEC 01 14:30) DBP 90 mmHg (DEC 01 14:30) Weight 140.8 kg (DEC 01 04:00) Height 165.10 cm (NOV 30 21:40) BMI 49.53 (NOV 30 21:40) General: Alert and oriented, No acute distress. Respiratory: Lungs are clear to auscultation, Respirations are non-labored, Breath sounds are equal, Symmetrical chest wall expansion. Cardiovascular: Normal rate, Regular rhythm, No murmur, No gallop, Good pulses equal in all extremities, Normal peripheral perfusion, No edema. Gastrointestinal: Non-tender, Non-distended, Normal bowel sounds, No organomegaly. Genitourinary: No costovertebral angle tenderness. Lymphatics: No lymphadenopathy neck, axilla, groin. Integumentary: Warm, Dry, Smolan, Not intact. Neurologic: Alert, Oriented, Normal sensory, Normal motor function, No focal deficits, Cranial Nerves II-XII are grossly intact, Normal deep tendon reflexes. Psychiatric: Cooperative, Appropriate mood & affect, Normal judgment, Non-suicidal. Review / Management Results review: CBCWD WBC: 8.9 x10 RBC: 4.44 x10 HGB: 12.6 g/dL Low (12/01/18) HCT: 38.9 % Low (12/01/18) MCV: 87.6 fL (12/01/18) MCH: 28.5 pg (12/01/18) MCHC: 32.5 g/dL (12/01/18) RDW: 14.6 High (12/01/18) Platelet: 264 x1000 (12/01/18) MPV: 7.4 fL (12/01/18) CMP BUN: 11 mg/dL (12/01/18) Na: 137 mmol/L (12/01/18) K: 3.7 mmol/L (12/01/18) Chloride: 104 mmol/L (12/01/18) CO2, venous: 29 mmol/L (12/01/18) Glucose: 108 mg/dL High (12/01/18) Creatinine: 0.9 mg/dL (12/01/18) Total Protein: 7.7 g/dL (11/30/18) Calcium: 8.5 mg/dL (12/01/18) Bilirubin, Total: 0.36 mg/dL (11/30/18) Alk Phos: 191 unit/L High (11/30/18) GOT: 14 unit/L Low (11/30/18) GPT: 10 unit/L Low (11/30/18) ALB: 3.5 g/dL (11/30/18) Gen Labs TROPONIN: <0.015 (12/01/18) B-type Natriuretic Peptide: 7 pg/mL (11/30/18) Protime Patient: 11.4 seconds (11/30/18) INR: 1 (11/30/18). Radiology results reviewed Home Medications (13) Active Adderall 30 mg oral tablet 30 mg = 1 tabs, ORAL, DAILY aspirin 81 mg oral tablet 81 mg = 1 tabs, ORAL, DAILY WITH BREAKFAST CeleXA 20 mg oral tablet 20 mg = 1 tabs, ORAL, DAILY Coreg 6.25 mg oral tablet 6.25 mg = 1 tabs, ORAL, DAILY Lasix 20 mg oral tablet 1 caps, ORAL, DAILY NexIUM 40 mg oral delayed release capsule 40 mg = 1 caps, ORAL, DAILY Nitrostat 0.4 mg sublingual tablet 0.4 mg = 1 tabs, PRN, Sublingual, Q5MIN Plavix 75 mg oral tablet 75 mg = 1 tabs, ORAL, DAILY SEROquel 100 mg oral tablet 100 mg = 1 tabs, ORAL, QHS simvastatin 40 mg oral tablet 40 mg = 1 tabs, ORAL, QHS Synthroid 50 mcg (0.05 mg) oral tablet 50 mcg = 1 tabs, ORAL, DAILY BEFORE BREAKFAST traMADol 50 mg oral tablet 100 mg = 2 tabs, PRN, ORAL, [id number] Zestril 10 mg oral tablet 10 mg = 1 tabs, ORAL, DAILY Medications (26) Active Scheduled: (13) AMPHETAMINE-DEXTROAMPHETAMIN E 10MG TAB 30 mg 3 tabs, ORAL, DAILY ASPIRIN EC 81MG TAB 81 mg 1 tabs, ORAL, DAILY WITH BREAKFAST ATORVASTATIN 20MG TAB 20 mg 1 tabs, ORAL, QHS CARVEDILOL 6.25MG TAB 6.25 mg 1 tabs, ORAL, DAILY CITALOPRAM 20MG TAB 20 mg 1 tabs, ORAL, DAILY CLOPIDOGREL 75MG TAB 75 mg 1 tabs, ORAL, DAILY FUROSEMIDE 20MG TABLET 20 mg 1 tabs, ORAL, DAILY BEFORE BREAKFAST LEVOTHYROXINE 50MCG TABLET 50 mcg 1 tabs, ORAL, DAILY BEFORE BREAKFAST LISINOPRIL 10MG TABLET 10 mg 1 tabs, ORAL, DAILY PANTOPRAZOLE 40MG TAB 40 mg 1 tabs, ORAL, DAILY QUETIAPINE 100MG TAB 100 mg 1 tabs, ORAL, QHS SODIUM CHLORIDE SYR/VIAL 10ML 3 mL, IV Push, [id number] SODIUM CHLORIDE SYR/VIAL 10ML 3 mL, IV Push, [id number] Continuous: (4) NITROGLYCERIN IN D5W 50 mg [9.9 mcg/min] + Premix 250 mL 250 mL, IV, 2.97 mL/hr SODIUM CHLORIDE 0.9% 1,000 mL 1,000 mL, IV, 100 mL/hr SODIUM CHLORIDE 0.9% 1,000 mL 1,000 mL, IV, 80 mL/hr SODIUM CHLORIDE 0.9% 250 mL 250 mL, IV, 999 mL/hr PRN: (9) ACETAMINOPHEN 325 MG TAB 650 mg 2 tabs, ORAL, [id number] ACETAMINOPHEN 325 MG TAB 650 mg 2 tabs, ORAL, [id number] ATROPINE 0.1MG/1ML 10ML SYRINGE 1 mg 10 mL, IV Push, PRN NITROGLYCERIN 0.4MG SL TABLET 0.4 mg 1 tabs, Sublingual, Q5MIN ONDANSETRON=ZOFRAN INJ 4 mg 2 mL, IV Push, [id number] SODIUM CHLORIDE SYR/VIAL 10ML 3 mL, IV Push, PRN SODIUM CHLORIDE SYR/VIAL 10ML 3 mL, IV Push, PRN TramADOL 50MG TABLET 100 mg 2 tabs, ORAL, [id number] ZOLPIDEM 2.5MG/ 0.5 TABLET 2.5 mg 1 EA, ORAL, QHS/[id number] Impression and Plan - Normal [facility] History and Physical Patient: VICKI GERBER Age: 58 years Sex: Male : 1960 Associated Diagnoses: None Author: CONCETTA MCELROY MD INTER[facility] Basic Information Source of history: Self. Present at bedside: Family member. Referral source: Self. History limitation: Clinical condition. Chief Complaint -chest pain History of Present Illness Patient presented emergency room, and the chest pain. The pain was mainstem and the like a brick on his chest. Associated with the chest pressure. He had a heart catheterization many years ago in [place]. He has a history of stroke for which she got thrombosis. He is a detention for sciatica. He is very worried he is a store he started having chest pain. Review of Systems Constitutional: Negative except as documented in history of present illness. Eye: Negative except as documented in history of present illness. Ear/Nose/Mouth/Throat: Negative except as documented in history of present illness. Respiratory: No shortness of breath, No cough, No sputum production. Cardiovascular: Negative, No chest pain, No palpitations, No peripheral edema, No syncope. Gastrointestinal: No nausea, No vomiting, No diarrhea, No constipation, No heartburn, No abdominal pain. Genitourinary: No dysuria, No hematuria. Hematology/Lymphatics: No bruising tendency, No bleeding tendency. Endocrine: No excessive thirst, No cold intolerance. Immunologic: Not immunocompromised, No recurrent fevers, No recurrent infections. Integumentary: No rash, No abrasions, No breakdown, No dryness. Neurologic: Alert and oriented X4, No abnormal balance, No confusion. Psychiatric: No anxiety, No depression, No fritz, Not suicidal. Health Status Allergies (3) Active Reaction Fish Oil None Documented Nubain None Documented Toradol None Documented Histories Past Medical History: No qualifying data available , High blood pressure CAD Morbid obesity Sciatica, Hypothyroidism Dyslipidemia. ADHD Depression. Family History: Stroke.. Mother Father Aneurysm.... Mother Heart attack.... Sister Procedure history: Left Heart Catheterization, left ventriculogram. ([id number]) on 12/01/2018 at 58 Years. Total Hip Replacement. (13832). Comments: 11/30/2018 21:39 ROMELIAT - Elizabeth PALACIO, Lisa LEFT BACK SX. HERNIA REPAIR. Cholecystectomy; (91018). Social History Social & Psychosocial Habits Alcohol 11/30/2015 Risk Assessment: Denies Alcohol Use Home/Environment 08/06/2016 Lives with: Alone *Living Situation Prior to Admission Home/Independent Home equipment: Walker/Cane Monitoring Equipment in home None *Special Services and Community Resources Prior to Admission None *Mobility Assistance Prior to Admission Total A Home Barriers None *Will patient require additional/new services upon discharge No Nutrition/Health 08/06/2016 Type of diet: Low carbohydrate, Low cholesterol, Low fat Appetite Good Feeding Assistance Independent *Unintentional weight change > 15 lbs in the last 2 months No Substance Abuse 08/05/2016 Risk Assessment: Denies Substance Abuse Tobacco 11/30/2015 Use: Never smoker Domestic Concerns 08/06/2016 Feels highly stressed: No *Requesting to speak to someone regarding stress No Emotional Support Available No . Physical Examination VS/Measurements Vital Signs (last 24 hrs) Last Charted Temp Oral 37 degC (DEC 01 12:00) Heart Rate Peripheral 97 bpm (DEC 01 15:00) Resp Rate H 21br/min (DEC 01 15:00) SBP H 157mmHg (DEC 01 14:30) DBP 90 mmHg (DEC 01 14:30) Weight 140.8 kg (DEC 01 04:00) Height 165.10 cm (NOV 30 21:40) BMI 49.53 (NOV 30 21:40) General: Alert and oriented, No acute distress. Respiratory: Lungs are clear to auscultation, Respirations are non-labored, Breath sounds are equal, Symmetrical chest wall expansion. Cardiovascular: Normal rate, Regular rhythm, No murmur, No gallop, Good pulses equal in all extremities, Normal peripheral perfusion, No edema. Gastrointestinal: Non-tender, Non-distended, Normal bowel sounds, No organomegaly. Genitourinary: No costovertebral angle tenderness. Lymphatics: No lymphadenopathy neck, axilla, groin. Integumentary: Warm, Dry, Smolan, Not intact. Neurologic: Alert, Oriented, Normal sensory, Normal motor function, No focal deficits, Cranial Nerves II-XII are grossly intact, Normal deep tendon reflexes. Psychiatric: Cooperative, Appropriate mood & affect, Normal judgment, Non-suicidal. Review / Management Results review: CBCWD WBC: 8.9 x10 RBC: 4.44 x10 HGB: 12.6 g/dL Low (12/01/18) HCT: 38.9 % Low (12/01/18) MCV: 87.6 fL (12/01/18) MCH: 28.5 pg (12/01/18) MCHC: 32.5 g/dL (12/01/18) RDW: 14.6 High (12/01/18) Platelet: 264 x1000 (12/01/18) MPV: 7.4 fL (12/01/18) CMP BUN: 11 mg/dL (12/01/18) Na: 137 mmol/L (12/01/18) K: 3.7 mmol/L (12/01/18) Chloride: 104 mmol/L (12/01/18) CO2, venous: 29 mmol/L (12/01/18) Glucose: 108 mg/dL High (12/01/18) Creatinine: 0.9 mg/dL (12/01/18) Total Protein: 7.7 g/dL (11/30/18) Calcium: 8.5 mg/dL (12/01/18) Bilirubin, Total: 0.36 mg/dL (11/30/18) Alk Phos: 191 unit/L High (11/30/18) GOT: 14 unit/L Low (11/30/18) GPT: 10 unit/L Low (11/30/18) ALB: 3.5 g/dL (11/30/18) Gen Labs TROPONIN: <0.015 (12/01/18) B-type Natriuretic Peptide: 7 pg/mL (11/30/18) Protime Patient: 11.4 seconds (11/30/18) INR: 1 (11/30/18). Radiology results reviewed Home Medications (13) Active Adderall 30 mg oral tablet 30 mg = 1 tabs, ORAL, DAILY aspirin 81 mg oral tablet 81 mg = 1 tabs, ORAL, DAILY WITH BREAKFAST CeleXA 20 mg oral tablet 20 mg = 1 tabs, ORAL, DAILY Coreg 6.25 mg oral tablet 6.25 mg = 1 tabs, ORAL, DAILY Lasix 20 mg oral tablet 1 caps, ORAL, DAILY NexIUM 40 mg oral delayed release capsule 40 mg = 1 caps, ORAL, DAILY Nitrostat 0.4 mg sublingual tablet 0.4 mg = 1 tabs, PRN, Sublingual, Q5MIN Plavix 75 mg oral tablet 75 mg = 1 tabs, ORAL, DAILY SEROquel 100 mg oral tablet 100 mg = 1 tabs, ORAL, QHS simvastatin 40 mg oral tablet 40 mg = 1 tabs, ORAL, QHS Synthroid 50 mcg (0.05 mg) oral tablet 50 mcg = 1 tabs, ORAL, DAILY BEFORE BREAKFAST traMADol 50 mg oral tablet 100 mg = 2 tabs, PRN, ORAL, [id number] Zestril 10 mg oral tablet 10 mg = 1 tabs, ORAL, DAILY Medications (26) Active Scheduled: (13) AMPHETAMINE-DEXTROAMPHETAMIN E 10MG TAB 30 mg 3 tabs, ORAL, DAILY ASPIRIN EC 81MG TAB 81 mg 1 tabs, ORAL, DAILY WITH BREAKFAST ATORVASTATIN 20MG TAB 20 mg 1 tabs, ORAL, QHS CARVEDILOL 6.25MG TAB 6.25 mg 1 tabs, ORAL, DAILY CITALOPRAM 20MG TAB 20 mg 1 tabs, ORAL, DAILY CLOPIDOGREL 75MG TAB 75 mg 1 tabs, ORAL, DAILY FUROSEMIDE 20MG TABLET 20 mg 1 tabs, ORAL, DAILY BEFORE BREAKFAST LEVOTHYROXINE 50MCG TABLET 50 mcg 1 tabs, ORAL, DAILY BEFORE BREAKFAST LISINOPRIL 10MG TABLET 10 mg 1 tabs, ORAL, DAILY PANTOPRAZOLE 40MG TAB 40 mg 1 tabs, ORAL, DAILY QUETIAPINE 100MG TAB 100 mg 1 tabs, ORAL, QHS SODIUM CHLORIDE SYR/VIAL 10ML 3 mL, IV Push, [id number] SODIUM CHLORIDE SYR/VIAL 10ML 3 mL, IV Push, [id number] Continuous: (4) NITROGLYCERIN IN D5W 50 mg [9.9 mcg/min] + Premix 250 mL 250 mL, IV, 2.97 mL/hr SODIUM CHLORIDE 0.9% 1,000 mL 1,000 mL, IV, 100 mL/hr SODIUM CHLORIDE 0.9% 1,000 mL 1,000 mL, IV, 80 mL/hr SODIUM CHLORIDE 0.9% 250 mL 250 mL, IV, 999 mL/hr PRN: (9) ACETAMINOPHEN 325 MG TAB 650 mg 2 tabs, ORAL, [id number] ACETAMINOPHEN 325 MG TAB 650 mg 2 tabs, ORAL, [id number] ATROPINE 0.1MG/1ML 10ML SYRINGE 1 mg 10 mL, IV Push, PRN NITROGLYCERIN 0.4MG SL TABLET 0.4 mg 1 tabs, Sublingual, Q5MIN ONDANSETRON=ZOFRAN INJ 4 mg 2 mL, IV Push, [id number] SODIUM CHLORIDE SYR/VIAL 10ML 3 mL, IV Push, PRN SODIUM CHLORIDE SYR/VIAL 10ML 3 mL, IV Push, PRN TramADOL 50MG TABLET 100 mg 2 tabs, ORAL, [id number] ZOLPIDEM 2.5MG/ 0.5 TABLET 2.5 mg 1 EA, ORAL, QHS/[id number] Impression and Plan -1. Unstable angina. Patient on undergo cardiac catheter today. Continue beta heidi, aspirin, Plavix 2. History of stroke and an aspirin and Plavix. Morbid obesity advisable diet and exercise 4. GERD. Continue PPI. 5. Hypothyroidism. Continue Synthroid. 6. Depression continue Seroquel and citalopram [employer] Normal [facility] Nursing Clinical Noteon 070 Nursing Clinical Note 0800 Pt sitting in bed, assessment as charted. EKG sinus tach. Reports shoulder pain, occasional numbness to left side of face. Nitro infusing. Scabs noted all over body, pt reports yady a leader tier, appears without infection. at bedside, plan for cardiac cath this afternoon, Pt updated. All needs addressed. 1240 Pt to cardiac catheterization technologist, belongings secured. Report at bedside. 1340 Return from cardiac catheterization technologist, bedrest maintained. Right groin site intact, no drainage, pulse palpable. Pt reports continued shoulder pain and facial numbness. 1640 Discussed plan of care w. Dr. Mcelroy, Sebastian for floor transfer, MRI, carotid duplex and neuro consult ordered. Normal [facility] Nursing Clinical Note Received handoff r eport from ED RN. Pt brought to floor via cart. Pt transferred from cart to bed with assist of cane. See [facility]. Pt connected to b/p cuff/ cardiac cath lab radiology technologist. and pulse ox. Called Dr Mcelroy and obtained orders. Normal [facility] TROPONINon 12-01-2018 Troponin I.cardiac [Mass/Vol] ng/mL Normal 0.000-0.09 9 [facility] Comment on above: Order Comment: First Troponin will be drawn STAT, Report abnormal results to Attending Result Comment: This test is a quantitative determination of cardiac troponin I. High levels of serum biotin may interfere with this test. Performed By: #### 1 [id number] ####[facility] [address] [place] [address] Medical Director: Duran Marcus MD Troponin I.cardiac [Mass/Vol] ng/mL Normal 0.000-0.09 9 [facility] Comment on above: Order Comment: First Troponin will be drawn STAT, Report abnormal results to Attending Result Comment: This test is a quantitative determination of cardiac troponin I. High levels of serum biotin may interfere with this test. Performed By: #### 1 [id number] ####[facility] [id number] [place] [address] Medical Director: Duran Marcus MD Vascular Lab Reporton 2018 Vascular Lab Report PRELIMINARY VASCULAR REPORT Carotid duplex completed No hemodynamically significant stenosis bilateral internal carotid arteries. REPORT TO FOLLOW Normal [facility] APTTon 11-30-2018 aPTT Coag (Bld) [Time] 26.9 s Low 28.0-38.0 [facility] Comment on above: Performed By: #### 1 09659, 901874, 677103, 201741, 474754, [id number] #### [facility] [address] [place] [address] Day Care Teacher: Duran Marcus MD AUTO DIFFon 11-30-2018 Basophils (Bld) [#/Vol] 0.08 x1000 Normal 0.00-0.20 [facility] Comment on above: Performed By: #### 1 83806, 685857, 707363, 412208, 142857, 5708711 #### [facility] [address] [place] [address] Day Care Teacher: Duran Marcus MD Basos % 0.8 % Normal [facility] Comment on above: Performed By: #### 1 79359, 327734, 488081, 222315, 544895, 8279613 #### [facility] [address] [place] [address] Day Care Teacher: Duran Marcus MD Eos Count 0.11 x1000 Normal 0.00-0.50 [facility] Comment on above: Performed By: #### 1 85852, 973813, 999240, 899516, 192713, 0939454 #### [facility] [address] [place] [address] Day Care Teacher: Duran Marcus MD Eosinophils/100 WBC (Bld) 1.1 % Normal [facility] Comment on above: Performed By: #### 1 79077, 835243, 211884, 649140, 200608, 7516750 #### [facility] [address] [place] [address] Day Care Teacher: Duran Marcus MD Lymphocytes (Bld) [#/Vol] 1.79 x1000 Normal 1.20-4.80 [facility] Comment on above: Performed By: #### 1 04761, 001321, 422345, 066462, 785398, 1556601 #### [facility] [address] [place] [address] Day Care Teacher: Duran Marcus MD Lymphocytes/100 WBC (Bld) 17.6 % Normal [facility] Comment on above: Performed By: #### 1 10566, 081574, 199915, 247067, 093374, 8031210 #### [facility] [address] [place] [address] Day Care Teacher: Duran Marcus MD Lamb Count 0.41 x1000 Normal 0.10-1.00 [facility] Comment on above: Performed By: #### 1 36110, 013401, 961674, 051147, 500173, 6994173 #### [facility] [address] [place] [address] Day Care Teacher: Duran Marcus MD Monocytes/100 WBC (Bld) 4.0 % Normal [facility] Comment on above: Performed By: #### 1 48553, 230159, 038140, 337221, 686147, 8899312 #### [facility] [address] [place] [address] Day Care Teacher: Duran Marcus MD Neutrophils (Bld) [#/Vol] 7.78 x1000 Normal 1.40-8.80 [facility] Comment on above: Performed By: #### 1 15719, 001173, 709570, 627228, 941426, 2337945 #### [facility] [address] [place] [address] Day Care Teacher: Duran Marcus MD Neutrophils/100 WBC (Bld) 76.4 % Normal [facility] Comment on above: Performed By: #### 1 29964, 813378, 769745, 692209, 491558, 3040119 #### [facility] [address] [place] [address] Day Care Teacher: Duran Marcus MD B TYPE PEPon 11-30-2018 Natriuretic peptide B (Bld) [Mass/Vol] 7 pg/mL Normal 0-100 [facility] Comment on above: Performed By: #### 3 [id number] ####[facility] [address] [place] [address] Medical Director: Duran Marcus MD COMPMETAon 11-30-2018 Albumin/Globulin [Mass ratio] 0.8 {ratio} Normal [facility] Comment on above: Performed By: #### 1 32333, 091460, 895526, 993349, 463380, 2756560 #### [facility] [address] [place] [address] Day Care Teacher: Duran Marcus MD GFR AA >60 Normal [facility] Comment on above: Result Comment: Afri can Djib[place]ian GFR Calc Medical judgement is necessary to interpret GFR. The calculated GFR may not accurately reflect renal status in patients >70 years, women, acutely ill hospitalized patients and patients with acute renal failure or known renal disease. The MDRD GFR formula is valid only for adults greater than 18 years of age. Note: Creatinine clearance (not GFR) should be used for drug dosing. Performed By: #### 1 15303, 156633, 724535, 222366, 470123, 5143990 #### [facility] [address] [place] [address] Day Care Teacher: Duran Marcus MD GFR/1.73 sq M predicted among non-blacks MDRD (S/P/Bld) [Vol rate/Area] mL/min/{1.73_m2} Normal [facility] Comment on above: Result Comment: Non GFR Calc Medical judgement is necessary to interpret GFR. The calculated GFR may not accurately reflect renal status in patients >70 years, women, acutely ill hospitalized patients and patients with acute renal failure or known renal disease. The MDRD GFR formula is valid only for adults greater than 18 years of age. Note: Creatinine clearance (not GFR) should be used for drug dosing. Performed By: #### 1 39233, 421396, 997160, 468286, 613825, 5530084 #### [facility] [address] [place] [address] Day Care Teacher: Duran Marcus MD Globulin (S) [Mass/Vol] 4.2 g/dL Normal [facility] Comment on above: Performed By: #### 1 33570, 942010, 685503, 291459, 578903, 2071585 #### [facility] [address] [place] [address] Day Care Teacher: Duran Marcus MD Osmolality [Osmolality] 273 mOsm/kg Low 275-295 [facility] Comment on above: Performed By: #### 1 95118, 974501, 394048, 194276, 453766, 1074361 #### [facility] [address] [place] [address] Day Care Teacher: Duran Marcus MD Urea nitrogen/Creatinine [Mass ratio] 12.4 mg/mg Normal [facility] Comment on above: Performed By: #### 1 03533, 149122, 094651, 772538, 391578, 3605255 #### [facility] [address] [place] [address] Day Care Teacher: Duran Marcus MD Albumin [Mass/Vol] 3.5 g/dL Normal 3.4-5.0 [facility] Comment on above: Performed By: #### 1 81715, 329388, 358153, 955417, 358312, 7181583 #### [facility] [address] [place] [address] Day Care Teacher: Duran Marcus MD Alk Phos 191 unit/L High 45-117 [facility] Comment on above: Performed By: #### 1 23893, 312843, 999874, 439584, 154696, 3817054 #### [facility] [address] [place] [address] Day Care Teacher: Duran Marcus MD Bilirubin [Mass/Vol] 0.36 mg/dL Normal 0.20-1.00 [facility] Comment on above: Performed By: #### 1 38341, 752259, 344873, 267210, 135734, 5099616 #### [facility] [address] [place] [address] Day Care Teacher: Duran Marcus MD Calcium [Mass/Vol] 8.4 mg/dL Low 8.5-10.5 [facility] Comment on above: Performed By: #### 1 43013, 056421, 360642, 658596, 799773, 1845680 #### [facility] [address] [place] [address] Day Care Teacher: Duran Marcus MD Chloride [Moles/Vol] 105 mmol/L Normal 100-109 [facility] Comment on above: Performed By: #### 1 42482, 338119, 402383, 643736, 994591, 7254462 #### [facility] [address] [place] [address] Day Care Teacher: Duran Marcus MD CO2, venous 24.5 mmol/L Normal 21.0-32.0 [facility] Comment on above: Performed By: #### 1 13640, 485601, 913782, 137098, 646597, 7612609 #### [facility] [address] [place] [address] Day Care Teacher: Duran Marcus MD Creatinine [Mass/Vol] 0.8 mg/dL Normal 0.7-1.3 [facility] Comment on above: Performed By: #### 1 87960, 758427, 649098, 832093, 495904, 1019359 #### [facility] [address] [place] [address] Day Care Teacher: Duran Marcus MD Glucose [Mass/Vol] 104 mg/dL High 72-100 [facility] Comment on above: Result Comment: Stacie puncture should occur prior to sulfasalazine administration due to the potential for falsely depressed results. Venipuncture should occur prior to sulfapyridine administration due to the potential falsely elevated results. Baseline assay values before administration of sulfasalazine and sulfapyridine therapy would not be affected. Performed By: #### 1 40768, 240821, 318753, 431412, 254479, 7761671 #### [facility] [address] [place] [address] Day Care Teacher: Duran Marcus MD GOT 14 unit/L Low 15-37 [facility] Comment on above: Result Comment: Stacie puncture should occur prior to sulfasalazine and/or sulfapyridine administration due to the potential for falsely depressed results. Baseline assay values before administration of sulfasalazine and sulfapyridine therapy would not be affected. Performed By: #### 1 86888, 085588, 606676, 592733, 001813, 9197139 #### [facility] [address] [place] [address] Day Care Teacher: Duran Marcus MD GPT 10 unit/L Low 16-61 [facility] Comment on above: Result Comment: Stacie puncture should occur prior to sulfasalazine and/or sulfapyridine administration due to the potential for falsely depressed results. Baseline assay values before administration of sulfasalazine and sulfapyridine therapy would not be affected. Performed By: #### 1 82457, 170800, 821973, 027060, 014304, 2487706 #### [facility] [address] [place] [address] Day Care Teacher: Duran Marcus MD Potassium [Moles/Vol] 3.9 mmol/L Normal 3.5-5.1 [facility] Comment on above: Performed By: #### 1 50961, 551390, 666922, 872570, 338394, 8231802 #### [facility] [address] [place] [address] Day Care Teacher: Duran Marcus MD Protein [Mass/Vol] 7.7 g/dL Normal 6.0-8.5 [facility] Comment on above: Performed By: #### 1 53248, 236408, 304951, 936562, 178958, 8655416 #### [facility] [address] [place] [address] Day Care Teacher: Duran Marcus MD Sodium [Moles/Vol] 137 mmol/L Normal 135-145 [facility] Comment on above: Performed By: #### 1 26474, 843041, 261976, 755078, 666347, 5406773 #### [facility] [address] [place] [address] Day Care Teacher: Duran Marcus MD Urea nitrogen [Mass/Vol] 10 mg/dL Normal 10-20 [facility] Comment on above: Performed By: #### 1 23157, 769419, 599462, 909509, 148218, 7991178 #### [facility] [address] [place] [address] Day Care Teacher: Duran Marcus MD ED Physician Reporton 2018 ED Physician Report Patient: SHIV GERBER Age: 58 years Sex: Male : 1960 Associated Diagnoses: Chest pain; History of coronary artery disease Author: JAYDEN CONLEY DO Basic Information Time seen: No qualifying data available. . History source: Patient, EMS. Arrival mode: Ambulance. History limitation: None. History of Present Illness The patient presents with chest pain. The course/duration of symptoms is improving. Location: Left chest. Radiating pain: left side of the neck. left shoulder. The character of symptoms is pressure and achy. The degree at onset was 6 /10. The degree at present is 4.5 /10. The relieving factor is nitroglycerin. Risk factors consist of coronary artery disease. Prior episodes: last myocardial infarction was 2005. Therapy today Nitroglycerin and Aspirin. Associated symptoms: shortness of breath, diaphoresis and chest pain. This is a 58 y/o male, with a history of WI and CHF, presenting to the ED via EMS for L sided CP. Per squad pt was diaphoretic and experiencing CP when he called squ. En route squad gave pt 1 NTG and 1 324mg ASA with relief. Pt was not diaphoretic en route . Squad notes a wheeze that is normal for pt and a slight ST abnormality. Pt rates his CP at onset a 6/10, took 1 NTG with relief to a 2/10. The pain flared up and pt took another NTG with relief. Pain came back a 3rd time prompting pt to call squad. At present pt rates pain 4.5/10. Pt describes pain as a left sided chest pressure and ache that radiates up through his shoulder to his neck. Pt notes SOB only with exertion. Pt's last WI was in 2005. However, he was seen a few years ago for CHF. Pt is anticoagulated on Plavix. No pain radiation to back. No other complaints voiced at this time.. Review of Systems Constitutional symptoms: No fever, no chills. Skin symptoms: No rash, Eye symptoms: Vision unchanged. ENMT symptoms: No sore throat, no nasal congestion. Respiratory symptoms: No shortness of breath, no cough. Cardiovascular symptoms: Chest pain, No palpitations, Gastrointestinal symptoms: No abdominal pain, no nausea, no vomiting. Genitourinary symptoms: No dysuria, Musculoskeletal symptoms: No back pain, no Joint pain. Neurologic symptoms No headache, Additional review of systems information: All other systems reviewed and otherwise negative. Health Status Allergies: Allergic Reactions (All) Severity Not Documented Fish Oil- No reactions were documented. Nubain- No reactions were documented. Toradol- No reactions were documented.. Medications: (Selected) Prescriptions Prescribed Synthroid 50 mcg (0.05 mg) oral tablet: 50 mcg, 1 tabs, ORAL, DAILY BEFORE BREAKFAST, 30 tabs, 0 Refill(s) Documented Medications Documented Adderall 20 mg oral tablet: 20 mg, 1 tabs, ORAL, DAILY, 0 Refill(s) CeleXA 20 mg oral tablet: 20 mg, 1 tabs, ORAL, DAILY, 30 tabs, 0 Refill(s) Coreg 6.25 mg oral tablet: 6.25 mg, 1 tabs, ORAL, DAILY, 180 tabs, 0 Refill(s) Lasix 20 mg oral tablet: 1 caps, ORAL, DAILY, 1 tabs, 0 Refill(s) NexIUM 40 mg oral delayed release capsule: 40 mg, 1 caps, ORAL, DAILY, 30 caps, 0 Refill(s) Nitrostat 0.4 mg sublingual tablet: 0.4 mg, 1 tabs, Sublingual, Q5MIN, If chest pain not relieved in 5 minutes after first dose, seek immediate medical attention, PRN: as needed for chest pain, 0 Refill(s) Plavix 75 mg oral tablet: 75 mg, 1 tabs, ORAL, DAILY, 30 tabs, 0 Refill(s) SEROquel 100 mg oral tablet: 100 mg, 1 tabs, ORAL, QHS, 270 tabs, 0 Refill(s) Zestril 10 mg oral tablet: 10 mg, 1 tabs, ORAL, DAILY, 0 Refill(s) aspirin 81 mg oral tablet: 81 mg, 1 tabs, ORAL, DAILY WITH BREAKFAST, 30 tabs, 0 Refill(s) fentaNYL 50 mcg/hr transdermal film, extended release: 1 patches, Topical, [id number], 0 Refill(s) simvastatin 40 mg oral tablet: 40 mg, 1 tabs, ORAL, QHS, 30 tabs, 0 Refill(s) traMADol 50 mg oral tablet: 100 mg, 2 tabs, ORAL, [id number], PRN: as needed for pain, 0 Refill(s), per nurse's notes. Past Medical/ Family/ Social History Medical history: Reviewed and Noncontributory. Surgical history: Reviewed and Noncontributory. Family history: Stroke.. Mother Father Aneurysm.... Mother Heart attack.... Sister , Reviewed as documented in chart. Problem list: Active Problems (3) At risk for falls CVA (cerebral vascular accident) Impaired activities of daily living , per nurse's notes. Physical Examination Vital Signs Vital Signs 11/30/2018 17:08 EDT Temperature Oral 36.6 degC NORMAL Peripheral Pulse Rate 95 bpm NORMAL Respiratory Rate 20 br/min NORMAL Systolic Blood Pressure 121 mmHg NORMAL Diastolic Blood Pressure 71 mmHg NORMAL SpO2 100 % NORMAL SpO2 99 % NORMAL Oxygen Flow Rate 4 L/min Oxygen Therapy Nasal cannula Oxygen Therapy Room air Weight Measured Type of Scale Patient Stated Weight Height/Length Dosing 165.10 cm Patient Stated Weight 144.2 kg . Per nurse's notes. General: Alert, no acute distress. Skin: Warm, dry, no rash. Head: Normocephalic, atraumatic. Neck: Supple, trachea midline. Eye: Normal conjunctiva, vision unchanged. Ears, nose, mouth and throat: Oral mucosa moist. Cardiovascular: Regular rate and rhythm, No murmur, Normal peripheral perfusion, No edema. Respiratory: Lungs are clear to auscultation, respirations are non-labored, breath sounds are equal. Gastrointestinal: Soft, Nontender, Non distended, Obese. Back: Normal range of motion, Normal alignment. Musculoskeletal: Normal ROM, normal strength. Neurological Alert and oriented to person, place, time, and situation, No focal neurological deficit observed, normal motor observed, normal speech observed. Medical Decision Making Documents reviewed: Emergency department nurses' notes, flowsheet, emergency department records, prior records. Electrocardiogram: Time 11/30/2018 17:12:00, rate 96, normal sinus rhythm, QRS 72ms. QTc 429ms. No STEMI. Nonspecific T-wave flattening. Results review: Lab results : Laboratory 11/30/2018 18:34 EDT Estimated Creatinine Clearance 89.69 mL/min 11/30/2018 17:46 EDT BUN 10 mg/dL NORMAL Na 137 mmol/L NORMAL K 3.9 mmol/L NORMAL Chloride 105 mmol/L NORMAL CO2, venous 24.5 mmol/L NORMAL Glucose 104 mg/dL HI Creatinine 0.8 mg/dL NORMAL Total Protein 7.7 g/dL NORMAL Calcium 8.4 mg/dL LOW Bilirubin, Total 0.36 mg/dL NORMAL Alk Phos 191 unit/L HI GOT 14 unit/L LOW GPT 10 unit/L LOW BUN/Creat Ratio 12.4 NA Calculated Osmolality 273 mOsm/kg LOW Globulin 4.2 g/dL NA A/G Ratio 0.8 NA ALB 3.5 g/dL NORMAL TROPONIN <0.015 ng/mL NORMAL B-type Natriuretic Peptide 7 pg/mL NORMAL Glomerular Filtration Rate >60 mL/min/1.73m? NA GFR AA >60 NA Protime Patient 11.4 seconds NORMAL INR 1.0 NA APTT Patient 26.9 seconds LOW WBC 10.2 x10 RBC 4.12 x10 HGB 11.9 g/dL LOW HCT 36.0 % LOW MCV 87.5 fL NORMAL MCH 29.0 pg NORMAL MCHC 33.2 g/dL NORMAL RDW 14.3 NORMAL Platelet 254 x1000 NORMAL MPV 7.4 fL NORMAL Nucleated RBC 0 /100WBC NA Lymph % 17.6 % NA Basos % 0.8 % NA Lymph Count 1.79 x1000 NORMAL Lamb Count 0.41 x1000 NORMAL Neutrophil Count (ANC) 7.78 x1000 NORMAL Eos Count 0.11 x1000 NORMAL Baso Count 0.08 x1000 NORMAL . Radiology results: CHEST PORTABLE 11/30/18 17:54:39 PROCEDURE: XR CHEST PORTABLE TECHNIQUE: Chest radiograph single view. HISTORY: CHEST PAIN COMPARISONS: 10/11/2016 . FINDINGS: Heart: Normal. Mediastinum/Vessels: Normal. Lungs/Pleural space: Normal. Bony thorax: No acute osseous abnormality. Life support devices: None. IMPRESSION: No acute cardiopulmonary abnormality. This document is electronically signed by Jey Newsome MD., November 30 2018 06:50:15 PM ET Signed By: JEY NEWSOME MD. Cardiac work-up initiated. D-dimer is normal. His pain did improve with nitroglycerin. Therefore he was started on a nitroglycerin infusion. Was given Zofran for nausea. Case discussed with Dr. Parekh and Dr. Mcelroy. Recommend admission to the intensive care unit on a nitroglycerin infusion. Repeat EKG is reviewed. Repeat exam is improved. Patient was admitted to the ICU for close hemodynamic monitoring, cardiology consulted. Dr. Parekh recommended a dose of Lovenox treatment dose to cover for ACS. Patient consents to Lovenox and understands there is risk of bleeding. He was given Protonix empirically. Denies history of bleeding. Reexamination/ Reevaluation Vital signs results included from flowsheet : Vital Signs 11/30/2018 19:00 EDT Heart Rate Monitored 92 bpm NORMAL Peripheral Pulse Rate 89 bpm NORMAL Respiratory Rate 14 br/min NORMAL Systolic Blood Pressure 147 mmHg HI Diastolic Blood Pressure 81 mmHg NORMAL Mean Arterial Pressure, Cuff 97 mmHg SpO2 98 % NORMAL Oxygen Flow Rate 2 L/min Oxygen Therapy Nasal cannula per nurse's notes Notes: Discussed today's findings, in addition to providing specific details for the plan of care and counseling regarding the diagnosis, prognosis, and need for observation admission. All questions were answered.. Impression and Plan Diagnosis Chest pain (ALR84-HC R07.9, Admitting, Emergency medicine, Medical) History of coronary artery disease (RYM28-QD Z86.79, Admitting, Emergency medicine, Medical) Plan Condition: Stable. Disposition: Admit time 11/30/2018 19:56:00, Place in Observation Unit, CONCETTA MCELROY MD, Pt is being admitted to outpatient with observation services, critical care unit. Counseled: Patient, Regarding diagnosis, Regarding diagnostic results, Regarding treatment plan, Patient indicated understanding of instructions. Notes: Matilda German, deshaun for and in the presence of Dr. Jayden Conley DO. Rolandoibe Signature: Mae King, 11/30/2018 17:32 , I personally performed the services described in the documentation, reviewed and edited the documentation which was dictated to the scribe in my presence, and it accurately records my words and actions.. Normal [facility] ED Pre-Arrival Formon 2018 ED Pre-Arrival Form Pre-Arrival Summary Name: MARLEY, Current Date: 11/30/2018 17:08:43 EDT Gender: Date of : Age: Pre-Arrival Type: EMS ETA: 11/30/2018 17:28:00 EDT Primary Care Physician: Presenting Problem: Pre-Arrival User: Wendy Cuello RN Referring Source: Location: [address] [place] [address] Emergency Department [address] [place] [address] Notes: Vital Signs: Doctor Call Back: DNR Status: Miscellaneous Issues: Normal [facility] HEMOon 11-30-2018 DIFF? No Normal [facility] Comment on above: Performed By: #### 1 28779, 793535, 211437, 061864, 750877, [id number] #### [facility] [address] [place] [address] Day Care Teacher: Duran Marcus MD Erythrocyte distribution width (RBC) [Ratio] 14.3 % Normal 11.5-14.5 [facility] Comment on above: Performed By: #### 1 81192, 142723, 819821, 660525, 578964, 8328297 #### [facility] [address] [place] [address] Day Care Teacher: Duran Marcus MD Hematocrit (Bld) [Volume fraction] 36.0 % Low 41.0-52.0 [facility] Comment on above: Performed By: #### 1 77311, 756251, 390387, 131190, 711413, 2478492 #### [facility] [address] [place] [address] Day Care Teacher: Duran Marcus MD Hemoglobin (Bld) [Mass/Vol] 11.9 g/dL Low 13.5-17.5 [facility] Comment on above: Performed By: #### 1 10432, 059173, 538485, 980440, 047856, 5288958 #### [facility] [address] [place] [address] Day Care Teacher: Duran Marcus MD MCH (RBC) [Entitic mass] 29.0 pg Normal 27.0-34.0 [facility] Comment on above: Performed By: #### 1 84469, 869477, 388537, 429121, 886716, 9392214 #### [facility] [address] [place], [place] [address] Day Care Teacher: Duran Marcus MD MCHC (RBC) [Mass/Vol] 33.2 g/dL Normal 32.0-37.0 [facility] Comment on above: Performed By: #### 1 51951, 308137, 613493, 061411, 425286, 1714548 #### [facility] [address] [place], [place] [address] Day Care Teacher: Duran Marcus MD MCV (RBC) [Entitic vol] 87.5 fL Normal 80.0-100.0 [facility] Comment on above: Performed By: #### 1 99879, 387181, 515217, 897817, 081024, 0212531 #### [facility] [address] [place] [address] Day Care Teacher: Duran Marcus MD Nucleated RBC (Bld) [#/Vol] 0 /100WBC Normal [facility] Comment on above: Performed By: #### 1 43934, 349969, 801162, 240175, 446856, 9486605 #### [facility] [address] [place] [address] Day Care Teacher: Duran Marcus MD Platelet mean volume (Bld) [Entitic vol] 7.4 fL Normal 7.4-10.4 [facility] Comment on above: Performed By: #### 1 90779, 406873, 534860, 244260, 506757, 5211168 #### [facility] [address] [place] [address] Day Care Teacher: Duran Marcus MD Platelets (Bld) [#/Vol] 254 x1000 Normal 150-450 [facility] Comment on above: Performed By: #### 1 10540, 268668, 364399, 412348, 651151, 0484873 #### [facility] [address] [place] [address] Day Care Teacher: Duran Marcus MD RBC (Bld) [#/Vol] 4.12 x10 Low 4.70-6.[address] [facility] Comment on above: Result Comment: Note : RBC morphology is normal unless otherwise stated. Evaluation performed only if differential is requested. Performed By: #### 1 88496, 682742, 245834, 146192, 372492, 4017444 #### [facility] [address] [place] [address] Day Care Teacher: Duran Marcus MD WBC (Bld) [#/Vol] 10.2 x10 Normal 4.5-11.[address] [facility] Comment on above: Performed By: #### 1 30152, 912926, 082797, 923922, 432410, 1748408 #### [facility] [address] [place] [address] Day Care Teacher: Duran Marcus MD WBC (Bld) [#/Vol] 10.2 10*3/uL [facility] Comment on above: Performed By: #### 1 75527, 047521, 445818, 976835, 199555, 2764117 #### [facility] [address] [place] [address] Day Care Teacher: Duran Marcus MD PT INRon 11-30-2018 INR Coag (PPP) [Relative time] 1.0 {INR} Normal [facility] Comment on above: Result Comment: Norm al reference range for INR on patients not on anticoagulant therapy: 0.9-1.1. General therapeutic range for patients on anticoagulant therapy: 2.0-3.5. Performed By: #### 1 86164, 572254, 114162, 128843, 165200, 5700653 #### [facility] [address] [place] [address] Day Care Teacher: Duran Marcus MD Protime Patient 11.4 seconds Normal 9.7-12.[address] [facility] Comment on above: Performed By: #### 1 72236, 343078, 521748, 322085, 440359, 0394584 #### [facility] [address] [place], [place] [address] Day Care Teacher: Duran Marcus MD TROPONINon 11-30-2018 Troponin I.cardiac [Mass/Vol] ng/mL Normal 0.000-0.09 9 [facility] Comment on above: Result Comment: This test is a quantitative determination of cardiac troponin I. High levels of serum biotin may interfere with this test. Performed By: #### 1 91819, 995579, 884569, 650999, 412324, 2692559 #### [facility] [address] [place] [address] Day Care Teacher: Duran Marcus MD XR CHEST PORTABLEon 12-01-19 19 XR CHEST PORTABLE PROCEDURE: XR CHEST PORTABLE TECHNIQUE: Chest radiograph single view. HISTORY: CHEST PAIN COMPARISONS: 10/11/2016 . FINDINGS: Heart: Normal. Mediastinum/Vessels: Normal. Lungs/Pleural space: Normal. Bony thorax: No acute osseous abnormality. Life support devices: None. IMPRESSION: No acute cardiopulmonary abnormality. This document is electronically signed by Jey Newsome MD., November 30 2018 06:50:15 PM ET Technologist: MD CORAZON Dictated By: JEY NEWSOME MD Signed By: JEY NEWSOME MD Signed Out: 11/30/18 18:49:50 Normal [facility] CASE MANAGEMon 06-09-2018 CASE MANAGEM HNO ID: [id number] thor: Isabelle (Rn) Rosa M RNService: (none)Author Type: Registered NurseType: Care Mgt Progress NoteFiled: 06/09/2018 2:35 PMNote Text:CARE MANAGEMENT DISCHARGE NOTESERVICE DATE: 06/09/2018SERVICE TIME: 2:30pm LOS: 1 dayAdmission Date: 06/07/2018DISCHARGE ARRANGEMENT (list agency and phone number)[facility] facility: Was an expedited discharge program used? NoProvider: Claudia QHFUSSREF ASSESSMENT:Caregiver is ready, willing and able to meet the patient's needs asrecommended by the inter-professional team? YesPatient's transition needs and plan for meeting these needs: transfer toSNFDoes the patient have an acute stroke diagnosis, or has the patient had astroke during this admission? NoHANDOFF COMMUNICATION:summary of care, discharge instructions, nurse to nurse reportTRANSPORTATION ARRANGEMENTS:Mode of Transportation: AmbuletteTransportation Agency and Phone #: Cristobal Delgado [phone] .Date of Trip: 06/09/2018Type of Service: WheelchairIs Patient Medicaid Pending: NoDiscussion of financial coverage occurred with Patient .Lubrication Supervisor Location: 06/09/2018Destination: [facility] Care Management Responsibility: NoneEstimated Charge: NAApproving Farm Mechanic Apprentice: NAADDITIONAL CONTACT RESOURCES:Pt. will be discharged today. DC instructions faxed to [facility] prepared for transfer. Pt. is aware that transport time will beat 6pm by wheelchair.SIGNATURE: Isabelle Mederos RN PATIENT NAME: Natalie NietoiDATE: June 09, 2018 : 2:31 PM PAGER/CONTACT #: Isabelle Mederos [phone] [facility] Protein mass conc HNO ID: [id number] thor: Isabelle ClearyRn) Kathy Mederosice: (none)Author Type: Registered NurseType: Care Mgt Progress NoteFiled: 06/09/2018 12:00 PMNote Text:CARE MANAGEMENT PROGRESS NOTESERVICE DATE: 06/09/2018SERVICE TIME: 12noon LOS: 1 dayPrecert pending for transfer to [facility].SIGNATURE: Isabelle Mederos RN PATIENT NAME: Natalie NietoiDATE: June 09, 2018 : 12:00 PM PAGER/CONTACT #: Isabelle Mederos [phone] [facility] CONSULT PROGon 06-09-2018 Protein mass conc HNO ID: [id number] thor: Lisbet Lockwood) DonnieService: General SurgeryAuthor Type: Nurse PractitionerType: Consult Progress NoteFiled: 06/09/2018 2:10 PMNote Text:General surgery quick consult noteDr David consulted for bariatric surgery evaluation.Met with patient at bedside. States he is motivated to lose weight. 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 He hastried to lose weight in the last year and as a result of dietarymodifications, he has lost 50-60lbs.Discussed bariatric surgery program with patient.Gave him my card with number for bariatric surgery navigator. Instructedhim to call navigator to initiate process for bariatric surgery referraland answered questions.General surgery to sign off. Thank you for your consult. Will discuss withDr Hernandez.Lisbet Fields, MSN, [facility] HospitalPhone: [phone]/192:10 PM [facility] NURSING PROGon 06-09-2018 Protein mass conc HNO ID: [id number] thor: Maribell ClearyRn) ARBEN Aparicioervice: (none)Author Type: Registered NurseType: Nursing Progress NoteFiled: 06/09/2018 6:20 PMNote Text: Nursing Progress NotePatient Name: Natalie NietoiMRN: [id number] Location: [address] Daily Note:Patient discharged to [facility], transported by Kris in stable condition. All personal belongings sent. Report calledto Jesi at facility.This note was completed by: Maribell Aparicio RN [facility] PROGRESSon 06-09-2018 Protein mass conc HNO ID: [id number] thor: Jt Pearsone: General Internal MedicineAuthor Type: PhysicianType: Progress NotesFiled: 06/09/2018 8:01 AMNote Text:PROGRESS NOTE - INTERNAL MEDICINEPATIENT NAME: Natalie Del ValleRN: [id number] DATE: 06/09/2018SERVICE TIME: 7:55 AMADMITTING PHYSICIAN: Jt ClearyINTERLIZA HISTORY OF PRESENT ILLNESS: NO NEW CO.PHYSICAL EXAM:Patient Vitals for the past 24 hrs: BP Temp Temp src Pulse Resp SpO2 Rkiegj14/08/19 0721 125/57 36.5 ?C (97.7 ?F) Oral 62 18 97 % -06/09/18 0600 - - - - - - (!) 141.1 kg (311 lb)06/08/18 2300 122/63 36.6 ?C (97.8 ?F) Oral 68 18 - -06/08/18 1500 120/54 36.2 ?C (97.2 ?F) Oral 78 18 97 % -Body mass index is 51.75 kg/m?.GENERAL: Alert, no distress, cooperative, Morbidly ObeseSKIN: Skin color, texture, turgor normal. No rashes or lesions.OROPHARYNX: negativeNECK: no jugulovenous distention, no carotid bruits, carotid pulse normalcontour, supple, no thyromegalyLUNGS: Lungs clear to auscultation. Good diaphragmatic excursion.CARDIAC: Normal S1 and S2; no rubs, murmurs, or gallopsABDOMEN: Abdomen soft, non-tender. BS normal. No masses or organomegaly.EXTREMETIES: Extremities normal. No deformities, edema, clubbing or skindiscoloration., No ulcersNEURO: Alert, oriented X 3, Cranial nerves II-XII intact, NON FOCAL.PULSES: 2+ radial, 2+ carotidDATA:Diagnostic tests reviewed for today's visit:Most recent studies.PROBLEM LIST:ACTIVE PROBLEM LISTCad (Coronary Artery Disease)Back PainHtn (Hypertension)ObesityHypothy roidChronic PainOpiate Dependence, Continuous (Hcc)Factitious DisorderMixed HyperlipidemiaParesthesia of Left Arm and LegFracture, Colles, Right, ClosedObesity, Class III, BMI >= 40 (morbid obesity) E66.01Left Arm NumbnessSciaticaASSESSMENT AND PLAN: MORBID OBESITY/R SCIATICA/DIFFICULTY WALKING/DDD LSSPINE.PT RECOMMENDED REHAB IN SNF.WILL DC PER PT CHOICE.SIGNATURE: CLYDE TaborATE: June 09, 2018TIME: 7:55 AM [facility] CASE MANAGEMon 06-08-2018 Protein mass conc HNO ID: [id number] thor: ARBEN Campbell Rnervice: (none)Author Type: Registered NurseType: Alcon Mgt Progress NoteFiled: 06/08/2018 2:58 PMNote Text:CARE MANAGEMENT PROGRESS NOTESERVICE DATE: 06/08/2018SERVICE TIME: 2:45pm LOS: 1 dayObservation letter given to pt. on 06/08/18Informed pt. that [facility] can accept and they will start precertSIGNATURE: Isabelle Mederos RN PATIENT NAME: Natalie Tate: June 08, 2018 : 2:53 PM PAGER/CONTACT #: Isabelle Mederos [phone] [facility] Protein mass conc HNO ID: [id number] thor: Kathy Campbell Rnice: (none)Author Type: Registered NurseType: Alcon Mgt Progress NoteFiled: 06/08/2018 10:10 AMNote Text:CARE MANAGEMENT PROGRESS NOTESERVICE DATE: 06/08/2018SERVICE TIME: 10:00am LOS: 1 dayUnable to complete assessment, PT working with pt.SIGNATURE: Isabelle Mederos RN PATIENT NAME: Natalie Tate: June 08, 2018 : 10:09 AM PAGER/CONTACT #: Isabelle Mederos, [phone] [facility] CASE MGT INIT Eugenia 2018 CASE MGT INIT MIKAELA HNO ID: [id number] thor: Isabelle (Rn) Rosa M, RNService: (none)Author Type: Registered NurseType: Care Mgt Initial AssessmentFiled: 06/08/2018 1:24 PMNote Text:CARE MANAGEMENT: ASSESSMENT AND DISCHARGE PLANSERVICE DATE: 06/08/2018SERVICE TIME: 10:00amPRIQUAIL RUN [facility] PHYSICIAN:JACKIE Johnstonhone: [phone] STATUS: ObservationMEDICAL:Patient/R epresentative Stated Goals:To improve my functional statusHealth Insurance: [facility] MEDICAIDCaresourceHeal Issues Impacting Discharge Plan: Chronic morbid obesity, sciatica,CVA, PE, DVT, CAD, [place], depressionLast Admission Date: Previous admit date: 11/24/2013Is this Within the Past 30 days? No and Last admit 04/22/18Advance Directive:Current Advance Directive: NoneCare Farm Mechanic Apprentice Attempted to Assist with AD Completion: YesAction: Education Provided;Patient UnwillingHealth Literacy:1. How often do you need to have someone help you when you readinstructions, pamphlets, or other written material from your doctor orpharmacy? Never - 12. How confident are you filling out medical forms by yourself? Extremely- 1If Patient scores > 3 on either question, the following interventions wereput into place:Patient did not score > 3FUNCTIONAL AND COGNITIVE/BEHAVIORALPRIOR TO ADMISSION:Baseline Mental Status: Alert AND Oriented, Person, Place , Time andSituationFunctional Status: IndependentDoes Patient Currently Receive Any Community Services or Home Care? NoneEquipment Prior to Admission: Cane - StraightTub bench/chairHas the Patient Been in a Residential Facility in the Past 30 days?was [facility] approximately 4 weeks agoSOCIAL:Living Arrangement: HomeLives With: AloneFinancial Resources: RetiredPrimary Contact: Extended Emergency Contact InformationPrimary Emergency Contact: Xena Gerber Tgqckpqj: SpouseSupportive: is a resident at [facility] Important Patient Contacts: NoneCaregiver Assessment:Caregiver is ready, willing and able to meet the patient's needs asrecommended by the inter-professional team? TBDPatient's transition needs and plan for meeting these needs: TBDDoes the patient have an acute stroke diagnosis, or has the patient had astroke during this admission? NoMedication Adherence:I am convinced of the importance of my prescription medication: Agreecompletely - 0I worry that my prescription medication will do more harm than good to meDisagree completely - 0I feel financially burdened by my [id number] expenses for myprescription medication: Disagree completely - 0Patient is categorized as low risk < 2Are you interested in bedside delivery of your medications? YesFood Concerns:In the Last Month, Have You had Trouble Getting Food? No trouble gettingfoodDuring the Last Month, Have You Worried Whether Your Food Would Run OutBefore You Had Enough Money to Buy More? NoIs the Patient Psychosocially Complex? NoASSESSMENT AND PLAN:Medical Needs: 2 or more chronic diseasesPsychosocial Needs: NoneFREEDOM OF CHOICE EXPLAINED:Yes pt.POTENTIAL TRANSITION PLANSSkilled Nursing Facility/Intermediate Care FacilityMet with pt. at bedside. Pt. lives alone, was driving and had beenfairly independent. Has limited supports, is a resident at .Pt. recently discharged from , no home care set up on discharge. Pt.is agreeable to SNF placement. He states [facility] can not accept leonarddue to his insurance. List provided to pt. [facility] and [facility]. Referrals sent. HARVEY denis.SIGNATURE: Isabelle Mederos RN PATIENT NAME: Natalie Botello SucciDATE: June 08, 2018 : 1:18 PM PAGER/CONTACT #: Isabelle Mederos [phone] [facility] CONSULTon 06-08-2018 CONSULT HNO ID: [id number] thor: Gerry Morgan (Pa)ervice: Pain ManagementAuthor Type: Physician AssistantType: ConsultsFiled: 06/08/2018 5:30 PMNote Text:INPATIENT chronic PAIN MGMT consultPatient Name: Natalie Del ValleRN: [id number] DATE: June 08, 2018SERVICE TIME: 5:00 PMPRIMARY SERVICE: Dr. ClearyConrl by Dr. Cleary for intractable back painINTERVAL HPI: Is the patient having any pain? Yes LOCATION: lumbarPAIN SCALE: 5 on a scale of 0-10PAIN CHARACTER: achingFREQUENCY: (How often does the pain occur?) occurs [id number] WM morbid obese cc low back pain radiating down back of left to leftknee for last 3 daysAdmitted for inability to walkPERTINENT ROS:denies fever, chills, diarrhea, constipation, nausea, vomiting, CP, SOB,weakness, numbness, tingling or loss of bladder bowel controlDenies muscle tightnessAll other reviewed and negative other than HPI.PAST MEDICAL HISTORYDiagnosis Date- Arthritis- Chronic lower back pain- Congestive heart failure (HCC)- Coronary artery disease- Depression- Dyslipidemia- Heart attack (HCC) 2005- Obesity- Unspecified essential hypertensionPAST SURGICAL HISTORYProcedure Laterality Date- BACK SURGERY HX- CARDIAC CATHETERIZATION HX- CHOLECYSTECTOMY HX- HERNIA REPAIR HX- JOINT REPLACEMENT HX hip- ORTHOPEDICS SURGERY HX total hip replacement- PAST SURGICAL HISTORY OF 2004 total hip replacement leftFAMILY HISTORYProblem Relation Age of Onset- Ischemic Heart Disease Mother- Ischemic Heart Disease SisterSocial History Marital status: Spouse name: Years of education: Number of children:Occupational HistoryOccupation Employer CommentnoneSocial History Main Topics Smoking status: Never Smoker Smokeless tobacco: Never Used Alcohol use: No Comment: Sober for 14 yrs Drug use: No Comment: recovered Sexual activity: Not CurrentlySocial History Narrative Lives at home alone Ambulates with caneMEDICATIONS:Current hospital medications:carvedilol 12.5 mg tab(s) (COREG) 12.5 mg ORAL BID w MEALScyclobenzaprine 10 mg tab(s) (FLEXERIL) 10 mg ORAL TID PRNmorphine 2 mg injection 2 mg INTRAVENOUS q 3 H PRNlidocaine 5 % 2 Patch (LIDODERM) 2 Patch TRANSDERMAL DAILYlidocaine patch - REMOVE OTHER AT BEDTIMElidocaine - VERIFY PATCH OTHER q 8 Hatorvastatin 40 mg tab(s) (LIPITOR) 40 mg ORAL DAILYlisinopril 10 mg tab(s) (ZESTRIL, PRINIVIL) 10 mg ORAL DAILYQUEtiapine 100 mg tab(s) (SEROquel) 100 mg ORAL AT BEDTIMEdocusate sodium 100 mg cap(s) (COLACE) 100 mg ORAL DAILY PRNsenna-docusate 8.6-50 mg 1 tablet (SENNA-S) 1 tablet ORAL DAILY PRNfurosemide 20 mg tab(s) (LASIX) 20 mg ORAL DAILYnabumetone 500 mg tab(s) (RELAFEN) 500 mg ORAL DAILY WITH BREAKFASTmelatonin tab(s) 5 mg 5 mg ORAL AT BEDTIMEaspirin 81 mg chewable tab(s) 81 mg ORAL DAILYclopidogrel 75 mg tab(s) (PLAVIX) [address] 40 mg tab(s) (PROTONIX) 40 mg ORAL DAILY (6 AM)citalopram 20 mg tab(s) (CeleXA) 20 mg ORAL DAILYlevothyroxine 50 mcg tab(s) (SYNTHROID) 50 mcg ORAL DAILY (6 AM)cholecalciferol 2,000 Units tab(s) (VITAMIN D3) 2,000 Units ORAL DAILYNaCl 0.9% 3-5 mL 3-5 mL INTRAVENOUS q 12 Hondansetron 4 mg tab(s) (ZOFRAN) 4 mg ORAL q 6 H PRNondansetron (PF) 4 mg injection (ZOFRAN) 4 mg INTRAVENOUS q 6 H PRNdextroamphetamine-ampheta mine 20 mg tab(s) (ADDERALL) 20 mg ORAL DAILYtraMADol 100 mg tab(s) (ULTRAM) 100 mg ORAL q 6 H PRNPHYSICAL EXAM:Blood pressure 120/54, pulse 78, temperature 36.2 ?C (97.2 ?F),temperature source Oral, resp. rate 18, height 165.1 cm (5' 5"), weight(!) 141.6 kg (312 lb 2.7 oz), SpO2 97 %.There is no height or weight on file to calculate BMI.GENERAL: Morbidly Obese, Alert, Mild Distress, CooperativeSKIN: Skin color, texture, turgor normal. No rashes or lesions.HEAD/SINUSES: No significant findingsEYES: PERRLA, EOMIHeart: RRR without murmur, gallop, or rubs. No ectopyLungs: lungs clear to auscultation no wheezing or rhonchiAbdomen: Abdomen soft, non-tender. Bowel sounds normal. No masses,organomegalyEXTREMITI ES: Extremities normal, no deformities, edema, clubbing or skindiscoloration.NEURO: Motor intact with RLE >LLE and Sensory intact bilateralBack Pos lumbar tendernessSLR pos LeftDATA:Diagnostic tests reviewed for today's visit:Most recent labsGlucose (mg/dL)Date Value06/07/2018 133 Potassium (mmol/L)Date Value06/07/2018 4.6 Sodium (mmol/L)Date Value06/07/2018 141 Chloride (mmol/L)Date Value06/07/2018 99 CO2 (mmol/L)Date Value06/07/2018 24 Creatinine (mg/dL)Date Value06/07/2018 0.74 BUN (mg/dL)Date Value06/07/2018 18 Anion Gap (mmol/L)Date Value06/07/2018 18 Calcium (mg/dL)Date Value06/07/2018 9.4 WBC (k/uL)Date Value06/07/2018 9.72RBC (m/uL)Date Value06/07/2018 4.29Hemoglobin (g/dL)Date Value06/07/2018 12.1 (L)Hematocrit (%)Date Value06/07/2018 37.9 (L)MCV (fL)Date Value06/07/2018 88.3MCH (pG)Date Value06/07/2018 28.2MCHC (g/dL)Date Value06/07/2018 31.9RDW-CV (%)Date Value06/07/2018 14.4Platelet Count (k/uL)Date Value06/07/2018 326MPV (fL)Date Value06/07/2018 9.8ASSESSMENT AND PLAN:58 year old WM cc low back pain with radiation down back of left with legto the left knee for last 2 daysAdmitted yesterday due to inability to walkMRI lumbar spineShows disc fragment on left at L4-5 and bilateral foraminal stenosis atL4-5 and L5-S1And spondylolisthesisCurrently on tramadol 100mg q 6hrs, Relafen 500mg in am, iv morphine forbtp, lidoderm patch and flexeril 10mg tid prnPos blood thinner PlavixHistory of lumbar fusion laminectomy 2011ImpressionLumbar radiculopathyLumbar foraminal stenosisLumbar post laminectomy syndromeHistory of lumbar fusionMorbid obesityPlanContinue with PT and OTPatient is neurologically intactContinue tramadol, lidoderm patch, iv morphine for btp onlyWill change flexeril to 5mg tid prn for muscles spasmsWill add neurontin 300mg i tab po tidIncrease Relafen to 500mg bidWill followIf pain worsens will consider spine consultSIGNATURE: KASIA CalixCDATE: June 08, 2018TIME: 5:00 PM [facility] PROGRESSon 06-08-2018 Protein mass conc HNO ID: [id number] Author: Lisbet Fields Service: General Internal Medicine Author Type: Nurse Practitioner Type: Progress Notes Filed: 06/10/2018 5:15 PM Note Text: [facility] Protein mass conc HNO ID: [id number] thor: Jt ClearySermarue: General Internal MedicineAuthor Type: PhysicianType: Progress NotesFiled: 06/08/2018 7:27 AMNote Text:PROGRESS NOTE - INTERNAL MEDICINEPATIENT NAME: Natalie Del ValleRN: [id number] DATE: 06/08/2018SERVICE TIME: 7:26 AMADMITTING PHYSICIAN: Jt ClearyINTERLIZA HISTORY OF PRESENT ILLNESS: CANNOT WALK.LBP.PHYSICAL EXAM:Patient Vitals for the past 24 hrs: BP Temp Temp src Pulse Resp SpO2 Height Fdaqmj37/07/19 0600 - - - - - - - (!) 141.6 kg (312 lb 2.7 oz)06/08/18 0300 148/81 36.3 ?C (97.4 ?F) Oral 82 18 96 % - -06/07/18 2300 132/66 36.8 ?C (98.3 ?F) Oral 106 18 94 % - -06/07/18 1501 120/67 36.8 ?C (98.2 ?F) Oral 90 18 98 % 165.1 cm (5' 5")(!) 141.1 kg (311 lb)06/07/18 1500 148/76 - - (!) 91 17 98 % - -06/07/18 1146 150/74 36.8 ?C (98.2 ?F) Oral (!) 100 20 97 % 165.1 cm (5'5") (!) 141.1 kg (311 lb)Body mass index is 51.95 kg/m?.GENERAL: Alert, no distress, cooperative, Morbidly ObeseSKIN: Skin color, texture, turgor normal. No rashes or lesions.OROPHARYNX: negativeNECK: no jugulovenous distention, no carotid bruits, carotid pulse normalcontour, supple, no thyromegalyLUNGS: Lungs clear to auscultation. Good diaphragmatic excursion.CARDIAC: Normal S1 and S2; no rubs, murmurs, or gallopsABDOMEN: Abdomen soft, non-tender. BS normal. No masses or organomegaly.EXTREMETIES: Extremities normal. No deformities, edema, clubbing or skindiscoloration., No ulcersNEURO: Alert, oriented X 3, Cranial nerves II-XII intact, NON FOCALPULSES: 2+ radial, 2+ carotidDATA:Diagnostic tests reviewed for today's visit:Most recent studies.PROBLEM LIST:ACTIVE PROBLEM LISTCad (Coronary Artery Disease)Back PainHtn (Hypertension)ObesityHypothy roidChronic PainOpiate Dependence, Continuous (Hcc)Factitious DisorderMixed HyperlipidemiaParesthesia of Left Arm and LegFracture, Colles, Right, ClosedObesity, Class III, BMI >= 40 (morbid obesity) E66.01Left Arm NumbnessSciaticaASSESSMENT AND PLAN: MORBID OBESITY/HTN/DIFFICULTY WALKING.PT.PAINCONTROL.INCRE ASE BB.SIGNATURE: Jt Cleary MDDATE: Bibi 7, 2019TIME: 7:26 AM Normal [facility] THERAPY NTon 06-08-2018 THERAPY NT HNO ID: [id number] thor: Maryana (Pt) Emersone: Physical TherapyAuthor Type: Physical TherapistType: Therapy (PT/OT/Speech/Resp)Filed: 06/08/2018 10:36 AMNote Text:Physical Therapy EvaluationSERVICE DATE: 06/08/2018SERVICE TIME: 1000 to 1020ROOM: [id number] Discharge Disposition: Subacute/SNFJustification For Post Acute Needs: Anticipate that patient will requiredaily (5x/wk) skilled therapy in a post-acute facility setting at the timeof acute hospital discharge;May not tolerate higher intensityprograming;Living the community premorbidly;Anticipated communitydischargeAnticipate d Discharge Needs: UndeterminedRecommended Discharge Equipment: To Be DeterminedPT Recommendations to Nursing: To bathroom;Transfer to/from chair;OOB forMeals;With assist of 1 personDevice: Wheeled WalkerPT 6 Clicks Score: 19Precautions/Activity Restrictions: Fall RiskASSESSMENT :Patient presents with pain which originates in his low back and radiatesdown the back of his leg to his foot. As a result, he is unable to bearweight on his L LE for ambulation or stair negotiation. Patient has ahistory of back sx and chronic LBP and reports he has seen pain managementin the past. He was recently in a SNF for a similar issue and wasdischarged home independent. Patient reports he has never had anyoutpatient PT for his back pain. At present, patient will require skilledPT in a SNF as he is unable to function given the pain he is experiencing. However, if pain is better controlled (pain management consult placed) Naersh not anticipate the need for skilled care. Will continue to follow andupdate recommendations as appropriate.Patient Disposition at Start of Session: Supine in Bed;Call St in ReachPatient Disposition at End of Session: Supine in Bed;Call St in ReachTolerance Limited By PainPhysical Therapy Problem List: Pain;Safety Deficits;Decreased ActivityTolerance;Decreased Strength;Functional Mobility ImpairmentPatient /Caregiver Goals: Go To RehabGoals for Plan of Care:Transfer sit to/from stand with: Modified IndependentAmbulate with: Modified IndependentDistance: 150'Device: Wheeled WalkerAmbulate up and down steps with: Minimal AssistanceNumber of steps: 7Device: Rail;CaneRehab Potential: FairPLAN:Treatment Frequency (times per week): 3 Current admissionTreatment Interventions: Education;Functional MobilityTraining;Strengtheni ngPlan of Care developed with: PatientTREATMENT INTERVENTIONS:Therapy Diagnosis: Ataxic gaitInterventions Provided: Evaluation$ Evaluation-Moderate (69432) Billed Units: 1 unitTotal Treatment Time (minutes): [...] L SEAMUS, AVN of R hip, CHF, CAD,[place], obesity, HTN, back sxPatient Report: "I had one back surgery and I don't want another. Thefirst one didn't work."Home EnvironmentPatient Lives With: Self/AloneAssistance Available: NoneEntry To Home: Stairs;With RailNumber Of Stairs Into Home: 7Number Of Stairs To Bed/Bath: FlightStairs to Bed/Bath with: Unilateral RailTub/Shower Type: Tub showerLaundry: Goes to [facility]Kess[facility] Owned: Cane;Sock Aide;Shower ChairPrior Functional Level: Within [...] documentation flowsheet forcomplete details for this therapy evaluation/treatment.SIGNATU RE: Maryana Wooten PT PATIENT NAME: Natalie NietoiDATE: June 08, 2018 : 10:31 AM Normal [facility] CBC and Differentialon 06-07 Abs Baso <0.03 Normal <0.11 [facility] Comment on above: Performed By: #### C BCDIF, CMP, MG1 ####[place] [id number] Abs Lamb 0.18 k/uL Normal <0.87 [facility] Comment on above: Performed By: #### C BCDIF, CMP, MG1 ####[place] [id number] Abs Neut 8.80 k/uL High 1.45-7.50 [facility] Comment on above: Performed By: #### C BCDIF, CMP, MG1 ####[place] [id number] Basophils/100 WBC Auto (Bld) 0.1 % [facility] Comment on above: Performed By: #### C BCDIF, CMP, MG1 ####[place] [id number] Eosinophils Auto #/vol (Bld) 10*3/uL Normal <0.46 [facility] Comment on above: Performed By: #### C BCDIF, CMP, MG1 ####[place] [id number] Eosinophils/100 WBC Auto (Bld) 0.0 % [facility] Comment on above: Performed By: #### C BCDIF, CMP, MG1 ####[place] [id number] Erythrocyte distribution width Auto Ratio (RBC) 14.4 % Normal 11.5-15.0 [facility] Comment on above: Performed By: #### C BCDIF, CMP, MG1 ####[place] [id number] Hematocrit Auto Volume Fraction (Bld) 37.9 % Low 39.0-51.0 [facility] Comment on above: Performed By: #### C BCDIF, CMP, MG1 ####[place] [id number] Hemoglobin mass conc (Bld) 12.1 g/dL Low 13.0-17.0 [facility] Comment on above: Performed By: #### C BCDIF, CMP, MG1 ####[place] [id number] Lymphocytes Auto #/vol (Bld) 0.73 10*3/uL Low 1.00-4.00 [facility] Comment on above: Performed By: #### C BCDIF, CMP, MG1 ####[place] [id number] Lymphocytes/100 WBC Auto (Bld) 7.5 % Normal [facility] Comment on above: Performed By: #### C BCDIF, CMP, MG1 ####[place] [id number] MCH Auto Entitic mass (RBC) 28.2 pG Normal 26.0-34.0 [facility] Comment on above: Performed By: #### C BCDIF, CMP, MG1 ####[place] [id number] MCHC Auto mass conc (RBC) 31.9 g/dL Normal 30.5-36.0 [facility] Comment on above: Performed By: #### C BCDIF, CMP, MG1 ####[place] [id number] MCV Auto Entitic volume (RBC) 88.3 fL Normal 80.0-100.0 [facility] Comment on above: Performed By: #### C BCDIF, CMP, MG1 ####[place] [id number] Monocytes/100 WBC Auto (Bld) 1.9 % Normal [facility] Comment on above: Performed By: #### C BCDIF, CMP, MG1 ####[place] [id number] Neutrophils/100 WBC Auto (Bld) 90.5 % Normal [facility] Comment on above: Performed By: #### C BCDIF, CMP, MG1 ####[place] [id number] NRBCs 0.0 /100 WBC Normal 0 [facility] Comment on above: Performed By: #### C BCDIF, CMP, MG1 ####[place] [id number] Platelet mean volume Auto Entitic volume (Bld) 9.8 fL Normal 9.0-12.7 [facility] Comment on above: Performed By: #### C BCDIF, CMP, MG1 ####[place] [id number] Platelets Auto #/vol (Bld) 326 10*3/uL Normal 150-400 [facility] Comment on above: Performed By: #### C BCDIF, CMP, MG1 ####[place] [id number] RBC Auto #/vol (Bld) 4.29 10*6/uL Normal 4.20-6.00 [facility] Comment on above: Performed By: #### C BCDIF, CMP, MG1 ####[place] [id number] WBC Auto #/vol (Bld) 9.72 10*3/uL Normal 3.70-11.00 [facility] Comment on above: Performed By: #### C BCDIF, CMP, MG1 ####[place] [address] Comp Metabolic Panelon 06-07 Albumin mass conc 4.2 g/dL Normal 3.9-4.9 [facility] Comment on above: Performed By: #### C BCDIF, CMP, MG1 ####[place] [address] ALP enzyme act/vol 177 U/L High 38-113 [facility] Comment on above: Performed By: #### C BCDIF, CMP, MG1 ####[place] [id number] ALT enzyme act/vol 9 U/L Low 10-54 [facility] Comment on above: Performed By: #### C BCDIF, CMP, MG1 ####[place] [id number] Anion gap 3 molar conc 18 mmol/L Normal 9-18 [facility] Comment on above: Performed By: #### C BCDIF, CMP, MG1 ####[address] AST enzyme act/vol 18 U/L Normal 14-40 [facility] Comment on above: Performed By: #### C BCDIF, CMP, MG1 ####[address] Bilirubin mass conc 0.5 mg/dL Normal 0.2-1.3 [facility] Comment on above: Performed By: #### C BCDIF, CMP, MG1 ####[address] Calcium mass conc 9.4 mg/dL Normal 8.5-10.2 [facility] Comment on above: Performed By: #### C BCDIF, CMP, MG1 ####[address] Chloride molar conc 99 mmol/L Normal 97-105 [facility] Comment on above: Performed By: #### C BCDIF, CMP, MG1 ####[place] [address] CO2 molar conc 24 mmol/L Normal 22-30 [facility] Comment on above: Performed By: #### C BCDIF, CMP, MG1 ####[address] Creatinine mass conc 0.74 mg/dL Normal 0.73-1.22 [facility] Comment on above: Performed By: #### C BCDIF, CMP, MG1 ####[address] eGFR- Amer. >60 Normal >60 [facility] Comment on above: Performed By: #### C BCDIF, JUANJOSE, MG1 ####[address] GFR/1.73 sq M predicted among non-blacks MDRD vol rate/area (S/P/Bld) mL/min/{1.73_m2} Normal >60 [facility] Comment on above: Result Comment: [...] reflect actual GFR. Performed By: #### C BCDIF, CMP, MG1 ####[place] [address] Glucose mass conc 133 mg/dL High 74-99 [facility] Comment on above: Performed By: #### C BCDIF, CMP, MG1 ####[address] Potassium molar conc 4.6 mmol/L Normal 3.7-5.1 [facility] Comment on above: Performed By: #### C BCDIF, CMP, MG1 ####[place] [address] [place] [id number] Protein mass conc 8.0 g/dL Normal 6.3-8.0 [facility] Comment on above: Performed By: #### C BCDIF, CMP, MG1 ####[place] [address] [place] [id number] Sodium molar conc 141 mmol/L Normal 136-144 [facility] Comment on above: Performed By: #### C BCDIF, CMP, MG1 ####[place] [address] [place] [id number] Urea nitrogen mass conc 18 mg/dL Normal 9-24 [facility] Comment on above: Performed By: #### C BCDIF, CMP, MG1 ####[place] [address] [place] [id number] ED NOTEon 06-07-2018 ED NOTE HNO ID: [id number] Author: Faith ClearyRn) GABO Rodriguez Service: (none) Author Type: Registered Nurse Type: ED Notes Filed: 06/07/2018 3:08 PM Note Text: Report called to 4D rn all questions answered., pt to be sent upstairs with medics and belongings. [facility] ED NOTE HNO ID: [id number] Author: Faith ClearyRn) Michael RN Service: (none) Author Type: Registered Nurse Type: ED Notes Filed: 06/07/2018 2:59 PM Note Text: Labs were drawn and sent. [facility] ED NOTE HNO ID: [id number] Author: Faith ClearyRn) GABO Rodriguez Service: (none) Author Type: Registered Nurse Type: ED Notes Filed: 06/07/2018 2:59 PM Note Text: Pt refused walker [facility] ED NOTE HNO ID: [id number] thor: Cecily ClearyRn) ARBEN Edmondervice: (none)Author Type: Registered NurseType: ED NotesFiled: 06/07/2018 2:01 PMNote Text:Patient attempted to ambulate with walker. Patient able to stand butstates that he cannot take any steps. Patient states "I don't want thepain to come back". PA notified. [facility] ED NOTE HNO ID: [id number] thor: Anastasiia (Rn) Kathy Johnsonice: Emergency MedicineAuthor Type: Registered NurseType: ED NotesFiled: 06/07/2018 1:17 PMNote Text: Pt educated on medication and medicated per MAR. No complaints at thistime. No distress noted, safety maintained. Will continue to monitor. [facility] ED NOTE HNO ID: [id number] thor: Anastasiia (Gabo) ARBEN Johnsonervice: Emergency MedicineAuthor Type: Registered NurseType: ED NotesFiled: 06/07/2018 12:09 PMNote Text:Pt arrived via EMS after falling at [facility] and hurting his back. Stateshis leg gave out and now he has shooting pain down his leg. Reportsfalling on his side and then hitting his head after falling. Deniesheadache and head pain just reporting severe back pain. [facility] ED PROV NOTEon 06-07-2018 Protein mass conc HNO ID: [id number] thor: Maurilio Ramirezrvice: Emergency MedicineAuthor Type: PhysicianType: ED Provider NotesFiled: 06/08/2018 1:54 PMNote Text:ED Provider NotePatient Name: Natalie Del ValleRN: [id number] DATE: 06/07/18HistoryPatient presents with:Back [id number]-[id number] white male that presents to the emergency room via [facility] for sciatic pain. The patient states that he has chronic left sciaticpain and that he was at [facility] today and his left leg Giving out [...] above.History provided by: Patient and EMS personnelLanguage cream dipper used: NoPAST MEDICAL HISTORYDiagnosis Date- Arthritis- Chronic [...] admitme, so I can go to the detention for rehab."Clinical Impressions as of Jun 07 [...] is stable and improved.SIGNATURE: Dru Oneal (Tori) Nywpflb96/06/19 1621Attending NoteI have personally performed a face to face assessment of the patient andhave reviewed the PA/BOAT HAND note. My rubin findings include:History is 58-year-old [...] plans for PT evaluationand possible placement to snf facility in stable condition.Other additions or changes: NoneSignature: Oswaldo Rubio, DODate: 06/08/2018Time: 1:51 PMBenleland Rubio, DO06/08/18 1354 Normal [facility] HISTORY PHYSICALon 9 HISTORY PHYSICAL HNO ID: [id number] thor: Sandhya Lockwood) CrossService: Critical CareAuthor Type: Nurse PractitionerType: HANDPFiled: 06/07/2018 5:05 PMNote Text:HISTORY AND PHYSICAL EXAMINATION *SERVICE DATE: 06/07/2018SERVICE TIME: 4:17 PMPRIMARY CARE PHYSICIAN: Satya Boyce, DOSubjectiveCHI COMPLAINT: S/p fall with back painHPI: This [...] possible SNFplacement. Patient [facility] be [facility] under Dr. Cleary.PAST MEDICAL HISTORYDiagnosis Date- [...] 5 minutes as needed. Disp: Rfl: 07/18/2016 atUnknown timeALLERGIESAllergen Reactions- Fish Derived Hives- Nubain [Nalbuphine [...] Temp Temp src Pulse Resp SpO2 Height Ltfsnl91/06/19 1501 120/67 36.8 ?C (98.2 ?F) Oral [...] unable to walk with walkerPlan:- admit to F- lidoderm patch, tramadol, demerol for pain- consult to PT/OTHTN/ HLD/ hypothyroidism/ CHF/depression/ CAD- continue home medicationsMedication and Non-Pharmacologic VTE Prophylaxis/AnticoagulantsVT E Prophylaxis: VTE prophylaxis appropriateI personally spent 40 minutes directly supervising and providing Level 2Care exclusive of any other billable procedure.SIGNATURE: Sandhya Bashir APRN.[employer]ELOPER PATIENT NAME: Natalie NietoiDATE: June 07, 2018 : 4:16 PM PAGER: Normal [facility] HISTORY PHYSICAL HNO ID: [id number] thor: Jt Michelle: General Internal MedicineAuthor Type: PhysicianType: HANDPFiled: 06/07/2018 7:11 PMNote Text:[facility] - History and PhysicalSUNATALIE READ HDOB: 1960 AGE: 58 SEX: MMRN: [id number] CSN: [id number] [place] [facility] LOCATION: [address] [place] [address] PHYSICIAN: Jt Cleary M.D.ADMIT DATE: 06/07/2018CHIEF COMPLAINT: [...] SURGICAL HISTORY: Morbid obesity, CVA, PE, DVT,CAD, [place], hypertension, hyperlipidemia, sleep apnea, depression,multilevel disk disease [...] because heis open to the idea.Jt Cleary M.D.Family [facility] CenterKD:[id number]: 06/07/2018 17:52:51T: 06/07/2018 18:22:10Job #: [id number] Normal [facility] Magnesiumon 06-07-2018 Magnesium mass conc 2.2 mg/dL Normal 1.7-2.3 [facility] Comment on above: Performed By: #### C BCDIF, CMP, MG1 ####[facility] [phone] NURSING PROGon 06-07-2018 Protein mass conc HNO ID: [id number] thor: Tierra (Rn) ARBEN Gabrielervice: (none)Author Type: Registered NurseType: Nursing Progress NoteFiled: 06/07/2018 11:05 PMNote Text: Nursing Progress NotePatient Name: Natalie Del ValleRN: [id number] Location: [facility]/[id number]____ Daily Note:1923: Pt refused telemetry, stated he does not want a roommate." Pt. Refused SCD's.This note was completed by: Tierra Gabriel RN [facility] PROGRESSon 06-07-2018 Protein mass conc HNO ID: [id number] Author: Jt Cleary Service: General Internal Medicine Author Type: Physician Type: Progress Notes Filed: 06/07/2018 5:53 PM Note Text: [id number] [facility] SPINE LUMBAR WO CONTRASTon 0 06-07-2018 SPINE LUMBAR WO CONTRAST *FINAL Date of Service: 06/07/2018 02:09 Adm #: [id number] Reading Dr:SHANNAN HILL Signoff Dr: SHANNAN HILL PROCEDURE: SPINE LUMBAR WO CONTRAST - WCT 3015 REASON FOR EXAM: low back pain [...] No acute fracture. Preliminary interpretation provided by [employer]. This report has been produced using speech [...] Physician: SHANNAN HILL M.D. Original Transcribed by/Date: [facility] Jun 07 2018 8:10A Original Electronically Signed by/Date: SHANNAN HILL M.D. Jun 07 2018 8:10A Addendum Interpreting Physician: Addendum Transcribed by/Date: NO ADDENDUM Addendum Electronically Signed by/Date: [facility] Urinalysis with Microscopico n 06-07-2018 Bacteria Present Critically abnormal 0 [facility] Comment on above: Performed By: #### U AWMIC ####[place] [id number] Bilirubin, Urine Small Critically abnormal Negative [facility] Comment on above: Result Comment: Sugg est correlation with clinical findings and serum bilirubin if clinically indicated. Performed By: #### U AWMIC ####[place] 30849-363-2018 Cast SEE COMMENT Normal 0 [facility] Comment on above: Result Comment: 0 Performed By: #### U AWMIC ####[place] 308[address]-363-2018 Clarity Clear Normal Clear [facility] Comment on above: Performed By: #### U AWMIC ####[place] [address]-363-2018 Color Yellow Normal Yellow [facility] Comment on above: Performed By: #### U AWMIC ####[place] [id number] Glucose Ql (U) Negative Normal Negative [facility] Comment on above: Performed By: #### U AWMIC ####[place] [id number] Hemoglobin/Blood,Ur Negative Normal Negative [facility] Comment on above: Performed By: #### U AWMIC ####[place] [id number] INR Coag RelTime (Bld) 5-10 Critically abnormal 0-3 [facility] Comment on above: Performed By: #### U AWMIC ####[place] [id number] Ketones Ql (U) Trace Critically abnormal Negative [facility] Comment on above: Performed By: #### U AWMIC ####[place] [id number] Leukest Negative Normal Negative [facility] Comment on above: Performed By: #### U AWMIC ####[place] [id number] Mucus Many Normal [facility] Comment on above: Performed By: #### U AWMIC ####[place] [id number] Nitrites Negative Normal Negative [facility] Comment on above: Performed By: #### U AWMIC ####[place] [id number] pH 5.5 Normal 4.5-8.0 [facility] Comment on above: Performed By: #### U AWMIC ####[place] [id number] Protein, Urine Trace Critically abnormal Negative [facility] Comment on above: Performed By: #### U AWMIC ####[place] [id number] Specific [place], Ur >=1.030 Normal 1.005-1 .03 0 [facility] Comment on above: Performed By: #### U AWMIC ####[place] [id number] Urobilinogen 0.2 Normal 0.2-1.0 [facility] Comment on above: Performed By: #### U AWMIC ####[place] [id number] WBC 0-5 Normal 0-5 [facility] Comment on above: Performed By: #### U AWMIC ####[place] [id number] MRA HEAD WO CONTRASTon 05-18 MRA HEAD WO CONTRAST Patient 16DOB: 2Age: 58 yearsGender: MaleOrder Date: 05/16/2018 1:30 AMEXAM: MRA HEAD WO CONTRASTTECHNIQUE: MRA head without contrast. 211 images.INDICATION: Patient is a 58-year-old gentleman with history of CAD,hypertension, hyperlipidemia, STROKE COMPARISON: CTA head May 15, 2018FINDINGS: Superior cervical, petrous, cavernous, and supraclinoidsegments of internal carotid arteries are unremarkable. A1 and I7cgbmbhlc of anterior cerebral arteries and the anterior communicatingartery are unremarkable. M1 and M2 segments of middle cerebralarteries are unremarkable. Basilar artery, anterior inferior cerebellar arteries, superiorcerebellar arteries, and P1 and P2 segments of posterior cerebralarteries are unremarkable. No aneurysm, tight stenosis, or vascularmalformation.IMPRESS ION: 1. No aneurysm, tight stenosis, or vascular malformation.Interpreted by:KIKO Aponteigned by:Mireya Alex MD05/18/18inal result Normal [facility] MRI BRAIN WO CONTRASTon 12- MRI BRAIN WO CONTRAST Patient 816DOB: 2Age: 58 yearsGender: MaleOrder Date: 05/16/2018 1:30 AMEXAM: [...] right cerebellar hemisphere.Interpreted by:KIKO Aponteigned by:Mireya Alex MD05/18/inal result Normal [facility] Basic Metabolic Panelon 05-02 Anion gap 3 molar conc 15 mmol/L Normal - [place] [facility] Calcium mass conc 9.1 mg/dL Normal 8.6-10.2 [facility] Chloride molar conc 100 mmol/L Normal 98-107 [facility] CO2 molar conc 23 mmol/L Normal - [facility] Creatinine mass conc 0.7 mg/dL Normal 0.7-1.2 [facility] GFR/1.73 sq M predicted among blacks MDRD vol rate/area (S/P/Bld) mL/min/{1.73_m2} Normal [facility] GFR/1.73 sq M predicted among non-blacks MDRD vol rate/area (S/P/Bld) mL/min/{1.73_m2} Normal >=60 [facility] Comment on above: Result Comment: Field Operations Supervisor michelle Kidney Disease: less than 60 ml/min/1.73 sq.m. Kidney Failure: less than 15 ml/min/1.73 sq.m.Results valid for patients 18 years and older. Glucose mass conc 95 mg/dL Normal 74-99 [facility] Potassium molar conc 4.5 mmol/L Normal 3.5-5.0 [facility] Sodium molar conc 138 mmol/L Normal 132-146 [facility] Urea nitrogen mass conc 11 mg/dL Normal - [facility] Hgb A1Con 05-17-2018 Hemoglobin A1c/Hemoglobin.total mass fraction (Bld) 5.5 % Normal 4.0-5.6 [facility] Basic Metabolic Panelon 05-02 Anion gap 3 molar conc 12 mmol/L Normal - [facility] Calcium mass conc 9.0 mg/dL Normal 8.6-10.2 [facility] Chloride molar conc 101 mmol/L Normal 98-107 [facility] CO2 molar conc 24 mmol/L Normal 22- [facility] Creatinine mass conc 0.7 mg/dL Normal 0.7-1.2 [facility] GFR/1.73 sq M predicted among blacks MDRD vol rate/area (S/P/Bld) mL/min/{1.73_m2} Normal [facility] GFR/1.73 sq M predicted among non-blacks MDRD vol rate/area (S/P/Bld) mL/min/{1.73_m2} Normal >=60 [facility] Comment on above: Result Comment: Field Operations Supervisor michelle Kidney Disease: less than 60 ml/min/1.73 sq.m. Kidney Failure: less than 15 ml/min/1.73 sq.m.Results valid for patients 18 years and older. Glucose mass conc 129 mg/dL High 74-99 [facility] Potassium molar conc 4.1 mmol/L Normal 3.5-5.0 [facility] Sodium molar conc 137 mmol/L Normal 132-146 [facility] Urea nitrogen mass conc 10 mg/dL Normal 6-20 [facility] CBC With Platelet and Differ entialon 05-16-2018 Abs Imm Granulocytes 0.04 E9/L Normal [facility] Basophils Auto #/vol (Bld) 0.04 E9/L Normal 0.00-0.20 [facility] Basophils/100 WBC Auto (Bld) 0.5 % Normal 0.0-2.0 [facility] Eosinophils Auto #/vol (Bld) 0.13 E9/L Normal 0.05-0.50 [facility] Eosinophils/100 WBC Auto (Bld) 1.5 % Normal 0.0-6.0 [facility] Erythrocyte distribution width Auto Ratio (RBC) 14.6 fL Normal 11.5-15.0 [facility] Hematocrit Auto Volume Fraction (Bld) 38.9 % Normal 37.0-54.0 [facility] Hemoglobin mass conc (Bld) 11.8 g/dL Low 12.5-16.5 [facility] Imm Granulocytes 0.5 % Normal 0.0-5.0 [facility] Lymphocytes Auto #/vol (Bld) 1.68 E9/L Normal 1.50-4.00 [facility] Lymphocytes/100 WBC Auto (Bld) 19.1 % Low 20.0-42.0 [facility] MCH Auto Entitic mass (RBC) 28.1 pg Normal 26.0-35.0 [facility] MCHC Auto mass conc (RBC) 30.3 % Low 32.0-34.5 [facility] MCV Auto Entitic volume (RBC) 92.6 fL Normal 80.0-99.9 [facility] Monocytes Auto #/vol (Bld) 0.41 E9/L Normal 0.10-0.95 [facility] Monocytes/100 WBC Auto (Bld) 4.7 % Normal 2.0-12.0 [facility] Neutrophils Auto #/vol (Bld) 6.50 E9/L Normal 1.80-7.30 [facility] Neutrophils/100 WBC Auto (Bld) 73.7 % Normal 43.0-80.0 [facility] Platelet mean volume Auto Entitic volume (Bld) 10.2 fL Normal 7.0-12.0 [facility] Platelets Auto #/vol (Bld) 216 E9/L Normal 130-450 [facility] RBC Auto #/vol (Bld) 4.20 E12/L Normal 3.80-5.80 [facility] WBC Auto #/vol (Bld) 8.8 E9/L Normal 4.5-11.5 [facility] Lipid Panelon 05-16-2018 Cholesterol in HDL mass conc 38 mg/dL Normal >40 [facility] Cholesterol in LDL mass conc 53 mg/dL Normal 0-99 [facility] Cholesterol mass conc 115 mg/dL Normal 0-199 [facility] Triglyceride mass conc 122 mg/dL Normal 0-149 [facility] VLDL Cholesterol (Calculated) 24 mg/dL Normal [facility] Urinalysis, with microscopic on 05-16-2018 Bacteria LM.HPF #/area (Urine sed) NONE Normal [facility] RBC Test strip #/vol (U) NONE Normal 0-2 [facility] WBC #/vol (U) NONE Normal 0-5 [facility] Bilirubin Ql (U) Negative Normal Negative [facility] Clarity Nom (U) Clear Normal Clear [facility] Color Nom (U) Yellow Normal Straw/Morton ow [facility] Glucose Ql (U) Negative Normal Negative [facility] Hemoglobin Test strip Ql (U) Negative Normal Negative [facility] Ketones Ql (U) Negative Normal Negative [facility] Leukocyte esterase Test strip Ql (U) Negative Normal Negative [facility] Nitrite Test strip Ql (U) Negative Normal Negative [facility] pH Test strip (U) 6.0 [pH] Normal 5.0-9.0 [facility] Protein Test strip Ql (U) Negative Normal Negative [facility] Specific gravity Relative Density (U) 1.015 Normal 1.005-1.03 0 [facility] Urobilinogen Test strip Qn (U) 0.2 {Kalee'U}/dL Normal < 2.0 [facility] CBC With Platelet No Differe radameson 05-15-2018 Erythrocyte distribution width Auto Ratio (RBC) 14.5 fL Normal 11.5-15.0 [facility] Hematocrit Auto Volume Fraction (Bld) 38.5 % Normal 37.0-54.0 [facility] Hemoglobin mass conc (Bld) 11.8 g/dL Low 12.5-16.5 [facility] MCH Auto Entitic mass (RBC) 27.6 pg Normal 26.0-35.0 [facility] MCHC Auto mass conc (RBC) 30.6 % Low 32.0-34.5 [facility] MCV Auto Entitic volume (RBC) 90.0 fL Normal 80.0-99.9 [facility] Platelet mean volume Auto Entitic volume (Bld) 10.0 fL Normal 7.0-12.0 [facility] Platelets Auto #/vol (Bld) 262 E9/L Normal 130-450 [facility] RBC Auto #/vol (Bld) 4.28 E12/L Normal 3.80-5.80 [facility] WBC Auto #/vol (Bld) 12.4 E9/L High 4.5-11.[address] [facility] [address] BRAIN PERFUSIONon 018 CT BRAIN PERFUSION Patient 6DOB: 1960ge: 58 yearsGender: MaleOrder Date: [...] ischemia or infarct.Interpreted by:KIKO Aponteigned by:Mireya Alex MD05/15/18inal result Normal [facility] CT HEAD WO CONTRASTon 2017 CT [...] were performed. The study was performed on CTscanner with dose reduction technique. Low-dose CT acquisitiontechnique [...] by:KIKO Aponteigned by:Mireya Alex MD05/15/18inal result Normal [facility] CTA HEAD W CONTRASTon 2017 CTA [...] this exam. This study was performed on [employer] with dose reduction technique. Low-dose CT acquisitiontechnique included one of following options; 1 . Automated exposurecontrol, 2. Adjustment of MA and or KV according to patient's size or3. Use of iterative reconstruction.FINDINGS: Superior cervical, petrous, cavernous, and supraclinoidsegments of internal carotid arteries are unremarkable. A1 and [id number] of anterior cerebral arteries and the anterior [...] or vascular malformation.Interpreted by:KIKO Aponteigned by:Mireya Alex MD05/15/18Final result Normal [facility] CTA NECK W CONTRASTon 2017 CTA [...] by:KIKO Aponteigned by:Mireya Alex MD05/15/18Final result Normal [facility] Comprehensive Metabolic Pane wilton 05-15-2018 Albumin mass conc 3.9 g/dL Normal 3.5-5.2 [facility] ALP enzyme act/vol 170 U/L High 40-129 [facility] ALT enzyme act/vol 9 U/L Normal 0-40 [facility] Anion gap 3 molar conc 12 mmol/L Normal 7-16 [facility] AST enzyme act/vol 13 U/L Normal 0-39 [facility] Bilirubin mass conc 0.3 mg/dL Normal 0.0-1.2 [facility] Calcium mass conc 8.9 mg/dL Normal 8.6-10.2 [facility] Chloride molar conc 99 mmol/L Normal 98-107 [facility] CO2 molar conc 24 mmol/L Normal 22-29 [facility] Creatinine mass conc 0.7 mg/dL Normal 0.7-1.2 [facility] GFR/1.73 sq M predicted among blacks MDRD vol rate/area (S/P/Bld) mL/min/{1.73_m2} Normal [facility] GFR/1.73 sq M predicted among non-blacks MDRD vol rate/area (S/P/Bld) mL/min/{1.73_m2} Normal >=60 [facility] Comment on above: Result Comment: Field Operations Supervisor michelle Kidney Disease: less than 60 ml/min/1.73 sq.m. Kidney Failure: less than 15 ml/min/1.73 sq.m.Results valid for patients 18 years and older. Glucose mass conc 117 mg/dL High 74-99 [facility] Potassium molar conc 4.2 mmol/L Normal 3.5-5.0 [facility] Protein mass conc 7.2 g/dL Normal 6.4-8.3 [facility] Sodium molar conc 135 mmol/L Normal 132-146 [facility] Urea nitrogen mass conc 11 mg/dL Normal 6-20 [facility] METER GLUCOSEon 05-15-2018 Glucose mass conc 102 mg/dL High 74-99 [facility] Partial Thromboplastin Timeo n 05-15-2018 aPTT Coag time (Bld) 29.8 s Normal 24.5-35.1 [facility] Prothrombin Timeon 8 INR Coag RelTime (PPP) 0.9 {INR} Normal [facility] Prothrombin time (PT) Coag time (PPP) 10.9 s Normal 9.3-12.4 [facility] Troponinon 05-15-2018 Troponin I.cardiac mass conc ng/mL Normal 0.00-0.03 [facility] Comment on above: Result Comment: TROP [...] silhouette: Unchanged cardiomediastinal silhouette.Other:Interpreted by:Michael Swanson, DOSigned by:Micahel Swanson, DO05/15/18Final result Normal [facility] General Medical Progress Not clovis 03-04-2018 Protein mass conc [facility] Patient: NATALIE GERBER [address] [facility] MR#: [id number] [place], [place] [address] : 1960 Ord[address] Murray: Dept: PDOC Loc: [facility] 617-1 General Medical Progress Note Service Dt: 03/04/18 Report#: [id number] Adm Dt: 02/24/18 Dis Dt: General-Medical Progress [...] nontender, normal bowel sounds Extremities: Positive: negative jrodan's sign bilaterally Neurological: Positive: alert Integumentary: Positive: [...] (Aspirin, "Baby" (Chewable)) 81 mg PO DAILY [facility] Last Admin: 03/04/18 08:44 Dose: 81 mg Carvedilol (Coreg) 6.25 mg PO DAILY [facility] Last Admin: 03/04/18 08:43 Dose: 6.25 mg Clopidogrel Bisulfate (Plavix) 75 mg PO DAILY [facility] Last Admin: 03/04/18 08:44 Dose: 75 mg Cyanocobalamin (Vitamin B-12) 1,000 mcg PO DAILY [facility] Last Admin: 03/04/18 08:45 Dose: 1,000 mcg Dextrose (Dextrose Syringe) 25 ml IV Q15M PRN PRN Reason: Hypoglycemia Dextrose (Dextrose Syringe) 50 ml IV Q15M PRN PRN Reason: Hypoglycemia Dextrose (Instant Glucose) 37.5 g PO Q15M PRN PRN Reason: Hypoglycemia Enoxaparin Sodium (Lovenox) 40 mg SC DAILY [facility] Last Admin: 03/04/18 08:45 Dose: 40 mg Furosemide (Lasix) 20 mg PO DAILY [facility] Last Admin: 03/04/18 08:45 Dose: 20 mg Gabapentin (Neurontin) 400 mg PO DAILY [facility] Last Admin: 03/04/18 08:49 Dose: 400 mg Glucagon (Glucagon) 1 mg IM Q15M PRN PRN Reason: Hypoglycemia Levothyroxine Sodium (Synthroid) 50 mcg PO QDSYNTH [facility] Last Admin: 03/04/18 05:27 Dose: 50 mcg Lisinopril (Zestril/Prinivil) 5 mg PO DAILY [facility] Last Admin: 03/04/18 08:44 Dose: 5 mg Melatonin (Melatonin) 3 mg PO QHS [facility] Last Admin: 03/03/18 21:30 Dose: 3 mg Metformin HCl (Glucophage Xr) 500 mg PO 0800,1700 [facility] Last Admin: 03/04/18 08:42 Dose: Not Given Methylphenidate HCl (Ritalin) 40 mg PO DAILY [facility] Last Admin: 03/04/18 08:43 Dose: 40 mg Nitroglycerin (Nitrostat) 400 mcg SL Q5M PRN PRN Reason: Chest Pain Ondansetron HCl (Zofran Odt) 4 mg PO Q6 PRN PRN Reason: Nausea/vomiting Oxycodone/Acetaminophen (Percocet) 2 tab PO Q6 PRN PRN Reason: Pain-moderate (4-6/10) Last Admin: 03/04/18 09:35 Dose: 2 tab Pantoprazole Sodium (Protonix) 40 mg PO DAILY [facility] Last Admin: 03/04/18 08:45 Dose: 40 mg Quetiapine Fumarate (Seroquel) 100 mg PO QHS [facility] Last Admin: 03/03/18 21:30 Dose: 100 mg Senna/Docusate Sodium (Senokot-S) 1 tab PO DAILY [facility] Last Admin: 03/04/18 08:45 Dose: 1 tab Simvastatin (Zocor) 40 mg PO QHS [facility] Last Admin: 03/03/18 21:30 Dose: 40 mg Vitamin D (Vitamin D) 2,000 units.intl PO DAILY [facility] Last Admin: 03/04/18 08:44 Dose: 2,000 [...] Diabetes mellitus type: type 2 Diabetes mellitus usp insulin use: without link trainer mechanic use (7) CHF exacerbation Status: Suspected Qualifiers: [...] discharge to home, f/u as outpt in [place], [place] - Patient Time (minutes) Time Spent w/Patient: [address] [facility] Glucose, Point of Careon Glucose mass conc 113 mg/dL High 80-110 [facility] Comment on above: Performed By: #### C BC, BMP, TROP, BNP, TSH ####[facility] [place], [place] [id number] Glucose mass conc 113 mg/dL High 80-110 [facility] Comment on above: Performed By: #### C BC, BMP, TROP, BNP, TSH ####[facility] [place], [place] [id number] Orthopedic Progress Noteon 1 Protein mass conc [facility] Patient: NATALIE GERBER [address] [facility] MR#: [id number] [place], [place] [address] : 1960 OrdM[place] Murray: Dept: PDOC Loc: [address] [place] [address] Orthopedic Progress Note Service Dt: 03/04/18 Report#: [id number] Adm Dt: 02/24/18 Dis Dt: Orthopedic Progress [...] (Aspirin, "Baby" (Chewable)) 81 mg PO DAILY [facility] Last Admin: 03/03/18 08:58 Dose: 81 mg Carvedilol (Coreg) 6.25 mg PO DAILY [facility] Last Admin: 03/03/18 08:58 Dose: 6.25 mg Clopidogrel Bisulfate (Plavix) 75 mg PO DAILY [facility] Last Admin: 03/03/18 08:55 Dose: 75 mg Cyanocobalamin (Vitamin B-12) 1,000 mcg PO DAILY [facility] Last Admin: 03/03/18 08:58 Dose: 1,000 mcg Dextrose (Dextrose Syringe) 25 ml IV Q15M PRN PRN Reason: Hypoglycemia Dextrose (Dextrose Syringe) 50 ml IV Q15M PRN PRN Reason: Hypoglycemia Dextrose (Instant Glucose) 37.5 g PO Q15M PRN PRN Reason: Hypoglycemia Enoxaparin Sodium (Lovenox) 40 mg SC DAILY [facility] Last Admin: 03/03/18 08:58 Dose: 40 mg Furosemide (Lasix) 20 mg PO DAILY [facility] Last Admin: 03/03/18 08:58 Dose: 20 mg Gabapentin (Neurontin) 400 mg PO DAILY [facility] Last Admin: 03/03/18 08:55 Dose: 400 mg Glucagon (Glucagon) 1 mg IM Q15M PRN PRN Reason: Hypoglycemia Levothyroxine Sodium (Synthroid) 50 mcg PO QDSYNTH [facility] Last Admin: 03/04/18 05:27 Dose: 50 mcg Lisinopril (Zestril/Prinivil) 5 mg PO DAILY [facility] Last Admin: 03/03/18 09:10 Dose: 5 mg Melatonin (Melatonin) 3 mg PO QHS [facility] Last Admin: 03/03/18 21:30 Dose: 3 mg Metformin HCl (Glucophage Xr) 500 mg PO 0800,1700 [facility] Last Admin: 03/03/18 16:38 Dose: Not Given Methylphenidate HCl (Ritalin) 40 mg PO DAILY [facility] Last Admin: 03/03/18 10:12 Dose: 40 mg Nitroglycerin (Nitrostat) 400 mcg SL Q5M PRN PRN Reason: Chest Pain Ondansetron HCl (Zofran Odt) 4 mg PO Q6 PRN PRN Reason: Nausea/vomiting Oxycodone/Acetaminophen (Percocet) 2 tab PO Q6 PRN PRN Reason: Pain-moderate (4-6/10) Last Admin: 03/04/18 03:24 Dose: 2 tab Pantoprazole Sodium (Protonix) 40 mg PO DAILY [facility] Last Admin: 03/03/18 08:55 Dose: 40 mg Quetiapine Fumarate (Seroquel) 100 mg PO QHS [facility] Last Admin: 03/03/18 21:30 Dose: 100 mg Senna/Docusate Sodium (Senokot-S) 1 tab PO DAILY [facility] Last Admin: 03/03/18 08:58 Dose: 1 tab Simvastatin (Zocor) 40 mg PO QHS [facility] Last Admin: 03/03/18 21:30 Dose: 40 mg Vitamin D (Vitamin D) 2,000 units.intl PO DAILY [facility] Last Admin: 03/03/18 08:56 Dose: 2,000 units.intl Allergies/Adv: Allergies Allergy/AdvReac Type Severity Reaction Status Date / Time ketorolac Allergy Severe Hives Verified 08/02/16 23:25 nalbuphine Allergy Severe Shortness Verified 08/02/16 23:25 of Breath nalbuphine HCl * Allergy Unknown Verified 10/08/16 21:16 [From Nubain] - Comments Impression Comments: 03/04/18 07:31 Patient's [...] as outpatient. Orthopedic follow-up as needed. Normal [facility] Arthrogram Shoulder Righton 03-03-2018 Arthrogram Shoulder Right [facility] Patient: NATALIE GERBER [address] [facility] MR#: [id number] [place], [place] [address] : 1960 Ord. : Thierno Borja MD Dept: Diagnostic Imaging Loc: E 617-1 DI REPORT Service Dt:03/03/18 Report#: [id number] Adm Dt: 02/24/18 Dis Dt: Comments: STUDY: CR Arthrogram Shoulder Right; 03/03/2018 3:10 pm INDICATION: rotator cuff tear;adhessive capsulitis/tendinitis. COMPARISON: None. ACCESSION NUMBER(S): [id number] ORDERING CLINICIAN: Thierno Borja TECHNIQUE: Right shoulder arthrogram. The procedure was [...] by: Mely Chi 03/03/2018 4:[address] [facility] General Medical Progress Not clovis 03-03-2018 Protein mass conc [facility] Patient: NATALIE GERBER [address] [facility] MR#: [id number] [place], [place] [address] : 1960 OrdMilt[address] Murray: Dept: PDOC Loc: [facility] 617- General Medical Progress Note Service Dt: 03/03/18 Report#: [id number] Adm Dt: 02/24/18 Dis Dt: 03/04/18 General-Medical [...] (Aspirin, "Baby" (Chewable)) 81 mg PO DAILY [facility] Last Admin: 03/02/18 08:18 Dose: 81 mg Carvedilol (Coreg) 6.25 mg PO DAILY [facility] Last Admin: 03/02/18 08:18 Dose: 6.25 mg Clopidogrel Bisulfate (Plavix) 75 mg PO DAILY [facility] Last Admin: 03/02/18 08:18 Dose: 75 mg Cyanocobalamin (Vitamin B-12) 1,000 mcg PO DAILY [facility] Last Admin: 03/02/18 08:18 Dose: 1,000 mcg Dextrose (Dextrose Syringe) 25 ml IV Q15M PRN PRN Reason: Hypoglycemia Dextrose (Dextrose Syringe) 50 ml IV Q15M PRN PRN Reason: Hypoglycemia Dextrose (Instant Glucose) 37.5 g PO Q15M PRN PRN Reason: Hypoglycemia Enoxaparin Sodium (Lovenox) 40 mg SC DAILY [facility] Last Admin: 03/02/18 08:18 Dose: 40 mg Furosemide (Lasix) 20 mg PO DAILY [facility] Last Admin: 03/02/18 08:18 Dose: 20 mg Gabapentin (Neurontin) 400 mg PO DAILY [facility] Last Admin: 03/02/18 08:16 Dose: 400 mg Glucagon (Glucagon) 1 mg IM Q15M PRN PRN Reason: Hypoglycemia Levothyroxine Sodium (Synthroid) 50 mcg PO QDSYNTH [facility] Last Admin: 03/02/18 05:19 Dose: 50 mcg Lisinopril (Zestril/Prinivil) 5 mg PO DAILY [facility] Last Admin: 03/02/18 08:24 Dose: 5 mg Melatonin (Melatonin) 3 mg PO QHS [facility] Last Admin: 03/02/18 20:20 Dose: 3 mg Metformin HCl (Glucophage Xr) 500 mg PO 0800,1700 [facility] Last Admin: 03/02/18 17:15 Dose: Not Given Methylphenidate HCl (Ritalin) 40 mg PO DAILY [facility] Last Admin: 03/02/18 10:22 Dose: 40 mg Nitroglycerin (Nitrostat) 400 mcg SL Q5M PRN PRN Reason: Chest Pain Oxycodone/Acetaminophen (Percocet) 2 tab PO Q6 PRN PRN Reason: Pain-moderate (4-6/10) Last Admin: 03/03/18 02:25 Dose: 2 tab Pantoprazole Sodium (Protonix) 40 mg PO DAILY [facility] Last Admin: 03/02/18 08:18 Dose: 40 mg Quetiapine Fumarate (Seroquel) 100 mg PO QHS [facility] Last Admin: 03/02/18 20:20 Dose: 100 mg Senna/Docusate Sodium (Senokot-S) 1 tab PO DAILY [facility] Last Admin: 03/02/18 08:18 Dose: 1 tab Simvastatin (Zocor) 40 mg PO QHS [facility] Last Admin: 03/02/18 20:20 Dose: 40 mg Vitamin D (Vitamin D) 2,000 units.intl PO DAILY [facility] Last Admin: 03/02/18 08:18 Dose: 2,000 [...] Diabetes mellitus type: type 2 Diabetes mellitus usp insulin use: without 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 Protein mass conc [facility] Patient: NATALIE GERBER [address] MR#: [id number] [place], [place] [address] : 1960 Ord[address] : Dept: PDOC Loc: [facility] 617-1 General Medical Progress Note Service Dt: 03/03/18 Report#: [id number] Adm Dt: 02/24/18 Dis Dt: General-Medical Progress Note - Patient Visit Reason Visit Reason: PARESTHESIA, DYSPNEA - Chief Complaint Chief Complaint: LUE and facial numbness - Subjective Narrative HPI/ROS: pt seen chart reviewed talked with RN pt still with shoulder pain percocet helping no new problems MRI ordered by DR BORJA pending today - Review of Systems Respiratory: [...] (Aspirin, "Baby" (Chewable)) 81 mg PO DAILY [facility] Last Admin: 03/02/18 08:18 Dose: 81 mg Carvedilol (Coreg) 6.25 mg PO DAILY [facility] Last Admin: 03/02/18 08:18 Dose: 6.25 mg Clopidogrel Bisulfate (Plavix) 75 mg PO DAILY [facility] Last Admin: 03/02/18 08:18 Dose: 75 mg Cyanocobalamin (Vitamin B-12) 1,000 mcg PO DAILY [facility] Last Admin: 03/02/18 08:18 Dose: 1,000 mcg Dextrose (Dextrose Syringe) 25 ml IV Q15M PRN PRN Reason: Hypoglycemia Dextrose (Dextrose Syringe) 50 ml IV Q15M PRN PRN Reason: Hypoglycemia Dextrose (Instant Glucose) 37.5 g PO Q15M PRN PRN Reason: Hypoglycemia Enoxaparin Sodium (Lovenox) 40 mg SC DAILY [facility] Last Admin: 03/02/18 08:18 Dose: 40 mg Furosemide (Lasix) 20 mg PO DAILY [facility] Last Admin: 03/02/18 08:18 Dose: 20 mg Gabapentin (Neurontin) 400 mg PO DAILY [facility] Last Admin: 03/02/18 08:16 Dose: 400 mg Glucagon (Glucagon) 1 mg IM Q15M PRN PRN Reason: Hypoglycemia Levothyroxine Sodium (Synthroid) 50 mcg PO QDSYNTH [facility] Last Admin: 03/02/18 05:19 Dose: 50 mcg Lisinopril (Zestril/Prinivil) 5 mg PO DAILY [facility] Last Admin: 03/02/18 08:24 Dose: 5 mg Melatonin (Melatonin) 3 mg PO QHS [facility] Last Admin: 03/02/18 20:20 Dose: 3 mg Metformin HCl (Glucophage Xr) 500 mg PO 0800,1700 [facility] Last Admin: 03/02/18 17:15 Dose: Not Given Methylphenidate HCl (Ritalin) 40 mg PO DAILY [facility] Last Admin: 03/02/18 10:22 Dose: 40 mg Nitroglycerin (Nitrostat) 400 mcg SL Q5M PRN PRN Reason: Chest Pain Oxycodone/Acetaminophen (Percocet) 2 tab PO Q6 PRN PRN Reason: Pain-moderate (4-6/10) Last Admin: 03/03/18 02:25 Dose: 2 tab Pantoprazole Sodium (Protonix) 40 mg PO DAILY [facility] Last Admin: 03/02/18 08:18 Dose: 40 mg Quetiapine Fumarate (Seroquel) 100 mg PO QHS [facility] Last Admin: 03/02/18 20:20 Dose: 100 mg Senna/Docusate Sodium (Senokot-S) 1 tab PO DAILY [facility] Last Admin: 03/02/18 08:18 Dose: 1 tab Simvastatin (Zocor) 40 mg PO QHS [facility] Last Admin: 03/02/18 20:20 Dose: 40 mg Vitamin D (Vitamin D) 2,000 units.intl PO DAILY [facility] Last Admin: 03/02/18 08:18 Dose: 2,000 [...] Diabetes mellitus type: type 2 Diabetes mellitus usp insulin use: without usp use (3) Paresthesia and pain of left extremity Status: Acute - Comments Impression: 03/03/18 05:42 stable doing well MRI pending today further Tx per MRI results possible discharge see orders Normal [facility] Glucose, Point of Careon Glucose mass conc 105 mg/dL Normal 80-110 [facility] Comment on above: Performed By: #### C BC, BMP, TROP, BNP, TSH ####[place] [id number] [place] [address] Glucose mass conc 93 mg/dL Normal 80-[address] [facility] [facility] Comment on above: Performed By: #### C BC, BMP, TROP, BNP, TSH ####[address] [address] Consultation Reporton 2017 Consultation Report [facility] Patient: NATALIE GERBER [address] [facility] MR#: [id number] [place], [place] [address] : 1960 Ord[address] [place]: Dept: PDOC Loc: [facility] [id number] Consultation Service Dt: 03/02/18 Report#: [id number] Adm Dt: 02/24/18 Dis Dt: Initial Physician Consultation - Consultation Requesting Physician: Marisela Michel - PCP/Chief Complaint Primary Care Physician: Marisela Michel Chief Complaint: LUE and facial numbness - Past Medical History Neurological: CVA/Stroke, TIA/Transient Ischemic Attack(s) Other Neurological Hx: TPA 3 TIMES ADMINISTERED ENT/Eye: Eye problem Other ENT/Eye Hx: wears glassess Cardiac: Angioplasty, Coronary Artery Disease/CAD, Cardiac Cath, CHF, Heart Attack ([place]), High Cholesterol, HTN Respiratory: Pulmonary Embolism/PE, Pneumonia [...] of Substances/Recreational Drugs: No Comment: Lives in [facility] with his . 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 - Family Health [...] (Aspirin, "Baby" (Chewable)) 81 mg PO DAILY [facility] Last Admin: 03/02/18 08:18 Dose: 81 mg Carvedilol (Coreg) 6.25 mg PO DAILY [facility] Last Admin: 03/02/18 08:18 Dose: 6.25 mg Clopidogrel Bisulfate (Plavix) 75 mg PO DAILY [facility] Last Admin: 03/02/18 08:18 Dose: 75 mg Cyanocobalamin (Vitamin B-12) 1,000 mcg PO DAILY [facility] Last Admin: 03/02/18 08:18 Dose: 1,000 mcg Dextrose (Dextrose Syringe) 25 ml IV Q15M PRN PRN Reason: Hypoglycemia Dextrose (Dextrose Syringe) 50 ml IV Q15M PRN PRN Reason: Hypoglycemia Dextrose (Instant Glucose) 37.5 g PO Q15M PRN PRN Reason: Hypoglycemia Enoxaparin Sodium (Lovenox) 40 mg SC DAILY [facility] Last Admin: 03/02/18 08:18 Dose: 40 mg Furosemide (Lasix) 20 mg PO DAILY [facility] Last Admin: 03/02/18 08:18 Dose: 20 mg Gabapentin (Neurontin) 400 mg PO DAILY [facility] Last Admin: 03/02/18 08:16 Dose: 400 mg Glucagon (Glucagon) 1 mg IM Q15M PRN PRN Reason: Hypoglycemia Levothyroxine Sodium (Synthroid) 50 mcg PO QDSYNTH [facility] Last Admin: 03/02/18 05:19 Dose: 50 mcg Lisinopril (Zestril/Prinivil) 5 mg PO DAILY [facility] Last Admin: 03/02/18 08:24 Dose: 5 mg Melatonin (Melatonin) 3 mg PO QHS [facility] Last Admin: 03/01/18 21:09 Dose: 3 mg Metformin HCl (Glucophage Xr) 500 mg PO 0800,1700 [facility] Last Admin: 03/02/18 08:04 Dose: Not Given Methylphenidate HCl (Ritalin) 40 mg PO DAILY [facility] Last Admin: 03/02/18 10:22 Dose: 40 mg Nitroglycerin (Nitrostat) 400 mcg SL Q5M PRN PRN Reason: Chest Pain Oxycodone/Acetaminophen (Percocet) 2 tab PO Q6 PRN PRN Reason: Pain-moderate (4-6/10) Last Admin: 03/02/18 08:16 Dose: 2 tab Pantoprazole Sodium (Protonix) 40 mg PO DAILY [facility] Last Admin: 03/02/18 08:18 Dose: 40 mg Quetiapine Fumarate (Seroquel) 100 mg PO QHS [facility] Last Admin: 03/01/18 21:01 Dose: Not Given Senna/Docusate Sodium (Senokot-S) 1 tab PO DAILY [facility] Last Admin: 03/02/18 08:18 Dose: 1 tab Simvastatin (Zocor) 40 mg PO QHS [facility] Last Admin: 03/01/18 21:01 Dose: 40 mg Vitamin D (Vitamin D) 2,000 units.intl PO DAILY [facility] Last Admin: 03/02/18 08:18 Dose: 2,000 [...] surgeon. A neurosurgeon who saw him in [place] so that a CT scan presumably done [...] can be done at any time Normal [facility] General Medical Progress Not clovis 03-02-2018 Protein mass conc [facility] Patient: NATALIE GERBER [address] [facility] MR#: [id number] [place], [place] [address] : 1960 Ord. : Dept: PDOC Loc: [facility] [id number] General Medical Progress Note Service Dt: 03/02/18 Report#: [id number] Adm Dt: 02/24/18 Dis Dt: General-Medical Progress [...] (Aspirin, "Baby" (Chewable)) 81 mg PO DAILY [facility] Last Admin: 03/02/18 08:18 Dose: 81 mg Carvedilol (Coreg) 6.25 mg PO DAILY [facility] Last Admin: 03/02/18 08:18 Dose: 6.25 mg Clopidogrel Bisulfate (Plavix) 75 mg PO DAILY [facility] Last Admin: 03/02/18 08:18 Dose: 75 mg Cyanocobalamin (Vitamin B-12) 1,000 mcg PO DAILY [facility] Last Admin: 03/02/18 08:18 Dose: 1,000 mcg Dextrose (Dextrose Syringe) 25 ml IV Q15M PRN PRN Reason: Hypoglycemia Dextrose (Dextrose Syringe) 50 ml IV Q15M PRN PRN Reason: Hypoglycemia Dextrose (Instant Glucose) 37.5 g PO Q15M PRN PRN Reason: Hypoglycemia Enoxaparin Sodium (Lovenox) 40 mg SC DAILY [facility] Last Admin: 03/02/18 08:18 Dose: 40 mg Furosemide (Lasix) 20 mg PO DAILY [facility] Last Admin: 03/02/18 08:18 Dose: 20 mg Gabapentin (Neurontin) 400 mg PO DAILY [facility] Last Admin: 03/02/18 08:16 Dose: 400 mg Glucagon (Glucagon) 1 mg IM Q15M PRN PRN Reason: Hypoglycemia Levothyroxine Sodium (Synthroid) 50 mcg PO QDSYNTH [facility] Last Admin: 03/02/18 05:19 Dose: 50 mcg Lisinopril (Zestril/Prinivil) 5 mg PO DAILY [facility] Last Admin: 03/02/18 08:24 Dose: 5 mg Melatonin (Melatonin) 3 mg PO QHS [facility] Last Admin: 03/01/18 21:09 Dose: 3 mg Metformin HCl (Glucophage Xr) 500 mg PO 0800,1700 [facility] Last Admin: 03/02/18 08:04 Dose: Not Given Methylphenidate HCl (Ritalin) 40 mg PO DAILY [facility] Last Admin: 03/01/18 07:57 Dose: 40 mg Nitroglycerin (Nitrostat) 400 mcg SL Q5M PRN PRN Reason: Chest Pain Oxycodone/Acetaminophen (Percocet) 2 tab PO Q6 PRN PRN Reason: Pain-moderate (4-6/10) Last Admin: 03/02/18 08:16 Dose: 2 tab Pantoprazole Sodium (Protonix) 40 mg PO DAILY [facility] Last Admin: 03/02/18 08:18 Dose: 40 mg Quetiapine Fumarate (Seroquel) 100 mg PO QHS [facility] Last Admin: 03/01/18 21:01 Dose: Not Given Senna/Docusate Sodium (Senokot-S) 1 tab PO DAILY [facility] Last Admin: 03/02/18 08:18 Dose: 1 tab Simvastatin (Zocor) 40 mg PO QHS [facility] Last Admin: 03/01/18 21:01 Dose: 40 mg Vitamin D (Vitamin D) 2,000 units.intl PO DAILY [facility] Last Admin: 03/02/18 08:18 Dose: 2,000 [...] Diabetes mellitus type: type 2 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 Glucose, Point of Careon Glucose mass conc 92 mg/dL Normal 80-110 [facility] Comment on above: Performed By: #### C BC, BMP, TROP, BNP, TSH ####[facility] [place], [place] [id number] Glucose mass conc 91 mg/dL Normal 80-110 [facility] Comment on above: Performed By: #### C BC, BMP, TROP, BNP, TSH ####[facility] [place], [place] [id number] Shoulder Right -Min 2 Viewso n 03-02-2018 Shoulder Right -Min 2 Views [facility] Patient: NATALIE GERBER MR#: [id number] [place], [place] [address] : [address] Marisela Michel MD Dept: Diagnostic Imaging Loc: [address] [place] [address]- DI REPORT Service Dt:03/02/18 Report#: [id number] Adm Dt: 02/24/18 Dis Dt: Comments: STUDY: CR Shoulder Right -Min 2 Views; 03/02/2018 10:45 am INDICATION: pain. COMPARISON: None. ACCESSION NUMBER(S): [id number] ORDERING CLINICIAN: Marisela Michel FINDINGS: There are moderate degenerative changes [...] Miguel Angel Gray 03/02/2018 1:[address] [facility] Endocrinology Progress Noteo n 03-01-2018 Protein mass conc [facility] Patient: NATALIE GERBER MR#: [id number] [place], [place] [address] : 1960 Ord. : Dept: PDOC Loc: [facility] [id number] Endocrinology Progress Note Service Dt: 03/01/18 Report#: [id number] Adm Dt: 02/24/18 Dis Dt: Endocrine Progress [...] (Aspirin, "Baby" (Chewable)) 81 mg PO DAILY [facility] Last Admin: 02/28/18 08:51 Dose: 81 mg Carvedilol (Coreg) 6.25 mg PO DAILY [facility] Last Admin: 02/28/18 08:31 Dose: Not Given Clopidogrel Bisulfate (Plavix) 75 mg PO DAILY [facility] Last Admin: 02/28/18 08:51 Dose: 75 mg Cyanocobalamin (Vitamin B-12) 1,000 mcg PO DAILY [facility] Last Admin: 02/28/18 08:51 Dose: 1,000 mcg Dextrose (Dextrose Syringe) 25 ml IV Q15M PRN PRN Reason: Hypoglycemia Dextrose (Dextrose Syringe) 50 ml IV Q15M PRN PRN Reason: Hypoglycemia Dextrose (Instant Glucose) 37.5 g PO Q15M PRN PRN Reason: Hypoglycemia Enoxaparin Sodium (Lovenox) 40 mg SC DAILY [facility] Last Admin: 02/28/18 08:49 Dose: 40 mg Furosemide (Lasix) 20 mg PO DAILY [facility] Last Admin: 02/28/18 08:50 Dose: 20 mg Gabapentin (Neurontin) 400 mg PO DAILY [facility] Last Admin: 02/28/18 08:51 Dose: 400 mg Glucagon (Glucagon) 1 mg IM Q15M PRN PRN Reason: Hypoglycemia Levothyroxine Sodium (Synthroid) 50 mcg PO QDSYNTH [facility] Last Admin: 03/01/18 05:22 Dose: 50 mcg Lisinopril (Zestril/Prinivil) 5 mg PO DAILY [facility] Last Admin: 02/28/18 08:32 Dose: Not Given Melatonin (Melatonin) 3 mg PO QHS [facility] Last Admin: 02/28/18 21:22 Dose: 3 mg Metformin HCl (Glucophage Xr) 500 mg PO 0800,1700 [facility] Last Admin: 02/28/18 15:06 Dose: Not Given Methylphenidate HCl (Ritalin) 40 mg PO DAILY [facility] Last Admin: 02/28/18 09:13 Dose: 40 mg Nitroglycerin (Nitrostat) 400 mcg SL Q5M PRN PRN Reason: Chest Pain Oxycodone/Acetaminophen (Percocet) 2 tab PO Q6 PRN PRN Reason: Pain-moderate (4-6/10) Last Admin: 03/01/18 05:22 Dose: 2 tab Pantoprazole Sodium (Protonix) 40 mg PO DAILY [facility] Last Admin: 02/28/18 08:50 Dose: 40 mg Quetiapine Fumarate (Seroquel) 100 mg PO QHS [facility] Last Admin: 02/28/18 21:22 Dose: 100 mg Senna/Docusate Sodium (Senokot-S) 1 tab PO DAILY [facility] Last Admin: 02/28/18 08:50 Dose: 1 tab Simvastatin (Zocor) 40 mg PO QHS [facility] Last Admin: 02/28/18 21:22 Dose: 40 mg Vitamin D (Vitamin D) 2,000 units.intl PO DAILY [facility] Last Admin: 02/28/18 08:50 Dose: 2,000 units.intl Allergies/Adv: Allergies Allergy/AdvReac Type Severity Reaction Status Date / Time ketorolac Allergy Severe Hives Verified 08/02/16 23:25 nalbuphine Allergy Severe Shortness Verified 08/02/16 23:25 of Breath nalbuphine HCl * Allergy Unknown Verified 10/08/16 21:16 [From Nubain] - Comments Impression Comments: 02/25/18 13:08 patient [...] him if he has diabetes possible new [id number] of old cva. neurology service will be [...] BMI Insulin resistance. High normal C-peptide. Normal [facility] General Medical Progress Not clovis 03-01-2018 Protein mass conc [facility] Patient: NATALIE GERBER [address] [facility] MR#: [id number] [place], [place] [address] : 1960 Ord. : Dept: PDOC Loc: [address] [place] [address] General Medical Progress Note Service Dt: 03/01/18 Report#: [id number] Adm Dt: 02/24/18 Dis Dt: General-Medical Progress [...] mg Carvedilol (Coreg) 6.25 mg PO DAILY [facility] Last Admin: 02/28/18 08:31 Dose: Not Given Clopidogrel Bisulfate (Plavix) 75 mg PO DAILY [facility] Last Admin: 02/28/18 08:51 Dose: 75 mg Cyanocobalamin (Vitamin B-12) 1,000 mcg PO DAILY [facility] Last Admin: 02/28/18 08:51 Dose: 1,000 mcg Dextrose (Dextrose Syringe) 25 ml IV Q15M PRN PRN Reason: Hypoglycemia Dextrose (Dextrose Syringe) 50 ml IV Q15M PRN PRN Reason: Hypoglycemia Dextrose (Instant Glucose) 37.5 g PO Q15M PRN PRN Reason: Hypoglycemia Enoxaparin Sodium (Lovenox) 40 mg SC DAILY [facility] Last Admin: 02/28/18 08:49 Dose: 40 mg Furosemide (Lasix) 20 mg PO DAILY [facility] Last Admin: 02/28/18 08:50 Dose: 20 mg Gabapentin (Neurontin) 400 mg PO DAILY [facility] Last Admin: 02/28/18 08:51 Dose: 400 mg Glucagon (Glucagon) 1 mg IM Q15M PRN PRN Reason: Hypoglycemia Levothyroxine Sodium (Synthroid) 50 mcg PO QDSYNTH [facility] Last Admin: 03/01/18 05:22 Dose: 50 mcg Lisinopril (Zestril/Prinivil) 5 mg PO DAILY [facility] Last Admin: 02/28/18 08:32 Dose: Not Given Melatonin (Melatonin) 3 mg PO QHS [facility] Last Admin: 02/28/18 21:22 Dose: 3 mg Metformin HCl (Glucophage Xr) 500 mg PO 0800,1700 [facility] Last Admin: 02/28/18 15:06 Dose: Not Given Methylphenidate HCl (Ritalin) 40 mg PO DAILY [facility] Last Admin: 02/28/18 09:13 Dose: 40 mg Nitroglycerin (Nitrostat) 400 mcg SL Q5M PRN PRN Reason: Chest Pain Oxycodone/Acetaminophen (Percocet) 2 tab PO Q6 PRN PRN Reason: Pain-moderate (4-6/10) Last Admin: 03/01/18 05:22 Dose: 2 tab Pantoprazole Sodium (Protonix) 40 mg PO DAILY [facility] Last Admin: 02/28/18 08:50 Dose: 40 mg Quetiapine Fumarate (Seroquel) 100 mg PO QHS [facility] Last Admin: 02/28/18 21:22 Dose: 100 mg Senna/Docusate Sodium (Senokot-S) 1 tab PO DAILY [facility] Last Admin: 02/28/18 08:50 Dose: 1 tab Simvastatin (Zocor) 40 mg PO QHS [facility] Last Admin: 02/28/18 21:22 Dose: 40 mg Vitamin D (Vitamin D) 2,000 units.intl PO DAILY [facility] Last Admin: 02/28/18 08:50 Dose: 2,000 units.intl Allergies/Adv: Allergies Allergy/AdvReac Type Severity Reaction Status Date / Time ketorolac Allergy Severe Hives Verified 08/02/16 23:25 nalbuphine Allergy Severe Shortness Verified 08/02/16 23:25 of Breath nalbuphine HCl * Allergy Unknown Verified 10/08/16 21:16 [From Carisa] - Assessment/Plan (1) Facial paresthesia Status: Acute (2) Arm paresthesia, left Status: Acute (3) DVT prophylaxis Status: Acute (4) Dyspnea Status: Acute (5) Morbid obesity Status: Acute (6) Diabetes Status: Chronic Qualifiers: Diabetes mellitus type: type 2 Diabetes mellitus usp insulin use: without usp use (7) CHF exacerbation Status: Suspected Qualifiers: [...] 03/01/18 07:57 Waiting for ecf approval Normal [facility] Glucose, Point of Careon Glucose mass conc 102 mg/dL Normal 80-110 [facility] Comment on above: Result Comment: RN/L PN NOTIFIED Performed By: #### C BC, BMP, TROP, BNP, TSH ####[address] [address] Glucose mass conc 96 mg/dL Normal 80-110 [facility] Comment on above: Performed By: #### C BC, BMP, TROP, BNP, TSH ####[address] [address] Glucose mass conc 82 mg/dL Normal 80-110 [facility] Comment on above: Performed By: #### C BC, BMP, TROP, BNP, TSH ####[facility] [place] [address] Endocrinology Progress Noteo n 02-28-2018 Protein mass conc [facility] Patient: NATALIE GERBER [address] [facility] MR#: [id number] [place], [place] [address] : 1960 Ord. : Dept: PDOC Loc: [facility] [phone] Endocrinology Progress Note Service Dt: 02/28/18 Report#: [id number] Adm Dt: 02/24/18 Dis Dt: Endocrine Progress [...] (Aspirin, "Baby" (Chewable)) 81 mg PO DAILY [facility] Last Admin: 02/27/18 09:57 Dose: 81 mg Carvedilol (Coreg) 6.25 mg PO DAILY [facility] Last Admin: 02/27/18 12:28 Dose: Not Given Clopidogrel Bisulfate (Plavix) 75 mg PO DAILY [facility] Last Admin: 02/27/18 09:57 Dose: 75 mg Cyanocobalamin (Vitamin B-12) 1,000 mcg PO DAILY [facility] Last Admin: 02/27/18 09:57 Dose: 1,000 mcg Dextrose (Dextrose Syringe) 25 ml IV Q15M PRN PRN Reason: Hypoglycemia Dextrose (Dextrose Syringe) 50 ml IV Q15M PRN PRN Reason: Hypoglycemia Dextrose (Instant Glucose) 37.5 g PO Q15M PRN PRN Reason: Hypoglycemia Enoxaparin Sodium (Lovenox) 40 mg SC DAILY [facility] Last Admin: 02/27/18 09:55 Dose: 40 mg Furosemide (Lasix) 20 mg PO DAILY [facility] Last Admin: 02/27/18 09:57 Dose: 20 mg Gabapentin (Neurontin) 400 mg PO DAILY [facility] Last Admin: 02/27/18 09:55 Dose: 400 mg Glucagon (Glucagon) 1 mg IM Q15M PRN PRN Reason: Hypoglycemia Levothyroxine Sodium (Synthroid) 50 mcg PO QDSYNTH [facility] Last Admin: 02/28/18 04:50 Dose: 50 mcg Lisinopril (Zestril/Prinivil) 5 mg PO DAILY [facility] Last Admin: 02/27/18 12:28 Dose: Not Given Melatonin (Melatonin) 3 mg PO QHS [facility] Last Admin: 02/27/18 22:35 Dose: 3 mg Metformin HCl (Glucophage Xr) 500 mg PO 0800,1700 [facility] Last Admin: 02/27/18 16:32 Dose: Not Given Methylphenidate HCl (Ritalin) 40 mg PO DAILY [facility] Last Admin: 02/27/18 09:55 Dose: 40 mg Nitroglycerin (Nitrostat) 400 mcg SL Q5M PRN PRN Reason: Chest Pain Oxycodone/Acetaminophen (Percocet) 2 tab PO Q6 PRN PRN Reason: Pain-moderate (4-6/10) Last Admin: 02/28/18 04:49 Dose: 2 tab Pantoprazole Sodium (Protonix) 40 mg PO DAILY [facility] Last Admin: 02/27/18 09:56 Dose: 40 mg Quetiapine Fumarate (Seroquel) 100 mg PO QHS [facility] Last Admin: 02/27/18 22:36 Dose: 100 mg Senna/Docusate Sodium (Senokot-S) 1 tab PO DAILY [facility] Last Admin: 02/27/18 09:56 Dose: 1 tab Simvastatin (Zocor) 40 mg PO QHS [facility] Last Admin: 02/27/18 22:36 Dose: 40 mg Vitamin D (Vitamin D) 2,000 units.intl PO DAILY [facility] Last Admin: 02/27/18 09:57 Dose: 2,000 [...] him if he has diabetes possible new [id number] of old cva. neurology service will be [...] BMI Insulin resistance. High normal C-peptide. Normal [facility] General Medical Progress Not clovis 02-28-2018 Protein mass conc [facility] Patient: NATALIE GERBER [address] MR#: [id number] [place], [place] [address] : 1960 Ord. : Dept: PDOC Loc: 9 [phone] General Medical Progress Note Service Dt: 02/28/18 Report#: [id number] Adm Dt: 02/24/18 Dis Dt: General-Medical Progress [...] (Aspirin, "Baby" (Chewable)) 81 mg PO DAILY [facility] Last Admin: 02/28/18 08:51 Dose: 81 mg Carvedilol (Coreg) 6.25 mg PO DAILY [facility] Last Admin: 02/28/18 08:31 Dose: Not Given Clopidogrel Bisulfate (Plavix) 75 mg PO DAILY [facility] Last Admin: 02/28/18 08:51 Dose: 75 mg Cyanocobalamin (Vitamin B-12) 1,000 mcg PO DAILY [facility] Last Admin: 02/28/18 08:51 Dose: 1,000 mcg Dextrose (Dextrose Syringe) 25 ml IV Q15M PRN PRN Reason: Hypoglycemia Dextrose (Dextrose Syringe) 50 ml IV Q15M PRN PRN Reason: Hypoglycemia Dextrose (Instant Glucose) 37.5 g PO Q15M PRN PRN Reason: Hypoglycemia Enoxaparin Sodium (Lovenox) 40 mg SC DAILY [facility] Last Admin: 02/28/18 08:49 Dose: 40 mg Furosemide (Lasix) 20 mg PO DAILY [facility] Last Admin: 02/28/18 08:50 Dose: 20 mg Gabapentin (Neurontin) 400 mg PO DAILY [facility] Last Admin: 02/28/18 08:51 Dose: 400 mg Glucagon (Glucagon) 1 mg IM Q15M PRN PRN Reason: Hypoglycemia Levothyroxine Sodium (Synthroid) 50 mcg PO QDSYNTH [facility] Last Admin: 02/28/18 04:50 Dose: 50 mcg Lisinopril (Zestril/Prinivil) 5 mg PO DAILY [facility] Last Admin: 02/28/18 08:32 Dose: Not Given Melatonin (Melatonin) 3 mg PO QHS [facility] Last Admin: 02/27/18 22:35 Dose: 3 mg Metformin HCl (Glucophage Xr) 500 mg PO 0800,1700 [facility] Last Admin: 02/28/18 08:51 Dose: Not Given Methylphenidate HCl (Ritalin) 40 mg PO DAILY [facility] Last Admin: 02/27/18 09:55 Dose: 40 mg Nitroglycerin (Nitrostat) 400 mcg SL Q5M PRN PRN Reason: Chest Pain Oxycodone/Acetaminophen (Percocet) 2 tab PO Q6 PRN PRN Reason: Pain-moderate (4-6/10) Last Admin: 02/28/18 04:49 Dose: 2 tab Pantoprazole Sodium (Protonix) 40 mg PO DAILY [facility] Last Admin: 02/28/18 08:50 Dose: 40 mg Quetiapine Fumarate (Seroquel) 100 mg PO QHS [facility] Last Admin: 02/27/18 22:36 Dose: 100 mg Senna/Docusate Sodium (Senokot-S) 1 tab PO DAILY [facility] Last Admin: 02/28/18 08:50 Dose: 1 tab Simvastatin (Zocor) 40 mg PO QHS [facility] Last Admin: 02/27/18 22:36 Dose: 40 mg Vitamin D (Vitamin D) 2,000 units.intl PO DAILY [facility] Last Admin: 02/28/18 08:50 Dose: 2,000 [...] Diabetes mellitus type: type 2 Diabetes mellitus usp insulin use: without link trainer mechanic use (7) CHF exacerbation Status: Suspected Qualifiers: [...] Time (minutes) Time Spent w/Patient: [address] [facility] Glucose, Point of Careon Glucose mass conc 95 mg/dL Normal 80-110 [facility] Comment on above: Performed By: #### C BC, BMP, TROP, BNP, TSH ####[facility] [place] [address] Endocrinology Progress Noteo n 02-27-2018 Protein mass conc [facility] Patient: NATALIE GERBER [address] [facility] MR#: [id number] [place], [place] [address] : 1960 Ord[address] : Dept: PDOC Loc: [facility] Endocrinology Progress Note Service Dt: 02/27/18 Report#: [id number] Adm Dt: 02/24/18 Dis Dt: Endocrine Progress [...] 81 mg PO DAILY [facility] Last Admin: 02/26/18 09:08 Dose: 81 mg Carvedilol (Coreg) 6.25 mg PO DAILY [facility] Last Admin: 02/26/18 09:08 Dose: 6.25 mg Clopidogrel Bisulfate (Plavix) 75 mg PO DAILY [facility] Last Admin: 02/26/18 09:09 Dose: 75 mg Cyanocobalamin (Vitamin B-12) 1,000 mcg PO DAILY [facility] Last Admin: 02/26/18 09:09 Dose: 1,000 mcg Dextrose (Dextrose Syringe) 25 ml IV Q15M PRN PRN Reason: Hypoglycemia Dextrose (Dextrose Syringe) 50 ml IV Q15M PRN PRN Reason: Hypoglycemia Dextrose (Instant Glucose) 37.5 g PO Q15M PRN PRN Reason: Hypoglycemia Enoxaparin Sodium (Lovenox) 40 mg SC DAILY [facility] Last Admin: 02/26/18 09:09 Dose: 40 mg Furosemide (Lasix) 20 mg PO DAILY [facility] Last Admin: 02/26/18 09:08 Dose: 20 mg Gabapentin (Neurontin) 400 mg PO DAILY [facility] Last Admin: 02/26/18 09:08 Dose: 400 mg Glucagon (Glucagon) 1 mg IM Q15M PRN PRN Reason: Hypoglycemia Levothyroxine Sodium (Synthroid) 50 mcg PO QDSYNTH [facility] Last Admin: 02/26/18 05:03 Dose: 50 mcg Lisinopril (Zestril/Prinivil) 5 mg PO DAILY [facility] Last Admin: 02/26/18 09:08 Dose: 5 mg Melatonin (Melatonin) 3 mg PO QHS [facility] Last Admin: 02/26/18 21:33 Dose: 3 mg Metformin HCl (Glucophage Xr) 500 mg PO 0800,1700 [facility] Last Admin: 02/26/18 17:21 Dose: 500 mg Methylphenidate HCl (Ritalin) 40 mg PO DAILY [facility] Last Admin: 02/26/18 09:08 Dose: 40 mg Nitroglycerin (Nitrostat) 400 mcg SL Q5M PRN PRN Reason: Chest Pain Oxycodone/Acetaminophen (Percocet) 2 tab PO Q6 PRN PRN Reason: Pain-moderate (4-6/10) Last Admin: 02/27/18 04:00 Dose: 2 tab Pantoprazole Sodium (Protonix) 40 mg PO DAILY [facility] Last Admin: 02/26/18 09:08 Dose: 40 mg Quetiapine Fumarate (Seroquel) 100 mg PO DAILY [facility] Last Admin: 02/26/18 09:09 Dose: 100 mg Senna/Docusate Sodium (Senokot-S) 1 tab PO DAILY [facility] Last Admin: 02/26/18 09:09 Dose: 1 tab Simvastatin (Zocor) 40 mg PO QHS [facility] Last Admin: 02/26/18 21:33 Dose: 40 mg Vitamin D (Vitamin D) 2,000 units.intl PO DAILY [facility] Last Admin: 02/26/18 09:09 Dose: 2,000 [...] him if he has diabetes possible new isp-skwigolxko-vzberarrojmm of old cva. neurology service will be [...] a diagnosis of insulin resistance-metabolic syndrome Normal [facility] General Medical Progress Not clovis 02-27-2018 Protein mass conc [facility] Patient: NATALIE GERBER [address] MR#: [id number] [place], [place] [address] : 1960 Ord. : Dept: [facility] Loc: [id number] General Medical Progress Note Service Dt: 02/27/18 Report#: [id number] Adm Dt: 02/24/18 Dis Dt: General-Medical Progress [...] (Aspirin, "Baby" (Chewable)) 81 mg PO DAILY [facility] Last Admin: 02/26/18 09:08 Dose: 81 mg Carvedilol (Coreg) 6.25 mg PO DAILY [facility] Last Admin: 02/26/18 09:08 Dose: 6.25 mg Clopidogrel Bisulfate (Plavix) 75 mg PO DAILY [facility] Last Admin: 02/26/18 09:09 Dose: 75 mg Cyanocobalamin (Vitamin B-12) 1,000 mcg PO DAILY [facility] Last Admin: 02/26/18 09:09 Dose: 1,000 mcg Dextrose (Dextrose Syringe) 25 ml IV Q15M PRN PRN Reason: Hypoglycemia Dextrose (Dextrose Syringe) 50 ml IV Q15M PRN PRN Reason: Hypoglycemia Dextrose (Instant Glucose) 37.5 g PO Q15M PRN PRN Reason: Hypoglycemia Enoxaparin Sodium (Lovenox) 40 mg SC DAILY [facility] Last Admin: 02/26/18 09:09 Dose: 40 mg Furosemide (Lasix) 20 mg PO DAILY [facility] Last Admin: 02/26/18 09:08 Dose: 20 mg Gabapentin (Neurontin) 400 mg PO DAILY [facility] Last Admin: 02/26/18 09:08 Dose: 400 mg Glucagon (Glucagon) 1 mg IM Q15M PRN PRN Reason: Hypoglycemia Levothyroxine Sodium (Synthroid) 50 mcg PO QDSYNTH [facility] Last Admin: 02/26/18 05:03 Dose: 50 mcg Lisinopril (Zestril/Prinivil) 5 mg PO DAILY [facility] Last Admin: 02/26/18 09:08 Dose: 5 mg Melatonin (Melatonin) 3 mg PO QHS [facility] Last Admin: 02/26/18 21:33 Dose: 3 mg Metformin HCl (Glucophage Xr) 500 mg PO 0800,1700 [facility] Last Admin: 02/26/18 17:21 Dose: 500 mg Methylphenidate HCl (Ritalin) 40 mg PO DAILY [facility] Last Admin: 02/26/18 09:08 Dose: 40 mg Nitroglycerin (Nitrostat) 400 mcg SL Q5M PRN PRN Reason: Chest Pain Oxycodone/Acetaminophen (Percocet) 2 tab PO Q6 PRN PRN Reason: Pain-moderate (4-6/10) Last Admin: 02/27/18 04:00 Dose: 2 tab Pantoprazole Sodium (Protonix) 40 mg PO DAILY [facility] Last Admin: 02/26/18 09:08 Dose: 40 mg Quetiapine Fumarate (Seroquel) 100 mg PO DAILY [facility] Last Admin: 02/26/18 09:09 Dose: 100 mg Senna/Docusate Sodium (Senokot-S) 1 tab PO DAILY [facility] Last Admin: 02/26/18 09:09 Dose: 1 tab Simvastatin (Zocor) 40 mg PO QHS [facility] Last Admin: 02/26/18 21:33 Dose: 40 mg Vitamin D (Vitamin D) 2,000 units.intl PO DAILY [facility] Last Admin: 02/26/18 09:09 Dose: 2,000 units.intl Allergies/Adv: Allergies Allergy/AdvReac Type Severity Reaction Status Date / Time ketorolac Allergy Severe Hives Verified 08/02/16 23:25 nalbuphine Allergy Severe Shortness Verified 08/02/16 23:25 of Breath nalbuphine HCl * Allergy Unknown Verified 10/08/16 21:16 [From Ailrioin] - Assessment/Plan (1) Facial paresthesia Status: Acute (2) Arm paresthesia, left Status: Acute (3) DVT prophylaxis Status: Acute (4) Dyspnea Status: Acute (5) Morbid obesity Status: Acute (6) Diabetes Status: Chronic Qualifiers: Diabetes mellitus type: type 2 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 Glucose, Point of Careon Glucose mass conc 91 mg/dL Normal 80-110 [facility] Comment on above: Performed By: #### C BC, BMP, TROP, BNP, TSH ####[facility] [place] [address] [id number] C-Peptideon 02-26-2018 C-Peptide 4.8 ng/mL Normal 1.1-5.0 [facility] Comment on above: Result Comment: Perf orming Site: [place] [address] [place] [address] Performed By: #### C BC, BMP, TROP, BNP, TSH ####[facility] [place] [address] [id number] Endocrinology Progress Noteo n 02-26-2018 Protein mass conc [facility] Patient: NATALIE GERBER [address] [facility] MR#: [id number] [place], [place] [address] : 1960 Ord. : Dept: PDOC Loc: [facility] [place] [place]-1 Endocrinology Progress Note Service Dt: 02/26/18 Report#: [id number] Adm Dt: 02/24/18 Dis Dt: Endocrine Progress [...] (Aspirin, "Baby" (Chewable)) 81 mg PO DAILY [facility] Last Admin: 02/25/18 10:39 Dose: 81 mg Carvedilol (Coreg) 6.25 mg PO DAILY [facility] Last Admin: 02/25/18 10:38 Dose: 6.25 mg Clopidogrel Bisulfate (Plavix) 75 mg PO DAILY [facility] Last Admin: 02/25/18 10:39 Dose: 75 mg Cyanocobalamin (Vitamin B-12) 1,000 mcg PO DAILY [facility] Last Admin: 02/25/18 10:38 Dose: 1,000 mcg Dextrose (Dextrose Syringe) 25 ml IV Q15M PRN PRN Reason: Hypoglycemia Dextrose (Dextrose Syringe) 50 ml IV Q15M PRN PRN Reason: Hypoglycemia Dextrose (Instant Glucose) 37.5 g PO Q15M PRN PRN Reason: Hypoglycemia Enoxaparin Sodium (Lovenox) 40 mg SC DAILY [facility] Last Admin: 02/25/18 10:39 Dose: 40 mg Furosemide (Lasix) 20 mg PO DAILY [facility] Last Admin: 02/25/18 10:38 Dose: 20 mg Gabapentin (Neurontin) 400 mg PO DAILY [facility] Last Admin: 02/25/18 10:45 Dose: 400 mg Glucagon (Glucagon) 1 mg IM Q15M PRN PRN Reason: Hypoglycemia Levothyroxine Sodium (Synthroid) 50 mcg PO QDSYNTH [facility] Last Admin: 02/26/18 05:03 Dose: 50 mcg Lisinopril (Zestril/Prinivil) 5 mg PO DAILY [facility] Last Admin: 02/25/18 10:39 Dose: 5 mg Melatonin (Melatonin) 3 mg PO QHS [facility] Last Admin: 02/25/18 21:26 Dose: Not Given Methylphenidate HCl (Ritalin) 40 mg PO DAILY [facility] Last Admin: 02/25/18 10:40 Dose: 40 mg Nitroglycerin (Nitrostat) 400 mcg SL Q5M PRN PRN Reason: Chest Pain Oxycodone/Acetaminophen (Percocet) 2 tab PO Q6 PRN PRN Reason: Pain-moderate (4-6/10) Last Admin: 02/26/18 03:27 Dose: 2 tab Pantoprazole Sodium (Protonix) 40 mg PO DAILY [facility] Last Admin: 02/25/18 10:39 Dose: 40 mg Quetiapine Fumarate (Seroquel) 100 mg PO DAILY [facility] Last Admin: 02/25/18 10:38 Dose: 100 mg Senna/Docusate Sodium (Senokot-S) 1 tab PO DAILY [facility] Last Admin: 02/25/18 10:38 Dose: 1 tab Simvastatin (Zocor) 40 mg PO QHS [facility] Last Admin: 02/25/18 21:29 Dose: 40 mg Vitamin D (Vitamin D) 2,000 units.intl PO DAILY [facility] Last Admin: 02/25/18 10:39 Dose: 2,000 [...] him if he has diabetes possible new [id number] of old cva. neurology service will be [...] of PPI. will monitor magnesium levels. Normal [facility] Neurology Progress Noteon Protein mass conc [facility] Patient: NATALIE GERBER [address] MR#: [id number] [place], [place] [address] : 1960 Ord. : Dept: PDOC Loc: 934-1 Neurology Progress Note Service Dt: 02/26/18 Report#: [id number] Adm Dt: 02/24/18 Dis Dt: Neurology Progress [...] (Aspirin, "Baby" (Chewable)) 81 mg PO DAILY [facility] Last Admin: 02/26/18 09:08 Dose: 81 mg Carvedilol (Coreg) 6.25 mg PO DAILY [facility] Last Admin: 02/26/18 09:08 Dose: 6.25 mg Clopidogrel Bisulfate (Plavix) 75 mg PO DAILY [facility] Last Admin: 02/26/18 09:09 Dose: 75 mg Cyanocobalamin (Vitamin B-12) 1,000 mcg PO DAILY [facility] Last Admin: 02/26/18 09:09 Dose: 1,000 mcg Dextrose (Dextrose Syringe) 25 ml IV Q15M PRN PRN Reason: Hypoglycemia Dextrose (Dextrose Syringe) 50 ml IV Q15M PRN PRN Reason: Hypoglycemia Dextrose (Instant Glucose) 37.5 g PO Q15M PRN PRN Reason: Hypoglycemia Enoxaparin Sodium (Lovenox) 40 mg SC DAILY [facility] Last Admin: 02/26/18 09:09 Dose: 40 mg Furosemide (Lasix) 20 mg PO DAILY [facility] Last Admin: 02/26/18 09:08 Dose: 20 mg Gabapentin (Neurontin) 400 mg PO DAILY [facility] Last Admin: 02/26/18 09:08 Dose: 400 mg Glucagon (Glucagon) 1 mg IM Q15M PRN PRN Reason: Hypoglycemia Levothyroxine Sodium (Synthroid) 50 mcg PO QDSYNTH [facility] Last Admin: 02/26/18 05:03 Dose: 50 mcg Lisinopril (Zestril/Prinivil) 5 mg PO DAILY [facility] Last Admin: 02/26/18 09:08 Dose: 5 mg Melatonin (Melatonin) 3 mg PO QHS [facility] Last Admin: 02/25/18 21:26 Dose: Not Given Metformin HCl (Glucophage Xr) 500 mg PO 0800,1700 [facility] Last Admin: 02/26/18 09:09 Dose: 500 mg Methylphenidate HCl (Ritalin) 40 mg PO DAILY [facility] Last Admin: 02/26/18 09:08 Dose: 40 mg Nitroglycerin (Nitrostat) 400 mcg SL Q5M PRN PRN Reason: Chest Pain Oxycodone/Acetaminophen (Percocet) 2 tab PO Q6 PRN PRN Reason: Pain-moderate (4-6/10) Last Admin: 02/26/18 15:30 Dose: 2 tab Pantoprazole Sodium (Protonix) 40 mg PO DAILY [facility] Last Admin: 02/26/18 09:08 Dose: 40 mg Quetiapine Fumarate (Seroquel) 100 mg PO DAILY [facility] Last Admin: 02/26/18 09:09 Dose: 100 mg Senna/Docusate Sodium (Senokot-S) 1 tab PO DAILY [facility] Last Admin: 02/26/18 09:09 Dose: 1 tab Simvastatin (Zocor) 40 mg PO QHS [facility] Last Admin: 02/25/18 21:29 Dose: 40 mg Vitamin D (Vitamin D) 2,000 units.intl PO DAILY [facility] Last Admin: 02/26/18 09:09 Dose: 2,000 [...] Time (minutes) Time Spent w/Patient: [address] [facility] Albumin/Creatinine Ratio, Ur on 02-25-2018 Albumin/Creatinine Ratio 10.000 mg/g Normal [facility] Comment on above: Order Comment: Comme nt please do today Performed By: #### C BC, BMP, TROP, BNP, TSH ####[facility] [place] [address] Creatinine, Urine Random $ 48.8 mg/dL Normal [facility] Comment on above: Order Comment: Comme nt please do today Performed By: #### C BC, BMP, TROP, BNP, TSH ####[address] [id number] Ur Microalbumin, Random < 5.[address] [facility] Comment on above: Order Comment: Comme nt please do today Performed By: #### C BC, BMP, TROP, BNP, TSH ####[facility] [place] [address] Carotid Duplex Scanon 2017 Carotid Duplex Scan [facility] , [address] [place] [address] and Vascular Lab Report Carotid Artery Duplex Ultrasound Patient Name: NATALIE GERBER Study Date: 02/25/2018 Reading Physician: ROSLYN Acuna D.O. MRN/PID: [id number] Referring Physician: JOSE ESTES Abrluigi Accession/Order#: [id number] PCP: Date of : 1960 CC Report to: Do Hernandez DO Gender: M Technologist: Joan Lam Admission Status: Inpatient Technologist 2: Facility Performed: [facility] Location Performed: [facility] Diagnosis/ICD: G45.9 - Transient cerebral ischemic attack, unspecified Indication: Hemiparesis, Hemiplegia Procedure/CPT: 89313 - Cerebrovacular Carotid Duplex scan complete Patient [...] 0.9 0.9 ROSLYN Acuna D.O. Final Normal [facility] Complete Blood Count w/diff $$on 02-25-2018 Basophils Auto #/vol (Bld) 0.0 10 /uL Low 0.04-0.9 [facility] Comment on above: Performed By: #### C BC, BMP, TROP, BNP, TSH ####[address] [address] Basophils/100 WBC Auto (Bld) 1 % Normal 0-1 [facility] Comment on above: Performed By: #### C BC, BMP, TROP, BNP, TSH ####[address] [address] Eosinophils Auto #/vol (Bld) 0.2 10 3/uL Normal 0.03-0.6 [facility] Comment on above: Performed By: #### C BC, BMP, TROP, BNP, TSH ####[address] [address] Eosinophils/100 WBC Auto (Bld) 2 % Normal 0-3 [facility] Comment on above: Performed By: #### C BC, BMP, TROP, BNP, TSH ####[address] [address] Erythrocyte distribution width Auto Ratio (RBC) 14.0 % Normal 11.5-14.5 [facility] Comment on above: Performed By: #### C BC, BMP, TROP, BNP, TSH ####[address] [address] Hematocrit Auto Volume Fraction (Bld) 33.9 % Low 39-50 [facility] Comment on above: Performed By: #### C BC, BMP, TROP, BNP, TSH ####[address] [place] [address] Hemoglobin mass conc (Bld) 10.5 g/dL Low 13.0-17.3 [facility] Comment on above: Performed By: #### C BC, BMP, TROP, BNP, TSH ####[address] [address] Immature Gran# (Auto) 0.1 10 3/uL Normal [facility] Comment on above: Performed By: #### C BC, BMP, TROP, BNP, TSH ####[address] [address] Immature granulocytes #/vol (Bld) 0.9 % Normal 0.0-1.2 [facility] Comment on above: Performed By: #### C BC, BMP, TROP, BNP, TSH ####[address] [address] Lymphocytes Auto #/vol (Bld) 1.4 10 3/uL Normal 1-3.5 [facility] Comment on above: Performed By: #### C BC, BMP, TROP, BNP, TSH ####[address] [address] Lymphocytes/100 WBC Auto (Bld) 22 % Low 24-44 [facility] Comment on above: Performed By: #### C BC, BMP, TROP, BNP, TSH ####[address] [address] MCH Auto Entitic mass (RBC) 27.9 pg Normal 27-34 [facility] Comment on above: Performed By: #### C BC, BMP, TROP, BNP, TSH ####[address] [address] MCH Auto Entitic mass (RBC) 31.0 g/dL Low 33-37 [facility] Comment on above: Performed By: #### C BC, BMP, TROP, BNP, TSH ####[address] [address] MCV Auto Entitic volume (RBC) 89.9 fL Normal 80-100 [facility] Comment on above: Performed By: #### C BC, BMP, TROP, BNP, TSH ####[address] [address] Monocytes Auto #/vol (Bld) 0.4 10 3/uL Normal 0.04-0.9 [facility] Comment on above: Performed By: #### C BC, BMP, TROP, BNP, TSH ####[address] [address] Monocytes/100 WBC Auto (Bld) 7 % Normal 1-8 [facility] Comment on above: Performed By: #### C BC, BMP, TROP, BNP, TSH ####[address] [address] Neutrophils Auto #/vol (Bld) 4.3 10 3/uL Normal 1.8-7.0 [facility] Comment on above: Performed By: #### C BC, BMP, TROP, BNP, TSH ####[address] [address] Neutrophils/100 WBC Auto (Bld) 67 % Normal 42-76 [facility] Comment on above: Performed By: #### C BC, BMP, TROP, BNP, TSH ####[address] [address] Nucleated RBC/100 WBC Ratio (Bld) 0.0 % Normal 0.0-0.2 [facility] Comment on above: Performed By: #### C BC, BMP, TROP, BNP, TSH ####[address] [address] Platelet mean volume Auto Entitic volume (Bld) 9.6 fL Normal 7.4-10.4 [facility] Comment on above: Performed By: #### C BC, BMP, TROP, BNP, TSH ####[facility] [place] [address] Platelets Auto #/vol (Bld) 187 10 3/uL Normal 150-400 [facility] Comment on above: Performed By: #### C BC, BMP, TROP, BNP, TSH ####[address] [address] RBC Auto #/vol (Bld) 3.77 10 6/uL Low 4.5-6.0 [facility] Comment on above: Performed By: #### C BC, BMP, TROP, BNP, TSH ####[address] [address] WBC Auto #/vol (Bld) 6.4 10 3/uL Normal 4.0-11.0 [facility] Comment on above: Performed By: #### C BC, BMP, TROP, BNP, TSH ####[address] [address] Comprehensive Metabolic Pane [place] 02-25-2018 Albumin mass conc 3.3 g/dL Low 3.4-5.0 [facility] Comment on above: Performed By: #### C BC, BMP, TROP, BNP, TSH ####[address] [address] ALP enzyme act/vol 109 U/L Normal 33-120 [facility] Comment on above: Result Comment: Plea se note new reference range as of September. Performed By: #### C BC, BMP, TROP, BNP, TSH ####[address] [address] ALT enzyme act/vol 8 U/L Normal 4-52 [facility] Comment on above: Result Comment: Plea se note new reference range as of September. Performed By: #### C BC, BMP, TROP, BNP, TSH ####[address] [place] [address] Anion gap 3 molar conc 11.3 mmol/L Normal 10-20 [facility] Comment on above: Performed By: #### C BC, BMP, TROP, BNP, TSH ####[facility] [place] [address] AST enzyme act/vol 15 U/L Normal 9-39 [facility] Comment on above: Result Comment: Plea se note new reference range as of September. Performed By: #### C BC, BMP, TROP, BNP, TSH ####[address] [address] Bilirubin Ql (U) 0.4 mg/dL Normal 0.0-1.2 [facility] Comment on above: Performed By: #### C BC, BMP, TROP, BNP, TSH ####[address] [address] Calcium mass conc 8.6 mg/dL Normal 8.6-10.3 [facility] Comment on above: Result Comment: Plea se note new reference range as of September. Performed By: #### C BC, BMP, TROP, BNP, TSH ####[address] [address] Chloride molar conc 106 mmol/L Normal 98-107 [facility] Comment on above: Performed By: #### C BC, BMP, TROP, BNP, TSH ####[address] [address] CO2 molar conc 27 mmol/L Normal 21-32 [facility] Comment on above: Performed By: #### C BC, BMP, TROP, BNP, TSH ####[address] [address] Creatinine mass conc 0.62 mg/dL Normal 0.50-1.30 [facility] Comment on above: Result Comment: Plea se note new reference range as of September. Performed By: #### C BC, BMP, TROP, BNP, TSH ####[facility] [place] [address] Estimated Creatinine Clearance 91 mL/min Low 94-145 [facility] Comment on above: Performed By: #### C BC, BMP, TROP, BNP, TSH ####[address] [address] GFR () >[address] [facility] Comment on above: Performed By: #### C BC, BMP, TROP, BNP, TSH ####[address] [address] GFR (Non ) >[address] [facility] Comment on above: Result Comment: eGFR Units of measure: mL/min/1.73 m 2 Performed By: #### C BC, BMP, TROP, BNP, TSH ####[address] [address] Glucose mass conc 105 mg/dL High 74-99 [facility] Comment on above: Performed By: #### C BC, BMP, TROP, BNP, TSH ####[address] [address] Potassium molar conc 4.3 mmol/L Normal 3.5-5.3 [facility] Comment on above: Performed By: #### C BC, BMP, TROP, BNP, TSH ####[address] [address] Protein mass conc 5.8 g/dL Low 6.4-8.2 [facility] Comment on above: Performed By: #### C BC, BMP, TROP, BNP, TSH ####[address] [address] Sodium molar conc 140 mmol/L Normal 136-145 [facility] Comment on above: Performed By: #### C BC, BMP, TROP, BNP, TSH ####[facility] [place] [address] Urea nitrogen mass conc (Bld) 13 mg/dL Normal 6-23 [facility] Comment on above: Result Comment: Spring burns note new reference range as of September. Performed By: #### C BC, BMP, TROP, BNP, TSH ####[facility] [place] [address] Consultation Reporton 2017 Consultation Report [facility] Patient: NATALIE GERBER [address] [facility] MR#: [id number] [place], [place] [address] : 1960 [address]: Dept: PDOC Loc: 9W 934-1 Consultation Service Dt: 02/25/18 Report#: [id number] Adm Dt: 02/24/18 Dis Dt: Initial Physician Consultation - Consulting Specialty Consulting Specialty: Cardiology - Consultation Date of Consultation: 02/25/18 Requesting Physician: Marisela Michel Reason for Consult: LE swelling and MAGAÑA - PCP/Chief Complaint Primary Care Physician: Marisela Michel Chief Complaint: LUE and facial numbness [...] Artery Disease/CAD, Cardiac Cath, CHF, Heart Attack ([place]), High Cholesterol, HTN Respiratory: Pulmonary Embolism/PE, Pneumonia [...] of Substances/Recreational Drugs: No Comment: Lives in [facility] with his . 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 - Family Health [...] (Aspirin, "Baby" (Chewable)) 81 mg PO DAILY [facility] Last Admin: 02/27/18 09:57 Dose: 81 mg Carvedilol (Coreg) 6.25 mg PO DAILY [facility] Last Admin: 02/27/18 12:28 Dose: Not Given Clopidogrel Bisulfate (Plavix) 75 mg PO DAILY [facility] Last Admin: 02/27/18 09:57 Dose: 75 mg Cyanocobalamin (Vitamin B-12) 1,000 mcg PO DAILY [facility] Last Admin: 02/27/18 09:57 Dose: 1,000 mcg Dextrose (Dextrose Syringe) 25 ml IV Q15M PRN PRN Reason: Hypoglycemia Dextrose (Dextrose Syringe) 50 ml IV Q15M PRN PRN Reason: Hypoglycemia Dextrose (Instant Glucose) 37.5 g PO Q15M PRN PRN Reason: Hypoglycemia Enoxaparin Sodium (Lovenox) 40 mg SC DAILY [facility] Last Admin: 02/27/18 09:55 Dose: 40 mg Furosemide (Lasix) 20 mg PO DAILY [facility] Last Admin: 02/27/18 09:57 Dose: 20 mg Gabapentin (Neurontin) 400 mg PO DAILY [facility] Last Admin: 02/27/18 09:55 Dose: 400 mg Glucagon (Glucagon) 1 mg IM Q15M PRN PRN Reason: Hypoglycemia Levothyroxine Sodium (Synthroid) 50 mcg PO QDSYNTH [facility] Last Admin: 02/27/18 09:57 Dose: 50 mcg Lisinopril (Zestril/Prinivil) 5 mg PO DAILY [facility] Last Admin: 02/27/18 12:28 Dose: Not Given Melatonin (Melatonin) 3 mg PO QHS [facility] Last Admin: 02/26/18 21:33 Dose: 3 mg Metformin HCl (Glucophage Xr) 500 mg PO 0800,1700 [facility] Last Admin: 02/27/18 09:57 Dose: Not Given Methylphenidate HCl (Ritalin) 40 mg PO DAILY [facility] Last Admin: 02/27/18 09:55 Dose: 40 mg Nitroglycerin (Nitrostat) 400 mcg SL Q5M PRN PRN Reason: Chest Pain Oxycodone/Acetaminophen (Percocet) 2 tab PO Q6 PRN PRN Reason: Pain-moderate (4-6/10) Last Admin: 02/27/18 10:00 Dose: 2 tab Pantoprazole Sodium (Protonix) 40 mg PO DAILY [facility] Last Admin: 02/27/18 09:56 Dose: 40 mg Quetiapine Fumarate (Seroquel) 100 mg PO DAILY [facility] Last Admin: 02/27/18 09:53 Dose: Not Given Senna/Docusate Sodium (Senokot-S) 1 tab PO DAILY [facility] Last Admin: 02/27/18 09:56 Dose: 1 tab Simvastatin (Zocor) 40 mg PO QHS [facility] Last Admin: 02/26/18 21:33 Dose: 40 mg Vitamin D (Vitamin D) 2,000 units.intl PO DAILY [facility] Last Admin: 02/27/18 09:57 Dose: 2,000 units.intl Current Medications Acetaminophen (Tylenol) 650 mg PO Q4 PRN PRN Reason: Pain (mild)/Temp above 38.3 C Alprazolam (Xanax) 0.25 mg PO TID PRN PRN Reason: Anxiety Last Admin: 02/24/18 21:01 Dose: 0.25 mg Aspirin (Aspirin, "Baby" (Chewable)) 81 mg PO DAILY [facility] Last Admin: 02/25/18 10:39 Dose: 81 mg Carvedilol (Coreg) 6.25 mg PO DAILY [facility] Last Admin: 02/25/18 10:38 Dose: 6.25 mg Clopidogrel Bisulfate (Plavix) 75 mg PO DAILY [facility] Last Admin: 02/25/18 10:39 Dose: 75 mg Cyanocobalamin (Vitamin B-12) 1,000 mcg PO DAILY [facility] Last Admin: 02/25/18 10:38 Dose: 1,000 mcg Dextrose (Dextrose Syringe) 25 ml IV Q15M PRN PRN Reason: Hypoglycemia Dextrose (Dextrose Syringe) 50 ml IV Q15M PRN PRN Reason: Hypoglycemia Dextrose (Instant Glucose) 37.5 g PO Q15M PRN PRN Reason: Hypoglycemia Enoxaparin Sodium (Lovenox) 40 mg SC DAILY [facility] Last Admin: 02/25/18 10:39 Dose: 40 mg Furosemide (Lasix) 20 mg PO DAILY [facility] Last Admin: 02/25/18 10:38 Dose: 20 mg Gabapentin (Neurontin) 400 mg PO DAILY [facility] Last Admin: 02/25/18 10:45 Dose: 400 mg Glucagon (Glucagon) 1 mg IM Q15M PRN PRN Reason: Hypoglycemia Levothyroxine Sodium (Synthroid) 50 mcg PO QDSYNTH [facility] Last Admin: 02/25/18 05:47 Dose: 50 mcg Lisinopril (Zestril/Prinivil) 5 mg PO DAILY [facility] Last Admin: 02/25/18 10:39 Dose: 5 mg Melatonin (Melatonin) 3 mg PO QHS [facility] Last Admin: 02/24/18 21:01 Dose: 3 mg Methylphenidate HCl (Ritalin) 40 mg PO DAILY [facility] Last Admin: 02/25/18 10:40 Dose: 40 mg Nitroglycerin (Nitrostat) 400 mcg SL Q5M PRN PRN Reason: Chest Pain Oxycodone/Acetaminophen (Percocet) 2 tab PO Q6 PRN PRN Reason: Pain-moderate (4-6/10) Last Admin: 02/25/18 06:12 Dose: 2 tab Pantoprazole Sodium (Protonix) 40 mg PO DAILY [facility] Last Admin: 02/25/18 10:39 Dose: 40 mg Quetiapine Fumarate (Seroquel) 100 mg PO DAILY [facility] Last Admin: 02/25/18 10:38 Dose: 100 mg Senna/Docusate Sodium (Senokot-S) 1 tab PO DAILY [facility] Last Admin: 02/25/18 10:38 Dose: 1 tab Simvastatin (Zocor) 40 mg PO QHS [facility] Last Admin: 02/24/18 21:01 Dose: 40 mg Vitamin D (Vitamin D) 2,000 units.intl PO DAILY [facility] Last Admin: 02/25/18 10:39 Dose: 2,000 [...] (Auto) 67 Lymph % (Auto) 22 L Lamb % (Auto) 7 Eos % (Auto) 2 Baso % (Auto) 1 Nucleat RBC Rel Count 0.0 Immature Gran # (Auto) 0.1 Neut # (Auto) 4.3 Lymph # (Auto) 1.4 Lamb # (Auto) 0.4 Eos # (Auto) 0.2 [...] Color Urine Clarity Urine pH Ur Specific [place] Urine Protein Urine Glucose (UA) Urine Ketones [...] (Auto) Neut % (Auto) Lymph % (Auto) Lamb % (Auto) Eos % (Auto) Baso % (Auto) Nucleat RBC Rel Count Immature Gran # (Auto) Neut # (Auto) Lymph # (Auto) Lamb # (Auto) Eos # (Auto) Baso # [...] Clarity Clear Urine pH 5.0 Ur Specific [place] 1.010 Urine Protein Negative Urine Glucose (UA) [...] Diabetes mellitus type: type 2 Diabetes mellitus usp insulin use: without usp use (4) BMI 50.0-59.9, adult Status: Chronic [...] evidence of CHF 2.) Morbid obesity Normal [facility] Consultation Report [facility] Patient: NATALIE GERBER [address] MR#: [id number] [place], [place] [id number] : 1960 [address]: Dept: PDOC Loc: [facility] [place]-1 Consultation Service Dt: 02/25/18 Report#: [id number] Adm Dt: 02/24/18 Dis Dt: Initial Physician Consultation - Consulting Specialty Consulting Specialty: Endocrinology - Consultation Date of Consultation: 02/25/18 Requesting Physician: Marisela Michel Reason for Consult: possible diabetes or thyroid disease. - PCP/Chief Complaint Primary Care Physician: Marisela Michel Chief Complaint: LUE and facial numbness - History of Present Illness HPI: the patient has been seen and examined at around 8;00 in the morning. the patient's 57-year-old who is a detention rather than from [place]. the patient has been admitted with worsening [...] did not have a good workup at [facility] and he was told that he does not have diabetes. actually he was surprised that i have been talking to him about that. past medical history coronary artery vxxkfsf-wusxug-hhkkdviqgo heart failure. hyperlipidemia hypertension history of cva-stroke [...] weight gain. social history patient lives at detention. apparently his is also at the same detention. - Past Medical History Neurological: CVA/Stroke, TIA/Transient Ischemic Attack(s) Other Neurological Hx: TPA 3 TIMES ADMINISTERED ENT/Eye: Eye problem Other ENT/Eye Hx: wears glassess Cardiac: Angioplasty, Coronary Artery Disease/CAD, Cardiac Cath, CHF, Heart Attack ([place]), High Cholesterol, HTN Respiratory: Pulmonary Embolism/PE, Pneumonia [...] of Substances/Recreational Drugs: No Comment: Lives in [facility] with his . 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 - Family Health [...] (Aspirin, "Baby" (Chewable)) 81 mg PO DAILY [facility] Carvedilol (Coreg) 6.25 mg PO DAILY [facility] Clopidogrel Bisulfate (Plavix) 75 mg PO DAILY [facility] Cyanocobalamin (Vitamin B-12) 1,000 mcg PO DAILY [facility] Dextrose (Dextrose Syringe) 25 ml IV Q15M PRN PRN Reason: Hypoglycemia Dextrose (Dextrose Syringe) 50 ml IV Q15M PRN PRN Reason: Hypoglycemia Dextrose (Instant Glucose) 37.5 g PO Q15M PRN PRN Reason: Hypoglycemia Enoxaparin Sodium (Lovenox) 40 mg SC DAILY [facility] Furosemide (Lasix) 20 mg PO DAILY [facility] Gabapentin (Neurontin) 400 mg PO DAILY [facility] Glucagon (Glucagon) 1 mg IM Q15M PRN PRN Reason: Hypoglycemia Levothyroxine Sodium (Synthroid) [facility] Last Admin: 02/25/18 05:47 Dose: 50 mcg Lisinopril (Zestril/Prinivil) 5 mg PO DAILY [facility] Melatonin (Melatonin) 3 mg PO QHS [facility] Last Admin: 02/24/18 21:01 Dose: 3 mg Nitroglycerin (Nitrostat) 400 mcg SL Q5M PRN PRN Reason: Chest Pain Non-Formulary Medication (Dextroamphetamine/Amphetami ne [Adderall 20 Mg Tablet]) 20 mg PO DAILY [facility] Oxycodone/Acetaminophen (Percocet) 2 tab PO Q6 PRN PRN Reason: Pain-moderate (4-6/10) Last Admin: 02/25/18 06:12 Dose: 2 tab Pantoprazole Sodium (Protonix) 40 mg PO DAILY [facility] Quetiapine Fumarate (Seroquel) 100 mg PO DAILY [facility] Senna/Docusate Sodium (Senokot-S) 1 tab PO DAILY [facility] Simvastatin (Zocor) 40 mg PO QHS [facility] Last Admin: 02/24/18 21:01 Dose: 40 mg Vitamin D (Vitamin D) 2,000 units.intl PO DAILY [facility] - Diagnostic Studies Lab Data: Labs (last 24 hrs) 02/25/18 02/24/18 02/24/18 07:10 16:40 12:25 WBC 6.4 RBC 3.77 L Hgb 10.5 L Hct 33.9 L MCV 89.9 MCH 27.9 MCHC 31.0 L RDW 14.0 Plt Count 187 MPV 9.6 Immature Gran % (Auto) 0.9 Neut % (Auto) 67 Lymph % (Auto) 22 L Lamb % (Auto) 7 Eos % (Auto) 2 Baso % (Auto) 1 Nucleat RBC Rel Count 0.0 Immature Gran # (Auto) 0.1 Neut # (Auto) 4.3 Lymph # (Auto) 1.4 Lamb # (Auto) 0.4 Eos # (Auto) 0.2 [...] Clarity Clear Urine pH 5.0 Ur Specific Sheffield 1.010 Urine Protein Negative Urine Glucose (UA) [...] (Auto) Neut % (Auto) Lymph % (Auto) Lamb % (Auto) Eos % (Auto) Baso % (Auto) Nucleat RBC Rel Count Immature Gran # (Auto) Neut # (Auto) Lymph # (Auto) Lamb # (Auto) Eos # (Auto) Baso # [...] Color Urine Clarity Urine pH Ur Specific [place] Urine Protein Urine Glucose (UA) Urine Ketones [...] him if he has diabetes possible new mwq-ylbghfvans-xuwtkchmcboq of old cva. neurology service will be [...] of PPI. will monitor magnesium levels. Normal [facility] Free T3on 02-25-2018 T3 free mass conc 3.1 pg/mL Normal 1.8-4.2 [facility] Comment on above: Result Comment: Perf [facility] Site: [place] [address] [place] [address] Performed By: #### C BC, BMP, TROP, BNP, TSH ####[facility] [place] [address] Free T4on 02-25-2018 T4 free mass conc 0.8 ng/dL Normal 0.78-1.48 [facility] Comment on above: Performed By: #### C BC, BMP, TROP, BNP, TSH ####[address] [address] General Medical Progress Not clovis 02-25-2018 Protein mass conc [facility] Patient: NATALIE GERBER [address] [facility] MR#: [id number] [place], [place] [address] : 1960 [address]: Dept: PDOC Loc: 9 [phone] General Medical Progress Note Service Dt: 02/25/18 Report#: [id number] Adm Dt: 02/24/18 Dis Dt: General-Medical Progress [...] (Aspirin, "Baby" (Chewable)) 81 mg PO DAILY [facility] Last Admin: 02/25/18 10:39 Dose: 81 mg Carvedilol (Coreg) 6.25 mg PO DAILY [facility] Last Admin: 02/25/18 10:38 Dose: 6.25 mg Clopidogrel Bisulfate (Plavix) 75 mg PO DAILY [facility] Last Admin: 02/25/18 10:39 Dose: 75 mg Cyanocobalamin (Vitamin B-12) 1,000 mcg PO DAILY [facility] Last Admin: 02/25/18 10:38 Dose: 1,000 mcg Dextrose (Dextrose Syringe) 25 ml IV Q15M PRN PRN Reason: Hypoglycemia Dextrose (Dextrose Syringe) 50 ml IV Q15M PRN PRN Reason: Hypoglycemia Dextrose (Instant Glucose) 37.5 g PO Q15M PRN PRN Reason: Hypoglycemia Enoxaparin Sodium (Lovenox) 40 mg SC DAILY [facility] Last Admin: 02/25/18 10:39 Dose: 40 mg Furosemide (Lasix) 20 mg PO DAILY [facility] Last Admin: 02/25/18 10:38 Dose: 20 mg Gabapentin (Neurontin) 400 mg PO DAILY [facility] Last Admin: 02/25/18 10:45 Dose: 400 mg Glucagon (Glucagon) 1 mg IM Q15M PRN PRN Reason: Hypoglycemia Levothyroxine Sodium (Synthroid) 50 mcg PO QDSYNTH [facility] Last Admin: 02/25/18 05:47 Dose: 50 mcg Lisinopril (Zestril/Prinivil) 5 mg PO DAILY [facility] Last Admin: 02/25/18 10:39 Dose: 5 mg Melatonin (Melatonin) 3 mg PO QHS [facility] Last Admin: 02/24/18 21:01 Dose: 3 mg Methylphenidate HCl (Ritalin) 40 mg PO DAILY [facility] Last Admin: 02/25/18 10:40 Dose: 40 mg Nitroglycerin (Nitrostat) 400 mcg SL Q5M PRN PRN Reason: Chest Pain Oxycodone/Acetaminophen (Percocet) 2 tab PO Q6 PRN PRN Reason: Pain-moderate (4-6/10) Last Admin: 02/25/18 06:12 Dose: 2 tab Pantoprazole Sodium (Protonix) 40 mg PO DAILY [facility] Last Admin: 02/25/18 10:39 Dose: 40 mg Quetiapine Fumarate (Seroquel) 100 mg PO DAILY [facility] Last Admin: 02/25/18 10:38 Dose: 100 mg Senna/Docusate Sodium (Senokot-S) 1 tab PO DAILY [facility] Last Admin: 02/25/18 10:38 Dose: 1 tab Simvastatin (Zocor) 40 mg PO QHS [facility] Last Admin: 02/24/18 21:01 Dose: 40 mg Vitamin D (Vitamin D) 2,000 units.intl PO DAILY [facility] Last Admin: 02/25/18 10:39 Dose: 2,000 units.intl Allergies/Adv: Allergies Allergy/AdvReac Type Severity Reaction Status Date / Time ketorolac Allergy Severe Hives Verified 08/02/16 23:25 nalbuphine Allergy Severe Shortness Verified 08/02/16 23:25 of Breath nalbuphine HCl * Allergy Unknown Verified 10/08/16 21:16 [From Nuin] - Assessment/Plan (1) Facial paresthesia Status: Acute (2) Arm paresthesia, left Status: Acute (3) DVT prophylaxis Status: Acute (4) Dyspnea Status: Acute (5) Morbid obesity Status: Acute (6) Diabetes Status: Chronic Qualifiers: Diabetes mellitus type: type 2 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 Hemoglobin A1con 02-25-2018 Hemoglobin A1c/Hemoglobin.total mass fraction (Bld) 6.1 % Normal 4.4-6.3 [facility] Comment on above: Performed By: #### C BC, BMP, TROP, BNP, TSH ####[facility] [place] [address] Lipid Profileon 02-25-2018 Cholesterol in HDL mass conc 27.1 mg/dL Normal 39-96 [facility] Comment on above: Result Comment: Refe rentamara ranges:Age Very Low Low Normal High0-19y: <35 <40 40-4520-24y: <40 >45>24y: <40 40-60 >60 Performed By: #### C BC, BMP, TROP, BNP, TSH ####[facility] [place] [address] Cholesterol in LDL mass conc 50.9 mg/dL Normal 0-130 [facility] Comment on above: Performed By: #### C BC, BMP, TROP, BNP, TSH ####[facility] [place] [address] Cholesterol mass conc 131 mg/dL Normal 0-200 [facility] Comment on above: Result Comment: Refe rence range:Age: Desirable Borderline High High0-19y: 0-169 170-199 >=46788-79w: 0-189 190-224 >=225>24y: 0-199 200-239 >=240All ranges based on fasting samples Performed By: #### C BC, BMP, TROP, BNP, TSH ####[facility] [place], [place] [id number] Cholesterol.total/Cho lesterol in HDL mass ratio 4.83 {ratio} Normal 0-6.9 [facility] Comment on above: Performed By: #### C BC, BMP, TROP, BNP, TSH ####[address] [id number] Triglycerides, Serum 266 mg/dL Normal 30-150 [facility] Comment on above: Result Comment: Refe rence range:Age Desirable Borderline High Very Nxpu9d-23s: 48-99960h-1q: 0-74 75-99 >=83090-87p: 0-89 90-129 >=84178-83d: 0-114 115-149 >=150>24y: 0-149 150-199 200-499 >=500 Performed By: #### C BC, BMP, TROP, BNP, TSH ####[facility] [place] [address] NR MR CERVICAL WO/W CONTRAST on 02-25-2018 NR MR CERVICAL WO/W CONTRAST Patient Name: NATALIE GERBER STUDY: NR MR CERVICAL WO/W CONTRAST; 02/25/2018 8:10 pm INDICATION: stroke. COMPARISON: None. ACCESSION NUMBER(S): [id number] ORDERING CLINICIAN: MARISELA MICHEL TECHNIQUE: Sagittal T1, T2, STIR, axial T1 [...] at C2-3 and C3-4. Electronically signed by: VICKIE MILES DO [facility] NR MRA HEAD W/O Con 02-25-20 18 NR MRA HEAD W/O C Patient Name: NATALIE GERBER STUDY: NR MRI BRAIN W/WO CONTRAST; NR MRA HEAD W/O C; 02/25/2018 8:07 pm INDICATION: stroke. MS workup. COMPARISON: Head CT February 24, 2018 and MRI of the brain October 07, 2016. ACCESSION NUMBER(S): [id number]; [id number] ORDERING CLINICIAN: MARISELA MICHEL TECHNIQUE: Axial T2, FLAIR, DWI, gradient echo T2 and T1 weighted images of brain were acquired. Post contrast T1 weighted images were acquired after administration of 20 mL MultiHance intravenous contrast administration. Volumetric FLAIR images were also acquired and multiplanar reformats were submitted for review. [id number] MRA of the head was performed. The [...] head. Electronically signed by: DO Teagan [facility] NR MRI BRAIN W/WO CONTRASTon 02-25-2018 NR MRI BRAIN W/WO CONTRAST Patient Name: NATALIE GERBER STUDY: NR MRI BRAIN W/WO CONTRAST; NR MRA HEAD W/O C; 02/25/2018 8:07 pm INDICATION: stroke. MS workup. COMPARISON: Head CT February 24, 2018 and MRI of the brain October 07, 2016. ACCESSION NUMBER(S): [id number]; [id number] ORDERING CLINICIAN: MARISELA MICHEL TECHNIQUE: Axial T2, FLAIR, DWI, gradient echo T2 and T1 weighted images of brain were acquired. Post contrast T1 weighted images were acquired after administration of 20 mL MultiHance intravenous contrast administration. Volumetric FLAIR images were also acquired and multiplanar reformats were submitted for review. [id number] MRA of the head was performed. The [...] head. Electronically signed by: DO Teagan [facility] Neurology Progress Noteon Protein mass conc [facility] Patient: NATALIE GERBER[address] MR#: [id number] [place], [place] [address] : 1960 [address]: Dept: PDOC Loc: 9W 934- Neurology Progress Note Service Dt: 02/25/18 Report#: [id number] Adm Dt: 02/24/18 Dis Dt: Neurology Progress [...] (Auto) 67 Lymph % (Auto) 22 L Lamb % (Auto) 7 Eos % (Auto) 2 Baso % (Auto) 1 Nucleat RBC Rel Count 0.0 Immature Gran # (Auto) 0.1 Neut # (Auto) 4.3 Lymph # (Auto) 1.4 Lamb # (Auto) 0.4 Eos # (Auto) 0.2 [...] (Aspirin, "Baby" (Chewable)) 81 mg PO DAILY [facility] Last Admin: 02/25/18 10:39 Dose: 81 mg Carvedilol (Coreg) 6.25 mg PO DAILY [facility] Last Admin: 02/25/18 10:38 Dose: 6.25 mg Clopidogrel Bisulfate (Plavix) 75 mg PO DAILY [facility] Last Admin: 02/25/18 10:39 Dose: 75 mg Cyanocobalamin (Vitamin B-12) 1,000 mcg PO DAILY [facility] Last Admin: 02/25/18 10:38 Dose: 1,000 mcg Dextrose (Dextrose Syringe) 25 ml IV Q15M PRN PRN Reason: Hypoglycemia Dextrose (Dextrose Syringe) 50 ml IV Q15M PRN PRN Reason: Hypoglycemia Dextrose (Instant Glucose) 37.5 g PO Q15M PRN PRN Reason: Hypoglycemia Enoxaparin Sodium (Lovenox) 40 mg SC DAILY [facility] Last Admin: 02/25/18 10:39 Dose: 40 mg Furosemide (Lasix) 20 mg PO DAILY [facility] Last Admin: 02/25/18 10:38 Dose: 20 mg Gabapentin (Neurontin) 400 mg PO DAILY [facility] Last Admin: 02/25/18 10:45 Dose: 400 mg Glucagon (Glucagon) 1 mg IM Q15M PRN PRN Reason: Hypoglycemia Levothyroxine Sodium (Synthroid) 50 mcg PO QDSYNTH [facility] Last Admin: 02/25/18 05:47 Dose: 50 mcg Lisinopril (Zestril/Prinivil) 5 mg PO DAILY [facility] Last Admin: 02/25/18 10:39 Dose: 5 mg Melatonin (Melatonin) 3 mg PO QHS [facility] Last Admin: 02/24/18 21:01 Dose: 3 mg Methylphenidate HCl (Ritalin) 40 mg PO DAILY [facility] Last Admin: 02/25/18 10:40 Dose: 40 mg Nitroglycerin (Nitrostat) 400 mcg SL Q5M PRN PRN Reason: Chest Pain Oxycodone/Acetaminophen (Percocet) 2 tab PO Q6 PRN PRN Reason: Pain-moderate (4-6/10) Last Admin: 02/25/18 12:18 Dose: 2 tab Pantoprazole Sodium (Protonix) 40 mg PO DAILY [facility] Last Admin: 02/25/18 10:39 Dose: 40 mg Quetiapine Fumarate (Seroquel) 100 mg PO DAILY [facility] Last Admin: 02/25/18 10:38 Dose: 100 mg Senna/Docusate Sodium (Senokot-S) 1 tab PO DAILY [facility] Last Admin: 02/25/18 10:38 Dose: 1 tab Simvastatin (Zocor) 40 mg PO QHS [facility] Last Admin: 02/24/18 21:01 Dose: 40 mg Vitamin D (Vitamin D) 2,000 units.intl PO DAILY [facility] Last Admin: 02/25/18 10:39 Dose: 2,000 units.intl Allergies/Adv: Allergies Allergy/AdvReac Type Severity Reaction Status Date / Time ketorolac Allergy Severe Hives Verified 08/02/16 23:25 nalbuphine Allergy Severe Shortness Verified 08/02/16 23:25 of Breath nalbuphine HCl * Allergy Unknown Verified 10/08/16 21:16 [From Carisa] - Assessment/Plan (1) Paresthesia Status: Acute Plan: [...] performed as an inpatient if possible. Normal [facility] Vitamin B12on 02-25-2018 Cobalamin (Vitamin B12) mass conc 361 pg/mL Normal 211-911 [facility] Comment on above: Result Comment: Perf [facility] Site: [place] [address] [place] [address] Performed By: #### C BC, BMP, TROP, BNP, TSH ####[address] [address] B-type Natriuretic Peptideon 02-24-2018 Natriuretic peptide B mass conc (Bld) 35 pg/mL Normal 0-100 [facility] Comment on above: Result Comment: Refe rence Intervals:<100 pg/mL - Heart failure waepxkyk950-543 pg/mL - Intermediate probability of acute heartfailure exacerbation. Correlate with clinical context andpatient history.>=300 pg/mL - Heart failure likely. Correlate with clinicalcontext and patient history. Performed By: #### C BC, BMP, TROP, BNP, TSH ####[address] [address] Basic Metabolic Panel $$$on 02-24-2018 Anion gap 3 molar conc 8.5 mmol/L Low 10-20 [facility] Comment on above: Performed By: #### C BC, BMP, TROP, BNP, TSH ####[address] [address] Calcium mass conc 8.6 mg/dL Normal 8.6-10.3 [facility] Comment on above: Result Comment: Spring burns note new reference range as of September. Performed By: #### C BC, BMP, TROP, BNP, TSH ####[address] [address] Chloride molar conc 106 mmol/L Normal 98-107 [facility] Comment on above: Performed By: #### C BC, BMP, TROP, BNP, TSH ####[facility] [place] [address] CO2 molar conc 29 mmol/L Normal 21-32 [facility] Comment on above: Performed By: #### C BC, BMP, TROP, BNP, TSH ####[facility] [place] [address] Creatinine mass conc 0.75 mg/dL Normal 0.50-1.30 [facility] Comment on above: Result Comment: Spring burns note new reference range as of September. Performed By: #### C BC, BMP, TROP, BNP, TSH ####[facility] [place] [address] GFR () >[address] [facility] Comment on above: Performed By: #### C BC, BMP, TROP, BNP, TSH ####[facility] [place] [address] GFR (Non ) >[address] [facility] Comment on above: Result Comment: eGFR Units of measure: mL/min/1.73 m 2 Performed By: #### C BC, BMP, TROP, BNP, TSH ####[address] [address] Glucose mass conc 91 mg/dL Normal 74-99 [facility] Comment on above: Performed By: #### C BC, BMP, TROP, BNP, TSH ####[address] [address] Potassium molar conc 4.5 mmol/L Normal 3.5-5.3 [facility] Comment on above: Performed By: #### C BC, BMP, TROP, BNP, TSH ####[facility] [place] [address] Sodium molar conc 139 mmol/L Normal 136-145 [facility] Comment on above: Performed By: #### C BC, BMP, TROP, BNP, TSH ####[facility] [place] [address] Urea nitrogen mass conc (Bld) 15 mg/dL Normal 6-23 [facility] Comment on above: Result Comment: Spring burns note new reference range as of September. Performed By: #### C BC, BMP, TROP, BNP, TSH ####[facility] [place] [address] Brain or Head without Contra ston 02-24-2018 Brain or Head without Contrast [facility] Patient: NATALIE GERBER [address] [facility] MR#: [id number] [place], [place] [address] : [address] Koko Whitt MD Dept: Diagnostic Imaging Loc: 1EDA DI REPORT Service Dt:02/24/18 Report#: [id number] Adm Dt: 02/24/18 Dis Dt: Comments: STUDY: CT Brain or Head without Contrast; 02/24/2018 11:30 am INDICATION: altered mental status. COMPARISON: 10/07/2016 ACCESSION NUMBER(S): [id number] ORDERING CLINICIAN: Koko Whitt TECHNIQUE: Noncontrast axial [...] by: Luisa Arevalo 02/24/2018 11:[address] [facility] Chest Single Xray 1 viewon 0 02-24-2018 Chest Single Xray 1 view [facility] Patient: NATALIE GERBER [address] [facility] MR#: [id number] [place], [place] [address] : [address] Koko Whitt MD Dept: Diagnostic Imaging Loc: 1EDA DI REPORT Service Dt:02/24/18 Report#: [id number] Adm Dt: 02/24/18 Dis Dt: Comments: STUDY: CR Chest Single Xray 1 view; 02/24/2018 11:45 am INDICATION: Heart Failure. COMPARISON: 11/14/2016 ACCESSION NUMBER(S): [id number] ORDERING CLINICIAN: Koko Whitt FINDINGS: A single [...] by: Chuck Arellano 02/24/2018 12:[address] [facility] Complete Blood Count w/diff $$on 02-24-2018 Diff Type Manual Normal [facility] Comment on above: Performed By: #### C BC, BMP, TROP, BNP, TSH ####[facility] [place] [address] Erythrocyte distribution width Auto Ratio (RBC) 13.9 % Normal 11.5-14.5 [facility] Comment on above: Performed By: #### C BC, BMP, TROP, BNP, TSH ####[facility] [place] [address] Hematocrit Auto Volume Fraction (Bld) 35.0 % Low 39-50 [facility] Comment on above: Performed By: #### C BC, BMP, TROP, BNP, TSH ####[address] [address] Hemoglobin mass conc (Bld) 10.8 g/dL Low 13.0-17.3 [facility] Comment on above: Performed By: #### C BC, BMP, TROP, BNP, TSH ####[address] [address] MCH Auto Entitic mass (RBC) 30.9 g/dL Low 33-37 [facility] Comment on above: Performed By: #### C BC, BMP, TROP, BNP, TSH ####[address] [address] MCH Auto Entitic mass (RBC) 27.6 pg Normal 27-34 [facility] Comment on above: Performed By: #### C BC, BMP, TROP, BNP, TSH ####[address] [address] MCV Auto Entitic volume (RBC) 89.5 fL Normal 80-100 [facility] Comment on above: Performed By: #### C BC, BMP, TROP, BNP, TSH ####[address] [address] Platelet mean volume Auto Entitic volume (Bld) 9.3 fL Normal 7.4-10.4 [facility] Comment on above: Performed By: #### C BC, BMP, TROP, BNP, TSH ####[address] [address] Platelets Auto #/vol (Bld) 193 10 3/uL Normal 150-400 [facility] Comment on above: Performed By: #### C BC, BMP, TROP, BNP, TSH ####[address] [address] RBC Auto #/vol (Bld) 3.91 10 6/uL Low 4.5-6.0 [facility] Comment on above: Performed By: #### C BC, BMP, TROP, BNP, TSH ####[facility] [place] [address] WBC Auto #/vol (Bld) 6.8 10 3/uL Normal 4.0-11.0 [facility] Comment on above: Performed By: #### C BC, BMP, TROP, BNP, TSH ####[facility] [place] [address] Consultation Reporton 2017 Consultation Report [facility] Patient: NATALIE GERBER [address] [facility] MR#: [id number] [place], [place] [address] : 1960 [address]: Dept: PDOC Loc: 9 934-1 Consultation Service Dt: 02/24/18 Report#: [id number] Adm Dt: 02/24/18 Dis Dt: Initial Physician Consultation - Consulting Specialty Consulting Specialty: Neurology - Consultation Date of Consultation: 02/24/18 Requesting Physician: Marisela Michel Reason for Consult: Left sided numbness - PCP/Chief Complaint Primary Care Physician: Marisela Michel Chief Complaint: LUE and facial numbness [...] Artery Disease/CAD, Cardiac Cath, CHF, Heart Attack ([place]), High Cholesterol, HTN Respiratory: Pulmonary Embolism/PE, Pneumonia [...] of Substances/Recreational Drugs: No Comment: Lives in [facility] with his . 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 - Family Health [...] (Aspirin, "Baby" (Chewable)) 81 mg PO DAILY [facility] Carvedilol (Coreg) 6.25 mg PO DAILY [facility] Clopidogrel Bisulfate (Plavix) 75 mg PO DAILY [facility] Cyanocobalamin (Vitamin B-12) 1,000 mcg PO DAILY [facility] Dextrose (Dextrose Syringe) 25 ml IV Q15M PRN PRN Reason: Hypoglycemia Dextrose (Dextrose Syringe) 50 ml IV Q15M PRN PRN Reason: Hypoglycemia Dextrose (Instant Glucose) 37.5 g PO Q15M PRN PRN Reason: Hypoglycemia Enoxaparin Sodium (Lovenox) 40 mg SC DAILY [facility] Furosemide (Lasix) 20 mg PO DAILY [facility] Gabapentin (Neurontin) 400 mg PO DAILY [facility] Glucagon (Glucagon) 1 mg IM Q15M PRN PRN Reason: Hypoglycemia Sodium Chloride (Sodium Chloride 0.9%) 1,000 mls @ 30 mls/hr IV .[id number] [facility] Last Admin: 02/24/18 12:13 Dose: 30 mls/hr Insulin Human Regular (Humulin R (Bkc)) 0 units SC AC [facility] PRN Reason: Protocol Levothyroxine Sodium (Synthroid) 50 mcg PO QDSYNTH [facility] Lisinopril (Zestril/Prinivil) 5 mg PO DAILY [facility] Melatonin (Melatonin) 3 mg PO QHS [facility] Nitroglycerin (Nitrostat) 400 mcg SL Q5M PRN PRN Reason: Chest Pain Non-Formulary Medication (Dextroamphetamine/Amphetami ne [Adderall 20 Mg Tablet]) 20 mg PO DAILY [facility] Non-Formulary Medication (Esomeprazole Magnesium [Nexium]) 40 mg PO DAILY [facility] Ondansetron HCl (Zofran) 4 mg IV Q6 PRN PRN Reason: Nausea Oxycodone/Acetaminophen (Percocet) 2 tab PO Q6 PRN PRN Reason: Pain-moderate (4-6) Quetiapine Fumarate (Seroquel) 100 mg PO DAILY [facility] Senna/Docusate Sodium (Senokot-S) 1 tab PO DAILY [facility] Simvastatin (Zocor) 40 mg PO QHS [facility] Vitamin D (Vitamin D) 2,000 units.intl [...] Clarity Clear Urine pH 5.0 Ur Specific [place] 1.010 Urine Protein Negative Urine Glucose (UA) [...] Extraocular movements are full, without nystagmus. Visual alonso are full to confrontation. The fundi are [...] There is no tremor. On coordination testing, xvrrpt-dilw-ueogwx and iigu-qemb-jdin testing are done well bilaterally. Sensory examination [...] you for the consult. 02/24/18 16:[address] [facility] ED Visit Summaryon 8 ED Visit Summary [facility] Patient: NATALIE GERBER [address] [facility] MR#: [id number] [place], [place] [address] : 1960 Ord. : Dept: Emergency Department Loc: 1EDA ER Physician Documentation Service Dt: 02/24/18 Report#: [id number] Adm Dt: 02/24/18 Dis Dt: Patient Information [...] stroke. He is currently living at the [facility] with his . He is being [...] Artery Disease/CAD, Cardiac Cath, CHF, Heart Attack ([place]), High Cholesterol, HTN Hx Heart Failure? How [...] His stroke score is 0. I've consulted status secondary and arranged for observation care the further [...] ADMIT THROUGH THE ED - Discharge Referrals: Marisela Michel MD [Primary Care Provider] - Normal [facility] Glucose, Point of Careon Glucose mass conc 112 mg/dL High 80-110 [facility] Comment on above: Performed By: #### C BC, BMP, TROP, BNP, TSH ####[facility] [place], [place] [id number] History AND Physicalon 02-24 History AND Physical [facility] Patient: NATALIE GERBER [address] [facility] MR#: [id number] [place], [place] [address] : 1960 Ord[address] [place]: Dept: PDOC Loc: 934-1 History Physical Service Dt: 02/24/18 Report#: [id number] Adm Dt: 02/24/18 Dis Dt: History and Physical - Admit Order Information Status/Length of Stay: Full Admit, Anticipated Length of Stay >2 Midnights Location: Telemetry Floor - Date of Service Date of Service: 02/24/18 - PCP/Chief Complaint Primary Care Physician: Marisela Michel Chief Complaint: LUE and facial numbness - Patient Information HPI/ROS/Exam: 57 yo obese male ecf dweller admitted through the ed for left sided facial and left arm parasthesias of [id number] etiology. Symptoms worse today. Also recently has had dyspnea and light headedness associated with ambulation in the ecf. Has many co-morbidities, and is morbidly obese Cardiac: Angioplasty, Coronary Artery Disease/CAD, Cardiac Cath, CHF, Heart Attack ([place]), High Cholesterol, HTN Neurological: CVA/Stroke, TIA/Transient Ischemic [...] of Substances/Recreational Drugs: No Comment: Lives in [place] with his . 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 - Family Health [...] Clarity Clear Urine pH 5.0 Ur Specific [place] 1.010 Urine Protein Negative Urine Glucose (UA) [...] Diabetes mellitus type: type 2 Diabetes mellitus usp insulin use: without usp use (7) CHF exacerbation Status: Suspected Qualifiers: [...] Changes noted below: Date/Time Attending Physician Normal [facility] History AND Physical [facility] Patient: NATALIE GERBER [address] [facility] MR#: [id number] [place], [place] [address] : 1960 Ord. : Dept: PDOC Loc: 9 934-1 History Physical Service Dt: 02/24/18 Report#: [id number] Adm Dt: 02/24/18 Dis Dt: History and Physical - Admit Order Information Status/Length of Stay: Observation <2 Midnights, Place Pt in Routine Location: Telemetry Floor - Date of Service Date of Service: 02/24/18 (1437) - PCP/Chief Complaint Primary Care Physician: Marisela Michel Chief Complaint: LUE and facial numbness - Patient Information HPI/ROS/Exam: This is a 57-year-old male with a past medical history of hypertension, hyperlipidemia, CAD with WI and angioplasty, CHF, CVA, PE, and hypothyroidism [...] stroke that he needed life flighted to [facility] for and he received TPA. He denies having a neurologist. He reports he saw mobile ui designer in [place], however since he has moved to [facility], he would like to see a new mobile ui designer. In the ED lab work, EKG, chest [...] Artery Disease/CAD, Cardiac Cath, CHF, Heart Attack ([place]), High Cholesterol, HTN Neurological: CVA/Stroke, TIA/Transient Ischemic [...] of Substances/Recreational Drugs: No Comment: Lives in [place] with his . 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 - Family Health [...] Clarity Clear Urine pH 5.0 Ur Specific [place] 1.010 Urine Protein Negative Urine Glucose (UA) [...] Acute Plan: early and aggressive [facility] NIH St[facility] - NIHSS Assessment Time Time Performed: 14:30 - NIH Stroke Scale Level of Consciousness: 0- Alert, Keenly Responsive Ask Month and Patient Age- Must Be Exactly Right: 0- Answers Both Correctly Ask Pt to Open/Close Eyes then [employer]/Release Non-paretic Hand: 0- Performs Both Tasks Correctly Best Gaze- Only Horizontal Movements Tested: 0- Normal Visual Alonso Tested by Confrontation: 0- No Visual Loss [...] Changes noted below: Date/Time Attending Physician Normal [facility] Protime INRon 02-24-2018 INR Coag RelTime (PPP) 0.9 {INR} Normal 0.9-1.1 [facility] Comment on above: Result Comment: Spring burns note new reference range OF 07/01/2017 Performed By: #### P TINR, UR ####[facility] [place] [address] Protein mass conc 10.6 sec Normal 9.8-12.7 [facility] Comment on above: Result Comment: Spring burns note new reference range OF 07/01/2017 Performed By: #### P TINR, UR ####[facility] [place] [address] Thyroid Stimulating Hormoneo n 02-24-2018 Thyrotropin Qn 1.77 m[IU]/L Normal 0.44-3.98 [facility] Comment on above: Performed By: #### C BC, BMP, TROP, BNP, TSH ####[address] [address] Thyrotropin Qn Normal 0.358-3.74 [facility] Comment on above: Order Comment: Added by laboratory to previous [place]. AT 15[address]Add on to today's blood, if available? Y Performed By: #### C BC, BMP, TROP, BNP, TSH ####[address] [address] Troponin Ion 02-24-2018 Troponin I.cardiac mass conc ng/mL Normal 0.00-0.040 [facility] Comment on above: Performed By: #### C BC, BMP, TROP, BNP, TSH ####[address] [address] Urinalysison 02-24-2018 Bilirubin, Urine Negative Normal Negative [facility] Comment on above: Performed By: #### P TINR, UR ####[address] [address] Clarity Nom (U) Clear Normal [facility] Comment on above: Performed By: #### P TINR, UR ####[address] [address] Color Nom (U) Yellow Normal [facility] Comment on above: Performed By: #### P TINR, UR ####[address] [address] Glucose Ql (U) Negative Normal Negative [facility] Comment on above: Performed By: #### P TINR, UR ####[address] [address] Hemoglobin Test strip Ql (U) Negative Normal Negative [facility] Comment on above: Performed By: #### P TINR, UR ####[address] [address] Hyaline Casts, Urine 0-5 Normal [facility] Comment on above: Performed By: #### P TINR, UR ####[address] [address] Ketones Ql (U) Negative Normal Negative [facility] Comment on above: Performed By: #### P TINR, UR ####[address] [address] Leukocyte esterase Test strip Ql (U) Negative Normal Negative [facility] Comment on above: Performed By: #### P TINR, UR ####[address] [address] Mucus, Urine Rare Normal [facility] Comment on above: Performed By: #### P TINR, UR ####[address] [address] Nitrates, Urine Negative Normal Negative [facility] Comment on above: Performed By: #### P TINR, UR ####[address] [address] pH Test strip (U) 5.0 [pH] Normal 5.0-9.0 [facility] Comment on above: Performed By: #### P TINR, UR ####[address] [address] Protein, Urine Negative Normal Negative [facility] Comment on above: Performed By: #### P TINR, UR ####[address] [address] Specific [place], Urine 1.010 Normal 1.000-1.[address] [facility] Comment on above: Performed By: #### P TINR, UR ####[facility] [place] [address] Urobilinogen, Urine Normal Normal <2.0 [facility] Comment on above: Performed By: #### P TINR, UR ####[facility] [place] [address] WBC, Urine 0 /HPF Normal 0-2 [facility] Comment on above: Performed By: #### P TINR, UR ####[facility] [place] [address] Vital Signs Date Time Vital Sign Value Performing Clinician Facility 01-17-2023 08:50-0400 Body height 165.1 cm [facility] Work Phone: [facility] 01-17-2023 08:50-0400 Body weight 134.26 kg [facility] Work Phone: [facility] 01-17-2023 08:50-0400 Respiratory rate 16 /min [facility] Work Phone: [facility] 01-31-2020 11:33-0400 Body Temperature 96.01 [degF] [facility] 01-31-2020 11:33-0400 BP Diastolic 70 mm[Hg] [facility] [place] 01-31-2020 11:33-0400 BP Systolic 128 mm[Hg] [facility] [place] 01-31-2020 11:33-0400 Pulse (Heart Rate) 65 /min [facility] 01-31-2020 11:33-0400 Pulse Oximetry 99 % [facility] [place] 01-31-2020 11:33-0400 Respiratory Rate 17 /min [facility] 01-27-2020 02:07-0400 BMI (Body Mass Index) 54.78 kg/m2 [facility], [place] 01-27-2020 02:07-0400 Body weight 149.32 kg [facility] , [place] 01-27-2020 02:07-0400 Height 165.[address] [facility] , [place] 06-24-2019 07:27-0500 Body temperature 96.6 [degF] Arian Dimas MD Work Phone: [facility] Work Phone: 06-24-2019 07:27-0500 Diastolic blood pressure 76 mm[Hg] Arian Dimas MD Work Phone: [facility] Work Phone: 06-24-2019 07:27-0500 Heart rate 73 /min Arian Dimas MD Work Phone: [facility] Work Phone: 06-24-2019 07:27-0500 Respiratory rate 20 /min Arian Dimas MD Work Phone: [facility] Work Phone: 06-24-2019 07:27-0500 SaO2% (BldA) [Mass fraction] 96 % Arian Dimas MD Work Phone: [facility] Work Phone: 06-24-2019 07:27-0500 Systolic blood pressure 147 mm[Hg] Arian Dimas MD Work Phone: [facility] Work Phone: 06-17-2019 22:22-0500 Body mass index (BMI) [Ratio] 54.2 kg/m2 Arian Dimas MD Work Phone: [facility] Work Phone: 06-17-2019 22:22-0500 Body weight 147.74 kg Arian Dimas MD Work Phone: [facility] Work Phone: 06-17-2019 19:15-0500 Body height 165.1 cm Arian Dimas MD Work Phone: [facility] Work Phone: 05-08-2019 11:43-0500 Body Temperature 97.7 [degF] Asha Rihter [facility], [place] 05-08-2019 11:43-0500 BP Diastolic 50 mm[Hg] [facility] , [place] 05-08-2019 11:43-0500 BP Systolic 120 mm[Hg] [facility] , [place] 05-08-2019 11:43-0500 Pulse (Heart Rate) 81 /min [facility], [place] 05-08-2019 11:43-0500 Pulse Oximetry 95 % [facility] , [place] 05-08-2019 11:43-0500 Respiratory Rate 20 /min [facility], [place] 05-07-2019 04:49-0500 BMI (Body Mass Index) 52.35 kg/m2 [facility], [place] 05-07-2019 04:49-0500 Body weight 142.7 kg [facility] , [place] 05-06-2019 20:21-0500 Height 165.1 cm [facility] , [place] 03-25-2019 19:31-0400 Body Temperature 96.91 [degF] [facility], [place] 03-25-2019 19:31-0400 BP Diastolic 91 mm[Hg] [facility] , [place] 03-25-2019 19:31-0400 BP Systolic 146 mm[Hg] [facility] , [place] 03-25-2019 19:31-0400 Pulse (Heart Rate) 72 /min [facility], [place] 03-25-2019 19:31-0400 Pulse Oximetry 98 % [facility] , [place] 03-25-2019 19:31-0400 Respiratory Rate 20 /min [facility], [place] 03-20-2019 02:47-0400 BMI (Body Mass Index) 52.59 kg/m2 [facility], [place] 03-20-2019 02:47-0400 Body weight 143.34 kg [facility] , [place] 03-20-2019 02:47-0400 Height 165.1 cm Matilda Bird [facility] , [place] 03-11-2019 16:40-0400 Body Temperature 98.4 [degF] [facility], [place] 03-11-2019 16:40-0400 BP Diastolic 62 mm[Hg] [facility] , [place] 03-11-2019 16:40-0400 BP Systolic 101 mm[Hg] formerly [facility] , [place] 03-11-2019 16:40-0400 Pulse (Heart Rate) 65 /min [facility], [place] 03-11-2019 16:40-0400 Pulse Oximetry 97 % [facility] , [place] 03-11-2019 16:40-0400 Respiratory Rate 16 /min [facility], [place] 03-11-2019 06:04-0400 BMI (Body Mass Index) 53.98 kg/m2 [facility], [place] 03-11-2019 06:04-0400 Body weight 147.14 kg [facility] , [place] 03-08-2019 19:25-0400 Height 165.1 cm [facility] , [place] 02-17-2019 14:06-0400 BP Diastolic 92 mm[Hg] [facility] , [place] 02-17-2019 14:06-0400 BP Systolic 146 mm[Hg] [facility] , [place] 02-17-2019 14:06-0400 Pulse (Heart Rate) 84 /min [facility], [place] 02-17-2019 14:06-0400 Pulse Oximetry 96 % [facility] , [place] 02-17-2019 14:06-0400 Respiratory Rate 20 /min [facility], [place] 02-17-2019 11:02-0400 Body Temperature 97.9 [degF] [facility] [place] 01-13-2019 07:51-0400 Body Temperature 97.9 [degF] [facility] [place] 01-13-2019 07:51-0400 BP Diastolic 50 mm[Hg] [place], [place] 01-13-2019 07:51-0400 BP Systolic 113 mm[Hg] [place] 01-13-2019 07:51-0400 Pulse (Heart Rate) 80 /min [place], [place] 01-13-2019 07:51-0400 Pulse Oximetry 95 % , [place] 01-13-2019 07:51-0400 Respiratory Rate 20 /min [facility], [place] 01-12-2019 21:25-0400 BMI (Body Mass Index) 51.92 kg/m2 Asafshay Og [facility], [place] 01-12-2019 21:25-0400 Body weight 141.52 kg [place], [place] 01-12-2019 21:25-0400 Height 165.1 cm [place] Encounters Encounter Date Encounter Type Care Provider Facility Start: 12-06-2024 ambulatory Satya Boyce Facility:[facility] Start: 11-01-2024 ambulatory Chuy العلي [facility] ity:[facility] Start: 11-01-2024 Registered Referred Chuy Galeano [facility] [address] Start: 10-04-2024 End: 10-04-[address] Satya Boyce DO Work Phone: [facility] Work Phone: Start: 10-04-2024 End: 10-04-2024 [facility] [place] [facility] [address] Start: 10-04-2024 End: 10-04-2024 ambulatory Chuy العلي Facility:[facility] Start: 08-27-2024 End: 08-27-[address] Satya Boyce DO Work Phone: [facility] Work Phone: Start: 08-27-2024 End: 08-27-2024 Departed Referred Chuy Galeano -[facility] [address] Start: 08-27-2024 End: 08-27-2024 ambulatory Hernadez Bonyo Facility:[facility] Start: 07-14-2024 ambulatory Hernadez Bonyo Facility:[facility] Start: 07-14-2024 [facility]istered [facility] [address] Start: 07-07-2024 ambulatory Hernadez Bonyo Facility:[facility] Start: 07-07-2024 Registered Referred Chuy Galeano -[facility] [place] [facility] - [address] Start: 05-03-2024 End: 05-11-2024 Telephone encounter Sami Vance MD Work Phone: [facility] Comment on above: Referral Start: 05-03-2024 End: 05-03-2024 ambulatory Hernadez Bonyo Facility:[facility] Start: 04-06-2024 End: 04-06-2024 ambulatory Hernadez Bonyo Facility:[facility] Start: 01-05-2024 End: 01-05-2024 ambulatory Hernadez Bonyo Facility:[facility] Start: 12-09-2023 Telephone encounter Bibi Steele MD Work Phone: [facility] Comment on above: Appointment Start: 08-28-2023 End: 08-28-2023 ambulatory [facility] Work Phone: Start: 08-28-2023 End: 08-28-2023 Departed [facility] [place] [facility] [address] Start: 04-04-2023 End: 04-04-2023 ambulatory [facility] Work Phone: Start: 04-04-2023 End: 04-04-2023 Departed Referred [facility] [place] [facility] [address] Start: 01-17-2023 End: 01-17-2023 ambulatory HERNADEZ TORIBIO BONYO Facility:[facility] Start: 01-17-2023 End: 01-17-2023 Patient encounter procedure [facility] Work Phone: [facility] Comment on above: Chronic left shoulde r pain (Primary Dx) Start: 11-22-2022 Telephone encounter [facility] Work Phone: [facility] Comment on above: Appointment (No Show on 11/22) Start: 11-20-2022 Telephone encounter [facility] Work Phone: [facility] Comment on above: Appointment (11/22 ap pointment reminder) Start: 08-23-2022 End: 08-23-2022 ambulatory SATYA KAHN BONYO Facility:[facility] Start: 08-21-2022 Telephone encounter [facility] Work Phone: [facility] Comment on above: Appointment (08/23 ap pointment reminder) Start: 08-02-2022 Telephone encounter [facility] Work Phone: [facility] Comment on above: Appointment (Schedul e appointment for Lt shoulder referral) Start: 04-12-2022 Telephone encounter Bibi Steele MD Work Phone: [facility] Comment on above: Missed appt letter r eturned Start: 02-26-2022 Chart abstracting Bibi Steele MD Work Phone: [facility] Start: 12-31-2021 Chart Update Satya Boyce Work Phone: [facility] Work Phone: Start: 12-29-2021 Chart abstracting Lisa solis MA [facility] Start: 12-13-2021 ambulatory Cayetano Fraire er RT(R) Nuclear Medicine Comment on above: Radiology [place] Start: 12-13-2021 Patient encounter procedure Cayetano Braun RT(R) [facility] Start: 01-26-2020 End: 01-31-2020 Emergency department patient visit Matilda Bird Work Phone: [facility] CDU Comment on above: Chest pain, unspecif ied type (Primary Dx) Start: 06-17-2019 End: 06-24-2019 Emergency department patient visit Arian Dimas MD Work Phone: [facility] 5E MED SURG Comment on above: Sciatica of left patrick e (Primary Dx); Recurrent falls; Mood disorder (HCC) Start: 05-06-2019 End: 05-08-2019 Emergency department patient visit Asha Singh Work Phone: [facility] 5W TELEMETRY Comment on above: Chest pain, unspecif ied type (Primary Dx) Start: 05-06-2019 End: 05-06-2019 Emergency department patient [facility] Start: 03-20-2019 End: 03-26-2019 Emergency department patient visit Matilda HallLadarius Bird Work Phone: [facility] 7W MED SURG Comment on above: Acute exacerbation o f chronic low back pain (Primary Dx); Left leg pain; Left leg weakness; Frequent falls; Elevated erythrocyte sedimentation rate; Elevated C-reactive protein (CRP) Start: 03-08-2019 End: 03-11-2019 Evaluation and management of inpatient Ja Olguin Work Phone: [facility] 5W TELEMETRY Comment on above: 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 (Primary Dx); Chest pain, unspecified type Start: 02-17-2019 End: 02-17-2019 Emergency department patient visit Brandon Dahl Work Phone: [facility] Comment on above: Sciatica of left patrick e (Primary Dx) Start: 01-12-2019 End: 01-13-2019 Emergency department patient visit Asaf Og Work Phone: [facility] Emergency Dept Comment on above: Dyspnea, unspecified type (Primary Dx); Peripheral edema; Suicidal ideation; Depression, unspecified depression type Start: 06-07-2018 End: 06-09-2018 Patient encounter procedure [facility] Start: 06-07-2018 End: 06-07-2018 Patient encounter procedure [facility] Facility:UNKNOWN Start: 05-15-2018 End: 05-19-2018 Patient encounter procedure [facility] Start: 02-24-2018 End: 03-04-2018 Evaluation and management of inpatient Marisela Michel [facility] Start: 11-16-2016 End: 11-17-2016 Emergency department patient visit KAR STRICKLAND Facility:[facility] Procedures Date Procedure Procedure Detail Performing [...] 01-28-2020 Blood count complete auto&auto difrntl wbc Satya Boyce Work Phone: Start: 01-28-2020 Comprehensive metabolic panel Satya Boyce Work Phone: Start: 01-27-2020 COVID-19 Satya Baker on[place] Work Phone: Start: 01-27-2020 Assay of troponin quantitative Satya Boyce Work Phone: Start: 01-27-2020 Assay of troponin quantitative Satya Maryam Carli Work Phone: Start: 01-26-2020 Ct angiography chest w/contrast/noncontrast David Zuleta Work Phone: Start: 01-26-2020 Radiologic exam ches t single view David Zuleta Work Phone: Start: 01-26-2020 Fibrin dgradj produc ts d-dimer quantitative David Zuleta Work Phone: Start: 01-26-2020 Assay of troponin quantitative David Zuleta Work Phone: Start: 01-26-2020 Basic metabolic pane l calcium total David Zuleta Work Phone: Start: 01-26-2020 Blood count complete auto&auto difrntl wbc David Zuleta Work Phone: Start: 01-26-2020 Natriuretic peptide Alec Zuleta Work Phone: Start: 01-26-2020 Ecg routine ecg w/le ast 12 lds w/i&r David Zuleta Work Phone: Start: 10-09-2019 Echocardiography Start: 10-09-2019 Lipid 1996 panel - S josephine or Plasma Bibi Steele MD Work Phone: Start: 06-21-2019 Comprehensive metabolic panel Hernadez S Bonyo DO Work Phone: Start: 06-19-2019 Comprehensive metabolic panel Hernadez S Bonyo DO Work Phone: Start: 06-17-2019 Ct cervical spine w/ o contrast material Arian Dimas MD Work Phone: Start: 06-17-2019 Ct head/brain w/o co ntrast material Arian Dimas MD Work Phone: Start: 06-17-2019 Basic metabolic pane l calcium total Arian Dimas MD Work Phone: Start: 05-09-2019 Adult depression scr eening assessment Cayetano Braun RT(R) Start: 05-08-2019 Basic metabolic pane l calcium total Chimezie Amanambu Work Phone: Start: 05-08-2019 Blood count complete auto&auto difrntl wbc Chimezie Amanambu Work Phone: Start: 05-07-2019 Assay of troponin quantitative Chimezie Amanambu Work Phone: Start: 05-07-2019 Blood count complete automated Chimezie Amanambu Work Phone: Start: 05-06-2019 Assay of troponin quantitative Asha Rihter Work Phone: Start: 05-06-2019 Basic metabolic pane l calcium total Asha Rihter Work Phone: Start: 05-06-2019 Blood count complete auto&auto difrntl wbc Asha Singh Work Phone: Start: 05-06-2019 Hepatic function panel Asha Singh Work Phone: Start: 05-06-2019 Natriuretic peptide Huong Singh Work Phone: Start: 05-06-2019 Ecg routine ecg w/le ast 12 lds w/i&r Asha Singh Work Phone: Start: 05-06-2019 Radiologic exam ches t single view Asha Singh Work Phone: Start: 05-04-2019 Electrocardiogram Start: 2019 Mri spinal canal lum bar w/o & w/contr matrl Sunny Mathur Work Phone: Start: 2019 Blood count complete auto&auto difrntl wbc Satya Boyce Work Phone: Start: 2019 Comprehensive metabolic panel Satya Boyce Work Phone: Start: 03-21-2019 Blood count complete auto&auto difrntl wbc Satya Boyce Work Phone: Start: 03-21-2019 Comprehensive metabolic panel Satya Boyce Work Phone: Start: 03-21-2019 Drug screen class list a Satya Boyce Work Phone: Start: 03-20-2019 Blood count complete automated [employer] Work Phone: Start: 03-20-2019 Sedimentation rate r bc automated [employer] Work Phone: Start: 03-20-2019 Basic metabolic pane l calcium total [employer] Work Phone: Start: 03-20-2019 C-reactive protein Kevi n [employer] Work Phone: Start: 03-09-2019 Assay of troponin quantitative Satya Boyce Work Phone: Start: 03-09-2019 Assay of troponin quantitative Satya Boyce Work Phone: Start: 03-09-2019 Blood count complete auto&auto difrntl wbc Satya Boyce Work Phone: Start: 03-09-2019 Comprehensive metabolic panel Satya Boyce Work Phone: Start: 03-09-2019 Creatine kinase total B son Boyce Work Phone: Start: 03-08-2019 Assay of lipase Nav Kumar Work Phone: Start: 03-08-2019 Assay of troponin quantitative Nav Kumar Work Phone: Start: 03-08-2019 Basic metabolic pane l calcium total Nav Kumar Work Phone: Start: 03-08-2019 Blood count complete automated Nav Kumar Work Phone: Start: 03-08-2019 Fibrin dgradj produc ts d-dimer quantitative Nav Kumar Work Phone: Start: 03-08-2019 Natriuretic peptide Alfredo Kumar Work Phone: Start: 03-08-2019 Radiologic exam ches t single view Nav Kumar Work Phone: Start: 03-08-2019 Ecg routine ecg w/le ast 12 lds w/i&r Ja Dank Olguin Work Phone: Start: 01-13-2019 CANNABINOID, URINE, SCREENING, CRITICAL CARE Lisa Thompson Work Phone: Start: 01-13-2019 Drug screen class list a Lisa Thompson Work Phone: Start: 01-13-2019 Ct angiography chest w/contrast/noncontrast Lisa Thompson Work Phone: Start: 01-12-2019 Radiologic exam ches t single view [employer] Work Phone: Start: 01-12-2019 ADD ON LAB TEST [facility] [employer] Work Phone: Start: 01-12-2019 Assay of ethanol Quenti n R Lenka Work Phone: Start: 01-12-2019 Assay of troponin quantitative Asaf R Lenka Work Phone: Start: 01-12-2019 Basic metabolic pane l calcium total Asaf R Lenak Work Phone: Start: 01-12-2019 Blood count complete automated Asaf R Lenka Work Phone: Start: 01-12-2019 Fibrin dgradj produc ts d-dimer quantitative Asaf R Lenka Work Phone: Start: 01-12-2019 Natriuretic peptide Que ntin R Lenka Work Phone: Start: 05-20-2018 INITIATE OXYGEN THER APY PROTOCOL HERNADEZ BONYO Start: 05-19-2018 NURSING COMMUNICATION B SON BONYO Start: 05-19-2018 DISCHARGE PATIENT TONIA Trujillo BONYO Start: 05-19-2018 Ndl emg 1 xtr w/wo r elated paraspinal areas HERNADEZ BONYO Start: 05-19-2018 INITIATE OXYGEN THER APY PROTOCOL HERNADEZ BONYO Start: 05-18-2018 SUPPLY REQUEST SATYA SIFUENTES Start: 05-18-2018 IP CONSULT TO NEUROLOGY HERNADEZ BONYO Start: 05-18-2018 TRANSFER PATIENT SATYA BONYO Start: 05-18-2018 Mra head w/o contrst material HERNADEZ BONYO Start: 05-18-2018 Mri brain brain stem w/o contrast material HERNADEZ BONYO Start: 05-18-2018 INITIATE OXYGEN THER APY PROTOCOL HERNADEZ BONYO Start: 05-17-2018 INITIATE OXYGEN THER APY PROTOCOL HERNADEZ BONYO Start: 05-17-2018 Basic metabolic pane l calcium total HERNADEZ BONYO Start: 05-17-2018 Hemoglobin glycosylated a1c HERNADEZ BONYO Start: 05-17-2018 SUPPLY REQUEST SATYA SIFUENTES Start: 05-16-2018 Complete tthrc echo congenital cardiac anomaly HERNADEZ BONYO Start: 05-16-2018 INITIATE OXYGEN THER APY PROTOCOL HERNADEZ BONYO Start: 05-16-2018 Basic metabolic pane l calcium total HERNADEZ BONYO Start: 05-16-2018 Blood count complete auto&auto difrntl wbc HERNADEZ BONYO Start: 05-16-2018 Lipid panel SATYA BAUTISTA YO Start: 05-16-2018 ELEVATE HEELS OFF OF BED HERNADEZ BONYO Start: 05-16-2018 HEAD OF BED 60 DEGRE ES OR LESS HERNADEZ BONYO Start: 05-16-2018 NURSING COMMUNICATION B SON VASQUEZO Start: 05-16-2018 TURN PATIENT SATYA BAUTISTA YO Start: 05-16-2018 Urnls dip stick/tabl et reagent auto microscopy HERNADEZ BONYO Start: 05-16-2018 DIET CARDIAC SATYA BAUTISTA YO Start: 05-16-2018 INITIATE OXYGEN THER APY PROTOCOL HERNADEZLULU VASQUEZO Start: 05-16-2018 IP CONSULT TO NEUROLOGY HERNADEZ PEDROO Start: 05-16-2018 Mra neck w/o &w/cont rast material HERNADEZLULU VASQUEZO Start: 05-16-2018 NEURO CHECKS SATYA BAUTISTA YO Start: 05-16-2018 NURSING SWALLOW ASSESSMENT HERNADEZLULU VASQUEZO Start: 05-16-2018 OT EVAL AND TREAT BENSO N BONYO Start: 05-16-2018 PROVIDE PATIENT EDUC ATION MATERIALS HERNADEZ PEDROO Start: 05-16-2018 PT EVAL AND TREAT BENSO N BONYO Start: 05-16-2018 REASON FOR NOT SELEC TING ANTILIPEMIC HERNADEZLULU VASQUEZO Start: 05-16-2018 VITAL SIGNS SATYA BAUTISTA YO Start: 05-16-2018 VITAL SIGNS - NOTIFY MD SATYA BOYCE Start: 05-16-2018 PATIENT STATUS (FROM ED OR OR/PROCEDURAL) HERNADEZLULU VASQUEZO Start: 05-16-2018 TELEMETRY MONITORING BE NSON PEDROO Start: 05-15-2018 Ct angiography head w/contrast/noncontrast SATYA BONYO Start: 05-15-2018 Ct angiography neck w/contrast/noncontrast HERNADEZ BONYO Start: 05-15-2018 Ct head/brain w/o co ntrast material HERNADEZLULU VASQUEZO Start: 05-15-2018 Ct perfusion w/contrast cbf SATYA VASQUEZO Start: 05-15-2018 IP CONSULT TO [facility] SATYA VASQUEZO Start: 05-15-2018 EKG 12-LEAD HERNADEZ MICHELE YO Start: 05-15-2018 Radiologic exam ches t single view SATYA VASQUEZO Start: 05-15-2018 Blood count complete automated SATYA VASQUEZO Start: 05-15-2018 Comprehensive metabolic panel SATYA BOYCE Start: 05-15-2018 Prothrombin time SATYA BOYCE Start: 05-15-2018 Thromboplastin time partial plasma/whole blood SATYA BOYCE Start: 05-15-2018 TROPONIN SATYA HYMAN Start: 05-15-2018 POCT GLUCOSE SATYA BAUTISTA YO Start: 05-15-2018 SALINE LOCK IV SATYA LUTZYO Start: 02-25-2018 Echocardiography Marisela Michel Start: 11-16-2016 APPLY CONTINUOUS CARDIORESPIRATORY MONITOR KAR STRICKLAND Start: 11-16-2016 Assay of troponin quantitative KAR STRICKLAND Start: 11-16-2016 Basic metabolic pane l calcium total KAR KEANEUSEMarsha Start: 11-16-2016 Blood count complete auto&auto difrntl wbc KAR STRICKLAND Start: 11-16-2016 Chest x-ray KAR G LADADAMarsha Start: 11-16-2016 DELIVER OXYGEN VIA N KARLA CANNULA KAR STRICKLAND Start: 11-16-2016 Ecg routine ecg w/le ast 12 lds trcg only w/o i&r KAR STRICKLAND Start: 11-16-2016 Fibrin dgradj produc ts d-dimer qual/semiquan KAR STRICKLAND Start: 11-16-2016 Hereditary retinal d srdrs gen seq analys 15 gen KAR STRICKLAND Start: 11-16-2016 INSERT PERIPHERAL IV ACCESS KAR STRICKLAND Start: 09-26-2009 Colonoscopy Cayetano Bishop oper RT(R) Plan of Treatment Date Care Activity Detail Author Start: 2027 Pneumococcal vaccination Pneum ococcal Vaccine (3 of 3 - PPSV23 or PCV20) [facility] Start: 03-07-2025 DIABETES SCREEN DIABETES SCREEN [facility] Start: 03-07-2025 Diabetes Screening Diabetes Screenin g [facility] Start: 02-26-2025 DIABETES SCREEN DIABETES SCREEN [facility] Start: 12-12-2024 DIABETES SCREEN DIABETES SCREEN [facility] Start: 10-08-2024 Lipid panel [facility] Start: 08-10-2024 LIPID SCREEN LIPID SCREEN [facility] Start: 02-01-2024 COVID-19 Vaccine ( season) COVID-19 Vaccine () [facility] Start: 02-01-2024 Influenza vaccination Influenza Vacc ine (#1) [facility] Start: 06-02-2023 Behavioral Health Screening Behavioral Health Screening [facility] Start: 05-16-2023 Lipid screen Lipid screen [place] Start: 02-01-2023 Diabetes mellitus screening Diabetes Screening [facility] Start: 01-31-2023 Covid-19 Vaccine ( season) Covid-19 Vaccine ( season) [facility] Start: 01-31-2023 [facility] Start: 06-02-2022 DEPRESSION ASSESSMENT DEPRESSION ASS ESSMENT [facility] Start: 2022 RSV Immunization for Adults (1 - Risk 60-74 years 1-dose series) RSV Immunization for Adults (1 - Risk 60-74 years 1-dose series) [facility] Start: 2022 RSV Vaccine (1 - 1-d ose 60+ series) RSV Vaccine (1 - 1-dose 60+ series) [facility] Start: 01-31-2022 Influenza vaccination INFLUENZA (#1) [facility] Start: 07-23-2021 COVID-19 VACCINE (4 - Booster for Pfizer series) COVID-19 VACCINE (4 - Booster for Pfizer series) [facility] Start: 06-02-2021 [facility]ION [facility] Start: 05-17-2021 COVID-19 VACCINE (4 - Booster for Pfizer series) COVID-19 VACCINE (4 - Booster for Pfizer series) [facility] Start: 05-17-2021 Diabetes screen Diabetes screen [place], [place] Start: 01-27-2021 Creatinine measurement Creatinine Le gina [facility] Start: 01-27-2021 Potassium measurement Potassium Leve l [facility] Start: 11-08-2020 Creatinine measurement Creatinine mo nitoring [place] Start: 11-08-2020 Potassium monitoring Potassium monit [place] Start: 10-08-2020 Hepatitis B surface antibody level LDL Cholesterol [facility] Start: 08-10-2020 Hepatitis B surface antibody level LDL CHOLESTEROL [facility] Start: 06-21-2020 [facility] Start: 06-21-2020 Potassium monitoring Potassium monit [facility] Work Phone: Start: 05-09-2020 Adult depression scr eening assessment DEPRESSION SCREENING [facility] Start: 05-06-2020 Creatinine monitoring Creatinine mon [place] Start: 05-06-2020 Potassium monitoring Potassium monit [place] Start: 2020 Creatinine monitoring Creatinine mon [place] Start: 2020 Potassium monitoring Potassium monit [place] Start: 03-09-2020 Creatinine monitoring Creatinine mon [place] Start: 03-09-2020 Potassium monitoring Potassium monit [place] Start: 02-01-2020 Influenza vaccination Flu vaccine (# 1) [place] Start: 01-13-2020 Creatinine monitoring Creatinine [place] Start: 01-13-2020 Potassium monitoring Potassium monit [place] Start: 05-16-2019 Lipid panel Lipid screen [place] Start: 05-16-2019 Lipid screen Lipid screen [place] Start: 01-31-2019 Influenza vaccination Flu vaccine (# 1) [place] Start: 11-17-2017 TSH Qn TSH testing [place] Start: 11-17-2017 TSH testing TSH testing [place] Start: 2017 PROSTATE CANCER SCRE ENING DISCUSSION PROSTATE CANCER SCREENING DISCUSSION [facility] Start: 2017 Prostate specific an tigen measurement Prostate Cancer Screening Discussion [facility] Start: 02-28-2017 PNEUMOCOCCAL (2 - PCV) PNEUMOCOCCAL (2 - PCV) [facility] Start: 02-28-2017 Pneumococcal Vaccine : 50+ Years (2 of 2 - PCV) Pneumococcal Vaccine: 50+ Years (2 of 2 - PCV) [facility] Start: 10-17-2014 COLORECTAL CANCER SCREENING COLORECTAL CANCER SCREENING [facility] Start: 10-17-2014 FECAL OCCULT BLOOD FECAL OCCULT BLOO D [facility] Start: 10-17-2014 Screening for malign ant neoplasm of colon [facility] Start: 2012 Colon cancer screen colonoscopy Colon cancer screen colonoscopy [place] Start: 2012 Screening for malign ant neoplasm of colon Colon cancer screen colonoscopy [place] Start: 2012 Shingles Vaccine (1 of 2) Carty gles Vaccine (1 of 2) [place] Start: 2012 SHINGRIX VACCINE (1 of 2) CARTY GRIX VACCINE (1 of 2) [facility] Start: 2012 Zoster Vaccines (1 of 2) Zoste r Vaccines (1 of 2) [facility] Start: 09-26-2010 Colonoscopy COLONOSCOPY [facility] Start: 09-26-2010 Screening for malign ant neoplasm of colon Colonoscopy [facility] Start: 2007 COLOGUARD (FIT-DNA) COLOGUARD (FIT-D NA) [facility] Start: [address] COLONOGRAPHY [facility] Start: 2007 Screening for malign ant neoplasm of colon [facility] Start: 2007 SIGMOIDOSCOPY SIGMOIDOSCOPY [facility] Start: 1981 DTaP/Tdap/Td vaccine (1 - Tdap) DTaP/Tdap/Td vaccine (1 - Tdap) [place] Start: 1981 DTaP/Tdap/Td Vaccine s (1 - Tdap) DTaP/Tdap/Td Vaccines (1 - Tdap) [facility] Start: 1981 Urine microalbumin profile [facility] Start: 1980 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 ANNUAL PCP TEAM CHRONIC DISEASE VISIT [facility] Start: 1980 BP CONTROLLED (<130/80) BP CONTROLLE D (<130/80) [facility] Start: 1980 HEPATITIS C SCREENING HEPATITIS C [facility] Start: 1980 Hepatitis C screening Hepatitis C [facility] Start: 1980 HIV SCREENING HIV SCREENING [facility] Start: 1980 HIV screening HIV Screening [facility] Start: 1977 HIV screen HIV screen [place] Start: 1977 HIV screening HIV screen [facility] [place], [place] Start: 1974 Depression Monitoring Depression Mon itoring [facility] Start: 1973 DTaP/Tdap/Td vaccine (1 - Tdap) DTaP/Tdap/Td vaccine (1 - Tdap) [place] Start: 1963 MMR Vaccines (1 of 1 - Standard series) MMR Vaccines (1 of 1 - Standard series) [facility] Start: 1962 Echocardiography Echocardiogram [facility] Start: 1962 Hepatitis C screen Hepatitis C deyvi trujillo [place] Start: 1962 Hepatitis C screening Hepatitis C cherelle latham [place] Start: 1962 HIV screening HIV Screening [facility] Start: 1962 Screening for malign ant neoplasm of colon [facility] Start: 1962 Thyroid stimulating hormone measurement TSH Level [facility] End: 01-13-2019 Add On Lab Test Add On Lab Test Lab Add-On One Time for 1 Occurrences starting 01/13/2019 until 01/13/2019 [place] Comment on above: One Time for 1 Occur rences starting 01/13/2019 until 01/13/2019 End: 05-07-2019 Cardiac Stress Test- W Pharm Cardiac Stress Test- W Pharm Cardiac Services Routine One Time for 1 Occurrences starting 05/07/2019 until 05/07/2019 [place] Comment on above: One Time for 1 Occur rences starting 05/07/2019 until 05/07/2019 End: 01-29-2020 CBC Auto Differential CBC Auto Differential Lab Routine Daily for 2 Days starting 01/28/2020 until 01/29/2020 [place] Comment on above: Daily for 2 Days sta rting 01/28/2020 until 01/29/2020 End: 01-30-2020 CBC Auto Differential CBC Auto Differential Lab Routine Daily for 2 Days starting 01/29/2020 until 01/30/2020 [place] Comment on above: Daily for 2 Days sta rting 01/29/2020 until 01/30/2020 CBC Auto Differential [place] Comment on above: Daily until disconti nued starting 06/18/2019, 2 completed End: 03-23-2019 CBC Auto Differential CBC Auto Differential Lab Routine Daily for 2 Days starting 2019 until 03/23/2019 [place] Comment on above: Daily for 2 [...] for 1 Occurrences starting 01/28/2020 until 01/28/[facility] on above: Tomorrow AM for 1 Oc currences starting 01/28/2020 until 01/28/2020 End: 01-29-2020 Comprehensive metabolic 2000 panel Comprehensive Metabolic Panel Lab Routine Tomorrow AM for 1 Occurrences starting 01/29/2020 until 01/29/2020 [facility] Comment on above: Tomorrow AM for [...] Pain ECG STAT 01/12/2019 9:25 PM EDT [facility] End: 05-07-2019 Nasal Cannula Oxygen Nasal Cannula Oxygen Respiratory Care Routine As Needed until discontinued starting 05/07/2019 [facility] Comment on above: As Needed until disc ontinued starting 05/07/2019 End: 05-07-2019 Troponin x1 Troponin x1 Lab STAT One Time for 1 Occurrences starting 05/07/2019 until 05/07/2019 [facility] Comment on above: One Time for 1 Occur rences starting 05/07/2019 until 05/07/2019 Troponin x1 Troponin x1 Lab STAT 05/07/2019 7:02 AM EST [facility] SHOULDER 3V AP/Y VIEW/AXILLARY LEFT (AK) XR SHOULDER 3V AP/Y VIEW/AXILLARY LEFT (AK) Radiology Routine Chronic left shoulder pain Ordered: 01/14/2023 [facility] Work Phone: Comment on above: Ordered: 01/14/2023 [facility] Immunizations Immunization Date Immunization Notes Care Provider Chaz marie 03-08-2019 influenza virus vacc ine, unspecified formulation [facility] 02-29-2016 influenza, high dose seasonal, preservative-free Cayetano Braun RT(R) [facility] 02-29-2016 pneumococcal polysaccharide vaccine, 23 valent Cayetano Braun RT(R) [facility] 02-01-2012 influenza virus vacc ine, whole virus Cayetano Braun RT(R) [facility] Work Phone: 01-31-2011 influenza, seasonal, injectable Cayetano Braun RT(R) [facility] Work Phone: 01-31-2009 influenza virus vacc ine, whole virus Cayetano Braun RT(R) [facility] 01-31-2009 pneumococcal polysaccharide vaccine, 23 valent Cayetano Braun RT(R) [facility] Payers Date Payer Category Payer Self-pay [id number] 2022 Medicaid O [facility] MEDICAID ODM [id number] 2021 Medicaid [facility] MEDICAID [facility] [employer] MEDICAID [id number] 2021-Present [phone] [address] [place] [address] Medicaid [id number] 2021 Medicaid [id number] 2016 Unknown DAVID DE LA TORRE [facility] MEDICAID xxxxxxxxxxx 2016-Present [phone] CLAIMS DEPARTMENT [address] [place] [address] xxxxxxxxxxx [id number] 2016 Medicaid [id number] 1962 Unknown [id number] 1962 Unknown [id number] 1962 Unknown [id number] 1962 Unknown [id number] 1959 Unknown [id number] Unknown [id number] Unknown Unknown [id number] Unknown [id number] Unknown [id number] Unknown [id number] Unknown [id number] Unknown [id number] Unknown [id number] Unknown [id number] Unknown [id number] Social History Date Type Detail Facility Start: 05-17-2018 End: 06-16-2019 Tobacco smoking status NVIS Never smoker [facility] Start: 05-17-2018 End: 05-21-2022 Alcohol intake No [facility] Work Phone: Start: 12-22-2015 Alcohol Comment [facility] [place] [place] Start: 1960 Sex Assigned At Not on file M [facility] [place] Start: 05-07-2019 End: 05-21-2022 Alcohol intake Current non-drinker of alcohol (finding) [place] Start: 01-30-2020 End: 02-26-2022 Tobacco use and exposure Never used [facility] [place] Start: 12-02-2021 End: 12-12-2021 Exposure to SARS-CoV-2 (event) Not sure [place] Start: 12-17-2019 History SDOH Financial 5 [facility] Start: 12-17-2019 History SDOH Food Worry 1 [facility] Start: 12-17-2019 History SDOH Transpo rt Med 2 [facility] Start: 02-26-2022 [facility] End: 06-02-2000 History of tobacco use Current smoker [facility] End: 06-02-2000 History of tobacco use Cigarette Smoker [facility] Start: 02-26-2022 End: 06-24-2023 Alcohol intake Ex-drinker (finding) [facility] Start: 05-21-2022 End: 01-17-2023 History of Social function [facility] Work Phone: How hard is it for y ou to pay for the very basics like food, housing, medical care, and heating Not hard at all [facility] Work Phone: (I/We) worried wheth er (my/our) food would run out before (I/we) got money to buy more. Never true [facility] Work Phone: Start: 06-16-2019 End: 06-16-2019 Tobacco smoking status NHIS Unknown if ever smoked [facility] Start: 1960 Sex Assigned At Male W [facility] Start: 12-31-2021 End: 09-21-2024 Sex Male (finding) [facility] Clinical Notes 06-22-2019 to 05-18-2024 Telephone Encounter - Inga Garcia MA - 05/18/2024 2:12 PM ESTTelephone Encounter - Inga Garcia MA - 05/18/2024 2:12 PM ESTTelephone Encounter - Inga Garcia MA - 05/11/2024 3:04 PM EST Note Date & Type Note Facility 05-18-2024 Note Anni called back in. Patient's referral is considered external. We would not be able to schedule him for at least 6 months. Can refer to another GI office. [facility] 05-18-2024 Telephone encounter Note Anni called back in. Patient's referral is considered external. We would not be able to schedule him for at least 6 months. Can refer to another GI office. [facility] 05-18-2024 Miscellaneous Notes Anni called back in. [...] Patient's further questions if applicable: Maria Elena ([facility]) returned call to check the status of referral for patient. Informed Maria Elena that referral not yet in patient's chart for scheduling. Maria Elena can be reached at [phone] at [address] upon confirmation of referral received. Please advise. Were all questions from office addressed or relayed to the patient from encounter: Yes Name of caller: Maria Elena Contact phone number: [phone] Relationship to Patient: Benedicto Ross- [address] Provider: N/A Practice[place] [facility]: Chief Complaint/Reason for Call: Maria Elena [...] their call: No documented in this encounter [facility] 05-11-2024 Note Called and spoke elena Hutton. I advised her we do not have the referral still. She will update Maria Elena. [facility] 05-11-2024 Telephone encounter Note Called and spoke with Anni. I advised her we do not have the referral still. She will update Maria Elena. [facility] 05-10-2024 Telephone encounter Note Message released to patient as written. Patient's further questions if applicable: Maria Elena (Benedicto Ross) returned call to check the status of referral for patient. Informed Maria Elena that referral not yet in patient's chart for scheduling. Maria Elena can be reached at [phone] at [phone] upon confirmation of referral received. Please advise. Were all questions from office addressed or relayed to the patient from encounter: Yes [facility] 05-03-2024 Telephone encounter Note Name of caller: Maria Elena Contact phone number: [phone] Relationship to Patient: Benedicto Ross- [address] Provider: N/A Practice[place] [facility]: Chief Complaint/Reason for Call: Maria Elena [...] business hours to return their call: No [facility] 12-10-2023 Telephone encounter Note The number listed is ringing in as a fax #. Loraine Song [facility] 12-10-2023 Miscellaneous Notes The number listed is ringing in as a fax #. Loraine Song Annamaria from [employer] left voicemail stating patient would like to schedule appointment. Please call patient at [phone] to schedule appointment. documented in this encounter [facility] 12-09-2023 Telephone encounter Note Annamaria from [facility] left voicemail stating patient would like to schedule appointment. Please call patient at [phone] to schedule appointment. [facility] 11-22-2022 Miscellaneous Notes Called patient about their No Show appointment with the clinic on 11/22. Patient requested to reschedule their appointment. Rescheduled patient to 12/13. documented in this encounter [facility] 11-20-2022 Miscellaneous Notes Called patient to remind them about their appointment with the clinic on 11/22 . Patient confirmed appointment. documented in this encounter [facility] 08-26-2022 Note HNO ID: [id number] Author: Mainor Francisco MD Service: ? Author Type: Physician Type: Progress Notes Filed: 08/26/2022 3:26 PM Note Text: ?I was the supervising attending for this patient at today's clinic.? Mainor Francisco MD [facility] 08-23-2022 Note HNO ID: [id number] Author: Hemanth Kennedy MD Service: ? Author [...] mobility with his left shoulder. Is prescribed [place] and tramadol by his nursing facility. Pain [...] total hip replacement PAST SURGICAL HISTORY OF 2004 total hip replacement left FAMILY HISTORY Problem [...] degr (more content not included)... [facility] 08-21-2022 Miscellaneous Notes Called patient to remind them about their appointment with the Clinic on 08/23. Patient confirmed appointment. documented in this encounter [facility] 08-02-2022 Miscellaneous Notes Called patient to schedule an appointment for a left shoulder referral. Scheduled patient for 08/23. documented in this encounter [facility] 11-11-2022 Miscellaneous Notes OK thank you. Lorenza Cooper, RN Missed appt letter returned regarding 03/04/2022 appt. Post Office states "Attempted, Return to Sender - Unable to Forward". Also called pt to leave message but phone number not in service. documented in this encounter [facility] 12-13-2021 History of Presen t illness [...] AM PAGER/CONTACT #: documented in this encounter [facility] 12-11-2019 History of Past i llness [...] of this encounter (statuses as of 12/13/2021) [facility] History of Past illness Narrative* Problem [...] of this encounter (statuses as of 02/26/2022) [facility] History of Past illness Narrative* Problem [...] of this encounter (statuses as of 02/27/2022) [facility] History of Past illness Narrative* Problem [...] Pain in joint, pelvic region and thigh 200 6 11/29/2013 documented as of this encounter (statuses as of 04/12/2022) [facility] History of Past illness Narrative* Problem [...] Pain in joint, pelvic region and thigh 200 6 11/29/2013 documented as of this encounter (statuses as of 08/02/2022) [facility] History of Past illness Narrative* Problem [...] of this encounter (statuses as of 08/21/2022) [facility] History of Past illness Narrative* Problem [...] of this encounter (statuses as of 11/20/2022) [facility] History of Past illness Narrative* Problem [...] Pain in joint, pelvic region and thigh 200 6 11/29/2013 documented as of this encounter (statuses as of 11/22/2022) [facility] History of Past illness Narrative* Problem [...] of this encounter (statuses as of 01/21/2023) [facility]03-15-2020 History of Present illness Narrative* Lisa Calero MA - 08/15/2019 1:50 PM EDTSummary: old cardiac testing from [facility] Lexiscan EKG Study Date: 08/11/19 Summary: Stress test EKG portion report: Reason for study: Chest pain, TIA 2012, coronary artery disease with WI 2005, pulmonary embolus, hypertension, hyperlipidemia, anemia, chronic [...] pain, TIA 2012, coronary artery disease with WI 2005, pulmonary embolus, hypertension, hyperlipidemia, anemia, chronic [...] Dhiraj Monae 08/11/2019 03:26 PM Ordering Physician: Florencio Harrison Referring Physician: NO PCP GIVEN Performed By: [facility] PATIENT NAME: NATALIE GERBER [address] [facility] [address] MEDICAL REC #: [id number] [place] [address] ADMIT DATE: 08/10/19 DISCHARGE DATE: ATTENDING PHY: Lisa Montez DO ECHOCARDIOGRAM REPORT documented [facility] Hospital course Narrative * Satya Boyce DO - 06/24/2019 10:03 AM EST Addendum dictated documented in this encounterSUMMA Work Phone: [phone] History of Present illness Narrative* Dominga Villela DTR - 06/24/2019 7:22 AM EST Nutrition update completed. Chart reviewed. [facility] * Melvin Hardin RN - 06/24/2019 1:07 AM EST Pt refused lab work. Dr. Boyce notified * Nereida Ricks PT - 06/23/2019 11:47 AM EST Physical Therapy Facility/Department: [facility] MED SURG Daily Treatment Note NAME: Natalie Gerber : 1960 Date of Service: 06/23/2019 Discharge Recommendations: Subacute/Residential Facility Assessment Body structures, Functions, Activity limitations: [...] (coronary artery disease), CHF (congestive heart failure) ([facility]), Depression, Diverticulitis, Diverticulosis, GERD (gastroesophageal reflux disease), History of pulmonary embolus (PE), Hyperlipidemia, Hypertension, WI, old, Myocardial infarct ([facility]), myocardial infarction, LISA on CPAP, Pain, Pneumonia, Suicide ([facility]), Thyroid disease, and Unspecified cerebral [...] Timed Code Treatment Minutes: 10 Minutes(Treatment procedure) Nereida Ricks, PT * Satya Boyce DO - 06/22/2019 [...] mg 20 mg Oral BID WC Radha Lujan RN 20 mg at 06/21/19 1710 sodium chloride flush 0.9 % injection 3 mL 3 mL Intravenous Q8H Arian Dimas MD 3 mL at 06/22/19 0432 aspirin EC tablet 81 mg 81 mg Oral Daily Satya Boyce, DO 81 mg at 06/21/19 0836 atorvastatin (LIPITOR) tablet 20 mg 20 mg Oral Nightly Satya Vasquezo, DO 20 mg at 06/21/19 2028 acetaminophen (TYLENOL) tablet 650 mg 650 mg Oral Q4H PRN Satya Boyce, DO carvedilol (COREG) tablet 6.25 mg 6.25 mg Oral Daily Satya Boyce, DO 6.25 mg at 06/21/19 0836 citalopram [...] 1960 Date of Service: 06/21/2019 Discharge Recommendations: Subacute/Residential Facility Assessment Performance deficits / Impairments: Decreased [...] History of pulmonary embolus (PE), Hyperlipidemia, Hypertension, WI, old, Myocardial infarct (HCC), myocardial infarction, LISA [...] SNF on 06/16/2019, fell in parkinglot of [employer] after L LE giving out on him [...] president, (+) 911) Perception Overall Perceptual Status: WF((+) finger to nose) Sensation Overall Sensation Status: [...] [facility]. Goals and/or treatment [...] AM-PAC Inpatient Daily Activity Raw Score: 19 (06/21/19 1132) AM-PAC Inpatient ADL T-Scale Score : 40.22 (06/21/19 1132) ADL Inpatient CMS 0-100% Score: 42.8 (06/21/19 1132) ADL Inpatient CMS G-Code Modifier : CK (06/21/19 113) Goals Short term goals Time Frame for [...] mg 20 mg Oral BID WC Radha Lujan RN 20 mg at 06/20/19 1636 sodium chloride flush 0.9 % injection 3 mL 3 mL Intravenous Q8H Arian Dimas MD 3 mL at 06/20/19 2144 aspirin EC tablet 81 mg 81 mg Oral Daily Satya Boyce DO 81 mg at 06/20/19 0913 atorvastatin (LIPITOR) tablet 20 mg 20 mg Oral Nightly Satya Boyce DO 20 mg at 06/20/192143 acetaminophen (TYLENOL) tablet 650 mg 650 mg Oral Q4H PRN Hernadez S Bonyo, DO carvedilol (COREG) tablet 6.25 mg 6.25 mg Oral Daily Hernadez S Bonyo, DO 6.25 mg at 06/20/19 09 citalopram (CELEXA) tablet 20 mg 20 mg Oral Daily Hernadez S Bonyo, DO 20 mg at 06/20/19 09 clopidogrel (PLAVIX) tablet 75 mg 75 mg Oral Daily Hernadez S Bonyo, DO 75 mg at 06/20/19 09 furosemide (LASIX) tablet 20 mg 20 mg Oral Daily Hernadez S Bonyo, DO 20 mg at 06/20/19 09 levothyroxine (SYNTHROID) tablet 25 mcg 25 mcg Oral Daily Hernadez S Bonyo, DO 25 mcg at 06/20/19 0450 pantoprazole (PROTONIX) tablet 40 mg 40 mg Oral QAM AC Hernadez S Bonyo, DO 40 mg at 06/20/19 045 oxyCODONE (ROXICODONE) immediate release tablet 5 mg 5 mg Oral Q6H PRN Hernadez S Bonyo, DO 5 mg at 06/21/19 0351 QUEtiapine (SEROQUEL) tablet 100 mg 100 mg [...] Order Interval History: Admitted s/p fall at [facility] parking LOT Chart reviewed and d/w staff [...] Radha Lujan, RN 20 mg at 06/20/19 09 sodium chloride flush 0.9 % injection 3 mL 3 mL Intravenous Q8H Arian Dimas MD 3 mL at 06/19/192026 aspirin EC tablet 81 mg 81 mg Oral Daily Satya Boyce DO 81 mg at 06/20/19 09 atorvastatin (LIPITOR) tablet 20 mg 20 mg Oral Nightly Satya Boyce DO 20 mg at 06/19/192026 acetaminophen (TYLENOL) tablet 650 mg 650 mg Oral Q4H PRN Hernadez S Bonyo, DO carvedilol (COREG) tablet 6.25 mg 6.25 mg Oral Daily Hernadez S Bonyo, DO 6.25 mg at 06/20/19 09 citalopram (CELEXA) tablet 20 mg 20 mg Oral Daily Hernadez S Bonyo, DO 20 mg at 06/20/19 09 clopidogrel (PLAVIX) tablet 75 mg 75 mg Oral Daily Hernadez S Bonyo, DO 75 mg at 06/20/19 09 furosemide (LASIX) tablet 20 mg 20 mg Oral Daily Hernadez S Bonyo, DO 20 mg at 06/20/19 09 levothyroxine (SYNTHROID) tablet 25 mcg 25 mcg Oral Daily Hernadez S Bonyo, DO 25 mcg at 06/20/19 045 pantoprazole (PROTONIX) tablet 40 mg 40 mg Oral QAM AC Hernadez S Bonyo, DO 40 mg at 06/20/19 045 oxyCODONE (ROXICODONE) immediate release tablet 5 mg 5 mg Oral Q6H PRN Hernadez S Bonyo, DO 5 mg at 06/20/19 0915 QUEtiapine (SEROQUEL) tablet 100 mg 100 mg [...] be [facility]. * Satya Boyce DO - 06/19/2019 8:30 AM EST Hospitalist Progress Note Subjective: Admit Date: PCP: SATYA BOYCE DO Advance Directive: No Order Interval History: Admitted s/p fall at [facility] parking LOT Chart reviewed and d/w staff [...] BID Radha Lujan RN 20 mg at 06/18/19 1613 sodium chloride flush 0.9 % injection 3 mL 3 mL Intravenous Q8H Arian Dimas MD 3 mL at 06/18/19 1255 aspirin EC tablet 81 mg 81 mg Oral Daily Satya Boyce DO 81 mg at 06/18/19 0906 atorvastatin (LIPITOR) tablet 20 mg 20 mg Oral Nightly Satya Francisco Bonyo, DO 20 mg at 06/18/192050 acetaminophen [...] Hernadez S Bonyo, DO 5 mg at 06/19/19137 QUEtiapine (SEROQUEL) tablet 100 mg 100 mg [...] Discharge planning: Pending/complicated SATYA BOYCE DO * eNreida Hill RN - 06/18/2019 10:34 AM EST [...] not acceptable. Will continue to monitor. * Nereida Ricks, PT - 06/18/2019 9:45 AM EST Physical Therapy Facility/Department: [facility] MED SURG Initial Assessment NAME: Natalie Gerber : 1960 Date of Service: 06/18/2019 Discharge Recommendations: Subacute/Residential Facility Assessment Body structures, Functions, Activity limitations: [...] (coronary artery disease), CHF (congestive heart failure) ([facility]), Depression, Diverticulitis, Diverticulosis, GERD (gastroesophageal reflux disease), History of pulmonary embolus (PE), Hyperlipidemia, Hypertension, WI, old, Myocardial infarct ([facility]), myocardial infarction, LISA on CPAP, Pain, Pneumonia, Suicide ([facility]), Thyroid disease, and Unspecified cerebral [...] with rollator although has fallen 2x since Fri; states he struggles with ADLs Cognition Objective [...] light within reach, Gait belt AM-PAC Score [facility] Inpatient Mobility Raw Score : 13 (06/18/19932) [facility] Inpatient T-Scale Score : 36.74 (06/18/19932) Mobility Inpatient CMS 0-100% Score: 64.91 (06/18/19932) Mobility Inpatient [facility] G-Code Modifier : CL (06/18/19932) Goals Short [...] Time Individual Concurrent Group Co-treatment Time In 917 Time Out 0930 Minutes 12 Patient s Physical Therapy Plan of Care supervision is transferred to [facility] Rehab Department Physical Therapist. Nereida Ricks, PT * Radha Lujan RN - 06/18/2019 4:26 AM EST This RN called to pt's room for pain medications. This RN notified pt that oxycodone is not available to be given until 632 but that tylenol is an available option [...] physician. documented in this encounterSUMMA Work Phone: [phone]) 182-283601-21-2020 Hospital Discharge instructions* Discharge Instr - EDUARDO* [...] Discharging Nurse: Daniela Bowling Discharging Hospital Unit/Room#: 1506/916669 Discharging Unit Emergency Contact: Extended Emergency Contact Information Primary Emergency Contact: Jamel Gerber Address: [address] [place] [address] Relation: Spouse Past Surgical History: Past Surgical [...] stroke Z86.73 AVN (avascular necrosis of bone) ([facility]) M87.00 Back pain M54.9 Recurrent [...] Independent Dressing Independent Toileting Independent Feeding Independent Other Spatial Scientist Assisted Med Delivery whole Wound Care Documentation [...] Readmission: 20 Discharging to Facility/ Agency Name: [facility] Address:[address], [place], [place] Dialysis Facility (if applicable) Name: Address: Dialysis Schedule: Phone: Fax: Ball Rolling Machine Operator/Tele Tech signature: ICIAN SECTION Prognosis: fair Condition at [...] H&P: no PHYSICIAN SIGNATURE: [facility] Work Phone: Evaluation note* Diagnosis Sciatica of left side- Primary Sciatica Recurrent falls Personal history of fall Mood disorder (HCC) Unspecified episodic mood disorder documented in this encounter [facility] Work Phone: Evaluation note* Diagnosis Chronic left shoulder pain- Primary Pain in joint, shoulder region documented in this encounter [facility] noteNo assessment information availableWSumma [facility] Work Phone: Reason for referral (narrative)* Diagnostic Procedure Only (Routine) - Pending Review Specialty Diagnoses / Procedures Referred By Brittney riley Referred To Contact XR IMAGING Diagnoses Chronic left shoulder pain Procedures XR SHOULDER 3V AP/Y VIEW/AXILLARY LEFT (AK) RADEX SHOULDER COMPLETE MINIMUM 2 VIEWS Chris Burton MD [address] [place] [address] [place] [address] Referral ID Status Reason Start Date Expiration Date Visits Requested Visits Authorized [id number] Pending Review Auto-Generat ed Referral 01/14/2023 02/13/2024 1 1 [facility] for referral (narrative)No reason for referral information availableWSumma Health [facility] Work Phone: Summary Purpose Family History No [...] FoundNo Family History Records Found Advance Directives No Advanced Directives Records FoundDocuments on File Type Date Recorded Patient Deicer Finisher Expl anation Advance Directives and Livin g Will Advance Directives and Livin g Will 09/25/2012 10:39 AM Advance Directives and Livin g Will 10/02/2012 10:47 AM Advance Directives and Livin g Will 02/11/2013 3:20 PM Advance Directives and Livin g Will 02/20/2013 6:43 PM Advance Directives and Livin g Will 02/21/2013 11:14 AM Power of Well Service Derrick Worker Latest Code Status on File Code Status Date Activated Date Inactivated Comments Full Code 11/17/2016 3:42 PM 11/20/2016 10:42 PM Full Code 11/17/2016 3:03 PM 11/17/2016 3:42 PM Full Code 09/24/2016 9:24 PM 09/26/2016 2:53 PM Full Code 11/10/2015 1:30 AM 11/13/2015 12:28 PM Full Code 05/23/2014 11:46 PM 05/24/2014 4:14 PM Documents on File Type Date Recorded Patient Deicer Finisher Expl anation ACP-Advance Directive ACP-Advance Directive 09/25/2012 10:39 AM ACP-Advance Directive 10/02/2012 10:47 AM ACP-Advance Directive 02/11/2013 3:20 PM ACP-Advance Directive 02/20/2013 6:43 PM ACP-Advance Directive 02/21/2013 11:14 AM ACP-Power of Well Service Derrick Worker Documents on File Type Date Recorded Patient Deicer Finisher Expl anation Advance Directive(s) Advance Directive(s) 12/11/2021 [...] Will No June 16 6:14pm Power of Well Service Derrick Worker No June 16, 2019 6:14pm Advance Directive Response Recorded Date/ Time Living Will No June 16 7:14pm Power of Well Service Derrick Worker No June 16, 2019 7:14pm Date Activated [...] Order Discussed With: Patient Hospital Course Note [facility] Patient: NATALIE GERBER [address] MR#: [id number] [place], [place] [address] : 1960 Ord. : Dept: PDOC Loc: 9 934-1 Discharge Summary Service Dt: 02/26/18 Report#: [id number] Adm Dt: 02/24/18 Dis Dt: Discharge Summary - Principal/Other Diagnoses (1) Facial paresthesia Status: Acute (2) Arm paresthesia, left Status: Acute (3) DVT prophylaxis Status: Acute (4) Dyspnea Status: Acute (5) Morbid obesity Status: Acute (6) Diabetes Status: Chronic Qualifiers: Diabetes mellitus type: type 2 Diabetes mellitus usp insulin use: without link trainer mechanic use (7) CHF exacerbation Status: Suspected Qualifiers: Heart failure type: unspecified Qualified Code(s): I50.9 - Heart failure, unspecified (8) Chronic back pain Status: Chronic Qualifiers: Back pain location: back pain in unspecified location Back pain laterality: midline Qualified Code(s): M54.9 - Dorsalgia, unspecified (9) GERD (gastroesophageal reflux dis (more content not included)... Note HNO ID: [id number]: [facility]) Sarabjit: General Internal MedicineAuthor Type: Nurse PractitionerType: Discharge SummariesFiled: 06/09/2018 2:23 PMNote Text: DISCHARGE SUMMARYPATIENT NAME: Natalie Gerber Code Status: Not on fileMRN: [id number] Readmission Risk Score: 15 The 30 day [...] Team Members: Treatment Team:Attending Provider: Jt ClearyConsulting: Florencio Rendon CONDITION AT DISCHARGE: StableREASON I WAS (more content not included)... Note Send Summary: Discharge Summ philippe Providers: Provider RoleProvider Name ReferringFrate, Marquis Brianna Fuentes Benson S Note Recipients: Satya Boyce MD - [id number] [] Discharge: Summary: Admission Date: .12-Dec-2018 16:39:00 Discharge Date: 18-Dec-2018 Admission Reason: back pain, inability to ambulate(1) Final Discharge Diagnoses: Benign essential hypertension, Coronary artery disease, H/O spinal fusion, History of total left hip replacement, Morbid obesity with BMI of 50.0-59.9, adult, Stroke, Procedures: none Condition at Discharge: stable Disposition at Discharge: [facility] Vital Signs: T PRBPSpO2 Value36.22393425/6897% Date/Time12/18 6: 6: 6: 6: 6:00 Range(36C - 36.3C ) (69 - 75 ) (18 - 18 ) (101 - 116 )/ (65 - 68 ) (95% - 97% ) Hospital Course: Mr. Gerber is a 58 y/o with PMH of multilevel Spondylosis, CAD last [facility] 12/01/2018 (clean) hx of WI, hx of PE 99, ADHD, CVA s/p TPA 2014, PE, CHF, GERD, presented to [facility] with worsening Back pain. he (more content not included)... Note Patient: NATALIE GERBER MR N: [id number] Age: 58 years Sex: Male : 1960 Associated Diagnoses: None Author: JUSTIN LUCERO, [facility] Hospital Course Admitted from: from home. She [...] included)... Note Patient: NATALIE GERBER MR N: [id number] Age: 59 years Sex: Male : 1960 Associated Diagnoses: None Author: ALLEGRA LUCERO, [facility] Course 59-year-old male with inability to ambulate and severe pain on his chronic back. Unclear what causes acute exacerbation. Discussed with patient and dynamiter. [place] filled out and we are waiting for transfer to snf Discharge disposition : ECF Discharge diagnosis : [...] 20 mg oral tablet 1 caps, ORAL, DINESH (more content not included)... Note Send Summary: Discharge [facility] Providers: Provider RoleProvider Name Chuy Bauman Jamie PrimaryBonyo, Benson S Note Recipients: Satya Boyce MD - [id number] [] Discharge: Summary: Admission Date: .26-Mar-2019 20:58:00 Discharge Date: 27-Mar-2019 Attending Physician at Discharge: Chuy Mc Admission Reason: chest pain Final Discharge Diagnoses: Anemia, Chest pain, Morbid obesity with BMI of 50.0-59.9, adult, Procedures: Low risk cardiac protocol Condition at Discharge: Satisfactory Disposition at Discharge: .Home Vital Signs: T PRBPSpO2 [id number]/7296% Date/Time03/27 8: 8: 8: 8: 8:00 Range(36C [...] included)... Note Send Summary: Discharge [facility] Providers: Provider RoleProvider Name Servando Becker Thomas ConsultingSandhills Regional Medical CenterAmrit Benson S Note Recipients: Satya Boyce MD - [id number] [] Servando Hernández MD Discharge: Summary: Admission Date: .08-Oct-2019 13:30:00 Discharge Date: 12-Oct-2019 Attending Physician at Discharge: Chuy Mc Admission Reason: Chest pain(1) Final Discharge Diagnoses: Benign essential hypertension, Chest pain, Coronary artery disease, H/O spinal fusion, History of cholecystectomy, Morbid obesity with BMI of 50.0-59.9, adult, Potential for self care deficit, Pulmonary embolism, Procedures: none Condition at Discharge: Fair Disposition at Discharge: Residential Facility Vital Signs: T PRBPSpO2 Value36.05243662/6597% Date/Time10/11 16: 16: 16: 16: 16:00 Range(36.1C - 36.8C ) (70 - 88 ) (18 - 20 ) (134 - 183 )/ (61 - 80 ) (94% - 97% ) Hospital Course: History of Present Illness: Admission Re (more content not included)... Note PATIENT: NATALIE GERBER DICAL RECORD #: [id number] ADMISSION DATE: 01/27/2020 DISCHARGE DATE: 01/31/2020 DATE OF : 1960 AGE: 59 ADMITTING PHYSICIAN: Satya Boyce D.O. ATTENDING PHYSICIAN: Satya Boyce D.O. DICTATING PHYSICIAN: Satya Boyce D.O. DISCHARGE SUMMARY Reason for Admission and Hospital Course: This is a 59-year-old white male with multiple complicated medical problems including chronic back pain secondary to spinal stenosis, who presented from the detention or he is not very clear where [...] not included)... Discharge Instructions * Instructions* Lisa Thompson MD - 01/13/2019 Increase Lasix from 20 [...] Care Everywhere. * Edema: Leg and Ankle ([place] Islander) documented in this encounter* Instructions* Brandon Dahl MD - 02/17/2019 Use your pain medications at home as needed. Expect slow but steady improvement. Call your doctor today to make follow-up appointment. * Attachments The following attachments cannot be sent through Care Everywhere. * Sciatica ([place] Islander) documented in this encounter* Discharge Instr - [...] at most local grocery stores, pharmacies, and [employer]stores. ? If you have any questions about [...] Nurse: Renetta Max RN Discharging Hospital Unit/Room#: 1533/507954 Discharging Unit Emergency Contact: Extended Emergency Contact Information Primary Emergency Contact: BuzzJamel Address: [address] [place] [address] Relation: Spouse Past Surgical History: Past Surgical [...] stroke Z86.73 AVN (avascular necrosis of bone) ([facility]) M87.00 Isolation/Infection: Isolation No Isolation Nurse Assessment: [...] Assisted Dressing Assisted Toileting Assisted Feeding Independent Other Spatial Scientist Independent Med Delivery none Wound Care Documentation [...] select all that are sent with patient): Glasses RN SIGNATURE: MANAGEMENT/SOCIAL WORK SECTION Inpatient Status Date: 03/08/2019 Readmission Risk Assessment Score: Readmission Risk Risk of Unplanned Readmission: 14 Discharging to Facility/ Agency Name: [facility] Address:[address] [place] [address] Dialysis Facility (if applicable) Name: Address: Dialysis Schedule: Phone: Fax: Ball Rolling Machine Operator/Tele Tech signature: ICIAN SECTION Prognosis: fair Condition at Discharge: stable Rehab Potential (if transferring to Rehab): fair Recommended Labs or Other Treatments After Discharge: cbc/cmp Physician Certification: I certify the above information and transfer of Natalie Gerber is necessary for the continuing treatment of the diagnosis listed and that he requires Residential Facility for less 30 days. Update Admission H&P: no PHYSICIAN SIGNATURE: documented in this encounter* Discharge Instr - Activity* Staya Boyce DO - 01/31/2020 8:37 AM EDT [...] most local grocery stores, pharmacies, and chain super-stores. ? If you have any questions about [...] Extended Emergency Contact Information Primary Emergency Contact: Jamel Gerber Address: [address] [place] [address] Relation: Spouse Past Surgical History: Past Surgical [...] Independent Dressing Independent Toileting Independent Feeding Independent Other Spatial Scientist Independent Med Delivery whole Wound Care Documentation and Therapy: Elimination: Continence: Bowel: No Bladder: No Urinary Catheter: None Colostomy/Ileostomy/Ileal Conduit: No Date of Last BM: No intake or output data in the 24 hours ending 01/26/20 2315 No intake/output data recorded. Safety Concerns: At [...] Readmission: 0 Discharging to Facility/ Agency Name: [facility]. Address: [address] [place], [place] [address] [place] [address] Dialysis Facility (if applicable) Name: Address: Dialysis Schedule: Phone: Fax: Ball Rolling Machine Operator/Tele Tech signature: PHYSICIAN SECTION Prognosis: Fair Condition at Discharge: Stable Rehab Potential (if transferring to Rehab): fair Recommended Labs or Other Treatments After Discharge: cbc/cmp in 5 days Physician Certification: I certify the above information and transfer of Natalie Gerber is necessary for the continuing treatment of the diagnosis listed and that he requires Residential Facility for greater 30 days. Update Admission [...] Agent's Name Healthcare Agent's Phone Number 03/21/19 [phone] No, patient does not have an advance directive for healthcare treatment -- -- -- -- -- Admitting Physician: Satya Boyce DO PCP: SATYA BOYCE DO Discharging Nurse: Discharging Hospital Unit/Room#: 3340/9032T Discharging Unit Phone Number: Emergency Contact: Extended Emergency Contact Information Primary Emergency Contact: Jamel Gerber Address: [address] [place], [place] [id number] Relation: Spouse Past Surgical History: Past Surgical [...] (143.3 kg) Mental Status: {IP PT MENTAL STATUS:11111} IV Access: {[facility] IV ACCESS:003931145} Nursing Mobility/ADLs: Walking {CHP DME ADLs:986298993} Transfer {CHP DME ADLs:546403022} Bathing {CHP DME ADLs:728402944} Dressing {CHP DME ADLs:620917688} Toileting {CHP DME ADLs:161060263} Feeding {CHP DME ADLs:001277762} Other Spatial Scientist {P DME ADLs:986642410} Med Delivery { EDUARDO MED Delivery:385860353} Wound Care Documentation and Therapy: Elimination: Continence: Bowel: {YES / NO:} Bladder: {YES / NO:} Urinary Catheter: {Urinary Catheter:036983414} Colostomy/Ileostomy/Ileal Conduit: {YES / NO:} Date of Last BM: No intake or output data in the 24 hours ending 03/22/19 1346 No intake/output data recorded. Safety Concerns: { EDUARDO Safety Concerns:430101630} Impairments/Disabilities: { EDUARDO Impairments/Disabilities:841383744} Nutrition Therapy: Current Nutrition Therapy: { EDUARDO Diet List:103885052} Routes of Feeding: {P DME Other Feedings:882895107} Liquids: {Epilepsy Physician liquid thickness:47465} Daily Fluid Restriction: {P DME Yes amt example:312846682} Last Modified Barium Swallow with Video (Video Swallowing Test): {Done Not Done Date:606550499} Treatments at the Time of Hospital Discharge: Respiratory Treatments: Oxygen Therapy: {Therapy; copd oxygen:66896} Ventilator: {[facility] Vent List:148175745} Rehab Therapies: {THERAPEUTIC INTERVENTION:8952659242} Weight Bearing Status/Restrictions: {[facility] Weight Bearin} Other Medical Equipment (for information only, NOT a DME order): {EQUIPMENT:938859153} Other Treatments: Patient's personal belongings (please select all that are sent with patient): {[facility] DME Belongings:689428889} RN SIGNATURE: {Esignature:248764769} CASE MANAGEMENT/SOCIAL WORK SECTION Inpatient Status Date: observation Readmission Risk Assessment Score: Readmission Risk Risk of Unplanned Readmission: 19 Discharging to [facility]/ Agency Name: [facility] [address] [place] [address] Dialysis Facility (if applicable) Name: Address: Dialysis Schedule: Phone: Fax: Ball Rolling Machine Operator/Tele Tech signature: at1:47 PM PHYSICIAN SECTION Prognosis: fair Condition at Discharge: stable Rehab Potential (if transferring to Rehab): fair Recommended Labs or Other Treatments After Discharge: cbc/cmp in 5 days Physician Certification: I certify the above information and transfer of Natalie Gerber is necessary for the continuing treatment of the diagnosis listed and that he requires Residential Facility for less 30 days. Update Admission H&P: no PHYSICIAN SIGNATURE: * Additional Instructions* Sunny Mathur MD - 03/20/2019 documented in this [...] mg 20 mg Oral BID Hernadez S Pedroo, DO Stopped at 03/09/192002 aspirin chewable tablet [...] Bonyo, DO 20 mg at 03/11/19 0844 levothyroxine (SYNTHROID) tablet 25 mcg 25 mcg [...] S Bonyo, DO 40 mg at 03/11/19 0844 oxyCODONE (ROXICODONE) immediate release tablet 5 mg 5 mg Oral Q6H PRN Hernadez S Bonyo, DO 5 mg at 03/11/19 0309 enoxaparin (LOVENOX) injection 40 mg 40 mg Subcutaneous Daily Hernadez S Bonyo, DO 40 mg at 03/11/19 0843 methylphenidate (RITALIN) tablet 10 mg 10 mg Oral BID WC Hernadez S Bonyo, DO 10 mg at 03/11/19 0843 carvedilol (COREG) tablet 12.5 mg 12.5 mg Oral Daily Darion Humphrey MD 12.5 mg at 03/11/19 0843 Allergies Allergen Reactions Fish-Derived Products Ketorolac Tromethamine Nubain [Nalbuphine Hcl] Nubain [Nalbuphine Hcl] Date 03/11/19 0000 - 03/11/199 Shift 2431-8736 2406-1260 3954-0196 24 Hour Total INTAKE P.O.(mL/kg/hr) 300(0.3) 0 [...] Problems Hypertension >>Meds Reevaluate). SIGNATURE: Darion Humphrey MD,FACC,FASNC,CCDS;[facility] PATIENT NAME: Natalie Gerber DATE: 03/11/2019 PAGER: [phone] * Yoselin Max RN - 03/11/2019 9:20 [...] Hernadez S Bonyo, DO 20 mg at 03/10/19 0849 citalopram (CELEXA) tablet 20 mg 20 mg Oral Daily Hernadez S Bonyo, DO 20 mg at 03/10/19 0849 clopidogrel (PLAVIX) tablet 75 mg 75 mg Oral BID Hernadez S Bonyo, DO 75 mg at 03/10/19 0849 furosemide (LASIX) tablet 20 mg 20 mg Oral Daily Hernadez S Bonyo, DO 20 mg at 03/10/19 0849 levothyroxine (SYNTHROID) tablet 25 mcg 25 mcg Oral Daily Hernadez S Bonyo, DO 25 mcg at 03/10/19 0616 lisinopril (PRINIVIL;ZESTRIL) tablet 2.5 mg 2.5 mg Oral Daily Hernadez S Bonyo, DO 2.5 mg at 849 nitroGLYCERIN (NITROSTAT) SL tablet 0.4 mg 0.4 mg Sublingual Q5 Min PRN Hernadez S Bonyo, DO pantoprazole (PROTONIX) tablet 40 mg 40 mg Oral QAM AC Hernadez S Bonyo, DO 40 mg at 03/10/19 0613 oxyCODONE (ROXICODONE) immediate release tablet 5 mg 5 mg Oral Q6H PRN Hernadez S Bonyo, DO 5 mg at 03/10/19 0848 enoxaparin (LOVENOX) injection 40 mg 40 mg Subcutaneous Daily Satya Francisco Bonyo, DO 40 mg at 03/09/19 0150 methylphenidate (RITALIN) tablet 10 mg 10 mg Oral BID WC Hernadez S Bonyo, DO 10 mg at 03/10/19 0848 carvedilol (COREG) tablet 12.5 mg 12.5 mg Oral Daily Darion Humphrey MD 12.5 mg at 03/10/19 0850 Allergies Allergen Reactions Fish-Derived Products Ketorolac Tromethamine Nubain [Nalbuphine Hcl] Nubain [Nalbuphine Hcl] Date 03/10/19 0000 - 03/10/19 2359 Shift [id number] 2965-4859 3256-8244 24 Hour Total INTAKE Shift Total(mL/kg) OUTPUT [...] (!) 323 lb 6.2 oz (146.7 kg), DyD667 %. Vital signs are normal. Output: Producing [...] Problems Hypertension >>Meds Reevaluate). SIGNATURE: Darion Humphrey MD,FACC,FASNC,CCDS;[facility] PATIENT NAME: Natalie Gerber DATE: 03/10/2019 PAGER: [phone] * Dominga Villela DTR - 03/10/2019 8:59 AM EDT Nutrition rescreen completed. Chart reviewed. Patient to be monitored and followed by the [facility] pharmacy technician. * Jyotsna Copeland - 03/09/2019 2:19 PM EDT Physical Therapy Facility/Department: [facility] TELEMETRY Initial Assessment NAME: Natalie Gerber : 1960 Date of Service: 03/09/2019 Discharge Recommendations: Continue to assess pending progress, Subacute/Residential Facility Assessment Body structures, Functions, Activity limitations: [...] (coronary artery disease), CHF (congestive heart failure) ([facility]), Depression, Diverticulitis, Diverticulosis, GERD (gastroesophageal reflux disease), History of pulmonary embolus (PE), Hyperlipidemia, Hypertension, WI, old, Myocardial infarct ([facility]), myocardial infarction, LISA on CPAP, Pain, Pneumonia, Suicide ([facility]), Thyroid disease, and Unspecified cerebral [...] Gardening: Total Driving: Total Shopping: Other (comment) Oral Health Therapist: Other (comment) Homemaking Responsibilities: No Ambulation Assistance: Needs assistance Transfer Assistance: Needs assistance Active Staff Nurse: No Patient's Staff Nurse Info: INSURANCE OR FAMILY Education: NA Occupation: On disability Type of occupation: NA Leisure & Hobbies: NA IADL Comments: NEEDS ASSIST WITH ADLS- IADLS- Additional Comments: is ECF but at [facility]- currently as patient - [facility]- he has CM rajiv Cognition Objective AROM RLE (degrees) RLE AROM: [...] AM-PAC Inpatient Mobility Raw Score : 15 (03/09/19 1409) AM-PAC Inpatient T-Scale Score : 39.45 (10/08/19 1409) Mobility Inpatient CMS 0-100% Score: 57.7 (03/09/191408) Mobility Inpatient CMS G-Code Modifier : CK (03/09/191408) Goals Short term goals Time Frame for Short term goals: 2 weeks Short term goal 1: Independently perform all bed mobility. Short term goal 2: Independently perform all transfers. Short term goal 3: Independently ambulate 30' with least restrictive device. Short term goal 4: Negotiate 5 steps with supervision. Short term goal 5: Independently pickling drum operator object from ground while standing. Patient Goals Patient goals : To go home. Therapy Time Individual Concurrent Group Co-treatment Time In 1357 Time Out 1409 Minutes 12 Patient s Physical Therapy Plan of Care supervision is transferred to [facility] Rehab Department Physical Therapist. Goals and/or treatment plan was established in collaboration with patient/family/other representatives. Jyotsna Copeland, SPT documented in this encounter* Laura Curry DTR - 05/08/2019 11:30 AM EST Nutrition rescreen completed. Chart reviewed. Patient NPO for a procedure. Patient to be monitored and followed by the [facility] pharmacy technician. * Elida Zuluaga MD - 05/08/2019 [...] mg, 5 mg, Intravenous, Q5 Min PRN, Elida Zuluaga MD aminophylline injection 50 mg, 50 mg, Intravenous, PRN, Elida Zuluaga MD acetaminophen (TYLENOL) tablet 650 mg, 650 mg, Oral, Q4H PRN, Elida Zuluaga MD aspirin chewable tablet 81 mg, 81 mg, Oral, Daily, Elida Zuluaga MD, 81 mg at 05/08/19 0910 atorvastatin (LIPITOR) tablet 20 mg, 20 mg, Oral, Daily, Elida Zuluaga MD, 20 mg at 05/08/19 09 citalopram (CELEXA) tablet 20 mg, 20 mg, Oral, Daily, Elida Zuluaga MD, 20 mg at 05/08/19 09 clopidogrel (PLAVIX) tablet 75 mg, 75 mg, Oral, Daily, Elida Zuluaga MD, 75 mg at 05/08/19 0909 furosemide (LASIX) tablet 20 mg, 20 mg, Oral, Daily, Elida Zuluaga MD, 20 mg at 05/08/19 0909 levothyroxine (SYNTHROID) tablet 25 mcg, 25 mcg, Oral, Daily, Elida Zuluaga MD, 25 mcg at 05/08/19 0614 lisinopril (PRINIVIL;ZESTRIL) tablet 2.5 mg, 2.5 mg, Oral, Daily, Elida Zuluaga MD, 2.5 mg at 05/08/19 0909 nitroGLYCERIN (NITROSTAT) SL tablet 0.4 mg, 0.4 [...] Elida Zuluaga MD, 20 mg at 05/08/19 0909 carvedilol (COREG) tablet 6.25 mg, 6.25 mg, Oral, BID , Elida Zuluaga MD, 6.25 mg at 05/08/19 0909 ondansetron (ZOFRAN) tablet 4 mg, 4 mg, Oral, Q8H PRN, Elida Zuluaga MD, 4 mg at 05/07/19 180 [COMPLETED] Saline lock IV, , , Continuous AND sodium chloride flush 0.9 % injection 3 mL, 3 mL, Intravenous, Q8H, Asha Singh DO, 3 mL at 05/07/192121 nitroglycerin (NITRO-BID) 2 % ointment 0.5 inch, 0.5 inch, Topical, 4 times per day, Asha Singh DO, 0.5 inch at 05/08/19 0614 LABS: Recent Labs 05/07/19 0705/08/19620 WBC 12.2* 10.0 HGB 10.6* 10.5* PLT 240 234 Recent Labs 05/06/19203905/08/19620 NA 141 138 K 4.3 4.0 CL [...] 118/51 Pulse: 83 79 85 77 Resp: Temp: 97 F (36.1 C) 97.1 F [...] as outpatient Discharge planning: home today ELIDA ZULUAGA MD 05/08/2019 * Stephanie Gayle RN - 05/08/2019 9:40 AM EST Noted pt's transport to department cancelled. [facility] called. Per RN patient is refusing NST. * Yandy Marroquin PT - 05/07/2019 11:09 AM EST Physical Therapy Facility/Department: [facility] 5W TELEMETRY Initial Assessment NAME: Natalie Gerber : 1960 Date of Service: 05/07/2019 Discharge Recommendations: Subacute/Residential Facility Assessment Body structures, Functions, Activity limitations: [...] (coronary artery disease), CHF (congestive heart failure) ([facility]), Depression, Diverticulitis, Diverticulosis, GERD (gastroesophageal reflux disease), History of pulmonary embolus (PE), Hyperlipidemia, Hypertension, WI, old, Myocardial infarct ([facility]), myocardial infarction, LISA on CPAP, Pain, Pneumonia, Suicide ([facility]), Thyroid disease, and Unspecified cerebral [...] Pt reports he just got discharged from detention without his pain meds and developed increased [...] Assistance: Needs assistance Transfer Assistance: Independent Active Staff Nurse: No Patient's Staff Nurse Info: Family or insurance provides rides Mode [...] reach(Pt left sitting EOB) G-Code OutComes Score [facility] Score AM-[facility] Inpatient Mobility Raw Score : 18 (05/07/191100) AM-[facility] Inpatient T-Scale Score : 43.63 (05/07/191100) Mobility Inpatient CMS 0-100% Score: 46.58 (05/07/191100) Mobility Inpatient CMS G-Code Modifier : CK (05/07/191100) Goals Short term goals Time Frame for [...] Plan of Care supervision is transferred to [facility] Rehab Department Physical Therapist. Goals and/or [...] EDT Report called to Shy PALACIO at [facility]. Patient to be transferred at 1700. * Raina Ferro RN - 01/31/2020 12:02 PM EDT Attempted to call [facility] to give report. Was placed on hold for an extended period of time. Will attempt again. * Raina Ferro RN - 01/31/2020 11:[address] Boyce patient to be transferred to [facility] today at 1430. He stated to have [...] 01/30/2020 2:21 PM EDT Physical Therapy Facility/Department: [facility] CDU Daily Treatment Note NAME: Natalie Gerber : 1960 Date of Service: 01/30/2020 *N95 mask, goggles, gown and gloves worn by this PT throughout pt encounter* Discharge Recommendations: Subacute/Residential Facility Assessment Body structures, Functions, Activity limitations: [...] History of pulmonary embolus (PE), Hyperlipidemia, Hypertension, WI, old, Myocardial infarct (HCC), myocardial infarction, LISA [...] RN Pain Screening Patient Currently in Pain: Yes(6/10 low back to LLE) Vital Signs Patient Currently in Pain: Yes(6/10 low back to LLE) Cognition Cognition Overall [...] AM-PAC Inpatient Mobility Raw Score : 13 (01/30/20 1420) AM-PAC Inpatient T-Scale Score : 36.74 (01/30/20 1420) Mobility Inpatient CMS 0-100% Score: 64.91 (01/30/201419) Mobility Inpatient [facility] G-Code Modifier : CL (01/30/201419) Goals Short [...] tablet 80 mg, 80 mg, Oral, Nightly, Phoo Ellen Sanderson MD, 80 mg at promethazine (PHENERGAN) injection 25 mg, 25 mg, Intramuscular, Once, Satya Boyce DO oxyCODONE (ROXICODONE) immediate release tablet 5 mg, 5 mg, Oral, Q4H PRN, Satya Boyce DO, 5 mgat 01/30/20 0913 nitroGLYCERIN (NITROSTAT) SL tablet 0.4 mg, 0.4 [...] Hernadez S Bonyo, DO, 40 mg at 01/30/20732 pantoprazole (PROTONIX) tablet 40 mg, 40 mg, Oral, QAM AC, Hernadez S Bonyo, DO, 40 mg at 01/30/20551 methylphenidate (RITALIN) tablet 20 mg, 20 mg, Oral, BID WC, Hernadez S Bonyo, DO, 20 mg at 01/30/20732 promethazine (PHENERGAN) injection 12.5 mg, 12.5 mg, Intravenous, Q6H PRN, Hernadez S Bonyo, DO, 12.5mg at 01/27/20 2100 [COMPLETED] Saline lock IV, , , Continuous AND sodium chloride flush 0.9 % injection 3 mL, 3 mL, Intravenous, Q8H, Hernadez S Bonyo, DO, 3 mL at 01/30/20 0445 [...] 1960 Date of Service: 01/30/2020 Discharge Recommendations: Subacute/Residential Facility Assessment Performance deficits / Impairments: Decreased [...] (coronary artery disease), CHF (congestive heart failure) ([facility]), Depression, Diverticulitis, Diverticulosis, GERD (gastroesophageal reflux disease), History of pulmonary embolus (PE), Hyperlipidemia, Hypertension, WI, old, Myocardial infarct (HCC), myocardial infarction, LISA on CPAP, Pain, Pneumonia, Suicide ([facility]), Thyroid disease, and Unspecified cerebral [...] Comments: Pt presents after being d/c'd from [facility] one day prior to admit to [facility]. Patient Currently in Pain: Yes(low back and radiates down Left LE (especially when weight bearing) -4/10) Social/Functional History Social/Functional History Lives With: Spouse Type of Home: (Recent d/c from [facility].....states back in May he was staying with [...] assistance(uses rolator) Transfer Assistance: Needs assistance Active Staff Nurse: No Occupation: On disability Additional Comments: Per pt, at SNF he was supervision with ADL's, supervision with transfers and amb with a rollator. Pt states his is a long time resident of [facility] x 9 years. (They don'ttake the pt's [...] Training, Safety Education & Training OutComes Score AM-PAC Daily Activity Inpatient How [...] much help for eating meals?: A Little [facility] Inpatient Daily Activity Raw Score: 18 AM-[facility] Inpatient ADL T-Scale Score : 38.66 ADL Inpatient CMS 0-100% Score: 46.65 ADL Inpatient CMS G-Code Modifier : CK AM-PAC Score AM-[facility] Inpatient Daily Activity Raw Score: 18 (01/30/20 1044) AM-[facility] Inpatient ADL T-Scale Score : 38.66 (01/30/20 1044) ADL Inpatient CMS 0-100% Score: 46.65 (01/30/20 1044) ADL Inpatient CMS G-Code Modifier : CK (01/30/20 1044) Goals Short term goals Time Frame for [...] Plan of Care supervision is transferred to [facility] Occupational Therapist. This provider wore an N95, [...] tablet 80 mg, 80 mg, Oral, Nightly, Danielle Sanderson MD promethazine (PHENERGAN) injection 25 mg, 25 mg, Intramuscular, Once, Satya Boyce DO oxyCODONE (ROXICODONE) immediate release tablet 5 mg, 5 mg, Oral, Q4H PRN, Satya Boyce DO, 5 mgat 01/29/20 0858 nitroGLYCERIN (NITROSTAT) SL tablet 0.4 mg, 0.4 mg, Sublingual, Q5 Min PRN, Satya Boyce DO aspirin chewable tablet 81 mg, 81 mg, Oral, Daily, Satya Boyce DO, 81 mg at 01/29/20901 clopidogrel (PLAVIX) [...] Hernadez S Bonyo, DO, 40 mg at 01/29/20904 methylphenidate (RITALIN) tablet 20 mg, 20 mg, Oral, BID WC, Hernadez S Bonyo, DO, 20 mg at 01/29/20902 promethazine (PHENERGAN) injection 12.5 mg, 12.5 mg, Intravenous, Q6H PRN, Hernadez S Bonyo, DO, 12.5mg at 01/27/20 2100 [COMPLETED] Saline lock IV, , , Continuous AND sodium chloride flush 0.9 % injection 3 mL, 3 mL, Intravenous, Q8H, Satya Boyce, DO, 3 mL at 01/29/20 0914 LABS: Recent Labs 01/26/20 2101 01/28/20 0855 WBC 10.2 9.7 HGB 11.2* 10.9* PLT 286 243 Recent Labs 01/26/20 2101 01/28/20 0853 NA 138 136 K 3.7 3.8 [...] Pulse: 91 79 79 78 Resp: 18 20 16 18 Temp: 97.3 F (36.3 C) [...] pending ELIDA ZULUAGA MD 01/29/2020 * Raina Ferro, RN - 01/28/2020 1:[address] Sanderson patients Heart cath from [facility] from 10/11/19 is on chart. * Raina Ferro RN - 01/28/2020 12:53 PM EDT Left message for Liza the computer networker that PT is recommending SNF at discharge. [phone] * Radha Nobles, PT - 01/28/2020 12:46 PM EDT Physical Therapy Facility/Department: [facility] CDU Initial Assessment NAME: Natalie Gerber : 1960 Date of Service: 01/28/2020 Discharge Recommendations: Subacute/Residential Facility PT Equipment Recommendations Equipment Needed: No [...] History of pulmonary embolus (PE), Hyperlipidemia, Hypertension, WI, old, Myocardial infarct (HCC), myocardial infarction, LISA [...] assistance(uses rolator) Transfer Assistance: Needs assistance Active Staff Nurse: No Occupation: On disability Additional Comments: Per [...] Score AM-PAC Inpatient Mobility Raw Score : 19 (01/28/201245) AM-PAC Inpatient T-Scale Score : 45.44 (01/28/201245) Mobility Inpatient CMS 0-100% Score: 41.77 (01/28/201245) Mobility Inpatient CMS G-Code Modifier : CK (01/28/201245) Goals Short term goals Time Frame for Short term goals: 2 Short term goal 1: transfers modified independent Short term goal 2: ambulate 150 ft, rollator walker, modified independent Patient Goals Patient goals : To be able to walk. Patient s Physical Therapy Plan of Care supervision is transferred to [facility] Rehab Department Physical Therapist. Plan to be activated only if patient is admitted or for assessing discharge needs. Therapy Time Individual Concurrent Group Co-treatment Time In 08 Time Out 0910 Minutes 23 Timed Code Treatment Minutes: 8 Minutes(FA) Radha Nobles PT,GCS * Raina Ferro, GABO - 01/28/2020 10:48 AM EDT 22g left forearm discontinued at this time, was not flushing. * Raina Ferro RN - 01/28/2020 10:02 AM EDT Faxed release of information to [facility] for cath report at this time. * [...] 25 mg 25 mg Intramuscular Once Satya Boyce, DO oxyCODONE (ROXICODONE) immediate release tablet 5 mg 5 mg Oral Q4H PRN Satya Vasquezo, DO 5 mg at 01/28/20 0315 nitroGLYCERIN (NITROSTAT) SL tablet 0.4 mg 0.4 mg Sublingual Q5 Min PRN Satya Vasquezo, DO aspirin chewable tablet 81 mg 81 [...] S Bonyo, DO 25 mcg at 01/28/20 06 QUEtiapine (SEROQUEL) tablet 100 mg 100 mg Oral Nightly Hernadez S Bonyo, DO 100 mg at 01/27/202050 atorvastatin (LIPITOR) tablet 10 mg 10 mg Oral Daily Hernadez S Bonyo, DO 10 mg at 01/27/20 205 carvedilol (COREG) tablet 25 mg 25 mg [...] Francisco Bonyo, DO 40 mg at 01/27/20 1010 pantoprazole (PROTONIX) tablet 40 mg 40 mg Oral QAM AC Hernadez S Bonyo, DO 40 mg at 01/28/20626 methylphenidate (RITALIN) tablet 20 mg 20 mg Oral BID WC Satya Francisco Bonyo, DO 20 mg at 01/27/201850 promethazine (PHENERGAN) injection 12.5 mg 12.5 mg Intravenous Q6H PRN Satya Francisco Bonyo, DO 12.5 mg at 01/27/20 2100 sodium chloride flush 0.9 % injection 3 mL 3 mL Intravenous Q8H Satya Vasquezo, DO 3 mL at 01/28/200445 LABS: CBC [...] Patient would like to go to a detention in [place]. Discharge planning: Pending/in progress SATYA BOYCE DO * Raina Ferro RN - 01/28/2020 7:52 AM EDT Cardiology consult sent at this time via perfect serve. * Raina Ferro RN - 01/28/2020 7:48 [...] new complaints. He is awaiting discharge to [facility] DIET [facility]; No intake or output data [...] 75 mg, 75 mg, Oral, Daily, Satya Vasquezo, DO, 75 mg at 03/25/19 0940 nitroGLYCERIN (NITROSTAT) SL tablet 0.4 mg, 0.4 mg, Sublingual, Q5 Min PRN, Satya S Bonyo, DO aspirin chewable tablet 81 mg, 81 mg, Oral, Daily, Hernadez S Pedroo, DO, 81 mg at 03/25/19 0941 carvedilol (COREG) tablet 6.25 mg, 6.25 mg, Oral, BID, Satya S Bonyo, DO, 6.25 mg at 03/25/192004 [...] mg, 650 mg, Oral, Q4H PRN, Satya S Pedroo, DO enoxaparin (LOVENOX) injection 40 mg, 40 mg, Subcutaneous, Daily, Satya Boyce DO, 40 mg at 03/20/19 1356 QUEtiapine (SEROQUEL) tablet 100 mg, 100 mg, Oral, Nightly, Satya Boyce DO, 100 mg at 03/25/192004 LABS: No [...] Hernadez S Bonyo, DO, 75 mg at 03/24/19 1016 nitroGLYCERIN (NITROSTAT) SL tablet 0.4 mg, 0.4 mg, Sublingual, Q5 Min PRN, Hernadez S Bonyo, DO aspirin chewable tablet 81 mg, 81 mg, Oral, Daily, Hernadez S Bonyo, DO, 81 mg at 03/24/19 1016 carvedilol (COREG) tablet 6.25 mg, 6.25 mg, Oral, BID, Hernadez S Bonyo, DO, 6.25 mg at 03/24/191950 furosemide (LASIX) tablet 20 mg, 20 mg, Oral, Daily, Hernadez S Bonyo, DO, 20 mg at 03/24/19 1017 citalopram (CELEXA) tablet 20 mg, 20 mg, Oral, Daily, Hernadez S Bonyo, DO, 20 mg at 03/24/19 1017 atorvastatin (LIPITOR) tablet 20 mg, 20 mg, Oral, Daily, Hernadez S Bonyo, DO, 20 mg at 03/24/191950 levothyroxine (SYNTHROID) [...] 5 mg, 5 mg, Oral, Q6H PRN, Satya S Bonyo, DO, 5 mgat 03/25/19 0655 [...] (!) 142/77 Pulse: 77 80 73 Resp: Temp: 96.5 F (35.8 C) 97 F [...] hospital problems. * Plan: Discharge planning: home CHIMEZIE AMANAMBU, MD 03/25/2019 * Jessica Ramey, PT - 03/24/2019 11:20 AM EDT Physical Therapy Facility/Department: [facility] MED SURG Daily Treatment Note NAME: Natalie [...] of 19 steps. His resides in a detention. 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 He had back [...] 6:43 AM Subjective: Admit Date: 03/20/2019 PCP: STAYA BOYCE DO [facility] Directive: PriorInterval History: No [...] Daily, Satya Boyce DO, 81 mg at 03/23/19 0835 carvedilol (COREG) tablet 6.25 mg, 6.25 mg, Oral, BID, Satya Boyce DO, 6.25 mg at 03/23/192055 furosemide (LASIX) [...] Hernadez S Bonyo, DO, 2.5 mg at 03/23/1937 pantoprazole (PROTONIX) tablet 40 mg, 40 mg, Oral, QAM AC, Hernadez S Bonyo, DO, 40 mg at 03/23/19626 oxyCODONE (ROXICODONE) immediate release tablet 5 mg, [...] Hernadez S Bonyo, DO, 100 mg at 03/23/192055 LABS: Recent Labs 03/22/19 0603 WBC 7.0 HGB 10.7* PLT 241 Recent Labs 03/22/19 0603 NA 139 K 3.9 CL 107 CO2 26 BUN 8 CREATININE 0.66 GLUCOSE 115* No results for input(s): INR in the last 72 hours. Invalid input(s): PT No results for input(s): TROPONINI in the last 72 hours. Objective: Vitals: Vitals: 03/22/19195703/23/19 0809 03/23/19 1825 03/23/191920 BP: 134/70 (!) 147/67 (!) 152/76 124/81 [...] 1960 Date of Service: 03/23/2019 Discharge Recommendations: Subacute/Residential Facility Assessment Performance deficits / Impairments: Decreased [...] (coronary artery disease), CHF (congestive heart failure) ([facility]), Depression, Diverticulitis, Diverticulosis, GERD (gastroesophageal reflux disease), History of pulmonary embolus (PE), Hyperlipidemia, Hypertension, [place], old, Myocardial infarct ([facility]), myocardial infarction, LISA on CPAP, Pain, Pneumonia, Suicide ([facility]), Thyroid disease, and Unspecified cerebral [...] Ambulation Assistance: Independent Transfer Assistance: Independent Active Staff Nurse: No Mode of Transportation: Bus Occupation: Unemployed [...] Functional Mobility Training, Safety Education & Training AM-PAC Score AM-PAC Inpatient Daily Activity Raw Score: 21 (03/23/191127) AM-PAC Inpatient ADL T-Scale Score : 44.27 (03/23/191127) ADL Inpatient CMS 0-100% Score: 32.79 (03/23/191127) ADL Inpatient CMS G-Code Modifier : CJ (03/23/191127) Goals Short [...] Plan of Care supervision is transferred to [facility] Occupational Therapist. Goals and/or treatment plan was established in collaboration with patient/family/other representatives. Celine Johnston, OTR/L * Chau Trejo RN - 03/23/2019 6:28 AM EDT Pt. Refused blood draw this morning and claimed it was just going to show the same things it alwaysdone. Dr. Boyce notified. Will continue to monitor. * Sunny Mathur MD - 2019 7:21 PM EDT [...] signing off Call or reconsult if needed. Sunny Mathur PGY4 * Laura Curry DTR - 2019 10:00 AM EDT Nutrition rescreen completed. Chart reviewed. Patient to be monitored and followed [facility]. * Juan Jose Arizmendi MD - [...] Hernadez S Bonyo, DO 81 mg at 03/21/19 09 clopidogrel (PLAVIX) tablet 75 mg 75 mg Oral BID Hernadez S Bonyo, DO 75 mg at 03/21/191955 carvedilol (COREG) tablet 6.25 mg 6.25 mg Oral BID Hernadez S Bonyo, DO 6.25 mg at 03/21/191954 furosemide (LASIX) tablet 20 mg 20 mg Oral Daily Hernadez S Bonyo, DO 20 mg at 03/21/19906 citalopram (CELEXA) tablet 20 mg 20 mg Oral Daily Hernadez S Bonyo, DO 20 mg at 03/21/19906 atorvastatin (LIPITOR) tablet 20 mg 20 mg Oral Daily Hernadez S Bonyo, DO 20 mg at 03/21/191954 levothyroxine [...] mg 5 mg Oral Q6H PRN Satya Francisco Bonyo, DO 5 mg at 03/22/19 0636 acetaminophen (TYLENOL) tablet 650 mg 650 mg Oral Q4H PRN Satya Francisco Bonyo, DO enoxaparin (LOVENOX) injection 40 mg 40 mg Subcutaneous Daily Satya Francisco Bonyo, DO 40 mg at 03/20/19 1356 methylphenidate (RITALIN) tablet 20 mg 20 mg Oral BID WC Satya Francisco Bonyo, DO 20 mg at 03/21/19 1707 QUEtiapine (SEROQUEL) tablet 100 mg 100 mg Oral Nightly Satya Francisco Bonyo, DO 100 mg at 03/21/19 1956 LABS: CBC with Differential: Lab Results Component [...] RECOMMENDATIONS Discharge planning: SATYA BOYCE DO * Case, Lisa Larson, PT - 03/21/2019 2:32 PM EDT Physical Therapy Facility/Department: [facility] Initial Assessment NAME: Natalie Gerber [...] (coronary artery disease), CHF (congestive heart failure) ([facility]), Depression, Diverticulitis, Diverticulosis, GERD (gastroesophageal reflux disease), History of pulmonary embolus (PE), Hyperlipidemia, Hypertension, [place], old, Myocardial infarct (HCC), myocardial infarction, LISA [...] Plan of Care supervision is transferred to [facility] Department Physical Therapist. Plan to [...] 0.4 mg Sublingual Q5 Min PRN Satya S Pedroo, DO aspirin chewable tablet 81 mg 81 mg Oral Daily Hernadez S Pedroo, DO 81 mg at 03/21/19 09 clopidogrel (PLAVIX) tablet 75 mg 75 mg Oral BID Hernadez S Pedroo, DO 75 mg at 03/21/19 0907 carvedilol (COREG) tablet 6.25 mg 6.25 mg Oral BID Hernadez S Pedroo, DO 6.25 mg at 03/21/19 09 furosemide (LASIX) tablet 20 mg 20 mg Oral Daily Hernadez S Bonyo, DO 20 mg at 03/21/19 09 citalopram (CELEXA) tablet 20 mg 20 mg Oral Daily Hernadez S Pedroo, DO 20 mg at 03/21/19 09 atorvastatin (LIPITOR) tablet 20 mg 20 mg Oral Daily Hernadez S Bonyo, DO 20 mg at 03/20/192005 levothyroxine (SYNTHROID) tablet 25 mcg 25 mcg Oral Daily Hernadez S Pedroo, DO 25 mcg at 03/21/19 0538 lisinopril (PRINIVIL;ZESTRIL) tablet 2.5 mg 2.5 mg Oral Daily Satya Francisco Bonyo, DO 2.5 mg at 907 pantoprazole (PROTONIX) tablet 40 mg 40 mg Oral QAM AC Satya Francisco Bonyo, DO 40 mg at 03/21/19 0538 oxyCODONE (ROXICODONE) immediate release tablet 5 mg 5 mg Oral Q6H PRN Satya Francisco Bonyo, DO 5 mg at 03/21/19 1135 acetaminophen (TYLENOL) tablet 650 mg 650 mg Oral Q4H PRN Satya Francisco Bonyo, DO enoxaparin (LOVENOX) injection 40 mg 40 mg Subcutaneous Daily Satya Francisco Bonyo, DO 40 mg at 03/20/19 1356 methylphenidate (RITALIN) tablet 20 mg 20 mg Oral BID WC Satya Francisco Bonyo, DO 20 mg at 03/21/19 0906 QUEtiapine (SEROQUEL) tablet 100 mg 100 mg Oral Nightly Satya Vasquezo, DO 100 mg at 03/20/19 2727 LABS: CBC with Differential: Lab Results Component [...] for Visit Chief Complaint LABWORK Chief Complaint LONGTERM LAB WOR K Chief Complaint Admit Date LONGTERM LAB WORK July 07, 2024 5:00am LONGTERM LAB WORK July 14 4:00am LONGTERM LAB WORK August 27, 2024 5 :00am Chief Complaint Admit Date LONGTERM LAB WORK July 07, 2024 5:00am LONGTERM LAB WORK July 14 4:00am LONGTERM LAB WORK August 27, 2024 5 :00am LONGTERM LAB WORK October 04, 2024 4:00 am [...] section and content) DATE CREATED AUTHOR 04/02/2018 [facility] DATE CREATED AUTHOR AUTHOR'S ORGANIZ ATION 05/24/2018 [facility] DATE CREATED AUTHOR AUTHOR'S ORGANIZ ATION 06/11/2018 [facility] DATE CREATED AUTHOR AUTHOR'S ORGANIZ ATION 06/12/2018 [facility] DATE CREATED AUTHOR AUTHOR'S ORGANIZ ATION 12/25/2018 [facility] DATE CREATED AUTHOR AUTHOR'S ORGANIZ ATION 03/31/2019 [facility] DATE CREATED AUTHOR AUTHOR'S ORGANIZ ATION 05/07/2019 [facility] DATE CREATED AUTHOR AUTHOR'S ORGANIZ ATION 05/11/2019 [facility] DATE CREATED AUTHOR AUTHOR'S ORGANIZ ATION 08/14/2019 [facility] ([place]) DATE CREATED AUTHOR AUTHOR'S ORGANIZ ATION 10/18/2019 [facility] DATE CREATED AUTHOR AUTHOR'S ORGANIZ ATION 12/24/[address] [facility] DATE CREATED AUTHOR AUTHOR'S ORGANIZ ATION 01/28/2020 [facility] DATE CREATED AUTHOR AUTHOR'S ORGANIZ ATION 03/18/2020 [facility] DATE CREATED AUTHOR AUTHOR'S ORGANIZ ATION 06/25/2020 [facility] DATE CREATED AUTHOR AUTHOR'S ORGANIZ ATION 01/21/2023 [facility] DATE CREATED AUTHOR AUTHOR'S ORGANIZ ATION 01/06/2024 [facility] DATE CREATED AUTHOR AUTHOR'S ORGANIZ ATION 05/22/2024 [facility] [facility] DATE CREATED AUTHOR AUTHOR'S ORGANIZ ATION 12/29/2024 [facility] Reason for Visit (unrecogniz ed section and content) Reason Comments Shortness of Breath patient complains of having SOB while at [facility] today. patinet states that he is normally SOB on exertion but today it was worse. patient took nitro at [facility] but it did not work. patient has hx of CHF and HTN. Reason Comments Back Pain Leg Pain Reason Comments Chest Pain L sided pressure sta rting this afternoon, hx WI. denies SOB/ took three nitro at home which helped briefly but pain is back. Reason Comments Chest Pain pt s/o heavy midster nal CP since yesterday. seen at [facility]. pain was worse today so he [...] h ome pain meds not working. states 05/11 pain Reason Comments Back Pain Pt presents to ED vi a EMS C/O pain d/t sciatic[facility]. [facility], pt [...] or prosecute any alcohol or drug abuse patient.[facility] Hospital[facility] the event this information is protected by the Federal Confidentiality of Alcohol and Drug Abuse Patient Records regulations: The Federal rules restrict any use of the information to criminally investigate or prosecute any alcohol or drug abuse patient.[facility] Hospital[facility] the event this information is protected by the Federal Confidentiality of Alcohol and Drug Abuse Patient Records regulations: The Federal rules restrict any use of the information to criminally investigate or prosecute any alcohol or drug abuse patient.[facility] the event this information is protected by the Federal Confidentiality of Alcohol and Drug Abuse Patient Records regulations: The Federal rules restrict any use of the information to criminally investigate or prosecute any alcohol or drug abuse patient.[facility] Hospital[facility] the event this information is protected by the Federal Confidentiality of Alcohol and Drug Abuse Patient Records regulations: The Federal rules restrict any use of the information to criminally investigate or prosecute any alcohol or drug abuse patient.[facility] Hospital[facility] the event this information is protected by the Federal Confidentiality of Alcohol and Drug Abuse Patient Records regulations: The Federal rules restrict any use of the information to criminally investigate or prosecute any alcohol or drug abuse patient.[facility] Hospital[facility] the event this information is protected by the Federal Confidentiality of Alcohol and Drug Abuse Patient Records regulations: The Federal rules restrict any use of the information to criminally investigate or prosecute any alcohol or drug abuse patient.[facility] HospitalIn the event this information is protected by the Federal Confidentiality of Alcohol and Drug Abuse Patient Records regulations: The Federal rules restrict any use of the information to criminally investigate or prosecute any alcohol or drug abuse patient.[facility] HospitalIn the event this information is protected by the Federal Confidentiality of Alcohol and Drug Abuse Patient Records regulations: The Federal rules restrict any use of the information to criminally investigate or prosecute any alcohol or drug abuse patient.[facility] HospitalIn the event this information is protected by the Federal Confidentiality of Alcohol and Drug Abuse Patient Records regulations: The Federal rules restrict any use of the information to criminally investigate or prosecute any alcohol or drug abuse patient.[facility] HospitalIn the event this information is protected by the Federal Confidentiality of Alcohol and Drug Abuse Patient Records regulations: The Federal rules restrict any use of the information to criminally investigate or prosecute any alcohol or drug abuse patient.[facility] Care Teams (unrecognized sec tion and [...] August 27, 2024 End: August 27, 2024 Turntable Man Relationship Specialty Start Date End Date Satya Boyce DO [address] [place] [phone] PCP - General Family Practice 04/22/18 Turntable Man Relationship Specialty Start Date End Date Satya Boyce DO [address] [place] [phone] PCP - General Family Medicine 04/22/18 Turntable Man Relationship Specialty Start Date End Date Satya Boyce DO [address] [place] [phone] PCP - General Family Medicine 04/22/18 Turntable Man Relationship Specialty Start Date End Date Satya Boyce DO [address] [place] [phone] PCP - General Family Medicine 04/22/18 Turntable Man Relationship Specialty Start Date End Date Satya Boyce DO [address] [place] [phone] PCP - General Family Medicine 04/22/18 Turntable Man Relationship Specialty Start Date End Date Satya Boyce [address] [facility] [address] [place] [phone] PCP - [facility] 04/22/18 Team Status: Inactive Member Role Status Dates Dr. Satya Boyce DO Primary Care Provider Active Chuy العلي Attending Provider Active Turntable Man Relationship Specialty Start Date End Date Satya Boyce DO [address] [facility] [address] [place] [phone] PCP - [facility] 04/22/18 Turntable Man Relationship Specialty Start Date End Date Satya Boyce DO [address] [place] [address] PCP - General 04/18/18 Team Status: Inactive [...] BE BASED ON THE PRIMARY CLINICAL RECORDS. [facility]. provides no warranty or guarantee of the accuracy or completeness of information in this document.
== END ==
LOC: OLS.ACW200 05:00
PROVIDERS: PCP Family Medicine; Visit Provider Family Medicine
DX: E11.9 Type 2 diabetes mellitus without complications (principal); R27.9 Unspecified lack of coordination; E78.00 Pure hypercholesterolemia, unspecified; I67.2 Cerebral atherosclerosis; E03.9 Hypothyroidism, unspecified; E66.01 Morbid (severe) obesity due to excess calories
CPT/HCPCS: 36415; 83036

== ENCOUNTER → 2025-04-06 | Outpatient (REF) | payer MEDICAID, SELFPAY ==
--- OUTSIDE RECORDS SUMMARY | 2025-04-06 04:31 | XMS RPT_ITS | CCD ---
Author Organization [facility] Care Team Providers Care B2B Outside Sales Representative Name Role Phone Stecyk, Orest Unavailable Unavailable Stecyk, Orest Unavailable Unavailable Medina, Neelesh Unavailable Unavailable Do Hernandez Unavailable Unavailable Juicehun, Zuhayr Unavailable Unavailable Ramirez Trotter Unavailable Unavailable BONYO, HERNADEZ S Unavailable Unavailable ODEBODE, MOJIBADE Unavailable Unavailable ODEBODE, MOJIBADE Unavailable Unavailable TOPARLI, CHARMAINE Unavailable Unavailable BOZORGI, ELENA Unavailable Unavailable HICKEY, RAFY O Unavailable Unavailable SUJEY, KHALEEL Unavailable Unavailable SUJEY, KHALEEL Unavailable Unavailable FLORENCIO HERNANDEZ Unavailable Unavailable GODALE, LISA Unavailable Unavailable BONYO, HERNADEZ S Unavailable Unavailable Bonyo, Hernadez S Primary Care Provider BONYO, HERNADEZ S Primary Care Unavailable ESTRELLA HERNANDEZ Admitting Unavailable ESTRELLA HERNANDEZ Attending Unavailable Bonyo, Hernadez S Primary Care Provider KAR STRICKLAND Attending Unavailable PROVIDER, UNKNOWN Admitting Unavailable ALBERTO MARQUIS Primary Care Unavailable Carli DOSatya Primary Care Provider [phone] Satya Boyce DO Primary Care Provider Bonyo, Hernadez S Unavailable Bonyo DO, Hernadez Toribio Primary Care Provider Bonyo DO, Hernadez Toribio Primary Care Provider BONYO, HERNADEZ TORIBIO Primary Care Unavailable BONYO, HERNADEZ TORIBIO Primary Care Unavailable Bonyo DO, Hernadez Toribio Primary Care Provider Bonyo DO, Hernadez S Primary Care Provider Bonyo DO, Dr. Hernadez Primary Care Provider [phone] Chuy Mariee Attending Provider Unavailabl e Chuy Mariee Referring Provider Unavailabl e Bonyo, Hernadez Primary Care Unavailable Chuy Mariee Attending Unavailable Chuy Mariee Referring Unavailable Chuy Mariee Attending Unavailable Bonyo, Hernadez Primary Care Unavailable Chuy Mariee Attending Unavailable Bonyo, Hernadez Primary Care Unavailable Chuy Mariee Referring Unavailable Bonyo, Hernadez [...] Primary Care Unavailable Chuy Mariee Attending Unavailable Allergies Allergy Classification Reported Allergen(s) Allergy Type Date of Onset Reaction(s) Facility (2 sources) ketorolac Drug Allergy 7 [facility] Repository (1 source) nalbuphine Drug Allergy 7 [facility] Repository (3 sources) nalbuphine; Translations: [NALBUPHINE] Drug Allergy 6 [facility] Repository (13 sources) Fish derivative; Translations: [FISH DERIVED] Propensity to adverse reactions to drug (disorder) 7 [facility] Repository (20 sources) Ketorolac; Translations: [KETOROLAC TROMETHAMINE] Drug Allergy 0 Hives [facility] Repository (20 sources) Nalbuphine; Translations: [NALBUPHINE HCL] Drug Allergy 6 Other: See Comments [facility] Repository (8 sources) Fish-Derived Products; Translations: [FISH-DERIVED PRODUCTS] Propensity to adverse reactions to drug 6 [place], [place] (1 source) Ketorolac Drug Allergy [facility] Repository (1 source) Nalbuphine Drug Allergy [facility] Repository (4 sources) Ketorolac Drug Allergy 0 Unknown [facility] (4 sources) Nalbuphine Drug Allergy 0 Unknown [facility] Medications Current Medications Medication Drug Class(es) [...] 24 hours. take 2 tablets by mo [facility] every six hours as needed acetaminophen (TYLENOL) [...] Comment on above: Take 1 tablet by [facility] once daily. diphenhydrAMINE hydrochloride 25 mg oral tablet (1 source) Histamine-1 Receptor Antagonist Start: 06-17-19 take 25 mg by mouth every six hours as needed 25 mg, Oral, EVERY 6 HOURS PRN, Itching, Starting Pauline 06/17/19 at 2318 docusate sodium 50 mg / sennosides, longterm 8.6 mg oral tablet (11 sources) Start: 12-17-19 20 take 1 tablet by mouth twice daily senna-docusate (SENNA-S) 8.6-50 mg per tablet Take 1 tablet by mouth twice daily. 0 12/17/2019 Active Comment on above: Take 1 tablet by [facility] twice daily. 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) use of antithrombotics/antipl atelets; Translations: [FDC ANTITHROMBOT/ANTIPLATL ETS] Onset: 05-11-2019 Episodic Other aftercare (1 source) continuous churn buttermaker (current) use of aspirin; Translations: [FIELD CARE MANAGER CURRENT USE OF ASPIRIN] Onset: 05-11-2019 Episodic Other aftercare (1 source) Other extermination inspector (current) drug therapy; Translations: [OTH FIELD CARE MANAGER CURRENT DRUG THERAPY] Onset: 05-11-2019 Episodic Other [...] 11-01-2024 Anion gap [Moles/Vol] 13 mmol/L 5-15 [facility] BUN/creatinine ratioOrdered By: Chuy Galeano on 11-01-2024 Urea nitrogen/Creatinine [Mass ratio] 17.1 mg/mg 10- [facility] Calculated very low density lipoprotein (VLDL) cholesterol measurementOrdered By: Chuy Galeano on 11-01-2024 Calculated very low density lipoprotein (VLDL) cholesterol measurement 31 mg/dL -40 [facility] Carbon dioxide, total [Moles /volume] in Central venous bloodOrdered By: Chuy Galeano on 11-01-2024 CO2 [Moles/Vol] 22.7 mmol/L 21.0-32.0 [facility] Chloride assayOrdered By: Pavan Galeano on 11-01-2024 Chloride [Moles/Vol] 104 mmol/L 98-108 [facility] Erythrocyte distribution wid th ratioOrdered By: Chuy Galeano on 11-01-2024 Erythrocyte distribution width (RBC) [Ratio] 13.3 % 11.6-14.6 [facility] Erythrocyte distribution wid th standard deviationOrdered By: Chuy Galeano on 11-01-2024 Erythrocyte distribution width (RBC) [Ratio] 46.6 fl High 35.1-43.9 [facility] Glomerular filtration rate ( GFR) estimation/1.73 sq m using serum, plasma, or whole bOrdered By: Chuy Galeano on 11-01-2024 GFR/1.73 sq M.predicted among non-blacks MDRD (S/P/Bld) [Vol rate/Area] 99 mL/min/{1.73_m2} >60 [facility] Comment on above: mL/min/1.73m2 CKD-EP I Creatinine Equation (2020) Hematocrit Auto (Bld) [Volum e fraction]Ordered By: Chuy Galeano on 11-01-2024 Hematocrit (Bld) [Volume fraction] 37.1 % Low 40-54 [facility] Hemoglobin A1c percentageOrd ered By: Chuy Galeano on 11-01-2024 HbA1c (Bld) [Mass fraction] 5.8 % High <5.7 [facility] Comment on above: Normal < 5.7 % Predi abetic 5.7 - 6.4 % Diabetic >or= 6.5 % Please note range changes. Hemoglobin measurementOrdere d By: Chuy Galeano on 11-01-2024 Hemoglobin (Bld) [Mass/Vol] 11.2 g/dL Low 13.0-16.5 [facility] LDL calc ser/plasOrdered By: Chuy Galeano on 11-01-2024 Cholesterol in LDL [Mass/Vol] 65 mg/dL [facility] Comment on above: Fvsgujrnnx=651-531 m g/dL & Higher Lhis=607 mg/dL or greater MCV (mean corpuscular volume ) determinationOrdered By: Chuy Galeano on 11-01-2024 MCV (RBC) [Entitic vol] 95.1 fL High 80-94 [facility] Mean corpuscular hemoglobin (MCH) determinationOrdered By: Chuy Galeano on 11-01-2024 MCH (RBC) [Entitic mass] 28.7 pg 27.0-32.0 [facility] Mean corpuscular hemoglobin concentration (MCHC) determinationOrdered By: Chuy Galeano on 11-01-2024 MCHC (RBC) [Mass/Vol] 30.2 g/dL Low 32-36 [facility] Mean platelet volume determi nationOrdered By: Chuy Galeano on 11-01-2024 Platelet mean volume (Bld) [Entitic vol] 9.9 fL 6.2-12.0 [facility] Platelet countOrdered By: Pavan Galeano on 11-01-2024 Platelets (Bld) [#/Vol] 250 10*3/uL 150-450 [facility] Potassium measurement (mass/ volume)Ordered By: Chuy Galeano on 11-01-2024 Potassium (Unsp spec) [Mass/Vol] 4.3 mmol/L 3.3-5.1 [facility] RBC Auto (Bld) [#/Vol]Ordere d By: Chuy Galeano on 11-01-2024 RBC (Bld) [#/Vol] 3.90 10*6/uL Low 4.6-6.2 [facility] Screening total cholesterol/ high density lipoprotein (HDL) cholesterol ratioOrdered By: Chuy Galeano on 11-01-2024 Cholesterol.total/Cho lesterol in HDL [Mass ratio] 3.71 {ratio} [facility] Serum creatinine measurement (mass/volume)Ordered By: Chuy Galeano on 11-01-2024 Creatinine [Mass/Vol] 0.82 mg/dL 0.70-1.20 [facility] Serum glucose measurement (m ass/volume)Ordered By: Chuy Galeano on 11-01-2024 Glucose [Mass/Vol] 99 mg/dL 70-99 [facility] Serum or plasma calcium douglas urement (mass/volume)Ordered By: Chuy Galeano on 11-01-2024 Calcium [Mass/Vol] 9.4 mg/dL 7.6-11.0 [facility] Serum or plasma cholesterol in HDL measurement (mass/volume)Ordered By: Chuy Galeano on 11-01-2024 Cholesterol in HDL [Mass/Vol] 36 mg/dL Low >40 [facility] Comment on above: National Cholesterol Education Program (NCEP) guidelines:<40 mg/dL: Low HDL-cholesterol (major risk factor for CHD)>= 60 mg/dL: High HDL-cholesterol (negative risk factor for CHD)HDL-cholesterol is affected by a number of factors, e.g. smoking, exercise, hormones, sex and age. Serum or plasma cholesterol measurement (mass/volume)Ordered By: Chuy Galeano on 11-01-2024 Cholesterol [Mass/Vol] 132 mg/dL <201 [facility] Comment on above: Cholesterol level, D esirable <200 mg/dLBorderline high cholesterol 200-239 mg/dLHigh cholesterol >=240 mg/dLRecommendations of the NCEP Adult Treatment Panel for the following risk-cutoff thresholds for the [place] population. Serum or plasma triiodothyro nine (T3) measurement (mass/volume)Ordered By: Chuy Galeano on 11-01-2024 T3 [Mass/Vol] 0.81 ng/mL 0.80-2.00 [facility] Serum or plasma urea nitroge n measurement (mass/volume)Ordered By: Chuy Galeano on 11-01-2024 Urea nitrogen [Mass/Vol] 14 mg/dL 4-19 [facility] Sodium levelOrdered By: Taras Galaeno on 11-01-2024 Sodium [Moles/Vol] 140 mmol/L 133-145 [facility] TSH DL <= 0.005 mIU/L QnOrde red By: Chuy Galeano on 11-01-2024 TSH Qn 2.430 uIU/mL 0.300-4.20 0 [facility] ThyroxineOrdered By: Chuy Galeano on 11-01-2024 T4 [Mass/Vol] 7.0 ug/dL 4.5-12.1 [facility] Triglycerides measurementOrd ered By: Chuy Galeano on 11-01-2024 Triglyceride [Mass/Vol] 156 mg/dL <199 [facility] Comment on above: The drugs N-Acetylcy steine and Metamizole may falsely depress this assay. Normal range: <150 mg/dLBorderline High: 150-199 mg/dLHigh: 200-499 mg/dLVery High: >500 mg/dL White blood cell (WBC) count Ordered By: Chuy Galeano on 11-01-2024 WBC (Bld) [#/Vol] 9.1 10*3/uL 4.4-11.0 [facility] Hemoglobin A1c percentageOrd ered By: Chuy Galeano on 10-04-2024 HbA1c (Bld) [Mass fraction] 5.7 % <5.7 [facility] Comment on above: Normal < 5.7 % Predi abetic 5.7 - 6.4 % Diabetic >or= 6.5 % Please note range changes. Vitamin D, 25-hydroxyOrdered By: Chuy Galeano on 08-27-2024 Vitamin D 25-Hydroxy 10.8 ng/mL Low 30-100 [facility] Comment on above: Vitamin D StatusDefi ciency: <20 ng/mL (50nmol/L)Insufficiency: 20-30 ng/mL (50-75 nmol/L)Sufficiency: 30-100 ng/mL (75-250 nmol/L)Toxicity: >100 ng/mL (>250 nmol/L) Hemoglobin A1c percentageOrd ered By: Chuy Galeano on 07-14-2024 HbA1c (Bld) [Mass fraction] 5.6 % 3.8-5.6 [facility] Comment on above: Normal < 5.7 % Predi abetic 5.7 - 6.4 % Diabetic >or= 6.5 % Please note range changes. Hemoglobin A1c percentageOrd ered By: Chuy Galeano on 07-07-2024 HbA1c (Bld) [Mass fraction] 5.3 % 3.8-5.6 [facility] Comment on above: Normal < 5.7 [...] scheduling. Maria Elena can be reached at [phone] at [address] upon confirmation of referral received. Please advise. Were all questions from office addressed or relayed to the patient from encounter: Yes [facility] [id number] 36 Name of caller: Micah trujillo Contact phone number: [phone] Relationship to Patient: Benedicto Ross- 300 Unit Provider: N/A Practice[place] [facility] [facility]: Chief Complaint/Reason for Call: Maria Elena [...] business hours to return their call: No [facility]09[facility]23 CNPN Telephone ([facility]) CLINTNATALIE German ([id number]) 1960 Date Time Provider Department 12/09/23 BIBI STEELE CARPOLLY During your visit today, we recorded the following information about you: Rita Estrada 12/09/2023 8:24 AM Signed Annamaria from [facility] left voicemail stating patient would like to schedule appointment. Please call patient at [phone] to schedule appointment. Loraine Song 12/10/2023 10:44 AM Signed The number listed is ringing in as a fax #. Vivien Ramos 12/26/2023 3:04 PM Signed Anni from [facility] called to schedule patient appt. Please call [phone] to schedule. Jeanine Bowling 12/26/2023 3:18 PM Signed I called [facility] back and they sent me to 300 [...] on 08-28-2023 Bilirubin [Mass/Vol] 0.30 mg/dL 0.20-1.00 [facility] Comment on above: For patients on eltr ombopag therapy, use of Dimension [place] TBIL is not recommended. Chloride [Moles/Vol] 107 mmol/L 98-107 [facility] Cholesterol [Mass/Vol] 102 mg/dL <200 [facility] Comment on above: <200 mg/dL Desirable 200-240 mg/dL Borderline >240 mg/dL High Risk Glucose [Mass/Vol] 104 mg/dL 74-106 [facility] Comment on above: Fasting Glucose resu lt from 100 to 125 mg/dL suggests IMPAIRED HOMEOSTASIS per A.D.A. criteria. Hemoglobin (Bld) [Mass/Vol] 11.9 g/dL 13.0-16.5 [facility] Potassium [Moles/Vol] 4.1 mmol/L 3.5-5.1 [facility] Protein [Mass/Vol] 7.9 g/dL 6.4-8.2 [facility] Sodium [Moles/Vol] 138 mmol/L 136-145 [facility] Triglyceride [Mass/Vol] 122 mg/dL <199 [facility] Comment on above: The drugs N-Acetylcy steine and Metamizole may falsely depress this assay.Serum Triglycerides Reference Interval Normal <150 mg/dL Borderline high 150 - 199 mg/dL High 200 - 499 mg/dL Very High > or = 500 mg/dL WBC (Bld) [#/Vol] 9.3 10*3/uL 4.4-11.0 [facility] Determination of erythrocyte mean corpuscular volume (MCV)Ordered By: Chuy Galeano on 08-28-2023 MCV (RBC) [Entitic vol] 95.9 fL 80-94 [facility] Erythrocyte distribution wid th ratioOrdered By: Chuy Galeano on 08-28-2023 Erythrocyte distribution width (RBC) [Ratio] 13.1 % 11.6-14.6 [facility] Erythrocyte distribution wid th standard deviationOrdered By: Chuy Galeano on 08-28-2023 Erythrocyte distribution width (RBC) [Entitic vol] 46.0 fL 35.1-43.9 [facility] Hematocrit Auto (Bld) [Volum e fraction]Ordered By: Chuy Galeano on 08-28-2023 Hematocrit (Bld) [Volume fraction] 37.5 % 40-54 [facility] Laboratory - Chemistry and C hemistry - challengeOrdered By: Chuy Galeano on 08-28-2023 Albumin/Globulin [Mass ratio] 0.8 {ratio} 0.9-2.4 [facility] ALP [Catalytic activity/Vol] 163 U/L 45-117 [facility] ALT [Catalytic activity/Vol] 10 U/L 16-61 [facility] Cholesterol in HDL [Mass/Vol] 38 mg/dL >40 [facility] Comment on above: The drugs N-Acetylcy steine and Metamizole may falsely depress this assay. Reference Range HDL <40 mg/dL Low HDL Cholesterol HDL >or= 60 mg/dL High HDL Cholesterol Cholesterol in LDL [Mass/Vol] 40 mg/dL 0-130 [facility] CO2 [Moles/Vol] 26.0 mmol/L 21.0-32.0 [facility] Globulin (S) [Mass/Vol] 4.4 g/dL 2.2-4.2 [facility] Magnesium [Mass/Vol] 2.4 mg/dL 1.6-2.6 [facility] Urea nitrogen/Creatinine [Mass ratio] 11.3 mg/mg 10-20 [facility] Laboratory - Hematology and Cell countsOrdered By: Chuy Galeano on 08-28-2023 MCH (RBC) [Entitic mass] 30.4 pg 27.0-32.0 [facility] MCHC (RBC) [Mass/Vol] 31.7 g/dL 32-36 [facility] Platelet mean volume (Bld) [Entitic vol] 9.9 fL 6.2-12.0 [facility] Platelets (Bld) [#/Vol] 275 10*3/uL 150-450 [facility] No Panel InformationOrdered By: Chuy Galeano on 08-28-2023 Estimated GFR (MDRD) Amer 91 mL/min >60 [facility] Comment on above: GFR Calc Estimated GFR (MDRD) Non-Af Amer 75 mL/min >60 [facility] Comment on above: Non- GFR Calc Vitamin D 25-Hydroxy 11.8 ng/mL [facility] Comment on above: Vitamin D 25(OH) Sta tus Range Deficiency <20 ng/mL (50nmol/L) Insufficiency 20 - 30 ng/mL (50 - 75 nmol/L) Sufficiency 30 - 100 ng/mL (75 - 250 nmol/L) Toxicity >100 ng/mL (>250 nmol/L) VLDL Cholesterol 24 mg/dL 5-40 [facility] RBC Auto (Bld) [#/Vol]Ordere d By: Chuy Galeano on 08-28-2023 RBC (Bld) [#/Vol] 3.91 10*6/uL 4.6-6.2 [facility] Serum or plasma calcium douglas urement (mass/volume)Ordered By: Chuy Galeano on 08-28-2023 Calcium [Mass/Vol] 9.1 mg/dL 8.5-10.1 [facility] Serum or plasma creatinine m easurement (mass/volume)Ordered By: Chuy Galeano on 08-28-2023 Creatinine [Mass/Vol] 1.06 mg/dL 0.70-1.30 [facility] Comment on above: The validity of the calculated GFR & GFRAA in patients over 70 years has not been determined. Clinical correlation is essential. Serum or plasma thyroid stim ulating hormone (TSH) measurement (units/volume)Ordered By: Chuy Galeano on 08-28-2023 TSH Qn 3.03 uIU/mL 0.358-3.74 [facility] Serum or plasma urea nitroge n measurement (mass/volume)Ordered By: Chuy Galeano on 08-28-2023 Urea nitrogen [Mass/Vol] 12 mg/dL 7-18 [facility] Thin prep Papanicolaou smear with manual screeningOrdered By: Chuy Galeano on 08-28-2023 Thin prep Papanicolaou smear with manual screening 3.5 g/dL 3.2-5.0 [facility] Thin prep Papanicolaou smear with manual screening 15 U/L 15-37 [facility] Thin prep Papanicolaou smear with manual screening 5 5-15 [facility] Whole blood hemoglobin A1c/t otal hemoglobin ratio (mass fraction)Ordered By: Chuy Galeano on 08-28-2023 HbA1c (Bld) [Mass fraction] 5.3 % 3.8-5.6 [facility] Comment on above: Normal < 5.7 % Predi abetic 5.7 - 6.4 % Diabetic >or= 6.5 % Please note range changes. Laboratory - Chemistry and C hemistry - challengeOrdered By: Chuy Galeano on 04-04-2023 T4 [Mass/Vol] 8.0 ug/dL 4.5-12.1 [facility] No Panel InformationOrdered By: Chuy Galeano on 04-04-2023 Thyroid Stimulating Hormone (TSH) 2.55 uIU/mL 0.358-3.74 [facility] Total Triiodothyronine 0.88 ng/mL 0.6-1.81 [facility] CNOVon 01-17-2023 CNOV Office Visit ([facility] ) NATALIE GERBER ([id number]) 1960 M Date Time Provider Department 01/17/23 9:15 AM [facility] During your visit today, we recorded the [...] Order(s):XR SHOULDER 3V AP/Y VIEW/AXILLARY LEFT (AK) [[id number]] Order #: [id number] Prescriptions as of 01/21/2023 - spironolactone (ALDACTONE) [...] COVID-19 [U07.1] (more content not included)... Normal [facility] 11-22-2022 [facility] Telephone ([facility]) NATALIE GERBER ([id number]) 1960 M Date Time Provider Department 11/22/22 [facility] During your visit today, we recorded the [...] (more content not included)... Normal [facility] NATALIE GERBER ([id number]) 1960 M Date Time Provider Department 11/20/22 [facility] During your visit today, we recorded the [...] (more content not included)... Normal [facility] CNOVon 08-23-2022 CNOV Office Visit ([facility] ) CLINTNATALIE German ([id number]) 1960 M Date Time Provider Department 08/23/22 9:15 AM [facility] During your visit today, we recorded the [...] mobility with his left shoulder. Is prescribed [place] and tramadol by his nursing facility. Pain [...] (more content not included)... Normal [facility] CNPNon 08-21-2022 CNPN Telephone ([facility]) NATALIE GERBER ([id number]) 1960 M Date Time Provider Department 08/21/22 [facility] During your visit today, we recorded the [...] Encounter Status:Closed by LG CHINCHILLA on 08/21/22 [facility] 08-02-2022 CNPN Telephone ([facility]) NATALIE GERBER ([id number]) 1960 M Date Time Provider Department 08/02/22 [facility] During your visit today, we recorded the [...] leg [R20.2] 09/01/2016 Fracture, Colles, right, closed [S52.181A] 07/11/2017 Obesity, Class III, BMI >= 40 [...] Encounter Status:Closed by LG CHINCHILLA on 08/02/22 [facility] - Microbiology an d Antimicrobial susceptibilityon 12-29-2021 SARS-CoV-2 (COVID-19) RNA TESSA+probe Ql (Unsp spec) [facility] Work Phone: EKG 12 [place] 01-29-2020 Kenny, [facility] Incoming Cardiology Results From [facility] - 01/29/2020 11:54 AM EDT [facility] Test Date: 2020-01-28 Pat Name: Natalie Gerber Department: 1ACDU Room: Gender: M 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 Operator: AT : 1960 Requested By: DANIELLE SANDERSON Order Number: [id number] Reading MD: Dc Cohen Measurements Intervals [place] Rate: 84 P: 37 [place]: 137 QRS: 39 QRSD: 88 T: 89 QT: 383 QTc: 453 Interpretive Statements Sinus rhythm Borderline T wave abnormalities Electronically Signed On 01-29-2020 11:53:34 EDT by Dc Cohen [facility] Test Date: 2020-01-28 Pat Name: Natalie Gerber Department: 1ACDU Room: Gender: M Undercover Operator: AT : 1960 Requested By: DANIELLE SANDERSON Order Number: [id number] Reading MD: Dc Reid Intervals [place] Rate: 84 P: 37 [place]: 137 QRS: 39 QRSD: 88 T: 89 QT: 383 QTc: 453 Interpretive Statements Sinus rhythm Borderline T wave abnormalities Electronically Signed On 01-29-2020 11:53:34 EDT by Dc Cohen [place], [place] CBC Auto Differentialon 01-01 Absolute Baso # 0.1 10*3/uL 0 - 0.2 10*3/uL [place] Absolute Neut # 7.4 10*3/uL High 1.8 - 7 10*3/uL [place] Basophils/100 WBC (Bld) 0.6 % 0 - 2 % [place] Eosinophils (Bld) [#/Vol] 0.1 10*3/uL 0 - 0.5 10*3/uL [place] Eosinophils/100 WBC (Bld) 1.5 % 1 - 6 % [place] Erythrocyte distribution width (RBC) [Ratio] 15.8 % High 11.5 - 14.5 % [place] Granulocytes/100 WBC (Bld) 75.8 % 40 - 80 % [place] Hematocrit (Bld) [Volume fraction] 33.5 % Low 40 - 52 % [place] Hemoglobin (Bld) [Mass/Vol] 10.9 g/dL Low 13 - 18 g/dL [place] Interpretation and review of laboratory results Abnormal [place] Lymphocytes (Bld) [#/Vol] 1.7 10*3/uL 1 - 4.3 10*3/uL [place] Lymphocytes/100 WBC (Bld) 17.7 % Low 20 - 40 % [place] MCH (RBC) [Entitic mass] 27.6 pg 26 - 34 pg [place] MCHC (RBC) [Mass/Vol] 32.6 % 32 - 36 % [place], [place] MCV (RBC) [Entitic vol] 84.8 fL 80 - 98 fL [place] Monocytes (Bld) [#/Vol] 0.4 10*3/uL 0 - 0.8 10*3/uL [place] Monocytes/100 WBC (Bld) 4.4 % 2 - 10 % [place] Platelet mean volume (Bld) [Entitic vol] 7.6 fL 7.4 - 10.4 fL [place] Platelets (Bld) [#/Vol] 243 10*3/uL 140 - 440 10*3/uL [place] RBC (Bld) [#/Vol] 3.94 10*6/uL Low 4.4 - 5.9 10*6/uL [place] WBC (Bld) [#/Vol] 9.7 10*3/uL 3.6 - 10.7 10*3/uL [place] Test Performed by [facility], [address] [place] [id number] [place], [place] Comp Metabolic Panelon 01-27 ALP [Catalytic activity/Vol] 154 U/L High 38-126 [facility] Comment on above: Performed By: #### H EMOG, DDI2, BMP3, LIPA4, TROPN, BNP3 #### [place] [address] [address] [place], [place] ALT [Catalytic activity/Vol] 11 U/L Normal 0-49 [facility] Comment on above: Result Comment: The ALT test is performed by an updated assay method. Please note that the reference intervals have been changed and are now sex specific. Performed By: #### H EMOG, DDI2, BMP3, LIPA4, TROPN, BNP3 #### [place] [address] [address] [place], [place] Anion gap [Moles/Vol] 9 Normal [facility] Comment on above: Performed By: #### H EMOG, DDI2, BMP3, LIPA4, TROPN, BNP3 #### [place] [address] [address] [place], [place] AST [Catalytic activity/Vol] 25 U/L Normal 15-46 [facility] Comment on above: Performed By: #### H EMOG, DDI2, BMP3, LIPA4, TROPN, BNP3 #### [place] [address] [address] [place], [place] Bilirubin [Mass/Vol] 0.4 mg/dL Normal 0.2-1.3 [facility] Comment on above: Performed By: #### H EMOG, DDI2, BMP3, LIPA4, TROPN, BNP3 #### [place] [address] [address] [place] Calcium [Mass/Vol] 8.9 mg/dL Normal 8.4-10.4 [facility] Comment on above: Performed By: #### H EMOG, DDI2, BMP3, LIPA4, TROPN, BNP3 #### [place] [address] [address] [place] CO2 [Moles/Vol] 26 mmol/L Normal 22-30 [facility] Comment on above: Performed By: #### H EMOG, DDI2, BMP3, LIPA4, TROPN, BNP3 #### [place] [address] [address] [place] Creatinine [Mass/Vol] 0.62 mg/dL Normal 0.52-1.25 [facility] Comment on above: Performed By: #### H EMOG, DDI2, BMP3, LIPA4, TROPN, BNP3 #### [facility] [facility] [address] [place] [address] GFR/1.73 sq M predicted among blacks MDRD (S/P/Bld) [Vol rate/Area] mL/min/{1.73_m2} Normal >60 [facility] Comment on above: Performed By: #### H EMOG, DDI2, BMP3, LIPA4, TROPN, BNP3 #### [facility] [address] [place] [address] GFR/1.73 sq M predicted among non-blacks MDRD (S/P/Bld) [Vol rate/Area] mL/min/{1.73_m2} Normal >60 [facility] Comment on above: Result Comment: KDIG O [...] [facility] [address] [place] [address] Glucose [Mass/Vol] 127 mg/dL High 70-100 [facility] Comment on above: Performed By: #### H EMOG, DDI2, BMP3, LIPA4, TROPN, BNP3 #### [facility] [address] [place] [address] Protein [Mass/Vol] 7.4 g/dL Normal 6.3-8.2 [facility] Comment on above: Performed By: #### H EMOG, DDI2, BMP3, LIPA4, TROPN, BNP3 #### [place] [address] [address] [place] Urea nitrogen [Mass/Vol] 14 mg/dL Normal 7-20 [facility] Comment on above: Performed By: #### H EMOG, DDI2, BMP3, LIPA4, TROPN, BNP3 #### [place] [address] [address] [place] Potassium [Moles/Vol] 3.8 mmol/L Normal 3.5-5.1 [facility] Comment on above: Performed By: #### H EMOG, DDI2, BMP3, LIPA4, TROPN, BNP3 #### [place] [address] [address] [place] Albumin [Mass/Vol] 3.9 g/dL Normal 3.5-5.0 [facility] Comment on above: Performed By: #### H EMOG, DDI2, BMP3, LIPA4, TROPN, BNP3 #### [place] [address] [address] [place] Chloride [Moles/Vol] 102 mmol/L Normal 98-107 [facility] Comment on above: Performed By: #### H EMOG, DDI2, BMP3, LIPA4, TROPN, BNP3 #### [place] [address] [address] [place] Sodium [Moles/Vol] 136 mmol/L Normal 135-145 [facility] Comment on above: Performed By: #### H EMOG, DDI2, BMP3, LIPA4, TROPN, BNP3 #### [place] [address] [address] [place], [place] Comprehensive Metabolic Pane [place] 01-28-2020 Albumin [Mass/Vol] 3.9 g/dL 3.5 - 5 g/dL [place] ALP [Catalytic activity/Vol] 154 U/L High 38 - 126 U/L [place] ALT [Catalytic activity/Vol] 11 U/L 0 - 49 U/L [place] Comment on above: The ALT test is perf ormed by an updated assay method. Please note that the reference intervals have been changed and are now sex specific. Anion gap [Moles/Vol] 9 mmol/L [place], [place] AST [Catalytic activity/Vol] 25 U/L 15 - 46 U/L [place] Bilirubin Ql (U) 0.4 mg/dL 0.2 - 1.3 mg/dL [place] Calcium [Mass/Vol] 8.9 mg/dL 8.4 - 10. 4 mg/dL [place] Chloride [Moles/Vol] 102 mmol/L 98 - 10 7 mmol/L [place] CO2 [Moles/Vol] 26 mmol/L 22 - 30 mmol/L [place] Creatinine [Mass/Vol] 0.62 mg/dL 0.52 - 1.25 mg/dL [place] EGFR IF NonAfrican Greenlandic >90.0 >60 mL/min [place] Comment on above: KDIGO guidelines pro [...] MDRD (S/P/Bld) [Vol rate/Area] mL/min/{1.73_m2} >60 mL/min [place] Glucose [Mass/Vol] 127 mg/dL High 70 - 100 mg/dL [place] Interpretation and review of laboratory results Abnormal [place] Potassium [Moles/Vol] 3.8 mmol/L 3.5 - 5.1 mmol/L [place] Protein [Mass/Vol] 7.4 g/dL 6.3 - 8.2 g/dL [place] Sodium [Moles/Vol] 136 mmol/L 135 - 145 mmol/L [place] Urea nitrogen [Mass/Vol] 14 mg/dL 7 - 20 mg/dL [place] Test Performed by [id number] [place] [address] Hemogram w/ Autodiffon 01-27 Abs Baso Cnt 0.1 10*3/uL Normal 0.0-0.2 [facility] Comment on above: Performed By: #### H EMOG, DDI2, BMP3, LIPA4, TROPN, BNP3 #### [address] Abs Neutrophile Cnt 7.4 10*3/uL High 1.8-7.0 [facility] Comment on above: Performed By: #### H EMOG, DDI2, BMP3, LIPA4, TROPN, BNP3 #### [address] Basophils/100 WBC (Bld) 0.6 % Normal 0.0-2.0 [facility] Comment on above: Performed By: #### H EMOG, DDI2, BMP3, LIPA4, TROPN, BNP3 #### [address] Eosinophils (Bld) [#/Vol] 0.1 10*3/uL Normal 0.0-0.5 [facility] Comment on above: Performed By: #### H EMOG, DDI2, BMP3, LIPA4, TROPN, BNP3 #### [address] Eosinophils/100 WBC (Bld) 1.5 % Normal 1.0-6.0 [facility] Comment on above: Performed By: #### H EMOG, DDI2, BMP3, LIPA4, TROPN, BNP3 #### [place] [address] [address] [place] Erythrocyte distribution width (RBC) [Ratio] 15.8 % High 11.5-14.5 [facility] Comment on above: Performed By: #### H EMOG, DDI2, BMP3, LIPA4, TROPN, BNP3 #### [place] [address] [place], [place] Granulocytes/100 WBC (Bld) 75.8 % Normal 40.0-80.0 [facility] Comment on above: Performed By: #### H EMOG, DDI2, BMP3, LIPA4, TROPN, BNP3 #### [place] [address] [place], [place] Hematocrit (Bld) [Volume fraction] 33.5 % Low 40.0-52.0 [facility] Comment on above: Performed By: #### H EMOG, DDI2, BMP3, LIPA4, TROPN, BNP3 #### [place] [address] [address] [place] Hemoglobin (Bld) [Mass/Vol] 10.9 g/dL Low 13.0-18.0 [facility] Comment on above: Performed By: #### H EMOG, DDI2, BMP3, LIPA4, TROPN, BNP3 #### [place] [address] [address] [place] Lymphocytes (Bld) [#/Vol] 1.7 10*3/uL Normal 1.0-4.3 [facility] Comment on above: Performed By: #### H EMOG, DDI2, BMP3, LIPA4, TROPN, BNP3 #### [address] Lymphocytes/100 WBC (Bld) 17.7 % Low 20.0-40.0 [facility] Comment on above: Performed By: #### H EMOG, DDI2, BMP3, LIPA4, TROPN, BNP3 #### [address] MCH (RBC) [Entitic mass] 27.6 pg Normal 26.0-34.0 [facility] Comment on above: Performed By: #### H EMOG, DDI2, BMP3, LIPA4, TROPN, BNP3 #### [address] MCHC (RBC) [Mass/Vol] 32.6 % Normal 32.0-36.0 [facility] Comment on above: Performed By: #### H EMOG, DDI2, BMP3, LIPA4, TROPN, BNP3 #### [address] MCV (RBC) [Entitic vol] 84.8 fL Normal 80.0-98.0 [facility] Comment on above: Performed By: #### H EMOG, DDI2, BMP3, LIPA4, TROPN, BNP3 #### [address] Monocytes (Bld) [#/Vol] 0.4 10*3/uL Normal 0.0-0.8 [facility] Comment on above: Performed By: #### H EMOG, DDI2, BMP3, LIPA4, TROPN, BNP3 #### [address] Monocytes/100 WBC (Bld) 4.4 % Normal 2.0-10.0 [facility] Comment on above: Performed By: #### H EMOG, DDI2, BMP3, LIPA4, TROPN, BNP3 #### [address] Platelet mean volume (Bld) [Entitic vol] 7.6 fL Normal 7.4-10.4 [facility] Comment on above: Performed By: #### H EMOG, DDI2, BMP3, LIPA4, TROPN, BNP3 #### [address] Platelets (Bld) [#/Vol] 243 10*3/uL Normal 140-440 [facility] Comment on above: Performed By: #### H EMOG, DDI2, BMP3, LIPA4, TROPN, BNP3 #### [facility] [address] [place], [place] RBC (Bld) [#/Vol] 3.94 10*6/uL Low 4.40-5.90 [facility] Comment on above: Performed By: #### H EMOG, DDI2, BMP3, LIPA4, TROPN, BNP3 #### [place] [address] [address] [place] WBC (Bld) [#/Vol] 9.7 10*3/uL Normal 3.6-10.7 [facility] Comment on above: Performed By: #### H EMOG, DDI2, BMP3, LIPA4, TROPN, BNP3 #### [place] [address] [address] [place], [place] COVID-19on 01-27-2020 SARS-CoV-2 Not Detected Expected Result: Not Detected _ Real-time, RT-PCR performed on the [employer] System by the [facility] Microbiology Service. Negative results do not preclude SARS-CoV-2 infection and should not be used as the sole basis for treatment or other patient management decisions. This assay was developed by [employer] and [employer] and distributed under an Emergency Use Authorization (EUA) granted by the FDA for the qualitative detection of SARS-CoV-2 nucleic acid. Results were determined from a pool consisting of specimens from additional patients. This test was modified, and its performance characteristics, showing minimal loss of sensitivity, have been validated by the [facility]. Approval is pending review by the U. S. Food and Drug Administration. If symptoms are severe and persist, testing a new specimen may be warranted. Additionally, IgG testing may be considered for patients more than 7-10 days post onset of symptoms. [facility]LEIGH ANN Test Performed by [facility], [place] [address] Specimen Source Comment:Nasopharyngeal Swab [facility] LEIGH ANN CTA Chest W WO (PE study)on 01-27-2020 Patient Name: NATALIE GERBER ---CT--- Exam Date/Time 01/27/2020 00:08:34 EDT Exam CTA Chest w/ + w/o Contrast Ordering Physician DAVID ZULETA Accession Number [id number] CPT4 Codes 48157 (), Q9967 (CT ISOVUE 370MG/[id number]) Reason For Exam chest pain, SOB, hx [...] DIANE Transcribed Date and Time: 01/27/2020 0:51 [place], [place] [facility] From [facility] - 01/27/2020 1:00 AM EDT Patient Name: NATALIE GERBER ---CT--- Exam Date/Time 01/27/2020 00:08:34 EDT Exam CTA Chest w/ + w/o Contrast Ordering Physician DAVID ZULETA Accession Number [id number] CPT4 Codes 82186 (), Q9967 (CT ISOVUE 370MG/[id number]&1) Reason For Exam chest pain, SOB, hx [...] DIANE Transcribed Date and Time: 01/27/2020 0:51 [place], [place] CTA Chest w/ + w/o Contrasto n 01-27-2020 CTA Chest w/ + w/o Contrast Patient Name: NATALIE GERBER [facility]: [id number] CT Exam Date/Time 01/27/2020 00:08:34 EDT Exam CTA Chest w/ + w/o Contrast Ordering Physician DAVID ZULETA Accession Number [id number] CPT4 Codes 62169 (), Q9967 (CT ISOVUE 370MG/[id number]) Reason For Exam chest pain, SOB, [...] Transcribed Date and Time: 01/27/2020 0:51 Normal [facility] EKG 12 Lead - Chest Painon 0 01-27-2020 [facility] Test Date: 2020-01-26 Pat Name: Natalie Gerber Department: 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 : 1960 Requested By: DAVID ZULETA Order Number: [id number] Reading MD: Phan Quijano Measurements Intervals [place] Rate: 90 P: 30 [place]: 149 QRS: 23 QRSD: 85 T: 80 QT: 366 QTc: 448 Interpretive Statements Sinus rhythm Multiple premature complexes, vent & supraven Abnormal R-wave progression, early transition Nonspecific T abnormalities, lateral leads Electronically Signed On 01-27-2020 10:23:06 EDT by Phan Quijano [facility] - 01/27/2020 10:24 AM EDT [facility] Test Date: 2020-01-26 Pat Name: Natalie Gerber Department: 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 : 1960 Requested By: DAVID ZULETA Order Number: [id number] Reading MD: Phan Quijano Measurements Intervals [place] Rate: 90 P: 30 [place]: 149 QRS: 23 QRSD: 85 T: 80 QT: 366 QTc: 448 Interpretive Statements Sinus rhythm Multiple premature complexes, vent & supraven Abnormal R-wave progression, early transition Nonspecific T abnormalities, lateral leads Electronically Signed On 01-27-2020 10:23:06 EDT by Phan Quijano [facility] [id number] 01-27-2020 SARS-CoV-2 SARS-CoV-2 --> Statu s: F Not Detected Expected Result: Not Detected _ Real-time, RT-PCR performed on the [employer] System by the [facility]biology [facility]. Negative results do not preclude SARS-CoV-2 infection and should not be used as the sole basis for treatment or other patient management decisions. This assay was developed by [employer] and distributed under an Emergency Use Authorization (EUA) granted by the FDA for the qualitative detection of SARS-CoV-2 nucleic acid. Results were determined from a pool consisting of specimens from additional patients. This test was modified, and its performance characteristics, showing minimal loss of sensitivity, have been validated by the [facility]. Approval is pending review by the U. S. Food and Drug Administration. If symptoms are severe and persist, testing a new specimen may be warranted. Additionally, IgG testing may be considered for patients more than 7-10 days post onset of symptoms. Expected Result: Not Detected _ Real-time, RT-PCR performed on the BD MAX System by the [facility]biology [facility]. Negative results do not preclude SARS-CoV-2 infection and should not be used as the sole basis for treatment or other patient management decisions. This assay was developed by [employer] and [employer] and distributed under an Emergency Use Authorization (EUA) granted by the FDA for the qualitative detection of SARS-CoV-2 nucleic acid. Results were determined from a pool consisting of specimens from additional patients. This test was modified, and its performance characteristics, showing minimal loss of sensitivity, have been validated by the [facility]. Approval is pending review by the U. S. Food and Drug Administration. If symptoms are severe and persist, testing a new specimen may be warranted. Additionally, IgG testing may be considered for patients more than 7-10 days post onset of symptoms. Normal [facility] Comment on above: Order Comment: Speci men Source Comment:Nasopharyngeal Swab Performed By: #### H EMOG, DDI2, BMP3, LIPA4, TROPN, BNP3 #### [address] Troponinon 01-27-2020 Troponin I.cardiac [Mass/Vol] ng/mL 0 - 0.034 ng/mL [place], [place] Comment on above: . Test Performed by [facility], [address] [place] [address] Troponin I.cardiac [Mass/Vol] ng/mL 0 - 0.034 ng/mL [place], [place] Comment on above: . Test Performed by [address] Troponin Ion 01-27-2020 Troponin I.cardiac [Mass/Vol] ng/mL Normal 0.000-0.03 4 [facility] Comment on above: Result Comment: . Performed By: #### H EMOG, DDI2, BMP3, LIPA4, TROPN, BNP3 #### [address] [place] [address] [place], [place] Basic Metabolic Panelon 01-01 Urea nitrogen [Mass/Vol] 11 mg/dL Normal 7-20 [facility] Comment on above: Performed By: #### H EMOG, DDI2, BMP3, LIPA4, TROPN, BNP3 #### [address] [place] [address] [place], [place] Anion gap [Moles/Vol] 9 Normal [facility] Comment on above: Performed By: #### H EMOG, DDI2, BMP3, LIPA4, TROPN, BNP3 #### [place] [address] [address] [place] Calcium [Mass/Vol] 9.0 mg/dL Normal 8.4-10.4 [facility] Comment on above: Performed By: #### H EMOG, DDI2, BMP3, LIPA4, TROPN, BNP3 #### [place] [address] [address] [place] CO2 [Moles/Vol] 27 mmol/L Normal 22-30 [facility] Comment on above: Performed By: #### H EMOG, DDI2, BMP3, LIPA4, TROPN, BNP3 #### [place] [address] [address] [place] Glucose [Mass/Vol] 112 mg/dL High 70-100 [facility] Comment on above: Performed By: #### H EMOG, DDI2, BMP3, LIPA4, TROPN, BNP3 #### [place] [address] [address] [place] Creatinine [Mass/Vol] 0.60 mg/dL Normal 0.52-1.25 [facility] Comment on above: Performed By: #### H EMOG, DDI2, BMP3, LIPA4, TROPN, BNP3 #### [place] [address] [address] [place] GFR/1.73 sq M predicted among blacks MDRD (S/P/Bld) [Vol rate/Area] mL/min/{1.73_m2} Normal >60 [facility] Comment on above: Performed By: #### H EMOG, DDI2, BMP3, LIPA4, TROPN, BNP3 #### [place] [address] [place] GFR/1.73 sq M predicted among non-blacks MDRD (S/P/Bld) [Vol rate/Area] mL/min/{1.73_m2} Normal >60 [facility] Comment on above: Result Comment: KDIG O [...] EMOG, DDI2, BMP3, LIPA4, TROPN, BNP3 #### [facility] [address] [place], [place] Chloride [Moles/Vol] 102 mmol/L Normal 98-107 [facility] Comment on above: Performed By: #### H EMOG, DDI2, BMP3, LIPA4, TROPN, BNP3 #### [facility] [address] [place], [place] Potassium [Moles/Vol] 3.7 mmol/L Normal 3.5-5.1 [facility] Comment on above: Performed By: #### H EMOG, DDI2, BMP3, LIPA4, TROPN, BNP3 #### [address] Sodium [Moles/Vol] 138 mmol/L Normal 135-145 [facility] Comment on above: Performed By: #### H EMOG, DDI2, BMP3, LIPA4, TROPN, BNP3 #### [place] [address] [place], [place] Anion gap [Moles/Vol] 9 mmol/L [facility], [place] Calcium [Mass/Vol] 9.0 mg/dL 8.4 - 10. 4 mg/dL [facility], [place] Chloride [Moles/Vol] 102 mmol/L 98 - 10 7 mmol/L [facility], [place] CO2 [Moles/Vol] 27 mmol/L 22 - 30 mmol/L [place] Creatinine [Mass/Vol] 0.6 mg/dL 0.52 - 1.25 mg/dL [place] EGFR IF NonAfrican Greenlandic >90.0 >60 mL/min [place], [place] Comment on above: KDIGO guidelines pro [...] MDRD (S/P/Bld) [Vol rate/Area] mL/min/{1.73_m2} >60 mL/min [place] Glucose [Mass/Vol] 112 mg/dL High 70 - 100 mg/dL [place] Potassium [Moles/Vol] 3.7 mmol/L 3.5 - 5.1 mmol/L [place] Sodium [Moles/Vol] 138 mmol/L 135 - 145 mmol/L [place] Urea nitrogen [Mass/Vol] 11 mg/dL 7 - 20 mg/dL [place] Brain Natriuretic Peptideon 01-26-2020 Natriuretic peptide B (Bld) [Mass/Vol] 160 pg/mL High 0 - 125 pg/mL [place], [place] CR Chest Portableon 01-26-20 20 CR Chest Portable Patient Name: NATALIE GERBER Diagnostic Radiology Exam Date/Time 01/26/2020 22:10:39 EDT Exam CR Chest Portable Ordering Physician DAVID ZULETA Accession Number [id number] CPT4 Codes 86422 () Reason For Exam SOB Report CHEST [...] Transcribed Date and Time: 01/26/2020 9:56 Normal [facility] D-Dimer, Innovanceon 020 D-Dimer, Innovance 0.94 mg/L High 0.00-0.50 [facility] Comment on above: Result Comment: Inno aguiar D-Dimer values of <0.50 mg/L FEU can be used in combination with a pre-test probability model (e.g. Well's) to exclude pulmonary embolism (PE) disease, as well as an aid in the diagnosis of deep vein thrombosis (DVT). Performed By: #### H EMOG, DDI2, BMP3, LIPA4, TROPN, BNP3 #### [address] [id number] D-Dimer, Quantitativeon - D-Dimer, Quant 0.94 mg/L High 0 - 0.5 mg/L [facility] Comment on above: [employer]ance D-Dimer va lues of <0.50 mg/L FEU can be used in combination with a pre-test probability model (e.g. Well's) to exclude pulmonary embolism (PE) disease, as well as an aid in the diagnosis of deep vein thrombosis (DVT). Interpretation and review of laboratory results Abnormal snapp.meLEIGH ANN Test Performed by [facility], [address] [place] [id number] [facility], [place] ED Provider Noteon 0 ED Provider Note [...] rhythm at 90 bpm. Premature ventricular complex noted.[place] interval normal. QRS complex narrow. QTC normal. No ST segment elevations or depressions. Flat T waves anterior and lateral leads. Good R-wave progression through precordial leads. Interpretation of this EKG myself in the absence of a packaging assembler is normal sinus rhythm with premature ventricular [...] for clarification. 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 Past History Past Medical History: Diagnosis Date ? Anemia ? Anemia ? Arthritis ? CAD (coronary artery disease) Cath 05/2013 No disease, EF 60% ? CAD (coronary artery disease) ? CHF (congestive heart failure) (HCC) ? Depression ? Diverticulitis ? Diverticulosis ? GERD (gastroesophageal reflux disease) ? History of pulmonary embolus (PE) ? Hyperlipidemia ? Hypertension ? 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 Myocardial infarct (HCC) 2005 ? myocardial infarction ? LIAS on CPAP diagnosed in 09/2013 ? Pain [...] on phone: None Gets together: None Attends synagogue service: None Active member of club or [...] eGFR >90.0 >60 mL/min EGFR IF NonAfrican Greenlandic >90.0 >60 mL/min Calcium 9.0 8.4 - [...] # 2.3 1.0 - 4.3 10*3/uL Absolute Dane # 0.4 0.0 - 0.8 10*3/uL Absolute [...] Contrast Ordering Physician DAVID ZULETA Accession Number [id number] CPT4 Codes 27951 (), Q9967 (CT ISOVUE 370MG/ML&[id number]) Reason For Exam chest pain, SOB, hx [...] Portable Ordering Physician DAVID ZULETA Accession Number [id number] CPT4 Codes 69290 () Reason For Exam SOB Report CHEST [...] Upon arrival patient was placed on the alarm security or surveillance monitor and an EKG was obtained. Please see [...] words are mis-transcribed.) David Zuleta, JAXON - [employer] INST[employer] David Zuleta, JAXON - JENNIFER 01/27/20 0450 Normal [facility] Hemogram (CBC) w/Auto Diffon 01-26-2020 Absolute Baso # 0.1 10*3/uL 0 - 0.2 10*3/uL [place] Absolute Neut # 7.2 10*3/uL High 1.8 - 7 10*3/uL [place] Basophils/100 WBC (Bld) 0.6 % 0 - 2 % [place] Eosinophils (Bld) [#/Vol] 0.2 10*3/uL 0 - 0.5 10*3/uL [place] Eosinophils/100 WBC (Bld) 1.7 % 1 - 6 % [place] Erythrocyte distribution width (RBC) [Ratio] 15.4 % High 11.5 - 14.5 % [place] Granulocytes/100 WBC (Bld) 70.7 % 40 - 80 % [place] Hematocrit (Bld) [Volume fraction] 34.5 % Low 40 - 52 % [place] Hemoglobin (Bld) [Mass/Vol] 11.2 g/dL Low 13 - 18 g/dL [place] Interpretation and review of laboratory results Abnormal [place] Lymphocytes (Bld) [#/Vol] 2.3 10*3/uL 1 - 4.3 10*3/uL [place] Lymphocytes/100 WBC (Bld) 22.7 % 20 - 40 % [place] MCH (RBC) [Entitic mass] 27.8 pg 26 - 34 pg [place] MCHC (RBC) [Mass/Vol] 32.6 % 32 - 36 % [place], [place] MCV (RBC) [Entitic vol] 85.2 fL 80 - 98 fL [place], [place] Monocytes (Bld) [#/Vol] 0.4 10*3/uL 0 - 0.8 10*3/uL [place] Monocytes/100 WBC (Bld) 4.3 % 2 - 10 % [place] Platelet mean volume (Bld) [Entitic vol] 8.0 fL 7.4 - 10.4 fL [place] Platelets (Bld) [#/Vol] 286 10*3/uL 140 - 440 10*3/uL [place] RBC (Bld) [#/Vol] 4.05 10*6/uL Low 4.4 - 5.9 10*6/uL [place] WBC (Bld) [#/Vol] 10.2 10*3/uL 3.6 - 10.7 10*3/uL [place] Test Performed by [facility], [address] [place] [id number] [place] [address] Hemogram w/ Autodiffon 01-25 Abs Baso Cnt 0.1 10*3/uL Normal 0.0-0.2 [facility] Comment on above: Performed By: #### H EMOG, DDI2, BMP3, LIPA4, TROPN, BNP3 #### [address] [id number] Abs Neutrophile Cnt 7.2 10*3/uL High 1.8-7.0 [facility] Comment on above: Performed By: #### H EMOG, DDI2, BMP3, LIPA4, TROPN, BNP3 #### [address] [address] Basophils/100 WBC (Bld) 0.6 % Normal 0.0-2.0 [facility] Comment on above: Performed By: #### H EMOG, DDI2, BMP3, LIPA4, TROPN, BNP3 #### [address] [address] Eosinophils (Bld) [#/Vol] 0.2 10*3/uL Normal 0.0-0.5 [facility] Comment on above: Performed By: #### H EMOG, DDI2, BMP3, LIPA4, TROPN, BNP3 #### [address] Eosinophils/100 WBC (Bld) 1.7 % Normal 1.0-6.0 [facility] Comment on above: Performed By: #### H EMOG, DDI2, BMP3, LIPA4, TROPN, BNP3 #### [address] Erythrocyte distribution width (RBC) [Ratio] 15.4 % High 11.5-14.5 [facility] Comment on above: Performed By: #### H EMOG, DDI2, BMP3, LIPA4, TROPN, BNP3 #### [address] Granulocytes/100 WBC (Bld) 70.7 % Normal 40.0-80.0 [facility] Comment on above: Performed By: #### H EMOG, DDI2, BMP3, LIPA4, TROPN, BNP3 #### [address] Hematocrit (Bld) [Volume fraction] 34.5 % Low 40.0-52.0 [facility] Comment on above: Performed By: #### H EMOG, DDI2, BMP3, LIPA4, TROPN, BNP3 #### [address] Hemoglobin (Bld) [Mass/Vol] 11.2 g/dL Low 13.0-18.0 [facility] Comment on above: Performed By: #### H EMOG, DDI2, BMP3, LIPA4, TROPN, BNP3 #### [address] Lymphocytes (Bld) [#/Vol] 2.3 10*3/uL Normal 1.0-4.3 [facility] Comment on above: Performed By: #### H EMOG, DDI2, BMP3, LIPA4, TROPN, BNP3 #### [address] Lymphocytes/100 WBC (Bld) 22.7 % Normal 20.0-40.0 [facility] Comment on above: Performed By: #### H EMOG, DDI2, BMP3, LIPA4, TROPN, BNP3 #### [address] MCH (RBC) [Entitic mass] 27.8 pg Normal 26.0-34.0 [facility] Comment on above: Performed By: #### H EMOG, DDI2, BMP3, LIPA4, TROPN, BNP3 #### [address] MCHC (RBC) [Mass/Vol] 32.6 % Normal 32.0-36.0 [facility] Comment on above: Performed By: #### H EMOG, DDI2, BMP3, LIPA4, TROPN, BNP3 #### [address] MCV (RBC) [Entitic vol] 85.2 fL Normal 80.0-98.0 [facility] Comment on above: Performed By: #### H EMOG, DDI2, BMP3, LIPA4, TROPN, BNP3 #### [address] Monocytes (Bld) [#/Vol] 0.4 10*3/uL Normal 0.0-0.8 [facility] Comment on above: Performed By: #### H EMOG, DDI2, BMP3, LIPA4, TROPN, BNP3 #### [address] Monocytes/100 WBC (Bld) 4.3 % Normal 2.0-10.0 [facility] Comment on above: Performed By: #### H EMOG, DDI2, BMP3, LIPA4, TROPN, BNP3 #### [address] Platelet mean volume (Bld) [Entitic vol] 8.0 fL Normal 7.4-10.4 [facility] Comment on above: Performed By: #### H EMOG, DDI2, BMP3, LIPA4, TROPN, BNP3 #### [place] [address] [address] [place], [place] Platelets (Bld) [#/Vol] 286 10*3/uL Normal 140-440 [facility] Comment on above: Performed By: #### H EMOG, DDI2, BMP3, LIPA4, TROPN, BNP3 #### [place] [address] [place], [place] RBC (Bld) [#/Vol] 4.05 10*6/uL Low 4.40-5.90 [facility] Comment on above: Performed By: #### H EMOG, DDI2, BMP3, LIPA4, TROPN, BNP3 #### [place] [address] [place], [place] WBC (Bld) [#/Vol] 10.2 10*3/uL Normal 3.6-10.7 [facility] Comment on above: Performed By: #### H EMOG, DDI2, BMP3, LIPA4, TROPN, BNP3 #### [place] [address] [address] [place], [place] NT pro BNPon 01-26-2020 Natriuretic peptide B (Bld) [Mass/Vol] 160 pg/mL High 0-125 [facility] Comment on above: Performed By: #### H EMOG, DDI2, BMP3, LIPA4, TROPN, BNP3 #### [place] [address] [place], [place] Otheron 01-26-2020 Interpretation and review of laboratory results Abnormal [place], [place] Test Performed by [facility], [address], [place] [id number] [place] [address] Troponin Ion 01-26-2020 Troponin I.cardiac [Mass/Vol] ng/mL Normal 0.000-0.03 4 [facility] Comment on above: Result Comment: . Performed By: #### H EMOG, DDI2, BMP3, LIPA4, TROPN, BNP3 #### [place] [address] [place], [place] Troponin x1on 01-26-2020 Troponin I.cardiac [Mass/Vol] ng/mL 0 - 0.034 ng/mL [place], [place] Comment on above: . XR CHEST PORTABLEon 01-26-20 Patient Name: NATALIE GERBER ---Diagnostic Radiology--- Exam Date/Time 01/26/2020 22:10:39 EDT Exam CR Chest Portable Ordering Physician DAVID ZULETA Accession Number [id number] CPT4 Codes 30329 () Reason For Exam SOB Report CHEST [...] JASON Transcribed Date and Time: 01/26/2020 9:56 [place], [place] [facility], [facility] Incoming Radiology Results From [facility] - 01/26/2020 10:10 PM EDT Patient Name: NATALIE GERBER ---Diagnostic Radiology--- Exam Date/Time 01/26/2020 22:10:39 EDT Exam CR Chest Portable Ordering Physician DAVID ZULETA Accession Number [id number] CPT4 Codes 60246 () Reason For Exam SOB Report CHEST [...] JASON Transcribed Date and Time: 01/26/2020 9:56 [place], [place] CRPon 12-11-2019 CRP [Mass/Vol] 16.8 mg/dL High 0.0-0.8 [facility] Comment on above: Performed By: #### T ROP #### [place] [address] Comprehensive Metabolic Pane [place] 12-11-2019 Albumin [Mass/Vol] 3.3 g/dL Low 3.9-4.9 [facility] Comment on above: Performed By: #### T ROP #### [place] [address] ALP [Catalytic activity/Vol] 124 U/L High 38-113 [facility] Comment on above: Performed By: #### T ROP #### [place] [address] ALT [Catalytic activity/Vol] 37 U/L Normal 10-54 [facility] Comment on above: Performed By: #### T ROP #### [place] [address] Anion gap [Moles/Vol] 10 mmol/L Normal 9-18 [facility] Comment on above: Performed By: #### T ROP #### [place] [address] AST [Catalytic activity/Vol] 115 U/L High 14-40 [facility] Comment on above: Performed By: #### T ROP #### [place] [address] Bilirubin [Mass/Vol] 0.3 mg/dL Normal 0.2-1.3 [facility] Comment on above: Performed By: #### T ROP #### [facility] [address] [place], [place] [address] Calcium [Mass/Vol] 8.0 mg/dL Low 8.5-10.2 [facility] Comment on above: Performed By: #### T ROP #### [facility] [address] [place], [place] [address] Chloride [Moles/Vol] 103 mmol/L Normal 97-105 [facility] Comment on above: Performed By: #### T ROP #### [facility] [address] [place], [place] [address] CO2 Blood 24 mmol/L Normal 22-30 [facility] Comment on above: Performed By: #### T ROP #### [facility] [address] [place] [address] Creatinine [Mass/Vol] 0.53 mg/dL Low 0.73-1.22 [facility] Comment on above: Performed By: #### T ROP #### [facility] [address] [place] [address] Glucose [Mass/Vol] 125 mg/dL High 74-99 [facility] Comment on above: Result Comment: The [place] Diabetes [employer] (ADA) provides guidance for cutoff [...] Standards of Medical Care in Diabetes 2016; [place] [employer]. Diabetes Care. 2016;39(Suppl 1). Performed By: #### T ROP #### [facility] [address] [place], [place] [address] Potassium [Moles/Vol] 4.4 mmol/L Normal 3.7-5.1 [facility] Comment on above: Performed By: #### T ROP #### [facility] [address] [place], [place] [address] Protein [Mass/Vol] 5.9 g/dL Low 6.3-8.0 [facility] Comment on above: Performed By: #### T ROP #### [facility] [address] [place], [place] [address] Sodium [Moles/Vol] 137 mmol/L Normal 136-144 [facility] Comment on above: Performed By: #### T ROP #### [facility] [address] [place], [place] [address] Urea nitrogen [Mass/Vol] 20 mg/dL Normal 9-24 [facility] Comment on above: Performed By: #### T ROP #### [place] [id number] Legionella Ag, Urineon 12-10 Legionella Ag, Urine Test performed at [facility] Presumptive negative for L. pneumophilia serogroup 1 antigen in urine, suggesting no recent or current infection. Infection due to Legionella cannot be ruled out since other serogroups and species may cause disease, antigen may not be present in urine in early infection, and the level of antigen present in the urine may be below the detection limit of the test. Normal [facility] Comment on above: Performed By: #### G LMET #### [place] [id number] MDRD GFRon 12-11-2019 GFR/1.73 sq M predicted among non-blacks MDRD (S/P/Bld) [Vol rate/Area] mL/min/{1.73_m2} Normal >60mL/min/ 1.73m2 [facility] Comment on above: Result Comment: If t he patient is , multiply the result by 1.210. Performed By: #### U RIN2 #### [address] [address] Procalcitoninon 12-11-2019 Procalcitonin 0.40 ng/mL High 0.00-0.08 [facility] Comment on above: Result Comment: Used as [...] elevations. Performed By: #### T ROP #### [place] [address] Basic Metabolic Panelon 07- 0-2020 Anion gap [Moles/Vol] 18 mmol/L Normal 9-18 [facility] Comment on above: Performed By: #### E RTRP #### [place] [address] Calcium [Mass/Vol] 8.1 mg/dL Low 8.5-10.2 [facility] Comment on above: Performed By: #### E RTRP #### [facility] [address] [place] [address] Chloride [Moles/Vol] 98 mmol/L Normal 97-105 [facility] Comment on above: Performed By: #### E RTRP #### [place] [address] CO2 Blood 19 mmol/L Low 22-30 [facility] Comment on above: Performed By: #### E RTRP #### [facility] [address] [place] [address] Creatinine [Mass/Vol] 1.97 mg/dL High 0.73-1.22 [facility] Comment on above: Performed By: #### E RTRP #### [facility] [address] [place] [address] Glucose [Mass/Vol] 117 mg/dL High 74-99 [facility] Comment on above: Result Comment: The [place] Diabetes [employer] (ADA) provides guidance for cutoff [...] Standards of Medical Care in Diabetes 2016; [place] [employer]. Diabetes Care. 2016;39(Suppl 1). Performed By: #### E RTRP #### [facility] [address] [place], [place] [address] Potassium [Moles/Vol] 4.8 mmol/L Normal 3.7-5.1 [facility] Comment on above: Performed By: #### E RTRP #### [address] [address] Sodium [Moles/Vol] 135 mmol/L Low 136-144 [facility] Comment on above: Performed By: #### E RTRP #### [address] [address] Urea nitrogen [Mass/Vol] 46 mg/dL High 9-24 [facility] Comment on above: Performed By: #### E RTRP #### [address] [address] CPKon 12-10-2019 CK [Catalytic activity/Vol] 5117 U/L High 51-298 [facility] Comment on above: Performed By: #### T ROP #### [address] [address] CK [Catalytic activity/Vol] 7809 U/L High 51-298 [facility] Comment on above: Performed By: #### T ROP #### [address] [address] Creatinine, Urineon 12-10-19 20 Creatinine, Urine 107.4 mg/dL Normal 46.8-314.5 [facility] Comment on above: Performed By: #### T ROP #### [address] [address] Creatinine, Urine 193.3 mg/dL Normal 46.8-314.5 [facility] Comment on above: Performed By: #### E RTRP #### [facility] [address] [place], [place] [address] Cult Bloodon 12-10-2019 Cult Blood Test performed at [facility] No growth Normal [facility] Comment on above: Performed By: #### G LMET #### [address] [address] D-Dimer Quantitativeon 12-09 D-Dimer, Quant. 1140 ng/mL(FEU) Critically high <500 [facility] Comment on above: Result Comment: 500 ng/mL [...] >=35.8%. Performed By: #### E RTRP #### [address] [address] Ferritinon 12-10-2019 Ferritin [Mass/Vol] 193.0 ng/mL Normal 30.3-565.7 [facility] Comment on above: Result Comment: Susan ents [...] result. Performed By: #### T ROP #### [address], [place] [address] Hemogramon 12-10-2019 Erythrocyte distribution width (RBC) [Ratio] 14.5 % High 11.6-14.4 [facility] Comment on above: Performed By: #### E RTRP #### [facility] [address] [place] [address] Hematocrit (Bld) [Volume fraction] 30.3 % Low 40.1-51.0 [facility] Comment on above: Performed By: #### E RTRP #### [facility] [address] [place] [address] Hemoglobin (Bld) [Mass/Vol] 9.5 g/dL Low 13.7-17.5 [facility] Comment on above: Performed By: #### E RTRP #### [facility] [address] [place] [address] MCH (RBC) [Entitic mass] 28.2 pg Normal 25.7-32.2 [facility] Comment on above: Performed By: #### E RTRP #### [facility] [address] [place] [address] MCHC (RBC) [Mass/Vol] 31.4 % Low 32.3-36.5 [facility] Comment on above: Performed By: #### E RTRP #### [facility] [address] [place] [address] MCV (RBC) [Entitic vol] 89.9 fL Normal 83.2-95.6 [facility] Comment on above: Performed By: #### E RTRP #### [facility] [address] [place] [address] Platelet mean volume (Bld) [Entitic vol] 10.1 fL Normal 8.7-12.0 [facility] Comment on above: Performed By: #### E RTRP #### [facility] [address] [place] [address] Platelets (Bld) [#/Vol] 227 thou/cmm Normal 141-365 [facility] Comment on above: Performed By: #### E RTRP #### [facility] [address] [place] [address] RBC (Bld) [#/Vol] 3.37 mil/cmm Low 4.63-6.08 [facility] Comment on above: Performed By: #### E RTRP #### [facility] [address] [place] [address] RDW SD 47.3 fl High 36.1-45.8 [facility] Comment on above: Performed By: #### E RTRP #### [facility] [address] [place] [address] WBC (Bld) [#/Vol] 15.94 thou/cmm High 4.23-9.07 [facility] Comment on above: Performed By: #### E RTRP #### [place] [address] Lactic Acidon 12-10-2019 Lactate [Moles/Vol] 1.3 mmol/L Normal 0.5-2.2 [facility] Comment on above: Performed By: #### E RTRP #### [facility] [address] [place] [address] MRSA Screenon 12-10-2019 MRSA DNA TESSA+probe Ql (Unsp spec) Test performed at [facility] ORGANISM: *Methicillin Resist S.aureus (ID: 1) MRSA Nasal Colonization Present Normal [facility] Comment on above: Performed By: #### G LMET #### [place] [address] Sodium,Urineon 12-10-2019 Sodium (U) [Moles/Vol] 36.0 mmol/L Normal 14.0-216.0 [facility] Comment on above: Performed By: #### T ROP #### [place] [address] Sodium (U) [Moles/Vol] 49.0 mmol/L Normal 14.0-216.0 [facility] Comment on above: Performed By: #### E RTRP #### [place] [address] Strep pneumoniae Agon 2019 Strep pneumoniae Ag Test performed at [facility] Negative for Streptococcus pneumoniae antigen. Presumptive negative for pneumococcal pneumonia, suggesting no current or recent pneumococcal infection. Infection due to S. pneumoniae cannot be ruled out since the antigen present in the sample may be below the detection limit of the test. Normal [facility] Comment on above: Performed By: #### G LMET #### [facility] [address] [place], [place] [address] Triglyceride Bloodon 020 Triglyceride [Mass/Vol] 443 mg/dL High 0-149 [facility] Comment on above: Result Comment: Trig lycerides < 150 mg/dL, Normal Triglycerides 150 to 199 mg/dL, Borderline high Triglycerides 200 to 499 mg/dL, High Triglycerides > 499 mg/dL, Very high Performed By: #### T ROP #### [address] [address] Activated PTTon 12-09-2019 aPTT Coag (Bld) [Time] 25.2 s Normal 23.0-32.4 [facility] Comment on above: Result Comment: Unfr actionated [...] laboratory APTT reagent in use throughout the [facility]. Performed By: #### U RIN2 #### [facility] [address] [place], [place] [address] Blood Gas Arterialon 020 Base Excess -6.5 mmol/L Low -3.0-3.0 [facility] Comment on above: Performed By: #### E RTRP #### [facility] [address] [place], [place] [address] HCO3 (Bld) [Moles/Vol] 20.9 mmol/L Low 21.0-28.0 [facility] Comment on above: Performed By: #### E RTRP #### [place] [id number] PCO2 Arterial 53.5 mm Hg High 35.0-45.0 [facility] Comment on above: Performed By: #### E RTRP #### [facility] [address] [place], [place] [address] pH Arterial 7.216 Low 7.350-7.45 0 [facility] Comment on above: Performed By: #### E RTRP #### [facility] [address] [place], [place] [address] PO2 Arterial 75.9 mm Hg Low 83.0-108.0 [facility] Comment on above: Performed By: #### E RTRP #### [facility] [address] [place] [address] CPKon 12-09-2019 CK [Catalytic activity/Vol] 4221 U/L High 51-298 [facility] Comment on above: Performed By: #### U RIN2 #### [facility] [address] [place] [address] [address] ABD/PEL WO IVCONon 2019 CT ABD/PEL WO IVCON Final Report DATE OF EXAM: Dec 09 2019 9:15PM [facility] 0531 - CT ABD/PEL WO IVCON / [...] surface was not completely included for evaluation. Woodworker: [facility] Transcribe Date/Time: Dec 09 2019 9:18P Dictated by : JAYDEN MORENO MD This examination was interpreted and the report reviewed and electronically signed by: JAYDEN MORENO MD on Dec 09 2019 9:29PM EST Normal [facility] CT BRAIN WO IVCONon 12-09-19 CT BRAIN WO IVCON Final Report DATE OF EXAM: Dec 09 2019 9:09PM [facility] 0504 - CT BRAIN WO IVCON / [...] changes as above, unchanged from prior exam. Woodworker: [facility] Transcribe Date/Time: Dec 09 2019 9:16P Dictated by : DC ALCANTARA MD This examination was interpreted and the report reviewed and electronically signed by: DC ALCANTARA MD on Dec 09 2019 9:23PM EST Normal [facility] Comprehensive Metabolic Pane [place] 12-09-2019 Albumin [Mass/Vol] 4.2 g/dL Normal 3.9-4.9 [facility] Comment on above: Performed By: #### U RIN2 #### [place] [address] ALP [Catalytic activity/Vol] 144 U/L High 38-113 [facility] Comment on above: Performed By: #### U RIN2 #### [facility] [address] [place], [place] [address] ALT [Catalytic activity/Vol] 13 U/L Normal 10-54 [facility] Comment on above: Performed By: #### U RIN2 #### [facility] [address] [place], [place] [address] Anion gap [Moles/Vol] 19 mmol/L High 9-18 [facility] Comment on above: Performed By: #### U RIN2 #### [facility] [address] [place], [place] [address] AST [Catalytic activity/Vol] 52 U/L High 14-40 [facility] Comment on above: Performed By: #### U RIN2 #### [facility] [address] [place], [place] [address] Bilirubin [Mass/Vol] 0.7 mg/dL Normal 0.2-1.3 [facility] Comment on above: Performed By: #### U RIN2 #### [address] [address] Calcium [Mass/Vol] 8.8 mg/dL Normal 8.5-10.2 [facility] Comment on above: Performed By: #### U RIN2 #### [facility] [address] [place], [place] [address] Chloride [Moles/Vol] 99 mmol/L Normal 97-105 [facility] Comment on above: Performed By: #### U RIN2 #### [facility] [address] [place], [place] [address] CO2 Blood 21 mmol/L Low 22-30 [facility] Comment on above: Performed By: #### U RIN2 #### [facility] [address] [place], [place] [address] Creatinine [Mass/Vol] 3.28 mg/dL High 0.73-1.22 [facility] Comment on above: Performed By: #### U RIN2 #### [facility] [address] [place], [place] [address] Glucose [Mass/Vol] 127 mg/dL High 74-99 [facility] Comment on above: Result Comment: The [place] Diabetes [employer] (ADA) provides guidance for cutoff [...] Standards of Medical Care in Diabetes 2016; [place] [employer]. Diabetes Care. 2016;39(Suppl 1). Performed By: #### U RIN2 #### [facility] [address] [place], [place] [address] Potassium [Moles/Vol] 5.0 mmol/L Normal 3.7-5.1 [facility] Comment on above: Performed By: #### U RIN2 #### [facility] [address] [place], [place] [address] Protein [Mass/Vol] 7.3 g/dL Normal 6.3-8.0 [facility] Comment on above: Performed By: #### U RIN2 #### [place] [address] Sodium [Moles/Vol] 139 mmol/L Normal 136-144 [facility] Comment on above: Performed By: #### U RIN2 #### [place] [address] Urea nitrogen [Mass/Vol] 38 mg/dL High 9-24 [facility] Comment on above: Performed By: #### U RIN2 #### [place] [address] Cult and Smr Respiratoryon 0 12-09-2019 Cult and Smr Respiratory Test performed at [facility] Normal oropharyngeal brett present. No organisms seen Moderate Polymorphonuclear leukocytes Few Mononuclear cells Normal [facility] Comment on above: Performed By: #### T ROP #### [place] [address] Glucose Meteron 12-09-2019 Glucose [Mass/Vol] 135 mg/dL High 70-99 [facility] Comment on above: Performed By: #### E RTRP #### [place] [address] Hemogram/Diffon 12-09-2019 Abs Immature Grans 0.12 thou/cmm High 0.00-0.05 [facility] Comment on above: Performed By: #### E RTRP #### [place] [address] Abs Neut (ANC) 15.53 thou/cmm High 1.78-5.38 [facility] Comment on above: Performed By: #### E RTRP #### [place] [address] Abs. Baso 0.03 thou/cmm Normal 0.01-0.08 [facility] Comment on above: Result Comment: Smea r scanned; tech agrees with automated differential Performed By: #### E RTRP #### [place] [address] Abs. Dane 0.85 thou/cmm High 0.30-0.82 [facility] Comment on above: Performed By: #### E RTRP #### [facility] [address] [place], [place] [address] Basophils/100 WBC (Bld) 0.2 % Normal [facility] Comment on above: Performed By: #### E RTRP #### [facility] [address] [place], [place] [address] Eosinophils (Bld) [#/Vol] 0.00 thou/cmm Low 0.04-0.54 [facility] Comment on above: Performed By: #### E RTRP #### [facility] [address] [place], [place] [address] Eosinophils/100 WBC (Bld) 0.0 % Normal [facility] Comment on above: Performed By: #### E RTRP #### [facility] [address] [place], [place] [address] Immature Grans 0.70 % Normal [facility] Comment on above: Performed By: #### E RTRP #### [facility] [address] [place], [place] [address] Lymphocytes (Bld) [#/Vol] 0.87 thou/cmm Normal 0.84-2.85 [facility] Comment on above: Performed By: #### E RTRP #### [facility] [address] [place], [place] [address] Lymphocytes/100 WBC (Bld) 5.0 % Normal [facility] Comment on above: Performed By: #### E RTRP #### [facility] [address] [place], [place] [address] Monocytes/100 WBC (Bld) 4.9 % Normal [facility] Comment on above: Performed By: #### E RTRP #### [facility] [address] [place], [place] [address] Seg Neutrophil 89.2 % Normal [facility] Comment on above: Performed By: #### E RTRP #### [facility] [address] [place], [place] [address] Erythrocyte distribution width (RBC) [Ratio] 14.5 % High 11.6-14.4 [facility] Comment on above: Performed By: #### E RTRP #### [facility] [facility] [address] [place], [place] [address] Hematocrit (Bld) [Volume fraction] 31.4 % Low 40.1-51.0 [facility] Comment on above: Performed By: #### E RTRP #### [facility] [address] [place], [place] [address] Hemoglobin (Bld) [Mass/Vol] 9.6 g/dL Low 13.7-17.5 [facility] Comment on above: Performed By: #### E RTRP #### [facility] [address] [place], [place] [address] MCH (RBC) [Entitic mass] 27.4 pg Normal 25.7-32.2 [facility] Comment on above: Performed By: #### E RTRP #### [facility] [address] [place] [address] MCHC (RBC) [Mass/Vol] 30.6 % Low 32.3-36.5 [facility] Comment on above: Performed By: #### E RTRP #### [facility] [address] [place] [address] MCV (RBC) [Entitic vol] 89.5 fL Normal 83.2-95.6 [facility] Comment on above: Performed By: #### E RTRP #### [facility] [address] [place], [place] [address] Platelet mean volume (Bld) [Entitic vol] 10.3 fL Normal 8.7-12.0 [facility] Comment on above: Performed By: #### E RTRP #### [facility] [address] [place], [place] [address] Platelets (Bld) [#/Vol] 276 thou/cmm Normal 141-365 [facility] Comment on above: Performed By: #### E RTRP #### [facility] [address] [place], [place] [address] RBC (Bld) [#/Vol] 3.51 mil/cmm Low 4.63-6.08 [facility] Comment on above: Performed By: #### E RTRP #### [facility] [address] [place], [place] [address] RDW SD 46.0 fl High 36.1-45.8 [facility] Comment on above: Performed By: #### E RTRP #### [facility] [address] [place], [place] [address] WBC (Bld) [#/Vol] 17.41 thou/cmm High 4.23-9.07 [facility] Comment on above: Performed By: #### E RTRP #### [facility] [address] [place] [address] Lactic Acidon 12-09-2019 Lactate [Moles/Vol] 3.2 mmol/L High 0.5-2.2 [facility] Comment on above: Performed By: #### E RTRP #### [facility] [address] [place] [address] Lipase Bloodon 12-09-2019 Lipase Blood 7 U/L Low 16-61 [facility] Comment on above: Performed By: #### U RIN2 #### [facility] [address] [place], [place] [address] Magnesium Bloodon 12-09-2019 Magnesium [Mass/Vol] 2.2 mg/dL Normal 1.7-2.3 [facility] Comment on above: Performed By: #### U RIN2 #### [facility] [address] [place] [address] Protimeon 12-09-2019 INR Coag (PPP) [Relative time] 0.98 {INR} Normal 0.90-1.30 [facility] Comment on above: Result Comment: Michelle min K Antagonist (VKA) Therapeutic Range: INR 2 to 3 (Target INR of 2.5) Note: For patients treated with VKA drugs, such as warfarin, the [place] [employer] 2012 Guideline recommends [...] Chest 2012; 141:7S-47S Hayder CASTRO et al. [facility] 2017; 70: 252-289 Performed By: #### E RTRP #### [address] [address] PT Coag (PPP) [Time] 10.6 s Normal 9.7-13.0 [facility] Comment on above: Performed By: #### E RTRP #### [address] [address] Rapid, COVID 19on 12-09-2019 Rapid, COVID 19 Positive Abnormal Negative [facility] Comment on above: Result Comment: This test has been authorized by the FDA under an Emergency Use Authorization (EUA). Performed By: #### E RTRP #### [address] [address] Troponin T, High Sens.on Troponin T, High Sens. 30 ng/L High 0-11 [facility] Comment on above: Result Comment: Susan ents [...] result. Performed By: #### U RIN2 #### [address] [address] Troponin T, High Sens. 29 ng/L High 0-11 [facility] Comment on above: Result Comment: Susan ents [...] By: #### E RTRP #### [facility] [address] [place] [address] Urinalysis Routineon 020 Bacteria LM.HPF (Urine sed) [#/Area] NONE Normal None [facility] Comment on above: Performed By: #### E RTRP #### [facility] [address] [place] [address] Ep Cells Urine 0.1 /hpf Normal 0.0-5.0 [facility] Comment on above: Performed By: #### E RTRP #### [facility] [address] [place] [address] Hyaline Cast 0.3 /lpf Normal 0.0-1.0 [facility] Comment on above: Performed By: #### E RTRP #### [facility] [address] [place] [address] RBC LM.HPF (Urine sed) [#/Area] 1.8 /[HPF] Normal 0.0-5.0 [facility] Comment on above: Performed By: #### E RTRP #### [place] [address] WBC LM.HPF (Urine sed) [#/Area] 0.1 /[HPF] Normal 0.0-5.0 [facility] Comment on above: Performed By: #### E RTRP #### [facility] [address] [place] [address] Appearance (U) CLEAR Normal [facility] Comment on above: Performed By: #### E RTRP #### [facility] [address] [place] [address] Bilirubin (U) [Mass/Vol] Negative Normal Negative [facility] Comment on above: Performed By: #### E RTRP #### [facility] [address] [place] [address] Color (U) YELLOW Normal [facility] Comment on above: Performed By: #### E RTRP #### [facility] [address] [place] [address] Glucose Ql (U) Negative Normal Negative [facility] Comment on above: Performed By: #### E RTRP #### [facility] [address] [place], [place] [address] Hemoglobin,Urine Negative Normal Negative [facility] Comment on above: Performed By: #### E RTRP #### [facility] [address] [place] [address] Ketone Urine Negative Normal Negative [facility] Comment on above: Performed By: #### E RTRP #### [facility] [address] [place] [address] Leukocytes Esterase Negative Normal Negative [facility] Comment on above: Performed By: #### E RTRP #### [place] [address] Nitrites Urine Negative Normal Negative [facility] Comment on above: Performed By: #### E RTRP #### [facility] [address] [place] [address] pH (U) 6.0 [pH] Normal 5.0-8.0 [facility] Comment on above: Performed By: #### E RTRP #### [facility] [address] [place] [address] Protein (U) [Mass/Vol] Negative Normal Negative [facility] Comment on above: Performed By: #### E RTRP #### [place] [address] Specific [place], Ur 1.004 Normal 1.005-1 .03 0 [facility] Comment on above: Performed By: #### E RTRP #### [facility] [address] [place] [address] Urobilinogen,Ur 0.2 EU/dL Normal 0.2-1.0 [facility] Comment on above: Performed By: #### E RTRP #### [place] [address] Urine Drug Screenon 12-09-19 20 Urine Alcohol <11 Normal 0-11 [facility] Comment on above: Performed By: #### U RIN2 #### [facility] [address] [place], [place] [address] Urine Amphetamine Negative Normal NEGATIVE [facility] Comment on above: Performed By: #### U RIN2 #### [facility] [address] [place], [place] [address] Urine Barbiturates Negative Normal NEGATIVE [facility] Comment on above: Performed By: #### U RIN2 #### [facility] [address] [place], [place] [address] Urine Benzodiazepine Negative Normal NEGATIVE [facility] Comment on above: Performed By: #### U RIN2 #### [facility] [address] [place], [place] [address] Urine Cocaine Metab Negative Normal NEGATIVE [facility] Comment on above: Performed By: #### U RIN2 #### [facility] [address] [place], [place] [address] Urine Opiates Negative Normal NEGATIVE [facility] Comment on above: Performed By: #### U RIN2 #### [facility] [address] [place], [place] [address] Urine Oxycodone Negative Normal NEGATIVE [facility] Comment on above: Performed By: #### U RIN2 #### [facility] [address] [place], [place] [address] Urine PCP Negative Normal NEGATIVE [facility] Comment on above: Result Comment: Test Cutoff [...] the same specimen through the laboratory at ([phone]) if contacted within 48 hours of initial 1. Substance Abuse and Mental Health Services Administration (2012). Clinical Drug Testing in Primary Care Technical Assistance Publication Series 32. Department of Health and Human Services, [place], p.10. Performed By: #### U RIN2 #### [facility] [address] [place] [address] Urine THC Negative Normal NEGATIVE [facility] Comment on above: Performed By: #### U RIN2 #### [facility] [address] [place] [address] Venous Blood Gason 0 Base Excess -5.6 mEq/L Low -3.0-3.0 [facility] Comment on above: Performed By: #### E RTRP #### [facility] [address] [place] [address] HCO3 (Bld) [Moles/Vol] 20.8 mmol/L Low 21.0-30.0 [facility] Comment on above: Performed By: #### E RTRP #### [facility] [address] [place] [address] PCO2 Venous 48.1 mm Hg Normal 40.6-60.0 [facility] Comment on above: Performed By: #### E RTRP #### [facility] [address] [place] [address] pH Venous 7.260 Low 7.320-7.43 0 [facility] Comment on above: Performed By: #### E RTRP #### [facility] [address] [place] [address] PO2 Venous 44.6 mm Hg High 15.9-37.5 [facility] Comment on above: Performed By: #### E RTRP #### [facility] [address] [place] [address] XR CHEST 1V FRONTALon 2019 XR CHEST [...] diffuse pulmonary edema. Support lines as discussed. Woodworker: SHIRA Transcribe Date/Time: Dec 09 2019 8:50P Dictated by : SAKSHI DUARTE MD This examination was interpreted and the report reviewed and electronically signed by: SAKSHI DUARTE MD on Dec 09 2019 8:51PM EST Normal [facility] XR CHEST 1V FRONTAL PORTon 0 12-09-2019 [...] . IMPRESSION: No acute process is seen. Woodworker: SHIRA Transcribe Date/Time: Dec 09 2019 1:57P Dictated by : SAKSHI DUARTE MD This examination was interpreted and the report reviewed and electronically signed by: SAKSHI DUARTE MD on Dec 09 2019 1:58PM EST Normal [facility] Daily Progress Note-Cardiolo gyon 10-12-2019 Daily Progress Note-Cardiology Service: Cardiology Subjective Data: NATALIE GERBER is a 59 year old Male who is Hospital Day # 5. Additional Information: He feels okay this morning. His chest pain has resolved. Objective Data: Objective Information: T PRBPSpO2 Value36.51180995/6695% Date/Time10/11 4: 4: 4: 4: 4:00 Range(35.7C - 36.6C ) (63 [...] Left Heart Cath Coronary angio w/wo ventriculography (LHC)-06958; Moderate Sedation Services initial 15 minutes patient >5 years-25909; Moderate Sedation Services 1st additional 15 minutes patient >5 years-56396; Moderate Sedation Services 2nd additional 15 minutes patient >5 years-9[address]32; Moderate Sedation Services 3rd additional 15 minutes patient >5 years-55635; Moderate Sedation Services 4th additional 15 minutes patient >5 years-43387; Moderate Sedation Services 5th additional 15 minutes patient >5 years-[address]; Complicated/Unusual Procedure-MOD22 ICD 10 Codes: I20.0-Unstable angina [id number] Servando Hernández MD Performing Physician cc Report to: [id number] Amrit Sullivan MD, [facility] cc Report to: x cc Report to: [...] Updated: 12-Oct-2019 07:39 by Amrit Sullivan) Normal [facility] Daily Progress Note-General Internal Medicineon 10-11-2019 Daily Progress Note-General Internal Medicine Service: General Internal Medicine Subjective Data: NATALIE GERBER is a 59 year old Male who is Hospital Day # 4. Objective Data: Objective Information: T PRBPSpO2 Value35.47033011/8194% Date/Time10/10 12: 12: 12: 12: 12:00 Range(35.7C - 36.4C ) (63 - 79 ) (17 - 20 ) (120 - 154 )/ (56 - 81 ) (94% - 97% ) Pain reported at 10/10 10:42: 4 = Moderate T PRBPSpO2 Value35.19108387/8194% Date/Time10/10 12: 12: 12: 12: 12:00 Range(35.7C [...] Adults: >1 Troponin I, Serum Trending View [id number] 19:53:00 08-Oct-2019 16:45:00 Troponin I, Serum<0.02 <0.02 [...] old male with lengthy medical history including [place], CVA, PE, uncontrolled hypertension, obesity; presents to ER with reported chest pain. Review of record patient with cardiac catheterization at [facility] in November 2018, no stents placed. [...] significant deconditioned and will probably require further jail. Plan for Impression 9: Patient fully evaluated [...] Updated: 11-Oct-2019 17:12 by Chuy Mc) Normal [facility] Left Heart Catheterizationon 10-11-2019 Left Heart Catheterization [facility], Net Making Supervisor, [address], [place], [place] [address] Cardiovascular Catheterization Report Patient Name: [place]ALIE [place] [id number] [facility] GERBER Physician: Study Date: 10/11/2019 Verifying Physician: [id number] Servando Hernández MD MRN/PID: [id number] Ball Points Inspector: Accession/Order#: [id number] Fellow: Date of : 1960 Fellow: Gender: M Referring Physician: Amrit Sullivan MD, [facility] Admit Date: Referring Physician: rahul Surgeon: Referring [...] was obtained. Patient was brought to the Net Making Supervisor and prepped and draped in usual fashion. [...] in the right femoral artery. Using 5 Azerbaijani JL4 and JR4 catheters, coronary angiography and [...] Name Duty + +--- + Servando Hernández MD, MD 1 + +--- + Margarette Schwarz RN [...] +------ + 10/11/2019 2:00:54 PM {Diag Wire} [facility] Inire J Wire 0.035" 210 cm - Qty: 1 Each Part #: [id number] + +------ + 10/11/2019 2:00:59 PM {6 Azerbaijani Sheaths} Terumo 6F cherry gutiérrez (C-3726) - Qty: 1 Each Part #: [id number] + +------ + 10/11/2019 2:15:48 PM {Misc} [employer] Femoral Angio Pack 0 - Qty: 1 Each Part #: [id number] + +------ + 10/11/2019 2:15:51 PM {Misc} [facility] Adult Nasal O2 Cannula w/ capnography - Qty: 1 Each Part #: [id number] + +------ + 10/11/2019 2:32:05 PM {5 Azerbaijani Sheaths} Nataliia Joshinacle 5F sheath 10 cm ( D-5836) - Qty: 1 Each Part #: [id number] + +------ + 10/11/2019 2:32:10 PM {Misc} [employer] Micropuncture kit 4 FR - Qty: 1 Each Part #: [id number] + +------ + 10/11/2019 2:46:35 PM {5F Expo} Scimed EXPO 5F FL4 - Qty: 1 Each Part #: [id number] + +------ + 10/11/2019 2:46:47 PM {5F Expo} Scimed EXPO 5F FR4 - Qty: 1 Each Part #: [id number] + +------ + Fluoroscopy Time: + + [...] Left Heart Cath Coronary angio w/wo ventriculography (LHC)-60819; Moderate Sedation Services initial 15 minutes patient >5 years-16304; Moderate Sedation Services 1st additional 15 minutes patient >5 years-26865; Moderate Sedation Services 2nd additional 15 minutes patient >5 years-91115; Moderate Sedation Services 3rd additional 15 minutes patient >5 years-06089; Moderate Sedation Services 4th additional 15 minutes patient >5 years-20632; Moderate Sedation Services 5th additional 15 minutes patient >5 years-78052; Complicated/Unusual Procedure-MOD22 ICD 10 Codes: I20.0-Unstable angina [address] Servando Hernández MD Performing Physician cc Report to: [id number] Amrit Sullivan MD, [facility] cc Report to: x cc Report to: x Final Normal [facility] CBCon 10-10-2019 Erythrocyte distribution width (RBC) [Ratio] 14.9 % High 11.5 - 14.5 [facility] Comment on above: Order Comment: pt re fused morning labs Performed By: #### C BC ####[facility] [place] [address] Hematocrit (Bld) [Volume fraction] 37.8 % Low 41.0 - 52.0 [facility] Comment on above: Order Comment: pt re fused morning labs Performed By: #### C BC ####[facility] [place] [address] Hemoglobin (Bld) [Mass/Vol] 11.2 g/dL Low 13.5 - 17.5 [facility] Comment on above: Order Comment: pt re fused morning labs Performed By: #### C BC ####[facility] [place] [address] MCHC (RBC) [Mass/Vol] 29.6 g/dL Low 32.0 - 36.0 [facility] Comment on above: Order Comment: pt re fused morning labs Performed By: #### C BC ####[facility] [place] [address] MCV (RBC) [Entitic vol] 92 fL Normal 80 - 100 [facility] Comment on above: Order Comment: pt re fused morning labs Performed By: #### C BC ####[facility] [place] [address] Nucleated RBC/100 WBC (Bld) [Ratio] 0.0 /100 WBC Normal 0.0 - 0.0 [facility] Comment on above: Order Comment: pt re fused morning labs Performed By: #### C BC ####[facility] [place] [address] Platelets (Bld) [#/Vol] 229 10*3/uL Normal 150 - 450 [facility] Comment on above: Order Comment: pt re fused morning labs Performed By: #### C BC ####[facility] [place] [address] RBC (Bld) [#/Vol] 4.13 x10E12/L Low 4.50 - 5.90 [facility] Comment on above: Order Comment: pt re fused morning labs Performed By: #### C BC ####[facility] [place] [address] WBC (Bld) [#/Vol] 8.2 10*3/uL Normal 4.4 - 11.3 [facility] Comment on above: Order Comment: pt re fused morning labs Performed By: #### C BC ####[address] [address] COMPREHENSIVE PANELon 2019 Albumin [Mass/Vol] 3.8 g/dL Normal 3.4 - 5.0 [facility] Comment on above: Order Comment: pt re fused morning labs Performed By: #### C MP ####[address] [address] ALP [Catalytic activity/Vol] 145 U/L High 33 - 120 [facility] Comment on above: Order Comment: pt re fused morning labs Performed By: #### C MP ####[facility] [place] [address] ALT [Catalytic activity/Vol] 8 U/L Low 10 - 52 [facility] Comment on above: Order Comment: pt re fused morning labs Result Comment: Susan ents treated with Sulfasalazine may generate falsely decreased results for ALT. Performed By: #### C MP ####[facility] [place] [address] Anion gap [Moles/Vol] 7 mmol/L Low 10 - 20 [facility] Comment on above: Order Comment: pt re fused morning labs Performed By: #### C MP ####[facility] [place] [address] AST [Catalytic activity/Vol] 12 U/L Normal 9 - 39 [facility] Comment on above: Order Comment: pt re fused morning labs Performed By: #### C MP ####[place] [id number] [facility] [place] [address] Bilirubin [Mass/Vol] 0.4 mg/dL Normal 0.0 - 1.2 [facility] Comment on above: Order Comment: pt re fused morning labs Performed By: #### C MP ####[address] [place] [address] Calcium [Mass/Vol] 8.8 mg/dL Normal 8.6 - 10.3 [facility] Comment on above: Order Comment: pt re fused morning labs Performed By: #### C MP ####[address] [place] [address] Chloride [Moles/Vol] 108 mmol/L High 98 - 107 [facility] Comment on above: Order Comment: pt re fused morning labs Performed By: #### C MP ####[address] [place] [address] Creatinine [Mass/Vol] 0.62 mg/dL Normal 0.50 - 1.30 [facility] Comment on above: Order Comment: pt re fused morning labs Performed By: #### C MP ####[address] [place] [address] GFR- AM. >60 Normal >60 [facility] Comment on above: Order Comment: pt re fused morning labs Result Comment: CALC ULATIONS OF ESTIMATED GFR ARE PERFORMED USING THE MDRD STUDY EQUATION FOR THE IDMS-TRACEABLE CREATININE METHODS. CLIN CHEM 2007;53:766-72 Performed By: #### C MP ####[address] [place] [address] GFR-NON AM. >60 Normal >60 [facility] Comment on above: Order Comment: pt re fused morning labs Performed By: #### C MP ####[address] [place] [address] Glucose [Mass/Vol] 133 mg/dL High 74 - 99 [facility] Comment on above: Order Comment: pt re fused morning labs Performed By: #### C MP ####[address] [place] [address] HCO3 (Bld) [Moles/Vol] 27 mmol/L Normal 21 - 32 [facility] Comment on above: Order Comment: pt re fused morning labs Performed By: #### C MP ####[facility] [place] [address] Potassium [Moles/Vol] 4.2 mmol/L Normal 3.5 - 5.3 [facility] Comment on above: Order Comment: pt re fused morning labs Performed By: #### C MP ####[facility] [place] [address] Protein [Mass/Vol] 6.6 g/dL Normal 6.4 - 8.2 [facility] Comment on above: Order Comment: pt re fused morning labs Performed By: #### C MP ####[address] [address] Sodium [Moles/Vol] 138 mmol/L Normal 136 - 145 [facility] Comment on above: Order Comment: pt re fused morning labs Performed By: #### C MP ####[address] [address] Urea nitrogen [Mass/Vol] 10 mg/dL Normal 6 - 23 [facility] Comment on above: Order Comment: pt re fused morning labs Performed By: #### C MP ####[address] [address] Consult-Cardiologyon 020 Consult-Cardiology Service: Service: Cardiology Consult: [...] is significant that he presented 2008 to [facility] with a myocardial infarction. He had cardiac catheterization. It was recommended that he have medical therapy. He underwent cardiac catheterization here at [facility] in 2014. At that time he was [...] Fish: Hives/Urticaria Objective: Objective Information: T PRBPSpO2 Value36.39232791/7096% Date/Time10/09 8: 8: 8: 8: 8:00 Range(35.8C [...] 240 All ranges are [facility] on [facility] HDL Cholesterol, Serum 31.8 . AGE VERY [...] 89 ---- Troponin I, Serum Trending View [id number] 19:53:00 08-Oct-2019 16:45:00 08-Oct-2019 13:56:00 Troponin I, [...] 1.3 m/s (0.6-0.9m/s) PV Max P.0 mmHg [id number] Amrit Sullivan MD, [facility] Electronically signed on 10/10/2019 at 8:32:43 AM [...] Last Updated: 10-Oct-2019 08:56 by Amrit Sullivan) [facility] Daily Progress Note-General Internal Medicineon 10-10-2019 Daily Progress Note-General Internal Medicine Service: General Internal Medicine Subjective Data: NATALIE GERBER is a 59 year old Male who is Hospital Day # 3. Objective Data: Objective Information: T PRBPSpO2 Value35.24220800/7997% Date/Time10/10 11: 12: 12: 12: 12:00 Range(35.6C - 36.9C ) (67 - 91 ) (18 - 20 ) (95 - 178 )/ (57 - 93 ) (96% - 98% ) Highest temp of 36.9 C was recorded at 10/09 0:00 Pain reported at 10/09 15:06: 8 = Severe T PRBPSpO2 Value35.10553390/7997% Date/Time10/10 11: 12: 12: 12: 12:00 Range(35.6C [...] All ranges are based on fasting [facility] HDL Cholesterol, Serum 31.8 . AGE VERY [...] Adults: >1 Troponin I, Serum Trending View [id number] 19:53:00 08-Oct-2019 16:45:00 Troponin I, Serum<0.02 <0.02 Coronavirus 2019 by PCR 08-Oct-2019 17:20:00 ResultValue Lab Comment: Called- RB to [place] [address], 10/08/2019 18:51 Fluid Source Nasal, Nasopharyngeal Coronavirus [...] old male with lengthy medical history including [place], CVA, PE, uncontrolled hypertension, obesity; presents to ER with reported chest pain. Review of record patient with cardiac catheterization at [facility] in November 2018, no stents placed. [...] significant deconditioned and will probably require further jail. Plan for Impression 9: Patient fully evaluated on October 09. Still having intermittent chest pain despite medication adjustments. Cardiac catheterization is planned for tomorrow. Electronic Signatures: Chuy Mc) (Signed 10-Oct-2019 15:55) Authored: Service, Subjective Data, Objective Data, Assessment and Plan, Signature/Cosignature/Attest ation Last Updated: 10-Oct-2019 15:55 by Chuy Mc) Normal [facility] Daily Progress Note-General Internal Medicineon 10-09-2019 Daily Progress Note-General Internal Medicine Service: General Internal Medicine Subjective Data: NATALIE GERBER is a 59 year old Male who is Hospital Day # 2. Objective Data: Objective Information: T PRBPSpO2 Value35.06435304/8997% Date/Time10/08 16: 16: 16: 16: 16:00 Range(35.8C - 36.7C ) (86 - 136 ) (18 - 21 ) (111 - 225 )/ (56 - 89 ) (95% - 98% ) Pain reported at 10/08 14:05: 7 = Severe T PRBPSpO2 Value35.12575383/8997% Date/Time10/08 16: 16:005 16:005 16:005 16:00 Range(35.8C - 36.7C ) [...] All ranges are based on fasting [facility] HDL Cholesterol, Serum 31.8 . AGE VERY [...] Adults: >1 Troponin I, Serum Trending View [id number] 19:53:00 08-Oct-2019 16:45:00 Troponin I, Serum<0.02 <0.02 Coronavirus 2019 by PCR 08-Oct-2019 17:20:00 ResultValue Lab Comment: Called[facility], 10/08/2019 18:51 Fluid Source Nasal, Nasopharyngeal Coronavirus [...] old male with lengthy medical history including IL, CVA, PE, uncontrolled hypertension, obesity; presents to ER with reported chest pain. Review of record patient with cardiac catheterization at [facility] in November 2018, no stents placed. [...] significant deconditioned and will probably require further jail. Electronic Signatures: Chuy Mc) (Signed 09-Oct-2019 17:07) Authored: Service, Subjective Data, Objective Data, Assessment and Plan, Signature/Cosignature/Attest ation Last Updated: 09-Oct-2019 17:07 by Chuy Mc) [facility] Discharge Planning Ause7ns 0 10-09-2019 Discharge Planning Note2 Discharge Planning: Needs Prior to Discharge (ex. Home Care Orders, IV/O2 prescriptions) none at this time Discharge Barriers (ex. Avoidable days, wait guardianship, pt refuse leave)pt states he has no more skilled days recent discharge from [facility] in [place] Anticipated Discharge [id number] Discharge Planning TRANSITIONAL PROFESSIONAL ARCHITECT 1005 I met with the pt, introduced myself, and explained my role. Reviewed demographics, phone number, insurance, and RX coverage. Pt lives with his daughter and states his is in a half-way. Pt denies the uses rollator and cane. Pt is not able to drive that his daughter takes him as needed where he needs to go. Pt not utilizing any [facility] agencies. Pt is able to obtain his home meds without difficulty and denies any questions. Pt states his daughter will take him home when discharged. Pt will make his own f/u appointment. Pt feels he will have the help he needs after discharge at home. Denies home oxygen. States he was just discharged from [facility] in [place] and had to leave d/t insurance wouldn't pay anymore. Pt states he needs to have back surgery but d/t the covid restriction with elective surgery it was placed on hold. Jesi MAJOR, RN, [facility] 10/12/2019 1048 PCN: Met with patient to discuss SNF preferences. His preferences are 1. [facility] 2. [facility] 3. [facility]. Requested TOGGLE PRESS FOLDER AND FEEDER to make referrals in allscripts. Waiting on acceptance. MONI Galvan update: Per response in allscripts, [facility] is reviewing because patient was issued a 30 day notice for non-payment from their [facility] facility. Met with patient to get other preferences. [employer] FOL[employer] FEEDER sending referrals to: 1. [facility] 2. [facility] 3. [facility] Waiting on responses. MONI Galvan 10/12/19 1100 [employer]LE PRESS FOLDER [employer] FEEDER: sent referral to [facility], [facility], and [facility]. [facility] Navigation Specialist 1320: sent referral to [facility] in [place], [facility], [place] and [place] 10/12/2019 SOCIAL WORK NOTE SW met with pt appears to be a difficult placement. Pt came to hospital from his dtr's home, tells sw that he had to come in as his dtr works and he has had to take care of himself and he has much back pain which cause his chest pain. Prior to going to dtr's, pt was at a half-way called [facility] while waiting for back surgery at [facility]. The surgery was cancelled due to Covid, so pt stayed at [facility] over the skilled time and his [employer] declined payment for two weeks as the half-way only had skilled auth and the ecf did not tell pt. Pt has a bill there which he can not pay so cannot return there. Pt could go to dtrs but feels he will return due to the same situation of having to do everything for himself. GRISEL explains that many facilities have declined, possible due to non payment at [facility]. Sw explained he may need to go to anywhere we can find a bed. Pt's is at [facility], , when asked, pt said he tried [...] to follow to assist in placment. Rose Mariedank Nelson FREEZER UNLOADER, BABYSITTER-S 10/12/2019 1600 PCN: Per SW, patient's is at [facility]. Referral sent in allscripts. Waiting on response. MONI Galvan update: [facility] can accept. They are starting precert. [facility] has not waived prior authorization. MONI Galvan 844 PCN: Precert expedited to [facility]. MONI Galvan 10/13/19 1529 [employer]LE PRESS FOLDER [employer] FEEDER: [facility], [place] has precert. Alcon Velázquez Specialist 10/13/2019 1554 PCN: DC written and 1730 transport scheduled for patient to go to [facility]. Facility notified by [employer] F[employer] FEEDER in allscripts MONI Galvan 10/13/19 1609 [employer] PR[employer] F[employer]DER [employer] FEEDER: 7000 is complete and gold form is attached. Alcon Velázquez Specialist Assessment: Discharge Planning Assessment [id number] Primary Contact Name and Numberjamel [phone](1) Stated Reason for Admissionchest pain(1) Arrived [place] (1) Lives Withadult child(ce); daughter in daughter's home(2) Living Arrangementshouse(2) Resource/Environmental Concernsnone(1) Anticipated Transition [place](1) Services Anticipated at Transitionnon(1) Discharge Documentation: Discharge/Transfer Date/[id number]-1740 18:05 Discharge Modewheelchair Discharged Accompanied ByPhysician tub attendant Transportation Methodambulance Phsysician's ambulette attendant Valuables/Medications/Belong ings Returnedyes Belongings Commentsent with patient [facility] Electronic Signatures: Estrella Peoples (PCN) (Signed 13-Oct-2019 [...] "OT Evaluation v2-occupational therapy" 09-Oct-2019 13:30 [facility] Discharge [id number] Discharge Profile2 Discharge Orders: Anticipated Discharge Date: Anticipated Discharge [id number] Problem List: Additional Dx: Chest pain: Catalog [...] disease: Catalog Name: Atherosclerotic heart disease of [place] coronary artery without angina pectoris Diverticulitis: Catalog [...] Medical History Mild CAD, but no h/o [place]: Past Medical History Diastolic CHF: Past Medical [...] flu shot 2016: Immunizations Contact Information: Contacts, [facility] Providers: Provider RoleProvider Name Amrit Serrano Benson [...] % at Discharge: Left Ventricular Ejection Fraction %[facility] Heart Failure Appointment: Follow up phone call [...] Therapy Orders: Occupational Therapy OrdersEval and Treat ([facility]) Physical Therapy OrdersEval and Treat ([facility]) Provider Follow Up: [...] Hearingadequate Speechclear Elimination: Bladdercontinent Bowelcontinent Last Bowel [id number] Toiletingindependent Safety: Siderailsyes Siderails Number/Reasonx2 for mobility Restraintsno Sitterno Fall Riskweakness, severe sciatica Medication/Hygiene/Mobility: Medication Administrationassist Bathingindependent Dressingsupervision only Bed Mobilityassist Wheelchairindependent Transferssupervision only Ambulationpersons/equipment Skin comment: Skin commentright groin cath dressing dry and intact Electronic Signatures: Joan Myers (RN) (Signed 13-Oct-2019 16:45) Authored: Gold Form - Nursing Summary Chuy Mc) (Signed 12-Oct-2019 09:06) Authored: Discharge Orders, Heart Failure, Gold Form Orders, Provider FINAL REVIEW of Orders, Gold Form - Wafer Fab Operator Summary Last Updated: 13-Oct-2019 16:45 by Joan Myers (PIA) [facility] HEMOGLOBIN A1Con 10-09-2019 HbA1c (Bld) [Mass fraction] 6.2 % [facility] Comment on above: Result Comment: Diag nosis of Diabetes-Adults Non-Diabetic: < or = 5.6% Increased risk for developing diabetes: 5.7-6.4% Diagnostic of diabetes: > or = 6.5% . Monitoring of Diabetes Age (y) Therapeutic Goal (%) Adults: >18 <7.0 Pediatrics: 13-18 <7.5 7-12 <8.0 0- 6 7.5-8.5 [place] [employer]. Diabetes Care 33(S1), Jun 2009. Performed By: #### H BA1E ####[facility] [place] [address] HbA1c (Bld) [Mass fraction] 131 MG/DL [facility] Comment on above: Performed By: #### H BA1E ####[facility] [place] [address] LIPID PANEL (CORONARY RISK 2 )on 10-09-2019 Cholesterol [Mass/Vol] 130 mg/dL Normal 0 - 199 [facility] Comment on above: Result Comment: . [...] Metamizole dosing. Performed By: #### L IPID ####[facility] [place] [address] Cholesterol in HDL [Mass/Vol] 31.8 mg/dL Abnormal [facility] Comment on above: Result Comment: . AGE VERY LOW LOW NORMAL HIGH 0-19 Y < 35 < 40 40-45 ---- 20-24 Y ---- < 40 >45 ---- >24 Y ---- < 40 40-60 >60 . Performed By: #### L IPID ####[facility] [place] [address] Cholesterol in LDL [Mass/Vol] 73 mg/dL Normal 0 - 99 [facility] Comment on above: Result Comment: . NEAR BORD AGE DESIRABLE OPTIMAL HIGH HIGH VERY HIGH 0-19 Y 0 - 109 --- 110-129 >/= 130 ---- 20-24 Y 0 - 119 --- 120-159 >/= 160 ---- >24 Y 0 - 99 100-129 130-159 160-189 >/=190 . Performed By: #### L IPID ####[facility] [place] [address] Cholesterol in VLDL [Mass/Vol] 25 mg/dL Normal 0 - 40 [facility] Comment on above: Performed By: #### L IPID ####[facility] [place] [address] Cholesterol.total/Cho lesterol in HDL [Mass ratio] 4.1 {ratio} [facility] Comment on above: Result Comment: REF VALUES DESIRABLE < 3.4 HIGH RISK > 5.0 Performed By: #### L IPID ####[facility] [place] [address] Triglyceride [Mass/Vol] 124 mg/dL Normal 0 - 149 [facility] Comment on above: Result Comment: . [...] Metamizole dosing. Performed By: #### L IPID ####[facility] [place] [address] Admission Risk Screen - Adul ton 10-08-2019 [...] risk with low risk for associated injury [place] Safety InterventionsWDL *orient to call system *instruct [...] require a speech/language consult at this [facility]- Basic Mobility/Daily Activity: Patient baseline bedboundno Turning [...] hospital roomnone Climbing 3-5 steps with railingtotal AM-[facility] Basic Mobility- Total Score20 Putting on and taking off regular lower body clothingnone Bathing (including washing, rinsing, drying)none Putting on and taking off regular upper body clothingnone Toileting, which includes using toilet, bedpan or urinalnone Taking care of personal grooming such as brushing teethnone Eating Mealsnone [facility] Daily Activity- Total Score24 Learning Assessment (Patient): Patient is Able to be Assessed for Learningyes Factors Influencing Readiness to Learninterest in learning Factors that Impact Ability to Learnvisual problems Devices/Methods Used to Communicateglasses Learning Preferencesverbal instruction Cultural Considerationsnone Developmental Considerationsnone Jainism Considerationsnone Learning Assessment (Other Learner): Other learner [...] Spiritual Screen: Are there any cultural, spiritual, synagogue practices/values/needs that are important for us to knowno Do you want a visit/item from Pastoral Careno Would you like your Crankshaft Balancer/Chief Deputy Coroner notifiedno CAGE: Is this an injured patient at a Trauma Center ([facility]/[place]): no (2) Vaccinations: Vaccination - Influenza Vaccination [...] Last Updated: 08-Oct-2019 20:52 by Akanksha Garzon (CINDY) References: 1. Data Referenced From "Triage - ED" 08-Oct-2019 13:41 2. Data Referenced From Risk Screen - Adult Emergency" 08-Oct-2019 16:41 [facility] BASIC METABOLIC PANELon 05-0 Anion gap [Moles/Vol] 13 mmol/L Normal 10 - 20 [facility] Comment on above: Performed By: #### B MP ####[address] [address] Calcium [Mass/Vol] 9.7 mg/dL Normal 8.6 - 10.3 [facility] Comment on above: Performed By: #### B MP ####[place] [id number] [place] [address] Chloride [Moles/Vol] 101 mmol/L Normal 98 - 107 [facility] Comment on above: Performed By: #### B MP ####[address] [address] Creatinine [Mass/Vol] 0.64 mg/dL Normal 0.50 - 1.30 [facility] Comment on above: Performed By: #### B MP ####[address] [address] GFR- AM. >60 Normal >60 [facility] Comment on above: Result Comment: CALC ULATIONS OF ESTIMATED GFR ARE PERFORMED USING THE MDRD STUDY EQUATION FOR THE IDMS-TRACEABLE CREATININE METHODS. CLIN CHEM 2007;53:766-72 Performed By: #### B MP ####[address] [address] GFR-NON AM. >60 Normal >60 [facility] Comment on above: Performed By: #### B MP ####[address] [address] Glucose [Mass/Vol] 112 mg/dL High 74 - 99 [facility] Comment on above: Performed By: #### B MP ####[address] [address] HCO3 (Bld) [Moles/Vol] 26 mmol/L Normal 21 - 32 [facility] Comment on above: Performed By: #### B MP ####[address] [address] Potassium [Moles/Vol] 4.1 mmol/L Normal 3.5 - 5.3 [facility] Comment on above: Result Comment: MILD HEMOLYSIS DETECTED. The result may be falsely elevated due to hemolysis or other interferents. Clinical correlation is recommended. Repeat testing may be considered. Performed By: #### B MP ####[address] [place] [address] Sodium [Moles/Vol] 136 mmol/L Normal 136 - 145 [facility] Comment on above: Performed By: #### B MP ####[facility] [place] [address] Urea nitrogen [Mass/Vol] 15 mg/dL Normal 6 - 23 [facility] Comment on above: Performed By: #### B MP ####[address] [address] BNPon 10-08-2019 Natriuretic peptide B (Bld) [Mass/Vol] 19 pg/mL Normal 0 - 99 [facility] Comment on above: Result Comment: . <1 00 pg/mL - Heart failure unlikely 100-299 pg/mL - Intermediate probability of acute heart . failure exacerbation. Correlate with clinical . context and patient history. >=300 pg/mL - Heart Failure likely. Correlate with clinical . context and patient history. BNP testing is performed using different testing methodology at [facility] than at other [facility]. Direct result comparisons should only be made within the same method. Performed By: #### B NP2 ####[place] [id number] Natriuretic peptide B (Bld) [Mass/Vol] Canceled [facility] Comment on above: Order Comment: TEST [...] performed using different testing methodology at [facility] than at other [facility]. Direct result comparisons should only be made within the same method. Performed By: #### B NP2 ####[address] [address] CBC AND DIFFERENTIALon 10-07 % AUTOMATED IMMATURE GRAN 0.7 % Normal 0.0 - 0.9 [facility] Comment on above: Result Comment: Lina ture Granulocyte Count (IG) includes promyelocytes, myelocytes and metamyelocytes but does not include bands. Percent differential counts (%) should be interpreted in the context of the absolute cell counts (cells/L). Performed By: #### C BCDF ####[address] [address] Basophils (Bld) [#/Vol] 0.05 10*3/uL Normal 0.00 - 0.10 [facility] Comment on above: Performed By: #### C BCDF ####[address] [address] Basophils/100 WBC (Bld) 0.5 % Normal 0.0 - 2.0 [facility] Comment on above: Performed By: #### C BCDF ####[address] [address] Eosinophils (Bld) [#/Vol] 0.18 10*3/uL Normal 0.00 - 0.70 [facility] Comment on above: Performed By: #### C BCDF ####[address] [address] Eosinophils/100 WBC (Bld) 1.8 % Normal 0.0 - 6.0 [facility] Comment on above: Performed By: #### C BCDF ####[address] [address] Erythrocyte distribution width (RBC) [Ratio] 14.7 % High 11.5 - 14.5 [facility] Comment on above: Performed By: #### C BCDF ####[address] [address] Hematocrit (Bld) [Volume fraction] 38.0 % Low 41.0 - 52.0 [facility] Comment on above: Performed By: #### C BCDF ####[address] [address] Hemoglobin (Bld) [Mass/Vol] 11.4 g/dL Low 13.5 - 17.5 [facility] Comment on above: Performed By: #### C BCDF ####[address] [address] Lymphocytes (Bld) [#/Vol] 1.80 10*3/uL Normal 1.20 - 4.80 [facility] Comment on above: Performed By: #### C BCDF ####[facility] [place], [place] [address], [place] [address] Lymphocytes/100 WBC (Bld) 18.4 % Normal 13.0 - 44.0 [facility] Comment on above: Performed By: #### C BCDF ####[address] [place] [address] MCHC (RBC) [Mass/Vol] 30.0 g/dL Low 32.0 - 36.0 [facility] Comment on above: Performed By: #### C BCDF ####[address] [place] [address] MCV (RBC) [Entitic vol] 91 fL Normal 80 - 100 [facility] Comment on above: Performed By: #### C BCDF ####[address] [place] [address] Monocytes (Bld) [#/Vol] 0.46 10*3/uL Normal 0.10 - 1.00 [facility] Comment on above: Performed By: #### C BCDF ####[facility] [place], [place] [address], [place] [address] Monocytes/100 WBC (Bld) 4.7 % Normal 2.0 - 10.0 [facility] Comment on above: Performed By: #### C BCDF ####[address] [place] [address] Neutrophils (Bld) [#/Vol] 7.24 10*3/uL Normal 1.20 - 7.70 [facility] Comment on above: Performed By: #### C BCDF ####[facility] [place], [place] [address], [place] [address] Neutrophils/100 WBC (Bld) 73.9 % Normal 40.0 - 80.0 [facility] Comment on above: Performed By: #### C BCDF ####[address] [place] [address] Nucleated RBC/100 WBC (Bld) [Ratio] 0.0 /100 WBC Normal 0.0 - 0.0 [facility] Comment on above: Performed By: #### C BCDF ####[facility] [place] [address], [place] [address] Platelets (Bld) [#/Vol] 267 10*3/uL Normal 150 - 450 [facility] Comment on above: Performed By: #### C BCDF ####[address] [place] [address] RBC (Bld) [#/Vol] 4.18 x10E12/L Low 4.50 - 5.90 [facility] Comment on above: Performed By: #### C BCDF ####[address] [place] [address] WBC (Bld) [#/Vol] 9.8 10*3/uL Normal 4.4 - 11.3 [facility] Comment on above: Performed By: #### C BCDF ####[address] [place] [address] % AUTOMATED IMMATURE GRAN Canceled [facility] Comment on above: Order Comment: TEST CBC AND DIFFERENTIAL WAS CANCELLED, 10/08/2019 14:13 SPECIMENCLOTTED.PLEASE RESUBMIT. Result Comment: Lina ture Granulocyte Count (IG) includes promyelocytes, myelocytes and metamyelocytes but does not include bands. Percent differential counts (%) should be interpreted in the context of the absolute cell counts (cells/L). Performed By: #### C BCDF ####[address] [place] [address] Basophils (Bld) [#/Vol] Canceled [facility] Comment on above: Order Comment: TEST CBC AND DIFFERENTIAL WAS CANCELLED, 10/08/2019 14:13 SPECIMENCLOTTED.PLEASE RESUBMIT. Performed By: #### C BCDF ####[address] [place] [address] Basophils/100 WBC (Bld) Canceled [facility] Comment on above: Order Comment: TEST CBC AND DIFFERENTIAL WAS CANCELLED, 10/08/2019 14:13 SPECIMENCLOTTED.PLEASE RESUBMIT. Performed By: #### C BCDF ####[address] [place] [address] DIFFERENTIAL Canceled [facility] Comment on above: Order Comment: TEST CBC AND DIFFERENTIAL WAS CANCELLED, 10/08/2019 14:13 SPECIMENCLOTTED.PLEASE RESUBMIT. Performed By: #### C BCDF ####[address] [place] [address] Eosinophils (Bld) [#/Vol] Canceled [facility] Comment on above: Order Comment: TEST CBC AND DIFFERENTIAL WAS CANCELLED, 10/08/2019 14:13 SPECIMENCLOTTED.PLEASE RESUBMIT. Performed By: #### C BCDF ####[address] [place] [address] Eosinophils/100 WBC (Bld) Canceled [facility] Comment on above: Order Comment: TEST CBC AND DIFFERENTIAL WAS CANCELLED, 10/08/2019 14:13 SPECIMENCLOTTED.PLEASE RESUBMIT. Performed By: #### C BCDF ####[address] [address] Erythrocyte distribution width (RBC) [Ratio] Canceled [facility] Comment on above: Order Comment: TEST CBC AND DIFFERENTIAL WAS CANCELLED, 10/08/2019 14:13 SPECIMENCLOTTED.PLEASE RESUBMIT. Performed By: #### C BCDF ####[address] [place] [address] Hematocrit (Bld) [Volume fraction] Canceled [facility] Comment on above: Order Comment: TEST CBC AND DIFFERENTIAL WAS CANCELLED, 10/08/2019 14:13 SPECIMENCLOTTED.PLEASE RESUBMIT. Performed By: #### C BCDF ####[address] [place] [address] Hemoglobin (Bld) [Mass/Vol] Canceled [facility] Comment on above: Order Comment: TEST CBC AND DIFFERENTIAL WAS CANCELLED, 10/08/2019 14:13 SPECIMENCLOTTED.PLEASE RESUBMIT. Performed By: #### C BCDF ####[address] [place] [address] Lymphocytes (Bld) [#/Vol] Canceled [facility] Comment on above: Order Comment: TEST CBC AND DIFFERENTIAL WAS CANCELLED, 10/08/2019 14:13 SPECIMENCLOTTED.PLEASE RESUBMIT. Performed By: #### C BCDF ####[address] [address] MCHC (RBC) [Mass/Vol] Canceled [facility] Comment on above: Order Comment: TEST CBC AND DIFFERENTIAL WAS CANCELLED, 10/08/2019 14:13 SPECIMENCLOTTED.PLEASE RESUBMIT. Performed By: #### C BCDF ####[address] [place] [address] MCV (RBC) [Entitic vol] Canceled [facility] Comment on above: Order Comment: TEST CBC AND DIFFERENTIAL WAS CANCELLED, 10/08/2019 14:13 SPECIMENCLOTTED.PLEASE RESUBMIT. Performed By: #### C BCDF ####[address] [place] [address] Monocytes (Bld) [#/Vol] Canceled [facility] Comment on above: Order Comment: TEST CBC AND DIFFERENTIAL WAS CANCELLED, 10/08/2019 14:13 SPECIMENCLOTTED.PLEASE RESUBMIT. Performed By: #### C BCDF ####[address] [place] [address] Neutrophils (Bld) [#/Vol] Canceled [facility] Comment on above: Order Comment: TEST CBC AND DIFFERENTIAL WAS CANCELLED, 10/08/2019 14:13 SPECIMENCLOTTED.PLEASE RESUBMIT. Performed By: #### C BCDF ####[address] [place] [address] Neutrophils/100 WBC (Bld) Canceled [facility] Comment on above: Order Comment: TEST CBC AND DIFFERENTIAL WAS CANCELLED, 10/08/2019 14:13 SPECIMENCLOTTED.PLEASE RESUBMIT. Performed By: #### C BCDF ####[address] [place] [address] Nucleated RBC/100 WBC (Bld) [Ratio] Canceled [facility] Comment on above: Order Comment: TEST CBC AND DIFFERENTIAL WAS CANCELLED, 10/08/2019 14:13 SPECIMENCLOTTED.PLEASE RESUBMIT. Performed By: #### C BCDF ####[facility] [place] [address] Platelets (Bld) [#/Vol] Canceled [facility] Comment on above: Order Comment: TEST CBC AND DIFFERENTIAL WAS CANCELLED, 10/08/2019 14:13 SPECIMENCLOTTED.PLEASE RESUBMIT. Performed By: #### C BCDF ####[facility] [place] [address] RBC (Bld) [#/Vol] Canceled Normal [facility] Comment on above: Order Comment: TEST CBC AND DIFFERENTIAL WAS CANCELLED, 10/08/2019 14:13 SPECIMENCLOTTED.PLEASE RESUBMIT. Performed By: #### C BCDF ####[facility] [place] [address] WBC (Bld) [#/Vol] Canceled Normal [facility] Comment on above: Order Comment: TEST CBC AND DIFFERENTIAL WAS CANCELLED, 10/08/2019 14:13 SPECIMENCLOTTED.PLEASE RESUBMIT. Performed By: #### C BCDF ####[facility] [place] [address] CHEST 1 VIEWon 10-08-2019 CHEST 1 VIEW Patient Name: NATALIE GERBER STUDY: CHEST 1 VIEW; 10/08/2019 2:10 pm INDICATION: Chest Pain. COMPARISON: 03/26/2019 ACCESSION NUMBER(S): [id number] ORDERING CLINICIAN: VERONICA SAMSON FINDINGS: The heart and mediastinum are normal. The lungs are clear. No infiltrates or pleural effusion. No congestive heart failure or pneumothorax. IMPRESSION: Negative examination. Electronically signed by: JORGE NAVA MD [facility] CORONAVIRUS 2019 BY PCRon CORONAVIRUS 2019,PCR NOT DETECTED Normal Not Detected [facility] Comment on above: Order Comment: Bruna [...] this test method. Fact sheet for providers: www.fda.gov/media/885025/download Fact sheet for patients: www.fda.gov/media/681924/download This test has received FDA Emergency Use Authorization (EUA) and has been verified by [facility]. This test is only authorized for the duration of time that circumstances exist to justify the authorization of the emergency use of in vitro diagnostic tests for the detection of SARS-CoV-2 virus and/or diagnosis of COVID-19 infection under section 564(b)(1) of the Act, 21 U.S.C. 360bbb-3(b)(1), unless the authorization is terminated or revoked sooner. [facility] is certified under CLIA-88 as qualified to perform high complexity testing. Testing is performed in the [facility] laboratory located at [address] [place] [address]. Latosha [place] [address], 10/08/2019 18:51 Performed By: #### C OV19 ####[place] [address] Lab Specimen Source Nasal, Nasopharyngeal [facility] Comment on above: Order Comment: Bruna [place] [address], 10/08/2019 18:51 Performed By: #### C OV19 ####[place] [address] Clinical Event Noteon 2019 Clinical Event Note [...] Updated: 08-Oct-2019 17:19 by Chuy Mc) Normal [facility] History and Physicalon 10-07 History and [...] 'off'. He reports he was discharged from [facility] yesterday. Patient reports Covid-19 spread throughout the [...] Rash, Ulcer Objective: Objective Information: T PRBPSpO2 [id number]/9296% Date/Time10/07 16: 16: 16: 16: 16:52 Range(36.2C [...] old male with lengthy medical history including IL, CVA, PE, uncontrolled hypertension, obesity; presents to ER with reported chest pain. Review of record patient with cardiac catheterization at [facility] in November 2018, no stents placed. [...] Updated: 09-Oct-2019 17:02 by Chuy Mc) [facility] PT/INRon 10-08-2019 INR Coag (PPP) [Relative time] 1.0 {INR} Normal 0.9 - 1.1 [facility] Comment on above: Performed By: #### P TINR ####[facility] [place] [address] PT Coag (PPP) [Time] 10.7 s Normal 9.7 - 12.7 [facility] Comment on above: Performed By: #### P TINR ####[facility] [place] [address] Patient Profile - Adult v2on 10-08-2019 Patient Profile - Adult v2 Profile: Initial Info: How to be AddressedGucho(1) Spoken Language PreferredEnglish (1) Source of Informationpatient Are you currently using the Personal Electronic Health Record or MYUHCAREno (1) Are you interested in learning more about MYCARE for the management of your healthdeclined Stated Reason for Admissionchest pain Primary Contact Name and Numberdebbie [phone] Limitations on Visitors/Phone Callsnone Wants Family/Rep Notified of Admissionyes, primary contact Notify PCPnotify PCP Informed of Patient Visiting Rightsyes Temporary Family Living Arrangements (While Hospitalized)none [facility] Employment Statusretired Current or Previous Servicenone Patient Belongingsremains with patient Patient Belongings Remaining with [employer]/credit card; cell phone/electronics; 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; vision aids; clothing Medications Brought to Hospitalno History of MDROno General Health: Weight in kg147.5 kilogram(s) Weight in yxn670.1 pound(s) Height in feet5 feet Height in [...] Musculoskeletal Symptoms/Conditionsmobility limited Musculoskeletal Management Strategiesmedication therapy; 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 Per pt, CP began while at rest at 0800 today, Pt took 3 SL nitro without relief at home. CP radiates to LUE, described as pressure, ache. Pt with hx of IL without stents, is on plavix/ ASA. Pt with associated nausea. [facility] where EKG perofrmed)(1). [...] Description:Diastolic CHF Description:Mild CAD, but no h/o IL Description:TIA Description:diverticulitis Description:CVA w/ TPA Description:TIA Past [...] SIGNS: T PRBP SpO2O2(LPM) %FiO2 Method 08-Oct-2019 17:29:00-1210745/86 97 room air, no respiratory support 08-Oct-2019 16:52:00-36.20943093/92 96 room air, no respiratory support 08-Oct-2019 16:19:00-5756411/78 97 room air, no respiratory support 08-Oct-2019 15:10:00-8637236/96 08-Oct-2019 14:58:00-9690360/88 97 room air, no respiratory support 08-Oct-2019 14:28:00-67925/97 08-Oct-2019 14:19:00-3552870/104 97 room air, no respiratory support 08-Oct-2019 13:41:00-36.79903944/77 97 room air, no respiratory support 08-Oct-2019 13:35:00-36.81041606/77 97 room air, no respiratory support MEDICAL [...] From "Triage - ED" 08-Oct-2019 13:41 [facility] Risk Screen - Adult Emergenc yon 10-08-2019 Risk Screen - Adult Emergency Preferred Language: Preferred Language: Preferred Language for Discussing Health Care (patient/designee)Cymro Advanced Directives: Advance Directive/DNRno Family Violence Adult: Abuse Screen: Are you or have you been threatened or abused physically, emotionally, or sexually by anyoneno Learning Assessment (Patient): Learning Assessment (Patient): Patient is Able to be Assessed for Learningyes Factors Influencing Readiness to Learninterest in learning Factors that Impact Ability to Learnnone Devices/Methods Used to Communicateglasses Learning Preferencesindividual instruction Cultural Considerationsnone Developmental Considerationsnone Jainism ConsiderationsChristian Learning Assessment (Other Learner): Learning Assessment (Other Learner): Other learner availableno Pressure Injury/TB/Substance: Pressure Injury: Pressure Injury Present on Admissionno Do you have a coughno Substance Use Current or Former Historynever: Cigarette/Tobacco, e-Cigarette/Vaping YES: Alcohol, Street Drugs Alcohol Usehistory of abuse Alcohol Use 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 Drug Usehistory of abuse Street Drug/Medication/ Inhalant Use Additional Lbbctayi44 years sober Admission Risk Screen: Significant IndicatorsComplete CAGE: CAGE: Is this an injured patient at a Trauma Center ([facility]/[place]): no Electronic Signatures: Jewell López (RN) (Signed 08-Oct-2019 16:42) Authored: Preferred Language, Advanced Directives, Family Violence Adult, Learning Assessment (Patient), Learning Assessment (Other Learner), Pressure Injury/TB/Substance, CAGE Last Updated: 08-Oct-2019 16:42 by Jewell López (RN) [facility] TROPONIN Ion 10-08-2019 Troponin I.cardiac [Mass/Vol] ng/mL Normal 0.00 - 0.03 [facility] Comment on above: Result Comment: LESS [...] performed using different testing methodology at [facility] than at other [facility]. Direct result comparisons should only be made within the same method. Performed By: #### T ROP2 ####[facility] [place] [address] Troponin I.cardiac [Mass/Vol] ng/mL Normal 0.00 - 0.03 [facility] Comment on above: Result Comment: LESS [...] performed using different testing methodology at [facility] than at other [facility]. Direct result comparisons should only be made within the same method. Performed By: #### T ROP2 ####[facility] [place] [address] Troponin I.cardiac [Mass/Vol] ng/mL Normal 0.00 - 0.03 [facility] Comment on above: Result Comment: LESS [...] performed using different testing methodology at [facility] than at other [facility]. Direct result comparisons should only be made within the same method. Performed By: #### T ROP2 ####[facility] [place] [address] Triage - EDon 10-08-2019 Triage - ED [...] as pressure, ache. Pt with hx of IL without stents, is on plavix/ ASA. Pt [...] BMI (kg/m2): 52.204 Calculated BSA (m2) 2.55 Celia Coma Scale: Best Eye Response: (E4) spontaneous Best Motor Response: (M6) obeys commands Best Verbal Response: (V5) oriented [place] Score: 15 Mask applied: no Patient has [...] Medical History Reviewedyes Electronic Signatures: Jewell López (PIA) (Signed 08-Oct-2019 13:47) Authored: Triage, Past Medical History Last Updated: 08-Oct-2019 13:47 by Jewell López (PIA) Normal [facility] CT HEAD OR BRAIN W/O CONTRAS [...] 08/12/2019 11:13:24 PM Ordering Provider:Capo Whatley Normal [facility] ([place]) BNP (POC)on 08-10-2019 Natriuretic peptide B (Bld) [Mass/Vol] 2 pg/mL Normal [facility] ([place]) Comment on above: Performed By: #### B NPPOC #### [facility] [address] [place], [place] [address] Natriuretic peptide B (Bld) [Mass/Vol] 12 pg/mL Normal <=99 [facility] ([place]) Comment on above: Performed By: #### B NPPOC #### [facility] [address] [place], [place] [address] CBC (POC)on 08-10-2019 Basophils (Bld) [#/Vol] 0.02 10 3/mcL Normal 0.00-0.27 [facility]) Comment on above: Performed By: #### C MP, GFR #### [address] [address] Basophils/100 WBC (Bld) 0.2 % Normal 0.0-2.5 [facility] ([place]) Comment on above: Performed By: #### C MP, GFR #### [address] [address] Eosinophils (Bld) [#/Vol] 0.13 10 3/mcL Normal 0.00-0.65 [facility] ([place]) Comment on above: Performed By: #### C MP, GFR #### [address] [address] Eosinophils/100 WBC (Bld) 1.5 % Normal 0.0-6.0 [facility] ([place]) Comment on above: Performed By: #### C MP, GFR #### [place] [id number] Erythrocyte distribution width (RBC) [Ratio] 14.5 % Normal 11.5-15.5 [facility] ([place]) Comment on above: Performed By: #### C MP, GFR #### [address] [address] Hematocrit (Bld) [Volume fraction] 35.6 % Low 40.0-52.0 [facility] ([place]) Comment on above: Performed By: #### C MP, GFR #### [address] [address] Hemoglobin (Bld) [Mass/Vol] 11.1 G/dL Low 13.0-17.5 [facility] ([place]) Comment on above: Performed By: #### C MP, GFR #### [address] [address] Imm Granulocyte, Absolute (POC) 0.02 10 3/mcL Normal [facility] ([place]) Comment on above: Performed By: #### C MP, GFR #### [address] [address] Immature granulocytes (Bld) [#/Vol] 0.2 % Normal [facility] ([place]) Comment on above: Performed By: #### C MP, GFR #### [place] [id number] Lymphocytes (Bld) [#/Vol] 1.98 10 3/mcL Normal 0.90-4.32 [facility] ([place]) Comment on above: Performed By: #### C MP, GFR #### [address] [address] Lymphocytes/100 WBC (Bld) 22.1 % Normal 20.0-40.0 [facility] ([place]) Comment on above: Performed By: #### C MP, GFR #### [address] [address] MCH (RBC) [Entitic mass] 26.9 pg Low 27.0-33.0 [facility] ([place]) Comment on above: Performed By: #### C MP, GFR #### [address] [address] MCHC (RBC) [Mass/Vol] 31.2 G/dL Low 32.0-36.0 [facility] ([place]) Comment on above: Performed By: #### C MP, GFR #### [address] [address] MCV (RBC) [Entitic vol] 86.4 fL Normal 81.0-100.0 [facility] ([place]) Comment on above: Performed By: #### C MP, GFR #### [address] [address] Monocytes (Bld) [#/Vol] 0.39 10 3/mcL Normal 0.09-1.40 [facility] ([place]) Comment on above: Performed By: #### C MP, GFR #### [address] [address] Monocytes/100 WBC (Bld) 4.4 % Normal 2.0-13.0 [facility] ([place]) Comment on above: Performed By: #### C MP, GFR #### [address] [address] Neutrophils (Bld) [#/Vol] 6.41 10 3/mcL Normal 2.25-8.10 [facility] ([place]) Comment on above: Performed By: #### C MP, GFR #### [address] [address] Neutrophils/100 WBC (Bld) 71.6 % Normal 50.0-75.0 [facility] ([place]) Comment on above: Performed By: #### C MP, GFR #### [address] [address] Performing Instrument - POCT SYSMEX Normal [facility] ([place]) Comment on above: Performed By: #### C MP, GFR #### [address] [address] Platelet mean volume (Bld) [Entitic vol] 9.1 fL Normal 6.4-10.5 [facility] ([place]) Comment on above: Performed By: #### C MP, GFR #### [address] [address] Platelets (Bld) [#/Vol] 246 10 3/mcL Normal 150-450 [facility] ([place]) Comment on above: Performed By: #### C MP, GFR #### [place] [id number] RBC (Bld) [#/Vol] 4.12 10 6/mcL Low 4.50-6.00 [facility] ([place]) Comment on above: Performed By: #### C MP, GFR #### [address] [address] WBC (Bld) [#/Vol] 8.95 10 3/mcL Normal 4.50-10.80 [facility] ([place]) Comment on above: Performed By: #### C MP, GFR #### [address] [address] PRO (POC)on 08-10-2019 Performing Instrument - POCT SIG ELITE Normal [facility] ([place]) Comment on above: Performed By: #### P ROPOC #### [facility] [address] [place], [place] [address] PT Coag (PPP) [Time] s Low 9.0-14.6 [facility] ([place]) Comment on above: Result Comment: Prot ann results may be affected by some antibiotics (i.e. Ciprofloxacin, Azithromycin, Bactrim) which may potentiate the action of oral anticoagulants, with further increases in Protime/INR. Performed By: #### P ROPOC #### [facility] [address] [place], [place] [address] PT International Ratio (POC) <0.9 Normal [facility] ([place]) Comment on above: Result Comment: The [place] [employer] (CHEST, 1991, 102:312S-25S) recommended therapeutic range for oral anticoagulant therapy is: LOW RISK: Prophylaxis of venous thrombosis INR: 2.0-3.0 Treatment of pulmonary embolism 2.0-3.0 Prevention of systemic embolism 2.0-3.0 HIGH RISK: Mechanical prosthetic valves 2.5-3.5 Performed By: #### P ROPOC #### [facility] [address] [place], [place] [address] RENAL12 (POC)on 08-10-2019 Albumin [Mass/Vol] 3.7 G/dL Normal 3.2-4.8 [facility] ([place]) Comment on above: Performed By: #### C MP, GFR #### [address] [address] Calcium [Mass/Vol] 9.0 mg/dL Normal 8.4-10.1 [facility] ([place]) Comment on above: Performed By: #### C MP, GFR #### [address] [address] Chloride [Moles/Vol] 104 mmol/L Normal 98-110 [facility] ([place]) Comment on above: Performed By: #### C MP, GFR #### [address] [address] CO2 [Moles/Vol] 28 mmol/L Normal 22-32 [facility] ([place]) Comment on above: Performed By: #### C MP, GFR #### [address] [address] Creatinine [Mass/Vol] 0.90 mg/dL Normal 0.60-1.40 [facility] ([place]) Comment on above: Performed By: #### C MP, GFR #### [address] [address] Est GFR (POC) >60 Normal [facility] ([place]) Comment on above: Result Comment: Chronic Kidney Disease: Less than 60 mL/min/1.73 square meters End Stage Renal Disease: Less than 15 mL/min/1.73 square meters Performed By: #### C MP, GFR #### [address] [address] Est GFR Non- (POC) >60 Normal [facility] ([place]) Comment on above: Result Comment: Chronic Kidney Disease: Less than 60 mL/min/1.73 square meters End Stage Renal Disease: Less than 15 mL/min/1.73 square meters Performed By: #### C MP, GFR #### [address] [address] Glucose [Mass/Vol] 101 mg/dL Normal 70-110 [facility] ([place]) Comment on above: Performed By: #### C MP, GFR #### [address] [address] Lactate [Moles/Vol] 2.1 mmol/L High 0.2-2.0 [facility] ([place]) Comment on above: Performed By: #### C MP, GFR #### [address] [address] Magnesium [Mass/Vol] 2.0 mg/dL Normal 1.6-2.4 [facility] ([place]) Comment on above: Performed By: #### C MP, GFR #### [address] [address] Performing Instrument - POCT CARLINE Normal [facility] ([place]) Comment on above: Performed By: #### C MP, GFR #### [address] [address] Phosphorus Level (POC) 3.3 mg/dL Normal 2.5-4.5 [facility] ([place]) Comment on above: Performed By: #### C MP, GFR #### [address] [address] Potassium [Moles/Vol] 4.0 mmol/L Normal 3.5-5.0 [facility] ([place]) Comment on above: Performed By: #### C MP, GFR #### [address] [address] Sodium [Moles/Vol] 138 mmol/L Normal 136-145 [facility] ([place]) Comment on above: Performed By: #### C MP, GFR #### [address] [address] Urea nitrogen [Mass/Vol] 10.0 mg/dL Normal 8.0-22.0 [facility] ([place]) Comment on above: Performed By: #### C MP, GFR #### [address] [address] TROP (POC)on 08-10-2019 Performing Instrument - POCT TRIAGE1 Normal [facility] ([place]) Comment on above: Performed By: #### T ROPPOC #### [facility] [address] [place], [place] [address] Troponin I.cardiac [Mass/Vol] ng/mL Normal <=0.05 [facility] ([place]) Comment on above: Result Comment: Trop onin I reference ranges: <0.05 ng/mL Negative and non-diagnostic. >=0.05 ng/mL Consistent with cardiac damage, increased clinical risk and possibility of myocardial infarction. Serial measurements, a rise & fall in test results, clinical history, appropriate symptoms and/or ECG changes may help assess possibility of IL. *Other non-acute coronary syndrome conditions such as CHF, myocarditis, pulmonary emboli, sepsis and cardiac surgery could result in myocardial damage and increased troponin levels. Performed By: #### T ROPPOC #### [facility] [address] [place], [place] [address] XR CHEST 1 VIEWon 08-10-2019 XR CHEST [...] Date: 08/10/2019 9:27:31 PM Ordering Provider:Wenceslao Greene [facility] ([place]) CBC Auto DifferentialOrdered By: Satya Boyce on 06-21-2019 Absolute Baso # 0.1 10*3/uL 0 - 0.2 10*3/uL [facility] Work Phone: [phone] Absolute Neut # 3.7 10*3/uL 1.8 - 7 10*3/uL [facility] Work Phone: [phone] Basophils/100 WBC (Bld) 0.8 % 0 - 2 % [facility] Work Phone: ) [phone] Eosinophils (Bld) [#/Vol] 0.2 10*3/uL 0 [...] mass] 27.7 pg 26 - 34 pg [facility] Work Phone: [phone] MCHC 32.3 % 32 - 36 % [facility] Work Phone: [phone] MCV (RBC) [Entitic vol] 85.7 fL 80 - 98 fL [facility] Work Phone: [phone] Monocytes (Bld) [#/Vol] 0.3 10*3/uL 0 - 0.8 10*3/uL [facility] Work Phone: [phone] Monocytes/100 WBC (Bld) 5.1 % 2 - 10 % [facility] Work Phone: [phone] Platelet mean volume (Bld) [Entitic vol] 8.0 fL 7.4 - 10.4 fL [facility] Work Phone: [phone] Platelets (Bld) [#/Vol] 212 10*3/uL 140 - 440 10*3/uL [facility] Work Phone: [phone] RBC (Bld) [#/Vol] 3.89 10*6/uL Low 4.4 - 5.9 10*6/uL [facility] Work Phone: [phone] WBC (Bld) [#/Vol] 6.0 10*3/uL 3.6 - 10.7 10*3/uL [facility] Work Phone: [phone] Test Performed by [facility], [address] [place] [address] [facility] Work Phone: [phone] Comp Metabolic Panelon 06-21 ALP [Catalytic activity/Vol] 154 U/L High 38-126 [facility] Comment on above: Performed By: #### H EMOG, DDI2, BMP3, LIPA4, TROPN, BNP3 #### [facility] [employer] [address] [address] ALT [Catalytic activity/Vol] 16 U/L Normal 13-69 [facility] Comment on above: Performed By: #### H EMOG, DDI2, BMP3, LIPA4, TROPN, BNP3 #### [place] [address] [address] [place], [place] Calcium [Mass/Vol] 8.9 mg/dL Normal 8.4-10.4 [facility] Comment on above: Performed By: #### H EMOG, DDI2, BMP3, LIPA4, TROPN, BNP3 #### [place] [address] [address] [place], [place] Glucose [Mass/Vol] 139 mg/dL High 70-100 [facility] Comment on above: Performed By: #### H EMOG, DDI2, BMP3, LIPA4, TROPN, BNP3 #### [place] [address] [place] [place], [place] Protein [Mass/Vol] 6.8 g/dL Normal 6.3-8.2 [facility] Comment on above: Performed By: #### H EMOG, DDI2, BMP3, LIPA4, TROPN, BNP3 #### [place] [address] [place] [place], [place] Urea nitrogen [Mass/Vol] 7 mg/dL Normal 7-20 [facility] Comment on above: Performed By: #### H EMOG, DDI2, BMP3, LIPA4, TROPN, BNP3 #### [address] [place], [place] Anion gap [Moles/Vol] 9 Normal [facility] Comment on above: Performed By: #### H EMOG, DDI2, BMP3, LIPA4, TROPN, BNP3 #### [place] [address] [place] [place], [place] GFR/1.73 sq M predicted among non-blacks MDRD (S/P/Bld) [Vol rate/Area] mL/min/{1.73_m2} Normal >60 [facility] Comment on above: Result Comment: Sour ce- MDRD equation with creatinine calibration to IDMS(NKDEP) eGFR not recommended for drug dose adjustment Performed By: #### H EMOG, DDI2, BMP3, LIPA4, TROPN, BNP3 #### [place] [address] [place] [place], [place] Chloride [Moles/Vol] 106 mmol/L Normal 98-107 [facility] Comment on above: Performed By: #### H EMOG, DDI2, BMP3, LIPA4, TROPN, BNP3 #### [place] [address] [place], [place] Potassium [Moles/Vol] 3.6 mmol/L Normal 3.5-5.1 [facility] Comment on above: Performed By: #### H EMOG, DDI2, BMP3, LIPA4, TROPN, BNP3 #### [place] [address] [place] Sodium [Moles/Vol] 140 mmol/L Normal 135-145 [facility] Comment on above: Performed By: #### H EMOG, DDI2, BMP3, LIPA4, TROPN, BNP3 #### [place] [address] [place] Albumin [Mass/Vol] 3.4 g/dL Low 3.5-5.0 [facility] Comment on above: Performed By: #### H EMOG, DDI2, BMP3, LIPA4, TROPN, BNP3 #### [place] [address] [address] [place], [place] Comp Metabolic PanelOrdered By: Satya Boyce on 06-21-2019 AST [Catalytic activity/Vol] 22 U/L Normal 15-46 [facility] Work Phone: Comment on above: Performed By: #### H EMOG, DDI2, BMP3, LIPA4, TROPN, BNP3 #### [place] [address] [place] [place], [place] Bilirubin [Mass/Vol] 0.3 mg/dL Normal 0.2-1.3 [facility] Work Phone: Comment on above: Performed By: #### H EMOG, DDI2, BMP3, LIPA4, TROPN, BNP3 #### [place] [address] [address] [place], [place] CO2 [Moles/Vol] 26 mmol/L Normal 22-30 [facility] Work Phone: [phone] Comment on above: Performed By: #### H EMOG, DDI2, BMP3, LIPA4, TROPN, BNP3 #### [employer] [address] [place] [phone] Creatinine [Mass/Vol] 0.66 mg/dL Normal 0.52-1.25 [place] Work Phone: [phone] Comment on above: Performed By: #### H EMOG, DDI2, BMP3, LIPA4, TROPN, BNP3 #### [employer] [address] [place] [phone] GFR/1.73 sq M.predicted among blacks MDRD (S/P/Bld) [Vol rate/Area] mL/min/{1.73_m2} Normal >60 [facility] Work Phone: [phone] Comment on above: Performed By: #### H EMOG, DDI2, BMP3, LIPA4, TROPN, BNP3 #### [employer] [address] [place] [phone] Comprehensive Metabolic Pane lOrdered By: Satya Boyce on 06-21-2019 Albumin [Mass/Vol] 3.4 g/dL Low 3.5 - 5 g/dL [facility] Work Phone: [phone] ALP [Catalytic activity/Vol] 154 U/L High 38 - 126 U/L [facility] Work Phone: [phone] ALT [Catalytic activity/Vol] 16 U/L 13 - 69 U/L [facility] Work Phone: [phone] Anion gap [Moles/Vol] 9 mmol/L [facility] Work Phone: [phone] Calcium [Mass/Vol] 8.9 mg/dL 8.4 - 10. 4 mg/dL [facility] Work Phone: [phone] Chloride [Moles/Vol] 106 mmol/L 98 - 10 7 mmol/L [facility] Work Phone: [phone] IF NonAfrican [place] >60.0 >60 mL/min [facility] Work Phone: [phone] Comment on above: Source- MDRD equatio n with creatinine calibration to IDMS(NKDEP) eGFR not recommended for drug dose adjustment Glucose [Mass/Vol] 139 mg/dL High 70 - 100 mg/dL [facility] Work Phone: Interpretation and review of laboratory results Abnormal [facility] Work Phone: Potassium [Moles/Vol] 3.6 mmol/L 3.5 - 5.1 mmol/L [facility] Work Phone: Protein [Mass/Vol] 6.8 g/dL 6.3 - 8.2 g/dL [facility] Work Phone: Sodium [Moles/Vol] 140 mmol/L 135 - 145 mmol/L [facility] Work Phone: Urea nitrogen [Mass/Vol] 7 mg/dL 7 - 20 mg/dL [facility] Work Phone: Test Performed by [facility], [address] [place] [id number] [facility] Work Phone: Hemogram w/ Autodiffon 06-21 Abs Baso Cnt 0.1 10*3/uL Normal 0.0-0.2 [facility] Comment on above: Performed By: #### H EMOG, DDI2, BMP3, LIPA4, TROPN, BNP3 #### [address] [address] Abs Neutrophile Cnt 3.7 10*3/uL Normal 1.8-7.0 [facility] Comment on above: Performed By: #### H EMOG, DDI2, BMP3, LIPA4, TROPN, BNP3 #### [address] [address] Basophils/100 WBC (Bld) 0.8 % Normal 0.0-2.0 [facility] Comment on above: Performed By: #### H EMOG, DDI2, BMP3, LIPA4, TROPN, BNP3 #### [address] [address] Eosinophils (Bld) [#/Vol] 0.2 10*3/uL Normal 0.0-0.5 [facility] Comment on above: Performed By: #### H EMOG, DDI2, BMP3, LIPA4, TROPN, BNP3 #### [address] Eosinophils/100 WBC (Bld) 2.6 % Normal 1.0-6.0 [facility] Comment on above: Performed By: #### H EMOG, DDI2, BMP3, LIPA4, TROPN, BNP3 #### [address] Erythrocyte distribution width (RBC) [Ratio] 16.3 % High 11.5-14.5 [facility] Comment on above: Performed By: #### H EMOG, DDI2, BMP3, LIPA4, TROPN, BNP3 #### [address] Granulocytes/100 WBC (Bld) 62.1 % Normal 40.0-80.0 [facility] Comment on above: Performed By: #### H EMOG, DDI2, BMP3, LIPA4, TROPN, BNP3 #### [address] Hematocrit (Bld) [Volume fraction] 33.3 % Low 40.0-52.0 [facility] Comment on above: Performed By: #### H EMOG, DDI2, BMP3, LIPA4, TROPN, BNP3 #### [address] Hemoglobin (Bld) [Mass/Vol] 10.8 g/dL Low 13.0-18.0 [facility] Comment on above: Performed By: #### H EMOG, DDI2, BMP3, LIPA4, TROPN, BNP3 #### [address] Lymphocytes (Bld) [#/Vol] 1.8 10*3/uL Normal 1.0-4.3 [facility] Comment on above: Performed By: #### H EMOG, DDI2, BMP3, LIPA4, TROPN, BNP3 #### [address] [place], [place] Lymphocytes/100 WBC (Bld) 29.4 % Normal 20.0-40.0 [facility] Comment on above: Performed By: #### H EMOG, DDI2, BMP3, LIPA4, TROPN, BNP3 #### [address] MCH (RBC) [Entitic mass] 27.7 pg Normal 26.0-34.0 [facility] Comment on above: Performed By: #### H EMOG, DDI2, BMP3, LIPA4, TROPN, BNP3 #### [address] MCHC (RBC) [Mass/Vol] 32.3 % Normal 32.0-36.0 [facility] Comment on above: Performed By: #### H EMOG, DDI2, BMP3, LIPA4, TROPN, BNP3 #### [address] MCV (RBC) [Entitic vol] 85.7 fL Normal 80.0-98.0 [facility] Comment on above: Performed By: #### H EMOG, DDI2, BMP3, LIPA4, TROPN, BNP3 #### [address] Monocytes (Bld) [#/Vol] 0.3 10*3/uL Normal 0.0-0.8 [facility] Comment on above: Performed By: #### H EMOG, DDI2, BMP3, LIPA4, TROPN, BNP3 #### [address] Monocytes/100 WBC (Bld) 5.1 % Normal 2.0-10.0 [facility] Comment on above: Performed By: #### H EMOG, DDI2, BMP3, LIPA4, TROPN, BNP3 #### [address] Platelet mean volume (Bld) [Entitic vol] 8.0 fL Normal 7.4-10.4 [facility] Comment on above: Performed By: #### H EMOG, DDI2, BMP3, LIPA4, TROPN, BNP3 #### [place] [address] [address] [place], [place] Platelets (Bld) [#/Vol] 212 10*3/uL Normal 140-440 [facility] Comment on above: Performed By: #### H EMOG, DDI2, BMP3, LIPA4, TROPN, BNP3 #### [place] [address] [address] [place], [place] RBC (Bld) [#/Vol] 3.89 10*6/uL Low 4.40-5.90 [facility] Comment on above: Performed By: #### H EMOG, DDI2, BMP3, LIPA4, TROPN, BNP3 #### [place] [address] [address] [place], [place] WBC (Bld) [#/Vol] 6.0 10*3/uL Normal 3.6-10.7 [facility] Comment on above: Performed By: #### H EMOG, DDI2, BMP3, LIPA4, TROPN, BNP3 #### [address] [place] [address] [address] [place], [place] CBC Auto DifferentialOrdered By: Satya Boyce on 06-19-2019 Absolute Baso # 0.0 10*3/uL 0 - 0.2 10*3/uL [facility] Work Phone: Absolute Neut # 3.3 10*3/uL 1.8 - 7 10*3/uL [facility] Work Phone: Basophils/100 WBC (Bld) 0.6 % 0 - 2 % [facility] Work Phone: Eosinophils (Bld) [#/Vol] 0.1 10*3/uL 0 - 0.5 10*3/uL [facility] Work Phone: Eosinophils/100 WBC (Bld) 2.1 % 1 - 6 % [facility] Work Phone: Erythrocyte distribution width (RBC) [Ratio] 16.5 % High 11.5 - 14.5 % [facility] Work Phone: [phone] Granulocytes/100 WBC (Bld) 62.6 % 40 - 80 % [facility] Work Phone: [phone] Hematocrit (Bld) [Volume fraction] 33.5 % Low 40 - 52 % [facility] Work Phone: [phone] Hemoglobin (Bld) [Mass/Vol] 10.6 g/dL Low 13 - 18 g/dL [facility] Work Phone: [phone] Interpretation and review of laboratory results Abnormal [facility] Work Phone: [phone] Lymphocytes (Bld) [#/Vol] 1.5 10*3/uL 1 - 4.3 10*3/uL [facility] Work Phone: [phone] Lymphocytes/100 WBC (Bld) 29.0 % 20 - 40 % [facility] Work Phone: [phone] MCH (RBC) [Entitic mass] 27.6 pg 26 - 34 pg [facility] Work Phone: [phone] MCHC 31.8 % Low 32 - 36 % [facility] Work Phone: [phone] MCV (RBC) [Entitic vol] 86.8 fL 80 - 98 fL [facility] Work Phone: [phone] Monocytes (Bld) [#/Vol] 0.3 10*3/uL 0 - 0.8 10*3/uL [facility] Work Phone: [phone] Monocytes/100 WBC (Bld) 5.7 % 2 - 10 % [facility] Work Phone: [phone] Platelet mean volume (Bld) [Entitic vol] 8.1 fL 7.4 - 10.4 fL [facility] Work Phone: [phone] Platelets (Bld) [#/Vol] 217 10*3/uL 140 - 440 10*3/uL [facility] Work Phone: [phone] RBC (Bld) [#/Vol] 3.86 10*6/uL Low 4.4 - 5.9 10*6/uL [facility] Work Phone: [phone] WBC (Bld) [#/Vol] 5.2 10*3/uL 3.6 - 10.7 10*3/uL [facility] Work Phone: Test Performed by [facility], [address] [place] [address] [facility] Work Phone: Comp Metabolic Panelon 06-19 ALP [Catalytic activity/Vol] 153 U/L High 38-126 [facility] Comment on above: Performed By: #### H EMOG, DDI2, BMP3, LIPA4, TROPN, BNP3 #### [address] [place] [address] [place], [place] ALT [Catalytic activity/Vol] 19 U/L Normal 13-69 [facility] Comment on above: Performed By: #### H EMOG, DDI2, BMP3, LIPA4, TROPN, BNP3 #### [address] AST [Catalytic activity/Vol] 26 U/L Normal 15-46 [facility] Comment on above: Performed By: #### H EMOG, DDI2, BMP3, LIPA4, TROPN, BNP3 #### [address] [place] [address] [place], [place] Bilirubin [Mass/Vol] 0.3 mg/dL Normal 0.2-1.3 [facility] Comment on above: Performed By: #### H EMOG, DDI2, BMP3, LIPA4, TROPN, BNP3 #### [place] [address] [address] [place], [place] Calcium [Mass/Vol] 8.4 mg/dL Normal 8.4-10.4 [facility] Comment on above: Performed By: #### H EMOG, DDI2, BMP3, LIPA4, TROPN, BNP3 #### [address] [place] [address] [place], [place] Glucose [Mass/Vol] 124 mg/dL High 70-100 [facility] Comment on above: Performed By: #### H EMOG, DDI2, BMP3, LIPA4, TROPN, BNP3 #### [address] [place] [address] [place], [place] Protein [Mass/Vol] 7.0 g/dL Normal 6.3-8.2 [facility] Comment on above: Performed By: #### H EMOG, DDI2, BMP3, LIPA4, TROPN, BNP3 #### [address] [place] [address] [place], [place] Urea nitrogen [Mass/Vol] 9 mg/dL Normal 7-20 [facility] Comment on above: Performed By: #### H EMOG, DDI2, BMP3, LIPA4, TROPN, BNP3 #### [place] [address] [place] [place] Anion gap [Moles/Vol] 8 Normal [facility] Comment on above: Performed By: #### H EMOG, DDI2, BMP3, LIPA4, TROPN, BNP3 #### [place] [address] [place], [place] CO2 [Moles/Vol] 26 mmol/L Normal 22-30 [facility] Comment on above: Performed By: #### H EMOG, DDI2, BMP3, LIPA4, TROPN, BNP3 #### [address] [place] [address] [place], [place] Creatinine [Mass/Vol] 0.74 mg/dL Normal 0.52-1.25 [facility] Comment on above: Performed By: #### H EMOG, DDI2, BMP3, LIPA4, TROPN, BNP3 #### [address] [place] [address] [place], [place] GFR/1.73 sq M predicted among blacks MDRD (S/P/Bld) [Vol rate/Area] mL/min/{1.73_m2} Normal >60 [facility] Comment on above: Performed By: #### H EMOG, DDI2, BMP3, LIPA4, TROPN, BNP3 #### [address] [place] [address] [place], [place] GFR/1.73 sq M predicted among non-blacks MDRD (S/P/Bld) [Vol rate/Area] mL/min/{1.73_m2} Normal >60 [facility] Comment on above: Result Comment: Sour ce- MDRD equation with creatinine calibration to IDMS(NKDEP) eGFR not recommended for drug dose adjustment Performed By: #### H EMOG, DDI2, BMP3, LIPA4, TROPN, BNP3 #### [facility] [address] [place], [place] Albumin [Mass/Vol] 3.6 g/dL Normal 3.5-5.0 [facility] Comment on above: Performed By: #### H EMOG, DDI2, BMP3, LIPA4, TROPN, BNP3 #### [facility] [address] [place], [place] Potassium [Moles/Vol] 3.9 mmol/L Normal 3.5-5.1 [facility] Comment on above: Performed By: #### H EMOG, DDI2, BMP3, LIPA4, TROPN, BNP3 #### [place] [address] [address] [place] Sodium [Moles/Vol] 139 mmol/L Normal 135-145 [facility] Comment on above: Performed By: #### H EMOG, DDI2, BMP3, LIPA4, TROPN, BNP3 #### [place] [address] [address] [place] Chloride [Moles/Vol] 105 mmol/L Normal 98-107 [facility] Comment on above: Performed By: #### H EMOG, DDI2, BMP3, LIPA4, TROPN, BNP3 #### [place] [address] [address] [place], [place] Comprehensive Metabolic Pane lOrdered By: Satya Boyce on 06-19-2019 Albumin [Mass/Vol] 3.6 g/dL 3.5 - 5 g/dL [facility] Work Phone: [phone] ALP [Catalytic activity/Vol] 153 U/L High 38 - 126 U/L [facility] Work Phone: ALT [Catalytic activity/Vol] 19 U/L 13 - 69 U/L [facility] Work Phone: Anion gap [Moles/Vol] 8 mmol/L [facility] Work Phone: AST [Catalytic activity/Vol] 26 U/L 15 - 46 U/L [facility] Work Phone: [phone] Bilirubin [Mass/Vol] 0.3 mg/dL 0.2 - [...] 0.52 - 1.25 mg/dL [facility] Work Phone: [phone] EGFR IF NonAfrican Greenlandic >60.0 >60 mL/min [facility] Work Phone: [phone] Comment on above: Source- MDRD equatio n with creatinine calibration to IDMS(NKDEP) eGFR not recommended for drug dose adjustment GFR/1.73 sq M.predicted among blacks MDRD (S/P/Bld) [Vol rate/Area] mL/min/{1.73_m2} >60 mL/min [facility] Work Phone: [phone] Glucose [Mass/Vol] 124 mg/dL High 70 - 100 mg/dL [facility] Work Phone: [phone] Interpretation and review of laboratory results Abnormal [facility] Work Phone: [phone] Potassium [Moles/Vol] 3.9 mmol/L 3.5 - 5.1 mmol/L [facility] Work Phone: [phone] Protein [Mass/Vol] 7.0 g/dL 6.3 - 8.2 g/dL [facility] Work Phone: [phone] Sodium [Moles/Vol] 139 mmol/L 135 - 145 mmol/L [facility] Work Phone: [phone] Urea nitrogen [Mass/Vol] 9 mg/dL 7 - 20 mg/dL [facility] Work Phone: [phone] Test Performed by [facility] [employer] [facility], [address] [place] [address] [facility] Work Phone: Hemogram w/ Autodiffon 06-19 Abs Baso Cnt 0.0 10*3/uL Normal 0.0-0.2 [facility] Comment on above: Performed By: #### H EMOG, DDI2, BMP3, LIPA4, TROPN, BNP3 #### [place] [address] [address], [place] Abs Neutrophile Cnt 3.3 10*3/uL Normal 1.8-7.0 [facility] Comment on above: Performed By: #### H EMOG, DDI2, BMP3, LIPA4, TROPN, BNP3 #### [address] [address] [place] [address] Basophils/100 WBC (Bld) 0.6 % Normal 0.0-2.0 [facility] Comment on above: Performed By: #### H EMOG, DDI2, BMP3, LIPA4, TROPN, BNP3 #### [place] [address] [place] [place] Eosinophils (Bld) [#/Vol] 0.1 10*3/uL Normal 0.0-0.5 [facility] Comment on above: Performed By: #### H EMOG, DDI2, BMP3, LIPA4, TROPN, BNP3 #### [address] [place] [address] [place], [place] Eosinophils/100 WBC (Bld) 2.1 % Normal 1.0-6.0 [facility] Comment on above: Performed By: #### H EMOG, DDI2, BMP3, LIPA4, TROPN, BNP3 #### [address] Erythrocyte distribution width (RBC) [Ratio] 16.5 % High 11.5-14.5 [facility] Comment on above: Performed By: #### H EMOG, DDI2, BMP3, LIPA4, TROPN, BNP3 #### [address] Granulocytes/100 WBC (Bld) 62.6 % Normal 40.0-80.0 [facility] Comment on above: Performed By: #### H EMOG, DDI2, BMP3, LIPA4, TROPN, BNP3 #### [address] Hematocrit (Bld) [Volume fraction] 33.5 % Low 40.0-52.0 [facility] Comment on above: Performed By: #### H EMOG, DDI2, BMP3, LIPA4, TROPN, BNP3 #### [address] Hemoglobin (Bld) [Mass/Vol] 10.6 g/dL Low 13.0-18.0 [facility] Comment on above: Performed By: #### H EMOG, DDI2, BMP3, LIPA4, TROPN, BNP3 #### [address] Lymphocytes (Bld) [#/Vol] 1.5 10*3/uL Normal 1.0-4.3 [facility] Comment on above: Performed By: #### H EMOG, DDI2, BMP3, LIPA4, TROPN, BNP3 #### [address] Lymphocytes/100 WBC (Bld) 29.0 % Normal 20.0-40.0 [facility] Comment on above: Performed By: #### H EMOG, DDI2, BMP3, LIPA4, TROPN, BNP3 #### [address] MCH (RBC) [Entitic mass] 27.6 pg Normal 26.0-34.0 [facility] Comment on above: Performed By: #### H EMOG, DDI2, BMP3, LIPA4, TROPN, BNP3 #### [address] MCHC (RBC) [Mass/Vol] 31.8 % Low 32.0-36.0 [facility] Comment on above: Performed By: #### H EMOG, DDI2, BMP3, LIPA4, TROPN, BNP3 #### [place] [address] [address] [place] MCV (RBC) [Entitic vol] 86.8 fL Normal 80.0-98.0 [facility] Comment on above: Performed By: #### H EMOG, DDI2, BMP3, LIPA4, TROPN, BNP3 #### [facility] [address] [place], [place] Monocytes (Bld) [#/Vol] 0.3 10*3/uL Normal 0.0-0.8 [facility] Comment on above: Performed By: #### H EMOG, DDI2, BMP3, LIPA4, TROPN, BNP3 #### [address] Monocytes/100 WBC (Bld) 5.7 % Normal 2.0-10.0 [facility] Comment on above: Performed By: #### H EMOG, DDI2, BMP3, LIPA4, TROPN, BNP3 #### [place] [address] [address], [place] Platelet mean volume (Bld) [Entitic vol] 8.1 fL Normal 7.4-10.4 [facility] Comment on above: Performed By: #### H EMOG, DDI2, BMP3, LIPA4, TROPN, BNP3 #### [address] [place] [address] [place], [place] Platelets (Bld) [#/Vol] 217 10*3/uL Normal 140-440 [facility] Comment on above: Performed By: #### H EMOG, DDI2, BMP3, LIPA4, TROPN, BNP3 #### [address] RBC (Bld) [#/Vol] 3.86 10*6/uL Low 4.40-5.90 [facility] Comment on above: Performed By: #### H EMOG, DDI2, BMP3, LIPA4, TROPN, BNP3 #### [address] [place] [address] [place], [place] WBC (Bld) [#/Vol] 5.2 10*3/uL Normal 3.6-10.7 [facility] Comment on above: Performed By: #### H EMOG, DDI2, BMP3, LIPA4, TROPN, BNP3 #### [address] APTTon 06-17-2019 aPTT Coag (Bld) [Time] 25.9 s Normal 20.0-30.5 [facility] Comment on above: Result Comment: NOTE : The therapeutic time for Heparin anticoagulation, based on Xa activity inhibition, is an APTT of 46-80 seconds. Performed By: #### H EMOG, DDI2, BMP3, LIPA4, TROPN, BNP3 #### [address] [place] [address] [place], [place] APTTOrdered By: Arian ernst on 06-17-2019 aPTT Coag (Bld) [Time] 25.9 s 20 - 30.5 s [facility] Work Phone: Comment on above: NOTE: The therapeuti c time for Heparin anticoagulation, based on Xa activity inhibition, is an APTT of 46-80 seconds. Test Performed by [facility], [address] [place] [address] [facility] Work Phone: Basic Metabolic Panelon 06-02 Anion gap [Moles/Vol] 8 Normal [facility] Comment on above: Performed By: #### H EMOG, DDI2, BMP3, LIPA4, TROPN, BNP3 #### [address] [place] [address] [place], [place] Calcium [Mass/Vol] 8.9 mg/dL Normal 8.4-10.4 [facility] Comment on above: Performed By: #### H EMOG, DDI2, BMP3, LIPA4, TROPN, BNP3 #### [address] CO2 [Moles/Vol] 25 mmol/L Normal 22-30 [facility] Comment on above: Performed By: #### H EMOG, DDI2, BMP3, LIPA4, TROPN, BNP3 #### [address] Creatinine [Mass/Vol] 0.67 mg/dL Normal 0.52-1.25 [facility] Comment on above: Performed By: #### H EMOG, DDI2, BMP3, LIPA4, TROPN, BNP3 #### [address] GFR/1.73 sq M predicted among blacks MDRD (S/P/Bld) [Vol rate/Area] mL/min/{1.73_m2} Normal >60 [facility] Comment on above: Performed By: #### H EMOG, DDI2, BMP3, LIPA4, TROPN, BNP3 #### [address] GFR/1.73 sq M predicted among non-blacks MDRD (S/P/Bld) [Vol rate/Area] mL/min/{1.73_m2} Normal >60 [facility] Comment on above: Result Comment: Sour ce- MDRD equation with creatinine calibration to IDMS(NKDEP) eGFR not recommended for drug dose adjustment Performed By: #### H EMOG, DDI2, BMP3, LIPA4, TROPN, BNP3 #### [address] Glucose [Mass/Vol] 101 mg/dL High 70-100 [facility] Comment on above: Performed By: #### H EMOG, DDI2, BMP3, LIPA4, TROPN, BNP3 #### [address] Urea nitrogen [Mass/Vol] 9 mg/dL Normal 7-20 [facility] Comment on above: Performed By: #### H EMOG, DDI2, BMP3, LIPA4, TROPN, BNP3 #### [address] Chloride [Moles/Vol] 103 mmol/L Normal 98-107 [facility] Comment on above: Performed By: #### H EMOG, DDI2, BMP3, LIPA4, TROPN, BNP3 #### [facility] [address] [place], [place] Potassium [Moles/Vol] 4.0 mmol/L Normal 3.5-5.1 [facility] Comment on above: Performed By: #### H EMOG, DDI2, BMP3, LIPA4, TROPN, BNP3 #### [facility] [address] [place], [place] Sodium [Moles/Vol] 136 mmol/L Normal 135-145 [facility] Comment on above: Performed By: #### H EMOG, DDI2, BMP3, LIPA4, TROPN, BNP3 #### [facility] [address] [place], [place] Basic Metabolic PanelOrdered By: Arian Dimas on 06-17-2019 Anion gap [Moles/Vol] 8 mmol/L [facility] Work Phone: Calcium [Mass/Vol] 8.9 mg/dL 8.4 - 10. 4 mg/dL [facility] Work Phone: Chloride [Moles/Vol] 103 mmol/L 98 - 10 7 mmol/L [facility] Work Phone: CO2 [Moles/Vol] 25 mmol/L 22 - 30 mmol/L [facility] Work Phone: Creatinine [Mass/Vol] 0.67 mg/dL 0.52 - 1.25 mg/dL [facility] Work Phone: EGFR IF NonAfrican Greenlandic >60.0 >60 mL/min [facility] Work Phone: Comment on above: Source- MDRD equatio n with creatinine calibration to IDMS(NKDEP) eGFR not recommended for drug dose adjustment GFR/1.73 sq M.predicted among blacks MDRD (S/P/Bld) [Vol rate/Area] mL/min/{1.73_m2} >60 mL/min [facility] Work Phone: Glucose [Mass/Vol] 101 mg/dL High 70 - 100 mg/dL [facility] Work Phone: Interpretation and review of laboratory results Abnormal [facility] Work Phone: Potassium [Moles/Vol] 4.0 mmol/L 3.5 - 5.1 mmol/L [facility] Work Phone: Sodium [Moles/Vol] 136 mmol/L 135 - 145 mmol/L [facility] Work Phone: Urea nitrogen [Mass/Vol] 9 mg/dL 7 - 20 mg/dL [facility] Work Phone: Test Performed by [address] [address] [facility] Work Phone: CT Cervical Spine WO Contras tOrdered By: Arian Dimas on 06-17-2019 Patient Name: NATALIE GERBER ---CT--- Exam Date/Time 06/17/2019 20:40:[address] Spine Cervical w/o Contrast Ordering Physician MD DIMAS KIMBERLY Accession Number [id number] CPT4 Codes 42691 () Reason For Exam fall Report CT [...] and Time: 06/17/2019 8:45 [facility] Work Phone: [facility] - 06/17/2019 8:48 PM EST Patient Name: NATALIE GERBER ---CT--- Exam Date/Time 06/17/2019 20:40:[address] Spine Cervical w/o Contrast Ordering Physician MD DIMAS KIMBERLY Accession Number [id number] CPT4 Codes 63997 () Reason For Exam fall Report CT [...] Ordering Physician MD DIMAS KIMBERLY Accession Number [id number] CPT4 Codes 94529 () Reason For Exam head trauma, +plavix [...] Time: 06/17/2019 8:43 [facility] Work Phone: [facility] From [facility] - 06/17/2019 8:46 PM EST Patient Name: NATALIE GERBER ---CT--- Exam Date/Time 06/17/2019 20:39:[address] Head or Brain w/o Contrast Ordering Physician MD WING ARIAN Accession Number [id number] CPT4 Codes 61988 () Reason For Exam head trauma, +plavix [...] Transcribed Date and Time: 06/17/2019 8:43 [facility] Work Phone: CT Head or Brain w/o Contras ton 06-17-2019 CT Head or Brain w/o Contrast Patient Name: NATALIE GERBER CT Exam Date/Time 06/17/2019 20:39:[address] Head or Brain w/o Contrast Ordering Physician MD DIMAS KIMBERLY Accession Number [id number] CPT4 Codes 62816 () Reason For Exam head trauma, +plavix [...] Dictated: 06/17/2019 8:43 pm Dictating Physician: DO COLEMNA ALFRED Signed Date and Time: 06/17/2019 8:44 pm Signed by: DO COLEMAN ALFRED Transcribed Date and Time: 06/17/2019 8:43 Normal [facility] CT Spine Cervical w/o Contra ston 06-17-2019 CT Spine Cervical w/o Contrast Patient Name: NATALIE GERBER CT Exam Date/Time 06/17/2019 20:40:[address] Spine Cervical w/o Contrast Ordering Physician MD DIMAS KIMBERLY Accession Number [id number] CPT4 Codes 60052 () Reason For Exam fall Report CT [...] Transcribed Date and Time: 06/17/2019 8:45 Normal [facility] Hemogramon 06-17-2019 Erythrocyte distribution width (RBC) [Ratio] 16.6 % High 11.5-14.5 [facility] Comment on above: Performed By: #### H EMOG, DDI2, BMP3, LIPA4, TROPN, BNP3 #### [address] Hematocrit (Bld) [Volume fraction] 33.4 % Low 40.0-52.0 [facility] Comment on above: Performed By: #### H EMOG, DDI2, BMP3, LIPA4, TROPN, BNP3 #### [address] Hemoglobin (Bld) [Mass/Vol] 10.6 g/dL Low 13.0-18.0 [facility] Comment on above: Performed By: #### H EMOG, DDI2, BMP3, LIPA4, TROPN, BNP3 #### [address] MCH (RBC) [Entitic mass] 27.2 pg Normal 26.0-34.0 [facility] Comment on above: Performed By: #### H EMOG, DDI2, BMP3, LIPA4, TROPN, BNP3 #### [address] MCHC (RBC) [Mass/Vol] 31.8 % Low 32.0-36.0 [facility] Comment on above: Performed By: #### H EMOG, DDI2, BMP3, LIPA4, TROPN, BNP3 #### [address] MCV (RBC) [Entitic vol] 85.6 fL Normal 80.0-98.0 [facility] Comment on above: Performed By: #### H EMOG, DDI2, BMP3, LIPA4, TROPN, BNP3 #### [address] Platelet mean volume (Bld) [Entitic vol] 7.8 fL Normal 7.4-10.4 [facility] Comment on above: Performed By: #### H EMOG, DDI2, BMP3, LIPA4, TROPN, BNP3 #### [address] Platelets (Bld) [#/Vol] 242 10*3/uL Normal 140-440 [facility] Comment on above: Performed By: #### H EMOG, DDI2, BMP3, LIPA4, TROPN, BNP3 #### [address] RBC (Bld) [#/Vol] 3.91 10*6/uL Low 4.40-5.90 [facility] Comment on above: Performed By: #### H EMOG, DDI2, BMP3, LIPA4, TROPN, BNP3 #### [address] WBC (Bld) [#/Vol] 8.0 10*3/uL Normal 3.6-10.7 [facility] Comment on above: Performed By: #### H EMOG, DDI2, BMP3, LIPA4, TROPN, BNP3 #### [address] [place] [id number] Hemogram (CBC)Ordered By: Sloan Dimas on 06-17-2019 Erythrocyte distribution width (RBC) [Ratio] 16.6 % High 11.5 - 14.5 % [employer] Work Phone: [phone] Hematocrit (Bld) [Volume fraction] 33.4 % Low 40 - 52 % [employer] Work Phone: [phone] Hemoglobin (Bld) [Mass/Vol] 10.6 g/dL Low 13 - 18 g/dL [employer] Work Phone: [phone] Interpretation and review of laboratory results Abnormal [employer] Work Phone: [phone] MCH (RBC) [Entitic mass] 27.2 pg 26 - 34 pg [employer] Work Phone: [phone] [facility]CHC 31.8 % Low 32 - 36 % [employer] Work Phone: [phone] MCV (RBC) [Entitic vol] 85.6 fL 80 - 98 fL [employer] Work Phone: [phone] Platelet mean volume (Bld) [Entitic vol] 7.8 fL 7.4 - 10.4 fL [employer] Work Phone: [phone] Platelets (Bld) [#/Vol] 242 10*3/uL 140 - 440 10*3/uL [facility] Work Phone: [phone] RBC (Bld) [#/Vol] 3.91 10*6/uL Low 4.4 - 5.9 10*6/uL [employer] Work Phone: [phone] WBC (Bld) [#/Vol] 8.0 10*3/uL 3.6 - 10.7 10*3/uL [employer] Work Phone: [phone] Test Performed by [facility], [address] [place] [id number] [facility] Work Phone: [phone] Prothrombin Timeon 0 INR Coag (PPP) [Relative time] 1.0 Normal 0.9-1.1 [facility] Comment on above: Result Comment: Doe mmended [...] EMOG, DDI2, BMP3, LIPA4, TROPN, BNP3 #### [address] [address] PT Coag (PPP) [Time] 10.2 s Normal 9.0-12.0 [facility] Comment on above: Result Comment: . Performed By: #### H EMOG, DDI2, BMP3, LIPA4, TROPN, BNP3 #### [address] [address] Protime-INROrdered By: Sonya Dimas on 06-17-2019 INR Coag (PPP) [Relative time] 1.0 {INR} [facility] Work Phone: Comment on above: Recommended Anticoag [...] [Time] 10.2 s 9 - 12 s [facility] Work Phone: Comment on above: . Test Performed by [facility] [facility], [address] [place] [address] [facility] Work Phone: Glucose Meteron 05-10-2019 Glucose [Mass/Vol] 124 mg/dL High 70-99 [facility] Comment on above: Result Comment: PIA [place] OTIFIED Performed By: #### G FR #### [address] [address] Activated PTTon 05-09-2019 aPTT Coag (Bld) [Time] 26.9 s Normal 23.0-32.4 [facility] Comment on above: Result Comment: Unfr actionated [...] laboratory APTT reagent in use throughout the [facility]. Performed By: #### E RTRP #### [address] [address] Basic Panelon 05-09-2019 Creatinine [Mass/Vol] 0.61 mg/dL Low 0.67-1.17 [facility] Comment on above: Performed By: #### G FR #### [address] [address] Glucose [Mass/Vol] 103 mg/dL High 70-99 [facility] Comment on above: Performed By: #### G FR #### [address] [address] Anion gap [Moles/Vol] 8 mmol/L Normal 8-16 [facility] Comment on above: Performed By: #### G FR #### [address] [address] Calcium [Mass/Vol] 8.6 mg/dL Normal 8.5-10.1 [facility] Comment on above: Performed By: #### G FR #### [facility] [address] [place], [place] [address] CO2 [Moles/Vol] 29 mmol/L Normal 21-32 [facility] Comment on above: Performed By: #### G FR #### [address] [address] Urea nitrogen [Mass/Vol] 8 mg/dL Normal 7-18 [facility] Comment on above: Performed By: #### G FR #### [facility] [address] [place], [place] [address] Chloride [Moles/Vol] 104 mmol/L Normal 98-107 [facility] Comment on above: Performed By: #### G FR #### [facility] [address] [place], [place] [address] Potassium [Moles/Vol] 4.1 mmol/L Normal 3.5-5.1 [facility] Comment on above: Performed By: #### G FR #### [facility] [address] [place], [place] [address] Sodium [Moles/Vol] 137 mmol/L Normal 136-145 [facility] Comment on above: Performed By: #### G FR #### [facility] [address] [place], [place] [address] CT BRAIN ATTACK WO IVCONon 1 07-10-2018 CT BRAIN ATTACK WO IVCON * * *Final Report* * * DATE OF EXAM: May 09 2019 4:25PM [facility] 0502 - CT BRAIN ATTACK WO IVCON [...] Cunha on 05/09/2019 at 1632 hours. CR_1 Woodworker: SHIRA Transcribe Date/Time: May 09 2019 4:29P Dictated by : DMITRY LUCIA MD This examination was interpreted and the report reviewed and electronically signed by: DMITRY LUCIA MD on May 09 2019 4:34PM EST CRITICAL!! Critically high [facility] CTA HEAD W IVCONon 9 CTA HEAD W IVCON * * *Final Report* * * DATE OF EXAM: May 09 2019 6:57PM [facility] 0022 - CTA HEAD W IVCON / [...] CT ANGIOGRAPHY OF THE BRAIN: 1. Unremarkable [place]. No high-grade stenosis or proximal occlusion CT ANGIOGRAPHY OF THE NECK: 1. No flow-limiting stenosis is seen of the carotids or vertebrals. Incidental findings as above. Woodworker: PSCB Transcribe Date/Time: May 09 2019 7:10P Dictated by : DMITRY LUCIA MD This examination was interpreted and the report reviewed and electronically signed by: DMITRY LUCIA MD on May 09 2019 7:23PM EST Normal [facility] CTA NECK W IVCONon 12-08-201 9 CTA NECK W IVCON * * *Final Report* * * DATE OF EXAM: May 09 2019 6:57PM [facility] 0024 - CTA NECK W IVCON / [...] CT ANGIOGRAPHY OF THE BRAIN: 1. Unremarkable [place]. No high-grade stenosis or proximal occlusion CT ANGIOGRAPHY OF THE NECK: 1. No flow-limiting stenosis is seen of the carotids or vertebrals. Incidental findings as above. Woodworker: SHIRA Transcribe Date/Time: May 09 2019 7:10P Dictated by : DMITRY LUCIA MD This examination was interpreted and the report reviewed and electronically signed by: DMITRY LUCIA MD on May 09 2019 7:23PM EST Normal [facility] Troponin Ion 05-09-2019 Troponin I.cardiac [Mass/Vol] ng/mL Normal 0.015-0.04 5 [facility] Comment on above: Performed By: #### G FR #### [facility] [address] [place] [address] Hemogramon 05-09-2019 Erythrocyte distribution width (RBC) [Ratio] see below Normal 11.6-14.4 [facility] Comment on above: Result Comment: DISR EGARD RESULTS- SAMPLE INTEGRITY QUESTIONABLE CORRECTED: Previous result = 14.6, verified at 16:27 on 05/09/19. Performed By: #### G FR #### [place] [address] Hematocrit (Bld) [Volume fraction] see below Normal 40.1-51.0 [facility] Comment on above: Result Comment: DISR EGARD RESULTS- SAMPLE INTEGRITY QUESTIONABLE CORRECTED: Previous result = 35.1, verified at 16:27 on 05/09/19. Performed By: #### G FR #### [place] [address] Hemoglobin (Bld) [Mass/Vol] see below Normal 13.7-17.5 [facility] Comment on above: Result Comment: DISR EGARD RESULTS- SAMPLE INTEGRITY QUESTIONABLE CORRECTED: Previous result = 10.9, verified at 16:27 on 05/09/19. Performed By: #### G FR #### [place] [address] MCH (RBC) [Entitic mass] see below Normal 25.7-32.2 [facility] Comment on above: Result Comment: DISR EGARD RESULTS- SAMPLE INTEGRITY QUESTIONABLE CORRECTED: Previous result = 27.9, verified at 16:27 on 05/09/19. Performed By: #### G FR #### [place] [address] MCHC (RBC) [Mass/Vol] see below Normal 32.3-36.5 [facility] Comment on above: Result Comment: DISR EGARD RESULTS- SAMPLE INTEGRITY QUESTIONABLE CORRECTED: Previous result = 31.1, verified at 16:27 on 05/09/19. Performed By: #### G FR #### [facility] [address] [place] [address] MCV (RBC) [Entitic vol] see below Normal 83.2-95.6 [facility] Comment on above: Result Comment: DISR EGARD RESULTS- SAMPLE INTEGRITY QUESTIONABLE CORRECTED: Previous result = 89.8, verified at 16:27 on 05/09/19. Performed By: #### G FR #### [facility] [address] [place] [address] Platelet mean volume (Bld) [Entitic vol] see below Normal 8.7-12.0 [facility] Comment on above: Result Comment: DISR EGARD RESULTS- SAMPLE INTEGRITY QUESTIONABLE CORRECTED: Previous result = 10.6, verified at 16:27 on 05/09/19. Performed By: #### G FR #### [place] [address] Platelets (Bld) [#/Vol] see below Normal 141-365 [facility] Comment on above: Result Comment: DISR EGARD RESULTS- SAMPLE INTEGRITY QUESTIONABLE CORRECTED: Previous result = 218, verified at 16:27 on 05/09/19. Performed By: #### G FR #### [place] [address] RBC (Bld) [#/Vol] see below Normal 4.63-6.08 [facility] Comment on above: Result Comment: DISR EGARD RESULTS- SAMPLE INTEGRITY QUESTIONABLE CORRECTED: Previous result = 3.91, verified at 16:27 on 05/09/19. Performed By: #### G FR #### [address] [address] RDW SD see below Normal 36.1-45.8 [facility] Comment on above: Result Comment: DISR EGARD RESULTS- SAMPLE INTEGRITY QUESTIONABLE CORRECTED: Previous result = 47.7, verified at 16:27 on 05/09/19. Performed By: #### G FR #### [place] [id number] WBC (Bld) [#/Vol] see below Normal 4.23-9.07 [facility] Comment on above: Result Comment: DISR EGARD RESULTS- SAMPLE INTEGRITY QUESTIONABLE CORRECTED: Previous result = 8.73, verified at 16:27 on 05/09/19. Performed By: #### G FR #### [place] [address] Hemogram/Diffon 05-09-2019 Abs Immature Grans 0.05 thou/cmm Normal 0.00-0.05 [facility] Comment on above: Performed By: #### E RTRP #### [place] [address] Abs Neut (ANC) 5.92 thou/cmm High 1.78-5.38 [facility] Comment on above: Performed By: #### E RTRP #### [place] [address] Abs. Baso 0.03 thou/cmm Normal 0.01-0.08 [facility] Comment on above: Performed By: #### E RTRP #### [place] [address] Abs. Dane 0.42 thou/cmm Normal 0.30-0.82 [facility] Comment on above: Performed By: #### E RTRP #### [address] [address] Basophils/100 WBC (Bld) 0.4 % Normal [facility] Comment on above: Performed By: #### E RTRP #### [address] [address] Eosinophils (Bld) [#/Vol] 0.21 thou/cmm Normal 0.04-0.54 [facility] Comment on above: Performed By: #### E RTRP #### [place] [address] Eosinophils/100 WBC (Bld) 2.6 % Normal [facility] Comment on above: Performed By: #### E RTRP #### [facility] [address] [place], [place] [address] Erythrocyte distribution width (RBC) [Ratio] 14.6 % High 11.6-14.4 [facility] Comment on above: Performed By: #### E RTRP #### [facility] [address] [place] [address] Hematocrit (Bld) [Volume fraction] 33.6 % Low 40.1-51.0 [facility] Comment on above: Performed By: #### E RTRP #### [facility] [address] [place] [address] Hemoglobin (Bld) [Mass/Vol] 10.0 g/dL Low 13.7-17.5 [facility] Comment on above: Performed By: #### E RTRP #### [facility] [address] [place] [address] Immature Grans 0.60 % Normal [facility] Comment on above: Performed By: #### E RTRP #### [place] [address] Lymphocytes (Bld) [#/Vol] 1.47 thou/cmm Normal 0.84-2.85 [facility] Comment on above: Performed By: #### E RTRP #### [place] [address] Lymphocytes/100 WBC (Bld) 18.1 % Normal [facility] Comment on above: Performed By: #### E RTRP #### [facility] [address] [place] [address] MCH (RBC) [Entitic mass] 26.5 pg Normal 25.7-32.2 [facility] Comment on above: Performed By: #### E RTRP #### [facility] [address] [place] [address] MCHC (RBC) [Mass/Vol] 29.8 % Low 32.3-36.5 [facility] Comment on above: Performed By: #### E RTRP #### [facility] [address] [place] [address] MCV (RBC) [Entitic vol] 89.1 fL Normal 83.2-95.6 [facility] Comment on above: Performed By: #### E RTRP #### [facility] [address] [place], [place] [address] Monocytes/100 WBC (Bld) 5.2 % Normal [facility] Comment on above: Performed By: #### E RTRP #### [facility] [address] [place], [place] [address] Platelet mean volume (Bld) [Entitic vol] 9.4 fL Normal 8.7-12.0 [facility] Comment on above: Performed By: #### E RTRP #### [facility] [address] [place], [place] [address] Platelets (Bld) [#/Vol] 235 thou/cmm Normal 141-365 [facility] Comment on above: Performed By: #### E RTRP #### [facility] [address] [place] [address] RBC (Bld) [#/Vol] 3.77 mil/cmm Low 4.63-6.08 [facility] Comment on above: Performed By: #### E RTRP #### [facility] [address] [place] [address] RDW SD 47.0 fl High 36.1-45.8 [facility] Comment on above: Performed By: #### E RTRP #### [facility] [address] [place], [place] [address] Seg Neutrophil 73.1 % Normal [facility] Comment on above: Performed By: #### E RTRP #### [facility] [address] [place] [address] WBC (Bld) [#/Vol] 8.10 thou/cmm Normal 4.23-9.07 [facility] Comment on above: Performed By: #### E RTRP #### [facility] [address] [place] [address] MDRD GFRon 05-09-2019 GFR/1.73 sq M predicted among non-blacks MDRD (S/P/Bld) [Vol rate/Area] mL/min/{1.73_m2} Normal >60mL/min/ 1.73m2 [facility] Comment on above: Result Comment: If t he patient is , multiply the result by 1.210. Performed By: #### G FR #### [facility] [address] [place], [place] [address] Protimeon 05-09-2019 INR Coag (PPP) [Relative time] 0.95 {INR} Normal 0.90-1.30 [facility] Comment on above: Result Comment: Michelle min K Antagonist (VKA) Therapeutic Range: INR 2 to 3 (Target INR of 2.5) Note: For patients treated with VKA drugs, such as warfarin, the [place] [employer] 2012 Guideline recommends [...] Chest 2012; 141:7S-47S Hayder RA, et al. [facility] 2017; 70: 252-289 Performed By: #### E RTRP #### [facility] [address] [place], [place] [address] PT Coag (PPP) [Time] 10.3 s Normal 9.7-13.0 [facility] Comment on above: Performed By: #### E RTRP #### [facility] [address] [place], [place] [address] INR Coag (PPP) [Relative time] see below Normal 0.90-1.30 [facility] Comment on above: Result Comment: DISR EGARD RESULTS- SAMPLE INTEGRITY QUESTIONABLE CORRECTED: Previous result = 1.03, verified at 17:05 on 05/09/19. Vitamin K Antagonist (VKA) Therapeutic Range: INR 2 to 3 (Target INR of 2.5) Note: For patients treated with VKA drugs, such as warfarin, the [place] [employer] 2012 Guideline recommends [...] Chest 2012; 141:7S-47S Hayder RA et al. [facility] 2017; 70: 252-289 Performed By: #### G FR #### [place] [address] PT Coag (PPP) [Time] see below Normal 9.7-13.0 [facility] Comment on above: Result Comment: DISR EGARD RESULTS- SAMPLE INTEGRITY QUESTIONABLE CORRECTED: Previous result = 11.1, verified at 17:05 on 05/09/19. Performed By: #### G FR #### [place] [address] Basic Metabolic Panelon 12-0 Anion gap [Moles/Vol] 8 Normal [facility] Comment on above: Performed By: #### H EMOG, DDI2, BMP3, LIPA4, TROPN, BNP3 #### [address] Calcium [Mass/Vol] 8.5 mg/dL Normal 8.4-10.4 [facility] Comment on above: Performed By: #### H EMOG, DDI2, BMP3, LIPA4, TROPN, BNP3 #### [facility] [address] [place], [place] CO2 [Moles/Vol] 24 mmol/L Normal 22-30 [facility] Comment on above: Performed By: #### H EMOG, DDI2, BMP3, LIPA4, TROPN, BNP3 #### [facility] [address] [place], [place] Creatinine [Mass/Vol] 0.82 mg/dL Normal 0.52-1.25 [facility] Comment on above: Performed By: #### H EMOG, DDI2, BMP3, LIPA4, TROPN, BNP3 #### [facility] [address] [place] [address] GFR/1.73 sq M predicted among blacks MDRD (S/P/Bld) [Vol rate/Area] mL/min/{1.73_m2} Normal >60 [facility] Comment on above: Performed By: #### H EMOG, DDI2, BMP3, LIPA4, TROPN, BNP3 #### [place] [address] [address] [place], [place] GFR/1.73 sq M predicted among non-blacks MDRD (S/P/Bld) [Vol rate/Area] mL/min/{1.73_m2} Normal >60 [facility] Comment on above: Result Comment: Sour ce- MDRD equation with creatinine calibration to IDMS(NKDEP) eGFR not recommended for drug dose adjustment Performed By: #### H EMOG, DDI2, BMP3, LIPA4, TROPN, BNP3 #### [place] [address] [address] [place], [place] Glucose [Mass/Vol] 101 mg/dL High 70-100 [facility] Comment on above: Performed By: #### H EMOG, DDI2, BMP3, LIPA4, TROPN, BNP3 #### [place] [address] [place], [place] Urea nitrogen [Mass/Vol] 16 mg/dL Normal 7-20 [facility] Comment on above: Performed By: #### H EMOG, DDI2, BMP3, LIPA4, TROPN, BNP3 #### [place] [address] [address] [place], [place] Chloride [Moles/Vol] 106 mmol/L Normal 98-107 [facility] Comment on above: Performed By: #### H EMOG, DDI2, BMP3, LIPA4, TROPN, BNP3 #### [place] [address] [place] [address] Potassium [Moles/Vol] 4.0 mmol/L Normal 3.5-5.1 [facility] Comment on above: Performed By: #### H EMOG, DDI2, BMP3, LIPA4, TROPN, BNP3 #### [address] [address] Sodium [Moles/Vol] 138 mmol/L Normal 135-145 [facility] Comment on above: Performed By: #### H EMOG, DDI2, BMP3, LIPA4, TROPN, BNP3 #### [facility] [address] [place] [address] Anion gap [Moles/Vol] 8 mmol/L [place], [place] Calcium [Mass/Vol] 8.5 mg/dL 8.4 - 10. 4 mg/dL [place], [place] Chloride [Moles/Vol] 106 mmol/L 98 - 10 7 mmol/L [place] CO2 [Moles/Vol] 24 mmol/L 22 - 30 mmol/L [place] Creatinine [Mass/Vol] 0.82 mg/dL 0.52 - 1.25 mg/dL [place] EGFR IF NonAfrican [place] >60.0 >60 mL/min [place] Comment on above: Source- MDRD equatio n with creatinine calibration to IDMS(NKDEP) eGFR not recommended for drug dose adjustment GFR/1.73 sq M predicted among blacks MDRD (S/P/Bld) [Vol rate/Area] mL/min/{1.73_m2} >60 mL/min [place] Glucose [Mass/Vol] 101 mg/dL High 70 - 100 mg/dL [place] Interpretation and review of laboratory results Abnormal [place] Potassium [Moles/Vol] 4.0 mmol/L 3.5 - 5.1 mmol/L [place] Sodium [Moles/Vol] 138 mmol/L 135 - 145 mmol/L [place] Urea nitrogen [Mass/Vol] 16 mg/dL 7 - 20 mg/dL [place] Test Performed by [facility], [address] [place] [address] [place], [place] CBC Auto Differentialon 12-0 Absolute Baso # 0.1 10*3/uL 0 - 0.2 10*3/uL [place] Absolute Neut # 7.8 10*3/uL High 1.8 - 7 10*3/uL [place] Basophils/100 WBC (Bld) 0.5 % 0 - 2 % [place] Eosinophils (Bld) [#/Vol] 0.2 10*3/uL 0 - 0.5 10*3/uL [place] Eosinophils/100 WBC (Bld) 2.0 % 1 - 6 % [place] Erythrocyte distribution width (RBC) [Ratio] 15.1 % High 11.5 - 14.5 % [place] Granulocytes/100 WBC (Bld) 77.9 % 40 - 80 % [place] Hematocrit (Bld) [Volume fraction] 32.3 % Low 40 - 52 % [place] Hemoglobin (Bld) [Mass/Vol] 10.5 g/dL Low 13 - 18 g/dL [place] Interpretation and review of laboratory results Abnormal [place] Lymphocytes (Bld) [#/Vol] 1.4 10*3/uL 1 - 4.3 10*3/uL [place] Lymphocytes/100 WBC (Bld) 13.9 % Low 20 - 40 % [place] MCH (RBC) [Entitic mass] 27.2 pg 26 - 34 pg [place] MCHC (RBC) [Mass/Vol] 32.4 % 32 - 36 % [place], [place] MCV (RBC) [Entitic vol] 84.0 fL 80 - 98 fL [place] Monocytes (Bld) [#/Vol] 0.6 10*3/uL 0 - 0.8 10*3/uL [place] Monocytes/100 WBC (Bld) 5.7 % 2 - 10 % [place] Platelet mean volume (Bld) [Entitic vol] 7.3 fL Low 7.4 - 10.4 fL [place] Platelets (Bld) [#/Vol] 234 10*3/uL 140 - 440 10*3/uL [place] RBC (Bld) [#/Vol] 3.85 10*6/uL Low 4.4 - 5.9 10*6/uL [place] WBC (Bld) [#/Vol] 10.0 10*3/uL 3.6 - 10.7 10*3/uL [place] Test Performed by [facility], [address] [place] [id number] [place] [address] Hemogram w/ Autodiffon 05-08 Abs Baso Cnt 0.1 10*3/uL Normal 0.0-0.2 [facility] Comment on above: Performed By: #### H EMOG, DDI2, BMP3, LIPA4, TROPN, BNP3 #### [address] Abs Neutrophile Cnt 7.8 10*3/uL High 1.8-7.0 [facility] Comment on above: Performed By: #### H EMOG, DDI2, BMP3, LIPA4, TROPN, BNP3 #### [address] [address] Basophils/100 WBC (Bld) 0.5 % Normal 0.0-2.0 [facility] Comment on above: Performed By: #### H EMOG, DDI2, BMP3, LIPA4, TROPN, BNP3 #### [address] [address] Eosinophils (Bld) [#/Vol] 0.2 10*3/uL Normal 0.0-0.5 [facility] Comment on above: Performed By: #### H EMOG, DDI2, BMP3, LIPA4, TROPN, BNP3 #### [address] [address] Eosinophils/100 WBC (Bld) 2.0 % Normal 1.0-6.0 [facility] Comment on above: Performed By: #### H EMOG, DDI2, BMP3, LIPA4, TROPN, BNP3 #### [place] [address] [address] [place], [place] Erythrocyte distribution width (RBC) [Ratio] 15.1 % High 11.5-14.5 [facility] Comment on above: Performed By: #### H EMOG, DDI2, BMP3, LIPA4, TROPN, BNP3 #### [address] Granulocytes/100 WBC (Bld) 77.9 % Normal 40.0-80.0 [facility] Comment on above: Performed By: #### H EMOG, DDI2, BMP3, LIPA4, TROPN, BNP3 #### [address] Hematocrit (Bld) [Volume fraction] 32.3 % Low 40.0-52.0 [facility] Comment on above: Performed By: #### H EMOG, DDI2, BMP3, LIPA4, TROPN, BNP3 #### [address] Hemoglobin (Bld) [Mass/Vol] 10.5 g/dL Low 13.0-18.0 [facility] Comment on above: Performed By: #### H EMOG, DDI2, BMP3, LIPA4, TROPN, BNP3 #### [address] Lymphocytes (Bld) [#/Vol] 1.4 10*3/uL Normal 1.0-4.3 [facility] Comment on above: Performed By: #### H EMOG, DDI2, BMP3, LIPA4, TROPN, BNP3 #### [address] Lymphocytes/100 WBC (Bld) 13.9 % Low 20.0-40.0 [facility] Comment on above: Performed By: #### H EMOG, DDI2, BMP3, LIPA4, TROPN, BNP3 #### [address] MCH (RBC) [Entitic mass] 27.2 pg Normal 26.0-34.0 [facility] Comment on above: Performed By: #### H EMOG, DDI2, BMP3, LIPA4, TROPN, BNP3 #### [address] MCHC (RBC) [Mass/Vol] 32.4 % Normal 32.0-36.0 [facility] Comment on above: Performed By: #### H EMOG, DDI2, BMP3, LIPA4, TROPN, BNP3 #### [address] MCV (RBC) [Entitic vol] 84.0 fL Normal 80.0-98.0 [facility] Comment on above: Performed By: #### H EMOG, DDI2, BMP3, LIPA4, TROPN, BNP3 #### [address] Monocytes (Bld) [#/Vol] 0.6 10*3/uL Normal 0.0-0.8 [facility] Comment on above: Performed By: #### H EMOG, DDI2, BMP3, LIPA4, TROPN, BNP3 #### [address] Monocytes/100 WBC (Bld) 5.7 % Normal 2.0-10.0 [facility] Comment on above: Performed By: #### H EMOG, DDI2, BMP3, LIPA4, TROPN, BNP3 #### [address] Platelet mean volume (Bld) [Entitic vol] 7.3 fL Low 7.4-10.4 [facility] Comment on above: Performed By: #### H EMOG, DDI2, BMP3, LIPA4, TROPN, BNP3 #### [address] Platelets (Bld) [#/Vol] 234 10*3/uL Normal 140-440 [facility] Comment on above: Performed By: #### H EMOG, DDI2, BMP3, LIPA4, TROPN, BNP3 #### [facility] [address] [place], [place] RBC (Bld) [#/Vol] 3.85 10*6/uL Low 4.40-5.90 [facility] Comment on above: Performed By: #### H EMOG, DDI2, BMP3, LIPA4, TROPN, BNP3 #### [place] [address] [address] [place], [place] WBC (Bld) [#/Vol] 10.0 10*3/uL Normal 3.6-10.7 [facility] Comment on above: Performed By: #### H EMOG, DDI2, BMP3, LIPA4, TROPN, BNP3 #### [address] Basic Metabolic Panelon Anion gap [Moles/Vol] 11 Normal [facility] Comment on above: Performed By: #### H EMOG, DDI2, BMP3, LIPA4, TROPN, BNP3 #### [place] [address] [address] [place], [place] GFR/1.73 sq M predicted among non-blacks MDRD (S/P/Bld) [Vol rate/Area] mL/min/{1.73_m2} Normal >60 [facility] Comment on above: Result Comment: Sour ce- MDRD equation with creatinine calibration to IDMS(NKDEP) eGFR not recommended for drug dose adjustment Performed By: #### H EMOG, DDI2, BMP3, LIPA4, TROPN, BNP3 #### [place] [address] [address] [place], [place] CBCon 05-07-2019 Erythrocyte distribution width (RBC) [Ratio] 15.8 % High 11.5 - 14.5 % [place] Hematocrit (Bld) [Volume fraction] 33.1 % Low 40 - 52 % [place] Hemoglobin (Bld) [Mass/Vol] 10.6 g/dL Low 13 - 18 g/dL [place] Interpretation and review of laboratory results Abnormal [place] MCH (RBC) [Entitic mass] 26.9 pg 26 - 34 pg [place] MCHC (RBC) [Mass/Vol] 32.1 % 32 - 36 % [place] MCV (RBC) [Entitic vol] 83.9 fL 80 - 98 fL [place] Platelet mean volume (Bld) [Entitic vol] 7.7 fL 7.4 - 10.4 fL [place] Platelets (Bld) [#/Vol] 240 10*3/uL 140 - 440 10*3/uL [place] RBC (Bld) [#/Vol] 3.94 10*6/uL Low 4.4 - 5.9 10*6/uL [place] WBC (Bld) [#/Vol] 12.2 10*3/uL High 3.6 - 10.7 10*3/uL [place] Test Performed by [facility], [address] [place] [id number] [place] [address] EKG 12 Lead - Chest Painon 1 07-08-2018 [facility] Incoming Cardiology Results From [facility] - 05/07/2019 9:33 AM EST [facility] Test Date: 2019-05-06 Pat Name: Natalie Buzz Department: [facility] Room: [facility] Gender: M Undercover Operator: JOSE R/YUMI : 1960 Requested By: ASHA SINGH Order Number: [id number] Reading MD: Miguel Angel Omer Measurements Intervals [place] Rate: 71 P: 27 [place]: 155 QRS: 23 QRSD: 85 T: 88 QT: 409 QTc: 445 Interpretive Statements Sinus rhythm Low voltage, precordial leads Abnormal R-wave progression, early transition Electronically Signed On 05-07-2019 9:32:55 EST by Miguel Angel Omer [facility] Test Date: 2019-05-06 Pat Name: Natalie Buzz Department: [facility] Room: 1522 Gender: M Undercover Operator: JOSE R/MM : 1960 Requested By: ASHA SINGH Order Number: [id number] Reading MD: Miguel Angel Omer Measurements Intervals [place] Rate: 71 P: 27 [place]: 155 QRS: 23 QRSD: 85 T: 88 QT: 409 QTc: 445 Interpretive Statements Sinus rhythm Low voltage, precordial leads Abnormal R-wave progression, early transition Electronically Signed On 05-07-2019 9:32:55 EST by Miguel Angel Omer [facility], [place] Hemogramon 05-07-2019 Erythrocyte distribution width (RBC) [Ratio] 15.8 % High 11.5-14.5 [facility] Comment on above: Performed By: #### H EMOG, DDI2, BMP3, LIPA4, TROPN, BNP3 #### [address] Hematocrit (Bld) [Volume fraction] 33.1 % Low 40.0-52.0 [facility] Comment on above: Performed By: #### H EMOG, DDI2, BMP3, LIPA4, TROPN, BNP3 #### [address] [address] [place], [place] Hemoglobin (Bld) [Mass/Vol] 10.6 g/dL Low 13.0-18.0 [facility] Comment on above: Performed By: #### H EMOG, DDI2, BMP3, LIPA4, TROPN, BNP3 #### [address] MCH (RBC) [Entitic mass] 26.9 pg Normal 26.0-34.0 [facility] Comment on above: Performed By: #### H EMOG, DDI2, BMP3, LIPA4, TROPN, BNP3 #### [address] MCHC (RBC) [Mass/Vol] 32.1 % Normal 32.0-36.0 [facility] Comment on above: Performed By: #### H EMOG, DDI2, BMP3, LIPA4, TROPN, BNP3 #### [address] MCV (RBC) [Entitic vol] 83.9 fL Normal 80.0-98.0 [facility] Comment on above: Performed By: #### H EMOG, DDI2, BMP3, LIPA4, TROPN, BNP3 #### [address] Platelet mean volume (Bld) [Entitic vol] 7.7 fL Normal 7.4-10.4 [facility] Comment on above: Performed By: #### H EMOG, DDI2, BMP3, LIPA4, TROPN, BNP3 #### [address] Platelets (Bld) [#/Vol] 240 10*3/uL Normal 140-440 [facility] Comment on above: Performed By: #### H EMOG, DDI2, BMP3, LIPA4, TROPN, BNP3 #### [address] RBC (Bld) [#/Vol] 3.94 10*6/uL Low 4.40-5.90 [facility] Comment on above: Performed By: #### H EMOG, DDI2, BMP3, LIPA4, TROPN, BNP3 #### [address] WBC (Bld) [#/Vol] 12.2 10*3/uL High 3.6-10.7 [facility] Comment on above: Performed By: #### H EMOG, DDI2, BMP3, LIPA4, TROPN, BNP3 #### [address] Hepatic Functionon 9 Bilirubin [Mass/Vol] 0.7 mg/dL Normal 0.2-1.3 [facility] Comment on above: Performed By: #### H EMOG, DDI2, BMP3, LIPA4, TROPN, BNP3 #### [address] NT pro BNPon 05-07-2019 Natriuretic peptide B (Bld) [Mass/Vol] 51 pg/mL Normal 0-125 [facility] Comment on above: Performed By: #### H EMOG, DDI2, BMP3, LIPA4, TROPN, BNP3 #### [address] Troponinon 05-07-2019 Troponin I.cardiac [Mass/Vol] ng/mL 0 - 0.034 ng/mL [place] Comment on above: . Test Performed by [facility], [address] [place] [address] [place], [place] Troponin Ion 05-07-2019 Troponin I.cardiac [Mass/Vol] ng/mL Normal 0.000-0.03 4 [facility] Comment on above: Result Comment: . Performed By: #### H EMOG, DDI2, BMP3, LIPA4, TROPN, BNP3 #### [address] Troponin I.cardiac [Mass/Vol] ng/mL Normal 0.000-0.03 4 [facility] Comment on above: Result Comment: . Performed By: #### H EMOG, DDI2, BMP3, LIPA4, TROPN, BNP3 #### [address] Basic Metabolic Panelon 12 Potassium [Moles/Vol] 4.3 mmol/L Normal 3.5-5.1 [facility] Comment on above: Performed By: #### H EMOG, DDI2, BMP3, LIPA4, TROPN, BNP3 #### [address] Chloride [Moles/Vol] 104 mmol/L Normal 98-107 [facility] Comment on above: Performed By: #### H EMOG, DDI2, BMP3, LIPA4, TROPN, BNP3 #### [address] Sodium [Moles/Vol] 141 mmol/L Normal 135-145 [facility] Comment on above: Performed By: #### H EMOG, DDI2, BMP3, LIPA4, TROPN, BNP3 #### [address] Calcium [Mass/Vol] 9.4 mg/dL Normal 8.4-10.4 [place] Comment on above: Performed By: #### H EMOG, DDI2, BMP3, LIPA4, TROPN, BNP3 #### [address] [address] [place] CO2 [Moles/Vol] 26 mmol/L Normal 22-30 [place] Comment on above: Performed By: #### H EMOG, DDI2, BMP3, LIPA4, TROPN, BNP3 #### [address] Creatinine [Mass/Vol] 0.75 mg/dL Normal 0.52-1.25 [place], [place] Comment on above: Performed By: #### H EMOG, DDI2, BMP3, LIPA4, TROPN, BNP3 #### [address] GFR/1.73 sq M predicted among blacks MDRD (S/P/Bld) [Vol rate/Area] mL/min/{1.73_m2} Normal >60 [place] Comment on above: Performed By: #### H EMOG, DDI2, BMP3, LIPA4, TROPN, BNP3 #### [address] Glucose [Mass/Vol] 108 mg/dL High 70-100 [place] Comment on above: Performed By: #### H EMOG, DDI2, BMP3, LIPA4, TROPN, BNP3 #### [address] Urea nitrogen [Mass/Vol] 13 mg/dL Normal 7-20 [place] Comment on above: Performed By: #### H EMOG, DDI2, BMP3, LIPA4, TROPN, BNP3 #### [address] [address] [place] Anion gap [Moles/Vol] 11 mmol/L [place] Chloride [Moles/Vol] 104 mmol/L 98 - 10 7 mmol/L [place] EGFR IF NonAfrican Green[place]ic >60.0 >60 mL/min [place] Comment on above: Source- MDRD equatio n with creatinine calibration to IDMS(NKDEP) eGFR not recommended for drug dose adjustment Potassium [Moles/Vol] 4.3 mmol/L 3.5 - 5.1 mmol/L [place] Sodium [Moles/Vol] 141 mmol/L 135 - 145 mmol/L [place] Brain Natriuretic Peptideon 05-06-2019 Natriuretic peptide B (Bld) [Mass/Vol] 51 pg/mL 0 - 125 pg/mL [place] CR Chest Portableon 05-06-20 19 CR Chest Portable Patient Name: NATALIE GERBER Diagnostic Radiology Exam Date/Time 05/06/2019 20:57:29 EST Exam CR Chest Portable Ordering Physician MD SAMANTHA, [facility] Accession Number [id number] CPT4 Codes 79350 () Reason For Exam CP Report CLINICAL [...] Transcribed Date and Time: 05/06/2019 9:12 Normal [facility] Hemogram (CBC) w/Auto Diffon 05-06-2019 Absolute Baso # 0.1 10*3/uL 0 - 0.2 10*3/uL [place] Absolute Neut # 8.4 10*3/uL High 1.8 - 7 10*3/uL [place] Basophils/100 WBC (Bld) 1.2 % 0 - 2 % [place] Eosinophils (Bld) [#/Vol] 0.2 10*3/uL 0 - 0.5 10*3/uL [place] Eosinophils/100 WBC (Bld) 1.4 % 1 - 6 % [place] Erythrocyte distribution width (RBC) [Ratio] 15.6 % High 11.5 - 14.5 % [place] Granulocytes/100 WBC (Bld) 75.0 % 40 - 80 % [place] Hematocrit (Bld) [Volume fraction] 35.9 % Low 40 - 52 % [place] Hemoglobin (Bld) [Mass/Vol] 11.5 g/dL Low 13 - 18 g/dL [place] Interpretation and review of laboratory results Abnormal [place] Lymphocytes (Bld) [#/Vol] 2.0 10*3/uL 1 - 4.3 10*3/uL [place] Lymphocytes/100 WBC (Bld) 17.6 % Low 20 - 40 % [place] MCH (RBC) [Entitic mass] 27.2 pg 26 - 34 pg [place] MCHC (RBC) [Mass/Vol] 32.1 % 32 - 36 % [place] MCV (RBC) [Entitic vol] 84.8 fL 80 - 98 fL [place] Monocytes (Bld) [#/Vol] 0.5 10*3/uL 0 - 0.8 10*3/uL [place] Monocytes/100 WBC (Bld) 4.8 % 2 - 10 % [place] Platelet mean volume (Bld) [Entitic vol] 7.7 fL 7.4 - 10.4 fL [place] Platelets (Bld) [#/Vol] 286 10*3/uL 140 - 440 10*3/uL [place] RBC (Bld) [#/Vol] 4.24 10*6/uL Low 4.4 - 5.9 10*6/uL [place] WBC (Bld) [#/Vol] 11.1 10*3/uL High 3.6 - 10.7 10*3/uL [facility], [place] Test Performed by [facility], [address] [place] [address] [place], [place] Hemogram w/ Autodiffon 05-06 Abs Baso Cnt 0.1 10*3/uL Normal 0.0-0.2 [facility] Comment on above: Performed By: #### H EMOG, DDI2, BMP3, LIPA4, TROPN, BNP3 #### [address] Abs Neutrophile Cnt 8.4 10*3/uL High 1.8-7.0 [facility] Comment on above: Performed By: #### H EMOG, DDI2, BMP3, LIPA4, TROPN, BNP3 #### [address] Basophils/100 WBC (Bld) 1.2 % Normal 0.0-2.0 [facility] Comment on above: Performed By: #### H EMOG, DDI2, BMP3, LIPA4, TROPN, BNP3 #### [address] Eosinophils (Bld) [#/Vol] 0.2 10*3/uL Normal 0.0-0.5 [facility] Comment on above: Performed By: #### H EMOG, DDI2, BMP3, LIPA4, TROPN, BNP3 #### [address] Eosinophils/100 WBC (Bld) 1.4 % Normal 1.0-6.0 [facility] Comment on above: Performed By: #### H EMOG, DDI2, BMP3, LIPA4, TROPN, BNP3 #### [address] Erythrocyte distribution width (RBC) [Ratio] 15.6 % High 11.5-14.5 [facility] Comment on above: Performed By: #### H EMOG, DDI2, BMP3, LIPA4, TROPN, BNP3 #### [address] [address] [place] Granulocytes/100 WBC (Bld) 75.0 % Normal 40.0-80.0 [facility] Comment on above: Performed By: #### H EMOG, DDI2, BMP3, LIPA4, TROPN, BNP3 #### [address] Hematocrit (Bld) [Volume fraction] 35.9 % Low 40.0-52.0 [facility] Comment on above: Performed By: #### H EMOG, DDI2, BMP3, LIPA4, TROPN, BNP3 #### [address] Hemoglobin (Bld) [Mass/Vol] 11.5 g/dL Low 13.0-18.0 [facility] Comment on above: Performed By: #### H EMOG, DDI2, BMP3, LIPA4, TROPN, BNP3 #### [address] Lymphocytes (Bld) [#/Vol] 2.0 10*3/uL Normal 1.0-4.3 [facility] Comment on above: Performed By: #### H EMOG, DDI2, BMP3, LIPA4, TROPN, BNP3 #### [address] Lymphocytes/100 WBC (Bld) 17.6 % Low 20.0-40.0 [facility] Comment on above: Performed By: #### H EMOG, DDI2, BMP3, LIPA4, TROPN, BNP3 #### [address] MCH (RBC) [Entitic mass] 27.2 pg Normal 26.0-34.0 [facility] Comment on above: Performed By: #### H EMOG, DDI2, BMP3, LIPA4, TROPN, BNP3 #### [address] MCHC (RBC) [Mass/Vol] 32.1 % Normal 32.0-36.0 [facility] Comment on above: Performed By: #### H EMOG, DDI2, BMP3, LIPA4, TROPN, BNP3 #### [address] MCV (RBC) [Entitic vol] 84.8 fL Normal 80.0-98.0 [facility] Comment on above: Performed By: #### H EMOG, DDI2, BMP3, LIPA4, TROPN, BNP3 #### [address] Monocytes (Bld) [#/Vol] 0.5 10*3/uL Normal 0.0-0.8 [facility] Comment on above: Performed By: #### H EMOG, DDI2, BMP3, LIPA4, TROPN, BNP3 #### [address] Monocytes/100 WBC (Bld) 4.8 % Normal 2.0-10.0 [facility] Comment on above: Performed By: #### H EMOG, DDI2, BMP3, LIPA4, TROPN, BNP3 #### [address] Platelet mean volume (Bld) [Entitic vol] 7.7 fL Normal 7.4-10.4 [facility] Comment on above: Performed By: #### H EMOG, DDI2, BMP3, LIPA4, TROPN, BNP3 #### [address] Platelets (Bld) [#/Vol] 286 10*3/uL Normal 140-440 [facility] Comment on above: Performed By: #### H EMOG, DDI2, BMP3, LIPA4, TROPN, BNP3 #### [address] RBC (Bld) [#/Vol] 4.24 10*6/uL Low 4.40-5.90 [facility] Comment on above: Performed By: #### H EMOG, DDI2, BMP3, LIPA4, TROPN, BNP3 #### [address] [address] [place] WBC (Bld) [#/Vol] 11.1 10*3/uL High 3.6-10.7 [facility] Comment on above: Performed By: #### H EMOG, DDI2, BMP3, LIPA4, TROPN, BNP3 #### [address] [address] [place] Hepatic Functionon 9 Albumin [Mass/Vol] 4.4 g/dL Normal 3.5-5.0 [facility] Comment on above: Performed By: #### H EMOG, DDI2, BMP3, LIPA4, TROPN, BNP3 #### [address] [address] [place] ALP [Catalytic activity/Vol] 136 U/L High 38-126 [place] Comment on above: Performed By: #### H EMOG, DDI2, BMP3, LIPA4, TROPN, BNP3 #### [address] [address] [place] ALT [Catalytic activity/Vol] 15 U/L Normal 13-69 [place] Comment on above: Performed By: #### H EMOG, DDI2, BMP3, LIPA4, TROPN, BNP3 #### [address] [address] [place] AST [Catalytic activity/Vol] 34 U/L Normal 15-46 [place] Comment on above: Performed By: #### H EMOG, DDI2, BMP3, LIPA4, TROPN, BNP3 #### [address] [address] [place] Bilirubin.direct [Mass/Vol] 0.0 mg/dL Normal 0.0-0.3 [place] Comment on above: Performed By: #### H EMOG, DDI2, BMP3, LIPA4, TROPN, BNP3 #### [address] [address] [place] Protein [Mass/Vol] 8.5 g/dL High 6.3-8.2 [place] Comment on above: Performed By: #### H EMOG, DDI2, BMP3, LIPA4, TROPN, BNP3 #### [address] [address] [place] [address] Hepatic Function Panelon Albumin [Mass/Vol] 4.4 g/dL 3.5 - 5 g/dL [place] Bilirubin Ql (U) 0.7 mg/dL 0.2 - 1.3 mg/dL [place] Otheron 05-06-2019 Test Performed by [address] Interpretation and review of laboratory results Abnormal [place] Test Performed by [id number] [place] [address] Troponin x1on 05-06-2019 Troponin I.cardiac [Mass/Vol] ng/mL 0 - 0.034 ng/mL [place] Comment on above: . XR CHEST PORTABLEon 05-06-20 19 [facility] Incoming Radiology Results From [facility] - 05/06/2019 9:15 PM EST Patient Name: NATALIE GERBER ---Diagnostic Radiology--- Exam Date/Time 05/06/2019 20:57:29 EST Exam CR Chest Portable Ordering Physician MD SAMANTHA, [facility] Accession Number [id number] CPT4 Codes 16512 () Reason For Exam CP Report CLINICAL [...] HARLAN Transcribed Date and Time: 05/06/2019 9:12 [place] Patient Name: NATALIE GERBER ---Diagnostic Radiology--- Exam Date/Time 05/06/2019 20:57:29 EST Exam CR Chest Portable Ordering Physician MD SAMANTHA, [facility] Accession Number [id number] CPT4 Codes 56973 () Reason For Exam CP Report CLINICAL [...] HARLAN Transcribed Date and Time: 05/06/2019 9:12 [place] XR Chest 2 view-PA & LATon [...] MATILDA NASH MD Date: 05/06/2019 01:44 Normal [facility] HS TROPONIN Ton 05-05-2019 Troponin T.cardiac [Mass/Vol] Normal 0-4 [facility] Comment on above: Result Comment: 6 [...] administration. Performed By: #### H STROP #### [address] [address] Result Comment: 0 Performed at [address] [address] CBC with Diffon 05-04-2019 AB IMMATURE NEUT 0.07 K/UL Normal 0.0-0.1 [facility] Comment on above: Performed By: #### C BCD #### [address] [address] ABS BASO 0.06 K/UL Normal 0.00-0.22 [facility] Comment on above: Performed By: #### C BCD #### [facility] [address] [address] ABS EOS 0.17 K/UL Normal 0-0.45 [facility] Comment on above: Performed By: #### C BCD #### [facility] [address] [address] ABS NEUTROPHILS 7.42 K/UL Normal 1.8-7.7 [facility] Comment on above: Performed By: #### C BCD #### [facility] [address] [address] ABS.NEUT.CALCULATED Normal [facility] Comment on above: Result Comment: 7.42 Performed at [address] [address] Performed By: #### C BCD #### [facility] [address] [address] Basophils/100 WBC (Bld) 0.60 % Normal 0-1 [facility] Comment on above: Performed By: #### C BCD #### [facility] [address] [place] [address] DIFF TYPE AUTO DIFF Normal [facility] Comment on above: Performed By: #### C BCD #### [address] [address] [place] [address] Eosinophils/100 WBC (Bld) 1.60 % Normal 0-3 [facility] Comment on above: Performed By: #### C BCD #### [address] [address] [place] [address] Erythrocyte distribution width (RBC) [Ratio] 14.4 % Normal 11.7-15.0 [facility] Comment on above: Performed By: #### C BCD #### [address] [address] [place] [address] Hematocrit (Bld) [Volume fraction] 38.6 % Low 41-50 [facility] Comment on above: Performed By: #### C BCD #### [address] [address] [place] [address] Hemoglobin (Bld) [Mass/Vol] 11.8 g/dL Low 13.5-16.5 [facility] Comment on above: Performed By: #### C BCD #### [address] [address] [place] [address] Lymphocytes (Bld) [#/Vol] 2.29 10*3/uL Normal 1.2-3.2 [facility] Comment on above: Performed By: #### C BCD #### [address] [address] [place] [address] Lymphocytes/100 WBC (Bld) 21.90 % Normal 20-40 [facility] Comment on above: Performed By: #### C BCD #### [address] [address] [place] [address] MCH (RBC) [Entitic mass] 27.1 pg Normal 26-34 [facility] Comment on above: Performed By: #### C BCD #### [address] [address] [place] [address] MCHC (RBC) [Mass/Vol] 30.6 % Low 31-37 [facility] Comment on above: Performed By: #### C BCD #### [facility] [address] [address] [place] [address] MCV (RBC) [Entitic vol] 88.5 fL Normal 80-100 [facility] Comment on above: Performed By: #### C BCD #### [facility] [address] [address] [place] [address] MEAN PLT VOL 9.8 CU Normal 7.0-12.6 [facility] Comment on above: Performed By: #### C BCD #### [facility] [address] [address] [place] [address] Monocytes (Bld) [#/Vol] 0.46 10*3/uL Normal 0-0.8 [facility] Comment on above: Performed By: #### C BCD #### [address] [address] [place] [address] Monocytes/100 WBC (Bld) 4.40 % Normal 0-8 [facility] Comment on above: Performed By: #### C BCD #### [facility] [address] [address] [place] [address] Neutrophils/100 WBC (Bld) 70.80 % High 50-70 [facility] Comment on above: Performed By: #### C BCD #### [address] [address] [place] [address] Neutrophils/100 WBC (Bld) 0.70 % Normal 0.0-1.0 [facility] Comment on above: Performed By: #### C BCD #### [facility] [address] [address] [place] [address] NRBC'S 0 /100 WBC Normal 0 [facility] Comment on above: Performed By: #### C BCD #### [facility] [address] [address] [place] [address] Platelets (Bld) [#/Vol] 272 10*3/uL Normal 150-450 [facility] Comment on above: Performed By: #### C BCD #### [facility] [address] [address] [place] [address] RBC (Bld) [#/Vol] 4.36 M/UL Low 4.5-5.5 [facility] Comment on above: Performed By: #### C BCD #### [address] [address] [address] [place] [address] RDW-SD 46.0 FL Normal 37.0-54.0 [facility] Comment on above: Performed By: #### C BCD #### [address] [address] WBC (Bld) [#/Vol] 10.5 10*3/uL Normal 4.5-11.0 [facility] Comment on above: Performed By: #### C BCD #### [address] [address] CHEST 2 VIEWon 05-04-2019 CHEST 2 VIEW *FINAL Date of Service: 05/04/2019 21:06 Adm #: [id number] Reading Dr:YULY JACKSON Signoff Dr: YULY JACKSON PROCEDURE: CHEST 2 VIEW - WXR 0020 REASON FOR EXAM: cp RESULT: Clinical Data: Chest pain. Number of films: Two-view radiographs of the chest were obtained . Comparison: None. The heart and mediastinum are normal. The lungs are clear. No pleural effusions are seen. Degenerative changes involve the thoracic spine. Impression: No cardiopulmonary disease. [id number] This report has been produced using speech recognition. Original Interpreting Physician: YULY JACKSON M.D. Original Transcribed by/Date[facility] May 04 2019 9:22P Original Electronically Signed by/Date: YULY JACKSON M.D. May 04 2019 9:22P Addendum Interpreting Physician: Addendum Transcribed by/Date: NO ADDENDUM Addendum Electronically Signed by/Date: Normal [facility] COMPREHENSIVE METABOLIC PANE [place] 05-04-2019 Albumin [Mass/Vol] 4.2 g/dL Normal 3.5-5.0 [facility] Comment on above: Performed By: #### C AIRCRAFT TECHNICIAN #### [address] [address] Albumin/Globulin [Mass ratio] 1.1 {ratio} Low 1.5-3.0 [facility] Comment on above: Performed By: #### C AIRCRAFT TECHNICIAN #### Main Laboratory [facility] [address] [place] [address] ALP [Catalytic activity/Vol] 166 U/L High 35-125 [facility] Comment on above: Performed By: #### C AIRCRAFT TECHNICIAN #### [facility] [address] [place] [address] ALT [Catalytic activity/Vol] 5 U/L Normal 5-40 [facility] Comment on above: Performed By: #### C AIRCRAFT TECHNICIAN #### [facility] [address] [place] [address] Anion gap [Moles/Vol] 14 mmol/L Normal 0-19 [facility] Comment on above: Performed By: #### C AIRCRAFT TECHNICIAN #### [facility] [address] [place] [address] AST [Catalytic activity/Vol] 13 U/L Normal 5-40 [facility] Comment on above: Performed By: #### C AIRCRAFT TECHNICIAN #### [facility] [address] [place] [address] Bilirubin [Mass/Vol] 0.4 mg/dL Normal 0.1-1.2 [facility] Comment on above: Performed By: #### C AIRCRAFT TECHNICIAN #### [facility] [address] [place] [address] Calcium [Mass/Vol] 9.4 mg/dL Normal 8.5-10.4 [facility] Comment on above: Performed By: #### C AIRCRAFT TECHNICIAN #### [facility] [address] [place] [address] Chloride [Moles/Vol] 96 mmol/L Low 97-107 [facility] Comment on above: Performed By: #### C AIRCRAFT TECHNICIAN #### [facility] [address] [place] [address] CO2 [Moles/Vol] 24 mmol/L Normal 24-31 [facility] Comment on above: Performed By: #### C AIRCRAFT TECHNICIAN #### Main Laboratory [facility] [address] [place] [address] Creatinine [Mass/Vol] 0.8 mg/dL Normal 0.4-1.6 [facility] Comment on above: Performed By: #### C AIRCRAFT TECHNICIAN #### [facility] [address] [address] GFR/1.73 sq M.predicted MDRD (S/P/Bld) [Vol rate/Area] Normal [facility] Comment on above: Result Comment: 106 GFR ml/min/1.73m2 Stage ----- 90 1 60-89 2 30-59 3 15-29 4 <15 5 For -Americans, multiply EGFR result by 1.210 Calculation not validated for patients under 18 years of age. Performed at [address] [place] [address] Performed By: #### C AIRCRAFT TECHNICIAN #### [address] [address] Globulin (S) [Mass/Vol] 3.8 g/dL High 1.9-3.7 [facility] Comment on above: Performed By: #### C AIRCRAFT TECHNICIAN #### [address] [address] Glucose [Mass/Vol] 102 mg/dL High 65-99 [facility] Comment on above: Performed By: #### C AIRCRAFT TECHNICIAN #### [address] [address] Potassium [Moles/Vol] 3.8 mmol/L Normal 3.4-5.1 [facility] Comment on above: Performed By: #### C AIRCRAFT TECHNICIAN #### [address] [address] Protein [Mass/Vol] 8.0 g/dL High 5.9-7.9 [facility] Comment on above: Performed By: #### C AIRCRAFT TECHNICIAN #### [address] [address] Sodium [Moles/Vol] 134 mmol/L Normal 133-145 [facility] Comment on above: Performed By: #### C AIRCRAFT TECHNICIAN #### [address] [address] Urea nitrogen [Mass/Vol] 10 mg/dL Normal 8-25 [facility] Comment on above: Performed By: #### C AIRCRAFT TECHNICIAN #### [facility] [address] [address] Urea nitrogen/Creatinine [Mass ratio] 12.5 RATIO Normal 8-21 [facility] Comment on above: Performed By: #### C AIRCRAFT TECHNICIAN #### [facility] [address] [address] HS TROPONIN Ton 05-04-2019 Troponin T.cardiac [Mass/Vol] Normal <15 [facility] Comment on above: Result Comment: No p revious result Performed at [address] [address] Performed By: #### H STROP #### [facility] [address] [address] Result Comment: 6 LESS THAN Sex Specific [...] LIPASE PSon 05-04-2019 LIPASE PS Low 16-63 [facility] Comment on above: Result Comment: 12 Performed at [address] [address] Performed By: #### L IPS #### [facility] [address] [address] Export-Referral Informati onon 03-30-2019 Export-Referral Information Patient: NATALIE GERBER Age: 59 years Sex: Male : 1960 Associated Diagnoses: None Author: ALLEGRA LUCERO, CAIO Export - Referral Information Patient Information Pt referred to: Assisted Facility Attending Physician Info: Dr. Barlow Observation [...] Admissions past 60d: Yes Recent Admission Location: [facility] I certify that inpatient care is required at the level recommended. To the best of my knowledge, all information provided about the individual is a true and accurate reflection of the individual's condition. Normal [facility] Nursing Clinical Noteon 10-2 Nursing Clinical Note 1910:Bedside repor t received from day shift RN. Pt to be transported to [facility] in [facility] P/U scheduled for 1929. Will continue to monitor Normal [facility] Nursing Clinical Note 1500: absorbed pat ient from [facility] patient is a&ox3 in stable condition patient complains of chronic back pain assessment complete lungs sounds clear, bowel sounds present patient will be discharged to [facility] safety maintained 1620: report called to PIA Arredondo at [facility] patient will be picked up at 1930. Normal [facility] Nursing Clinical Note 0845: Pt sitting u [...] pain and left hand pain 12/09. Normal [facility] Utilization Review Noteon Utilization Review Note Pending authoriztion. awaiting for placement. Normal [facility] Export-Referral Informati onon 03-29-2019 Export-Referral Information Patient: NATALIE GERBER Age: 59 years Sex: Male : 1960 Associated Diagnoses: None Author: KATIE LUCERO, MALCOLM Export - Referral Information Patient InformationPt referred to: Assisted Facility Attending Physician Info: Dr. Barlow Observation [...] Admissions past 60d: Yes [facility] at the level recommended. To the best of my knowledge, all information provided about the individual is a true and accurate reflection of the individual's condition. Normal [facility] Nursing Clinical Noteon 03-03 Nursing Clinical Note 1920: Bedside repo rt received from day shift RN. Pt sitting on side of bed watching TV. Pt c/o pain and discomfort, pt reminded when pain meds due. All other needs met at this time. Will continue to monitor. Normal [facility] PLATELET ONLYon 03-29-2019 DxH Actions See Notes Abnormal [facility] Comment on above: Order Comment: PLT c ount on Day 2 after initiation of Heparin or Lovenox, Notify Physician if PLT Count less than 100,000 Result Comment: Chec k for Clot. Scan Slide.Confirm WBC/PLT est. SNV Performed By: #### 1 51352, 346705, 212300, 053041, 472347, 3930648 #### [facility] [address] [place], [place] [id number] Loom Overhauler: Duran Marcus MD Platelets (Bld) [#/Vol] 247 X 1000 Normal 150-450 [facility] Comment on above: Order Comment: PLT c ount on Day 2 after initiation of Heparin or Lovenox, Notify Physician if PLT Count less than 100,000 Performed By: #### 1 14699, 641337, 204013, 642334, 600830, 2540712 #### [facility] [address] [place], [place] [address] Loom Overhauler: Duran Marcus MD Progress Note-Physicianon Progress Note-Physician [...] causes acute exacerbation. Discussed with patient and emergency dept tech. We will continue patient on current pain regimen We will attempt to look for a place where he can stay until he can get his back looked at by neurosurgery and a final decision can be made about surgery. Export filled out and we are [facility] jail DIAGNOSES: Acute sciatica Chronic lumbar degenerative disease ADHD, super morbid obesity, hypertension, dyslipidemia, degenerative joint disease, hypothyroidism, ]GERD Normal [facility] Utilization Review Noteon Utilization Review Note Patient admitted with back pain and difficulty ambulating. Has DJD of spine with siatica. Is scheduled for back surgery in April. Recently discharge from nursing facility in [place] and has been living with his brother in [place]. However, pt is having difficulty ambulating due [...] POC. CONTINUE TO WAIT FOR PRECERT FROM [facility] IN [place]. DOES NOT MEET IN PT CRITERIA - REMAIN OBS. Normal [facility] AUTO DIFFon 03-28-2019 Basophils (Bld) [#/Vol] 0.07 x1000 Normal 0.00-0.20 [facility] Comment on above: Performed By: #### 1 11630, 407793, 361487, 104341, 501182, 1870936 #### [facility] [address] [place] [address] Loom Overhauler: Duran Marcus MD Basos % 0.7 % Normal [facility] Comment on above: Performed By: #### 1 96337, 324113, 495163, 542188, 972819, 7347051 #### [facility] [address] [place] [address] Loom Overhauler: Duran Marcus MD Eos Count 0.17 x1000 Normal 0.00-0.50 [facility] Comment on above: Performed By: #### 1 74027, 708107, 243677, 171283, 550283, 3650523 #### [facility] [address] [place] [address] Loom Overhauler: Duran Marcus MD Eosinophils/100 WBC (Bld) 1.8 % Normal [facility] Comment on above: Performed By: #### 1 15356, 580984, 627579, 489252, 626091, 4549951 #### [facility] [address] [place] [address] Loom Overhauler: Duran Marcus MD Lymphocytes (Bld) [#/Vol] 2.14 x1000 Normal 1.20-4.80 [facility] Comment on above: Performed By: #### 1 25032, 815583, 659531, 422187, 035197, 0450669 #### [facility] [address] [place] [address] Loom Overhauler: Duran Marcus MD Lymphocytes/100 WBC (Bld) 21.9 % Normal [facility] Comment on above: Performed By: #### 1 67961, 367697, 142992, 362825, 319247, 1960310 #### [facility] [address] [place] [address] Loom Overhauler: Duran Marcus MD Dane Count 0.50 x1000 Normal 0.10-1.00 [facility] Comment on above: Performed By: #### 1 84542, 039630, 019647, 009018, 128587, 7583466 #### [facility] [address] [place] [address] Loom Overhauler: Duran Marcus MD Monocytes/100 WBC (Bld) 5.1 % Normal [facility] Comment on above: Performed By: #### 1 44650, 976077, 897490, 214175, 249044, 5177687 #### [facility] [address] [place] [address] Loom Overhauler: Duran Marcus MD Neutrophils (Bld) [#/Vol] 6.89 x1000 Normal 1.40-8.80 [facility] Comment on above: Performed By: #### 1 90243, 607085, 353829, 242755, 474078, 3628336 #### [facility] [address] [place] [address] Loom Overhauler: Duran Marcus MD Neutrophils/100 WBC (Bld) 70.6 % Normal [facility] Comment on above: Performed By: #### 1 15962, 820445, 518902, 973387, 192498, 7981872 #### [facility] [address] [place] [address] Loom Overhauler: Duran Marcus MD BASIC METABOLIC PANELon 03-03 Anion gap [Moles/Vol] Canceled Normal [facility] Comment on above: Order Comment: TEST BASIC METABOLIC PANEL WAS CANCELLED, 03/28/2019 04:30 ?Cancel Reason:Patient Discharged. Performed By: #### B MP ####[facility] [place] [address], [place] [address] Calcium [Mass/Vol] Canceled Normal [facility] Comment on above: Order Comment: TEST BASIC METABOLIC PANEL WAS CANCELLED, 03/28/2019 04:30 ?Cancel Reason:Patient Discharged. Performed By: #### B MP ####[address] [place] [address] Chloride [Moles/Vol] Canceled Normal [facility] Comment on above: Order Comment: TEST BASIC METABOLIC PANEL WAS CANCELLED, 03/28/2019 04:30 ?Cancel Reason:Patient Discharged. Performed By: #### B MP ####[address] [place] [address] Creatinine [Mass/Vol] Canceled Normal [facility] Comment on above: Order Comment: TEST BASIC METABOLIC PANEL WAS CANCELLED, 03/28/2019 04:30 ?Cancel Reason:Patient Discharged. Performed By: #### B MP ####[address] [place] [address] GFR- AM. Canceled Normal [facility] Comment on above: Order Comment: TEST BASIC METABOLIC PANEL WAS CANCELLED, 03/28/2019 04:30 ?Cancel Reason:Patient Discharged. Result Comment: CALC ULATIONS OF ESTIMATED GFR ARE PERFORMED USING THE MDRD STUDY EQUATION FOR THE IDMS-TRACEABLE CREATININE METHODS. CLIN CHEM 2007;53:766-72 Performed By: #### B MP ####[address] [place] [address] GFR-NON AM. Canceled Normal [facility] Comment on above: Order Comment: TEST BASIC METABOLIC PANEL WAS CANCELLED, 03/28/2019 04:30 ?Cancel Reason:Patient Discharged. Performed By: #### B MP ####[address] [place] [address] Glucose [Mass/Vol] Canceled Normal [facility] Comment on above: Order Comment: TEST BASIC METABOLIC PANEL WAS CANCELLED, 03/28/2019 04:30 ?Cancel Reason:Patient Discharged. Performed By: #### B MP ####[facility] [place] [address] HCO3 (Bld) [Moles/Vol] Canceled Normal [facility] Comment on above: Order Comment: TEST BASIC METABOLIC PANEL WAS CANCELLED, 03/28/2019 04:30 ?Cancel Reason:Patient Discharged. Performed By: #### B MP ####[facility] [place] [address] Potassium [Moles/Vol] Canceled Normal [facility] Comment on above: Order Comment: TEST BASIC METABOLIC PANEL WAS CANCELLED, 03/28/2019 04:30 ?Cancel Reason:Patient Discharged. Performed By: #### B MP ####[address] [place] [address] Sodium [Moles/Vol] Canceled Normal [facility] Comment on above: Order Comment: TEST BASIC METABOLIC PANEL WAS CANCELLED, 03/28/2019 04:30 ?Cancel Reason:Patient Discharged. Performed By: #### B MP ####[address] [place] [address] Urea nitrogen [Mass/Vol] Canceled Normal [facility] Comment on above: Order Comment: TEST BASIC METABOLIC PANEL WAS CANCELLED, 03/28/2019 04:30 ?Cancel Reason:Patient Discharged. Performed By: #### B MP ####[address] [place] [address] CBCon 03-28-2019 Erythrocyte distribution width (RBC) [Ratio] Canceled Normal [facility] Comment on above: Order Comment: TEST CBC WAS CANCELLED, 03/28/2019 04:30 ?Cancel Reason: Patient Discharged. Performed By: #### C BC ####[address] [place] [address] Hematocrit (Bld) [Volume fraction] Canceled Normal [facility] Comment on above: Order Comment: TEST CBC WAS CANCELLED, 03/28/2019 04:30 ?Cancel Reason: Patient Discharged. Performed By: #### C BC ####[facility] [place], [place] [address] [address] Hemoglobin (Bld) [Mass/Vol] Canceled Normal [facility] Comment on above: Order Comment: TEST CBC WAS CANCELLED, 03/28/2019 04:30 ?Cancel Reason: Patient Discharged. Performed By: #### C BC ####[address] [address] MCHC (RBC) [Mass/Vol] Canceled Normal [facility] Comment on above: Order Comment: TEST CBC WAS CANCELLED, 03/28/2019 04:30 ?Cancel Reason: Patient Discharged. Performed By: #### C BC ####[address] [address] MCV (RBC) [Entitic vol] Canceled Normal [facility] Comment on above: Order Comment: TEST CBC WAS CANCELLED, 03/28/2019 04:30 ?Cancel Reason: Patient Discharged. Performed By: #### C BC ####[address] [place] [address] Nucleated RBC/100 WBC (Bld) [Ratio] Canceled Normal [facility] Comment on above: Order Comment: TEST CBC WAS CANCELLED, 03/28/2019 04:30 ?Cancel Reason: Patient Discharged. Performed By: #### C BC ####[address] [place] [address] Platelets (Bld) [#/Vol] Canceled Normal [facility] Comment on above: Order Comment: TEST CBC WAS CANCELLED, 03/28/2019 04:30 ?Cancel Reason: Patient Discharged. Performed By: #### C BC ####[address] [address] RBC (Bld) [#/Vol] Canceled Normal [facility] Comment on above: Order Comment: TEST CBC WAS CANCELLED, 03/28/2019 04:30 ?Cancel Reason: Patient Discharged. Performed By: #### C BC ####[address] [place] [address] WBC (Bld) [#/Vol] Canceled Normal [facility] Comment on above: Order Comment: TEST CBC WAS CANCELLED, 03/28/2019 04:30 ?Cancel Reason: Patient Discharged. Performed By: #### C BC ####[address] [place] [address] COMPMETAon 03-28-2019 Albumin/Globulin [Mass ratio] 0.7 {ratio} Normal [facility] Comment on above: Performed By: #### 1 57245, 427349, 006739, 984474, 697936, 4681429 #### [facility] [address] [place] [address] Loom Overhauler: Duran Marcus MD GFR AA >60 Normal [facility] Comment on above: Result Comment: Afri can Greenlandic GFR Calc Medical judgement is necessary to [...] for drug dosing. Performed By: #### 1 57329, 884351, 712544, 709389, 205081, 0122138 #### [facility] [address] [place] [id number] Loom Overhauler: Duran Marcus MD GFR/1.73 sq M predicted among non-blacks MDRD (S/P/Bld) [Vol rate/Area] mL/min/{1.73_m2} Normal [facility] Comment on above: Result Comment: Non GFR [...] for drug dosing. Performed By: #### 1 91026, 645891, 517156, 371171, 232284, 0335154 #### [facility] [address] [place] [address] Loom Overhauler: Duran Marcus MD Osmolality [Osmolality] 276 mOsm/kg Normal 275-295 [facility] Comment on above: Performed By: #### 1 13783, 151623, 844529, 957695, 984534, 0587053 #### [facility] [address] [place] [address] Loom Overhauler: Duran Marcus MD Urea nitrogen/Creatinine [Mass ratio] 15.2 mg/mg Normal [facility] Comment on above: Performed By: #### 1 27133, 796581, 604421, 067708, 678802, 3528374 #### [facility] [address] [place] [address] Loom Overhauler: Duran Marcus MD Albumin [Mass/Vol] 3.2 g/dL Low 3.4-5.0 [facility] Comment on above: Performed By: #### 1 56656, 555849, 528262, 743808, 194457, 0531240 #### [facility] [address] [place], [place] [address] Loom Overhauler: Duran Marcus MD Alk Phos 152 unit/L High 45-117 [facility] Comment on above: Performed By: #### 1 08299, 922036, 976663, 558677, 056684, 6195651 #### [facility] [address] [place] [address] Loom Overhauler: Duran Marcus MD Bilirubin [Mass/Vol] 0.46 mg/dL Normal 0.20-1.00 [facility] Comment on above: Performed By: #### 1 19552, 548254, 193739, 818841, 034044, 8576358 #### [facility] [address] [place] [address] Loom Overhauler: Duran Marcus MD Calcium [Mass/Vol] 9.0 mg/dL Normal 8.5-10.5 [facility] Comment on above: Performed By: #### 1 58902, 627054, 070345, 913851, 664761, 3543466 #### [facility] [address] [place] [address] Loom Overhauler: Duran Marcus MD Chloride [Moles/Vol] 104 mmol/L Normal 100-109 [facility] Comment on above: Performed By: #### 1 77377, 857419, 370122, 349685, 357392, 9978276 #### [facility] [address] [place] [address] Loom Overhauler: Duran Marcus MD CO2, venous 27.3 mmol/L Normal 21.0-32.0 [facility] Comment on above: Performed By: #### 1 17051, 403839, 126958, 020312, 047615, 5258506 #### [facility] [address] [place] [address] Loom Overhauler: Duran Marcus MD Creatinine [Mass/Vol] 0.9 mg/dL Normal 0.7-1.3 [facility] Comment on above: Performed By: #### 1 09895, 010887, 107700, 840683, 677118, 4416221 #### [facility] [address] [place] [address] Loom Overhauler: Duran Marcus MD Globulin (S) [Mass/Vol] 4.4 g/dL Normal [facility] Comment on above: Performed By: #### 1 34097, 460679, 957238, 607634, 557756, 2425306 #### [facility] [address] [place] [address] Loom Overhauler: Duran Marcus MD Glucose [Mass/Vol] 95 mg/dL Normal 72-100 [facility] Comment on above: Result Comment: Stacie puncture should occur prior to sulfasalazine administration due to the potential for falsely depressed results. Venipuncture should occur prior to sulfapyridine administration due to the potential falsely elevated results. Baseline assay values before administration of sulfasalazine and sulfapyridine therapy would not be affected. Performed By: #### 1 61986, 809307, 795283, 794966, 926256, 9040257 #### [facility] [address] [place] [address] Loom Overhauler: Duran Marcus MD GOT 14 unit/L Low 15-37 [facility] Comment on above: Result Comment: Stacie puncture should occur prior to sulfasalazine and/or sulfapyridine administration due to the potential for falsely depressed results. Baseline assay values before administration of sulfasalazine and sulfapyridine therapy would not be affected. Performed By: #### 1 41291, 255885, 567586, 426016, 879431, 6707741 #### [facility] [address] [place] [address] Loom Overhauler: Duran Marcus MD GPT 12 unit/L Low 16-61 [facility] Comment on above: Result Comment: Stacie puncture should occur prior to sulfasalazine and/or sulfapyridine administration due to the potential for falsely depressed results. Baseline assay values before administration of sulfasalazine and sulfapyridine therapy would not be affected. Performed By: #### 1 08182, 235916, 431997, 874477, 635999, 5577002 #### [facility] [address] [place] [address] Loom Overhauler: Duran Marcus MD Potassium [Moles/Vol] 4.0 mmol/L Normal 3.5-5.1 [facility] Comment on above: Performed By: #### 1 58953, 085704, 386100, 555297, 351851, 7615752 #### [facility] [address] [place] [address] Loom Overhauler: Duran Marcus MD Protein [Mass/Vol] 7.6 g/dL Normal 6.0-8.5 [facility] Comment on above: Performed By: #### 1 91576, 460431, 207948, 121507, 967112, 0316094 #### [facility] [address] [place] [address] Loom Overhauler: Duran Marcus MD Sodium [Moles/Vol] 138 mmol/L Normal 135-145 [facility] Comment on above: Performed By: #### 1 76978, 937720, 893764, 020083, 795816, 3439303 #### [facility] [address] [place] [address] Loom Overhauler: Duran Marcus MD Urea nitrogen [Mass/Vol] 13 mg/dL Normal 10-20 [facility] Comment on above: Performed By: #### 1 83456, 519943, 403224, 452969, 244421, 3453147 #### [facility] [address] [place] [address] Loom Overhauler: Duran Marcus MD ED Physician Reporton 2018 [...] is requesting to go back to his [facility] home in [place].. Review of Systems Constitutional symptoms: No fever, [...] feels he needs to go back to half-way. The will be placed under observation with case management evaluation in the AM. The patient agrees with this plan. The patient had acute exacerbation of his chronic radicular lumbar pain. The CT showed his chronic disease. He had no red flags for acute cord compression.. Impression and Plan Diagnosis Sciatica (TFA97-EK M54.30, Working, Medical) Intractable back pain (JNV00-OW M54.9, Working, Medical) Chronic back pain (HLN09-ZS M54.9, Working, Medical) Plan Condition: Improved. Disposition: Admit time 03/27/2019 22:31:00, Place in Observation Unit, MEGAN MONROE MD. Counseled: Patient, Regarding diagnosis, Regarding diagnostic results, Regarding treatment plan, Regarding prescription, Patient indicated understanding of instructions. Normal [facility] ED Progress Noteon 9 ED Progress Note [...] stable condition via wheelchair. safety maintained. Normal [facility] HEMOon 03-28-2019 DIFF? No [facility] Comment on above: Performed By: #### 1 50218, 329814, 064650, 055405, 519610, 3199277 #### [facility] [address] [place] [address] Loom Overhauler: Duran Marcus MD Erythrocyte distribution width (RBC) [Ratio] 15.5 % High 11.5-14.5 [facility] Comment on above: Performed By: #### 1 07171, [id number], 568995, 077336, 833603, [id number] #### [facility] [address] [place] [address] Loom Overhauler: Duran Marcus MD Hematocrit (Bld) [Volume fraction] 35.2 % Low 41.0-52.0 [facility] Comment on above: Performed By: #### 1 54845, 113836, 988422, 544262, 937210, [id number] #### [facility] [address] [place] [address] Loom Overhauler: Duran Marcus MD Hemoglobin (Bld) [Mass/Vol] 11.4 g/dL Low 13.5-17.5 [facility] Comment on above: Performed By: #### 1 93583, 134726, 505739, 980097, 344948, [id number] #### [facility] [address] [place] [address]471 Loom Overhauler: Duran Marcus MD MCH (RBC) [Entitic mass] 27.8 pg Normal 27.0-34.0 [facility] Comment on above: Performed By: #### 1 61594, 873349, 935184, 331766, 848250, [id number] #### [facility] [address] [place] [address] Loom Overhauler: Duran Marcus MD MCHC (RBC) [Mass/Vol] 32.5 g/dL Normal 32.0-37.0 [facility] Comment on above: Performed By: #### 1 90984, 863305, 802340, 432704, 661703, 1375235 #### [facility] [address] [place] [address] Loom Overhauler: Duran Marcus MD MCV (RBC) [Entitic vol] 85.5 fL Normal 80.0-100.0 [facility] Comment on above: Performed By: #### 1 46264, 047647, 223884, 057539, 427567, 0873479 #### [facility] [address] [place] [address] Loom Overhauler: Duran Marcus MD Nucleated RBC (Bld) [#/Vol] 0 /100WBC Normal [facility] Comment on above: Performed By: #### 1 61781, 241811, 980277, 187630, 852395, 9785731 #### [facility] [address] [place] [address] Loom Overhauler: Duran Marcus MD Platelet mean volume (Bld) [Entitic vol] 7.3 fL Low 7.4-10.4 [facility] Comment on above: Performed By: #### 1 88420, 267614, 548313, 710444, 670491, 2804202 #### [facility] [address] [place] [address] Loom Overhauler: Duran Marcus MD Platelets (Bld) [#/Vol] 275 x1000 Normal 150-450 [facility] Comment on above: Performed By: #### 1 95281, 433097, 060923, 021686, 620705, 5900744 #### [facility] [address] [place] [address]646 Loom Overhauler: Duran Marcus MD RBC (Bld) [#/Vol] 4.12 x10 Low 4.70-6.10 [facility] Comment on above: Result Comment: Note : RBC morphology is normal unless otherwise stated. Evaluation performed only if differential is requested. Performed By: #### 1 11713, 116320, 731279, 211262, 822732, [id number] #### [facility] [address] [place] [address] Loom Overhauler: Duran Marcus MD WBC (Bld) [#/Vol] 9.8 10*3/uL Normal [facility] Comment on above: Performed By: #### 1 69485, 658163, 077410, 620380, 500350, 0403243 #### [facility] Services [address] [place] [address] Loom Overhauler: Duran Marcus MD WBC (Bld) [#/Vol] 9.8 x10 Normal 4.5-11.0 [facility] Comment on above: Performed By: #### 1 74503, 098548, 755124, 230754, 048970, 3269772 #### [facility] Services [address] [place] [address] Loom Overhauler: Duran Marcus MD History and Physicalon 03-28 History and Physical Patient: VICKI GERBER Age: 59 years Sex: Male : 1960 Associated Diagnoses: None Author: MABEL LUCERO, [facility] Chief Complaint Inability to walk History of Present Illness This is a 59-year-old male presented to the emergency room for evaluation of back pain and inability to walk. The patient resides at the half-way in [place], he is morbidly obese. He presented for evaluation of worsening low back pain and left lower leg pain sharp severe limiting his movement, pain worse with movement and bending over. Denies any fever chills nausea vomiting dizziness or diarrhea. The patient was staying at the half-way in [place] but was discharged about a week ago, came to stay with his brother here in [place]. He is awaiting back surgery at the end of April and the hope that it would improve his condition. However, it has been difficult for him to manage unassisted. He would like to go back to the half-way until he gets his surgery done Histories [...] 5 mg = 1 tabs, PRN, ORAL, [id number] Plavix 75 mg oral tablet 75 mg = 1 tabs, ORAL, DAILY SEROquel 100 mg oral tablet 100 mg = 1 tabs, ORAL, QHS Ultram 50 mg oral tablet 50 mg = 1 tabs, PRN, ORAL, [id number] verapamil 120 mg/12 hours oral tablet, extended [...] will need to go back to his half-way until he receives back surgery at the end of April, will consult social service/case management Lovenox and SCDs for DVT prophylaxis Normal [facility] Nursing Clinical Noteon 10-2 7-2019 Nursing Clinical Note 1015: Pt safe and stable at this time. head to toe assessment completed and charted in iview. morning medications administered. awaiting further orders. will continue to monitor and maintain safety precautions. Normal [facility] Progress Note-Physicianon Progress Note-Physician Patient: NATALIE GERBER [...] and is scheduled for another opinion at [place] in a week or 2 VITAL SIGN: [...] causes acute exacerbation. Discussed with patient and emergency dept tech. Will increase pain meds add steroids and muscle relaxers. We will attempt to look for a place where he can stay until he can get his back looked at by neurosurgery and a final decision can be made about surgery. DIAGNOSES: Acute sciatica Chronic lumbar degenerative disease ADHD, super morbid obesity, hypertension, dyslipidemia, degenerative joint disease, hypothyroidism, ]GERD Normal [facility] Admission Risk Screen - Adul ton 03-27-2019 Admission Risk Screen - Adult Allergies: Allergies: Nubain: Anxiety, Hives/Urticaria Toradol IV/IM: Hives/Urticaria Fish: Hives/Urticaria Patient Verification: New W ID Band Applied in my Departmentno Type of ID Patient is WearingW wristband, but not applied here Patient Transferred from Other Facility ([facility], [facility],etc)no Patient Identity Verified Bypatient ID [...] falls risk with risk for associated injury [place] Safety InterventionsWDL *orient to call system *instruct [...] roomnone Climbing 3-5 steps with railinga derrek AM-PAC Basic Mobility- Total Score23 Putting on and taking off regular lower body clothingnone Bathing (including washing, rinsing, drying)none Putting on and taking off regular upper body clothingnone Toileting, which includes using toilet, bedpan or urinalnone Taking care of personal grooming such as brushing teethnone Eating Mealsnone AM-PAC Daily Activity- Total Score24 Learning Assessment (Patient): Patient is Able to be Assessed for Learningyes Factors Influencing Readiness to Learnacuteness of illness Factors that Impact Ability to Learnnone Devices/Methods Used to Communicateglasses Learning Preferencesverbal instruction Cultural Considerationsnone Developmental Considerationsnone Jainism Considerationsnone Learning Assessment (Other Learner): Other learner [...] Spiritual Screen: Are there any cultural, spiritual, synagogue practices/values/needs that are important for us to knowno Do you want a visit/item from Pastoral Ca[facility]o Would you like your Crankshaft Balancer/Chief Deputy Coroner notifiedno CAGE: Is this an injured patient at a Trauma Center ([facility]/[place]): no (1) Vaccinations: Vaccination - Influenza Vaccination [...] From "Triage - ED" 26-Mar-2019 21:37 Normal [facility] BASIC METABOLIC PANELon 10-2 Anion gap [Moles/Vol] 14 mmol/L Normal 10 - 20 [facility] Comment on above: Performed By: #### B MP ####[facility] [place] [address] Calcium [Mass/Vol] 9.0 mg/dL Normal 8.6 - 10.3 [facility] Comment on above: Performed By: #### B MP ####[address] [address] Chloride [Moles/Vol] 104 mmol/L Normal 98 - 107 [facility] Comment on above: Performed By: #### B MP ####[address] [address] Creatinine [Mass/Vol] 0.76 mg/dL Normal 0.50 - 1.30 [facility] Comment on above: Performed By: #### B MP ####[address] [address] GFR- AM. >60 Normal >60 [facility] Comment on above: Result Comment: CALC ULATIONS OF ESTIMATED GFR ARE PERFORMED USING THE MDRD STUDY EQUATION FOR THE IDMS-TRACEABLE CREATININE METHODS. CLIN CHEM 2007;53:766-72 Performed By: #### B MP ####[address] [address] GFR-NON AM. >60 Normal >60 [facility] Comment on above: Performed By: #### B MP ####[address] [address] Glucose [Mass/Vol] 100 mg/dL High 74 - 99 [facility] Comment on above: Performed By: #### B MP ####[address] [address] HCO3 (Bld) [Moles/Vol] 24 mmol/L Normal 21 - 32 [facility] Comment on above: Performed By: #### B MP ####[address] [address] Potassium [Moles/Vol] 4.2 mmol/L Normal 3.5 - 5.3 [facility] Comment on above: Performed By: #### B MP ####[address] [address] Sodium [Moles/Vol] 138 mmol/L Normal 136 - 145 [facility] Comment on above: Performed By: #### B MP ####[address] [address] Urea nitrogen [Mass/Vol] 10 mg/dL Normal 6 - 23 [facility] Comment on above: Performed By: #### B MP ####[address] [address] BNPon 03-27-2019 Natriuretic peptide B (Bld) [Mass/Vol] 20 pg/mL Normal 0 - 99 [facility] Comment on above: Result Comment: . <1 00 pg/mL - Heart failure unlikely 100-299 pg/mL - Intermediate probability of acute heart . failure exacerbation. Correlate with clinical . context and patient history. >=300 pg/mL - Heart Failure likely. Correlate with clinical . context and patient history. BNP testing is performed using different testing methodology at [facility] than at other [facility]. Direct result comparisons should only be made within the same method. Performed By: #### B NP2 ####[address] [address] CBCon 03-27-2019 Erythrocyte distribution width (RBC) [Ratio] 14.5 % Normal 11.5 - 14.5 [facility] Comment on above: Performed By: #### C BC ####[address] [address] Hematocrit (Bld) [Volume fraction] 35.4 % Low 41.0 - 52.0 [facility] Comment on above: Performed By: #### C BC ####[address] [address] Hemoglobin (Bld) [Mass/Vol] 10.3 g/dL Low 13.5 - 17.5 [facility] Comment on above: Performed By: #### C BC ####[address] [address] MCHC (RBC) [Mass/Vol] 29.1 g/dL Low 32.0 - 36.0 [facility] Comment on above: Performed By: #### C BC ####[address] [address] MCV (RBC) [Entitic vol] 93 fL Normal 80 - 100 [facility] Comment on above: Performed By: #### C BC ####[address] [address] Nucleated RBC/100 WBC (Bld) [Ratio] 0.0 /100 WBC Normal 0.0 - 0.0 [facility] Comment on above: Performed By: #### C BC ####[address] [address] Platelets (Bld) [#/Vol] 255 10*3/uL Normal 150 - 450 [facility] Comment on above: Performed By: #### C BC ####[address] [address] RBC (Bld) [#/Vol] 3.81 x10E12/L Low 4.50 - 5.90 [facility] Comment on above: Performed By: #### C BC ####[address] [address] WBC (Bld) [#/Vol] 9.2 10*3/uL Normal 4.4 - 11.3 [facility] Comment on above: Performed By: #### C BC ####[address] [address] COMPREHENSIVE PANELon 2018 Albumin [Mass/Vol] 4.1 g/dL Normal 3.4 - 5.0 [facility] Comment on above: Performed By: #### C MP ####[address] [address] ALP [Catalytic activity/Vol] 135 U/L High 33 - 120 [facility] Comment on above: Performed By: #### C MP ####[address] [address] ALT [Catalytic activity/Vol] 8 U/L Low 10 - 52 [facility] Comment on above: Result Comment: Susan ents treated with Sulfasalazine may generate falsely decreased results for ALT. Performed By: #### C MP ####[address] [address] Anion gap [Moles/Vol] 12 mmol/L Normal 10 - 20 [facility] Comment on above: Performed By: #### C MP ####[address] [address] AST [Catalytic activity/Vol] 19 U/L Normal 9 - 39 [facility] Comment on above: Result Comment: MILD HEMOLYSIS DETECTED. The result may be falsely elevated due to hemolysis or other interferents. Clinical correlation is recommended. Repeat testing may be considered. Performed By: #### C MP ####[address] [address] Bilirubin [Mass/Vol] 0.5 mg/dL Normal 0.0 - 1.2 [facility] Comment on above: Performed By: #### C MP ####[address] [address] Calcium [Mass/Vol] 8.8 mg/dL Normal 8.6 - 10.3 [facility] Comment on above: Performed By: #### C MP ####[address] [address] Chloride [Moles/Vol] 103 mmol/L Normal 98 - 107 [facility] Comment on above: Performed By: #### C MP ####[address] [address] Creatinine [Mass/Vol] 0.77 mg/dL Normal 0.50 - 1.30 [facility] Comment on above: Performed By: #### C MP ####[address] [address] GFR- AM. >60 Normal >60 [facility] Comment on above: Result Comment: CALC ULATIONS OF ESTIMATED GFR ARE PERFORMED USING THE MDRD STUDY EQUATION FOR THE IDMS-TRACEABLE CREATININE METHODS. CLIN CHEM 2007;53:766-72 Performed By: #### C MP ####[address] [address] GFR-NON AM. >60 Normal >60 [facility] Comment on above: Performed By: #### C MP ####[address] [address] Glucose [Mass/Vol] 100 mg/dL High 74 - 99 [facility] Comment on above: Performed By: #### C MP ####[address] [address] HCO3 (Bld) [Moles/Vol] 24 mmol/L Normal 21 - 32 [facility] Comment on above: Performed By: #### C MP ####[address] [address] Potassium [Moles/Vol] 4.9 mmol/L Normal 3.5 - 5.3 [facility] Comment on above: Result Comment: MILD HEMOLYSIS DETECTED. The result may be falsely elevated due to hemolysis or other interferents. Clinical correlation is recommended. Repeat testing may be considered. Performed By: #### C MP ####[address] [place] [address] Protein [Mass/Vol] 7.5 g/dL Normal 6.4 - 8.2 [facility] Comment on above: Performed By: #### C MP ####[id number] [place] [address] Sodium [Moles/Vol] 134 mmol/L Low 136 - 145 [facility] Comment on above: Performed By: #### C MP ####[address] [address] Urea nitrogen [Mass/Vol] 9 mg/dL Normal 6 - 23 [facility] Comment on above: Performed By: #### C MP ####[address] [address] [address] LUMBAR WO CONTRASTon 03-03 CT LUMBAR [...] MARIO MD Signed Out: 03/27/19 21:22:48 Normal [facility] Consult-Cardiologyon 019 Consult-Cardiology Service: Service: Cardiology Consult: [...] of this year, he was admitted at [facility] and underwent a cath with Dr. 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 [place] [address] HEMOGLOBIN A1Con 03-27-2019 HbA1c (d) [Mass fraction] 6.1 % Normal [facility] Comment on above: Result Comment: Diag nosis of Diabetes-Adults Non-Diabetic: < or = 5.6% Increased risk for developing diabetes: 5.7-6.4% Diagnostic of diabetes: > or = 6.5% . Monitoring of Diabetes Age (y) Therapeutic Goal (%) Adults: >18 <7.0 Pediatrics: 13-18 <7.5 7-12 <8.0 0- 6 7.5-8.5 [place] [employer]. Diabetes Care 33(S1), Jun 2009. Performed By: #### H BA1E ####[facility] [place] [address] HbA1c (Bld) [Mass fraction] 128 MG/DL Normal [facility] Comment on above: Performed By: #### H BA1E ####[facility] [place] [address] History and Physicalon 03-27 History and Physical [...] when he was on a scooter at [facility]. His chest pain was 8/10 and improved to 5.5/10 after 3 NTG. The pain radiates down his left arm and he feels like spiders are crawling down his left arm. The chest pain was associated with nausea and diaphoresis. He also complains of SOB with b/l leg swelling for the last 2 days. He states he has had a prior [place] before but has never had stenting or [...] for pain. Objective: Objective Information: T PRBPSpO2 [id number]/6595% Date/Time03/26 21: 22: 22: 22: 22:00 Range(36.9C [...] the note. I personally evaluated the patient [id number] Comments/ Additional Findings Patient fully evaluated with resident team. Agree with resident note. Attending Provider Inpatient Certification StatementI certify this patients need for inpatient care based on the above documentation including; the order to admit as inpatient, the anticipated length of stay, diagnosis, problem list and plan of care, and discharge plan. Electronic Signatures: Dashawn Fierro ( (Resident)) (Signed 27-Mar-2019 01:21) Authored: History of Present Illness, Comorbidities, Allergies, Medications Prior to Admission, Objective, Assessment and Plan, Signatures/Attestation/Certi fication Chuy Mc) (Signed 27-Mar-2019 12:17) Authored: Signatures/Attestation/Certi fication Co-Signer: History of Present Illness, Comorbidities, Allergies, Medications Prior to Admission, Objective, Assessment and Plan, Signatures/Attestation/Certi fication Last Updated: 27-Mar-2019 12:17 by Chuy Mc) Normal [facility] PT/INRon 03-27-2019 INR Coag (PPP) [Relative time] 1.0 {INR} Normal 0.9 - 1.1 [facility] Comment on above: Performed By: #### P TINR #### [facility] [address] [place] [address] PT Coag (PPP) [Time] 11.2 s Normal 9.7 - 12.7 [facility] Comment on above: Performed By: #### P TINR #### [facility] [address] [place] [address] Patient Profile - Adult v2on 03-27-2019 Patient Profile - Adult v2 Profile: Initial Info: How to be AddressedGucho(1) Spoken Language PreferredEnglish (2) Are you currently using the Personal Electronic Health Record or [employer]no (1) Are you interested in learning more about [facility] for the management of your healthdeclined Stated Reason for Admissionchest pain Wants Family/Rep Notified of Admissionno Notify PCPdo not notify PCP Informed of Patient Visiting Rightsyes [facility] Patient Belongingsremains with patient Patient Belongings Remaining with Patientclothing; medication(s); antunez/credit card; vision aids Medications Brought to Hospitalyes Medication Dispositionbedside General Health: Weight in kg141.8 kilogram(s) Weight in xlw174.7 pound(s) Height in feet5 feet Height in inches0.5 inch(es) Height in cm153.6 centimeter(s) BMI (kg/m2)60.102 square meter Weight Methodactual (measured) Scale Typestanding Height Methodstated Equipment Currently Used at [employer], quad/straight RSP Based Care: How would you [...] Withalone Living Arrangementsapartment Resource/Environmental Concernsnone Anticipated Transition Tolottie Services Anticipated at Transitionnone Significant IndicatorsComplete Information Review: Allergies, Home Meds and Significant Events have been Reviewed and Verified with Patient/Familyyes ALLERGY, INTOLERANCE, ADVERSE EVENT: Allergies: Nubain: Drug, Anxiety, Hives/Urticaria, Active Toradol IV/IM: Drug, Hives/Urticaria, Active Fish: Food, Hives/Urticaria, Active Electronic Signatures: Stephanie Valente (PIA) (Signed 27-Mar-2019 00:15) Authored: Profile, Additional Information Last Updated: 27-Mar-2019 00:15 by Stephanie Valente (PIA) References: 1. Data Referenced From Patient Profile - Adult v2 13-Dec-2018 03:09 2. Data Referenced From "Triage - ED" 26-Mar-2019 21:37 Normal [facility] Risk Screen - Adult Emergenc yon 03-27-2019 Risk Screen - Adult Emergency Preferred Language: Preferred Language: Preferred Language for Discussing Health Care (patient/designee)Cymro Advanced Directives: Advance Directive/DNRno Family Violence Adult: Abuse Screen: Are you or have you been threatened or abused physically, emotionally, or sexually by anyoneno Learning Assessment (Patient): Learning Assessment (Patient): Patient is Able to be Assessed for Learningyes Factors Influencing Readiness to Learnpain Factors that Impact Ability to Learnnone Devices/Methods Used to Communicatenone Learning Preferencesverbal instruction Cultural Considerationsnone Developmental Considerationsnone Jainism Considerationsnone Learning Assessment (Other Learner): Learning Assessment (Other Learner): Other learner availableno Pressure Injury/TB/Substance: Pressure Injury: Do you have a coughno Admission Risk Screen: Significant IndicatorsComplete CAGE: CAGE: Is this an injured patient at a Trauma Center ([facility]/[place]): no Electronic Signatures: Kevin Patton (PIA) (Signed 26-Mar-2019 23:50) Authored: Preferred Language, Advanced Directives, Family Violence Adult, Learning Assessment (Patient), Learning Assessment (Other Learner), Pressure Injury/TB/Substance, CAGE Last Updated: 26-Mar-2019 23:50 by Kevin Patton (PIA) Normal [facility] TROPONIN Ion 03-27-2019 Troponin I.cardiac [Mass/Vol] ng/mL Normal 0.00 - 0.03 [facility] Comment on above: Result Comment: LESS [...] performed using different testing methodology at [facility] than at other [facility]. Direct result comparisons should only be made within the same method. Performed By: #### T ROP2 ####[facility] [place] [address] Troponin I.cardiac [Mass/Vol] ng/mL Normal 0.00 - 0.03 [facility] Comment on above: Result Comment: LESS [...] performed using different testing methodology at [facility] than at other [facility]. Direct result comparisons should only be made within the same method. Performed By: #### T ROP2 ####[facility] [place] [id number] Troponin I.cardiac [Mass/Vol] Canceled Normal [facility] Comment on above: Order Comment: TEST [...] performed using different testing methodology at [facility] than at [facility]. Direct result comparisons should only be made within the same method. Performed By: #### T ROP2 ####[facility] [place] [address] Order Comment: TEST TROPONIN I WAS CANCELLED, 03/26/2019 03:04 ?Cancel Reason: Cancelled. Troponin I.cardiac [Mass/Vol] ng/mL Normal 0.00 - 0.03 [facility] Comment on above: Result Comment: LESS [...] performed using different testing methodology at [facility] than at other [facility]. Direct result comparisons should only be made within the same method. Performed By: #### T ROP2 ####[address] [place] [address] URINALYSISon 03-27-2019 Appearance (U) CLEAR Normal CLEAR [facility] Comment on above: Performed By: #### U A ####[address] [place] [address] Bilirubin (U) [Mass/Vol] Negative Normal NEGATIVE [facility] Comment on above: Performed By: #### U A ####[address] [place] [address] BLOOD Negative Normal NEGATIVE [facility] Comment on above: Performed By: #### U A ####[address] [place] [address] Color (U) YELLOW Normal STRAW,YELL OW [facility] Comment on above: Performed By: #### U A ####[address] [place] [address] Glucose [Mass/Vol] Negative Normal NEGATIVE [facility] Comment on above: Performed By: #### U A ####[address] [place] [address] Ketones Ql (U) Negative Normal NEGATIVE [facility] Comment on above: Performed By: #### U A ####[address] [place] [address] Leukocyte esterase Test strip Ql (U) Negative Normal NEGATIVE [facility] Comment on above: Performed By: #### U A ####[address] [place] [address] Nitrite Ql (U) Negative Normal NEGATIVE [facility] Comment on above: Performed By: #### U A ####[address] [place] [address] pH (Bld) 5.0 Normal 5.0 - 8.0 [facility] Comment on above: Performed By: #### U A ####[address] [place] [address] Protein (U) [Mass/Vol] Negative Normal NEGATIVE [facility] Comment on above: Performed By: #### U A ####[facility] [place] [address] Specific gravity (U) [Rel density] 1.017 Normal 1.005 - 1.035 [facility] Comment on above: Performed By: #### U A ####[facility] [place] [address] Urobilinogen Qn (U) <2.0 Normal 0.0 - 1.9 [facility] Comment on above: Performed By: #### U A ####[facility] [place] [address] XR SHOULDER LEFT 2 VIEWSon 1 XR [...] HOOD MD Signed Out: 03/27/19 21:02:55 Normal [facility] CBC AND DIFFERENTIALon 03-26 % AUTOMATED IMMATURE GRAN 0.6 % Normal 0.0 - 0.9 [facility] Comment on above: Result Comment: Perc ent differential counts (%) should be interpreted in the context of the absolute cell counts (cells/L). Performed By: #### C BCDF #### [facility] [address] [place] [address] Basophils (Bld) [#/Vol] 0.04 10*3/uL Normal 0.00 - 0.10 [facility] Comment on above: Performed By: #### C BCDF #### [facility] [address] [place] [address] Basophils/100 WBC (Bld) 0.4 % Normal 0.0 - 2.0 [facility] Comment on above: Performed By: #### C BCDF #### [facility] [address] [place] [address] Eosinophils (Bld) [#/Vol] 0.20 10*3/uL Normal 0.00 - 0.70 [facility] Comment on above: Performed By: #### C BCDF #### [facility] [address] [place] [address] Eosinophils/100 WBC (Bld) 1.8 % Normal 0.0 - 6.0 [facility] Comment on above: Performed By: #### C BCDF #### [address] [place] [address] Erythrocyte distribution width (RBC) [Ratio] 14.4 % Normal 11.5 - 14.5 [facility] Comment on above: Performed By: #### C BCDF #### [address] [place] [address] Hematocrit (Bld) [Volume fraction] 36.4 % Low 41.0 - 52.0 [facility] Comment on above: Performed By: #### C BCDF #### [address] [place] [address] Hemoglobin (Bld) [Mass/Vol] 10.9 g/dL Low 13.5 - 17.5 [facility] Comment on above: Performed By: #### C BCDF #### [address] [place] [address] Lymphocytes (Bld) [#/Vol] 1.97 10*3/uL Normal 1.20 - 4.80 [facility] Comment on above: Performed By: #### C BCDF #### [address] [place] [address] Lymphocytes/100 WBC (Bld) 17.4 % Normal 13.0 - 44.0 [facility] Comment on above: Performed By: #### C BCDF #### [address] [place] [address] MCHC (RBC) [Mass/Vol] 29.9 g/dL Low 32.0 - 36.0 [facility] Comment on above: Performed By: #### C BCDF #### [address] [place] [address] MCV (RBC) [Entitic vol] 91 fL Normal 80 - 100 [facility] Comment on above: Performed By: #### C BCDF #### [address] [address] Monocytes (Bld) [#/Vol] 0.44 10*3/uL Normal 0.10 - 1.00 [facility] Comment on above: Performed By: #### C BCDF #### [address] [address] Monocytes/100 WBC (Bld) 3.9 % Normal 2.0 - 10.0 [facility] Comment on above: Performed By: #### C BCDF #### [address] [place] [address] Neutrophils (Bld) [#/Vol] 8.58 10*3/uL High 1.20 - 7.70 [facility] Comment on above: Performed By: #### C BCDF #### [address] [address] Neutrophils/100 WBC (Bld) 75.9 % Normal 40.0 - 80.0 [facility] Comment on above: Performed By: #### C BCDF #### [address] [address] Nucleated RBC/100 WBC (Bld) [Ratio] 0.0 /100 WBC Normal 0.0 - 0.0 [facility] Comment on above: Performed By: #### C BCDF #### [address] [address] Platelets (Bld) [#/Vol] 294 10*3/uL Normal 150 - 450 [facility] Comment on above: Performed By: #### C BCDF #### [address] [place] [address] RBC (Bld) [#/Vol] 4.02 x10E12/L Low 4.50 - 5.90 [facility] Comment on above: Performed By: #### C BCDF #### [address] [address] WBC (Bld) [#/Vol] 11.3 10*3/uL Normal 4.4 - 11.3 [facility] Comment on above: Performed By: #### C BCDF #### [facility] [address] [place] [address] CHEST 2 VIEW PA AND LATon CHEST 2 VIEW PA AND LAT Patient Name: NATALIE GERBER STUDY: TH CHEST 2 VIEW PA AND LAT; 03/26/2019 9:51 pm INDICATION: chest pain. COMPARISON: 06/15/2018 ACCESSION NUMBER(S): [id number] ORDERING CLINICIAN: DULCE MEAD FINDINGS: CARDIOMEDIASTINAL SILHOUETTE: Cardiomediastinal silhouette is enlarged with mild pulmonary venous congestion LUNGS: Lungs are clear. There is no confluent airspace disease or effusion. ABDOMEN: No remarkable upper abdominal findings. BONES: No acute osseous changes. IMPRESSION: Cardiomegaly with mild pulmonary venous congestion Electronically signed by: SIMONA ALCANTARA MD Normal [facility] Provider Note - ED v2on 03-03 [...] while he was on a scooter at [facility] this evening and admits to taking 3 [...] fever or chills. PMH: HTN, HLD, CAD, IL (2005), CHF, PE (1998), CVA (2017), TIA, [...] age and known CAD with a prior IL. On reevaluation, pt is resting in bed still complaining of chest pain. Pt was updated on findings and results. ADMIT: Given pt's presentation, hx of CAD with a prior IL, and sustained chest pain, pt will be admitted to the hospital. Case is discussed with Dr. Mc, who agreed to admit patient as an observation to floor. Pt updated and agreeable. HISTORY OF PRESENTING ILLNESS NATALIE is a 59 year old Male and was seen by me at 26-Mar-2019 21:02. Triage Information: Most recent Vital Sign Value Date Temp (F): 98.4 03-26-2019 21:37 Temp (C): 36.9 03-26-2019 21:37 Heart [...] Description:Diastolic CHF Description:Mild CAD, but no h/o IL Description:TIA Description:diverticulitis Description:CVA w/ TPA Description:TIA Past [...] SIGNS: T PRBP SpO2O2(LPM) %FiO2 Method 26-Mar-2019 21:37:[id number] 95 room air, no respiratory support 26-Mar-2019 21:00:[id number]/74 95 room air, no respiratory support CLINICAL [...] Provider Note - ED v2 Dipti Paul (Mae) (Entered 26-Mar-2019 21:26) Entered: Provider Note - ED v2 Last Updated: 27-Mar-2019 01:19 by Dulce Mead () [facility] Triage - EDon 03-26-2019 Triage - ED Quick Triage: The patient and/or guardian verbally acknowledges placement for services into the following (when Urgent Care Service hours are operating):emergency department Chart Review: CHIEF COMPLAINT NATALIE GERBER is a Male patient with a chief complaint of chest pain (59 y/o male brought in by ems from [facility] with complaint of chest pain that started 1 hour prior to arrival. Patient states he was riding on a scooter through [facility] when pain started. Patient states he took [...] BMI (kg/m2): 52.058 Calculated BSA (m2) 2.55 [place] Coma Scale: Best Eye Response: (E4) spontaneous Best Motor Response: (M6) obeys commands Best Verbal Response: (V5) oriented Celia Score: 15 [place] Assessment Qualifiers: patient not sedated/intubated Cough lasting greater than 3 weeks: no Patient immunocompromised related to: N/A Travel outside of [facility]: no Allergies: yes Patient has homicidal thoughts: [...] Mode of Arrival: ambulance Unit: 5 Agency: [facility] ([facility]) Accompanied By: kitchen assistant Language: Spoken Language Preferred: Cymro Reading Language Preferred: Cymro Simulation Tech Requested: no etl programmer was requested MDRO: History of MDRO: no [...] states he was at the pharmacy at [facility] and the Pharmacist advised him to that [...] Medical History Reviewedyes Electronic Signatures: Kevin Patton (PIA) (Signed 26-Mar-2019 23:47) Authored: Triage, Past Medical History Last Updated: 26-Mar-2019 23:47 by Kevin Patton (PIA) Normal [facility] CBC Auto Differentialon 03-03 Absolute Baso # 0.1 10*3/uL 0 - 0.2 10*3/uL [place] Absolute Neut # 4.7 10*3/uL 1.8 - 7 10*3/uL [place] Basophils/100 WBC (Bld) 0.8 % 0 - 2 % [place] Eosinophils (Bld) [#/Vol] 0.1 10*3/uL 0 - 0.5 10*3/uL [place] Eosinophils/100 WBC (Bld) 1.9 % 1 - 6 % [place] Erythrocyte distribution width (RBC) [Ratio] 15.2 % High 11.5 - 14.5 % [place] Granulocytes/100 WBC (Bld) 66.4 % 40 - 80 % [place] Hematocrit (Bld) [Volume fraction] 32.7 % Low 40 - 52 % [place] Hemoglobin (Bld) [Mass/Vol] 10.7 g/dL Low 13 - 18 g/dL [place] Interpretation and review of laboratory results Abnormal [place] Lymphocytes (Bld) [#/Vol] 1.8 10*3/uL 1 - 4.3 10*3/uL [place] Lymphocytes/100 WBC (Bld) 25.8 % 20 - 40 % [place] MCH (RBC) [Entitic mass] 28.0 pg 26 - 34 pg [place] MCHC (RBC) [Mass/Vol] 32.6 % 32 - 36 % [place] MCV (RBC) [Entitic vol] 85.9 fL 80 - 98 fL [place] Monocytes (Bld) [#/Vol] 0.4 10*3/uL 0 - 0.8 10*3/uL [place] Monocytes/100 WBC (Bld) 5.1 % 2 - 10 % [place] Platelet mean volume (Bld) [Entitic vol] 7.9 fL 7.4 - 10.4 fL [place] Platelets (Bld) [#/Vol] 241 10*3/uL 140 - 440 10*3/uL [place] RBC (Bld) [#/Vol] 3.81 10*6/uL Low 4.4 - 5.9 10*6/uL [place] WBC (Bld) [#/Vol] 7.0 10*3/uL 3.6 - 10.7 10*3/uL [place] Test Performed by [facility], [place] [address] [place], [place] Comp Metabolic Panelon 03-22 ALP [Catalytic activity/Vol] 149 U/L High 38-126 [facility] Comment on above: Performed By: #### H EMOG, DDI2, BMP3, LIPA4, TROPN, BNP3 #### [facility] [address] [place] [address] ALT [Catalytic activity/Vol] 17 U/L Normal 13-69 [facility] Comment on above: Performed By: #### H EMOG, DDI2, BMP3, LIPA4, TROPN, BNP3 #### [place] [address] [address] [place], [place] Anion gap [Moles/Vol] 6 Normal [facility] Comment on above: Performed By: #### H EMOG, DDI2, BMP3, LIPA4, TROPN, BNP3 #### [place] [address] [address] [place], [place] AST [Catalytic activity/Vol] 35 U/L Normal 15-46 [facility] Comment on above: Performed By: #### H EMOG, DDI2, BMP3, LIPA4, TROPN, BNP3 #### [place] [address] [address] [place], [place] Bilirubin [Mass/Vol] 0.2 mg/dL Normal 0.2-1.3 [facility] Comment on above: Performed By: #### H EMOG, DDI2, BMP3, LIPA4, TROPN, BNP3 #### [place] [address] [address] [place], [place] Calcium [Mass/Vol] 8.9 mg/dL Normal 8.4-10.4 [facility] Comment on above: Performed By: #### H EMOG, DDI2, BMP3, LIPA4, TROPN, BNP3 #### [place] [address] [address] [place], [place] CO2 [Moles/Vol] 26 mmol/L Normal 22-30 [facility] Comment on above: Performed By: #### H EMOG, DDI2, BMP3, LIPA4, TROPN, BNP3 #### [place] [address] [address] [place], [place] Glucose [Mass/Vol] 115 mg/dL High 70-100 [facility] Comment on above: Performed By: #### H EMOG, DDI2, BMP3, LIPA4, TROPN, BNP3 #### [place] [address] [place] Protein [Mass/Vol] 6.7 g/dL Normal 6.3-8.2 [facility] Comment on above: Performed By: #### H EMOG, DDI2, BMP3, LIPA4, TROPN, BNP3 #### [place] [address] [place], [place] Urea nitrogen [Mass/Vol] 8 mg/dL Normal 7-20 [facility] Comment on above: Performed By: #### H EMOG, DDI2, BMP3, LIPA4, TROPN, BNP3 #### [address] Creatinine [Mass/Vol] 0.66 mg/dL Normal 0.52-1.25 [facility] Comment on above: Performed By: #### H EMOG, DDI2, BMP3, LIPA4, TROPN, BNP3 #### [place] [address] [place], [place] GFR/1.73 sq M predicted among blacks MDRD (S/P/Bld) [Vol rate/Area] mL/min/{1.73_m2} Normal >60 [facility] Comment on above: Performed By: #### H EMOG, DDI2, BMP3, LIPA4, TROPN, BNP3 #### [place] [address] [place], [place] GFR/1.73 sq M predicted among non-blacks MDRD (S/P/Bld) [Vol rate/Area] mL/min/{1.73_m2} Normal >60 [facility] Comment on above: Result Comment: Sour ce- MDRD equation with creatinine calibration to IDMS(NKDEP) eGFR not recommended for drug dose adjustment Performed By: #### H EMOG, DDI2, BMP3, LIPA4, TROPN, BNP3 #### [place] [address] [place], [place] Albumin [Mass/Vol] 3.4 g/dL Low 3.5-5.0 [facility] Comment on above: Performed By: #### H EMOG, DDI2, BMP3, LIPA4, TROPN, BNP3 #### [place] [address] [place], [place] Chloride [Moles/Vol] 107 mmol/L Normal 98-107 [facility] Comment on above: Performed By: #### H EMOG, DDI2, BMP3, LIPA4, TROPN, BNP3 #### [address] [address] Potassium [Moles/Vol] 3.9 mmol/L Normal 3.5-5.1 [facility] Comment on above: Performed By: #### H EMOG, DDI2, BMP3, LIPA4, TROPN, BNP3 #### [address] [address] Sodium [Moles/Vol] 139 mmol/L Normal 135-145 [facility] Comment on above: Performed By: #### H EMOG, DDI2, BMP3, LIPA4, TROPN, BNP3 #### [address] [address] Comprehensive Metabolic [place]ane [place] 2019 Albumin [Mass/Vol] 3.4 g/dL Low 3.5 - 5 g/dL [place] ALP [Catalytic activity/Vol] 149 U/L High 38 - 126 U/L [place] ALT [Catalytic activity/Vol] 17 U/L 13 - 69 U/L [place] Anion gap [Moles/Vol] 6 mmol/L [place], [place] AST [Catalytic activity/Vol] 35 U/L 15 - 46 U/L [place] Bilirubin Ql (U) 0.2 mg/dL 0.2 - 1.3 mg/dL [place] Calcium [Mass/Vol] 8.9 mg/dL 8.4 - 10. 4 mg/dL [place] Chloride [Moles/Vol] 107 mmol/L 98 - 10 7 mmol/L [place] CO2 [Moles/Vol] 26 mmol/L 22 - 30 mmol/L [place] Creatinine [Mass/Vol] 0.66 mg/dL 0.52 - 1.25 mg/dL [place] EGFR IF NonAfrican [place]ic >60.0 >60 mL/min [place] Comment on above: Source- MDRD equatio n with creatinine calibration to IDMS(NKDEP) eGFR not recommended for drug dose adjustment GFR/1.73 sq M predicted among blacks MDRD (S/P/Bld) [Vol rate/Area] mL/min/{1.73_m2} >60 mL/min [place] Glucose [Mass/Vol] 115 mg/dL High 70 - 100 mg/dL [place] Interpretation and review of laboratory results Abnormal [place] Potassium [Moles/Vol] 3.9 mmol/L 3.5 - 5.1 mmol/L [place] Protein [Mass/Vol] 6.7 g/dL 6.3 - 8.2 g/dL [place] Sodium [Moles/Vol] 139 mmol/L 135 - 145 mmol/L [place] Urea nitrogen [Mass/Vol] 8 mg/dL 7 - 20 mg/dL [place] Test Performed by [id number] [place] [address] Hemogram w/ Autodiffon 03-22 Abs Baso Cnt 0.1 10*3/uL Normal 0.0-0.2 [facility] Comment on above: Performed By: #### H EMOG, DDI2, BMP3, LIPA4, TROPN, BNP3 #### [address] [address] Abs Neutrophile Cnt 4.7 10*3/uL Normal 1.8-7.0 [facility] Comment on above: Performed By: #### H EMOG, DDI2, BMP3, LIPA4, TROPN, BNP3 #### [address] [address] Basophils/100 WBC (Bld) 0.8 % Normal 0.0-2.0 [facility] Comment on above: Performed By: #### H EMOG, DDI2, BMP3, LIPA4, TROPN, BNP3 #### [address] [address] Eosinophils (Bld) [#/Vol] 0.1 10*3/uL Normal 0.0-0.5 [facility] Comment on above: Performed By: #### H EMOG, DDI2, BMP3, LIPA4, TROPN, BNP3 #### [address] Eosinophils/100 WBC (Bld) 1.9 % Normal 1.0-6.0 [facility] Comment on above: Performed By: #### H EMOG, DDI2, BMP3, LIPA4, TROPN, BNP3 #### [address] Erythrocyte distribution width (RBC) [Ratio] 15.2 % High 11.5-14.5 [facility] Comment on above: Performed By: #### H EMOG, DDI2, BMP3, LIPA4, TROPN, BNP3 #### [address] Granulocytes/100 WBC (Bld) 66.4 % Normal 40.0-80.0 [facility] Comment on above: Performed By: #### H EMOG, DDI2, BMP3, LIPA4, TROPN, BNP3 #### [address] Hematocrit (Bld) [Volume fraction] 32.7 % Low 40.0-52.0 [facility] Comment on above: Performed By: #### H EMOG, DDI2, BMP3, LIPA4, TROPN, BNP3 #### [address] Hemoglobin (Bld) [Mass/Vol] 10.7 g/dL Low 13.0-18.0 [facility] Comment on above: Performed By: #### H EMOG, DDI2, BMP3, LIPA4, TROPN, BNP3 #### [address] Lymphocytes (Bld) [#/Vol] 1.8 10*3/uL Normal 1.0-4.3 [facility] Comment on above: Performed By: #### H EMOG, DDI2, BMP3, LIPA4, TROPN, BNP3 #### [place] [address] [address] [place], [place] Lymphocytes/100 WBC (Bld) 25.8 % Normal 20.0-40.0 [facility] Comment on above: Performed By: #### H EMOG, DDI2, BMP3, LIPA4, TROPN, BNP3 #### [address] MCH (RBC) [Entitic mass] 28.0 pg Normal 26.0-34.0 [facility] Comment on above: Performed By: #### H EMOG, DDI2, BMP3, LIPA4, TROPN, BNP3 #### [address] MCHC (RBC) [Mass/Vol] 32.6 % Normal 32.0-36.0 [facility] Comment on above: Performed By: #### H EMOG, DDI2, BMP3, LIPA4, TROPN, BNP3 #### [address] MCV (RBC) [Entitic vol] 85.9 fL Normal 80.0-98.0 [facility] Comment on above: Performed By: #### H EMOG, DDI2, BMP3, LIPA4, TROPN, BNP3 #### [address] Monocytes (Bld) [#/Vol] 0.4 10*3/uL Normal 0.0-0.8 [facility] Comment on above: Performed By: #### H EMOG, DDI2, BMP3, LIPA4, TROPN, BNP3 #### [address] Monocytes/100 WBC (Bld) 5.1 % Normal 2.0-10.0 [facility] Comment on above: Performed By: #### H EMOG, DDI2, BMP3, LIPA4, TROPN, BNP3 #### [address] Platelet mean volume (Bld) [Entitic vol] 7.9 fL Normal 7.4-10.4 [facility] Comment on above: Performed By: #### H EMOG, DDI2, BMP3, LIPA4, TROPN, BNP3 #### [facility] [address], [place] Platelets (Bld) [#/Vol] 241 10*3/uL Normal 140-440 [facility] Comment on above: Performed By: #### H EMOG, DDI2, BMP3, LIPA4, TROPN, BNP3 #### [facility] [address] [place], [place] RBC (Bld) [#/Vol] 3.81 10*6/uL Low 4.40-5.90 [facility] Comment on above: Performed By: #### H EMOG, DDI2, BMP3, LIPA4, TROPN, BNP3 #### [place] [address] [address] [place] WBC (Bld) [#/Vol] 7.0 10*3/uL Normal 3.6-10.7 [facility] Comment on above: Performed By: #### H EMOG, DDI2, BMP3, LIPA4, TROPN, BNP3 #### [place] [address] [address] [place], [place] MRI LUMBAR SPINE W JERED [place] 2019 [place], [facility] Incoming Radiology Results From [facility] - 2019 7:28 PM EDT Patient Name: NATALIE GERBER ---MRI--- Exam Date/Time 2019 16:30:29 EDT Exam MRI Spine Lumbar w/ + w/o Contrast Ordering Physician MD KEVAN, SUNNY FERNÁNDEZ Accession Number [id number] CPT4 Codes 82210 () Reason For Exam left leg weakness, [...] NEIL Transcribed Date and Time: 2019 7:16 [place], [place] Patient Name: NATALIE GERBER ---MRI--- Exam Date/Time 2019 16:30:29 EDT Exam MRI Spine Lumbar w/ + w/o Contrast Ordering Physician MD KEVAN, SUNNY FERNÁNDEZ Accession Number [id number] CPT4 Codes 15476 () Reason For Exam left leg weakness, [...] NEIL Transcribed Date and Time: 2019 7:16 [place], [place] MRI Spine Lumbar w/ + w/o Co ntraston 2019 MRI Spine Lumbar w/ + w/o Contrast Patient Name: NATALIE GERBER MRI Exam Date/Time 2019 16:30:29 EDT Exam MRI Spine Lumbar w/ + w/o Contrast Ordering Physician MD KEVAN, SUNNY FERNÁNDEZ Accession Number [id number] CPT4 Codes 35630 () Reason For Exam left leg weakness, [...] Transcribed Date and Time: 2019 7:16 Normal [facility] CBC Auto Differentialon 03-03 Absolute Baso # 0.1 10*3/uL 0 - 0.2 10*3/uL [place] Absolute Neut # 6.2 10*3/uL 1.8 - 7 10*3/uL [place] Basophils/100 WBC (Bld) 0.9 % 0 - 2 % [place] Eosinophils (Bld) [#/Vol] 0.2 10*3/uL 0 - 0.5 10*3/uL [place] Eosinophils/100 WBC (Bld) 1.8 % 1 - 6 % [place] Erythrocyte distribution width (RBC) [Ratio] 15.1 % High 11.5 - 14.5 % [place] Granulocytes/100 WBC (Bld) 70.7 % 40 - 80 % [place] Hematocrit (Bld) [Volume fraction] 33.5 % Low 40 - 52 % [place] Hemoglobin (Bld) [Mass/Vol] 11.0 g/dL Low 13 - 18 g/dL [place] Interpretation and review of laboratory results Abnormal [place] Lymphocytes (Bld) [#/Vol] 1.8 10*3/uL 1 - 4.3 10*3/uL [place] Lymphocytes/100 WBC (Bld) 20.7 % 20 - 40 % [place] MCH (RBC) [Entitic mass] 28.0 pg 26 - 34 pg [place] MCHC (RBC) [Mass/Vol] 32.9 % 32 - 36 % [place] MCV (RBC) [Entitic vol] 85.2 fL 80 - 98 fL [place] Monocytes (Bld) [#/Vol] 0.5 10*3/uL 0 - 0.8 10*3/uL [place] Monocytes/100 WBC (Bld) 5.9 % 2 - 10 % [place] Platelet mean volume (Bld) [Entitic vol] 7.9 fL 7.4 - 10.4 fL [place] Platelets (Bld) [#/Vol] 250 10*3/uL 140 - 440 10*3/uL [place] RBC (Bld) [#/Vol] 3.93 10*6/uL Low 4.4 - 5.9 10*6/uL [place] WBC (Bld) [#/Vol] 8.8 10*3/uL 3.6 - 10.7 10*3/uL [place] Test Performed by [facility], [address] [place] [id number] [place] [address] Comp Metabolic Panelon 03-21 ALP [Catalytic activity/Vol] 158 U/L High 38-126 [facility] Comment on above: Performed By: #### H EMOG, DDI2, BMP3, LIPA4, TROPN, BNP3 #### [address] [address] ALT [Catalytic activity/Vol] 17 U/L Normal 13-69 [facility] Comment on above: Performed By: #### H EMOG, DDI2, BMP3, LIPA4, TROPN, BNP3 #### [address] [address] Calcium [Mass/Vol] 8.9 mg/dL Normal 8.4-10.4 [facility] Comment on above: Performed By: #### H EMOG, DDI2, BMP3, LIPA4, TROPN, BNP3 #### [address] [address] Glucose [Mass/Vol] 102 mg/dL High 70-100 [facility] Comment on above: Performed By: #### H EMOG, DDI2, BMP3, LIPA4, TROPN, BNP3 #### [address] [address] Protein [Mass/Vol] 7.1 g/dL Normal 6.3-8.2 [facility] Comment on above: Performed By: #### H EMOG, DDI2, BMP3, LIPA4, TROPN, BNP3 #### [place] [address] [address] [place], [place] Urea nitrogen [Mass/Vol] 14 mg/dL Normal 7-20 [facility] Comment on above: Performed By: #### H EMOG, DDI2, BMP3, LIPA4, TROPN, BNP3 #### [place] [address] [address] [place], [place] Anion gap [Moles/Vol] 9 Normal [facility] Comment on above: Performed By: #### H EMOG, DDI2, BMP3, LIPA4, TROPN, BNP3 #### [place] [address] [address] [place], [place] AST [Catalytic activity/Vol] 20 U/L Normal 15-46 [facility] Comment on above: Performed By: #### H EMOG, DDI2, BMP3, LIPA4, TROPN, BNP3 #### [place] [address] [address] [place], [place] Bilirubin [Mass/Vol] 0.4 mg/dL Normal 0.2-1.3 [facility] Comment on above: Performed By: #### H EMOG, DDI2, BMP3, LIPA4, TROPN, BNP3 #### [place] [address] [address] [place], [place] CO2 [Moles/Vol] 25 mmol/L Normal 22-30 [facility] Comment on above: Performed By: #### H EMOG, DDI2, BMP3, LIPA4, TROPN, BNP3 #### [place] [address] [address] [place], [place] Creatinine [Mass/Vol] 0.71 mg/dL Normal 0.52-1.25 [facility] Comment on above: Performed By: #### H EMOG, DDI2, BMP3, LIPA4, TROPN, BNP3 #### [place] [address] [address] [place], [place] GFR/1.73 sq M predicted among blacks MDRD (S/P/Bld) [Vol rate/Area] mL/min/{1.73_m2} Normal >60 [facility] Comment on above: Performed By: #### H EMOG, DDI2, BMP3, LIPA4, TROPN, BNP3 #### [place] [address] [place] GFR/1.73 sq M predicted among non-blacks MDRD (S/P/Bld) [Vol rate/Area] mL/min/{1.73_m2} Normal >60 [facility] Comment on above: Result Comment: Sour ce- MDRD equation with creatinine calibration to IDMS(NKDEP) eGFR not recommended for drug dose adjustment Performed By: #### H EMOG, DDI2, BMP3, LIPA4, TROPN, BNP3 #### [address] Chloride [Moles/Vol] 105 mmol/L Normal 98-107 [facility] Comment on above: Performed By: #### H EMOG, DDI2, BMP3, LIPA4, TROPN, BNP3 #### [address] Potassium [Moles/Vol] 4.0 mmol/L Normal 3.5-5.1 [facility] Comment on above: Performed By: #### H EMOG, DDI2, BMP3, LIPA4, TROPN, BNP3 #### [address] Sodium [Moles/Vol] 139 mmol/L Normal 135-145 [facility] Comment on above: Performed By: #### H EMOG, DDI2, BMP3, LIPA4, TROPN, BNP3 #### [address] Albumin [Mass/Vol] 3.7 g/dL Normal 3.5-5.0 [facility] Comment on above: Performed By: #### H EMOG, DDI2, BMP3, LIPA4, TROPN, BNP3 #### [address] [place] [address] [place], [place] Comprehensive Metabolic Pane [place] 03-21-2019 Albumin [Mass/Vol] 3.7 g/dL 3.5 - 5 g/dL [place] ALP [Catalytic activity/Vol] 158 U/L High 38 - 126 U/L [place] ALT [Catalytic activity/Vol] 17 U/L 13 - 69 U/L [place] Anion gap [Moles/Vol] 9 mmol/L [place], [place] AST [Catalytic activity/Vol] 20 U/L 15 - 46 U/L [place] Bilirubin Ql (U) 0.4 mg/dL 0.2 - 1.3 mg/dL [place] Calcium [Mass/Vol] 8.9 mg/dL 8.4 - 10. 4 mg/dL [place] Chloride [Moles/Vol] 105 mmol/L 98 - 10 7 mmol/L [place] CO2 [Moles/Vol] 25 mmol/L 22 - 30 mmol/L [place] Creatinine [Mass/Vol] 0.71 mg/dL 0.52 - 1.25 mg/dL [place] EGFR IF NonAfrican Green[place]ic >60.0 >60 mL/min [place] Comment on above: Source- MDRD equatio n with creatinine calibration to IDMS(NKDEP) eGFR not recommended for drug dose adjustment GFR/1.73 sq M predicted among blacks MDRD (S/P/Bld) [Vol rate/Area] mL/min/{1.73_m2} >60 mL/min [place] Glucose [Mass/Vol] 102 mg/dL High 70 - 100 mg/dL [place] Interpretation and review of laboratory results Abnormal [place] Potassium [Moles/Vol] 4.0 mmol/L 3.5 - 5.1 mmol/L [place] Protein [Mass/Vol] 7.1 g/dL 6.3 - 8.2 g/dL [place] Sodium [Moles/Vol] 139 mmol/L 135 - 145 mmol/L [place] Urea nitrogen [Mass/Vol] 14 mg/dL 7 - 20 mg/dL [place] Test Performed by [facility], [address] [place] [address] [place], [place] Drugs of Abuseon 03-21-2019 Phencyclidine (PCP), Ur Negative Normal [facility] Comment on above: Result Comment: The expected [...] EMOG, DDI2, BMP3, LIPA4, TROPN, BNP3 #### [facility] [address] [place], [place] Cocaine, Ur Negative Normal [facility] Comment on above: Performed By: #### H EMOG, DDI2, BMP3, LIPA4, TROPN, BNP3 #### [facility] [address] [place], [place] Methadone, Ur Negative Normal [facility] Comment on above: Performed By: #### H EMOG, DDI2, BMP3, LIPA4, TROPN, BNP3 #### [facility] [address] [place], [place] Opiates, Ur Positive Normal [facility] Comment on above: Performed By: #### H EMOG, DDI2, BMP3, LIPA4, TROPN, BNP3 #### [facility] [address] [place], [place] Amphetamines, Ur Positive Normal [facility] Comment on above: Performed By: #### H EMOG, DDI2, BMP3, LIPA4, TROPN, BNP3 #### [facility] [address] [place], [place] Barbiturates, Ur Negative Normal [facility] Comment on above: Performed By: #### H EMOG, DDI2, BMP3, LIPA4, TROPN, BNP3 #### [address] [place] [address] [address] [place], [place] Benzodiazepines, Ur Negative Normal [facility] Comment on above: Performed By: #### H EMOG, DDI2, BMP3, LIPA4, TROPN, BNP3 #### [address] [address] [address] [place], [place] Oxycodone/Oxymorphine ,Ur Positive Normal [facility] Comment on above: Performed By: #### H EMOG, DDI2, BMP3, LIPA4, TROPN, BNP3 #### [address] [place] [address] [address] [place], [place] Hemogram w/ Autodiffon 03-21 Abs Baso Cnt 0.1 10*3/uL Normal 0.0-0.2 [facility] Comment on above: Performed By: #### H EMOG, DDI2, BMP3, LIPA4, TROPN, BNP3 #### [address] [address] [address] [place], [place] Abs Neutrophile Cnt 6.2 10*3/uL Normal 1.8-7.0 [facility] Comment on above: Performed By: #### H EMOG, DDI2, BMP3, LIPA4, TROPN, BNP3 #### [address] [address] [address] [place], [place] Basophils/100 WBC (Bld) 0.9 % Normal 0.0-2.0 [facility] Comment on above: Performed By: #### H EMOG, DDI2, BMP3, LIPA4, TROPN, BNP3 #### [address] [address] [address] [place], [place] Eosinophils (Bld) [#/Vol] 0.2 10*3/uL Normal 0.0-0.5 [facility] Comment on above: Performed By: #### H EMOG, DDI2, BMP3, LIPA4, TROPN, BNP3 #### [address] [address] [place] Eosinophils/100 WBC (Bld) 1.8 % Normal 1.0-6.0 [facility] Comment on above: Performed By: #### H EMOG, DDI2, BMP3, LIPA4, TROPN, BNP3 #### [address] Erythrocyte distribution width (RBC) [Ratio] 15.1 % High 11.5-14.5 [facility] Comment on above: Performed By: #### H EMOG, DDI2, BMP3, LIPA4, TROPN, BNP3 #### [address] Granulocytes/100 WBC (Bld) 70.7 % Normal 40.0-80.0 [facility] Comment on above: Performed By: #### H EMOG, DDI2, BMP3, LIPA4, TROPN, BNP3 #### [address] Hematocrit (Bld) [Volume fraction] 33.5 % Low 40.0-52.0 [facility] Comment on above: Performed By: #### H EMOG, DDI2, BMP3, LIPA4, TROPN, BNP3 #### [address] Hemoglobin (Bld) [Mass/Vol] 11.0 g/dL Low 13.0-18.0 [facility] Comment on above: Performed By: #### H EMOG, DDI2, BMP3, LIPA4, TROPN, BNP3 #### [address] Lymphocytes (Bld) [#/Vol] 1.8 10*3/uL Normal 1.0-4.3 [facility] Comment on above: Performed By: #### H EMOG, DDI2, BMP3, LIPA4, TROPN, BNP3 #### [address] Lymphocytes/100 WBC (Bld) 20.7 % Normal 20.0-40.0 [facility] Comment on above: Performed By: #### H EMOG, DDI2, BMP3, LIPA4, TROPN, BNP3 #### [address] [address] [address] [place], [place] MCH (RBC) [Entitic mass] 28.0 pg Normal 26.0-34.0 [facility] Comment on above: Performed By: #### H EMOG, DDI2, BMP3, LIPA4, TROPN, BNP3 #### [address] [address] [place] MCHC (RBC) [Mass/Vol] 32.9 % Normal 32.0-36.0 [facility] Comment on above: Performed By: #### H EMOG, DDI2, BMP3, LIPA4, TROPN, BNP3 #### [address] MCV (RBC) [Entitic vol] 85.2 fL Normal 80.0-98.0 [facility] Comment on above: Performed By: #### H EMOG, DDI2, BMP3, LIPA4, TROPN, BNP3 #### [address] [address] [address] [place], [place] Monocytes (Bld) [#/Vol] 0.5 10*3/uL Normal 0.0-0.8 [facility] Comment on above: Performed By: #### H EMOG, DDI2, BMP3, LIPA4, TROPN, BNP3 #### [address] Monocytes/100 WBC (Bld) 5.9 % Normal 2.0-10.0 [facility] Comment on above: Performed By: #### H EMOG, DDI2, BMP3, LIPA4, TROPN, BNP3 #### [address] Platelet mean volume (Bld) [Entitic vol] 7.9 fL Normal 7.4-10.4 [facility] Comment on above: Performed By: #### H EMOG, DDI2, BMP3, LIPA4, TROPN, BNP3 #### [address] Platelets (Bld) [#/Vol] 250 10*3/uL Normal 140-440 [facility] Comment on above: Performed By: #### H EMOG, DDI2, BMP3, LIPA4, TROPN, BNP3 #### [address] [address] [place] RBC (Bld) [#/Vol] 3.93 10*6/uL Low 4.40-5.90 [facility] Comment on above: Performed By: #### H EMOG, DDI2, BMP3, LIPA4, TROPN, BNP3 #### [facility] [address] [place], [place] WBC (Bld) [#/Vol] 8.8 10*3/uL Normal 3.6-10.7 [facility] Comment on above: Performed By: #### H EMOG, DDI2, BMP3, LIPA4, TROPN, BNP3 #### [address] URINE DRUG SCREENon 03-21-20 19 Amphetamines, urine [...] confirmation under separate order. Test Performed by [facility], [address] [place] [address] [place], [place] Basic Metabolic Panelon 10- Calcium [Mass/Vol] 8.2 mg/dL Low 8.4-10.4 [facility] Comment on above: Performed By: #### H EMOG, DDI2, BMP3, LIPA4, TROPN, BNP3 #### [facility] [address] [place] [address] Glucose [Mass/Vol] 100 mg/dL Normal 70-100 [facility] Comment on above: Performed By: #### H EMOG, DDI2, BMP3, LIPA4, TROPN, BNP3 #### [address] [address] [place] [address] Anion gap [Moles/Vol] 7 Normal [facility] Comment on above: Performed By: #### H EMOG, DDI2, BMP3, LIPA4, TROPN, BNP3 #### [address] [address] [address] [place] CO2 [Moles/Vol] 24 mmol/L Normal 22-30 [facility] Comment on above: Performed By: #### H EMOG, DDI2, BMP3, LIPA4, TROPN, BNP3 #### [address] [address] [place] [address] Creatinine [Mass/Vol] 0.62 mg/dL Normal 0.52-1.25 [facility] Comment on above: Performed By: #### H EMOG, DDI2, BMP3, LIPA4, TROPN, BNP3 #### [address] [address] [place] [address] GFR/1.73 sq M predicted among blacks MDRD (S/P/Bld) [Vol rate/Area] mL/min/{1.73_m2} Normal >60 [facility] Comment on above: Performed By: #### H EMOG, DDI2, BMP3, LIPA4, TROPN, BNP3 #### [address] [address] [place] [address] GFR/1.73 sq M predicted among non-blacks MDRD (S/P/Bld) [Vol rate/Area] mL/min/{1.73_m2} Normal >60 [facility] Comment on above: Result Comment: Sour ce- MDRD equation with creatinine calibration to IDMS(NKDEP) eGFR not recommended for drug dose adjustment Performed By: #### H EMOG, DDI2, BMP3, LIPA4, TROPN, BNP3 #### [address] [address] [address] [place] Urea nitrogen [Mass/Vol] 11 mg/dL Normal 7-20 [facility] Comment on above: Performed By: #### H EMOG, DDI2, BMP3, LIPA4, TROPN, BNP3 #### [address] [address] [address] [place] Chloride [Moles/Vol] 108 mmol/L High 98-107 [facility] Comment on above: Performed By: #### H EMOG, DDI2, BMP3, LIPA4, TROPN, BNP3 #### [address] [address] [address] [place] Potassium [Moles/Vol] 3.3 mmol/L Low 3.5-5.1 [facility] Comment on above: Performed By: #### H EMOG, DDI2, BMP3, LIPA4, TROPN, BNP3 #### [address] [address] [address] [place] Sodium [Moles/Vol] 139 mmol/L Normal 135-145 [facility] Comment on above: Performed By: #### H EMOG, DDI2, BMP3, LIPA4, TROPN, BNP3 #### [address] [address] [address] [place], [place] Anion gap [Moles/Vol] 7 mmol/L [facility], [place] Calcium [Mass/Vol] 8.2 mg/dL Low 8.4 - 10. 4 mg/dL [place] Chloride [Moles/Vol] 108 mmol/L High 98 - 10 7 mmol/L [place] CO2 [Moles/Vol] 24 mmol/L 22 - 30 mmol/L [place] Creatinine [Mass/Vol] 0.62 mg/dL 0.52 - 1.25 mg/dL [place] EGFR IF NonAfrican [place]ic >60.0 >60 mL/min [place] Comment on above: Source- MDRD equatio n with creatinine calibration to IDMS(NKDEP) eGFR not recommended for drug dose adjustment GFR/1.73 sq M predicted among blacks MDRD (S/P/Bld) [Vol rate/Area] mL/min/{1.73_m2} >60 mL/min [place] Glucose [Mass/Vol] 100 mg/dL 70 - 100 mg/dL [place] Potassium [Moles/Vol] 3.3 mmol/L Low 3.5 - 5.1 mmol/L [place] Sodium [Moles/Vol] 139 mmol/L 135 - 145 mmol/L [place] Urea nitrogen [Mass/Vol] 11 mg/dL 7 - 20 mg/dL [place] C-Reactive Proteinon CRP [Mass/Vol] 40.7 mg/L High 0.0-6.0 [facility] Comment on above: Result Comment: . Performed By: #### H EMOG, DDI2, BMP3, LIPA4, TROPN, BNP3 #### [facility] [employer] [facility] [address] [place], [place] CRP [Mass/Vol] 40.7 mg/L High 0 - 6 mg/L [place] Comment on above: . Hemogramon 03-20-2019 Erythrocyte distribution width (RBC) [Ratio] 15.5 % High 11.5-14.5 [facility] Comment on above: Performed By: #### H EMOG, DDI2, BMP3, LIPA4, TROPN, BNP3 #### [facility] [address] [place], [place] Hematocrit (Bld) [Volume fraction] 33.2 % Low 40.0-52.0 [facility] Comment on above: Performed By: #### H EMOG, DDI2, BMP3, LIPA4, TROPN, BNP3 #### [facility] [employer] [facility] [address] [place], [place] Hemoglobin (Bld) [Mass/Vol] 10.8 g/dL Low 13.0-18.0 [facility] Comment on above: Performed By: #### H EMOG, DDI2, BMP3, LIPA4, TROPN, BNP3 #### [address] MCH (RBC) [Entitic mass] 27.7 pg Normal 26.0-34.0 [facility] Comment on above: Performed By: #### H EMOG, DDI2, BMP3, LIPA4, TROPN, BNP3 #### [address] MCHC (RBC) [Mass/Vol] 32.7 % Normal 32.0-36.0 [facility] Comment on above: Performed By: #### H EMOG, DDI2, BMP3, LIPA4, TROPN, BNP3 #### [address] MCV (RBC) [Entitic vol] 84.8 fL Normal 80.0-98.0 [facility] Comment on above: Performed By: #### H EMOG, DDI2, BMP3, LIPA4, TROPN, BNP3 #### [address] Platelet mean volume (Bld) [Entitic vol] 7.8 fL Normal 7.4-10.4 [facility] Comment on above: Performed By: #### H EMOG, DDI2, BMP3, LIPA4, TROPN, BNP3 #### [address] Platelets (Bld) [#/Vol] 269 10*3/uL Normal 140-440 [facility] Comment on above: Performed By: #### H EMOG, DDI2, BMP3, LIPA4, TROPN, BNP3 #### [address] RBC (Bld) [#/Vol] 3.91 10*6/uL Low 4.40-5.90 [facility] Comment on above: Performed By: #### H EMOG, DDI2, BMP3, LIPA4, TROPN, BNP3 #### [facility] [address] [place] [address] WBC (Bld) [#/Vol] 8.9 10*3/uL Normal 3.6-10.7 [facility] Comment on above: Performed By: #### H EMOG, DDI2, BMP3, LIPA4, TROPN, BNP3 #### [facility] [address] [place] [address] Hemogram (CBC)on 03-20-2019 Erythrocyte distribution width (RBC) [Ratio] 15.5 % High 11.5 - 14.5 % [place] Hematocrit (Bld) [Volume fraction] 33.2 % Low 40 - 52 % [place] Hemoglobin (Bld) [Mass/Vol] 10.8 g/dL Low 13 - 18 g/dL [place] Interpretation and review of laboratory results Abnormal [place] MCH (RBC) [Entitic mass] 27.7 pg 26 - 34 pg [place] MCHC (RBC) [Mass/Vol] 32.7 % 32 - 36 % [place] MCV (RBC) [Entitic vol] 84.8 fL 80 - 98 fL [place] Platelet mean volume (Bld) [Entitic vol] 7.8 fL 7.4 - 10.4 fL [place] Platelets (Bld) [#/Vol] 269 10*3/uL 140 - 440 10*3/uL [place] RBC (Bld) [#/Vol] 3.91 10*6/uL Low 4.4 - 5.9 10*6/uL [place] WBC (Bld) [#/Vol] 8.9 10*3/uL 3.6 - 10.7 10*3/uL [place] Test Performed by [facility], [address] [place] [id number] [place] [address] Otheron 03-20-2019 Interpretation and review of laboratory results Abnormal [place] Test Performed by [facility], [address] [place] [address] [place] Sed Rateon 03-20-2019 Sed Rate 45 mm/h High 0-10 [place] Comment on above: Performed By: #### H EMOG, DDI2, BMP3, LIPA4, TROPN, BNP3 #### [address] [address] [place] [address] Sedimentation Rateon 019 Interpretation and review of laboratory results Abnormal [place] Test Performed by [facility], [address] [place] [address] [place], [place] Comprehensive Panelon 2018 ALP [Catalytic activity/Vol] 177 U/L High 45-117 [facility] Comment on above: Performed By: #### P BNP #### [address] [address] Bilirubin [Mass/Vol] 0.4 mg/dL Normal 0.2-1.0 [facility] Comment on above: Performed By: #### P BNP #### [facility] [address] [place], [place] [address] Protein [Mass/Vol] 8.3 g/dL High 6.4-8.2 [facility] Comment on above: Performed By: #### P BNP #### [address] [address] ALT [Catalytic activity/Vol] 12 U/L Normal 12-78 [facility] Comment on above: Performed By: #### P BNP #### [facility] [address] [place], [place] [address] AST [Catalytic activity/Vol] 12 U/L Low 15-37 [facility] Comment on above: Performed By: #### P BNP #### [facility] [address] [place], [place] [address] Creatinine [Mass/Vol] 0.77 mg/dL Normal 0.67-1.17 [facility] Comment on above: Performed By: #### P BNP #### [facility] [address] [place], [place] [address] Albumin [Mass/Vol] 3.7 g/dL Normal 3.4-5.0 [facility] Comment on above: Performed By: #### P BNP #### [facility] [address] [place], [place] [address] Anion gap [Moles/Vol] 11 mmol/L Normal 8-16 [facility] Comment on above: Performed By: #### P BNP #### [facility] [address] [place], [place] [address] Calcium [Mass/Vol] 8.8 mg/dL Normal 8.5-10.1 [facility] Comment on above: Performed By: #### P BNP #### [facility] [address] [place], [place] [address] CO2 [Moles/Vol] 27 mmol/L Normal 21-32 [facility] Comment on above: Performed By: #### P BNP #### [facility] [address] [place], [place] [address] Glucose [Mass/Vol] 103 mg/dL High 70-99 [facility] Comment on above: Performed By: #### P BNP #### [facility] [address] [place], [place] [address] Urea nitrogen [Mass/Vol] 11 mg/dL Normal 7-18 [facility] Comment on above: Performed By: #### P BNP #### [facility] [address] [place], [place] [address] Chloride [Moles/Vol] 104 mmol/L Normal 98-107 [facility] Comment on above: Performed By: #### P BNP #### [address] [address] Potassium [Moles/Vol] 3.7 mmol/L Normal 3.5-5.1 [facility] Comment on above: Performed By: #### P BNP #### [facility] [address] [place], [place] [address] Sodium [Moles/Vol] 138 mmol/L Normal 136-145 [facility] Comment on above: Performed By: #### P BNP #### [address] [address] [facility] Troponin Ion 03-19-2019 Troponin I.cardiac [Mass/Vol] ng/mL Normal 0.015-0.04 5 [facility] Comment on above: Performed By: #### P BNP #### [facility] [address] [address] MDRD GFRon 03-19-2019 GFR/1.73 sq M predicted among non-blacks MDRD (S/P/Bld) [Vol rate/Area] mL/min/{1.73_m2} Normal >60mL/min/ 1.73m2 [facility] Comment on above: Result Comment: If t he patient is , multiply the result by 1.210. Performed By: #### P BNP #### [place] [address] Magnesium Bloodon 03-19-2019 Magnesium [Mass/Vol] 2.1 mg/dL Normal 1.6-2.6 [facility] Comment on above: Performed By: #### P BNP #### [place] [address] Troponin Ion 03-19-2019 Troponin I.cardiac [Mass/Vol] ng/mL Normal 0.015-0.[address] [place] [address] Comment on above: Performed By: #### G FR #### [place] [address] Troponin I.cardiac [Mass/Vol] ng/mL Normal 0.015-0.[address] [place] [address] Comment on above: Performed By: #### P BNP #### [place] [address] XR CHEST 2V FRONTAL/LATon XR CHEST 2V [...] thoracic spondylosis. IMPRESSION: No acute radiographic abnormality. Woodworker: PSCOlivia Transcribe Date/Time: Mar 18 2019 10:23P Dictated by : MAYRA COPE MD This examination was interpreted and the report reviewed and electronically signed by: MAYRA COPE MD on Mar 18 2019 10:23PM EST Normal [facility] Hemogramon 03-18-2019 Erythrocyte distribution width (RBC) [Ratio] 14.4 % Normal 11.6-14.4 [facility] Comment on above: Performed By: #### P BNP #### [place] [address] Hematocrit (Bld) [Volume fraction] 38.5 % Low 40.1-51.0 [facility] Comment on above: Performed By: #### P BNP #### [place] [address] Hemoglobin (Bld) [Mass/Vol] 11.5 g/dL Low 13.7-17.5 [facility] Comment on above: Performed By: #### P BNP #### [place] [address] MCH (RBC) [Entitic mass] 27.2 pg Normal 25.7-32.2 [facility] Comment on above: Performed By: #### P BNP #### [place] [address] MCHC (RBC) [Mass/Vol] 29.9 % Low 32.3-36.5 [facility] Comment on above: Performed By: #### P BNP #### [place] [address] MCV (RBC) [Entitic vol] 91.0 fL Normal 83.2-95.6 [facility] Comment on above: Performed By: #### P BNP #### [place] [address] Platelet mean volume (Bld) [Entitic vol] 9.7 fL Normal 8.7-12.0 [facility] Comment on above: Performed By: #### P BNP #### [address] [place], [place] [address] Platelets (Bld) [#/Vol] 262 thou/cmm Normal 141-365 [facility] Comment on above: Performed By: #### P BNP #### [facility] [address] [place], [place] [address] RBC (Bld) [#/Vol] 4.23 mil/cmm Low 4.63-6.08 [facility] Comment on above: Performed By: #### P BNP #### [facility] [address] [place], [place] [address] RDW SD 47.8 fl High 36.1-45.8 [facility] Comment on above: Performed By: #### P BNP #### [facility] [address] [place], [place] [address] WBC (Bld) [#/Vol] 12.68 thou/cmm High 4.23-9.07 [facility] Comment on above: Performed By: #### P BNP #### [facility] [address] [place], [place] [address] CBC Auto Differentialon 10-0 Absolute Baso # 0.1 10*3/uL 0 - 0.2 10*3/uL [place] Absolute Neut # 5.3 10*3/uL 1.8 - 7 10*3/uL [place] Basophils/100 WBC (Bld) 1.3 % 0 - 2 % [place] Eosinophils (Bld) [#/Vol] 0.1 10*3/uL 0 - 0.5 10*3/uL [place] Eosinophils/100 WBC (Bld) 1.8 % 1 - 6 % [place] Erythrocyte distribution width (RBC) [Ratio] 15.0 % High 11.5 - 14.5 % [place] Granulocytes/100 WBC (Bld) 71.3 % 40 - 80 % [place] Hematocrit (Bld) [Volume fraction] 31.9 % Low 40 - 52 % [place] Hemoglobin (Bld) [Mass/Vol] 10.7 g/dL Low 13 - 18 g/dL [place] Lymphocytes (Bld) [#/Vol] 1.6 10*3/uL 1 - 4.3 10*3/uL [place] Lymphocytes/100 WBC (Bld) 21.6 % 20 - 40 % [place] MCH (RBC) [Entitic mass] 28.3 pg 26 - 34 pg [place] MCHC (RBC) [Mass/Vol] 33.5 % 32 - 36 % [place] MCV (RBC) [Entitic vol] 84.6 fL 80 - 98 fL [place] Monocytes (Bld) [#/Vol] 0.3 10*3/uL 0 - 0.8 10*3/uL [place] Monocytes/100 WBC (Bld) 4.0 % 2 - 10 % [place] Platelet mean volume (Bld) [Entitic vol] 7.6 fL 7.4 - 10.4 fL [place] Platelets (Bld) [#/Vol] 230 10*3/uL 140 - 440 10*3/uL [place] RBC (Bld) [#/Vol] 3.77 10*6/uL Low 4.4 - 5.9 10*6/uL [place] WBC (Bld) [#/Vol] 7.4 10*3/uL 3.6 - 10.7 10*3/uL [place] Test Performed by [facility], [address] [place] [address] [place] CKon 03-09-2019 CK [Catalytic activity/Vol] 138 U/L Normal 30-170 [facility] Comment on above: Performed By: #### H EMDF, CMP3, CK3, TROPN #### [address] [address] Total CK 138 U/L 30 - 170 U/L [place] Comp Metabolic Panelon 03-09 ALT [Catalytic activity/Vol] 14 U/L Normal 13-69 [place] Comment on above: Performed By: #### H EMDF, CMP3, CK3, TROPN #### [facility] [address], [place] Calcium [Mass/Vol] 9.1 mg/dL Normal 8.4-10.4 [place], [place] Comment on above: Performed By: #### H EMDF, CMP3, CK3, TROPN #### [facility] [address], [place] Glucose [Mass/Vol] 102 mg/dL High 70-100 [place], [place] Comment on above: Performed By: #### H EMDF, CMP3, CK3, TROPN #### [place] [address] [address], [place] ALP [Catalytic activity/Vol] 164 U/L High 38-126 [place], [place] Comment on above: Performed By: #### H EMDF, CMP3, CK3, TROPN #### [place] [address] [address], [place] Anion gap [Moles/Vol] 8 Normal [facility] Comment on above: Performed By: #### H EMDF, CMP3, CK3, TROPN #### [place] [address] [address], [place] AST [Catalytic activity/Vol] 30 U/L Normal 15-46 [place], [place] Comment on above: Performed By: #### H EMDF, CMP3, CK3, TROPN #### [place] [address] [address], [place] Bilirubin [Mass/Vol] 0.5 mg/dL Normal 0.2-1.3 [facility] Comment on above: Performed By: #### H EMDF, CMP3, CK3, TROPN #### [place] [address] [address], [place] CO2 [Moles/Vol] 27 mmol/L Normal 22-30 [place], [place] Comment on above: Performed By: #### H EMDF, CMP3, CK3, TROPN #### [place] [address] [address], [place] Creatinine [Mass/Vol] 0.76 mg/dL Normal 0.52-1.25 [place], [place] Comment on above: Performed By: #### H EMDF, CMP3, CK3, TROPN #### [facility] [employer] [facility] [address] [place] [address] GFR/1.73 sq M predicted among blacks MDRD (S/P/Bld) [Vol rate/Area] mL/min/{1.73_m2} Normal >60 [place], [place] Comment on above: Performed By: #### H EMDF, CMP3, CK3, TROPN #### [facility] [employer] [place] [address] [place] [address] GFR/1.73 sq M predicted among non-blacks MDRD (S/P/Bld) [Vol rate/Area] mL/min/{1.73_m2} Normal >60 [facility] Comment on above: Result Comment: Sour ce- MDRD equation with creatinine calibration to IDMS(NKDEP) eGFR not recommended for drug dose adjustment Performed By: #### H EMDF, CMP3, CK3, TROPN #### [facility] [employer] [address] [place] [address] Protein [Mass/Vol] 7.1 g/dL Normal 6.3-8.2 [place], [place] Comment on above: Performed By: #### H EMDF, CMP3, CK3, TROPN #### [facility] [employer] [address] [place] [address] Urea nitrogen [Mass/Vol] 13 mg/dL Normal 7-20 [place], [place] Comment on above: Performed By: #### H EMDF, CMP3, CK3, TROPN #### [facility] [employer] [address] [place] [address] Chloride [Moles/Vol] 105 mmol/L Normal 98-107 [place], [place] Comment on above: Performed By: #### H EMDF, CMP3, CK3, TROPN #### [facility] [employer] [address] [place] [address] Potassium [Moles/Vol] 3.8 mmol/L Normal 3.5-5.1 [place], [place] Comment on above: Performed By: #### H EMDF, CMP3, CK3, TROPN #### [facility] [address] [place], [place] Sodium [Moles/Vol] 141 mmol/L Normal 135-145 [place], [place] Comment on above: Performed By: #### H EMDF, CMP3, CK3, TROPN #### [facility] [address] [place], [place] Albumin [Mass/Vol] 3.7 g/dL Normal 3.5-5.0 [place] Comment on above: Performed By: #### H EMDF, CMP3, CK3, TROPN #### [facility] [address] [place], [place] Comprehensive Metabolic Pane [place] 03-09-2019 Anion gap [Moles/Vol] 8 mmol/L [place], [place] Bilirubin Ql (U) 0.5 mg/dL 0.2 - 1.3 mg/dL [place] EGFR IF NonAfrican Greenlandic >60.0 >60 mL/min [place] Comment on above: Source- MDRD equatio n with creatinine calibration to IDMS(NKDEP) eGFR not recommended for drug dose adjustment EKG 12 [place] 03-09-2019 Kenny, [facility] Incoming Cardiology Results From [facility] - 03/09/2019 6:48 PM EDT [facility] Test Date: 2019-03-08 Pat Name: Natalie Buzz Department: 01 Room: 1533 Gender: M Undercover Operator: MJ : 1960 Requested By: Order Number: [id number] Dimas MD: Marcos Burgos Measurements Intervals [place] Rate: 92 P: 40 [place]: 140 QRS: 40 QRSD: 89 T: 91 QT: 364 QTc: 451 Interpretive Statements Sinus rhythm Abnormal R-wave progression, early transition Borderline T wave abnormalities Electronically Signed On 03-09-2019 18:47:18 EDT by Marcos Burgos [facility] Test Date: 2019-03-08 Pat Name: Natalie Succi Department: 01 Room: 1533 Gender: M Undercover Operator: IVONNE : 1960 Requested By: Order Number: [id number] Dimas MD: Marcos Burgos Measurements Intervals [place] Rate: 92 P: 40 [place]: 140 QRS: 40 QRSD: 89 T: 91 QT: 364 QTc: 451 Interpretive Statements Sinus rhythm Abnormal R-wave progression, early transition Borderline T wave abnormalities Electronically Signed On 03-09-2019 18:47:18 EDT by Marcos Burgos [facility], [place] Hemogram w/ Autodiffon 03-09 Abs Baso Cnt 0.1 10*3/uL Normal 0.0-0.2 [facility] Comment on above: Performed By: #### H EMDF, CMP3, CK3, TROPN #### [facility] [address] [place] [address] Abs Neutrophile Cnt 5.3 10*3/uL Normal 1.8-7.0 [facility] Comment on above: Performed By: #### H EMDF, CMP3, CK3, TROPN #### [facility] [address] [place] [address] Basophils/100 WBC (Bld) 1.3 % Normal 0.0-2.0 [facility] Comment on above: Performed By: #### H EMDF, CMP3, CK3, TROPN #### [facility] [address] [place] [address] Eosinophils (Bld) [#/Vol] 0.1 10*3/uL Normal 0.0-0.5 [facility] Comment on above: Performed By: #### H EMDF, CMP3, CK3, TROPN #### [facility] [address] [place] [address] Eosinophils/100 WBC (Bld) 1.8 % Normal 1.0-6.0 [facility] Comment on above: Performed By: #### H EMDF, CMP3, CK3, TROPN #### [address] [address] [place] [address] Erythrocyte distribution width (RBC) [Ratio] 15.0 % High 11.5-14.5 [facility] Comment on above: Performed By: #### H EMDF, CMP3, CK3, TROPN #### [place] [address] [place] Granulocytes/100 WBC (Bld) 71.3 % Normal 40.0-80.0 [facility] Comment on above: Performed By: #### H EMDF, CMP3, CK3, TROPN #### [place] [place] Hematocrit (Bld) [Volume fraction] 31.9 % Low 40.0-52.0 [facility] Comment on above: Performed By: #### H EMDF, CMP3, CK3, TROPN #### [address] [address] [place] Hemoglobin (Bld) [Mass/Vol] 10.7 g/dL Low 13.0-18.0 [facility] Comment on above: Performed By: #### H EMDF, CMP3, CK3, TROPN #### [address] [place] [place] Lymphocytes (Bld) [#/Vol] 1.6 10*3/uL Normal 1.0-4.3 [facility] Comment on above: Performed By: #### H EMDF, CMP3, CK3, TROPN #### [address] [address] [place] Lymphocytes/100 WBC (Bld) 21.6 % Normal 20.0-40.0 [facility] Comment on above: Performed By: #### H EMDF, CMP3, CK3, TROPN #### [place] [place] MCH (RBC) [Entitic mass] 28.3 pg Normal 26.0-34.0 [facility] Comment on above: Performed By: #### H EMDF, CMP3, CK3, TROPN #### [address] [address] [place] MCHC (RBC) [Mass/Vol] 33.5 % Normal 32.0-36.0 [facility] Comment on above: Performed By: #### H EMDF, CMP3, CK3, TROPN #### [address] [place] MCV (RBC) [Entitic vol] 84.6 fL Normal 80.0-98.0 [facility] Comment on above: Performed By: #### H EMDF, CMP3, CK3, TROPN #### [place] [place] Monocytes (Bld) [#/Vol] 0.3 10*3/uL Normal 0.0-0.8 [facility] Comment on above: Performed By: #### H EMDF, CMP3, CK3, TROPN #### [address] [address] [place] Monocytes/100 WBC (Bld) 4.0 % Normal 2.0-10.0 [facility] Comment on above: Performed By: #### H EMDF, CMP3, CK3, TROPN #### [place] [address] [place] Platelet mean volume (Bld) [Entitic vol] 7.6 fL Normal 7.4-10.4 [facility] Comment on above: Performed By: #### H EMDF, CMP3, CK3, TROPN #### [address] Platelets (Bld) [#/Vol] 230 10*3/uL Normal 140-440 [facility] Comment on above: Performed By: #### H EMDF, CMP3, CK3, TROPN #### [place] [address] [place] RBC (Bld) [#/Vol] 3.77 10*6/uL Low 4.40-5.90 [facility] Comment on above: Performed By: #### H EMDF, CMP3, CK3, TROPN #### [address] WBC (Bld) [#/Vol] 7.4 10*3/uL Normal 3.6-10.7 [facility] Comment on above: Performed By: #### H EMDF, CMP3, CK3, TROPN #### [address] Otheron 03-09-2019 Test Performed by [facility], [address] [place] [id number] [place] [address] Interpretation and review of laboratory results Abnormal [place], [place] Troponinon 03-09-2019 Troponin I.cardiac [Mass/Vol] ng/mL 0 - 0.034 ng/mL [place] Comment on above: . Test Performed by [id number] [place] [address] Troponin I.cardiac [Mass/Vol] ng/mL 0 - 0.034 ng/mL [place] Comment on above: . Troponin Ion 03-09-2019 Troponin I.cardiac [Mass/Vol] ng/mL Normal 0.000-0.03 4 [facility] Comment on above: Result Comment: . Performed By: #### H EMOG, DDI2, BMP3, LIPA4, TROPN, BNP3 #### [address] Troponin I.cardiac [Mass/Vol] ng/mL Normal 0.000-0.03 4 [facility] Comment on above: Result Comment: . Performed By: #### H EMOG, DDI2, BMP3, LIPA4, TROPN, BNP3 #### [address] Basic Metabolic Panelon Calcium [Mass/Vol] 9.2 mg/dL Normal 8.4-10.4 [facility] Comment on above: Performed By: #### H EMOG, DDI2, BMP3, LIPA4, TROPN, BNP3 #### [address] Glucose [Mass/Vol] 118 mg/dL High 70-100 [facility] Comment on above: Performed By: #### H EMOG, DDI2, BMP3, LIPA4, TROPN, BNP3 #### [address] Urea nitrogen [Mass/Vol] 12 mg/dL Normal 7-20 [facility] Comment on above: Performed By: #### H EMOG, DDI2, BMP3, LIPA4, TROPN, BNP3 #### [address] [address] [place], [place] Anion gap [Moles/Vol] 10 Normal [facility] Comment on above: Performed By: #### H EMOG, DDI2, BMP3, LIPA4, TROPN, BNP3 #### [address] [address] [place] CO2 [Moles/Vol] 24 mmol/L Normal 22-30 [facility] Comment on above: Performed By: #### H EMOG, DDI2, BMP3, LIPA4, TROPN, BNP3 #### [address] Creatinine [Mass/Vol] 0.75 mg/dL Normal 0.52-1.25 [facility] Comment on above: Performed By: #### H EMOG, DDI2, BMP3, LIPA4, TROPN, BNP3 #### [address] [address] [place], [place] GFR/1.73 sq M predicted among blacks MDRD (S/P/Bld) [Vol rate/Area] mL/min/{1.73_m2} Normal >60 [facility] Comment on above: Performed By: #### H EMOG, DDI2, BMP3, LIPA4, TROPN, BNP3 #### [address] GFR/1.73 sq M predicted among non-blacks MDRD (S/P/Bld) [Vol rate/Area] mL/min/{1.73_m2} Normal >60 [facility] Comment on above: Result Comment: Sour ce- MDRD equation with creatinine calibration to IDMS(NKDEP) eGFR not recommended for drug dose adjustment Performed By: #### H EMOG, DDI2, BMP3, LIPA4, TROPN, BNP3 #### [facility] [address] [place], [place] Potassium [Moles/Vol] 3.7 mmol/L Normal 3.5-5.1 [facility] Comment on above: Performed By: #### H EMOG, DDI2, BMP3, LIPA4, TROPN, BNP3 #### [facility] [address] [place] [address] Chloride [Moles/Vol] 105 mmol/L Normal 98-107 [facility] Comment on above: Performed By: #### H EMOG, DDI2, BMP3, LIPA4, TROPN, BNP3 #### [facility] [address] [place], [place] Sodium [Moles/Vol] 138 mmol/L Normal 135-145 [facility] Comment on above: Performed By: #### H EMOG, DDI2, BMP3, LIPA4, TROPN, BNP3 #### [facility] [address] [place], [place] Anion gap [Moles/Vol] 10 mmol/L [place], [place] Calcium [Mass/Vol] 9.2 mg/dL 8.4 - 10. 4 mg/dL [place], [place] Chloride [Moles/Vol] 105 mmol/L 98 - 10 7 mmol/L [place] CO2 [Moles/Vol] 24 mmol/L 22 - 30 mmol/L [place] Creatinine [Mass/Vol] 0.75 mg/dL 0.52 - 1.25 mg/dL [place] EGFR IF NonAfrican Green[place]ic >60.0 >60 mL/min [place] Comment on above: Source- MDRD equatio n with creatinine calibration to IDMS(NKDEP) eGFR not recommended for drug dose adjustment GFR/1.73 sq M predicted among blacks MDRD (S/P/Bld) [Vol rate/Area] mL/min/{1.73_m2} >60 mL/min [place] Glucose [Mass/Vol] 118 mg/dL High 70 - 100 mg/dL [place] Interpretation and review of laboratory results Abnormal [place] Potassium [Moles/Vol] 3.7 mmol/L 3.5 - 5.1 mmol/L [place] Sodium [Moles/Vol] 138 mmol/L 135 - 145 mmol/L [place] Urea nitrogen [Mass/Vol] 12 mg/dL 7 - 20 mg/dL [place] Brain Natriuretic Peptideon 03-08-2019 Natriuretic peptide B (Bld) [Mass/Vol] 58 pg/mL 0 - 125 pg/mL [place], [place] CR Chest Portableon 03-08-20 19 CR Chest Portable Patient Name: NATALIE GERBER Diagnostic Radiology Exam Date/Time 03/08/2019 20:35:26 EDT Exam CR Chest Portable Ordering Physician DO KUMAR DALJEET Accession Number [id number] CPT4 Codes 89115 () Reason For Exam chest pain Report [...] Transcribed Date and Time: 03/08/2019 8:25 Normal [facility] D-Dimer, Innovanceon 019 D-Dimer, Innovance 0.50 mg/L Normal 0.00-0.50 [facility] Comment on above: Result Comment: Inno aguiar D-Dimer values of <0.50 mg/L FEU can be used in combination with a pre-test probability model (e.g. Well's) to exclude pulmonary embolism (PE) disease, as well as an aid in the diagnosis of deep vein thrombosis (DVT). Performed By: #### H EMOG, DDI2, BMP3, LIPA4, TROPN, BNP3 #### [address] D-Dimer, Quantitativeon D-Dimer, Quant 0.5 mg/L 0 - 0.5 mg/L [place], [place] Comment on above: [employer] D-Dimer va lues of <0.50 mg/L FEU can be used in combination with a pre-test probability model (e.g. Well's) to exclude pulmonary embolism (PE) disease, as well as an aid in the diagnosis of deep vein thrombosis (DVT). Test Performed by [address] [address] [place], [place] Hemogramon 03-08-2019 Erythrocyte distribution width (RBC) [Ratio] 15.3 % High 11.5-14.5 [facility] Comment on above: Performed By: #### H EMOG, DDI2, BMP3, LIPA4, TROPN, BNP3 #### [address] Hematocrit (Bld) [Volume fraction] 33.3 % Low 40.0-52.0 [facility] Comment on above: Performed By: #### H EMOG, DDI2, BMP3, LIPA4, TROPN, BNP3 #### [address] Hemoglobin (Bld) [Mass/Vol] 10.9 g/dL Low 13.0-18.0 [facility] Comment on above: Performed By: #### H EMOG, DDI2, BMP3, LIPA4, TROPN, BNP3 #### [address] MCH (RBC) [Entitic mass] 27.9 pg Normal 26.0-34.0 [facility] Comment on above: Performed By: #### H EMOG, DDI2, BMP3, LIPA4, TROPN, BNP3 #### [address] MCHC (RBC) [Mass/Vol] 32.9 % Normal 32.0-36.0 [facility] Comment on above: Performed By: #### H EMOG, DDI2, BMP3, LIPA4, TROPN, BNP3 #### [address] [place] [address] [address] [place] MCV (RBC) [Entitic vol] 84.8 fL Normal 80.0-98.0 [facility] Comment on above: Performed By: #### H EMOG, DDI2, BMP3, LIPA4, TROPN, BNP3 #### [address] [address] [place], [place] Platelet mean volume (Bld) [Entitic vol] 7.7 fL Normal 7.4-10.4 [facility] Comment on above: Performed By: #### H EMOG, DDI2, BMP3, LIPA4, TROPN, BNP3 #### [address] Platelets (Bld) [#/Vol] 244 10*3/uL Normal 140-440 [facility] Comment on above: Performed By: #### H EMOG, DDI2, BMP3, LIPA4, TROPN, BNP3 #### [address] [address] [place], [place] RBC (Bld) [#/Vol] 3.92 10*6/uL Low 4.40-5.90 [facility] Comment on above: Performed By: #### H EMOG, DDI2, BMP3, LIPA4, TROPN, BNP3 #### [address] WBC (Bld) [#/Vol] 9.8 10*3/uL Normal 3.6-10.7 [facility] Comment on above: Performed By: #### H EMOG, DDI2, BMP3, LIPA4, TROPN, BNP3 #### [address] Hemogram (CBC)on 03-08-2019 Erythrocyte distribution width (RBC) [Ratio] 15.3 % High 11.5 - 14.5 % [place] Hematocrit (Bld) [Volume fraction] 33.3 % Low 40 - 52 % [place] Hemoglobin (Bld) [Mass/Vol] 10.9 g/dL Low 13 - 18 g/dL [place] Interpretation and review of laboratory results Abnormal [place] MCH (RBC) [Entitic mass] 27.9 pg 26 - 34 pg [place] MCHC (RBC) [Mass/Vol] 32.9 % 32 - 36 % [place], [place] MCV (RBC) [Entitic vol] 84.8 fL 80 - 98 fL [place] Platelet mean volume (Bld) [Entitic vol] 7.7 fL 7.4 - 10.4 fL [place] Platelets (Bld) [#/Vol] 244 10*3/uL 140 - 440 10*3/uL [place] RBC (Bld) [#/Vol] 3.92 10*6/uL Low 4.4 - 5.9 10*6/uL [place] WBC (Bld) [#/Vol] 9.8 10*3/uL 3.6 - 10.7 10*3/uL [place] Test Performed by [facility], [address] [place] [address] Lipaseon 03-08-2019 Lipase [Catalytic activity/Vol] 28 U/L Normal 23-300 [facility] Comment on above: Performed By: #### H EMOG, DDI2, BMP3, LIPA4, TROPN, BNP3 #### [address] [address] Lipase [Catalytic activity/Vol] 28 U/L 23 - 300 U/L [place] NT pro BNPon 03-08-2019 Natriuretic peptide B (Bld) [Mass/Vol] 58 pg/mL Normal 0-125 [facility] Comment on above: Performed By: #### H EMOG, DDI2, BMP3, LIPA4, TROPN, BNP3 #### [facility] [address] [place] [address] Otheron 03-08-2019 Test Performed by [facility], [address] [place] [address] Test Performed by [facility], [address] [place] [address] [place], [place] Troponin Ion 03-08-2019 Troponin I.cardiac [Mass/Vol] ng/mL Normal 0.000-0.03 4 [facility] Comment on above: Result Comment: . Performed By: #### H EMOG, DDI2, BMP3, LIPA4, TROPN, BNP3 #### [facility] [address] [place] [address] Troponin x1on 03-08-2019 Troponin I.cardiac [Mass/Vol] ng/mL 0 - 0.034 ng/mL [place] Comment on above: . XR CHEST PORTABLEon 03-08-20 19 [facility] Incoming Radiology Results From [employer] - 03/08/2019 8:36 PM EDT Patient Name: NATALIE GERBER ---Diagnostic Radiology--- Exam Date/Time 03/08/2019 20:35:26 EDT Exam CR Chest Portable Ordering Physician DO KUMAR DALJEET Accession Number [id number] CPT4 Codes 64434 () Reason For Exam chest pain Report [...] R Transcribed Date and Time: 03/08/2019 8:25 [place], [place] Patient Name: NATALIE GERBER ---Diagnostic Radiology--- Exam Date/Time 03/08/2019 20:35:26 EDT Exam CR Chest Portable Ordering Physician DO KUMAR DALJEET Accession Number [id number] CPT4 Codes 51535 () Reason For Exam chest pain Report [...] R Transcribed Date and Time: 03/08/2019 8:25 [place], [place] Hemogram/Diffon 02-20-2019 Abs Immature Grans 0.12 thou/cmm High 0.00-0.05 [facility] Comment on above: Performed By: #### P BNP #### [place] [address] Abs Neut (ANC) 6.57 thou/cmm High 1.78-5.38 [facility] Comment on above: Performed By: #### P BNP #### [place] [address] Abs. Baso 0.04 thou/cmm Normal 0.01-0.08 [facility] Comment on above: Performed By: #### P BNP #### [place] [address] Abs. Dane 0.53 thou/cmm Normal 0.30-0.82 [facility] Comment on above: Performed By: #### P BNP #### [place] [address] Basophils/100 WBC (Bld) 0.4 % Normal [facility] Comment on above: Performed By: #### P BNP #### [place] [address] Eosinophils (Bld) [#/Vol] 0.10 thou/cmm Normal 0.04-0.54 [facility] Comment on above: Performed By: #### P BNP #### [place] [address] Eosinophils/100 WBC (Bld) 1.0 % Normal [facility] Comment on above: Performed By: #### P BNP #### [facility] [address] [place] [address] Erythrocyte distribution width (RBC) [Ratio] 14.4 % Normal 11.6-14.4 [facility] Comment on above: Performed By: #### P BNP #### [facility] [address] [address] Hematocrit (Bld) [Volume fraction] 36.9 % Low 40.1-51.0 [facility] Comment on above: Performed By: #### P BNP #### [place] [address] Hemoglobin (Bld) [Mass/Vol] 11.1 g/dL Low 13.7-17.5 [facility] Comment on above: Performed By: #### P BNP #### [place] [address] Immature Grans 1.20 % Normal [facility] Comment on above: Performed By: #### P BNP #### [place] [address] Lymphocytes (Bld) [#/Vol] 2.45 thou/cmm Normal 0.84-2.85 [facility] Comment on above: Performed By: #### P BNP #### [address] [address] Lymphocytes/100 WBC (Bld) 25.0 % Normal [facility] Comment on above: Performed By: #### P BNP #### [facility] [address] [place], [place] [address] MCH (RBC) [Entitic mass] 27.5 pg Normal 25.7-32.2 [facility] Comment on above: Performed By: #### P BNP #### [place] [address] MCHC (RBC) [Mass/Vol] 30.1 % Low 32.3-36.5 [facility] Comment on above: Performed By: #### P BNP #### [facility] [address] [address] MCV (RBC) [Entitic vol] 91.3 fL Normal 83.2-95.6 [facility] Comment on above: Performed By: #### P BNP #### [facility] [address] [address] Monocytes/100 WBC (Bld) 5.4 % Normal [facility] Comment on above: Performed By: #### P BNP #### [facility] [address] [address] Platelet mean volume (Bld) [Entitic vol] 9.7 fL Normal 8.7-12.0 [facility] Comment on above: Performed By: #### P BNP #### [facility] [address] [address] Platelets (Bld) [#/Vol] 276 thou/cmm Normal 141-365 [facility] Comment on above: Performed By: #### P BNP #### [place] [address] RBC (Bld) [#/Vol] 4.04 mil/cmm Low 4.63-6.08 [facility] Comment on above: Performed By: #### P BNP #### [place] [address] RDW SD 47.8 fl High 36.1-45.8 [facility] Comment on above: Performed By: #### P BNP #### [facility] [address] [address] Seg Neutrophil 67.0 % Normal [facility] Comment on above: Performed By: #### P BNP #### [facility] [address] [place] [address] WBC (Bld) [#/Vol] 9.80 thou/cmm High 4.23-9.07 [facility] Comment on above: Performed By: #### P BNP #### [place] [address] Comprehensive Panelon 2018 ALP [Catalytic activity/Vol] 144 U/L High 45-117 [facility] Comment on above: Performed By: #### P 14 #### [facility] [address] [place], [place] [address] Protein [Mass/Vol] 6.8 g/dL Normal 6.4-8.2 [facility] Comment on above: Performed By: #### P 14 #### [facility] [address] [place], [place] [address] Bilirubin [Mass/Vol] 0.4 mg/dL Normal 0.2-1.0 [facility] Comment on above: Performed By: #### P 14 #### [facility] [address] [place], [place] [address] Creatinine [Mass/Vol] 0.54 mg/dL Low 0.67-1.17 [facility] Comment on above: Performed By: #### P 14 #### [facility] [address] [place], [place] [address] ALT [Catalytic activity/Vol] 13 U/L Normal 12-78 [facility] Comment on above: Performed By: #### P 14 #### [facility] [address] [place], [place] [address] AST [Catalytic activity/Vol] 17 U/L Normal 15-37 [facility] Comment on above: Performed By: #### P 14 #### [facility] [address] [place], [place] [address] Albumin [Mass/Vol] 2.8 g/dL Low 3.4-5.0 [facility] Comment on above: Performed By: #### P 14 #### [facility] [address] [place], [place] [address] Anion gap [Moles/Vol] 12 mmol/L Normal 8-16 [facility] Comment on above: Performed By: #### P 14 #### [facility] [address] [place], [place] [address] CO2 [Moles/Vol] 25 mmol/L Normal 21-32 [facility] Comment on above: Performed By: #### P 14 #### [facility] [address] [place], [place] [address] Glucose [Mass/Vol] 219 mg/dL High 70-99 [facility] Comment on above: Performed By: #### P 14 #### [facility] [address] [place], [place] [address] Urea nitrogen [Mass/Vol] 10 mg/dL Normal 7-18 [facility] Comment on above: Performed By: #### P 14 #### [facility] [address] [place], [place] [address] Calcium [Mass/Vol] 8.7 mg/dL Normal 8.5-10.1 [facility] Comment on above: Performed By: #### P 14 #### [facility] [address] [place], [place] [address] Chloride [Moles/Vol] 105 mmol/L Normal 98-107 [facility] Comment on above: Performed By: #### P 14 #### [facility] [address] [place] [address] Potassium [Moles/Vol] 3.8 mmol/L Normal 3.5-5.1 [facility] Comment on above: Performed By: #### P 14 #### [facility] [address] [place] [address] Sodium [Moles/Vol] 138 mmol/L Normal 136-145 [facility] Comment on above: Performed By: #### P 14 #### [facility] [address] [place] [address] Glucose Meteron 02-18-2019 Glucose [Mass/Vol] 205 mg/dL High 70-99 [facility] Comment on above: Result Comment: PIA VERA Performed By: #### G LMET #### [facility] [address] [place], [place] [address] Hemogramon 02-18-2019 Erythrocyte distribution width (RBC) [Ratio] 13.8 % Normal 11.6-14.4 [facility] Comment on above: Performed By: #### P 14 #### [facility] [address] [place], [place] [address] Hematocrit (Bld) [Volume fraction] 34.1 % Low 40.1-51.0 [facility] Comment on above: Performed By: #### P 14 #### [facility] [address] [place] [address] Hemoglobin (Bld) [Mass/Vol] 10.5 g/dL Low 13.7-17.5 [facility] Comment on above: Performed By: #### P 14 #### [facility] [address] [place] [address] MCH (RBC) [Entitic mass] 27.9 pg Normal 25.7-32.2 [facility] Comment on above: Performed By: #### P 14 #### [facility] [address] [place] [address] MCHC (RBC) [Mass/Vol] 30.8 % Low 32.3-36.5 [facility] Comment on above: Performed By: #### P 14 #### [facility] [address] [place] [address] MCV (RBC) [Entitic vol] 90.7 fL Normal 83.2-95.6 [facility] Comment on above: Performed By: #### P 14 #### [facility] [address] [place] [address] Platelet mean volume (Bld) [Entitic vol] 9.6 fL Normal 8.7-12.0 [facility] Comment on above: Performed By: #### P 14 #### [facility] [address] [place] [address] Platelets (Bld) [#/Vol] 276 thou/cmm Normal 141-365 [facility] Comment on above: Performed By: #### P 14 #### [facility] [address] [place] [address] RBC (Bld) [#/Vol] 3.76 mil/cmm Low 4.63-6.08 [facility] Comment on above: Performed By: #### P 14 #### [facility] [address] [place] [address] RDW SD 45.9 fl High 36.1-45.8 [facility] Comment on above: Performed By: #### P 14 #### [facility] [address] [place] [address] WBC (Bld) [#/Vol] 13.44 thou/cmm High 4.23-9.07 [facility] Comment on above: Performed By: #### P 14 #### [facility] [address] [place], [place] [address] Hgb A1con 02-18-2019 HbA1c (Bld) [Mass fraction] 5.9 % Normal 4.2-6.3 [facility] Comment on above: Result Comment: Meth od is National Glycohemoglobin Standardization Program (NGSP) compliant. Performed By: #### P BNP #### [facility] 1 [place], [place] [address] HbA1c (Bld) [Mass fraction] 123 mg/dl Normal [facility] Comment on above: Performed By: #### P BNP #### [place] [address] Lipid Profileon 02-18-2019 Cholesterol in HDL [Mass/Vol] 40 mg/dL Normal >40 [facility] Comment on above: Performed By: #### P BNP #### [place] [address] Cholesterol in LDL [Mass/Vol] 55 mg/dL Normal [facility] Comment on above: Result Comment: No C AD and with fewer than 2 CAD risk factors <160 mg/dL No CAD but with 2 or more CAD risk factors <130 mg/dL Definite CAD or other atherosclerotic disease <100 mg/dL Performed By: #### P BNP #### [address] [address] Cholesterol in LDL/Cholesterol in HDL [Mass ratio] 1.4 Normal 1.1-4.8 [facility] Comment on above: Result Comment: LDL, VLDL,LDL/HDL, Invalid if Triglyceride >400 Performed By: #### P BNP #### [facility] 1 [place], [place] [address] Cholesterol.total/Cho lesterol in HDL [Mass ratio] 2.9 {ratio} Normal 2.1-7.3 [facility] Comment on above: Performed By: #### P BNP #### [place] [address] Cholesterol [Mass/Vol] 116 mg/dL Normal 0-199 [facility] Comment on above: Result Comment: <200 Desirable 200-240 Borderline >240 High Performed By: #### P BNP #### [facility] 1 [place], [place] [address] Cholesterol in VLDL [Mass/Vol] 21 mg/dL Normal <50 Desired [facility] Comment on above: Performed By: #### P BNP #### [facility] 1 [place], [place] [address] Triglyceride [Mass/Vol] 104 mg/dL Normal 0-149 [facility] Comment on above: Result Comment: < 20 0 Desirable Result invalid if not a fasting specimen. Performed By: #### P BNP #### [facility] [address] [place] [id number] MDRD GFRon 02-18-2019 GFR/1.73 sq M predicted among non-blacks MDRD (S/P/Bld) [Vol rate/Area] mL/min/{1.73_m2} Normal >60mL/min/ 1.73m2 [facility] Comment on above: Result Comment: If t he patient is , multiply the result by 1.210. Performed By: #### P 14 #### [facility] 1 [place], [place] [address] Magnesium Bloodon 02-18-2019 Magnesium [Mass/Vol] 2.2 mg/dL Normal 1.6-2.6 [facility] Comment on above: Performed By: #### P 14 #### [facility] 1 [place], [place] [address] Phosphorus Bloodon 9 Phosphate [Mass/Vol] 2.4 mg/dL Low 2.5-4.9 [facility] Comment on above: Performed By: #### P 14 #### [facility] 1 [place], [place] [address] Activated PTTon 02-17-2019 aPTT Coag (Bld) [Time] 26.2 s Normal 23.0-32.4 [facility] Comment on above: Result Comment: Unfr actionated [...] laboratory APTT reagent in use throughout the [facility]. Performed By: #### P 14 #### [facility] [address] [place] [address] Basic Panelon 02-17-2019 Creatinine [Mass/Vol] 0.62 mg/dL Low 0.67-1.17 [facility] Comment on above: Performed By: #### P 14 #### [facility] [address] [place] [address] Urea nitrogen [Mass/Vol] 9 mg/dL Normal 7-18 [facility] Comment on above: Performed By: #### P 14 #### [address] [address] Anion gap [Moles/Vol] 16 mmol/L Normal 8-16 [facility] Comment on above: Performed By: #### P 14 #### [place] [address] Calcium [Mass/Vol] 9.0 mg/dL Normal 8.5-10.1 [facility] Comment on above: Performed By: #### P 14 #### [address] [address] CO2 [Moles/Vol] 23 mmol/L Normal 21-32 [facility] Comment on above: Performed By: #### P 14 #### [facility] 1 [place], [place] [address] Glucose [Mass/Vol] 175 mg/dL High 70-99 [facility] Comment on above: Performed By: #### P 14 #### [facility] 1 [place], [place] [address] Chloride [Moles/Vol] 102 mmol/L Normal 98-107 [facility] Comment on above: Performed By: #### P 14 #### [address] [address] Potassium [Moles/Vol] 4.3 mmol/L Normal 3.5-5.1 [facility] Comment on above: Performed By: #### P 14 #### [facility] 1 [place], [place] [address] Sodium [Moles/Vol] 137 mmol/L Normal 136-145 [facility] Comment on above: Performed By: #### P 14 #### [facility] [address] [place], [place] [address] CT BRAIN ATTACK WO IVCONon 0 02-17-2019 CT BRAIN ATTACK WO IVCON * * *Final Report* * * DATE OF EXAM: Feb 17 2019 6:07PM [facility] 0502 - CT BRAIN ATTACK WO IVCON [...] Banuelos on 02/17/2019 at 1816 hours. CR_1 Woodworker: SHIRA Transcribe Date/Time: Feb 17 2019 6:13P Dictated by : AUGUSTINE BUNN MD This examination was interpreted and the report reviewed and electronically signed by: AUGUSTINE BUNN MD on Feb 17 2019 6:20PM EST CRITICAL!! Normal [facility] Troponin Ion 02-17-2019 Troponin I.cardiac [Mass/Vol] ng/mL Normal 0.015-0.04 5 [facility] Comment on above: Performed By: #### P 14 #### [facility] [address] [place] [address] Hemogramon 02-17-2019 Erythrocyte distribution width (RBC) [Ratio] 14.2 % Normal 11.6-14.4 [facility] Comment on above: Performed By: #### P 14 #### [facility] [address] [place] [address] Hematocrit (Bld) [Volume fraction] 37.6 % Low 40.1-51.0 [facility] Comment on above: Performed By: #### P 14 #### [facility] [address] [place] [address] Hemoglobin (Bld) [Mass/Vol] 11.5 g/dL Low 13.7-17.5 [facility] Comment on above: Performed By: #### P 14 #### [facility] [address] [place] [address] MCH (RBC) [Entitic mass] 27.7 pg Normal 25.7-32.2 [facility] Comment on above: Performed By: #### P 14 #### [facility] [address] [place] [address] MCHC (RBC) [Mass/Vol] 30.6 % Low 32.3-36.5 [facility] Comment on above: Performed By: #### P 14 #### [facility] [address] [place] [address] MCV (RBC) [Entitic vol] 90.6 fL Normal 83.2-95.6 [facility] Comment on above: Performed By: #### P 14 #### [facility] [address] [place] [address] Platelet mean volume (Bld) [Entitic vol] 9.9 fL Normal 8.7-12.0 [facility] Comment on above: Performed By: #### P 14 #### [facility] [address] [place] [address] Platelets (Bld) [#/Vol] 301 thou/cmm Normal 141-365 [facility] Comment on above: Performed By: #### P 14 #### [facility] [address] [place] [address] RBC (Bld) [#/Vol] 4.15 mil/cmm Low 4.63-6.08 [facility] Comment on above: Performed By: #### P 14 #### [facility] [address] [place] [address] RDW SD 47.1 fl High 36.1-45.8 [facility] Comment on above: Performed By: #### P 14 #### [facility] [address] [place] [address] WBC (Bld) [#/Vol] 11.84 thou/cmm High 4.23-9.07 [facility] Comment on above: Performed By: #### P 14 #### [facility] [address] [place] [address] Protimeon 02-17-2019 INR Coag (PPP) [Relative time] 0.94 {INR} Normal 0.90-1.30 [facility] Comment on above: Result Comment: Michelle min K Antagonist (VKA) Therapeutic Range: INR 2 to 3 (Target INR of 2.5) Note: For patients treated with VKA drugs, such as warfarin, the [place] [employer] 2012 Guideline recommends [...] GH, et al. Chest 2012; 141:7S-47S Hayder CASTRO et al. [facility] 2017; 70: 252-289 Performed By: #### P 14 #### [place] [address] PT Coag (PPP) [Time] 10.2 s Normal 9.7-13.0 [facility] Comment on above: Performed By: #### P 14 #### [place] [address] .Auto Diffon 01-18-2019 Ammonia (P) [Mass/Vol] 0.30 10 3/mcL Normal 0.09-1.40 [facility] ([place]) Comment on above: Performed By: #### C BC, ADIFF, ANEU, GFR, BMP #### [address] [address] Basophils (Bld) [#/Vol] 0.10 10 3/mcL Normal 0.00-0.27 [facility] ([place]) Comment on above: Performed By: #### C BC, ADIFF, ANEU, GFR, BMP #### [address] [address] Basophils/100 WBC (Bld) 1.0 % Normal 0.0-2.5 [facility] ([place]) Comment on above: Performed By: #### C BC, ADIFF, ANEU, GFR, BMP #### [address] [address] Eosinophils (Bld) [#/Vol] 0.10 10 3/mcL Normal 0.00-0.65 [facility] ([place]) Comment on above: Performed By: #### C BC, ADIFF, ANEU, GFR, BMP #### [address] [address] Eosinophils/100 WBC (Bld) 2.2 % Normal 0.0-6.0 [facility] ([place]) Comment on above: Performed By: #### C BC, ADIFF, ANEU, GFR, BMP #### [address] [address] Lymphocytes (Bld) [#/Vol] 1.50 10 3/mcL Normal 0.90-4.32 [facility] ([place]) Comment on above: Performed By: #### C BC, ADIFF, ANEU, GFR, BMP #### [address] [address] Lymphocytes/100 WBC (Bld) 24.5 % Normal 20.0-40.0 [facility] ([place]) Comment on above: Performed By: #### C BC, ADIFF, ANEU, GFR, BMP #### [address] [address] Monocytes/100 WBC (Bld) 5.3 % Normal 2.0-13.0 [facility] ([place]) Comment on above: Performed By: #### C BC, ADIFF, ANEU, GFR, BMP #### [address] [address] Neutrophils/100 WBC (Bld) 67.0 % Normal 50.0-75.0 [facility] ([place] Comment on above: Performed By: #### C BC, ADIFF, ANEU, GFR, BMP #### [address] [address] .GFRon 01-18-2019 GFR Non- >60 Normal [facility] ([place] Comment on above: Result Comment: GFR Population [...] C BC, ADIFF, ANEU, GFR, BMP #### [address] [address] GFR >60 Normal [facility] ([place]) Comment on above: Result Comment: GFR Population [...] C BC, ADIFF, ANEU, GFR, BMP #### [address] [address] .NEUABSon 01-18-2019 Neutrophils (Bld) [#/Vol] 4.10 10 3/mcL Normal 2.25-8.10 [facility] ([place] Comment on above: Performed By: #### C BC, ADIFF, ANEU, GFR, BMP #### [place] [id number] BMPon 01-18-2019 Potassium [Moles/Vol] 4.6 mmol/L Normal 3.5-5.0 [facility] ([place]) Comment on above: Result Comment: Spec imen slightly hemolyzed. Results may be falsely elevated. Performed By: #### C BC, ADIFF, ANEU, GFR, BMP #### [address] [address] Calcium [Mass/Vol] 8.9 mg/dL Normal 8.4-10.1 [facility] ([place]) Comment on above: Performed By: #### C BC, ADIFF, ANEU, GFR, BMP #### [address] [address] Chloride [Moles/Vol] 106 mmol/L Normal 98-110 [facility] ([place]) Comment on above: Performed By: #### C BC, ADIFF, ANEU, GFR, BMP #### [address] [address] CO2 [Moles/Vol] 26 mmol/L Normal 22-32 [facility] ([place] Comment on above: Performed By: #### C BC, ADIFF, ANEU, GFR, BMP #### [place] [id number] Creatinine [Mass/Vol] 0.69 mg/dL Normal 0.60-1.40 [facility] ([place]) Comment on above: Performed By: #### C BC, ADIFF, ANEU, GFR, BMP #### [place] [id number] Electrolyte Balance 9.0 mEq/L Normal 4.0-15.0 [facility] ([place]) Comment on above: Performed By: #### C BC, ADIFF, ANEU, GFR, BMP #### [place] [id number] Glucose [Mass/Vol] 101 mg/dL Normal 70-110 [facility] ([place] Comment on above: Performed By: #### C BC, ADIFF, ANEU, GFR, BMP #### [place] [address] Sodium [Moles/Vol] 141 mmol/L Normal 136-145 [facility] ([place] Comment on above: Performed By: #### C BC, ADIFF, ANEU, GFR, BMP #### [place] [id number] Urea nitrogen [Mass/Vol] 10.0 mg/dL Normal 8.0-22.0 [facility] ([place] Comment on above: Performed By: #### C BC, ADIFF, ANEU, GFR, BMP #### [place] [id number] Urea nitrogen/Creatinine [Mass ratio] 14.5 ratio Normal 10.0-22.0 [facility] ([place] Comment on above: Performed By: #### C BC, ADIFF, ANEU, GFR, BMP #### [address] [address] CBCon 01-18-2019 Erythrocyte distribution width (RBC) [Ratio] 14.7 % Normal 11.5-15.5 [facility] ([place] Comment on above: Performed By: #### C BC, ADIFF, ANEU, GFR, BMP #### [place] [address] Hematocrit (Bld) [Volume fraction] 35.0 % Low 40.0-52.0 [facility] ([place] Comment on above: Performed By: #### C BC, ADIFF, ANEU, GFR, BMP #### [place] [address] Hemoglobin (Bld) [Mass/Vol] 11.4 G/dL Low 13.0-17.5 [facility] ([place] Comment on above: Performed By: #### C BC, ADIFF, ANEU, GFR, BMP #### [place] [address] MCH (RBC) [Entitic mass] 28.6 pg Normal 27.0-33.0 [facility] ([place] Comment on above: Performed By: #### C BC, ADIFF, ANEU, GFR, BMP #### [place] [address] MCHC (RBC) [Mass/Vol] 32.6 G/dL Normal 32.0-36.0 [facility] ([place] Comment on above: Performed By: #### C BC, ADIFF, ANEU, GFR, BMP #### [place] [address] MCV (RBC) [Entitic vol] 87.8 fL Normal 81.0-100.0 [facility] ([place] Comment on above: Performed By: #### C BC, ADIFF, ANEU, GFR, BMP #### [place] [address] Platelet mean volume (Bld) [Entitic vol] 7.3 fL Normal 6.4-10.5 [facility] ([place] Comment on above: Performed By: #### C BC, ADIFF, ANEU, GFR, BMP #### [facility] [address] [place], [place] [address] Platelets (Bld) [#/Vol] 214 10 3/mcL Normal 150-450 [facility] ([place] Comment on above: Performed By: #### C BC, ADIFF, ANEU, GFR, BMP #### [address] [address] RBC (Bld) [#/Vol] 3.99 10 6/mcL Low 4.50-6.00 [facility] ([place]) Comment on above: Performed By: #### C BC, ADIFF, ANEU, GFR, BMP #### [place] [id number] [address] [place] [address] WBC (Bld) [#/Vol] 6.20 10 3/mcL Normal 4.50-10.80 [facility] ([place] Comment on above: Performed By: #### C BC, ADIFF, ANEU, GFR, BMP #### [address] [address] .GFRon 01-17-2019 GFR >60 Normal [facility] ([place]) Comment on above: Result Comment: GFR Population [...] Performed By: #### C MP, GFR #### [address] [address] GFR Non- >60 Normal [facility] ([place] Comment on above: Result Comment: GFR Population [...] Performed By: #### C MP, GFR #### [address] [address] [facility] Albumin/Globulin [Mass ratio] 0.8 {ratio} Low 0.9-1.6 [facility] ([place] Comment on above: Performed By: #### C MP, GFR #### [address] [address] ALP [Catalytic activity/Vol] 164 U/L High 38-126 [facility] ([place] Comment on above: Performed By: #### C MP, GFR #### [address] [address] Bili Total 0.7 mg/dL Normal 0.2-1.2 [facility] ([place] Comment on above: Performed By: #### C MP, GFR #### [address] [address] Creatinine [Mass/Vol] 0.67 mg/dL Normal 0.60-1.40 [facility] ([place] Comment on above: Performed By: #### C MP, GFR #### [address] [address] Globulin (S) [Mass/Vol] 4.2 G/dL High 1.5-3.8 [facility] ([place] Comment on above: Performed By: #### C MP, GFR #### [address] [address] Protein [Mass/Vol] 7.5 G/dL Normal 6.0-8.5 [facility] ([place] Comment on above: Performed By: #### C MP, GFR #### [address] [address] Urea nitrogen/Creatinine [Mass ratio] 16.4 ratio Normal 10.0-22.0 [facility] ([place] Comment on above: Performed By: #### C MP, GFR #### [address] [address] Albumin [Mass/Vol] 3.3 G/dL Normal 3.2-4.8 [facility] ([place] Comment on above: Performed By: #### C MP, GFR #### [place] [phone] ALT [Catalytic activity/Vol] 13 U/L Normal 12-55 [facility] ([place] Comment on above: Performed By: #### C MP, GFR #### [place] [phone] AST [Catalytic activity/Vol] 14 U/L Normal 8-34 [facility] ([place] Comment on above: Performed By: #### C MP, GFR #### [place] [phone] Calcium [Mass/Vol] 9.1 mg/dL Normal 8.4-10.1 [facility] ([place] Comment on above: Performed By: #### C MP, GFR #### [place] [phone] Chloride [Moles/Vol] 102 mmol/L Normal 98-110 [facility] ([place]) Comment on above: Performed By: #### C MP, GFR #### [place] [phone] CO2 [Moles/Vol] 31 mmol/L Normal 22-32 [facility] ([place] Comment on above: Performed By: #### C MP, GFR #### [address] [address] Electrolyte Balance 5.0 mEq/L Normal 4.0-15.0 [facility] ([place]) Comment on above: Performed By: #### C MP, GFR #### [place] [phone] Glucose [Mass/Vol] 112 mg/dL High 70-110 [facility] ([place] Comment on above: Performed By: #### C MP, GFR #### [address] [address] Potassium [Moles/Vol] 3.8 mmol/L Normal 3.5-5.0 [facility] ([place]) Comment on above: Performed By: #### C MP, GFR #### [address] [address] Sodium [Moles/Vol] 138 mmol/L Normal 136-145 [facility] ([place] Comment on above: Performed By: #### C MP, GFR #### [address] [address] Urea nitrogen [Mass/Vol] 11.0 mg/dL Normal 8.0-22.0 [facility] ([place] Comment on above: Performed By: #### C MP, GFR #### [address] [address] CTA Chest W WO (PE study)on 01-13-2019 Patient Name: NATALIE GERBER ---CT--- Exam Date/Time 01/13/2019 00:57:20 EDT Exam CTA Chest w/ + w/o Contrast Ordering Physician MD THOMPSON HEATHER ROSE Accession Number [id number] CPT4 Codes 61626 (), Q9967 (CT ISOVUE 370MG/[id number]&[id number]) Reason For Exam shortness of breath hx [...] DIANE Transcribed Date and Time: 01/13/2019 1:02 [facility], [place] Incoming Radiology Results From [facility] - 01/13/2019 1:08 AM EDT Patient Name: NATALIE GERBER ---CT--- Exam Date/Time 01/13/2019 00:57:20 EDT Exam CTA Chest w/ + w/o Contrast Ordering Physician MD THOMPSON HEATHER ROSE Accession Number [id number] CPT4 Codes 69718 (), Q9967 (CT ISOVUE 370MG/[id number]&[id number]) Reason For Exam shortness of breath hx [...] DIANE Transcribed Date and Time: 01/13/2019 1:02 [place], [place] Cannabinoid, Urine, Screenin g, Critical Careon 01-13-2019 THC Negative [place], [place] Comment on above: Threshold= 50 ng/mL Test Performed by [facility], [address] [place] [id number] [place] [address] D-Dimer, Quantitativeon 12-31 D-Dimer, Quant 0.7 mg/L High 0 - 0.5 mg/L [place], [place] Comment on above: [employer] D-Dimer va lues of <0.50 mg/L FEU can be used in combination with a pre-test probability model (e.g. Well's) to exclude pulmonary embolism (PE) disease, as well as an aid in the diagnosis of deep vein thrombosis (DVT). Interpretation and review of laboratory results Abnormal [place], [place] Test Performed by [facility], [address] [place] [address] [place], [place] Ethanolon 01-13-2019 Ethanol Lvl <0.010 0 - 0.01 g/dL [place], [place] Comment on above: NOTE: This result is for medical treatment only. Analysis performed using non-forensic procedures. Test Performed by [facility], [address] [place] [address] Per resident [place], [place] Urine Drug Screenon 01-14-20 19 Amphetamines, urine Positive [facility] [place], [place] Barbiturates, Ur Negative [facility] [place] Benzodiazepine Ur Qual Negative [facility] [place] Cocaine Metabolites, Ur Negative [facility] [place] Methadone, Urine Negative [facility] [place] Opiates, Urine Positive [facility] [place] Oxycodone Screen, Ur Positive [facility] [place] PCP, Urine Negative [facility], [place] Comment on above: The expected value f [...] confirmation under separate order. Test Performed by [place] [address] [place] [address] [place], [place] Add On Lab Teston 01-12-2019 Sodium [Moles/Vol] Accepted [place], [place] Comment on above: Specimen available & acceptable for analysis. Test Performed by [facility], [facility] [place] [address] [place] Basic Metabolic Panelon 12-31 Anion gap [Moles/Vol] 10 mmol/L [place], [place] Calcium [Mass/Vol] 8.8 mg/dL 8.4 - 10. 4 mg/dL [place] Chloride [Moles/Vol] 102 mmol/L 98 - 10 7 mmol/L [place] CO2 [Moles/Vol] 29 mmol/L 22 - 30 mmol/L [place] Creatinine [Mass/Vol] 0.71 mg/dL 0.52 - 1.25 mg/dL [place] EGFR IF NonAfrican [place] >60.0 >60 mL/min [place] Comment on above: Source- MDRD equatio n with creatinine calibration to IDMS(NKDEP) eGFR not recommended for drug dose adjustment GFR/1.73 sq M predicted among blacks MDRD (S/P/Bld) [Vol rate/Area] mL/min/{1.73_m2} >60 mL/min [place] Glucose [Mass/Vol] 111 mg/dL High 70 - 100 mg/dL [place] Interpretation and review of laboratory results Abnormal [place] Potassium [Moles/Vol] 3.8 mmol/L 3.5 - 5.1 mmol/L [place] Sodium [Moles/Vol] 141 mmol/L 135 - 145 mmol/L [place] Urea nitrogen [Mass/Vol] 11 mg/dL 7 - 20 mg/dL [place] Test Performed by [facility], [facility] [place] [place] [address] [place] Brain Natriuretic Peptideon 01-12-2019 Natriuretic peptide B (Bld) [Mass/Vol] 47 pg/mL 0 - 125 pg/mL [place] Hemogram (CBC)on 01-12-2019 Erythrocyte distribution width (RBC) [Ratio] 14.8 % High 11.5 - 14.5 % [place], [place] Hematocrit (Bld) [Volume fraction] 33.7 % Low 40 - 52 % [place] Hemoglobin (Bld) [Mass/Vol] 11.3 g/dL Low 13 - 18 g/dL [place] Interpretation and review of laboratory results Abnormal [place] MCH (RBC) [Entitic mass] 29.2 pg 26 - 34 pg [place] MCHC (RBC) [Mass/Vol] 33.6 % 32 - 36 % [place], [place] MCV (RBC) [Entitic vol] 87.0 fL 80 - 98 fL [place] Platelet mean volume (Bld) [Entitic vol] 7.6 fL 7.4 - 10.4 fL [place] Platelets (Bld) [#/Vol] 267 10*3/uL 140 - 440 10*3/uL [place] RBC (Bld) [#/Vol] 3.87 10*6/uL Low 4.4 - 5.9 10*6/uL [place] WBC (Bld) [#/Vol] 8.8 10*3/uL 3.6 - 10.7 10*3/uL [place] Test Performed by [facility], [facility] [place] [place] [address] [place], [place] Otheron 01-12-2019 Test Performed by [facility], [address] [place] [address] [place], [place] Troponin Ion 01-12-2019 Troponin I.cardiac [Mass/Vol] ng/mL Normal 0.015-0.04 5 [facility] Comment on above: Performed By: #### T ROP #### [facility] [address] [place], [place] [address] Troponin x1on 01-12-2019 Troponin I.cardiac [Mass/Vol] ng/mL 0 - 0.034 ng/mL [place], [place] Comment on above: < 0.034 = negative 0.034 0.120 = indeterminate > 0.120 = positive XR CHEST PORTABLEon 01-13-20 19 Anusha Cox Incoming Radiology Results From [facility] - 01/12/2019 10:16 PM EDT Patient Name: NATALIE GERBER ---Diagnostic Radiology--- Exam Date/Time 01/12/2019 22:08:51 EDT Exam CR Chest Portable Ordering Physician ASAF DURAN Accession Number [id number] CPT4 Codes 22785 () Reason For Exam SOB Report Clinical [...] RUSSELL Transcribed Date and Time: 01/12/2019 10:14 [place], [place] Patient Name: NATALIE GERBER ---Diagnostic Radiology--- Exam Date/Time 01/12/2019 22:08:51 EDT Exam CR Chest Portable Ordering Physician ASAF DURAN Accession Number [id number] CPT4 Codes 29959 () Reason For Exam SOB Report Clinical [...] RUSSELL Transcribed Date and Time: 01/12/2019 10:14 [facility] 2018 Creatinine [Mass/Vol] 0.65 mg/dL Low 0.67-1.17 [facility] Comment on above: Performed By: #### P 14 #### [facility] [address] [place], [place] [address] ALP [Catalytic activity/Vol] 170 U/L High 45-117 [facility] Comment on above: Performed By: #### P 14 #### [facility] [address] [place], [place] [address] Bilirubin [Mass/Vol] 0.3 mg/dL Normal 0.2-1.0 [facility] Comment on above: Performed By: #### P 14 #### [facility] [address] [place], [place] [address] Protein [Mass/Vol] 7.5 g/dL Normal 6.4-8.2 [facility] Comment on above: Performed By: #### P 14 #### [facility] [address] [place], [place] [address] ALT [Catalytic activity/Vol] 11 U/L Low 12-78 [facility] Comment on above: Performed By: #### P 14 #### [facility] [address] [place], [place] [address] AST [Catalytic activity/Vol] 11 U/L Low 15-37 [facility] Comment on above: Performed By: #### P 14 #### [facility] [address] [place], [place] [address] Glucose [Mass/Vol] 106 mg/dL High 70-99 [facility] Comment on above: Performed By: #### P 14 #### [facility] [address] [place], [place] [address] Albumin [Mass/Vol] 3.4 g/dL Normal 3.4-5.0 [facility] Comment on above: Performed By: #### P 14 #### [facility] [address] [place], [place] [address] Anion gap [Moles/Vol] 11 mmol/L Normal 8-16 [facility] Comment on above: Performed By: #### P 14 #### [facility] [address] [place], [place] [address] Calcium [Mass/Vol] 8.8 mg/dL Normal 8.5-10.1 [facility] Comment on above: Performed By: #### P 14 #### [facility] [address] [place], [place] [address] CO2 [Moles/Vol] 27 mmol/L Normal 21-32 [facility] Comment on above: Performed By: #### P 14 #### [facility] [address] [place], [place] [address] Urea nitrogen [Mass/Vol] 9 mg/dL Normal 7-18 [facility] Comment on above: Performed By: #### P 14 #### [facility] [address] [place], [place] [address] Chloride [Moles/Vol] 104 mmol/L Normal 98-107 [facility] Comment on above: Performed By: #### P 14 #### [facility] [address] [place], [place] [address] Potassium [Moles/Vol] 3.5 mmol/L Normal 3.5-5.1 [facility] Comment on above: Performed By: #### P 14 #### [facility] [address] [place], [place] [address] Sodium [Moles/Vol] 138 mmol/L Normal 136-145 [facility] Comment on above: Performed By: #### P 14 #### [facility] [address] [place], [place] [address] [facility] Troponin Ion 01-11-2019 Troponin I.cardiac [Mass/Vol] ng/mL Normal 0.015-0.04 5 [facility] Comment on above: Performed By: #### E RTRP #### [facility] [address] [place] [address] Troponin I.cardiac [Mass/Vol] ng/mL Normal 0.015-0.04 5 [facility] Comment on above: Performed By: #### E RTRP #### [place] [address] Hemogram/Diffon 01-11-2019 Abs Immature Grans 0.06 thou/cmm High 0.00-0.05 [facility] Comment on above: Performed By: #### C BCD1 #### [place] [address] Abs Neut (ANC) 7.14 thou/cmm High 1.78-5.38 [facility] Comment on above: Performed By: #### C BCD1 #### [place] [address] Abs. Baso 0.05 thou/cmm Normal 0.01-0.08 [facility] Comment on above: Performed By: #### C BCD1 #### [place] [address] Abs. Dane 0.34 thou/cmm Normal 0.30-0.82 [facility] Comment on above: Performed By: #### C BCD1 #### [place] [address] Basophils/100 WBC (Bld) 0.5 % Normal [facility] Comment on above: Performed By: #### C BCD1 #### [place] [address] Eosinophils (Bld) [#/Vol] 0.15 thou/cmm Normal 0.04-0.54 [facility] Comment on above: Performed By: #### C BCD1 #### [place] [address] Eosinophils/100 WBC (Bld) 1.6 % Normal [facility] Comment on above: Performed By: #### C BCD1 #### [facility] [address] [place] [address] Erythrocyte distribution width (RBC) [Ratio] 13.7 % Normal 11.6-14.4 [facility] Comment on above: Performed By: #### C BCD1 #### [facility] [address] [place] [address] Hematocrit (Bld) [Volume fraction] 35.9 % Low 40.1-51.0 [facility] Comment on above: Performed By: #### C BCD1 #### [facility] [address] [place] [address] Hemoglobin (Bld) [Mass/Vol] 11.0 g/dL Low 13.7-17.5 [facility] Comment on above: Performed By: #### C BCD1 #### [place] [address] Immature Grans 0.60 % Normal [facility] Comment on above: Performed By: #### C BCD1 #### [facility] [address] [place] [address] Lymphocytes (Bld) [#/Vol] 1.64 thou/cmm Normal 0.84-2.85 [facility] Comment on above: Performed By: #### C BCD1 #### [place] [address] Lymphocytes/100 WBC (Bld) 17.5 % Normal [facility] Comment on above: Performed By: #### C BCD1 #### [facility] [address] [place] [address] MCH (RBC) [Entitic mass] 27.8 pg Normal 25.7-32.2 [facility] Comment on above: Performed By: #### C BCD1 #### [facility] [address] [place] [address] MCHC (RBC) [Mass/Vol] 30.6 % Low 32.3-36.5 [facility] Comment on above: Performed By: #### C BCD1 #### [place] [address] MCV (RBC) [Entitic vol] 90.9 fL Normal 83.2-95.6 [facility] Comment on above: Performed By: #### C BCD1 #### [facility] [address] [place], [place] [address] Monocytes/100 WBC (Bld) 3.6 % Normal [facility] Comment on above: Performed By: #### C BCD1 #### [facility] [address] [place], [place] [address] Platelet mean volume (Bld) [Entitic vol] 9.8 fL Normal 8.7-12.0 [facility] Comment on above: Performed By: #### C BCD1 #### [facility] [address] [place] [address] Platelets (Bld) [#/Vol] 259 thou/cmm Normal 141-365 [facility] Comment on above: Performed By: #### C BCD1 #### [facility] [address] [place] [address] RBC (Bld) [#/Vol] 3.95 mil/cmm Low 4.63-6.08 [facility] Comment on above: Performed By: #### C BCD1 #### [facility] [address] [place] [address] RDW SD 45.1 fl Normal 36.1-45.8 [facility] Comment on above: Performed By: #### C BCD1 #### [address] [address] Seg Neutrophil 76.2 % Normal [facility] Comment on above: Performed By: #### C BCD1 #### [facility] [address] [place], [place] [address] WBC (Bld) [#/Vol] 9.37 thou/cmm High 4.23-9.07 [facility] Comment on above: Performed By: #### C BCD1 #### [facility] [address] [place], [place] [address] MDRD GFRon 01-11-2019 GFR/1.73 sq M predicted among non-blacks MDRD (S/P/Bld) [Vol rate/Area] mL/min/{1.73_m2} Normal >60mL/min/ 1.73m2 [facility] Comment on above: Result Comment: If t he patient is , multiply the result by 1.210. Performed By: #### G FR #### [place] [address] N-terminal Pro-BNPon 019 Natriuretic peptide B (Bld) [Mass/Vol] 146 pg/mL Normal [facility] Comment on above: Result Comment: Note new reference range: Normal Reference Range: Patients <75 yrs old <125pg/ml Patients >=75 yrs old <450 pg/ml Performed By: #### P BNP #### [place] [address] Urinalysis Routineon 019 Hyaline Cast 0.0-2 Normal 0.0-1.0 [facility] Comment on above: Performed By: #### U RIN2 #### [place] [address] Mucus Threads FEW Abnormal None [facility] Comment on above: Performed By: #### U RIN2 #### [place] [address] Bacteria LM.HPF (Urine sed) [#/Area] NONE Normal None [facility] Comment on above: Performed By: #### U RIN2 #### [address] [address] Ep Cells Urine 3.7 /hpf Normal 0.0-5.0 [facility] Comment on above: Performed By: #### U RIN2 #### [place] [address] RBC LM.HPF (Urine sed) [#/Area] 0.8 /[HPF] Normal 0.0-5.0 [facility] Comment on above: Performed By: #### U RIN2 #### [address] [address] WBC LM.HPF (Urine sed) [#/Area] 1.2 /[HPF] Normal 0.0-5.0 [facility] Comment on above: Performed By: #### U RIN2 #### [facility] [address] [place] [address] Appearance (U) CLEAR Normal [facility] Comment on above: Performed By: #### U RIN2 #### [facility] [address] [place] [address] Bilirubin (U) [Mass/Vol] Negative Normal Negative [facility] Comment on above: Performed By: #### U RIN2 #### [facility] [address] [place] [address] Color (U) YELLOW Normal [facility] Comment on above: Performed By: #### U RIN2 #### [facility] [address] [place] [address] Glucose Ql (U) Negative Normal Negative [facility] Comment on above: Performed By: #### U RIN2 #### [facility] [address] [place] [address] Hemoglobin,Urine Negative Normal Negative [facility] Comment on above: Performed By: #### U RIN2 #### [facility] [address] [place] [address] Ketone Urine Negative Normal Negative [facility] Comment on above: Performed By: #### U RIN2 #### [facility] [address] [place] [address] Leukocytes Esterase Negative Normal Negative [facility] Comment on above: Performed By: #### U RIN2 #### [facility] [address] [place] [address] Nitrites Urine Negative Normal Negative [facility] Comment on above: Performed By: #### U RIN2 #### [facility] [address] [place] [address] pH (U) 6.0 [pH] Normal 5.0-8.0 [facility] Comment on above: Performed By: #### U RIN2 #### [facility] [address] [place] [address] Protein (U) [Mass/Vol] TRACE Abnormal Negative [facility] Comment on above: Performed By: #### U RIN2 #### [facility] [address] [place], [place] [address] Specific [place], Ur 1.013 Normal 1.005-1 .03 0 [facility] Comment on above: Performed By: #### U RIN2 #### [facility] [address] [place], [place] [address] Urobilinogen,Ur 1.0 EU/dL Normal 0.2-1.0 [facility] Comment on above: Performed By: #### U RIN2 #### [facility] [address] [place], [place] [address] Daily Progress Note-Medicine on 12-18-2018 Daily Progress Note-Medicine Service: Medicine Subjective Data: NATALIE GERBER is a 58 year old Male who is Hospital Day # 7. Patient continues to have pain in his back. no other new complains appetite and bowel movements are ok waiting on precert for him to go to rehab. Objective Data: Objective Information: T PRBPSpO2 [id number]/6897% Date/Time12/18 6: 6: 6: 6: 6:00 Range(36C [...] y/o with PMH of Spondylosis, CAD last [facility] 12/01/2018 (clean) hx of IL, hx of PE 99, ADHD, CVA s/p TPA 2013, PE, CHF, GERD, presented to [facility] with worsening Back pain. 1. MULTILEVEL [...] - continue PPI 7. CAD: s/p remote IL, PE, and last LHC was clean - c/w plavix, ASA and BB - c/w simvastatin 8. DVT prophylaxis- 60 mg Lovenox subcutaneous PPX DVT: on subcut heparin PPX GI: on PPI Disposition : PT/OT , waiting for precert before DC to [place] Code status: Full Code Electronic Signatures: Brianna Duncan) (Signed 18-Dec-2018 09:47) Authored: Service, Subjective Data, Objective Data, Assessment and Plan, Signature/Cosignature/Attest ation Last Updated: 18-Dec-2018 09:47 by Brianna Duncan) [facility] Daily Progress Note-Medicine on 12-17-2018 Daily Progress Note-Medicine Service: Medicine Subjective Data: NATALIE GERBER is a 58 year old Male who is Hospital Day # 6. @ doing well, awaiting placement. Objective Data: Objective Information: T PRBPSpO2 Value36.74605910/7498% Date/Time12/17 6: 6: 6: 6: 6:10 Range(35.6C [...] CAD last C 12/01/2018 (clean) hx of IL, hx of PE 99, ADD, CVA s/p TPA 2014, PE, HfpEF, GERD, presented to [facility] with worsening Back pain. 1. increase in chronic back pain: - follow up at [facility], had 3 fusion and scehduled to [...] GERD- continue PPI 7. CAD: s/p remote IL, PE, and last LHC was clean - c/w plavix, ASA and BB - c/w simvastatin 8. DVT prophylaxis- 60 mg Lovenox subcutaneous PPX DVT: on subQ heparin PPX GI: on PPI Electrolytes: as needed Diet: Regular IVF: no IVF Access: PIV Dispo: PT/OT Code status: Full Code Shanon Fitzgerald M.D. General Internal [facility] (8a - 8p) p. [phone] (8p - 8a) Electronic Signatures: Shanon Fitzgerald) (Signed 17-Dec-2018 11:24) Authored: Service, Subjective Data, Objective Data, Assessment and Plan, Signature/Cosignature/Attest ation Last Updated: 17-Dec-2018 11:24 by Shanon Fitzgerald) Normal [facility] CBCon 12-16-2018 Erythrocyte distribution width (RBC) [Ratio] Canceled Normal [facility] Comment on above: Order Comment: TEST CBC WAS CANCELLED, 12/16/2018 20:39 NO SPECIMEN RECEIVED IN LAB. Performed By: #### C BC ####[id number] [place] [address] Hematocrit (Bld) [Volume fraction] Canceled Normal [facility] Comment on above: Order Comment: TEST CBC WAS CANCELLED, 12/16/2018 20:39 NO SPECIMEN RECEIVED IN LAB. Performed By: #### C BC ####[id number] [place] [address] Hemoglobin (Bld) [Mass/Vol] Canceled Normal [facility] Comment on above: Order Comment: TEST CBC WAS CANCELLED, 12/16/2018 20:39 NO SPECIMEN RECEIVED IN LAB. Performed By: #### C BC ####[id number] [place] [address] MCHC (RBC) [Mass/Vol] Canceled Normal [facility] Comment on above: Order Comment: TEST CBC WAS CANCELLED, 12/16/2018 20:39 NO SPECIMEN RECEIVED IN LAB. Performed By: #### C BC ####[id number] [place] [address] MCV (RBC) [Entitic vol] Canceled Normal [facility] Comment on above: Order Comment: TEST CBC WAS CANCELLED, 12/16/2018 20:39 NO SPECIMEN RECEIVED IN LAB. Performed By: #### C BC ####[id number] [place] [address] Nucleated RBC/100 WBC (Bld) [Ratio] Canceled Normal [facility] Comment on above: Order Comment: TEST CBC WAS CANCELLED, 12/16/2018 20:39 NO SPECIMEN RECEIVED IN LAB. Performed By: #### C BC ####[id number] [place] [address] Platelets (Bld) [#/Vol] Canceled Normal [facility] Comment on above: Order Comment: TEST CBC WAS CANCELLED, 12/16/2018 20:39 NO SPECIMEN RECEIVED IN LAB. Performed By: #### C BC ####[id number] [place] [address] RBC (Bld) [#/Vol] Canceled Normal [facility] Comment on above: Order Comment: TEST CBC WAS CANCELLED, 12/16/2018 20:39 NO SPECIMEN RECEIVED IN LAB. Performed By: #### C BC ####[id number] [place] [address] WBC (Bld) [#/Vol] Canceled Normal [facility] Comment on above: Order Comment: TEST CBC WAS CANCELLED, 12/16/2018 20:39 NO SPECIMEN RECEIVED IN LAB. Performed By: #### C BC ####[id number] [place] [address] Daily Progress Note-Medicine on 12-16-2018 Daily Progress Note-Medicine Service: Medicine Subjective Data: NATALIE GERBER is a 58 year old Male who is Hospital Day # 5. @ doing well, has no complaint @ awaiting placement. Objective Data: Objective Information: T PRBPSpO2 Value36.89646987/6397% Date/Time12/16 6: 6: 6: 6: 6:15 Range(36.2C [...] y/o with PMH of HDL, CAD last [facility] 12/01/2018 (clean) hx of IL, hx of PE 99, ADD, CVA s/p TPA 2014, PE, HfpEF, GERD, presented to [facility] with worsening Back pain. 1. increase in chronic back pain: - follow up at [facility], had 3 fusion and scehduled to [...] GERD- continue PPI 7. CAD: s/p remote IL, PE, and last LHC was clean - c/w plavix, ASA and BB - c/w simvastatin 8. DVT prophylaxis- 60 mg Lovenox subcutaneous PPX DVT: on subQ heparin PPX GI: on PPI Electrolytes: as needed Diet: Regular IVF: no IVF Access: PIV Dispo: PT/OT Code status: Full Code Shanon Fitzgerald M.D. General Internal [facility] (8a - 8p) p. [phone] (8p - 8a) Electronic Signatures: Shanon Fitzgerald) (Signed 16-Dec-2018 09:02) Authored: Service, Subjective Data, Objective Data, Assessment and Plan, Signature/Cosignature/Attest ation Last Updated: 16-Dec-2018 09:02 by Shanon Fitzgerald) Normal [facility] RENAL FUNCTION PANELon 12-16 Albumin [Mass/Vol] Canceled Normal [facility] Comment on above: Order Comment: TEST RENAL FUNCTION PANEL WAS CANCELLED, 12/16/2018 20:39 NO SPECIMENRECEIVED IN LAB. Performed By: #### R ENAL ####[id number] [place] [address] Anion gap [Moles/Vol] Canceled Normal [facility] Comment on above: Order Comment: TEST RENAL FUNCTION PANEL WAS CANCELLED, 12/16/2018 20:39 NO SPECIMENRECEIVED IN LAB. Performed By: #### R ENAL ####[id number] [place] [address] Calcium [Mass/Vol] Canceled Normal [facility] Comment on above: Order Comment: TEST RENAL FUNCTION PANEL WAS CANCELLED, 12/16/2018 20:39 NO SPECIMENRECEIVED IN LAB. Performed By: #### R ENAL ####[id number] [place] [address] Chloride [Moles/Vol] Canceled Normal [facility] Comment on above: Order Comment: TEST RENAL FUNCTION PANEL WAS CANCELLED, 12/16/2018 20:39 NO SPECIMENRECEIVED IN LAB. Performed By: #### R ENAL ####[id number] [place] [address] Creatinine [Mass/Vol] Canceled Normal [facility] Comment on above: Order Comment: TEST RENAL FUNCTION PANEL WAS CANCELLED, 12/16/2018 20:39 NO SPECIMENRECEIVED IN LAB. Performed By: #### R ENAL ####[id number] [place] [address] GFR- AM. Canceled Normal [facility] Comment on above: Order Comment: TEST RENAL FUNCTION PANEL WAS CANCELLED, 12/16/2018 20:39 NO SPECIMENRECEIVED IN LAB. Result Comment: CALC ULATIONS OF ESTIMATED GFR ARE PERFORMED USING THE MDRD STUDY EQUATION FOR THE IDMS-TRACEABLE CREATININE METHODS. CLIN CHEM 2007;53:766-72 Performed By: #### R ENAL ####[id number] [place] [address] GFR-NON AM. Canceled Normal [facility] Comment on above: Order Comment: TEST RENAL FUNCTION PANEL WAS CANCELLED, 12/16/2018 20:39 NO SPECIMENRECEIVED IN LAB. Performed By: #### R ENAL ####[id number] [place] [address] Glucose [Mass/Vol] Canceled Normal [facility] Comment on above: Order Comment: TEST RENAL FUNCTION PANEL WAS CANCELLED, 12/16/2018 20:39 NO SPECIMENRECEIVED IN LAB. Performed By: #### R ENAL ####[id number] [place] [address] HCO3 (Bld) [Moles/Vol] Canceled Normal [facility] Comment on above: Order Comment: TEST RENAL FUNCTION PANEL WAS CANCELLED, 12/16/2018 20:39 NO SPECIMENRECEIVED IN LAB. Performed By: #### R ENAL ####[id number] [place] [address] Phosphate [Mass/Vol] Canceled Normal [facility] Comment on above: Order Comment: TEST RENAL FUNCTION PANEL WAS CANCELLED, 12/16/2018 20:39 NO SPECIMENRECEIVED IN LAB. Result Comment: The performance characteristics of phosphorus testing in heparinized plasma have been validated by the individual laboratory site where testing is performed. Testing on heparinized plasma is not approved by the FDA; however, such approval is not necessary. Performed By: #### R ENAL ####[id number] [place] [address] Potassium [Moles/Vol] Canceled Normal [facility] Comment on above: Order Comment: TEST RENAL FUNCTION PANEL WAS CANCELLED, 12/16/2018 20:39 NO SPECIMENRECEIVED IN LAB. Performed By: #### R ENAL ####[id number] [place] [address] Sodium [Moles/Vol] Canceled Normal [facility] Comment on above: Order Comment: TEST RENAL FUNCTION PANEL WAS CANCELLED, 12/16/2018 20:39 NO SPECIMENRECEIVED IN LAB. Performed By: #### R ENAL ####[id number] [place] [address] Urea nitrogen [Mass/Vol] Canceled Normal [facility] Comment on above: Order Comment: TEST RENAL FUNCTION PANEL WAS CANCELLED, 12/16/2018 20:39 NO SPECIMENRECEIVED IN LAB. Performed By: #### R ENAL ####[id number] [place] [address] Daily Progress Note-Medicine on 12-15-2018 Daily Progress Note-Medicine Service: Medicine Subjective Data: NATALIE GERBER is a 58 year old Male who is Hospital Day # 4. @ doing well has no complaint @ awaiting pt/ot. Objective Data: Objective Information: T PRBPSpO2 Value36.51627303/6899% Date/Time12/15 6: 6: 6: 6: 6:10 Range(36.1C [...] CAD last LHC 12/01/2018 (clean) hx of IL, hx of PE 99, ADD, CVA s/p TPA 2014, PE, HfpEF, GERD, presented to [facility] with worsening Back pain. 1. increase in chronic back pain: - follow up at [facility], had 3 fusion and scehduled to [...] GERD- continue PPI 7. CAD: s/p remote IL, PE, and last LHC was clean - c/w plavix, ASA and BB - c/w simvastatin 8. DVT prophylaxis- 60 mg Lovenox subcutaneous PPX DVT: on subQ heparin PPX GI: on PPI Electrolytes: as needed Diet: Regular IVF: no IVF Access: PIV Dispo: PT/OT Code status: Full Code Shanon Fitzgerald M.D. General Internal [facility] ([facility]a - 8p) p. [phone] (8p - 8a) Electronic Signatures: Shanon Fitzgerald) (Signed 15-Dec-2018 07:25) Authored: Service, Subjective Data, Objective Data, Assessment and Plan, Signature/Cosignature/Attest ation Last Updated: 15-Dec-2018 07:25 by Shanon Fitzgerald) Normal [facility] Discharge [id number] Discharge Profile2 Discharge Orders: Anticipated Discharge Date: Anticipated Discharge [id number] Anticipated Discharge Time11:46 Problem List: Additional Dx: [...] Therapy Orders: Occupational Therapy OrdersEval and Treat ([facility] daily Physical Therapy OrdersEval and Treat ([facility]) daily Provider Follow [...] Hearingadequate Speechclear Elimination: Bladdercontinent Bowelcontinent Last Bowel [id number] Toiletingtoilet Safety: Siderailsno Restraintsno Sitterno Fall Riskprevious [...] FINAL REVIEW of Orders, Gold Form - Wafer Fab Operator Summary Jigna Vera (STAFF N) (Signed 18-Dec-2018 17:35) Authored: Discharge Orders, Gold Form - Nursing Summary Last Updated: 18-Dec-2018 17:35 by Jigna Vera (STAFF N) Normal [facility] Daily Progress Note-Medicine on 12-14-2018 Daily Progress Note-Medicine Service: Medicine Subjective Data: NATALIE GERBER is a 58 year old Male who is Hospital Day # 3. @ doing about the same awaiting PT/OT. Objective Data: Objective Information: T PRBPSpO2 [id number]% Date/Time12/14 6: 8: 6: 8:15 6:12 Range(35.9C [...] CAD last C 12/01/2018 (clean) hx of IL, hx of PE 99, ADD, CVA s/p TPA 2014, PE, HfpEF, GERD, presented to [facility] with worsening Back pain. 1. increase in chronic back pain: - follow up at [facility], had 3 fusion and scehduled to [...] GERD- continue PPI 7. CAD: s/p remote IL, PE, and last LHC was clean - c/w plavix, ASA and BB - c/w simvastatin 8. DVT prophylaxis- 60 mg Lovenox subcutaneous PPX DVT: on subQ heparin PPX GI: on PPI Electrolytes: as needed Diet: Regular IVF: no IVF Access: PIV Dispo: PT/OT Code status: Full Code Shanon Fitzgerald M.D. General Internal Medicine [facility] (8a - 8p) p. [id number] (8p - 8a) Electronic Signatures: Shanon Fitzgerald) (Signed 14-Dec-2018 11:01) Authored: Service, Subjective Data, Objective Data, Assessment and Plan, Signature/Cosignature/Attest ation Last Updated: 14-Dec-2018 11:01 by Shanon Fitzgerald) Normal [facility] Admission Risk Screen - Adul ton 12-13-2018 Admission Risk Screen - Adult Allergies: Allergies: Nubain: Anxiety, Hives/Urticaria Toradol IV/IM: Hives/Urticaria Fish: Hives/Urticaria Patient Verification: New W ID Band Applied in my Departmentno Type of ID Patient is WearingW wristband, but not applied here Patient Transferred from Other Facility ([facility], [facility],etc)no from ED Patient Identity Verified Bypatient [...] risk with low risk for associated injury [place] Safety InterventionsWDL *orient to call system *instruct [...] Learning Preferencesverbal instruction Cultural Considerationsnone Developmental Considerationsnone Jainism Considerationsnone Learning Assessment (Other Learner): Other learner [...] Spiritual Screen: Are there any cultural, spiritual, synagogue practices/values/needs that are important for us to knowno CAGE: Is this an injured patient at a Trauma Center ([facility]/[place]): no (1) Vaccinations: Vaccination - Influenza Vaccination Screen: Is it flu season (between and September 29)No Vaccination - Pneumonia Vaccination Screen: Patient has received a previous pneumonia vaccine:no/unknown... Immunocompetent persons with underlying chronic conditions or reside in extermination inspector care facilitieschronic heart disease (excluding hypertension) Persons [...] "Triage - ED" 12/12/2018 4:47 PM Normal [facility] BASIC METABOLIC PANELon 07- Anion gap [Moles/Vol] 14 mmol/L Normal 10 - 20 [facility] Comment on above: Performed By: #### B MP ####[id number] [place] [address] Calcium [Mass/Vol] 9.1 mg/dL Normal 8.6 - 10.6 [facility] Comment on above: Performed By: #### B MP ####[id number] [place] [address] Chloride [Moles/Vol] 102 mmol/L Normal 98 - 107 [facility] Comment on above: Performed By: #### B MP ####[id number] [place] [address] Creatinine [Mass/Vol] 0.66 mg/dL Normal 0.50 - 1.30 [facility] Comment on above: Performed By: #### B MP ####[id number] [place] [address] GFR- AM. >60 Normal >60 [facility] Comment on above: Result Comment: CALC ULATIONS OF ESTIMATED GFR ARE PERFORMED USING THE MDRD STUDY EQUATION FOR THE IDMS-TRACEABLE CREATININE METHODS. CLIN CHEM 2007;53:766-72 Performed By: #### B MP ####[id number] [place] [address] GFR-NON AM. >60 Normal >60 [facility] Comment on above: Performed By: #### B MP ####[id number] [place] [address] Glucose [Mass/Vol] 110 mg/dL High 74 - 99 [facility] Comment on above: Performed By: #### B MP ####[id number] [place] [address] HCO3 (Bld) [Moles/Vol] 24 mmol/L Normal 21 - 32 [facility] Comment on above: Performed By: #### B MP ####[id number] [place] [address] Potassium [Moles/Vol] 4.1 mmol/L Normal 3.5 - 5.3 [facility] Comment on above: Performed By: #### B MP ####[id number] [place] [address] Sodium [Moles/Vol] 136 mmol/L Normal 136 - 145 [facility] Comment on above: Performed By: #### B MP ####[id number] [place] [address] Urea nitrogen [Mass/Vol] 19 mg/dL Normal 6 - 23 [facility] Comment on above: Performed By: #### B MP ####[id number] [place] [address] CBCon 12-13-2018 Erythrocyte distribution width (RBC) [Ratio] 13.9 % Normal 11.5 - 14.5 [facility] Comment on above: Performed By: #### C BC ####[id number] [place] [address] Hematocrit (Bld) [Volume fraction] 39.9 % Low 41.0 - 52.0 [facility] Comment on above: Performed By: #### C BC ####[id number] [place] [address] Hemoglobin (Bld) [Mass/Vol] 11.7 g/dL Low 13.5 - 17.5 [facility] Comment on above: Performed By: #### C BC ####[id number] [place] [address] MCHC (RBC) [Mass/Vol] 29.3 g/dL Low 32.0 - 36.0 [facility] Comment on above: Performed By: #### C BC ####[id number] [place] [address] MCV (RBC) [Entitic vol] 95 fL Normal 80 - 100 [facility] Comment on above: Performed By: #### C BC ####[id number] [place] [address] Nucleated RBC/100 WBC (Bld) [Ratio] 0.0 /100 WBC Normal 0.0-0.0 [facility] Comment on above: Performed By: #### C BC ####[id number] [place] [address] Platelets (Bld) [#/Vol] 214 10*3/uL Normal 150 - 450 [facility] Comment on above: Performed By: #### C BC ####[id number] [place] [address] RBC (Bld) [#/Vol] 4.20 x10E12/L Low 4.50 - 5.90 [facility] Comment on above: Performed By: #### C BC ####[id number] [place] [address] WBC (Bld) [#/Vol] 8.2 10*3/uL Normal 4.4 - 11.3 [facility] Comment on above: Performed By: #### C BC ####[id number] [place] [address] Daily Progress Note-Medicine on 12-13-2018 Daily Progress Note-Medicine Service: Medicine Subjective Data: NATALIE GERBER is a 58 year old Male who is Hospital Day # 2. @ doing ok, has surgery scheduled on the . @ Pt/OT ordered. Objective Data: Objective Information: T PRBPSpO2 [id number]/7192% Date/Time12/13 6: 6: 6: 6: 6:25 Range(36C [...] y/o with PMH of HDL, CAD last [facility] 12/01/2018 (clean) hx of IL, hx of PE 99, ADD, CVA s/p TPA 2014, PE, HfpEF, GERD, presented to [facility] with worsening Back pain. 1. increase in chronic back pain: - follow up at [facility], had 3 fusion and scehduled to [...] GERD- continue PPI 7. CAD: s/p remote IL, PE, and last LHC was clean - c/w plavix, ASA and BB - c/w simvastatin 8. DVT prophylaxis- 60 mg Lovenox subcutaneous PPX DVT: on subQ heparin PPX GI: on PPI Electrolytes: as needed Diet: Regular IVF: no IVF Access: PIV Dispo: PT/OT Code status: Full Code Shanon Fitzgerald M.D. General Internal Medicine [facility] (8a - 8p) p. [phone] (8p - 8a) Electronic Signatures: Shanon Fitzgerald) (Signed 13-Dec-2018 11:55) Authored: Service, Subjective Data, Objective Data, Assessment and Plan, Signature/Cosignature/Attest ation Last Updated: 13-Dec-2018 11:55 by Shanon Fitzgerald) Normal [facility] Discharge Planning Noteon Discharge Planning Note [...] Awaiting MD orders. Pilar Campuzano RN. 12/14/18 Invoicing Machine Operator Note Met with patient regarding discharge planning and home going needs. Per patient, they live at home with his brother. Patient states their primary support person during hospitalization is Jarrod Gerber [phone]. Patient states they are independent with ADL's and uses cane with ambulation. Denies a history of falls. Denies current home care, or need for home care. Patient states they feel safe at home. Denies transportation/social work/financial needs. Denies any spiritual/cultural/religous considerations regarding discharge planning. Denies supplemental home O2. Patient states they are able to afford/obtain medications. Patient uses [facility] for prescriptions. Patient's PCP is Dr. Boyce. Verified patient's address and contact information. Anticipate patient to go to [place] 01/01. patient pending PT /OT eval. Patient states if rec'd SNF he would like to go to [facility]. Will continue to follow and will update accordingly. Isidro Bergeron RNmilking worker Coordinator pager# [phone] 12/15/18 12:00pm Patient Polisher And Buffer Note: Navigator met with patient to discuss snf preference. [place] and (any of the other [facility] facilities) has decline to allow patient to return d/t behavioral issues during last admission. Patient is aware and have preference 1. [facility] [place] 2. [facility] [place] 3. [facility] [place]. Pending review/acceptance. Navigator will continue to follow. (Katie Heaton, Patient Polisher And Buffer) 12/16/18 3:30pm Patient Polisher And Buffer Note: [facility] and [facility] have declined. [facility] will do onsite visit in AM(12/17) before making their final decision. Navigator will update and continue to follow. (Katie Heaton Patient Polisher And Buffer) 12/17/18 12:30pm Patient Polisher And Buffer Note: Navigator received message via [facility] facility([facility]) able to accept. Liaison will do onsite visit this afternoon. Navigator requested facility to begin precert process. Navigator will continue to follow. (Katie Heaton, Patient Polisher And Buffer) DC note 12-18-18 5293 Patient DC to [facility]. Report called to Noemí. Patient given copy of DC instructions. Jigna Vera RN Final Disposition/Discharge: Disposition/Discharge Information: Discharge/Transfer Information: Discharge/Transfer Date/[id number] 17:50 Discharge Modewheelchair Transportation Methodtransportation service Valuables/Medications/Belong ings Returnedyes Final DispositionSkilled Nursing Facility Electronic Signatures: Isidro Bergeron (RN) [...] Screen - Adult" 12/13/2018 3:05 AM Normal [facility] History and Physicalon 12-13 History and [...] 100 mg = 2 tabs, PRN, ORAL, [id number] Zestril 20 mg oral tablet 20 mg = 1 tabs, ORAL, DAILY Result Detail Heart & Vascular Studies: Cardiac Catheterization-Report Exam Date:12/01/2018 13:41:00Report Date:12/01/2018 13:43:00 [facility] Provider: Status:FInterpreting Physician: Cardiac Catheterization-Report - Freetext Note * Patient: NATALIE GERBER Age: 58 years Sex: Male : 1960 Associated Diagnoses: None Author: DEVYN FERRER MD Indication: 58-year-old man presenting with chest pain suspicious for angina. Urgent heart catheterization was therefore recommended. Procedure: After informed consent was obtained, patient was brought to the cardiac Net Making Supervisor. He is prepped and draped in usual sterile fashion. We attempted to access the right radial artery. Unable to cannulate the right radial vessel. We therefore moved onto the femoral approach. 2% Xylocaine solution was infiltrated in the right femoral area. A 6 Azerbaijani vascular sheath was inserted into the right [...] Sneezing, Swelling Objective: Objective Information: T PRBPSpO2 Value36.75938051/9096% Date/Time12/12 21: 21: 21: 21: 21:30 Range(36.5C - 36.6C ) (84 - 90 ) (18 - 20 ) (107 - 147 )/ (77 - 115 ) (96% - 97% ) Pain reported at 12/12 19:57: 7 = Severe T PRBPSpO2 Value36.65576580/9096% Date/Time12/12 21: 21: 21: 21: 21:30 Range(36.5C [...] subcutaneous Signatures/Attestation/Certi fication: Note Completion: Provider/Team Pager #[phone] Attending Only - Shared Visit with Advanced [...] either neurosurgery or orthopedic surgery (whoever is marketing consultant for spinal surgery coverage) to evaluate patient [...] 13-Dec-2018 02:52) Authored: Signatures/Attestation/Certi fication Nevaeh Thurman (INVISIBLE BRACES ORTHODONTIST-BULK COOLERS INSTALLER) (Signed 12-Dec-2018 23:31) Authored: History of Present Illness, Comorbidities, Allergies, Medications Prior to Admission, Review of Systems, Objective, Assessment and Plan, Signatures/Attestation/Certi fication Last Updated: 13-Dec-2018 02:52 by Mikey Desai) Normal [facility] Patient Profile - Adult v2on 12-13-2018 Patient Profile - Adult v2 Profile: Initial Info: How to be AddressedGucho Spoken Language PreferredEnglish (1) Are you currently using the Personal Electronic Health Record or Heat Biologicsno Stated Reason for Admissionmy left leg was hurting and I couldn't walk on it Arrived Fromemergency department Patient Belongingsremains with patient Patient Belongings Remaining with Patientclothing; cell phone/electronics Medications Brought to Hospitalno General Health: Weight in kg144.2 kilogram(s) Weight in ami663.9 pound(s) Height in cm165.1 centimeter(s) BMI (kg/m2)52.901 square meter Weight Methodactual (measured) Scale Typebed Height Methodstated [facility] Based Care: How would you like to [...] Withalone Living Arrangementshouse Resource/Environmental Concernsnone Anticipated Transition Tolottie with help/services Services Anticipated at Transitionrehabilitation services Significant IndicatorsComplete Information Review: Allergies, Home Meds and Significant Events have been Reviewed and Verified with Patient/Familyyes ALLERGY, INTOLERANCE, ADVERSE EVENT: Allergies: Nubain: Drug, Anxiety, Hives/Urticaria, Active Toradol IV/IM: Drug, Hives/Urticaria, Active Fish: Food, Hives/Urticaria, Active Electronic Signatures: Pilar Campuzano) (Signed 13-Dec-2018 03:19) Authored: Profile, Additional Information Last Updated: 13-Dec-2018 03:19 by Pilar Campuzano (RN) References: 1. Data Referenced From "Triage - ED" 12/11/2018 8:55 PM 2. Data Referenced From Risk Screen - Adult Emergency" 12/12/2018 4:54 PM Normal [facility] CBC AND DIFFERENTIALon 12-12 % AUTOMATED IMMATURE GRAN 0.6 % Normal 0.0 - 0.9 [facility] Comment on above: Result Comment: Perc ent differential counts (%) should be interpreted in the context of the absolute cell counts (cells/L). Performed By: #### C BCDF #### [facility] [address] [place] [address] Basophils (Bld) [#/Vol] 0.04 10*3/uL Normal 0.00 - 0.10 [facility] Comment on above: Performed By: #### C BCDF #### [facility] [address] [place] [address] Basophils/100 WBC (Bld) 0.3 % Normal 0.0 - 2.0 [facility] Comment on above: Performed By: #### C BCDF #### [facility] [address] [place] [address] Eosinophils (Bld) [#/Vol] 0.12 10*3/uL Normal 0.00 - 0.70 [facility] Comment on above: Performed By: #### C BCDF #### [facility] [address] [place] [address] Eosinophils/100 WBC (Bld) 1.0 % Normal 0.0 - 6.0 [facility] Comment on above: Performed By: #### C BCDF #### [facility] [address] [place] [address] Erythrocyte distribution width (RBC) [Ratio] 14.1 % Normal 11.5 - 14.5 [facility] Comment on above: Performed By: #### C BCDF #### [facility] [address] [place] [address] Hematocrit (Bld) [Volume fraction] 37.0 % Low 41.0 - 52.0 [facility] Comment on above: Performed By: #### C BCDF #### [facility] [address] [place] [address] Hemoglobin (Bld) [Mass/Vol] 12.4 g/dL Low 13.5 - 17.5 [facility] Comment on above: Performed By: #### C BCDF #### [facility] [address] [place] [address] Lymphocytes (Bld) [#/Vol] 2.22 10*3/uL Normal 1.20 - 4.80 [facility] Comment on above: Performed By: #### C BCDF #### [facility] [address] [place] [address] Lymphocytes/100 WBC (Bld) 17.9 % Normal 13.0 - 44.0 [facility] Comment on above: Performed By: #### C BCDF #### [facility] [address] [place] [address] MCHC (RBC) [Mass/Vol] 33.5 g/dL Normal 32.0 - 36.0 [facility] Comment on above: Performed By: #### C BCDF #### [facility] [address] [place] [address] MCV (RBC) [Entitic vol] 86 fL Normal 80 - 100 [facility] Comment on above: Performed By: #### C BCDF #### [facility] [address] [place] [address] Monocytes (Bld) [#/Vol] 0.80 10*3/uL Normal 0.10 - 1.00 [facility] Comment on above: Performed By: #### C BCDF #### [facility] [address] [place] [address] Monocytes/100 WBC (Bld) 6.4 % Normal 2.0 - 10.0 [facility] Comment on above: Performed By: #### C BCDF #### [facility] [address] [place] [address] Neutrophils (Bld) [#/Vol] 9.18 10*3/uL High 1.20 - 7.70 [facility] Comment on above: Performed By: #### C BCDF #### [facility] [address] [place] [address] Neutrophils/100 WBC (Bld) 73.8 % Normal 40.0 - 80.0 [facility] Comment on above: Performed By: #### C BCDF #### [facility] [address] [place] [address] Nucleated RBC/100 WBC (Bld) [Ratio] 0.0 /100 WBC Normal 0.0-0.0 [facility] Comment on above: Performed By: #### C BCDF #### [facility] [address] [place] [address] Platelets (Bld) [#/Vol] 268 10*3/uL Normal 150 - 450 [facility] Comment on above: Performed By: #### C BCDF #### [facility] [address] [place] [address] RBC (Bld) [#/Vol] 4.31 x10E12/L Low 4.50 - 5.90 [facility] Comment on above: Performed By: #### C BCDF #### [facility] [address] [place] [address] WBC (Bld) [#/Vol] 12.4 10*3/uL High 4.4 - 11.3 [facility] Comment on above: Performed By: #### C BCDF #### [facility] [address] [place] [address] % AUTOMATED IMMATURE GRAN Canceled Normal [facility] Comment on above: Order Comment: TEST CBC AND DIFFERENTIAL WAS CANCELLED, 12/12/2018 18:52 SPECIMEN CLOTTED.PLEASE RESUBMIT. Result Comment: Perc ent differential counts (%) should be interpreted in the context of the absolute cell counts (cells/L). Performed By: #### C BCDF #### [facility] [address] [place] [address] Basophils (Bld) [#/Vol] Canceled Normal [facility] Comment on above: Order Comment: TEST CBC AND DIFFERENTIAL WAS CANCELLED, 12/12/2018 18:52 SPECIMEN CLOTTED.PLEASE RESUBMIT. Performed By: #### C BCDF #### [facility] [address] [place] [address] Basophils/100 WBC (Bld) Canceled Normal [facility] Comment on above: Order Comment: TEST CBC AND DIFFERENTIAL WAS CANCELLED, 12/12/2018 18:52 SPECIMEN CLOTTED.PLEASE RESUBMIT. Performed By: #### C BCDF #### [facility] [address] [place] [address] DIFFERENTIAL Canceled Normal [facility] Comment on above: Order Comment: TEST CBC AND DIFFERENTIAL WAS CANCELLED, 12/12/2018 18:52 SPECIMEN CLOTTED.PLEASE RESUBMIT. Performed By: #### C BCDF #### [facility] [address] [place] [address] Eosinophils (Bld) [#/Vol] Canceled Normal [facility] Comment on above: Order Comment: TEST CBC AND DIFFERENTIAL WAS CANCELLED, 12/12/2018 18:52 SPECIMEN CLOTTED.PLEASE RESUBMIT. Performed By: #### C BCDF #### [facility] [address] [place] [address] Eosinophils/100 WBC (Bld) Canceled Normal [facility] Comment on above: Order Comment: TEST CBC AND DIFFERENTIAL WAS CANCELLED, 12/12/2018 18:52 SPECIMEN CLOTTED.PLEASE RESUBMIT. Performed By: #### C BCDF #### [facility] [address] [place] [address] Erythrocyte distribution width (RBC) [Ratio] Canceled Normal [facility] Comment on above: Order Comment: TEST CBC AND DIFFERENTIAL WAS CANCELLED, 12/12/2018 18:52 SPECIMEN CLOTTED.PLEASE RESUBMIT. Performed By: #### C BCDF #### [facility] [address] [place] [address] Hematocrit (Bld) [Volume fraction] Canceled Normal [facility] Comment on above: Order Comment: TEST CBC AND DIFFERENTIAL WAS CANCELLED, 12/12/2018 18:52 SPECIMEN CLOTTED.PLEASE RESUBMIT. Performed By: #### C BCDF #### [facility] [address] [place] [address] Hemoglobin (Bld) [Mass/Vol] Canceled Normal [facility] Comment on above: Order Comment: TEST CBC AND DIFFERENTIAL WAS CANCELLED, 12/12/2018 18:52 SPECIMEN CLOTTED.PLEASE RESUBMIT. Performed By: #### C BCDF #### [facility] [address] [place] [address] Lymphocytes (Bld) [#/Vol] Canceled Normal [facility] Comment on above: Order Comment: TEST CBC AND DIFFERENTIAL WAS CANCELLED, 12/12/2018 18:52 SPECIMEN CLOTTED.PLEASE RESUBMIT. Performed By: #### C BCDF #### [facility] [address] [place] [address] MCHC (RBC) [Mass/Vol] Canceled Normal [facility] Comment on above: Order Comment: TEST CBC AND DIFFERENTIAL WAS CANCELLED, 12/12/2018 18:52 SPECIMEN CLOTTED.PLEASE RESUBMIT. Performed By: #### C BCDF #### [facility] [address] [place] [address] MCV (RBC) [Entitic vol] Canceled Normal [facility] Comment on above: Order Comment: TEST CBC AND DIFFERENTIAL WAS CANCELLED, 12/12/2018 18:52 SPECIMEN CLOTTED.PLEASE RESUBMIT. Performed By: #### C BCDF #### [facility] [address] [place] [address] Monocytes (Bld) [#/Vol] Canceled Normal [facility] Comment on above: Order Comment: TEST CBC AND DIFFERENTIAL WAS CANCELLED, 12/12/2018 18:52 SPECIMEN CLOTTED.PLEASE RESUBMIT. Performed By: #### C BCDF #### [facility] [address] [place] [address] Neutrophils (Bld) [#/Vol] Canceled Normal [facility] Comment on above: Order Comment: TEST CBC AND DIFFERENTIAL WAS CANCELLED, 12/12/2018 18:52 SPECIMEN CLOTTED.PLEASE RESUBMIT. Performed By: #### C BCDF #### [facility] [address] [place] [address] Neutrophils/100 WBC (Bld) Canceled Normal [facility] Comment on above: Order Comment: TEST CBC AND DIFFERENTIAL WAS CANCELLED, 12/12/2018 18:52 SPECIMEN CLOTTED.PLEASE RESUBMIT. Performed By: #### C BCDF #### [facility] [address] [place] [address] Nucleated RBC/100 WBC (Bld) [Ratio] Canceled Normal [facility] Comment on above: Order Comment: TEST CBC AND DIFFERENTIAL WAS CANCELLED, 12/12/2018 18:52 SPECIMEN CLOTTED.PLEASE RESUBMIT. Performed By: #### C BCDF #### [facility] [address] [place] [address] Platelets (Bld) [#/Vol] Canceled Normal [facility] Comment on above: Order Comment: TEST CBC AND DIFFERENTIAL WAS CANCELLED, 12/12/2018 18:52 SPECIMEN CLOTTED.PLEASE RESUBMIT. Performed By: #### C BCDF #### [facility] [address] [place] [address] RBC (Bld) [#/Vol] Canceled Normal [facility] Comment on above: Order Comment: TEST CBC AND DIFFERENTIAL WAS CANCELLED, 12/12/2018 18:52 SPECIMEN CLOTTED.PLEASE RESUBMIT. Performed By: #### C BCDF #### [facility] [address] [place] [address] WBC (Bld) [#/Vol] Canceled Normal [facility] Comment on above: Order Comment: TEST CBC AND DIFFERENTIAL WAS CANCELLED, 12/12/2018 18:52 SPECIMEN CLOTTED.PLEASE RESUBMIT. Performed By: #### C BCDF #### [facility] [address] [place] [address] COAGULATION SCREENon 019 aPTT Coag (Bld) [Time] 32 s Normal 28 - 38 [facility] Comment on above: Result Comment: THE APTT IS NO LONGER USED FOR MONITORING UNFRACTIONATED HEPARIN THERAPY. FOR MONITORING HEPARIN THERAPY, USE THE HEPARIN ASSAY. Performed By: #### C OAGS #### [facility] [address] [place] [address] INR Coag (PPP) [Relative time] 1.1 {INR} Normal 0.9 - 1.1 [facility] Comment on above: Performed By: #### C OAGS #### [facility] [address] [place] [address] PT Coag (PPP) [Time] 11.7 s Normal 9.7 - 12.7 [facility] Comment on above: Performed By: #### C OAGS #### [facility] [address] [place] [address] COMPREHENSIVE PANELon 2018 Albumin [Mass/Vol] 4.1 g/dL Normal 3.4 - 5.0 [facility] Comment on above: Performed By: #### C MP #### [facility] [address] [place] [address] ALP [Catalytic activity/Vol] 143 U/L High 33 - 120 [facility] Comment on above: Performed By: #### C MP #### [facility] [address] [place] [address] ALT [Catalytic activity/Vol] 15 U/L Normal 10 - 52 [facility] Comment on above: Result Comment: Susan ents treated with Sulfasalazine may generate falsely decreased results for ALT. Performed By: #### C MP #### [facility] [address] [place] [address] Anion gap [Moles/Vol] 17 mmol/L Normal 10 - 20 [facility] Comment on above: Performed By: #### C MP #### [facility] [address] [place] [address] AST [Catalytic activity/Vol] 15 U/L Normal 9 - 39 [facility] Comment on above: Performed By: #### C MP #### [facility] [address] [place] [address] Bilirubin [Mass/Vol] 0.5 mg/dL Normal 0.0 - 1.2 [facility] Comment on above: Performed By: #### C MP #### [facility] [address] [place] [address] Calcium [Mass/Vol] 9.7 mg/dL Normal 8.6 - 10.6 [facility] Comment on above: Performed By: #### C MP #### [facility] [address] [place] [address] Chloride [Moles/Vol] 100 mmol/L Normal 98 - 107 [facility] Comment on above: Performed By: #### C MP #### [facility] [address] [place] [address] Creatinine [Mass/Vol] 1.03 mg/dL Normal 0.50 - 1.30 [facility] Comment on above: Performed By: #### C MP #### [facility] [address] [place] [address] GFR- AM. >60 Normal >60 [facility] Comment on above: Result Comment: CALC ULATIONS OF ESTIMATED GFR ARE PERFORMED USING THE MDRD STUDY EQUATION FOR THE IDMS-TRACEABLE CREATININE METHODS. CLIN CHEM 2007;53:766-72 Performed By: #### C MP #### [facility] [address] [place] [address] GFR-NON AM. >60 Normal >60 [facility] Comment on above: Performed By: #### C MP #### [facility] [address] [place] [address] Glucose [Mass/Vol] 122 mg/dL High 74 - 99 [facility] Comment on above: Performed By: #### C MP #### [facility] [address] [place] [address] HCO3 (Bld) [Moles/Vol] 23 mmol/L Normal 21 - 32 [facility] Comment on above: Performed By: #### C MP #### [facility] [address] [place] [address] Potassium [Moles/Vol] 4.4 mmol/L Normal 3.5 - 5.3 [facility] Comment on above: Performed By: #### C MP #### [facility] [address] [place] [address] Protein [Mass/Vol] 7.2 g/dL Normal 6.4 - 8.2 [facility] Comment on above: Performed By: #### C MP #### [facility] [address] [place] [address] Sodium [Moles/Vol] 136 mmol/L Normal 136 - 145 [facility] Comment on above: Performed By: #### C MP #### [facility] [address] [place] [address] Urea nitrogen [Mass/Vol] 24 mg/dL High 6 - 23 [facility] Comment on above: Performed By: #### C MP #### [facility] [address] [place] [address] L-SPINE WO CONTRASTon 12-12-[address] L-SPINE WO CONTRAST Patient Name: NATALIE GREBER STUDY: CT T-SPINE WO CONTRAST; CT L-SPINE WO CONTRAST; 12/12/2018 8:26 pm; 12/12/2018 8:38 pm INDICATION: severe back pain. can't walk. hx of spinal fusion from [facility]. scheduled for repair of fusion in [place]., [place]: Yes. COMPARISON: None. ACCESSION NUMBER(S): [id number]; [id number] ORDERING CLINICIAN: JOHNIE AYALA TECHNIQUE: Axial CT [...] as stated. This study was interpreted at [facility], [place], [place]. Electronically signed by: KAYIGUHEDY SANCHEZ MD Normal [facility] NR CT T-SPINE WO CONTRASTon 12-12-[address] T-SPINE WO CONTRAST Patient Name: NATALIE GERBER STUDY: CT T-SPINE WO CONTRAST; CT L-SPINE WO CONTRAST; 12/12/2018 8:26 pm; 12/12/2018 8:38 pm INDICATION: severe back pain. can't walk. hx of spinal fusion from OSH. scheduled for repair of fusion in [place]., [place]: Yes. COMPARISON: None. ACCESSION NUMBER(S): [id number]; [id number] ORDERING CLINICIAN: JOHNIE AYALA TECHNIQUE: Axial CT [...] as stated. This study was interpreted at [place], [place]. Electronically signed by: MARY SANCHEZ MD Normal [facility] Provider Note - ED Care Ni [...] Last Updated: 16-Dec-2018 13:17 by Annamaria Terry) [facility] Provider Note - ED v2on 11-30 Provider [...] ago and ended with him admitted to half-way for four months with discharge 3 weeks ago. States that he has a planned revision of his laminectomy and fusion on Jan [address] [place] [address] Sergio Marquis. ROS: No fever, [...] has failed who was recently admitted to half-way 2/2 to his inability to care for [...] disposition. Patient was signed out to the [facility] ED resident for continued management. Final disposition is pending. Anticipate admission to medicine service for inability to ambulate at this time with surgical consult as needed. Johnie Ayala MD, MPH Emergency Medicine, PGY-3 [facility] Patient case was discussed with the attending physician, who also saw and evaluated the patient. Patient and/or patient mortician supplies sales representative was counseled regarding contents of "ED COURSE / MDM," impression and plan. All questions answered. If the patient was still in the ED as a patient when my ED shift ended the patient was turned over to the [facility] resident or attending physician. Portions of the [...] Description:Diastolic CHF Description:Mild CAD, but no h/o IL Description:TIA Description:diverticulitis Description:CVA w/ TPA Description:TIA Past [...] SIGNS: T PRBP SpO2O2(LPM) %FiO2 Method 13-Dec-2018 06:25:00-36.20768963/71 92 room air, no respiratory support 12-Dec-2018 23:46:00-592641647/75 94 room air, no respiratory support 12-Dec-2018 21:30:00-36.59079589/90 96 room air, no respiratory support 12-Dec-2018 18:24:00-6732995/77 96 room air, no respiratory support 12-Dec-2018 16:47:00-36.53628447/115 97 room air, no respiratory support CLINICAL [...] manage" notes he has revision planned in [place] on Jan [address] Sergio Marquis [...] critically ill patient: no Electronic Signatures: Johnie Ayala (Resident)) (Signed 13-Dec-2018 09:40) Authored: Provider Note - ED v2 Annamaria Terry) (Signed 16-Dec-2018 12:47) Authored: Provider Note - ED v2 Co-Signer: Provider Note - ED v2 Last Updated: 16-Dec-2018 12:47 by Annamaria Terry) References: 1. Data Referenced From "Triage - ED" 12/12/2018 04:47 PM Normal [facility] Risk Screen - Adult Emergenc yon 12-12-2018 Risk Screen - Adult Emergency Preferred Language: Preferred Language: Preferred Language for Discussing Health Care (patient/designee)Cymro Advanced Directives: Advance Directive Medicalno Advance Directive [...] Communicatenone Learning Preferencesaudio Cultural Considerationsnone Developmental Considerationsnone Jainism Considerationsnone Learning Assessment (Other Learner): Learning Assessment (Other Learner): Other learner availableno Pressure Injury/TB/Substance: Pressure Injury: Pressure Injury Present on Admissionno Do you have a coughno Substance Use Current or Former Historynever: Cigarette/Tobacco, e-Cigarette/Vaping, Alcohol, Street Drugs Admission Risk Screen: Significant IndicatorsComplete CAGE: CAGE: Is this an injured patient at a Trauma Center ([facility]/[place]): no Electronic Signatures: Nereida Atkinson (RN) (Signed 12-Dec-2018 16:55) Authored: Preferred Language, Advanced Directives, Family Violence Adult, Learning Assessment (Patient), Learning Assessment (Other Learner), Pressure Injury/TB/Substance, CAGE Last Updated: 12-Dec-2018 16:55 by Nereida Atkinson (RN) [facility] Triage - EDon 12-12-2018 Triage - ED Quick Triage: The patient and/or guardian verbally acknowledges placement for services into the following (when Urgent Care Service hours are operating):emergency department Risk Screens: Ascencio Fall Scale Scoring Reference [email or web address] Chart Review: CHIEF COMPLAINT NATALIE GERBER is a Male patient with a chief complaint of (back pain , radiates to left leg, hist sciatica. lengthy pmhx includes mi, cvax2, chf, laminectomy. scheduled for august procedure on spine.). Triage Date/Time: 12-Dec-2018 16:47 [...] History, Active Mild CAD, but no h/o IL: Past Medical History, Active Diastolic CHF: Past [...] 2016: Immunizations, Active Electronic Signatures: Nereida Atkinson (PIA) (Signed 12-Dec-2018 16:52) Authored: Triage, Past Medical History Last Updated: 12-Dec-2018 16:52 by Nereida Atkinson) [facility] Provider Note - ED v2on 11-30 Provider [...] [facility] He states the pain tonight is going [...] Description:Diastolic CHF Description:Mild CAD, but no h/o [place] Description:TIA Description:diverticulitis Description:CVA w/ TPA Description:TIA Past [...] SIGNS: T PRBP SpO2O2(LPM) %FiO2 Method 11-Dec-2018 21:51:00-22885517/84 97 room air, no respiratory support 11-Dec-2018 20:55:00-36.124412954/87 99 room air, no respiratory support 11-Dec-2018 20:49:00-36.427635034/87 99 room air, no respiratory support MEDICAL [...] v2 Last Updated: 12-Dec-2018 04:39 by Dulce eMad () [facility] Risk Screen - Adult Emergenc yon 12-11-2018 Risk Screen - Adult Emergency Preferred Language: Preferred Language: Preferred Language for Discussing Health Care (patient/designee)Cymro Advanced Directives: Advance Directive Medicalno Advance Directive [...] Learning Preferencesindividual instruction Cultural Considerationsnone Developmental Considerationsnone Jainism Considerationsnone Learning Assessment (Other Learner): Learning Assessment (Other Learner): Other learner availableno Pressure Injury/TB/Substance: Pressure Injury: Pressure Injury Present on Admissionno Do you have a coughno Substance Use Current or Former Historynever: Cigarette/Tobacco, e-Cigarette/Vaping, Alcohol, Street Drugs Admission Risk Screen: Significant IndicatorsComplete CAGE: CAGE: Is this an injured patient at a Trauma Center ([facility]/[place]): no Electronic Signatures: Reza Nicole) (Signed 11-Dec-2018 21:10) Authored: Preferred Language, Advanced Directives, Family Violence Adult, Learning Assessment (Patient), Learning Assessment (Other Learner), Pressure Injury/TB/Substance, CAGE Last Updated: 11-Dec-2018 21:10 by Reza Nicole) [facility] Triage - EDon 12-11-2018 Triage - [...] Mode of Arrival: ambulance Unit: 5 Agency: [facility] ([place]) Arrival From: home Accompanied By: self and kitchen assistant Language: Spoken Language Preferred: Cymro Reading Language Preferred: Cymro Simulation Tech Requested: no etl programmer was requested MDRO: History of MDRO: no [...] 11-Dec-2018 21:07 by Reza Nicole (RN) [facility] Utilization Review Noteon Utilization Review Note OBS LOC 11/30. CARDIOLOGY PLANNING CARD CATH. PENDING CARD CATH RESULTS. PER LELA/HARVEY, CLEARED BY CARDIOLOGY. SHE ANTICIPATES NITRO GTT BE D/C'D, AND PT DISCHARGE TONIGHT. EMAIL TO ED CM TO F/U. Noted that cruise staff member wrote change to INPT LOC. ED CM not involved in this decision. INPT LOC VALID Unable to notifiy thru the [employer] portal, faxed [employer] FAX: DENIED INPT ADMIT OF 12/01/18 ID# [id number]... P2P AVAIL PH# [phone] # [id number] [employer] FAX; APPRVED 1 INPT DAY POST P2P DENIAL OVERTURNED, D/C DATE NOTED AUTH# [id number] Normal [facility] Nursing Clinical Noteon Nursing Clinical Note Dr Mcelroy in to see patient, orders obtained for discharge and one dose of dilaudid. Intact IV removed after medications given. Patient unable to obtain ride. Call placed to [employer] provide a ride, closed for holiday. Lyft initiated with asbestos cement sheet supervisor approval. Normal [facility] Nursing Clinical Note PT RETURNED FORM Kaleigh WHITLEY. PT UNABLE TO HAVE MRI DONE SECONDARY TO HIS SIZE. RIGHT GROIN CATH SITE HEIDI D/I NO HEMATOMA OR BLEEDING. 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 The patient is well appearing on discharge, expresses understanding and is agreeable with plan for disposition. HISTORY OF PRESENTING ILLNESS NATALEI is a 58 year old Male and [...] Description:Diastolic CHF Description:Mild CAD, but no h/o IL Description:TIA Description:diverticulitis Description:CVA w/ TPA Description:TIA Past Surgical History Description:back surgery, left hip surgery, gallbladder Description:hernia surgery Description:Left Knee RESULTS/VITAL SIGNS VITAL SIGNS: T PRBP SpO2O2(LPM) %FiO2 Method 02-Dec-2018 18:09:00-36.50869409/93 98 room air, no respiratory support CLINICAL [...] "Triage - ED" 12/02/2018 06:09 PM [facility] Risk Screen - Adult Emergenc yon 12-02-2018 Risk Screen - Adult Emergency Preferred Language: Preferred Language: Preferred Language for Discussing Health Care (patient/designee)Cymro Advanced Directives: Advance Directive Medicalno Family Violence [...] instruction; written material Cultural Considerationsnone Developmental Considerationsnone Jainism Considerationsnone Learning Assessment (Other Learner): Learning Assessment (Other Learner): Other learner availableno Pressure Injury/TB/Substance: Pressure Injury: Pressure Injury Present on Admissionno Do you have a coughno Substance Use Current or Former Historynever: Cigarette/Tobacco, e-Cigarette/Vaping, Alcohol, Street Drugs Admission Risk Screen: Significant IndicatorsComplete CAGE: CAGE: Is this an injured patient at a Trauma Center ([facility]/[place]): no Electronic Signatures: Savanna Cameron (PIA) (Signed 02-Dec-2018 20:52) Authored: Preferred Language, Advanced Directives, Family Violence Adult, Learning Assessment (Patient), Learning Assessment (Other Learner), Pressure Injury/TB/Substance, CAGE Last Updated: 02-Dec-2018 20:52 by Savanna Cameron (PIA) [facility] Triage - EDon 12-02-2018 Triage - [...] than 3 weeks: no Travel outside of [facility]: no Allergies: yes Mask applied: no Patient [...] Medical History Reviewedyes Electronic Signatures: Mary Molina (PIA) (Signed 02-Dec-2018 18:14) Authored: Triage, Past Medical History Last Updated: 02-Dec-2018 18:14 by Mary Molina (PIA) [facility] AUTO DIFFon 12-01-2018 Basophils (Bld) [#/Vol] 0.05 x1000 Normal 0.00-0.20 [facility] Comment on above: Performed By: #### 1 02225, 655741, [id number] ####[facility] [address] [place] [address] Medical Director: Duran Marcus MD Basos % 0.6 % Normal [facility] Comment on above: Performed By: #### 1 81889, 399130, [id number] ####[facility] [address] [place] [address] Medical Director: Duran Marcus MD Eos Count 0.11 x1000 Normal 0.00-0.50 [facility] Comment on above: Performed By: #### 1 36085, 409092, [id number] ####[facility] [address] [place] [address] Medical Director: Duran Marcus MD Eosinophils/100 WBC (Bld) 1.3 % Normal [facility] Comment on above: Performed By: #### 1 , 389226, [id number] ####[facility] [address] [place] [address] Medical Director: Duran Marcus MD Lymphocytes (Bld) [#/Vol] 2.43 x1000 Normal 1.20-4.80 [facility] Comment on above: Performed By: #### 1 11000, 728347, [id number] ####[facility] [address] [place] [place] [address] Medical Director: Duran Marcus MD Lymphocytes/100 WBC (Bld) 27.2 % Normal [facility] Comment on above: Performed By: #### 1 95059, 767660, [id number] ####[facility] [address] [place] [address] Medical Director: Duran Marcus MD Dane Count 0.47 x1000 Normal 0.10-1.00 [facility] Comment on above: Performed By: #### 1 27060, 061082, [id number] ####[facility] [address] [place] [address] Medical Director: Duran Marcus MD Monocytes/100 WBC (Bld) 5.2 % Normal [facility] Comment on above: Performed By: #### 1 36661, 619165, [id number] ####[facility] [address] [place] [address] Medical Director: Duran Marcus MD Neutrophils (Bld) [#/Vol] 5.88 x1000 Normal 1.40-8.80 [facility] Comment on above: Performed By: #### 1 71945, 643313, [id number] ####[facility] [address] [place] [address] Medical Director: Duran Marcus MD Neutrophils/100 WBC (Bld) 65.7 % Normal [facility] Comment on above: Performed By: #### 1 04560, 908857, 6281304 ####[facility] [address] [place] [address] Medical Director: Duran Marcus MD BASICMETAon 12-01-2018 GFR AA >60 Normal [facility] Comment on above: Result Comment: Afri can Greenlandic GFR Calc Medical judgement is necessary to [...] for drug dosing. Performed By: #### 1 96366, 173303, [id number] ####[facility] [address]ft[address] [place], [place] [id number]) [phone] Director: Duran Marcus MD GFR/1.73 sq M predicted among non-blacks MDRD (S/P/Bld) [Vol rate/Area] mL/min/{1.73_m2} Normal [facility] Comment on above: Result Comment: Non GFR [...] for drug dosing. Performed By: #### 1 25647, 362130, [id number] ####[facility] [address] [place] [id number] Medical Director: Duran Marcus MD Osmolality [Osmolality] 274 mOsm/kg Low 275-295 [facility] Comment on above: Performed By: #### 1 , 529061, [id number] ####[facility] [address] [place] [id number] Medical Director: Duran Marcus MD Urea nitrogen/Creatinine [Mass ratio] 12.9 mg/mg Normal [facility] Comment on above: Performed By: #### 1 , 504092, [id number] ####[facility] [address] [place] [id number] Medical Director: Duran Marcus MD Calcium [Mass/Vol] 8.5 mg/dL Normal 8.5-10.5 [facility] Comment on above: Performed By: #### 1 , 438339, 7482438 ####[facility] [address] [place] [address]30 Medical Director: Duran Marcus MD Chloride [Moles/Vol] 104 mmol/L Normal 100-109 [facility] Comment on above: Performed By: #### 1 , 069853, [id number] ####[facility] [address] [place] [address]30 Medical Director: Duran Marcus MD CO2, venous 29.0 mmol/L Normal 21.0-32.0 [facility] Comment on above: Performed By: #### 1 72480, 990224, 8266616 ####[facility] [address] [place] [address] Medical Director: Duran Marcus MD Creatinine [Mass/Vol] 0.9 mg/dL Normal 0.7-1.3 [facility] Comment on above: Performed By: #### 1 47307, 035683, 5632678 ####[facility] Tbroiz[address] [place], [place] [id number]) [phone] Director: Duran Marcus MD Glucose [Mass/Vol] 108 mg/dL High 72-100 [facility] Comment on above: Result Comment: Stacie puncture should occur prior to sulfasalazine administration due to the potential for falsely depressed results. Venipuncture should occur prior to sulfapyridine administration due to the potential falsely elevated results. Baseline assay values before administration of sulfasalazine and sulfapyridine therapy would not be affected. Performed By: #### 1 41337, 851873, 9374511 ####[facility] [address] [place] [address] Medical Director: Duran Marcus MD Potassium [Moles/Vol] 3.7 mmol/L Normal 3.5-5.1 [facility] Comment on above: Performed By: #### 1 53067, 386086, 2827732 ####[facility] [address] [place], [place] [id number]) [phone] Director: Duran Marcus MD Sodium [Moles/Vol] 137 mmol/L Normal 135-145 [facility] Comment on above: Performed By: #### 1 64564, 956656, [id number] ####[facility] Vx[address]apvr377[address] [place] [address] Medical Director: Duran Marcus MD Urea nitrogen [Mass/Vol] 11 mg/dL Normal 10-20 [facility] Comment on above: Performed By: #### 1 61759, 999810, [id number] ####[facility] [address]zzbcrah85143 [place] [address] Medical Director: Duran Marcus MD Cardiac Catheterization-Repo rton 12-01-2018 Cardiac Catheterization-[facility] Patient: NATALIE GERBER Age: 58 years Sex: Male : 1960 Associated Diagnoses: None Author: DEVYN FERRER MD Indication: 58-year-old man presenting with chest pain suspicious for angina. Urgent heart catheterization was therefore recommended. Procedure: After informed consent was obtained, patient was brought to the cardiac Net Making Supervisor. He is prepped and draped in usual sterile fashion. We attempted to access the right radial artery. Unable to cannulate the right radial vessel. We therefore moved onto the femoral approach. 2% Xylocaine solution was infiltrated in the right femoral area. A 6 Azerbaijani vascular sheath was inserted into the right [...] coronary arteries. 2. Normal LV function. Normal [facility] Consult Reporton 12-01-2018 Consult Report Patient: SHIV GERBER Age: 58 years Sex: Male : 1960 Associated Diagnoses: None Author: YVROSE LUCERO, [facility] IMPRESSION: 1. Unstable angina [...] ER for evaluation of substernal chest discomfort. [place] like a brick was on the center of his chest. It is a pressure tightness. Also some discomfort in his left shoulder and up the left side of his neck. He has no history of coronary artery disease. Heart catheterization many years ago [place]. He also has a history of stroke for which he got thrombolytics. He is a half-way for 5 months due to his sciatica. He is . He does get out of the half-way. [place] was in [place] yesterday and he started get this chest [...] (DEC 01 06:00) SBP 137 mmHg (DEC 01 06:00) DBP 63 mmHg (DEC 01 06:00) Weight 140.8 kg (DEC 01 04:00) Height 165.10 cm (NOV 30 21:40) BMI 49.53 (NOV 30 21:40) General: Stable, with no apparent distress. Neck: [...] fL 12/01/18 Lymph % 27.2 % 12/01/18 Dane % 5.2 % 12/01/18 Neutrophil % 65.7 % 12/01/18 Eosin % 1.3 % 12/01/18 Basos % 0.6 % 12/01/18 Lymph Count 2.43 x1000 12/01/18 Dane Count 0.47 x1000 12/01/18 Neutrophil Count (ANC) 5.88 x1000 12/01/18 Eos Count 0.11 x1000 12/01/18 Baso Count 0.05 x1000 12/01/18 Nucleated RBC 0 /100WBC 12/01/18 Normal [facility] ED Progress Noteon 9 ED Progress Note PT [facility] EX 27 WITH C/O LEFT MIDSTERNAL CHEST PRESSURE RADIATING INTO LEFT ARM AND TINGLING INTO LEFT SHOULDER AND LEFT SIDE OF FACE. PT DENIES SOB. 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 PT ALSO C/O NAUSEA, DENIES VOMITING OR DIARRHEA. PT WITH HX OF IL. #20G IV LEFT AC ESTABLISHED BY SQUAD. 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 EKG COMPLETE. WILL CONTINUE TO MONITOR. 1910 PT MEDICATED PER ORDER. WILL CONTINUE TO MONITOR. 2050 PT MEDICATED, NITRO GTT INITIATED PER ORDER. WILL CONTINUE TO MONITOR. 2119 REPORT CALLED TO PIA [facility]. [facility]. Normal [facility] HEMOon 12-01-2018 DIFF? No Normal [facility] Comment on above: Performed By: #### 1 85397, 336757, [id number] ####[facility] Qxdrofgb10787 [place] [address] Medical Director: Duran Marcus MD Erythrocyte distribution width (RBC) [Ratio] 14.6 % High 11.5-14.5 [facility] Comment on above: Performed By: #### 1 71321, 077934, [id number] ####[facility] Yvritevq50286 [place] [address] Medical Director: Duran Marcus MD Hematocrit (Bld) [Volume fraction] 38.9 % Low 41.0-52.0 [facility] Comment on above: Performed By: #### 1 68018, 013794, 7210791 ####[facility] Zduvwcyu12022 [place] [address] Medical Director: Duran Marcus MD Hemoglobin (Bld) [Mass/Vol] 12.6 g/dL Low 13.5-17.5 [facility] Comment on above: Performed By: #### 1 81662, 702517, [id number] ####[facility] Rttwotuo52404 [place] [address] Medical Director: Duran Marcus MD MCH (RBC) [Entitic mass] 28.5 pg Normal 27.0-34.0 [facility] Comment on above: Performed By: #### 1 84723, 701495, 3653484 ####[facility] [address] [place], [place] [address] Medical Director: Duran Marcus MD MCHC (RBC) [Mass/Vol] 32.5 g/dL Normal 32.0-37.0 [facility] Comment on above: Performed By: #### 1 53720, 430873, 8544007 ####[facility] [address] [place] [address] Medical Director: Duran Marcus MD MCV (RBC) [Entitic vol] 87.6 fL Normal 80.0-100.0 [facility] Comment on above: Performed By: #### 1 10829, 671906, 3280234 ####[facility] Hovegigb24032 [place] [address] Medical Director: Duran Marcus MD Nucleated RBC (Bld) [#/Vol] 0 /100WBC Normal [facility] Comment on above: Performed By: #### 1 31053, 125137, 5072518 ####[facility] [address]nghvijp19108 [place] [address] Medical Director: Duran Marcus MD Platelet mean volume (Bld) [Entitic vol] 7.4 fL Normal 7.4-10.4 [facility] Comment on above: Performed By: #### 1 70300, 677028, 8955295 ####[facility] Nkbqwznz93104 [place] [address] Medical Director: Duran Marcus MD Platelets (Bld) [#/Vol] 264 x1000 Normal 150-450 [facility] Comment on above: Performed By: #### 1 68303, 036481, 5462012 ####[facility] Lodhdxxv35488 [place] [address] Medical Director: Duran Marcus MD RBC (Bld) [#/Vol] 4.44 x10 Low 4.70-6.10 [facility] Comment on above: Result Comment: Note : RBC morphology is normal unless otherwise stated. Evaluation performed only if differential is requested. Performed By: #### 1 92448, 917685, 3240427 ####[facility] Ixpgyouc22992 [place] [address] Medical Director: Duran Marcus MD WBC (Bld) [#/Vol] 8.9 10*3/uL Normal [facility] Comment on above: Performed By: #### 1 69573, 025611, 2884152 ####[facility] Pnojpbbe46674 [place] [address] Medical Director: Duran Marcus MD WBC (Bld) [#/Vol] 8.9 x10 Normal 4.5-11.0 [facility] Comment on above: Performed By: #### 1 16784, 371478, 3290309 ####[facility] [address]ju[address]ro[address] [place] [address] Medical Director: Duran Marcus MD History and Physicalon 12-01 History and Physical Patient: VICKI GERBER Age: 58 years Sex: Male : 1960 Associated Diagnoses: None Author: JUSTIN LUCERO, [facility] Basic Information Source of history: [...] Procedure history: Left Heart Catheterization, left ventriculogram. (61907) on 12/01/2018 at 58 Years. Total Hip Replacement. (36823). Comments: 11/30/2018 21:39 SREE Johnson RN, Lisa LEFT BACK SX. HERNIA REPAIR. Cholecystectomy; (97669). Social History Social & Psychosocial Habits Alcohol [...] 30 21:40) BMI 49.53 (NOV 30:40) General: Alert and oriented, No acute distress. [...] lymphadenopathy neck, axilla, groin. Integumentary: Warm, Dry, Meno, Not intact. Neurologic: Alert, Oriented, Normal sensory, [...] 100 mg = 2 tabs, PRN, ORAL, [id number] Zestril 10 mg oral tablet 10 mg [...] CHLORIDE SYR/VIAL 10ML 3 mL, IV Push, [id number] SODIUM CHLORIDE SYR/VIAL 10ML 3 mL, IV Push, [id number] Continuous: (4) NITROGLYCERIN IN D5W 50 mg [9.9 mcg/min] + Premix 250 mL 250 mL, IV, 2.97 mL/hr SODIUM CHLORIDE 0.9% 1,000 mL 1,000 mL, IV, 100 mL/hr SODIUM CHLORIDE 0.9% 1,000 mL 1,000 mL, IV, 80 mL/hr SODIUM CHLORIDE 0.9% 250 mL 250 mL, IV, 999 mL/hr PRN: (9) ACETAMINOPHEN 325 MG TAB 650 mg 2 tabs, ORAL, [id number] ACETAMINOPHEN 325 MG TAB 650 mg 2 tabs, ORAL, [id number] ATROPINE 0.1MG/1ML 10ML SYRINGE 1 mg 10 mL, IV Push, PRN NITROGLYCERIN 0.4MG SL TABLET 0.4 mg 1 tabs, Sublingual, Q5MIN ONDANSETRON=ZOFRAN INJ 4 mg 2 mL, IV Push, [id number] SODIUM CHLORIDE SYR/VIAL 10ML 3 mL, IV Push, PRN SODIUM CHLORIDE SYR/VIAL 10ML 3 mL, IV Push, PRN TramADOL 50MG TABLET 100 mg 2 tabs, ORAL, [id number] ZOLPIDEM 2.5MG/ 0.5 TABLET 2.5 mg 1 EA, ORAL, [id number] Impression and Plan - Normal [facility] History and Physical Patient: VICKI GERBER Age: [...] a heart catheterization many years ago in [place]. He has a history of stroke for which she got thrombosis. He is a half-way for sciatica. He is very worried he [...] Procedure history: Left Heart Catheterization, left ventriculogram. (49158) on 12/01/2018 at 58 Years. Total Hip Replacement. (03056). Comments: 11/30/2018 21:39 SREE Johnson RN, Lisa LEFT BACK SX. HERNIA REPAIR. Cholecystectomy; (83385). Social History Social & Psychosocial Habits Alcohol [...] lymphadenopathy neck, axilla, groin. Integumentary: Warm, Dry, Meno, Not intact. Neurologic: Alert, Oriented, Normal sensory, [...] 100 mg = 2 tabs, PRN, ORAL, [id number] Zestril 10 mg oral tablet 10 mg [...] CHLORIDE SYR/VIAL 10ML 3 mL, IV Push, [id number] SODIUM CHLORIDE SYR/VIAL 10ML 3 mL, IV Push, [id number] Continuous: (4) NITROGLYCERIN IN D5W 50 mg [9.9 mcg/min] + Premix 250 mL 250 mL, IV, 2.97 mL/hr SODIUM CHLORIDE 0.9% 1,000 mL 1,000 mL, IV, 100 mL/hr SODIUM CHLORIDE 0.9% 1,000 mL 1,000 mL, IV, 80 mL/hr SODIUM CHLORIDE 0.9% 250 mL 250 mL, IV, 999 mL/hr PRN: (9) ACETAMINOPHEN 325 MG TAB 650 mg 2 tabs, ORAL, [id number] ACETAMINOPHEN 325 MG TAB 650 mg 2 tabs, ORAL, [id number] ATROPINE 0.1MG/1ML 10ML SYRINGE 1 mg 10 mL, IV Push, PRN NITROGLYCERIN 0.4MG SL TABLET 0.4 mg 1 tabs, Sublingual, Q5MIN ONDANSETRON=ZOFRAN INJ 4 mg 2 mL, IV Push, [id number] SODIUM CHLORIDE SYR/VIAL 10ML 3 mL, IV Push, PRN SODIUM CHLORIDE SYR/VIAL 10ML 3 mL, IV Push, PRN TramADOL 50MG TABLET 100 mg 2 tabs, ORAL, D0HPMWH ZOLPIDEM 2.5MG/ 0.5 TABLET 2.5 mg 1 EA, ORAL, QHS/[id number] Impression and Plan -1. Unstable angina. Patient on undergo cardiac catheter today. Continue beta heidi, aspirin, Plavix 2. History of stroke and an aspirin and Plavix. Morbid obesity advisable diet and exercise 4. GERD. Continue PPI. 5. Hypothyroidism. Continue Synthroid. 6. Depression continue Seroquel and citalopram [employer] Normal [facility] Nursing Clinical Noteon Nursing Clinical Note 0800 Pt sitting in bed, assessment as charted. EKG sinus tach. Reports shoulder pain, occasional numbness to left side of face. Nitro infusing. Scabs noted all over body, pt reports yady a fiber picker, appears without infection. at bedside, plan for cardiac cath this afternoon, Pt updated. All needs addressed. 1240 Pt to earth science laboratory technician, belongings secured. Report at bedside. 1340 Return from earth science laboratory technician, bedrest maintained. Right groin site intact, no drainage, pulse palpable. Pt reports continued shoulder pain and facial numbness. 1640 Discussed plan of care w. Dr. Mcelroy, Sebastian for floor transfer, MRI, carotid duplex and neuro consult ordered. Normal [facility] Nursing Clinical Note Received handoff r eport from ED RN. Pt brought to floor via cart. Pt transferred from cart to bed with assist of cane. See CCFS. Pt connected to b/p cuff/ alarm security or surveillance monitor. and pulse ox. Called Dr Mcelroy and obtained orders. Normal [facility] TROPONINon 12-01-2018 Troponin I.cardiac [Mass/Vol] ng/mL Normal 0.000-0.09 9 [facility] Comment on above: Order Comment: First Troponin will be drawn STAT, Report abnormal results to Attending Result Comment: This test is a quantitative determination of cardiac troponin I. High levels of serum biotin may interfere with this test. Performed By: #### 1 89049 ####[facility] [address]gtsjxog33[address] [place], [place] [address] Medical Director: Duran Marcus MD Troponin I.cardiac [Mass/Vol] ng/mL Normal 0.000-0.09 9 [facility] Comment on above: Order Comment: First Troponin will be drawn STAT, Report abnormal results to Attending Result Comment: This test is a quantitative determination of cardiac troponin I. High levels of serum biotin may interfere with this test. Performed By: #### 1 87553 ####[facility] [address] [place] [id number] Medical Director: Duran Marcus MD Vascular Lab Reporton 2018 Vascular Lab Report PRELIMINARY VASCULAR REPORT Carotid duplex completed No hemodynamically significant stenosis bilateral internal carotid arteries. REPORT TO FOLLOW Normal [facility] APTTon 11-30-2018 aPTT Coag (Bld) [Time] 26.9 s Low 28.0-38.0 [facility] Comment on above: Performed By: #### 1 18792, 952320, 183024, 207724, 301613, 5446981 #### [facility] Services [address] [place], [place] [address] Loom Overhauler: Duran Marcus MD AUTO DIFFon 11-30-2018 Basophils (Bld) [#/Vol] 0.08 x1000 Normal 0.00-0.20 [facility] Comment on above: Performed By: #### 1 96254, 771670, 336264, 515031, 500299, 8095302 #### [facility] Services [address] [place] [address] Loom Overhauler: Duran Marcus MD Basos % 0.8 % Normal [facility] Comment on above: Performed By: #### 1 63445, 315281, 855240, 724807, 246502, 2486312 #### [facility] [address] [place] [address] Loom Overhauler: Duran Marcus MD Eos Count 0.11 x1000 Normal 0.00-0.50 [facility] Comment on above: Performed By: #### 1 76654, 483538, 076343, 143587, 430318, 1453278 #### [facility] Services [address] [place] [address] Loom Overhauler: Duran Marcus MD Eosinophils/100 WBC (Bld) 1.1 % Normal [facility] Comment on above: Performed By: #### 1 67594, 359636, 268820, 869673, 345690, 5571204 #### [facility] [address] [place] [address] Loom Overhauler: Duran Marcus MD Lymphocytes (Bld) [#/Vol] 1.79 x1000 Normal 1.20-4.80 [facility] Comment on above: Performed By: #### 1 69951, 855691, 636800, 399407, 813403, 6466593 #### [facility] [address] [place] [address] Loom Overhauler: Duran Marcus MD Lymphocytes/100 WBC (Bld) 17.6 % Normal [facility] Comment on above: Performed By: #### 1 05403, 003771, 226769, 737728, 606821, 9399720 #### [facility] [address] [place] [address] Loom Overhauler: Duran Marcus MD Dane Count 0.41 x1000 Normal 0.10-1.00 [facility] Comment on above: Performed By: #### 1 63395, 537245, 701320, 117120, 036690, 8218088 #### [facility] [address] [place] [address] Loom Overhauler: Duran Marcus MD Monocytes/100 WBC (Bld) 4.0 % Normal [facility] Comment on above: Performed By: #### 1 63479, 060249, 632522, 468064, 165138, 7550437 #### [facility] [address] [place] [address] Loom Overhauler: Duran Marcus MD Neutrophils (Bld) [#/Vol] 7.78 x1000 Normal 1.40-8.80 [facility] Comment on above: Performed By: #### 1 87317, 497763, 338425, 229403, 584933, 2231560 #### [facility] [address] [place] [address] Loom Overhauler: Duran Marcus MD Neutrophils/100 WBC (Bld) 76.4 % Normal [facility] Comment on above: Performed By: #### 1 95705, 448706, 221264, 882356, 821606, 5388225 #### [facility] [address] [place] [address] Loom Overhauler: MD Olivia Ayala TYPE PEPon 11-30-2018 Natriuretic peptide B (Bld) [Mass/Vol] 7 pg/mL Normal 0-100 [facility] Comment on above: Performed By: #### 3 274309 ####[facility] [address] [place] [address] Medical Director: Duran Marcus MD COMPMETAon 11-30-2018 Albumin/Globulin [Mass ratio] 0.8 {ratio} Normal [facility] Comment on above: Performed By: #### 1 89415, 465423, 456965, 463156, 691094, 7898809 #### [facility] [address] [place] [address] Loom Overhauler: Duran Marcus MD GFR AA >60 Normal [facility] Comment on above: Result Comment: Afri can Greenlandic GFR Calc Medical judgement is necessary to [...] for drug dosing. Performed By: #### 1 88089, 035757, 323107, 570303, 147401, 1397739 #### [facility] [address] [place] [address] Loom Overhauler: Duran Marcus MD GFR/1.73 sq M predicted among non-blacks MDRD (S/P/Bld) [Vol rate/Area] mL/min/{1.73_m2} Normal [facility] Comment on above: Result Comment: Non GFR [...] for drug dosing. Performed By: #### 1 36865, 354039, 442237, 496115, 380733, 8867726 #### [facility] [address] [place] [address] Loom Overhauler: Duran Marcus MD Globulin (S) [Mass/Vol] 4.2 g/dL Normal [facility] Comment on above: Performed By: #### 1 46254, 303783, 295182, 507216, 991684, 1337521 #### [facility] [address] [place] [address] Loom Overhauler: Duran Marcus MD Osmolality [Osmolality] 273 mOsm/kg Low 275-295 [facility] Comment on above: Performed By: #### 1 78884, 118821, 594682, 886239, 819270, 6235487 #### [facility] [address] [place] [address] Loom Overhauler: Duran Marcus MD Urea nitrogen/Creatinine [Mass ratio] 12.4 mg/mg Normal [facility] Comment on above: Performed By: #### 1 94392, 212869, 814309, 034723, 689175, 8200606 #### [facility] [address] [place] [address] Loom Overhauler: Duran Marcus MD Albumin [Mass/Vol] 3.5 g/dL Normal 3.4-5.0 [facility] Comment on above: Performed By: #### 1 66262, 751179, 198456, 556326, 617180, 8372512 #### [facility] [address] [place] [address] Loom Overhauler: Duran Marcus MD Alk Phos 191 unit/L High 45-117 [facility] Comment on above: Performed By: #### 1 07530, 560275, 479819, 548878, 068884, 5839374 #### [facility] [address] [place] [address] Loom Overhauler: Duran Marcus MD Bilirubin [Mass/Vol] 0.36 mg/dL Normal 0.20-1.00 [facility] Comment on above: Performed By: #### 1 65795, 218204, 284152, 081277, 631080, 9604170 #### [facility] [address] [place] [address] Loom Overhauler: Duran Marcus MD Calcium [Mass/Vol] 8.4 mg/dL Low 8.5-10.5 [facility] Comment on above: Performed By: #### 1 72006, 715996, 888551, 059324, 171016, 5542290 #### [facility] [address] [place] [address] Loom Overhauler: Duran Marcus MD Chloride [Moles/Vol] 105 mmol/L Normal 100-109 [facility] Comment on above: Performed By: #### 1 65464, 626032, 892535, 216898, 661058, 5761162 #### [facility] [address] [place] [address] Loom Overhauler: Duran Marcus MD CO2, venous 24.5 mmol/L Normal 21.0-32.0 [facility] Comment on above: Performed By: #### 1 14308, 367759, 192172, 894277, 921825, 3190858 #### [facility] [address] [place] [address] Loom Overhauler: Duran Marcus MD Creatinine [Mass/Vol] 0.8 mg/dL Normal 0.7-1.3 [facility] Comment on above: Performed By: #### 1 45077, 880263, 712632, 865579, 104468, 0586561 #### [facility] [address] [place] [address] Loom Overhauler: Duran Marcus MD Glucose [Mass/Vol] 104 mg/dL High 72-100 [facility] Comment on above: Result Comment: Stacie puncture should occur prior to sulfasalazine administration due to the potential for falsely depressed results. Venipuncture should occur prior to sulfapyridine administration due to the potential falsely elevated results. Baseline assay values before administration of sulfasalazine and sulfapyridine therapy would not be affected. Performed By: #### 1 38352, 641043, 528891, 398970, 401619, 5314627 #### [facility] [address] [place] [address] Loom Overhauler: Duran Marcus MD GOT 14 unit/L Low 15-37 [facility] Comment on above: Result Comment: Stacie puncture should occur prior to sulfasalazine and/or sulfapyridine administration due to the potential for falsely depressed results. Baseline assay values before administration of sulfasalazine and sulfapyridine therapy would not be affected. Performed By: #### 1 51929, 253742, 730751, 699317, 999617, 7923788 #### [facility] [address] [place] [address] Loom Overhauler: Duran Marcus MD GPT 10 unit/L Low 16-61 [facility] Comment on above: Result Comment: Stacie puncture should occur prior to sulfasalazine and/or sulfapyridine administration due to the potential for falsely depressed results. Baseline assay values before administration of sulfasalazine and sulfapyridine therapy would not be affected. Performed By: #### 1 15131, 428495, 641973, 065833, 253111, 0434130 #### [facility] [address] [place] [address] Loom Overhauler: Duran Marcus MD Potassium [Moles/Vol] 3.9 mmol/L Normal 3.5-5.1 [facility] Comment on above: Performed By: #### 1 96859, 594424, 464234, 219010, 366140, 1300665 #### [facility] [address] [place] [address] Loom Overhauler: Duran Marcus MD Protein [Mass/Vol] 7.7 g/dL Normal 6.0-8.5 [facility] [facility] Comment on above: Performed By: #### 1 84578, 362848, 561662, 642045, 350814, [id number] #### [facility] [address] [place] [address] Loom Overhauler: Duran Marcus MD Sodium [Moles/Vol] 137 mmol/L Normal 135-145 [facility] Comment on above: Performed By: #### 1 76723, 459733, 069147, 494318, 954133, 4553387 #### [facility] [address] [place] [address] Loom Overhauler: Duran Marcus MD Urea nitrogen [Mass/Vol] 10 mg/dL Normal 10-20 [facility] Comment on above: Performed By: #### 1 17944, 433288, 520774, 300996, 526477, 0309154 #### [facility] [address] [place] [address] Loom Overhauler: Duran Marcus MD ED Physician Reporton 2018 [...] 58 y/o male, with a history of IL and CHF, presenting to the ED via EMS for L sided CP. Per squad pt was diaphoretic and experiencing CP when he called squad. En route squad gave pt 1 NTG [...] notes SOB only with exertion. Pt's last IL was in 2005. However, he was seen [...] transdermal film, extended release: 1 patches, Topical, [id number], 0 Refill(s) simvastatin 40 mg oral tablet: 40 mg, 1 tabs, ORAL, QHS, 30 tabs, 0 Refill(s) traMADol 50 mg oral tablet: 100 mg, 2 tabs, ORAL, [id number], PRN: as needed for pain, 0 Refill(s), [...] % NA Lymph Count 1.79 x1000 NORMAL Dane Count 0.41 x1000 NORMAL Neutrophil Count (ANC) [...] answered.. Impression and Plan Diagnosis Chest pain (YFG01-TP R07.9, Admitting, Emergency medicine, Medical) History of coronary artery disease (NAP61-MO Z86.79, Admitting, Emergency medicine, Medical) Plan Condition: Stable. Disposition: Admit time 11/30/2018 19:56:00, Place in Observation Unit, CONCETTA MCELROY MD, Pt is being admitted to outpatient with observation services, critical care unit. Counseled: Patient, Regarding diagnosis, Regarding diagnostic results, Regarding treatment plan, Patient indicated understanding of instructions. Notes: Matilda German scribing for and in the presence of Dr. Jayden Conley DO. Kirte Signature: Mae King, 11/30/2018 17:32 , I personally performed the services described in the documentation, reviewed and edited the documentation which was dictated to the scribe in my presence, and it accurately records my words and actions.. Normal [facility] ED Pre-Arrival Formon 2018 ED Pre-Arrival Form Pre-Arrival Summary Name: MARLEY, Current Date: 11/30/2018 17:08:43 EDT Gender: Date of : Age: Pre-Arrival Type: EMS ETA: 11/30/2018 17:28:00 EDT Primary Care Physician: Presenting Problem: Pre-Arrival User: Wendy Cuello RN Referring Source: Location: [address] [place] [address] Emergency Department [address] [place] [address] Notes: Vital Signs: Doctor Call Back: DNR Status: Miscellaneous Issues: Normal [facility] HEMOon 11-30-2018 DIFF? No Normal [facility] Comment on above: Performed By: #### 1 94807, 395584, 745179, 065250, 619132, 4042565 #### [facility] [address] [place], [place] [address] Loom Overhauler: Duran Marcus MD Erythrocyte distribution width (RBC) [Ratio] 14.3 % Normal 11.5-14.5 [facility] Comment on above: Performed By: #### 1 03363, 282896, 089334, 918707, 628989, 1835431 #### [facility] [address] [place] [address] Loom Overhauler: Duran Marcus MD Hematocrit (Bld) [Volume fraction] 36.0 % Low 41.0-52.0 [facility] Comment on above: Performed By: #### 1 72618, 517143, 247111, 803347, 553846, 0343082 #### [facility] [address] [place] [address] Loom Overhauler: Duran Marcus MD Hemoglobin (Bld) [Mass/Vol] 11.9 g/dL Low 13.5-17.5 [facility] Comment on above: Performed By: #### 1 30114, 343640, 132076, 735644, 887800, 0558482 #### [facility] [address] [place] [address] Loom Overhauler: Duran Marcus MD MCH (RBC) [Entitic mass] 29.0 pg Normal 27.0-34.0 [facility] Comment on above: Performed By: #### 1 27927, 729537, 124173, 966844, 453467, 7897522 #### [facility] [address] [place], [place] [address] Loom Overhauler: Duran Marcus MD MCHC (RBC) [Mass/Vol] 33.2 g/dL Normal 32.0-37.0 [facility] Comment on above: Performed By: #### 1 19642, 071532, 507654, 815071, 949938, 2819420 #### [facility] [address] [place], [place] [address] Loom Overhauler: Duran Marcus MD MCV (RBC) [Entitic vol] 87.5 fL Normal 80.0-100.0 [facility] Comment on above: Performed By: #### 1 14261, 670812, 854236, 692702, 939593, 6820541 #### [facility] [address] [place] [address] Loom Overhauler: Duran Marcus MD Nucleated RBC (Bld) [#/Vol] 0 /100WBC Normal [facility] Comment on above: Performed By: #### 1 26427, 899776, 168891, 811605, 718388, 1951878 #### [facility] [address] [place] [address] Loom Overhauler: Duran Marcus MD Platelet mean volume (Bld) [Entitic vol] 7.4 fL Normal 7.4-10.4 [facility] Comment on above: Performed By: #### 1 44214, 562064, 831991, 426367, 574968, 1392147 #### [facility] [address] [place] [address] Loom Overhauler: Duran Marcus MD Platelets (Bld) [#/Vol] 254 x1000 Normal 150-450 [facility] Comment on above: Performed By: #### 1 68752, 928552, 214258, 786116, 021006, 4665699 #### [facility] [address] [place] [address] Loom Overhauler: Duran Marcus MD RBC (Bld) [#/Vol] 4.12 x10 Low 4.70-6.10 [facility] Comment on above: Result Comment: Note : RBC morphology is normal unless otherwise stated. Evaluation performed only if differential is requested. Performed By: #### 1 99026, 010093, 361871, 079075, 971929, 4773613 #### [facility] [address] [place] [address] Loom Overhauler: Duran Marcus MD WBC (Bld) [#/Vol] 10.2 x10 Normal 4.5-11.0 [facility] Comment on above: Performed By: #### 1 02718, 438409, 204862, 714695, 008113, 7541544 #### [facility] [address] [place] [address] Loom Overhauler: Duran Marcus MD WBC (Bld) [#/Vol] 10.2 10*3/uL Normal [facility] Comment on above: Performed By: #### 1 06360, 424419, 604797, 068757, 035748, 6477950 #### [facility] [address] [place] [address] Loom Overhauler: Duran Marcus MD PT INRon 11-30-2018 INR Coag (PPP) [Relative time] 1.0 {INR} Normal [facility] Comment on above: Result Comment: Norm al reference range for INR on patients not on anticoagulant therapy: 0.9-1.1. General therapeutic range for patients on anticoagulant therapy: 2.0-3.5. Performed By: #### 1 26494, 426787, 035444, 855828, 103025, 1189569 #### [facility] [address] [place] [address] Loom Overhauler: Duran Marcus MD Protime Patient 11.4 seconds Normal 9.7-12.7 [facility] Comment on above: Performed By: #### 1 43463, 037799, 983814, 557033, 043748, 4944626 #### [facility] [address] [place], [place] [address] Loom Overhauler: Duran Marcus MD TROPONINon 11-30-2018 Troponin I.cardiac [Mass/Vol] ng/mL Normal 0.000-0.09 9 [facility] Comment on above: Result Comment: This test is a quantitative determination of cardiac troponin I. High levels of serum biotin may interfere with this test. Performed By: #### 1 75666, 664608, 302842, 072137, 228456, 6160191 #### [facility] [address] [place] [address] Loom Overhauler: Duran Marcus MD XR CHEST PORTABLEon 12-01-19 [...] NEWSOME MD Signed Out: 11/30/18 18:49:50 Normal [facility] CASE MANAGEMon 06-09-2018 CASE MANAGEM HNO ID: [id number] thor: Isabelle (Rn) AREBN Mederoservice: (none)Author Type: Registered NurseType: Care Mgt Progress NoteFiled: 06/09/2018 2:35 PMNote Text:CARE MANAGEMENT DISCHARGE NOTESERVICE DATE: 06/09/2018SERVICE TIME: 2:30pm LOS: 1 dayAdmission Date: 06/07/2018DISCHARGE ARRANGEMENT (list agency and phone number)long term facility: Was an expedited discharge program used? NoProvider: Claudia TJQDEGAHN ASSESSMENT:Caregiver is ready, willing and able to meet the patient's needs asrecommended by the inter-professional team? YesPatient's transition needs and plan for meeting these needs: transfer toSNFDoes the patient have an acute stroke diagnosis, or has the patient had astroke during this admission? NoHANDOFF COMMUNICATION:summary of care, discharge instructions, nurse to nurse reportTRANSPORTATION ARRANGEMENTS:Mode of Transportation: AmbuletteTransportation Agency and Phone #: Cristobal Delgado [phone] .Date of Trip: 06/09/2018Type of Service: WheelchairIs Patient Medicaid Pending: NoDiscussion of financial coverage occurred with Patient .Mobile Device Developer Location: 06/09/2018Destination: [facility] Care Management Responsibility: NoneEstimated Charge: NAApproving Logistics Loss Prevention Manager: NAADDITIONAL CONTACT RESOURCES:Pt. will be discharged today. DC instructions faxed to cliff [facility] prepared for transfer. Pt. is aware that transport time will beat 6pm by wheelchair.SIGNATURE: Isabelle Mederos RN PATIENT NAME: Natalie NietoiDATE: June 09, 2018 : 2:31 PM PAGER/CONTACT #: Isabelle Mederos [phone] [facility] Protein mass conc HNO ID: [id number] thor: Isabelle ClearyRn) ARBEN Mederoservice: (none)Author Type: Registered NurseType: Care Mgt Progress NoteFiled: 06/09/2018 12:00 PMNote Text:CARE MANAGEMENT PROGRESS NOTESERVICE DATE: 06/09/2018SERVICE TIME: 12noon LOS: 1 dayPrecert pending for transfer to [facility].SIGNATURE: Isabelle Mederos RN PATIENT NAME: Natalie NietoiDATE: June 09, 2018 : 12:00 PM PAGER/CONTACT #: Isabelle Mederos [phone] [facility] CONSULT PROGon 06-09-2018 Protein mass conc HNO ID: [id number] thor: Lisbet Lockwood) DonnieService: General SurgeryAuthor Type: [...] consult. Will discuss withDr Hernandez.Lisbet Fields, MSN, [facility] HospitalPhone: [phone]/192:10 PM [facility] NURSING PROGon 06-09-2018 Protein mass conc HNO ID: [id number] thor: Maribell ClearyRn) Markus, RNService: (none)Author Type: Registered NurseType: Nursing Progress NoteFiled: 06/09/2018 6:20 PMNote Text: Nursing Progress NotePatient Name: Natalie Del ValleRN: [id number] Location: [address]/[id number]____ Daily Note:Patient discharged to [facility], transported by Kris in stable condition. All personal belongings sent. Report calledto Jesi at facility.This note was completed by: Maribell Aparicio RN [facility] PROGRESSon 06-09-2018 Protein mass conc HNO ID: [id number] thor: Jt Pearsone: General Internal MedicineAuthor Type: PhysicianType: Progress NotesFiled: 06/09/2018 8:01 AMNote Text:PROGRESS NOTE - INTERNAL MEDICINEPATIENT NAME: Natalie Del ValleRN: [id number] DATE: 06/09/2018SERVICE TIME: 7:55 AMADMITTING PHYSICIAN: Jt ClearyINTERLIZA HISTORY OF PRESENT ILLNESS: NO NEW CO.PHYSICAL EXAM:Patient Vitals for the past 24 hrs: BP Temp Temp src Pulse Resp SpO2 Eqdlss40/08/19 0721 125/57 36.5 ?C (97.7 ?F) Oral [...] CLYDE TaborATE: June 09, 2018TIME: 7:55 AM [facility] CASE MANAGEMon 06-08-2018 Protein mass conc HNO ID: [id number] thor: ARBEN Campbell Rnervice: (none)Author Type: Registered NurseType: Alcon Mgt Progress NoteFiled: 06/08/2018 2:58 PMNote Text:CARE MANAGEMENT PROGRESS NOTESERVICE DATE: 06/08/2018SERVICE TIME: 2:45pm LOS: 1 dayObservation letter given to pt. on 06/08/18Informed pt. that Claudia can accept and they will start precertSIGNATURE: Isabelle Mederos RN PATIENT NAME: Natalie Tate: June 08, 2018 : 2:53 PM PAGER/CONTACT #: Isabelle Mederos [phone] [facility] Protein mass conc HNO ID: [id number] thor: Kathy Campbell Rnice: (none)Author Type: Registered NurseType: Alcon Mgt Progress NoteFiled: 06/08/2018 10:10 AMNote Text:CARE MANAGEMENT PROGRESS NOTESERVICE DATE: 06/08/2018SERVICE TIME: 10:00am LOS: 1 dayUnable to complete assessment, PT working with pt.SIGNATURE: Isabelle Mederos RN PATIENT NAME: Natalie Tate: June 08, 2018 : 10:09 AM PAGER/CONTACT #: Isabelle Mederos, [phone] [facility] CASE MGT INIT Eugenia 2018 CASE MGT INIT MIKAELA HNO ID: [id number] thor: Isabelle (Rn) Rosa M, RNService: (none)Author Type: Registered NurseType: Care Mgt Initial AssessmentFiled: 06/08/2018 1:24 PMNote Text:CARE MANAGEMENT: ASSESSMENT AND DISCHARGE PLANSERVICE DATE: 06/08/2018SERVICE TIME: 10:00amPRIABRAZO WEST CAMPUSY CARE PHYSICIAN:JACKIE Johnstonhone: [phone] STATUS: ObservationMEDICAL:Patient/R epresentative Stated Goals:To improve my functional statusHealth Insurance: [facility] MEDICAIDCaresourceHeal Issues Impacting Discharge Plan: Chronic morbid obesity, sciatica,CVA, PE, DVT, CAD, IL, depressionLast Admission Date: Previous admit date: 11/24/2013Is this Within the Past 30 days? No and Last admit 04/22/18Advance Directive:Current Advance Directive: NoneCare Logistics Loss Prevention Manager Attempted to Assist with AD Completion: YesAction: [...] StraightTub bench/chairHas the Patient Been in a Assisted Facility in the Past 30 days?was discharged from [facility] approximately 4 weeks agoSOCIAL:Living Arrangement: HomeLives With: AloneFinancial Resources: RetiredPrimary Contact: Extended Emergency Contact InformationPrimary Emergency Contact: Xena Gerber Thlvigjb: SpouseSupportive: is a resident at [facility] Important Patient Contacts: NoneCaregiver Assessment:Caregiver is ready, [...] - 0I feel financially burdened by my bwy-kd-bbuhpt expenses for myprescription medication: Disagree completely - [...] Pt.is agreeable to SNF placement. He states [facility] can not accept himdue to his insurance. List provided to pt. [facility] and [facility]. Referrals sent. HARVEY denis.SIGNATURE: Isabelle Mederos RN PATIENT NAME: Natalie Botello SucciDATE: June 08, 2018 : 1:18 PM PAGER/CONTACT #: Isabelle Mederos [phone] [facility] CONSULTon 06-08-2018 CONSULT HNO ID: [id number] thor: Gerry Morgan (Pa)ervice: Pain ManagementAuthor Type: Physician AssistantType: ConsultsFiled: 06/08/2018 5:30 PMNote Text:INPATIENT chronic PAIN MGMT consultPatient Name: Natalie NietoiMRN: [id number] DATE: June 08, 2018SERVICE TIME: 5:00 PMPRIMARY SERVICE: Dr. ClearyConrl by Dr. Cleary for intractable back painINTERVAL HPI: Is the patient having any pain? Yes LOCATION: lumbarPAIN SCALE: 5 on a scale of 0-10PAIN CHARACTER: achingFREQUENCY: (How often does the pain occur?) occurs [id number] WM morbid obese cc low back pain [...] KASIA CalixCDATE: June 08, 2018TIME: 5:00 PM [facility] PROGRESSon 06-08-2018 Protein mass conc HNO ID: [id number] Author: Lisbet Fields Service: General Internal Medicine Author Type: Nurse Practitioner Type: Progress Notes Filed: 06/10/2018 5:15 PM Note Text: [facility] Protein mass conc HNO ID: [id number] thor: Jt Pearsone: General Internal MedicineAuthor Type: PhysicianType: Progress NotesFiled: 06/08/2018 7:27 AMNote Text:PROGRESS NOTE - INTERNAL MEDICINEPATIENT NAME: Natalie Del ValleRN: [id number] DATE: 06/08/2018SERVICE TIME: 7:26 AMADMITTING PHYSICIAN: Jt ClearyINTERLIZA HISTORY OF PRESENT ILLNESS: CANNOT WALK.LBP.PHYSICAL EXAM:Patient Vitals for the past 24 hrs: BP Temp Temp src Pulse Resp SpO2 Height Thkrwp23/07/19 0600 - - - - - - [...] OBESITY/HTN/DIFFICULTY WALKING.PT.PAINCONTROL.INCRE ASE BB.SIGNATURE: Jt Cleary MDDATE: June 08, 2018TIME: 7:26 AM [facility] THERAPY NTon 06-08-2018 THERAPY NT HNO ID: [id number] thor: Maryana (Pt) Emersone: Physical TherapyAuthor Type: Physical TherapistType: Therapy (PT/OT/Speech/Resp)Filed: 06/08/2018 10:36 AMNote Text:Physical Therapy EvaluationSERVICE DATE: 06/08/2018SERVICE TIME: 1000 to 1020ROOM: [id number] Discharge Disposition: Subacute/SNFJustification For Post Acute Needs: [...] is better controlled (pain management consult placed) Naresh not anticipate the need for skilled care. [...] INTERVENTIONS:Therapy Diagnosis: Ataxic gaitInterventions Provided: Evaluation$ Evaluation-Moderate (73350) Billed Units: 1 unitTotal Treatment Time (minutes): [...] L SEAMUS, AVN of R hip, CHF, CAD,IL, obesity, HTN, back sxPatient Report: "I had one back surgery and I don't want another. Thefirst one didn't work."Home EnvironmentPatient Lives With: Self/AloneAssistance Available: NoneEntry To Home: Stairs;With RailNumber Of Stairs Into Home: 7Number Of Stairs To Bed/Bath: FlightStairs to Bed/Bath with: Unilateral RailTub/Shower Type: Tub showerLaundry: Goes to laVirtua Marl[facility] Owned: Cane;Sock Aide;Shower ChairPrior Functional Level: Within [...] details for this therapy evaluation/treatment.SIGNATU RE: Maryana Wooten, PT PATIENT NAME: Natalie NietoiDATE: June 08, 2018 : 10:31 AM Normal [facility] CBC and Differentialon 06-07 Abs Baso <0.03 Normal <0.11 [facility] Comment on above: Performed By: #### C BCDIF, CMP, MG1 ####[place] [phone] Abs Dane 0.18 k/uL Normal <0.87 [facility] Comment on above: Performed By: #### C BCDIF, CMP, MG1 ####[place] [id number] Abs Neut 8.80 k/uL High 1.45-7.50 [facility] Comment on above: Performed By: #### C BCDIF, CMP, MG1 ####[place] [address]-363-2018 Basophils/100 WBC Auto (Bld) 0.1 % [facility] Comment on above: Performed By: #### C BCDIF, CMP, MG1 ####[place] [address]-363-2018 Eosinophils Auto #/vol (Bld) 10*3/uL Normal <0.46 [facility] Comment on above: Performed By: #### C BCDIF, CMP, MG1 ####[place] [id number] Eosinophils/100 WBC Auto (Bld) 0.0 % [facility] Comment on above: Performed By: #### C BCDIF, CMP, MG1 ####[address] [phone] Erythrocyte distribution width Auto Ratio (RBC) 14.4 % Normal 11.5-15.0 [facility] Comment on above: Performed By: #### C BCDIF, CMP, MG1 ####[place] [id number] Hematocrit Auto Volume Fraction (Bld) 37.9 % Low 39.0-51.0 [facility] Comment on above: Performed By: #### C BCDIF, CMP, MG1 ####[place] [id number] Hemoglobin mass conc (Bld) 12.1 g/dL Low 13.0-17.0 [facility] Comment on above: Performed By: #### C BCDIF, CMP, MG1 ####[place] [id number] Lymphocytes Auto #/vol (Bld) 0.73 10*3/uL Low 1.00-4.00 [facility] Comment on above: Performed By: #### C BCDIF, CMP, MG1 ####[place] [id number] Lymphocytes/100 WBC Auto (Bld) 7.5 % Normal [facility] Comment on above: Performed By: #### C BCDIF, CMP, MG1 ####[place] [id number] MCH Auto Entitic mass (RBC) 28.2 pG Normal 26.0-34.0 [facility] Comment on above: Performed By: #### C BCDIF, CMP, MG1 ####[place] [id number] MCHC Auto mass conc (RBC) 31.9 g/dL Normal 30.5-36.0 [facility] Comment on above: Performed By: #### C BCDIF, CMP, MG1 ####[place] [id number] MCV Auto Entitic volume (RBC) 88.3 fL Normal 80.0-100.0 [facility] Comment on above: Performed By: #### C BCDIF, CMP, MG1 ####[place] [id number] Monocytes/100 WBC Auto (Bld) 1.9 % Normal [facility] Comment on above: Performed By: #### C BCDIF, CMP, MG1 ####[place] [id number] Neutrophils/100 WBC Auto (Bld) 90.5 % Normal [facility] Comment on above: Performed By: #### C BCDIF, CMP, MG1 ####[place] [id number] NRBCs 0.0 /100 WBC Normal 0 [facility] Comment on above: Performed By: #### C BCDIF, CMP, MG1 ####[place] [id number] Platelet mean volume Auto Entitic volume (Bld) 9.8 fL Normal 9.0-12.7 [facility] Comment on above: Performed By: #### C BCDIF, CMP, MG1 ####[place] [id number] Platelets Auto #/vol (Bld) 326 10*3/uL Normal 150-400 [facility] Comment on above: Performed By: #### C BCDIF, CMP, MG1 ####[place] [id number] RBC Auto #/vol (Bld) 4.29 10*6/uL Normal 4.20-6.00 [facility] Comment on above: Performed By: #### C BCDIF, CMP, MG1 ####[place] [id number] WBC Auto #/vol (Bld) 9.72 10*3/uL Normal 3.70-11.00 [facility] Comment on above: Performed By: #### C BCDIF, CMP, MG1 ####[address] Comp Metabolic Panelon 06-07 Albumin mass conc 4.2 g/dL Normal 3.9-4.9 [facility] Comment on above: Performed By: #### C BCDIF, CMP, MG1 ####[place] [id number] ALP enzyme act/vol 177 U/L High 38-113 [facility] Comment on above: Performed By: #### C BCDIF, CMP, MG1 ####[place] [id number] ALT enzyme act/vol 9 U/L Low 10-54 [facility] Comment on above: Performed By: #### C BCDIF, CMP, MG1 ####[place] [id number] Anion gap 3 molar conc 18 mmol/L Normal 9-18 [facility] Comment on above: Performed By: #### C BCDIF, CMP, MG1 ####[address] AST enzyme act/vol 18 U/L Normal 14-40 [facility] Comment on above: Performed By: #### C BCDIF, CMP, MG1 ####[address] Bilirubin mass conc 0.5 mg/dL Normal 0.2-1.3 [facility] Comment on above: Performed By: #### C BCDIF, CMP, MG1 ####[address] Calcium mass conc 9.4 mg/dL Normal 8.5-10.2 [facility] Comment on above: Performed By: #### C BCDIF, CMP, MG1 ####[address] Chloride molar conc 99 mmol/L Normal 97-105 [facility] Comment on above: Performed By: #### C BCDIF, CMP, MG1 ####[address] CO2 molar conc 24 mmol/L Normal 22-30 [facility] Comment on above: Performed By: #### C BCDIF, CMP, MG1 ####[address] Creatinine mass conc 0.74 mg/dL Normal 0.73-1.22 [facility] Comment on above: Performed By: #### C BCDIF, CMP, MG1 ####[address] eGFR- Amer. >60 Normal >60 [facility] Comment on above: Performed By: #### C BCDIF, CMP, MG1 ####[address] [address] GFR/1.73 sq M predicted among non-blacks MDRD vol rate/area (S/P/Bld) mL/min/{1.73_m2} Normal >60 [facility] Comment on above: Result Comment: eGFR (Estimated [...] Performed By: #### C BCDIF, CMP, MG1 ####[address] Glucose mass conc 133 mg/dL High 74-99 [facility] Comment on above: Performed By: #### C BCDIF, CMP, MG1 ####[address] Potassium molar conc 4.6 mmol/L Normal 3.7-5.1 [facility] Comment on above: Performed By: #### C BCDIF, CMP, MG1 ####[facility] [place] [phone] Protein mass conc 8.0 g/dL Normal 6.3-8.0 [facility] Comment on above: Performed By: #### C BCDIF, CMP, MG1 ####[place] [id number] [place] [id number] Sodium molar conc 141 mmol/L Normal 136-144 [facility] Comment on above: Performed By: #### C BCDIF, CMP, MG1 ####[facility] [place] [id number] Urea nitrogen mass conc 18 mg/dL Normal 9-24 [facility] Comment on above: Performed By: #### C BCDIF, CMP, MG1 ####[place] [address] [id number] [place] [id number] ED NOTEon 06-07-2018 ED NOTE HNO ID: [id number] Author: Faith ClearyRn) PIA Rodriguez Service: (none) Author Type: Registered Nurse Type: ED Notes Filed: 06/07/2018 3:08 PM Note Text: Report called to 4D rn all questions answered., pt to be sent upstairs with medics and belongings. [facility] ED NOTE HNO ID: [id number] Author: Faith ClearyRn) PIA Rodriguez Service: (none) Author Type: Registered Nurse Type: ED Notes Filed: 06/07/2018 2:59 PM Note Text: Labs were drawn and sent. [facility] ED NOTE HNO ID: [id number] Author: Faith ClearyRn) PIA Rodriguez Service: (none) Author Type: Registered Nurse Type: ED Notes Filed: 06/07/2018 2:59 PM Note Text: Pt refused walker [facility] ED NOTE HNO ID: [id number] thor: Cecily ClearyRn) ARBEN Edmondervice: (none)Author Type: Registered NurseType: ED NotesFiled: 06/07/2018 2:01 PMNote Text:Patient attempted to ambulate with walker. Patient able to stand butstates that he cannot take any steps. Patient states "I don't want thepain to come back". PA notified. [facility] ED NOTE HNO ID: [id number] thor: Anastasiia (Rn) ARBEN Johnsonervice: Emergency MedicineAuthor Type: Registered NurseType: ED NotesFiled: 06/07/2018 1:17 PMNote Text: Pt educated on medication and medicated per MAR. No complaints at thistime. No distress noted, safety maintained. Will continue to monitor. [facility] ED NOTE HNO ID: [id number] thor: Anastasiia (Rn) ARBEN Johnsonervice: Emergency MedicineAuthor Type: Registered NurseType: ED NotesFiled: 06/07/2018 12:09 PMNote Text:Pt arrived via EMS after falling at [facility] and hurting his back. Stateshis leg gave out and now he has shooting pain down his leg. Reportsfalling on his side and then hitting his head after falling. Deniesheadache and head pain just reporting severe back pain. [facility] ED PROV NOTEon 06-07-2018 Protein mass conc HNO ID: [id number] thor: Maurilio Ramirezrvice: Emergency MedicineAuthor Type: PhysicianType: ED Provider NotesFiled: 06/08/2018 1:54 PMNote Text:ED Provider NotePatient Name: Natalie Del ValleRN: [id number] DATE: 06/07/18HistoryPatient presents with:Back [id number] white male that presents to the emergency room via [facility] for sciatic pain. The patient states that he has chronic left sciaticpain and that he was at [facility] today and his left leg Giving out [...] above.History provided by: Patient and EMS personnelLanguage etl programmer used: NoPAST MEDICAL HISTORYDiagnosis Date- Arthritis- Chronic [...] admitme, so I can go to the half-way for rehab."Clinical Impressions as of Jun 07 [...] is stable and improved.SIGNATURE: Dru Oneal (Tori) Qwpllkp55/06/19 1621Attending NoteI have personally performed a face to face assessment of the patient andhave reviewed the PA/PACKAGING ASSEMBLER note. My rubin findings include:History is [...] plans for PT evaluationand possible placement to jail facility in stable condition.Other additions or changes: NoneSignature: Oswaldo Rubio, DODate: 06/08/2018Time: 1:51 PMBenleland Rubio, DO06/08/18 1354 [facility] HISTORY PHYSICALon 9 HISTORY PHYSICAL HNO ID: [id number] thor: Sandhya ([facility]) CrossService: Critical CareAuthor Type: Nurse PractitionerType: HANDPFiled: 06/07/2018 5:05 PMNote Text:HISTORY AND PHYSICAL EXAMINATION *SERVICE DATE: 06/07/2018SERVICE TIME: 4:17 PMPRIMARY CARE PHYSICIAN: Boby Johnston COMPLAINT: S/p fall [...] possible SNFplacement. Patient to be admitted to [facility] under Dr. Cleary.PAST MEDICAL HISTORYDiagnosis Date- Arthritis- [...] Temp Temp src Pulse Resp SpO2 Height Inuqsm06/06/19 1501 120/67 36.8 ?C (98.2 ?F) Oral [...] unable to walk with walkerPlan:- admit to [facility]- lidoderm patch, tramadol, demerol for pain- consult to PT/OTHTN/ HLD/ hypothyroidism/ CHF/depression/ CAD- continue home medicationsMedication and Non-Pharmacologic VTE Prophylaxis/AnticoagulantsVT E Prophylaxis: VTE prophylaxis appropriateI personally spent 40 minutes directly supervising and providing Level 2Care exclusive of any other billable procedure.SIGNATURE: Sandhya Bashir APRN.JENNIFER PATIENT NAME: Natalie NietoiDATE: June 07, 2018 : 4:16 PM PAGER: Normal [facility] HISTORY PHYSICAL HNO ID: [id number] thor: Jt ClearySer: General Internal MedicineAuthor Type: PhysicianType: HANDPFiled: 06/07/2018 7:11 PMNote Text:[facility] - History and PhysicalNATALIE GERBER HDOB: 1960 AGE: 58 SEX: MMRN: [id number] CSN: [id number] SV: [facility] LOCATION: [id number] PHYSICIAN: Jt Cleary M.D.ADMIT DATE: 06/07/2018CHIEF COMPLAINT: [...] SURGICAL HISTORY: Morbid obesity, CVA, PE, DVT,CAD, [place], hypertension, hyperlipidemia, sleep apnea, depression,multilevel disk disease [...] because heis open to the idea.Jt Cleary M.D.[facility] CenterKD:[id number]: 06/07/2018 17:52:51T: 06/07/2018 18:22:10Job #: [id number] Normal [facility] Magnesiumon 06-07-2018 Magnesium mass conc 2.2 mg/dL Normal 1.7-2.3 [facility] Comment on above: Performed By: #### C BCDIF, CMP, MG1 ####[facility] [phone] NURSING PROGon 06-07-2018 Protein mass conc HNO ID: [id number] thor: Tierra (Rn) ARBEN Gabrielervice: (none)Author Type: Registered NurseType: Nursing Progress NoteFiled: 06/07/2018 11:05 PMNote Text: Nursing Progress NotePatient Name: Natalie Del ValleRN: [id number] Location: [place]/____ Daily Note:1923: Pt refused telemetry, stated he does not want a roommate." Pt. Refused SCD's.This note was completed by: Tierra Gabriel RN [facility] PROGRESSon 06-07-2018 Protein mass conc HNO ID: [id number] Author: Jt Cleary Service: General Internal Medicine Author Type: Physician Type: Progress Notes Filed: 06/07/2018 5:53 PM Note Text: [id number] [facility] SPINE LUMBAR WO CONTRASTon 0 06-07-2018 SPINE LUMBAR WO CONTRAST *FINAL Date of Service: 06/07/2018 02:09 Adm #: [id number] Reading Dr:SHANNAN HILL Signoff Dr: SHANNAN HILL [...] No acute fracture. Preliminary interpretation provided by [employer]. This report has been produced using speech [...] Physician: SHANNAN HILL M.D. Original Transcribed by/Date: [facility] Jun 07 2018 8:10A Original Electronically Signed by/Date: SHANNAN HILL M.D. Jun 07 2018 8:10A Addendum Interpreting Physician: Addendum Transcribed by/Date: NO ADDENDUM Addendum Electronically Signed by/Date: [facility] Urinalysis with Microscopico n 06-07-2018 Bacteria Present Critically abnormal 0 [facility] Comment on above: Performed By: #### U AWMIC ####[place] [phone] Bilirubin, Urine Small Critically abnormal Negative [facility] Comment on above: Result Comment: Sugg est correlation with clinical findings and serum bilirubin if clinically indicated. Performed By: #### U AWMIC ####[place] [phone] Cast SEE COMMENT Normal 0 [facility] Comment on above: Result Comment: 0 Performed By: #### U AWMIC ####[place] [phone] Clarity Clear Normal Clear [facility] Comment on above: Performed By: #### U AWMIC ####[place] [phone] Color Yellow Normal Yellow [facility] Comment on above: Performed By: #### U AWMIC ####[place] [phone] Glucose Ql (U) Negative Normal Negative [facility] Comment on above: Performed By: #### U AWMIC ####[place] [phone] Hemoglobin/Blood,Ur Negative Normal Negative [facility] Comment on above: Performed By: #### U AWMIC ####[place] [phone] INR Coag RelTime (Bld) 5-10 Critically abnormal 0-3 [facility] Comment on above: Performed By: #### U AWMIC ####[place] [phone] Ketones Ql (U) Trace Critically abnormal Negative [facility] Comment on above: Performed By: #### U AWMIC ####[place] [phone] Leukest Negative Normal Negative [facility] Comment on above: Performed By: #### U AWMIC ####[place] [phone] Mucus Many Normal [facility] Comment on above: Performed By: #### U AWMIC ####[place] [phone] Nitrites Negative Normal Negative [facility] Comment on above: Performed By: #### U AWMIC ####[place] [phone] pH 5.5 Normal 4.5-8.0 [facility] Comment on above: Performed By: #### U AWMIC ####[place] [phone] Protein, Urine Trace Critically abnormal Negative [facility] Comment on above: Performed By: #### U AWMIC ####[place] [phone] Specific [place], Ur >=1.030 Normal 1.005-1 .03 0 [facility] Comment on above: Performed By: #### U AWMIC ####[place] [phone] Urobilinogen 0.2 Normal 0.2-1.0 [facility] Comment on above: Performed By: #### U AWMIC ####[place] [phone] WBC 0-5 Normal 0-5 [facility] Comment on above: Performed By: #### U AWMIC ####[place] [phone] MRA HEAD WO CONTRASTon 05-18 MRA HEAD WO CONTRAST Patient 16DOB: 2Age: 58 yearsGender: MaleOrder Date: 05/16/2018 1:30 AMEXAM: MRA HEAD WO CONTRASTTECHNIQUE: MRA head without contrast. 211 images.INDICATION: Patient is a 58-year-old gentleman with history of CAD,hypertension, hyperlipidemia, STROKE COMPARISON: CTA head May 15, 2018FINDINGS: Superior cervical, petrous, cavernous, and supraclinoidsegments of internal carotid arteries are unremarkable. A1 and T3yrnjhdyx of anterior cerebral arteries and the anterior communicatingartery are unremarkable. M1 and M2 segments of middle cerebralarteries are unremarkable. Basilar artery, anterior inferior cerebellar arteries, superiorcerebellar arteries, and P1 and P2 segments of posterior cerebralarteries are unremarkable. No aneurysm, tight stenosis, or vascularmalformation.IMPRESS ION: 1. No aneurysm, tight stenosis, or vascular malformation.Interpreted by:KIKO Aponteigned by:Mireya Alex MD05/18/18inal result Normal [facility] MRI BRAIN WO CONTRASTon 05-02 MRI BRAIN WO CONTRAST Patient 1016DOB: 2Age: [...] right cerebellar hemisphere.Interpreted by:KIKO Aponteigned by:Mireya Alex MD05/18/18Final result Normal [facility] Basic Metabolic Panelon 05-02 Anion gap 3 molar conc 15 mmol/L Normal - [facility] Calcium mass conc 9.1 mg/dL Normal 8.6-10.2 [facility] Chloride molar conc 100 mmol/L Normal 98-107 [facility] CO2 molar conc 23 mmol/L Normal 22- [facility] Creatinine mass conc 0.7 mg/dL Normal 0.7-1.2 [facility] GFR/1.73 sq M predicted among blacks MDRD vol rate/area (S/P/Bld) mL/min/{1.73_m2} Normal [facility] GFR/1.73 sq M predicted among non-blacks MDRD vol rate/area (S/P/Bld) mL/min/{1.73_m2} Normal >=60 [facility] Comment on above: Result Comment: Manager Intensive Care Unit michelle Kidney Disease: less than 60 ml/min/1.73 sq.m. Kidney Failure: less than 15 ml/min/1.73 sq.m.Results valid for patients 18 years and older. Glucose mass conc 95 mg/dL Normal 74-99 [facility] Potassium molar conc 4.5 mmol/L Normal 3.5-5.0 [facility] Sodium molar conc 138 mmol/L Normal 132-146 [facility] Urea nitrogen mass conc 11 mg/dL Normal - [facility] Hgb A1Con 05-17-2018 Hemoglobin A1c/Hemoglobin.total mass fraction (Bld) 5.5 % Normal 4.0-5.6 [facility] Basic Metabolic Panelon 05-02 Anion gap 3 molar conc 12 mmol/L Normal - [facility] Calcium mass conc 9.0 mg/dL Normal 8.6-10.2 [facility] Chloride molar conc 101 mmol/L Normal 98-107 [facility] CO2 molar conc 24 mmol/L Normal 22-29 [facility] Creatinine mass conc 0.7 mg/dL Normal 0.7-1.2 [facility] GFR/1.73 sq M predicted among blacks MDRD vol rate/area (S/P/Bld) mL/min/{1.73_m2} Normal [facility] GFR/1.73 sq M predicted among non-blacks MDRD vol rate/area (S/P/Bld) mL/min/{1.73_m2} Normal >=60 [facility] Comment on above: Result Comment: Manager Intensive Care Unit michelle Kidney Disease: less than 60 ml/min/1.73 sq.m. Kidney Failure: less than 15 ml/min/1.73 sq.m.Results valid for patients 18 years and older. Glucose mass conc 129 mg/dL High 74-99 [facility] Potassium molar conc 4.1 mmol/L Normal 3.5-5.0 [facility] Sodium molar conc 137 mmol/L Normal 132-146 [facility] Urea nitrogen mass conc 10 mg/dL Normal 6-20 [facility] CBC With Platelet and Differ entialon 05-16-2018 Abs Imm Granulocytes 0.04 E9/L Normal [facility] Basophils Auto #/vol (Bld) 0.04 E9/L Normal 0.00-0.20 [facility] Basophils/100 WBC Auto (Bld) 0.5 % Normal 0.0-2.0 [facility] Eosinophils Auto #/vol (Bld) 0.13 E9/L Normal 0.05-0.50 [facility] Eosinophils/100 WBC Auto (Bld) 1.5 % Normal 0.0-6.0 [facility] Erythrocyte distribution width Auto Ratio (RBC) 14.6 fL Normal 11.5-15.0 [facility] Hematocrit Auto Volume Fraction (Bld) 38.9 % Normal 37.0-54.0 [facility] Hemoglobin mass conc (Bld) 11.8 g/dL Low 12.5-16.5 [facility] Imm Granulocytes 0.5 % Normal 0.0-5.0 [facility] Lymphocytes Auto #/vol (Bld) 1.68 E9/L Normal 1.50-4.00 [facility] Lymphocytes/100 WBC Auto (Bld) 19.1 % Low 20.0-42.0 [facility] MCH Auto Entitic mass (RBC) 28.1 pg Normal 26.0-35.0 [facility] MCHC Auto mass conc (RBC) 30.3 % Low 32.0-34.5 [facility] MCV Auto Entitic volume (RBC) 92.6 fL Normal 80.0-99.9 [facility] Monocytes Auto #/vol (Bld) 0.41 E9/L Normal 0.10-0.95 [facility] Monocytes/100 WBC Auto (Bld) 4.7 % Normal 2.0-12.0 [facility] Neutrophils Auto #/vol (Bld) 6.50 E9/L Normal 1.80-7.30 [facility] Neutrophils/100 WBC Auto (Bld) 73.7 % Normal 43.0-80.0 [facility] Platelet mean volume Auto Entitic volume (Bld) 10.2 fL Normal 7.0-12.0 [facility] Platelets Auto #/vol (Bld) 216 E9/L Normal 130-450 [facility] RBC Auto #/vol (Bld) 4.20 E12/L Normal 3.80-5.80 [facility] WBC Auto #/vol (Bld) 8.8 E9/L Normal 4.5-11.5 [facility] Lipid Panelon 05-16-2018 Cholesterol in HDL mass conc 38 mg/dL Normal >40 [facility] Cholesterol in LDL mass conc 53 mg/dL Normal 0-99 [facility] Cholesterol mass conc 115 mg/dL Normal 0-199 [facility] Triglyceride mass conc 122 mg/dL Normal 0-149 [facility] VLDL Cholesterol (Calculated) 24 mg/dL Normal [facility] Urinalysis, with microscopic on 05-16-2018 Bacteria LM.HPF #/area (Urine sed) NONE Normal [facility] RBC Test strip #/vol (U) NONE Normal 0-2 [facility] WBC #/vol (U) NONE Normal 0-5 [facility] Bilirubin Ql (U) Negative Normal Negative [facility] Clarity Nom (U) Clear Normal Clear [facility] Color Nom (U) Yellow Normal Straw/Trimble ow [facility] Glucose Ql (U) Negative Normal Negative [facility] Hemoglobin Test strip Ql (U) Negative Normal Negative [facility] Ketones Ql (U) Negative Normal Negative [facility] Leukocyte esterase Test strip Ql (U) Negative Normal Negative [facility] Nitrite Test strip Ql (U) Negative Normal Negative [facility] pH Test strip (U) 6.0 [pH] Normal 5.0-9.0 [facility] Protein Test strip Ql (U) Negative Normal Negative [facility] Specific gravity Relative Density (U) 1.015 Normal 1.005-1.03 0 [facility] Urobilinogen Test strip Qn (U) 0.2 {Kalee'U}/dL Normal < 2.0 [facility] CBC With Platelet No Aditya greene 05-15-2018 Erythrocyte distribution width Auto Ratio (RBC) 14.5 fL Normal 11.5-15.0 [facility] Hematocrit Auto Volume Fraction (Bld) 38.5 % Normal 37.0-54.0 [facility] Hemoglobin mass conc (Bld) 11.8 g/dL Low 12.5-16.5 [facility] MCH Auto Entitic mass (RBC) 27.6 pg Normal 26.0-35.0 [facility] MCHC Auto mass conc (RBC) 30.6 % Low 32.0-34.5 [facility] MCV Auto Entitic volume (RBC) 90.0 fL Normal 80.0-99.9 [facility] Platelet mean volume Auto Entitic volume (Bld) 10.0 fL Normal 7.0-12.0 [facility] Platelets Auto #/vol (Bld) 262 E9/L Normal 130-450 [facility] RBC Auto #/vol (Bld) 4.28 E12/L Normal 3.80-5.80 [facility] WBC Auto #/vol (Bld) 12.4 E9/L High 4.5-11.[address] [facility] [address] BRAIN PERFUSIONon 018 CT BRAIN [...] by:KIKO Aponteigned by:Mireya Alex MD05/15/18inal result Normal [facility] CT HEAD WO CONTRASTon 2017 CT HEAD WO CONTRAST Patient 6DOB: 2Age: 58 yearsGender: MaleOrder [...] by:KIKO Aponteigned by:Mireya Alex MD05/15/18inal result Normal [facility] CTA HEAD W CONTRASTon 2017 CTA HEAD [...] this exam. This study was performed on [place] with dose reduction technique. Low-dose CT acquisitiontechnique included one of following options; 1 . Automated exposurecontrol, 2. Adjustment of MA and or KV according to patient's size or3. Use of iterative reconstruction.FINDINGS: Superior cervical, petrous, cavernous, and supraclinoidsegments of internal carotid arteries are unremarkable. A1 and F2fkacyysz of anterior cerebral arteries and the anterior [...] by:KIKO Aponteigned by:Mireya Alex MD05/15/18Final result Normal [facility] CTA NECK W CONTRASTon 2017 CTA NECK [...] by:KIKO Aponteigned by:Mireya Alex MD05/15/18Final result Normal [facility] Comprehensive Metabolic Pane [place] 05-15-2018 Albumin mass conc 3.9 g/dL Normal 3.5-5.2 [facility] ALP enzyme act/vol 170 U/L High 40-129 [facility] ALT enzyme act/vol 9 U/L Normal 0-40 [facility] Anion gap 3 molar conc 12 mmol/L Normal 7-16 [facility] AST enzyme act/vol 13 U/L Normal 0-39 [facility] Bilirubin mass conc 0.3 mg/dL Normal 0.0-1.2 [facility] Calcium mass conc 8.9 mg/dL Normal 8.6-10.2 [facility] Chloride molar conc 99 mmol/L Normal 98-107 [facility] CO2 molar conc 24 mmol/L Normal 22-29 [facility] Creatinine mass conc 0.7 mg/dL Normal 0.7-1.2 [facility] GFR/1.73 sq M predicted among blacks MDRD vol rate/area (S/P/Bld) mL/min/{1.73_m2} Normal [facility] GFR/1.73 sq M predicted among non-blacks MDRD vol rate/area (S/P/Bld) mL/min/{1.73_m2} Normal >=60 [facility] Comment on above: Result Comment: Manager Intensive Care Unit michelle Kidney Disease: less than 60 ml/min/1.73 sq.m. Kidney Failure: less than 15 ml/min/1.73 sq.m.Results valid for patients 18 years and older. Glucose mass conc 117 mg/dL High 74-99 [facility] Potassium molar conc 4.2 mmol/L Normal 3.5-5.0 [facility] Protein mass conc 7.2 g/dL Normal 6.4-8.3 [facility] Sodium molar conc 135 mmol/L Normal 132-146 [facility] Urea nitrogen mass conc 11 mg/dL Normal 6-20 [facility] METER GLUCOSEon 05-15-2018 Glucose mass conc 102 mg/dL High 74-99 [facility] Partial Thromboplastin Timeo n 05-15-2018 aPTT Coag time (Bld) 29.8 s Normal 24.5-35.1 [facility] Prothrombin Timeon 8 INR Coag RelTime (PPP) 0.9 {INR} Normal [facility] Prothrombin time (PT) Coag time (PPP) 10.9 s Normal 9.3-12.4 [facility] Troponinon 05-15-2018 Troponin I.cardiac mass conc ng/mL Normal 0.00-0.03 [facility] Comment on above: Result Comment: TROP ONIN T BLOOD LEVELS: 0.03 ng/mL Upper Reference Limit0.04 - 0.09 ng/mL Possible myocardial injury >= 0.10 ng/mL Myocardial injury XR CHEST PORTABLEon 05-15-20 XR CHEST PORTABLE EXAMINATION: CHEST RADIOGRAPH (SINGLE VIEW AP OR PA)Patient : 2Age: 58 yearsGender: MaleOrder Date: 05/15/2018 8:45 PMEXAM: XR CHEST PORTABLENUMBER OF IMAGES \\ views: 1INDICATION: stroke like symptoms stroke like symptomsCOMPARISON: 07/24/2014 RESULT: See IMPRESSION. IMPRESSION: Lines, tubes, and devices: None.Lungs and pleura: Bibasilar atelectasis. No consolidation. No lungmass. No pleural effusion. Cardiomediastinal silhouette: Unchanged cardiomediastinal silhouette.Other:Interpreted by:Michael Swanson, DOSigned by:Michael Swanson, DO05/15/18inal result Normal [facility] General Medical Progress Not clovis 03-04-2018 Protein mass conc [facility] Patient: NATALIE GERBER [address] [facility] MR#: [id number] [place], [place] [address] : 1960 Ord[place] Murray: Dept: PDOC [place] [facility] [id number] General Medical Progress Note Service Dt: 03/04/18 Report#: [id number] Adm Dt: 02/24/18 Dis Dt: General-Medical Progress [...] (Aspirin, "Baby" (Chewable)) 81 mg PO DAILY [facility] Last Admin: 03/04/18 08:44 Dose: 81 mg Carvedilol (Coreg) 6.25 mg PO DAILY [facility] Last Admin: 03/04/18 08:43 Dose: 6.25 mg Clopidogrel Bisulfate (Plavix) 75 mg PO DAILY [facility] Last Admin: 03/04/18 08:44 Dose: 75 mg Cyanocobalamin (Vitamin B-12) 1,000 mcg PO DAILY [facility] Last Admin: 03/04/18 08:45 Dose: 1,000 mcg Dextrose (Dextrose Syringe) 25 ml IV Q15M PRN PRN Reason: Hypoglycemia Dextrose (Dextrose Syringe) 50 ml IV Q15M PRN PRN Reason: Hypoglycemia Dextrose (Instant Glucose) 37.5 g PO Q15M PRN PRN Reason: Hypoglycemia Enoxaparin Sodium (Lovenox) 40 mg SC DAILY [facility] Last Admin: 10/03/18 08:45 Dose: 40 mg Furosemide (Lasix) 20 mg PO DAILY [facility] Last Admin: 03/04/18 08:45 Dose: 20 mg Gabapentin (Neurontin) 400 mg PO DAILY [facility] Last Admin: 03/04/18 08:49 Dose: 400 mg Glucagon (Glucagon) 1 mg IM Q15M PRN PRN Reason: Hypoglycemia Levothyroxine Sodium (Synthroid) 50 mcg PO QDSYNTH [facility] Last Admin: 03/04/18 05:27 Dose: 50 mcg Lisinopril (Zestril/Prinivil) 5 mg PO DAILY [facility] Last Admin: 03/04/18 08:44 Dose: 5 mg Melatonin (Melatonin) 3 mg PO QHS [facility] Last Admin: 03/03/18 21:30 Dose: 3 mg Metformin HCl (Glucophage Xr) 500 mg PO 0800,1700 [facility] Last Admin: 03/04/18 08:42 Dose: Not Given Methylphenidate HCl (Ritalin) 40 mg PO DAILY [facility] Last Admin: 03/04/18 08:43 Dose: 40 mg Nitroglycerin (Nitrostat) 400 mcg SL Q5M PRN PRN Reason: Chest Pain Ondansetron HCl (Zofran Odt) 4 mg PO Q6 PRN PRN Reason: Nausea/vomiting Oxycodone/Acetaminophen (Percocet) 2 tab PO Q6 PRN PRN Reason: Pain-moderate (4-6/10) Last Admin: 03/04/18 09:35 Dose: 2 tab Pantoprazole Sodium (Protonix) 40 mg PO DAILY [facility] Last Admin: 03/04/18 08:45 Dose: 40 mg Quetiapine Fumarate (Seroquel) 100 mg PO QHS [facility] Last Admin: 03/03/18 21:30 Dose: 100 mg Senna/Docusate Sodium (Senokot-S) 1 tab PO DAILY [facility] Last Admin: 03/04/18 08:45 Dose: 1 tab Simvastatin (Zocor) 40 mg PO QHS [facility] Last Admin: 03/03/18 21:30 Dose: 40 mg Vitamin D (Vitamin D) 2,000 units.intl PO DAILY [facility] Last Admin: 03/04/18 08:44 Dose: 2,000 units.intl [...] Diabetes mellitus type: type 2 Diabetes mellitus intermediate insulin use: without extermination inspector use (7) CHF exacerbation Status: Suspected Qualifiers: [...] discharge to home, f/u as outpt in [place], [place] - Patient Time (minutes) Time Spent w/Patient: 31 Normal [facility] Glucose, Point of Careon Glucose mass conc 113 mg/dL High 80-110 [facility] Comment on above: Performed By: #### C BC, BMP, TROP, BNP, TSH ####[facility] [place], [place] [id number] Glucose mass conc 113 mg/dL High 80-110 [facility] Comment on above: Performed By: #### C BC, BMP, TROP, BNP, TSH ####[facility] [place] [address] [id number] Orthopedic Progress Noteon 1 Protein mass conc [facility] Patient: NATALIE GERBER [address] [facility] MR#: [id number] [place], [place] [address] : 1960 Ord[address] Murray: Dept: PDOC Loc: [address] [place] [address] Orthopedic Progress Note Service Dt: 03/04/18 Report#: [id number] Adm Dt: 02/24/18 Dis Dt: Orthopedic Progress [...] (Aspirin, "Baby" (Chewable)) 81 mg PO DAILY [facility] Last Admin: 03/03/18 08:58 Dose: 81 mg Carvedilol (Coreg) 6.25 mg PO DAILY [facility] Last Admin: 03/03/18 08:58 Dose: 6.25 mg Clopidogrel Bisulfate (Plavix) 75 mg PO DAILY [facility] Last Admin: 03/03/18 08:55 Dose: 75 mg Cyanocobalamin (Vitamin B-12) 1,000 mcg PO DAILY [facility] Last Admin: 03/03/18 08:58 Dose: 1,000 mcg Dextrose (Dextrose Syringe) 25 ml IV Q15M PRN PRN Reason: Hypoglycemia Dextrose (Dextrose Syringe) 50 ml IV Q15M PRN PRN Reason: Hypoglycemia Dextrose (Instant Glucose) 37.5 g PO Q15M PRN PRN Reason: Hypoglycemia Enoxaparin Sodium (Lovenox) 40 mg SC DAILY [facility] Last Admin: 03/03/18 08:58 Dose: 40 mg Furosemide (Lasix) 20 mg PO DAILY [facility] Last Admin: 03/03/18 08:58 Dose: 20 mg Gabapentin (Neurontin) 400 mg PO DAILY [facility] Last Admin: 03/03/18 08:55 Dose: 400 mg Glucagon (Glucagon) 1 mg IM Q15M PRN PRN Reason: Hypoglycemia Levothyroxine Sodium (Synthroid) 50 mcg PO QDSYNTH [facility] Last Admin: 03/04/18 05:27 Dose: 50 mcg Lisinopril (Zestril/Prinivil) 5 mg PO DAILY [facility] Last Admin: 03/03/18 09:10 Dose: 5 mg Melatonin (Melatonin) 3 mg PO QHS [facility] Last Admin: 03/03/18 21:30 Dose: 3 mg Metformin HCl (Glucophage Xr) 500 mg PO 0800,1700 [facility] Last Admin: 03/03/18 16:38 Dose: Not Given Methylphenidate HCl (Ritalin) 40 mg PO DAILY [facility] Last Admin: 03/03/18 10:12 Dose: 40 mg Nitroglycerin (Nitrostat) 400 mcg SL Q5M PRN PRN Reason: Chest Pain Ondansetron HCl (Zofran Odt) 4 mg PO Q6 PRN PRN Reason: Nausea/vomiting Oxycodone/Acetaminophen (Percocet) 2 tab PO Q6 PRN PRN Reason: Pain-moderate (4-6/10) Last Admin: 03/04/18 03:24 Dose: 2 tab Pantoprazole Sodium (Protonix) 40 mg PO DAILY [facility] Last Admin: 03/03/18 08:55 Dose: 40 mg Quetiapine Fumarate (Seroquel) 100 mg PO QHS [facility] Last Admin: 03/03/18 21:30 Dose: 100 mg Senna/Docusate Sodium (Senokot-S) 1 tab PO DAILY [facility] Last Admin: 03/03/18 08:58 Dose: 1 tab Simvastatin (Zocor) 40 mg PO QHS [facility] Last Admin: 03/03/18 21:30 Dose: 40 mg Vitamin D (Vitamin D) 2,000 units.intl PO DAILY [facility] Last Admin: 03/03/18 08:56 Dose: 2,000 units.intl [...] as outpatient. Orthopedic follow-up as needed. Normal [facility] Arthrogram Shoulder Righton 03-03-2018 Arthrogram Shoulder Right [facility] Patient: NATALIE GERBER [address] [facility] MR#: [id number] [place], [place] [address] : [address] Thierno Borja MD Dept: Diagnostic Imaging [place] [facility] [place] REPORT Service Dt:03/03/18 Report#: [id number] Adm Dt: 02/24/18 Dis Dt: Comments: STUDY: CR Arthrogram Shoulder Right; 03/03/2018 3:10 pm INDICATION: rotator cuff tear;adhessive capsulitis/tendinitis. COMPARISON: None. ACCESSION NUMBER(S): [id number] ORDERING CLINICIAN: Thierno Borja TECHNIQUE: Right shoulder [...] by: Mely Chi 03/03/2018 4:02 PM Normal [facility] General Medical Progress Not clovis 03-03-2018 Protein mass conc [facility] Patient: NATALIE GERBER [address] [facility] MR#: [id number] [place], [place] [address] : 1960 Ord[address] Murray: Dept: PDOC Loc[place] [facility] [place]- General Medical Progress Note Service Dt: 03/03/18 Report#: [id number] Adm Dt: 02/24/18 Dis Dt: 03/04/18 General-Medical [...] (Aspirin, "Baby" (Chewable)) 81 mg PO DAILY [facility] Last Admin: 03/02/18 08:18 Dose: 81 mg Carvedilol (Coreg) 6.25 mg PO DAILY [facility] Last Admin: 03/02/18 08:18 Dose: 6.25 mg Clopidogrel Bisulfate (Plavix) 75 mg PO DAILY [facility] Last Admin: 03/02/18 08:18 Dose: 75 mg Cyanocobalamin (Vitamin B-12) 1,000 mcg PO DAILY [facility] Last Admin: 03/02/18 08:18 Dose: 1,000 mcg Dextrose (Dextrose Syringe) 25 ml IV Q15M PRN PRN Reason: Hypoglycemia Dextrose (Dextrose Syringe) 50 ml IV Q15M PRN PRN Reason: Hypoglycemia Dextrose (Instant Glucose) 37.5 g PO Q15M PRN PRN Reason: Hypoglycemia Enoxaparin Sodium (Lovenox) 40 mg SC DAILY [facility] Last Admin: 03/02/18 08:18 Dose: 40 mg Furosemide (Lasix) 20 mg PO DAILY [facility] Last Admin: 03/02/18 08:18 Dose: 20 mg Gabapentin (Neurontin) 400 mg PO DAILY [facility] Last Admin: 03/02/18 08:16 Dose: 400 mg Glucagon (Glucagon) 1 mg IM Q15M PRN PRN Reason: Hypoglycemia Levothyroxine Sodium (Synthroid) 50 mcg PO QDSYNTH [facility] Last Admin: 03/02/18 05:19 Dose: 50 mcg Lisinopril (Zestril/Prinivil) 5 mg PO DAILY [facility] Last Admin: 03/02/18 08:24 Dose: 5 mg Melatonin (Melatonin) 3 mg PO QHS [facility] Last Admin: 03/02/18 20:20 Dose: 3 mg Metformin HCl (Glucophage Xr) 500 mg PO 0800,1700 [facility] Last Admin: 03/02/18 17:15 Dose: Not Given Methylphenidate HCl (Ritalin) 40 mg PO DAILY [facility] Last Admin: 03/02/18 10:22 Dose: 40 mg Nitroglycerin (Nitrostat) 400 mcg SL Q5M PRN PRN Reason: Chest Pain Oxycodone/Acetaminophen (Percocet) 2 tab PO Q6 PRN PRN Reason: Pain-moderate (4-6/10) Last Admin: 03/03/18 02:25 Dose: 2 tab Pantoprazole Sodium (Protonix) 40 mg PO DAILY [facility] Last Admin: 03/02/18 08:18 Dose: 40 mg Quetiapine Fumarate (Seroquel) 100 mg PO QHS [facility] Last Admin: 03/02/18 20:20 Dose: 100 mg Senna/Docusate Sodium (Senokot-S) 1 tab PO DAILY [facility] Last Admin: 03/02/18 08:18 Dose: 1 tab Simvastatin (Zocor) 40 mg PO QHS [facility] Last Admin: 03/02/18 20:20 Dose: 40 mg Vitamin D (Vitamin D) 2,000 units.intl PO DAILY [facility] Last Admin: 03/02/18 08:18 Dose: 2,000 units.intl Allergies/Adv: Allergies Allergy/AdvReac Type Severity Reaction Status Date / Time ketorolac Allergy Severe Hives Verified 08/02/16 23:25 nalbuphine Allergy Severe Shortness Verified 08/02/16 23:25 of Breath nalbuphine HCl * Allergy Unknown Verified 10/08/16 21:16 [From Nubain] - Assessment/Plan (1) Shoulder pain, right Status: Acute (2) Diabetes Status: Chronic Qualifiers: Diabetes mellitus type: type 2 Diabetes mellitus extermination inspector insulin use: without intermediate use (3) Paresthesia and pain of left extremity Status: Acute - Comments Impression: 03/03/18 05:42 stable doing well MRI pending today further Tx per MRI results possible discharge see orders Normal [facility] Protein mass conc [facility] Patient: NATALIE GERBER [address] MR#: [id number] [place], [place] [address] : 1960 Ord[address] : Dept: PDOC Loc: 6ME 447-1 General Medical Progress Note Service Dt: 03/03/18 Report#: [id number] Adm Dt: 02/24/18 Dis Dt: General-Medical Progress [...] (Aspirin, "Baby" (Chewable)) 81 mg PO DAILY [facility] Last Admin: 03/02/18 08:18 Dose: 81 mg Carvedilol (Coreg) 6.25 mg PO DAILY [facility] Last Admin: 03/02/18 08:18 Dose: 6.25 mg Clopidogrel Bisulfate (Plavix) 75 mg PO DAILY [facility] Last Admin: 03/02/18 08:18 Dose: 75 mg Cyanocobalamin (Vitamin B-12) 1,000 mcg PO DAILY [facility] Last Admin: 03/02/18 08:18 Dose: 1,000 mcg Dextrose (Dextrose Syringe) 25 ml IV Q15M PRN PRN Reason: Hypoglycemia Dextrose (Dextrose Syringe) 50 ml IV Q15M PRN PRN Reason: Hypoglycemia Dextrose (Instant Glucose) 37.5 g PO Q15M PRN PRN Reason: Hypoglycemia Enoxaparin Sodium (Lovenox) 40 mg SC DAILY [facility] Last Admin: 03/02/18 08:18 Dose: 40 mg Furosemide (Lasix) 20 mg PO DAILY [facility] Last Admin: 03/02/18 08:18 Dose: 20 mg Gabapentin (Neurontin) 400 mg PO DAILY [facility] Last Admin: 03/02/18 08:16 Dose: 400 mg Glucagon (Glucagon) 1 mg IM Q15M PRN PRN Reason: Hypoglycemia Levothyroxine Sodium (Synthroid) 50 mcg PO QDSYNTH [facility] Last Admin: 03/02/18 05:19 Dose: 50 mcg Lisinopril (Zestril/Prinivil) 5 mg PO DAILY [facility] Last Admin: 03/02/18 08:24 Dose: 5 mg Melatonin (Melatonin) 3 mg PO QHS [facility] Last Admin: 03/02/18 20:20 Dose: 3 mg Metformin HCl (Glucophage Xr) 500 mg PO 0800,1700 [facility] Last Admin: 03/02/18 17:15 Dose: Not Given Methylphenidate HCl (Ritalin) 40 mg PO DAILY [facility] Last Admin: 03/02/18 10:22 Dose: 40 mg Nitroglycerin (Nitrostat) 400 mcg SL Q5M PRN PRN Reason: Chest Pain Oxycodone/Acetaminophen (Percocet) 2 tab PO Q6 PRN PRN Reason: Pain-moderate (4-6/10) Last Admin: 03/03/18 02:25 Dose: 2 tab Pantoprazole Sodium (Protonix) 40 mg PO DAILY [facility] Last Admin: 03/02/18 08:18 Dose: 40 mg Quetiapine Fumarate (Seroquel) 100 mg PO QHS [facility] Last Admin: 03/02/18 20:20 Dose: 100 mg Senna/Docusate Sodium (Senokot-S) 1 tab PO DAILY [facility] Last Admin: 03/02/18 08:18 Dose: 1 tab Simvastatin (Zocor) 40 mg PO QHS [facility] Last Admin: 03/02/18 20:20 Dose: 40 mg Vitamin D (Vitamin D) 2,000 units.intl PO DAILY [facility] Last Admin: 03/02/18 08:18 Dose: 2,000 units.intl Allergies/Adv: Allergies Allergy/AdvReac Type Severity Reaction Status Date / Time ketorolac Allergy Severe Hives Verified 08/02/16 23:25 nalbuphine Allergy Severe Shortness Verified 08/02/16 23:25 of Breath nalbuphine HCl * Allergy Unknown Verified 10/08/16 21:16 [From Nubain] - Assessment/Plan (1) Shoulder pain, right Status: Acute (2) Diabetes Status: Chronic Qualifiers: Diabetes mellitus type: type 2 Diabetes mellitus extermination inspector insulin use: without intermediate use (3) Paresthesia and pain of left extremity Status: Acute - Comments Impression: 03/03/18 05:42 stable doing well MRI pending today further Tx per MRI results possible discharge see orders Normal [facility] Glucose, Point of Careon Glucose mass conc 105 mg/dL Normal 80-110 [facility] Comment on above: Performed By: #### C BC, BMP, TROP, BNP, TSH ####[address] [id number] Glucose mass conc 93 mg/dL Normal 80-110 [facility] Comment on above: Performed By: #### C BC, BMP, TROP, BNP, TSH ####[address] [id number] Consultation Reporton 2017 Consultation Report [facility] Patient: NATALIE GERBER [address] [facility] MR#: [id number] [place], [place] [address] : 1960 Ord[address] Murray: Dept: PDOC [place] [facility] [place]-1 Consultation Service Dt: 03/02/18 Report#: [id number] Adm Dt: 02/24/18 Dis Dt: Initial Physician Consultation - Consultation Requesting Physician: Marisela Michel - PCP/Chief Complaint Primary Care Physician: Mraisela Michel Chief Complaint: LUE and facial numbness - Past Medical History Neurological: CVA/Stroke, TIA/Transient Ischemic Attack(s) Other Neurological Hx: TPA 3 TIMES ADMINISTERED ENT/Eye: Eye problem Other ENT/Eye Hx: wears glassess Cardiac: Angioplasty, Coronary Artery Disease/CAD, Cardiac Cath, CHF, Heart Attack ([place]), High Cholesterol, HTN Respiratory: Pulmonary Embolism/PE, Pneumonia [...] of Substances/Recreational Drugs: No Comment: Lives in [facility] with his . 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 - Family Health History [...] (Aspirin, "Baby" (Chewable)) 81 mg PO DAILY [facility] Last Admin: 03/02/18 08:18 Dose: 81 mg Carvedilol (Coreg) 6.25 mg PO DAILY [facility] Last Admin: 03/02/18 08:18 Dose: 6.25 mg Clopidogrel Bisulfate (Plavix) 75 mg PO DAILY [facility] Last Admin: 03/02/18 08:18 Dose: 75 mg Cyanocobalamin (Vitamin B-12) 1,000 mcg PO DAILY [facility] Last Admin: 03/02/18 08:18 Dose: 1,000 mcg Dextrose (Dextrose Syringe) 25 ml IV Q15M PRN PRN Reason: Hypoglycemia Dextrose (Dextrose Syringe) 50 ml IV Q15M PRN PRN Reason: Hypoglycemia Dextrose (Instant Glucose) 37.5 g PO Q15M PRN PRN Reason: Hypoglycemia Enoxaparin Sodium (Lovenox) 40 mg SC DAILY [facility] Last Admin: 03/02/18 08:18 Dose: 40 mg Furosemide (Lasix) 20 mg PO DAILY [facility] Last Admin: 03/02/18 08:18 Dose: 20 mg Gabapentin (Neurontin) 400 mg PO DAILY [facility] Last Admin: 03/02/18 08:16 Dose: 400 mg Glucagon (Glucagon) 1 mg IM Q15M PRN PRN Reason: Hypoglycemia Levothyroxine Sodium (Synthroid) 50 mcg PO QDSYNTH [facility] Last Admin: 03/02/18 05:19 Dose: 50 mcg Lisinopril (Zestril/Prinivil) 5 mg PO DAILY [facility] Last Admin: 03/02/18 08:24 Dose: 5 mg Melatonin (Melatonin) 3 mg PO QHS [facility] Last Admin: 03/01/18 21:09 Dose: 3 mg Metformin HCl (Glucophage Xr) 500 mg PO 0800,1700 [facility] Last Admin: 03/02/18 08:04 Dose: Not Given Methylphenidate HCl (Ritalin) 40 mg PO DAILY [facility] Last Admin: 03/02/18 10:22 Dose: 40 mg Nitroglycerin (Nitrostat) 400 mcg SL Q5M PRN PRN Reason: Chest Pain Oxycodone/Acetaminophen (Percocet) 2 tab PO Q6 PRN PRN Reason: Pain-moderate (4-6/10) Last Admin: 03/02/18 08:16 Dose: 2 tab Pantoprazole Sodium (Protonix) 40 mg PO DAILY [facility] Last Admin: 03/02/18 08:18 Dose: 40 mg Quetiapine Fumarate (Seroquel) 100 mg PO QHS [facility] Last Admin: 03/01/18 21:01 Dose: Not Given Senna/Docusate Sodium (Senokot-S) 1 tab PO DAILY [facility] Last Admin: 03/02/18 08:18 Dose: 1 tab Simvastatin (Zocor) 40 mg PO QHS [facility] Last Admin: 03/01/18 21:01 Dose: 40 mg Vitamin D (Vitamin D) 2,000 units.intl PO DAILY [facility] Last Admin: 03/02/18 08:18 Dose: 2,000 units.intl [...] surgeon. A neurosurgeon who saw him in [place] so that a CT scan presumably done [...] can be done at any time Normal [facility] General Medical Progress Not clovis 03-02-2018 Protein mass [facility] Patient: NATALIE GERBER [address] [facility] MR#: [id number] [place], [place] [address] : 1960 Ord[address] : Dept: PDOC [place] [facility] [place] 617-1 General Medical Progress Note Service Dt: 03/02/18 Report#: [id number] Adm Dt: 02/24/18 Dis Dt: General-Medical Progress [...] (Aspirin, "Baby" (Chewable)) 81 mg PO DAILY [facility] Last Admin: 03/02/18 08:18 Dose: 81 mg Carvedilol (Coreg) 6.25 mg PO DAILY [facility] Last Admin: 03/02/18 08:18 Dose: 6.25 mg Clopidogrel Bisulfate (Plavix) 75 mg PO DAILY [facility] Last Admin: 03/02/18 08:18 Dose: 75 mg Cyanocobalamin (Vitamin B-12) 1,000 mcg PO DAILY [facility] Last Admin: 03/02/18 08:18 Dose: 1,000 mcg Dextrose (Dextrose Syringe) 25 ml IV Q15M PRN PRN Reason: Hypoglycemia Dextrose (Dextrose Syringe) 50 ml IV Q15M PRN PRN Reason: Hypoglycemia Dextrose (Instant Glucose) 37.5 g PO Q15M PRN PRN Reason: Hypoglycemia Enoxaparin Sodium (Lovenox) 40 mg SC DAILY [facility] Last Admin: 03/02/18 08:18 Dose: 40 mg Furosemide (Lasix) 20 mg PO DAILY [facility] Last Admin: 03/02/18 08:18 Dose: 20 mg Gabapentin (Neurontin) 400 mg PO DAILY [facility] Last Admin: 03/02/18 08:16 Dose: 400 mg Glucagon (Glucagon) 1 mg IM Q15M PRN PRN Reason: Hypoglycemia Levothyroxine Sodium (Synthroid) 50 mcg PO QDSYNTH [facility] Last Admin: 03/02/18 05:19 Dose: 50 mcg Lisinopril (Zestril/Prinivil) 5 mg PO DAILY [facility] Last Admin: 03/02/18 08:24 Dose: 5 mg Melatonin (Melatonin) 3 mg PO QHS [facility] Last Admin: 03/01/18 21:09 Dose: 3 mg Metformin HCl (Glucophage Xr) 500 mg PO 0800,1700 [facility] Last Admin: 03/02/18 08:04 Dose: Not Given Methylphenidate HCl (Ritalin) 40 mg PO DAILY [facility] Last Admin: 03/01/18 07:57 Dose: 40 mg Nitroglycerin (Nitrostat) 400 mcg SL Q5M PRN PRN Reason: Chest Pain Oxycodone/Acetaminophen (Percocet) 2 tab PO Q6 PRN PRN Reason: Pain-moderate (4-6/10) Last Admin: 03/02/18 08:16 Dose: 2 tab Pantoprazole Sodium (Protonix) 40 mg PO DAILY [facility] Last Admin: 03/02/18 08:18 Dose: 40 mg Quetiapine Fumarate (Seroquel) 100 mg PO QHS [facility] Last Admin: 03/01/18 21:01 Dose: Not Given Senna/Docusate Sodium (Senokot-S) 1 tab PO DAILY [facility] Last Admin: 03/02/18 08:18 Dose: 1 tab Simvastatin (Zocor) 40 mg PO QHS [facility] Last Admin: 03/01/18 21:01 Dose: 40 mg Vitamin D (Vitamin D) 2,000 units.intl PO DAILY [facility] Last Admin: 03/02/18 08:18 Dose: 2,000 units.intl [...] Diabetes mellitus type: type 2 Diabetes mellitus extermination inspector insulin use: without extermination inspector use (7) CHF exacerbation Status: Suspected Qualifiers: [...] Time (minutes) Time Spent w/Patient: 31 Normal [facility] Glucose, Point of Careon Glucose mass conc 92 mg/dL Normal 80-110 [facility] Comment on above: Performed By: #### C BC, BMP, TROP, BNP, TSH ####[facility] [place], [place] [id number] Glucose mass conc 91 mg/dL Normal 80-110 [facility] Comment on above: Performed By: #### C BC, BMP, TROP, BNP, TSH ####[facility] [place], [place] [id number] Shoulder Right -Min 2 Viewso n 03-02-2018 Shoulder Right -Min 2 Views [facility] Patient: NATALIE GERBER MR#: [id number] [place], [place] [address] : [address] Marisela Michel MD Dept: Diagnostic Imaging Loc: [address] [place] [address]- DI REPORT Service Dt:03/02/18 Report#: [id number] Adm Dt: 02/24/18 Dis Dt: Comments: STUDY: CR Shoulder Right -Min 2 Views; 03/02/2018 10:45 am INDICATION: pain. COMPARISON: None. ACCESSION NUMBER(S): [id number] ORDERING CLINICIAN: Marisela Michel FINDINGS: There are [...] Miguel Angel Gray 03/02/2018 1:24 PM Normal [facility] Endocrinology Progress Noteo n 03-01-2018 Protein mass conc [facility] Patient: NATALIE GERBER MR#: [id number] [place], [place] [address] : 1960 Ord[address] : Dept: PDOC [place] [facility] [place]-1 Endocrinology Progress Note Service Dt: 03/01/18 Report#: [id number] Adm Dt: 02/24/18 Dis Dt: Endocrine Progress [...] (Aspirin, "Baby" (Chewable)) 81 mg PO DAILY [facility] Last Admin: 02/28/18 08:51 Dose: 81 mg Carvedilol (Coreg) 6.25 mg PO DAILY [facility] Last Admin: 02/28/18 08:31 Dose: Not Given Clopidogrel Bisulfate (Plavix) 75 mg PO DAILY [facility] Last Admin: 02/28/18 08:51 Dose: 75 mg Cyanocobalamin (Vitamin B-12) 1,000 mcg PO DAILY [facility] Last Admin: 02/28/18 08:51 Dose: 1,000 mcg Dextrose (Dextrose Syringe) 25 ml IV Q15M PRN PRN Reason: Hypoglycemia Dextrose (Dextrose Syringe) 50 ml IV Q15M PRN PRN Reason: Hypoglycemia Dextrose (Instant Glucose) 37.5 g PO Q15M PRN PRN Reason: Hypoglycemia Enoxaparin Sodium (Lovenox) 40 mg SC DAILY [facility] Last Admin: 02/28/18 08:49 Dose: 40 mg Furosemide (Lasix) 20 mg PO DAILY [facility] Last Admin: 02/28/18 08:50 Dose: 20 mg Gabapentin (Neurontin) 400 mg PO DAILY [facility] Last Admin: 02/28/18 08:51 Dose: 400 mg Glucagon (Glucagon) 1 mg IM Q15M PRN PRN Reason: Hypoglycemia Levothyroxine Sodium (Synthroid) 50 mcg PO QDSYNTH [facility] Last Admin: 03/01/18 05:22 Dose: 50 mcg Lisinopril (Zestril/Prinivil) 5 mg PO DAILY [facility] Last Admin: 02/28/18 08:32 Dose: Not Given Melatonin (Melatonin) 3 mg PO QHS [facility] Last Admin: 02/28/18 21:22 Dose: 3 mg Metformin HCl (Glucophage Xr) 500 mg PO 0800,1700 [facility] Last Admin: 02/28/18 15:06 Dose: Not Given Methylphenidate HCl (Ritalin) 40 mg PO DAILY [facility] Last Admin: 02/28/18 09:13 Dose: 40 mg Nitroglycerin (Nitrostat) 400 mcg SL Q5M PRN PRN Reason: Chest Pain Oxycodone/Acetaminophen (Percocet) 2 tab PO Q6 PRN PRN Reason: Pain-moderate (4-6/10) Last Admin: 03/01/18 05:22 Dose: 2 tab Pantoprazole Sodium (Protonix) 40 mg PO DAILY [facility] Last Admin: 02/28/18 08:50 Dose: 40 mg Quetiapine Fumarate (Seroquel) 100 mg PO QHS [facility] Last Admin: 02/28/18 21:22 Dose: 100 mg Senna/Docusate Sodium (Senokot-S) 1 tab PO DAILY [facility] Last Admin: 02/28/18 08:50 Dose: 1 tab Simvastatin (Zocor) 40 mg PO QHS [facility] Last Admin: 02/28/18 21:22 Dose: 40 mg Vitamin D (Vitamin D) 2,000 units.intl PO DAILY [facility] Last Admin: 02/28/18 08:50 Dose: 2,000 units.intl [...] him if he has diabetes possible new upv-pdlagpcods-rlcexuljmnvu of old cva. neurology service will be [...] BMI Insulin resistance. High normal C-peptide. Normal [facility] General Medical Progress Not clovis 03-01-2018 Protein mass conc [facility] Patient: NATALIE GERBER [address] [facility] MR#: [id number] [place], [place] [address] : 1960 Ord. : Dept: [place]OC [place] [facility] [place] General Medical Progress Note Service Dt: 03/01/18 Report#: [id number] Adm Dt: 02/24/18 Dis Dt: General-Medical Progress [...] mg Carvedilol (Coreg) 6.25 mg PO DAILY [facility] Last Admin: 02/28/18 08:31 Dose: Not Given Clopidogrel Bisulfate (Plavix) 75 mg PO DAILY [facility] Last Admin: 02/28/18 08:51 Dose: 75 mg Cyanocobalamin (Vitamin B-12) 1,000 mcg PO DAILY [facility] Last Admin: 02/28/18 08:51 Dose: 1,000 mcg Dextrose (Dextrose Syringe) 25 ml IV Q15M PRN PRN Reason: Hypoglycemia Dextrose (Dextrose Syringe) 50 ml IV Q15M PRN PRN Reason: Hypoglycemia Dextrose (Instant Glucose) 37.5 g PO Q15M PRN PRN Reason: Hypoglycemia Enoxaparin Sodium (Lovenox) 40 mg SC DAILY [facility] Last Admin: 02/28/18 08:49 Dose: 40 mg Furosemide (Lasix) 20 mg PO DAILY [facility] Last Admin: 02/28/18 08:50 Dose: 20 mg Gabapentin (Neurontin) 400 mg PO DAILY [facility] Last Admin: 02/28/18 08:51 Dose: 400 mg Glucagon (Glucagon) 1 mg IM Q15M PRN PRN Reason: Hypoglycemia Levothyroxine Sodium (Synthroid) 50 mcg PO QDSYNTH [facility] Last Admin: 03/01/18 05:22 Dose: 50 mcg Lisinopril (Zestril/Prinivil) 5 mg PO DAILY [facility] Last Admin: 02/28/18 08:32 Dose: Not Given Melatonin (Melatonin) 3 mg PO QHS [facility] Last Admin: 02/28/18 21:22 Dose: 3 mg Metformin HCl (Glucophage Xr) 500 mg PO 0800,1700 [facility] Last Admin: 02/28/18 15:06 Dose: Not Given Methylphenidate HCl (Ritalin) 40 mg PO DAILY [facility] Last Admin: 02/28/18 09:13 Dose: 40 mg Nitroglycerin (Nitrostat) 400 mcg SL Q5M PRN PRN Reason: Chest Pain Oxycodone/Acetaminophen (Percocet) 2 tab PO Q6 PRN PRN Reason: Pain-moderate (4-6/10) Last Admin: 03/01/18 05:22 Dose: 2 tab Pantoprazole Sodium (Protonix) 40 mg PO DAILY [facility] Last Admin: 02/28/18 08:50 Dose: 40 mg Quetiapine Fumarate (Seroquel) 100 mg PO QHS [facility] Last Admin: 02/28/18 21:22 Dose: 100 mg Senna/Docusate Sodium (Senokot-S) 1 tab PO DAILY [facility] Last Admin: 02/28/18 08:50 Dose: 1 tab Simvastatin (Zocor) 40 mg PO QHS [facility] Last Admin: 02/28/18 21:22 Dose: 40 mg Vitamin D (Vitamin D) 2,000 units.intl PO DAILY [facility] Last Admin: 02/28/18 08:50 Dose: 2,000 units.intl [...] Diabetes mellitus type: type 2 Diabetes mellitus extermination inspector insulin use: without extermination inspector use (7) CHF exacerbation Status: Suspected Qualifiers: [...] 03/01/18 07:57 Waiting for ecf approval Normal [facility] Glucose, Point of Careon Glucose mass conc 102 mg/dL Normal 80-110 [facility] Comment on above: Result Comment: RN/L PN NOTIFIED Performed By: #### C BC, BMP, TROP, BNP, TSH ####[address] [address] Glucose mass conc 96 mg/dL Normal 80-110 [facility] Comment on above: Performed By: #### C BC, BMP, TROP, BNP, TSH ####[address] [address] Glucose mass conc 82 mg/dL Normal 80-110 [facility] Comment on above: Performed By: #### C BC, BMP, TROP, BNP, TSH ####[facility] [place] [id number] Endocrinology Progress Noteo n 02-28-2018 Protein mass conc [facility] Patient: NATALIE GERBER [address] [facility] MR#: [id number] [place], [place] [address] : 1960 Ord[address]ilton Murray: Dept: PDOC [place] [facility] [place]- Endocrinology Progress Note Service Dt: 02/28/18 Report#: [id number] Adm Dt: 02/24/18 Dis Dt: Endocrine Progress [...] 36.4 C L 02/28/18 04:53 Pulse 74 09/29/18 04:53 Resp 16 02/28/18 04:53 BP 96/50 [...] (Aspirin, "Baby" (Chewable)) 81 mg PO DAILY [facility] Last Admin: 02/27/18 09:57 Dose: 81 mg Carvedilol (Coreg) 6.25 mg PO DAILY [facility] Last Admin: 02/27/18 12:28 Dose: Not Given Clopidogrel Bisulfate (Plavix) 75 mg PO DAILY [facility] Last Admin: 02/27/18 09:57 Dose: 75 mg Cyanocobalamin (Vitamin B-12) 1,000 mcg PO DAILY [facility] Last Admin: 02/27/18 09:57 Dose: 1,000 mcg Dextrose (Dextrose Syringe) 25 ml IV Q15M PRN PRN Reason: Hypoglycemia Dextrose (Dextrose Syringe) 50 ml IV Q15M PRN PRN Reason: Hypoglycemia Dextrose (Instant Glucose) 37.5 g PO Q15M PRN PRN Reason: Hypoglycemia Enoxaparin Sodium (Lovenox) 40 mg SC DAILY [facility] Last Admin: 02/27/18 09:55 Dose: 40 mg Furosemide (Lasix) 20 mg PO DAILY [facility] Last Admin: 02/27/18 09:57 Dose: 20 mg Gabapentin (Neurontin) 400 mg PO DAILY [facility] Last Admin: 02/27/18 09:55 Dose: 400 mg Glucagon (Glucagon) 1 mg IM Q15M PRN PRN Reason: Hypoglycemia Levothyroxine Sodium (Synthroid) 50 mcg PO QDSYNTH [facility] Last Admin: 02/28/18 04:50 Dose: 50 mcg Lisinopril (Zestril/Prinivil) 5 mg PO DAILY [facility] Last Admin: 02/27/18 12:28 Dose: Not Given Melatonin (Melatonin) 3 mg PO QHS [facility] Last Admin: 02/27/18 22:35 Dose: 3 mg Metformin HCl (Glucophage Xr) 500 mg PO 0800,1700 [facility] Last Admin: 02/27/18 16:32 Dose: Not Given Methylphenidate HCl (Ritalin) 40 mg PO DAILY [facility] Last Admin: 02/27/18 09:55 Dose: 40 mg Nitroglycerin (Nitrostat) 400 mcg SL Q5M PRN PRN Reason: Chest Pain Oxycodone/Acetaminophen (Percocet) 2 tab PO Q6 PRN PRN Reason: Pain-moderate (4-6/10) Last Admin: 02/28/18 04:49 Dose: 2 tab Pantoprazole Sodium (Protonix) 40 mg PO DAILY [facility] Last Admin: 02/27/18 09:56 Dose: 40 mg Quetiapine Fumarate (Seroquel) 100 mg PO QHS [facility] Last Admin: 02/27/18 22:36 Dose: 100 mg Senna/Docusate Sodium (Senokot-S) 1 tab PO DAILY [facility] Last Admin: 02/27/18 09:56 Dose: 1 tab Simvastatin (Zocor) 40 mg PO QHS [facility] Last Admin: 02/27/18 22:36 Dose: 40 mg Vitamin D (Vitamin D) 2,000 units.intl PO DAILY [facility] Last Admin: 02/27/18 09:57 Dose: 2,000 units.intl [...] him if he has diabetes possible new uwn-wfebqycvwc-hmewyfbyknke of old cva. neurology service will be [...] BMI Insulin resistance. High normal C-peptide. Normal [facility] General Medical Progress Not clovis 02-28-2018 Protein mass conc [facility] Patient: NATALIE GERBER [address] MR#: [id number] [place], [place] [address] : 1960 Ord. : Dept: PDOC Loc: [id number] General Medical Progress Note Service Dt: 02/28/18 Report#: [id number] Adm Dt: 02/24/18 Dis Dt: General-Medical Progress [...] (Aspirin, "Baby" (Chewable)) 81 mg PO DAILY [facility] Last Admin: 02/28/18 08:51 Dose: 81 mg Carvedilol (Coreg) 6.25 mg PO DAILY [facility] Last Admin: 02/28/18 08:31 Dose: Not Given Clopidogrel Bisulfate (Plavix) 75 mg PO DAILY [facility] Last Admin: 02/28/18 08:51 Dose: 75 mg Cyanocobalamin (Vitamin B-12) 1,000 mcg PO DAILY [facility] Last Admin: 02/28/18 08:51 Dose: 1,000 mcg Dextrose (Dextrose Syringe) 25 ml IV Q15M PRN PRN Reason: Hypoglycemia Dextrose (Dextrose Syringe) 50 ml IV Q15M PRN PRN Reason: Hypoglycemia Dextrose (Instant Glucose) 37.5 g PO Q15M PRN PRN Reason: Hypoglycemia Enoxaparin Sodium (Lovenox) 40 mg SC DAILY [facility] Last Admin: 02/28/18 08:49 Dose: 40 mg Furosemide (Lasix) 20 mg PO DAILY [facility] Last Admin: 02/28/18 08:50 Dose: 20 mg Gabapentin (Neurontin) 400 mg PO DAILY [facility] Last Admin: 02/28/18 08:51 Dose: 400 mg Glucagon (Glucagon) 1 mg IM Q15M PRN PRN Reason: Hypoglycemia Levothyroxine Sodium (Synthroid) 50 mcg PO QDSYNTH [facility] Last Admin: 02/28/18 04:50 Dose: 50 mcg Lisinopril (Zestril/Prinivil) 5 mg PO DAILY [facility] Last Admin: 02/28/18 08:32 Dose: Not Given Melatonin (Melatonin) 3 mg PO QHS [facility] Last Admin: 02/27/18 22:35 Dose: 3 mg Metformin HCl (Glucophage Xr) 500 mg PO 0800,1700 [facility] Last Admin: 02/28/18 08:51 Dose: Not Given Methylphenidate HCl (Ritalin) 40 mg PO DAILY [facility] Last Admin: 02/27/18 09:55 Dose: 40 mg Nitroglycerin (Nitrostat) 400 mcg SL Q5M PRN PRN Reason: Chest Pain Oxycodone/Acetaminophen (Percocet) 2 tab PO Q6 PRN PRN Reason: Pain-moderate (4-6/10) Last Admin: 02/28/18 04:49 Dose: 2 tab Pantoprazole Sodium (Protonix) 40 mg PO DAILY [facility] Last Admin: 02/28/18 08:50 Dose: 40 mg Quetiapine Fumarate (Seroquel) 100 mg PO QHS [facility] Last Admin: 02/27/18 22:36 Dose: 100 mg Senna/Docusate Sodium (Senokot-S) 1 tab PO DAILY [facility] Last Admin: 02/28/18 08:50 Dose: 1 tab Simvastatin (Zocor) 40 mg PO QHS [facility] Last Admin: 02/27/18 22:36 Dose: 40 mg Vitamin D (Vitamin D) 2,000 units.intl PO DAILY [facility] Last Admin: 02/28/18 08:50 Dose: 2,000 units.intl [...] Diabetes mellitus type: type 2 Diabetes mellitus extermination inspector insulin use: without intermediate use (7) CHF exacerbation Status: Suspected Qualifiers: [...] Time (minutes) Time Spent w/Patient: 31 Normal [facility] Glucose, Point of Careon Glucose mass conc 95 mg/dL Normal 80-110 [facility] Comment on above: Performed By: #### C BC, BMP, TROP, BNP, TSH ####[facility] [place] [address] Endocrinology Progress Noteo n 02-27-2018 Protein mass conc [facility] Patient: NATALIE GERBER [address] MR#: [id number] [place], [place] [address] : 1960 Ord. : Dept: PDOC [place] [facility] [place] Endocrinology Progress Note Service Dt: 02/27/18 Report#: [id number] Adm Dt: 02/24/18 Dis Dt: Endocrine Progress [...] mg Carvedilol (Coreg) 6.25 mg PO DAILY [facility] Last Admin: 02/26/18 09:08 Dose: 6.25 mg Clopidogrel Bisulfate (Plavix) 75 mg PO DAILY [facility] Last Admin: 02/26/18 09:09 Dose: 75 mg Cyanocobalamin (Vitamin B-12) 1,000 mcg PO DAILY [facility] Last Admin: 02/26/18 09:09 Dose: 1,000 mcg Dextrose (Dextrose Syringe) 25 ml IV Q15M PRN PRN Reason: Hypoglycemia Dextrose (Dextrose Syringe) 50 ml IV Q15M PRN PRN Reason: Hypoglycemia Dextrose (Instant Glucose) 37.5 g PO Q15M PRN PRN Reason: Hypoglycemia Enoxaparin Sodium (Lovenox) 40 mg SC DAILY [facility] Last Admin: 02/26/18 09:09 Dose: 40 mg Furosemide (Lasix) 20 mg PO DAILY [facility] Last Admin: 02/26/18 09:08 Dose: 20 mg Gabapentin (Neurontin) 400 mg PO DAILY [facility] Last Admin: 02/26/18 09:08 Dose: 400 mg Glucagon (Glucagon) 1 mg IM Q15M PRN PRN Reason: Hypoglycemia Levothyroxine Sodium (Synthroid) 50 mcg PO QDSYNTH [facility] Last Admin: 02/26/18 05:03 Dose: 50 mcg Lisinopril (Zestril/Prinivil) 5 mg PO DAILY [facility] Last Admin: 02/26/18 09:08 Dose: 5 mg Melatonin (Melatonin) 3 mg PO QHS [facility] Last Admin: 02/26/18 21:33 Dose: 3 mg Metformin HCl (Glucophage Xr) 500 mg PO 0800,1700 [facility] Last Admin: 02/26/18 17:21 Dose: 500 mg Methylphenidate HCl (Ritalin) 40 mg PO DAILY [facility] Last Admin: 02/26/18 09:08 Dose: 40 mg Nitroglycerin (Nitrostat) 400 mcg SL Q5M PRN PRN Reason: Chest Pain Oxycodone/Acetaminophen (Percocet) 2 tab PO Q6 PRN PRN Reason: Pain-moderate (4-6/10) Last Admin: 02/27/18 04:00 Dose: 2 tab Pantoprazole Sodium (Protonix) 40 mg PO DAILY [facility] Last Admin: 02/26/18 09:08 Dose: 40 mg Quetiapine Fumarate (Seroquel) 100 mg PO DAILY [facility] Last Admin: 02/26/18 09:09 Dose: 100 mg Senna/Docusate Sodium (Senokot-S) 1 tab PO DAILY [facility] Last Admin: 02/26/18 09:09 Dose: 1 tab Simvastatin (Zocor) 40 mg PO QHS [facility] Last Admin: 02/26/18 21:33 Dose: 40 mg Vitamin D (Vitamin D) 2,000 units.intl PO DAILY [facility] Last Admin: 02/26/18 09:09 Dose: 2,000 units.intl [...] him if he has diabetes possible new veu-xwrjlyqlbp-mhehycibggcs of old cva. neurology service will be [...] a diagnosis of insulin resistance-metabolic syndrome Normal [facility] General Medical Progress Not clovis 02-27-2018 Protein mass conc [facility] Patient: NATALIE GERBER [address] MR#: [id number] [place], [place] [address] : 1960 Ord. : Dept: PDOC Loc: [id number] [id number] General Medical Progress Note Service Dt: 02/27/18 Report#: [id number] Adm Dt: 02/24/18 Dis Dt: General-Medical Progress [...] (Aspirin, "Baby" (Chewable)) 81 mg PO DAILY [facility] Last Admin: 02/26/18 09:08 Dose: 81 mg Carvedilol (Coreg) 6.25 mg PO DAILY [facility] Last Admin: 02/26/18 09:08 Dose: 6.25 mg Clopidogrel Bisulfate (Plavix) 75 mg PO DAILY [facility] Last Admin: 02/26/18 09:09 Dose: 75 mg Cyanocobalamin (Vitamin B-12) 1,000 mcg PO DAILY [facility] Last Admin: 02/26/18 09:09 Dose: 1,000 mcg Dextrose (Dextrose Syringe) 25 ml IV Q15M PRN PRN Reason: Hypoglycemia Dextrose (Dextrose Syringe) 50 ml IV Q15M PRN PRN Reason: Hypoglycemia Dextrose (Instant Glucose) 37.5 g PO Q15M PRN PRN Reason: Hypoglycemia Enoxaparin Sodium (Lovenox) 40 mg SC DAILY [facility] Last Admin: 02/26/18 09:09 Dose: 40 mg Furosemide (Lasix) 20 mg PO DAILY [facility] Last Admin: 02/26/18 09:08 Dose: 20 mg Gabapentin (Neurontin) 400 mg PO DAILY [facility] Last Admin: 02/26/18 09:08 Dose: 400 mg Glucagon (Glucagon) 1 mg IM Q15M PRN PRN Reason: Hypoglycemia Levothyroxine Sodium (Synthroid) 50 mcg PO QDSYNTH [facility] Last Admin: 02/26/18 05:03 Dose: 50 mcg Lisinopril (Zestril/Prinivil) 5 mg PO DAILY [facility] Last Admin: 02/26/18 09:08 Dose: 5 mg Melatonin (Melatonin) 3 mg PO QHS [facility] Last Admin: 02/26/18 21:33 Dose: 3 mg Metformin HCl (Glucophage Xr) 500 mg PO 0800,1700 [facility] Last Admin: 02/26/18 17:21 Dose: 500 mg Methylphenidate HCl (Ritalin) 40 mg PO DAILY [facility] Last Admin: 02/26/18 09:08 Dose: 40 mg Nitroglycerin (Nitrostat) 400 mcg SL Q5M PRN PRN Reason: Chest Pain Oxycodone/Acetaminophen (Percocet) 2 tab PO Q6 PRN PRN Reason: Pain-moderate (4-6/10) Last Admin: 02/27/18 04:00 Dose: 2 tab Pantoprazole Sodium (Protonix) 40 mg PO DAILY [facility] Last Admin: 02/26/18 09:08 Dose: 40 mg Quetiapine Fumarate (Seroquel) 100 mg PO DAILY [facility] Last Admin: 02/26/18 09:09 Dose: 100 mg Senna/Docusate Sodium (Senokot-S) 1 tab PO DAILY [facility] Last Admin: 02/26/18 09:09 Dose: 1 tab Simvastatin (Zocor) 40 mg PO QHS [facility] Last Admin: 02/26/18 21:33 Dose: 40 mg Vitamin D (Vitamin D) 2,000 units.intl PO DAILY [facility] Last Admin: 02/26/18 09:09 Dose: 2,000 units.intl Allergies/Adv: Allergies Allergy/AdvReac Type Severity Reaction Status Date / Time ketorolac Allergy Severe Hives Verified 08/02/16 23:25 nalbuphine Allergy Severe Shortness Verified 08/02/16 23:25 of Breath nalbuphine HCl * Allergy Unknown Verified 10/08/16 21:16 [From Alirioin] - Assessment/Plan (1) Facial paresthesia Status: Acute (2) Arm paresthesia, left Status: Acute (3) DVT prophylaxis Status: Acute (4) Dyspnea Status: Acute (5) Morbid obesity Status: Acute (6) Diabetes Status: Chronic Qualifiers: Diabetes mellitus type: type 2 Diabetes mellitus extermination inspector insulin use: without extermination inspector use (7) CHF exacerbation Status: Suspected Qualifiers: [...] Time (minutes) Time Spent w/Patient: 31 Normal [facility] Glucose, Point of Careon Glucose mass conc 91 mg/dL Normal 80-110 [facility] Comment on above: Performed By: #### C BC, BMP, TROP, BNP, TSH ####[facility] [place] [address] C-Peptideon 02-26-2018 C-Peptide 4.8 ng/mL Normal 1.1-5.0 [facility] Comment on above: Result Comment: [facility] [facility] Site: [place] [address] [facility] [place] [address] Performed By: #### C BC, BMP, TROP, BNP, TSH ####[facility] [place] [address] Endocrinology Progress Noteo n 02-26-2018 Protein mass conc [facility] Patient: NATLAIE GERBER [address] [facility] MR#: [id number] [place], [place] [address] : 1960 Ord. : Dept: PDOC Loc: E [id number] Endocrinology Progress Note Service Dt: 02/26/18 Report#: [id number] Adm Dt: 02/24/18 Dis Dt: Endocrine Progress Note - Patient Visit Reason Visit Reason: PARESTHESIA, DYSPNEA - Chief Complaint Chief Complaint: LUE and facial numbness - Subjective Narrative HPI/ROS: Feels better. Has had no complaints today. - I O/Vital Signs I O/VS: Vital Signs Temp 36.0 C L 09/27/18 06:00 Pulse 75 02/26/18 06:00 Resp 18 [...] (Aspirin, "Baby" (Chewable)) 81 mg PO DAILY [facility] Last Admin: 02/25/18 10:39 Dose: 81 mg Carvedilol (Coreg) 6.25 mg PO DAILY [facility] Last Admin: 02/25/18 10:38 Dose: 6.25 mg Clopidogrel Bisulfate (Plavix) 75 mg PO DAILY [facility] Last Admin: 02/25/18 10:39 Dose: 75 mg Cyanocobalamin (Vitamin B-12) 1,000 mcg PO DAILY [facility] Last Admin: 02/25/18 10:38 Dose: 1,000 mcg Dextrose (Dextrose Syringe) 25 ml IV Q15M PRN PRN Reason: Hypoglycemia Dextrose (Dextrose Syringe) 50 ml IV Q15M PRN PRN Reason: Hypoglycemia Dextrose (Instant Glucose) 37.5 g PO Q15M PRN PRN Reason: Hypoglycemia Enoxaparin Sodium (Lovenox) 40 mg SC DAILY [facility] Last Admin: 02/25/18 10:39 Dose: 40 mg Furosemide (Lasix) 20 mg PO DAILY [facility] Last Admin: 02/25/18 10:38 Dose: 20 mg Gabapentin (Neurontin) 400 mg PO DAILY [facility] Last Admin: 02/25/18 10:45 Dose: 400 mg Glucagon (Glucagon) 1 mg IM Q15M PRN PRN Reason: Hypoglycemia Levothyroxine Sodium (Synthroid) 50 mcg PO QDSYNTH [facility] Last Admin: 02/26/18 05:03 Dose: 50 mcg Lisinopril (Zestril/Prinivil) 5 mg PO DAILY [facility] Last Admin: 02/25/18 10:39 Dose: 5 mg Melatonin (Melatonin) 3 mg PO QHS [facility] Last Admin: 02/25/18 21:26 Dose: Not Given Methylphenidate HCl (Ritalin) 40 mg PO DAILY [facility] Last Admin: 02/25/18 10:40 Dose: 40 mg Nitroglycerin (Nitrostat) 400 mcg SL Q5M PRN PRN Reason: Chest Pain Oxycodone/Acetaminophen (Percocet) 2 tab PO Q6 PRN PRN Reason: Pain-moderate (4-6/10) Last Admin: 02/26/18 03:27 Dose: 2 tab Pantoprazole Sodium (Protonix) 40 mg PO DAILY [facility] Last Admin: 02/25/18 10:39 Dose: 40 mg Quetiapine Fumarate (Seroquel) 100 mg PO DAILY [facility] Last Admin: 02/25/18 10:38 Dose: 100 mg Senna/Docusate Sodium (Senokot-S) 1 tab PO DAILY [facility] Last Admin: 02/25/18 10:38 Dose: 1 tab Simvastatin (Zocor) 40 mg PO QHS [facility] Last Admin: 02/25/18 21:29 Dose: 40 mg Vitamin D (Vitamin D) 2,000 units.intl PO DAILY [facility] Last Admin: 02/25/18 10:39 Dose: 2,000 units.intl [...] him if he has diabetes possible new wmm-ljshuskmuu-taabjaafcbgx of old cva. neurology service will be [...] of PPI. will monitor magnesium levels. Normal [facility] Neurology Progress Noteon Protein mass conc [facility] Patient: NATALIE GERBER [address] MR#: [id number] [place], [place] [address] : 1960 Ord[address] Murray: Dept: PDOC Loc: [id number] Neurology Progress Note Service Dt: 02/26/18 Report#: [id number] Adm Dt: 02/24/18 Dis Dt: Neurology Progress [...] (Aspirin, "Baby" (Chewable)) 81 mg PO DAILY [facility] Last Admin: 02/26/18 09:08 Dose: 81 mg Carvedilol (Coreg) 6.25 mg PO DAILY [facility] Last Admin: 02/26/18 09:08 Dose: 6.25 mg Clopidogrel Bisulfate (Plavix) 75 mg PO DAILY [facility] Last Admin: 02/26/18 09:09 Dose: 75 mg Cyanocobalamin (Vitamin B-12) 1,000 mcg PO DAILY [facility] Last Admin: 02/26/18 09:09 Dose: 1,000 mcg Dextrose (Dextrose Syringe) 25 ml IV Q15M PRN PRN Reason: Hypoglycemia Dextrose (Dextrose Syringe) 50 ml IV Q15M PRN PRN Reason: Hypoglycemia Dextrose (Instant Glucose) 37.5 g PO Q15M PRN PRN Reason: Hypoglycemia Enoxaparin Sodium (Lovenox) 40 mg SC DAILY [facility] Last Admin: 02/26/18 09:09 Dose: 40 mg Furosemide (Lasix) 20 mg PO DAILY [facility] Last Admin: 02/26/18 09:08 Dose: 20 mg Gabapentin (Neurontin) 400 mg PO DAILY [facility] Last Admin: 02/26/18 09:08 Dose: 400 mg Glucagon (Glucagon) 1 mg IM Q15M PRN PRN Reason: Hypoglycemia Levothyroxine Sodium (Synthroid) 50 mcg PO QDSYNTH [facility] Last Admin: 02/26/18 05:03 Dose: 50 mcg Lisinopril (Zestril/Prinivil) 5 mg PO DAILY [facility] Last Admin: 02/26/18 09:08 Dose: 5 mg Melatonin (Melatonin) 3 mg PO QHS [facility] Last Admin: 02/25/18 21:26 Dose: Not Given Metformin HCl (Glucophage Xr) 500 mg PO 0800,1700 [facility] Last Admin: 02/26/18 09:09 Dose: 500 mg Methylphenidate HCl (Ritalin) 40 mg PO DAILY [facility] Last Admin: 02/26/18 09:08 Dose: 40 mg Nitroglycerin (Nitrostat) 400 mcg SL Q5M PRN PRN Reason: Chest Pain Oxycodone/Acetaminophen (Percocet) 2 tab PO Q6 PRN PRN Reason: Pain-moderate (4-6/10) Last Admin: 02/26/18 15:30 Dose: 2 tab Pantoprazole Sodium (Protonix) 40 mg PO DAILY [facility] Last Admin: 02/26/18 09:08 Dose: 40 mg Quetiapine Fumarate (Seroquel) 100 mg PO DAILY [facility] Last Admin: 02/26/18 09:09 Dose: 100 mg Senna/Docusate Sodium (Senokot-S) 1 tab PO DAILY [facility] [facility] Last Admin: 02/26/18 09:09 Dose: 1 tab Simvastatin (Zocor) 40 mg PO QHS [facility] Last Admin: 02/25/18 21:29 Dose: 40 mg Vitamin D (Vitamin D) 2,000 units.intl PO DAILY [facility] Last Admin: 02/26/18 09:09 Dose: 2,000 units.intl [...] Time (minutes) Time Spent w/Patient: 30 Normal [facility] Albumin/Creatinine Ratio, Ur on 02-25-2018 Albumin/Creatinine Ratio 10.000 mg/g Normal [facility] Comment on above: Order Comment: Comme nt please do today Performed By: #### C BC, BMP, TROP, BNP, TSH ####[facility] [place] [address] Creatinine, Urine Random $ 48.8 mg/dL Normal [facility] Comment on above: Order Comment: Comme nt please do today Performed By: #### C BC, BMP, TROP, BNP, TSH ####[facility] [place] [address] [id number] Ur Microalbumin, Random < 5.0 Normal [facility] Comment on above: Order Comment: Comme nt please do today Performed By: #### C BC, BMP, TROP, BNP, TSH ####[facility] [place] [address] Carotid Duplex Scanon 2017 Carotid Duplex Scan [facility] , [address] [place] [address] and Vascular Lab Report Carotid Artery Duplex Ultrasound Patient Name: NATALIE GERBER Study Date: 02/25/2018 Reading Physician: ROSLYN Acuna D.O. MRN/PID: [id number] Referring Physician: JOSE Oakes Accession/Order#: [id number] PCP: Date of : 1960 CC Report to: Do Hernandez DO Gender: M Technologist: Joan Lam Admission Status: Inpatient Technologist 2: Facility Performed: [facility] Location Performed: [facility] Diagnosis/ICD: G45.9 - Transient cerebral ischemic attack, unspecified Indication: Hemiparesis, Hemiplegia Procedure/CPT: 35902 - Cerebrovacular Carotid Duplex scan complete Patient [...] 0.9 0.9 ROSLYN Acuna D.O. Final Normal [facility] Complete Blood Count w/diff $$on 02-25-2018 Basophils Auto #/vol (Bld) 0.0 10 /uL Low 0.04-0.9 [facility] Comment on above: Performed By: #### C BC, BMP, TROP, BNP, TSH ####[address] [address] Basophils/100 WBC Auto (Bld) 1 % Normal 0-1 [facility] Comment on above: Performed By: #### C BC, BMP, TROP, BNP, TSH ####[address] [address] Eosinophils Auto #/vol (Bld) 0.2 10 3/uL Normal 0.03-0.6 [facility] Comment on above: Performed By: #### C BC, BMP, TROP, BNP, TSH ####[address] [address] Eosinophils/100 WBC Auto (Bld) 2 % Normal 0-3 [facility] Comment on above: Performed By: #### C BC, BMP, TROP, BNP, TSH ####[address] [address] Erythrocyte distribution width Auto Ratio (RBC) 14.0 % Normal 11.5-14.5 [facility] Comment on above: Performed By: #### C BC, BMP, TROP, BNP, TSH ####[address] [address] Hematocrit Auto Volume Fraction (Bld) 33.9 % Low 39-50 [facility] Comment on above: Performed By: #### C BC, BMP, TROP, BNP, TSH ####[address] [address] Hemoglobin mass conc (Bld) 10.5 g/dL Low 13.0-17.3 [facility] Comment on above: Performed By: #### C BC, BMP, TROP, BNP, TSH ####[address] [address] Immature Gran# (Auto) 0.1 10 3/uL Normal [facility] Comment on above: Performed By: #### C BC, BMP, TROP, BNP, TSH ####[address] [address] Immature granulocytes #/vol (Bld) 0.9 % Normal 0.0-1.2 [facility] Comment on above: Performed By: #### C BC, BMP, TROP, BNP, TSH ####[address] [address] Lymphocytes Auto #/vol (Bld) 1.4 10 3/uL Normal 1-3.5 [facility] Comment on above: Performed By: #### C BC, BMP, TROP, BNP, TSH ####[address] [address] Lymphocytes/100 WBC Auto (Bld) 22 % Low 24-44 [facility] Comment on above: Performed By: #### C BC, BMP, TROP, BNP, TSH ####[address] [address] MCH Auto Entitic mass (RBC) 27.9 pg Normal 27-34 [facility] Comment on above: Performed By: #### C BC, BMP, TROP, BNP, TSH ####[address] [address] MCH Auto Entitic mass (RBC) 31.0 g/dL Low 33-37 [facility] Comment on above: Performed By: #### C BC, BMP, TROP, BNP, TSH ####[address] [address] MCV Auto Entitic volume (RBC) 89.9 fL Normal 80-100 [facility] Comment on above: Performed By: #### C BC, BMP, TROP, BNP, TSH ####[address] [address] Monocytes Auto #/vol (Bld) 0.4 10 3/uL Normal 0.04-0.9 [facility] Comment on above: Performed By: #### C BC, BMP, TROP, BNP, TSH ####[address] [address] Monocytes/100 WBC Auto (Bld) 7 % Normal 1-8 [facility] Comment on above: Performed By: #### C BC, BMP, TROP, BNP, TSH ####[address] [address] Neutrophils Auto #/vol (Bld) 4.3 10 3/uL Normal 1.8-7.0 [facility] Comment on above: Performed By: #### C BC, BMP, TROP, BNP, TSH ####[address] [address] Neutrophils/100 WBC Auto (Bld) 67 % Normal 42-76 [facility] Comment on above: Performed By: #### C BC, BMP, TROP, BNP, TSH ####[address] [address] Nucleated RBC/100 WBC Ratio (Bld) 0.0 % Normal 0.0-0.2 [facility] Comment on above: Performed By: #### C BC, BMP, TROP, BNP, TSH ####[address] [address] Platelet mean volume Auto Entitic volume (Bld) 9.6 fL Normal 7.4-10.4 [facility] Comment on above: Performed By: #### C BC, BMP, TROP, BNP, TSH ####[facility] [place] [address] Platelets Auto #/vol (Bld) 187 10 3/uL Normal 150-400 [facility] Comment on above: Performed By: #### C BC, BMP, TROP, BNP, TSH ####[address] [address] RBC Auto #/vol (Bld) 3.77 10 6/uL Low 4.5-6.0 [facility] Comment on above: Performed By: #### C BC, BMP, TROP, BNP, TSH ####[address] [address] WBC Auto #/vol (Bld) 6.4 10 3/uL Normal 4.0-11.0 [facility] Comment on above: Performed By: #### C BC, BMP, TROP, BNP, TSH ####[address] [address] Comprehensive Metabolic Pane [place] 02-25-2018 Albumin mass conc 3.3 g/dL Low 3.4-5.0 [facility] Comment on above: Performed By: #### C BC, BMP, TROP, BNP, TSH ####[address] [address] ALP enzyme act/vol 109 U/L Normal 33-120 [facility] Comment on above: Result Comment: Plea se note new reference range as of September. Performed By: #### C BC, BMP, TROP, BNP, TSH ####[address] [address] ALT enzyme act/vol 8 U/L Normal 4-52 [facility] Comment on above: Result Comment: Plea se note new reference range as of September. Performed By: #### C BC, BMP, TROP, BNP, TSH ####[address] [place] [address] Anion gap 3 molar conc 11.3 mmol/L Normal 10-20 [facility] Comment on above: Performed By: #### C BC, BMP, TROP, BNP, TSH ####[facility] [place] [address] AST enzyme act/vol 15 U/L Normal 9-39 [facility] Comment on above: Result Comment: Plea se note new reference range as of September. Performed By: #### C BC, BMP, TROP, BNP, TSH ####[address] [address] Bilirubin Ql (U) 0.4 mg/dL Normal 0.0-1.2 [facility] Comment on above: Performed By: #### C BC, BMP, TROP, BNP, TSH ####[address] [address] Calcium mass conc 8.6 mg/dL Normal 8.6-10.3 [facility] Comment on above: Result Comment: Plea se note new reference range as of September. Performed By: #### C BC, BMP, TROP, BNP, TSH ####[address] [address] Chloride molar conc 106 mmol/L Normal 98-107 [facility] Comment on above: Performed By: #### C BC, BMP, TROP, BNP, TSH ####[address] [address] CO2 molar conc 27 mmol/L Normal 21-32 [facility] Comment on above: Performed By: #### C BC, BMP, TROP, BNP, TSH ####[address] [address] Creatinine mass conc 0.62 mg/dL Normal 0.50-1.30 [facility] Comment on above: Result Comment: Plea se note new reference range as of September. Performed By: #### C BC, BMP, TROP, BNP, TSH ####[address] [address] Estimated Creatinine Clearance 91 mL/min Low 94-145 [facility] Comment on above: Performed By: #### C BC, BMP, TROP, BNP, TSH ####[address] [address] GFR () >60 Normal [facility] Comment on above: Performed By: #### C BC, BMP, TROP, BNP, TSH ####[address] [address] GFR (Non ) >60 Normal [facility] Comment on above: Result Comment: eGFR Units of measure: mL/min/1.73 m 2 Performed By: #### C BC, BMP, TROP, BNP, TSH ####[address] [address] Glucose mass conc 105 mg/dL High 74-99 [facility] Comment on above: Performed By: #### C BC, BMP, TROP, BNP, TSH ####[address] [address] Potassium molar conc 4.3 mmol/L Normal 3.5-5.3 [facility] Comment on above: Performed By: #### C BC, BMP, TROP, BNP, TSH ####[address] [address] Protein mass conc 5.8 g/dL Low 6.4-8.2 [facility] Comment on above: Performed By: #### C BC, BMP, TROP, BNP, TSH ####[address] [address] Sodium molar conc 140 mmol/L Normal 136-145 [facility] Comment on above: Performed By: #### C BC, BMP, TROP, BNP, TSH ####[facility] [place] [address] Urea nitrogen mass conc (Bld) 13 mg/dL Normal 6-23 [facility] Comment on above: Result Comment: Spring burns note new reference range as of September. Performed By: #### C BC, BMP, TROP, BNP, TSH ####[facility] [place] [address] Consultation Reporton 2017 Consultation Report [facility] Patient: NATALIE GERBER [address] [facility] MR#: [id number] [place], [place] [address] : 1960 [address]: Dept: PDOC Loc: 9W 934-1 Consultation Service Dt: 02/25/18 Report#: [id number] Adm Dt: 02/24/18 Dis Dt: Initial Physician [...] Artery Disease/CAD, Cardiac Cath, CHF, Heart Attack ([place]), High Cholesterol, HTN Respiratory: Pulmonary Embolism/PE, Pneumonia [...] of Substances/Recreational Drugs: No Comment: Lives in [facility] with his . 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 - Family Health History [...] (Aspirin, "Baby" (Chewable)) 81 mg PO DAILY [facility] Last Admin: 02/27/18 09:57 Dose: 81 mg Carvedilol (Coreg) 6.25 mg PO DAILY [facility] Last Admin: 02/27/18 12:28 Dose: Not Given Clopidogrel Bisulfate (Plavix) 75 mg PO DAILY [facility] Last Admin: 02/27/18 09:57 Dose: 75 mg Cyanocobalamin (Vitamin B-12) 1,000 mcg PO DAILY [facility] Last Admin: 02/27/18 09:57 Dose: 1,000 mcg Dextrose (Dextrose Syringe) 25 ml IV Q15M PRN PRN Reason: Hypoglycemia Dextrose (Dextrose Syringe) 50 ml IV Q15M PRN PRN Reason: Hypoglycemia Dextrose (Instant Glucose) 37.5 g PO Q15M PRN PRN Reason: Hypoglycemia Enoxaparin Sodium (Lovenox) 40 mg SC DAILY [facility] Last Admin: 02/27/18 09:55 Dose: 40 mg Furosemide (Lasix) 20 mg PO DAILY [facility] Last Admin: 02/27/18 09:57 Dose: 20 mg Gabapentin (Neurontin) 400 mg PO DAILY [facility] Last Admin: 02/27/18 09:55 Dose: 400 mg Glucagon (Glucagon) 1 mg IM Q15M PRN PRN Reason: Hypoglycemia Levothyroxine Sodium (Synthroid) 50 mcg PO QDSYNTH [facility] Last Admin: 02/27/18 09:57 Dose: 50 mcg Lisinopril (Zestril/Prinivil) 5 mg PO DAILY [facility] Last Admin: 02/27/18 12:28 Dose: Not Given Melatonin (Melatonin) 3 mg PO QHS [facility] Last Admin: 02/26/18 21:33 Dose: 3 mg Metformin HCl (Glucophage Xr) 500 mg PO 0800,1700 [facility] Last Admin: 02/27/18 09:57 Dose: Not Given Methylphenidate HCl (Ritalin) 40 mg PO DAILY [facility] Last Admin: 02/27/18 09:55 Dose: 40 mg Nitroglycerin (Nitrostat) 400 mcg SL Q5M PRN PRN Reason: Chest Pain Oxycodone/Acetaminophen (Percocet) 2 tab PO Q6 PRN PRN Reason: Pain-moderate (4-6/10) Last Admin: 02/27/18 10:00 Dose: 2 tab Pantoprazole Sodium (Protonix) 40 mg PO DAILY [facility] Last Admin: 02/27/18 09:56 Dose: 40 mg Quetiapine Fumarate (Seroquel) 100 mg PO DAILY [facility] Last Admin: 02/27/18 09:53 Dose: Not Given Senna/Docusate Sodium (Senokot-S) 1 tab PO DAILY [facility] Last Admin: 02/27/18 09:56 Dose: 1 tab Simvastatin (Zocor) 40 mg PO QHS [facility] Last Admin: 02/26/18 21:33 Dose: 40 mg Vitamin D (Vitamin D) 2,000 units.intl PO DAILY [facility] Last Admin: 02/27/18 09:57 Dose: 2,000 units.intl Current Medications Acetaminophen (Tylenol) 650 mg PO Q4 PRN PRN Reason: Pain (mild)/Temp above 38.3 C Alprazolam (Xanax) 0.25 mg PO TID PRN PRN Reason: Anxiety Last Admin: 02/24/18 21:01 Dose: 0.25 mg Aspirin (Aspirin, "Baby" (Chewable)) 81 mg PO DAILY [facility] Last Admin: 02/25/18 10:39 Dose: 81 mg Carvedilol (Coreg) 6.25 mg PO DAILY [facility] Last Admin: 02/25/18 10:38 Dose: 6.25 mg Clopidogrel Bisulfate (Plavix) 75 mg PO DAILY [facility] Last Admin: 02/25/18 10:39 Dose: 75 mg Cyanocobalamin (Vitamin B-12) 1,000 mcg PO DAILY [facility] Last Admin: 02/25/18 10:38 Dose: 1,000 mcg Dextrose (Dextrose Syringe) 25 ml IV Q15M PRN PRN Reason: Hypoglycemia Dextrose (Dextrose Syringe) 50 ml IV Q15M PRN PRN Reason: Hypoglycemia Dextrose (Instant Glucose) 37.5 g PO Q15M PRN PRN Reason: Hypoglycemia Enoxaparin Sodium (Lovenox) 40 mg SC DAILY [facility] Last Admin: 02/25/18 10:39 Dose: 40 mg Furosemide (Lasix) 20 mg PO DAILY [facility] Last Admin: 02/25/18 10:38 Dose: 20 mg Gabapentin (Neurontin) 400 mg PO DAILY [facility] Last Admin: 02/25/18 10:45 Dose: 400 mg Glucagon (Glucagon) 1 mg IM Q15M PRN PRN Reason: Hypoglycemia Levothyroxine Sodium (Synthroid) 50 mcg PO QDSYNTH [facility] Last Admin: 02/25/18 05:47 Dose: 50 mcg Lisinopril (Zestril/Prinivil) 5 mg PO DAILY [facility] Last Admin: 02/25/18 10:39 Dose: 5 mg Melatonin (Melatonin) 3 mg PO QHS [facility] Last Admin: 02/24/18 21:01 Dose: 3 mg Methylphenidate HCl (Ritalin) 40 mg PO DAILY [facility] Last Admin: 02/25/18 10:40 Dose: 40 mg Nitroglycerin (Nitrostat) 400 mcg SL Q5M PRN PRN Reason: Chest Pain Oxycodone/Acetaminophen (Percocet) 2 tab PO Q6 PRN PRN Reason: Pain-moderate (4-6/10) Last Admin: 02/25/18 06:12 Dose: 2 tab Pantoprazole Sodium (Protonix) 40 mg PO DAILY [facility] Last Admin: 02/25/18 10:39 Dose: 40 mg Quetiapine Fumarate (Seroquel) 100 mg PO DAILY [facility] Last Admin: 02/25/18 10:38 Dose: 100 mg Senna/Docusate Sodium (Senokot-S) 1 tab PO DAILY [facility] Last Admin: 02/25/18 10:38 Dose: 1 tab Simvastatin (Zocor) 40 mg PO QHS [facility] Last Admin: 02/24/18 21:01 Dose: 40 mg Vitamin D (Vitamin D) 2,000 units.intl PO DAILY [facility] Last Admin: 02/25/18 10:39 Dose: 2,000 units.intl [...] (Auto) 67 Lymph % (Auto) 22 L Dane % (Auto) 7 Eos % (Auto) 2 Baso % (Auto) 1 Nucleat RBC Rel Count 0.0 Immature Gran # (Auto) 0.1 Neut # (Auto) 4.3 Lymph # (Auto) 1.4 Dane # (Auto) 0.4 Eos # (Auto) 0.2 [...] Color Urine Clarity Urine pH Ur Specific [place] Urine Protein Urine Glucose (UA) Urine Ketones [...] (Auto) Neut % (Auto) Lymph % (Auto) Dane % (Auto) Eos % (Auto) Baso % (Auto) Nucleat RBC Rel Count Immature Gran # (Auto) Neut # (Auto) Lymph # (Auto) Dane # (Auto) Eos # (Auto) Baso # [...] Clarity Clear Urine pH 5.0 Ur Specific [place] 1.010 Urine Protein Negative Urine Glucose (UA) [...] Diabetes mellitus type: type 2 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 : Dept: PDOC Loc[place] [facility] [id number] Consultation Service Dt: 02/25/18 Report#: [id number] Adm Dt: 02/24/18 Dis Dt: Initial Physician [...] morning. the patient's 57-year-old who is a half-way rather than from [place]. the patient has been admitted with worsening [...] did not have a good workup at [facility] and he was told that he does not have diabetes. actually he was surprised that i have been talking to him about that. past medical history coronary artery [id number]-przhepvfky heart failure. hyperlipidemia hypertension history of cva-stroke [...] weight gain. social history patient lives at half-way. apparently his is also at the same half-way. - Past Medical History Neurological: CVA/Stroke, TIA/Transient Ischemic Attack(s) Other Neurological Hx: TPA 3 TIMES ADMINISTERED ENT/Eye: Eye problem Other ENT/Eye Hx: wears glassess Cardiac: Angioplasty, Coronary Artery Disease/CAD, Cardiac Cath, CHF, Heart Attack ([place]), High Cholesterol, HTN Respiratory: Pulmonary Embolism/PE, Pneumonia [...] of Substances/Recreational Drugs: No Comment: Lives in [place] half-way with his . 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 - Family Health History [...] (Aspirin, "Baby" (Chewable)) 81 mg PO DAILY [facility] Carvedilol (Coreg) 6.25 mg PO DAILY [facility] Clopidogrel Bisulfate (Plavix) 75 mg PO DAILY [facility] Cyanocobalamin (Vitamin B-12) 1,000 mcg PO DAILY [facility] Dextrose (Dextrose Syringe) 25 ml IV Q15M PRN PRN Reason: Hypoglycemia Dextrose (Dextrose Syringe) 50 ml IV Q15M PRN PRN Reason: Hypoglycemia Dextrose (Instant Glucose) 37.5 g PO Q15M PRN PRN Reason: Hypoglycemia Enoxaparin Sodium (Lovenox) 40 mg SC DAILY [facility] Furosemide (Lasix) 20 mg PO DAILY [facility] Gabapentin (Neurontin) 400 mg PO DAILY [facility] Glucagon (Glucagon) 1 mg IM Q15M PRN PRN Reason: Hypoglycemia [facility] Last Admin: 02/25/18 05:47 Dose: 50 mcg Lisinopril (Zestril/Prinivil) 5 mg PO DAILY [facility] Melatonin (Melatonin) 3 mg PO QHS [facility] Last Admin: 02/24/18 21:01 Dose: 3 mg Nitroglycerin (Nitrostat) 400 mcg SL Q5M PRN PRN Reason: Chest Pain Non-Formulary Medication (Dextroamphetamine/Amphetami ne [Adderall 20 Mg Tablet]) 20 mg PO DAILY [facility] Oxycodone/Acetaminophen (Percocet) 2 tab PO Q6 PRN PRN Reason: Pain-moderate (4-6/10) Last Admin: 02/25/18 06:12 Dose: 2 tab Pantoprazole Sodium (Protonix) 40 mg PO DAILY [facility] Quetiapine Fumarate (Seroquel) 100 mg PO DAILY [facility] Senna/Docusate Sodium (Senokot-S) 1 tab PO DAILY [facility] Simvastatin (Zocor) 40 mg PO QHS [facility] Last Admin: 02/24/18 21:01 Dose: 40 mg Vitamin D (Vitamin D) 2,000 units.intl PO DAILY [facility] - Diagnostic Studies Lab Data: Labs (last 24 hrs) 02/25/18 02/24/18 02/24/18 07:10 16:40 12:25 WBC 6.4 RBC 3.77 L Hgb 10.5 L Hct 33.9 L MCV 89.9 MCH 27.9 MCHC 31.0 L RDW 14.0 Plt Count 187 MPV 9.6 Immature Gran % (Auto) 0.9 Neut % (Auto) 67 Lymph % (Auto) 22 L Dane % (Auto) 7 Eos % (Auto) 2 Baso % (Auto) 1 Nucleat RBC Rel Count 0.0 Immature Gran # (Auto) 0.1 Neut # (Auto) 4.3 Lymph # (Auto) 1.4 Dane # (Auto) 0.4 Eos # (Auto) 0.2 [...] Clarity Clear Urine pH 5.0 Ur Specific [place] 1.010 Urine Protein Negative Urine Glucose (UA) [...] (Auto) Neut % (Auto) Lymph % (Auto) Dane % (Auto) Eos % (Auto) Baso % (Auto) Nucleat RBC Rel Count Immature Gran # (Auto) Neut # (Auto) Lymph # (Auto) Dane # (Auto) Eos # (Auto) Baso # [...] Color Urine Clarity Urine pH Ur Specific [place] Urine Protein Urine Glucose (UA) Urine Ketones [...] him if he has diabetes possible new mzk-vvngtzhpym-oljuhhrbgcci of old cva. neurology service will be [...] of PPI. will monitor magnesium levels. Normal [facility] Free T3on 02-25-2018 T3 free mass conc 3.1 pg/mL Normal 1.8-4.2 [facility] Comment on above: Result Comment: Perf [facility] Site: [place] [address] [place] [address] Performed By: #### C BC, BMP, TROP, BNP, TSH ####[facility] [place] [address] Free T4on 02-25-2018 T4 free mass conc 0.8 ng/dL Normal 0.78-1.48 [facility] Comment on above: Performed By: #### C BC, BMP, TROP, BNP, TSH ####[address] [address] General Medical Progress Not clovis 02-25-2018 Protein mass conc [facility] Patient: NATALIE GERBER [address] [facility] MR#: [id number] [place], [place] [address] : 1960 [address] [place]: Dept: PDOC Loc: 9W 934-1 General Medical Progress Note Service Dt: 02/25/18 Report#: [id number] Adm Dt: 02/24/18 Dis Dt: General-Medical Progress [...] (Aspirin, "Baby" (Chewable)) 81 mg PO DAILY [facility] Last Admin: 02/25/18 10:39 Dose: 81 mg Carvedilol (Coreg) 6.25 mg PO DAILY [facility] Last Admin: 02/25/18 10:38 Dose: 6.25 mg Clopidogrel Bisulfate (Plavix) 75 mg PO DAILY [facility] Last Admin: 02/25/18 10:39 Dose: 75 mg Cyanocobalamin (Vitamin B-12) 1,000 mcg PO DAILY [facility] Last Admin: 02/25/18 10:38 Dose: 1,000 mcg Dextrose (Dextrose Syringe) 25 ml IV Q15M PRN PRN Reason: Hypoglycemia Dextrose (Dextrose Syringe) 50 ml IV Q15M PRN PRN Reason: Hypoglycemia Dextrose (Instant Glucose) 37.5 g PO Q15M PRN PRN Reason: Hypoglycemia Enoxaparin Sodium (Lovenox) 40 mg SC DAILY [facility] Last Admin: 02/25/18 10:39 Dose: 40 mg Furosemide (Lasix) 20 mg PO DAILY [facility] Last Admin: 02/25/18 10:38 Dose: 20 mg Gabapentin (Neurontin) 400 mg PO DAILY [facility] Last Admin: 02/25/18 10:45 Dose: 400 mg Glucagon (Glucagon) 1 mg IM Q15M PRN PRN Reason: Hypoglycemia Levothyroxine Sodium (Synthroid) 50 mcg PO QDSYNTH [facility] Last Admin: 02/25/18 05:47 Dose: 50 mcg Lisinopril (Zestril/Prinivil) 5 mg PO DAILY [facility] Last Admin: 02/25/18 10:39 Dose: 5 mg Melatonin (Melatonin) 3 mg PO QHS [facility] Last Admin: 02/24/18 21:01 Dose: 3 mg Methylphenidate HCl (Ritalin) 40 mg PO DAILY [facility] Last Admin: 02/25/18 10:40 Dose: 40 mg Nitroglycerin (Nitrostat) 400 mcg SL Q5M PRN PRN Reason: Chest Pain Oxycodone/Acetaminophen (Percocet) 2 tab PO Q6 PRN PRN Reason: Pain-moderate (4-6/10) Last Admin: 02/25/18 06:12 Dose: 2 tab Pantoprazole Sodium (Protonix) 40 mg PO DAILY [facility] Last Admin: 02/25/18 10:39 Dose: 40 mg Quetiapine Fumarate (Seroquel) 100 mg PO DAILY [facility] Last Admin: 02/25/18 10:38 Dose: 100 mg Senna/Docusate Sodium (Senokot-S) 1 tab PO DAILY [facility] Last Admin: 02/25/18 10:38 Dose: 1 tab Simvastatin (Zocor) 40 mg PO QHS [facility] Last Admin: 02/24/18 21:01 Dose: 40 mg Vitamin D (Vitamin D) 2,000 units.intl PO DAILY [facility] Last Admin: 02/25/18 10:39 Dose: 2,000 units.intl [...] Diabetes mellitus type: type 2 Diabetes mellitus intermediate insulin use: without extermination inspector use (7) CHF exacerbation Status: Suspected Qualifiers: [...] Time (minutes) Time Spent w/Patient: 31 Normal [facility] Hemoglobin A1con 02-25-2018 Hemoglobin A1c/Hemoglobin.total mass fraction (Bld) 6.1 % Normal 4.4-6.3 [facility] Comment on above: Performed By: #### C BC, BMP, TROP, BNP, TSH ####[facility] [place] [address] Lipid Profileon 02-25-2018 Cholesterol in HDL mass conc 27.1 mg/dL Normal 39-96 [facility] Comment on above: Result Comment: Refe rence ranges:Age Very Low Low Normal High0-19y: <35 <40 40-4520-24y: <40 >45>24y: <40 40-60 >60 Performed By: #### C BC, BMP, TROP, BNP, TSH ####[facility] [place] [address] Cholesterol in LDL mass conc 50.9 mg/dL Normal 0-130 [facility] Comment on above: Performed By: #### C BC, BMP, TROP, BNP, TSH ####[facility] [place] [address] Cholesterol mass conc 131 mg/dL Normal 0-200 [facility] Comment on above: Result Comment: Refe rence range:Age: Desirable Borderline High High0-19y: 0-169 170-199 >=49746-75m: 0-189 190-224 >=225>24y: 0-199 200-239 >=240All ranges based on fasting samples Performed By: #### C BC, BMP, TROP, BNP, TSH ####[facility] [place] [address] [id number] Cholesterol.total/Cho lesterol in HDL mass ratio 4.83 {ratio} Normal 0-6.9 [facility] Comment on above: Performed By: #### C BC, BMP, TROP, BNP, TSH ####[address] [id number] Triglycerides, Serum 266 mg/dL Normal 30-150 [facility] Comment on above: Result Comment: Refe rence range:Age Desirable Borderline High Very Dgvq6a-94q: 63-72668b-0k: 0-74 75-99 >=98907-47y: 0-89 90-129 >=04289-40v: 0-114 115-149 >=150>24y: 0-149 150-199 200-499 >=500 Performed By: #### C BC, BMP, TROP, BNP, TSH ####[facility] [place] [address] NR MR CERVICAL WO/W CONTRAST on 02-25-2018 NR MR CERVICAL WO/W CONTRAST Patient Name: NATALIE GERBER STUDY: NR MR CERVICAL WO/W CONTRAST; 02/25/2018 8:10 pm INDICATION: stroke. COMPARISON: None. ACCESSION NUMBER(S): [id number] ORDERING CLINICIAN: MARISELA MICHEL TECHNIQUE: Sagittal T1, [...] Electronically signed by: VICKIE MILES DO Normal [facility] NR MRA HEAD W/O Con 02-25-20 18 NR MRA HEAD W/O C Patient Name: NATALIE GERBER STUDY: NR MRI BRAIN W/WO CONTRAST; NR MRA HEAD W/O C; 02/25/2018 8:07 pm INDICATION: stroke. MS workup. COMPARISON: Head CT February 24, 2018 and MRI of the brain October 07, 2016. ACCESSION NUMBER(S): [id number]; [id number] ORDERING CLINICIAN: MARISELA MICHEL TECHNIQUE: Axial T2, FLAIR, DWI, gradient echo T2 and T1 weighted images of brain were acquired. Post contrast T1 weighted images were acquired after administration of 20 mL MultiHance intravenous contrast administration. Volumetric FLAIR images were also acquired and multiplanar reformats were submitted for review. Urmg-gm-[id number] MRA of the head was performed. The [...] head. Electronically signed by: DO Teagan CARLTON [facility] NR MRI BRAIN W/WO CONTRASTon 02-25-2018 NR MRI BRAIN W/WO CONTRAST Patient Name: NATALIE GERBER STUDY: NR MRI BRAIN W/WO CONTRAST; NR MRA HEAD W/O C; 02/25/2018 8:07 pm INDICATION: stroke. MS workup. COMPARISON: Head CT February 24, 2018 and MRI of the brain October 07, 2016. ACCESSION NUMBER(S): [id number]; [id number] ORDERING CLINICIAN: MARISELA MICHEL TECHNIQUE: Axial T2, FLAIR, DWI, gradient echo T2 and T1 weighted images of brain were acquired. Post contrast T1 weighted images were acquired after administration of 20 mL MultiHance intravenous contrast administration. Volumetric FLAIR images were also acquired and multiplanar reformats were submitted for review. Hvoa-gt-ldzpzo MRA of the head was performed. The [...] head. Electronically signed by: DO Teagan CARLTON [facility] Neurology Progress Noteon Protein mass conc [facility] Patient: NATALIE GERBER[address] MR#: [id number] [place], [place] [address] : 1960 Ord. : Dept: PDOC Loc: 9 934- Neurology Progress Note Service Dt: 02/25/18 Report#: [id number] Adm Dt: 02/24/18 Dis Dt: Neurology Progress [...] (Auto) 67 Lymph % (Auto) 22 L Dane % (Auto) 7 Eos % (Auto) 2 Baso % (Auto) 1 Nucleat RBC Rel Count 0.0 Immature Gran # (Auto) 0.1 Neut # (Auto) 4.3 Lymph # (Auto) 1.4 Dane # (Auto) 0.4 Eos # (Auto) 0.2 [...] (Aspirin, "Baby" (Chewable)) 81 mg PO DAILY [facility] Last Admin: 02/25/18 10:39 Dose: 81 mg Carvedilol (Coreg) 6.25 mg PO DAILY [facility] Last Admin: 02/25/18 10:38 Dose: 6.25 mg Clopidogrel Bisulfate (Plavix) 75 mg PO DAILY [facility] Last Admin: 02/25/18 10:39 Dose: 75 mg Cyanocobalamin (Vitamin B-12) 1,000 mcg PO DAILY [facility] Last Admin: 02/25/18 10:38 Dose: 1,000 mcg Dextrose (Dextrose Syringe) 25 ml IV Q15M PRN PRN Reason: Hypoglycemia Dextrose (Dextrose Syringe) 50 ml IV Q15M PRN PRN Reason: Hypoglycemia Dextrose (Instant Glucose) 37.5 g PO Q15M PRN PRN Reason: Hypoglycemia Enoxaparin Sodium (Lovenox) 40 mg SC DAILY [facility] Last Admin: 02/25/18 10:39 Dose: 40 mg Furosemide (Lasix) 20 mg PO DAILY [facility] Last Admin: 02/25/18 10:38 Dose: 20 mg Gabapentin (Neurontin) 400 mg PO DAILY [facility] Last Admin: 02/25/18 10:45 Dose: 400 mg Glucagon (Glucagon) 1 mg IM Q15M PRN PRN Reason: Hypoglycemia Levothyroxine Sodium (Synthroid) 50 mcg PO QDSYNTH [facility] Last Admin: 02/25/18 05:47 Dose: 50 mcg Lisinopril (Zestril/Prinivil) 5 mg PO DAILY [facility] Last Admin: 02/25/18 10:39 Dose: 5 mg Melatonin (Melatonin) 3 mg PO QHS [facility] Last Admin: 02/24/18 21:01 Dose: 3 mg Methylphenidate HCl (Ritalin) 40 mg PO DAILY [facility] Last Admin: 02/25/18 10:40 Dose: 40 mg Nitroglycerin (Nitrostat) 400 mcg SL Q5M PRN PRN Reason: Chest Pain Oxycodone/Acetaminophen (Percocet) 2 tab PO Q6 PRN PRN Reason: Pain-moderate (4-6/10) Last Admin: 02/25/18 12:18 Dose: 2 tab Pantoprazole Sodium (Protonix) 40 mg PO DAILY [facility] Last Admin: 02/25/18 10:39 Dose: 40 mg Quetiapine Fumarate (Seroquel) 100 mg PO DAILY [facility] Last Admin: 02/25/18 10:38 Dose: 100 mg Senna/Docusate Sodium (Senokot-S) 1 tab PO DAILY [facility] Last Admin: 02/25/18 10:38 Dose: 1 tab Simvastatin (Zocor) 40 mg PO QHS [facility] Last Admin: 02/24/18 21:01 Dose: 40 mg Vitamin D (Vitamin D) 2,000 units.intl PO DAILY [facility] Last Admin: 02/25/18 10:39 Dose: 2,000 units.intl Allergies/Adv: Allergies Allergy/AdvReac Type Severity Reaction Status Date / Time ketorolac Allergy Severe Hives Verified 08/02/16 23:25 nalbuphine Allergy Severe Shortness Verified 08/02/16 23:25 of Breath nalbuphine HCl * Allergy Unknown Verified 10/08/16 21:16 [From Trangin] - Assessment/Plan (1) Paresthesia Status: Acute Plan: [...] performed as an inpatient if possible. Normal [facility] Vitamin B12on 02-25-2018 Cobalamin (Vitamin B12) mass conc 361 pg/mL Normal 211-911 [facility] Comment on above: Result Comment: [place] [facility] Site: [place] [address] [place] [address] Performed By: #### C BC, BMP, TROP, BNP, TSH ####[facility] [place] [address] B-type Natriuretic Peptideon 02-24-2018 Natriuretic peptide B mass conc (Bld) 35 pg/mL Normal 0-100 [facility] Comment on above: Result Comment: Refe rence Intervals:<100 pg/mL - Heart failure ysrluide088-232 pg/mL - Intermediate probability of acute heartfailure exacerbation. Correlate with clinical context andpatient history.>=300 pg/mL - Heart failure likely. Correlate with clinicalcontext and patient history. Performed By: #### C BC, BMP, TROP, BNP, TSH ####[address] [address] Basic Metabolic Panel $$$on 02-24-2018 Anion gap 3 molar conc 8.5 mmol/L Low 10-20 [facility] Comment on above: Performed By: #### C BC, BMP, TROP, BNP, TSH ####[address] [address] Calcium mass conc 8.6 mg/dL Normal 8.6-10.3 [facility] Comment on above: Result Comment: Spring burns note new reference range as of September. Performed By: #### C BC, BMP, TROP, BNP, TSH ####[address] [address] Chloride molar conc 106 mmol/L Normal 98-107 [facility] Comment on above: Performed By: #### C BC, BMP, TROP, BNP, TSH ####[facility] [place] [address] CO2 molar conc 29 mmol/L Normal 21-32 [facility] Comment on above: Performed By: #### C BC, BMP, TROP, BNP, TSH ####[facility] [place] [address] Creatinine mass conc 0.75 mg/dL Normal 0.50-1.30 [facility] Comment on above: Result Comment: Spring burns note new reference range as of September. Performed By: #### C BC, BMP, TROP, BNP, TSH ####[facility] [place] [address] GFR () >60 Normal [facility] Comment on above: Performed By: #### C BC, BMP, TROP, BNP, TSH ####[address] [address] GFR (Non ) >60 Normal [facility] Comment on above: Result Comment: eGFR Units of measure: mL/min/1.73 m 2 Performed By: #### C BC, BMP, TROP, BNP, TSH ####[address] [address] Glucose mass conc 91 mg/dL Normal 74-99 [facility] Comment on above: Performed By: #### C BC, BMP, TROP, BNP, TSH ####[address] [address] Potassium molar conc 4.5 mmol/L Normal 3.5-5.3 [facility] Comment on above: Performed By: #### C BC, BMP, TROP, BNP, TSH ####[facility] [place] [address] Sodium molar conc 139 mmol/L Normal 136-145 [facility] Comment on above: Performed By: #### C BC, BMP, TROP, BNP, TSH ####[facility] [place] [address] Urea nitrogen mass conc (Bld) 15 mg/dL Normal 6-23 [facility] Comment on above: Result Comment: Spring burns note new reference range as of September. Performed By: #### C BC, BMP, TROP, BNP, TSH ####[facility] [place] [address] Brain or Head without Contra ston 02-24-2018 Brain or Head without Contrast [facility] Patient: NATALIE GERBER [address] [facility] MR#: [id number] [place], [place] [address] : [address] Koko Whitt MD Dept: Diagnostic Imaging Loc: 1EDA DI REPORT Service Dt:02/24/18 Report#: [id number] Adm Dt: 02/24/18 Dis Dt: Comments: STUDY: CT Brain or Head without Contrast; 02/24/2018 11:30 am INDICATION: altered mental status. COMPARISON: 10/07/2016 ACCESSION NUMBER(S): [id number] ORDERING CLINICIAN: Koko Whitt TECHNIQUE: Noncontrast axial [...] by: Luisa Arevalo 02/24/2018 11:49 AM Normal [facility] Chest Single Xray 1 viewon 0 02-24-2018 Chest Single Xray 1 view [facility] Patient: NATALIE GERBER [address] MR#: [id number] [place], [place] [address] : [address] Koko Whitt MD Dept: Diagnostic Imaging Loc: 1EDA DI REPORT Service Dt:02/24/18 Report#: [id number] Adm Dt: 02/24/18 Dis Dt: Comments: STUDY: CR Chest Single Xray 1 view; 02/24/2018 11:45 am INDICATION: Heart Failure. COMPARISON: 11/14/2016 ACCESSION NUMBER(S): [id number] ORDERING CLINICIAN: Koko Whitt FINDINGS: A single [...] by: Chuck Arellano 02/24/2018 12:52 PM Normal [facility] Complete Blood Count w/diff $$on 02-24-2018 Diff Type Manual Normal [facility] Comment on above: Performed By: #### C BC, BMP, TROP, BNP, TSH ####[facility] [place] [address] Erythrocyte distribution width Auto Ratio (RBC) 13.9 % Normal 11.5-14.5 [facility] Comment on above: Performed By: #### C BC, BMP, TROP, BNP, TSH ####[facility] [place] [address] Hematocrit Auto Volume Fraction (Bld) 35.0 % Low 39-50 [facility] Comment on above: Performed By: #### C BC, BMP, TROP, BNP, TSH ####[place] [address] Hemoglobin mass conc (Bld) 10.8 g/dL Low 13.0-17.3 [facility] Comment on above: Performed By: #### C BC, BMP, TROP, BNP, TSH ####[address] [address] MCH Auto Entitic mass (RBC) 30.9 g/dL Low 33-37 [facility] Comment on above: Performed By: #### C BC, BMP, TROP, BNP, TSH ####[address] [address] MCH Auto Entitic mass (RBC) 27.6 pg Normal 27-34 [facility] Comment on above: Performed By: #### C BC, BMP, TROP, BNP, TSH ####[address] [address] MCV Auto Entitic volume (RBC) 89.5 fL Normal 80-100 [facility] Comment on above: Performed By: #### C BC, BMP, TROP, BNP, TSH ####[address] [address] Platelet mean volume Auto Entitic volume (Bld) 9.3 fL Normal 7.4-10.4 [facility] Comment on above: Performed By: #### C BC, BMP, TROP, BNP, TSH ####[address] [address] Platelets Auto #/vol (Bld) 193 10 3/uL Normal 150-400 [facility] Comment on above: Performed By: #### C BC, BMP, TROP, BNP, TSH ####[address] [address] RBC Auto #/vol (Bld) 3.91 10 6/uL Low 4.5-6.0 [facility] Comment on above: Performed By: #### C BC, BMP, TROP, BNP, TSH ####[facility] [place] [address] WBC Auto #/vol (Bld) 6.8 10 3/uL Normal 4.0-11.0 [facility] Comment on above: Performed By: #### C BC, BMP, TROP, BNP, TSH ####[facility] [place] [address] Consultation Reporton 2017 Consultation Report [facility] Patient: NATALIE GERBER [address] [facility] MR#: [id number] [place], [place] [address] : 1960 Ord[address] Murray: Dept: PDOC Loc: 9W 934-1 Consultation Service Dt: 02/24/18 Report#: [id number] Adm Dt: 02/24/18 Dis Dt: Initial Physician [...] Artery Disease/CAD, Cardiac Cath, CHF, Heart Attack (IL), High Cholesterol, HTN Respiratory: Pulmonary Embolism/PE, Pneumonia [...] of Substances/Recreational Drugs: No Comment: Lives in [place] half-way with his . 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 - Family Health History [...] (Aspirin, "Baby" (Chewable)) 81 mg PO DAILY [facility] Carvedilol (Coreg) 6.25 mg PO DAILY [facility] Clopidogrel Bisulfate (Plavix) 75 mg PO DAILY [facility] Cyanocobalamin (Vitamin B-12) 1,000 mcg PO DAILY [facility] Dextrose (Dextrose Syringe) 25 ml IV Q15M PRN PRN Reason: Hypoglycemia Dextrose (Dextrose Syringe) 50 ml IV Q15M PRN PRN Reason: Hypoglycemia Dextrose (Instant Glucose) 37.5 g PO Q15M PRN PRN Reason: Hypoglycemia Enoxaparin Sodium (Lovenox) 40 mg SC DAILY [facility] Furosemide (Lasix) 20 mg PO DAILY [facility] Gabapentin (Neurontin) 400 mg PO DAILY [facility] Glucagon (Glucagon) 1 mg IM Q15M PRN PRN Reason: Hypoglycemia Sodium Chloride (Sodium Chloride 0.9%) 1,000 mls @ 30 mls/hr IV .[id number] [facility] Last Admin: 02/24/18 12:13 Dose: 30 mls/hr Insulin Human Regular (Humulin R (Bkc)) 0 units SC AC MARISOL PRN Reason: Protocol Levothyroxine Sodium (Synthroid) 50 mcg PO QDSYNTH [facility] Lisinopril (Zestril/Prinivil) 5 mg PO DAILY [facility] Melatonin (Melatonin) 3 mg PO QHS [facility] Nitroglycerin (Nitrostat) 400 mcg SL Q5M PRN PRN Reason: Chest Pain Non-Formulary Medication (Dextroamphetamine/Amphetami ne [Adderall 20 Mg Tablet]) 20 mg PO DAILY [facility] Non-Formulary Medication (Esomeprazole Magnesium [Nexium]) 40 mg PO DAILY [facility] Ondansetron HCl (Zofran) 4 mg IV Q6 PRN PRN Reason: Nausea Oxycodone/Acetaminophen (Percocet) 2 tab PO Q6 PRN PRN Reason: Pain-moderate (4-6/10) Quetiapine Fumarate (Seroquel) 100 mg PO DAILY [facility] Senna/Docusate Sodium (Senokot-S) 1 tab PO DAILY [facility] Simvastatin (Zocor) 40 mg PO QHS [facility] Vitamin D (Vitamin D) 2,000 units.intl PO [...] Clarity Clear Urine pH 5.0 Ur Specific [place] 1.010 Urine Protein Negative Urine Glucose (UA) [...] There is no tremor. On coordination testing, cncvnr-encw-xekmsa and xuix-fgbt-szzg testing are done well bilaterally. Sensory examination [...] you for the consult. 02/24/18 16:09 Normal [facility] ED Visit Summaryon 8 ED Visit Summary [facility] Patient: NATALIE GERBER [address] [facility] MR#: [id number] [place], [place] [address] : 1960 Ord[address] : Dept: Emergency Department Loc: 1EDA ER Physician Documentation Service Dt: 02/24/18 Report#: [id number] Adm Dt: 02/24/18 Dis Dt: Patient Information [...] stroke. He is currently living at the [facility] with his . He is being [...] Artery Disease/CAD, Cardiac Cath, CHF, Heart Attack (IL), High Cholesterol, HTN Hx Heart Failure? How [...] Michel MD [Primary Care Provider] - Normal [facility] Glucose, Point of Careon Glucose mass conc 112 mg/dL High 80-110 [facility] Comment on above: Performed By: #### C BC, BMP, TROP, BNP, TSH ####[facility] [place], [place] [id number] History AND Physicalon 02-24 History AND Physical [facility] Patient: NATALIE GERBER [address] [facility] MR#: [id number] [place], [place] [address] : 1960 Ord[address] Murray: Dept: PDOC Loc: 9 934-1 History Physical Service Dt: 02/24/18 Report#: [id number] Adm Dt: 02/24/18 Dis Dt: History and [...] sided facial and left arm parasthesias of [id number] etiology. Symptoms worse today. Also recently has had dyspnea and light headedness associated with ambulation in the ecf. Has many co-morbidities, and is morbidly obese Cardiac: Angioplasty, Coronary Artery Disease/CAD, Cardiac Cath, CHF, Heart Attack (IL), High Cholesterol, HTN Neurological: CVA/Stroke, TIA/Transient Ischemic [...] of Substances/Recreational Drugs: No Comment: Lives in [place] half-way with his . 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 - Family Health History [...] Clarity Clear Urine pH 5.0 Ur Specific [place] 1.010 Urine Protein Negative Urine Glucose (UA) [...] Diabetes mellitus type: type 2 Diabetes mellitus extermination inspector insulin use: without extermination inspector use (7) CHF exacerbation Status: Suspected Qualifiers: [...] Changes noted below: Date/Time Attending Physician Normal [facility] History AND Physical [facility] Patient: NATALIE GERBER [address] [facility] MR#: [id number] [place], [place] [address] : 1960 Ord[address] Murray: Dept: PDOC Loc: 9 934-1 History Physical Service Dt: 02/24/18 Report#: [id number] Adm Dt: 02/24/18 Dis Dt: History and Physical - Admit Order Information Status/Length of Stay: Observation <2 Midnights, Place Pt in Routine Location: Telemetry Floor - Date of Service Date of Service: 02/24/18 (1432) - PCP/Chief Complaint Primary Care Physician: Marisela Michel Chief Complaint: LUE and facial numbness - Patient Information HPI/ROS/Exam: This is a 57-year-old male with a past medical history of hypertension, hyperlipidemia, CAD with IL and angioplasty, CHF, CVA, PE, and hypothyroidism [...] stroke that he needed life flighted to [facility] for and he received TPA. He denies having a neurologist. He reports he saw packaging assembler in [place], however since he has moved to [facility], he would like to see a new packaging assembler. In the ED lab work, EKG, chest [...] Artery Disease/CAD, Cardiac Cath, CHF, Heart Attack (IL), High Cholesterol, HTN Neurological: CVA/Stroke, TIA/Transient Ischemic [...] of Substances/Recreational Drugs: No Comment: Lives in [place] half-way with his . 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 - Family Health History [...] Clarity Clear Urine pH 5.0 Ur Specific [place] 1.010 Urine Protein Negative Urine Glucose (UA) [...] Acute Plan: early and aggressive mobilization [facility] NIH Stroke Scale - NIHSS Assessment Time Time Performed: 14:30 - NIH Stroke Scale Level of Consciousness: 0- Alert, Keenly Responsive Ask Month and Patient Age- Must Be Exactly Right: 0- Answers Both Correctly Ask Pt to Open/Close Eyes then Vegetable Loader/Release Non-paretic Hand: 0- Performs Both Tasks Correctly [...] Changes noted below: Date/Time Attending Physician Normal [facility] Protime INRon 02-24-2018 INR Coag RelTime (PPP) 0.9 {INR} Normal 0.9-1.1 [facility] Comment on above: Result Comment: Spring burns note new reference range OF 07/01/2017 Performed By: #### P TINR, UR ####[facility] [place] [address] Protein mass conc 10.6 sec Normal 9.8-12.7 [facility] Comment on above: Result Comment: Spring burns note new reference range OF 07/01/2017 Performed By: #### P TINR, UR ####[facility] [place] [address] Thyroid Stimulating Hormoneo n 02-24-2018 Thyrotropin Qn 1.77 m[IU]/L Normal 0.44-3.98 [facility] Comment on above: Performed By: #### C BC, BMP, TROP, BNP, TSH ####[address] [address] Thyrotropin Qn Normal 0.358-3.74 [facility] Comment on above: Order Comment: Added by laboratory to previous specimen. AT 1556Add on to today's blood, if available? Y Performed By: #### C BC, BMP, TROP, BNP, TSH ####[address] [address] Troponin Ion 02-24-2018 Troponin I.cardiac mass conc ng/mL Normal 0.00-0.040 [facility] Comment on above: Performed By: #### C BC, BMP, TROP, BNP, TSH ####[address] [address] Urinalysison 02-24-2018 Bilirubin, Urine Negative Normal Negative [facility] Comment on above: Performed By: #### P TINR, UR ####[address] [address] Clarity Nom (U) Clear Normal [facility] Comment on above: Performed By: #### P TINR, UR ####[address] [address] Color Nom (U) Yellow Normal [facility] Comment on above: Performed By: #### P TINR, UR ####[address] [address] Glucose Ql (U) Negative Normal Negative [facility] Comment on above: Performed By: #### P TINR, UR ####[address] [address] Hemoglobin Test strip Ql (U) Negative Normal Negative [facility] Comment on above: Performed By: #### P TINR, UR ####[address] [address] Hyaline Casts, Urine 0-[address] [facility] Comment on above: Performed By: #### P TINR, UR ####[address] [address] Ketones Ql (U) Negative Normal Negative [facility] Comment on above: Performed By: #### P TINR, UR ####[address] [address] Leukocyte esterase Test strip Ql (U) Negative Normal Negative [facility] Comment on above: Performed By: #### P TINR, UR ####[address] [address] Mucus, Urine Rare Normal [facility] Comment on above: Performed By: #### P TINR, UR ####[address] [address] Nitrates, Urine Negative Normal Negative [facility] Comment on above: Performed By: #### P TINR, UR ####[address] [address] pH Test strip (U) 5.0 [pH] Normal 5.0-9.0 [facility] Comment on above: Performed By: #### P TINR, UR ####[address] [address] Protein, Urine Negative Normal Negative [facility] Comment on above: Performed By: #### P TINR, UR ####[address] [address] Specific [place], Urine 1.010 Normal 1.000-1.03 0 [facility] Comment on above: Performed By: #### P TINR, UR ####[facility] [place] [address] Urobilinogen, Urine Normal Normal <2.0 [facility] Comment on above: Performed By: #### P TINR, UR ####[facility] [place] [address] WBC, Urine 0 /HPF Normal 0-2 [facility] Comment on above: Performed By: #### P TINR, UR ####[facility] [place] [address] Vital Signs Date Time Vital Sign Value Performing Clinician Facility 01-17-2023 08:50-0400 Body height 165.1 cm [facility] Work Phone: [facility] 01-17-2023 08:50-0400 Body weight 134.26 kg [facility] Work Phone: [facility] 01-17-2023 08:50-0400 Respiratory rate 16 /min [facility] Work Phone: [facility] 01-31-2020 11:33-0400 Body Temperature 96.01 [degF] [facility], [place] 01-31-2020 11:33-0400 BP Diastolic 70 mm[Hg] [facility] , [place] 01-31-2020 11:33-0400 BP Systolic 128 mm[Hg] [facility] , [place] 01-31-2020 11:33-0400 Pulse (Heart Rate) 65 /min [facility] 01-31-2020 11:33-0400 Pulse Oximetry 99 % [facility] , [place] 01-31-2020 11:33-0400 Respiratory Rate 17 /min [facility], [place] 01-27-2020 02:07-0400 BMI (Body Mass Index) 54.78 kg/m2 [facility], [place] 01-27-2020 02:07-0400 Body weight 149.32 kg [facility] , [place] 01-27-2020 02:07-0400 Height 165.1 cm Matilda Bird [facility] , [place] 06-24-2019 07:27-0500 Body temperature 96.6 [degF] Arian [...] 54.2 kg/m2 Arian Dimas MD Work Phone: [facility] Work Phone: 06-17-2019 22:22-0500 Body weight 147.74 kg Arian Dimas MD Work Phone: [facility] Work Phone: 06-17-2019 19:15-0500 Body height 165.1 cm Arian Dimas MD Work Phone: [facility] Work Phone: 05-08-2019 11:43-0500 Body Temperature 97.7 [degF] [facility], [place] 05-08-2019 11:43-0500 BP Diastolic 50 mm[Hg] [facility] , [place] 05-08-2019 11:43-0500 BP Systolic 120 mm[Hg] [facility] , [place] 05-08-2019 11:43-0500 Pulse (Heart Rate) 81 /min [facility], [place] 05-08-2019 11:43-0500 Pulse Oximetry 95 % [facility] , [place] 05-08-2019 11:43-0500 Respiratory Rate 20 /min [facility] 05-07-2019 04:49-0500 BMI (Body Mass Index) 52.35 kg/m2 [facility] 05-07-2019 04:49-0500 Body weight 142.7 kg [facility] , [place] 05-06-2019 20:21-0500 Height 165.1 cm [facility] , [place] 03-25-2019 19:31-0400 Body Temperature 96.91 [degF] [facility] 03-25-2019 19:31-0400 BP Diastolic 91 mm[Hg] [facility] , [place] 03-25-2019 19:31-0400 BP Systolic 146 mm[Hg] [facility] , [place] 03-25-2019 19:31-0400 Pulse (Heart Rate) 72 /min [facility] 03-25-2019 19:31-0400 Pulse Oximetry 98 % [facility] , [place] 03-25-2019 19:31-0400 Respiratory Rate 20 /min [facility] 03-20-2019 02:47-0400 BMI (Body Mass Index) 52.59 kg/m2 [facility] 03-20-2019 02:47-0400 Body weight 143.34 kg [facility] , [place] 03-20-2019 02:47-0400 Height 165.1 cm Matilda Bird [facility] , [place] 03-11-2019 16:40-0400 Body Temperature 98.4 [degF] [facility] 03-11-2019 16:40-0400 BP Diastolic 62 mm[Hg] Located [facility] , [place] 03-11-2019 16:40-0400 BP Systolic 101 mm[Hg] [facility] , [place] 03-11-2019 16:40-0400 Pulse (Heart Rate) 65 /min [facility] 03-11-2019 16:40-0400 Pulse Oximetry 97 % [facility] , [place] 03-11-2019 16:40-0400 Respiratory Rate 16 /min [facility] 03-11-2019 06:04-0400 BMI (Body Mass Index) 53.98 kg/m2 [facility], [place] 03-11-2019 06:04-0400 Body weight 147.14 kg [facility] , [place] 03-08-2019 19:25-0400 Height 165.1 cm [facility] , [place] 02-17-2019 14:06-0400 BP Diastolic 92 mm[Hg] [facility] [place] 02-17-2019 14:06-0400 BP Systolic 146 mm[Hg] [facility] , [place] 02-17-2019 14:06-0400 Pulse (Heart Rate) 84 /min [facility] 02-17-2019 14:06-0400 Pulse Oximetry 96 % [facility] , [place] 02-17-2019 14:06-0400 Respiratory Rate 20 /min [facility], [place] 02-17-2019 11:02-0400 Body Temperature 97.9 [degF] [facility] [place] 01-13-2019 07:51-0400 Body Temperature 97.9 [degF] Asaf Og [facility], [place] 01-13-2019 07:51-0400 BP Diastolic 50 mm[Hg] [place], [place] 01-13-2019 07:51-0400 BP Systolic 113 mm[Hg] [place] 01-13-2019 07:51-0400 Pulse (Heart Rate) 80 /min [place] 01-13-2019 07:51-0400 Pulse Oximetry 95 % [facility] , [place] 01-13-2019 07:51-0400 Respiratory Rate 20 /min [facility] 01-12-2019 21:25-0400 BMI (Body Mass Index) 51.92 kg/m2 [facility] [place] 01-12-2019 21:25-0400 Body weight 141.52 kg [place] 01-12-2019 21:25-0400 Height 165.1 cm [place] Encounters Encounter Date Encounter Type Care Provider Facility Start: 01-04-[address] [facility] Facility:[facility] Start: 12-06-2024 ambulatory Chuy Garcia ity:[facility] Start: 11-01-2024 ambulatory Chuy Garcia ity:[facility] Start: 11-01-2024 Registered Referred Chuy Ross - [address] Start: 10-04-2024 End: 10-04-[address] Satya Boyce DO Work Phone: [facility] Work Phone: Start: 10-04-2024 End: 10-04-2024 Departed Referred Chuy Ross - [address] Start: 10-04-2024 End: 10-04-2024 ambulatory Satya Boyce Facility:[facility] Start: 08-27-2024 End: 08-27-[address] Satya Boyce DO Work Phone: [facility] Work Phone: Start: 08-27-2024 End: 08-27-2024 Departed Referred Chuy Galeano -[employer] - [address] Start: 08-27-2024 End: 08-27-2024 ambulatory [facility] Facility:[facility] Start: 07-14-2024 ambulatory [facility] Facility:[facility] Start: 07-14-2024 Registered Referred Chuy Galeano -[facility]ank [facility] [place] - [address] Start: 07-07-2024 ambulatory [facility] Facility:[facility] Start: 07-07-2024 Registered Referred Chuy Galeano -[place] - [address] Start: 05-03-2024 End: 05-11-2024 Telephone encounter Sami Vance MD Work Phone: [facility] G[facility] Comment on above: Referral Start: 05-03-2024 End: 05-03-2024 ambulatory [facility] Facility:[facility] Start: 04-06-2024 End: 04-06-2024 ambulatory [facility] Facility:[facility] Start: 12-09-2023 Telephone encounter Bibi Steele MD Work Phone: [facility] Comment on above: Appointment Start: 08-28-2023 End: 08-28-2023 ambulatory [facility] Work Phone: Start: 08-28-2023 End: 08-28-2023 [facility]ed [facility] [address] Start: 04-04-2023 End: 04-04-2023 ambulatory [facility] Work Phone: Start: 04-04-2023 End: 04-04-2023 Departed [facility] [address] Start: 01-17-2023 End: 01-17-2023 ambulatory [facility] Facility:[facility] Start: 01-17-2023 End: 01-17-2023 Patient encounter procedure [facility] Work Phone: [facility] Comment on above: Chronic left shoulde r pain (Primary Dx) Start: 11-22-2022 Telephone encounter [facility] Work Phone: [facility] Comment on above: Appointment (No Show on 11/22) Start: 11-20-2022 Telephone encounter [facility] Work Phone: [facility] Comment on above: Appointment (11/22 ap pointment reminder) Start: 08-23-2022 End: 08-23-2022 ambulatory SATYA KAHN [facility] Start: 08-21-2022 Telephone encounter [facility] Work Phone: [facility] Comment on above: Appointment (08/23 ap pointment reminder) Start: 08-02-2022 Telephone encounter [facility] Work Phone: [facility] Comment on above: Appointment (Schedul e appointment for Lt shoulder referral) Start: 04-12-2022 Telephone encounter Bibi Steele MD Work Phone: [facility] Comment on above: Missed appt letter r eturned Start: 02-26-2022 Chart abstracting Bibi Steele MD Work Phone: [facility] Start: 12-31-2021 Chart Update Satya Boyce Work Phone: [facility] Work Phone: Start: 12-29-2021 Chart abstracting Lisa solis MA [facility] Start: 12-13-2021 ambulatory Cayetano Fraire er RT(R) Nuclear Medicine Comment on above: Radiology [place] Start: 12-13-2021 Patient encounter procedure Cayetano Braun RT(R) [facility] Start: 01-26-2020 End: 01-31-2020 Emergency department patient visit Matilda Bird Work Phone: [facility] CDU Comment on above: Chest pain, unspecif ied type (Primary Dx) Start: 06-17-2019 End: 06-24-2019 Emergency department patient visit Arian Dimas MD Work Phone: [facility] 5E MED SURG Comment on above: Sciatica of left patrick e (Primary Dx); Recurrent falls; Mood disorder (HCC) Start: 05-06-2019 End: 05-08-2019 Emergency department patient visit Asha Singh Work Phone: [facility] 5W TELEMETRY Comment on above: Chest pain, unspecif ied type (Primary Dx) Start: 05-06-2019 End: 05-06-2019 Emergency department patient visit [facility] Start: 03-20-2019 End: 03-26-2019 Emergency department patient visit Matilda Bird Work Phone: [facility] 7W MED SURG Comment on above: Acute exacerbation o f chronic low back pain (Primary Dx); Left leg pain; Left leg weakness; Frequent falls; Elevated erythrocyte sedimentation rate; Elevated C-reactive protein (CRP) Start: 03-08-2019 End: 03-11-2019 Evaluation and management of inpatient Ja Olguin Work Phone: [facility] 5W TELEMETRY Comment on above: 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 (Primary Dx); Chest pain, unspecified type Start: 02-17-2019 End: 02-17-2019 Emergency department patient visit Brandon Dahl Work Phone: [facility] Comment on above: Sciatica of left patrick e (Primary Dx) Start: 01-12-2019 End: 01-13-2019 Emergency department patient visit Asaf Og Work Phone: [facility] Emergency Dept Comment on above: Dyspnea, unspecified type (Primary Dx); Peripheral edema; Suicidal ideation; Depression, unspecified depression type Start: 06-07-2018 End: 06-09-2018 Patient encounter procedure [facility] Start: 06-07-2018 End: 06-07-2018 Patient encounter procedure [facility] Facility:UNKNOWN Start: 05-15-2018 End: 05-19-2018 Patient encounter procedure [facility] Start: 02-24-2018 End: 03-04-2018 Evaluation and management of inpatient Marisela Michel Facility:[facility] Start: 11-16-2016 End: 11-17-2016 Emergency department patient visit KAR STRICKLAND Facility:[facility] Procedures Date Procedure Procedure Detail Performing Clinician [...] Blood count complete auto&auto difrntl wbc Satya Vasquezvalentino Work Phone: Start: 01-28-2020 Comprehensive metabolic panel Satya Vasquezvalentino Work Phone: Start: 01-27-2020 COVID-19 Satya Baker onyo Work Phone: Start: 01-27-2020 Assay of troponin quantitative Satya Maryam Boyce Work Phone: Start: 01-27-2020 Assay of [...] lum bar w/o & w/contr matrl Sunny Kevan Work Phone: Start: 2019 Blood count complete auto&auto difrntl wbc Satya Boyce Work Phone: Start: 2019 Comprehensive metabolic panel Satya Boyce Work Phone: Start: 03-21-2019 Blood count complete auto&auto difrntl wbc Satya Boyce Work Phone: Start: 03-21-2019 Comprehensive metabolic panel Satya Boyce Work Phone: Start: 03-21-2019 Drug screen class list a Satya Boyce Work Phone: Start: 03-20-2019 Blood count complete automated Matilda [employer] Work Phone: Start: 03-20-2019 Sedimentation rate r bc automated Matilda [employer] Work Phone: Start: 03-20-2019 Basic metabolic pane l calcium total Matilda [employer] Work Phone: Start: 03-20-2019 C-reactive protein Kevi n [employer] Work Phone: Start: 03-09-2019 Assay of troponin [...] 01-12-2019 Radiologic exam ches t single view [employer] Work Phone: Start: 01-12-2019 ADD ON LAB TEST [employer] Work Phone: Start: 01-12-2019 Assay of ethanol Quenti n R Lenka Work Phone: Start: 01-12-2019 Assay of troponin quantitative Asaf R Lenka Work Phone: Start: 01-12-2019 Basic metabolic pane l calcium total Asaf R Lenka Work Phone: Start: 01-12-2019 Blood count complete automated Asaf R Lenka Work Phone: Start: 01-12-2019 Fibrin dgradj produc ts d-dimer quantitative Asaf R Lenka Work Phone: Start: 01-12-2019 Natriuretic peptide Que ntin R Lenka Work Phone: Start: 05-20-2018 INITIATE OXYGEN THER APY PROTOCOL HERNADEZ BONYO Start: 05-19-2018 NURSING COMMUNICATION B BOLIVAR BONYO Start: 05-19-2018 DISCHARGE PATIENT TONIA Trujillo [...] HERNADEZ BONYO Start: 05-16-2018 DIET CARDIAC SATYA ABUTISTA YO Start: 05-16-2018 INITIATE OXYGEN THER APY PROTOCOL HERNADEZLULU VASQUEZO Start: 05-16-2018 IP CONSULT TO NEUROLOGY HERNADEZ PEDROO Start: 05-16-2018 Mra neck w/o &w/cont rast material HERNADEZ PEDROO Start: 05-16-2018 NEURO CHECKS HERNADEZ MICHELE YO Start: 05-16-2018 NURSING SWALLOW ASSESSMENT HERNADEZLULU VASQUEZO Start: 05-16-2018 OT EVAL AND TREAT BENSO N BONYO Start: 05-16-2018 PROVIDE PATIENT EDUC ATION MATERIALS HERNADEZ PEDROO Start: 05-16-2018 PT EVAL AND TREAT BENSO N BONYO Start: 05-16-2018 REASON FOR NOT SELEC TING ANTILIPEMIC HERNADEZLULU VASQUEZO Start: 05-16-2018 VITAL SIGNS HERNADEZ MICHELE YO Start: 05-16-2018 VITAL SIGNS - NOTIFY MD SATYA BOYCE Start: 05-16-2018 PATIENT STATUS (FROM ED OR OR/PROCEDURAL) HERNADEZLULU VASQUEZO Start: 05-16-2018 TELEMETRY MONITORING BE NSON BONYO Start: 05-15-2018 Ct angiography head w/contrast/noncontrast SATYA BONYO Start: 05-15-2018 Ct angiography neck w/contrast/noncontrast HERNADEZ BONYO Start: 05-15-2018 Ct head/brain w/o co ntrast material HERNADEZLULU VASQUEZO Start: 05-15-2018 Ct perfusion w/contrast cbf SATYA VASQUEZO Start: 05-15-2018 IP CONSULT TO MATERIAL PLANNER AL MEDICINE SATYA VASQUEZO Start: 05-15-2018 EKG 12-LEAD HERNADEZ MICHELE YO Start: 05-15-2018 Radiologic exam ches t single view HERNADEZ BONYO Start: 05-15-2018 Blood count complete automated SATYA VASQUEZO Start: 05-15-2018 Comprehensive metabolic panel HERNADEZ BONYO Start: 05-15-2018 Prothrombin time SATYA BOYCE Start: 05-15-2018 Thromboplastin time partial plasma/whole blood SATYA BOYCE Start: 05-15-2018 TROPONIN SATYA BAUTISTA YO Start: 05-15-2018 POCT GLUCOSE SATYA BAUTISTA YO Start: 05-15-2018 SALINE LOCK IV SATYA SIFUENTES Start: 02-25-2018 Echocardiography Marisela Michel Start: 11-16-2016 APPLY CONTINUOUS CARDIORESPIRATORY MONITOR KAR STRICKLAND Start: 11-16-2016 Assay of troponin quantitative KAR STRICKLAND Start: 11-16-2016 Basic metabolic pane l calcium total KAR KEANEUSER Start: 11-16-2016 Blood count complete auto&auto difrntl wbc KAR KEANEUSER Start: 11-16-2016 Chest x-ray KARJAYRO KEY Start: 11-16-2016 DELIVER OXYGEN VIA N KARLA CANNULA KAR KEANEUSER Start: 11-16-2016 Ecg routine ecg w/le ast 12 lds trcg only w/o i&r KAR KEANEUSER Start: 11-16-2016 Fibrin dgradj produc ts d-dimer qual/semiquan KAR KEANEUSER Start: 11-16-2016 Hereditary retinal d srdrs gen seq analys 15 gen KAR KEANEUSER Start: 11-16-2016 INSERT PERIPHERAL IV ACCESS KAR KEANEUSER Start: 09-26-2009 Colonoscopy Cayetano albarado RT(R) Plan of Treatment Date Care Activity Detail Author Start: 2027 Pneumococcal vaccination Pneum ococcal Vaccine (3 of 3 - PPSV23 or PCV20) [facility] Start: 03-07-2025 DIABETES SCREEN DIABETES SCREEN [facility] Start: 03-07-2025 Diabetes Screening Diabetes Screenin g [facility] Start: 02-26-2025 DIABETES SCREEN DIABETES SCREEN [facility] Start: 12-12-2024 DIABETES SCREEN DIABETES SCREEN [facility] Start: 10-08-[address] [facility] Start: 08-10-2024 [address] S[address]EN LIPID SCREEN [facility] Start: 02-01-2024 COVID-19 Vaccine ( season) COVID-19 Vaccine ( season) [facility] Start: 02-01-2024 Influenza vaccination Influenza Vacc ine (#1) [facility] Start: 06-02-2023 Behavioral Health Screening Behavioral Health Screening [facility] Start: 05-16-2023 Lipid screen Lipid screen [place], [place] Start: 02-01-2023 Diabetes mellitus screening Diabetes Screening [facility] Start: 01-31-2023 Covid-19 Vaccine ( season) Covid-19 Vaccine ( season) [facility] Start: 01-31-2023 Influenza vaccination C [facility] Start: 06-02-2022 DEPRESSION ASSESSMENT DEPRESSION ASS ESSMENT [facility] Start: 2022 RSV Immunization for Adults (1 - Risk 60-74 years 1-dose series) RSV Immunization for Adults (1 - Risk 60-74 years 1-dose series) [facility] Start: 2022 RSV Vaccine (1 - 1-d ose 60+ series) RSV Vaccine (1 - 1-dose 60+ series) [facility] Start: 01-31-2022 Influenza vaccination INFLUENZA (#1) [facility] Start: 07-23-2021 COVID-19 VACCINE (4 - Booster for Pfizer series) COVID-19 VACCINE (4 - Booster for Pfizer series) [facility] Start: 06-02-2021 DEPRESSION ASSESSMENT DEPRESSION ASS ESSMENT [facility] Start: 05-17-2021 COVID-19 VACCINE (4 - Booster for Pfizer series) COVID-19 VACCINE (4 - Booster for Pfizer series) [facility] Start: 05-17-2021 Diabetes screen Diabetes screen [place], [place] Start: 01-27-2021 Creatinine measurement Creatinine Le gina [facility] Start: 01-27-2021 Potassium measurement Potassium Leve l [facility] Start: 11-08-2020 Creatinine measurement Creatinine mo nitoring [place], [place] Start: 11-08-2020 Potassium monitoring Potassium monit [place], [place] Start: 10-08-2020 Hepatitis B surface antibody level LDL Cholesterol [facility] Start: 08-10-2020 Hepatitis B surface antibody level LDL CHOLESTEROL [facility] Start: 06-21-2020 Creatinine monitoring Creatinine mon itoring [facility] Work Phone: Start: 06-21-2020 Potassium monitoring Potassium monit [facility] Work Phone: Start: 05-09-2020 Adult depression scr eening assessment DEPRESSION SCREENING [facility] Start: 05-06-2020 Creatinine monitoring Creatinine mon [place], [place] Start: 05-06-2020 Potassium monitoring Potassium monit [place], [place] Start: 2020 Creatinine monitoring Creatinine [place] Start: 2020 Potassium monitoring Potassium monit [place] Start: 03-09-2020 Creatinine monitoring Creatinine [place] Start: 03-09-2020 Potassium monitoring Potassium monit [place] Start: 02-01-2020 Influenza vaccination Flu vaccine (# 1) [place] Start: 01-13-2020 Creatinine monitoring Creatinine [place], [place] Start: 01-13-2020 Potassium monitoring Potassium monit [place] Start: 05-16-2019 Lipid panel Lipid screen [place], [place] Start: 05-16-2019 Lipid screen Lipid [place] Start: 01-31-2019 Influenza vaccination Flu vaccine (# 1) [place] Start: 11-17-2017 TSH Qn TSH testing [place] Start: 11-17-2017 TSH testing TSH testing [place] Start: 2017 PROSTATE CANCER SCRE ENING DISCUSSION PROSTATE CANCER SCREENING DISCUSSION [facility] Start: 2017 Prostate specific an tigen measurement Prostate Cancer Screening Discussion [facility] Start: 02-28-2017 PNEUMOCOCCAL (2 - PCV) PNEUMOCOCCAL (2 - PCV) [facility] Start: 02-28-2017 Pneumococcal Vaccine : 50+ Years (2 of 2 - PCV) Pneumococcal Vaccine: 50+ Years (2 of 2 - PCV) [facility] Start: 10-17-2014 COLORECTAL CANCER SCREENING COLORECTAL CANCER SCREENING [facility] Start: 10-17-2014 FECAL OCCULT BLOOD FECAL OCCULT BLOO D [facility] Start: 10-17-2014 Screening for malign ant neoplasm of colon [facility] Start: 2012 Colon cancer screen colonoscopy Colon cancer screen colonoscopy [place], [place] Start: 2012 Screening for malign ant neoplasm of colon Colon cancer screen colonoscopy [place], [place] Start: 2012 Shingles Vaccine (1 of 2) Carty gles Vaccine (1 of 2) [place] Start: 2012 SHINGRIX VACCINE (1 of 2) CARTY GRIX VACCINE (1 of 2) [facility] Start: 2012 Zoster Vaccines (1 of 2) Zoste r Vaccines (1 of 2) [facility] Start: 09-26-[address] [facility] Start: 09-26-2010 Screening for malign ant neoplasm of colon Colonoscopy [facility] Start: 2007 COLOGUARD (FIT-DNA) COLOGUARD (FIT-D NA) [facility] Start: [address] COLONOGRAPHY [facility] Start: 2007 Screening for malign ant neoplasm of colon [facility] Start: 2007 SIGMOIDOSCOPY SIGMOIDOSCOPY [facility] Start: 1981 DTaP/Tdap/Td vaccine (1 - Tdap) DTaP/Tdap/Td vaccine (1 - Tdap) [place] Start: 1981 DTaP/Tdap/Td Vaccine s (1 - Tdap) DTaP/Tdap/Td Vaccines (1 - Tdap) [facility] Start: [address] [facility] Start: 1980 ANNUAL PCP TEAM MARKETING PROJECT LEAD 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 ANNUAL PCP TEAM CHRONIC DISEASE VISIT [facility] Start: 1980 BP CONTROLLED (<130/80) BP CONTROLLE D (<130/80) [facility] Start: 1980 HEPATITIS C SCREENING HEPATITIS C [facility] Start: 1980 Hepatitis C screening Hepatitis C [facility] Start: 1980 HIV SCREENING HIV SCREENING [facility] Start: 1980 HIV screening HIV Screening [facility] Start: 1977 HIV screen HIV screen [place], [place] Start: 1977 HIV screening HIV screen [facility] [place] Start: 1974 [facility] Start: 1973 DTaP/Tdap/Td vaccine (1 - Tdap) DTaP/Tdap/Td vaccine (1 - Tdap) [place] Start: 1963 MMR Vaccines (1 of 1 - Standard series) MMR Vaccines (1 of 1 - Standard series) [facility] Start: 1962 Echocardiography Echocardiogram [facility] Start: 1962 Hepatitis C screen Hepatitis C deyvi trujillo [place], [place] Start: 1962 Hepatitis C screening Hepatitis C cherelle latham [place], [place] Start: 1962 HIV screening HIV Screening [facility] Start: 1962 Screening for malign ant neoplasm of colon [facility] Start: 1962 Thyroid stimulating hormone measurement TSH Level [facility] End: 01-13-2019 Add On Lab Test Add On Lab Test Lab Add-On One Time for 1 Occurrences starting 01/13/2019 until 01/13/2019 [place] Comment on above: One Time for 1 Occur rences starting 01/13/2019 until 01/13/2019 End: 05-07-2019 Cardiac Stress Test- W Pharm Cardiac Stress Test- W Pharm Cardiac Services Routine One Time for 1 Occurrences starting 05/07/2019 until 05/07/2019 [place] Comment on above: One Time for 1 Occur rences starting 05/07/2019 until 05/07/2019 End: 01-29-2020 CBC Auto Differential CBC Auto Differential Lab Routine Daily for 2 Days starting 01/28/2020 until 01/29/2020 [place] Comment on above: Daily for 2 Days sta rting 01/28/2020 until 01/29/2020 End: 01-30-2020 CBC Auto Differential CBC Auto Differential Lab Routine Daily for 2 Days starting 01/29/2020 until 01/30/2020 [place] Comment on above: Daily for 2 Days sta rting 01/29/2020 until 01/30/2020 CBC Auto Differential [place] Comment on above: Daily until disconti nued starting 06/18/2019, 2 completed End: 03-23-2019 CBC Auto Differential CBC Auto Differential Lab Routine Daily for 2 Days starting 2019 until 03/23/2019 [place] Comment on above: Daily for 2 [...] for 1 Occurrences starting 01/28/2020 until 01/28/2020 [facility] Comment on above: Tomorrow AM for 1 Oc currences starting 01/28/2020 until 01/28/2020 End: 01-29-2020 Comprehensive metabolic 2000 panel Comprehensive Metabolic Panel Lab Routine Tomorrow AM for 1 Occurrences starting 01/29/2020 until 01/29/2020 [facility] Comment on above: Tomorrow AM [...] Pain ECG STAT 01/12/2019 9:25 PM EDT [facility] End: 05-07-2019 Nasal Cannula Oxygen Nasal Cannula Oxygen Respiratory Care Routine As Needed until discontinued starting 05/07/2019 [facility] Comment on above: As Needed until disc ontinued starting 05/07/2019 End: 05-07-2019 Troponin x1 Troponin x1 Lab STAT One Time for 1 Occurrences starting 05/07/2019 until 05/07/2019 [facility] Comment on above: One Time for 1 Occur rences starting 05/07/2019 until 05/07/2019 Troponin x1 Troponin x1 Lab STAT 05/07/2019 7:02 AM EST [facility] SH[facility]ER 3V AP/Y VIEW/AXILLARY LEFT ([place]) XR SHOULDER 3V AP/Y VIEW/AXILLARY LEFT (AK) Radiology Routine Chronic left shoulder pain Ordered: 01/14/2023 [facility] Work Phone: Comment on above: Ordered: 01/14/2023 [facility] Immunizations Immunization Date Immunization Notes Care Provider Chaz rich 03-08-2019 influenza virus vacc ine, unspecified formulation Ja [facility] 02-29-2016 influenza, high dose seasonal, preservative-free Cayetano Braun RT(R) [facility] 02-29-2016 pneumococcal polysaccharide vaccine, 23 valent Cayetano Braun RT(R) [facility] 02-01-2012 influenza virus vacc ine, whole virus Cayetano Braun RT(R) [facility] Work Phone: 01-31-2011 influenza, seasonal, injectable Cayetano Braun RT(R) [facility] Work Phone: 01-31-2009 influenza virus vacc ine, whole virus Cayetano Braun RT(R) [facility] 01-31-2009 pneumococcal polysaccharide vaccine, 23 valent Cayetano Braun RT(R) [facility] Payers Date Payer Category Payer Self-pay [id number] 2022 Medicaid HMO [employer]HC MEDICAID ODM [id number] 2021 Medicaid [facility] MEDICAID [facility] COMM[employer]ITY [employer] MEDICAID [id number] 2021-Present [phone] [address] [place] [address] Medicaid [id number] 2021 Medicaid [id number] 2016 Unknown [facility] MEDICAID xxxxxxxxxxx 2016-Present [phone] CLAIMS DEPARTMENT [address] [place] [address] xxxxxxxxxxx [id number] 2016 Medicaid [id number] 1960 Unknown [id number] 1960 Unknown [id number] 1960 Unknown [id number] [id number] 1960 Unknown [id number] [id number] 1959 Unknown [id number] Unknown [id number] [id number] Unknown Unknown [id number] [id number] Unknown [id number] 2.16.840.1.265621.3.579.2.462 Unknown [id number] [id number] Unknown [id number] [id number] Unknown [id number] 2.16.840.1.073871.3.579.2.462 Unknown [id number] [id number]2 Unknown [id number] [id number] Unknown [id number] [id number] Unknown [id number] Social History Date Type Detail Facility Start: 05-17-2018 End: 06-16-2019 Tobacco smoking status DCIS Never smoker [facility] Start: 05-17-2018 End: 05-21-[address] [facility] Work Phone: Start: 12-22-2015 Alcohol Comment [facility] Start: 1960 Sex Assigned At Not on file [facility] Start: 05-07-2019 End: 05-21-2022 Alcohol intake Current non-drinker of alcohol (finding) [facility] [facility] Start: 01-30-2020 End: 02-26-2022 Tobacco use and exposure Never used [facility] [employer] Start: 12-02-2021 End: 12-12-2021 Exposure to SARS-CoV-2 (event) Not sure [facility] Start: 12-17-2019 History SDOH Financial 5 [facility] Start: 12-17-2019 History SDOH Food Worry 1 [facility] Start: 12-17-2019 History SDOH Transpo rt Med 2 [facility] Start: 02-26-2022 Tobacco smoking stat [facility] Ex-smoker [facility] End: 06-02-2000 History of tobacco use Current smoker [facility] End: 06-02-2000 History of tobacco use Cigarette Smoker [facility] Start: 02-26-2022 End: 06-24-2023 Alcohol intake Ex-drinker (finding) [facility] Start: 05-21-2022 End: 01-17-[address] [facility] Work Phone: How hard is it for y ou to pay for the very basics like food, housing, medical care, and heating Not hard at all [facility] Work Phone: (I/We) worried chad er (my/our) food would run out before (I/we) got money to buy more. Never true [facility] Work Phone: Start: 06-16-2019 End: 06-16-2019 Tobacco smoking status NHIS Unknown if ever smoked [facility] Start: 1960 Sex Assigned At Male W [facility] Start: 12-31-2021 End: 09-21-2024 Sex Male (finding) [facility] Clinical Notes 06-22-2019 to 05-18-2024 Telephone [...] months. Can refer to another GI office. [facility] 05-18-2024 Telephone encounter Note Anni called back in. Patient's referral is considered external. We would not be able to schedule him for at least 6 months. Can refer to another GI office. [facility] 05-18-2024 Miscellaneous Notes Anni called back [...] Patient's further questions if applicable: [facility] returned call to check the status of referral for patient. Informed Maria Elena that referral not yet in patient's chart for scheduling. Maria Elena can be reached at [phone] at [address] upon confirmation of referral received. Please advise. Were all questions from office addressed or relayed to the patient from encounter: Yes Name of caller: Maria Elena Contact phone number: [phone] Relationship to Patient: Benedicto Ross- [address] Provider: N/A Practice[place] [facility]: Chief Complaint/Reason for Call: Maria Elena [...] their call: No documented in this encounter [facility] 05-11-2024 Note Called and spoke elena Hutton. I advised her we do not have the referral still. She will update Maria Elena. [facility] 05-11-2024 Telephone encounter Note Called and spoke with Anni. I advised her we do not have the referral still. She will update Maria Elena. [facility] 05-10-2024 Telephone encounter Note Message released to patient as written. Patient's further questions if applicable: Maria Elena (Benedicto Ross) returned call to check the status of referral for patient. Informed Maria Elena that referral not yet in patient's chart for scheduling. Maria Elena can be reached at [phone] at [address] upon confirmation of referral received. Please advise. Were all questions from office addressed or relayed to the patient from encounter: Yes [facility] [employer] 05-03-2024 Telephone encounter Note Name of caller: Maria Elena Contact phone number: [phone] Relationship to Patient: Benedicto Ross- [address] Unit Provider: N/A Practice: [facility]: Chief Complaint/Reason for Call: Maria Elena [...] business hours to return their call: No [facility] [employer] 12-10-2023 Telephone encounter Note The number listed is ringing in as a fax #. Loraine Song [facility] 12-10-2023 Miscellaneous Notes The number listed is ringing in as a fax #. Loraine Song Annamaria from Central Scheduling left voicemail stating patient would like to schedule appointment. Please call patient at [phone] to schedule appointment. documented in this encounter [facility] 12-09-2023 Telephone encounter Note Annamaria from Central Scheduling left voicemail stating patient would like to schedule appointment. Please call patient at [phone] [facility] 11-22-2022 Miscellaneous Notes Called patient about their No Show appointment with the clinic on 11/22. Patient requested to reschedule their appointment. Rescheduled patient to 12/13. documented in this encounter [facility] 11-20-2022 Miscellaneous Notes Called patient to remind them about their appointment with the clinic on 11/22 . Patient confirmed appointment. documented in this encounter [facility] 08-26-2022 Note HNO ID: [id number] Author: Mainor Francisco MD Service: ? Author Type: Physician Type: Progress Notes Filed: 08/26/2022 3:26 PM Note Text: ?I was the supervising attending for this patient at today's clinic.? Mainor Francisco MD [facility] 08-23-2022 Note HNO ID: [id number] Author: Hemanth Kennedy MD Service: ? Author [...] mobility with his left shoulder. Is prescribed [place] and tramadol by his nursing facility. Pain [...] degr (more content not included)... [facility] 08-21-2022 Miscellaneous Notes Called patient to remind them about their appointment with the Clinic on 08/23. Patient confirmed appointment. documented in this encounter [facility] 08-02-2022 Miscellaneous Notes Called patient to schedule an appointment for a left shoulder referral. Scheduled patient for 08/23. documented in this encounter [facility] 04-12-2022 Miscellaneous Notes OK thank you. Lorenza Cooper, RN Missed appt letter returned regarding 03/04/2022 appt. Post Office states "Attempted, Return to Sender - Unable to Forward". Also called pt to leave message but phone number not in service. documented in this encounter [facility] 12-13-2021 History of Presen t illness [...] AM PAGER/CONTACT #: documented in this encounter [facility] 12-11-2019 History of Past i llness [...] of this encounter (statuses as of 12/13/2021) [facility] History of Past illness Narrative* Problem [...] of this encounter (statuses as of 02/26/2022) [facility] History of Past illness Narrative* Problem [...] of this encounter (statuses as of 02/27/2022) [facility] of Past illness Narrative* Problem [...] of this encounter (statuses as of 04/12/2022) [facility] of Past illness Narrative* Problem [...] of this encounter (statuses as of 08/02/2022) [facility] of Past illness Narrative* Problem [...] of this encounter (statuses as of 08/21/2022) [facility] of Past illness Narrative* Problem [...] of this encounter (statuses as of 11/20/2022) [facility] History of Past illness Narrative* Problem [...] of this encounter (statuses as of 11/22/2022) [facility] History of Past illness Narrative* Problem [...] of this encounter (statuses as of 01/21/2023) [facility] History of Present illness Narrative* Lisa Calero MA - 08/15/2019 1:50 PM EDTSummary: old cardiac testing from [facility] Lexiscan EKG Study Date: 08/11/19 Summary: Stress test EKG portion report: Reason for study: Chest pain, TIA 2012, coronary artery disease with IL 2005, pulmonary embolus, hypertension, hyperlipidemia, anemia, chronic [...] pain, TIA 2012, coronary artery disease with IL 2005, pulmonary embolus, hypertension, hyperlipidemia, anemia, chronic [...] Physician: NO PCP GIVEN Performed By: [facility] PATIENT NAME: NATALIE GERBER [address] [facility] [address] MEDICAL REC #: [id number] [place] [address] ADMIT DATE: 08/10/19 DISCHARGE DATE: ATTENDING PHY: Lisa Montez DO ECHOCARDIOGRAM REPORT documented in this encounterCleveland [id number] Hospital course Narrative * Satya Boyce DO - 06/24/2019 10:03 AM EST Addendum dictated documented in this encounterSUMMA Work Phone: [phone] History of Present illness Narrative* Dominga Villela DTR - 06/24/2019 7:22 AM EST Nutrition update completed. Chart reviewed. Patient to be monitored and followed by the diet assembly technician. * Melvin Hardin RN - 06/24/2019 1:07 AM EST Pt refused lab work. Dr. Boyce notified * Nereida Ricks, PT - 06/23/2019 11:47 AM EST Physical Therapy Facility/Department: [facility] 5E MED SURG Daily Treatment Note NAME: Natalie Gerber : 1960 Date of Service: 06/23/2019 Discharge Recommendations: Subacute/Assisted Facility Assessment Body structures, Functions, Activity limitations: [...] History of pulmonary embolus (PE), Hyperlipidemia, Hypertension, IL, old, Myocardial infarct (HCC), myocardial infarction, LISA [...] BID Radha Lujan RN 20 mg at 06/21/19 1710 sodium chloride flush 0.9 % injection 3 mL 3 mL Intravenous Q8H Arian Dimas MD 3 mL at 06/22/19 0432 aspirin EC tablet 81 mg 81 mg Oral Daily Hernadez S Pedroo, DO 81 mg at 06/21/19 0836 atorvastatin (LIPITOR) tablet 20 mg 20 mg Oral Nightly Hernadez S Pedroo, DO 20 mg at 06/21/19 2028 acetaminophen (TYLENOL) tablet 650 mg 650 mg Oral Q4H PRN Hernadez S Pedroo, DO carvedilol (COREG) tablet 6.25 mg 6.25 mg Oral Daily Hernadez S Pedroo, DO 6.25 mg at 06/21/19 0836 citalopram [...] Hernadez S Bonyo, DO 100 mg at 06/21/198 enoxaparin (LOVENOX) injection 40 mg 40 mg [...] 1960 Date of Service: 06/21/2019 Discharge Recommendations: Subacute/Assisted Facility Assessment Performance deficits / Impairments: Decreased [...] History of pulmonary embolus (PE), Hyperlipidemia, Hypertension, IL, old, Myocardial infarct (HCC), myocardial infarction, LISA [...] SNF on 06/16/2019, [facility] [place] [facility] of [employer] after L LE giving out on him [...] Plan of Care [facility]. Goals and/or treatment plan was established in collaboration with patient/family/other representatives. Plan to be activated only if the patient is admitted or for assessing discharge needs. OutComes Score [facility] Daily Activity Inpatient How much help for [...] How much help for eating meals?: None [facility] Inpatient Daily Activity Raw Score: 19 AM-PAC [...] tablet 81 mg 81 mg Oral Daily Sayta Boyce DO 81 mg at 06/20/19 0913 atorvastatin (LIPITOR) tablet 20 mg 20 mg Oral Nightly Satya Boyce DO 20 mg at 06/20/19 214 acetaminophen (TYLENOL) tablet 650 mg 650 mg [...] S Bonyo, DO 40 mg at 06/20/19 09 promethazine (PHENERGAN) injection 12.5 mg 12.5 mg [...] Order Interval History: Admitted [facility]p [place] [facility] Chart reviewed and d/w staff [...] WC Radha Lujan, RN 20 mg at 06/20/19912 sodium chloride flush 0.9 % injection 3 mL 3 mL Intravenous Q8H Arian Dimas MD 3 mL at 06/19/192026 aspirin EC tablet 81 mg 81 mg Oral Daily Satya Boyce DO 81 mg at 06/20/19912 atorvastatin (LIPITOR) [...] be monitored and followed by the diet assembly technician. * Satya Boyce DO - 06/19/2019 8:30 AM EST Hospitalist Progress Note Subjective: Admit Date: PCP: SATYA BOYCE DO Advance Directive: No Order Interval History: Admitted s/p fall [facility] Chart reviewed and d/w staff [...] WC Radha Lujan RN 20 mg at 06/18/19 [...] Hernadez S Bonyo, DO 5 mg at 06/19/198 QUEtiapine (SEROQUEL) tablet 100 mg 100 mg [...] Discharge planning: Pending/complicated SATYA BOYCE DO * Nereida Hill RN - 06/18/2019 10:34 AM EST [...] 1960 Date of Service: 06/18/2019 Discharge Recommendations: Subacute/Assisted Facility Assessment Body structures, Functions, Activity limitations: [...] (coronary artery disease), CHF (congestive heart failure) ([facility]), Depression, Diverticulitis, Diverticulosis, GERD (gastroesophageal reflux disease), History of pulmonary embolus (PE), Hyperlipidemia, Hypertension, IL, old, Myocardial infarct ([facility]), myocardial infarction, LISA on CPAP, Pain, Pneumonia, Suicide ([facility]), Thyroid disease, and Unspecified cerebral artery occlusion [...] light within reach, Gait belt AM-PAC Score AM-PAC Inpatient Mobility Raw Score : 13 (06/18/19932) AM-PAC Inpatient T-Scale Score : 36.74 (06/18/19932) Mobility [...] physician. documented in this encounterSUMMA Work Phone: [phone]) 873-751601-21-2020 Hospital Discharge instructions* Discharge Instr - EDUARDO* [...] Discharging Nurse: Daniela Bowling Discharging Hospital Unit/Room#: 1506/198380 Discharging Unit Emergency Contact: Extended Emergency Contact Information Primary Emergency Contact: Jamel Gerber Address: [address] [place] [address] Relation: Spouse Past Surgical History: Past Surgical [...] E78.5 Morbid obesity (HCC) E66.01 Mood disorder ([facility]) F39 Chronic back pain M54.9, G89.29 Chest pain R07.9 HTN (hypertension) I10 HLD (hyperlipidemia) E78.5 Obesity E66.9 Tobacco abuse Z72.0 MDD (major depressive disorder) F32.9 Meralgia paresthetica of left side G57.12 Stroke-like symptoms R29.90 Anemia D64.9 Leukocytosis D72.829 History of stroke Z86.73 AVN (avascular necrosis of bone) ([facility]) M87.00 Back pain M54.9 Recurrent falls R29.6 [...] Independent Dressing Independent Toileting Independent Feeding Independent Firer Kiln Assisted Med Delivery whole Wound Care Documentation [...] select all that are sent with patient): dana clotheswalker, clothes RN SIGNATURE: MANAGEMENT/SOCIAL WORK SECTION Inpatient Status Date: OBS Readmission Risk Assessment Score: Readmission Risk Risk of Unplanned Readmission: 20 Discharging to Facility/ Agency Name: [facility] Address:[address] [place] [address], [place], [place] Dialysis Facility (if applicable) Name: Address: Dialysis Schedule: Phone: Fax: Cardiology Specialist/Clothing Manager signature: ICIAN SECTION Prognosis: fair Condition at [...] H&P: no PHYSICIAN SIGNATURE: [facility] Work Phone: Evaluation note* Diagnosis Sciatica of left side- Primary Sciatica Recurrent falls Personal history of fall Mood disorder (HCC) Unspecified episodic mood disorder [facility] Work Phone: Evaluation note* Diagnosis Chronic left shoulder pain- Primary Pain in joint, shoulder region [facility] noteNo assessment information availableWSt. Elizabeth Hospital Work Phone: Reason for referral (narrative)* Diagnostic Procedure Only (Routine) - Pending Review Specialty Diagnoses / Procedures Referred By Brittney t Referred To Contact XR IMAGING Diagnoses Chronic left shoulder pain Procedures XR SHOULDER 3V AP/Y VIEW/AXILLARY LEFT (AK) RADEX SHOULDER COMPLETE MINIMUM 2 VIEWS Chris Burton MD [address] [place] [address] [place] [address] Referral ID Status Reason Start Date Expiration Date Visits Requested Visits Authorized [id number] Pending Review Auto-Generat ed Referral 01/14/2023 02/13/2024 1 1 [facility] for referral (narrative)No reason for referral information availableWSt. Elizabeth Hospital Work Phone: Summary Purpose Family History [...] FoundDocuments on File Type Date Recorded Patient Acetone Button Paster Expl anation Advance Directives and Livin g Will Advance Directives and Livin g Will 09/25/2012 10:39 AM Advance Directives and Livin g Will 10/02/2012 10:47 AM Advance Directives and Livin g Will 02/11/2013 3:20 PM Advance Directives and Livin g Will 02/20/2013 6:43 PM Advance Directives and Livin g Will 02/21/2013 11:14 AM Power of Curriculum Supervisor Latest Code Status on File Code Status Date Activated Date Inactivated Comments Full Code 11/17/2016 3:42 PM 11/20/2016 10:42 PM Full Code 11/17/2016 3:03 PM 11/17/2016 3:42 PM Full Code 09/24/2016 9:24 PM 09/26/2016 2:53 PM Full Code 11/10/2015 1:30 AM 11/13/2015 12:28 PM Full Code 05/23/2014 11:46 PM 05/24/2014 4:14 PM Documents on File Type Date Recorded Patient Acetone Button Paster Expl anation ACP-Advance Directive ACP-Advance Directive 09/25/2012 10:39 AM ACP-Advance Directive 10/02/2012 10:47 AM ACP-Advance Directive 02/11/2013 3:20 PM ACP-Advance Directive 02/20/2013 6:43 PM ACP-Advance Directive 02/21/2013 11:14 AM ACP-Power of Curriculum Supervisor Documents on File Type Date Recorded Patient Acetone Button Paster Expl anation Advance Directive(s) Advance Directive(s) 12/11/2021 [...] Will No June 16 6:14pm Power of Curriculum Supervisor No June 16, 2019 6:14pm Advance Directive Response Recorded Date/ Time Living Will No June 16 7:14pm Power of Curriculum Supervisor No June 16, 2019 7:14pm Date Activated [...] Order Discussed With: Patient Hospital Course Note [facility] Patient: NATALIE GERBER [address] MR#: [id number] [place], [place] [address] : 1960 OrdMilton Murray: Dept: PDOC Loc: 9 934-1 Discharge Summary Service Dt: 02/26/18 Report#: [id number] Adm Dt: 02/24/18 Dis Dt: Discharge Summary - Principal/Other Diagnoses (1) Facial paresthesia Status: Acute (2) Arm paresthesia, left Status: Acute (3) DVT prophylaxis Status: Acute (4) Dyspnea Status: Acute (5) Morbid obesity Status: Acute (6) Diabetes Status: Chronic Qualifiers: Diabetes mellitus type: type 2 Diabetes mellitus extermination inspector insulin use: without intermediate use (7) CHF exacerbation Status: Suspected Qualifiers: Heart failure type: unspecified Qualified Code(s): I50.9 - Heart failure, unspecified (8) Chronic back pain Status: Chronic Qualifiers: Back pain location: back pain in unspecified location Back pain laterality: midline Qualified Code(s): M54.9 - Dorsalgia, unspecified (9) GERD (gastroesophageal reflux dis (more content not included)... Note HNO ID: [id number]: [facility]) Sarabjit: General Internal MedicineAuthor Type: Nurse PractitionerType: Discharge SummariesFiled: 06/09/2018 2:23 PMNote Text: DISCHARGE SUMMARYPATIENT NAME: Natalie Gerber Code Status: Not on fileMRN: [id number] Readmission Risk Score: 15 The 30 day [...] S Note Recipients: Satya Boyce MD - [id number] [] Discharge: Summary: Admission Date: .12-Dec-2018 16:39:00 Discharge Date: 18-Dec-2018 Admission Reason: back pain, inability to ambulate(1) Final Discharge Diagnoses: Benign essential hypertension, Coronary artery disease, H/O spinal fusion, History of total left hip replacement, Morbid obesity with BMI of 50.0-59.9, adult, Stroke, Procedures: none Condition at Discharge: stable Disposition at Discharge: [facility] Vital Signs: T PRBPSpO2 Value36.27605596/6897% Date/Time12/18 6: 6: 6: 6: 6:00 Range(36C - 36.3C ) (69 - 75 ) (18 - 18 ) (101 - 116 )/ (65 - 68 ) (95% - 97% ) Hospital Course: Mr. Gerber is a 58 y/o with PMH of multilevel Spondylosis, CAD last [facility] 12/01/2018 (clean) hx of IL, hx of PE 99, ADHD, CVA s/p TPA 2014, PE, CHF, GERD, [facility] with worsening Back pain. he (more content not included)... Note Patient: NATALIE GERBER MR N: [id number] Age: 58 years Sex: Male : 1960 Associated Diagnoses: None Author: JUSTIN LUCERO, [facility] Hospital Course Admitted from: from home. She [...] included)... Note Patient: NATALIE GERBER MR N: [id number] Age: 59 years Sex: Male : 1960 Associated Diagnoses: None Author: ALLEGRA LUCERO, [facility] Hospital Course 59-year-old male with inability to ambulate and severe pain on his chronic back. Unclear what causes acute exacerbation. Discussed with patient and emergency dept tech. Export filled out and we are waiting for transfer to jail Discharge disposition : ECF Discharge diagnosis : [...] content not included)... Note Send Summary: Discharge [facility] Providers: Provider RoleProvider Name Chuy Bauman Jamie PrimaryBonyo, Benson S Note Recipients: Satya Boyce MD - [id number] [] Discharge: Summary: Admission Date: .26-Mar-2019 20:58:00 Discharge Date: 27-Mar-2019 Attending Physician at Discharge: Chuy Mc Admission Reason: chest pain Final Discharge Diagnoses: Anemia, Chest pain, Morbid obesity with BMI of 50.0-59.9, adult, Procedures: Low risk cardiac protocol Condition at Discharge: Satisfactory Disposition at Discharge: .Home Vital Signs: T PRBPSpO2 [id number]/7296% Date/Time03/27 8: 8: 8: 8: 8:00 Range(36C [...] content not included)... Note Send Summary: Discharge [facility] Providers: Provider RoleProvider Name ReferringServando Hernández Thomas ConsultingAmerican Healthcare SystemsAmrit Benson S Note Recipients: Satya Boyce MD - [id number] [] Servando Hernández MD Discharge: Summary: Admission Date: .08-Oct-2019 13:30:00 Discharge Date: 12-Oct-2019 Attending Physician at Discharge: Chuy Mc Admission Reason: Chest pain(1) Final Discharge Diagnoses: Benign essential hypertension, Chest pain, Coronary artery disease, H/O spinal fusion, History of cholecystectomy, Morbid obesity with BMI of 50.0-59.9, adult, Potential for self care deficit, Pulmonary embolism, Procedures: none Condition at Discharge: Fair Disposition at Discharge: Assisted Facility Vital Signs: T PRBPSpO2 [id number]/6597% Date/Time10/11 16: 16: 16: 16: 16:00 Range(36.1C [...] to spinal stenosis, who presented from the half-way or he is not very clear where [...] Care Everywhere. * Edema: Leg and Ankle (Cymro) documented in this encounter* Instructions* Brandon Dahl MD - 02/17/2019 Use your pain medications at home as needed. Expect slow but steady improvement. Call your doctor today to make follow-up appointment. * Attachments The following attachments cannot be sent through Care Everywhere. * Sciatica (Cymro) documented in this encounter* Discharge Instr - [...] at most local grocery stores, pharmacies, and [place]. ? If you have any questions about [...] Nurse: Renetta Max RN Discharging Hospital Unit/Room#: 1533/518591 Discharging Unit Emergency Contact: Extended Emergency Contact Information Primary Emergency Contact: BuzzJamel Address: [address] [place] [address] Relation: Spouse Past Surgical History: Past Surgical [...] stroke Z86.73 AVN (avascular necrosis of bone) ([facility]) M87.00 Isolation/Infection: Isolation No Isolation Nurse Assessment: [...] Assisted Dressing Assisted Toileting Assisted Feeding Independent Firer Kiln Independent Med Delivery none Wound Care Documentation [...] Readmission: 14 Discharging to Facility/ Agency Name: [facility] Address:[address] [place] [address] Dialysis Facility (if applicable) Name: Address: Dialysis Schedule: Phone: Fax: Cardiology Specialist/Clothing Manager signature: ICIAN SECTION Prognosis: fair Condition at Discharge: stable Rehab Potential (if transferring to Rehab): fair Recommended Labs or Other Treatments After Discharge: cbc/cmp Physician Certification: I certify the above information and transfer of Natalie Gerber is necessary for the continuing treatment of the diagnosis listed and that he requires Assisted Facility for less 30 days. Update Admission [...] Contact Information Primary Emergency Contact: BuzzJamel Address: [address] [place] [address] Relation: Spouse Past Surgical History: Past Surgical [...] Independent Dressing Independent Toileting Independent Feeding Independent Firer Kiln Independent Med Delivery whole Wound Care Documentation [...] Readmission: 0 Discharging to Facility/ Agency Name: [facility]. Address: [facility] [place] [address] Dialysis Facility (if applicable) Name: Address: Dialysis Schedule: Phone: Fax: Cardiology Specialist/Clothing Manager signature: PHYSICIAN SECTION Prognosis: Fair Condition at Discharge: Stable Rehab Potential (if transferring to Rehab): fair Recommended Labs or Other Treatments After Discharge: cbc/cmp in 5 days Physician Certification: I certify the above information and transfer of Natalie Gerber is necessary for the continuing treatment of the diagnosis listed and that he requires Assisted Facility for greater 30 days. Update Admission [...] Information Primary Emergency Contact: Jamel Gerber Address: [address] [place] [address] Relation: Spouse Past Surgical History: Past Surgical [...] MENTAL STATUS:} IV Access: { EDUARDO IV ACCESS:790204189} Nursing Mobility/ADLs: Walking {CHP DME ADLs:578713013} Transfer {CHP DME ADLs:220014826} Bathing {CHP DME ADLs:275490575} Dressing {CHP DME ADLs:282900785} Toileting {CHP DME ADLs:745447124} Feeding {CHP DME ADLs:402249030} Firer Kiln {[facility] DME ADLs:004002366} Med Delivery { EDUARDO MED Delivery:039452821} Wound Care Documentation and Therapy: Elimination: Continence: Bowel: {YES / NO:} Bladder: {YES / NO:} Urinary Catheter: {Urinary Catheter:012119408} Colostomy/Ileostomy/Ileal Conduit: {YES / NO:} Date of Last BM: No intake or output data in the 24 hours ending 03/22/19 1346 No intake/output data recorded. Safety Concerns: { EDUARDO Safety Concerns:598009942} Impairments/Disabilities: { EDUARDO Impairments/Disabilities:383176273} Nutrition Therapy: Current Nutrition Therapy: { EDUARDO Diet List:939444228} Routes of Feeding: {[facility] DME Other Feedings:270533676} Liquids: {[facility] liquid thickness:31819} Daily Fluid Restriction: {[facility] DME Yes amt example:006471169} Last Modified Barium Swallow with Video (Video Swallowing Test): {Done Not Done Date:366465931} Treatments at the Time of Hospital Discharge: Respiratory Treatments: Oxygen Therapy: {Therapy; copd oxygen:54994} Ventilator: {[facility] Vent List:591363040} Rehab Therapies: {THERAPEUTIC INTERVENTION:8675098060} Weight Bearing Status/Restrictions: {[facility] Weight Bearin} Other Medical Equipment (for information only, NOT a DME order): {EQUIPMENT:426094881} Other Treatments: Patient's personal belongings (please select all that are sent with patient): {[facility] DME Belongings:353378394} RN SIGNATURE: {Esignature:640891446} CASE MANAGEMENT/SOCIAL WORK SECTION Inpatient Status Date: observation Readmission Risk Assessment Score: Readmission Risk Risk of Unplanned Readmission: 19 Discharging to Facility/ Agency Name: [facility] Address:[address] [place] [address] [place] [address] Dialysis Facility (if applicable) Name: Address: Dialysis Schedule: Phone: Fax: Cardiology Specialist/Clothing Manager signature: at1:47 PM PHYSICIAN SECTION Prognosis: fair Condition at Discharge: stable Rehab Potential (if transferring to Rehab): fair Recommended Labs or Other Treatments After Discharge: cbc/cmp in 5 days Physician Certification: I certify the above information and transfer of Natalie Gerber is necessary for the continuing treatment of the diagnosis listed and that he requires Assisted Facility for less 30 days. Update Admission [...] Satya Francisco Bonyo, DO 75 mg at 03/11/19 0843 furosemide (LASIX) tablet 20 mg 20 mg Oral Daily Satya Francisco Bonyo, DO 20 mg at 03/11/19 0844 levothyroxine (SYNTHROID) tablet 25 mcg 25 mcg Oral Daily Satya Vasquezo, DO 25 mcg at 03/10/19 0616 lisinopril (PRINIVIL;ZESTRIL) tablet 2.5 mg 2.5 mg Oral Daily Satya Francisco Bonyo, DO 2.5 mg at 844 nitroGLYCERIN (NITROSTAT) SL tablet 0.4 mg 0.4 mg Sublingual Q5 Min PRN Satya Francisco Bonyo, DO pantoprazole (PROTONIX) tablet 40 mg 40 mg Oral QAM AC Satya Francisco Bonyo, DO 40 mg at 03/11/19 0844 oxyCODONE (ROXICODONE) immediate release tablet 5 mg 5 mg Oral Q6H PRN Satya Vasquezo, DO 5 mg at 03/11/19 0309 enoxaparin (LOVENOX) injection 40 mg 40 mg Subcutaneous Daily Satya Vasquezo, DO 40 mg at 03/11/19 0843 methylphenidate (RITALIN) tablet 10 mg 10 mg Oral BID WC Satya Francisco Bonyo, DO 10 mg at 03/11/19 0843 carvedilol (COREG) tablet 12.5 mg 12.5 mg Oral Daily Darion Humphrey MD 12.5 mg at 03/11/19 0843 Allergies Allergen Reactions Fish-Derived Products Ketorolac Tromethamine Nubain [Nalbuphine Hcl] Nubain [Nalbuphine Hcl] Date 03/11/19 0000 - 03/11/192358 Shift 9811-9494 6764-0695 3353-6457 24 Hour Total INTAKE P.O.(mL/kg/hr) 300(0.3) 0 [...] Problems Hypertension >>Meds Reevaluate). SIGNATURE: Darion Humphrey MD,FACC,FASNC,CCDS;[facility] PATIENT NAME: Natalie Gerber DATE: 03/11/2019 PAGER: [phone] * Yoselin Max RN - 03/11/2019 9:20 [...] 25 mcg 25 mcg Oral Daily Satya Francisco Bonyo, DO 25 mcg at 03/10/19 0616 lisinopril (PRINIVIL;ZESTRIL) tablet 2.5 mg 2.5 mg Oral Daily Satya Francisco Bonyo, DO 2.5 mg at 849 nitroGLYCERIN (NITROSTAT) SL tablet 0.4 mg 0.4 mg Sublingual Q5 Min PRN Hernadez S Bonyo, DO pantoprazole (PROTONIX) tablet 40 mg 40 mg Oral QAM AC Satya Francisco Bonyo, DO 40 mg at 03/10/19 0613 oxyCODONE (ROXICODONE) immediate release tablet 5 mg 5 mg Oral Q6H PRN Satya Francisco Bonyo, DO 5 mg at 03/10/19 0848 enoxaparin (LOVENOX) injection 40 mg 40 mg Subcutaneous Daily Satya Vasquezo, DO 40 mg at 03/09/19 0150 methylphenidate (RITALIN) tablet 10 mg 10 mg Oral BID WC Satya Francisco Bonyo, DO 10 mg at 03/10/19 0848 carvedilol (COREG) tablet 12.5 mg 12.5 mg Oral Daily Darion Humphrey MD 12.5 mg at 03/10/19 0850 Allergies Allergen Reactions Fish-Derived Products Ketorolac Tromethamine Nubain [Nalbuphine Hcl] Nubain [Nalbuphine Hcl] Date 03/10/19 0000 - 03/10/19 2359 Shift 6022-2623 5034-9550 2268-3462 24 Hour Total INTAKE Shift Total(mL/kg) OUTPUT [...] (!) 323 lb 6.2 oz (146.7 kg), YeT417 %. Vital signs are normal. Output: Producing [...] PATIENT NAME: Natalie Gerber DATE: 03/10/2019 PAGER: [phone] * Dominga Villela DTR - 03/10/2019 8:59 AM EDT Nutrition rescreen completed. Chart reviewed. Patient to be monitored and followed by the diet assembly technician. * Jyotsna Copeland - 03/09/2019 2:19 PM EDT Physical Therapy Facility/Department: [facility] TELEMETRY Initial Assessment NAME: Natalie Gerber : 1960 Date of Service: 03/09/2019 Discharge Recommendations: Continue to assess pending progress, Subacute/Assisted Facility Assessment Body structures, Functions, Activity limitations: [...] (coronary artery disease), CHF (congestive heart failure) ([facility]), Depression, Diverticulitis, Diverticulosis, GERD (gastroesophageal reflux disease), History of pulmonary embolus (PE), Hyperlipidemia, Hypertension, IL, old, Myocardial infarct (HCC), myocardial infarction, LISA on CPAP, Pain, Pneumonia, Suicide ([facility]), Thyroid disease, and Unspecified cerebral artery occlusion [...] Gardening: Total Driving: Total Shopping: Other (comment) Director Dance: Other (comment) Homemaking Responsibilities: No Ambulation Assistance: Needs assistance Transfer Assistance: Needs assistance Active Ibm Mainframe Developer: No Patient's Ibm Mainframe Developer Info: INSURANCE OR FAMILY Education: NA Occupation: On disability Type of occupation: NA Leisure & Hobbies: NA IADL Comments: NEEDS ASSIST WITH ADLS- IADLS- Additional Comments: is ECF but at [facility]- currently as patient - [facility]- he has HARVEY vance Cognition Objective AROM [...] 1409) AM-PAC Inpatient T-Scale Score : 39.45 (03/09/19 1409) Mobility Inpatient CMS 0-100% Score: 57.7 [...] with supervision. Short term goal 5: Independently fiber picker object from ground while standing. Patient Goals [...] be monitored and followed by the diet assembly technician. * Elida Zuluaga MD - 05/08/2019 [...] AC, Elida Zuluaga MD, 40 mg at 614 oxyCODONE (ROXICODONE) immediate release tablet 5 mg, [...] 72 hours. Invalid input(s): PT Recent Labs 05/06/19 2040 05/07/19 0702 TROPONINI <0.012 <0.012 Objective: Vitals: Vitals: 05/07/19 1740 05/07/19 1940 05/07/19 2259 05/08/19 0847 BP: 123/79 (!) 143/89 (!) 118/51 Pulse: 83 79 85 77 Resp: 18 18 Temp: 97 F (36.1 C) 97.1 F [...] 05/07/2019 11:09 AM EST [facility] Initial Assessment NAME: Natalie Gerber : 1960 Date of Service: 05/07/2019 Discharge Recommendations: Subacute/Assisted Facility Assessment Body structures, Functions, Activity limitations: [...] (coronary artery disease), CHF (congestive heart failure) ([facility]), Depression, Diverticulitis, Diverticulosis, GERD (gastroesophageal reflux disease), History of pulmonary embolus (PE), Hyperlipidemia, Hypertension, IL, old, Myocardial infarct ([facility]), myocardial infarction, LISA on CPAP, Pain, Pneumonia, Suicide ([facility]), Thyroid disease, and Unspecified cerebral artery occlusion [...] Pt reports he just got discharged from half-way without his pain meds and developed increased [...] Assistance: Needs assistance Transfer Assistance: Independent Active Ibm Mainframe Developer: No Patient's Ibm Mainframe Developer Info: Family or insurance provides rides Mode [...] reach(Pt left sitting EOB) G-Code OutComes Score [facility] Score [facility] Inpatient Mobility Raw Score : 18 (05/07/191100) [facility] Inpatient T-Scale Score : 43.63 (05/07/191100) Mobility [...] EDT Report called to Shy PALACIO at [facility]. Patient to be transferred at 1700. * Raina Ferro RN - 01/31/2020 12:02 PM EDT Attempted to call [facility] to give report. Was placed on hold for an extended period of time. Will attempt again. * Raina Ferro RN - 01/31/2020 11:[address] Boyce patient to be transferred to [facility] today at 1430. He stated to have [...] 01/30/2020 2:21 PM EDT Physical Therapy Facility/Department: [facility] CDU Daily Treatment Note NAME: Natalie Gerber : 1960 Date of Service: 01/30/2020 *N95 mask, goggles, gown and gloves worn by this PT throughout pt encounter* Discharge Recommendations: Subacute/Assisted Facility Assessment Body structures, Functions, Activity limitations: [...] History of pulmonary embolus (PE), Hyperlipidemia, Hypertension, IL, old, Myocardial infarct (HCC), myocardial infarction, LISA [...] LLE) Vital Signs Patient Currently in Pain: Yes(610 low back to LLE) Cognition Cognition Overall [...] 1420) Mobility Inpatient CMS 0-100% Score: 64.91 (01/30/20 1420) Mobility Inpatient [facility] G-Code Modifier : CL (01/30/20 142) Goals Short term goals Time Frame for [...] mg, 80 mg, Oral, Nightly, Danielle Sanderson MD, 80 mg at promethazine (PHENERGAN) [...] 1960 Date of Service: 01/30/2020 Discharge Recommendations: Subacute/Assisted Facility Assessment Performance deficits / Impairments: Decreased [...] (coronary artery disease), CHF (congestive heart failure) ([facility]), Depression, Diverticulitis, Diverticulosis, GERD (gastroesophageal reflux disease), History of pulmonary embolus (PE), Hyperlipidemia, Hypertension, IL, old, Myocardial infarct (HCC), myocardial infarction, LISA [...] Comments: Pt presents after being d/c'd from [facility] one day prior to admit to [facility]. Patient Currently in Pain: Yes(low back and radiates down Left LE (especially when weight bearing) -09/09) Social/Functional History Social/Functional History Lives With: Spouse Type of Home: (Recent d/c from [facility].....states back in May he was staying with [...] assistance(uses rolator) Transfer Assistance: Needs assistance Active Ibm Mainframe Developer: No Occupation: On disability Additional Comments: Per pt, at SNF he was supervision with ADL's, supervision with transfers and amb with a rollator. Pt states his is a long time resident of [facility] x 9 years. (They don'ttake the pt's [...] all the time.) Cognition Overall Cognitive Status: WF Sensation Overall Sensation Status: ((+) numbness & [...] much help for eating meals?: A Little [facility] Inpatient Daily Activity Raw Score: 18 [facility] Inpatient ADL T-Scale Score : 38.66 ADL Inpatient CMS 0-100% Score: 46.65 ADL Inpatient CMS G-Code Modifier : CK AM-PAC Score AM-PAC Inpatient Daily Activity Raw Score: 18 (01/30/20 1044) AM-PAC Inpatient ADL T-Scale Score : 38.66 (01/30/20 104) ADL Inpatient CMS 0-100% Score: 46.65 (01/30/20 1044) ADL Inpatient CMS G-Code Modifier : CK (01/30/20 104) Goals Short term goals Time Frame for [...] Plan of Care supervision is transferred to [facility] Occupational Therapist. This provider wore an N95, [...] Daily, Satya Boyce DO, 81 mg at 01/29/20 0902 clopidogrel (PLAVIX) tablet 75 mg, 75 mg, [...] PRN, Hernadez S Bonyo, DO, 12.5mg at 08/27/20 2100 [COMPLETED] Saline lock IV, , , Continuous AND sodium chloride flush 0.9 % injection 3 mL, 3 mL, Intravenous, Q8H, Satya Francisco Carli, , 3 mL at 01/29/20 0914 LABS: Recent Labs 01/26/20 2101 01/28/20 0855 WBC 10.2 9.7 HGB 11.2* 10.9* PLT 286 243 Recent Labs 01/26/20 2101 01/28/20 0853 NA 138 136 K 3.7 3.8 CL 102 102 CO2 BUN 11 14 CREATININE 0.60 0.62 GLUCOSE [...] Messaged Dr Sanderson patients Heart cath from [facility] from 10/11/19 is on chart. * Raina Ferro RN - 01/28/2020 12:53 PM EDT Left message for Liza the deer farm worker that PT is recommending SNF at discharge. [phone] * Radha Nobles, PT - 01/28/2020 12:46 PM EDT Physical Therapy Facility/Department: [facility] CDU Initial Assessment NAME: Natalie Gerber : 1960 Date of Service: 01/28/2020 Discharge Recommendations: Subacute/Assisted Facility PT Equipment Recommendations Equipment Needed: No [...] (coronary artery disease), CHF (congestive heart failure) ([facility]), Depression, Diverticulitis, Diverticulosis, GERD (gastroesophageal reflux disease), History of pulmonary embolus (PE), Hyperlipidemia, Hypertension, IL, old, Myocardial infarct (HCC), myocardial infarction, LISA [...] assistance(uses rolator) Transfer Assistance: Needs assistance Active Ibm Mainframe Developer: No Occupation: On disability Additional Comments: Per [...] 8 Minutes(FA) Radha Nobles PT,GCS * Raina Ferro RN - 01/28/2020 10:48 AM EDT 22g left forearm discontinued at this time, was not flushing. * Raina Ferro RN - 01/28/2020 10:02 AM EDT Faxed release of information to [facility] for cath report at this time. [...] S Bonyo, DO 20 mg at 01/27/20 123 levothyroxine (SYNTHROID) tablet 25 mcg 25 mcg Oral Daily Hernadez S Bonyo, DO 25 mcg at 01/28/20626 QUEtiapine (SEROQUEL) tablet 100 mg 100 mg Oral Nightly Hernadez S Bonyo, DO 100 mg at 01/27/202050 atorvastatin (LIPITOR) tablet 10 mg 10 mg Oral Daily Hernadez S Bonyo, DO 10 mg at 01/27/20 205 carvedilol (COREG) tablet 25 mg 25 mg Oral BID WC Hernadez S Bonyo, DO 25 mg at 01/27/20 172 lisinopril (PRINIVIL;ZESTRIL) tablet 20 mg 20 mg Oral Daily Hernadez S Bonyo, DO 20 mg at 01/27/20 1010 furosemide (LASIX) tablet 20 mg 20 mg Oral BID Hernadez S Bonyo, DO 20 mg at 01/28/20626 tamsulosin (FLOMAX) capsule 0.4 mg 0.4 mg Oral Nightly Satya Francisco Bonyo, DO 0.4 mg at 01/27/202050 ibuprofen [...] Satya Francisco Bonyo, DO 12.5 mg at 01/27/202099 sodium chloride flush 0.9 % injection 3 [...] Patient would like to go to a half-way in [place]. Discharge planning: Pending/in progress SATYA BOYCE DO [...] - 01/27/2020 1:30 PM EDT TCC Elizabeth at * Debora Santizo RN - 01/27/2020 1:22 [...] new complaints. He is awaiting discharge to [facility]; No intake or output data [...] S Bonyo, DO, 20 mg at 03/25/19 111 citalopram (CELEXA) tablet 20 mg, 20 mg, [...] Bonyo, DO, 40 mg at 03/20/19 1356 QUEtiapine [...] Hernadez S Bonyo, DO, 100 mg at 03/24/19 195 LABS: No results for input(s): WBC, HGB, PLT in the last 72 hours. No results for input(s): NA, K, CL, CO2, BUN, CREATININE, GLUCOSE in the last 72 hours. No results for input(s): INR in the last 72 hours. Invalid input(s): PT No results for input(s): TROPONINI in the last 72 hours. Objective: Vitals: Vitals: 03/23/19 1825 03/23/19 1921 03/24/19 1933 03/24/191944 BP: (!) 152/76 124/81 (!) 142/77 Pulse: [...] 03/24/2019 11:20 AM EDT Physical Therapy Facility/Department: [facility]G Daily Treatment Note NAME: [...] of 19 steps. His resides in a half-way. Prognosis: Good;Fair PT Education: PT Role;Plan of [...] (coronary artery disease), CHF (congestive heart failure) ([facility]), Depression, Diverticulitis, Diverticulosis, GERD (gastroesophageal reflux disease), History of pulmonary embolus (PE), Hyperlipidemia, Hypertension, IL, old, Myocardial infarct (HCC), myocardial infarction, LISA on CPAP, Pain, Pneumonia, Suicide ([facility]), Thyroid disease, and Unspecified cerebral artery occlusion [...] stand up tall or lean down and fiber picker items due toback pain. He had back [...] 75 mg, 75 mg, Oral, Daily, Satya Boyce, , 75 mg at 03/23/19 0835 nitroGLYCERIN (NITROSTAT) [...] Hernadez S Bonyo, DO, 40 mg at 03/23/1927 oxyCODONE (ROXICODONE) immediate release tablet 5 mg, [...] 1960 Date of Service: 03/23/2019 Discharge Recommendations: Subacute/Assisted Facility Assessment Performance deficits / Impairments: Decreased [...] (coronary artery disease), CHF (congestive heart failure) ([facility]), Depression, Diverticulitis, Diverticulosis, GERD (gastroesophageal reflux disease), History of pulmonary embolus (PE), Hyperlipidemia, Hypertension, IL, old, Myocardial infarct (HCC), myocardial infarction, LISA on CPAP, Pain, Pneumonia, Suicide ([facility]), Thyroid disease, and Unspecified cerebral artery occlusion [...] Ambulation Assistance: Independent Transfer Assistance: Independent Active Ibm Mainframe Developer: No Mode of Transportation: Bus Occupation: Unemployed [...] Plan of Care supervision is transferred to [facility] Occupational Therapist. Goals and/or treatment plan [...] be monitored and followed by the diet assembly technician. * Juan Jose Arizmendi MD - [...] Hernadez S Pedroo, DO 81 mg at 03/21/19905 clopidogrel (PLAVIX) tablet 75 mg 75 mg Oral BID Hernadez S Pedroo, DO 75 mg at 03/21/191955 carvedilol (COREG) tablet 6.25 mg 6.25 mg Oral BID Hernadez S Bonyo, DO 6.25 mg at 03/21/191954 furosemide (LASIX) tablet 20 mg 20 mg Oral Daily Hernadez S Pedroo, DO 20 mg at 03/21/19906 citalopram (CELEXA) tablet 20 mg 20 mg Oral Daily Hernadez S Bonyo, DO 20 mg at 03/21/19906 atorvastatin (LIPITOR) tablet 20 mg 20 mg Oral Daily Hernadez S Bonyo, DO 20 mg at 03/21/191954 levothyroxine (SYNTHROID) tablet 25 mcg 25 mcg Oral Daily Hernadez S Bonyo, DO 25 mcg at 1955 lisinopril (PRINIVIL;ZESTRIL) tablet 2.5 mg 2.5 mg [...] Nightly Satya Vasquezo, DO 100 mg at 03/21/19 1956 LABS: [...] 03/21/2019 2:32 PM EDT Physical Therapy Facility/Department: [facility] 7W MED SURG Initial Assessment NAME: Natalie Gerber [...] (coronary artery disease), CHF (congestive heart failure) ([facility]), Depression, Diverticulitis, Diverticulosis, GERD (gastroesophageal reflux disease), History of pulmonary embolus (PE), Hyperlipidemia, Hypertension, IL, old, Myocardial infarct (HCC), myocardial infarction, ILSA on CPAP, Pain, Pneumonia, Suicide (HCC), Thyroid [...] Q5 Min PRN Hernadez S Bonyo, DO aspirin chewable tablet 81 mg 81 mg Oral Daily Hernadez S Bonyo, DO 81 mg at 03/21/19 09 clopidogrel (PLAVIX) tablet 75 mg 75 mg Oral BID Hernadez S Bonyo, DO 75 mg at 03/21/19 09 carvedilol (COREG) tablet 6.25 mg 6.25 mg Oral BID Hernadez S Bonyo, DO 6.25 mg at 03/21/19 09 furosemide (LASIX) tablet 20 mg 20 mg Oral Daily Hernadez S Bonyo, DO 20 mg at 03/21/19 09 citalopram (CELEXA) tablet 20 mg 20 mg Oral Daily Hernadez S Bonyo, DO 20 mg at 03/21/19 09 atorvastatin (LIPITOR) tablet 20 mg 20 mg Oral Daily Hernaedz S Bonyo, DO 20 mg at 03/20/192005 [...] PRN Satya Vasquezo, DO 5 mg at 03/21/19 1135 acetaminophen [...] 100 mg 100 mg Oral Nightly Satya Boyce, DO 100 mg at 03/20/19 5277 LABS: CBC with Differential: Lab Results Component [...] for Visit Chief Complaint LABWORK Chief Complaint CORRECTION LAB WOR K Chief Complaint Admit Date CORRECTION LAB WORK July 07, 2024 5:00am CORRECTION LAB WORK July 14 4:00am CORRECTION LAB WORK August 27, 2024 5 :00am Chief Complaint Admit Date CORRECTION LAB WORK July 07, 2024 5:00am CORRECTION LAB WORK July 14 4:00am CORRECTION LAB WORK August 27, 2024 5 :00am CORRECTION LAB WORK October 04, 2024 4:00 am [...] section and content) DATE CREATED AUTHOR 04/02/2018 [facility] DATE CREATED AUTHOR AUTHOR'S ORGANIZ ATION 05/24/2018 [facility] DATE CREATED AUTHOR AUTHOR'S ORGANIZ ATION 06/11/2018 [facility] DATE CREATED AUTHOR AUTHOR'S ORGANIZ ATION 06/12/2018 [facility] DATE CREATED AUTHOR AUTHOR'S ORGANIZ ATION 12/25/2018 [facility] DATE CREATED AUTHOR AUTHOR'S ORGANIZ ATION 03/31/2019 [facility] DATE CREATED AUTHOR AUTHOR'S ORGANIZ ATION 05/07/2019 [facility] DATE CREATED AUTHOR AUTHOR'S ORGANIZ ATION 05/11/2019 [facility] DATE CREATED AUTHOR AUTHOR'S ORGANIZ ATION 08/14/2019 [facility] ([place] DATE CREATED AUTHOR AUTHOR'S ORGANIZ ATION 10/18/2019 [facility] DATE CREATED AUTHOR AUTHOR'S ORGANIZ ATION 12/24/2019 [facility] DATE CREATED AUTHOR AUTHOR'S ORGANIZ ATION 01/28/2020 [facility] DATE CREATED AUTHOR AUTHOR'S ORGANIZ ATION 03/18/2020 [facility] DATE CREATED AUTHOR AUTHOR'S ORGANIZ ATION 06/25/2020 [facility] DATE CREATED AUTHOR AUTHOR'S ORGANIZ ATION 01/21/2023 [facility] DATE CREATED AUTHOR AUTHOR'S ORGANIZ ATION 01/06/2024 [facility] DATE CREATED AUTHOR AUTHOR'S ORGANIZ ATION 05/22/2024 [facility] DATE CREATED AUTHOR AUTHOR'S ORGANIZ ATION 01/26/2025 [facility] Reason for Visit (unrecogniz ed section [...] sided pressure sta rting this afternoon, hx [place]. denies SOB/ took three nitro at home [...] C/O pain d/t sciatica. Pt was at [facility] and fell in the parking lot, pt [...] or prosecute any alcohol or drug abuse patient.[facility] the event this information is protected by the Federal Confidentiality of Alcohol and Drug Abuse Patient Records regulations: The Federal rules restrict any use of the information to criminally investigate or prosecute any alcohol or drug abuse patient.[facility] Hospital[facility] the event this information is protected by the Federal Confidentiality of Alcohol and Drug Abuse Patient Records regulations: The Federal rules restrict any use of the information to criminally investigate or prosecute any alcohol or drug abuse patient.[facility] the event this information is protected by the Federal Confidentiality of Alcohol and Drug Abuse Patient Records regulations: The Federal rules restrict any use of the information to criminally investigate or prosecute any alcohol or drug abuse patient.[facility] Hospital[facility] the event this information is protected by the Federal Confidentiality of Alcohol and Drug Abuse Patient Records regulations: The Federal rules restrict any use of the information to criminally investigate or prosecute any alcohol or drug abuse patient.[facility] the event this information is protected by the Federal Confidentiality of Alcohol and Drug Abuse Patient Records regulations: The Federal rules restrict any use of the information to criminally investigate or prosecute any alcohol or drug abuse patient.[facility] Hospital[facility] the event this information is protected by the Federal Confidentiality of Alcohol and Drug Abuse Patient Records regulations: The Federal rules restrict any use of the information to criminally investigate or prosecute any alcohol or drug abuse patient.[facility] Hospital[facility] the event this information is protected by the Federal Confidentiality of Alcohol and Drug Abuse Patient Records regulations: The Federal rules restrict any use of the information to criminally investigate or prosecute any alcohol or drug abuse patient.[facility] Hospital[facility] the event this information is protected by the Federal Confidentiality of Alcohol and Drug Abuse Patient Records regulations: The Federal rules restrict any use of the information to criminally investigate or prosecute any alcohol or drug abuse patient.[facility] Hospital[facility] the event this information is protected by the Federal Confidentiality of Alcohol and Drug Abuse Patient Records regulations: The Federal rules restrict any use of the information to criminally investigate or prosecute any alcohol or drug abuse patient.[facility] HospitalIn the event this information is protected by the Federal Confidentiality of Alcohol and Drug Abuse Patient Records regulations: The Federal rules restrict any use of the information to criminally investigate or prosecute any alcohol or drug abuse patient.[facility] Care Teams (unrecognized sec tion and [...] August 27, 2024 End: August 27, 2024 [employer] Outside Sales Representative Relationship Specialty Start Date End Date Satya Boyce DO [address] [place] [phone] PCP - General Family Practice 04/22/18 [employer] Outside Sales Representative Relationship Specialty Start Date End Date Satya Boyce, DO [address] [place] [phone] PCP - General Family Medicine 04/22/18 [employer] Outside Sales Representative Relationship Specialty Start Date End Date Satya Boyce, [address] [place] [address] PCP - General Family Medicine 04/22/18 [employer] Outside Sales Representative Relationship Specialty Start Date End Date Satya Boyce, DO [address] [place] [phone] PCP - General Family Medicine 04/22/18 [employer] Outside Sales Representative Relationship Specialty Start Date End Date Satya Boyce DO [address] [place] [phone] PCP - General Family Medicine 04/22/18 [employer] Outside Sales Representative Relationship Specialty Start Date End Date Satya Boyce [address] [facility] [address] [place] [phone] PCP - [facility] 04/22/18 Team Status: Inactive Member Role Status Dates Dr. Satya Boyce DO Primary Care Provider Active Chuy العلي Attending Provider Active [employer] Outside Sales Representative Relationship Specialty Start Date End Date Satya Boyce [address] [facility] [address] [place] [phone] PCP - [facility] 04/22/18 [employer] Outside Sales Representative Relationship Specialty Start Date End Date Satya Boyce [address] [place], [place] [phone] PCP General 04/18/18 Team Status: Inactive Member Role [...] BE BASED ON THE PRIMARY CLINICAL RECORDS. [facility] provides no warranty or guarantee of the accuracy or completeness of information in this document.
== END | disposition home or self-care (01) ==
LOC: OLS.ACW200 05:00
PROVIDERS: PCP Family Medicine; Visit Provider Family Medicine
DX: E11.9 Type 2 diabetes mellitus without complications (principal); Z79.899 Other long term (current) drug therapy
CPT/HCPCS: 36415; 83036